=== PATIENT | female | born 2000 | race Caucasian/White ===

== ENCOUNTER 2024-01-17 17:25 | Outpatient (OUT) | payer MEDICAID, SELFPAY ==
--- NOTE | 2024-01-17 17:35 | US_ITS ---
The [address] [address] Patient Name: STEPHANIE ALLEN MRN: [id number] date: 2000 Sex: F Assigned Patient Location: Current Patient Location: Accession/Order Number: [id number] Exam Date: 01/17/2024 17:40 Report Date: 01/18/2024 07:45 At the request of: GUALBERTO VANN Procedure: US pelvis w/ transvaginal EXAM: Pelvic ultrasound HISTORY: . Amenorrhea,N91.2; Pelvic cramping,R10.2 . COMPARISON: None. TECHNIQUE: Transabdominal and transvaginal scanning was performed FINDINGS: Scanning of the pelvis demonstrates uterus to be anteverted and measures 9.2 x 3.4 x 5.9 cm. Endometrial complex measures 4 mm. Right ovary measures 3.9 x 1.7 x 2.3 cm. Color-flow is noted. No masses are noted. Left ovary measures 3.1 x 1.5 x 2.2 cm. Color-flow is noted. No masses are noted. There is a small amount of fluid in the cul-de-sac. US/US pelvis w/ transvaginal IMPRESSION: 1. Normal-appearing uterus and endometrial complex. 2. Normal ovaries. 3. Small amount of fluid in the cul-de-sac. Electronically authenticated by: CADEN WHITE Date: 01/18/2024 07:45
== END 2024-01-17 17:26 | disposition home or self-care (01) ==
LOC: US 17:30
PROVIDERS: PCP Family Medicine; Visit Provider Specialist
DX: N91.2 Amenorrhea, unspecified (principal); R10.2 Pelvic and perineal pain
CPT/HCPCS: 76830; 76856

== ENCOUNTER 2024-06-24 12:33 | Outpatient (OUT) | payer MEDICAID, SELFPAY ==
[2024-06-24 14:59] LABS: HCG Quantitative <1 mIU/mL
== END 2024-06-24 12:34 | disposition home or self-care (01) ==
PROVIDERS: PCP Family Medicine
DX: N91.2 Amenorrhea, unspecified (principal)
CPT/HCPCS: 36415; 84702

== ENCOUNTER 2024-07-01 13:33 | Outpatient (OUT) | payer MEDICAID, SELFPAY ==
[2024-07-01 15:04] LABS: HCG Quantitative <1 mIU/mL
== END 2024-07-01 13:34 | disposition home or self-care (01) ==
LOC: LAB 13:34
PROVIDERS: PCP Family Medicine; Visit Provider Specialist
DX: N91.2 Amenorrhea, unspecified (principal)
CPT/HCPCS: 36415; 84702

== ENCOUNTER 2024-07-02 10:45 | Outpatient (OUT) | payer MEDICAID, SELFPAY ==
--- NOTE | 2024-07-02 10:54 | US_ITS ---
[address] [address] Patient Name: STEPHANIE ALLEN MRN: [id number] date: 2000 Sex: F Assigned Patient Location: [facility] Current Patient Location: Accession/Order Number: [id number] Exam Date: 07/02/2024 10:56 Report Date: 07/03/2024 05:53 At the request of: GUALBERTO VANN Procedure: US pelvis w/ transvaginal EXAMINATION: US pelvis w/ transvaginal HISTORY: Pelvic Pain In Female R10.2 COMPARISON: Ultrasound pelvis 01/17/2024 TECHNIQUE: Transabdominal and/or transvaginal sonographic examination was performed as indicated by examination type. FINDINGS: UTERUS: Normal size and appearance. Uterus size: 7.7 x 3.3 x 4.9 cm ENDOMETRIUM: Normal homogeneous appearance. Endometrial thickness: 2 mm RIGHT OVARY: Normal size and appearance. Duplex Doppler demonstrates normal waveform and flow; resistive index 0.5. Ovary size: 3.0 x 1.2 x 2.1 cm LEFT OVARY: Normal size and appearance. Duplex Doppler demonstrates normal waveform and flow; resistive index 0.4. Ovary size: 3.0 x 1.8 x 1.9 cm CUL-DE-SAC: Unremarkable. No significant free fluid. BLADDER: Unremarkable. OTHER: None. US/US pelvis w/ transvaginal IMPRESSION: 1. Normal pelvic ultrasound. Electronically authenticated by: JESSICA GUPTA Date: 07/03/2024 05:53
== END 2024-07-02 10:46 | disposition home or self-care (01) ==
LOC: RAD 10:49
PROVIDERS: PCP Family Medicine; Visit Provider Specialist
DX: R10.2 Pelvic and perineal pain (principal)
CPT/HCPCS: 76830; 76856

== ENCOUNTER 2024-11-29 16:25 | Outpatient (OUT) | payer MEDICAID, SELFPAY ==
--- OUTSIDE RECORDS SUMMARY | 2024-11-29 16:34 | XMS_ITS | CCD ---
Author Organization [facility] Care Team Providers Care Iphone Developer Name Role Phone SREEKANTH JOHNSON Unavailable Unavailable SELF, REFERRED Unavailable Unavailable SELF, REFERRED Unavailable Unavailable LENA REDDY Unavailable Unavailable Margarita Chiu Attending Physician Unavailable Unavailable Primary Care Provider UnavailZully Andujar Unavailable Unavailable Primary Care Provider Unavailko ledesma Unavailable Primary Care Provider UnavailDIANNA Redmond Referring Unavailable DIANNA VILLA Attending Unavailable Wesly KEEN Attending Unavailable Wesly KEEN Attending Unavailable Katie THAPA Primary Care Unavailable MARGOT BLACKMAN Referring Unavailable MARGOT BLACKMAN Attending Unavailable Katie THAPA Primary Care Unavailable JOE AN Attending Unavailable Katie THAPA Primary Care Unavailable Katie THAPA Referring Unavailable ALANIS, DR Diane CASTILLO Attending Unavailable KAMAGUI, DR Diane CASTILLO Consulting Unavailable KAFTAN, DR Diane CASTILLO Primary Care Unavailable KAMARENAN, DR Diane CASTILLO Admitting Unavailable PAY ., DR SINGH Attending Unavailable PAY ., DR SINGH Consulting Unavailable PAY ., DR SINGH Admitting Unavailable KAMAGUI, DR Diane CASTILLO Primary Care Unavailable KAMAGUI, DR Diane CASTILLO Attending Unavailable KAMAGUI, DR Diane CASTILLO Consulting Unavailable ALANIS, DR Diane CASTILLO Primary Care Unavailable KAMAGUI, DR Diane CASTILLO Admitting Unavailable MISC, DR PATTEN Attending Unavailable MISC, DR PATTEN Consulting Unavailable MISC, DR PATTEN Admitting Unavailable KAMAGUI, DR Diane CASTILLO Primary Care Unavailable MISC, DR PATTEN Admitting Unavailable MISC, DR PATTEN Attending Unavailable MISC, DR PATTEN Consulting Unavailable ALANIS, DR Diane CASTILLO Primary Care Unavailable Crtalic IVETKerry Unavailable Arti Barahona Unavailable DO Katie Thapa Primary Care Provider MD Jona Vann Attending Provider [phone] DO Katie Thapa Primary Care Provider [phone] MD Jona Vann Attending Provider [phone] Patricia Salas Unavailable DO Katie Thapa Primary Care Provider [phone] MD Jona Vann Attending Provider DO Pérez Barcenas Attending Provider [phone] Pérez Barcenas Unavailable DO Katie Thapa Primary Care Provider MD Yung Nichols Jr Emergency Provider Unavailable Primary Care Provider UnavailJona Garza Attending Unavailable Katie Thapa Primary Care Unavailable Jona Vann Admitting Unavailable Jona Vann Attending Unavailable Katie Thapa Primary Care Unavailable Jona Vann Admitting Unavailable Jona Vann Attending Unavailable Katie Thapa Primary Care Unavailable Jona Vann Admitting Unavailable Yung Nichols Jr Attending Unavailable Katie Thapa Primary Care Unavailable Yung Nichols Jr Admitting Unavailable Katie Thapa Primary Care Unavailable Pérez Barcenas Admitting Unavailable Pérez Barcenas Attending Unavailable Anil Thapa DO Primary Care Provider ÁNGELA DELGADO Attending Unavailable ÁNGELA DELGADO Attending Unavailable SELF Referring Unavailable ÁNGELA DELGADO Attending Unavailable MARY ANN LEVIN Attending Unavailable CristobalKerry Coates RD Unavailable [phone] TIESHA RAI Attending Unavailable ANIL THAPA JR R Referring Unavailable KAFTAN JR, ANIL R Primary Care Unavailable TIESHA RAI Attending Unavailable ANIL THAPA JR R Referring Unavailable KAFTAN JR, ANIL R Primary Care Unavailable MICH VERDE Attending Unavailable KAFTAN JR, ANIL R Referring Unavailable KAFTAN JR, ANIL R Primary Care Unavailable TIESHA RAI Attending Unavailable ALANIS ROGER, ANIL R Referring Unavailable BONITAFTDENISSE ROGER, ANIL R Primary Care Unavailable MICH VERDE Attending Unavailable ALANIS ROGER, ANIL R Referring Unavailable KAFTAN JR, ANIL R Primary Care Unavailable VU, OSBALDO-CATIE Attending Unavailable KAMARENAN , ANIL R Referring Unavailable KAFTAN JR, ANIL R Primary Care Unavailable KAMARENAN JR, ANIL R Referring Unavailable KAFTAN JR, ANIL R Primary Care Unavailable MICH VERDE Attending Unavailable KAMARENAN JR, ANIL R Referring Unavailable KAFTAN JR, ANIL R Primary Care Unavailable Alanis Sky, Anil HERMOSILLO Primary Care Provider ANIL THAPA Attending Unavailable ANIL THAPA Referring Unavailable ANIL THAPA Attending Unavailable ANIL THAPA R Referring Unavailable JONA VANN Attending Unavailable JONA VANN Referring Unavailable HARMONY GERMAN Attending Unavailable ANIL THAPA Referring Unavailable RYANN ZHANG Attending Unavailable RYANN ZHANG Referring Unavailable HARMONY GERMAN Attending Unavailable JONA VANN Attending Unavailable ANIL THAPA Attending Unavailable JONA VANN Attending Unavailable CADEN THOMAS Attending Unavailable ALANIS ROGER, ANIL R Primary Care Unavailable VU, OSBALDO CATIE Attending Unavailable ALANIS ROGER, ANIL R Referring Unavailable KAMARENAN , ANIL R Primary Care Unavailable VU, OSBALDO-CATIE Attending Unavailable ALANIS ROGER, ANIL R Referring Unavailable KAMARENAN , ANIL R Primary Care Unavailable TIESHA RAI Referring Unavailable DIAAN , ANIL R Primary Care Unavailable EMILIA CONKLIN Attending Unavailable ALANIS ROGER, ANIL R Primary Care Unavailable MICH VERDE Admitting Unavailable MICH VERDE Attending Unavailable ALANIS ROGER, ANIL R Primary Care Unavailable MICH VERDE Referring Unavailable ALANIS ROGER, ANIL R Primary Care Unavailable ALANIS ROGER, ANIL R Referring Unavailable DIAAN , ANIL R Primary Care Unavailable VU, OSBALDO-CATIE Admitting Unavailable VU, OSBALDO-CATIE Attending Unavailable ALANIS ROGER, ANIL R Primary Care Unavailable Anil Thapa DO Primary Care Provider AKIKO ACOSTA Attending Unavailable ANIL THAPA Primary Care Unavailable ANIL THAPA R Primary Care Unavailable JONA VANN Referring Unavailable Alanis Sky, Anil HERMOSILLO Primary Care Provider U navailable Allergies Allergy Classification Reported Allergen(s) Allergy Type Date of Onset Reaction(s) Facility (1 source) lactose Drug Allergy 02-15-20 17 [facility] Repository (20 sources) Cyproheptadine; Translations: [CYPROHEPTADINE ] Drug Allergy 08-02-20 13 Diarrhea, Other: See Comments, Other (See Comments) [facility] (20 sources) Seasonal allergy; Translations: [SEASONAL ALLERGIES] Propensity to adverse reactions 12-25-19 10 [facility] (20 sources) Doxycycline; Translations: [DOXYCYCLINE] Drug Allergy 11-29-19 22 Other: See Comments, rash, Dizziness, Dizziness or Vertigo, Other (See Comments) [facility] Work Phone: (20 sources) Penicillin G; Translations: [PENICILLIN G SODIUM] Drug Allergy 11-29-19 22 Rash [facility] Work Phone: (20 sources) Penicillins; Translations: [Penicillins] Allergy to substance 08-03-20 23 Unknown Reaction, Unknown Reaction, rash [facility] (20 sources) Azithromycin; Translations: [azithromycin] Drug Allergy 08-17-20 23 Unknown Reaction [facility] (20 sources) oxyCODONE; Translations: [oxycodone] Drug Allergy 08-17-20 23 Palpitations [facility] (5 sources) Penicillin Drug Allergy rash BAUNAT Other (1 source) Doxycycline Drug Allergy 06-27-20 24 [facility] Repository (17 sources) Penicillin G sodium Allergy to substance 11-29-19 22 Rash [facility] (20 sources) Levonorgestrel- Ethinyl Estrad; Translations: [LEVONORGESTREL -ETHINYL ESTRAD] Drug Intolerance 12-25-19 10 Other (See Comments) [facility] (10 sources) Pollen; Translations: [POLLEN EXTRACTS] Propensity to adverse reactions to drug (disorder) 08-20-20 24 Other (See Comments) [facility] Repository Medications Current Medications Medication Drug Class(es) Dates Sig (Normalized) Sig (Original) acetaminophen 250 mg / aspirin 250 mg / caffeine 65 mg oral tablet (2 sources) Platelet Aggregation Inhibitor, Nonsteroidal Anti-inflammatory Drug, Central Nervous System Stimulant, Methylxanthine take 2 tablets by mouth every twenty-four hours Excedrin Migraine 250-250-65 MG 2 tablets Orally Once a day Active acetaminophen 325 mg / HYDROcodone bitartrate 5 mg oral tablet (2 sources) Opioid Agonist Start: 08-27-2024 End: 08-30-2024 HYDROcodone-acet aminophen (NORCO) 5-325 mg per tablet Indications: Acute post-operative pain Take 1 tablet by mouth every 4 (four) hours as needed for pain for up to 3 days. Max Daily Amount: 6 tablets 18 tablet 08/27/2024 08/30/2024 Active Start: 06-28-2024 take 1 tablet by tucker th every six hours Hydrocodone-Acetaminophen Active 1 - 2 T AB PO Q6H 15 June 28, 2024 adapalene 0.001 mg/mg topical gel (7 sources) Retinoid Start: 08-16-2023 adapalene (DIF FERIN) 0.1 % gel Indications: Acne vulgaris Apply to all acne-prone areas at bedtime. 45 g 5 08/16/2023 Active Comment on above: Apply to all acne-pr one areas at bedtime. betamethasone 0.5 mg/ml / clotrimazole 10 mg/ml topical cream (13 sources) Azole Antifungal, Corticosteroid Start: 12-26-2023 End: 01-25-2024 clotrimazole-betamet hasone (LOTRISONE) cream Apply 1 application to affected area two times a day. 45 g 11 12/26/2023 01/25/2024 Active Start: 06-27-2023 End: 08-20-2024 clotrimazole-betamethasone ( LOTRISONE) cream Indications: Otomycosis Apply 1 Application topically in the morning and 1 Application before bedtime. Apply to external auditory canals twice daily for 1 week then twice weekly thereafter.. 30 g 3 06/27/2023 08/20/2024 Discontinued (Therapy completed) Comment on above: Apply 1 application to affected area two times a day. cephalexin 500 mg oral capsule (15 sources) Cephalosporin Antibacterial Start: take 1000 mg by mouth twice daily Cephalexin Active 1000 MG PO Twice daily 05 05June 28, 2024 12:00am Start: 12-01-2021 End: 08-20-2022 cephALEXin (KEFLEX) 500 mg c apsule Take 500 capsules by mouth as needed. 0 12/01/2021 08/20/2022 Discontinued (Course of therapy completed) Comment on above: Take 500 capsules by mouth as needed. ciprofloxacin 500 mg oral tablet (1 source) Quinolone Antimicrobial Start: 10-29-19 End: 11-03-19 take 1 tablet by mouth in the morning ciprofloxacin (Cipro) 500 MG tablet Indications: Acute vaginitis Take 1 tablet (500 mg) by mouth in the morning and 1 tablet (500 mg) before bedtime. Do all this for 5 days. 10 tablet 1 10/29/2024 11/03/2024 Active ciprofloxacin 3 mg/ml / dexamethasone 1 mg/ml otic suspension (3 sources) Corticosteroid, Quinolone Antimicrobial Start: 03-18-20 End: 03-23-20 ciprofloxacin-dexAME THasone (CIPRODEX) otic suspension Indications: Otomycosis , Dysfunction of right eustachian tube , Acute right otitis media Administer 4 drops into both ears in the morning and 4 drops before bedtime. Do all this for 5 days. 7.5 mL 03/18/2024 03/23/2024 Active Start: 06-09-2023 Ciprofloxacin- dexAMETHasone 0.3-0.1 % 4 drops into affected ear Otic Twice a day for 7 days Jun, Not-Taking/PRN clindamycin 10 mg/ml topical solution (20 sources) Lincosamide Antibacterial Start: 10-13-2024 clindamycin (Cleocin T) 1 % external solution APPLY TO AFFECTED AREAS ON FACE ONCE A DAY 10/13/2024 Active Start: 12-26-2023 End: 09-12-2024 clindamycin (CLEOCIN) 1 % ex ternal solution Indications: Acne vulgaris APPLY TO AFFECTED AREAS ON FACE ONCE A DAY 60 mL 3 09/12/2024 Active Start: 09-12-2022 End: 05-05-2023 clindamycin (CLEOCIN) 1 % ex ternal solution Indications: Acne vulgaris Apply to the affected area of face once daily. 60 mL 5 05/05/2023 Active Start: 08-17-2022 End: 08-20-2024 clindamycin (CLEOCIN T) 1 % lotion Apply 1 application. topically in the morning. 08/17/2022 08/20/2024 Discontinued (Therapy completed) Start: 06-01-2022 End: 08-17-2022 clindamycin (CLEOCIN) 1 % ex ternal solution Indications: Acne vulgaris Apply to the affected area of acne twice daily. 60 mL 5 06/01/2022 08/17/2022 Discontinued Start: 03-17-2022 End: 09-12-2022 Clindamycin Phosphate (CLEOC IN T) 1 % lotion Indications: Acne vulgaris Apply to facial area daily at bedtime. 60 mL 5 08/17/2022 09/12/2022 Discontinued (Side Effects) Start: 08-30-2021 End: 03-17-2022 clindamycin (CLEOCIN) 1 % ex ternal solution Indications: Acne vulgaris Apply to the affected area once daily in the morning. 60 mL 5 03/16/2022 03/17/2022 Discontinued clindamycin (CASTILLO OCIN T) 1 % external solution Apply 1 Application topically nightly. Active Clindamycin Phos phate Active Comment on above: Apply to the affecte d area once daily in the morning. Apply to facial area daily in the morning Apply to the affecte d area of acne twice daily. Apply to facial area daily at bedtime. Apply to the affecte d area of face once daily in AM Apply to the affecte d area of face once daily. Condoms - Male misc (2 sources) Start: 10-29-2024 Condoms - Male misc Indications: Acute vaginitis 1 Units Daily 10 Units 2 10/29/2024 Active dapsone 0.05 mg/mg topical gel (7 sources) Sulfone Start: 05-05-2023 End: 05-04-2024 Dapsone (ACZONE) 5 % gel Indications: Acne vulgaris Apply to affected area every morning. 60 g 5 05/05/2023 05/04/2024 Active Start: 01-04-2023 Dapsone (ACZON E) 5 % gel Indications: Acne vulgaris Apply to affected area every morning. 60 g 3 01/04/2023 Active Comment on above: Apply to affected ar ea every morning. fluticasone propionate 0.05 mg/actuat metered dose nasal spray (1 source) Corticosteroid Start: take 1 spray(s) nasal route once daily Fluticasone Propionate 50 MCG/ACT 1 spray in each nostril Nasally Once a day for 14 day(s) Jun, Active ibuprofen 600 mg oral tablet (10 sources) Nonsteroidal Anti-inflammatory Drug Start: take 600 mg by mouth every eight hours Ibuprofen Active 600 MG PO Q8H June 28, 2024 12:00am Start: 08-17-2023 End: 06-27-2024 take 800 mg by mouth every six hours Ibuprofen Discontinued 800 MG PO Q6H August 17, 2023 1:00am June 27, 2024 10:19pm Start: 09-19-2017 End: 08-03-2023 Ibuprofen Discontinued 600 M G PO Q8H September 19, 2017 1:00am August 03, 2023 4:04pm do not exceed 4 doses in a 24 hour period 24 hr methylphenidate hydrochloride 18 mg extended release oral tablet (20 sources) Central Nervous System Stimulant Start: 09-18-2024 End: 10-21-2024 take 1 tablet by mouth in the morning methylphenidate ER (Concerta) 18 MG CR tablet Indications: Attention deficit hyperactivity disorder (ADHD), combined type (CMS/HCC) Take 1 tablet (18 mg) by mouth in the morning. Do not crush, chew, or split.. 30 tablet 10/21/2024 Active Start: 05-17-2024 End: 08-16-2024 take 1 tablet by mouth in the morning methylphenidate ER (Concerta) 18 MG CR tablet Indications: Attention deficit hyperactivity disorder (ADHD), combined type (CMS/HCC) Take 1 tablet (18 mg) by mouth in the morning. Do not crush, chew, or split.. 30 tablet 06/17/2024 Active Start: 12-19-2023 End: 01-18-2024 take 1 tablet by mouth once daily methylphenidate HCl (CONCERTA) 18 mg CR tablet Take 1 tablet (18 mg total) by mouth daily. 0 12/19/2023 01/18/2024 Active Comment on above: Take 18 mg by mouth once daily. methylPREDNISolone (5 sources) Corticosteroid Start : 09-03 methylPREDNISolone (MEDROL, BR[place]FORD,) 4 mg tablet Indications: Tongue swelling follow package directions 21 tablet 09/03/2024 Active metroNIDAZOLE 500 mg oral tablet (2 sources) Nitroimidazole Antimicrobial Start : 08-17 End: 08-24 take 1 tablet by mouth in the morning, then take 1 tablet by mouth at bedtime metroNIDAZOLE (FLAGYL) 500 mg tablet Take 1 tablet (500 mg total) by mouth in the morning and 1 tablet (500 mg total) before bedtime. 08/17/2024 08/24/2024 Active ondansetron 4 mg disintegrating oral tablet (20 sources) Serotonin-3 Receptor Antagonist Start : 11-16 take 1 tablet by mouth every eight hours as needed for nausea and vomiting ondansetron ODT (Zofran-ODT) 4 MG disintegrating tablet Take 4 mg by mouth every 8 (eight) hours if needed for nausea or vomiting 11/16/2024 Active Start: 11-16-2024 take 1 tablet by tucker th three times daily as needed for nausea ondansetron (ZOFRAN-ODT) 4 MG disintegrating tablet Take 1 tablet by mouth 3 times daily as needed for Nausea or Vomiting 21 tablet 11/16/2024 Active Start: 11-16-2024 End: 11-16-2024 4 mg, IntraVENous, ONCE, 1 d ose, On 11/16/24 at 0115 Start: 09-23-2023 End: 08-20-2024 take 1 tablet by mouth every eight hours as needed for nausea ondansetron ODT (ZOFRAN ODT) 4 mg disintegrating tablet Dissolve 1 tablet (4 mg total) on tongue every 8 (eight) hours as needed for nausea for up to 10 doses. 10 tablet 09/23/2023 08/20/2024 Discontinued (Therapy completed) Start: 12-15-2021 End: 08-20-2022 take 1 tablet by mouth every four hours as needed ondansetron orally disintegrating (ZOFRAN ODT) 4 mg disintegrating tablet DISSOLVE 1 TABLET IN MOUTH EVERY 4 HOURS NEEDED 0 12/15/2021 08/20/2022 Discontinued Start: 12-01-2021 End: 08-03-2023 take 4 mg by mouth every six hours Ondansetron Discontinued 4 MG PO Q6H December 01, 2021 1:00am August 03, 2023 4:04pm Start: 11-30-2021 End: 08-03-2023 take 4 mg by mouth every eight hours Ondansetron Discontinued 4 MG PO Q8H November 30, 2021 1:00am August 03, 2023 4:04pm Comment on above: DISSOLVE 1 TABLET IN MOUTH EVERY 4 HOURS NEEDED pimecrolimus 10 mg/ml topical cream (20 sources) Calcineurin Inhibitor Immunosuppressant Start: 2021 pimecrolimus (ELIDEL) 1 % cream Indications: Other eczema APPLY 2 TIMES DAILY TO FACIAL AREAS NEEDED FOR RASH/ITCHING 30 g 3 09/12/2022 Active Comment on above: APPLY 2 TIMES DAILY TO FACIAL AREAS NEEDED FOR RASH/ITCHING sulfacetamide sodium 100 mg/ml / sulfur 50 mg/ml topical lotion (7 sources) Sulfonamide Antibacterial Start: 2022 Sulfacetamide Sodium-Sulfur 10-5 % (w/w) lotn Indications: Acne vulgaris Apply to all acne-prone areas twice daily 60 g 5 08/16/2023 Active Comment on above: Apply to all acne-pr one areas twice daily sulfamethoxazole 800 mg / trimethoprim 160 mg oral tablet (1 source) Dihydrofolate Reductase Inhibitor Antibacterial, Sulfonamide Antimicrobial Start: 2023 End: 2023 take 1 tablet by mouth once in the morning sulfamethoxazole-tr imethoprim (BACTRIM DS) 800-160 mg per tablet Take 1 tablet by mouth in the morning and 1 tablet before bedtime. Do all this for 7 days. 14 tablet 03/07/2024 03/14/2024 Active terbinafine 250 mg oral tablet (3 sources) Allylamine Antifungal Start: 2023 End: 2023 take 1 tablet by mouth once daily terbinafine HCl (LAMISIL) 250 mg tablet Take 1 tablet by mouth once daily. 90 tablet 0 11/21/2023 02/19/2024 Active Comment on above: Take 1 tablet by tucker once daily. terconazole 4 mg/ml vaginal cream (3 sources) Azole Antifungal Start: 2024 End: 2024 terconazole (Terazol 7) 0.4 % vaginal cream Indications: Vulvovaginal Candidiasis Insert 1 applicator into the vagina at bedtime for 7 days 45 g 2 10/23/2024 10/30/2024 Active triamcinolone acetonide 1 mg/ml topical cream (4 sources) Corticosteroid Start: 2024 triamcinolone (Kenalog) 0.1 % cream Indications: Vaginal burning Apply topically 2 (two) times a day 30 g 2 10/23/2024 Active Completed/Discontinued Medications Medication Drug Class(es) Dates Sig (Normalized) Sig (Original) acetaminophen 325 mg / butalbital 50 mg / caffeine 40 mg oral capsule (5 sources) Barbiturate, Central Nervous System Stimulant, Methylxanthine Start: 11-30-2021 End: 08-03-2023 take 1 capsule by mouth every six hours Butalbital-Acetamin ophen-Caff Discontinued 1 CAP PO Q6H November 30, 2021 1:00am August 03, 2023 4:04pm 12 hr acetaZOLAMIDE 500 mg extended release oral capsule (5 sources) Carbonic Anhydrase Inhibitor Start: 11-17-2022 End: 06-01-2023 acetaZOLAMIDE SR (DIAMOX SEQUELS) 500 mg capsule Take 1 at bedtime. Can increase to bid after 1 month only if needed 60 capsule 5 11/17/2022 06/01/2023 Discontinued Comment on above: Take 1 at bedtime. C an increase to bid after 1 month only if needed amoxicillin 500 mg oral capsule (2 sources) Penicillin-class Antibacterial Start: 06-09-2023 take 1 capsule by mouth every eight hours Amoxicillin 500 MG 1 capsule Orally three times a day for 10 day(s) Jun, Not-Taking/PRN azithromycin 500 mg oral tablet (5 sources) Macrolide Antimicrobial Start: 08-03-2023 End: 08-17-2023 take 1 tablet by mouth once daily Azithromycin (Zithromax) 500 mg tablet Discontinued 500 MG PO Daily 7 7 August 03, 2023 12:00am August 17, 2023 4:57pm cetirizine hydrochloride 10 mg oral tablet (5 sources) Histamine-1 Receptor Antagonist Start: 03-05-2024 End: 07-17-2024 take 1 tablet by mouth once daily as needed cetirizine (ZyrTEC) 10 MG tablet Indications: Rash and nonspecific skin eruption TAKE 1 TABLET (10 MG) BY MOUTH DAILY NEEDED 30 tablet 03/05/2024 07/17/2024 Discontinued ciclopirox 80 mg/ml topical solution (14 sources) Start: 11-29-2021 End: 08-20-2022 Ciclopirox (LOPROX) 8 % solution APPLY 1 APPLICATION EXTERNALLY EVERY DAY 0 11/29/2021 08/20/2022 Discontinued Comment on above: APPLY 1 APPLICATION EXTERNALLY EVERY DAY cyclobenzaprine hydrochloride 10 mg oral tablet (14 sources) Muscle Relaxant Start: 11-29-2021 End: 08-20-2022 take 1 tablet by mouth three times daily cyclobenzaprine (FLEXERIL) 10 mg tablet Take 10 mg by mouth three times daily. 0 11/29/2021 08/20/2022 Discontinued (Course of therapy completed) Comment on above: Take 10 mg by mouth three times daily. diphenhydrAMINE hydrochloride 25 mg oral capsule (14 sources) Histamine-1 Receptor Antagonist Start: 12-22-2021 End: 08-20-2022 take 1-2 capsules by mouth at bedtime diphenhydrAMINE (BENADRYL) 25 mg capsule Take 1-2 po at bedtime 60 capsule 5 12/22/2021 08/20/2022 Discontinued (Course of therapy completed) Comment on above: Take 1-2 po at bedti me doxycycline monohydrate 100 mg oral tablet (3 sources) Tetracycline-class Drug Start: 08-17-2022 End: 09-12-2022 take 1 tablet by mouth once daily doxycycline monohydrate 100 mg tablet Indications: Acne vulgaris Take 1 tablet by mouth once daily. 30 tablet 1 08/17/2022 09/12/2022 Discontinued (Side Effects) Comment on above: Take 1 tablet by tucker once daily. 2 ml droperidol 2.5 mg/ml injection (1 source) Dopamine-2 Receptor Antagonist Start: 11-16-2024 End: 11-16-2024 1.25 mg, IntraVENous, ONCE, 1 dose, On 11/16/24 at 0215 Start: 11-16-2024 End: 11-16-2024 1.25 mg, IntraVENous, ONCE, 1 dose, On 11/16/24 at 0215 Ethinyl Estradiol / Levonorgestrel (14 sources) Progestin, Estrogen, Progestin-containing Intrauterine Device Start: 11-29-2021 End: 08-20-2022 take 0.02 tablet by mouth once daily BALCOLTRA 0.1 mg-0.02 mg (21)/36.5 mg(7) tab Take 1 tablet by mouth once daily. 0 11/29/2021 08/20/2022 Discontinued (Course of therapy completed) Start: 11-29-2021 take 0.02 tablet by mouth once daily BALCOLTRA 0.1 mg-0.02 mg (21)/36.5 mg(7) tab Take 1 tablet by mouth once daily. 0 11/29/2021 Active Comment on above: Take 1 tablet by tukcer once daily. iopamidol (ISOVUE-370) 76 % injection 75 mL (1 source) Start: End: take 1 dose intravenously once 75 mL, IntraVENous, IMG ONCE PRN, 1 dose, Starting on 11/16/24 at 0134, Until 11/16/24 at 0153, Other 1 ml ketorolac tromethamine 15 mg/ml cartridge (15 sources) Nonsteroidal Anti-inflammatory Drug, Cyclooxygenase Inhibitor Start: End: 15 mg, IntraVENous, ONCE, 1 dose, On 11/16/24 at 0115, Do not administer for more than 5 days. Start: 12-15-2021 End: 08-20-2022 take 1 tablet by mouth once daily keTORolac (TORADOL) 10 mg tablet Take 10 mg by mouth once daily. 0 12/15/2021 08/20/2022 Discontinued (Course of therapy completed) Comment on above: Take 10 mg by mouth once daily. 1 ml medroxyPROGESTERone acetate 150 mg/ml prefilled syringe (15 sources) Progestin Start: 0 End: medroxyPROGESTERone (DEPO-PROVERA) 150 mg/mL INJECT 1ML INTRAMUSCULARLLY EVERY 12 WEEKS 0 06/11/2020 08/20/2022 Discontinued (Course of therapy completed) medroxyPROGESTER one Acetate Active Comment on above: INJECT 1ML INTRAMUSC ULARLLY EVERY 12 WEEKS methylergonovine maleate 0.2 mg oral tablet (5 sources) Ergot Derivative Start: 2022 End: 2022 take 1 tablet by mouth three times daily Methylergonovine (Methergine) 0.2 mg tablet Discontinued 0.2 MG PO Three times daily 6 2 August 03, 2023 12:00am August 17, 2023 4:57pm minocycline 100 mg oral capsule (16 sources) Tetracycline-class Drug Start: 2021 End: 2021 take 1 capsule by mouth twice daily minocycline (MINOCIN) 100 mg capsule Indications: Acne vulgaris Take 1 capsule by mouth twice daily. 60 capsule 5 06/01/2022 08/17/2022 Discontinued Start: 02-19-2021 End: 01-07-2022 take 1 capsule by mouth twice daily minocycline (MINOCIN) 100 mg capsule Indications: Acne vulgaris Take 1 capsule by mouth twice daily. 60 capsule 5 01/07/2022 Active Minocycline HCl Active Comment on above: Take 1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 Monocytes/100 WBC (Bld) 4 % Normal 4-8 M [facility] Comment on above: Performed By: #### L IP, TROPI, CDP, HCG, CP #### [facility] [address] [place], [place] [phone] Drone Pilot: Caden Brown MD Neutrophil (Seg) 81 % High 47-75 [facility] Comment on above: Performed By: #### L IP, TROPI, CDP, HCG, CP #### [facility] [address] [place] [address] Drone Pilot: Caden Brown MD Platelet mean volume (Bld) [Entitic vol] 9.6 fL Normal 6.0-12.0 [facility] Comment on above: Performed By: #### L IP, TROPI, CDP, HCG, CP #### [facility] [address] [place] [phone] Drone Pilot: Caden Brown MD Platelets (Bld) [#/Vol] 243 10*3/uL Normal 140-450 [facility] Comment on above: Performed By: #### L IP, TROPI, CDP, HCG, CP #### [facility] [address] [place] [address] [phone] Drone Pilot: Caden Brown MD RBC (Bld) [#/Vol] 4.79 10*6/uL Normal 4.00-5.20 [facility] Comment on above: Performed By: #### L IP, TROPI, CDP, HCG, CP #### [facility] [address] [place] [address] [phone] Drone Pilot: Caden Brown MD WBC (Bld) [#/Vol] 11.8 10*3/uL High 3.5-11.0 [facility] Comment on above: Performed By: #### L IP, TROPI, CDP, HCG, CP #### [facility] [address] [place] [address] Drone Pilot: Caden Brown MD [facility] Albumin [Mass/Vol] 4.5 g/dL 3.5 - 5.2 g/dL [facility] ALP [Catalytic activity/Vol] 80 U/L 35 - 104 U/L [facility] ALT [Catalytic activity/Vol] 17 U/L 5 - 33 U/L [facility] Anion gap [Moles/Vol] 16 mmol/L 9 - 17 mmol/L [facility] AST [Catalytic activity/Vol] 19 U/L NINF - 32 U/L [facility] Bilirubin [Mass/Vol] 1.3 mg/dL High 0.3 - 1 .2 mg/dL [facility] Calcium [Mass/Vol] 9.7 mg/dL 8.6 - 10. 4 mg/dL [facility] Chloride [Moles/Vol] 101 mmol/L 98 - 10 7 mmol/L [facility] CO2 [Moles/Vol] 21 mmol/L 20 - 31 mmol/L [facility] Creatinine [Mass/Vol] 0.7 mg/dL 0.5 - 0.9 mg/dL [facility] Est, Glom Filt Rate - PINF [facility] Comment on above: These results are not intended for use in patients <18 years of age. eGFR results are calculated without a race factor using the 2020 CKD-EPI equation. Careful clinical correlation is recommended, particularly when comparing to results calculated using previous equations. The CKD-EPI equation is less accurate in patients with extremes of muscle mass, extra-renal metabolism of creatine, excessive creatine ingestion, or following therapy that affects renal tubular secretion. Glucose [Mass/Vol] 94 mg/dL 70 - 99 mg/dL [facility] Interpretation and review of laboratory results Abnormal [facility] Potassium [Moles/Vol] 3.2 mmol/L Low 3.7 - 5.3 mmol/L [facility] Protein [Mass/Vol] 7.4 g/dL 6.4 - 8.3 g/dL [facility] Sodium [Moles/Vol] 138 mmol/L 135 - 144 mmol/L [facility] Urea nitrogen [Mass/Vol] 15 mg/dL 6 - 20 mg/dL [facility] Urea nitrogen/Creatinine [Mass ratio] 21 mg/mg High 9 - 20 [facility] COVID-19, Rapidon 11-16-2024 SARS-CoV-2 (COVID-19) RdRp gene JANET+probe Ql (Resp) Not detected Not Detected [facility] Comment on above: Rapid NAAT: The specimen is NEGATIVE for SARS-CoV-2, the novel coronavirus associated with COVID-19. The ID NOW COVID-19 assay is designed to detect the virus that causes COVID-19 in patients with signs and symptoms of infection who are suspected of COVID-19. An individual without symptoms of COVID-19 and who is not shedding SARS-CoV-2 virus would expect to have a negative (not detected) result in this assay. Negative results should be treated as presumptive and, if inconsistent with clinical signs and symptoms or necessary for patient management, should be tested with an alternative molecular assay. Negative results do not preclude SARS-CoV-2 infection and should not be used as the sole basis for patient management decisions. Methodology: Isothermal Nucleic Acid Amplification Specimen Description .NASOPHARYNGEAL SWAB [facility] CT ABDOMEN PELVIS W IV CONTR Mejia 11-16-2024 CT ABDOMEN PELVIS W IV CONTRAST EXAMINATION: CT ABDOMEN PELVIS W IV CONTRAST, 11/16/2024 1:55 AM EST HISTORY: diffuse abd pain, rad to chest, n/v COMPARISON: None. TECHNIQUE: CT scan of the abdomen and pelvis was performed with IV contrast. CT dose reduction technique was used, including Automated Exposure Control. FINDINGS: The lung bases are clear. No fracture, malalignment, or other acute bony abnormality is seen. Mild focal fatty infiltration is noted in the left hepatic lobe medial segment, adjacent to the falciform ligament, of doubtful clinical significance. The liver, spleen, pancreas, adrenals, and kidneys are otherwise normal. The gallbladder is visualized. Fluid is noted throughout the lumen of the colon, including in the distal colon and rectum, which may be seen in patients with diarrhea. No bowel obstruction or bowel dilatation. Prior appendectomy appears to been performed. No sign of diverticulitis, appendicitis, or other acute inflammatory process. No abnormal fluid collection or free fluid. No enlarged lymph nodes. No aortic aneurysm or dissection. IMPRESSION: 1. Fluid throughout the lumen of the colon, including in the distal colon and rectum, which may be seen in patients with diarrhea. No bowel obstruction. 2. Otherwise normal CT, following prior appendectomy. No sign of diverticulitis, appendicitis, or other acute inflammatory process. IMPRESSION: Interpreted by: Сергей Cobian MD Signed by: Сергей Cobian MD 11/16/24 Final result Normal [facility] CT Abdomen and Pelvis W cont rast [place] 11-16-2024 1. Fluid throughout the lumen of the colon, including in the distal colon and rectum, which may be seen in patients with diarrhea. No bowel obstruction. 2. Otherwise normal CT, following prior appendectomy. No sign of diverticulitis, appendicitis, or other acute inflammatory process. IMPRESSION: [facility] CONSOLIDATED EXAMINATION: CT ABDOMEN PELVIS W IV CONTRAST, 11/16/2024 1:55 AM EST HISTORY: diffuse abd pain, rad to chest, n/v COMPARISON: None. TECHNIQUE: CT scan of the abdomen and pelvis was performed with IV contrast. CT dose reduction technique was used, including Automated Exposure Control. FINDINGS: The lung bases are clear. No fracture, malalignment, or other acute bony abnormality is seen. Mild focal fatty infiltration is noted in the left hepatic lobe medial segment, adjacent to the falciform ligament, of doubtful clinical significance. The liver, spleen, pancreas, adrenals, and kidneys are otherwise normal. The gallbladder is visualized. Fluid is noted throughout the lumen of the colon, including in the distal colon and rectum, which may be seen in patients with diarrhea. No bowel obstruction or bowel dilatation. Prior appendectomy appears to been performed. No sign of diverticulitis, appendicitis, or other acute inflammatory process. No abnormal fluid collection or free fluid. No enlarged lymph nodes. No aortic aneurysm or dissection. [facility] RIS CONSOLIDATED Сергей Cobian MD - 11/16/2024 EXAMINATION: CT ABDOMEN PELVIS W IV CONTRAST, 11/16/2024 1:55 AM EST HISTORY: diffuse abd pain, rad to chest, n/v COMPARISON: None. TECHNIQUE: CT scan of the abdomen and pelvis was performed with IV contrast. CT dose reduction technique was used, including Automated Exposure Control. FINDINGS: The lung bases are clear. No fracture, malalignment, or other acute bony abnormality is seen. Mild focal fatty infiltration is noted in the left hepatic lobe medial segment, adjacent to the falciform ligament, of doubtful clinical significance. The liver, spleen, pancreas, adrenals, and kidneys are otherwise normal. The gallbladder is visualized. Fluid is noted throughout the lumen of the colon, including in the distal colon and rectum, which may be seen in patients with diarrhea. No bowel obstruction or bowel dilatation. Prior appendectomy appears to been performed. No sign of diverticulitis, appendicitis, or other acute inflammatory process. No abnormal fluid collection or free fluid. No enlarged lymph nodes. No aortic aneurysm or dissection. IMPRESSION: 1. Fluid throughout the lumen of the colon, including in the distal colon and rectum, which may be seen in patients with diarrhea. No bowel obstruction. 2. Otherwise normal CT, following prior appendectomy. No sign of diverticulitis, appendicitis, or other acute inflammatory process. IMPRESSION: [facility] Radiology Study observation (narrative) [facility] Comp Metabolic Profon 2024 Albumin [Mass/Vol] 4.5 g/dL Normal 3.5-5.2 [facility] Comment on above: Performed By: #### L IP, TROPI, CDP, HCG, CP #### [facility] [address] [place] [address] Drone Pilot: Caden Brown MD Alkaline Phos 80 U/L Normal 35-104 [facility] Comment on above: Performed By: #### L IP, TROPI, CDP, HCG, CP #### [facility] [address] [place] [address] Drone Pilot: Caden Brown MD ALT [Catalytic activity/Vol] 17 U/L Normal 5-33 [facility] Comment on above: Performed By: #### L IP, TROPI, CDP, HCG, CP #### [facility] [address] [place], [place] [phone] Drone Pilot: Caden Brown MD Anion gap [Moles/Vol] 16 mmol/L Normal 9-17 [facility] Comment on above: Performed By: #### L IP, TROPI, CDP, HCG, CP #### [facility] [address] [place], [place] [phone] Drone Pilot: Caden Brown MD AST [Catalytic activity/Vol] 19 U/L Normal <32 [facility] Comment on above: Performed By: #### L IP, TROPI, CDP, HCG, CP #### [facility] [address] [place], [place] [phone] Drone Pilot: Caden Brown MD Bilirubin [Mass/Vol] 1.3 mg/dL High 0.3-1.2 [facility] Comment on above: Performed By: #### L IP, TROPI, CDP, HCG, CP #### [facility] [address] [place] [address] Drone Pilot: Caden Brown MD BUN/CRE Ratio 21 High 9-20 [facility] Comment on above: Performed By: #### L IP, TROPI, CDP, HCG, CP #### [facility] [address] [place] [address] Drone Pilot: Caden Brown MD Calcium [Mass/Vol] 9.7 mg/dL Normal 8.6-10.4 [facility] Comment on above: Performed By: #### L IP, TROPI, CDP, HCG, CP #### [facility] [address] [place], [place] [phone] Drone Pilot: Caden Brown MD Chloride [Moles/Vol] 101 mmol/L Normal 98-107 [facility] Comment on above: Performed By: #### L IP, TROPI, CDP, HCG, CP #### [facility] [address] [place], [place] [phone] Drone Pilot: Caden Brown MD CO2 [Moles/Vol] 21 mmol/L Normal 20-31 [facility] Comment on above: Performed By: #### L IP, TROPI, CDP, HCG, CP #### [facility] [address] [place], [place] [phone] Drone Pilot: Caden Brown MD Creatinine [Mass/Vol] 0.7 mg/dL Normal 0.5-0.9 [facility] Comment on above: Performed By: #### L IP, TROPI, CDP, HCG, CP #### [facility] [address] [place], [place] [phone] Drone Pilot: Caden Brown MD GFR/1.73 sq M.predicted among non-blacks MDRD (S/P/Bld) [Vol rate/Area] mL/min/{1.73_m2} Normal >60 [facility] Comment on above: Result Comment: These results are not intended for use in patients <18 years of age. eGFR results are calculated without a race factor using the 2020 CKD-EPI equation. Careful clinical correlation is recommended, particularly when comparing to results calculated using previous equations. The CKD-EPI equation is less accurate in patients with extremes of muscle mass, extra-renal metabolism of creatine, excessive creatine ingestion, or following therapy that affects renal tubular secretion. Performed By: #### L IP, TROPI, CDP, HCG, CP #### [facility] [address] [place] [address] Drone Pilot: Caden Brown MD Glucose [Mass/Vol] 94 mg/dL Normal 70-99 [facility] Comment on above: Performed By: #### L IP, TROPI, CDP, HCG, CP #### [facility] [address] [place], [place] [phone] Drone Pilot: Caden Brown MD Potassium [Moles/Vol] 3.2 mmol/L Low 3.7-5.3 [facility] Comment on above: Performed By: #### L IP, TROPI, CDP, HCG, CP #### [facility] [address] [place] [address] Drone Pilot: Caden Brown MD Protein [Mass/Vol] 7.4 g/dL Normal 6.4-8.3 [facility] Comment on above: Performed By: #### L IP, TROPI, CDP, HCG, CP #### [facility] [address] [place], [place] [phone] Drone Pilot: Caden Brown MD Sodium [Moles/Vol] 138 mmol/L Normal 135-144 [facility] Comment on above: Performed By: #### L IP, TROPI, CDP, HCG, CP #### [facility] [address] [place] [address] Drone Pilot: Caden Brown MD Urea nitrogen [Mass/Vol] 15 mg/dL Normal 6-20 [facility] Comment on above: Performed By: #### L IP, TROPI, CDP, HCG, CP #### [facility] [address] [place] [address] Drone Pilot: Caden Brown MD Flu A/B Ag Detectionon 11-16 Flu A Ag Detection Negative Normal NEG [facility] Comment on above: Result Comment: for Influenza A Antigen Performed By: #### F LUABA #### [facility] [address] [place] [address] Drone Pilot: Caden Brown MD Flu B Ag Detection Negative Normal NEG [facility] Comment on above: Result Comment: for Influenza B Antigen. Performed By: #### F LUABA #### [facility] [address] [place] [address] Drone Pilot: Caden Brown MD HCG Qualitative, Serumon HCG ( test) Ql Negative NEGATIVE B on [facility] Comment on above: Specimens with hCG l evels near the threshold of the test (25 mIU/mL) may give a negative or indeterminate result. In such cases, another test should be performed with a new specimen in 48-72 hours. If early is suspected clinically in this setting, correlation with quantitative serum b-hCG level is suggested. [facility] has confirmed the use of plasma for this test. This has not been cleared or approved by the U.S. Food and Drug Administration. The FDA has determined that such clearance is not necessary. [facility] HCG Screen, Bloodon 11-16-19 25 HCG Screen, Blood Negative Normal NEG [facility] Comment on above: Result Comment: Spec imens with hCG levels near the threshold of the test (25 mIU/mL) may give a negative or indeterminate result. In such cases, another test should be performed with a new specimen in 48-72 hours. If early is suspected clinically in this setting, correlation with quantitative serum b-hCG level is suggested. [facility] has confirmed the use of plasma for this test. This has not been cleared or approved by the U.S. Food and Drug Administration. The FDA has determined that such clearance is not necessary. Performed By: #### L IP, TROPI, CDP, HCG, CP #### [facility] [address] [place] [address] Drone Pilot: Caden Brown MD Lipaseon 11-16-2024 Lipase [Catalytic activity/Vol] 47 U/L 13 - 60 U/L [facility] Lipase [Catalytic activity/Vol] 47 U/L Normal 13-60 [facility] Comment on above: Performed By: #### L IP, TROPI, CDP, HCG, CP #### [facility] [address] [place], [place] [phone] Drone Pilot: Caden Brown MD No Panel Informationon 11-16 [facility] Portable XR Chest AP single viewon 11-16-2024 Normal chest. [facility] CONSOLIDATED CLINICAL HISTORY: Shortness of breath. Chest pain. CHEST PORTABLE AP VIEW: The lungs are clear. No pneumothorax. The pulmonary vascularity and cardiomediastinal silhouette are normal. No acute fracture is seen. [facility] CONSOLIDATED Сергей Cobian MD - 11/16/2024 CLINICAL HISTORY: Shortness of breath. Chest pain. CHEST PORTABLE AP VIEW: The lungs are clear. No pneumothorax. The pulmonary vascularity and cardiomediastinal silhouette are normal. No acute fracture is seen. IMPRESSION: Normal chest. [facility] Radiology Study observation (narrative) [facility] Portable XR Chest AP single viewOrdered By: Сергей Cobian on 11-16-2024 [facility] Work Phone: Rapid influenza A/B antigens on 11-16-2024 FLUAV Ag Ql (Unsp spec) Negative NEGATIVE B on [facility] Comment on above: for Influenza A Anti gen FLUBV Ag Ql (Unsp spec) Negative NEGATIVE B on [facility] Comment on above: for Influenza B Anti gen. [facility] [id number] 11-16-2024 SARS-CoV-2 (COVID-19) RNA JANET+probe Ql (Unsp spec) Not detected Normal [facility] Comment on above: Result Comment: Rapid NAAT: The specimen is NEGATIVE for SARS-CoV-2, the novel coronavirus associated with COVID-19. The ID NOW COVID-19 assay is designed to detect the virus that causes COVID-19 in patients with signs and symptoms of infection who are suspected of COVID-19. An individual without symptoms of COVID-19 and who is not shedding SARS-CoV-2 virus would expect to have a negative (not detected) result in this assay. Negative results should be treated as presumptive and, if inconsistent with clinical signs and symptoms or necessary for patient management, should be tested with an alternative molecular assay. Negative results do not preclude SARS-CoV-2 infection and should not be used as the sole basis for patient management decisions. Methodology: Isothermal Nucleic Acid Amplification Performed By: #### C OVRB #### [facility] [address] [place] [address] Drone Pilot: Caden Brown MD Troponinon 11-16-2024 Troponin I.cardiac High sensitivity method [Mass/Vol] ng/L 0 - 14 ng/L [facility] Comment on above: High Sensitivity Tro ponin values cannot be compared with other Troponin methodologies. [facility] Troponin, High Sens <6 Normal 0-14 [facility] Comment on above: Result Comment: High Sensitivity Troponin values cannot be compared with other Troponin methodologies. Performed By: #### L IP, TROPI, CDP, HCG, CP ####[facility] [id number] [place] [address] Lab Director: Caden Brown MD Urinalysison 11-16-2024 Bilirubin Ql (U) Negative NEGATIVE [facility] Clarity (U) Clear Clear [facility] Color (U) Yellow Yellow [facility] Comment [facility] Glucose Test strip (U) [Mass/Vol] Negative NEGATIVE mg/dL [facility] Hemoglobin Auto test strip Ql (U) Negative NEGATIVE [facility] Ketones (U) [Mass/Vol] Negative NEGAT WOODY mg/dL [facility] Leukocyte esterase Test strip Ql (U) Negative NEGATIVE [facility] Nitrite Ql (U) Negative NEGATIVE [facility] pH (U) 7.0 [pH] 5.0 - 8.0 [facility] Protein (U) [Mass/Vol] Negative NEGAT WOODY mg/dL [facility] Specific gravity (U) [Rel density] 1.010 1.005 - 1.030 [facility] Urobilinogen Qn (U) Normal 0.0 - 1. 0 EU/dL [facility] Urinalysis, Routineon 2024 Bilirubin, SemiQt,Ur Negative Normal NEG [facility] Comment on above: Performed By: #### U A #### [facility] [address] [place] [address] Drone Pilot: Caden Brown MD Blood, Urine Negative Normal NEG [facility] Comment on above: Performed By: #### U A #### [facility] [address] [place] [address] Drone Pilot: Caden Brown MD Clarity (U) Clear Normal CLEAR [facility] Comment on above: Performed By: #### U A #### [facility] [address] [place] [address] Drone Pilot: Caden Brown MD Color (U) Yellow Normal YEL [facility] Comment on above: Performed By: #### U A #### [facility] [address] [place] [address] Drone Pilot: Caden Brown MD Comment Normal [facility] Comment on above: Performed By: #### U A #### [facility] [address] [place], [place] [phone] Drone Pilot: Caden Brown MD Glucose Ql (U) Negative Normal NEG [facility] Comment on above: Performed By: #### U A #### [facility] [address] [place], [place] [phone] Drone Pilot: Caden Brown MD Ketones Ql (U) Negative Normal NEG [facility] Comment on above: Performed By: #### U A #### [facility] [address] [place], [place] [phone] Drone Pilot: Caden Brown MD Leukocyte esterase Test strip Ql (U) Negative Normal NEG [facility] Comment on above: Performed By: #### U A #### [facility] [address] [place], [place] [phone] Drone Pilot: Caden Brown MD Nitrite,Ur Negative Normal NEG [facility] Comment on above: Performed By: #### U A #### [facility] [address] [place], [place] [id number] Drone Pilot: Caden Brown MD PH,Ur 7.0 Normal 5.0-8.0 [facility] Comment on above: Performed By: #### U A #### [facility] [address] [place], [place] [phone] Drone Pilot: Caden Brown MD Protein Ql (U) Negative Normal NEG [facility] Comment on above: Performed By: #### U A #### [facility] [address] [place], [place] [phone] Drone Pilot: Caden Brown MD Spec. [place],Ur 1.010 Normal 1.005-1.030 [facility] Comment on above: Performed By: #### U A #### [facility] [address] [place], [place] [phone] Drone Pilot: Caden Brown MD Urobilinogen,Ur Normal Normal 0.0-1.0 [facility] Comment on above: Performed By: #### U A #### [facility] [address] [place] [address] Drone Pilot: Caden Brown MD XR CHEST PORTABLEon 11-16-19 XR CHEST PORTABLE CLINICAL HISTORY: Shortness of breath. Chest pain. CHEST PORTABLE AP VIEW: The lungs are clear. No pneumothorax. The pulmonary vascularity and cardiomediastinal silhouette are normal. No acute fracture is seen. IMPRESSION: Normal chest. Interpreted by: Сергей Cobian MD Signed by: Сергей Cobian MD 11/16/24 Final result Normal [facility] HCG ( test) Ql (U)o n 10-23-2024 Interpretation and review of laboratory results Normal [facility] Preg Test, Ur Negative Negative [facility] HCG ( test) Ql (U)o n 08-27-2024 Beta HCG ( test) Ql (U) Negative Normal NEG [facility] Comment on above: Performed By: #### 2 106-3 #### [facility] ([id number]) [address] [place] [address] Surgical Pathologyon 024 Surgical Pathology Normal [facility] Comment on above: Result Comment: [facility] [address] [place] [address] Surgical Pathology Consultation Patient Name:CHARIS ALLEN:2000 (Age: 23)Gender:FTaken:08/27/2024eported:09/06/2024hysician(s):Sanjeev nh-Catie DO Dick ([phone])Copy To: Rec. 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 Report Electronically Signed Out cjb/09/06/2024eri Arguelles MD Interpretation performed at [facility], [address] [place] [address], License number: [id number]. Clinical History Lesion of tongue. Gross Description Received in formalin labeled TIFFANY right base of tongue lesion is a Telfa pad with two travis-yellow rubbery soft tissue bits, 0.2 and 0.3 cm. The specimen is filtered and entirely submitted in a single cassette. (1, ns, [id number],m5) DM. dm/08/27/2024NSK Specimen(s) Received Right base of tongue Fee Codes(s): 1; 15758 CNOVon 07-25-2024 CNOV Office Visit (PODIAM ) JIMCHARIS BETH ([id number]) 4 F Date Time Provider Department 07/25/24 11:45 AM ÁNGELA DELGADO During your visit today, we recorded the following information about you: Ángela Delgado, DPM 07/25/2024 5:34 PM Signed Service Date: July 25, 2024 PCP: No primary care provider on file. Last Podiatry Visit: 12/26/2023 The history is provided by the patient. Patient presents with: Nail Check: Pt following up on bilateral hallux nails post matrixectomy in december. PT relates that she was sick and forgot about coming in for her post op appts. Pt relates that she was using antifungal however she discontinued because she was not sure if she still needed to use them. Pt relates that she never took the lamisil due to other medication she is taking. ALLERGIES Allergen Reactions Periactin [Cyprohep* Diarrhea, Other: See Comments Passing out, turning white. Doxycycline Other: See Comments dizziness Penicillin G Sodium Rash Seasonal Allergies Current Outpatient Medications on File Prior to Visit Medication Sig clindamycin (CLEOCIN) 1 % external solution Apply to the affected area of face once daily. methylphenidate HCl (CONCERTA ORAL) Take 18 mg by mouth once daily. Sulfacetamide Sodium-Sulfur 10-5 % (w/w) lotn Apply to all acne-prone areas twice daily (Patient not taking: Reported on 11/21/2023) adapalene (DIFFERIN) 0.1 % gel Apply to all acne-prone areas at bedtime. (Patient not taking: Reported on 11/21/2023) pimecrolimus (ELIDEL) 1 % cream APPLY 2 TIMES DAILY TO FACIAL AREAS NEEDED FOR RASH/ITCHING (Patient not taking: Reported on 11/21/2023) No current facility-administered medications on file prior to visit. Review of Systems Constitutional: Negative for chills and fever. Cardiovascular: Negative for leg swelling. Musculoskeletal: Negative for gait problem. Skin: Negative for rash and wound. Neurological: Negative for numbness. Hematological: Does not bruise/bleed easily. Physical Exam Vitals reviewed. Constitutional: Appearance: Normal appearance. Cardiovascular: Pulses: Dorsalis pedis pulses are 2+ on the right side and 2+ on the left side. Posterior tibial pulses are 2+ on the right side and 2+ on the left side. Musculoskeletal: General: Tenderness present. Normal range of motion. Comments: Patient has a flexible foot type with a compensating forefoot splay. Feet: Right foot: Toenail Condition: Right toenails are abnormally thick. Fungal disease present. Left foot: Toenail Condition: Left toenails are abnormally thick. Fungal disease present. Skin: General: Skin is dry. Capillary Refill: Capillary refill takes 2 to 3 seconds. Comments: Nails are thickened and dystrophic. Right foot worse than left. Neurological: General: No focal deficit present. Mental Status: She is alert and oriented to person, place, and time. Psychiatric: Mood and Affect: Mood normal. ASSESSMENT Onychomycosis (primary encounter diagnosis) Tinea pedis, unspecified laterality Return if symptoms worsen or fail to improve. TREATMENT We discussed the possible etiologies of discolored, dystrophic, and thickened nails including fungus, yeast, mold as well as in some instances, prior trauma, or mechanical causes such as repetitive microtrauma in shoe gear. We discussed topical medication for discolored toenails which has very low success but no major side effects. Patient would like to proceed with topical medication. Nail care instructions dispensed. Discussion of antifungal cream to skin on feet daily. The documentation for this note was completed by Olga Thompson MA acting as scribe for Ángela Delgado DPM. July 25, 2024 12:18 PM I spent 20 minutes on the date of the service which included preparing to see the patient, [id number] patient care, completing clinical documentation, obtaining and/or reviewing separately obtained history, performing a medically appropriate examination, counseling and educating the patient/family/caregi tanisha, ordering medications, tests and care coordination (not separately reported). Time did not include procedure time. I agree with the Chief Complaint, ROS, and Past Histories independently gathered by the clinical data support analyst and the remaining scribed note accurately describes my personal service to the patient. This document has been created with the use of voice recognition technology. It may contain inaccuracies, misspellings, inaccurate syntax or inappropriate word context that escaped review. NEGAR Sharp Rebecca, MA 07/25/2024 12:39 PM Signed FUNGAL NAIL TREATMENT Your nail condition is being treated with the most advanced treatment available, which is the result of successful research. Success with this stubborn condition will require your cooperation. GENERAL INS (more content not included)... Normal [facility] CT NECK SOFT TISSUE W CONTon 07-11-2024 CT NECK SOFT TISSUE W CONT CT NECK SOFT TISSUE W CONT EXAM: CT NECK SOFT TISSUE W CONT INDICATION: Chronic throat pain; Odynophagia COMPARISON: None. TECHNIQUE/PROTOCOL: Standard post contrast axial neck CT axial images obtained with coronal and sagittal reformats generated. All CT scans at this facility use dose modulation, iterative reconstruction, and/or weight based dosing when appropriate to reduce radiation dose to as low as reasonably achievable. CONTRAST: 100 mL Omnipaque IV. FINDINGS: Suprahyoid Neck: The nasopharynx, oropharynx, oral cavity, parapharyngeal space, and retropharyngeal space are normal. Infrahyoid Neck: The larynx and hypopharynx are normal. Lymph Nodes: No enlarged or abnormal appearing lymph nodes. Salivary Glands: The parotid and submandibular glands are normal. Thyroid: Normal. Brain and Skull Base: The visualized portions of the brain and skull base are normal. Orbits: Normal. Paranasal Sinuses: Normal. Partially Visualized Thorax: The visualized lung apices and upper thorax are unremarkable. Vasculature: The visualized major vessels of the neck are normal. Bones: No lytic or blastic osseous lesions. IMPRESSION: No significant abnormalities of the neck to account for the patient's symptoms. Finalized by Mich Ty on 07/11/2024 8:38 AM Normal [facility] PREG QUANT HCGon 024 HCG QUANTITATIVE <1 mIU/mL [facility] Comment on above: 5-50 0.2-1 WEEK 50-500 1-2 WEEKS 100-5,000 2-3 WEEKS 500-10,000 3-4 WEEKS 1,000-50,000 4-5 WEEKS 10,000-100,000 5-6 WEEKS 15,000-200,000 6-8 WEEKS 10,000-100,000 2-3 MONTHS [facility] CT abdomen pelvis w conon CT abdomen pelvis w con [facility] [place] [address] CT Scan Report Signed Patient: Charis Allen MR#: [id number] : 2000 Acct:[id number] Age/Sex: 23 / F ADM Date: 06/27/24 Loc: ER Room: Type: [facility] ER Attending Dr: Copies to: Yung Nichols Jr, MD Ordering Provider: Yung Nichols Jr, MD Date of Service: 06/28/24 CT/CT abdomen pelvis w con: Severe abdominal pain, mostly lower but diffuse CT Abdomen and Pelvis withcontrast TECHNIQUE: Axial imaging with 2-D reconstruction.90 cc of Isovue-300. The CT exam was performed using one or more the following dose reduction techniques: Automated exposure control, adjustment of the MA and/or Kv according to patient size, or use of the iterative reconstruction technique. COMPARISON: None History: Nausea and vomiting. Abdominal pain LIMITATIONS: None LOWER THORAX Unremarkable LIVER: Tiny cyst. GALLBLADDER: No gallbladder abnormality identified. BILE DUCTS: No dilatation SPLEEN: Unremarkable PANCREAS: Unremarkable ADRENAL GLANDS: Unremarkable KIDNEYS:Unremarkable AORTA: No abdominal aortic aneurysm identified. RETROPERITONEUM: No significant retroperitoneal abnormalities identified. MESENTERY:Unremarkabl e SMALL BOWEL: The small bowel loops are nondistended. APPENDIX: Appendectomy changes identified. COLON: Moderate proximal constipation. URINARY BLADDER: Urinary bladder is unremarkable. REPRODUCTIVE SYSTEM: Reproductive structures are unremarkable. PNEUMOPERITONEUM: None PERITONEAL FLUID:None BONY STRUCTURES: Unremarkable ABDOMINAL WALL: Unremarkable CT/CT abdomen pelvis w con IMPRESSION: No acute findings. Moderate proximal constipation. Impression dictated by: Michael Camacho M.D.06/28/2024 6:18 AM Dictation Location: [place] [address] Transcribed By: [facility] 06/28/24617 Dictated By: Michael Camacho DO 06/28/24 0616 Signed By: 06/28/24617 Normal [facility] Chlamydia/GC Amplificationon 06-28-2024 Chlamydia Trachomotis, JANET Negative Normal Negative [facility] Comment on above: Order Comment: SOURC E OF SPECIMEN: Genital Performed By: #### F S ####[facility] Spe0875 [address]#### GCCHLAMAMP ####[facility] , Neisseria Gonorrhoeae, JANET Negative Normal Negative [facility] Comment on above: Order Comment: SOURC E OF SPECIMEN: Genital Result Comment: Perf ormed at: =G - [facility] [address]oades [address] [id number] Drone Pilot: Barbie Mota MD, Phone: [phone] PERFORMED BY: [facility] [address] [place] [address] PATHOLOGIST SLING OPERATOR SAMANTHA VILLAR M.D. Performed By: #### F S ####[facility] [id number] [address]#### GCCHLAMAMP ####[facility] , Fungal Smearon 06-28-2024 Fungal Smear Fungus Smear Results No Yeast Like Elements Seen Trichomonas Screen No Trichomonas Seen Trich Reference Reference range = None Seen PERFORMED BY: [facility] [address] [place] [address] PATHOLOGIST SLING OPERATOR SAMANTHA VILLAR M.D. Normal [facility] Comment on above: Performed By: #### F S #### [facility] [address] [place] [address] #### GCCHLAMAMP #### [facility] , Trichomonas vaginalis detect ion by wet preparationOrdered By: Yung Nichols on 06-28-2024 T. vaginalis Wet prep Ql (Unsp spec) [facility] Alanine aminotransferase [En zymatic activity/volume] in Serum or PlasmaOrdered By: Yung Nichols on 06-27-2024 ALT [Catalytic activity/Vol] 20 U/L Normal 7-52 [facility] Comment on above: Performed By: #### C MP, LIPASE, CBC ####[address] Albumin [Mass/volume] in Ser um or Plasma by Bromocresol green (BCG) dye binding methoOrdered By: Yung Nichols on 06-27-2024 Albumin BCG dye [Mass/Vol] 4.2 g/dL 3.5-5.7 [facility] Alkaline phosphatase [Enzyma tic activity/volume] in Serum or PlasmaOrdered By: Yung Nichols on 06-27-2024 ALP [Catalytic activity/Vol] 69 U/L Normal 34-104 [facility] Comment on above: Performed By: #### C MP, LIPASE, CBC ####[facility] [place] [address] Aspartate aminotransferase [ Enzymatic activity/volume] in Serum or PlasmaOrdered By: Yung Nichols on 06-27-2024 AST [Catalytic activity/Vol] 21 U/L Normal 13-39 [facility] Comment on above: Performed By: #### C MP, LIPASE, CBC ####[address] Automated basophil %Ordered By: Yung Nichols on 06-27-2024 Basophils/100 WBC (Bld) 0.6 % Normal . [facility] Comment on above: Performed By: #### C MP, LIPASE, CBC ####[address] Automated basophil countOrde red By: Yung Nichols on 06-27-2024 Basophils (Bld) [#/Vol] 0.0 10*3/uL Normal 0.0-0.2 [facility] Comment on above: Result Comment: PERF ORMED BY: [facility] [address] [place] [address] PATHOLOGIST SLING OPERATOR SAMANTHA VILLAR M.D. Performed By: #### C MP, LIPASE, CBC ####[address] Automated blood monocyte cou ntOrdered By: Yung Nichols on 06-27-2024 Monocytes (Bld) [#/Vol] 0.5 10*3/uL Normal 0.0-0.8 [facility] Comment on above: Performed By: #### C MP, LIPASE, CBC ####[address] Automated eosinophil %Ordere d By: Yung Nichols on 06-27-2024 Eosinophils/100 WBC (Bld) 1.4 % Normal . [facility] Comment on above: Performed By: #### C MP, LIPASE, CBC ####[address] Automated eosinophil countOr dered By: Yung Nichols on 06-27-2024 Eosinophils (Bld) [#/Vol] 0.1 10*3/uL Normal 0.0-0.45 [facility] Comment on above: Performed By: #### C MP, LIPASE, CBC ####[facility] Automated monocyte %Ordered By: Yung Nichols on 06-27-2024 Monocytes/100 WBC (Bld) 6.7 % Normal . F [facility] Comment on above: Performed By: #### C MP, LIPASE, CBC ####[place] [id number] [address] Automated neutrophil %Ordere d By: Yung Nichols on 06-27-2024 Neutrophils/100 WBC (Bld) 63.9 % Normal . [facility] Comment on above: Performed By: #### C MP, LIPASE, CBC ####[place] [id number] [address] Bacteria [Presence] in Urine by AutomatedOrdered By: Yung Nichols on 06-27-2024 Bacteria Auto Ql (U) Rare [HPF] None Seen [facility] Bilirubin Test strip Ql (U)O rdered By: Yung Nichols on 06-27-2024 Bilirubin Ql (U) Negative Negative [facility] Bilirubin.total [Mass/volume ] in Serum or PlasmaOrdered By: Yung Nichols on 06-27-2024 Bilirubin [Mass/Vol] 1.5 mg/dL High 0.3-1.0 [facility] Comment on above: Samples from patient s who have taken Naproxen have shown spurious elevation in Total Bilirubin levels. A metabolite of Naproxen, O-desmethylnaproxen, has been shown to interfere with the Jendrassik-Grof method for measuring Total Bilirubin. Result Comment: Samp les from patients who have taken Naproxen have shown spurious elevation in Total Bilirubin levels. A metabolite of Naproxen, O-desmethylnaproxen, has been shown to interfere with the Jendrassik-Grof method for measuring Total Bilirubin. Performed By: #### C MP, LIPASE, CBC ####[place] [id number] [address] Calcium [Mass/volume] in Ser um or PlasmaOrdered By: Yung Nichols on 06-27-2024 Calcium [Mass/Vol] 9.1 mg/dL Normal 8.6-10.3 [facility] Comment on above: Performed By: #### C MP, LIPASE, CBC ####[address] Carbon dioxide, total [Moles /volume] in Serum or PlasmaOrdered By: Yung Nichols on 06-27-2024 CO2 [Moles/Vol] 26.8 mmol/L Normal 21.0-31.0 [facility] Comment on above: Performed By: #### C MP, LIPASE, CBC ####[address] Chloride [Moles/volume] in S emiliana or PlasmaOrdered By: Yung Nichols on 06-27-2024 Chloride [Moles/Vol] 105 mmol/L Normal 98-107 [facility] Comment on above: Performed By: #### C MP, LIPASE, CBC ####[place] [id number] [facility] Color of Urine by AutoOrdere d By: Yung Nichols on 06-27-2024 Color (U) Yellow Normal Yellow [facility] Comment on above: Order Comment: Name Collection Type:: Clean-Voided Midstream Performed By: #### C UU, ADDONUAPLUS, CG ####[place] [id number] [facility] Complete Blood Count Auto Di ffon 06-27-2024 Mean Corpuscular HGB Conc 33.3 g/dL Normal 32.0-35.0 [facility] Comment on above: Performed By: #### C MP, LIPASE, CBC ####[place] [id number] [facility] Monocytes/100 WBC (Bld) 20.22 % High 0.00-20.00 [facility] Comment on above: Result Comment: For adults in ED, MDW > 20.0 may be associated with a higher risk of sepsis during the first 12 hrs of hospital admission Performed By: #### C MP, LIPASE, CBC ####[place] [id number] [facility] NRBC% 0.2 /100{WBC} Normal 0-0.5 [facility] Comment on above: Performed By: #### C MP, LIPASE, CBC ####[place] [id number] [facility] Comprehensive Metabolic Pane yogi 06-27-2024 Albumin [Mass/Vol] 4.2 g/dL Normal 3.5-5.7 [facility] Comment on above: Performed By: #### C MP, LIPASE, CBC ####[address] Creatinine Clr Calc Pharmacy 115.39 Normal [facility] Comment on above: Performed By: #### C MP, LIPASE, CBC ####[address] GFR/1.73 sq M.predicted MDRD (S/P/Bld) [Vol rate/Area] mL/min/{1.73_m2} Normal [facility] Comment on above: Performed By: #### C MP, LIPASE, CBC ####[address] Creatinine [Mass/volume] in Serum or PlasmaOrdered By: Yung Nichols on 06-27-2024 Creatinine [Mass/Vol] 0.75 mg/dL Normal 0.60-1.20 [facility] Comment on above: Performed By: #### C MP, LIPASE, CBC ####[place] [id number] [facility] Dipstick and Microscopicon 0 06-27-2024 Bacteria,Urine Rare Normal None Seen [facility] Comment on above: Order Comment: Name Collection Type:: Clean-Voided Midstream Performed By: #### C UU ADDONUAPLUS, UHCG ####[place] [id number] [facility] Bilirubin,Urine Negative Normal Negative [facility] Comment on above: Order Comment: Name Collection Type:: Clean-Voided Midstream Performed By: #### C UU, ADDONUAPLUS, UHCG ####[address] [address] [facility] Glucose Ql (U) Normal Normal Normal [facility] Comment on above: Order Comment: Name Collection Type:: Clean-Voided Midstream Performed By: #### C UU, ADDONUAPLUS, UHCG ####[address] [address] [facility] Hyaline Casts,Urine None Normal 0-8 [facility] Comment on above: Order Comment: Name Collection Type:: Clean-Voided Midstream Performed By: #### C UU, ADDONUAPLUS, UHCG ####[place] [id number] [facility] Mucus,Urine 4+ Critically abnormal [facility] Comment on above: Order Comment: Name Collection Type:: Clean-Voided Midstream Performed By: #### C UU, ADDONUAPLUS, UHCG ####[place] [id number] [facility] Nitrite,Urine Negative Normal Negative [facility] Comment on above: Order Comment: Name Collection Type:: Clean-Voided Midstream Performed By: #### C UU, ADDONUAPLUS, UHCG ####[place] [id number] [facility] Occult Blood,Urine 1+ High Negative [facility] Comment on above: Order Comment: Name Collection Type:: Clean-Voided Midstream Performed By: #### C UU, ADDONUAPLUS, UHCG ####[place] [id number] [facility] Protein,Urine Negative Normal Negative [facility] Comment on above: Order Comment: Name Collection Type:: Clean-Voided Midstream Performed By: #### C UU, ADDONUAPLUS, UHCG ####[address] [address] [facility] RBC,Urine 5-9 High 0-4 [facility] Comment on above: Order Comment: Name Collection Type:: Clean-Voided Midstream Performed By: #### C UU, ADDONUAPLUS, UHCG ####[place] [id number] [address] Specificy [place],Urine 1.026 Normal 1.001-1.030 [facility] Comment on above: Order Comment: Name Collection Type:: Clean-Voided Midstream Performed By: #### C UU, ADDONUAPLUS, UHCG ####[address] Squamous Epithelial Cell,Urine 3-4 High 0-2 [facility] Comment on above: Order Comment: Name Collection Type:: Clean-Voided Midstream Performed By: #### C UU, ADDONUAPLUS, UHCG ####[address] Urobilinogen,Urine Normal Normal Normal [facility] Comment on above: Order Comment: Name Collection Type:: Clean-Voided Midstream Performed By: #### C UU, ADDONUAPLUS, UHCG ####[place] [id number] [facility] WBC,Urine 20-49 High 0-4 [facility] Comment on above: Order Comment: Name Collection Type:: Clean-Voided Midstream Performed By: #### C UU, ADDONUAPLUS, UHCG ####[address] Epithelial cells.squamous [# /area] in Urine sediment by Automated countOrdered By: Yung Nichols on 06-27-2024 Epithelial cells.squamous Auto (Urine sed) [#/Area] 3-4 [HPF] High 0-2 [facility] Erythrocyte distribution wid th [Ratio] by Automated countOrdered By: Yung Nichols on 06-27-2024 Erythrocyte distribution width (RBC) [Ratio] 14.2 % Normal 11.9-15.3 [facility] Comment on above: Performed By: #### C MP, LIPASE, CBC ####[address] Erythrocytes [#/area] in Uri ne sediment by Automated countOrdered By: Yung Nichols on 06-27-2024 RBC Auto (Urine sed) [#/Area] 5-9 [HPF] High 0-4 [facility] Erythrocytes [#/volume] in B lood by Automated countOrdered By: Yung Nichols on 06-27-2024 RBC (Bld) [#/Vol] 4.32 10*6/uL Normal 3.60-5.00 [facility] Comment on above: Performed By: #### C MP, LIPASE, CBC ####[facility] [address] [place] [address] [facility] Glucose [Mass/volume] in Ser um or PlasmaOrdered By: Yung Nichols on 06-27-2024 Glucose [Mass/Vol] 82 mg/dL Normal 70-100 [facility] Comment on above: ADA recommended refe rence rangeRandom Glucose Reference Range is dependent on time and content of last meal. Glucose of more than 200 mg/dL in a nonstressed, ambulatory subject supports the diagnosis of Diabetes Mellitus. Result Comment: [place] om Glucose Reference Range is dependent on time and content of last meal. Glucose of more than 200 mg/dL in a nonstressed, ambulatory subject supports the diagnosis of Diabetes Mellitus. ADA recommended reference range Performed By: #### C MP, LIPASE, CBC ####[facility] [address] [place] [address] [place] Glucose [Mass/volume] in Uri ne by Test stripOrdered By: Yung Nichols on 06-27-2024 Glucose Test strip (U) [Mass/Vol] Normal mg/dL Normal [facility] HCG ( test) IA.rapi d Ql (U)Ordered By: Yung Nichols on 06-27-2024 HCG ( test) Ql (U) Negative [facility] HCG,Urineon 06-27-2024 Beta HCG ( test) Ql (U) Negative Normal [facility] Comment on above: Order Comment: Name Collection Type:: Clean-Voided Midstream Result Comment: PERF ORMED BY: [facility] [address] [place] [address] PATHOLOGIST SLING OPERATOR SAMANTHA VILLAR M.D. Performed By: #### C UU, ADDQUINCY, UHCG ####[place] [id number] [address] Hematocrit [Volume Fraction] of Blood by Automated countOrdered By: Yung Nichols on 06-27-2024 Hematocrit (Bld) [Volume fraction] 39.5 % Normal 34.0-46.4 [facility] Comment on above: Performed By: #### C MP, LIPASE, CBC ####[address] Hemoglobin Test strip Ql (U) Ordered By: Yung Nichols on 06-27-2024 Hemoglobin Ql (U) 1+ High Negative [facility] Hemoglobin [Mass/volume] in BloodOrdered By: Yung Nichols on 06-27-2024 Hemoglobin (Bld) [Mass/Vol] 13.2 g/dL Normal 11.8-15.4 [facility] Comment on above: Performed By: #### C MP, LIPASE, CBC ####[address] Hyaline casts [#/area] in Ur ine sediment by Automated countOrdered By: Yung Nichols on 06-27-2024 Hyaline casts Auto (Urine sed) [#/Area] None [LPF] 0-8 [facility] Ketones [Presence] in Urine by Test stripOrdered By: Yung Nichols on 06-27-2024 Ketones Ql (U) Negative Normal Negative [facility] Comment on above: Order Comment: Name Collection Type:: Clean-Voided Midstream Performed By: #### C UUROSALINDA [facility] ####[address] Leukocyte esterase [Presence ] in Urine by Test stripOrdered By: Yung Nichols on 06-27-2024 Leukocyte esterase Test strip Ql (U) 4+ High Negative [facility] Comment on above: Order Comment: Name Collection Type:: Clean-Voided Midstream Performed By: #### C UUROSALINDA CG ####[place] [id number] [facility] Leukocytes [#/area] in Urine sediment by Automated countOrdered By: Yung Nichols on 06-27-2024 WBC Auto (Urine sed) [#/Area] 20-49 [HPF] High 0-4 [facility] Leukocytes [#/volume] correc roe for nucleated erythrocytes in Blood by Automated counOrdered By: Yung Nichols on 06-27-2024 WBC corrected for nucl RBC Auto (Bld) [#/Vol] 7.2 10*3/uL 3.8-11.6 [facility] Leukocytes [#/volume] in Blo od by Automated countOrdered By: Yung Nichols on 06-27-2024 WBC (Bld) [#/Vol] 7.2 10*3/uL Normal 3.8-11.6 [facility] Comment on above: Performed By: #### C MP, LIPASE, CBC ####[address] Lipase [Enzymatic activity/v olume] in Serum or PlasmaOrdered By: Yung Nichols on 06-27-2024 Lipase [Catalytic activity/Vol] 19.0 U/L Normal 11.0-82.0 [facility] Comment on above: Result Comment: PERF ORMED BY: [facility] [address] [place] [address] PATHOLOGIST SLING OPERATOR SAMANTHA VILLAR M.D. Performed By: #### C MP, LIPASE, CBC ####[place] [id number] [facility] Lymphocytes [#/volume] in Bl ood by Automated countOrdered By: Yung Nichols on 06-27-2024 Lymphocytes (Bld) [#/Vol] 2.0 10*3/uL Normal 1.00-4.8 [facility] Comment on above: Performed By: #### C MP, LIPASE, CBC ####[place] [id number] [facility] Lymphocytes/100 leukocytes i n Blood by Automated countOrdered By: Yung Nichols on 06-27-2024 Lymphocytes/100 WBC (Bld) 27.4 % Normal . [facility] Comment on above: Performed By: #### C MP, LIPASE, CBC ####[place] [id number] [place] MCH [Entitic mass] by Automa roe countOrdered By: Yung Nichols on 06-27-2024 MCH (RBC) [Entitic mass] 30.5 pg Normal 24.7-34.3 [facility] Comment on above: Performed By: #### C MP, LIPASE, CBC ####[place] [id number] [address] MCHC Auto (RBC) [Mass/Vol]Or dered By: Yung Nichols on 06-27-2024 MCHC (RBC) [Mass/Vol] 33.3 g/dL 32.0-35.0 [facility] MCV [Entitic volume] by Auto mated countOrdered By: Yung Nichols on 06-27-2024 MCV (RBC) [Entitic vol] 91.5 fL Normal 80-100 F [facility] Comment on above: Performed By: #### C MP, LIPASE, CBC ####[address] Monocyte distribution width [Entitic volume] in Blood by AutomatedOrdered By: Yung Nichols on 06-27-2024 Monocyte distribution width Auto (Bld) [Entitic vol] 20.22 % High 0.00-20.00 [facility] Comment on above: For adults in ED, MD W > 20.0 may be associated with a higher risk of sepsis during the first 12 hrs of hospital admission Mucus [Presence] in Urine by AutomatedOrdered By: Yung Nichols on 06-27-2024 Mucus Auto Ql (U) 4+ [LPF] Abnormal [facility] Neutrophils [#/volume] in Bl ood by Automated countOrdered By: Yung Nichols on 06-27-2024 Neutrophils (Bld) [#/Vol] 4.6 10*3/uL Normal 1.8-7.7 [facility] Comment on above: Performed By: #### C MP, LIPASE, CBC ####[place] [id number] [address] Nitrite Test strip Ql (U)Ord ered By: Yung Nichols on 06-27-2024 Nitrite Ql (U) Negative Negative [facility] No Panel InformationOrdered By: Yung Nichols on 06-27-2024 Estimated GFR (CKD-EPI) > 60.0 mL/Min [facility] Creatinine Clearance (Chem 115.39 [facility] Nucleated erythrocytes [Pres ence] in Blood by Automated countOrdered By: Yung Nichols on 06-27-2024 Nucleated RBC Auto Ql (Bld) 0.2 /100{WBC} 0-0.5 [facility] Platelet mean volume [Entiti c volume] in Blood by Automated countOrdered By: Yung Nichols on 06-27-2024 Platelet mean volume (Bld) [Entitic vol] 8.0 fL Normal 6.3-10.7 [facility] Comment on above: Performed By: #### C MP, LIPASE, CBC ####[place] [id number] [address] Platelets [#/volume] in Bloo d by Automated countOrdered By: Yung Nichols on 06-27-2024 Platelets (Bld) [#/Vol] 201 10*3/uL Normal 150-450 [facility] Comment on above: Performed By: #### C MP, LIPASE, CBC ####[place] [id number] [facility] Potassium [Moles/volume] in Serum or PlasmaOrdered By: Yung Nichols on 06-27-2024 Potassium [Moles/Vol] 3.4 mmol/L Low 3.5-5.1 [facility] Comment on above: Performed By: #### C MP, LIPASE, CBC ####[place] [id number] [facility] Protein Test strip (U) [Mass /Vol]Ordered By: Yung Nichols on 06-27-2024 Protein (U) [Mass/Vol] Negative Negative [facility] Protein [Mass/volume] in Ser um or PlasmaOrdered By: Yung Nichols on 06-27-2024 Protein [Mass/Vol] 6.4 g/dL Normal 6.4-8.9 [facility] Comment on above: Performed By: #### C MP, LIPASE, CBC ####[place] [id number] [facility] Serum globulin measurement b y calculation (mass/volume)Ordered By: Yung Nichols on 06-27-2024 Globulin (S) [Mass/Vol] 2.2 g/dL Normal F [facility] Comment on above: Performed By: #### C MP, LIPASE, CBC ####[place] [id number] Serum or plasma albumin/glob ulin mass ratioOrdered By: Yung Nichols on 06-27-2024 Albumin/Globulin [Mass ratio] 1.9 {ratio} Normal [facility] Comment on above: Performed By: #### C MP, LIPASE, CBC ####[place] [id number] Serum or plasma anion gap de terminationOrdered By: Yung Nichols on 06-27-2024 Anion gap [Moles/Vol] 10.6 mmol/L Normal 6.0-15.0 [facility] Comment on above: Performed By: #### C MP, LIPASE, CBC ####[address] Sodium [Moles/volume] in Ser um or PlasmaOrdered By: Yung Nichols on 06-27-2024 Sodium [Moles/Vol] 139 mmol/L Normal 136-145 [facility] Comment on above: Performed By: #### C MP, LIPASE, CBC ####[address] Specific gravity Test strip (U) [Rel density]Ordered By: Yung Nichols on 06-27-2024 Specific gravity (U) [Rel density] 1.026 1.001-1.030 [facility] Urea nitrogen [Mass/volume] in Serum or PlasmaOrdered By: Yung Nichols on 06-27-2024 Urea nitrogen [Mass/Vol] 17 mg/dL Normal 7-25 [facility] Comment on above: Performed By: #### C MP, LIPASE, CBC ####[address] Urine Cultureon 06-27-2024 Bacteria identified Cx Nom (U) 75,000 colonies/ml mixed bacterial skin contaminants 2 Days PERFORMED BY: [facility] [address] [place] [id number] PATHOLOGIST SLING OPERATOR SAMANTHA VILLAR M.D. Normal [facility] Comment on above: Performed By: #### C UROSALINDA [place], [facility] ####[place] [id number] [place] [id number] [facility] Urine appearanceOrdered By: Yung Nichols on 06-27-2024 Appearance (U) Clear Normal Clear [facility] Comment on above: Order Comment: Name Collection Type:: Clean-Voided Midstream Performed By: #### C UUROSALINDA, [facility] ####[place] [id number] [address] Urobilinogen Test strip (U) [Mass/Vol]Ordered By: Yung Nichols on 06-27-2024 Urobilinogen (U) [Mass/Vol] Normal mg/dL Normal [facility] pH of Urine by Test stripOrd ered By: Yung Nichols on 06-27-2024 pH (U) 6.0 [pH] Normal 5.0-9.0 [facility] Comment on above: Order Comment: Name Collection Type:: Clean-Voided Midstream Performed By: #### C UROSALINDA [place], [facility] ####[place] [id number] [facility] PREG QUANT HCGon 024 HCG QUANTITATIVE <1 mIU/mL [facility] Comment on above: 5-50 0.2-1 WEEK 50-500 1-2 WEEKS 100-5,000 2-3 WEEKS 500-10,000 3-4 WEEKS 1,000-50,000 4-5 WEEKS 10,000-100,000 5-6 WEEKS 15,000-200,000 6-8 WEEKS 10,000-100,000 2-3 MONTHS [facility] HCG, Quanton 01-16-2024 HCG, Quant <1.0 Normal <5 [facility] Comment on above: Result Comment: Non-preg premeno <=5 Postmeno <=8 Male <=3 If HCG results do not concur with clinical observations, additional testing to confirm results is recommended. Performed By: #### B [facility] #### [facility] [address] [place] [address] Drone Pilot: MD Andrew Aguilera 12-26-2023 CNANA Office Visit (PODIAM ) CHARIS ALLEN ([id number]) 4 F Date Time Provider Department 12/26/23 5:00 PM ÁNGELA DELGADO During your visit today, we recorded the following information about you: Ángela Delgado DPM 12/26/2023 7:40 PM Signed Service Date: December 26, 2023 PCP: No primary care provider on file. Last Podiatry Visit: 11/21/2023 The history is provided by the patient. Patient presents with: Right Foot - Pain: 1st toenail Left Foot - Pain: 1st toenail; Pain is 10/10 with ambulation. Pain is relieved when not standing/walking on feet. Procedure Pt presents today for matrixectomy bilateral hallux bilateral borders. Patient relates she stopped taking the Lamisil due to a particular reaction to the medicine by mouth. Patient relates she occasionally lies topical treatment on her toenails, however not applying antifungal lotion to her feet.. ALLERGIES Allergen Reactions Periactin [Cyprohep* Diarrhea, Other: See Comments Passing out, turning white. Doxycycline Other: See Comments dizziness Penicillin G Sodium Rash Seasonal Allergies Current Outpatient Medications on File Prior to Visit Medication Sig methylphenidate HCl (CONCERTA ORAL) Take 18 mg by mouth once daily. terbinafine HCl (LAMISIL) 250 mg tablet Take 1 tablet by mouth once daily. Sulfacetamide Sodium-Sulfur 10-5 % (w/w) lotn Apply to all acne-prone areas twice daily (Patient not taking: Reported on 11/21/2023) adapalene (DIFFERIN) 0.1 % gel Apply to all acne-prone areas at bedtime. (Patient not taking: Reported on 11/21/2023) pimecrolimus (ELIDEL) 1 % cream APPLY 2 TIMES DAILY TO FACIAL AREAS NEEDED FOR RASH/ITCHING (Patient not taking: Reported on 11/21/2023) No current facility-administered medications on file prior to visit. Review of Systems Constitutional: Negative for chills and fever. Cardiovascular: Negative for leg swelling. Musculoskeletal: Negative for gait problem. Skin: Negative for rash and wound. Neurological: Negative for numbness. Hematological: Does not bruise/bleed easily. Physical Exam Vitals reviewed. Constitutional: Appearance: Normal appearance. 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 Hallux toenails are thickened and dystrophic causing pain with palpation, ingrowing nail both borders and distal aspect of the toe, no s/s of infection Skin: Comments: Bilateral hallux nails thickened dystrophic and ingrown in bilateral borders. Red skin next to the toenail Swelling next to the toenail Tenderness next to the toenail Tenderness of the toenail Nails are thickened and dystrophic. Plantar aspect of both feet are peeling with mild irritation of skin and redness. Neurological: Mental Status: She is alert and oriented to person, place, and time. Psychiatric: Mood and Affect: Mood normal. ASSESSMENT Onychomycosis (primary encounter diagnosis) Ingrown toenail Toe pain, bilateral Tinea pedis, unspecified laterality Return in about 1 week (around 01/02/2024) for post op matrixectomy . TREATMENT - Nail and foot care instructions discussed. - Recommendation of an antifungal cream to skin on feet daily. Medication orders placed this encounter clotrimazole-betameth asone (LOTRISONE) cream Sig: Apply 1 application to affected area two times a day. Dispense: 45 g Refill: 11 The nature and purpose of the operation, possible alternative methods of treatment (including no treatment), the risks involved, and the possibility of complications have been fully explained to the patient. The patient acknowledged that there is no guarantee or assurance as to the results that may be obtained. Conservative therapy has not rendered relief of symptoms patient desires surgical management at this time. 1. Phenol and alcohol matrixectomy bilateral hallux bilateral borders . After an appropriate informed consent discussion with the patient, the left and right hallux were anesthetized using 3 cc of 1% lidocaine with epinephrine 1:600,000. An elevator was used to liberate the offending nail border from the overlying eponychium and underlying nailbed. An Iranian anvil was used to cut the offending nail border down to the nail matrix and the offending nail border was removed with a hemostat. Phenol was applied in the nail border to cauterize the matrix with 3 applications. The area was probed with a blunt instrument and noted to have no remaining nail spicules. The area was irrigated with copious amount of alcohol. A surgical bandage was applied and oral and written home-going instructions were given. 2. Post op appointment scheduled for 1 week. Patient instructed to call if problems arise prior to next visit. UNIVERSAL PROTOCOL / SAFETY CHECKLIST Procedure to be Performed: Matrixectomy Sign In: A Mome (more content not included)... Normal [facility] CNOVon 11-21-2023 CNOV Office Visit (PODIAM ) CHARIS ALLEN ([id number]) 4 F Date Time Provider Department 11/21/23 2:15 PM ÁNGELA DELGADO During your visit today, we recorded the following information about you: Last Period 11/06/23 Ángela Delgado DPM 11/21/2023 3:03 PM Signed Service Date: November 21, 2023 PCP: No primary care provider on file. Last Podiatry Visit: None at [facility] The history is provided by the patient. Patient presents with: New Patient: Ingrown toe nails, x few years. Big toes on both feet. Pain scale 10. When she walks it gives a jabbing type of pain. Pt denies using anything for her pain. The patient relates she had her toenails torn off by a door and they grew back thick and ingrown. She complains of pain with shoe gear and ambulation. ALLERGIES Allergen Reactions Periactin [Cyprohep* Diarrhea, Other: See Comments Passing out, turning white. Doxycycline Other: See Comments dizziness Penicillin G Sodium Rash Seasonal Allergies Current Outpatient Medications on File Prior to Visit Medication Sig methylphenidate HCl (CONCERTA ORAL) Take 18 mg by mouth once daily. Sulfacetamide Sodium-Sulfur 10-5 % (w/w) lotn Apply to all acne-prone areas twice daily (Patient not taking: Reported on 11/21/2023) adapalene (DIFFERIN) 0.1 % gel Apply to all acne-prone areas at bedtime. (Patient not taking: Reported on 11/21/2023) pimecrolimus (ELIDEL) 1 % cream APPLY 2 TIMES DAILY TO FACIAL AREAS NEEDED FOR RASH/ITCHING (Patient not taking: Reported on 11/21/2023) No current facility-administered medications on file prior to visit. Review of Systems Constitutional: Negative for chills and fever. Cardiovascular: Negative for leg swelling. Musculoskeletal: Negative for gait problem. Skin: Negative for rash and wound. Neurological: Negative for numbness. Hematological: Does not bruise/bleed easily. Physical Exam Vitals reviewed. Constitutional: Appearance: Normal appearance. 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 Hallux toenails are thickened and dystrophic causing pain with palpation, ingrowing nail both borders and distal aspect of the toe, no s/s of infection Skin: Comments: Bilateral hallux nails thickened dystrophic and ingrown in bilateral borders. Red skin next to the toenail Swelling next to the toenail Tenderness next to the toenail Tenderness of the toenail Nails are thickened and dystrophic. Neurological: Mental Status: She is alert and oriented to person, place, and time. Psychiatric: Mood and Affect: Mood normal. ALT Date Value Ref Range Status 01/25/2016 16 0 - 45 U/L Final AST Date Value Ref Range Status 01/25/2016 22 7 - 40 U/L Final Last XR Foot / Toe - Impression Only No resulted procedures found. ASSESSMENT Onychomycosis (primary encounter diagnosis) Ingrown toenail Toe pain, bilateral Medication monitoring encounter Return for 60 minute procedure for matrixectomy bilateral hallux bilateral borders. . TREATMENT Etiology of the patient's problems were discussed today. All questions asked were answered. Conservative management was discussed . 1. Debridement of 2 offending painful ingrown toenail(s) using a nail splitter without incident. In order to perform a complete physical exam, [address] was performed. This incidental service is integral to the evaluation and management visit in order to appropriately manage and treat the patient, for their complaint for this visit. 2. Santyl and a bandage applied to offending toenails. 3. Discussion of daily local wound care until healed. 4. Recommendation of epsom salts and warm water. 5. Recommendation of matrixectomy Matrixectomy bilateral hallux bilateral borders if problems persist. 6. Nail care instructions discussed and dispensed. 7. Recommendation of refraining from painting the toenails. The patient is to call immediately if questions, concerns, or pain arise prior to next appointment. Written instructions (see patient instructions) and verbal health teaching given to patient, patient verbalizes understanding and agrees with treatment plan. Medication orders placed this encounter terbinafine HCl (LAMISIL) 250 mg tablet Sig: Take 1 tablet by mouth once daily. Dispense: 90 tablet Refill: 0 The documentation for this note was completed by Olga Thompson MA acting as scribe for Ángela Delgado DPM. November 21, 2023 2:40 PM I spent 22 minutes on the date of the service which included preparing to see the patient, [id number] patient care, completing clinical documentation, obtaining and/or reviewing separately obtained history, performing a medically appropriate examination, counseling and educating the patient/family/caregi tanisha, ordering medications, tests, or procedures and care group billing coordinator (more content not included)... Normal [facility] A1C with Estimated Average G ramirez 11-08-2023 HbA1c (Bld) [Mass fraction] 5.000 % Normal 4.3-5.6 % [facility] Other HbA1c (Bld) [Mass fraction] 97 mg/dL [facility] Other Glucose [Mass/Vol] 97 mg/dL Normal [facility] Comment on above: Order Comment: Reaso n for Exam Overweight (BMI 25.0-29.9);Elevated alkaline phosphatase lev Result Comment: PERF ORMED BY: [facility] [address] [place] [address] PATHOLOGIST SLING OPERATOR SAMANTHA VILLAR M.D. Performed By: #### L IPID, CMP, TSH3, A1C [facility] eA #### [facility] [address] [place] [address] [place] #### APOB, LIPA #### [facility] , Alanine aminotransferase [En zymatic activity/volume] in Serum or PlasmaOrdered By: Pérez Barcenas on 11-08-2023 ALT [Catalytic activity/Vol] 15 U/L Normal 7-52 [facility] Comment on above: Order Comment: Reaso n for Exam Overweight (BMI 25.0-29.9);Elevated alkaline phosphatase lev Performed By: #### L IPID, CMP, TSH3, A1C [facility] eA #### [place] [address] [place] #### APOB, LIPA #### [facility] , Albumin [Mass/volume] in Ser um or Plasma by Bromocresol green (BCG) dye binding methoOrdered By: Pérez Barcenas on 11-08-2023 Albumin BCG dye [Mass/Vol] 4.3 g/dL 3.5-5.7 [facility] Alkaline phosphatase [Enzyma tic activity/volume] in Serum or PlasmaOrdered By: Pérez Barcenas on 11-08-2023 ALP [Catalytic activity/Vol] 80 U/L Normal 34-104 [facility] Comment on above: Order Comment: Reaso n for Exam Overweight (BMI 25.0-29.9);Elevated alkaline phosphatase lev Performed By: #### L IPID, CMP, TSH3, A1C [facility] eA #### [facility] [address] [place] [address] [place] #### APOB, LIPA #### [facility] , Apolipoprotein Bon 4 Apolipoprotein B [Mass/Vol] 62 mg/dL Normal <90 [facility] Comment on above: Order Comment: Reaso n for Exam Overweight (BMI 25.0-29.9);Elevated alkaline phosphatase lev Result Comment: Breanna wilkerson < 90 Borderline High 90 - 99 High 100 - 130 Very High >130 ASCVD RISK THERAPEUTIC TARGET CATEGORY APO B (mg/dL) Very High Risk <80 (if extreme risk <70) High Risk <90 Moderate Risk <90 Performed at: [facility] Lab[address] [id number] Drone Pilot: Arnold Garcia MD, Phone: [phone] PERFORMED BY: [place] [address] PATHOLOGIST SLING OPERATOR SAMANTHA VILLAR M.D. Performed By: #### L IPID, CMP, TSH3, A1C [facility] eA #### [address] #### APOB, LIPA #### [facility] , Aspartate aminotransferase [ Enzymatic activity/volume] in Serum or PlasmaOrdered By: Pérez Barcenas on 11-08-2023 AST [Catalytic activity/Vol] 14 U/L Normal 13-39 [facility] Comment on above: Order Comment: Reaso n for Exam Overweight (BMI 25.0-29.9);Elevated alkaline phosphatase lev Performed By: #### L IPID, CMP, TSH3, A1C [facility] eA #### [place] [address] [place] #### APOB, LIPA #### [facility] , Bilirubin.total [Mass/volume ] in Serum or PlasmaOrdered By: Pérez Barcenas on 11-08-2023 Bilirubin [Mass/Vol] 0.8 mg/dL Normal 0.3-1.0 [facility] Comment on above: Order Comment: Reaso n for Exam Overweight (BMI 25.0-29.9);Elevated alkaline phosphatase lev Performed By: #### L IPID, CMP, TSH3, A1C WTH eA #### [place] [address] [place] #### APOB, LIPA #### [facility] , Calcium [Mass/volume] in Ser um or PlasmaOrdered By: Pérez Barcenas on 11-08-2023 Calcium [Mass/Vol] 9.7 mg/dL Normal 8.6-10.3 [facility] Comment on above: Order Comment: Reaso n for Exam Overweight (BMI 25.0-29.9);Elevated alkaline phosphatase lev Performed By: #### L IPID, CMP, TSH3, A1C [facility] eA #### [facility] [address] [place] [address] [place] #### APOB, LIPA #### [facility] , Carbon dioxide, total [Moles /volume] in Serum or PlasmaOrdered By: Pérez Barcenas on 11-08-2023 CO2 [Moles/Vol] 29.4 mmol/L Normal 21.0-31.0 [facility] Comment on above: Order Comment: Reaso n for Exam Overweight (BMI 25.0-29.9);Elevated alkaline phosphatase lev Performed By: #### L IPID, CMP, TSH3, [address] eA #### [facility] [address] [place] [address] [place] #### APOB, LIPA #### [facility] , Chloride [Moles/volume] in S emiliana or PlasmaOrdered By: Pérez Barcenas on 11-08-2023 Chloride [Moles/Vol] 105 mmol/L Normal 98-107 [facility] Comment on above: Order Comment: Reaso n for Exam Overweight (BMI 25.0-29.9);Elevated alkaline phosphatase lev Performed By: #### L IPID, CMP, TSH3, [address] eA #### [place] [address] [place] #### APOB, LIPA #### [facility] , Cholesterol [Mass/volume] in Serum or PlasmaOrdered By: Pérez Barcenas on 11-08-2023 Cholesterol [Mass/Vol] 128 mg/dL Low 140-200 [facility] Comment on above: Chol less than 200 m g/dl low riskChol 201-239 mg/dl borderline riskChol 240 mg/dl and greater high risk Order Comment: Reaso n for Exam Overweight (BMI 25.0-29.9);Elevated alkaline phosphatase lev Result Comment: Chol less than 200 mg/dl low risk Chol 201-239 mg/dl borderline risk Chol 240 mg/dl and greater high risk Performed By: #### L IPID, CMP, TSH3, A1C WTH eA #### [facility] [address] #### APOB, LIPA #### [facility] , Cholesterol in LDL Calc [Mas s/Vol]Ordered By: Pérez Barcenas on 11-08-2023 Cholesterol in LDL [Mass/Vol] 70 mg/dL 0-100 [facility] Comment on above: LDL ATP III CLASSIFI CATIONLDL less than 100 mg/dL OptimalLDL 100-129 mg/dL Near or above optimalLDL 130-159 mg/dL Borderline highLDL 160-189 mg/dL HighLDL greater than 189 mg/dL Very high Cholesterol in VLDL Calc [Ma ss/Vol]Ordered By: Pérez Barcenas on 11-08-2023 Cholesterol in VLDL [Mass/Vol] 10 mg/dL [facility] Comprehensive Metabolic Pane yogi 11-08-2023 Albumin [Mass/Vol] 4.655101 g/dL Normal 3.5-5.7 g/dL [facility] Other Bilirubin [Mass/Vol] 0.6349328 mg/dL Normal 0.3- 1.0 mg/dL [facility] Other Calcium [Mass/Vol] 9.3836441 mg/dL Normal 8.6-10 .3 mg/dL [facility] Other CO2 [Moles/Vol] 29.88125960 mmol/L Normal 21.0-3 1.0 mmol/L [facility] Other Creatinine [Mass/Vol] 0.47503333 mg/dL Normal 0. 60-1.20 mg/dL [facility] Other Potassium [Moles/Vol] 4.54742825 mmol/L Normal 3 .5-5.1 mmol/L [facility] Other Protein [Mass/Vol] 6.082743 g/dL Normal 6.4-8.9 g/dL [facility] Other Comprehensive Metabolic Panel 2.2 g/dL [facility] Other Albumin [Mass/Vol] 4.3 g/dL Normal 3.5-5.7 [facility] Comment on above: Order Comment: Reaso n for Exam Overweight (BMI 25.0-29.9);Elevated alkaline phosphatase lev Performed By: #### L IPID, CMP, TSH3, A1C WTH eA #### [facility] [address] [place] [address] [place] #### APOB, LIPA #### [facility] , GFR/1.73 sq M.predicted MDRD (S/P/Bld) [Vol rate/Area] mL/min/{1.73_m2} Normal [facility] Other Comment on above: Order Comment: Reaso n for Exam Overweight (BMI 25.0-29.9);Elevated alkaline phosphatase lev Performed By: #### L IPID, CMP, TSH3, A1C WTH eA #### [facility] [address] [place] [address] [place] #### APOB, LIPA #### [facility] , Creatinine [Mass/volume] in Serum or PlasmaOrdered By: Pérez Barcenas on 11-08-2023 Creatinine [Mass/Vol] 0.68 mg/dL Normal 0.60-1.20 [facility] Comment on above: Order Comment: Reaso n for Exam Overweight (BMI 25.0-29.9);Elevated alkaline phosphatase lev Performed By: #### L IPID, CMP, TSH3, A1C WTH eA #### [facility] [address] [place] [address] [place] #### APOB, LIPA #### [facility] , Glucose [Mass/volume] in Ser um or PlasmaOrdered By: Pérez Barcenas on 11-08-2023 Glucose [Mass/Vol] 80 mg/dL Normal 70-100 [facility] Comment on above: ADA recommended refe rence rangeRandom Glucose Reference Range is dependent on time and content of last meal. Glucose of more than 200 mg/dL in a nonstressed, ambulatory subject supports the diagnosis of Diabetes Mellitus. Order Comment: Reaso n for Exam Overweight (BMI 25.0-29.9);Elevated alkaline phosphatase lev Result Comment: [place] om Glucose Reference Range is dependent on time and content of last meal. Glucose of more than 200 mg/dL in a nonstressed, ambulatory subject supports the diagnosis of Diabetes Mellitus. ADA recommended reference range Performed By: #### L IPID, CMP, TSH3, A1C WTH eA #### [facility] [address] [place] [address] [place] #### APOB, LIPA #### [facility] , Glucose mean value [Mass/vol ume] in Blood Estimated from glycated hemoglobinOrdered By: Pérez Barcenas on 11-08-2023 Average glucose Estimated from glycated hemoglobin (Bld) [Mass/Vol] 97 mg/dL [facility] Hemoglobin A1c percentageOrd ered By: Pérez Barcenas on 11-08-2023 HbA1c (Bld) [Mass fraction] 5.0 % Normal 4.3-5.6 [facility] Comment on above: Increased risk for d iabetes: 5.7 - 6.4diabetes: >6.4glycemic control for adults with diabetes: <7.0 Order Comment: Reaso n for Exam Overweight (BMI 25.0-29.9);Elevated alkaline phosphatase lev Result Comment: Incr eased risk for diabetes: 5.7 - 6.4 diabetes: >6.4 glycemic control for adults with diabetes: <7.0 Performed By: #### L IPID, CMP, TSH3, A1C WTH eA #### [facility] [address] [place] [id number] [place] #### APOB, LIPA #### [facility] , Lipid Panelon 11-08-2023 Cholesterol in LDL Elph Qn 70 mg/dL Normal 0-100 mg/dL [facility] Other Lipid Panel 54 mg/dL Normal 0-149 mg/dL [facility] Other Lipid Panel 10 mg/dL [facility] Other LDL Cholesterol,Calculated 70 mg/dL Normal 0-100 [facility] Comment on above: Order Comment: Reaso n for Exam Overweight (BMI 25.0-29.9);Elevated alkaline phosphatase lev Result Comment: LDL ATP III CLASSIFICATION LDL less than 100 mg/dL Optimal LDL 100-129 mg/dL Near or above optimal LDL 130-159 mg/dL Borderline high LDL 160-189 mg/dL High LDL greater than 189 mg/dL Very high Performed By: #### L IPID, CMP, TSH3, A1C [facility] eA #### [facility] [address] [place] [address] [place] #### APOB, LIPA #### [facility] , Triglyceride w/Reflex 54 mg/dL Normal 0-149 [facility] Comment on above: Order Comment: Reaso n for Exam Overweight (BMI 25.0-29.9);Elevated alkaline phosphatase lev Result Comment: TRIG ATP III CLASSIFICATION TRIG less than 150 mg/dL Normal TRIG 150-199 mg/dL Borderline high TRIG 200-500 mg/dL High TRIG greater than 500 mg/dL Very high Standard traceable to the Center for Disease Conrtrol and Prevention (CDC) test method. Performed By: #### L IPID, CMP, TSH3, A1C [facility] eA #### [facility] [address] [place] [address] [place] #### APOB, LIPA #### [facility] , VLDL CHOLESTEROL 10 mg/dL Normal [facility] Comment on above: Order Comment: Reaso n for Exam Overweight (BMI 25.0-29.9);Elevated alkaline phosphatase lev Performed By: #### L IPID, CMP, TSH3, A1C [facility] eA #### [facility] [address] [place] [address] [place] #### APOB, LIPA #### [facility] , Lipoprotein (a)on 11-08-2023 Lipoprotein a [Mass/Vol] 61.3 mg/dL Normal <75.0 [facility] Comment on above: Order Comment: Reaso n for Exam Overweight (BMI 25.0-29.9);Elevated alkaline phosphatase lev Result Comment: Note : Values greater than or equal to 75.0 nmol/L may indicate an independent risk factor for CHD, but must be evaluated with caution when applied to non- populations due to the influence of genetic factors on Lp(a) across ethnicities. Performed at: - [facility] [id number] Drone Pilot: Roland Martinez PhD, Phone: [phone] Performed By: #### L IPID, CMP, TSH3, A1C [facility] eA #### [address] #### APOB, LIPA #### [facility] , No Panel InformationOrdered By: Pérez Barcenas on 11-08-2023 Estimated GFR (CKD-EPI) > 60.0 mL/Min [facility] Creatinine Clearance (Chem N/A [facility] Potassium [Moles/volume] in Serum or PlasmaOrdered By: Pérez Barcenas on 11-08-2023 Potassium [Moles/Vol] 4.3 mmol/L Normal 3.5-5.1 [facility] Comment on above: Order Comment: Reaso n for Exam Overweight (BMI 25.0-29.9);Elevated alkaline phosphatase lev Performed By: #### L IPID, CMP, TSH3, A1C [facility] eA #### [facility] [address] [place] [address] [place] #### APOB, LIPA #### [facility] , Protein [Mass/volume] in Ser um or PlasmaOrdered By: Pérez Barcenas on 11-08-2023 Protein [Mass/Vol] 6.5 g/dL Normal 6.4-8.9 [facility] Comment on above: Order Comment: Reaso n for Exam Overweight (BMI 25.0-29.9);Elevated alkaline phosphatase lev Performed By: #### L IPID, CMP, TSH3, A1C [facility] eA #### [facility] [address] [place] [address] [place] #### APOB, LIPA #### [facility] , Serum globulin measurement b y calculation (mass/volume)Ordered By: Pérez Barcenas on 11-08-2023 Globulin (S) [Mass/Vol] 2.2 g/dL Normal [facility] Comment on above: Order Comment: Reaso n for Exam Overweight (BMI 25.0-29.9);Elevated alkaline phosphatase lev Performed By: #### L IPID, CMP, TSH3, A1C WTH eA #### [facility] [address] [place] [address] [place] #### APOB, LIPA #### [facility] , Serum or plasma albumin/glob ulin mass ratioOrdered By: Pérez Barcenas on 11-08-2023 Albumin/Globulin [Mass ratio] 2.0 {ratio} Normal [facility] Comment on above: Order Comment: Reaso n for Exam Overweight (BMI 25.0-29.9);Elevated alkaline phosphatase lev Performed By: #### L IPID, CMP, TSH3, A1C WTH eA #### [facility] [address] [place] [address] [place] #### APOB, LIPA #### [facility] , Serum or plasma anion gap de terminationOrdered By: Pérez Barcenas on 11-08-2023 Anion gap [Moles/Vol] 8.9 mmol/L Normal 6.0-15.0 [facility] Comment on above: Order Comment: Reaso n for Exam Overweight (BMI 25.0-29.9);Elevated alkaline phosphatase lev Performed By: #### L IPID, CMP, TSH3, A1C WTH eA #### [facility] [address] [place] [address] [place] #### APOB, LIPA #### [facility] , Serum or plasma high density lipoprotein (HDL) cholesterol measurementOrdered By: Pérez Barcenas on 11-08-2023 Cholesterol in HDL [Mass/Vol] 47 mg/dL Normal 23-92 [facility] Comment on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 evidence of prior parenchymal hemorrhage on the gradient echo images. Mass Lesion/ Mass Effect: No evidence of an intracranial mass or extra-axial fluid collection. No abnormal parenchymal or leptomeningeal enhancement is noted following contrast administration. No significant mass effect. Chronic Change: The white matter is within normal limits of signal intensity for age. Parenchyma: No significant volume loss for age. Low-lying cerebellar tonsils, extending just below the level of foramen magnum by 3 mm on the left, 2 mm on the right. Ventricles: Normal caliber and morphology. Skull Base: Hypothalamic and pituitary region are grossly normal. Craniocervical junction is normal. No significant marrow replacement process. Vasculature: Major intracranial arterial structures, and dural venous sinuses show typical flow void, suggesting patency by spin echo criteria. Other: The visualized paranasal sinuses and mastoid air cells are clear. The orbits and extracranial soft tissues are unremarkable. MRV BRAIN: The superior sagittal sinus, straight sinus, transverse sinuses, sigmoid sinuses and visualized internal jugular veins as well as internal cerebral veins, basal veins of Jerson and vein of Antony demonstrate flow-related signal and enhancement indicating patency. DIVISION OF RADIOLOGY [facility] * * *Final Report* * * DATE OF EXAM: Dec 29 2021 12:13PM LN 0336 - MRV BRAIN WO/W IVCON / PROCEDURE REASON: multiple diagnoses * * * * Physician Interpretation * * * * EXAMINATION: MRI BRAIN WO/W IVCON, MRV BRAIN WO/W IVCON HISTORY: Thunderclap headache. Headache after Covid infection. TECHNIQUE: Routine brain MRI protocol without and with contrast including diffusion and gradient echo images. 2-D gzwf-wy-fnaimb MRV and postcontrast MRV of the brain. 3D and maximum intensity projection images were created, reviewed and archived on the imaging workstation under physician supervision. MQ: MRBWOW_2 Contrast: 18 mL Dotarem IV COMPARISON: None. RESULT: MRI BRAIN: Acute Change: There is no evidence of restricted diffusion to suggest an acute infarct. Hemorrhage: No evidence of prior parenchymal hemorrhage on the gradient echo images. Mass Lesion/ Mass Effect: No evidence of an intracranial mass or extra-axial fluid collection. No abnormal parenchymal or leptomeningeal enhancement is noted following contrast administration. No significant mass effect. Chronic Change: The white matter is within normal limits of signal intensity for age. Parenchyma: No significant volume loss for age. Low-lying cerebellar tonsils, extending just below the level of foramen magnum by 3 mm on the left, 2 mm on the right. Ventricles: Normal caliber and morphology. Skull Base: Hypothalamic and pituitary region are grossly normal. Craniocervical junction is normal. No significant marrow replacement process. Vasculature: Major intracranial arterial structures, and dural venous sinuses show typical flow void, suggesting patency by spin echo criteria. Other: The visualized paranasal sinuses and mastoid air cells are clear. The orbits and extracranial soft tissues are unremarkable. MRV BRAIN: The superior sagittal sinus, straight sinus, transverse sinuses, sigmoid sinuses and visualized internal jugular veins as well as internal cerebral veins, basal veins of Jerson and vein of Antony demonstrate flow-related signal and enhancement indicating patency. IMPRESSION IMPRESSION: MRI BRAIN: No evidence of an acute intracranial process. Low-lying cerebellar tonsils. MRV BRAIN: No evidence of dural venous sinus thrombosis. Crew Manager: [facility] Transcribe Date/Time: Dec 29 2021 12:34P Dictated by : MILTON WAGNER MD This examination was interpreted and the report reviewed and electronically signed by: MILTON WAGNER MD on Dec 29 2021 12:40PM [facility] Panel Informationon 12-29 IMPRESSION: MRI BRAIN: No evidence of an acute intracranial process. Low-lying cerebellar tonsils. MRV BRAIN: No evidence of dural venous sinus thrombosis. [facility] Transcribe Date/Time: Dec 29 2021 12:34P Dictated by : MILTON WAGNER MD This examination was interpreted and the report reviewed and electronically signed by: MILTON WAGNER MD on Dec 29 2021 12:40PM [facility] DIVISION OF RADIOLOGY Radiology Study observation (narrative) [facility] No Panel InformationOrdered By: Ccf Provider on 12-29-2021 [facility] ANKLE RIGHT 3 VWSon 06-13-20 17 ANKLE RIGHT 3 VWS [facility] [address] [place] [address] Patient Name: CHARIS ALLEN : 2000Sex: FAge: Race: WhiteMRN: [id number]. Location: EMERPatient Status: EVisit #: [id number] Date: 06/13/2017 5:40:00 PMCompleted Date: 06/13/2017 05:54 PMRequesting Provider: SREEKANTH JOHNSON Attending Provider: SREEKANTH JOHNSON Report Copy To: Signs & Symptoms: Pain ( specify Location)History: Patient history not availableComments: R/O FXExam: ANKLE RIGHT 3 VWSAccession #: [id number] ANK LE RIGHT 3 VWS 06/13/2017 5:54 PM EDT SIGNS AND SYMPTOMS: Pain ( specify Location) TECHNOLOGIST COMMENTS: Patient states rolling right ankle at volleyball practice. Pain is on the medial and lateral aspect or right ankle. QUESTION FOR THE RADIOLOGIST: R/O FX PROTOCOL: AP,Lateral and Oblique views were obtained. COMPARISON: None FINDINGS: Normal osseous alignment. No fractures identified. Articular surfaces are smooth and regular. Minimal soft tissue swelling. No significant joint effusion. IMPRESSION: No osseous abnormality. Electronically signed by:Faye Ramires M.D.. Transcribed by: [email or web address], User Resident: Electronically Signed by: FAYE RAMIRES @ 06/13/2017 06:44 PM Normal [facility] Comment on above: Order Comment: R/O F X Vital Signs Date Time Vital Sign Value Performing Clinician Facility 11-16-2024 02:37-0500 Diastolic blood pressure 71 mm[Hg] Akiko Acosta MD Work Phone: [employer] [facility] 11-16-2024 02:37-0500 Heart rate 70 /min [facility]iko [facility] MD [facility] 11-16-2024 02:37-0500 Respiratory rate 13 /min Akiko [facility]osta MD [facility] 11-16-2024 02:37-0500 SaO2% (BldA) [Mass fraction] 100 % Akiko Acosta MD Work Phone[facility] 11-16-2024 02:37-0500 Systolic blood pressure 106 mm[Hg] Akiko Acosta MD [facility] Phone[facility] 11-16-2024 00:53-0500 Body height 167.6 cm Akiko Acosta MD Work Phone: [employer] 11-16-2024 00:53-0500 Body mass index (BMI) [Ratio] 24.28 kg/m2 Akiko Acosta MD Work Phone: [employer] 11-16-2024 00:53-0500 Body weight 68.22 kg Akiko Acosta MD [facility] 11-16-2024 00:51-0500 Body temperature 97.59 [degF] Akiko Acosta MD Work Phone: Darek Page [facility] 10-23-2024 15:48-0500 Body mass index (BMI) [Ratio] 24.28 kg/m2 Jona Vann MD Work Phone: [facility] 10-23-2024 15:48-0500 Body weight 70.31 kg Jona Vann MD Work Phone: [facility] 10-23-2024 15:48-0500 Diastolic blood pressure 64 mm[Hg] Jona Vann MD Work Phone: [facility] 10-23-2024 15:48-0500 Systolic blood pressure 100 mm[Hg] Jona Vann MD Work Phone: [facility] 10-21-2024 13:50-0500 Body height 170.2 cm Anil Thapa DO Work Phone: [facility] 10-21-2024 13:50-0500 Body mass index (BMI) [Ratio] 23.65 kg/m2 Anil Thapa DO Work Phone: [facility] 10-21-2024 13:50-0500 Body temperature 97.11 [degF] Anil Thapa DO Work Phone: [facility] 10-21-2024 13:50-0500 Body weight 68.49 kg Anil Thapa DO Work Phone: [facility] 10-21-2024 13:50-0500 Diastolic blood pressure 72 mm[Hg] Anil Thapa DO Work Phone: [facility] 10-21-2024 13:50-0500 Heart rate 75 /min Anil Thapa DO Work Phone: [facility] 10-21-2024 13:50-0500 SaO2% (BldA) [Mass fraction] 99 % Anil Thapa DO Work Phone: [facility] 10-21-2024 13:50-0500 Systolic blood pressure 108 mm[Hg] Anil Thapa DO Work Phone: [facility] 09-11-2024 10:34-0500 Body height 167.6 cm Osbaldo-Catie Vu DO Work Phone: [facility] 09-11-2024 10:34-0500 Body mass index (BMI) [Ratio] 23.38 kg/m2 Osbaldo-Catie Vu DO Work Phone: [facility] 09-11-2024 10:34-0500 Body temperature 97.59 [degF] Osbaldo-Catie Vu DO Work Phone: [facility] 09-11-2024 10:34-0500 Body weight 65.68 kg Osbaldo-Catie Vu DO Work Phone: [facility] 09-10-2024 16:03-0500 Body height 167.6 cm Mich Verde MD Work Phone: [facility] 09-10-2024 16:03-0500 Body mass index (BMI) [Ratio] 24.37 kg/m2 Mich Verde MD Work Phone: [facility] 09-10-2024 16:03-0500 Body weight 68.49 kg Mich Verde MD Work Phone: [facility] 09-10-2024 16:03-0500 Respiratory rate 18 /min Mich Verde MD Work Phone: [facility] 08-20-2024 14:49-0500 Body height 167.6 cm [facility] 08-20-2024 14:49-0500 Body mass index (BMI) [Ratio] 22.11 kg/m2 [facility] 08-20-2024 14:49-0500 Body weight 62.14 kg [facility] 3 [facility] 08-13-2024 14:14-0500 Body mass index (BMI) [Ratio] 23.81 kg/m2 Jona Vann MD Work Phone: [facility] 08-13-2024 14:14-0500 Body weight 68.95 kg Jona Vann MD Work Phone: [facility] 08-13-2024 14:14-0500 Diastolic blood pressure 58 mm[Hg] Jona Vann MD Work Phone: [facility] 08-13-2024 14:14-0500 Systolic blood pressure 100 mm[Hg] Jona Vann MD Work Phone: [facility] 08-07-2024 10:10-0400 Body height 167.6 cm Osbaldo-Catie Vu DO Work Phone: [facility] 08-07-2024 10:10-0400 Body mass index (BMI) [Ratio] 24.82 kg/m2 Osbaldo-Catie Vu DO Work Phone: [facility] 08-07-2024 10:10-0400 Body temperature 98.2 [degF] Osbaldo-Catie Vu DO Work Phone: [facility] 08-07-2024 10:10-0400 Body weight 69.76 kg Osbaldo-Catie Vu DO Work Phone: [facility] 07-17-2024 14:48-0400 Body height 170.2 cm Harmony German PA Work Phone: [facility] 07-17-2024 14:48-0400 Body mass index (BMI) [Ratio] 24.18 kg/m2 Harmony German PA Work Phone: [facility] 07-17-2024 14:48-0400 Body temperature 97.7 [degF] Harmony German PA Work Phone: [facility] 07-17-2024 14:48-0400 Body weight 70.03 kg Harmony German PA Work Phone: [facility] 07-17-2024 14:48-0400 Diastolic blood pressure 68 mm[Hg] Harmony German PA Work Phone: [facility] 07-17-2024 14:48-0400 Heart rate 70 /min Harmony German PA Work Phone: [facility] 07-17-2024 14:48-0400 SaO2% (BldA) [Mass fraction] 99 % Harmony MCDANIEL Work Phone: [facility] 07-17-2024 14:48-0400 Systolic blood pressure 116 mm[Hg] Harmony MCDANIEL Work Phone: [facility] 07-15-2024 15:38-0400 Body height 170.2 cm Mich Verde MD Work Phone: [facility] 07-15-2024 15:38-0400 Body mass index (BMI) [Ratio] 23.65 kg/m2 Mich Verde MD Work Phone: [facility] 07-15-2024 15:38-0400 Body weight 68.49 kg Mich Verde MD Work Phone: [facility] 07-03-2024 10:56-0400 Body height 170.2 cm Tiesha Fredi PA-C Work Phone: [facility] 07-03-2024 10:56-0400 Body mass index (BMI) [Ratio] 23.65 kg/m2 Tiesha Nursery PA-C Work Phone: [facility] 07-03-2024 10:56-0400 Body weight 68.49 kg Tiesha Nursery PA-C Work Phone: [facility] 06-28-2024 02:48-0400 Diastolic blood pressure 58 mm[Hg] DO Katie Thapa Work Phone: [facility] 06-28-2024 02:48-0400 Heart rate 85 /min DO Katie Thapa Work Phone: [facility] 06-28-2024 02:48-0400 Respiratory rate 18 /min DO Katie Thapa Work Phone: [facility] 06-28-2024 02:48-0400 SaO2% (BldA) [Mass fraction] 100 % DO Katie Thapa Work Phone: [facility] 06-28-2024 02:48-0400 Systolic blood pressure 98 mm[Hg] DO Katie Thapa Work Phone: [facility] 06-27-2024 22:17-0400 Body height 170.18 cm DO Katie Thapa Work Phone: [facility] 06-27-2024 22:17-0400 Body temperature 97.9 [degF] DO Katie Thapa Work Phone: [facility] 06-27-2024 22:17-0400 Body weight 69.75 kg DO Katie Thapa Work Phone: [facility] 05-21-2024 13:37-0400 Body height 170.2 cm [facility] 05-21-2024 13:37-0400 Body mass index (BMI) [Ratio] 24.31 kg/m2 [facility] 05-21-2024 13:37-0400 Body temperature 98.2 [degF] [facility] 05-21-2024 13:37-0400 Body weight 70.4 kg [facility] 05-21-2024 13:37-0400 Diastolic blood pressure 67 mm[Hg] [facility] 05-21-2024 13:37-0400 Heart rate 83 /min [facility] 05-21-2024 13:37-0400 Respiratory rate 18 /min [facility] [employer] 05-21-2024 13:37-0400 SaO2% (BldA) [Mass fraction] 100 % [facility] 05-21-2024 13:37-0400 Systolic blood pressure 108 mm[Hg] [facility] 03-18-2024 14:24-0400 Body height 170.2 cm Mich [facility]rede MD [facility] 03-18-2024 14:24-0400 Body mass index (BMI) [Ratio] 24.12 kg/m2 Mich Verde MD [facility] 03-18-2024 14:24-0400 Body temperature 98.4 [degF] Mich Verde MD [facility] 03-18-2024 14:24-0400 Body weight 69.85 kg Mich Verde MD Work Phone: [facility] 03-06-2024 16:25-0400 Body height 167.6 cm Tiesha Nursery PA-C Work Phone[facility] 03-06-2024 16:25-0400 Body mass index (BMI) [Ratio] 24.86 kg/m2 Tiesha Fredi PA-C Work Phone[facility] 03-06-2024 16:25-0400 Body temperature 98.6 [degF] Tiesha Nursery PA-C Work Phone[facility] 03-06-2024 16:25-0400 Body weight 69.85 kg Tiesha Fredi PA-C [facility] 12-19-2023 12:47-0400 Body height 167.6 cm Tiesha Nursery PA-C Work Phone[facility] 12-19-2023 12:47-0400 Body mass index (BMI) [Ratio] 26.21 kg/m2 Tiesha Nursery PA-C Work Phone: [facility] 12-19-2023 12:47-0400 Body temperature 98.4 [degF] Tiesha Fredi PA-C Work Phone[facility] 12-19-2023 12:47-0400 Body weight 73.66 kg Tiesha Nursery PA-C Work Phone: [facility] 11-08-2023 07:45-0500 Body height 167.64 cm Pérez Barcenas Other [employer] Other 11-08-2023 07:45-0500 Body mass index (BMI) [Ratio] 28.57 kg/m2 [employer] Other [employer] Other 11-08-2023 07:45-0500 Body weight 80.29 kg [employer] Other [employer] Other 11-08-2023 07:45-0500 Diastolic blood pressure 65 mm[Hg] [employer] Other [employer] Other 11-08-2023 07:45-0500 Respiratory rate 18 /min [employer] Other [employer] Other 11-08-2023 07:45-0500 SaO2% (BldA) [Mass fraction] 98 % [employer] Other [employer] Other 11-08-2023 07:45-0500 Systolic blood pressure 102 mm[Hg] [employer] Other [employer] Other 08-17-2023 21:29-0500 Body temperature 98.1 [degF] DO Katie Castillo Bonitamagui Work Phone: [facility] 08-17-2023 21:29-0500 Diastolic blood pressure 72 mm[Hg] DO Katie Castillo Bonitamagui Work Phone: [facility] 08-17-2023 21:29-0500 Heart rate 83 /min DO Katie Thapa Work Phone: [facility] 08-17-2023 21:29-0500 Respiratory rate 16 /min DO Katie Thapa Work Phone: [facility] 08-17-2023 21:29-0500 SaO2% (BldA) [Mass fraction] 98 % DO Katie Thapa Work Phone: [facility] 08-17-2023 21:29-0500 Systolic blood pressure 110 mm[Hg] DO Katie Thapa Work Phone: [facility] 08-17-2023 18:23-0500 Body height 167.64 cm DO Katie Thapa Work Phone: [facility] 08-17-2023 18:23-0500 Body mass index (BMI) [Ratio] 29 kg/m2 DO Katie Thapa Work Phone: 4(137)699-137051 [place] [address] 08-17-2023 18:23-0500 Body weight 81.64 kg DO Katie Thapa Work Phone: 9(419)118-118251 [place] [address] 08-17-2023 18:18-0500 Inhaled oxygen flow rate 10 L/min DO Katie Thapa Work Phone: 8(488)336-896551 [place] [address] 08-03-2023 18:45-0400 Diastolic blood pressure 75 mm[Hg] DO Katie Thapa Work Phone: 8(133)341-973651 [place] [address] 08-03-2023 18:45-0400 Heart rate 98 /min DO Katie Thapa Work Phone: 2(049)801-236551 [place] [address] 08-03-2023 18:45-0400 Respiratory rate 16 /min DO Katie Thapa Work Phone: [facility] 08-03-2023 18:45-0400 SaO2% (BldA) [Mass fraction] 98 % DO Katie Thapa Work Phone: [facility] 08-03-2023 18:45-0400 Systolic blood pressure 108 mm[Hg] DO Katie Thapa Work Phone: 7(630)865-457551 [place] [address] 08-03-2023 17:28-0400 Inhaled oxygen flow rate 6 L/min DO Katie Thapa Work Phone: 9(561)938-726451 [place] [address] 08-03-2023 17:13-0400 Body temperature 97 [degF] DO Katie Thapa Work Phone: [facility] 08-03-2023 16:26-0400 Body height 167.64 cm DO Katie Thapa Work Phone: [facility] 08-03-2023 16:26-0400 Body mass index (BMI) [Ratio] 29 kg/m2 DO Katie Thapa Work Phone: [facility] 08-03-2023 16:26-0400 Body weight 81.64 kg DO Katie Thapa Work Phone: [facility] 06-09-2023 15:15-0400 Body height 170.18 cm Arti Barahona Other [employer] Other 06-09-2023 15:15-0400 Body mass index (BMI) [Ratio] 29.97 kg/m2 Arti Barahona Other [employer] Other 06-09-2023 15:15-0400 Body temperature 98.7 [degF] Arti Barahona Other [employer] Other 06-09-2023 15:15-0400 Body weight 86.82 kg Arti Barahona Other [employer] Other 06-09-2023 15:15-0400 Diastolic blood pressure 72 mm[Hg] rAti Barahona Other [employer] Other 06-09-2023 15:15-0400 Respiratory rate 18 /min Arti Barahona Other [employer] Other 06-09-2023 15:15-0400 SaO2% (BldA) [Mass fraction] 99 % Arti Barahona Other [employer] Other 06-09-2023 15:15-0400 Systolic blood pressure 117 mm[Hg] Arti Barahona Other [facility] [employer] Other 06-01-2023 09:06-0400 Body height 167.6 cm Mara Alcaraz MD Work Phone: [facility] 06-01-2023 09:06-0400 Body weight 88.81 kg Mara Alcaraz MD Work Phone: [facility] 04-04-2023 15:33-0400 Body weight 86.[address] Work Phone: [facility] 11-14-2022 11:32-0500 Body height 167.6 cm Sreekanth Samples Work Phone: [facility] 11-14-2022 11:32-0500 Body weight 90.72 kg Sreekanth Samples Work Phone: [facility] 11-14-2022 11:32-0500 Diastolic blood pressure 67 mm[Hg] Sreekanth Samples Work Phone: [facility] 11-14-2022 11:32-0500 Heart rate 85 /min Sreekanth Samples Work Phone: [facility] 11-14-2022 11:32-0500 SaO2% (BldA) [Mass fraction] 100 % Sreekanth Samples Work Phone: [facility] 11-14-2022 11:32-0500 Systolic blood pressure 112 mm[Hg] Sreekanth Samples Work Phone: [facility] 08-04-2022 13:03-0400 Heart rate 92 /min Lul Mcbride MD Work Phone: [facility] 08-04-2022 13:03-0400 SaO2% (BldA) [Mass fraction] 100 % Lul Mcbride MD Work Phone: [facility] 06-24-2022 18:35-0400 Body height 170.18 cm Zully Mendoza Other [employer] Other 06-24-2022 18:35-0400 Body mass index (BMI) [Ratio] 29.75 kg/m2 Zully Mendoza Other [employer] Other 06-24-2022 18:35-0400 Body temperature 99.3 [degF] Zully Mendoza Other [employer] Other 06-24-2022 18:35-0400 Body weight 86.18 kg Zully Mendoza Other [employer] Other 06-24-2022 18:35-0400 Respiratory rate 18 /min Zully Mendoza Other [employer] Other 06-24-2022 18:35-0400 SaO2% (BldA) [Mass fraction] 97 % Zully Mendoza Other [employer] Other 12-30-2021 08:11-0400 Diastolic blood pressure 71 mm[Hg] Sreekanth Samples Work Phone: [facility] 12-30-2021 08:11-0400 Heart rate 76 /min Sreekanth Samples Work Phone: [facility] 12-30-2021 08:11-0400 Systolic blood pressure 117 mm[Hg] Sreekanth Samples Work Phone: [facility] NEGATED: Highlighted row BMI (Body Mass Index) Margarita [facility] NEGATED: Highlighted row Body Temperature Margarita [facility] NEGATED: Highlighted row Body weight Margarita [facility] NEGATED: Highlighted row BP Diastolic Margarita [facility] NEGATED: Highlighted row BP Systolic Margarita [facility] NEGATED: Highlighted row Height Margarita [facility] NEGATED: Highlighted row Pulse (Heart Rate) Margarita [facility] NEGATED: Highlighted row Pulse [facility] NEGATED: Highlighted row Respiratory Rate [facility] Encounters Encounter Date Encounter Type Care Provider Facility Start: 11-22-2024 End: 11-22-2024 Telephone encounter Anil Thapa DO Work Phone: [facility] Comment on above: Med Refill Start: 11-16-2024 End: 11-16-2024 Emergency department patient visit Akiko Acosta MD Work Phone: [facility] Emergency Department Comment on above: Acute gastroenteriti s (Primary Dx) Start: 11-04-2024 End: 11-04-2024 ambulatory [facility] Start: 10-28-2024 End: 10-29-2024 Orders Only Jona Vann MD Work Phone: [facility] Comment on above: Acute vaginitis (Leslie sage Dx) Start: 10-23-2024 End: 10-23-2024 Office outpatient visit 15 minutes Jona Vann MD Work Phone: [facility] Comment on above: Acute vaginitis (Leslie sage Dx); Vaginal burning; Vaginal itching; Vaginal discharge; Vaginal odor; Amenorrhea Start: 10-23-2024 End: 10-23-2024 ambulatory JONA VANN Not Available Start: 10-21-2024 End: 10-21-2024 Bamboo flowsheet Anil Thapa DO Work Phone: [facility] Start: 10-21-2024 End: 10-21-2024 Bamboo flowsheet Anil Thapa DO Work Phone: [facility] Start: 10-21-2024 End: 10-21-2024 ambulatory ANIL THAPA Not Available Start: 10-21-2024 End: 10-21-2024 Office outpatient visit 15 minutes Anil Thapa DO Work Phone: [facility] Comment on above: Attention deficit hy peractivity disorder (ADHD), combined type (CMS/HCC) Start: 09-18-2024 End: 09-18-2024 Refill Gm Gomez GAYE Work Phone: [facility] Comment on above: Attention deficit hy peractivity disorder (ADHD), combined type ([facility]) Start: 09-12-2024 End: 09-12-2024 Refill Mary Ann Levin MD Work Phone: Dermatology Comment on above: Refill Request Start: 09-11-2024 End: 09-11-2024 ambulatory OSBALDO-CATIE VU [facility] Start: 09-11-2024 End: 09-11-2024 Patient encounter procedure Osbaldo-Catie Vu DO Work Phone: [facility] Comment on above: Lesion of tongue (Pr imary Dx) Start: 09-10-2024 End: 09-10-2024 Office outpatient visit 15 minutes Mich Verde MD Work Phone: [facility] Comment on above: Postop check (Primar y Dx) Start: 09-10-2024 Encounter for examination of ears and hearing without abnormal findings TIESHA [facility] Start: 09-10-2024 End: 09-10-2024 ambulatory MICH VERDE [facility] Comment on above: Hearing exam without abnormal findings (Primary Dx) Start: 09-10-2024 End: 09-10-2024 Patient encounter status Pp[facility] 2 [facility] Work Phone: Start: 09-04-2024 End: 09-11-2024 Telephone encounter Lata Otoole RN [facility] Start: 09-03-2024 End: 09-03-2024 Orders Only Osbaldo-Catie Vu DO Work Phone: [facility] Comment on above: Tongue swelling (Leslie sage Dx) Start: 08-29-2024 End: 08-29-2024 Telephone encounter Osbaldo-Catie Vu DO Work Phone: [facility] Start: 08-27-2024 End: 08-27-2024 Evaluation and management of inpatient CADEN THOMAS [facility] Start: 08-27-2024 End: 08-27-2024 Evaluation and management of inpatient OSBALDO-CATIE [facility] Start: 08-20-2024 End: 08-20-2024 Evaluation and management of inpatient ANIL THAPA [facility] Start: 08-20-2024 End: 08-20-[address] [facility] Phone Call Provider 3 [facility] Start: 08-17-2024 End: 08-17-2024 Orders Only Jona Vann MD Work Phone: [facility] Comment on above: Vaginitis due to Tri chomonas (Primary Dx) Start: 08-16-2024 End: 08-16-2024 Refill Harmony German PA Work Phone: [facility] 230 Comment on above: Attention deficit hy peractivity disorder (ADHD), combined type (CMS/HCC) Start: 08-13-2024 End: 08-13-2024 Patient encounter status Jona Vann MD Work Phone: [facility] Start: 08-13-2024 End: 08-13-2024 Periodic preventive med est patient 18-39 yrs Jona Vann MD Work Phone: [facility] Comment on above: Screening for malign ant neoplasm of cervix; Encounter for gynecological examination without abnormal finding; Anxiety, generalized (CMS/HCC); Vaginal discharge Start: 08-13-2024 End: 08-13-2024 ambulatory JONA VANN Not Available Start: 08-07-2024 End: 08-07-2024 Telephone encounter Osbaldo-Catie Vu DO Work Phone: [facility] Start: 08-07-2024 End: 08-07-2024 ambulatory OSBALDO-CATIE [facility] Start: 08-07-2024 End: 08-07-2024 Patient encounter procedure Osbaldo-Catie Vu DO Work Phone: [facility] Comment on above: Chronic throat pain (Primary Dx); Odynophagia; Tongue lesion; Post-nasal drip; Allergic rhinitis, unspecified seasonality, unspecified trigger Start: 07-25-2024 End: 07-25-2024 ambulatory ÁNGELA DELGADO Facility:[facility] Start: 07-25-2024 End: 07-25-2024 Patient encounter procedure Ángela Delgado DPM Work Phone: Podiatry Comment on above: Onychomycosis (Prima ry Dx); Tinea pedis, unspecified laterality Start: 07-17-2024 End: 07-17-2024 ambulatory HARMONY GERMAN Not Available Start: 07-17-2024 End: 07-17-2024 Office outpatient visit 15 minutes Harmony German PA Work Phone: [facility] Comment on above: Attention deficit hy peractivity disorder (ADHD), combined type ([facility]) Start: 07-17-2024 End: 07-17-2024 Telephone encounter Doris [facility] Start: 07-15-2024 End: 07-15-2024 Postop follow up visit related to original px Mich Verde MD Work Phone: [facility] Comment on above: Postop check (Primar y Dx) Start: 07-15-2024 End: 07-15-2024 ambulatory MICH VERDE [facility] Start: 07-10-2024 End: 07-10-2024 ambulatory [facility] Start: 07-03-2024 End: 07-03-2024 Office outpatient visit 10 minutes Tiesha Rai PA-C Work Phone: [facility] Comment on above: Chronic throat pain (Primary Dx); Odynophagia; Adenoid hypertrophy Start: 07-03-2024 End: 07-03-2024 ambulatory [facility] Start: 07-01-2024 End: 07-01-2024 Clinisync Result Encounter Generic External Data Provider [facility] External Department Unsolicited Start: 07-01-2024 End: 07-01-2024 Clinisync Result Encounter Generic External Data Provider [facility] External Department Unsolicited Start: 06-27-2024 End: 06-28-2024 Emergency department patient visit DO Katie Thapa Work Phone: [facility] Work Phone: Start: 06-24-2024 End: 06-24-2024 Clinisync Result Encounter Generic External Data Provider [facility] External Department Unsolicited Start: 06-24-2024 End: 06-24-2024 Clinisync Result Encounter Generic External Data Provider [facility] External Department Unsolicited Start: 06-17-2024 End: 06-17-2024 Refill Gm Gomez GAYE Work Phone: [facility] FM 230 Comment on above: Attention deficit hy peractivity disorder (ADHD), combined type ([facility]) Start: 06-04-2024 End: 06-04-2024 Evaluation and management of inpatient EMILIA Cas [facility] Start: 06-04-2024 End: 06-04-2024 Evaluation and management of inpatient [facility] Start: 05-21-2024 End: 05-21-2024 ambulatory [facility] Start: 05-21-2024 End: 05-21-2024 Patient encounter procedure [facility] Provider 4 [facility] Comment on above: Dysfunction of both eustachian tubes (Primary Dx) Start: 05-06-2024 End: 05-06-2024 ambulatory RYANN ZHANG Not Available Start: 03-18-2024 End: 03-18-2024 Office outpatient visit 25 minutes Mich Verde MD Work Phone: [facility] Comment on above: Dysfunction of both eustachian tubes (Primary Dx); Hearing loss of right ear, unspecified hearing loss type; Otomycosis- right ear; Dysfunction of right eustachian tube; Acute right otitis media Start: 03-18-2024 End: 03-18-2024 ambulatory [facility] Start: 03-07-2024 End: 03-07-2024 Orders Only Tiesha Rai PA-C Work Phone: [facility] Start: 03-06-2024 End: 03-06-[address] [facility] Start: 03-06-2024 End: 03-06-2024 Office outpatient visit 10 minutes Tiesha Rai PA-C Work Phone: [facility] Comment on above: Dysfunction of both eustachian tubes (Primary Dx); Otomycosis- right ear; Hearing loss of right ear, unspecified hearing loss type Start: 02-06-2024 End: 02-06-2024 ambulatory HARMONY GERMAN Not Available Start: 02-05-2024 End: 02-05-2024 Telephone encounter Jessica Best [facility] Start: 01-17-2024 End: 01-17-2024 ambulatory JONA VANN Not Available Start: 01-16-2024 End: 01-16-2024 [facility] Start: 12-26-2023 End: 12-26-2023 ambulatory ÁNGELA DELGADO Facility:[facility] Start: 12-26-2023 End: 12-26-2023 Patient encounter procedure Ángela Delgado DPM Work Phone: Podiatry Comment on above: Onychomycosis (Prima ry Dx); Ingrown toenail; Toe pain, bilateral; Tinea pedis, unspecified laterality Start: 12-25-2023 ambulatory Mary Ann Levin MD Work Phone: Dermatology Comment on above: Ance Start: 12-19-2023 End: 12-19-2023 Office outpatient visit 10 minutes Tiesha Rai PA-C Work Phone: [facility] Comment on above: Otomycosis- right ea r (Primary Dx); Dysfunction of both eustachian tubes; Hearing loss of right ear, unspecified hearing loss type Start: 12-19-2023 End: 12-19-2023 ambulatory [facility] Start: 12-07-2023 End: 12-07-2023 ambulatory ANIL THAPA Not Available Start: 11-21-2023 End: 11-21-2023 ambulatory SELF Facility:[facility] Start: 11-21-2023 End: 11-21-2023 Patient encounter procedure Ángela Cruz Calderon BILLS Work Phone: Podiatry Comment on above: Onychomycosis (Prima ry Dx); Ingrown toenail; Toe pain, bilateral; Medication monitoring encounter Start: 11-14-2023 End: 11-14-2023 ambulatory ANIL THAPA Not Available Start: 11-09-2023 End: 11-09-2023 ambulatory Pérez Barcenas Other [facility] Other Start: 11-09-2023 Encounter by arlene fair Pérez [facility] Start: 11-09-2023 Telephone encounter Pérez Arboleda [facility] Start: 11-08-2023 Nutrition therapy Pérez Barcenas [facility] Start: 11-08-2023 Telephone encounter Pérez Barcenas [facility] Start: 11-08-2023 Registered Recurring DO Katie Thapa Work Phone: [facility] Work Phone: Start: 11-08-2023 End: 11-08-2023 ambulatory Jona Vann Facility:[facility] Start: 11-08-2023 End: 11-08-2023 Patient encounter procedure DO Katie Thapa Work Phone: [facility] [place] Work Phone: Start: 11-08-2023 End: 11-08-2023 ambulatory DO Katie Thapa Work Phone: [facility] Other Start: 09-23-2023 End: 09-23-2023 ambulatory Patricia Salas Other [facility] [place] Other Start: 09-23-2023 Patient encounter procedure Patricia Lucasler [facility] [place] Start: 09-23-2023 Patient encounter procedure DO Katie Mesamarendenisse Work Phone: [facility]- Start: 08-17-2023 End: 08-17-2023 Admission to same day surgery center DO Katie Mesamarendenisse Work Phone: [facility] [place] Start: 08-17-2023 End: 08-17-2023 ambulatory DO Katie Thapa Work Phone: [facility] Work Phone: Start: 08-16-2023 Telephone encounter Mara barrios MD Work Phone: Internal Medicine Comment on above: Patient Question Start: 08-16-2023 End: 08-16-2023 ambulatory Mary Ann Levin MD Work Phone: Dermatology Comment on above: Acne vulgaris (Prima ry Dx) Start: 08-16-2023 End: 08-16-2023 Telemedicine consultation with patient Mary Ann Levin MD Work Phone: [facility] Start: 08-03-2023 End: 08-03-2023 Admission to same day surgery center DO Katie Mesamarendenisse Work Phone: [facility] [place] Start: 08-03-2023 End: 08-03-2023 ambulatory DO Katie Thapa Work Phone: [facility] Work Phone: Start: 07-18-2023 Telephone encounter Mary Ann reynolds MD Work Phone: Dermatology Comment on above: Medication Question Start: 06-25-2023 ambulatory Mary Ann Levin MD Work Phone: Dermatology Comment on above: Ance Start: 06-09-2023 End: 06-09-2023 ambulatory Arti Barahona Other [facility] [place] Other Start: 06-09-2023 Office outpatient vi sit 15 minutes Arti Barahona [facility] [place] Start: 06-08-2023 Telephone encounter Mara barrios MD Work Phone: Plastic Surgery Comment on above: Opened In Error Start: 06-06-2023 Telephone encounter Mara barrios MD Work Phone: Plastic Surgery Start: 06-01-2023 End: 06-01-2023 Patient encounter procedure Mara Alcaraz MD Work Phone: Plastic Surgery Comment on above: Mastodynia; Macromastia Start: 04-18-2023 ambulatory Dianna armendariz PA-C Work Phone: General Surgery Comment on above: Guillermina Start: 04-04-2023 End: 04-04-[address] Work Phone: Nutrition Therapy Comment on above: Dietary counseling a nd surveillance (Primary Dx); Class 1 obesity with body mass index (BMI) of 30.0 to 30.9 in adult, unspecified obesity type, unspecified whether serious comorbidity present Start: 04-04-2023 End: 04-04-2023 Telemedicine consultation with patient Kerry Cristobal RD Work Phone: [facility] Start: 01-03-2023 End: 01-04-[address] Diane THAPA Facility:[facility] Start: 12-30-2022 ambulatory [facility] Start: 12-29-2022 Telephone encounter Mary Ann reynolds MD Work Phone: Dermatology Comment on above: Patient Question Start: 12-16-2022 End: 12-17-2022 ambulatory Katie THAPA [facility] Start: 12-15-2022 End: 12-16-[address] DOCTOR MIKE Facility:[facility] Start: 12-14-2022 ambulatory JOE Katarzyna AN [facility] Start: 12-13-2022 ambulatory Wesly KEEN Facility: [facility] Start: 12-12-2022 ambulatory Wesly KEEN Facility: [facility] Start: 11-18-2022 ambulatory Ludy ROBLES PURIFICATION DIRECTOR Comment on above: Pt would like a neur ology 2nd opinion appt. 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] Start: 11-14-2022 End: 11-14-2022 Patient encounter procedure Sreekanth Sood MD Work Phone: Neurology Comment on above: Cerebellar tonsillar ectopia (HCC) (Primary Dx); Exertional headache; Cervicalgia; Macromastia Start: 11-02-2022 ambulatory Aminata husain RN [facility] Start: 11-02-2022 Patient encounter procedure Aminata Montgomery RN NURSE PURIFICATION DIRECTOR Comment on above: Referral Information Start: 10-21-2022 End: 10-22-[address] Diane THAPA Facility: Start: 10-13-2022 End: 10-14-2022 ambulatory DIANNA VILLA Facility:[facility] Start: 10-11-2022 End: 10-12-[address] MICHAEL FOURNIER . Facility: Start: 09-12-2022 End: 09-12-2022 Patient encounter procedure Mary Ann Levin MD Work Phone: Dermatology Comment on above: Acne vulgaris (Prima ry Dx); Eczema, unspecified type; Other eczema Start: 08-24-2022 Telephone encounter Mary Ann reynolds MD Work Phone: Dermatology Comment on above: Patient Update Start: 08-17-2022 End: 08-17-2022 ambulatory Mary Ann Levin MD Work Phone: Dermatology Comment on above: Acne vulgaris Start: 08-17-2022 End: 08-17-2022 Telemedicine consultation with patient Mary Ann Levin MD Work Phone: [facility] Start: 08-09-2022 ambulatory Mary Ann Levin MD Work Phone: Dermatology Comment on above: Ance medicine Start: 08-05-2022 Telephone encounter No Pcp [address] [place] [address] Comment on above: Medication Problem Start: 08-04-2022 End: 08-04-2022 Patient encounter procedure Lul Mcbride MD Work Phone: Otolaryngology Comment on above: 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 (Primary Dx) Start: 08-02-2022 Telephone encounter Sreekanth bright MD Work Phone: Neurology Comment on above: Patient Request Start: 07-26-2022 Telephone encounter Sreekanth bright MD Work Phone: Neurology Comment on above: Patient Question Start: 06-24-2022 End: 06-24-2022 ambulatory Zully Mendoza Other [facility] Other Start: 06-24-2022 Office outpatient vi sit 15 minutes Zully Mendoza [facility] [place] Start: 05-15-2022 Refill Mary Ann Levin MD Work Phone: Dermatology Comment on above: Refill Request Start: 05-12-2022 End: 05-12-2022 Patient encounter procedure Mary Ann Levin MD Work Phone: Dermatology Comment on above: APPOINTMENT CANCELLE D (Primary Dx) Start: 04-04-2022 End: 04-04-2022 ambulatory Sreekanth Sood MD Work Phone: Neurology Comment on above: Cerebellar tonsillar ectopia (HCC) (Primary Dx); Exertional headache; 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 Start: 04-04-2022 End: 04-04-2022 Telemedicine consultation with patient Sreekanth Sood MD Work Phone: [facility] Start: 03-16-2022 Refill Mary Ann Levin MD Work Phone: [address] [place] [address] Comment on above: Refill Request Start: 03-16-2022 Refill Mary Ann Levin MD Work Phone: Dermatology Comment on above: Refill Request Start: 12-30-2021 ambulatory Mary Ann Levin MD Work Phone: Dermatology Comment on above: Ance Start: 12-30-2021 End: 12-30-2021 Patient encounter procedure Sreekanth Sood MD Work Phone: Neurology Comment on above: Cerebellar tonsillar ectopia (HCC) (Primary Dx); Exertional headache; Lptg-[id number] syndrome manifesting as chronic headache Start: 12-29-2021 ambulatory Francheska Mylai RT(R) Ra diology Comment on above: Radiology MRI Start: 12-29-2021 Patient encounter procedure Francheska Marinelli RT(R) ORTH [place] Start: 12-29-2021 End: 12-29-2021 Subsequent hospital visit by physician [facility] Mercedes (1.5t) Work Phone: Radiology Comment on above: Thunderclap headache [G44.53] Start: 05-22-2019 End: 05-22-2019 Departed Referred [facility] Start: 06-13-2017 End: 06-13-2017 Emergency department patient visit SEREKANTH JOHNSON Facility:[facility] Procedures Date Procedure Procedure Detail Performing Clinician Start: 11-16-2024 Urnls dip stick/tabl et rgnt auto w/o microscopy Akiko Acosta MD Work Phone: Start: 11-16-2024 Ct abdomen & pelvis w/contrast material Akiko Acosta MD Work Phone: Start: 11-16-2024 Radiologic exam ches t single view Akiko Acosta MD Work Phone: Start: 11-16-2024 COVID-19, RAPID Akiko weeks MD Work Phone: Start: 11-16-2024 Iaadiadoo influenza Jimmy Acosta MD Work Phone: Start: 11-16-2024 Ecg routine ecg w/le ast 12 lds w/i&r Akiko Acosta MD Work Phone: Start: 11-16-2024 Comprehensive metabo lic panel Akiko Acosta MD Work Phone: Start: 11-04-2024 Follow-up visit Follow-up OSBALDO N HU VU Start: 10-23-2024 Urine test visual color cmprsn meths Jona Vann MD Work Phone: Start: 07-01-2024 [facility] PREG QUANT HCG Isa Martel MD Work Phone: Start: 06-28-2024 Trichomonas vaginali s detection DO Katie Thapa Work Phone: Start: 06-24-2024 [facility] PREG QUANT HCG Gene fred External Data Provider Start: 12-19-2023 Follow-up visit Follow-up TIESHA ARI Start: 08-17-2023 Dilation and curetta ge of uterus DO Katie Mesamagui Work Phone: Start: 08-03-2023 Hysteroscopy DO Katie Tubbs Alanis Work Phone: Start: 06-19-2023 Adult depression scr eening assessment Tiesha Rai PA-C Work Phone: Start: 11-16-2022 Mri brain brain stem w/o w/contrast material Sreekanth Samples Work Phone: Start: 04-04-2022 Adult depression scr eening assessment Sreekanth Samples Work Phone: Start: 12-29-2021 Mri brain brain stem w/o w/contrast material Sreekanth Samples Work Phone: Start: 12-22-2021 Adult depression scr eening assessment Francheska Marinelli RT(R) Start: 05-22-2019 Aerobic Culture Margarita O tt Start: 05-22-2019 Anaerobic Culture Margarita Apple Start: 05-22-2019 Microscopic observat ion Gram stain Nom (Unsp spec) Margarita Apple Plan of Treatment Date Care Activity Detail Author Start: 09-11-2025 Adult BMI Screening Adult BMI Screen ing [facility] Start: 09-11-2025 Tobacco Screening Tobacco Screening [facility] Start: 08-27-2025 Adult BMI Screening Adult BMI Screen ing [facility] Start: 08-27-2025 Tobacco Screening Tobacco Screening [facility] Start: 08-20-2025 Adult BMI Screening Adult BMI Screen ing [facility] Start: 08-20-2025 Tobacco Screening Tobacco Screening [facility] Start: 08-14-2025 End: 08-14-2025 Patient encounter procedure 08/14/2025 3:00 PM EST Office Visit [facility] [address] [place] [phone] Jona Vann MD [address] [place] [address] [facility] Start: 07-15-2025 Adult BMI Screening Adult BMI Screen ing [facility] Start: 07-15-2025 Tobacco Screening Tobacco Screening [facility] Start: 07-03-2025 Adult BMI Screening Adult BMI Screen ing [facility] Start: 07-03-2025 Tobacco Screening Tobacco Screening [facility] Start: 06-25-2025 DTaP,Tdap and Td Vaccines (7 - Td or Tdap) DTaP,Tdap and Td Vaccines (7 - Td or Tdap) [facility] Start: 06-25-2025 DTaP/Tdap/Td vaccine (7 - Td or Tdap) DTaP/Tdap/Td vaccine (7 - Td or Tdap) [facility] Start: 06-25-2025 Urine microalbumin profile DTaP,Tdap,Td Vaccine (7 - Td or Tdap) [facility] Start: 05-21-2025 Adult BMI Screening Adult BMI Screen ing [facility] Start: 05-21-2025 Tobacco Screening Tobacco Screening [facility] Start: 03-18-2025 Adult BMI Screening Adult BMI Screen ing [facility] Start: 03-18-2025 Tobacco Screening Tobacco Screening [facility] Start: 03-06-2025 Adult BMI Screening Adult BMI Screen ing [facility] Start: 03-06-2025 Tobacco Screening Tobacco Screening [facility] Start: 12-18-2024 Adult BMI Screening Adult BMI Screen ing [facility] Start: 12-18-2024 Tobacco Screening Tobacco Screening [facility] Start: 11-04-2024 End: 11-04-2024 Patient encounter procedure 11/04/2024 1:45 PM EST Office Visit [facility] [address] [facility] [place] [phone] Dick [facility], DO [address] [facility] [facility] [place] [address] [facility] Start: 10-15-2024 End: 10-15-2024 Patient encounter procedure 10/15/2024 10:00 AM EST Office Visit [facility] [address] [place] [phone] Anil Thapa, DO [address] [place] [address] [facility] [address] Start: 10-10-2024 End: 10-10-2024 Patient encounter procedure 10/10/2024 1:45 PM EST Office Visit Dermatology [address] [place] [address] Mary Ann Levin MD [address] [place], [place] [id number] [facility] Comment on above: [facility] Start: 09-11-2024 End: 09-11-2024 Patient encounter procedure 09/11/2024 10:30 AM EST Office Visit [facility] [address] [facility] [facility] [place] [phone] Dick [facility], DO [address] [facility] [place] [address] [facility] ENT Start: 09-10-2024 End: 09-10-2024 Clinical Support [facility] Start: 09-09-2024 End: 09-09-2024 Patient encounter procedure 09/09/2024 9:45 AM EST Office Visit [facility] [address] [facility] [place] [address] [facility] [address] [facility] [place] [address] [facility] Start: 08-27-2024 End: 08-27-2024 Admission to same day surgery center 08/27/2024 12:45 PM EST - 08/27/2024 1:45 PM EST Surgery [facility] Surgery [address] [place] [address] Osbaldo [facility], DO [address] [facility] [facility] [address] [place] [address] DIRECT LARYNGOSCOPY WITH BIOPSY BASE OF TONGUE LESION [48875 (CPT )] [facility] Comment on above: DIRECT LARYNGOSCOPY WITH BIOPSY BASE OF TONGUE LESION [87109 (CPT )] Start: 08-27-2024 End: 08-27-2024 Laryngoscopy direct operative w/biopsy DIRECT LARYNGOSCOPY Lesion of tongue 08/27/2024 12:45 PM EST [facility] Start: 08-27-2024 Subsequent hospital visit by physician 08/27/2024 12:45 PM EST Hospital Encounter [facility] Surgery [address] [place] [address] [facility] [address] [facility] [place] [address] [facility] Start: 08-27-2024 End: 08-27-2024 Laryngoscopy direct operative w/biopsy DIRECT LARYNGOSCOPY Lesion of tongue 08/27/2024 10:13 AM EST [facility] Start: 08-13-2024 End: 08-13-2024 Patient encounter procedure 08/13/2024 1:45 PM EST Office Visit [facility] OB [address] [place] [phone] Jona Vann MD [address] [place] [address] [facility] Start: 08-08-2024 End: 08-08-2024 Patient encounter procedure 08/08/2024 10:00 AM EDT Office Visit [facility] [address] [place] [phone] Renita Ellis APRN-NEWSSTAND VENDOR [address] [place] [address] [facility] Start: 08-07-2024 End: 08-07-2024 Patient encounter procedure 08/07/2024 10:00 AM EDT Office Visit [facility] [address] [facility] [address] [place] [address] [facility] [address] [facility] [address] [place] [address] [facility] Start: 07-24-2024 End: 07-24-2024 Patient encounter procedure 07/24/2024 10:00 AM EDT Office Visit [facility] [address] [place] [phone] Renita Ellis APRN-NEWSSTAND VENDOR [address] [place] [address] [facility] Start: 07-15-2024 End: 07-15-2024 Patient encounter procedure 07/15/2024 3:30 PM EDT Office Visit [facility] [address] [facility] [place] [phone] Mich Verde MD [address] [place] [address] [address] [place] [address] [facility] Start: 07-03-2024 End: 07-03-2025 CT Neck W contrast IV CT neck soft tissue with contrast Imaging Routine Chronic throat pain Odynophagia Expected: 07/03/2024, Expires: 07/03/[address] [facility] Work Phone: Comment on above: Expected: 07/03/2024 , Expires: 07/03/2025 Start: 06-28-2024 Computed tomography of abdomen and pelvis with contrast CT abdomen pelvis w con [facility] Start: 06-28-2024 CT Abdomen and Pelvi s W contrast IV [facility] Start: 06-28-2024 [facility] Start: 06-27-2024 Bacteria identified in Urine by Culture [facility] Start: 06-19-2024 Depression Screening Depression Scre ening [facility] Start: 06-09-2024 COVID-19 Vaccine ( season) COVID-19 Vaccine ( season) [facility] Start: 06-09-2024 Covid-19 Vaccine ( season) Covid-19 Vaccine ( season) [facility] Start: 06-09-2024 Influenza vaccination C [facility] Start: 06-04-2024 End: 06-04-2024 Admission to same day surgery center 06/04/2024 9:00 AM EDT - 06/04/2024 9:30 AM EDT Surgery [facility] [address] [place] [phone] Mich Verde MD [address] [place] [address] [address] [place] [address] REMOVAL TUBE EAR [33584 (CPT )] [facility] Comment on above: REMOVAL TUBE EAR [69 424 (CPT )] Start: 06-04-2024 Subsequent hospital visit by physician 06/04/2024 9:00 AM EDT Hospital Encounter [facility] [address] [place] [phone] Mich Verde MD [address] [facility] [address] [place] [address] [facility] Start: 06-04-2024 End: 06-04-2024 Tympanic memb rpr w/wo prepj perfor patch APPLICATION GRAFT PAPER PATCH EAR Dysfunction of both eustachian tubes Hearing loss of right ear, unspecified hearing loss type Otomycosis Acute right otitis media Cerumen debris on tympanic membrane of both ears Chronic mucoid otitis media of both ears 06/04/2024 9:00 AM [facility] Start: 06-04-2024 End: 06-04-2024 Ventilating tube rmvl requiring general anes REMOVAL TUBE EAR Dysfunction of both eustachian tubes Hearing loss of right ear, unspecified hearing loss type Otomycosis Acute right otitis media Cerumen debris on tympanic membrane of both ears Chronic mucoid otitis media of both ears 06/04/2024 9:00 AM [facility] Start: 04-08-2024 End: 04-08-2024 Patient encounter procedure 04/08/2024 4:15 PM EDT Office Visit [facility] [address] [place] [id number] Tiesha Rai, PATanishaC [address] [facility] [address] [place] [address] [facility] Start: 03-18-2024 End: 03-18-2024 Patient encounter procedure 03/18/2024 2:30 PM EDT Office Visit [facility] [address] [place] [address] Mich Verde MD [address] [place] [address] [address] [place] [address] [facility] Start: 02-13-2024 End: 02-13-2024 Patient encounter procedure 02/13/2024 2:00 PM EDT Office Visit [facility] [address] [facility] [address] [place] [address] Mich Verde MD [address] [place] [address] [address] [place] [address] [facility] Start: 02-06-2024 End: 02-06-2024 Patient encounter procedure 02/06/2024 1:15 PM EDT Office Visit [facility] [address] [facility] [address] [place] [phone] Tiesha Rai, PATanishaC [address] [address] [facility] Start: 11-21-2023 End: 02-20-2024 Hepatic function 2000 panel - Serum or Plasma HEPATIC FUNCTION PNL Lab Routine Medication monitoring encounter Expected: 11/21/2023, Expires: 02/20/2024 [facility] Work Phone: Comment on above: Expected: 11/21/2023 , Expires: 02/20/2024 Start: 2023 Screening for malign ant neoplasm of cervix [facility] Start: 10-09-2023 Depression Assessment Depression Ass essment [facility] Start: 08-17-2023 [facility] Start: 08-03-2023 End: 08-03-2023 [facility] Start: 06-09-2023 Covid-19 Vaccine () Covid-19 Vaccine () [facility] Start: 06-09-2023 Influenza vaccination C [facility] Start: 04-04-2023 Adult depression screening assessment DEPRESSION SCREENING [facility] Start: 12-22-2022 Adult depression screening assessment DEPRESSION SCREENING [facility] Start: 10-09-2022 DEPRESSION ASSESSMENT DEPRESSION ASS ESSMENT [facility] Start: 06-09-2022 Influenza vaccination INFLUENZA (#1) [facility] Start: 10-09-2021 DEPRESSION ASSESSMENT DEPRESSION ASS ESSMENT [facility] Start: 2020 Adult BMI Follow Up Plan Adult BMI Follow Up Plan [facility] Start: 2020 CHLAMYDIA SCREENING (18-24) CHLAMYDIA SCREENING (18-24) [facility] Start: 2020 Depression Screening Depression Scre ening [facility] Start: 2020 GC (GONORRHEA) SCREENING (18-24) GC (GONORRHEA) SCREENING (18-24) [facility] Start: 2020 HEPATITIS C SCREENING HEPATITIS C SC REENING [facility] Start: 2020 Hepatitis C screening C [facility] Start: 2020 HIV SCREENING HIV SCREENING [facility] Start: 2020 HIV screening HIV Screening [facility] Start: 2020 Screening for Chlamy magaly trachomatis Chlamydia Screening (18-24) [facility] Start: 2018 Meningococcal B Vaccine: Consider Based On Risk (1 of 2 - Patient Seeks Protection) Meningococcal B Vaccine: Consider Based On Risk (1 of 2 - Patient Seeks Protection) [facility] Start: 2018 MENINGOCOCCAL B: Consider based on risk (1 of 2 - Patient Seeks Protection) MENINGOCOCCAL B: Consider based on risk (1 of 2 - Patient Seeks Protection) [facility] Start: 2018 Screening for Chlamy magaly trachomatis Chlamydia/GC screen [facility] Start: 2017 HIV screening HIV screen [facility] [employer] Start: 06-17-2017 HPV VACCINE (2 - 2-d ose series) HPV VACCINE (2 - 2-dose series) [facility] Start: 2016 PEDS TO ADULT TRANSITION ANNUAL ASSESSMENT PEDS TO ADULT TRANSITION ANNUAL ASSESSMENT [facility] Start: 2014 Depression Screen Depression Screen [facility] Start: 2014 PEDS TO ADULT TRANSITION INITIAL DISCUSSION PEDS TO ADULT TRANSITION INITIAL DISCUSSION [facility] Start: 2013 Urine microalbumin profile [facility] Start: 2012 MENINGOCOCCAL B: Consider based on risk (1 of 2 - Risk Bexsero 2-dose series) MENINGOCOCCAL B: Consider based on risk (1 of 2 - Risk Bexsero 2-dose series) [facility] Start: 02-27-2008 Varicella vaccine (2 of 2 - 2-dose childhood series) Varicella vaccine (2 of 2 - 2-dose childhood series) [facility] Start: 2007 COVID-19 VACCINE (#1) COVID-19 VACCI NE (#1) [facility] Start: 2007 COVID-19 VACCINE (1) COVID-19 VACCIN E (1) [facility] Start: 04-17-2003 COVID-19 VACCINE (#1) COVID-19 VACCI NE (#1) [facility] Bacteria identified in Urine by Culture Urine culture Microbiology Routine Vaginal burning Ordered: 10/23/2024 [facility] Comment on above: Ordered: 10/23/2024 End: 07-15-2025 Comprehensive hearing test Comprehensive hearing test Audiology Routine Postop check 1 Occurrences starting 07/15/2024 until 07/15/2025 [facility] Work Phone: Comment on above: 1 Occurrences starti ng 07/15/2024 until 07/15/2025 EKG 12 Lead (Chest Pain) EKG 12 Lead (Chest Pain) ECG STAT 11/16/2024 1:16 AM EST [facility] GENITAL MYCOPLASMAS JANET, SWAB GENITAL MYCOPLASMAS JANET, SWAB Pathology and Cytology Routine Vaginal burning Vaginal itching Vaginal discharge Vaginal odor Ordered: 10/23/2024 [facility] Work Phone: Comment on above: Ordered: 10/23/2024 Lipoprotein a [Moles/volume] in Serum or Plasma [facility] miscellaneous test [place] mis cellaneous test Lab Routine Screening for malignant neoplasm of cervix Vaginal discharge Ordered: 08/13/2024 [facility] Comment on above: Ordered: 08/13/2024 NuSwab Vaginitis Plu s (VG+) NuSwab Vaginitis Plus (VG+) Microbiology Routine Screening for malignant neoplasm of cervix Vaginal discharge Ordered: 08/13/2024 [facility] Comment on above: Ordered: 08/13/2024 NuSwab Vaginitis Plu s (VG+) NuSwab Vaginitis Plus (VG+) Microbiology Routine Vaginal burning Vaginal itching Vaginal discharge Vaginal odor Ordered: 10/23/2024 [facility] Comment on above: Ordered: 10/23/2024 Patient Education [facility] Work Phone: Patient referral [facility] Work Phone: SENDOUT TEST MISCELLANEOUS [facility] SENDOUT TEST MISCELLANEOUS [facility] Lab Routine Screening for malignant neoplasm of cervix Encounter for gynecological examination without abnormal finding Ordered: 08/13/2024 [facility] Work Phone: Comment on above: Ordered: 08/13/2024 [facility] Immunizations Immunization Date Immunization Notes Care Provider Massimo whipple 06-13-2024 influenza, injectabl e, madin maria del carmen canine kidney, preservative free Anil Thapa Work Phone: [facility] 06-23-2023 Influenza, injectabl e, Madin [place] Canine Kidney, preservative free, quadrivalent Gm Gomez LPN Work Phone: [facility] 06-23-2023 influenza virus vaccine, unspecified formulation [facility] 03-09-2023 SARS-COV-2 (COVID-19 ) vaccine, mRNA, spike protein, LNP, bivalent, preservative free, 30 mcg/0.3 mL dose, merly-sucrose formulation Gm Gomez LPN Work Phone: [facility] 08-03-2022 Influenza, injectabl e, Madin Maria Del Carmen Canine Kidney, preservative free, quadrivalent Gm Jason S[employer]IOR LEAD PROJECT MANAGER Work Phone: [facility] 08-03-2022 influenza virus vaccine, unspecified formulation Mary Ann Levin MD Work Phone: [facility] 06-04-2021 influenza, injectabl e, quadrivalent, preservative free Gm Jason SENIOR LEAD PROJECT MANAGER Work Phone: [facility] 07-02-2020 Influenza, injectabl e, Madin Maria Del Carmen Canine Kidney, quadrivalent with preservative Gm Jason SENIOR LEAD PROJECT MANAGER Work Phone: [facility] 07-10-2019 Influenza, injectabl e, Madin [place] Canine Kidney, preservative free, quadrivalent Gm Jason SENIOR LEAD PROJECT MANAGER Work Phone: [facility] 07-06-2018 influenza, injectabl e, quadrivalent, preservative free Gm Jason SENIOR LEAD PROJECT MANAGER Work Phone: [facility] 07-13-2017 hepatitis A vaccine, pediatric/adolescent dosage, 2 dose schedule [facility] 07-13-2017 Human Papillomavirus 9-valent vaccine [facility] 07-13-2017 influenza, injectabl e, quadrivalent, preservative free [facility] 12-15-2016 hepatitis A vaccine, adult dosage [facility] 12-15-2016 hepatitis A vaccine, pediatric/adolescent dosage, 2 dose schedule Francheska Marinelli RT(R) [facility] Work Phone: 12-15-2016 human papilloma viru s vaccine, quadrivalent Tiesha Rai PA-C Work Phone: [facility] 12-15-2016 Human Papillomavirus 9-valent vaccine Francheska Marinelli RT(R) [facility] Work Phone: 07-31-2015 meningococcal oligosaccharide (groups A, C, Y and W-135) diphtheria toxoid conjugate vaccine (MCV4O) [facility] 07-31-2015 meningococcal polysaccharide (groups A, C, Y and W-135) diphtheria toxoid conjugate vaccine (MCV4P) Francheska Barkerponi RT(R) [facility] 07-08-2015 influenza virus vaccine, unspecified formulation Tiesha Rai PA-C Work Phone: [facility] 07-08-2015 influenza, injectabl e, quadrivalent, preservative free Francheska Lapponi RT(R) [facility] 07-08-2015 influenza, seasonal, injectable [facility] [employer]IOR LEAD PRO[employer] MANAGER Work Phone: [facility] 06-25-2015 tetanus toxoid, redu lita diphtheria toxoid, and acellular pertussis vaccine, adsorbed Jessica Best [facility] 07-30-2013 influenza virus vaccine, unspecified formulation Francheska Lapponi RT(R) [facility] 07-30-2013 influenza, injectabl e, quadrivalent, preservative free [facility] S[employer]IOR LEAD PROJECT MANAGER Work Phone: [facility] 07-28-2011 influenza virus vaccine, unspecified formulation Francheska Lapponi RT(R) [facility] 07-28-2011 influenza, seasonal, injectable [facility] SENIOR LEAD PROJECT MANAGER Work Phone: [facility] 08-24-2010 influenza virus vaccine, unspecified formulation Francheska Lapponi RT(R) [facility] 08-24-2010 influenza, seasonal, injectable, preservative free [facility] SENIOR LEAD PROJECT MANAGER Work Phone: [facility] 07-22-2009 influenza virus vaccine, live, attenuated, for intranasal use [facility] Work Phone: [facility] 07-22-2009 influenza virus vaccine, unspecified formulation Francheska Lapponi RT(R) [facility] 01-30-2008 diphtheria, tetanus toxoids and acellular pertussis vaccine Francheska Lapponi RT(R) [facility] 01-30-2008 measles, mumps and rubella virus vaccine Francheska Lapponi RT(R) [facility] 01-30-2008 poliovirus vaccine, inactivated Francheska Lapponi RT(R) [facility] 11-08-2004 diphtheria, tetanus toxoids and acellular pertussis vaccine Francheska Lapponi RT(R) [facility] 11-08-2004 varicella virus vaccine Francheska Lappo ni RT(R) [facility] 08-31-2004 influenza virus vaccine, unspecified formulation Tiesha Rai PA-C Work Phone: [facility] 08-31-2004 influenza, seasonal, injectable Gm Gomez LPN Work Phone: [facility] 08-31-2004 influenza, seasonal, injectable, preservative free Francheska Lapponi RT(R) [facility] 04-21-2004 haemophilus influenz ae type b vaccine, conjugate unspecified formulation [facility] 04-21-2004 haemophilus influenz ae type b vaccine, HbOC conjugate Francheska Lapponi RT(R) [facility] 04-21-2004 measles, mumps and rubella virus vaccine Francheska Lapponi RT(R) [facility] 04-21-2004 pneumococcal conjuga te vaccine, 7 valent [facility] 04-21-2004 pneumococcal Conjuga te, unspecified formulation Francheska Lapponi RT(R) [facility] 10-15-2003 influenza virus vaccine, unspecified formulation Tiesha Rai PA-C Work Phone: [facility] 10-15-2003 influenza, seasonal, injectable Francheska Lapponi RT(R) [facility] 09-12-2003 influenza virus vaccine, unspecified formulation Tiesha Rai PA-C Work Phone: [facility] 09-12-2003 influenza, seasonal, injectable Francheska Lapponi RT(R) [facility] 09-09-2003 pneumococcal conjuga te vaccine, 7 valent [facility] 09-09-2003 pneumococcal Conjuga te, unspecified formulation Francheska Lapponi RT(R) [facility] 09-09-2003 poliovirus vaccine, inactivated Francheska Lapponi RT(R) [facility] 04-21-2003 diphtheria, tetanus toxoids and acellular pertussis vaccine Francheska Lapponi RT(R) [facility] 04-21-2003 haemophilus influenz ae type b vaccine, conjugate unspecified formulation [facility] 04-21-2003 haemophilus influenz ae type b vaccine, HbOC conjugate Francheska Lapponi RT(R) [facility] 04-21-2003 hepatitis B vaccine, pediatric or pediatric/adolescent dosage Francheska Lapponi RT(R) [facility] 04-21-2003 pneumococcal conjuga te vaccine, 7 valent [facility] 04-21-2003 pneumococcal Conjuga te, unspecified formulation Francheska Lapponi RT(R) [facility] 02-17-2003 diphtheria, tetanus toxoids and acellular pertussis vaccine Francheska Lapponi RT(R) [facility] 02-17-2003 haemophilus influenz ae type b vaccine, conjugate unspecified formulation [facility] 02-17-2003 haemophilus influenz ae type b vaccine, HbOC conjugate Francheska Lapponi RT(R) [facility] 02-17-2003 poliovirus vaccine, inactivated Francheska Lapponi RT(R) [facility] 2002 diphtheria, tetanus toxoids and acellular pertussis vaccine Francheska Lapponi RT(R) [facility] 2002 haemophilus influenz ae type b vaccine, conjugate unspecified formulation [facility] 2002 haemophilus influenz ae type b vaccine, HbOC conjugate Francheska Lapponi RT(R) [facility] 2002 hepatitis B vaccine, pediatric or pediatric/adolescent dosage Francheska Lapponi RT(R) [facility] 2002 pneumococcal conjuga te vaccine, 7 valent [facility] 2002 pneumococcal Conjuga te, unspecified formulation Francheska Lapponi RT(R) [facility] 2002 poliovirus vaccine, inactivated Francheska Lapponi RT(R) [facility] 2002 hepatitis B vaccine, pediatric or pediatric/adolescent dosage Francheska Lapponi RT(R) [facility] Payers Date Payer Category Payer Self-pay 2022 Medicaid [id number] 2021 Medicaid [employer] MED[employer] [id number] 2021-Present [phone] [place] [id number] Medicaid [id number] 2021 Medicaid [id number] [id number] 2002 Unknown [id number] 2.16.840.1.527626.3.579.2.983 2002 Unknown [id number] 2.16.840.1.925672.3.579.2.983 2002 Unknown [id number] 2.16.840.1.995981.3.579.2.983 2002 Unknown [id number] 2.16.840.1.540808.3.579.2.593 2002 Unknown [id number] 2.16.840.1.841391.3.579.2.593 2002 Unknown [id number] 2.16.840.1.123249.3.579.2.593 2002 Unknown [id number] 2.16.840.1.681209.3.579.2.593 2002 Unknown [id number] 2.16.840.1.822528.3.579.2.593 2002 Unknown [id number] 2.16.840.1.927190.3.579.2.1286 2002 Unknown [id number] 2.16.840.1.388753.3.579.2.1286 2002 Unknown [id number] 2.16.840.1.802148.3.579.2.1286 2002 Unknown [id number] 2.16.840.1.508727.3.579.2.6 2002 Unknown [id number] 2.16.840.1.882406.3.579.2.1286 2002 Unknown [id number] 2.16.840.1.644992.3.579.2.1286 2002 Unknown [id number] 2.16.840.1.134594.3.579.2.1285 2002 Unknown [id number] 2.16.840.1.714878.3.579.2.1285 2002 Unknown [id number] 2.16.840.1.385365.3.579.2.1258 2002 Unknown [id number] 2.16.840.1.322114.3.579.2.1258 2002 Unknown [id number] 2.16.840.1.364376.3.579.2.1258 2002 Unknown [id number] 2.16.840.1.200299.3.579.2.1258 2002 Unknown [id number] 2.16.840.1.668209.3.579.2.1258 2002 Unknown [id number] 2.16.840.1.579341.3.579.2.1258 2002 Unknown [id number] 2.16.840.1.932742.3.579.2.1258 2002 Unknown [id number] 2.16.840.1.320284.3.579.2.1258 2002 Unknown [id number] 2.16.840.1.990553.3.579.2.1258 2002 Unknown [id number] 2.16.840.1.616338.3.579.2.1285 2002 Unknown [id number] 2.16.840.1.515098.3.579.2.1285 2002 Unknown [id number] 2.16.840.1.858165.3.579.2.1285 2002 Unknown [id number] 2.16.840.1.046110.3.579.2.1285 2002 Unknown [id number] 2.16.840.1.239336.3.579.2.1285 2002 Unknown [id number] 2.16.840.1.617667.3.579.2.1286 2002 Unknown [id number] 2.16.840.1.141909.3.579.2.1286 2002 Unknown [id number] 2.16.840.1.249151.3.579.2.1286 2002 Unknown [id number] 2.16.840.1.620946.3.579.2.1286 2002 Unknown [id number] 2.16.840.1.986688.3.579.2.1286 2002 Unknown [id number] 2.16.840.1.320615.3.579.2.1286 2002 Unknown [id number] 2.16.840.1.415966.3.579.2.174 2002 Unknown [id number] 2.16840.1.680538.3.579.2.174 1959 Medicaid [id number] Unknown [id number] Unknown [id number] 2.16.840.1.244749.3.579.2.531 Unknown [id number] 2.16.840.1.220962.3.579.2.531 Unknown [id number] 2.16840.1.201941.3.579.2.531 Unknown [id number] 2.16840.1.438384.3.579.2.531 Unknown [id number] 2.16840.1.949902.3.579.2.531 Social History Date Type Detail Facility Start: 12-30-2021 End: 07-28-2022 Tobacco smoking status NHIS Never smoked tobacco [facility] Start: 12-22-2021 End: 08-07-2024 Alcohol intake Current non-drinker of alcohol (finding) [facility] Start: 2002 Sex Assigned At Not on file C [facility] Start: 12-19-2021 End: 09-12-2022 Exposure to SARS-CoV-2 (event) Not sure [facility] Start: 12-30-2021 End: 07-28-2022 Tobacco use and exposure Smokeless tobacco non-user [facility] Start: 11-19-2020 End: 10-13-2022 Sex Assigned At [facility] Start: 08-04-2022 Tobacco Comment no one in [place] smokes [facility] Start: 11-19-2020 End: 10-13-2022 History of Social function [facility] Adult Depression Screening Assessment 3 [facility] Start: 2000 Sex Assigned At Female F [facility] Start: 07-17-2024 End: 10-23-2024 Alcoholic beverage intake Ex-drinker (finding) [facility] How often to you hav e a drink containing alcohol? Never [facility] Start: 07-10-2023 Alcohol Comment caffeine: none [facility] Start: 12-13-2021 Gender identity Identifies as female gender (finding) [facility] Start: 09-10-2024 End: 09-11-2024 Alcoholic beverage intake Current drinker of alcohol (finding) [facility] Start: 08-20-2024 Alcohol Comment q 1x per month [facility] Start: 03-03-2017 Sex Female (finding) [facility] NEGATED: Highlighted row [facility] Medical Equipment Procedure Code Equipment Code Equipment Origin al Text Equipment Identifier Dates Tube Vent 4.8mm 1.32mm Rchrd - [id number] Start: 11-14-2011 Tube Malena Juan in Vent 520-181 - [id number] Start: 02-17-2010 Tube Ear Jacquelyn Bx/5 Bill - [id number] Start: 11-02-2017 Goals Date Patient Goal Desired Activity /State Personal health goal Comment on above: Formatting of this n ote might be different from the original. Evaluation of progress towards goal: Safe dc transition from hospital to home. Clinical Notes 11-17-2015 to 11-22-2024 Telephone Encounter - Lily Lutz - 11/22/2024 1:37 PM ESTTelephone Encounter - Lily Lutz - 11/22/2024 1:37 PM Wallace Vann MD - 10/28/2024 10:57 AM ESTPatient Instructions Note Date & Type Note Facility 11-22-2024 Telephone encounter Note Refill of concerta 18 mg to [facility] 11-22-2024 Miscellaneous Notes Refill of concerta 18 mg to [facility] documented in this encounter [facility] 10-28-2024 History of Present illness Narrative UP documented in this encounter [facility] 10-23-2024 History of Present illness Narrative Images from the original note were not included. Jona Vann MD Obstetrics and Gynecology Patient: Charis Allen : 2000 (24 y.o.) Exam Date: 10/23/2024 Reason for Visit - Chief Complaint Patient presents with sick visit Patient has complaints of vaginal burning, irritation, discharge, and odor. Was positive for Trich on 08/13/24. Pt presents with irritation in the genital area, which started on the of this month. She reports experiencing burning during urination and discomfort when wiping. Charis is unsure if the irritation is due to spondylolysis or a possible latex allergy from condom use. She denies any recent changes in sexual partners or post-intercourse symptoms. Charis's last menstrual period was on the 01 of October. She has concerns about a possible due to unprotected intercourse and requests a blood test. She has not experienced any spotting or other -related symptoms. The patient has been using an unspecified vaginal powder for irritation relief but is unsure if it is causing further irritation. She has not been using wipes or other potentially irritating products. Visit Vitals OB Status Having periods Smoking Status Never History of Present Illness, Associated Treatments and Results - OB History Para Term AB Living 1 0 0 0 0 0 SAB IAB Ectopic Multiple Live Births 0 0 0 0 0 # Outcome Date GA Lbr Dwight/2nd Weight Sex Type Anes PTL Lv 1 Constitutional: Negative. HENT: Negative. Eyes: Negative. Respiratory: Negative. Cardiovascular: Negative. Gastrointestinal: Negative. Endocrine: Negative. Genitourinary: Negative. Musculoskeletal: Negative. Skin: Negative. Allergic/Immunologic: Negative. Neurological: Negative. Hematological: Negative. Psychiatric/Behavioral: Negative. Allergies Allergen Reactions Cyproheptadine Diarrhea Other Reaction(s): Other: See Comments Other reaction(s): Other: See Comments Passing out, turning white. Passing out, turning white. Azithromycin Other Reaction(s): Unknown Reaction Levonorgestrel-Ethinyl Estrad Other Reaction(s): Other (See Comments) Patient not sure Penicillins Other Reaction(s): Unknown Reaction, rash Doxycycline Dizziness Other Reaction(s): Dizzy/Vertigo, Other: See Comments Other reaction(s): Other: See Comments Other reaction(s): dizziness dizziness dizziness Other Reaction(s): Unknown Reaction, rash Oxycodone Palpitations Penicillin G Sodium Rash Other reaction(s): rash Current Outpatient Medications: clindamycin (Cleocin T) 1 % external solution, APPLY TO AFFECTED AREAS ON FACE ONCE A DAY, Disp: , Rfl: methylphenidate ER (Concerta) 18 MG CR tablet, Take 1 tablet (18 mg) by mouth in the morning. Do not crush, chew, or split.., Disp: 30 tablet, Rfl: 0 Past Medical History: Diagnosis Date Blood type A+ Chiari syndrome (CMS/HCC) 12/27/2022 History of chicken pox Migraines ([facility]/HCC) Seasonal allergies Past Surgical History: Procedure Laterality Date APPENDECTOMY 2012 DILATION AND CURETTAGE OF UTERUS 2022 suction D&C TONSILLECTOMY 2011 & adenoids TYMPANOSTOMY TUBE PLACEMENT Right permanant tube Family History Problem Relation Name Age of Onset No Known Problems Mother No Known Problems Father No Known Problems Maternal Grandmother No Known Problems Maternal Grandfather Breast cancer Paternal Grandmother Lung cancer Paternal Grandmother Thyroid disease Paternal Grandmother Leukemia Paternal Grandfather Social History Tobacco Use Smoking Status Never Smokeless Tobacco Never Physical Exam - General appearance, mentation, extraocular movements, facial strength and movement, hearing, upper and lower extremity strength and tone, sensation to gross testing, coordination, and gait are normal or at baseline unless noted below. Physical Exam Constitutional: Appearance: Normal appearance. Genitourinary: Right Labia: No rash. Left Labia: No rash. No vaginal discharge. No vaginal prolapse present. No vaginal atrophy present. No cervical lesion. HENT: Head: Normocephalic and atraumatic. Neurological: Mental Status: She is alert and oriented to person, place, and time. Psychiatric: Mood and Affect: Mood normal. Behavior: Behavior normal. Vulva unremarkable Assessment/Plan ICD-10-CM 1. Vaginal burning N94.89 2. Vaginal itching N89.8 3. Vaginal discharge N89.8 4. Vaginal odor N89.8 Charis was seen today for sick visit. Diagnoses and all orders for this visit: Acute vaginitis (Primary) - terconazole (Terazol 7) 0.4 % vaginal cream; Insert 1 applicator into the vagina at bedtime for 7 days Vaginal burning - GENITAL MYCOPLASMAS JANET, SWAB - NuSwab Vaginitis Plus (VG+) - triamcinolone (Kenalog) 0.1 % cream; Apply topically 2 (two) times a day - Urine culture Vaginal itching - GENITAL MYCOPLASMAS JANET, SWAB - NuSwab Vaginitis Plus (VG+) Vaginal discharge - GENITAL MYCOPLASMAS JANET, SWAB - NuSwab Vaginitis Plus (VG+) Vaginal odor - GENITAL MYCOPLASMAS JANET, SWAB - NuSwab Vaginitis Plus (VG+) Amenorrhea - POCT , urine manually resulted 1. Vaginal irritation and burning: - Possible causes: Latex allergy, yeast infection, or irritation from wipes - Plan: a) Discontinue use of wipes and any new products that may cause irritation. b) Consider switching to non-latex condoms. c) Prescribe steroid cream for external use. d) Prescribe antifungal medication for possible yeast infection. e) Follow up in 2 weeks to assess improvement. Cultures amd prescriptions ordered 2. Possible urinary tract infection (UTI): - Plan: a) Obtain a urine sample for urinalysis and culture. b) If positive for UTI, prescribe appropriate antibiotics. c) Encourage increased fluid intake. 3. Possible : - Plan: a) Perform blood test. b) If positive, schedule a follow-up appointment for care. c) If negative and no improvement in symptoms, consider further evaluation. 4. Patient education: - Plan: b) Encourage the patient to send a picture of the product causing irritation via the patient portal for further evaluation. c) Schedule a follow-up appointment in 2 weeks to assess the patient's symptoms and response to treatment. documented in this encounter [facility] 10-21-2024 History of Present illness Narrative Images from the original note were not included. SUBJECTIVE: Charis Allen is a 24 y.o. female presents with chief complaint of ADHD Pt presents to the office for medication check up. Feels Concerta is working effectively and lasting long enough. Denies any side effects. Requesting refill. ADHD This is a chronic problem. The current episode started more than 1 year ago. The problem has been rapidly improving. Review of Systems: Review of Systems Problem List: Patient Active Problem List Diagnosis Abnormal thyroid function test Acne vulgaris Anxiety Attention deficit hyperactivity disorder (ADHD), combined type (CMS/HCC) Cerumen debris on tympanic membrane of right ear Chronic otitis media Conductive hearing loss of right ear with unrestricted hearing of left ear Depression (CMS/HCC) Dysfunction of both eustachian tubes Generalized abdominal pain Gross hematuria Hearing loss due to cerumen impaction Hyperinsulinemia Leukopenia Menorrhagia with irregular cycle Nausea and vomiting Obesity (BMI 30.0-34.9) Otomycosis Retained myringotomy tube in left ear Right lower quadrant abdominal pain Tinnitus, right ear Weight gain Past Medical History: Past Medical History: Diagnosis Date Blood type A+ Chiari syndrome (CMS/HCC) 12/27/2022 History of chicken pox Migraines (CMS/HCC) Seasonal allergies Family History: Family History Problem Relation Name Age of Onset No Known Problems Mother No Known Problems Father No Known Problems Maternal Grandmother No Known Problems Maternal Grandfather Breast cancer Paternal Grandmother Lung cancer Paternal Grandmother Thyroid disease Paternal Grandmother Leukemia Paternal Grandfather Allergies: Allergies Allergen Reactions Cyproheptadine Diarrhea Other Reaction(s): Other: See Comments Other reaction(s): Other: See Comments Passing out, turning white. Passing out, turning white. Azithromycin Other Reaction(s): Unknown Reaction Levonorgestrel-Ethinyl Estrad Other Reaction(s): Other (See Comments) Patient not sure Penicillins Other Reaction(s): Unknown Reaction, rash Doxycycline Dizziness Other Reaction(s): Dizzy/Vertigo, Other: See Comments Other reaction(s): Other: See Comments Other reaction(s): dizziness dizziness dizziness Other Reaction(s): Unknown Reaction, rash Oxycodone Palpitations Penicillin G Sodium Rash Other reaction(s): rash Surgical History: Past Surgical History: Procedure Laterality Date APPENDECTOMY 2012 DILATION AND CURETTAGE OF UTERUS 2022 suction D&C TONSILLECTOMY 2011 & adenoids TYMPANOSTOMY TUBE PLACEMENT Right permanant tube Social History: Social Drivers of Health Tobacco Use: Low Risk (10/21/2024) Patient History Smoking Tobacco Use: Never Smokeless Tobacco Use: Never Passive Exposure: Not on file Alcohol Use: Not At Risk (01/17/2024) AUDIT-C Frequency of Alcohol Consumption: Never Average Number of Drinks: Patient does not drink Frequency of Binge Drinking: Never Financial Resource Strain: Patient Declined (11/12/2023) Overall Financial Resource Strain (CARDIA) Difficulty of Paying Living Expenses: Patient declined Food Insecurity: No Food Insecurity (08/20/2024) Received from [facility] Hunger Screening Within the past 12 months we worried whether our food would run out before we got money to buy more.: Never True Within the past 12 months the food we bought just didn't last and we didn't have money to get more.: Never True Transportation Needs: Patient Declined (11/12/2023) PRAPARE - Transportation Lack of Transportation (Medical): Patient declined Lack of Transportation (Non-Medical): Patient declined Physical Activity: Patient Declined (11/12/2023) Exercise Vital Sign Days of Exercise per Week: Patient declined Minutes of Exercise per Session: Patient declined Stress: Not on file Social Connections: Unknown (11/12/2023) Social Connection and Isolation Panel [NHANES] Frequency of Communication with Friends and Family: Patient declined Frequency of Social Gatherings with Friends and Family: Patient declined Attends Tenriism Services: Not on file Active Member of Clubs or Organizations: Patient declined Attends Club or Organization Meetings: Patient declined Marital Status: Patient declined Intimate Partner Violence: Patient Declined (11/12/2023) Humiliation, Afraid, Rape, and Kick questionnaire Fear of Current or Ex-Partner: Patient declined Emotionally Abused: Patient declined Physically Abused: Patient declined Sexually Abused: Patient declined Depression: Not at risk (10/21/2024) PHQ-2 PHQ-2 Score: 0 Housing Stability: Not on file Health Literacy: Not on file OBJECTIVE: Visit Vitals Ht 5' 7 Wt 151 lb BMI 23.65 kg/m OB Status Having periods Smoking Status Never BSA 1.8 m Physical Exam Constitutional: Appearance: Normal appearance. HENT: Head: Normocephalic and atraumatic. Eyes: Extraocular Movements: Extraocular movements intact. Conjunctiva/sclera: Conjunctivae normal. Pupils: Pupils are equal, round, and reactive to light. Cardiovascular: Rate and Rhythm: Normal rate and regular rhythm. Pulmonary: Effort: Pulmonary effort is normal. Breath sounds: Normal breath sounds. Abdominal: General: Bowel sounds are normal. Palpations: Abdomen is soft. Musculoskeletal: General: Normal range of motion. Skin: General: Skin is warm and dry. Neurological: General: No focal deficit present. Mental Status: She is alert and oriented to person, place, and time. Psychiatric: Mood and Affect: Mood normal. Thought Content: Thought content normal. Judgment: Judgment normal. No results found for this or any previous visit (from the past 4 weeks). ASSESSMENT AND PLAN: Assessment/Plan Diagnoses and all orders for this visit: Attention deficit hyperactivity disorder (ADHD), combined type (CMS/HCC) improved significantly, continue current treatment - methylphenidate ER (Concerta) 18 MG CR tablet; Take 1 tablet (18 mg) by mouth in the morning. Do not crush, chew, or split.. Updated Medications: I have reviewed and reconciled the history and medication list with the patient today. Current Outpatient Medications: clindamycin (Cleocin T) 1 % external solution, APPLY TO AFFECTED AREAS ON FACE ONCE A DAY, Disp: , Rfl: methylphenidate ER (Concerta) 18 MG CR tablet, Take 1 tablet (18 mg) by mouth in the morning. Do not crush, chew, or split.., Disp: 30 tablet, Rfl: 0 documented in this encounter [facility] 09-12-2024 Telephone encounter Note Patient phones requesting refills as follows: BERENICE: 08/16/2023 FOV: 10/10/2024 Requested Prescriptions Pending Prescriptions Disp Refills clindamycin (CLEOCIN) 1 % external solution [Pharmacy Med Name: CLINDAMYCIN PH 1% SOLUTION] 60 mL 3 Sig: APPLY TO AFFECTED AREAS ON FACE ONCE A DAY Please review and advise. Otilia Gomez LPN [facility] 09-12-2024 Miscellaneous Notes Patient phones requesting refills as follows: BERENICE: 08/16/2023 FOV: 10/10/2024 Requested Prescriptions Pending Prescriptions Disp Refills clindamycin (CLEOCIN) 1 % external solution [Pharmacy Med Name: CLINDAMYCIN PH 1% SOLUTION] 60 mL 3 Sig: APPLY TO AFFECTED AREAS ON FACE ONCE A DAY Please review and advise. Otilia Gomez LPN documented in this encounter [facility] 09-11-2024 History of Present illness Narrative Images from the original note were not included. [facility] - ENT [address] [place] [id number] SUBJECTIVE: Patient ID ([id number]): Charis Allen is a 23 y.o. female presents today for Chief Complaint Patient presents with Follow-up Base of tongue mass HPI: Charis is seen in follow up today for post op appointment. Patient was last seen on 08/27/2024. Patient is s/p direct laryngoscopy with biopsy of base of tongue lesion on 08/27/2024. Patient previously had post-operative pain and dysphagia, which has since subsided. Patient currently is able to drink liquids, eat solids, and swallow without pain. She has no other post operative complications. Patient no longer has a sore throat. HISTORY: Past Medical History: Diagnosis Date Allergic Cerebellar tonsillar ectopia (CMS-HCC) Concussion Multiple Dysfunction of both eustachian tubes Head injury 2010 With LOC Headache History of chicken pox 2011 Past Surgical History: Procedure Laterality Date ADENOIDECTOMY Bilateral 11/02/2017 Performed by Karthikeyan Lopez MD at [facility] APPENDECTOMY 2016 APPLICATION GRAFT PAPER PATCH EAR Right 06/04/2024 Performed by Mich Verde MD at [facility] CRANIOTOMY CHIARI DECOMPRESSION / N/A 01/27/2023 Performed by Ajay Barbosa MD at [facility] CYSTOSCOPY RETROGRADE PYELOGRAM Bilateral 11/30/2022 Performed by Margot Hernandez MD at [facility] DILATION AND CURETTAGE OF UTERUS 07/31/2023 DIRECT LARYNGOSCOPY WITH BIOPSY BASE OF TONGUE LESION Right 08/27/2024 Performed by Luis Enrique Jennings DO at [facility] TUBE DILATION Bilateral 11/02/2017 Performed by Karthikeyan Lopez MD at [facility] POSTERIOR LAMINECTOMY CERVICAL SINGLE LEVEL / C1 N/A 01/27/2023 Performed by Ajay Barbosa MD at [facility] REMOVAL TUBE EAR Right 06/04/2024 Performed by Mich Verde MD at [facility] TONSILLECTOMY TYMPANOSTOMY TUBE PLACEMENT TYMPANOTOMY WITH PERMANENET VENT TUBE INSERTION. TYMPANOTOMY WITH NONPERMANENT TUBE IN LEFT EAR Bilateral 11/02/2017 Performed by Karthikeyan Lopez MD at [facility] Family History Problem Relation Age of Onset Asthma Mother Back Problems Father Heart disease Maternal Grandmother Heart disease Maternal Grandfather Hypertension Paternal Grandmother Thyroid disease Paternal Grandmother Breast cancer Paternal Grandmother Cancer Paternal Grandfather Anesthesia problems Neg Hx Bleeding Disorder Neg Hx Clotting disorder Neg Hx Ovarian cancer Neg Hx Colon cancer Neg Hx Diabetes Neg Hx Stroke Neg Hx Social History Socioeconomic History Marital status: Single Spouse name: Not on file Number of children: Not on file Years of education: Not on file Highest education level: Not on file Occupational History Not on file Tobacco Use Smoking status: Never Smokeless tobacco: Never Vaping Use Vaping status: Never Used Substance and Sexual Activity Alcohol use: Yes Comment: q 1x per month Drug use: No Sexual activity: Defer Other Topics Concern Not on file Social History Narrative Lives alone. 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 Social Drivers of Health Financial Resource Strain: Patient Declined (11/12/2023) Received from [facility], [facility] Overall Financial Resource Strain (CARDIA) Difficulty of Paying Living Expenses: Patient declined Food Insecurity: No Food Insecurity (08/20/2024) Hunger Screening Food Insecurity - Worry: Never True Food Insecurity - Inability: Never True Transportation Needs: Patient Declined (11/12/2023) Received from [facility] PRAPARE - Transportation Lack of Transportation (Medical): Patient declined Lack of Transportation (Non-Medical): Patient declined Physical Activity: Patient Declined (11/12/2023) Received from [facility] Exercise Vital Sign Days of Exercise per Week: Patient declined Minutes of Exercise per Session: Patient declined Stress: Not on file Social Connections: Unknown (11/12/2023) Received from [facility] Social Connection and Isolation Panel [NHANES] Frequency of Communication with Friends and Family: Patient declined Frequency of Social Gatherings with Friends and Family: Patient declined Attends Tenriism Services: Not on file Active Member of Clubs or Organizations: Patient declined Attends Club or Organization Meetings: Patient declined Marital Status: Patient declined Interpersonal Safety: Patient Declined (11/12/2023) Received from [facility] Humiliation, Afraid, Rape, and Kick questionnaire Fear of Current or Ex-Partner: Patient declined Emotionally Abused: Patient declined Physically Abused: Patient declined Sexually Abused: Patient declined Housing Instability: Not on file Allergies Allergen Reactions Doxycycline Dizziness Penicillin G Sodium Rash Pollen Extracts Other (See Comments) Runny nose and itchy eyes Current Outpatient Medications Medication Sig Dispense Refill clindamycin (CLEOCIN T) 1 % external solution Apply 1 Application topically nightly. methylphenidate HCl (CONCERTA) 18 mg CR tablet Take 1 tablet (18 mg total) by mouth every morning Indications: attention deficit disorder with hyperactivity. methylPREDNISolone (MEDROL, BRADFORD,) 4 mg tablet follow package directions (Patient not taking: Reported on 09/11/2024) 21 tablet 0 No current facility-administered medications for this visit. REVIEW OF SYSTEMS: Review of Systems Constitutional: Negative for chills and fever. HENT: Negative for congestion, postnasal drip, sore throat and trouble swallowing. Eyes: Negative for redness. Respiratory: Negative for cough and shortness of breath. Cardiovascular: Negative for chest pain and palpitations. Gastrointestinal: Negative for nausea and vomiting. Musculoskeletal: Negative for gait problem. Skin: Negative for color change. Allergic/Immunologic: Negative for environmental allergies. Neurological: Negative for dizziness, light-headedness and headaches. Hematological: Does not bruise/bleed easily. Psychiatric/Behavioral: Negative for confusion. Data Reviewed: Surgical Pathology 08/27/2024: PHYSICAL EXAMINATION: Temp 36.4 C (97.6 F) Ht 167.6 cm (5' 5.98 ) Wt 65.7 kg (144 lb 12.8 oz) LMP 08/20/2024 (Approximate) BMI 23.38 kg/m Constitutional: Healthy, alert, cooperative, and in no distress and normal ablility to communicate . Voice normal quality. Head/Face: Normocephalic, without obvious abnormality, salivary glands normal, atraumatic, sinuses nontender, and facial nerve intact Eyes: No gross abnormalities., EOMI, no nystagmus, and no lid ptosis Ear: RIGHT: hearing normal, external ear normal, canal normal, and TM normal without fluid or infection LEFT: hearing normal, external ear normal, canal normal, and TM normal without fluid or infection Nose: External nose appears normal, septum midline, normal mucosa, normal turbinates, and no nasal polyps or masses Oral: normal teeth, normal lips, normal gums, normal hard palate, normal anterior tongue, and oral mucosa moist Oropharynx: normal-appearing mucosa, no pharyngitis, no exudate, normal soft palate and uvula, Nasopharynx: unable to view due to hyperactive gag reflex, Hypopharynx: The hypopharynx was examined by mirror, normal, normal epiglottis, pharyngeal gunn: normal, base of tongue: granulation/exudates from cautery, and pyriform sinuses: normal, Larynx: The larynx was examined with a mirror, false and true vocal cords were normal, vocal cord mobility was normal, and arytenoids normal TMJ: no pain, crepitus, or trismus Neck:normal, supple, no adenopathy, thyroid normal in size, no nodules or tenderness, no neck masses palpable, and carotids normal Respiration: No stridor, Normal respiratory effort. Heart: Regular rate Neurologic: Grossly normal Alert Oriented X 3 Affect normal Cranial nerves 2 -12 grossly intact ASSESSMENT/PLAN: Charis was seen today for follow-up. Diagnoses and all orders for this visit: Lesion of tongue Plan: - Reviewed patient's surgical pathology from direct laryngoscopy with biopsy of base of tongue lesion. This showed benign papillomatous neoplasm. - On exam, biopsy site healing well with granulation/exudates from cautery. - Return to ENT in 4-6 weeks if needed to check biopsy site if no resolution of granulation/exudates noted. Scribe Statement: Scribed for and in the presence of Luis Enrique Jennings DO by Francisco Garcia (scribe). Francisco Garcia 09/11/2024 11:15 AM Provider Statement: I Luis Enrique Jennings DO personally performed the services described in the documentation as described by the above named scribe in my presence. It is both accurate and complete at the time of final signature. Dr. Luis Enrique Jennings 09/11/2024 2:56 PM Counseling: The following elements of medical decision making were considered during this visit: Independently reviewed of images or pathology results, Reviewed and summarized previous records, and Independent interpretation of test performed by another physician or qualified healthcare provider not separately reported (tympanogram, audiogram, imaging). The patient was counseled regarding prognosis, risks and benefits of treatment options, impressions, importance of compliance with treatment and risk factor reductions. The patient verbalized understanding and agreement to the plan. Please note that parts of this chart were generated using voice recognition [employer] dictation software. Although every effort was made to ensure the accuracy of this automated agent ticketing gate, some errors in agent ticketing gate may have occurred. [facility] Instructions Francisco Garcia - 09/11/2024 10:30 AM EST - Reviewed patient's surgical pathology from direct laryngoscopy with biopsy of base of tongue lesion. This showed benign papillomatous neoplasm. - On exam, biopsy site healing well with granulation/exudates from cautery. - Return to ENT in 4-6 weeks if needed to check biopsy site. [facility] History of Present illness Narrative Images from the original note were not included. Patient ID: Charis Allen is a 23 y.o. female. Chief Complaint: Chief Complaint Patient presents with Post-op History: Charis Allen is a pleasant 23 y.o. female who presents today for postoperative visit status post ear tube removal on 06/04/2024. An audiogram was completed prior to today's visit. She has no ENT complaints as of today. She states that her ear appears to be doing better postoperatively. She has established care with Dr. Jennings regarding chronic sore throat and PND on 08/07/2024. Past History: The following portions of the patient's history were reviewed and updated as appropriate: MEDICATIONS Current Outpatient Medications: clindamycin (CLEOCIN T) 1 % external solution, Apply 1 Application topically nightly., Disp: , Rfl: methylphenidate HCl (CONCERTA) 18 mg CR tablet, Take 1 tablet (18 mg total) by mouth every morning Indications: attention deficit disorder with hyperactivity., Disp: , Rfl: methylPREDNISolone (MEDROL, BR[place]FORD,) 4 mg tablet, follow package directions (Patient not taking: Reported on 09/10/2024), Disp: 21 tablet, Rfl: 0 ALLERGIES Doxycycline, Penicillin g sodium, and Pollen extracts PAST MEDICAL HISTORY Past Medical History: Diagnosis Date Allergic Cerebellar tonsillar ectopia (CMS-HCC) Concussion Multiple Dysfunction of both eustachian tubes Head injury 2010 With LOC Headache History of chicken pox 2011 PAST SURGICAL HISTORY Past Surgical History: Procedure Laterality Date ADENOIDECTOMY Bilateral 11/02/2017 Performed by Karthikeyan Lopez MD at [facility] APPENDECTOMY 2016 APPLICATION GRAFT PAPER PATCH EAR Right 06/04/2024 Performed by Mich Verde MD at [facility] CRANIOTOMY CHIARI DECOMPRESSION / N/A 01/27/2023 Performed by Ajay Barbosa MD at [facility] CYSTOSCOPY RETROGRADE PYELOGRAM Bilateral 11/30/2022 Performed by Margot Hernandez MD at [facility] DILATION AND CURETTAGE OF UTERUS 07/31/2023 DIRECT LARYNGOSCOPY WITH BIOPSY BASE OF TONGUE LESION Right 08/27/2024 Performed by Luis Enrique Jennings DO at [facility] TUBE DILATION Bilateral 11/02/2017 Performed by Karthikeyan Lopez MD at [facility] POSTERIOR LAMINECTOMY CERVICAL SINGLE LEVEL / C1 N/A 01/27/2023 Performed by Ajay Barbosa MD at [facility] REMOVAL TUBE EAR Right 06/04/2024 Performed by Mich Verde MD at [facility] TONSILLECTOMY TYMPANOSTOMY TUBE PLACEMENT TYMPANOTOMY WITH PERMANENET VENT TUBE INSERTION. TYMPANOTOMY WITH NONPERMANENT TUBE IN LEFT EAR Bilateral 11/02/2017 Performed by Karthikeyan Lopez MD at [facility] SOCIAL HISTORY Social History Tobacco Use Smoking status: Never Smokeless tobacco: Never Vaping Use Vaping status: Never Used Substance Use Topics Alcohol use: Yes Comment: q 1x per month Drug use: No FAMILY HISTORY Family History Problem Relation Age of Onset Asthma Mother Back Problems Father Heart disease Maternal Grandmother Heart disease Maternal Grandfather Hypertension Paternal Grandmother Thyroid disease Paternal Grandmother Breast cancer Paternal Grandmother Cancer Paternal Grandfather Anesthesia problems Neg Hx Bleeding Disorder Neg Hx Clotting disorder Neg Hx Ovarian cancer Neg Hx Colon cancer Neg Hx Diabetes Neg Hx Stroke Neg Hx REVIEW OF SYSTEMS Review of Systems Constitutional: Negative for fever and chills. Eyes: Negative for visual disturbance. Respiratory: Negative for cough and shortness of breath. Cardiovascular: Negative for chest pain and chest discomfort. Gastrointestinal: Negative for nausea and vomiting. Endocrine: Negative for cold intolerance and heat intolerance. Genitourinary: Negative for difficulty urinating. Musculoskeletal: Negative for neck pain and neck stiffness. Skin: Negative for rash. Allergic/Immunologic: Negative for food allergies. Neurological: Negative for seizures. Hematological: Does not bruise/bleed easily. Psychiatric/Behavioral: Negative for confusion. Data Review: Audiogram 09/10/2024: Physicial Exam: Resp 18 Ht 167.6 cm (5' 6 ) Wt 68.5 kg (151 lb) LMP 08/20/2024 (Approximate) BMI 24.37 kg/m Constitution: Patient appears healthy, alert, oriented, with their usual voice, communication, and affect Head and Face: Normocephalic and Atraumatic. Facial nerve function normal Eyes: No Strabismus and EOM normal Ear: external ear normal and canal normal Nose and Nasal Cavity: The external appearance, nasal mucosa, septum, and turbinates are unremarkable without drainage or lesion Oral Cavity: The lips, gums and teeth are unremarkable without mass or lesion. Neck: No asymmetry or mass, thyroid normal, no lymphadenopathy. Salivary glands normal. Cranial Nerves: Cranial nerves intact Procedure: Microscopic Examination Pre Op Diagnosis: Postoperative check Post Op Diagnosis: Same Procedure: Otologic Microscopic Examination Surgeon: Mich Verde MD Consent: Verbal Consent was obtained prior to the procedure. Anesthesia: None Complications: none Procedure: In a reclined position, using an otologic microscope, the examination was performed. Findings: See the findings recorded under the physical examination. Cerumen Removal Procedure Pre Op Diagnosis: Cerumen Impaction Post Op Diagnosis: Same Procedure: Impacted Cerumen Removal Surgeon: Mich Verde MD Consent: Verbal Consent was obtained prior to the procedure. Anesthesia: None Complications: none Procedure note: The microscope was used along with instruments and suction to remove the impacted cerumen. Assessment Impression: Postoperative check status post tube removal - healed well Cerumen removal bilateral Plan: - Microscopic examination was completed in office today. The ears appear to be healing well postoperatively. Cerumen was removed for the bilateral canals. - Continue watchful monitoring. Visit Diagnosis and Orders: Charis was seen today for post-op. Diagnoses and all orders for this visit: Postop check Scribe Statement: Scribed for and in the presence of MICH VERDE MD by [employer]. Jennifer Martin MA 09/10/24 1605 documented in this encounter [facility] 09-10-2024 Instructions Linette Gurrola - 09/10/2024 4:15 PM EST - Microscopic examination was completed in office today. The ears appear to be healing well postoperatively. Cerumen was removed for the bilateral canals. - Continue watchful monitoring. documented in this encounter [facility] 09-10-2024 History of Present illness Narrative AUDIOLOGIC EVALUATION Reason for visit: CC: Patient is here for a follow up ear check. She had PET removed on 06/04/24. Today she reports, her ear are feeling good. She denies otalgia, aural fullness, tinnitus, otorrhea and dizziness. She feels she is hearing well and equally from both sides. HISTORY: Changes in hearing: No Tinnitus: No Dizziness: No Aural Fullness: No Otalgia: No Otorrhea: No Other significant history: PE tube removal RESULTS: Otoscopic Evaluation: Right Ear: Non-occluding cerumen Left Ear: Non-occluding cerumen Immittance Measures: Right Ear: Type A Left Ear: Type A Pure Tone Audiometry: Right Ear: Hearing sensitivity is within normal limits 250-8000 Hz Left Ear: Hearing sensitivity is within normal limits 250-8000 Hz In comparison to previous audio completed on 07/25/23, improvement of hearing sensitivity was noted on the right. All other thresholds stable. Reliability: good Speech Audiometry: SRT/NUCLEAR SCIENTIST in good agreement WRS: Right Ear: Excellent (100%) Left Ear: Excellent (100%) RECOMMENDATIONS: Follow up with Dr. Mich Verde Retest as needed Patrick Hanley, [facility] Deportation Officer documented in this encounter [facility] 09-04-2024 Miscellaneous Notes Called patient and discussed with her that Dr. Jennings will be sending in a Medrol dose pack to her local pharmacy and that she should continue to rotate Tylenol and Motrin as directed. I also advised that she could resume a normal diet but to avoid spicy, acidic foods, fried foods, caffeine, alcohol, and carbonated beverages at this time. I also expressed that she should observe for any reflux diet changes as this can be helpful to decrease any further irritation and help with healing and avoid eating within 3 hours of bed. Patient may also place 3 inch blocks under the headboard of her bed to see if this provides her with any improvement as well. Patient scheduled to see Dr. Jennings on Monday at 1030 am. documented in this encounter [facility] 09-04-2024 Telephone encounter Note Called patient and discussed with her that Dr. Jennings will be sending in a Medrol dose pack to her local pharmacy and that she should continue to rotate Tylenol and Motrin as directed. I also advised that she could resume a normal diet but to avoid spicy, acidic foods, fried foods, caffeine, alcohol, and carbonated beverages at this time. I also expressed that she should observe for any reflux diet changes as this can be helpful to decrease any further irritation and help with healing and avoid eating within 3 hours of bed. Patient may also place 3 inch blocks under the headboard of her bed to see if this provides her with any improvement as well. Patient scheduled to see Dr. Jennings on Monday at 1030 am. [facility] 09-03-2024 History of Present illness Narrative To help with acute post op swelling. documented in this encounter [facility] 08-29-2024 Miscellaneous Notes Patient called 08/29 because she needs a return to work note. Patient had a biopsy done on 08/27 and will be going back to work on 08/30. Patient said it is ok to send it to her mychart. Is patient okay to go back to work 08/30/24? As long as she is no longer taking norco, she may return to work. Please provide letter. Thank you. Left a message for the patient informing her that as long as she is no longer taking the [place] pain medication she can return to work tomorrow 08/30/24. I will upload this letter to her [employer]. Asked her to give the office a call back if she is still taking her [place] and we can correct the note for a later date. documented in this encounter [facility] 08-29-2024 Telephone encounter Note Patient called 08/29 because she needs a return to work note. Patient had a biopsy done on 08/27 and will be going back to work on 08/30. [facility] 08-29-2024 Telephone encounter Note Is patient okay to go back to work 08/30/24? [facility] 08-29-2024 Telephone encounter Note As long as she is no longer taking norco, she may return to work. Please provide letter. Thank you. [facility] 08-29-2024 Telephone encounter Note Left a message for the patient informing her that as long as she is no longer taking the [place] pain medication she can return to work tomorrow 08/30/24. I will upload this letter to her mychart. Asked her to give the office a call back if she is still taking her [place] and we can correct the note for a later date. [facility] 08-20-2024 Instructions Formatting of th is note might be different from the original. Your surgery/procedure is scheduled at [facility] on 08/27/2024 at 1245p Arrival Time 1045a [facility] Address: [address] [place] [address], [facility], [facility] Park in the Emergency Center Parking lot. Report to the administrative assistant front desk in the Emergency/Surgery Registration lobby of the hospital. Notify your SURGEON if you develop any illness such as a cold, cough, fever, sore throat, vomiting or are hospitalized between now and your surgery. Please call Pre-Admission Clinic at [phone] if you have any questions prior to surgery. For questions the morning of surgery, call the Pre-op Department at [phone]. Medication Instructions (Do not stop your medications without consulting the prescribing physician). Take the following medications the morning of surgery with a sip of water: None Diabetic or Weight loss medications: HOLD: None Take inhalers as prescribed the morning of surgery. Due to the risk associated with these medications. If these medications are not held per instruction below, your surgery is at an increased risk for cancellation SGLT2 Medications- Hold 3 days prior to surgery: Jardiance, Empagliflozin, Farxiga, Dapagliflozin, Invokana, Canagliflozin, Trijardy, Synjardy GLP-1 Medications (Injection or Pill)- If taken daily hold day of surgery. If taken weekly, hold 1 week prior to surgery: Adlyxin, Byetta, Bydureon, Ozempic, Rybelsus,Trulicity, Victoza, Wegovy, Lixisenatide, Exenatide, Semaglutide, Dulaglutide, Liraglutide GIP/GLP-1(Injection or Pill)- If taken daily hold day of surgery. If taken weekly, hold 1 week prior to surgery: Mounjaro . Blood thinners: Please contact your prescribing physician regarding a stop/hold date for these medications. Medications such as Coumadin, Heparin, Aspirin, Plavix, Eliquis, Pradaxa Diabetics: If you take insulin, contact your prescribing doctor for instructions on how to manage this the night before and the morning of surgery. Non-steriodal Anti-Inflammatory Drugs (NSAIDS)- Hold 3 days prior to surgery unless otherwise directed by your surgeon. Vitamins/Herbal Products: You may continue to take your prescribed vitamins such as potassium, iron, vitamin B, vitamin C, or multivitamin unless specifically instructed by your surgeon to hold. STOP taking all herbal products/teas one week prior to your surgery. Marijuana: Stop marijuana 72 hours prior to surgery, stop CBD oil 48 hours prior to surgery. If you have been given bowel prep instructions by your surgeon, please call the surgeon's office with any questions about these instructions. What do I do the day of Surgery? Age 2 through adult - Stop all solids by midnight, You may have clear liquids up to 2 hours before surgery, unless otherwise instructed by your surgeon Clear liquids are: water, sports drinks such as Gatorade or G2, or apple juice. You may NOT have: tube feedings, dairy products, alcoholic beverages, orange juice, or any liquids with solids or pulp in it If applicable, shower again with CHG soap the morning of your surgery. If you received a green plastic bracelet, bring it with you the day of surgery and your nurse will put it on you. What do I need to do to prepare for surgery? If you will be going home the same day as your surgery, arrange for an adult over [address] Riding in a bus or taxi by yourself is not permitted. You should not smoke or drink alcohol 24 hours before your surgery. Smoking increases the risk of breathing problems after surgery. Alcohol thins the blood and may cause bleeding problems during surgery If you have been assigned VINAY Education by your surgeon's office, please complete this education prior to your surgery. For questions regarding VINAY education, reach out to your surgeons office. If you have been given a prescription for occupational, physical or speech therapy, please set up these appointments before your procedure. If you would like to schedule therapy at a [facility] facility, please call [phone] ([phone]). Do not use lotions, creams, powders, perfume, make up, cologne or after-shaves day of surgery. Remove ALL jewelry including wedding rings, body piercings, hair extensions that contain metal, nail irish, make-up, and contact lens. You may brush your teeth the morning of surgery, but do not swallow the water. Wear your dentures and partial plates to the hospital (no adhesive). Shower the night the before. If applicable, use the CHG (chlorhexidine gluconate) soap or wipes. Please be advised, [place] [facility] has transitioned to a cashless payment system. What should I bring to the hospital? If you received a green plastic bracelet, bring it with you the day of surgery and your nurse will put it on you. Eyeglass or contact lens case If you will be spending the night, please bring personal care items and leave them in the car until you are taken to your room after surgery. Leave ALL valuables at home. If any of these instructions conflict with those you recieved from the surgeon, please seek clarification from your surgeon's office. DEEP BREATHING EXERCISES This exercise helps promote good air exchange and helps to prevent pneumonia after surgery. Breathe in slowly and deeply through the nose. Hold your breath for a few seconds and then exhale slowly through the mouth. Repeat this three times and then cough. Coughing helps to clear your lungs. If you have had a surgery with an incision into your abdomen or chest, press gently against your incision with a pillow or a folded blanket when you cough. Please be aware - it may not be berumen to cough following some types of surgeries involving the eyes, ears, sinuses and throat. Always follow your doctor's instructions. LEG EXERCISES These exercises help promote good circulation and help to prevent blood clots after surgery. Point your toes to the ceiling and then point them to the wall. Do this slowly about 15-20 times. You may also move your feet in circles. Do the exercise that is most comfortable for you. If you have had surgery involving your shoulder or arm, we recommend you move your fingers. PRACTICING We ask that you begin practicing these exercises before your surgery. After surgery try to do both exercises at least every 2 hours during the day and early evening. SURGICAL SITE INFECTION AND PREVENTION What is a Surgical Site Infection? Infection can happen to the area of the body where surgery is done. This is called a surgical site infection (SSI). A SSI does not happen very often. Can SSIs be treated? Antibiotics are used to treat SSI. Some patients may need another surgery to treat the infection. The doctor will discuss treatment options with you. What are some of the things that hospitals are doing to prevent SSIs? Soap and water or alcohol hand rub are used before and after caring for each patient.Special soap is used to clean surgery workers hands and arms just before the surgery. Masks, gowns, gloves and hair covers are worn during the surgery to keep the area clean. Hair in the surgery area may be removed with clippers (not razors). A special soap that kills germs is used to clean the skin at the surgery site. Antibiotics may be given before the surgery starts. What can you do to prevent SSIs? Before surgery: You may be asked to shower or bathe with a special soap that kills germs the night before and the day of surgery. Use the soap as you were told. If you smoke, stop or cut down. Ask your doctor about ways to quit. Do not shave near where you will have surgery. Shaving can irritate the skin and make it easier to get and infection. After surgery: Be sure that the doctors and nurses clean their hands before and after touching you. Be sure your family and friends clean their hands before and after visiting you. Do not be afraid to remind them. * Care for your wound at home as told by your doctor or nurse * Call your doctor right away if you have fever, redness, increased pain, or drainage at the surgery site. Further questions? Contact the doctor, nurse or the Infection Prevention and Control department if you have any questions. PATIENT RIGHTS AND RESPONSIBILITIES As a patient at [facility], you have the right to: Receive medical care and be informed of who is taking care of you Be treated with dignity and respect Have a family member/asset protection representative of choice and your physician notified of your admission Receive information and actively participate in decisions about your care and treatment Refuse care, treatment and services Decide who may provide your support and speak for you Access moravian and spiritual services Participate in ethical issues and questions about your care Receive private and confidential care Have appropriate assessment and management of your pain Know guest visitation restrictions or limitations Have an advance directive Access protective services Consent or refuse to participate in research studies or production or recordings, films or other images Have resolution of your complaints Receive information of hospital charges and payment methods Patient/patient asset protection representative responsibilities are to: Provide information about health status to facilitate care, treatment and services Follow the treatment, plan, keep appointments and speak up when you do not understand the plan Respect the rights of other patients and healthcare personnel Follow organizational rules and regulations that support quality care and a safe environment Fulfill financial obligations as promptly as possible [facility] 08-20-2024 Miscellaneous Notes Your surgery/procedure is scheduled at [facility] on 08/27/2024 at 1245p Arrival Time 1045a [facility] Address: [address] [place] [address], [facility], [address] [address] in the Emergency Center Parking lot. Report to the administrative assistant front desk in the Emergency/Surgery Registration lobby of the hospital. Notify your SURGEON if you develop any illness such as a cold, cough, fever, sore throat, vomiting or are hospitalized between now and your surgery. Please call Pre-Admission Clinic at [phone] if you have any questions prior to surgery. For questions the morning of surgery, call the Pre-op Department at [phone]. Medication Instructions (Do not stop your medications without consulting the prescribing physician). Take the following medications the morning of surgery with a sip of water: None Diabetic or Weight loss medications: HOLD: None Take inhalers as prescribed the morning of surgery. Due to the risk associated with these medications. If these medications are not held per instruction below, your surgery is at an increased risk for cancellation SGLT2 Medications- Hold 3 days prior to surgery: Jardiance, Empagliflozin, Farxiga, Dapagliflozin, Invokana, Canagliflozin, Trijardy, Synjardy GLP-1 Medications (Injection or Pill)- If taken daily hold day of surgery. If taken weekly, hold 1 week prior to surgery: Adlyxin, Byetta, Bydureon, Ozempic, Rybelsus,Trulicity, Victoza, Wegovy, Lixisenatide, Exenatide, Semaglutide, Dulaglutide, Liraglutide GIP/GLP-1(Injection or Pill)- If taken daily hold day of surgery. If taken weekly, hold 1 week prior to surgery: Mounjaro . Blood thinners: Please contact your prescribing physician regarding a stop/hold date for these medications. Medications such as Coumadin, Heparin, Aspirin, Plavix, Eliquis, Pradaxa Diabetics: If you take insulin, contact your prescribing doctor for instructions on how to manage this the night before and the morning of surgery. Non-steriodal Anti-Inflammatory Drugs (NSAIDS)- Hold 3 days prior to surgery unless otherwise directed by your surgeon. Vitamins/Herbal Products: You may continue to take your prescribed vitamins such as potassium, iron, vitamin B, vitamin C, or multivitamin unless specifically instructed by your surgeon to hold. STOP taking all herbal products/teas one week prior to your surgery. Marijuana: Stop marijuana 72 hours prior to surgery, stop CBD oil 48 hours prior to surgery. If you have been given bowel prep instructions by your surgeon, please call the surgeon's office with any questions about these instructions. What do I do the day of Surgery? Age 2 through adult - Stop all solids by midnight, You may have clear liquids up to 2 hours before surgery, unless otherwise instructed by your surgeon Clear liquids are: water, sports drinks such as Gatorade or G2, or apple juice. You may NOT have: tube feedings, dairy products, alcoholic beverages, orange juice, or any liquids with solids or pulp in it If applicable, shower again with CHG soap the morning of your surgery. If you received a green plastic bracelet, bring it with you the day of surgery and your nurse will put it on you. What do I need to do to prepare for surgery? If you will be going home the same day as your surgery, arrange for an adult over [address] Riding in a bus or taxi by yourself is not permitted. You should not smoke or drink alcohol 24 hours before your surgery. Smoking increases the risk of breathing problems after surgery. Alcohol thins the blood and may cause bleeding problems during surgery If you have been assigned VINAY Education by your surgeon's office, please complete this education prior to your surgery. For questions regarding VINAY education, reach out to your surgeons office. If you have been given a prescription for occupational, physical or speech therapy, please set up these appointments before your procedure. If you would like to schedule therapy at a [facility] facility, please call [phone] ([phone]). Do not use lotions, creams, powders, perfume, make up, cologne or after-shaves day of surgery. Remove ALL jewelry including wedding rings, body piercings, hair extensions that contain metal, nail irish, make-up, and contact lens. You may brush your teeth the morning of surgery, but do not swallow the water. Wear your dentures and partial plates to the hospital (no adhesive). Shower the night the before. If applicable, use the CHG (chlorhexidine gluconate) soap or wipes. Please be advised, [place] [facility] has transitioned to a cashless payment system. What should I bring to the hospital? If you received a green plastic bracelet, bring it with you the day of surgery and your nurse will put it on you. Eyeglass or contact lens case If you will be spending the night, please bring personal care items and leave them in the car until you are taken to your room after surgery. Leave ALL valuables at home. If any of these instructions conflict with those you recieved from the surgeon, please seek clarification from your surgeon's office. DEEP BREATHING EXERCISES This exercise helps promote good air exchange and helps to prevent pneumonia after surgery. Breathe in slowly and deeply through the nose. Hold your breath for a few seconds and then exhale slowly through the mouth. Repeat this three times and then cough. Coughing helps to clear your lungs. If you have had a surgery with an incision into your abdomen or chest, press gently against your incision with a pillow or a folded blanket when you cough. Please be aware - it may not be berumen to cough following some types of surgeries involving the eyes, ears, sinuses and throat. Always follow your doctor's instructions. LEG EXERCISES These exercises help promote good circulation and help to prevent blood clots after surgery. Point your toes to the ceiling and then point them to the wall. Do this slowly about 15-20 times. You may also move your feet in circles. Do the exercise that is most comfortable for you. If you have had surgery involving your shoulder or arm, we recommend you move your fingers. PRACTICING We ask that you begin practicing these exercises before your surgery. After surgery try to do both exercises at least every 2 hours during the day and early evening. SURGICAL SITE INFECTION AND PREVENTION What is a Surgical Site Infection? Infection can happen to the area of the body where surgery is done. This is called a surgical site infection (SSI). A SSI does not happen very often. Can SSIs be treated? Antibiotics are used to treat SSI. Some patients may need another surgery to treat the infection. The doctor will discuss treatment options with you. What are some of the things that hospitals are doing to prevent SSIs? Soap and water or alcohol hand rub are used before and after caring for each patient.Special soap is used to clean surgery workers hands and arms just before the surgery. Masks, gowns, gloves and hair covers are worn during the surgery to keep the area clean. Hair in the surgery area may be removed with clippers (not razors). A special soap that kills germs is used to clean the skin at the surgery site. Antibiotics may be given before the surgery starts. What can you do to prevent SSIs? Before surgery: You may be asked to shower or bathe with a special soap that kills germs the night before and the day of surgery. Use the soap as you were told. If you smoke, stop or cut down. Ask your doctor about ways to quit. Do not shave near where you will have surgery. Shaving can irritate the skin and make it easier to get and infection. After surgery: Be sure that the doctors and nurses clean their hands before and after touching you. Be sure your family and friends clean their hands before and after visiting you. Do not be afraid to remind them. * Care for your wound at home as told by your doctor or nurse * Call your doctor right away if you have fever, redness, increased pain, or drainage at the surgery site. Further questions? Contact the doctor, nurse or the Infection Prevention and Control department if you have any questions. PATIENT RIGHTS AND RESPONSIBILITIES As a patient at [facility], you have the right to: Receive medical care and be informed of who is taking care of you Be treated with dignity and respect Have a family member/asset protection representative of choice and your physician notified of your admission Receive information and actively participate in decisions about your care and treatment Refuse care, treatment and services Decide who may provide your support and speak for you Access moravian and spiritual services Participate in ethical issues and questions about your care Receive private and confidential care Have appropriate assessment and management of your pain Know guest visitation restrictions or limitations Have an advance directive Access protective services Consent or refuse to participate in research studies or production or recordings, films or other images Have resolution of your complaints Receive information of hospital charges and payment methods Patient/patient asset protection representative responsibilities are to: Provide information about health status to facilitate care, treatment and services Follow the treatment, plan, keep appointments and speak up when you do not understand the plan Respect the rights of other patients and healthcare personnel Follow organizational rules and regulations that support quality care and a safe environment Fulfill financial obligations as promptly as possible documented in this encounter [facility] 08-17-2024 History of Present illness Narrative Flagyl documented in this encounter [facility] 08-13-2024 History of Present illness Narrative Images from the original note were not included. Jona Vann MD Obstetrics and Gynecology Patient: Charis Allen : 2000 (23 y.o.) Yearly Wellness Exam Date: 08/13/2024 Reason for Visit - Chief Complaint Patient presents with Gynecologic Exam LMP: 08/04/24 Last Pap: first pap Complaints: The patient, Charis, reports having experienced spotting during the menstrual period, but not during the most recent one. She denies any problems with discharge, , or bleeding. She is not currently on any hormones and has had unprotected intercourse. Her last period was on the . Charis is not on any new medications but has recently started taking Cycle-PMS gummies for hormone balance. 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 Visit Vitals OB Status Unknown Smoking Status Never History of Present Illness, Associated Treatments and Results - OB History Para Term AB Living 1 0 0 0 0 0 SAB IAB Ectopic Multiple Live Births 0 0 0 0 0 # Outcome Date GA Lbr Dwight/2nd Weight Sex Type Anes PTL Lv 1 Review of Systems - Constitutional: Negative. HENT: Negative. Eyes: Negative. Respiratory: Negative. Cardiovascular: Negative. Gastrointestinal: Negative. Endocrine: Negative. Genitourinary: Negative. Musculoskeletal: Negative. Skin: Negative. Allergic/Immunologic: Negative. Neurological: Negative. Hematological: Negative. Psychiatric/Behavioral: Negative. Allergies Allergen Reactions Cyproheptadine Diarrhea Other Reaction(s): Other: See Comments Other reaction(s): Other: See Comments Passing out, turning white. Passing out, turning white. Azithromycin Other Reaction(s): Unknown Reaction Levonorgestrel-Ethinyl Estrad Other Reaction(s): Other (See Comments) Patient not sure Penicillins Other Reaction(s): Unknown Reaction, rash Doxycycline Dizziness Other Reaction(s): Dizzy/Vertigo, Other: See Comments Other reaction(s): Other: See Comments Other reaction(s): dizziness dizziness dizziness Other Reaction(s): Unknown Reaction, rash Oxycodone Palpitations Penicillin G Sodium Rash Other reaction(s): rash Current Outpatient Medications: methylphenidate ER (Concerta) 18 MG CR tablet, Take 1 tablet (18 mg) by mouth in the morning. Do not crush, chew, or split.., Disp: 30 tablet, Rfl: 0 Past Medical History: Diagnosis Date Blood type A+ Chiari syndrome (CMS/HCC) 12/27/2022 History of chicken pox Migraines (CMS/HCC) Seasonal allergies Past Surgical History: Procedure Laterality Date APPENDECTOMY 2012 DILATION AND CURETTAGE OF UTERUS 2022 suction D&C TONSILLECTOMY 2011 & adenoids TYMPANOSTOMY TUBE PLACEMENT Right permanant tube Family History Problem Relation Name Age of Onset No Known Problems Mother No Known Problems Father No Known Problems Maternal Grandmother No Known Problems Maternal Grandfather Breast cancer Paternal Grandmother Lung cancer Paternal Grandmother Thyroid disease Paternal Grandmother Leukemia Paternal Grandfather Social History Tobacco Use Smoking Status Never Smokeless Tobacco Never Physical Exam - General appearance, mentation, extraocular movements, facial strength and movement, hearing, upper and lower extremity strength and tone, sensation to gross testing, coordination, and gait are normal or at baseline unless noted below. Physical Exam Constitutional: Appearance: Normal appearance. Genitourinary: Right Labia: No rash or lesions. Left Labia: No lesions or rash. No vaginal discharge or erythema. No vaginal prolapse present. No vaginal atrophy present. Right Adnexa: not tender and no mass present. Left Adnexa: not tender and no mass present. No cervical lesion. Uterus is not tender. Uterus is anteverted. Breasts: Right: Normal. No mass or nipple discharge. Left: Normal. No mass or nipple discharge. HENT: Head: Normocephalic and atraumatic. Cardiovascular: Rate and Rhythm: Normal rate and regular rhythm. Pulmonary: Breath sounds: Normal breath sounds. Abdominal: General: There is no distension. Palpations: Abdomen is soft. There is no mass. Tenderness: There is no abdominal tenderness. Musculoskeletal: General: Normal range of motion. Cervical back: Neck supple. Lymphadenopathy: Cervical: No cervical adenopathy. Neurological: Mental Status: She is alert and oriented to person, place, and time. Skin: General: Skin is warm and dry. Psychiatric: Mood and Affect: Mood normal. Assessment/Plan ICD-10-CM 1. Screening for malignant neoplasm of cervix Z12.4 2. Encounter for gynecological examination without abnormal finding Z01.419 Pap and exam performed. Results can be found in MyChart in 7 days Return 1 year/prn 1. Pelvic examination and Pap smear: - Plan: a) Advise the patient to contact the clinic if any issues arise. Nuswab ordered for symptoms 2. Irregular menstruation and spotting: - Patient reported irregular menstruation and spotting during the last cycle - Not on hormonal medications and has had unprotected intercourse - Plan: a) Order a test and hormone status. b) Instruct the patient to return on the for blood work to assess hormonal levels. c) Advise the patient to monitor her menstrual cycles using an angelika and report any further irregularities. 3. 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 b) Send a referral for mental health services. c) Encourage the patient to attend at least one session to evaluate the potential benefits of therapy. 4. Cycle-PMS gummies for hormone balance: - Patient recently started taking Cycle-PMS gummies containing [place] - Plan: a) Advise the patient to continue taking the gummies as directed. b) Monitor for any side effects, such as breast tenderness. c) Instruct the patient to contact the clinic if any issues arise or if she needs to discontinue the gummies. documented in this encounter [facility] 08-07-2024 Miscellaneous Notes Surgery Scheduling Request 08/07/24 Patient: Charis Allen : 2000 Surgical Procedure(s): Direct laryngoscopy With biopsy of right base of tongue lesion Side(s): Right Anesthesia: General Surgery Time: 30 minutes Facility Preference: [facility] Post Op Destination: Outpatient Preop Anesthesia Appointment?: Yes Lab Testing?: No Medical Clearance Required?: No Does medical clearance include perioperative management of anticoagulants? No When should patient follow up after surgery? 1-[address] Jennings documented in this encounter [facility] 08-07-2024 Telephone encounter Note Surgery Scheduling Request 08/07/24 Patient: Charis Allen : 2000 Surgical Procedure(s): Direct laryngoscopy With biopsy of right base of tongue lesion Side(s): Right Anesthesia: General Surgery Time: 30 minutes Facility Preference: [facility] Post Op Destination: Outpatient Preop Anesthesia Appointment?: Yes Lab Testing?: No Medical Clearance Required?: No Does medical clearance include perioperative management of anticoagulants? No When should patient follow up after surgery? 1-[address] Jennings [facility] Work Phone: 08-07-2024 History of Present illness Narrative Images from the original note were not included. [facility] [address] [place] [address] [place] [phone] SUBJECTIVE: Patient ID (2000): Charis Allen is a 23 y.o. female presents today for Chief Complaint Patient presents with Sore Throat Chronic HPI: Charis is seen as a new patient today for chronic throat pain. She reports that this has been ongoing for a year. She reports that her throat feels sore and scratchy intermittently, but feels it is more often sore than not. When symptoms present, she reports pain while swallowing and occasional coughing. She states that the discomfort is worse in the morning and slightly decreases through the day, but does not ever fully resolve. She has occasional difficulty swallowing when she has her sore throat. Patient was previously instructed for reflux management through diet to see if it would help, which she states had no effect. Patient has allergies but does not have an referral rn. She takes Claritin. She takes a throat numbing spray when she gets allergies. She has tried a nasal spray intermittently because of her allergies, but she did not note any improvement. She underwent an adenotonsillectomy at age 8, with an adenoidectomy revision in 2018. She denies a history of recurrent strep. She is a nonsmoker and admits to intermittent alcohol use. Patient also previously underwent craniotomy chiari decompression (01/27/2023). HISTORY: Past Medical History: Diagnosis Date Allergic Cerebellar tonsillar ectopia (CMS-HCC) Concussion Multiple Dysfunction of both eustachian tubes Head injury 2010 With LOC Headache History of chicken pox 2011 Past Surgical History: Procedure Laterality Date ADENOIDECTOMY Bilateral 11/02/2017 Performed by Karthikeyan Lopez MD at [facility] APPENDECTOMY 2016 APPLICATION GRAFT PAPER PATCH EAR Right 06/04/2024 Performed by Mich Verde MD at [facility] CRANIOTOMY CHIARI DECOMPRESSION / N/A 01/27/2023 Performed by Ajay Barbosa MD at [facility] CYSTOSCOPY RETROGRADE PYELOGRAM Bilateral 11/30/2022 Performed by Margot Hernandez MD at [facility] DILATION AND CURETTAGE OF UTERUS 07/31/2023 EUSTACHIAN TUBE DILATION Bilateral 11/02/2017 Performed by Karthikeyan Lopez MD at [facility] POSTERIOR LAMINECTOMY CERVICAL SINGLE LEVEL / C1 N/A 01/27/2023 Performed by Ajay Barbosa MD at [facility] REMOVAL TUBE EAR Right 06/04/2024 Performed by Mich Verde MD at [facility] TONSILLECTOMY TYMPANOSTOMY TUBE PLACEMENT TYMPANOTOMY WITH PERMANENET VENT TUBE INSERTION. TYMPANOTOMY WITH NONPERMANENT TUBE IN LEFT EAR Bilateral 11/02/2017 Performed by Karthikeyan Lopez MD at [facility] Family History Problem Relation Age of Onset Asthma Mother Back Problems Father Heart disease Maternal Grandmother Heart disease Maternal Grandfather Hypertension Paternal Grandmother Thyroid disease Paternal Grandmother Breast cancer Paternal Grandmother Cancer Paternal Grandfather Anesthesia problems Neg Hx Bleeding Disorder Neg Hx Clotting disorder Neg Hx Ovarian cancer Neg Hx Colon cancer Neg Hx Diabetes Neg Hx Stroke Neg Hx Social History Socioeconomic History Marital status: Single Spouse name: Not on file Number of children: Not on file Years of education: Not on file Highest education level: Not on file Occupational History Not on file Tobacco Use Smoking status: Never Smokeless tobacco: Never Vaping Use Vaping status: Never Used Substance and Sexual Activity Alcohol use: Yes Comment: q 1x per month Drug use: No Sexual activity: Defer Other Topics Concern Not on file Social History Narrative Lives alone. 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 Social Drivers of Health Financial Resource Strain: Patient Declined (11/12/2023) [facility] Overall Financial Resource Strain (CARDIA) Difficulty of Paying Living Expenses: Patient declined Food Insecurity: No Food Insecurity (08/20/2024) Hunger Screening Food Insecurity - Worry: Never True Food Insecurity - Inability: Never True Transportation Needs: Patient Declined (11/12/2023) Received from [facility] - Transportation Lack of Transportation (Medical): Patient declined Lack of Transportation (Non-Medical): Patient declined Physical Activity: Patient Declined (11/12/2023) Received from [facility] Exercise Vital Sign Days of Exercise per Week: Patient declined Minutes of Exercise per Session: Patient declined Stress: Not on file Social Connections: Unknown (11/12/2023) [facility] Social Connection and Isolation Panel [NHANES] Frequency of Communication with Friends and Family: Patient declined Frequency of Social Gatherings with Friends and Family: Patient declined Attends Tenriism Services: Not on file Active Member of Clubs or Organizations: Patient declined Attends Club or Organization Meetings: Patient declined Marital Status: Patient declined Interpersonal Safety: Patient Declined (11/12/2023) Received from [facility] Game [employer]isters [facility] Humiliation, Afraid, Rape, and Kick questionnaire Fear of Current or Ex-Partner: Patient declined Emotionally Abused: Patient declined Physically Abused: Patient declined Sexually Abused: Patient declined Housing Instability: Not on file Allergies Allergen Reactions Doxycycline Dizziness Penicillin G Sodium Rash Pollen Extracts Other (See Comments) Runny nose and itchy eyes No current facility-administered medications for this visit. No current outpatient medications on file. Facility-Administered Medications Ordered in Other Visits Medication Dose Route Frequency Provider Last Rate Last Admin fentaNYL (SUBLIMAZE) injection 25 mcg 25 mcg intravenous Q10 Min PRN Caden Thomas MD Or fentaNYL (SUBLIMAZE) injection 50 mcg 50 mcg intravenous Q10 Min PRN Caden Thomas MD lactated ringers infusion 100 mL/hr intravenous Continuous Caden Thomas MD 100 mL/hr at 08/27/24 0851 100 mL/hr at 08/27/24 0851 lidocaine PF (XYLOCAINE) 10 mg/mL (1 %) injection 1 mg 0.1 mL intradermal PRN Caden Thomas MD midazolam (PF) (VERSED) injection 2 mg 2 mg intravenous Once Caden Thomas MD midazolam (PF) (VERSED) injection 2 mg 2 mg intravenous Once Caden Thomas MD scopolamine (TRANSDERM-SCOP) 1 mg/3 days 1 patch 1 patch transdermal Once Caden Thomas MD 1 patch at 08/27/24 0835 sodium chloride 0.9 % flush 3 mL 3 mL intravenous PRN Caden Thomas MD sodium chloride 0.9 % flush 3 mL 3 mL intravenous Q12H [facility] Caden Thomas MD REVIEW OF SYSTEMS: Review of Systems Constitutional: Negative for chills and fever. HENT: Positive for sore throat. Negative for congestion, trouble swallowing and voice change. Eyes: Negative for discharge and visual disturbance. Respiratory: Positive for cough and shortness of breath. Cardiovascular: Negative for chest pain and palpitations. Gastrointestinal: Negative for nausea and vomiting. Endocrine: Negative for cold intolerance and heat intolerance. Genitourinary: Negative for difficulty urinating. Musculoskeletal: Negative for gait problem, neck pain and neck stiffness. Skin: Negative for color change. Allergic/Immunologic: Positive for environmental allergies. Negative for food allergies. Neurological: Negative for dizziness, light-headedness and headaches. Hematological: Does not bruise/bleed easily. Psychiatric/Behavioral: Negative for confusion. Data Reviewed: PHYSICAL EXAMINATION: Temp 36.8 C (98.2 F) (Temporal) Ht 167.6 cm (5' 6 ) Wt 69.8 kg (153 lb 12.8 oz) BMI 24.82 kg/m Constitutional: Healthy, alert, cooperative, and in no distress and normal ablility to communicate . Voice normal quality. Head/Face: Normocephalic, without obvious abnormality, salivary glands normal, atraumatic, sinuses nontender, and facial nerve intact Eyes: No gross abnormalities., EOMI, no nystagmus, and no lid ptosis Ear: RIGHT: hearing normal, external ear normal, canal normal, and TM normal without fluid or infection LEFT: hearing normal, external ear normal, canal normal, and TM normal without fluid or infection Nose: External nose appears normal, septum midline, normal mucosa, normal turbinates, and no nasal polyps or masses Oral: normal teeth, normal lips, normal gums, normal hard palate, normal anterior tongue, and oral mucosa moist Oropharynx: normal-appearing mucosa, no pharyngitis, no exudate, tonsils surgically absent, normal soft palate and uvula, postnasal drip, and cobblestoning Nasopharynx: unable to view due to hyperactive gag reflex, Hypopharynx: The hypopharynx was examined by mirror, normal, normal epiglottis, pharyngeal gunn: normal, base of tongue: abnormal small papillomatous like lesion- right-sided, and pyriform sinuses: normal, Larynx: The larynx was examined with a mirror, false and true vocal cords were normal, vocal cord mobility was normal, and arytenoids normal TMJ: no pain, crepitus, or trismus Neck:normal, supple, no adenopathy, thyroid normal in size, no nodules or tenderness, no neck masses palpable, and carotids normal Respiration: No stridor, Normal respiratory effort. Heart: Regular rate Neurologic: Grossly normal Alert Oriented X 3 Affect normal Cranial nerves 2 -12 grossly intact ASSESSMENT/PLAN: Charis was seen today for sore throat. Diagnoses and all orders for this visit: Chronic throat pain Odynophagia Tongue lesion Post-nasal drip Allergic rhinitis, unspecified seasonality, unspecified trigger Plan: - Reviewed patient's CT neck soft tissue. This was unremarkable. - Reviewed patient's previous flexible laryngoscopy video with Tiesha. This showed a epbua-gprq-mi-tongue lesion that is possibly a papilloma versus other. Discussed possible direct laryngoscopy with biopsy of right base of tongue lesion, but discussed that this lesion may not be causing patient's symptoms. - Patient also had cobblestoning and post-nasal drainage present. Patient states that she would like to follow through with the biopsy first before considering allergy referral. - Discussed allergy testing for patient so that she can be put on a regimen by an referral rn or undergo immunotherapy if indicated. She respectfully declined at this time. Discussed a potential allergy regimen: Flonase Sensimist twice daily, Zyrtec daily, Astelin spray twice daily. Discussed other options as well: nasal irrigations, nasal sprays. - Discussed that sore throat can also be caused by reflux issues. Reflux issues may not always have obvious symptoms. Went over options to work up for this: esophagram, EGD with GI doctor, diet modifications. - Reflux diet and lifestyle modifications discussed. Patient to avoid caffeine, carbonated beverages, alcohol, fried/fatty foods, citric acid based foods (tomatoes), and eating within 3 hours of bed. Also, consider placing 3 inch blocks under headboard of bed. - Patient would like to consider this option after biopsy. -Risks of direct laryngoscopy with biopsy: Bleeding, infection, pain, anesthesia complications, perforation of the esophagus, injury to the teeth or voice box, change in the voice, hoarseness, change to swallowing. - Patient was advised to avoid aspirin, Aleve, ibuprofen type products, Mobic (meloxicam), anti-inflammatory medications used for arthritis or pain, as well as supplements such as vitamin E and fish oil 2 weeks prior to and after surgery. Use of these products can cause increased risk of bleeding. Parent to call insurance company to check if prior authorization is required and if the procedure is a covered benefit. Patient may call Jamil at [phone] to schedule surgery. - POSTOP INSTRUCTIONS You may resume a normal diet but may want to start with soft and bland type foods. Wait [address] not drive while on narcotics. No heavy lifting, bending, straining for 1 week postop. Take prescription medications as indicated. For less severe pain you may use Tylenol. A follow-up visit should be made for 1 week. If you have any questions or concerns please do not hesitate to call [phone] Dr. Luis Enrique Jennings Scribe Statement: Scribed for and in the presence of Luis Enrique Jennings DO by Francisco Garcia (scribe). Francisco Garcia 08/07/2024 10:33 AM Provider Statement: I Luis Enrique Jennings DO personally performed the services described in the documentation as described by the above named scribe in my presence. It is both accurate and complete at the time of final signature. Dr. Luis Enrique Jennings 08/07/2024 10:18 AM Counseling: The following elements of medical decision making were considered during this visit: Prescription drug management, Independently reviewed of images or pathology results, Reviewed and summarized previous records, and Independent interpretation of test performed by another physician or qualified healthcare provider not separately reported (tympanogram, audiogram, imaging). The patient was counseled regarding prognosis, risks and benefits of treatment options, impressions, importance of compliance with treatment and risk factor reductions. The patient verbalized understanding and agreement to the plan. Please note that parts of this chart were generated using voice recognition [employer] dictation software. Although every effort was made to ensure the accuracy of this automated agent ticketing gate, some errors in agent ticketing gate may have occurred. documented in this encounter [facility] 08-07-2024 Instructions Francisco Garcia - 08/07/2024 10:00 AM EDT - Reviewed patient's CT neck soft tissue. This was unremarkable. - Reviewed patient's previous flexible laryngoscopy video with Tiesha. This showed a [id number] lesion that is possibly a papilloma versus other. Discussed possible direct laryngoscopy with biopsy of right base of tongue lesion, but discussed that this lesion may not be causing patient's symptoms. - Patient also had cobblestoning and post-nasal drainage present. Patient states that she would like to follow through with the biopsy first before considering allergy referral. - Discussed allergy testing for patient so that she can be put on a regimen by an referral rn or undergo immunotherapy if indicated. She respectfully declined at this time. Discussed a potential allergy regimen: Flonase Sensimist twice daily, Zyrtec daily, Astelin spray twice daily. Discussed other options as well: nasal irrigations, nasal sprays. - Discussed that sore throat can also be caused by reflux issues. Reflux issues may not always have obvious symptoms. Went over options to work up for this: esophagram, EGD with GI doctor, diet modifications. - Reflux diet and lifestyle modifications discussed. Patient to avoid caffeine, carbonated beverages, alcohol, fried/fatty foods, citric acid based foods (tomatoes), and eating within 3 hours of bed. Also, consider placing 3 inch blocks under headboard of bed. - Patient would like to consider this option after biopsy. -Risks of direct laryngoscopy with biopsy: Bleeding, infection, pain, anesthesia complications, perforation of the esophagus, injury to the teeth or voice box, change in the voice, hoarseness, change to swallowing. - Patient was advised to avoid aspirin, Aleve, ibuprofen type products, Mobic (meloxicam), anti-inflammatory medications used for arthritis or pain, as well as supplements such as vitamin E and fish oil 2 weeks prior to and after surgery. Use of these products can cause increased risk of bleeding. Parent to call insurance company to check if prior authorization is required and if the procedure is a covered benefit. Patient may call Jamil at [phone] to schedule surgery. - POSTOP INSTRUCTIONS You may resume a normal diet but may want to start with soft and bland type foods. Wait [address] Do not drive while on narcotics. No heavy lifting, bending, straining for 1 week postop. Take prescription medications as indicated. For less severe pain you may use Tylenol. A follow-up visit should be made for 1 week. If you have any questions or concerns please do not hesitate to call [phone] Dr. [facility] documented in this encounter [facility] 07-25-2024 Instructions Olga Thompson MA - 07/25/2024 12:39 PM EDT FUNGAL NAIL TREATMENT Your nail condition is being treated with the most advanced treatment available, which is the result of successful research. Success with this stubborn condition will require your cooperation. GENERAL INSTRUCTIONS File/thin out top of nail. Thoroughly clean the toenails and the nail beds at least once every week. Soak feet in vinegar and water or Epsom salt and water. Use antifungal or antibacterial soap and a nailbrush to remove any old medication and fungal debris, which has accumulated. Apply the topical antifungal medication every day (TINEACIDE) or (TEATREE OIL). You may also use Vicks vapo rub to soften the nail. This may be alternated with the antifungal. Additional applications should be made following activities such as manual work, sports activities, swimming, or bathing which may remove the coating of the medication from the nails. Cover entire nail and nail bed with medication. Allow a small amount of the medication to get underneath the tip of the nail. Do not force under nail. Let the medication dry thoroughly. No protective dressing or covering is required unless specified during office visit. Use antifungal powder or spray to disinfect your shoes. Use LYSOL spray after each use to disinfect your bathing area. You can also use TINACTIN or DESENEX spray on feet and in shoes. CEDAR balls/sachet can be used in shoes. documented in this encounter [facility] 07-25-2024 Note HNO ID: [id number] Author: ÁNGELA DELGADO DPM Service: ? Author Type: Physician Type: Progress Notes Filed: 07/25/2024 17:34 Note Text: Service Date: July 25, 2024 PCP: No primary care provider on file. Last Podiatry Visit: 12/26/2023 The history is provided by the patient. Patient presents with: Nail Check: Pt following up on bilateral hallux nails post matrixectomy in december. PT relates that she was sick and forgot about coming in for her post op appts. Pt relates that she was using antifungal however she discontinued because she was not sure if she still needed to use them. Pt relates that she never took the lamisil due to other medication she is taking. ALLERGIES Allergen Reactions Periactin [Cyprohep* Diarrhea, Other: See Comments Passing out, turning white. Doxycycline Other: See Comments dizziness Penicillin G Sodium Rash Seasonal Allergies Current Outpatient Medications on File Prior to Visit Medication Sig clindamycin (CLEOCIN) 1 % external solution Apply to the affected area of face once daily. methylphenidate HCl (CONCERTA ORAL) Take 18 mg by mouth once daily. Sulfacetamide Sodium-Sulfur 10-5 % (w/w) lotn Apply to all acne-prone areas twice daily (Patient not taking: Reported on 11/21/2023) adapalene (DIFFERIN) 0.1 % gel Apply to all acne-prone areas at bedtime. (Patient not taking: Reported on 11/21/2023) pimecrolimus (ELIDEL) 1 % cream APPLY 2 TIMES DAILY TO FACIAL AREAS NEEDED FOR RASH/ITCHING (Patient not taking: Reported on 11/21/2023) No current facility-administered medications on file prior to visit. Review of Systems Constitutional: Negative for chills and fever. Cardiovascular: Negative for leg swelling. Musculoskeletal: Negative for gait problem. Skin: Negative for rash and wound. Neurological: Negative for numbness. Hematological: Does not bruise/bleed easily. Physical Exam Vitals reviewed. Constitutional: Appearance: Normal appearance. Cardiovascular: Pulses: Dorsalis pedis pulses are 2+ on the right side and 2+ on the left side. Posterior tibial pulses are 2+ on the right side and 2+ on the left side. Musculoskeletal: General: Tenderness present. Normal range of motion. Comments: Patient has a flexible foot type with a compensating forefoot splay. Feet: Right foot: Toenail Condition: Right toenails are abnormally thick. Fungal disease present. Left foot: Toenail Condition: Left toenails are abnormally thick. Fungal disease present. Skin: General: Skin is dry. Capillary Refill: Capillary refill takes 2 to 3 seconds. Comments: Nails are thickened and dystrophic. Right foot worse than left. Neurological: General: No focal deficit present. Mental Status: She is alert and oriented to person, place, and time. Psychiatric: Mood and Affect: Mood normal. ASSESSMENT Onychomycosis (primary encounter diagnosis) Tinea pedis, unspecified laterality Return if symptoms worsen or fail to improve. TREATMENT We discussed the possible etiologies of discolored, dystrophic, and thickened nails including fungus, yeast, mold as well as in some instances, prior trauma, or mechanical causes such as repetitive microtrauma in shoe gear. We discussed topical medication for discolored toenails which has very low success but no major side effects. Patient would like to proceed with topical medication. Nail care instructions dispensed. Discussion of antifungal cream to skin on feet daily. The documentation for this note was completed by Olga Thompson MA acting as scribe for Ángela Delgado DPM. July 25, 2024 12:18 PM I spent 20 minutes on the date of the service which included preparing to see the patient, [id number] patient care, completing clinical documentation, obtaining and/or reviewing separately obtained history, performing a medically appropriate examination, counseling and educating the patient/family/caregiver, ordering medications, tests and care coordination (not separately reported). Time did not include procedure time. I agree with the Chief Complaint, ROS, and Past Histories independently gathered by the clinical data support analyst and the remaining scribed note accurately describes my personal service to the patient. This document has been created with the use of voice recognition technology. It may contain inaccuracies, misspellings, inaccurate syntax or inappropriate word context that escaped review. Ángela Delgado DPM [facility] 07-25-2024 History of Present illness Narrative Service Date: July 25, 2024 PCP: No primary care provider on file. Last Podiatry Visit: 12/26/2023 The history is provided by the patient. Patient presents with: Nail Check: Pt following up on bilateral hallux nails post matrixectomy in december. PT relates that she was sick and forgot about coming in for her post op appts. Pt relates that she was using antifungal however she discontinued because she was not sure if she still needed to use them. Pt relates that she never took the lamisil due to other medication she is taking. ALLERGIES Allergen Reactions Periactin [Cyprohep* Diarrhea, Other: See Comments Passing out, turning white. Doxycycline Other: See Comments dizziness Penicillin G Sodium Rash Seasonal Allergies Current Outpatient Medications on File Prior to Visit Medication Sig clindamycin (CLEOCIN) 1 % external solution Apply to the affected area of face once daily. methylphenidate HCl (CONCERTA ORAL) Take 18 mg by mouth once daily. Sulfacetamide Sodium-Sulfur 10-5 % (w/w) lotn Apply to all acne-prone areas twice daily (Patient not taking: Reported on 11/21/2023) adapalene (DIFFERIN) 0.1 % gel Apply to all acne-prone areas at bedtime. (Patient not taking: Reported on 11/21/2023) pimecrolimus (ELIDEL) 1 % cream APPLY 2 TIMES DAILY TO FACIAL AREAS NEEDED FOR RASH/ITCHING (Patient not taking: Reported on 11/21/2023) No current facility-administered medications on file prior to visit. Review of Systems Constitutional: Negative for chills and fever. Cardiovascular: Negative for leg swelling. Musculoskeletal: Negative for gait problem. Skin: Negative for rash and wound. Neurological: Negative for numbness. Hematological: Does not bruise/bleed easily. Physical Exam Vitals reviewed. Constitutional: Appearance: Normal appearance. Cardiovascular: Pulses: Dorsalis pedis pulses are 2+ on the right side and 2+ on the left side. Posterior tibial pulses are 2+ on the right side and 2+ on the left side. Musculoskeletal: General: Tenderness present. Normal range of motion. Comments: Patient has a flexible foot type with a compensating forefoot splay. Feet: Right foot: Toenail Condition: Right toenails are abnormally thick. Fungal disease present. Left foot: Toenail Condition: Left toenails are abnormally thick. Fungal disease present. Skin: General: Skin is dry. Capillary Refill: Capillary refill takes 2 to 3 seconds. Comments: Nails are thickened and dystrophic. Right foot worse than left. Neurological: General: No focal deficit present. Mental Status: She is alert and oriented to person, place, and time. Psychiatric: Mood and Affect: Mood normal. ASSESSMENT Onychomycosis (primary encounter diagnosis) Tinea pedis, unspecified laterality Return if symptoms worsen or fail to improve. TREATMENT We discussed the possible etiologies of discolored, dystrophic, and thickened nails including fungus, yeast, mold as well as in some instances, prior trauma, or mechanical causes such as repetitive microtrauma in shoe gear. We discussed topical medication for discolored toenails which has very low success but no major side effects. Patient would like to proceed with topical medication. Nail care instructions dispensed. Discussion of antifungal cream to skin on feet daily. The documentation for this note was completed by Olga Thompson MA acting as scribe for Ángela Delgado DPM. July 25, 2024 12:18 PM I spent 20 minutes on the date of the service which included preparing to see the patient, [id number] patient care, completing clinical documentation, obtaining and/or reviewing separately obtained history, performing a medically appropriate examination, counseling and educating the patient/family/caregiver, ordering medications, tests and care coordination (not separately reported). Time did not include procedure time. I agree with the Chief Complaint, ROS, and Past Histories independently gathered by the clinical data support analyst and the remaining scribed note accurately describes my personal service to the patient. This document has been created with the use of voice recognition technology. It may contain inaccuracies, misspellings, inaccurate syntax or inappropriate word context that escaped review. Ángela Delgado DPM documented in this encounter [facility] 07-17-2024 History of Present illness Narrative Images from the original note were not included. Subjective Patient ID: Charis Allen is a 23 y.o. female who presents for Follow-up (Pt states she is here for a follow up on her medication. Pt states she has no concerns at this time. ). ADHD Pt presents to the office for a medication check of methylphenidate, which she needs a refill of. She has been taking the medication daily without any issues and is tolerating the medication well. Pt denies the symptoms listed below and feels well overall. No current complaints. Review of Systems Constitutional: Negative for appetite change, chills and fever. Eyes: Negative for visual disturbance. Respiratory: Negative for shortness of breath. Cardiovascular: Negative for chest pain and palpitations. Gastrointestinal: Negative for diarrhea, nausea and vomiting. Musculoskeletal: Negative for myalgias. Skin: Negative for rash. All other systems reviewed and are negative. Objective Visit Vitals BP 116/68 Pulse 70 Temp 97.7 F Ht 5' 7 Wt 154 lb 6.4 oz SpO2 99% BMI 24.18 kg/m OB Status Unknown Smoking Status Never BSA 1.82 m Physical Exam Constitutional: General: She is not in acute distress. Appearance: Normal appearance. HENT: Head: Normocephalic and atraumatic. Mouth/Throat: Mouth: Mucous membranes are moist. Eyes: Extraocular Movements: Extraocular movements intact. Cardiovascular: Rate and Rhythm: Normal rate and regular rhythm. Pulses: Normal pulses. Heart sounds: No murmur heard. No friction rub. No gallop. Pulmonary: Effort: No respiratory distress. Breath sounds: Normal breath sounds. No wheezing, rhonchi or rales. Abdominal: General: Bowel sounds are normal. There is no distension. Palpations: Abdomen is soft. Tenderness: There is no abdominal tenderness. Skin: General: Skin is warm and dry. Findings: No rash. Neurological: General: No focal deficit present. Mental Status: She is alert and oriented to person, place, and time. Psychiatric: Mood and Affect: Mood normal. Behavior: Behavior normal. Judgment: Judgment normal. Assessment/Plan Diagnoses and all orders for this visit: Attention deficit hyperactivity disorder (ADHD), combined type ([facility]) - methylphenidate ER (Concerta) 18 MG CR tablet; Take 1 tablet (18 mg) by mouth in the morning. Do not crush, chew, or split.. Continue with current drug therapy. Call office for worsening of symptoms. Per FDA regulations, follow ups have to occur every 3 months. You verbalized understanding of these rules in order for us to continue filling medications. OARRS reviewed. All questions answered. Call the office with any other questions or concerns. documented in this encounter [facility] 07-17-2024 Miscellaneous Notes Returned patient's call. No answer, left message on machine to call back. documented in this encounter [facility] 07-17-2024 Telephone encounter Note Returned patient's call. No answer, left message on machine to call back. [facility] 07-15-2024 History of Present illness Narrative Patient ID: Charis Allen is a 23 y.o. female. Chief Complaint: Chief Complaint Patient presents with Post-op Tube Removal History: Charis Allen is a pleasant 23 y.o. female who presents today for a postoperative visit. Patient is s/p ear tube removal on 06/04/2024. Patient reports her hearing is better. Past History: The following portions of the patient's history were reviewed and updated as appropriate: MEDICATIONS Current Outpatient Medications: methylphenidate HCl (CONCERTA) 18 mg CR tablet, Take 1 tablet (18 mg total) by mouth every morning., Disp: , Rfl: clindamycin (CLEOCIN T) 1 % lotion, Apply 1 application. topically in the morning., Disp: , Rfl: clotrimazole-betamethasone (LOTRISONE) cream, Apply 1 Application topically in the morning and 1 Application before bedtime. Apply to external auditory canals twice daily for 1 week then twice weekly thereafter.., Disp: 30 g, Rfl: 3 ondansetron ODT (ZOFRAN ODT) 4 mg disintegrating tablet, Dissolve 1 tablet (4 mg total) on tongue every 8 (eight) hours as needed for nausea for up to 10 doses. (Patient not taking: Reported on 12/19/2023), Disp: 10 tablet, Rfl: 0 tiZANidine (ZANAFLEX) 4 mg tablet, Take 1 tablet (4 mg total) by mouth every 6 (six) hours as needed for muscle spasms., Disp: 30 tablet, Rfl: 0 tretinoin (RETIN-A) 0.1 % cream, Apply 1 Application topically in the morning., Disp: , Rfl: ALLERGIES Seasonale (91) [levonorgestrel-ethinyl estrad], Doxycycline, and Penicillin g sodium PAST MEDICAL HISTORY Past Medical History: Diagnosis Date Cerebellar tonsillar ectopia (CMS-HCC) Concussion Multiple Dizziness Dysfunction of both eustachian tubes Head injury 2010 With LOC Headache History of chicken pox 2011 HL (hearing loss) PAST SURGICAL HISTORY Past Surgical History: Procedure Laterality Date ADENOIDECTOMY Bilateral 11/02/2017 Performed by Karthikeyan Lopez MD at [facility] APPENDECTOMY 2016 APPLICATION GRAFT PAPER PATCH EAR Right 06/04/2024 Performed by Mich Verde MD at [facility] CRANIOTOMY CHIARI DECOMPRESSION / N/A 01/27/2023 Performed by Ajay Barbosa MD at [facility] CYSTOSCOPY RETROGRADE PYELOGRAM Bilateral 11/30/2022 Performed by Margot Hernandez MD at [facility] DILATION AND CURETTAGE OF UTERUS 07/31/2023 EUSTACHIAN TUBE DILATION Bilateral 11/02/2017 Performed by Karthikeyan Lopez MD at [facility] POSTERIOR LAMINECTOMY CERVICAL SINGLE LEVEL / C1 N/A 01/27/2023 Performed by Ajay Barbosa MD at [facility] REMOVAL TUBE EAR Right 06/04/2024 Performed by Mich Verde MD at [facility] TONSILLECTOMY TYMPANOSTOMY TUBE PLACEMENT TYMPANOTOMY WITH PERMANENET VENT TUBE INSERTION. TYMPANOTOMY WITH NONPERMANENT TUBE IN LEFT EAR Bilateral 11/02/2017 Performed by Karthikeyan Lopez MD at [facility] SOCIAL HISTORY Social History Tobacco Use Smoking status: Never Smokeless tobacco: Never Vaping Use Vaping status: Never Used Substance Use Topics Alcohol use: No Drug use: No FAMILY HISTORY Family History Problem Relation Age of Onset Asthma Mother Back Problems Father Heart disease Maternal Grandmother Heart disease Maternal Grandfather Hypertension Paternal Grandmother Thyroid disease Paternal Grandmother Breast cancer Paternal Grandmother Cancer Paternal Grandfather Anesthesia problems Neg Hx Bleeding Disorder Neg Hx Clotting disorder Neg Hx Ovarian cancer Neg Hx Colon cancer Neg Hx Diabetes Neg Hx Stroke Neg Hx REVIEW OF SYSTEMS Review of Systems Constitutional: Negative for fever and chills. HENT: Negative for ear discharge, ear pain and tinnitus. Eyes: Negative for redness. Respiratory: Negative for shortness of breath. Cardiovascular: Negative for chest pain. Gastrointestinal: Negative for vomiting. Skin: Negative for rash. Neurological: Negative for dizziness and headaches. Psychiatric/Behavioral: Negative for confusion. Data Review: Physicial Exam: Ht 170.2 cm (5' 7 ) Wt 68.5 kg (151 lb) BMI 23.65 kg/m Constitution: Patient appears healthy, alert, oriented, with their usual voice, communication, and affect Head and Face: Normocephalic and Atraumatic. Facial nerve function normal Eyes: No Strabismus and EOM normal Ear: external ear normal, canal normal, and TM normal without fluid or infection Nose and Nasal Cavity: The external appearance, nasal mucosa, septum, and turbinates are unremarkable without drainage or lesion Oral Cavity: The lips, gums and teeth are unremarkable without mass or lesion. Neck: No asymmetry or mass, thyroid normal, no lymphadenopathy. Salivary glands normal. Cranial Nerves: Cranial nerves intact Procedure: Microscopic Examination Pre Op Diagnosis: Postoperative check Post Op Diagnosis: Same Procedure: Otologic Microscopic Examination Surgeon: Mich Verde MD Consent: Verbal Consent was obtained prior to the procedure. Anesthesia: None Complications: none Procedure: In a reclined position, using an otologic microscope, the examination was performed. Findings: See the findings recorded under the physical examination. Assessment Impression: Postoperative check. Plan: - Microscopic examination was completed in office today. The ears appear generally healthy. - Continue watchful monitoring. - Follow-up with audiogram. Visit Diagnosis and Orders: Charis was seen today for post-op. Diagnoses and all orders for this visit: Postop check - Comprehensive hearing test; Future Scribe Statement Scribed for MICH VERDE MD by olu Anderson. Provider Statement I MICH VERDE MD personally performed the services described in the documentation as described by the above named scribe. It is both accurate and complete at the time of final signature. documented in this encounter [facility] 07-15-2024 Instructions Gm Garcia - 07/15/2024 3:30 PM EDT - Microscopic examination was completed in office today. The ears appear generally healthy. - Continue watchful monitoring. - Follow-up with audiogram . documented in this encounter [facility] 07-03-2024 History of Present illness Narrative Images from the original note were not included. [facility] [address] [facility] [id number] SUBJECTIVE: Patient ID ([id number]): Charis Allen is a 23 y.o. female presents today for Chief Complaint Patient presents with Sore Throat HPI: Charis is seen today with complaints of chronic throat pain. She reports that this has been an ongoing issue for the past year. She states that her throat will feel sore and scratchy off and on, but she feels that the discomfort is present more often than not. When symptoms are present she endorses pain with swallowing and cough occasionally. She states that the discomfort is more pronounced in the morning and seems to let up throughout the day, but remains present. She has a history of adenotonsillectomy roughly at age 8. Revision of adenoidectomy was completed in 2018, by Dr. Lopez. She denies a history of recurrent strep infections. She is a nonsmoker and drinks alcohol on occasion. She denies a history of GERD. 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 HISTORY: Past Medical History: Diagnosis Date Cerebellar tonsillar ectopia ([facility]) Concussion Multiple Dizziness Dysfunction of both eustachian tubes Head injury 2011 With LOC Headache History of chicken pox 2012 HL (hearing loss) Past Surgical History: Procedure Laterality Date ADENOIDECTOMY Bilateral 11/02/2017 Performed by Karthikeyan Lopez MD at [facility] APPENDECTOMY 2016 APPLICATION GRAFT PAPER PATCH EAR Right 06/04/2024 Performed by Mich Verde MD at [facility] CRANIOTOMY CHIARI DECOMPRESSION / N/A 01/27/2023 Performed by Ajay Barbosa MD at [facility] CYSTOSCOPY RETROGRADE PYELOGRAM Bilateral 11/30/2022 Performed by Margot Hernandez MD at [facility] DILATION AND CURETTAGE OF UTERUS 07/31/2023 EUSTACHIAN TUBE DILATION Bilateral 11/02/2017 Performed by Karthikeyan Lopez MD at [facility] POSTERIOR LAMINECTOMY CERVICAL SINGLE LEVEL / C1 N/A 01/27/2023 Performed by Ajay Barbosa MD at [facility] REMOVAL TUBE EAR Right 06/04/2024 Performed by Mich Verde MD at [facility] TONSILLECTOMY TYMPANOSTOMY TUBE PLACEMENT TYMPANOTOMY WITH PERMANENET VENT TUBE INSERTION. TYMPANOTOMY WITH NONPERMANENT TUBE IN LEFT EAR Bilateral 11/02/2017 Performed by Karthikeyan Lopez MD at [facility] Family History Problem Relation Age of Onset Asthma Mother Back Problems Father Heart disease Maternal Grandmother Heart disease Maternal Grandfather Hypertension Paternal Grandmother Thyroid disease Paternal Grandmother Breast cancer Paternal Grandmother Cancer Paternal Grandfather Anesthesia problems Neg Hx Bleeding Disorder Neg Hx Clotting disorder Neg Hx Ovarian cancer Neg Hx Colon cancer Neg Hx Diabetes Neg Hx Stroke Neg Hx Social History Socioeconomic History Marital status: Single Spouse name: Not on file Number of children: Not on file Years of education: Not on file Highest education level: Not on file Occupational History Not on file Tobacco Use Smoking status: Never Smokeless tobacco: Never Vaping Use Vaping status: Never Used Substance and Sexual Activity Alcohol use: No Drug use: No Sexual activity: Defer Other Topics Concern Not on file Social History Narrative Lives alone. 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 of Health Financial Resource Strain: Patient Declined (11/12/2023) Re[facility] from [facility], [facility] Overall Financial Resource Strain (CARDIA) Difficulty of Paying Living Expenses: Patient declined Food Insecurity: No Food Insecurity (05/21/2024) Hunger Screening Food Insecurity - Worry: Never True Food Insecurity - Inability: Never True Transportation Needs: Patient Declined (11/12/2023) Received from [facility] - Transportation Lack of Transportation (Medical): Patient declined Lack of Transportation (Non-Medical): Patient declined Physical Activity: Patient Declined (11/12/2023) Received from [facility] Exercise Vital Sign Days of Exercise per Week: Patient declined Minutes of Exercise per Session: Patient declined Stress: Not on file Social Connections: Unknown (11/12/2023) Received from [facility] Social Connection and Isolation Panel [NHANES] Frequency of Communication with Friends and Family: Patient declined Frequency of Social Gatherings with Friends and Family: Patient declined Attends Tenriism Services: Not on file Active Member of Clubs or Organizations: Patient declined Attends Club or Organization Meetings: Patient declined Marital Status: Patient declined Interpersonal Safety: Patient Declined (11/12/2023) Received from [facility] Humiliation, Afraid, Rape, and Kick questionnaire Fear of Current or Ex-Partner: Patient declined Emotionally Abused: Patient declined Physically Abused: Patient declined Sexually Abused: Patient declined Housing Instability: Not on file Allergies Allergen Reactions Seasonale (91) [Levonorgestrel-Ethinyl Estrad] Other (See Comments) Patient not sure Doxycycline Dizziness Penicillin G Sodium Rash Current Outpatient Medications Medication Sig Dispense Refill methylphenidate HCl (CONCERTA) 18 mg CR tablet Take 1 tablet (18 mg total) by mouth every morning. clindamycin (CLEOCIN T) 1 % lotion Apply 1 application. topically in the morning. clotrimazole-betamethasone (LOTRISONE) cream Apply 1 Application topically in the morning and 1 Application before bedtime. Apply to external auditory canals twice daily for 1 week then twice weekly thereafter.. 30 g 3 ondansetron ODT (ZOFRAN ODT) 4 mg disintegrating tablet Dissolve 1 tablet (4 mg total) on tongue every 8 (eight) hours as needed for nausea for up to 10 doses. (Patient not taking: Reported on 12/19/2023) 10 tablet 0 tiZANidine (ZANAFLEX) 4 mg tablet Take 1 tablet (4 mg total) by mouth every 6 (six) hours as needed for muscle spasms. 30 tablet 0 tretinoin (RETIN-A) 0.1 % cream Apply 1 Application topically in the morning. No current facility-administered medications for this visit. REVIEW OF SYSTEMS: Review of Systems Constitutional: Negative for chills and fever. HENT: Positive for sore throat. Negative for congestion, ear discharge, ear pain, sinus pressure and sinus pain. Eyes: Negative for redness. Respiratory: Negative for shortness of breath. Cardiovascular: Negative for chest pain. Gastrointestinal: Negative for nausea and vomiting. Skin: Negative for rash. Neurological: Negative for dizziness and headaches. Psychiatric/Behavioral: Negative for confusion. Data Reviewed: PHYSICAL EXAMINATION: Ht 170.2 cm (5' 7 ) Wt 68.5 kg (151 lb) LMP 05/28/2024 BMI 23.65 kg/m Constitutional: Healthy, alert, cooperative, and in no distress and normal ablility to communicate . Voice normal quality. Head/Face: Normocephalic, without obvious abnormality, salivary glands normal, atraumatic, sinuses nontender, and facial nerve intact Eyes: No gross abnormalities., EOMI, no nystagmus, and no lid ptosis Ear: RIGHT: hearing normal, external ear normal, canal normal, and TM normal without fluid or infection LEFT: hearing normal, external ear normal, canal normal, and TM normal without fluid or infection Nose: External nose appears normal and See procedure note. Oral: normal teeth, normal lips, normal gums, normal hard palate, normal anterior tongue, and oral mucosa moist Oropharynx: normal-appearing mucosa, no pharyngitis, no exudate, tonsils surgically absent, and normal soft palate and uvula Nasopharynx: See procedure note., Hypopharynx: See procedure note., Larynx: See procedure note. TMJ: no pain, crepitus, or trismus Neck:normal, supple, no adenopathy, thyroid normal in size, no nodules or tenderness, and no neck masses palpable Heart: Regular rate Respiration: No stridor, Normal respiratory effort. Neurologic: Grossly normal Alert Oriented X 3 Affect normal Cranial nerves 2 -12 grossly intact Procedure Note: Flexible Laryngoscopy Pre-operative Diagnosis: chronic throat pain x1 year, odynophagia Post-operative Diagnosis: same Clinician: Tiesha Rai PA-C Anesthesia: Oxymetazoline and 4% Lidocaine Endoscopy Type: Flexible Laryngoscopy Procedure Details: The patient was placed in the sitting position. After topical anesthesia and decongestant applied, a flexible laryngoscope was passed. The nasal cavities, nasopharynx, oropharynx, hypopharynx, and larynx were all examined. Vocal cords were examined during respiration and phonation. The following findings were noted: Findings: Bilateral nares patent. Bilateral nasal cavity without lesions or masses, copious clear rhinorrhea slight deviation of nasal septum. Nasopharynx with prominent adenoid tissue. Bilateral eustachian tube orifices patent. Base of tongue slightly prominent with some asymmetry, vallecula, epiglottis, ae folds, and bilateral piriform sinuses are within normal limits. Arytenoids, interarytenoid and postcricoid region are mildly erythematous. Bilateral vocal cords were mobile and symmetric without masses or lesions. Condition: The procedure was and tolerated well. Complications: None ASSESSMENT/PLAN: Charis was seen today for sore throat. Diagnoses and all orders for this visit: Chronic throat pain Odynophagia Adenoid hypertrophy Suspect GERD/LPR Right BOT lesion, possible papilloma vs. other Plan: Charis Allen was seen for evaluation of chronic throat pain x1 year. She has previously undergone adenotonsillectomy. Flexible laryngoscopy was completed, prominent adenoid tissue noted in the nasopharynx, slight prominence of the base of tongue with mild asymmetry and right [id number] lesion, possible papilloma versus other, erythema of the postcricoid region. The following recommendations were advised: CT neck ordered for further evaluation due to prominent base of tongue tissue with asymmetry. There were findings on exam, which may be suggestive of GERD/LPR. Discussed GERD/LPR, further detailed information provided in patient's AVS. Discussed with Dr. Jennings, if patient fails reflux guidelines, consider referral to GI. Return for re-evaluation with an ENT physician, to discuss possible biopsy.. All questions and concerns were addressed, pt agrees to this plan. Provider Statement: Gregg RAI PA-C personally performed the services described in the documentation as described by the above named scribe in my presence. It is both accurate and complete at the time of final signature. Tiesha Rai PA-C Counseling: The following elements of medical decision making were considered during this visit: History and physical. The patient was counseled regarding prognosis, risks and benefits of treatment options, impressions, importance of compliance with treatment and risk factor reductions. The patient verbalized understanding and agreement to the plan. Please note that parts of this chart were generated using voice recognition [employer] dictation software. Although every effort was made to ensure the accuracy of this automated agent ticketing gate, some errors in agent ticketing gate may have occurred. Tiesha Rai PA-C 07/03/24 1707 Tiesha Rai PA-C 07/03/24 1719 documented in this encounter [facility] 07-03-2024 Instructions Tiesha Rai PA-C - 07/03/2024 10:45 AM EDT Laryngopharyngeal Reflux (LPR) and Gastroesophageal Reflux Disease (GERD) What is the difference between LPR and GERD? Reflux is the reverse flow of stomach acid into the esophagus. This acid sometimes spills into the larynx from the esophagus. There are two different kinds of acid reflux: gastroesophageal reflux (GERD) and laryngopharyngeal reflux (LPR). A person can have one or both kinds of reflux. GERD occurs when stomach acid flows up from the stomach into the esophagus. GERD usually occurs at night when people are laying down. Symptoms may include: heartburn, belching, regurgitation or stomach contents, and swallow difficulties. LPR occurs when stomach acid travels up through the esophagus and spills into the larynx (voice box) or pharynx (throat). LPR can occur during the day or at night. There are two esophageal sphincters that prevent reflux from entering the throat. One is at the bottom of the esophagus and one is at the top. In LPR, these sphincters do not work appropriately, allowing acid to sometimes travel upwards and irritate the vocal folds and surrounding tissues. Symptoms may include: hoarseness, excessive mucus (throat clearing), post-nasal drip, coughing, throat soreness or burning, choking episodes (can wake a person up out of a sound sleep), difficulty swallowing, feeling of a lump in the throat, sinusitis-like symptoms, asthma-like symptoms, and bad breath. Why don t I have heartburn if I have LPR? Even though patients with LPR have GERD, most patients with LPR do not actually experience heartburn. This is likely due to acid moving quickly up through the esophagus, thereby not staying in the esophagus long enough to result in heartburn. The esophagus and stomach are better able to tolerate exposure to stomach acid than the throat, which becomes very irritated and inflamed when exposed. This irritation leads to the common symptoms of LPR and can result in laryngeal changes, which can often be seen on exam by an ENT surgeon. How do you diagnose LPR? The diagnostic process always begins with a full ENT evaluation to look for the common signs of LPR in the throat. This may include a simple endoscopy procedure performed in the office. After this initial evaluation, there are two methods to confirm diagnosis. The first (and most common) method is a therapeutic trial of a medication to reduce the production of stomach acid. The second method is a 24 hour pH probe. This is a test in which a catheter is placed through the nose into the stomach to measure acid levels at various points in the esophagus and throat for 24 hours. What is the treatment for LPR? The treatment for LPR usually consists of a combination of taking a medication and modifying one s diet and lifestyle. Reflux Medication: You will usually be prescribed a medication called a proton pump inhibitor (PPI). These include Omeprazole, Nexium, Prevacid, Protonix, Aciphex, and Prilosec. These medications are the most potent acid-reducers available. It is critically important that the pill be taken 30-45 minutes before breakfast on an empty stomach. You must eat something at the 30-45 minute interval. Taking the medication in a different way reduces its efficacy. Some patients may require twice a day dosing because the once a day dosing does not completely control their symptoms. With twice a day dosing, take the second dose 30-45 minutes before dinner. Behavioral Changes: 1. Reduce the stress in your life as much as possible. Psychological stress increases the stomach s production of acid. 2. Try to stop smoking. Tobacco use dramatically increases the production of acid. 3. Change your mealtime habits. Eat small rather than large meals during the day. Do not eat 2-3 hours before going to bed. 4. Maintain a healthy weight. Extra weight around the abdomen increases the pressure on the stomach and predisposes to reflux. 5. Do not wear tight clothing around the waist for the same reason as above. 6. Sleep with the head of your bed elevated 4-8 inches. This may be accomplished by sleeping in a recliner chair or by placing a brick or phone books under the legs at the head of your bed. The use of extra pillows is not helpful, as it may actually increase reflux by kinking your body and increasing pressure on your stomach. When should I notice an improvement with therapy? The most important thing to know about LPR therapy is that it may take 6-8 weeks to notice an effect. Treatment measures reduce the continued exposure to acid and allow the tissue of the throat to heal on its own. The treatment does not actually heal the throat directly. Should I see a fire warden (stomach specialist)? (GI) At some point, you may be referred to a fire warden, either for help with diagnosis or to make sure you do not have any other complications from reflux. This decision is individualized for each patient. Please keep in mind that there is some controversy/disagreement about LPR between our two specialties. Some gastroenterologists may even tell you that you do not have reflux and this may be true. It may require 6-8 weeks of treatment and testing to confirm the diagnosis. If your symptoms persist, other diagnoses will be considered and further testing will be performed. Dietary Changes: Dietary changes are an important part of reflux management. If you take your medication but do not change what you eat, the treatment will be less effective. In brief, try to reduce or avoid the following: spicy foods, acidic foods (tomato, citrus, cranberry), fatty foods, caffeine (coffee, tea, soda), carbonated beverages, alcohol, chocolate, mints, and chewing gum. All these types of food increase acid production. The following is a food guide to help you incorporate dietary modifications. Food Group Foods Allowed Foods to Avoid Dairy Products Skim mild, low-fat buttermilk, low-fat cottage cheese (1% or 2% milk fat), and cheeses made with part skim milk Whole milk, chocolate milk, cream, half and half, whole milk cheeses, and hot cocoa. Meats & Protein Alternatives Baked, boiled, broiled, stewed or roasted: beef, guzman, veal, fish, poultry; dried beans, peas or lentils (if tolerated) Fried or fatty meats: pork, quinonez, sausage, meat of fish packed in oil, luncheon meats, peanut butter, and frankfurters Eggs Prepared any way without added fat. Egg whites as desired. Limit to one whole egg a day. Vegetables Any (other than tomato-based products) prepared without added fat. Avoid tomato-based products. Fruit All except citrus. Avoid citrus. Breads Commercial whole grain or enriched bread, Dominican bread, hamburger buns, hard or plain rolls, saltines, vanessa crackers, jose toast, Iranian muffins and bagels. Homemade biscuits, muffins, waffles, and pancakes. Commercial donuts and pastries. Cereals All cereals, hot or cold. All are fine. Potatoes & Substitutes Potatoes, rice, noodles, spaghetti and macaroni. Fried potatoes or rice. Anything prepared with cheese or white sauces. Fats Butter, margarine, vegetable oils, mayonnaise, brown gravy and reduced calorie/mildly seasoned salad dressing. Lard, quinonez drippings, salt pork, meat drippings, regular gravies and salad dressing Beverages Water, flavored water, herbal tea, low fat milk (1%, 2%, or skim) and non-acidic juices. Caffeinated coffee or tea, citrus juice (orange, grapefruit, lemonade, cranberry), caffeinated beverages, milkshakes, carbonated beverages, and alcohol. Soups Consomm , fat-free broth, bouillon, packaged/dehydrated soup, and soups made with skim milk. Commercial cream soups (those made with whole milk, cream, or added fat). Desserts/Sweets Ice cream (not made with cream or whole milk), sherbet, fruit ices, fruit whips prepared with skim milk, meringues, celia food cake, gelatin, jelly, jam, preserves, sugar, syrup, and honey. Ice cream (made with cream or whole milk), commercial pies, cakes, cookies, and puddings made with whole milk. Any dessert containing chocolate, nuts, cream, coconut, or whole milk Seasonings & cough drops Mild seasonings. Hard candies. Hot or spicy seasonings. Cough drops that contain menthol or are mint/peppermint flavor. Handout information adapted from/provided by [facility]. documented in this encounter [facility] 06-17-2024 Miscellaneous Notes Pt lm for refill of concerta [facility] [place] documented in this encounter [facility] 06-17-2024 Telephone encounter Note Pt lm for refill of concerta [place] [place] [facility] 05-21-2024 History and physical note PRE-ADMISSION TESTING HISTORY AND PHYSICAL: EXAM DATE: 05/21/24 CC: Intermittent right ear pain and drainage HISTORY OF PRESENT ILLNESS: Charis Allen is a 23 y.o. female who presents with intermittent right ear pain and drainage. She reports having a permanent tube placed in this ear in 2017. The plan is to remove this tube and then have a paper ear patch placed. She denies chest pain, dyspnea, recent illness or fever. PAST MEDICAL HISTORY: Past Medical History: Diagnosis Date Cerebellar tonsillar ectopia ([facility]) Concussion Multiple Dizziness Dysfunction of both eustachian tubes Head injury 2010 With LOC Headache History of chicken pox 2012 HL (hearing loss) PAST SURGICAL HISTORY: Past Surgical History: Procedure Laterality Date ADENOIDECTOMY Bilateral 11/02/2017 Performed by Karthikeyan Lopez MD at [facility] APPENDECTOMY 2016 CRANIOTOMY CHIARI DECOMPRESSION / N/A 01/27/2023 Performed by Ajay Barbosa MD at [facility] CYSTOSCOPY RETROGRADE PYELOGRAM Bilateral 11/30/2022 Performed by Margot Hernandez MD at [facility] DILATION AND CURETTAGE OF UTERUS 07/31/2023 EUSTACHIAN TUBE DILATION Bilateral 11/02/2017 Performed by Karthikeyan Lopez MD at [facility] POSTERIOR LAMINECTOMY CERVICAL SINGLE LEVEL / C1 N/A 01/27/2023 Performed by Ajay Barbosa MD at [facility] TONSILLECTOMY TYMPANOSTOMY TUBE PLACEMENT TYMPANOTOMY WITH PERMANENET VENT TUBE INSERTION. TYMPANOTOMY WITH NONPERMANENT TUBE IN LEFT EAR Bilateral 11/02/2017 Performed by Karthikeyan Lopez MD at [facility] FAMILY HISTORY: Family History Problem Relation Age of Onset Asthma Mother Back Problems Father Heart disease Maternal Grandmother Heart disease Maternal Grandfather Hypertension Paternal Grandmother Thyroid disease Paternal Grandmother Breast cancer Paternal Grandmother Cancer Paternal Grandfather Anesthesia problems Neg Hx Bleeding Disorder Neg Hx Clotting disorder Neg Hx Ovarian cancer Neg Hx Colon cancer Neg Hx Diabetes Neg Hx Stroke Neg Hx SOCIAL HISTORY: Social History Socioeconomic History Marital status: Single Spouse name: Not on file Number of children: Not on file Years of education: Not on file Highest education level: Not on file Occupational History Not on file Tobacco Use Smoking status: Never Smokeless tobacco: Never Vaping Use Vaping status: Never Used Substance and Sexual Activity Alcohol use: No Drug use: No Sexual activity: Defer Other Topics Concern Not on file Social History Narrative Lives alone. 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 of Health Financial Resource Strain: Patient Declined (11/12/2023) [facility] Overall Financial Resource Strain (CARDIA) Difficulty of Paying Living Expenses: Patient declined Food Insecurity: No Food Insecurity (05/21/2024) Hunger Screening Food Insecurity - Worry: Never True Food Insecurity - Inability: Never True Transportation Needs: Patient Declined (11/12/2023) Re[facility] - Transportation Lack of Transportation (Medical): Patient declined Lack of Transportation (Non-Medical): Patient declined Physical Activity: Patient Declined (11/12/2023) Re[facility] Exercise Vital Sign Days of Exercise per Week: Patient declined Minutes of Exercise per Session: Patient declined Stress: Not on file Social Connections: Unknown (11/12/2023) Received from [facility] Social Connection and Isolation Panel [NHANES] Frequency of Communication with Friends and Family: Patient declined Frequency of Social Gatherings with Friends and Family: Patient declined Attends Tenriism Services: Not on file Active Member of Clubs or Organizations: Patient declined Attends Club or Organization Meetings: Patient declined Marital Status: Patient declined Interpersonal Safety: Patient Declined (11/12/2023) Received from [facility] [employer], [facility] Humiliation, Afraid, Rape, and Kick questionnaire Fear of Current or Ex-Partner: Patient declined Emotionally Abused: Patient declined Physically Abused: Patient declined Sexually Abused: Patient declined Housing Instability: Not on file ALLERGIES: Allergies Allergen Reactions Seasonale (91) [Levonorgestrel-Ethinyl Estrad] Other (See Comments) Patient not sure Doxycycline Dizziness Penicillin G Sodium Rash MEDICATIONS: Current Outpatient Medications: clindamycin (CLEOCIN T) 1 % lotion, Apply 1 application. topically in the morning., Disp: , Rfl: methylphenidate HCl (CONCERTA) 18 mg CR tablet, Take 1 tablet (18 mg total) by mouth every morning., Disp: , Rfl: clotrimazole-betamethasone (LOTRISONE) cream, Apply 1 Application topically in the morning and 1 Application before bedtime. Apply to external auditory canals twice daily for 1 week then twice weekly thereafter.., Disp: 30 g, Rfl: 3 ondansetron ODT (ZOFRAN ODT) 4 mg disintegrating tablet, Dissolve 1 tablet (4 mg total) on tongue every 8 (eight) hours as needed for nausea for up to 10 doses. (Patient not taking: Reported on 12/19/2023), Disp: 10 tablet, Rfl: 0 tiZANidine (ZANAFLEX) 4 mg tablet, Take 1 tablet (4 mg total) by mouth every 6 (six) hours as needed for muscle spasms., Disp: 30 tablet, Rfl: 0 tretinoin (RETIN-A) 0.1 % cream, Apply 1 Application topically in the morning., Disp: , Rfl: REVIEW OF SYSTEMS: Review of Systems Constitutional: Negative for fever. HENT: Positive for ear discharge and ear pain. Negative for hearing loss, rhinorrhea and sore throat. Eyes: Negative for visual disturbance. Respiratory: Negative for cough, chest tightness and shortness of breath. Cardiovascular: Negative for chest pain, leg swelling and chest discomfort. Gastrointestinal: Negative for nausea, vomiting, abdominal pain, diarrhea, constipation and abdominal distention. Genitourinary: Negative for dysuria, hematuria and difficulty urinating. Musculoskeletal: Negative for myalgias, back pain, arthralgias and neck pain. Skin: Negative for rash and wound. Neurological: Negative for dizziness, seizures and headaches. Hematological: Does not bruise/bleed easily. Psychiatric/Behavioral: Negative for agitation, behavioral problems and confusion. VITAL SIGNS: BP 108/67 Pulse 83 Temp 36.8 C (98.2 F) (Temporal) Resp 18 Ht 170.2 cm (5' 7 ) Wt 70.4 kg (155 lb 3.3 oz) LMP 05/06/2024 (Approximate) SpO2 100% BMI 24.31 kg/m Lab Results Component Value Date WBC 5.6 09/23/2023 HGB 14.0 09/23/2023 HCT 41.7 09/23/2023 PLT 216 09/23/2023 ALT 27 08/16/2023 AST 23 08/16/2023 SODIUM 135 09/23/2023 K 3.5 09/23/2023 CL 102 09/23/2023 CREATININE 0.75 09/23/2023 BUN 13 09/23/2023 CO2 25 09/23/2023 INR 1.1 08/16/2023 GLU 93 09/23/2023 Please note that labs listed above in this note are the most recent lab values available in [facility] at the time of the office visit, and additional labs may have been drawn since that time. PHYSICAL EXAM: Physical Exam Vitals reviewed. Constitutional: General: She is not in acute distress. Appearance: She is well-developed. HENT: Head: Normocephalic and atraumatic. Right Ear: External ear normal. Left Ear: External ear normal. Nose: No rhinorrhea. Mouth/Throat: Mouth: Mucous membranes are moist. Eyes: General: No scleral icterus. Cardiovascular: Rate and Rhythm: Normal rate and regular rhythm. Heart sounds: Normal heart sounds. No murmur heard. Pulmonary: Effort: Pulmonary effort is normal. Breath sounds: Normal breath sounds. No wheezing or rhonchi. Abdominal: General: Bowel sounds are normal. Palpations: Abdomen is soft. Skin: General: Skin is warm and dry. Capillary Refill: Capillary refill takes less than 2 seconds. Neurological: Mental Status: She is alert and oriented to person, place, and time. Psychiatric: Behavior: Behavior normal. IMPRESSION/DIAGNOSIS: Dysfunction of Both Eustachian Tubes PLAN: Charis Allen is a 23 y.o. female scheduled for Removal Tube Ear - Right Application Graft Paper Patch Ear - Right with Dr. Verde on 06/04/2024. JONAS Conte 05/21/24 1354 [facility] 05-21-2024 History and physical note PRE-ADMISSION TESTING HISTORY AND PHYSICAL: EXAM DATE: 05/21/24 CC: Intermittent right ear pain and drainage HISTORY OF PRESENT ILLNESS: Charis Allen is a 23 y.o. female who presents with intermittent right ear pain and drainage. She reports having a permanent tube placed in this ear in 2016. The plan is to remove this tube and then have a paper ear patch placed. She denies chest pain, dyspnea, recent illness or fever. PAST MEDICAL HISTORY: Past Medical History: Diagnosis Date Cerebellar tonsillar ectopia (CMS-HCC) Concussion Multiple Dizziness Dysfunction of both eustachian tubes Head injury 2010 With LOC Headache History of chicken pox 2011 HL (hearing loss) PAST SURGICAL HISTORY: Past Surgical History: Procedure Laterality Date ADENOIDECTOMY Bilateral 11/02/2017 Performed by Karthikeyan Lopez MD at [facility] APPENDECTOMY 2016 CRANIOTOMY CHIARI DECOMPRESSION / N/A 01/27/2023 Performed by Ajay Barbosa MD at [facility] CYSTOSCOPY RETROGRADE PYELOGRAM Bilateral 11/30/2022 Performed by Margot Hernandez MD at [facility] SURGERY DILATION AND CURETTAGE OF UTERUS 07/31/2023 EUSTACHIAN TUBE DILATION Bilateral 11/02/2017 Performed by Karthikeyan Lopez MD at [facility] POSTERIOR LAMINECTOMY CERVICAL SINGLE LEVEL / C1 N/A 01/27/2023 Performed by Ajay Barbosa MD at [facility] TONSILLECTOMY TYMPANOSTOMY TUBE PLACEMENT TYMPANOTOMY WITH PERMANENET VENT TUBE INSERTION. TYMPANOTOMY WITH NONPERMANENT TUBE IN LEFT EAR Bilateral 11/02/2017 Performed by Karthikeyan Lopez MD at [facility] FAMILY HISTORY: Family History Problem Relation Age of Onset Asthma Mother Back Problems Father Heart disease Maternal Grandmother Heart disease Maternal Grandfather Hypertension Paternal Grandmother Thyroid disease Paternal Grandmother Breast cancer Paternal Grandmother Cancer Paternal Grandfather Anesthesia problems Neg Hx Bleeding Disorder Neg Hx Clotting disorder Neg Hx Ovarian cancer Neg Hx Colon cancer Neg Hx Diabetes Neg Hx Stroke Neg Hx SOCIAL HISTORY: Social History Socioeconomic History Marital status: Single Spouse name: Not on file Number of children: Not on file Years of education: Not on file Highest education level: Not on file Occupational History Not on file Tobacco Use Smoking status: Never Smokeless tobacco: Never Vaping Use Vaping status: Never Used Substance and Sexual Activity Alcohol use: No Drug use: No Sexual activity: Defer Other Topics Concern Not on file Social History Narrative Lives alone. 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 of Health Financial Resource Strain: Patient Declined (11/12/2023) Received from [facility] Overall Financial Resource Strain (CARDIA) Difficulty of Paying Living Expenses: Patient declined Food Insecurity: No Food Insecurity (05/21/2024) Hunger Screening Food Insecurity - Worry: Never True Food Insecurity - Inability: Never True Transportation Needs: Patient Declined (11/12/2023) Received from [facility] PRAPARE - Transportation Lack of Transportation (Medical): Patient declined Lack of Transportation (Non-Medical): Patient declined Physical Activity: Patient Declined (11/12/2023) Received from [facility] Exercise Vital Sign Days of Exercise per Week: Patient declined Minutes of Exercise per Session: Patient declined Stress: Not on file Social Connections: Unknown (11/12/2023) Received from [facility] Social Connection and Isolation Panel [NHANES] Frequency of Communication with Friends and Family: Patient declined Frequency of Social Gatherings with Friends and Family: Patient declined Attends Tenriism Services: Not on file Active Member of Clubs or Organizations: Patient declined Attends Club or Organization Meetings: Patient declined Marital Status: Patient declined Interpersonal Safety: Patient Declined (11/12/2023) Received from [facility] Humiliation, Afraid, Rape, and Kick questionnaire Fear of Current or Ex-Partner: Patient declined Emotionally Abused: Patient declined Physically Abused: Patient declined Sexually Abused: Patient declined Housing Instability: Not on file ALLERGIES: Allergies Allergen Reactions Seasonale (91) [Levonorgestrel-Ethinyl Estrad] Other (See Comments) Patient not sure Doxycycline Dizziness Penicillin G Sodium Rash MEDICATIONS: Current Outpatient Medications: clindamycin (CLEOCIN T) 1 % lotion, Apply 1 application. topically in the morning., Disp: , Rfl: methylphenidate HCl (CONCERTA) 18 mg CR tablet, Take 1 tablet (18 mg total) by mouth every morning., Disp: , Rfl: clotrimazole-betamethasone (LOTRISONE) cream, Apply 1 Application topically in the morning and 1 Application before bedtime. Apply to external auditory canals twice daily for 1 week then twice weekly thereafter.., Disp: 30 g, Rfl: 3 ondansetron ODT (ZOFRAN ODT) 4 mg disintegrating tablet, Dissolve 1 tablet (4 mg total) on tongue every 8 (eight) hours as needed for nausea for up to 10 doses. (Patient not taking: Reported on 12/19/2023), Disp: 10 tablet, Rfl: 0 tiZANidine (ZANAFLEX) 4 mg tablet, Take 1 tablet (4 mg total) by mouth every 6 (six) hours as needed for muscle spasms., Disp: 30 tablet, Rfl: 0 tretinoin (RETIN-A) 0.1 % cream, Apply 1 Application topically in the morning., Disp: , Rfl: REVIEW OF SYSTEMS: Review of Systems Constitutional: Negative for fever. HENT: Positive for ear discharge and ear pain. Negative for hearing loss, rhinorrhea and sore throat. Eyes: Negative for visual disturbance. Respiratory: Negative for cough, chest tightness and shortness of breath. Cardiovascular: Negative for chest pain, leg swelling and chest discomfort. Gastrointestinal: Negative for nausea, vomiting, abdominal pain, diarrhea, constipation and abdominal distention. Genitourinary: Negative for dysuria, hematuria and difficulty urinating. Musculoskeletal: Negative for myalgias, back pain, arthralgias and neck pain. Skin: Negative for rash and wound. Neurological: Negative for dizziness, seizures and headaches. Hematological: Does not bruise/bleed easily. Psychiatric/Behavioral: Negative for agitation, behavioral problems and confusion. VITAL SIGNS: BP 108/67 Pulse 83 Temp 36.8 C (98.2 F) (Temporal) Resp 18 Ht 170.2 cm (5' 7 ) Wt 70.4 kg (155 lb 3.3 oz) LMP 05/06/2024 (Approximate) SpO2 100% BMI 24.31 kg/m Lab Results Component Value Date WBC 5.6 09/23/2023 HGB 14.0 09/23/2023 HCT 41.7 09/23/2023 PLT 216 09/23/2023 ALT 27 08/16/2023 AST 23 08/16/2023 SODIUM 135 09/23/2023 K 3.5 09/23/2023 CL 102 09/23/2023 CREATININE 0.75 09/23/2023 BUN 13 09/23/2023 CO2 25 09/23/2023 INR 1.1 08/16/2023 GLU 93 09/23/2023 Please note that labs listed above in this note are the most recent lab values available in [facility] at the time of the office visit, and additional labs may have been drawn since that time. PHYSICAL EXAM: Physical Exam Vitals reviewed. Constitutional: General: She is not in acute distress. Appearance: She is well-developed. HENT: Head: Normocephalic and atraumatic. Right Ear: External ear normal. Left Ear: External ear normal. Nose: No rhinorrhea. Mouth/Throat: Mouth: Mucous membranes are moist. Eyes: General: No scleral icterus. Cardiovascular: Rate and Rhythm: Normal rate and regular rhythm. Heart sounds: Normal heart sounds. No murmur heard. Pulmonary: Effort: Pulmonary effort is normal. Breath sounds: Normal breath sounds. No wheezing or rhonchi. Abdominal: General: Bowel sounds are normal. Palpations: Abdomen is soft. Skin: General: Skin is warm and dry. Capillary Refill: Capillary refill takes less than 2 seconds. Neurological: Mental Status: She is alert and oriented to person, place, and time. Psychiatric: Behavior: Behavior normal. IMPRESSION/DIAGNOSIS: Dysfunction of Both Eustachian Tubes PLAN: Charis Allen is a 23 y.o. female scheduled for Removal Tube Ear - Right Application Graft Paper Patch Ear - Right with Dr. Verde on 06/04/2024. JONAS Conte 05/21/24 1354 [facility] Instructions Di Briscoe RN - 05/21/2024 1:15 PM EDT Your surgery/procedure is scheduled at [facility] on June 04, 2024 at 9:00 am Arrival Time 7:00 am [facility] Address: [address] [place] [address]. [place] [address] Park in [address] Parking lot located on [facility]. Report to the Entrance B. Check in at the information desk the surgery. The waiting room located on the second floor. If you have any questions prior to surgery, please call Pre-Admission Clinic at [phone] between 7:30 am and 4:30 pm Monday through Monday. If you have questions the morning of surgery, please call the Pre-op Department at [phone]. Notify your SURGEON if you develop any illness such as a cold, cough, fever, sore throat, vomiting or are hospitalized between now and your surgery. CONTINUE TO TAKE YOUR MEDICATIONS PRESCRIBED. DO NOT STOP YOUR PRESCRIBED MEDICATIONS UNLESS DIRECTED BY YOUR PRESCRIBING PHYSICIAN Take the following medications the morning of surgery with a sip of water: none Diabetic or weight loss medications: n/a Take inhalers as prescribed the morning of surgery. . Blood thinners: Medications such as Coumadin, Heparin, Aspirin, Plavix, Eliquis, Pradaxa) Please contact your physician regarding a stop/hold date for these medications. Diabetics: If you take insulin, contact your prescribing doctor for instructions on how to manage this the night before and the morning of surgery. Non-steriodal Anti-Inflammatory Drugs (NSAIDS)- Stop 3 days prior to surgery unless otherwise directed by your surgeon. Vitamins/Herbal Products: You may continue to take your prescribed vitamins such as potassium, iron, vitamin B, vitamin C, or multivitamin unless specifically instructed by your surgeon to stop. STOP taking all herbal products/teas one week prior to your surgery. Marijuana: Stop marijuana 72 hours prior to surgery, stop CBD oil 48 hours prior to surgery. If you have been given bowel prep instructions by your surgeon, please call the surgeon's office with any questions about these instructions. What do I do the day of Surgery? Age 2 through adult - Stop all solids by midnight, You may have clear liquids up to 2 hours before surgery, unless otherwise instructed by your surgeon. Clear liquids are: water, sports drinks such as Gatorade or G2, or apple juice. You may NOT have: tube feedings, dairy products, alcoholic beverages, orange juice, or any liquids with solids or pulp in it. If applicable, shower again with CHG soap the morning of your surgery. If you received a green plastic bracelet, bring it with you the day of surgery and your nurse will put it on you. In order to help prevent infection post-operatively, you may be asked to use a CHG mouthwash when you arrive to the Pre-op area. Your nurse will provide instruction the morning of. What do I need to do to prepare for surgery? If you will be going home the same day as your surgery, arrange for an adult over [address] Riding in a bus or taxi by yourself is not permitted. You should not smoke or drink alcohol 24 hours before your surgery. Alcohol thins the blood and may cause bleeding problems during surgery. Smoking increases the risk of breathing problems after surgery. Do not use lotions, creams, powders, perfume, make up, cologne or after-shaves day of surgery. Remove ALL jewelry including wedding rings, body piercings (including dermal piercings ,hair extensions that contain metal, nail irish, make-up, and contact lens. You may brush your teeth the morning of surgery, but do not swallow the water. Wear your dentures and partial plates to the hospital (no adhesive). Shower the night the before. If applicable, use the CHG (chlorhexidine gluconate) soap or wipes What should I bring to the hospital? If you received a green plastic bracelet, bring it with you the day of surgery and your nurse will put it on you. Eyeglass or contact lens case If you will be spending the night, please bring personal care items and leave them in the car until you are taken to your room after surgery. Leave ALL valuables at home. If any of these instructions conflict with those you received from the surgeon, please seek clarification from your surgeon's office. DEEP BREATHING EXERCISES This exercise helps promote good air exchange and helps to prevent pneumonia after surgery. Breathe in slowly and deeply through the nose. Hold your breath for a few seconds and then exhale slowly through the mouth. Repeat this three times and then cough.Coughing helps to clear your lungs. If you have had a surgery with an incision into your abdomen or chest, press gently against your incision with a pillow or a folded blanket when you cough. Please be aware - it may not be berumen to cough following some types of surgeries involving the eyes, ears, sinuses and throat. Always follow your doctor's instructions. LEG EXERCISE These exercises help promote good circulation and help to prevent blood clots after surgery. Point your toes to the ceiling and then point them to the wall. Do this slowly about 15-20 times. You may also move your feet in circles. Do the exercise that is most comfortable for you. If you have had surgery involving your shoulder or arm, we recommend you move your fingers. PRACTICING We ask that you begin practicing these exercises before your surgery. After surgery try to do both exercises at least every 2 hours during the day and early evening. SURGICAL SITE INFECTION PREVENTION What is a Surgical Site Infection? Infection can happen to the area of the body where surgery is done. This is called a surgical site infection (SSI). A SSI does not happen very often. Can SSIs be treated? Antibiotics are used to treat SSI. Some patients may need another surgery to treat the infection. The doctor will discuss treatment options with you. What are some of the things that hospitals are doing to prevent SSIs? Soap and water or alcohol hand rub are used before and after caring for each patient. Special soap is used to clean surgery workers hands and arms just before the surgery. Masks, gowns, gloves and hair covers are worn during the surgery to keep the area clean. Hair in the surgery area may be removed with clippers (not razors). A special soap that kills germs is used to clean the skin at the surgery site. Antibiotics may be given before the surgery starts. What can you do to prevent SSIs? Before surgery: You may be asked to shower or bathe with a special soap that kills germs the night before and the day of surgery. Use the soap as you were told. If you smoke, stop or cut down. Ask your doctor about ways to quit. Do not shave near where you will have surgery. Shaving can irritate the skin and make it easier to get and infection. After surgery: Be sure that the doctors and nurses clean their hands before and after touching you. Be sure your family and friends clean their hands before and after visiting you. Do not be afraid to remind them. * Care for your wound at home as told by your doctor or nurse * Call your doctor right away if you have fever, redness, increased pain, or drainage at the surgery site. Further questions? Contact the doctor, nurse or the Infection Prevention and Control department if you have any questions. PATIENT RIGHTS AND RESPONSIBILITIES As a patient at [facility], you have the right to: Receive medical care and be informed of who is taking care of you Be treated with dignity and respect Have a family member/asset protection representative of choice and your physician notified of your admission Receive information and actively participate in decisions about your care and treatment Refuse care, treatment and services Decide who may provide your support and speak for you Access moravian and spiritual services Participate in ethical issues and questions about your care Receive private and confidential care Have appropriate assessment and management of your pain Know guest visitation restrictions or limitations Have an advance directive Access protective services Consent or refuse to participate in research studies or production or recordings, films or other images Have resolution of your complaints Receive information of hospital charges and payment methods Patient/patient asset protection representative responsibilities are to: Provide information about health status to facilitate care, treatment and services Follow the treatment, plan, keep appointments and speak up when you do not understand the plan Respect the rights of other patients and healthcare personnel Follow organizational rules and regulations that support quality care and a safe environment Fulfill financial obligations as promptly as possible documented in this encounter [facility] 03-18-2024 History of Present illness Narrative Patient ID: Charis Allen is a 23 y.o. female. Chief Complaint: Chief Complaint Patient presents with Earache History: Charis Allen is a pleasant 23 y.o. female who presents today for otitis media. She was last seen in clinic on 03/06/2024 by Tiesha Rai PA-C, ENT. Patient reports experience otalgia, otorrhea, pruritus, and foul odor of the right ear which occurs after routine cleanings. Patient endorses a history of recurrent swimmer's ear and PE tubes as a child. She admits to intermittent hearing loss, loud noise exposure, and . She denies dizziness and family history of ear problems. Permanent tube placement which was [place] [address] Lopez. She reports experience irritation after routine cleanings. Past History: The following portions of the patient's history were reviewed and updated as appropriate: MEDICATIONS Current Outpatient Medications: methylphenidate HCl (CONCERTA) 18 mg CR tablet, Take 1 tablet (18 mg total) by mouth every morning., Disp: , Rfl: clindamycin (CLEOCIN T) 1 % lotion, Apply 1 application. topically in the morning., Disp: , Rfl: clotrimazole-betamethasone (LOTRISONE) cream, Apply 1 Application topically in the morning and 1 Application before bedtime. Apply to external auditory canals twice daily for 1 week then twice weekly thereafter.., Disp: 30 g, Rfl: 3 ondansetron ODT (ZOFRAN ODT) 4 mg disintegrating tablet, Dissolve 1 tablet (4 mg total) on tongue every 8 (eight) hours as needed for nausea for up to 10 doses. (Patient not taking: Reported on 12/19/2023), Disp: 10 tablet, Rfl: 0 tiZANidine (ZANAFLEX) 4 mg tablet, Take 1 tablet (4 mg total) by mouth every 6 (six) hours as needed for muscle spasms., Disp: 30 tablet, Rfl: 0 tretinoin (RETIN-A) 0.1 % cream, Apply 1 Application topically in the morning., Disp: , Rfl: ALLERGIES Seasonale (91) [levonorgestrel-ethinyl estrad], Doxycycline, and Penicillin g sodium PAST MEDICAL HISTORY Past Medical History: Diagnosis Date Cerebellar tonsillar ectopia (CMS-HCC) Concussion multiple Dizziness Head injury loc 2010 Headache History of chicken pox age 11 Visual impairment Blurred PAST SURGICAL HISTORY Past Surgical History: Procedure Laterality Date ADENOIDECTOMY Bilateral 11/02/2017 Performed by Karthikeyan Lopez MD at [facility] APPENDECTOMY age 15 CRANIOTOMY CHIARI DECOMPRESSION / N/A 01/27/2023 Performed by Ajay Barbosa MD at [facility] CYSTOSCOPY RETROGRADE PYELOGRAM Bilateral 11/30/2022 Performed by Margot Hernandez MD at [facility] SURGERY DILATION AND CURETTAGE OF UTERUS 07/31/2023 EUSTACHIAN TUBE DILATION Bilateral 11/02/2017 Performed by Karthikeyan Lopez MD at [facility] POSTERIOR LAMINECTOMY CERVICAL SINGLE LEVEL / C1 N/A 01/27/2023 Performed by Ajay Barbosa MD at [facility] TONSILLECTOMY TYMPANOSTOMY TUBE PLACEMENT TYMPANOTOMY WITH PERMANENET VENT TUBE INSERTION. TYMPANOTOMY WITH NONPERMANENT TUBE IN LEFT EAR Bilateral 11/02/2017 Performed by Karthikeyan Lopez MD at [facility] SOCIAL HISTORY Social History Tobacco Use Smoking status: Never Smokeless tobacco: Never Vaping Use Vaping status: Never Used Substance Use Topics Alcohol use: No Drug use: No FAMILY HISTORY Family History Problem Relation Age of Onset Asthma Mother Back Problems Father Heart disease Maternal Grandmother Heart disease Maternal Grandfather Hypertension Paternal Grandmother Thyroid disease Paternal Grandmother Breast cancer Paternal Grandmother Cancer Paternal Grandfather Anesthesia problems Neg Hx Bleeding Disorder Neg Hx Clotting disorder Neg Hx Ovarian cancer Neg Hx Colon cancer Neg Hx Diabetes Neg Hx Stroke Neg Hx REVIEW OF SYSTEMS Review of Systems Constitutional: Negative for fever and chills. HENT: Positive for ear pain. Negative for ear discharge. Eyes: Negative for visual disturbance. Respiratory: Negative for cough and shortness of breath. Cardiovascular: Negative for chest pain and chest discomfort. Gastrointestinal: Negative for nausea and vomiting. Endocrine: Negative for cold intolerance and heat intolerance. Genitourinary: Negative for difficulty urinating. Musculoskeletal: Negative for neck pain and neck stiffness. Skin: Negative for rash. Allergic/Immunologic: Negative for food allergies. Neurological: Negative for seizures. Hematological: Does not bruise/bleed easily. Psychiatric/Behavioral: Negative for behavioral problems. Data Review: Physicial Exam: Temp 36.9 C (98.4 F) Ht 170.2 cm (5' 7 ) Wt 69.9 kg (154 lb) BMI 24.12 kg/m Constitution: Patient appears healthy, alert, oriented, with their usual voice, communication, and affect Head and Face: Normocephalic and Atraumatic. Facial nerve function normal Eyes: No Strabismus and EOM normal Ear: external ear normal, canal normal, TM normal without fluid or infection, and Ear tube in with associated edema and erythema. Nose and Nasal Cavity: The external appearance, nasal mucosa, septum, and turbinates are unremarkable without drainage or lesion Oral Cavity: The lips, gums and teeth are unremarkable without mass or lesion. Neck: No asymmetry or mass, thyroid normal, no lymphadenopathy. Salivary glands normal. Cranial Nerves: Cranial nerves intact Procedure: Microscopic Examination Pre Op Diagnosis: Recurrent Otitis Post Op Diagnosis: Same Procedure: Otologic Microscopic Examination Surgeon: Mich Verde MD Consent: Verbal Consent was obtained prior to the procedure. Anesthesia: None Complications: none Procedure: In a reclined position, using an otologic microscope, the examination was performed. Findings: See the findings recorded under the physical examination. Assessment Impression: Recurrent right-sided otitis due to PE tube. Discussed surgical removal in surgery. Plan: - Patient prefers to have right tube surgically removed. We discussed the chances of perforation remaining from PE tube, which may resolve with paper patch placement. Indications, risks, benefits, and possible complications were discussed. - Continue to initiate ear drops; Ciprodex sent to pharmacy. - Follow-up post op. Visit Diagnosis and Orders: Charis was seen today for earache. Diagnoses and all orders for this visit: Dysfunction of both eustachian tubes Hearing loss of right ear, unspecified hearing loss type Otomycosis- right ear Dysfunction of right eustachian tube Acute right otitis media Scribe Statement Scribed for and in the presence of MICH VERDE MD by [employer]. Provider Statement I MICH VERDE MD personally performed the services described in the documentation as described by the above named scribe. It is both accurate and complete at the time of final signature. Jennifer Martin MA 03/18/24 1424 documented in this encounter [facility] [employer] [facility] 03-18-2024 Instructions Linette Gurrola - 03/18/2024 2:30 PM EDT - Patient prefers to have right tube surgically removed. We discussed the chances of perforation remaining from PE tube, which may resolve with paper patch placement. Indications, risks, benefits, and possible complications were discussed. - Continue to initiate ear drops; Ciprodex sent to pharmacy. - Follow-up post op. [facility]-06-2024 History of Present illness [facility]ative [facility] [address] [place] [address] SUBJECTIVE: Patient ID ([id number]): Charis Allen is a 23 y.o. female presents today for Chief Complaint Patient presents with Ear Problem HPI: Charis is seen in follow-up today on right chronic otomycosis. She was last seen on 12/19/2023. She complains of severe itching of the right ear and drainage. She is using Lotrisone cream with little relief. She uses an ear plug when showering. She denies new onset tinnitus, changes in hearing or dizziness. HISTORY: Past Medical History: Diagnosis Date Cerebellar tonsillar ectopia ([facility]) Concussion multiple Dizziness Head injury loc 2011 Headache History of chicken pox age 11 Visual impairment Blurred Past Surgical History: Procedure Laterality Date ADENOIDECTOMY Bilateral 11/02/2017 Performed by Karthikeyan Lopez MD at [facility] APPENDECTOMY age 15 CRANIOTOMY CHIARI DECOMPRESSION / N/A 01/27/2023 Performed by Ajay Barbosa MD at [facility] CYSTOSCOPY RETROGRADE PYELOGRAM Bilateral 11/30/2022 Performed by Margot Hernandez MD at [facility] SURGERY DILATION AND CURETTAGE OF UTERUS 07/31/2023 EUSTACHIAN TUBE DILATION Bilateral 11/02/2017 Performed by Karthikeyan Lopez MD at [facility] POSTERIOR LAMINECTOMY CERVICAL SINGLE LEVEL / C1 N/A 01/27/2023 Performed by Ajay Barbosa MD at [facility] TONSILLECTOMY TYMPANOSTOMY TUBE PLACEMENT TYMPANOTOMY WITH PERMANENET VENT TUBE INSERTION. TYMPANOTOMY WITH NONPERMANENT TUBE IN LEFT EAR Bilateral 11/02/2017 Performed by Karthikeyan Lopez MD at [facility] Family History Problem Relation Age of Onset Asthma Mother Back Problems Father Heart disease Maternal Grandmother Heart disease Maternal Grandfather Hypertension Paternal Grandmother Thyroid disease Paternal Grandmother Breast cancer Paternal Grandmother Cancer Paternal Grandfather Anesthesia problems Neg Hx Bleeding Disorder Neg Hx Clotting disorder Neg Hx Ovarian cancer Neg Hx Colon cancer Neg Hx Diabetes Neg Hx Stroke Neg Hx Social History Socioeconomic History Marital status: Single Spouse name: Not on file Number of children: Not on file Years of education: Not on file Highest education level: Not on file Occupational History Not on file Tobacco Use Smoking status: Never Smokeless tobacco: Never Vaping Use Vaping status: Never Used Substance and Sexual Activity Alcohol use: No Drug use: No Sexual activity: Defer Other Topics Concern Not on file Social History Narrative Lives alone. 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 of Health Financial Resource Strain: Patient Declined (11/12/2023) Received from [facility] Overall Financial Resource Strain (CARDIA) Difficulty of Paying Living Expenses: Patient declined Food Insecurity: Patient Declined (11/12/2023) Received from [facility] Hunger Vital Sign Worried About Running Out of Food in the Last Year: Patient declined Ran Out of Food in the Last Year: Patient declined Transportation Needs: Patient Declined (11/12/2023) Received from [facility] PRAPARE - Transportation Lack of Transportation (Medical): Patient declined Lack of Transportation (Non-Medical): Patient declined Physical Activity: Patient Declined (11/12/2023) Received from [facility] Exercise Vital Sign Days of Exercise per Week: Patient declined Minutes of Exercise per Session: Patient declined Stress: Not on file Social Connections: Unknown (11/12/2023) Received from [facility] Social Connection and Isolation Panel [NHANES] Frequency of Communication with Friends and Family: Patient declined Frequency of Social Gatherings with Friends and Family: Patient declined Attends Tenriism Services: Not on file Active Member of Clubs or Organizations: Patient declined Attends Club or Organization Meetings: Patient declined Marital Status: Patient declined Interpersonal Safety: Patient Declined (11/12/2023) Received from [facility] Humiliation, Afraid, Rape, and Kick questionnaire Fear of Current or Ex-Partner: Patient declined Emotionally Abused: Patient declined Physically Abused: Patient declined Sexually Abused: Patient declined Housing Instability: Not on file Allergies Allergen Reactions Seasonale (91) [Levonorgestrel-Ethinyl Estrad] Other (See Comments) Patient not sure Doxycycline Dizziness Penicillin G Sodium Rash Current Outpatient Medications Medication Sig Dispense Refill methylphenidate HCl (CONCERTA) 18 mg CR tablet Take 1 tablet (18 mg total) by mouth every morning. Max Daily Amount: 18 mg clindamycin (CLEOCIN T) 1 % lotion Apply 1 application. topically in the morning. clotrimazole-betamethasone (LOTRISONE) cream Apply 1 Application topically in the morning and 1 Application before bedtime. Apply to external auditory canals twice daily for 1 week then twice weekly thereafter.. 30 g 3 ondansetron ODT (ZOFRAN ODT) 4 mg disintegrating tablet Dissolve 1 tablet (4 mg total) on tongue every 8 (eight) hours as needed for nausea for up to 10 doses. (Patient not taking: Reported on 12/19/2023) 10 tablet 0 tiZANidine (ZANAFLEX) 4 mg tablet Take 1 tablet (4 mg total) by mouth every 6 (six) hours as needed for muscle spasms. 30 tablet 0 tretinoin (RETIN-A) 0.1 % cream Apply 1 Application topically in the morning. No current facility-administered medications for this visit. REVIEW OF SYSTEMS: Review of Systems Constitutional: Negative for chills and fever. HENT: Negative for congestion, ear discharge, ear pain, postnasal drip, sinus pressure, sinus pain, sore throat and tinnitus. Eyes: Negative for redness. Respiratory: Negative for shortness of breath. Cardiovascular: Negative for chest pain. Gastrointestinal: Negative for nausea and vomiting. Musculoskeletal: Negative for neck pain. Skin: Negative for rash. Neurological: Negative for dizziness and headaches. Psychiatric/Behavioral: Negative for confusion. Data Reviewed: PHYSICAL EXAMINATION: Temp 37 C (98.6 F) Ht 167.6 cm (5' 6 ) Wt 69.9 kg (154 lb) BMI 24.86 kg/m Constitutional: Healthy, alert, cooperative, and in no distress and normal ablility to communicate . Voice normal quality. Head/Face: Normocephalic, without obvious abnormality, salivary glands normal, atraumatic, sinuses nontender, and facial nerve intact Eyes: No gross abnormalities., EOMI, no nystagmus, and no lid ptosis Ear: RIGHT: hearing normal, external ear normal, and See procedure note. Nose: External nose appears normal Oral: normal lips Heart: Regular rate Respiration: No stridor, Normal respiratory effort. Neurologic: Grossly normal Alert Oriented X 3 Affect normal Cranial nerves 2 -12 grossly intact Microscopic Evaluation of the Ear(s): Pre Op Diagnosis: Right otomycosis Post Op Diagnosis: Same Procedure: Microscopic evaluation of Clinician: Tiesha Rai PA-C Anesthesia: None Complications: none Procedure note: Patient was placed in a seated/supine position. Right ear: wet, yellow, mycotic drainage inferior to the shank of permanent PET tube, lumen is patent. Debris was evacuated using 3F and 5F suction. A cotton swab soaked with acetic acid was used to on the distal EAC skin. Chloromycetin and boric/acid was insufflated into the EAC avoiding the lumen of the tube. Procedure was successful and and tolerated well.. Post operative instructions were given. ASSESSMENT/PLAN: Charis was seen today for ear problem. Diagnoses and all orders for this visit: Dysfunction of both eustachian tubes Otomycosis- right ear Hearing loss of right ear, unspecified hearing loss type Plan: Charis Allen was seen in follow-up on otomycosis. Fungal debris were removed from the right EAC. Boric acid powder was insufflated into the right EAC avoiding the tube, which is in place, patent and dry. Dry ear precautions were discussed. Advised to continue using Lotrisone cream twice daily. Patient would like further consultation for possible removal of right tube. Dr. Verde. Return in 4-6 weeks for recheck. Provider Statement: I TIESHA RAI PA-C personally performed the services described in the documentation as described by the above named scribe in my presence. It is both accurate and complete at the time of final signature. Tiesha Rai PA-C Counseling: The following elements of medical decision making were considered during this visit: Reviewed and summarized previous records and History and physical. The patient was counseled regarding prognosis, risks and benefits of treatment options, impressions, importance of compliance with treatment and risk factor reductions. The patient verbalized understanding and agreement to the plan. Please note that parts of this chart were generated using voice recognition M*Modal dictation software. Although every effort was made to ensure the accuracy of this automated agent ticketing gate, some errors in agent ticketing gate may have occurred. Tiesha Rai PA-C 03/06/24 [id number] documented in this encounter [facility] 02-05-2024 Miscellaneous Notes Called and left voice mail to let patient know she needs to reschedule her appointment for 02/05/24 as provider is out ill documented in this encounter [facility] 02-05-2024 Telephone encounter Note Called and left voice mail to let patient know she needs to reschedule her appointment for 02/05/24 as provider is out ill [facility] 12-26-2023 Instructions Olga Thompson MA - 12/26/2023 5:38 PM EDT POSTOPERATIVE INSTRUCTIONS TOENAIL SURGERY 1. Keep Dressing Dry 2. Rest foot whenever possible. 3. Remove bandage in 2 days. Remove packing. 4. After removing bandage, soak foot in luke warm soapy water,using antibacterial soap or Epsom Salts in warm water for fifteen minutes daily. 5. Cover the surgical site with a Band-Aid and antibiotic ointment or cream (Neosporin, Bacitracin). 6. Take pain medications as prescribed, if needed. 7. If antibiotics are prescribed take them as directed until the whole prescription has been taken. 8. Keep Appointments as scheduled. Special Notes: 1. Drainage and/or redness are to be expected with this procedure, and may continue for about 2 weeks. During this phase, you will be periodically examined for this to ensure normal healing. documented in this encounter [facility] 12-26-2023 Note HNO ID: [id number] Author: ÁNGELA DELGADO DPM Service: ? Author Type: Physician Type: Progress Notes Filed: 12/26/2023 19:40 Note Text: Service Date: December 26, 2023 PCP: No primary care provider on file. Last Podiatry Visit: 11/21/2023 The history is provided by the patient. Patient presents with: Right Foot - Pain: 1st toenail Left Foot - Pain: 1st toenail; Pain is 10/10 with ambulation. Pain is relieved when not standing/walking on feet. Procedure Pt presents today for matrixectomy bilateral hallux bilateral borders. Patient relates she stopped taking the Lamisil due to a particular reaction to the medicine by mouth. Patient relates she occasionally lies topical treatment on her toenails, however not applying antifungal lotion to her feet.. ALLERGIES Allergen Reactions Periactin [Cyprohep* Diarrhea, Other: See Comments Passing out, turning white. Doxycycline Other: See Comments dizziness Penicillin G Sodium Rash Seasonal Allergies Current Outpatient Medications on File Prior to Visit Medication Sig methylphenidate HCl (CONCERTA ORAL) Take 18 mg by mouth once daily. terbinafine HCl (LAMISIL) 250 mg tablet Take 1 tablet by mouth once daily. Sulfacetamide Sodium-Sulfur 10-5 % (w/w) lotn Apply to all acne-prone areas twice daily (Patient not taking: Reported on 11/21/2023) adapalene (DIFFERIN) 0.1 % gel Apply to all acne-prone areas at bedtime. (Patient not taking: Reported on 11/21/2023) pimecrolimus (ELIDEL) 1 % cream APPLY 2 TIMES DAILY TO FACIAL AREAS NEEDED FOR RASH/ITCHING (Patient not taking: Reported on 11/21/2023) No current facility-administered medications on file prior to visit. Review of Systems Constitutional: Negative for chills and fever. Cardiovascular: Negative for leg swelling. Musculoskeletal: Negative for gait problem. Skin: Negative for rash and wound. Neurological: Negative for numbness. Hematological: Does not bruise/bleed easily. Physical Exam Vitals reviewed. Constitutional: Appearance: Normal appearance. 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 Hallux toenails are thickened and dystrophic causing pain with palpation, ingrowing nail both borders and distal aspect of the toe, no s/s of infection Skin: Comments: Bilateral hallux nails thickened dystrophic and ingrown in bilateral borders. Red skin next to the toenail Swelling next to the toenail Tenderness next to the toenail Tenderness of the toenail Nails are thickened and dystrophic. Plantar aspect of both feet are peeling with mild irritation of skin and redness. Neurological: Mental Status: She is alert and oriented to person, place, and time. Psychiatric: Mood and Affect: Mood normal. ASSESSMENT Onychomycosis (primary encounter diagnosis) Ingrown toenail Toe pain, bilateral Tinea pedis, unspecified laterality Return in about 1 week (around 01/02/2024) for post op matrixectomy . TREATMENT - Nail and foot care instructions discussed. - Recommendation of an antifungal cream to skin on feet daily. Medication orders placed this encounter clotrimazole-betamethasone (LOTRISONE) cream Sig: Apply 1 application to affected area two times a day. Dispense: 45 g Refill: 11 The nature and purpose of the operation, possible alternative methods of treatment (including no treatment), the risks involved, and the possibility of complications have been fully explained to the patient. The patient acknowledged that there is no guarantee or assurance as to the results that may be obtained. Conservative therapy has not rendered relief of symptoms patient desires surgical management at this time. 1. Phenol and alcohol matrixectomy bilateral hallux bilateral borders . After an appropriate informed consent discussion with the patient, the left and right hallux were anesthetized using 3 cc of 1% lidocaine with epinephrine 1:600,000. An elevator was used to liberate the offending nail border from the overlying eponychium and underlying nailbed. An Iranian anvil was used to cut the offending nail border down to the nail matrix and the offending nail border was removed with a hemostat. Phenol was applied in the nail border to cauterize the matrix with 3 applications. The area was probed with a blunt instrument and noted to have no remaining nail spicules. The area was irrigated with copious amount of alcohol. A surgical bandage was applied and oral and written home-going instructions were given. 2. Post op appointment scheduled for 1 week. Patient instructed to call if problems arise prior to next visit. UNIVERSAL PROTOCOL / SAFETY CHECKLIST Procedure to be Performed: Matrixectomy Sign In: A Moment of CARE was completed. Personnel directly involved with the procedure wore the appropriate PPE (Personal Protective Equipment). Patient/Surrogate Stated/Verified: PATIENT VERIFIED(optional for EMERG (more content not included)... [facility] 12-26-2023 History of Present illness Narrative Service Date: December 26, 2023 PCP: No primary care provider on file. Last Podiatry Visit: 11/21/2023 The history is provided by the patient. Patient presents with: Right Foot - Pain: 1st toenail Left Foot - Pain: 1st toenail; Pain is 10/10 with ambulation. Pain is relieved when not standing/walking on feet. Procedure Pt presents today for matrixectomy bilateral hallux bilateral borders. Patient relates she stopped taking the Lamisil due to a particular reaction to the medicine by mouth. Patient relates she occasionally lies topical treatment on her toenails, however not applying antifungal lotion to her feet.. ALLERGIES Allergen Reactions Periactin [Cyprohep* Diarrhea, Other: See Comments Passing out, turning white. Doxycycline Other: See Comments dizziness Penicillin G Sodium Rash Seasonal Allergies Current Outpatient Medications on File Prior to Visit Medication Sig methylphenidate HCl (CONCERTA ORAL) Take 18 mg by mouth once daily. terbinafine HCl (LAMISIL) 250 mg tablet Take 1 tablet by mouth once daily. Sulfacetamide Sodium-Sulfur 10-5 % (w/w) lotn Apply to all acne-prone areas twice daily (Patient not taking: Reported on 11/21/2023) adapalene (DIFFERIN) 0.1 % gel Apply to all acne-prone areas at bedtime. (Patient not taking: Reported on 11/21/2023) pimecrolimus (ELIDEL) 1 % cream APPLY 2 TIMES DAILY TO FACIAL AREAS NEEDED FOR RASH/ITCHING (Patient not taking: Reported on 11/21/2023) No current facility-administered medications on file prior to visit. Review of Systems Constitutional: Negative for chills and fever. Cardiovascular: Negative for leg swelling. Musculoskeletal: Negative for gait problem. Skin: Negative for rash and wound. Neurological: Negative for numbness. Hematological: Does not bruise/bleed easily. Physical Exam Vitals reviewed. Constitutional: Appearance: Normal appearance. 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 Hallux toenails are thickened and dystrophic causing pain with palpation, ingrowing nail both borders and distal aspect of the toe, no s/s of infection Skin: Comments: Bilateral hallux nails thickened dystrophic and ingrown in bilateral borders. Red skin next to the toenail Swelling next to the toenail Tenderness next to the toenail Tenderness of the toenail Nails are thickened and dystrophic. Plantar aspect of both feet are peeling with mild irritation of skin and redness. Neurological: Mental Status: She is alert and oriented to person, place, and time. Psychiatric: Mood and Affect: Mood normal. ASSESSMENT Onychomycosis (primary encounter diagnosis) Ingrown toenail Toe pain, bilateral Tinea pedis, unspecified laterality Return in about 1 week (around 01/02/2024) for post op matrixectomy . TREATMENT - Nail and foot care instructions discussed. - Recommendation of an antifungal cream to skin on feet daily. Medication orders placed this encounter clotrimazole-betamethasone (LOTRISONE) cream Sig: Apply 1 application to affected area two times a day. Dispense: 45 g Refill: 11 The nature and purpose of the operation, possible alternative methods of treatment (including no treatment), the risks involved, and the possibility of complications have been fully explained to the patient. The patient acknowledged that there is no guarantee or assurance as to the results that may be obtained. Conservative therapy has not rendered relief of symptoms patient desires surgical management at this time. 1. Phenol and alcohol matrixectomy bilateral hallux bilateral borders . After an appropriate informed consent discussion with the patient, the left and right hallux were anesthetized using 3 cc of 1% lidocaine with epinephrine 1:600,000. An elevator was used to liberate the offending nail border from the overlying eponychium and underlying nailbed. An Iranian anvil was used to cut the offending nail border down to the nail matrix and the offending nail border was removed with a hemostat. Phenol was applied in the nail border to cauterize the matrix with 3 applications. The area was probed with a blunt instrument and noted to have no remaining nail spicules. The area was irrigated with copious amount of alcohol. A surgical bandage was applied and oral and written home-going instructions were given. 2. Post op appointment scheduled for 1 week. Patient instructed to call if problems arise prior to next visit. UNIVERSAL PROTOCOL / SAFETY CHECKLIST Procedure to be Performed: Matrixectomy Sign In: A Moment of CARE was completed. Personnel directly involved with the procedure wore the appropriate PPE (Personal Protective Equipment). Patient/Surrogate Stated/Verified: PATIENT VERIFIED(optional for EMERGENT procedures): Patient name, Date of , Relevant allergies and The intended procedure Time Out Communication: Intended patient and procedure match the source documents. Consent documented and matches the intended procedure. Medications required for procedure verified. Sign Out: SIGN OUT (optional for EMERGENT procedures): No specimen collected. Post-procedure follow-up management communicated and Plan of Care Visit completed when applicable. The documentation for this note was completed by Olga Thompson MA acting as scribe for Ángela Delgado DPM. December 26, 2023 5:33 PM I spent 60 minutes on the date of the service which included preparing to see the patient, [id number] patient care, completing clinical documentation, obtaining and/or reviewing separately obtained history, performing a medically appropriate examination, counseling and educating the patient/family/caregiver, ordering medications, tests, or procedures and care coordination (not separately reported). I agree with the Chief Complaint, ROS, and Past Histories independently gathered by the clinical data support analyst and the remaining scribed note accurately describes my personal service to the patient. This document has been created with the use of voice recognition technology. It may contain inaccuracies, misspellings, inaccurate syntax or inappropriate word context that escaped review. Ángela Delgado DPM documented in this encounter [facility] 12-19-2023 History of Present illness Narrative [facility] [address] [facility] [id number] SUBJECTIVE: Patient ID ([id number]): Charis Allen is a 23 y.o. female presents today for Chief Complaint Patient presents with Follow-up HPI: Charis is seen in follow-up chronic otomycosis. She was last seen 09/19/2023 she has been using Lotrimin cream with unsatisfactory relief. She reports severe itching and drainage. She denies otalgia, new onset tinnitus or changes in hearing. She has a history of ETD, chronic otitis media and hearing loss of the right ear and multiple previous PET placements. She underwent permanent tube placement in the right ear and non permanent tube placement in the left ear, Eustachian tube dilatation and adenoidectomy in October of 2017, by Dr. Lopez in [place], [place]. The left tube has since extruded, without recurrent of infection. She would like to consult regarding removal of the right tube due to chronic otomycosis. No other ENT concerns are reported. HISTORY: Past Medical History: Diagnosis Date Cerebellar tonsillar ectopia (CMS-HCC) Concussion multiple Dizziness Head injury loc 2011 Headache History of chicken pox age 11 Visual impairment Blurred Past Surgical History: Procedure Laterality Date ADENOIDECTOMY Bilateral 11/02/2017 Performed by Karthikeyan Lopez MD at [facility] APPENDECTOMY age 15 CRANIOTOMY CHIARI DECOMPRESSION / N/A 01/27/2023 Performed by Ajay Barbosa MD at [facility] CYSTOSCOPY RETROGRADE PYELOGRAM Bilateral 11/30/2022 Performed by Margot Hernandez MD at [facility] DILATION AND CURETTAGE OF UTERUS 07/31/2023 EUSTACHIAN TUBE DILATION Bilateral 11/02/2017 Performed by Karthikeyan Lopez MD at [facility] POSTERIOR LAMINECTOMY CERVICAL SINGLE LEVEL / C1 N/A 01/27/2023 Performed by Ajay Barbosa MD at [facility] TONSILLECTOMY TYMPANOSTOMY TUBE PLACEMENT TYMPANOTOMY WITH PERMANENET VENT TUBE INSERTION. TYMPANOTOMY WITH NONPERMANENT TUBE IN LEFT EAR Bilateral 11/02/2017 Performed by Karthikeyan Lopez MD at [facility] Family History Problem Relation Age of Onset Asthma Mother Back Problems Father Heart disease Maternal Grandmother Heart disease Maternal Grandfather Hypertension Paternal Grandmother Thyroid disease Paternal Grandmother Breast cancer Paternal Grandmother Cancer Paternal Grandfather Anesthesia problems Neg Hx Bleeding Disorder Neg Hx Clotting disorder Neg Hx Ovarian cancer Neg Hx Colon cancer Neg Hx Diabetes Neg Hx Stroke Neg Hx Social History Socioeconomic History Marital status: Single Spouse name: Not on file Number of children: Not on file Years of education: Not on file Highest education level: Not on file Occupational History Not on file Tobacco Use Smoking status: Never Smokeless tobacco: Never Vaping Use Vaping Use: Never used Substance and Sexual Activity Alcohol use: No Drug use: No Sexual activity: Defer Other Topics Concern Not on file Social History Narrative Lives alone. 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 of Health Financial Resource Strain: Not on file Food Insecurity: No Food Insecurity (09/23/2023) Hunger Screening Food Insecurity - Worry: Never True Food Insecurity - Inability: Never True Transportation Needs: Not on file Physical Activity: Not on file Stress: Not on file Social Connections: Not on file Interpersonal Safety: Not on file Housing Instability: Not on file Allergies Allergen Reactions Seasonale (91) [Levonorgestrel-Ethinyl Estrad] Other (See Comments) Patient not sure Doxycycline Dizziness Penicillin G Sodium Rash Current Outpatient Medications Medication Sig Dispense Refill methylphenidate HCl (CONCERTA) 18 mg CR tablet Take 1 tablet (18 mg total) by mouth daily. clindamycin (CLEOCIN T) 1 % lotion Apply 1 application. topically in the morning. clotrimazole-betamethasone (LOTRISONE) cream Apply 1 Application topically in the morning and 1 Application before bedtime. Apply to external auditory canals twice daily for 1 week then twice weekly thereafter.. 30 g 3 ondansetron ODT (ZOFRAN ODT) 4 mg disintegrating tablet Dissolve 1 tablet (4 mg total) on tongue every 8 (eight) hours as needed for nausea for up to 10 doses. (Patient not taking: Reported on 12/19/2023) 10 tablet 0 tiZANidine (ZANAFLEX) 4 mg tablet Take 1 tablet (4 mg total) by mouth every 6 (six) hours as needed for muscle spasms. 30 tablet 0 tretinoin (RETIN-A) 0.1 % cream Apply 1 Application topically in the morning. No current facility-administered medications for this visit. REVIEW OF SYSTEMS: Review of Systems Constitutional: Negative for chills and fever. HENT: Positive for tinnitus. Negative for ear discharge and ear pain. Severe itching of right ear canal Eyes: Negative for redness. Respiratory: Negative for cough and shortness of breath. Gastrointestinal: Negative for vomiting. Endocrine: Negative for heat intolerance. Musculoskeletal: Negative for gait problem. Allergic/Immunologic: Negative for food allergies. Neurological: Negative for dizziness and headaches. Hematological: Does not bruise/bleed easily. Data Reviewed: PHYSICAL EXAMINATION: Temp 36.9 C (98.4 F) Ht 167.6 cm (5' 6 ) Wt 73.7 kg (162 lb 6.4 oz) BMI 26.21 kg/m Constitutional: Healthy, alert, cooperative, and in no distress and normal ablility to communicate . Voice normal quality. Head/Face: Normocephalic, without obvious abnormality, salivary glands normal, atraumatic, sinuses nontender, and facial nerve intact Eyes: No gross abnormalities., EOMI, no nystagmus, and no lid ptosis Ear: RIGHT: hearing normal, external ear normal, and See procedure note. Nose: External nose appears normal Oral: normal lips Heart: Regular rate Respiration: No stridor, Normal respiratory effort. Neurologic: Grossly normal Alert Oriented X 3 Affect normal Cranial nerves 2 -12 grossly intact Microscopic Evaluation of the Ear(s): Pre Op Diagnosis: Right otomycosis Post Op Diagnosis: Same Procedure: Microscopic evaluation of Clinician: Tiesha Rai PA-C Anesthesia: None Complications: none Procedure note: Patient was placed in a seated/supine position. Right ear: Occluding cerumen with fungal elements occluding the EAC, shank of permanent PET is visible inferior to debris, tube lumen is patent. Debris was evacuated using 5F suction and alligator forceps. Tube is in place in the TM. Chloromycetin and boric/acid was insufflated into the EAC avoiding the lumen of the tube. Procedure was successful and and tolerated well.. Post operative instructions were given. ASSESSMENT/PLAN: Charis was seen today for follow-up. Diagnoses and all orders for this visit: Otomycosis- right ear Dysfunction of both eustachian tubes Hearing loss of right ear, unspecified hearing loss type Plan: Cerumen and fungal debris were removed from the right EAC. Boric acid powder was insufflated into the right EAC avoiding the tube, which is in place, patent and dry. Dry ear precautions were discussed. Advised to continue using Lotrisone cream twice daily. Patient would like further consultation for possible removal of right tube. We will schedule with Dr. Verde first available. Return in 4-6 weeks for recheck. Provider Statement: Gregg RAI PA-C personally performed the services described in the documentation as described by the above named scribe in my presence. It is both accurate and complete at the time of final signature. Tiesha Rai PA-C Counseling: The following elements of medical decision making were considered during this visit: Reviewed and summarized previous records and History and physical. The patient was counseled regarding prognosis, risks and benefits of treatment options, impressions, importance of compliance with treatment and risk factor reductions. The patient verbalized understanding and agreement to the plan. Please note that parts of this chart were generated using voice recognition [employer] dictation software. Although every effort was made to ensure the accuracy of this automated agent ticketing gate, some errors in agent ticketing gate may have occurred. Tiesha Rai PA-C 12/19/23 [id number] documented in this encounter [facility] 12-19-2023 Instructions Tiesha Rai PA-C - 12/19/2023 12:45 PM EDT DRY EAR PRECAUTIONS 1. Avoid swimming or submerging your ears under water. 2. When showering/bathing: a. Place a cotton ball dipped in Vaseline in the outer ear canal to create a seal or wear an ear plug b. Face affected ear away from the water c. Dispose of cotton ball after every use d. Should water enter the ear canal, run a hairdryer gently around your outer ear for several seconds after the shower. 3. Avoid use of any ear drops unless otherwise prescribed by your provider. 4. For additional concerns, consult with your ENT provider. documented in this encounter [facility] 11-21-2023 Instructions Ángela Delgado DPM - 11/21/2023 2:47 PM EST FUNGAL NAIL TREATMENT Your nail condition is being treated with the most advanced treatment available, which is the result of successful research. Success with this stubborn condition will require your cooperation. GENERAL INSTRUCTIONS File/thin out top of nail. Thoroughly clean the toenails and the nail beds at least once every week. Soak feet in vinegar and water or Epsom salt and water. Use antifungal or antibacterial soap and a nailbrush to remove any old medication and fungal debris, which has accumulated. Apply the topical antifungal medication every day (TINEACIDE) or (TEATREE OIL). You may also use Vicks vapo rub to soften the nail. This may be alternated with the antifungal. Additional applications should be made following activities such as manual work, sports activities, swimming, or bathing which may remove the coating of the medication from the nails. Cover entire nail and nail bed with medication. Allow a small amount of the medication to get underneath the tip of the nail. Do not force under nail. Let the medication dry thoroughly. No protective dressing or covering is required unless specified during office visit. Use antifungal powder or spray to disinfect your shoes. Use LYSOL spray after each use to disinfect your bathing area. You can also use TINACTIN or DESENEX spray on feet and in shoes. CEDAR balls/sachet can be used in shoes. documented in this encounter [facility] 11-21-2023 Note HNO ID: [id number] Author: ÁNGELA DELGADO DPM Service: ? Author Type: Physician Type: Progress Notes Filed: 11/21/2023 15:03 Note Text: Service Date: November 21, 2023 PCP: No primary care provider on file. Last Podiatry Visit: None at [facility] The history is provided by the patient. Patient presents with: New Patient: Ingrown toe nails, x few years. Big toes on both feet. Pain scale 10. When she walks it gives a jabbing type of pain. Pt denies using anything for her pain. The patient relates she had her toenails torn off by a door and they grew back thick and ingrown. She complains of pain with shoe gear and ambulation. ALLERGIES Allergen Reactions Periactin [Cyprohep* Diarrhea, Other: See Comments Passing out, turning white. Doxycycline Other: See Comments dizziness Penicillin G Sodium Rash Seasonal Allergies Current Outpatient Medications on File Prior to Visit Medication Sig methylphenidate HCl (CONCERTA ORAL) Take 18 mg by mouth once daily. Sulfacetamide Sodium-Sulfur 10-5 % (w/w) lotn Apply to all acne-prone areas twice daily (Patient not taking: Reported on 11/21/2023) adapalene (DIFFERIN) 0.1 % gel Apply to all acne-prone areas at bedtime. (Patient not taking: Reported on 11/21/2023) pimecrolimus (ELIDEL) 1 % cream APPLY 2 TIMES DAILY TO FACIAL AREAS NEEDED FOR RASH/ITCHING (Patient not taking: Reported on 11/21/2023) No current facility-administered medications on file prior to visit. Review of Systems Constitutional: Negative for chills and fever. Cardiovascular: Negative for leg swelling. Musculoskeletal: Negative for gait problem. Skin: Negative for rash and wound. Neurological: Negative for numbness. Hematological: Does not bruise/bleed easily. Physical Exam Vitals reviewed. Constitutional: Appearance: Normal appearance. 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 Hallux toenails are thickened and dystrophic causing pain with palpation, ingrowing nail both borders and distal aspect of the toe, no s/s of infection Skin: Comments: Bilateral hallux nails thickened dystrophic and ingrown in bilateral borders. Red skin next to the toenail Swelling next to the toenail Tenderness next to the toenail Tenderness of the toenail Nails are thickened and dystrophic. Neurological: Mental Status: She is alert and oriented to person, place, and time. Psychiatric: Mood and Affect: Mood normal. ALT Date Value Ref Range Status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 CenterIn the event this information is protected by the Federal Confidentiality of Alcohol and Drug Abuse Patient Records regulations: The Federal rules restrict any use of the information to criminally investigate or prosecute any alcohol or drug abuse patient.[facility] CenterIn the event this information is protected by the Federal Confidentiality of Alcohol and Drug Abuse Patient Records regulations: The Federal rules restrict any use of the information to criminally investigate or prosecute any alcohol or drug abuse patient.[facility] CenterIn the event this information is protected by the Federal Confidentiality of Alcohol and Drug Abuse Patient Records regulations: The Federal rules restrict any use of the information to criminally investigate or prosecute any alcohol or drug abuse patient.[facility] CenterIn the event this information is protected by the Federal Confidentiality of Alcohol and Drug Abuse Patient Records regulations: The Federal rules restrict any use of the information to criminally investigate or prosecute any alcohol or drug abuse patient.[facility] CenterIn the event this information is protected by the Federal Confidentiality of Alcohol and Drug Abuse Patient Records regulations: The Federal rules restrict any use of the information to criminally investigate or prosecute any alcohol or drug abuse patient.[facility] CenterIn the event this information is protected by the Federal Confidentiality of Alcohol and Drug Abuse Patient Records regulations: The Federal rules restrict any use of the information to criminally investigate or prosecute any alcohol or drug abuse patient.[facility] CenterIn the event this information is protected by the Federal Confidentiality of Alcohol and Drug Abuse Patient Records regulations: The Federal rules restrict any use of the information to criminally investigate or prosecute any alcohol or drug abuse patient.[facility] CenterIn the event this information is protected by the Federal Confidentiality of Alcohol and Drug Abuse Patient Records regulations: The Federal rules restrict any use of the information to criminally investigate or prosecute any alcohol or drug abuse patient.[facility] CenterIn the event this information is protected by the Federal Confidentiality of Alcohol and Drug Abuse Patient Records regulations: The Federal rules restrict any use of the information to criminally investigate or prosecute any alcohol or drug abuse patient.[facility] CenterIn the event this information is protected by the Federal Confidentiality of Alcohol and Drug Abuse Patient Records regulations: The Federal rules restrict any use of the information to criminally investigate or prosecute any alcohol or drug abuse patient.[facility] CenterIn the event this information is protected by the Federal Confidentiality of Alcohol and Drug Abuse Patient Records regulations: The Federal rules restrict any use of the information to criminally investigate or prosecute any alcohol or drug abuse patient.[facility] CenterIn the event this information is protected by the Federal Confidentiality of Alcohol and Drug Abuse Patient Records regulations: The Federal rules restrict any use of the information to criminally investigate or prosecute any alcohol or drug abuse patient.[facility] CenterIn the event this information is protected by the Federal Confidentiality of Alcohol and Drug Abuse Patient Records regulations: The Federal rules restrict any use of the information to criminally investigate or prosecute any alcohol or drug abuse patient.[facility] CenterIn the event this information is protected by the Federal Confidentiality of Alcohol and Drug Abuse Patient Records regulations: The Federal rules restrict any use of the information to criminally investigate or prosecute any alcohol or drug abuse patient.[facility] CenterIn the event this information is protected by the Federal Confidentiality of Alcohol and Drug Abuse Patient Records regulations: The Federal rules restrict any use of the information to criminally investigate or prosecute any alcohol or drug abuse patient.[facility] CenterIn the event this information is protected by the Federal Confidentiality of Alcohol and Drug Abuse Patient Records regulations: The Federal rules restrict any use of the information to criminally investigate or prosecute any alcohol or drug abuse patient.[facility] CenterIn the event this information is protected by the Federal Confidentiality of Alcohol and Drug Abuse Patient Records regulations: The Federal rules restrict any use of the information to criminally investigate or prosecute any alcohol or drug abuse patient.[facility] CenterIn the event this information is protected by the Federal Confidentiality of Alcohol and Drug Abuse Patient Records regulations: The Federal rules restrict any use of the information to criminally investigate or prosecute any alcohol or drug abuse patient.[facility] Center[facility] the event this information is protected by the Federal Confidentiality of Alcohol and Drug Abuse Patient Records regulations: The Federal rules restrict any use of the information to criminally investigate or prosecute any alcohol or drug abuse patient.[facility] Center[facility] the event this information is protected by the Federal Confidentiality of Alcohol and Drug Abuse Patient Records regulations: The Federal rules restrict any use of the information to criminally investigate or prosecute any alcohol or drug abuse patient.[facility] CenterIn the event this information is protected by the Federal Confidentiality of Alcohol and Drug Abuse Patient Records regulations: The Federal rules restrict any use of the information to criminally investigate or prosecute any alcohol or drug abuse patient.[facility] Center[facility] the event this information is protected by the Federal Confidentiality of Alcohol and Drug Abuse Patient Records regulations: The Federal rules restrict any use of the information to criminally investigate or prosecute any alcohol or drug abuse patient.[facility] CenterIn the event this information is protected by the Federal Confidentiality of Alcohol and Drug Abuse Patient Records regulations: The Federal rules restrict any use of the information to criminally investigate or prosecute any alcohol or drug abuse patient.[facility] CenterIn the event this information is protected by the Federal Confidentiality of Alcohol and Drug Abuse Patient Records regulations: The Federal rules restrict any use of the information to criminally investigate or prosecute any alcohol or drug abuse patient.[facility] CenterIn the event this information is protected by the Federal Confidentiality of Alcohol and Drug Abuse Patient Records regulations: The Federal rules restrict any use of the information to criminally investigate or prosecute any alcohol or drug abuse patient.[facility] CenterIn the event this information is protected by the Federal Confidentiality of Alcohol and Drug Abuse Patient Records regulations: The Federal rules restrict any use of the information to criminally investigate or prosecute any alcohol or drug abuse patient.[facility] Reason for Visit (unrecogniz ed section and content) Reason Comments Radiology MRI Reason Comments Established Patient at least Reason Onset Date Comments Refill Request 03/16/2022 Reason Comments Refill Request Reason Comments Headache Reason Onset Date Comments Refill Request 05/15/2022 Reason Comments Appointment Cancelled Reason Comments Patient Question Reason Comments Patient Request Reason Comments New Patient Ear drainage and flu id, second opnion Reason Comments Medication Problem Reason Comments Acne Reason Comments Patient Update Reason Comments Acne Reason Comments Referral Information Reason Comments Established Patient Reason Comments Pt would like a neurology 2nd opinion ap pt. Reason Comments Patient Education Assessment Reason Comments Consult Breast reduction con sult Specialty Diagnoses / Procedures Referred By Rupert t Referred To Contact Plastic Surgery Diagnoses Mastodynia Macromastia Procedures CONSULT TO PLASTIC SURGERY OFFICE/OUTPATIENT NEW HIGH MDM 60-74 MINUTES Dianna Villa PA-C [address] [place] [address] Referral ID Status Reason Start Date Expiration Date V isits Requested Visits Authorized [id number] Closed PCP Requested Referral 10/13/2022 10/13/2023 1 1 Reason Comments Opened In Error Reason Comments Medication Question Reason Comments New Patient Ingrown toe nails, x few years. Big toes on both feet. Pain scale 10. When she walks it gives a jabbing type of pain. Pt denies using anything for her pain. Reason Comments Pain 1st toenail Pain 1st toenail; Pain is 10/10 with ambulation. Pain is relieved when not standing/walking on feet. Procedure Specialty Diagnoses / Procedures Referred By Rupert t Referred To Contact MR IMAGING Diagnoses Cerebellar tonsillar ectopia (HCC) Procedures MRI BRAIN WO/W IVCON MRI BRAIN BRAIN STEM W/O W/CONTRAST MATERIAL SamplesSreekanth MD [address] [id number] [id number] Referral ID Status Reason Start Date Expiration Date V isits Requested Visits Authorized [id number] Closed Auto-Generate d Referral 2022 11/17/2023 1 1 Specialty Diagnoses / Procedures Referred By Rupert garcía Referred To Contact MR IMAGING Diagnoses Thunderclap headache Procedures MRI BRAIN WO/W IVCON MRI BRAIN BRAIN STEM W/O W/CONTRAST MATERIAL Samples, MD Sreekanth [address] [id number] [id number] Referral ID Status Reason Start Date Expiration Date V isits Requested Visits Authorized [id number] Closed Auto-Generate d Referral 12/22/2021 10/08/2022 1 1 Reason Comments Follow-up Pt states she is her e for a follow up on her medication. Pt states she has no concerns at this time. Reason Comments Nail Check Pt following up on b ilateral hallux nails post matrixectomy in december. PT relates that she was sick and forgot about coming in for her post op appts. Pt relates that she was using antifungal however she discontinued because she was not sure if she still needed to use them. Reason Comments Gynecologic Exam Reason Onset Date Comments Med Refill 08/16/2024 Reason Onset Date Comments Med Refill 09/18/2024 Reason Onset Date Comments Med Refill 06/17/2024 Reason Comments Follow-up Base of tongue mass Reason Comments ADHD Reason Comments sick visit Reason Comments Chest Pain Abdominal Pain Headache Patient c/o chest pa in that started approximately 0000. States she now also has abdominal pain, n/v, and a headache. Reason Onset Date Comments Med Refill 11/22/2024 Reason Comments Earache Reason Comments Ear Problem Reason Comments Follow-up Reason Comments Post-op Tube Removal Reason Comments Sore Throat Reason Comments Sore Throat Chronic Reason Comments Post-op Care Teams (unrecognized sec tion and content) Iphone Developer Relationship Specialty Start Date End Date SteffanieKerry mack IVET [address] [place], [place] [phone] Nutrition 04/04/23 Iphone Developer Relationship Specialty Start Date End Date SteffanieKerry mack IVET [address] [place] [phone] Nutrition 04/04/23 Iphone Developer Relationship Specialty Start Date End Date SteffanieKerry mack IVET [address] [place] [address] [phone] Nutrition 04/04/23 Iphone Developer Relationship Specialty Start Date End Date SteffaniemildredkgKerry IVET [address] [place] [id number] Nutrition 04/04/23 Iphone Developer Relationship Specialty Start Date End Date SteffanieKerry mack IVET [address] [place] [phone] Nutrition 04/04/23 Iphone Developer Relationship Specialty Start Date End Date SteffanieKerry mack IVET [address] [place] [phone] Nutrition 04/04/23 Team Status: Active Member Role Status Dates Katie Thapa DO Primary Care Provider Active Team Status: Inactive Member Role Status Dates Katie Thapa DO Primary Care Provider Active Jona Vann MD Attending Provider Active Iphone Developer Relationship Specialty Start Date End Date CristobalKerryIVET [address] [place] [address] [phone] Nutrition 04/04/23 Team Status: Inactive Member Role Status Dates Katie Thapa DO Primary Care Provider Active Start: August 17, 2023 End: August 17, 2023 Jona Vann MD Attending Provider Active St art: August 17, 2023 End: August 17, 2023 Team Status: Active Member Role Status Dates Provider Conversion Attending Provider Active St art: September 23, 2023 Team Status: Inactive Member Role Status Dates Katie Thapa DO Primary Care Provider Active Start: November 08, 2023 End: November 08, 2023 Pérez Barcenas DO Attending Provider Active St art: November 08, 2023 End: November 08, 2023 Team Status: Active Member Role Status Dates Katie Thapa DO Primary Care Provider Active Start: November 08, 2023 Jona Vann MD Attending Provider Active St art: November 08, 2023 Iphone Developer Relationship Specialty Start Date End Date Kerry Jain RD [address] [place], [place] [phone] Nutrition 04/04/23 Iphone Developer Relationship Specialty Start Date End Date Kerry Jain RD [address] [place], [place] [phone] Nutrition 04/04/23 Team Status: Inactive Member Role Status Dates Katie Thapa DO Primary Care Provider Active Start: June 27, 2024 End: June 28, 2024 Yung Nichols Jr, MD Emergency Provider Active Start: June 27, 2024 End: June 28, 2024 Iphone Developer Relationship Specialty Start Date End Date Anil Thapa DO [address] [place] [address] PCP - General Family Medicine 02/14/23 Iphone Developer Relationship Specialty Start Date End Date Anil Thapa DO [address] [place] [address] PCP - General Family Medicine 02/14/23 Iphone Developer Relationship Specialty Start Date End Date Anil Thapa DO [address] [place] [address] PCP - General Family Medicine 02/14/23 Iphone Developer Relationship Specialty Start Date End Date Anil Thapa DO [address] [place] [address] PCP - General Family Medicine 02/14/23 Iphone Developer Relationship Specialty Start Date End Date Zarac-Kerry Coates [address] [place], [place] [phone] [facility] 04/04/23 Iphone Developer Relationship Specialty Start Date End Date Anil Thapa DO [address] [place] [address] PCP - General Family Medicine 02/14/23 Iphone Developer Relationship Specialty Start Date End Date Anil Thapa DO [address] [place] [address] PCP - General Family Medicine 02/14/23 Iphone Developer Relationship Specialty Start Date End Date Anil Thapa Jr., DO PCP - General Family Medicine 09/23/23 Iphone Developer Relationship Specialty Start Date End Date Anil Thapa DO [address] [place] [address] PCP - General Family Medicine 02/14/23 Iphone Developer Relationship Specialty Start Date End Date Anil Thapa DO [address] [place] [address] PCP - General Family Medicine 02/14/23 Iphone Developer Relationship Specialty Start Date End Date Anil Thapa DO [address] [facility] [address] [place] [address] PCP - General Family Medicine 10/01/23 Iphone Developer Relationship Specialty Start Date End Date Anil Thapa Jr., DO [address] [address] PCP - General Family Medicine 09/23/23 Iphone Developer Relationship Specialty Start Date End Date Anil Thapa DO [address] [facility] [address] [place] [address] PCP - General Family Medicine 02/14/23 Iphone Developer Relationship Specialty Start Date End Date Anil Thapa Jr., DO [address] [place] [address] PCP - General Family Medicine 09/23/23 Iphone Developer Relationship Specialty Start Date End Date Anil Thapa Jr., DO [address] [place] [address] PCP - General Family Medicine 09/23/23 Iphone Developer Relationship Specialty Start Date End Date Anil Thapa Jr., DO [address] [place] [address] PCP - General Family Medicine 09/23/23 Iphone Developer Relationship Specialty Start Date End Date Anil Thapa Jr., DO [address] [place] [address] PCP - General Family Medicine 09/23/23 Iphone Developer Relationship Specialty Start Date End Date Anil Thapa Jr., DO PCP - General Family Medicine 09/23/23 Iphone Developer Relationship Specialty Start Date End Date Anil Thapa Jr. DO PCP - General Family Medicine 09/23/23 Iphone Developer Relationship Specialty Start Date End Date Anil Thapa Jr., DO PCP - [facility] 09/23/23 Iphone Developer Relationship Specialty Start Date End Date Anil Thapa Jr., DO PCP - [facility] 09/23/23 Iphone Developer Relationship Specialty Start Date End Date BonitaAnil varghese Jr., PCP - [facility] 09/23/23 Iphone Developer Relationship Specialty Start Date End Date Anil Thapa Jr. DO PCP - [facility] 09/23/23 Iphone Developer Relationship Specialty Start Date End Date Anil Thapa Jr., DO PCP - [facility] 09/23/23 Goals (unrecognized section and content) Goals may be documented in a n alternate section Ordered Prescriptions (unrec ognized section and content) Prescription Sig Dispensed Refills Start Date End Da te ondansetron (ZOFRAN-ODT) 4 MG disintegrating tablet Take 1 tablet by mouth 3 times daily as needed for Nausea or Vomiting 21 tablet 11/16/2024 Scheduled Active and Recently Administ ered Medications (unrecognized section and content) Medication Order 11/14/2024 11/15/2024 11/16/2024 droPERidol (INAPSINE) injection 1.25 mg (COMPLETED) 1.25 mg, IntraVENous, ONCE, 1 dose, On 11/16/24 at 0215 0205 (Given - Provid er: Aggie Gonzalez RN) ketorolac (TORADOL) injection 15 mg (COMPLETED) 15 mg, IntraVENous, ONCE, 1 dose, On 11/16/24 at 0115, Do not administer for more than 5 days. 0111 (Given - Provid er: Aggie Gonzalez RN) ondansetron (ZOFRAN) injection 4 mg (COMPLETED) 4 mg, IntraVENous, ONCE, 1 dose, On 11/16/24 at 0115 0111 (Given - Provid er: Aggie Gonzalez RN) sodium chloride 0.9 % bolus 1,000 mL (COMPLETED) 1,000 mL (14.7 mL/kg), IntraVENous, at 495.9 mL/hr, Administer over 121 Minutes, ONCE, On 11/16/24 at 0115, For 1 dose 0113 (New Bag - Prov ider: Aggie Gonzalez RN)0249 (Stopped - Provider: Aggie Gonzalez RN) PRN Medication Order 11/14/2024 11/15/2024 11/16/2024 iopamidol (ISOVUE-370) 76 % injection 75 mL (COMPLETED) 75 mL, IntraVENous, IMG ONCE PRN, 1 dose, Starting on 11/16/24 at 0134, Until 11/16/24 at 0153, Other 0153 (Given - Provid er: Francheska Grimm) FOR RECORDS PERTAINING TO PATIENTS WHO ARE OR HAVE BEEN ENROLLED IN A CHEMICAL DEPENDENCY/SUBSTANCEABUSE PROGRAM, SOME INFORMATION MAY BE OMITTED. This clinical summary was aggregated from multiple sources. Caution should be exercised in using it in the provision of clinical care. This summary normalizes information from multiple sources, and as a consequence, information in this document may materially change the coding, format and clinical context of patient data. In addition, data may be omitted in some cases. CLINICAL DECISIONS SHOULD BE BASED ON THE PRIMARY CLINICAL RECORDS. [employer] provides no warranty or guarantee of the accuracy or completeness of information in this document.
[2024-11-29 17:36] LABS: HCG Quantitative 759 mIU/mL
== END 2024-11-29 16:26 | disposition home or self-care (01) ==
LOC: LAB 16:26
PROVIDERS: PCP Family Medicine; Visit Provider Specialist
DX: Z32.01 Encounter for pregnancy test, result positive (principal)
CPT/HCPCS: 36415; 84702

== ENCOUNTER 2025-04-16 23:41 | Emergency (ER) | payer SELFPAY ==
[2025-04-16 23:46] VITALS: BP 107/71; PULSE 80; TEMP 37.2; O2SAT 99; BMI 22.6
--- OUTSIDE RECORDS SUMMARY | 2025-04-17 00:21 | XMS_ITS | CCD ---
Author Organization [facility] CliniSyut Care Team Providers Care Tack Coverer Name Role Phone SREEKANTH JOHNSON Unavailable Unavailable SELF, REFERRED Unavailable Unavailable SELF, REFERRED Unavailable Unavailable LENA REDDY Unavailable Unavailable Margarita Chiu Attending Physician Unavailable Unavailable Primary Care Provider Unavailko e Zully Mendoza Unavailable Unavailable Primary Care Provider Unavailabl e Unavailable Primary Care Provider UnavailDIANNA Redmond Referring Unavailable DIANNA VILLA Attending Unavailable Wesly KEEN Attending Unavailable Wesly KEEN Attending Unavailable Katie THAPA Primary Care Unavailable MARGOT BLACKMAN Referring Unavailable MARGOT BLACKMAN Attending Unavailable Katie THAPA Primary Care Unavailable JOE AN Attending Unavailable Katie THAPA Primary Care Unavailable Katie THAPA Referring Unavailable ALANIS, DR Diane CASTILLO Attending Unavailable KAFTSHAE, DR Diane CASTILLO Consulting Unavailable KAFTAN, DR Diane CASTILLO Primary Care Unavailable KAFTAN, DR Diane CASTILLO Admitting Unavailable PAY ., DR SINGH Attending Unavailable PAY ., DR SINGH Consulting Unavailable PAY ., DR SINGH Admitting Unavailable KAMAGUI, DR Diane CASTILLO Primary Care Unavailable KAFTSHAE, DR Diane CASTILLO Attending Unavailable KAFTSHAE, DR Diane CASTILLO Consulting Unavailable KAFTAN, DR Diane CASTLILO Primary Care Unavailable KAMAGUI, DR Diane CASTILLO [...] Unavailable DO Katie Thapa Primary Care Provider [phone] MD Jona Vann Attending Provider [phone] DO Katie Thapa Primary Care Provider [phone] MD Jona Vann Attending Provider Patricia Salas Unavailable DO Katie Thapa Primary Care Provider MD Jona Vann Attending Provider DO Pérez Barcenas Attending Provider [phone] Pérez Barcenas Unavailable DO Katie Thapa Primary Care Provider MD Yung Nichols Jr Emergency Provider Unavailable Primary Care Provider UnavailAnil Soriano DO Primary Care Provider ÁNGELA DELGADO Attending Unavailable ÁNGELA DELGADO Attending Unavailable SELF Referring Unavailable ÁNGELA DELGADO Attending Unavailable MARY ANN LEVIN [facility] Unavailable Alanis Sky DO, George R Primary Care Provider ANIL THAPA Attending Unavailable ANIL THAPA Referring Unavailable ANIL THAPA Attending Unavailable ANIL THAPA Referring Unavailable JONA VANN Attending Unavailable JONA VANN Referring Unavailable HARMONY GERMAN Attending Unavailable ANIL THAPA Referring Unavailable RYANN ZHANG Attending Unavailable RYANN ZHANG Referring Unavailable HARMONY GERMAN Attending Unavailable JONA VANN Attending Unavailable ANIL THAPA Attending Unavailable JONA VANN Attending Unavailable CADEN THOMAS Attending Unavailable ANIL THAPA JR Primary Care Unavailable VU, OSBALDO CATIE Attending Unavailable ANIL THAPA JR Referring Unavailable ANIL THAPA JR Primary Care Unavailable VU, OSBALDO-CATIE Attending Unavailable ANIL THAPA JR Referring Unavailable ANIL THAPA JR Primary Care Unavailable TIESHA RAI Referring Unavailable ANIL THAPA JR Primary Care Unavailable EMILIA CONKLIN Attending Unavailable ANIL THAPA JR Primary Care Unavailable MICH VERDE Admitting Unavailable MICH VERDE Attending Unavailable KAFTAN JR, ANIL R Primary Care Unavailable MICH VERDE Referring Unavailable DIAAN , ANIL R Primary Care Unavailable KAMARENAN , ANIL R Referring Unavailable KAFTAN , ANIL R Primary Care Unavailable VU, OSBALDO-CATIE Admitting Unavailable VU, OSBALDO-CATIE Attending Unavailable ALANIS ROGER, ANIL R Primary Care Unavailable Anil Thapa DO Primary Care Provider Alanis Sky DO, George R Primary Care Provider [facility] navailable [facility] Unavailable [phone] Yung Nichols Jr Attending Unavailable Katie Thapa Primary Care Unavailable Yung Nichols Jr Admitting Unavailable Katie Thapa Primary Care Unavailable Yaritza Bauer Admitting Unavailable Yaritza Bauer Attending Unavailable Katie Thapa DO Primary Care Provider Yaritza Bauer APRN Emergency Provider ANIL THAPA Primary Care Unavailable MILTON GARCIA Attending Unavailable ANIL THAPA Primary Care Unavailable AKIKO ACOSTA Attending Unavailable ANIL THAPA Primary Care Unavailable ROHIT ROB Attending Unavailable JONA VANN Referring Unavailable ANIL THAPA Primary Care Unavailable MICH VERDE Attending Unavailable ALANIS ROGER, ANIL R Referring Unavailable DIAAN , ANIL R Primary Care Unavailable VU, OSBALDO-CATIE Attending Unavailable ALANIS ROGER, ANIL R Referring Unavailable ALANIS ROGER, ANIL R Primary Care Unavailable MICH VERDE Attending Unavailable ALANIS ROGER, ANIL R Referring Unavailable DIAAN , ANIL R Primary Care Unavailable TIESHA RAI Attending Unavailable ALANIS ROGER, ANIL R Referring Unavailable ALANIS ROGER, ANIL R Primary Care Unavailable MICH VERDE Attending Unavailable ALANIS ROGER, ANIL R Referring Unavailable ALANIS ROGER, ANIL R Primary Care Unavailable TIESHA RAI Attending Unavailable ALANIS ROGER, ANIL R Referring Unavailable KAMARENAN JR, ANIL R Primary Care Unavailable KAMARENAN JR, ANIL R Referring Unavailable KAMARENAN JR, ANIL R Primary Care Unavailable KAFTAN JR, ANIL R Primary Care Unavailable FERNANDA CHRISTY Attending Unavailable ALANIS ROGER, ANIL R Primary Care Unavailable DANIELE EDMOND Admitting Unavailable NOLA SESAY Attending Unavailable Alanis Sky DO, George R Primary Care Provider Allergies Allergy Classification Reported Allergen(s) Allergy Type Date of Onset Reaction(s) Facility (1 source) lactose Drug Allergy 02-15-20 17 [facility] Repository (20 sources) Cyproheptadine; Translations: [CYPROHEPTADINE ] Drug Allergy 08-02-20 13 Diarrhea, Other: See Comments, Other (See Comments) [facility] (20 sources) Seasonal allergy; Translations: [SEASONAL ALLERGIES] Propensity to adverse reactions 12-25-19 10 [facility] (20 sources) Doxycycline; Translations: [DOXYCYCLINE] Drug Allergy 11-29-19 22 Other: See Comments, rash, Dizziness, Dizziness or Vertigo, Other (See Comments) [facility] Work Phone: (20 sources) Penicillin G; Translations: [PENICILLIN G SODIUM] Drug Allergy 11-29-19 22 Rash [facility] Work Phone: (20 sources) Penicillins; Translations: [Penicillins] Allergy to substance 08-03-20 23 Unknown Reaction, Unknown Reaction, rash [facility] (20 sources) Azithromycin; Translations: [azithromycin] Drug Allergy 08-17-20 23 Unknown Reaction [facility] Comment on above: Tachycardia and rash (20 sources) oxyCODONE; Translations: [oxycodone] Drug Allergy 08-17-20 23 Palpitations [facility] (5 sources) Penicillin Drug Allergy rash [place] Other (20 sources) Penicillin G sodium Allergy to substance 11-29-19 22 Rash [facility] (20 sources) Levonorgestrel- Ethinyl Estrad; Translations: [LEVONORGESTREL -ETHINYL ESTRAD] Drug Intolerance 12-25-19 10 Other (See Comments) [facility] (13 sources) Pollen; Translations: [POLLEN EXTRACTS] Propensity to adverse reactions to drug 08-20-20 24 Other (See Comments) [facility] (1 source) Doxycycline Drug Allergy 02-19-20 25 [facility] Repository Medications Current Medications Medication Drug Class(es) [...] / HYDROcodone bitartrate 5 mg oral tablet (3 sources) Opioid Agonist Start: 08-27-2024 End: 08-30-2024 HYDROcodone-acet aminophen (NORCO) 5-325 mg per tablet Indications: Acute post-operative pain Take 1 tablet by mouth every 4 (four) hours as needed for pain for up to 3 days. Max Daily Amount: 6 tablets 18 tablet 08/27/2024 08/30/2024 Active Start: 06-28-2024 End: 02-18-2025 take 1 tablet by mouth every six hours as needed for pain Hydrocodone-Acetaminophen 5-325 mg table t Discontinued 1 - 2 TAB PO Q6H as needed for pain 15 3 June 28, 2024 February 18, 2025 6:15pm adapalene 0.001 mg/mg topical gel (10 sources) Retinoid Start: 08-16-2023 adapalene (DIF FERIN) [...] to affected area two times a day. ciprofloxacin 500 mg oral tablet (1 source) [...] topical solution (20 sources) Lincosamide Antibacterial Start: 03-19-2025 clindamycin (CLEOCIN ) 1 % external solution Indications: Acne vulgaris APPLY TO AFFECTED AREAS ON FACE ONCE EVERYDAY 60 mL 03/19/2025 Active Start: 10-13-2024 clindamycin (C leocin T) 1 % external solution APPLY TO AFFECTED AREAS ON FACE ONCE A DAY 10/13/2024 Active Start: 12-26-2023 End: 03-19-2025 clindamycin (CLEOCIN) 1 % ex ternal solution Indications: Acne vulgaris APPLY TO AFFECTED AREAS ON FACE ONCE A DAY 60 mL 01/08/2025 03/19/2025 Discontinued Start: 09-12-2022 End: 05-05-2023 clindamycin (CLEOCIN) 1 [...] morning. 60 mL 5 03/16/2022 03/17/2022 Discontinued Clindamycin Phos phate Active Comment on above: [...] face once daily. Condoms - Male misc (5 sources) Start: 10-29-2024 Condoms - Male misc [...] dose nasal spray (1 source) Corticosteroid Start: 022 take 1 spray(s) nasal route once daily Fluticasone Propionate 50 MCG/ACT 1 spray in each nostril Nasally Once a day for 14 day(s) Jun, Active 24 hr methylphenidate hydrochloride 18 mg extended release oral tablet (20 sources) Central Nervous System Stimulant Start: take 1 tablet by mouth in the morning methylphenidate ER (Concerta) 18 MG CR tablet Indications: Attention deficit hyperactivity disorder (ADHD), combined type (CMS/HCC) Take 1 tablet (18 mg) by mouth in the morning. Do not crush, chew, or split. 30 tablet 02/17/2025 Active Start: 05-17-2024 End: 02-15-2025 take 1 tablet by mouth in the morning methylphenidate ER (Concerta) 18 MG CR tablet Indications: Attention deficit hyperactivity disorder (ADHD), combined type (CMS/HCC) Take 1 tablet (18 mg) by mouth in the morning. Do not crush, chew, or split.. 30 tablet 01/15/2025 02/15/2025 Discontinued (Reorder) Start: 12-19-2023 End: 01-18-2024 take 1 tablet by mouth once daily methylphenidate HCl (CONCERTA) 18 mg CR tablet Take 1 tablet (18 mg total) by mouth daily. 0 12/19/2023 01/18/2024 Active Comment on above: Take 18 mg by mouth once daily. methylPREDNISolone (6 sources) Corticosteroid Start : 09-03 methylPREDNISolone (MEDROL, [...] nausea or vomiting 11/16/2024 Active Start: 11-16-2024 End: 12-01-2024 take 1 tablet by mouth three times daily as needed for nausea ondansetron (ZOFRAN-ODT) 4 MG disintegrating tablet Take 1 tablet by mouth 3 times daily as needed for Nausea or Vomiting 21 tablet 11/16/2024 12/01/2024 Discontinued (Contraindicated) Start: 11-16-2024 End: 11-16-2024 4 mg, IntraVENous, [...] 08/20/2022 Discontinued Start: 12-01-2021 End: 08-03-2023 take 1 tablet by mouth every six hours as needed for nausea and vomiting Ondansetron 4 mg tablet,disintegrating Discontinued 4 MG PO Q6H as needed for nausea and vomiting December 01, 2021 1:00am August 03, 2023 4:04pm Start: 11-30-2021 End: 08-03-2023 take 1 tablet by mouth every eight hours as needed for nausea and vomiting Ondansetron 4 mg tablet,disintegrating Discontinued 4 MG PO Q8H as needed for nausea and vomiting November 30, 2021 1:00am August 03, 2023 [...] mg/ml / sulfur 50 mg/ml topical lotion (10 sources) Sulfonamide Antibacterial Start: 2022 Sulfacetamide Sodium-Sulfur [...] Comment on above: Take 1 tablet by [facility] once daily. terconazole 4 mg/ml vaginal cream (3 sources) Azole Antifungal Start: 2024 End: 2024 terconazole (Terazol 7) 0.4 % vaginal cream Indications: Vulvovaginal Candidiasis Insert 1 applicator into the vagina at bedtime for 7 days 45 g 2 10/23/2024 10/30/2024 Active triamcinolone acetonide 1 mg/ml topical cream (7 sources) Corticosteroid Start: 2024 triamcinolone (Kenalog) 0.1 % cream Indications: Vaginal burning Apply topically 2 (two) times a day 30 g 2 10/23/2024 Active Completed/Discontinued Medications Medication Drug Class(es) Dates Sig (Normalized) Sig (Original) acetaminophen 325 mg / butalbital 50 mg / caffeine 40 mg oral capsule (6 sources) Barbiturate, Central Nervous System Stimulant, Methylxanthine Start: 11-30-2021 End: 08-03-2023 take 1 capsule by mouth every six hours as needed for pain Butalbital-Acetami nophen-Caff 50-325-40 mg capsule Discontinued 1 CAP PO Q6H as needed for pain November 30, 2021 1:00am August 03, 2023 [...] Jun, Not-Taking/PRN azithromycin 500 mg oral tablet (6 sources) Macrolide Antimicrobial Start: 08-03-2023 End: 08-17-2023 take 1 tablet by mouth once daily Azithromycin (Zithromax) 500 mg tablet Discontinued 500 MG PO Daily 04 14August 03, 2023 12:00am August 17, 2023 4:57pm cephalexin 500 mg oral capsule (16 sources) Cephalosporin Antibacterial Start: 06-28-2024 End: 02-18-2025 take 2 capsules by mouth twice daily Cephalexin 500 mg capsule Discontinued 1000 MG PO Twice daily 05 05June 28, 2024 12:00am February 18, 2025 6:15pm Start: 06-28-2024 take 1000 mg by mout h twice daily Cephalexin Active 1000 MG PO Twice daily 05 05June 28, 2024 12:00am Start: 12-01-2021 End: 08-20-2022 cephALEXin (KEFLEX) 500 mg c apsule Take 500 capsules by mouth as needed. 0 12/01/2021 08/20/2022 Discontinued (Course of therapy completed) Comment on above: Take 500 capsules by mouth as needed. cetirizine hydrochloride 10 mg oral tablet (5 sources) Histamine-1 Receptor Antagonist Start: End: take 1 tablet by mouth once daily as needed cetirizine (ZyrTEC) 10 MG tablet Indications: Rash and nonspecific skin eruption TAKE 1 TABLET (10 MG) BY MOUTH DAILY NEEDED 30 tablet 03/05/2024 07/17/2024 Discontinued ciclopirox 80 mg/ml topical solution (14 sources) Start: End: Ciclopirox (LOPROX) 8 % solution APPLY 1 APPLICATION EXTERNALLY EVERY DAY 0 11/29/2021 08/20/2022 Discontinued Comment on above: APPLY 1 APPLICATION EXTERNALLY EVERY DAY cyclobenzaprine hydrochloride 10 mg oral tablet (14 sources) Muscle Relaxant Start: End: take 1 tablet by mouth three times daily cyclobenzaprine (FLEXERIL) 10 mg tablet Take 10 mg by mouth three times daily. 0 11/29/2021 08/20/2022 Discontinued (Course of therapy completed) Comment on above: Take 10 mg by mouth three times daily. diphenhydrAMINE hydrochloride 25 mg oral capsule (14 sources) Histamine-1 Receptor Antagonist Start: End: take 1-2 capsules by mouth at bedtime diphenhydrAMINE (BENADRYL) 25 mg capsule Take 1-2 po at bedtime 60 capsule 5 12/22/2021 08/20/2022 Discontinued (Course of therapy completed) Comment on above: Take 1-2 po at bedti me doxycycline monohydrate 100 mg oral tablet (3 sources) Tetracycline-class Drug Start: End: take 1 tablet by mouth once daily doxycycline monohydrate 100 mg tablet Indications: Acne vulgaris Take 1 tablet by mouth once daily. 30 tablet 1 08/17/2022 09/12/2022 Discontinued (Side Effects) Comment on above: Take 1 tablet by [facility] once daily. 2 ml droperidol 2.5 mg/ml injection (1 source) Dopamine-2 Receptor Antagonist Start: End: 1.25 mg, IntraVENous, ONCE, 1 dose, On [...] above: Take 1 tablet by [facility] once daily. ibuprofen 600 mg oral tablet (13 sources) Nonsteroidal Anti-inflammatory Drug Start: End: take 1 tablet by mouth every eight hours as needed for pain Ibuprofen 600 mg tablet Discontinued 600 MG PO Q8H as needed for pain June 28, 2024 12:00am February 18, 2025 6:15pm Start: 08-17-2023 End: 06-27-2024 take 1 tablet by mouth every six hours as needed for pain Ibuprofen 800 mg tablet Discontinued 800 MG PO Q6H as needed for pain August 17, 2023 1:00am June 27, 2024 10:19pm Start: 09-19-2017 End: 08-03-2023 take 4 tablets by mouth every twenty-four hours for pain Ibuprofen 600 mg tablet Discontinued 600 MG PO Q8H as needed for pain September 19, 2017 1:00am August 03, 2023 4:04pm do not exceed 4 doses in a 24 hour period iopamidol (ISOVUE-370) 76 % injection 75 mL (1 source) Start: 11-16-2024 End: 11-16-2024 take 1 dose intravenously once 75 mL, IntraVENous, IMG ONCE PRN, 1 dose, Starting on 11/16/24 at 0134, Until 11/16/24 at 0153, Other 1 ml ketorolac tromethamine 15 mg/ml cartridge (15 sources) Nonsteroidal Anti-inflammatory Drug, Cyclooxygenase Inhibitor Start: 11-16-2024 End: 11-16-2024 15 mg, IntraVENous, ONCE, 1 dose, On 11/16/24 at 0115, Do not administer for more than 5 days. Start: 12-15-2021 End: 08-20-2022 take 1 tablet by mouth once daily keTORolac (TORADOL) 10 mg tablet Take 10 mg by mouth once daily. 0 12/15/2021 08/20/2022 Discontinued (Course of therapy completed) Comment on above: Take 10 mg by mouth once daily. meclizine hydrochloride 12.5 mg oral tablet (4 sources) Antiemetic Start: 01-11-2025 End: 01-11-2025 take 1 dose by mouth once 25 mg, Oral, ONCE, 1 dose, On 01/11/25 at 1930, Send home with pt Start: 01-11-2025 End: 01-21-2025 take 1 tablet by mouth three times daily as needed for dizziness meclizine (Antivert) 25 MG tablet Take 25 mg by mouth 3 (three) times a day as needed for dizziness 01/11/2025 01/21/2025 Active 1 ml medroxyPROGESTERone acetate 150 mg/ml prefilled syringe (15 sources) Progestin Start: 06-11-2020 End: 08-20-2022 medroxyPROGESTERone (DEPO-PROVERA) 150 mg/mL INJECT 1ML INTRAMUSCULARLLY EVERY 12 WEEKS 0 06/11/2020 08/20/2022 Discontinued (Course of therapy completed) medroxyPROGESTER one Acetate Active Comment on above: INJECT 1ML INTRAMUSC ULARLLY EVERY 12 WEEKS methylergonovine maleate 0.2 mg oral tablet (6 sources) Ergot Derivative Start: 2022 End: 2022 take 1 tablet by mouth three times daily Methylergonovine (Methergine) 0.2 mg tablet Discontinued 0.2 MG PO Three times daily 6 August 03, 2023 12:00am August 17, 2023 [...] Comment on above: Take 1 capsule by [facility] twice daily. miSOPROStol 0.2 mg oral tablet (6 sources) Prostaglandin E1 Analog Start: 3 End: take 1 tablet by mouth once Misoprostol 200 mcg tablet Discontinued 400 MCG PO Once August 03, 2023 12:00am August 17, 2023 4:57pm Start: 08-03-2023 End: 08-17-2023 take 400 ug by mouth once Misoprostol Discontinued 400 MCG PO Once August 03, 2023 12:00am August 17, 2023 4:57pm naratriptan 2.5 mg oral tablet (20 sources) Serotonin-1b and Serotonin-1d Receptor Agonist Start: 12-22-2021 End: 06-01-2023 take 1 mg by mouth every twenty-four hours naratriptan (AMERGE) 2.5 mg tablet Take 1 tablet by mouth as directed. at the onset of headache; if headache returns or does not fully resolve, the dose may be repeated after 4 hours; do not exceed five(5) mg in 24 hours. 10 tablet 5 04/04/2022 06/01/2023 Discontinued Comment on above: Take 1 tablet by [facility] as directed. at the onset of headache; if headache returns or does not fully resolve, the dose may be repeated after 4 hours; do not exceed five(5) mg in 24 hours. 50 ml sodium chloride 9 mg/ml injection (1 source) Start: 11-16-2024 End: 11-16-2024 1,000 mL (14.7 mL/kg), IntraVENous, at 495.9 mL/hr, Administer over 121 Minutes, ONCE, On 11/16/24 at 0115, For 1 dose spironolactone 25 mg oral tablet (20 sources) Aldosterone Antagonist Start: 09-12-2022 End: 03-11-2023 take 1 tablet by mouth once daily [...] mg traMADol hydrochloride 100 mg oral tablet (11 sources) Opioid Agonist Start: End: 4 take 1 tablet by mouth every six hours as needed for pain Tramadol 100 mg tablet Discontinued 100 MG PO Q6H as needed for pain 14 August 17, 2023 1:00am June 27, 2024 10:19pm Start: 08-03-2023 End: 08-17-2023 Tramadol 100 mg capsule,ER b iphase 24 hr 25-75 Discontinued 100 MG PO Q24H 3 August [...] Active Problems Problem Classification Problem Date Documented Da te Episodic/Chronic Acute and chronic tonsillitis (15 sources) Hypertrophy of adenoids; Translations: [Hypertrophy of adenoids] Onset: 07-03-2024 07-03-2024 Chronic Administrative/social admission (4 sources) Patient encounter status; Translations: [Dietary counseling and surveillance] Episodic Allergic reactions (2 sources) Eczema; Translations: [Dermatitis, unspecified] Episodic Anxiety disorders (20 sources) Anxiety; Translations: [Anxiety disorder, unspecified] Onset: 08-09-2013 10-04-2021 Chronic Attention-deficit, conduct, and disruptive behavior disorders (20 sources) Attention deficit hyperactivity disorder, combined type; Translations: [Attention-deficit hyperactivity disorder, combined type] Onset: 07-13-2015 10-04-2021 Chronic Diseases of white blood cells (20 sources) Decreased white blood cell count, unspecified; Translations: [Leukopenia] Onset: 10-21-2022 Chronic External Injury - Place of occurrence (1 source) Other specified sports and athletic area as the place of occurrence of the external cause; Translations: [[facility]] Onset: 06-13-2017 External Injury - Unspecified (1 source) Activity, volleyball ([employer]) (court); Translations: [ACTIVITY, VOLLEYBALL ([employer]) (COURT)] Onset: 06-13-2017 Hemorrhage during ; abruptio placenta; placenta previa (2 sources) Threatened miscarriage in first trimester; Translations: [Threatened ] Onset: 11-30-2024 12-01-2024 Episodic Inflammatory diseases of female pelvic organs (3 sources) Acute vaginitis; Translations: [Acute vaginitis] 10-23-2024 Episodic Menstrual disorders (20 sources) Menometrorrhagia; Translations: [Excessive and frequent menstruation with irregular cycle] Onset: 06-29-2023 3 Chronic Mood disorders (20 sources) Depressive disorder; Translations: [Depression] Onset: 06-29-2023 06-29-2023 Chronic Nervous system congenital anomalies (4 sources) Cerebellar disorder; 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 Nonmalignant breast conditions (7 sources) Hypertrophy of breast; Translations: [Large breast] Onset: 10-13-2022 Episodic Other aftercare (1 source) Other residential (current) drug therapy; Translations: [OTH ALF CURRENT DRUG THERAPY] Onset: 10-13-2022 Episodic Other aftercare (2 sources) Surgical follow-up; Translations: [Encounter for follow-up examination after completed treatment for conditions other than malignant neoplasm] 07-15-2024 Episodic Other complications of (6 sources) Blighted ovum; Translations: [Blighted ovum and nonhydatidiform mole] 08-03-2023 Episodic Comment on above: Problem List clean-u p per request of Phys. EHR Cmte Other complications of (1 source) Other specified related conditions, unspecified trimester; Translations: [Other specified related conditions, unspecified trimester] Onset: 02-18-2025 Episodic Other complications of (1 source) Abdominal pain in ; Translations: [Other specified related conditions, unspecified trimester] 02-18-2025 Episodic Other connective tissue disease (2 sources) [...] ear and sense organ disorders (20 sources) Chronic perichondritis of left external ear; [...] HYPOGLYCEMIA] Onset: 12-20-2022 Chronic Other endocrine disorders (20 sources) Hyperinsulinism; Translations: [Other hypoglycemia] Onset: 12-14-2022 [...] injuries and conditions due to external causes (6 sources) Muscle strain; Translations: [Other injury of unspecified body region, initial encounter] 09-19-2017 Episodic Comment on above: Problem List clean-u p per request of Phys. EHR Cmte Other liver diseases (4 sources) Unspecified jaundice; Translations: [UNSPECIFIED JAUNDICE] Onset: 01-03-2023 Episodic Other liver diseases (1 source) Abnormal levels of other serum enzymes Episodic Other nervous system disorders (1 source) Other chronic pain; Translations: [Other chronic pain] Onset: 07-03-2024 Chronic Other nervous system disorders (1 source) Other acute postprocedural pain; Translations: [Other acute postprocedural pain] Onset: 08-27-2024 Episodic Other nutritional; endocrine; and metabolic disorders (1 source) Obesity; Translations: [Obesity, unspecified] Chronic Other nutritional; endocrine; and metabolic disorders (20 sources) Obese class I; Translations: [Obesity (BMI 30.0-34.9)] Onset: 12-14-2022 06-29-2023 Chronic Other nutritional; endocrine; and metabolic disorders (2 sources) Abnormal weight gain; Translations: [Weight gain] Onset: 10-13-2022 Episodic Other nutritional; endocrine; and metabolic disorders (1 source) Overweight Episodic Other nutritional; endocrine; and metabolic disorders (3 sources) Body mass index 25-29 - overweight; Translations: [Overweight] 01-01-2024 Episodic Other skin disorders (20 sources) Acne vulgaris; Translations: [Acne vulgaris] Onset: 12-14-2022 Episodic Other skin disorders (4 sources) Acne vulgaris; Translations: [ACNE VULGARIS] Onset: 12-20-2022 Episodic Other skin disorders (1 source) Acne, unspecified Episodic Other skin disorders (2 sources) Ingrowing toenail; Translations: [Ingrowing nail] 11-21-2023 Episodic Other skin disorders (3 sources) Acne; Translations: [Acne, unspecified] 01-01-2024 Episodic [...] mucoid otitis media, bilateral] Onset: 06-04-2024 Chronic Phlebitis;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 MÁRQUEZ M.D. Performed By: #### F S #### [facility] [address] [place] [address] [place] #### GCCHLAMAMP #### [facility] , Chloride [Moles/volume] in S emiliana or PlasmaOrdered By: Yaritza Bauer on 02-18-2025 Chloride [Moles/Vol] Chloride [Moles/vol ume] in Serum or Plasma 98-107 [facility] Choriogonadotropin.beta subu nit [Units/volume] in Serum or PlasmaOrdered By: Yaritza Bauer on 02-18-2025 HCG.beta subunit Qn Choriogonadotropin.b eta subunit [Units/volume] in Serum or Plasma [facility] Comment on above: Approximate Approxim ate hCG Gestational Age Range (mIU/ml) (weeks)0.2-1 5-50 1-2 50-500 2-3 100-5,000 3-4 500-10,000 4-5 1,000-50,000 5-6 10,000-100,000 6-8 15,000-200,000 8-12 10,000-100,000 Color Auto (U)Ordered By: Yury Bauer on 02-18-2025 Color (U) Color of Urine by Auto Yellow Fi [facility] Complete Blood Count Auto Di ffon 02-18-2025 Basophils (Bld) [#/Vol] 0.1 10*3/uL Normal 0.0-0.2 [facility] Comment on above: Result Comment: PERF ORMED BY: [place] [address] PATHOLOGIST [employer]RARIAN SHANITA MÁRQUEZ M.D. Performed By: #### L IPASE, PT, CBC, HEPATIC, BMP, PTT #### [facility] [address] [place] [address] Basophils/100 WBC (Bld) 1.9 % Normal . [facility] Comment on above: Performed By: #### L IPASE, PT, CBC, HEPATIC, BMP, PTT #### [facility] [address] [place] [address] Eosinophils (Bld) [#/Vol] 0.0 10*3/uL Normal 0.0-0.45 [facility] Comment on above: Performed By: #### L IPASE, PT, CBC, HEPATIC, BMP, PTT #### [address] Eosinophils/100 WBC (Bld) 0.7 % Normal . [facility] Comment on above: Performed By: #### L IPASE, PT, CBC, HEPATIC, BMP, PTT #### [address] Erythrocyte distribution width (RBC) [Ratio] 13.5 % Normal 11.9-15.3 [facility] Comment on above: Performed By: #### L IPASE, PT, CBC, HEPATIC, BMP, PTT #### [address] Hematocrit (Bld) [Volume fraction] 41.8 % Normal 34.0-46.4 [facility] Comment on above: Performed By: #### L IPASE, PT, CBC, HEPATIC, BMP, PTT #### [address] Hemoglobin (Bld) [Mass/Vol] 14.1 g/dL Normal 11.8-15.4 [facility] Comment on above: Performed By: #### L IPASE, PT, CBC, HEPATIC, BMP, PTT #### [address] Lymphocytes (Bld) [#/Vol] 1.6 10*3/uL Normal 1.00-4.8 [facility] Comment on above: Performed By: #### L IPASE, PT, CBC, HEPATIC, BMP, PTT #### [address] Lymphocytes/100 WBC (Bld) 30.2 % Normal . [facility] Comment on above: Performed By: #### L IPASE, PT, CBC, HEPATIC, BMP, PTT #### [address] MCH (RBC) [Entitic mass] 30.9 pg Normal 24.7-34.3 [facility] Comment on above: Performed By: #### L IPASE, PT, CBC, HEPATIC, BMP, PTT #### [address] MCV (RBC) [Entitic vol] 91.6 fL Normal 80-100 [facility] Comment on above: Performed By: #### L IPASE, PT, CBC, HEPATIC, BMP, PTT #### [address] Mean Corpuscular HGB Conc 33.7 g/dL Normal 32.0-35.0 [facility] Comment on above: Performed By: #### L IPASE, PT, CBC, HEPATIC, BMP, PTT #### [address] Monocytes (Bld) [#/Vol] 0.3 10*3/uL Normal 0.0-0.8 [facility] Comment on above: Performed By: #### L IPASE, PT, CBC, HEPATIC, BMP, PTT #### [address] Monocytes/100 WBC (Bld) 22.50 % High 0.00-20.00 [facility] Comment on above: Result Comment: For adults in ED, MDW > 20.0 may be associated with a higher risk of sepsis during the first 12 hrs of hospital admission Performed By: #### L IPASE, PT, CBC, HEPATIC, BMP, PTT #### [address] Monocytes/100 WBC (Bld) 6.6 % Normal . [facility] Comment on above: Performed By: #### L IPASE, PT, CBC, HEPATIC, BMP, PTT #### [address] Neutrophils (Bld) [#/Vol] 3.2 10*3/uL Normal 1.8-7.7 [facility] Comment on above: Performed By: #### L IPASE, PT, CBC, HEPATIC, BMP, PTT #### [address] Neutrophils/100 WBC (Bld) 60.6 % Normal . [facility] Comment on above: Performed By: #### L IPASE, PT, CBC, HEPATIC, BMP, PTT #### [address] NRBC% 0.1 /100{WBC} Normal 0-0.5 [facility] Comment on above: Performed By: #### L IPASE, PT, CBC, HEPATIC, BMP, PTT #### [address] Platelet mean volume (Bld) [Entitic vol] 8.0 fL Normal 6.3-10.[address] [facility] Comment on above: Performed By: #### L IPASE, PT, CBC, HEPATIC, BMP, PTT #### [address] Platelets (Bld) [#/Vol] 181 10*3/uL Normal 150-450 [facility] Comment on above: Performed By: #### L IPASE, PT, CBC, HEPATIC, BMP, PTT #### [address] RBC (Bld) [#/Vol] 4.56 10*6/uL Normal 3.60-5.00 The [facility] Comment on above: Performed By: #### L IPASE, PT, CBC, HEPATIC, BMP, PTT #### [address] WBC (Bld) [#/Vol] 5.2 10*3/uL Normal 3.8-11.6 [facility] Comment on above: Performed By: #### L IPASE, PT, CBC, HEPATIC, BMP, PTT #### [address] Creatinine [Mass/volume] in Serum or PlasmaOrdered By: Yaritza Bauer on 02-18-2025 Creatinine [Mass/Vol] Creatinine [Mass/v olume] in Serum or Plasma 0.60-1.20 [facility] Eosinophils Auto (Bld) [#/Vo l]Ordered By: Yaritza Bauer on 02-18-2025 Eosinophils (Bld) [#/Vol] Automated eosinophil count 0.0-0.45 [facility] Eosinophils/100 WBC Auto (Bl d)Ordered By: Yaritza Bauer on 02-18-2025 Eosinophils/100 WBC (Bld) Automated eosinophil % . [facility] Erythrocyte distribution wid th Auto (RBC) [Ratio]Ordered By: Yaritza Bauer on 02-18-2025 Erythrocyte distribution width (RBC) [Ratio] Erythrocyte distribution width [Ratio] by Automated count 11.9-15.3 [facility] Fungal Smearon 02-18-2025 Fungal Smear Fungus Smear Results No Yeast Like Elements Seen ---- Trichomonas Screen No Trichomonas Seen Trich Reference Reference range = None Seen PERFORMED BY: [place] [address] PATHOLOGIST [employer]RARIAN SHANITA MÁRQUEZ M.D. Normal [facility] Comment on above: Performed By: #### F S #### [facility] [address] #### GCCHLAMAMP #### [facility] , Fungal smearOrdered By: Neha Bauer on 02-18-2025 Fungus identified Fungus stain Nom (Unsp spec) Fungal smear [facility] Globulin Calc (S) [Mass/Vol] Ordered By: Yaritza Bauer on 02-18-2025 Globulin (S) [Mass/Vol] Serum globulin measurement by calculation (mass/volume) [facility] Glucose [Mass/volume] in Ser um or PlasmaOrdered By: Yaritza Bauer on 02-18-2025 Glucose [Mass/Vol] Glucose [Mass/volume ] in Serum or Plasma 70-100 [facility] Comment on above: ADA recommended refe rence rangeRandom Glucose Reference Range is dependent on time and content of last meal. Glucose of more than 200 mg/dL in a nonstressed, ambulatory subject supports the diagnosis of Diabetes Mellitus. Glucose [Mass/volume] in Uri ne by Test stripOrdered By: Yaritza Bauer on 02-18-2025 Glucose Test strip (U) [Mass/Vol] Glucose [Mass/volume] in Urine by Test strip Normal [facility] HCG ( test) IA.rapi d Ql (U)Ordered By: Yaritza Bauer on 02-18-2025 HCG ( test) Ql (U) Urine human chorionic gonadotropin (hCG) detection by immunoassay High [facility] HCG,Quantitativeon HCG,Quantitative 1673.00 m[iU]/mL Normal [facility] Comment on above: Result Comment: Appr oximate Approximate hCG Gestational Age Range (mIU/ml) (weeks) 0.2-1 5-50 1-2 50-500 2-3 100-5,000 3-4 500-10,000 4-5 1,000-50,000 5-6 10,000-100,000 6-8 15,000-200,000 8-12 10,000-100,000 PERFORMED BY: [place] [address] PATHOLOGIST [employer]RARIAN SHANITA MÁRQUEZ M.D. Performed By: #### F S #### [address] #### GCCHLAMAMP #### [facility] , HCG,Urineon 02-18-2025 Beta HCG ( test) Ql (U) Positive [facility] Comment on above: Order Comment: Name Collection Type:: Clean-Voided Midstream Result Comment: PERF ORMED BY: [place] [address] PATHOLOGIST [employer]RARIAN SHANITA MÁRQUEZ M.D. Performed By: #### U HCG, UA #### [address] Hematocrit Auto (Bld) [Volum e fraction]Ordered By: Yaritza Bauer on 02-18-2025 Hematocrit (Bld) [Volume fraction] Hematocrit [Volume Fraction] of Blood by Automated count 34.0-46.4 [facility] Hemoglobin Test strip Ql (U) Ordered By: Yaritza Bauer on 02-18-2025 Hemoglobin Ql (U) Hemoglobin [Presence ] in Urine by Test strip Negative [facility] Hemoglobin [Mass/volume] in BloodOrdered By: Yaritza Bauer on 02-18-2025 Hemoglobin (Bld) [Mass/Vol] Hemoglobin [Mass/volume] in Blood 11.8-15.4 [facility] Hepatic Panelon 02-18-2025 Albumin [Mass/Vol] 4.3 g/dL Normal 3.5-5.7 [facility] Comment on above: Performed By: #### L IPASE, PT, CBC, HEPATIC, BMP, PTT #### [facility] [address] [place] [address] [place] Albumin/Globulin [Mass ratio] 1.8 {ratio} Normal [facility] Comment on above: Performed By: #### L IPASE, PT, CBC, HEPATIC, BMP, PTT #### [facility] [address] [place] [id number] [place] ALP [Catalytic activity/Vol] 58 U/L Normal 34-104 [facility] Comment on above: Performed By: #### L IPASE, PT, CBC, HEPATIC, BMP, PTT #### [facility] [address] [place] [id number] [place] ALT [Catalytic activity/Vol] 21 U/L Normal 7-52 [facility] Comment on above: Performed By: #### L IPASE, PT, CBC, HEPATIC, BMP, PTT #### [facility] [address] [place] [id number] [place] AST [Catalytic activity/Vol] 21 U/L Normal 13-39 [facility] Comment on above: Performed By: #### L IPASE, PT, CBC, HEPATIC, BMP, PTT #### [facility] [address] [place] [id number] [place] Bilirubin [Mass/Vol] 1.1 mg/dL High 0.3-1.0 [facility] Comment on above: Performed By: #### L IPASE, PT, CBC, HEPATIC, BMP, PTT #### [address] Bilirubin,Indirect 0.8 mg/dL Normal [facility] Comment on above: Performed By: #### L IPASE, PT, CBC, HEPATIC, BMP, PTT #### [address] Bilirubin.indirect [Mass/Vol] 0.30 mg/dL High 0.03-0.18 [facility] Comment on above: Performed By: #### L IPASE, PT, CBC, HEPATIC, BMP, PTT #### [address] Globulin (S) [Mass/Vol] 2.4 g/dL Normal [facility] Comment on above: Performed By: #### L IPASE, PT, CBC, HEPATIC, BMP, PTT #### [address] Protein [Mass/Vol] 6.7 g/dL Normal 6.4-8.9 [facility] Comment on above: Performed By: #### L IPASE, PT, CBC, HEPATIC, BMP, PTT #### [address] INR in Platelet poor plasma by Coagulation assayOrdered By: Yaritza Bauer on 02-18-2025 INR Coag (PPP) [Relative time] INR in Platelet poor plasma by Coagulation assay [facility] Comment on above: INR Therapeutic Rang e A) Pre- and Peroperative OAT started two weeks before surgery. NOT HIP SURGERY: 1.5 - 2.5 HIP SURGERY: 2 - 3B) Primary and secondary prevention of venous THROMBOSIS: 2 - 3C) Active venous thrombosis, pulmonary embolismand prevention of recurrent venous thrombosis: 2 - 3D) Prevention of arterial thromboembolismincluding patients with mechanical heart valves: 3 - 4.5 Ketones Test strip Ql (U)Ord ered By: Yaritza Bauer on 02-18-2025 Ketones Ql (U) Ketones [Presence] i n Urine by Test strip Negative [facility] Leukocyte esterase [Presence ] in Urine by Test stripOrdered By: Yaritza Bauer on 02-18-2025 Leukocyte esterase Test strip Ql (U) Leukocyte esterase [Presence] in Urine by Test strip Negative [facility] Leukocytes [#/volume] correc roe for nucleated erythrocytes in Blood by Automated counOrdered By: Yaritza Bauer on 02-18-2025 WBC corrected for nucl RBC Auto (Bld) [#/Vol] Leukocytes [#/volume] corrected for nucleated erythrocytes in Blood by Automated coun 3.8-11.6 [facility] Lipaseon 02-18-2025 Lipase [Catalytic activity/Vol] 22.0 U/L Normal 11.0-82.0 [facility] Comment on above: Result Comment: PERF ORMED BY: [place] [address] PATHOLOGIST [employer]RARIAN SHANITA MÁRQUEZ M.D. Performed By: #### F S #### [address] #### GCCHLAMAMP #### [facility] , Lipase [Enzymatic activity/v olume] in Serum or PlasmaOrdered By: Yaritza Bauer on 02-18-2025 Lipase [Catalytic activity/Vol] Lipase [Enzymatic activity/volume] in Serum or Plasma 11.0-82.0 [facility] Lymphocytes Auto (Bld) [#/Vo l]Ordered By: Yaritza Bauer on 02-18-2025 Lymphocytes (Bld) [#/Vol] Lymphocytes [#/volume] in Blood by Automated count 1.00-4.8 [facility] Lymphocytes/100 WBC Auto (Bl d)Ordered By: Yaritza Bauer on 02-18-2025 Lymphocytes/100 WBC (Bld) Lymphocytes/100 leukocytes in Blood by Automated count . [facility] MCH Auto (RBC) [Entitic mass ]Ordered By: Yaritza Bauer on 02-18-2025 MCH (RBC) [Entitic mass] MCH [Entitic mass] by Automated count 24.7-34.3 [facility] MCHC Auto (RBC) [Mass/Vol]Or dered By: Yaritza Bauer on 02-18-2025 MCHC (RBC) [Mass/Vol] MCHC [Mass/volume] by Automated count 32.0-35.0 [facility] MCV Auto (RBC) [Entitic vol] Ordered By: Yaritza Bauer on 02-18-2025 MCV (RBC) [Entitic vol] MCV [Entitic volume] by Automated count 80-100 [facility] Monocyte distribution width [Entitic volume] in Blood by AutomatedOrdered By: Yaritza Bauer on 02-18-2025 Monocyte distribution width Auto (Bld) [Entitic vol] Monocyte distribution width [Entitic volume] in Blood by Automated High 0.00-20.00 [facility] Comment on above: For adults in ED, MD W > 20.0 may be associated with a higher risk of sepsis during the first 12 hrs of hospital admission Monocytes Auto (Bld) [#/Vol] Ordered By: Yaritza Bauer on 02-18-2025 Monocytes (Bld) [#/Vol] Automated blood monocyte count 0.0-0.8 [facility] Monocytes/100 WBC Auto (Bld) Ordered By: Yaritza Bauer on 02-18-2025 Monocytes/100 WBC (Bld) Automated monocyte % . [facility] Neutrophils Auto (Bld) [#/Vo l]Ordered By: Yaritza Bauer on 02-18-2025 Neutrophils (Bld) [#/Vol] Neutrophils [#/volume] in Blood by Automated count 1.8-7.7 [facility] Neutrophils/100 WBC Auto (Bl d)Ordered By: Yaritza Bauer on 02-18-2025 Neutrophils/100 WBC (Bld) Automated neutrophil % . [facility] Nitrite Test strip Ql (U)Ord ered By: Yaritza Bauer on 02-18-2025 Nitrite Ql (U) Nitrite [Presence] i n Urine by Test strip Negative [facility] No Panel InformationOrdered By: Yaritza Bauer on 02-18-2025 Estimated GFR (CKD-EPI) > 60.0 mL/Min [facility] Creatinine Clearance (Chem 107.28 [facility] Nucleated erythrocytes [Pres ence] in Blood by Automated countOrdered By: Yaritza Bauer on 02-18-2025 Nucleated RBC Auto Ql (Bld) Nucleated erythrocytes [Presence] in Blood by Automated count 0-0.5 [facility] Partial Thromboplastin Timeo n 02-18-2025 aPTT Coag (Bld) [Time] 29.3 s Normal 25.1-36.5 Th e [facility] Comment on above: Result Comment: A he matocrit value greater than 55% may lead to inaccurate results in coagulation testing. Patients having hematocrit values >55% require a special collection tube for coagulation studies. Please contact the laboratory at [phone] for redraw instructions. PERFORMED BY: [place] [id number] PATHOLOGIST [employer] SHANITA MÁRQUEZ M.D. Performed By: #### F S #### [address] #### GCCHLAMAMP #### [facility] , Platelet mean volume Auto (B ld) [Entitic vol]Ordered By: Yaritza Bauer on 02-18-2025 Platelet mean volume (Bld) [Entitic vol] Platelet mean volume [Entitic volume] in Blood by Automated count 6.3-10.7 [facility] Platelets Auto (Bld) [#/Vol] Ordered By: Yaritza Bauer on 02-18-2025 Platelets (Bld) [#/Vol] Platelets [#/volume] in Blood by Automated count 150-450 [facility] Potassium [Moles/volume] in Serum or PlasmaOrdered By: Yaritza Bauer on 02-18-2025 Potassium [Moles/Vol] Potassium [Moles/v olume] in Serum or Plasma 3.5-5.1 [facility] Protein Test strip (U) [Mass /Vol]Ordered By: Yaritza Bauer on 02-18-2025 Protein (U) [Mass/Vol] Protein [Mass/vol ume] in Urine by Test strip Negative [facility] Protein [Mass/volume] in Ser um or PlasmaOrdered By: Yaritza Bauer on 02-18-2025 Protein [Mass/Vol] Protein [Mass/volume ] in Serum or Plasma 6.4-8.9 [facility] Prothrombin Time INRon 02-18 INR Coag (PPP) [Relative time] 1.1 {INR} Normal [facility] Comment on above: Result Comment: INR Therapeutic Range A) Pre- and Peroperative OAT started two weeks before surgery. NOT HIP SURGERY: 1.5 - 2.5 HIP SURGERY: 2 - 3 B) Primary and secondary prevention of venous THROMBOSIS: 2 - 3 C) Active venous thrombosis, pulmonary embolism and prevention of recurrent venous thrombosis: 2 - 3 D) Prevention of arterial thromboembolism including patients with mechanical heart valves: 3 - 4.5 Performed By: #### F S #### [facility] [address] [place] [address] #### GCCHLAMAMP #### [facility] , PT Coag (PPP) [Time] 12.3 s Normal 9.0-12.9 [facility] Comment on above: Result Comment: A he matocrit value greater than 55% may lead to inaccurate results in coagulation testing. Patients having hematocrit values >55% require a special collection tube for coagulation studies. Please contact the laboratory at [phone] for redraw instructions. Performed By: #### F S #### [facility] [address] [place] [address] [place] #### GCCHLAMAMP #### [facility] , Prothrombin time (PT)Ordered By: Yaritza Bauer on 02-18-2025 PT Coag (PPP) [Time] Prothrombin time (PT) 9.0- 12.9 [facility] Comment on above: A hematocrit value g reater than 55% may lead to inaccurate results in coagulation testing. Patients having hematocrit values >55% require a special collection tube for coagulation studies. Please contact the laboratory at [phone] for redraw instructions. RBC Auto (Bld) [#/Vol]Ordere d By: Yaritza Bauer on 02-18-2025 RBC (Bld) [#/Vol] Erythrocytes [#/volu me] in Blood by Automated count 3.60-5.00 [facility] Serum or plasma albumin/glob ulin mass ratioOrdered By: Yaritza Bauer on 02-18-2025 Albumin/Globulin [Mass ratio] Serum or plasma albumin/globulin mass ratio [facility] Serum or plasma anion gap de terminationOrdered By: Yaritza Bauer on 02-18-2025 Anion gap [Moles/Vol] Serum or plasma an ion gap determination 6.0-15.0 [facility] Serum or plasma non-glucuron idated bilirubin measurement (mass/volume)Ordered By: Yaritza Bauer on 02-18-2025 Bilirubin.indirect [Mass/Vol] Serum or plasma non-glucuronidated bilirubin measurement (mass/volume) [facility] Sodium [Moles/volume] in Ser um or PlasmaOrdered By: Yaritza Bauer on 02-18-2025 Sodium [Moles/Vol] Sodium [Moles/volume ] in Serum or Plasma 136-145 [facility] Specific gravity Test strip (U) [Rel density]Ordered By: Yaritza Bauer on 02-18-2025 Specific gravity (U) [Rel density] Specific gravity of Urine by Test strip 1.001-1.03 0 [facility] Trichomonas vaginalis detect ion by wet preparationOrdered By: Yaritza Bauer on 02-18-2025 T. vaginalis Wet prep Ql (Unsp spec) Trichomonas vaginalis detection by wet preparation [facility] US OB transvaginalon 025 [place] [address] Ultrasound Report Signed Patient: Charis Allen MR#: [id number] : 2000 Acct:[id number] Age/Sex: 24 / F ADM Date: 02/18/25 Loc: ER Room: Type: [facility] ER Attending Dr: Ordering Provider: Yaritza Bauer APRN Date of Service: 02/18/25 US/US OB <= 14 weeks fetus: Abdominal Pain ([id number]) US/US OB transvaginal: R/O ECTOPIC Copies to: Yaritza Bauer APRN Obstetrical ultrasound for fetus less than 14 weeks transabdominal and transvaginal imaging HISTORY: Intermittent left-sided abdominal pain COMPARISON: None Intrauterine sac measures up to 3 mm. No cardiac activity. No yolk sac seen. No pole identified. Anechoic left ovarian cyst measures up to 2.3 cm. Right ovary unremarkable. No adnexal mass. No free fluid. Endometrial complex measures up to 16 mm in total combined thickness. Color and Doppler flow of both ovaries. US/US OB <= 14 weeks fetus IMPRESSION: Intrauterine sac. No cardiac activity, pole or yolk sac seen. No adnexal Mass or free fluid. Left ovarian cyst. May consider very early intrauterine gestation. Follow-up assessment to confirm viable intrauterine gestation recommended. Ectopic not entirely excluded. May also consider serial beta hCG levels. Impression dictated by: Michael Camacho M.D. 02/18/2025 8:45 PM Dictation Location: [facility] Medical Tech: Roselia Cueva Transcribed By: REMINGTON 02/18/252044 Dictated By: Michael Camacho DO 02/18/252034 Signed By: 02/18/252044 Normal [facility] Urea nitrogen [Mass/volume] in Serum or PlasmaOrdered By: Yaritza Bauer on 02-18-2025 Urea nitrogen [Mass/Vol] Urea nitrogen [Mass/volume] in Serum or Plasma 05-02 [facility] Urinalysison 02-18-2025 Appearance (U) Clear Normal Clear [facility] Comment on above: Order Comment: Name Collection Type:: Clean-Voided Midstream Performed By: #### U HCG, UA #### [facility] [address] [place] [address] [place] Bilirubin,Urine Negative Normal Negative [facility] Comment on above: Order Comment: Name Collection Type:: Clean-Voided Midstream Performed By: #### U HCG, UA #### [facility] [address] [place] [id number] [place] Color (U) Yellow Normal Yellow [facility] Comment on above: Order Comment: Name Collection Type:: Clean-Voided Midstream Performed By: #### U HCG, UA #### [place] [address] [place] Glucose Ql (U) Normal Normal Normal [facility] Comment on above: Order Comment: Name Collection Type:: Clean-Voided Midstream Performed By: #### U HCG, UA #### [place] [address] [place] Ketones Ql (U) Negative Normal Negative [facility] Comment on above: Order Comment: Name Collection Type:: Clean-Voided Midstream Performed By: #### U HCG, UA #### [address] Leukocyte esterase Test strip Ql (U) Negative Normal Negative [facility] Comment on above: Order Comment: Name Collection Type:: Clean-Voided Midstream Performed By: #### U HCG, UA #### [place] [address] [place] Nitrite,Urine Negative Normal Negative [facility] Comment on above: Order Comment: Name Collection Type:: Clean-Voided Midstream Performed By: #### U HCG, UA #### [place] [address] [place] Occult Blood,Urine Negative Normal Negative [facility] Comment on above: Order Comment: Name Collection Type:: Clean-Voided Midstream Performed By: #### U HCG, UA #### [place] [id number] [place] pH (U) 6.5 [pH] Normal 5.0-9.0 [facility] Comment on above: Order Comment: Name Collection Type:: Clean-Voided Midstream Performed By: #### U HCG, UA #### [place] [address] [place] Protein,Urine Negative Normal Negative [facility] Comment on above: Order Comment: Name Collection Type:: Clean-Voided Midstream Performed By: #### U HCG, UA #### [place] [id number] [place] Specificy Glenvil,Urine 1.021 Normal 1.001-1.03 0 [facility] Comment on above: Order Comment: Name Collection Type:: Clean-Voided Midstream Performed By: #### U HCG, UA #### [facility] [address] Urobilinogen,Urine Normal Normal Normal [facility] Comment on above: Order Comment: Name Collection Type:: Clean-Voided Midstream Performed By: #### U HCG, UA #### [facility] [address] [place] [id number] [facility] Urobilinogen Test strip (U) [Mass/Vol]Ordered By: Yaritza Bauer on 02-18-2025 Urobilinogen (U) [Mass/Vol] Urobilinogen [Mass/volume] in Urine by Test strip Normal [facility] WBC Auto (Bld) [#/Vol]Ordere d By: Yaritza Bauer on 02-18-2025 WBC (Bld) [#/Vol] Leukocytes [#/volume ] in Blood by Automated count 3.8-11.6 [facility] aPTT in Platelet poor plasma by Coagulation assayOrdered By: Yaritza Bauer on 02-18-2025 aPTT Coag (PPP) [Time] Activated partial thromboplastin time (aPTT) in platelet poor plasma by coagulation a 25.1-36.5 [facility] Comment on above: A hematocrit value g reater than 55% may lead to inaccurate results in coagulation testing. Patients having hematocrit values >55% require a special collection tube for coagulation studies. Please contact the laboratory at [phone] for redraw instructions. pH Test strip (U)Ordered By: Yaritza Bauer on 02-18-2025 pH (U) pH of Urine by Test strip 5.0-9.0 [facility] CBC with Auto Differentialon 01-11-2025 Basophils (Bld) [#/Vol] 0.03 10*3/uL [facility] Basophils/100 WBC (Bld) 1 % 0 - 2 % [facility] Eosinophils (Bld) [#/Vol] 0.03 10*3/uL [facility] Eosinophils/100 WBC (Bld) 1 % 0 - 5 % [facility] Erythrocyte distribution width (RBC) [Ratio] 12.1 % 12.1 - 15.2 % [facility] Hematocrit (Bld) [Volume fraction] 40.6 % 36.0 - 46.0 % [facility] Hemoglobin (Bld) [Mass/Vol] 13.9 g/dL 12.0 - 16.0 g/dL [facility] Immature granulocytes (Bld) [#/Vol] 0 10*3/uL [facility] Immature granulocytes/100 WBC (Bld) 0 % 0 - 5 % [facility] Interpretation and review of laboratory results Abnormal [facility] Lymphocytes/100 WBC (Bld) 30 % 15 - 40 % [facility] Lymphocytes/100 WBC (Bld) 1.94 % [facility] MCH (RBC) [Entitic mass] 31.3 pg 26.0 - 34.0 pg [facility] MCHC (RBC) [Mass/Vol] 34.2 g/dL 31.0 - 37.0 g/dL [facility] MCV (RBC) [Entitic vol] 91.4 fL 80.0 - 100.0 fL [facility] Monocytes/100 WBC (Bld) 9 % High 4 - 8 % [facility] Monocytes/100 WBC (Bld) 0.59 % [facility] Neutrophils/100 WBC (Bld) 59 % 47 - 75 % [facility] Platelet mean volume (Bld) [Entitic vol] 9.8 fL 6.0 - 12.0 fL [facility] Platelets (Bld) [#/Vol] 202 10*3/uL [facility] RBC (Bld) [#/Vol] 4.44 10*6/uL 4.00 - 5.20 m/uL [facility] Segmented neutrophils/100 WBC (Bld) 3.92 % [facility] WBC other (Bld) [#/Vol] 6.5 [facility] CBC with Diffon 01-11-2025 Abs. Basophil 0.03 k/uL Normal 0.00-0.20 [facility] Comment on above: Performed By: #### C DP, HCG, CP #### [facility] [address] [place] [phone] Air Quality Manager: Caden Brown MD Abs.Imm.Granulocyte 0.00 k/uL Normal 0.00-0.30 [facility] Comment on above: Performed By: #### C DP, HCG, CP #### [facility] [address] [place] [address] Air Quality Manager: Caden Brown MD Abs.Neutrophil (Seg) 3.92 k/uL Normal 2.5-7.0 [facility] Comment on above: Performed By: #### C DP, HCG, CP #### [facility] [address] [place] [phone] Air Quality Manager: Caden Brown MD Basophils/100 WBC (Bld) 1 % Normal 0-2 [facility] Comment on above: Performed By: #### C DP, HCG, CP #### [facility] [address] [place] [address] Air Quality Manager: Caden Brown MD Eosinophils (Bld) [#/Vol] 0.03 10*3/uL Normal 0.00-0.40 [facility] Comment on above: Performed By: #### C DP, HCG, CP #### [facility] [address] [place] [phone] Air Quality Manager: Caden Brown MD Eosinophils/100 WBC (Bld) 1 % Normal 0-5 [facility] Comment on above: Performed By: #### C DP, HCG, CP #### [facility] [address] [phone] Air Quality Manager: Caden Brown MD Erythrocyte distribution width (RBC) [Ratio] 12.1 % Normal 12.1-15.2 [facility] Comment on above: Performed By: #### C DP, HCG, CP #### [facility] [address] [phone] Air Quality Manager: Caden Brown MD Hematocrit (Bld) [Volume fraction] 40.6 % Normal 36.0-46.0 [facility] Comment on above: Performed By: #### C DP, HCG, CP #### [facility] [address] [place] [phone] Air Quality Manager: Caden Brown MD Hemoglobin (Bld) [Mass/Vol] 13.9 g/dL Normal 12.0-16.0 [facility] Comment on above: Performed By: #### C DP, HCG, CP #### [facility] [address] [place] [address] Air Quality Manager: Caden Brown MD Immature granulocytes/100 WBC (Bld) 0 % Normal 0-5 [facility] Comment on above: Performed By: #### C DP, HCG, CP #### [facility] [address] [place] [address] Air Quality Manager: Caden Brown MD Lymphocytes (Bld) [#/Vol] 1.94 10*3/uL Normal 1.00-4.80 [facility] Comment on above: Performed By: #### C DP, HCG, CP #### [facility] [address] [place] [phone] Air Quality Manager: Caden Brown MD Lymphocytes/100 WBC (Bld) 30 % Normal 15-40 [facility] Comment on above: Performed By: #### C DP, HCG, CP #### [facility] [address] [place], [place] [phone] Air Quality Manager: Caden Brown MD MCH (RBC) [Entitic mass] 31.3 pg Normal 26.0-34.0 [facility] Comment on above: Performed By: #### C DP, HCG, CP #### [facility] [address] [place] [phone] Air Quality Manager: Caden Brown MD MCHC (RBC) [Mass/Vol] 34.2 g/dL Normal 31.0-37.0 [facility] Comment on above: Performed By: #### C DP, HCG, CP #### [facility] [address] [place], [place] [phone] ([phone] Air Quality Manager: Caden Brown MD MCV (RBC) [Entitic vol] 91.4 fL Normal 80.0-100.0 [facility] Comment on above: Performed By: #### C DP, HCG, CP #### [facility] [address] [place], [place] [phone] Air Quality Manager: Caden Brown MD Monocytes (Bld) [#/Vol] 0.59 10*3/uL Normal 0.00-1.00 [facility] Comment on above: Performed By: #### C DP, HCG, CP #### [facility] [address] [place] [address] Air Quality Manager: Caden Brown MD Monocytes/100 WBC (Bld) 9 % High 4-8 [facility] Comment on above: Performed By: #### C DP, HCG, CP #### [facility] [address] [place], [place] [phone] Air Quality Manager: Caden Brown MD Neutrophil (Seg) 59 % Normal 47-75 [facility] Comment on above: Performed By: #### C DP, HCG, CP #### [facility] [address] [place] [address] Air Quality Manager: Caden Brown MD Platelet mean volume (Bld) [Entitic vol] 9.8 fL Normal 6.0-12.0 [facility] Comment on above: Performed By: #### C DP, HCG, CP #### [facility] [address] [place], [place] [phone] Air Quality Manager: Caden Brown MD Platelets (Bld) [#/Vol] 202 10*3/uL Normal 140-450 [facility] Comment on above: Performed By: #### C DP HCG, CP #### [facility] [address] [place] [address] Air Quality Manager: Caden Brown MD RBC (Bld) [#/Vol] 4.44 10*6/uL Normal 4.00-5.20 [facility] Comment on above: Performed By: #### C DP, HCG, CP #### [facility] [address] [place] [address] Air Quality Manager: Caden Brown MD WBC (Bld) [#/Vol] 6.5 10*3/uL Normal 3.5-11.0 [facility] Comment on above: Performed By: #### C DP, HCG, CP #### [facility] [address] [place] [address] Air Quality Manager: Caden Brown MD [facility] Albumin [Mass/Vol] 4.5 g/dL 3.5 - 5.2 g/dL [facility] Albumin/Globulin [Mass ratio] 1.9 {ratio} 1.0 - 2.5 [facility] ALP [Catalytic activity/Vol] 78 U/L 35 - 104 U/L [facility] ALT [Catalytic activity/Vol] 22 U/L 5 - 33 U/L [facility] Anion gap [Moles/Vol] 10 mmol/L 9 - 17 mmol/L [facility] AST [Catalytic activity/Vol] 26 U/L NINF - 32 U/L [facility] Bilirubin [Mass/Vol] 1 mg/dL 0.3 - 1 .2 mg/dL [facility] Calcium [Mass/Vol] 9.2 mg/dL 8.6 - 10. 4 mg/dL [facility] Chloride [Moles/Vol] 102 mmol/L 98 - 10 7 mmol/L [facility] CO2 [Moles/Vol] 26 mmol/L 20 - 31 mmol/L [facility] Creatinine [Mass/Vol] 0.8 mg/dL 0.5 - 0.9 mg/dL [facility] Est, Radhames Campos Rate - PINF [facility] Comment on above: These results are [...] that affects renal tubular secretion. Glucose [Mass/Vol] 90 mg/dL 70 - 99 mg/dL [facility] Interpretation and review of laboratory results Abnormal [facility] Potassium [Moles/Vol] 3.5 mmol/L Low 3.7 - 5.3 mmol/L [facility] Protein [Mass/Vol] 6.9 g/dL 6.4 - 8.3 g/dL [facility] Sodium [Moles/Vol] 138 mmol/L 135 - 144 mmol/L [facility] Urea nitrogen [Mass/Vol] 9 mg/dL 6 - 20 mg/dL [facility] Comp Metabolic Profon 2024 Albumin [Mass/Vol] 4.5 g/dL Normal 3.5-5.2 [facility] Comment on above: Performed By: #### C DP, HCG, CP #### [facility] [address] [place] [address] Air Quality Manager: Caden Brown MD Albumin/Glob Ratio 1.9 Normal 1.0-2.5 [facility] Comment on above: Performed By: #### C DP, HCG, CP #### [facility] [address] [place] [address] Air Quality Manager: Caden Brown MD Alkaline Phos 78 U/L Normal 35-104 [facility] Comment on above: Performed By: #### C DP, HCG, CP #### [facility] [address] [place] [address] Air Quality Manager: Caden Brown MD ALT [Catalytic activity/Vol] 22 U/L Normal 5-33 [facility] Comment on above: Performed By: #### C DP, HCG, CP #### [facility] [address] [place] [address] Air Quality Manager: Caden Brown MD Anion gap [Moles/Vol] 10 mmol/L Normal 9-17 [facility] Comment on above: Performed By: #### C DP, HCG, CP #### [facility] [address] [place] [address] Air Quality Manager: Caden Brown MD AST [Catalytic activity/Vol] 26 U/L Normal <32 [facility] Comment on above: Performed By: #### C DP, HCG, CP #### [facility] [address] [place] [address] Air Quality Manager: Caden Brown MD Bilirubin [Mass/Vol] 1.0 mg/dL Normal 0.3-1.2 [facility] Comment on above: Performed By: #### C DP, HCG, CP #### [facility] [address] [place] [address] Air Quality Manager: Caden Brown MD Calcium [Mass/Vol] 9.2 mg/dL Normal 8.6-10.4 [facility] Comment on above: Performed By: #### C DP, HCG, CP #### [facility] [address] [place] [address] Air Quality Manager: Caden Brown MD Chloride [Moles/Vol] 102 mmol/L Normal 98-107 [facility] Comment on above: Performed By: #### C DP, HCG, CP #### [facility] [address] [place] [address] Air Quality Manager: Caden Brown MD CO2 [Moles/Vol] 26 mmol/L Normal 20-31 [facility] Comment on above: Performed By: #### C DP, HCG, CP #### [facility] [address] [place], [place] [phone] Air Quality Manager: Caden Brown MD Creatinine [Mass/Vol] 0.8 mg/dL Normal 0.5-0.9 [facility] Comment on above: Performed By: #### C DP, HCG, CP #### [facility] [address] [place] [address] Air Quality Manager: Caden Brown MD GFR/1.73 sq M.predicted among non-blacks MDRD (S/P/Bld) [Vol rate/Area] mL/min/{1.73_m2} Normal >60 [facility] Comment on above: Result Comment: These results [...] affects renal tubular secretion. Performed By: #### C DP, HCG, CP #### [facility] [address] [place], [place] [phone] Air Quality Manager: Caden Brown MD Glucose [Mass/Vol] 90 mg/dL Normal 70-99 [facility] Comment on above: Performed By: #### C DP, HCG, CP #### [facility] [address] [place], [place] [phone] Air Quality Manager: Caden Brown MD Potassium [Moles/Vol] 3.5 mmol/L Low 3.7-5.3 [facility] Comment on above: Performed By: #### C DP, HCG, CP #### [facility] [address] [place], [place] [phone] Air Quality Manager: Caden Brown MD Protein [Mass/Vol] 6.9 g/dL Normal 6.4-8.3 [facility] Comment on above: Performed By: #### C DP, HCG, CP #### [facility] [address] [place], [place] [phone] Air Quality Manager: Caden Brown MD Sodium [Moles/Vol] 138 mmol/L Normal 135-144 [facility] Comment on above: Performed By: #### C DP, HCG, CP #### [facility] [address] [place], [place] [phone] Air Quality Manager: Caden Brown MD Urea nitrogen [Mass/Vol] 9 mg/dL Normal 6-20 [facility] Comment on above: Performed By: #### C DP, HCG, CP #### [facility] [address] [place], [place] [phone] Air Quality Manager: Caden Brown MD Glucose, Whole Bloodon 01-11 Glucose [Mass/Vol] 108 mg/dL High 65 - 99 mg/dL [facility] Interpretation and review of laboratory results Abnormal [facility] Glucose,Whole Bloodon 2024 Glucose [Mass/Vol] 108 mg/dL High 65-99 [facility] HCG Qualitative, Serumon HCG ( test) Ql Negative NEGATIVE [facility] Comment on above: Specimens with hCG l evels near the threshold of the test (25 mIU/mL) may give a negative or indeterminate result. In such cases, another test should be performed with a new specimen in 48-72 hours. If early is suspected clinically in this setting, correlation with quantitative serum b-hCG level is suggested. [employer] has confirmed the use of plasma for this test. This has not been cleared or approved by the U.S. Food and Drug Administration. The FDA has determined that such clearance is not necessary. [facility] HCG Screen, Bloodon 01-12-20 25 HCG Screen, Blood Negative Normal NEG [facility] Comment on above: Result Comment: Spec imens with hCG levels near the threshold of the test (25 mIU/mL) may give a negative or indeterminate result. In such cases, another test should be performed with a new specimen in 48-72 hours. If early is suspected clinically in this setting, correlation with quantitative serum b-hCG level is suggested. [facility] has confirmed the use of plasma for this test. This has not been cleared or approved by the U.S. Food and Drug Administration. The FDA has determined that such clearance is not necessary. Performed By: #### C DP, HCG, CP #### [facility] [address] [place] [address] Air Quality Manager: Caden Brown MD HCG.beta subunit IA 3rd IS Q non 12-13-2024 HCG.beta subunit Qn 384 m[IU]/mL Normal [facility] Comment on above: Result Comment: NEW REFERENCE RANGE WEEKS (SINCE LMP) MIU/mL 3 WEEKS 5 - 50 4 WEEKS 5 - 426 5 WEEKS 18 - 7,340 6 WEEKS 1,080 - 56,500 7-8 WEEKS 7,650 - 229,000 9-12 WEEKS 25,700 - 288,000 13-16 WEEKS 13,300 - 254,000 17-24 WEEKS 4,060 - 165,400 25-40 WEEKS 3,640 - 117,000 MALES AND NON- FEMALES - <5 MIU/mL This test has been FDA approved for use in only. Elevated levels are not necessarily diagnostic for trophoblastic or nontrophoblastic neoplasms. Performed By: #### 2 0415-6 #### [facility] ([id number]) [address] [place] [phone] URINALYSISon 12-13-2024 Bilirubin Ql (U) Negative Normal NEG [facility] Comment on above: Performed By: #### U A #### [facility] ([id number]) [address] [place] [address] BLOOD/HGB Large Abnormal NEG [facility] Comment on above: Performed By: #### U A #### [facility] ([id number]) [address] [place] [address] Color (U) YELLOW Normal YELLOW [facility] Comment on above: Performed By: #### U A #### [facility] ([id number]) [address] [place] [address] Glucose Ql (U) Negative Normal NEG [facility] Comment on above: Performed By: #### U A #### [facility] ([id number]) [address] [place] [address] Ketones Ql (U) Negative Normal NEG [facility] Comment on above: Performed By: #### U A #### [facility] ([id number]) [address] [place] [address] Leukocyte esterase Test strip Ql (U) Negative Normal NEG [facility] Comment on above: Performed By: #### U A #### [facility] ([id number]) [address] [place] [address] Nitrite Ql (U) Negative Normal NEG [facility] Comment on above: Performed By: #### U A #### [facility] ([id number]) [address] [place] [address] pH (U) 7.0 [pH] Normal 5.0-8.5 [facility] Comment on above: Performed By: #### U A #### [facility] ([id number]) [address] [place] [address] Protein Ql (U) Negative Normal NEG [facility] Comment on above: Performed By: #### U A #### [facility] ([id number]) [address] [place] [address] [id number] R.B.CELLS 5 /hpf Normal 0-5 [facility] Comment on above: Performed By: #### U A #### [facility] ([id number]) [address] [place] [address] [id number] Specific gravity (U) [Rel density] 1.020 Normal 1.003-1.03 5 [facility] Comment on above: Performed By: #### U A #### [facility] ([id number]) [address] [place] [address] 21624 SQUAMOUS EPITHELIUM 8 /hpf High 0-5 [facility] Comment on above: Performed By: #### U A #### [facility] ([id number]) [address] [place] [address] 66683 TRANSITIONAL EPITH 1 /hpf High 0 [facility] Comment on above: Performed By: #### U A #### [facility] ([id number]) [address] [place] [address] 78844 TURBIDITY CLEAR Normal CLEAR [facility] Comment on above: Performed By: #### U A #### [facility] ([id number]) [address] [place] [address] 75738 Urobilinogen Qn (U) 0.2 {Ludwig'U}/dL Normal <1.1 [facility] Comment on above: Performed By: #### U A #### [facility] ([id number]) [address] [place] [address] 73848 W.B.CELLS 0 /hpf Normal 0-5 [facility] Comment on above: Performed By: #### U A #### [facility] ([id number]) [address] [place] [address] 95893 CBC with Auto Differentialon 12-01-2024 Basophils (Bld) [#/Vol] 0.03 10*3/uL [facility] Basophils/100 WBC (Bld) 0 % 0 - 2 % [facility] Eosinophils (Bld) [#/Vol] 0.04 10*3/uL [facility] Eosinophils/100 WBC (Bld) 1 % 0 - 5 % [facility] Erythrocyte distribution width (RBC) [Ratio] 11.8 % Low 12.1 - 15.2 % [facility] Hematocrit (Bld) [Volume fraction] 38.2 % 36.0 - 46.0 % [facility] Hemoglobin (Bld) [Mass/Vol] 13.0 g/dL 12.0 - 16.0 g/dL [facility] Immature granulocytes (Bld) [#/Vol] 0.01 10*3/uL [facility] Immature granulocytes/100 WBC (Bld) 0 % 0 - 5 % [facility] Interpretation and review of laboratory results Abnormal [facility] Lymphocytes/100 WBC (Bld) 24 % 15 - 40 % [facility] Lymphocytes/100 WBC (Bld) 1.98 % [facility] MCH (RBC) [Entitic mass] 30.9 pg 26.0 - 34.0 pg [facility] MCHC (RBC) [Mass/Vol] 34.0 g/dL 31.0 - 37.0 g/dL [facility] MCV (RBC) [Entitic vol] 90.7 fL 80.0 - 100.0 fL [facility] Monocytes/100 WBC (Bld) 10 % High 4 - 8 % [facility] Monocytes/100 WBC (Bld) 0.80 % [facility] Neutrophils/100 WBC (Bld) 65 % 47 - 75 % [facility] Platelet mean volume (Bld) [Entitic vol] 9.3 fL 6.0 - 12.0 fL [facility] Platelets (Bld) [#/Vol] 238 10*3/uL [facility] RBC (Bld) [#/Vol] 4.21 10*6/uL 4.00 - 5.20 m/uL [facility] Segmented neutrophils/100 WBC (Bld) 5.44 % [facility] WBC other (Bld) [#/Vol] 8.3 [facility] CBC with Diffon 12-01-2024 Abs. Basophil 0.03 k/uL Normal 0.00-0.20 [facility] Comment on above: Performed By: #### C DP, CP #### [facility] [address] [place], [place] [phone] Air Quality Manager: Caden Brown MD Abs.Imm.Granulocyte 0.01 k/uL Normal 0.00-0.30 [facility] Comment on above: Performed By: #### C DP, CP #### [facility] [address] [place] [address] Air Quality Manager: Caden Brown MD Abs.Neutrophil (Seg) 5.44 k/uL Normal 2.5-7.0 [facility] Comment on above: Performed By: #### C DP, CP #### [facility] [address] [place] [phone] Air Quality Manager: Caden Brown MD Basophils/100 WBC (Bld) 0 % Normal 0-2 [facility] Comment on above: Performed By: #### C DP, CP #### [facility] [address] [place] [phone] Air Quality Manager: Caden Brown MD Eosinophils (Bld) [#/Vol] 0.04 10*3/uL Normal 0.00-0.40 [facility] Comment on above: Performed By: #### C DP, CP #### [facility] [address] [place] [phone] Air Quality Manager: Caden Brown MD Eosinophils/100 WBC (Bld) 1 % Normal 0-5 [facility] Comment on above: Performed By: #### C DP, CP #### [facility] [address] [place], [place] [phone] Air Quality Manager: Caden Brown MD Erythrocyte distribution width (RBC) [Ratio] 11.8 % Low 12.1-15.2 [facility] Comment on above: Performed By: #### C DP, CP #### [facility] [address] [place] [phone] Air Quality Manager: Caden Brown MD Hematocrit (Bld) [Volume fraction] 38.2 % Normal 36.0-46.0 [facility] Comment on above: Performed By: #### C DP, CP #### [facility] [address] [place] [phone] Air Quality Manager: Caden Brown MD Hemoglobin (Bld) [Mass/Vol] 13.0 g/dL Normal 12.0-16.0 [facility] Comment on above: Performed By: #### C DP, CP #### [facility] [address] [place] [phone] Air Quality Manager: Caden Brown MD Immature granulocytes/100 WBC (Bld) 0 % Normal 0-5 [facility] Comment on above: Performed By: #### C DP, CP #### [facility] [address] [place] [phone] Air Quality Manager: Caden Brown MD Lymphocytes (Bld) [#/Vol] 1.98 10*3/uL Normal 1.00-4.80 [facility] Comment on above: Performed By: #### C DP, CP #### [facility] [address] [place] [phone] Air Quality Manager: Caden Brown MD Lymphocytes/100 WBC (Bld) 24 % Normal 15-40 [facility] Comment on above: Performed By: #### C DP, CP #### [facility] [address] [place] [address] Air Quality Manager: Caden Brown MD MCH (RBC) [Entitic mass] 30.9 pg Normal 26.0-34.0 [facility] Comment on above: Performed By: #### C DP, CP #### [facility] [address] [place] [address] Air Quality Manager: Caden Brown MD MCHC (RBC) [Mass/Vol] 34.0 g/dL Normal 31.0-37.0 [facility] Comment on above: Performed By: #### C DP, CP #### [facility] [address] [place] [address] Air Quality Manager: Caden Brown MD MCV (RBC) [Entitic vol] 90.7 fL Normal 80.0-100.0 [facility] Comment on above: Performed By: #### C DP, CP #### [facility] [address] [place] [address] Air Quality Manager: Caden Brown MD Monocytes (Bld) [#/Vol] 0.80 10*3/uL Normal 0.00-1.00 [facility] Comment on above: Performed By: #### C DP, CP #### [facility] [address] [place] [address] Air Quality Manager: Caden Brown MD Monocytes/100 WBC (Bld) 10 % High 4-8 [facility] Comment on above: Performed By: #### C DP, CP #### [facility] [address] [place] [address] Air Quality Manager: Caedn Brown MD Neutrophil (Seg) 65 % Normal 47-75 [facility] Comment on above: Performed By: #### C DP, CP #### [facility] [address] [place] [address] Air Quality Manager: Caden Brown MD Platelet mean volume (Bld) [Entitic vol] 9.3 fL Normal 6.0-12.0 [facility] Comment on above: Performed By: #### C DP, CP #### [facility] [address] [place], [place] [phone] Air Quality Manager: Caden Brown MD Platelets (Bld) [#/Vol] 238 10*3/uL Normal 140-450 [facility] Comment on above: Performed By: #### C DP, CP #### [facility] [address] [place], [place] [phone] ([phone] Air Quality Manager: Caden Brown MD RBC (Bld) [#/Vol] 4.21 10*6/uL Normal 4.00-5.20 [facility] Comment on above: Performed By: #### C DP, CP #### [facility] [address] [place] [address] Air Quality Manager: Caden Brown MD WBC (Bld) [#/Vol] 8.3 10*3/uL Normal 3.5-11.0 [facility] Comment on above: Performed By: #### C DP, CP #### [facility] [address] [place], [place] [phone] Air Quality Manager: Caden Brown MD Comp Metabolic Profon 2024 Albumin [Mass/Vol] 4.2 g/dL Normal 3.5-5.2 [facility] Comment on above: Performed By: #### C DP, CP #### [facility] [address] [place], [place] [phone] Air Quality Manager: Caden Brown MD Albumin/Glob Ratio 1.8 Normal 1.0-2.5 [facility] Comment on above: Performed By: #### C DP, CP #### [facility] [address] [place], [place] [phone] Air Quality Manager: Caden Brown MD Alkaline Phos 61 U/L Normal 35-104 [facility] Comment on above: Performed By: #### C DP, CP #### [facility] [address] [place], [place] [phone] Air Quality Manager: Caden Brown MD ALT [Catalytic activity/Vol] 27 U/L Normal 5-33 [facility] Comment on above: Performed By: #### C DP, CP #### [facility] [address] [place], [place] [phone] Air Quality Manager: Caden Brown MD Anion gap [Moles/Vol] 10 mmol/L Normal 9-17 [facility] Comment on above: Performed By: #### C DP, CP #### [facility] [address] [place], [place] [phone] Air Quality Manager: Caden Brown MD AST [Catalytic activity/Vol] 24 U/L Normal <32 [facility] Comment on above: Performed By: #### C DP, CP #### [facility] [address] [place], [place] [phone] Air Quality Manager: Caden Brown MD Bilirubin [Mass/Vol] 1.2 mg/dL Normal 0.3-1.2 [facility] Comment on above: Performed By: #### C DP, CP #### [facility] [address] [place] [address] Air Quality Manager: Caden Brown MD Calcium [Mass/Vol] 9.1 mg/dL Normal 8.6-10.4 [facility] Comment on above: Performed By: #### C DP, CP #### [facility] [address] [place], [place] [phone] Air Quality Manager: Caden Brown MD Chloride [Moles/Vol] 105 mmol/L Normal 98-107 [facility] Comment on above: Performed By: #### C DP, CP #### [facility] [address] [place] [address] Air Quality Manager: Caden Brown MD CO2 [Moles/Vol] 24 mmol/L Normal 20-31 [facility] Comment on above: Performed By: #### C DP, CP #### [facility] [address] [place] [address] Air Quality Manager: Caden Brown MD Creatinine [Mass/Vol] 0.7 mg/dL Normal 0.5-0.9 [facility] Comment on above: Performed By: #### C DP, CP #### [facility] [address] [place] [address] Air Quality Manager: Caden Brown MD GFR/1.73 sq M.predicted among non-blacks MDRD (S/P/Bld) [Vol rate/Area] mL/min/{1.73_m2} Normal >60 [facility] Comment on above: Result Comment: These results [...] affects renal tubular secretion. Performed By: #### C DP, CP #### [facility] [address] [place] [address] Air Quality Manager: Caden Brown MD Glucose [Mass/Vol] 64 mg/dL Low 70-99 [facility] Comment on above: Performed By: #### C DP, CP #### [facility] [address] [place] [address] Air Quality Manager: Caden Brown MD Potassium [Moles/Vol] 3.6 mmol/L Low 3.7-5.3 [facility] Comment on above: Performed By: #### C DP, CP #### [facility] [address] [place] [address] Air Quality Manager: Caden Brown MD Protein [Mass/Vol] 6.5 g/dL Normal 6.4-8.3 [facility] Comment on above: Performed By: #### C DP, CP #### [facility] [address] [place], [place] [phone] Air Quality Manager: Caden Brown MD Sodium [Moles/Vol] 139 mmol/L Normal 135-144 [facility] Comment on above: Performed By: #### C DP, CP #### [facility] [address] [place] [address] Air Quality Manager: Caden Brown MD Urea nitrogen [Mass/Vol] 15 mg/dL Normal 6-20 [facility] Comment on above: Performed By: #### C DP, CP #### [facility] [address] [place] [address] Air Quality Manager: Caden Brown MD Comprehensive Metabolic Pane [facility] 12-01-2024 Albumin [Mass/Vol] 4.2 g/dL 3.5 - 5.2 g/dL [facility] Albumin/Globulin [Mass ratio] 1.8 {ratio} 1.0 - 2.5 [facility] ALP [Catalytic activity/Vol] 61 U/L 35 - 104 U/L [facility] ALT [Catalytic activity/Vol] 27 U/L 5 - 33 U/L [facility] Anion gap [Moles/Vol] 10 mmol/L 9 - 17 mmol/L [facility] AST [Catalytic activity/Vol] 24 U/L NINF - 32 U/L [facility] Bilirubin [Mass/Vol] 1.2 mg/dL 0.3 - 1 .2 mg/dL [facility] Calcium [Mass/Vol] 9.1 mg/dL 8.6 - 10. 4 mg/dL [facility] Chloride [Moles/Vol] 105 mmol/L 98 - 10 7 mmol/L [facility] CO2 [Moles/Vol] 24 mmol/L 20 - 31 mmol/L [facility] Creatinine [Mass/Vol] 0.7 mg/dL 0.5 - 0.9 mg/dL [facility] Est, Glom Filt Rate - PINF [facility] Comment on above: These results are [...] that affects renal tubular secretion. Glucose [Mass/Vol] 64 mg/dL Low 70 - 99 mg/dL [facility] Interpretation and review of laboratory results Abnormal [facility] Potassium [Moles/Vol] 3.6 mmol/L Low 3.7 - 5.3 mmol/L [facility] Protein [Mass/Vol] 6.5 g/dL 6.4 - 8.3 g/dL [facility] Sodium [Moles/Vol] 139 mmol/L 135 - 144 mmol/L [facility] Urea nitrogen [Mass/Vol] 15 mg/dL 6 - 20 mg/dL [facility] HCG, Quanton 12-01-2024 HCG, Quant 1440.0 mIU/mL High <5 [facility] Comment on above: Result Comment: Non-preg premeno <=5 Postmeno <=8 Male <=3 If HCG results do not concur with clinical observations, additional testing to confirm results is recommended. Performed By: #### B HCG ####[facility] [id number] [place] [address] lab Director: Caden Brown MD HCG, Quantitative, on 12-01-2024 HCG.beta subunit Qn 1440.0 m[IU]/mL [facility] Comment on above: Non-preg premeno <=5 Postmeno <=8 Male <=3 If HCG results do not concur with clinical observations, additional testing to confirm results is recommended. Interpretation and review of laboratory results Abnormal [facility] Urinalysison 12-01-2024 Bilirubin Ql (U) Negative NEGATIVE [facility] Clarity (U) Clear Clear [facility] Color (U) Yellow Yellow [facility] Comment [facility] Glucose Test strip (U) [Mass/Vol] Negative NEGATIVE mg/dL [facility] Hemoglobin Auto test strip Ql (U) Negative NEGATIVE [facility] Ketones (U) [Mass/Vol] Negative NEGAT WOODY mg/dL [facility] Leukocyte esterase Test strip Ql (U) Negative NEGATIVE [facility] Nitrite Ql (U) Negative NEGATIVE [facility] pH (U) 8.0 [pH] 5.0 - 8.0 [facility] Protein (U) [Mass/Vol] Negative NEGAT WOODY mg/dL [facility] Specific gravity (U) [Rel density] 1.015 1.005 - 1.030 [facility] Urobilinogen Qn (U) Normal 0.0 - 1. 0 EU/dL [facility] Urinalysis, Routineon 2024 Bilirubin, SemiQt,Ur Negative Normal NEG [facility] Comment on above: Performed By: #### U A ####[facility] [id number] [place] [address] lab Director: Caden Brown MD Blood, Urine Negative Normal NEG [facility] Comment on above: Performed By: #### U A ####[facility] [id number] [place], [place] [phone] lab Director: Caden Brown MD Clarity (U) Clear Normal CLEAR [facility] Comment on above: Performed By: #### U A ####[facility] [id number] [place], [place] 1868[address] lab Director: Caden Brown MD Color (U) Yellow Normal YEL [facility] Comment on above: Performed By: #### U A ####[facility] [id number] [place], [place] [id number] lab Director: Caden Brown MD Comment Normal [facility] Comment on above: Performed By: #### U A ####[facility] [address] [place] [address] Lab Director: Caden Brown MD Glucose Ql (U) Negative Normal NEG [facility] Comment on above: Performed By: #### U A ####[facility] [id number] [place] [address] Lab Director: Caden Brown MD Ketones Ql (U) Negative Normal NEG [facility] Comment on above: Performed By: #### U A ####[facility] [id number] [place] [address] lab Director: Caden Brown MD Leukocyte esterase Test strip Ql (U) Negative Normal NEG [facility] Comment on above: Performed By: #### U A ####[facility] [id number] [place] [address] Lab Director: Caden Brown MD Nitrite,Ur Negative Normal NEG [facility] Comment on above: Performed By: #### U A ####[facility] [id number] [place] [address] Lab Director: Caden Brown MD PH,Ur 8.0 Normal 5.0-8.0 [facility] Comment on above: Performed By: #### U A ####[facility] [id number] [place] [address] Lab Director: Caden Brown MD Protein Ql (U) Negative Normal NEG [facility] Comment on above: Performed By: #### U A ####[facility] [id number] [place] [address] Lab Director: Caden Brown MD Spec. Glenvil,Ur 1.015 Normal 1.005-1.03 0 [facility] Comment on above: Performed By: #### U A ####[facility] [id number] [place] [address] lab Director: Caden Brown MD Urobilinogen,Ur Normal Normal 0.0-1.0 [facility] Comment on above: Performed By: #### U A ####[facility] [id number] [place] [address] lab Director: Caden Brown MD TBH PREG QUANT HCGon 025 HCG QUANTITATIVE 759 mIU/mL [facility] Comment on above: 5-50 0.2-1 WEEK 50-500 1-2 WEEKS 100-5,000 2-3 WEEKS 500-10,000 3-4 WEEKS 1,000-50,000 4-5 WEEKS 10,000-100,000 5-6 WEEKS 15,000-200,000 6-8 WEEKS 10,000-100,000 2-3 [facility] CBC with Auto Differentialon 11-16-2024 Basophils (Bld) [#/Vol] 0.01 10*3/uL [facility] Basophils/100 WBC (Bld) 0 % 0 - 2 % [facility] Eosinophils (Bld) [#/Vol] 0.01 10*3/uL [facility] Eosinophils/100 WBC (Bld) 0 % 0 - 5 % [facility] Erythrocyte distribution width (RBC) [Ratio] 12.2 % 12.1 - 15.2 % [facility] Hematocrit (Bld) [Volume fraction] 43.3 % 36.0 - 46.0 % [facility] Hemoglobin (Bld) [Mass/Vol] 14.9 g/dL 12.0 - 16.0 g/dL [facility] Immature granulocytes (Bld) [#/Vol] 0.01 10*3/uL [facility] Immature granulocytes/100 WBC (Bld) 0 % 0 - 5 % [facility] Interpretation and review of laboratory results Abnormal [facility] Lymphocytes/100 WBC (Bld) 15 % 15 - 40 % [facility] Lymphocytes/100 WBC (Bld) 1.82 % [facility] MCH (RBC) [Entitic mass] 31.1 pg 26.0 - 34.0 pg [facility] MCHC (RBC) [Mass/Vol] 34.4 g/dL 31.0 - 37.0 g/dL [facility] MCV (RBC) [Entitic vol] 90.4 fL 80.0 - 100.0 fL [facility] Monocytes/100 WBC (Bld) 4 % 4 - 8 % [facility] Monocytes/100 WBC (Bld) 0.43 % [facility] Neutrophils/100 WBC (Bld) 81 % High 47 - 75 % [facility] Platelet mean volume (Bld) [Entitic vol] 9.6 fL 6.0 - 12.0 fL [facility] Platelets (Bld) [#/Vol] 243 10*3/uL [facility] RBC (Bld) [#/Vol] 4.79 10*6/uL 4.00 - 5.20 m/uL [facility] Segmented neutrophils/100 WBC (Bld) 9.54 % High [facility] WBC other (Bld) [#/Vol] 11.8 High [facility] CBC with Diffon 11-16-2024 Abs. Basophil 0.01 k/uL Normal 0.00-0.20 [facility] Comment on above: Performed By: #### L IP, CP, HCG, CDP, TROPI #### [facility] [address] [place] [address] Air Quality Manager: Caden Brown MD Abs.Imm.Granulocyte 0.01 k/uL Normal 0.00-0.30 [facility] Comment on above: Performed By: #### L IP, CP, HCG, CDP, TROPI #### [facility] [address] [place] [address] Air Quality Manager: Caden Brown MD Abs.Neutrophil (Seg) 9.54 k/uL High 2.5-7.0 [facility] Comment on above: Performed By: #### L IP, CP, HCG, CDP, TROPI #### [facility] [address] [place] [phone] Air Quality Manager: Caden Brown MD Basophils/100 WBC (Bld) 0 % Normal 0-2 [facility] Comment on above: Performed By: #### L IP, CP, HCG, CDP, TROPI #### [facility] [address] [place] [phone] Air Quality Manager: Caden Brown MD Eosinophils (Bld) [#/Vol] 0.01 10*3/uL Normal 0.00-0.40 [facility] Comment on above: Performed By: #### L IP, CP, HCG, CDP, TROPI #### [facility] [address] [place] [address] Air Quality Manager: Caden Brown MD Eosinophils/100 WBC (Bld) 0 % Normal 0-5 [facility] Comment on above: Performed By: #### L IP, CP, HCG, CDP, TROPI #### [facility] [address] [place] [phone] Air Quality Manager: Caden Brown MD Erythrocyte distribution width (RBC) [Ratio] 12.2 % Normal 12.1-15.2 [facility] Comment on above: Performed By: #### L IP, CP, HCG, CDP, TROPI #### [facility] [address] [place] [address] Air Quality Manager: Caden Brown MD Hematocrit (Bld) [Volume fraction] 43.3 % Normal 36.0-46.0 [facility] Comment on above: Performed By: #### L IP, CP, HCG, CDP, TROPI #### [facility] [address] [place] [phone] Air Quality Manager: Caden Brown MD Hemoglobin (Bld) [Mass/Vol] 14.9 g/dL Normal 12.0-16.0 [facility] Comment on above: Performed By: #### L IP, CP, HCG, CDP, TROPI #### [facility] [address] [place] [address] Air Quality Manager: Caden Brown MD Immature granulocytes/100 WBC (Bld) 0 % Normal 0-5 [facility] Comment on above: Performed By: #### L IP, CP, HCG, CDP, TROPI #### [facility] [address] [place] [phone] Air Quality Manager: Caden Brown MD Lymphocytes (Bld) [#/Vol] 1.82 10*3/uL Normal 1.00-4.80 [facility] Comment on above: Performed By: #### L IP, CP, HCG, CDP, TROPI #### [facility] [address] [place] [address] Air Quality Manager: Caden Brown MD Lymphocytes/100 WBC (Bld) 15 % Normal 15-40 [facility] Comment on above: Performed By: #### L IP, CP, HCG, CDP, TROPI #### [facility] [address] [place] [address] Air Quality Manager: Caden Brown MD MCH (RBC) [Entitic mass] 31.1 pg Normal 26.0-34.0 [facility] [facility] Comment on above: Performed By: #### L IP, CP, HCG, CDP, TROPI #### [facility] [address] [place] [address] Air Quality Manager: Caden Brown MD MCHC (RBC) [Mass/Vol] 34.4 g/dL Normal 31.0-37.0 [facility] Comment on above: Performed By: #### L IP, CP, HCG, CDP, TROPI #### [facility] [address] [place] [address] Air Quality Manager: Caden Brown MD MCV (RBC) [Entitic vol] 90.4 fL Normal 80.0-100.0 [facility] Comment on above: Performed By: #### L IP, CP, HCG, CDP, TROPI #### [facility] [address] [place] [address] Air Quality Manager: Caden Brown MD Monocytes (Bld) [#/Vol] 0.43 10*3/uL Normal 0.00-1.00 [facility] Comment on above: Performed By: #### L IP, CP, HCG, CDP, TROPI #### [facility] [address] [place] [address] [phone] Air Quality Manager: Caden Brown MD Monocytes/100 WBC (Bld) 4 % Normal 4-8 [facility] Comment on above: Performed By: #### L IP, CP, HCG, CDP, TROPI #### [facility] [address] [place] [address] Air Quality Manager: Caden Brown MD Neutrophil (Seg) 81 % High 47-75 [facility] Comment on above: Performed By: #### L IP, CP, HCG, CDP, TROPI #### [facility] [address] [place] [address] Air Quality Manager: Caden Brown MD Platelet mean volume (Bld) [Entitic vol] 9.6 fL Normal 6.0-12.0 [facility] Comment on above: Performed By: #### L IP, CP, HCG, CDP, TROPI #### [facility] [address] [place] [address] ([phone] Air Quality Manager: Caden Brown MD Platelets (Bld) [#/Vol] 243 10*3/uL Normal 140-450 [facility] Comment on above: Performed By: #### L IP, CP, HCG, CDP, TROPI #### [facility] [address] [place] [address] Air Quality Manager: Caden Brown MD RBC (Bld) [#/Vol] 4.79 10*6/uL Normal 4.00-5.20 [facility] Comment on above: Performed By: #### L IP, CP, HCG, CDP, TROPI #### [facility] [address] [place], [place] [id number] Air Quality Manager: Caden Brown MD WBC (Bld) [#/Vol] 11.8 10*3/uL High 3.5-11.0 [facility] Comment on above: Performed By: #### L IP, CP, HCG, CDP, TROPI #### [facility] [address] [place] [address] Air Quality Manager: Caden Brown MD [facility] Albumin [Mass/Vol] 4.5 g/dL 3.5 - 5.2 g/dL [facility] ALP [Catalytic activity/Vol] 80 U/L 35 - 104 U/L [facility] ALT [Catalytic activity/Vol] 17 U/L 5 - 33 U/L [facility] Anion gap [Moles/Vol] 16 mmol/L 9 - 17 mmol/L [facility] AST [Catalytic activity/Vol] 19 U/L NINF - 32 U/L [facility] Bilirubin [Mass/Vol] 1.3 mg/dL High 0.3 - 1 .2 mg/dL [facility] Calcium [Mass/Vol] 9.7 mg/dL 8.6 - 10. 4 mg/dL [facility] Chloride [Moles/Vol] 101 mmol/L 98 - 10 7 mmol/L [facility] CO2 [Moles/Vol] 21 mmol/L 20 - 31 mmol/L [facility] Creatinine [Mass/Vol] 0.7 mg/dL 0.5 - 0.9 mg/dL [facility] Est, Glom Filt Rate - PINF [facility] Comment on above: These results are [...] [Mass/Vol] 94 mg/dL 70 - 99 mg/dL [facility] Interpretation and review of laboratory results Abnormal [facility] Potassium [Moles/Vol] 3.2 mmol/L Low 3.7 - 5.3 mmol/L [facility] Protein [Mass/Vol] 7.4 g/dL 6.4 - 8.3 g/dL [facility] Sodium [Moles/Vol] 138 mmol/L 135 - 144 mmol/L [facility] Urea nitrogen [Mass/Vol] 15 mg/dL 6 - 20 mg/dL [facility] Urea nitrogen/Creatinine [Mass ratio] 21 mg/mg High 9 - 20 [facility] COVID-19, Rapidon 11-16-2024 SARS-CoV-2 (COVID-19) RdRp gene JANET+probe Ql (Resp) Not detected Not Detected [facility] Comment on above: Rapid NAAT: The [...] Nucleic Acid Amplification Specimen Description .NASOPHARYNGEAL SWAB [facility] CT ABDOMEN PELVIS W IV CONTR Mejia [...] Сергей Cobian MD 11/16/24 Final result Normal [facility] CT Abdomen and Pelvis W cont rast [place] 11-16-2024 1. Fluid throughout the lumen of the colon, including in the distal colon and rectum, which may be seen in patients with diarrhea. No bowel obstruction. 2. Otherwise normal CT, following prior appendectomy. No sign of diverticulitis, appendicitis, or other acute inflammatory process. IMPRESSION: [facility] RIS CONSOLIDATED EXAMINATION: CT ABDO MEN PELVIS W IV CONTRAST, 11/16/2024 1:55 AM [...] lymph nodes. No aortic aneurysm or dissection. PN RIS CONSOLIDATED Сергей Cobian MD - 11/16/2024 [...] appendicitis, or other acute inflammatory process. IMPRESSION: [facility] Radiology Study observation (narrative) [facility] Comp Metabolic Profon 2024 Albumin [Mass/Vol] 4.5 g/dL Normal 3.5-5.2 [facility] Comment on above: Performed By: #### L IP, CP, HCG, CDP, TROPI ####[facility] [address] [place] [address] lab Director: Caden Brown MD Alkaline Phos 80 U/L Normal 35-104 [facility] Comment on above: Performed By: #### L IP, CP, HCG, CDP, TROPI ####[facility] [address] [place] [address] lab Director: Caden Brown MD ALT [Catalytic activity/Vol] 17 U/L Normal 5-33 [facility] Comment on above: Performed By: #### L IP, CP, HCG, CDP, TROPI ####[facility] [address] [place] [address] lab Director: Caden Brown MD Anion gap [Moles/Vol] 16 mmol/L Normal 9-17 [facility] Comment on above: Performed By: #### L IP, CP, HCG, CDP, TROPI ####[facility] [address] [place] [address] lab Director: Caden Brown MD AST [Catalytic activity/Vol] 19 U/L Normal <32 [facility] Comment on above: Performed By: #### L IP, CP, HCG, CDP, TROPI ####[facility] [address] [place] [address] lab Director: Caden Brown MD Bilirubin [Mass/Vol] 1.3 mg/dL High 0.3-1.2 [facility] Comment on above: Performed By: #### L IP, CP, HCG, CDP, TROPI ####[facility] [address] [place] [address] lab Director: Caden Brown MD BUN/CRE Ratio 21 High 9-20 [facility] Comment on above: Performed By: #### L IP, CP, HCG, CDP, TROPI ####[facility] [id number] [place] [address] lab Director: Caden Brown MD Calcium [Mass/Vol] 9.7 mg/dL Normal 8.6-10.4 [facility] Comment on above: Performed By: #### L IP, CP, HCG, CDP, TROPI ####[facility] [address] [place] [address] Lab Director: Caden Brown MD Chloride [Moles/Vol] 101 mmol/L Normal 98-107 [facility] Comment on above: Performed By: #### L IP, CP, HCG, CDP, TROPI ####[facility] Q[address] [place] [address] lab Director: Caden Brown MD CO2 [Moles/Vol] 21 mmol/L Normal 20-31 [facility] Comment on above: Performed By: #### L IP, CP, HCG, CDP, TROPI ####[facility] Nrq[address] [place] [address] lab Director: Caden Brown MD Creatinine [Mass/Vol] 0.7 mg/dL Normal 0.5-0.9 [facility] Comment on above: Performed By: #### L IP, CP, HCG, CDP, TROPI ####[facility] [address] [place] [address] lab Director: Caden Brown MD GFR/1.73 sq M.predicted among non-blacks MDRD (S/P/Bld) [Vol rate/Area] mL/min/{1.73_m2} Normal >60 [facility] Comment on above: Result Comment: These results [...] tubular secretion. Performed By: #### L IP, CP, HCG, CDP, TROPI ####[facility] S[address] [place] [address] Lab Director: Caden Brown MD Glucose [Mass/Vol] 94 mg/dL Normal 70-99 [facility] Comment on above: Performed By: #### L IP, CP, HCG, CDP, TROPI ####[facility] [address] [place] [address] Lab Director: Caden Brown MD Potassium [Moles/Vol] 3.2 mmol/L Low 3.7-5.3 [facility] Comment on above: Performed By: #### L IP, CP, HCG, CDP, TROPI ####[facility] [address] [place] [address] Lab Director: Caden Brown MD Protein [Mass/Vol] 7.4 g/dL Normal 6.4-8.3 [facility] Comment on above: Performed By: #### L IP, CP, HCG, CDP, TROPI ####[facility] [address] [place] [address] Lab Director: Caden Brown MD Sodium [Moles/Vol] 138 mmol/L Normal 135-144 [facility] Comment on above: Performed By: #### L IP, CP, HCG, CDP, TROPI ####[facility] [address] [place] [address] Lab Director: Caden Brown MD Urea nitrogen [Mass/Vol] 15 mg/dL Normal 6-20 [facility] Comment on above: Performed By: #### L IP, CP, HCG, CDP, TROPI ####[facility] [address] [place] [address] Lab Director: Caden Brown MD Flu A/B Ag Detectionon 11-16 Flu A Ag Detection Negative Normal NEG [facility] Comment on above: Result Comment: for Influenza A Antigen Performed By: #### F LUABA ####[facility] [address] [place] [address] lab Director: Caden Brown MD Flu B Ag Detection Negative Normal NEG [facility] Comment on above: Result Comment: for Influenza B Antigen. Performed By: #### F HERI ####[facility] [address] [place], [place] [address] lab Director: Cadne Brown MD HCG Qualitative, Serumon HCG ( test) Ql Negative NEGATIVE [facility] Comment on above: Specimens with hCG l evels near the threshold of the test (25 mIU/mL) may give a negative or indeterminate result. In such cases, another test should be performed with a new specimen in 48-72 hours. If early is suspected clinically in this setting, correlation with quantitative serum b-hCG level is suggested. [facility] has confirmed the use of plasma for this test. This has not been cleared or approved by the U.S. Food and Drug Administration. The FDA has determined that such clearance is not necessary. [facility] HCG Screen, Bloodon 11-16-19 25 HCG Screen, Blood Negative Normal NEG [facility] Comment on above: Result Comment: Spec imens with hCG levels near the threshold of the test (25 mIU/mL) may give a negative or indeterminate result. In such cases, another test should be performed with a new specimen in 48-72 hours. If early is suspected clinically in this setting, correlation with quantitative serum b-hCG level is suggested. [facility] has confirmed the use of plasma for this test. This has not been cleared or approved by the U.S. Food and Drug Administration. The FDA has determined that such clearance is not necessary. Performed By: #### L IP, CP, HCG, CDP, TROPI ####[facility] [address] [place], [place] [id number] lab Director: Caden Brown MD Lipaseon 11-16-2024 Lipase [Catalytic activity/Vol] 47 U/L 13 - 60 U/L [facility] Lipase [Catalytic activity/Vol] 47 U/L Normal 13-60 [facility] Comment on above: Performed By: #### L IP, CP, HCG, CDP, TROPI ####[facility] [address] [place] [id number] lab Director: Caden Brown MD No Panel Informationon 11-16 [facility] Portable XR Chest AP single viewon 11-16-2024 Normal chest. [facility] RIS CONSOLIDATED CLINICAL HISTORY: Shortness of breath. Chest pain. CHEST PORTABLE AP VIEW: The lungs are clear. No pneumothorax. The pulmonary vascularity and cardiomediastinal silhouette are normal. No acute fracture is seen. [facility] CONSOLIDATED Сергей Cobian MD - 11/16/2024 CLINICAL HISTORY: Shortness of breath. Chest pain. CHEST PORTABLE AP VIEW: The lungs are clear. No pneumothorax. The pulmonary vascularity and cardiomediastinal silhouette are normal. No acute fracture is seen. IMPRESSION: Normal chest. [facility] Radiology Study observation (narrative) [facility] Portable XR Chest AP single viewOrdered By: Сергей Cobian on 11-16-2024 [facility] Work Phone: Rapid influenza A/B antigens on 11-16-2024 FLUAV Ag Ql (Unsp spec) Negative NEGATIVE [facility] Comment on above: for Influenza A Anti gen FLUBV Ag Ql (Unsp spec) Negative NEGATIVE [facility] Comment on above: for Influenza B Anti gen. [facility] [id number] 11-16-2024 SARS-CoV-2 (COVID-19) RNA JANET+probe Ql (Unsp spec) Not detected Normal [facility] Comment on above: Result Comment: Rapid [...] Acid Amplification Performed By: #### C OVRB ####[facility] [address] [place] [address] lab Director: Caden Brown MD Troponinon 11-16-2024 Troponin I.cardiac High sensitivity method [Mass/Vol] ng/L 0 - 14 ng/L [facility] Comment on above: High Sensitivity Tro ponin values cannot be compared with other Troponin methodologies. [facility] Troponin, High Sens <6 Normal 0-14 [facility] Comment on above: Result Comment: High Sensitivity Troponin values cannot be compared with other Troponin methodologies. Performed By: #### L IP, CP, HCG, CDP, TROPI ####[facility] [address] [place] [address] lab Director: Caden Brown MD Urinalysison 11-16-2024 Bilirubin Ql (U) Negative NEGATIVE [facility] Clarity (U) Clear Clear [facility] Color (U) Yellow Yellow [facility] Comment [facility] Glucose Test strip (U) [Mass/Vol] Negative NEGATIVE mg/dL [facility] Hemoglobin Auto test strip Ql (U) Negative NEGATIVE [facility] Ketones (U) [Mass/Vol] Negative NEGAT WOODY mg/dL [facility] Leukocyte esterase Test strip Ql (U) Negative NEGATIVE [facility] Nitrite Ql (U) Negative NEGATIVE [facility] pH (U) 7.0 [pH] 5.0 - 8.0 [facility] Protein (U) [Mass/Vol] Negative NEGAT WOODY mg/dL [facility] Specific gravity (U) [Rel density] 1.010 1.005 - 1.030 [facility] Urobilinogen Qn (U) Normal 0.0 - 1. 0 EU/dL [facility] Urinalysis, Routineon 2024 Bilirubin, SemiQt,Ur Negative Normal NEG [facility] Comment on above: Performed By: #### U A #### [facility] [address] [place], [place] [id number] Air Quality Manager: Caden Brown MD Blood, Urine Negative Normal NEG [facility] Comment on above: Performed By: #### U A #### [facility] [address] [place], [place] [address] Air Quality Manager: Caden Brown MD Clarity (U) Clear Normal CLEAR [facility] Comment on above: Performed By: #### U A #### [facility] [address] [place] [address] Air Quality Manager: Caden Brown MD Color (U) Yellow Normal YEL [facility] Comment on above: Performed By: #### U A #### [facility] [address] [facility] [place] [address] Air Quality Manager: Caden Brown MD Comment Normal [facility] Comment on above: Performed By: #### U A #### [facility] [address] [facility] [place] [id number] Air Quality Manager: Caden Brown MD Glucose Ql (U) Negative Normal NEG [facility] Comment on above: Performed By: #### U A #### [facility] [address] [facility] [place] [id number] Air Quality Manager: Caden Brown MD Ketones Ql (U) Negative Normal NEG [facility] Comment on above: Performed By: #### U A #### [facility] [address] [place] [address] Air Quality Manager: Caden Brown MD Leukocyte esterase Test strip Ql (U) Negative Normal NEG [facility] Comment on above: Performed By: #### U A #### [facility] [address] [place], [place] [address] Air Quality Manager: Caden Brown MD Nitrite,Ur Negative Normal NEG [facility] Comment on above: Performed By: #### U A #### [facility] [address] [place], [place] [id number] Air Quality Manager: Caden Brown MD PH,Ur 7.0 Normal 5.0-8.0 [facility] Comment on above: Performed By: #### U A #### [facility] [address] [place], [place] [address] Air Quality Manager: Caden Brown MD Protein Ql (U) Negative Normal NEG [facility] Comment on above: Performed By: #### U A #### [facility] [address] [place], [place] [address] Air Quality Manager: Caden Brown MD Spec. Glenvil,Ur 1.010 Normal 1.005-1.03 0 [facility] Comment on above: Performed By: #### U A #### [facility] [address] [place], [place] [address] Air Quality Manager: Caden Brown MD Urobilinogen,Ur Normal Normal 0.0-1.0 [facility] Comment on above: Performed By: #### U A #### [facility] [address] [place], [place] 6[address] Air Quality Manager: Caden Brown MD XR CHEST PORTABLEon 11-16-19 XR CHEST PORTABLE CLINICAL HISTORY: Shortness of breath. Chest pain. CHEST PORTABLE AP VIEW: The lungs are clear. No pneumothorax. The pulmonary vascularity and cardiomediastinal silhouette are normal. No acute fracture is seen. IMPRESSION: Normal chest. Interpreted by: Сергей Cobian MD Signed by: Сергей Cobian MD 11/16/24 Final result Normal [facility] HCG ( test) Ql (U)o n 01-15-2025 Interpretation and review of laboratory results Normal [facility] Preg Test, Ur Negative Negative [facility] HCG ( test) Ql (U)o n 08-27-2024 Beta HCG ( test) Ql (U) Negative Normal NEG [facility] Comment on above: Performed By: #### 2 106-3 #### [facility] ([id number]) [address] [place] [address] Surgical Pathologyon 024 Surgical Pathology Normal [facility] Comment on above: Result Comment: [facility] [address] [place] [address] Surgical Pathology Consultation Patient Name:CHARIS ALLEN:2000 (Age: 23)Gender:FTaken:08/27/2024eported:09/06/2024hysician(s):Gary Jennings DO ([phone])Copy To: Rec. 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 Report Electronically Signed Out cjb/09/06/2024eri Arguelles MD Interpretation performed at [facility], [address] [place] [address], License number: [id number]. Clinical History Lesion of tongue. Gross Description Received in formalin labeled TIFFANY, right base of tongue lesion is a Telfa pad with two travis-yellow rubbery soft tissue bits, 0.2 and 0.3 cm. The specimen is filtered and entirely submitted in a single cassette. (1, ns, [id number],m5) DM. dm/08/27/2024NSK Specimen(s) Received Right base of tongue Fee Codes(s): 1; 63788 CNOVon 07-25-2024 CNOV Office Visit (PODIAM ) ----- TIFFANYCHARIS Baltazar ([id number]) 4 F Date Time Provider Department 07/25/24 11:45 AM ÁNGELA DELGADO During your visit today, we recorded the following information about you: Ángela Delgado, NEGAR 07/25/2024 5:34 PM Signed Service Date: July [...] which included preparing to see the patient, [id number] patient care, completing clinical documentation, obtaining and/or reviewing separately obtained history, performing a medically appropriate examination, counseling and educating the patient/family/caregiver, ordering medications, tests and care coordination (not separately reported). Time did not include procedure time. I agree with the Chief Complaint, ROS, and Past Histories independently gathered by the clinical client support consultant and the remaining scribed note accurately describes [...] GENERAL INS (more content not included)... Normal [facility] CT NECK SOFT TISSUE W CONTon [...] [place] Ty on 07/11/2024 8:38 AM Normal [facility] TB PREG QUANT HCGon 024 HCG QUANTITATIVE <1 mIU/mL [facility] Comment on above: 5-50 0.2-1 WEEK 50-500 1-2 WEEKS 100-5,000 2-3 WEEKS 500-10,000 3-4 WEEKS 1,000-50,000 4-5 WEEKS 10,000-100,000 5-6 WEEKS 15,000-200,000 6-8 WEEKS 10,000-100,000 2-[address] [facility] abdomen pelvis w conon CT abdomen pelvis w con [facility] [place] [address] [place] [address] CT Scan Report Signed Patient: Charis Allen MR#: [id number] : 2000 Acct:[id number] Age/Sex: 23 / F ADM Date: 06/27/24 Loc: ER Room: Type: [facility] ER Attending Dr: Copies to: Yung Nichols [...] identified. RETROPERITONEUM: No significant retroperitoneal abnormalities identified. MESENTERY:Unremarkable SMALL BOWEL: The small bowel loops are nondistended. APPENDIX: Appendectomy changes identified. COLON: Moderate proximal constipation. URINARY BLADDER: Urinary bladder is unremarkable. REPRODUCTIVE SYSTEM: Reproductive structures are unremarkable. PNEUMOPERITONEUM: None PERITONEAL FLUID:None BONY STRUCTURES: Unremarkable ABDOMINAL WALL: Unremarkable CT/CT abdomen pelvis w con IMPRESSION: No acute findings. Moderate proximal constipation. Impression dictated by: Michael Camacho M.D.06/28/2024 6:18 AM Dictation Location: [place] [address] Transcribed By: [facility] 06/28/24617 Dictated By: Michael Camacho DO 06/28/24615 Signed By: 06/28/24617 Normal [facility] Chlamydia/GC Amplificationon 06-28-2024 Chlamydia Trachomotis, JANET Negative Normal Negative [facility] Comment on above: Order Comment: SOURC E OF SPECIMEN: Genital Performed By: #### F S #### [address] #### GCCHLAMAMP #### [facility] , Neisseria Gonorrhoeae, JANET Negative Normal Negative [facility] Comment on above: Order Comment: SOURC E OF SPECIMEN: Genital Result Comment: Perf ormed at: =G - [facility] [address] [id number] Air Quality Manager: Barbie Mota MD, Phone: [phone] PERFORMED BY: [place] [address] PATHOLOGIST [employer] SAMANTHA VILLAR M.D. Performed By: #### F S #### [address] #### GCCHLAMAMP #### [facility] , Fungal Smearon 06-28-2024 Fungal Smear Fungus Smear Results No Yeast Like Elements Seen ---- Trichomonas Screen No Trichomonas Seen Trich Reference Reference range = None Seen PERFORMED BY: [place] [address] PATHOLOGIST [employer] SAMANTHA VILLAR M.D. Normal [facility] Comment on above: Performed By: #### F S #### [facility] [address] [place] [address] #### GCCHLAMAMP #### [facility] , Trichomonas vaginalis detect ion by wet preparationOrdered By: Yung Nichols on 06-28-2024 T. vaginalis Wet prep Ql (Unsp spec) [facility] Alanine aminotransferase [En zymatic activity/volume] in Serum or PlasmaOrdered By: Yung Nichols on 06-27-2024 ALT [Catalytic activity/Vol] 20 U/L Normal 7-52 [facility] Comment on above: Performed By: #### C MP, LIPASE, CBC ####[address] Albumin [Mass/volume] in Ser um or Plasma by Bromocresol green (BCG) dye binding methoOrdered By: Yung Nichols on 06-27-2024 Albumin BCG dye [Mass/Vol] 4.2 g/dL 3.5-5.7 [facility] Alkaline phosphatase [Enzyma tic activity/volume] in Serum or PlasmaOrdered By: Yung Nichols on 06-27-2024 ALP [Catalytic activity/Vol] 69 U/L Normal 34-104 [facility] Comment on above: Performed By: #### C MP, LIPASE, CBC ####[address] Aspartate aminotransferase [ Enzymatic activity/volume] in Serum or PlasmaOrdered By: Yung Nichols on 06-27-2024 AST [Catalytic activity/Vol] 21 U/L Normal 13-39 [facility] Comment on above: Performed By: #### C MP, LIPASE, CBC ####[address] Automated basophil %Ordered By: Yung Nichols on 06-27-2024 Basophils/100 WBC (Bld) 0.6 % Normal . [facility] Comment on above: Performed By: #### F S #### [address] #### GCCHLAMAMP #### [facility] , Automated basophil countOrde red By: Yung Nichols on 06-27-2024 Basophils (Bld) [#/Vol] 0.0 10*3/uL Normal 0.0-0.2 [facility] Comment on above: Result Comment: PERF ORMED BY: [place] [address] PATHOLOGIST [employer]RARIAN SAMANTHA VILLAR M.D. Performed By: #### F S #### [address] #### GCCHLAMAMP #### [facility] , Automated blood monocyte cou ntOrdered By: Yung Nichols on 06-27-2024 Monocytes (Bld) [#/Vol] 0.5 10*3/uL Normal 0.0-0.8 [facility] Comment on above: Performed By: #### F S #### [facility] [address] [place] [address] [place] #### GCCHLAMAMP #### [facility] , Automated eosinophil %Ordere d By: Yung Nichols on 06-27-2024 Eosinophils/100 WBC (Bld) 1.4 % Normal . [facility] Comment on above: Performed By: #### F S #### [place] [address] [place] #### GCCHLAMAMP #### [facility] , Automated eosinophil countOr dered By: Yung Nichols on 06-27-2024 Eosinophils (Bld) [#/Vol] 0.1 10*3/uL Normal 0.0-0.45 [facility] Comment on above: Performed By: #### F S #### [place] [address] [place] #### GCCHLAMAMP #### [facility] , Automated monocyte %Ordered By: Yung Nichols on 06-27-2024 Monocytes/100 WBC (Bld) 6.7 % Normal . [facility] Comment on above: Performed By: #### F S #### [facility] [address] [place] [address] [place] #### GCCHLAMAMP #### [facility] , Automated neutrophil %Ordere d By: Yung Nichols on 06-27-2024 Neutrophils/100 WBC (Bld) 63.9 % Normal . [facility] Comment on above: Performed By: #### F S #### [facility] [address] [place] [address] [place] #### GCCHLAMAMP #### [facility] , Bacteria [Presence] in Urine by AutomatedOrdered By: Yung Nichols on 06-27-2024 Bacteria Auto Ql (U) Rare [HPF] None Seen [facility] Bilirubin Test strip Ql (U)O rdered By: Yung Nichols on 06-27-2024 Bilirubin Ql (U) Negative Negative [facility] Bilirubin.total [Mass/volume ] in Serum or PlasmaOrdered By: Yung Nichols on 06-27-2024 Bilirubin [Mass/Vol] 1.5 mg/dL High 0.3-1.0 [facility] Comment on above: Samples from patient s [...] Performed By: #### C MP, LIPASE, CBC ####[facility] [id number] [facility] Calcium [Mass/volume] in Ser um or PlasmaOrdered By: Yung Nichols on 06-27-2024 Calcium [Mass/Vol] 9.1 mg/dL Normal 8.6-10.3 [facility] Comment on above: Performed By: #### C MP, LIPASE, CBC ####[address] [address] [facility] Carbon dioxide, total [Moles /volume] in Serum or PlasmaOrdered By: Yung Nichols on 06-27-2024 CO2 [Moles/Vol] 26.8 mmol/L Normal 21.0-31.0 [facility] Comment on above: Performed By: #### C MP, LIPASE, CBC ####[place] [id number] [place] Chloride [Moles/volume] in S emiliana or PlasmaOrdered By: Yung Nichols on 06-27-2024 Chloride [Moles/Vol] 105 mmol/L Normal 98-107 [facility] Comment on above: Performed By: #### C MP, LIPASE, CBC ####[address] Color of Urine by AutoOrdere d By: Yung Nichols on 06-27-2024 Color (U) Yellow Normal Yellow [facility] Comment on above: Order Comment: SOURC E OF SPECIMEN: Genital Performed By: #### F S #### [address] #### GCCHLAMAMP #### [facility] , Complete Blood Count Auto Di ffon 06-27-2024 Mean Corpuscular HGB Conc 33.3 g/dL Normal 32.0-35.0 [facility] Comment on above: Performed By: #### F S #### [address] #### GCCHLAMAMP #### [facility] , Monocytes/100 WBC (Bld) 20.22 % High 0.00-20.00 [facility] Comment on above: Result Comment: For adults in ED, MDW > 20.0 may be associated with a higher risk of sepsis during the first 12 hrs of hospital admission Performed By: #### F S #### [address] #### GCCHLAMAMP #### [facility] , NRBC% 0.2 /100{WBC} Normal 0-0.5 [facility] Comment on above: Performed By: #### F S #### [address] #### GCCHLAMAMP #### [facility] , Comprehensive Metabolic Pane yogi 06-27-2024 Albumin [Mass/Vol] 4.2 g/dL Normal 3.5-5.7 [facility] Comment on above: Performed By: #### C MP, LIPASE, CBC ####[address] Creatinine Clr Calc Pharmacy 115.39 Normal [facility] Comment on above: Performed By: #### C MP, LIPASE, CBC ####[address] GFR/1.73 sq M.predicted MDRD (S/P/Bld) [Vol rate/Area] mL/min/{1.73_m2} Normal [facility] Comment on above: Performed By: #### C MP, LIPASE, CBC ####[address] Creatinine [Mass/volume] in Serum or PlasmaOrdered By: Yung Nichols on 06-27-2024 Creatinine [Mass/Vol] 0.75 mg/dL Normal 0.60-1.20 [facility] Comment on above: Performed By: #### C MP, LIPASE, CBC ####[address] Dipstick and Microscopicon 0 06-27-2024 Bacteria,Urine Rare Normal None Seen [facility] Comment on above: Order Comment: SOURC E OF SPECIMEN: Genital Performed By: #### F S #### [address] #### GCCHLAMAMP #### [facility] , Bilirubin,Urine Negative Normal Negative [facility] Comment on above: Order Comment: SOURC E OF SPECIMEN: Genital Performed By: #### F S #### [place] [address] [place] #### GCCHLAMAMP #### [facility] , Glucose Ql (U) Normal Normal Normal [facility] Comment on above: Order Comment: SOURC E OF SPECIMEN: Genital Performed By: #### F S #### [place] [address] [place] #### GCCHLAMAMP #### [facility] , Hyaline Casts,Urine None Normal 0-8 [facility] Comment on above: Order Comment: SOURC E OF SPECIMEN: Genital Performed By: #### F S #### [address] [place] [address] [place] #### GCCHLAMAMP #### [facility] , Mucus,Urine 4+ Critically abnormal [facility] Comment on above: Order Comment: SOURC E OF SPECIMEN: Genital Performed By: #### F S #### [facility] [address] [place] [address] #### GCCHLAMAMP #### [facility] , Nitrite,Urine Negative Normal Negative [facility] Comment on above: Order Comment: SOURC E OF SPECIMEN: Genital Performed By: #### F S #### [address] #### GCCHLAMAMP #### [facility] , Occult Blood,Urine 1+ High Negative [facility] Comment on above: Order Comment: SOURC E OF SPECIMEN: Genital Performed By: #### F S #### [address] #### GCCHLAMAMP #### [facility] , Protein,Urine Negative Normal Negative [facility] Comment on above: Order Comment: SOURC E OF SPECIMEN: Genital Performed By: #### F S #### [address] #### GCCHLAMAMP #### [facility] , RBC,Urine 5-9 High 0-4 [facility] Comment on above: Order Comment: SOURC E OF SPECIMEN: Genital Performed By: #### F S #### [address] #### GCCHLAMAMP #### [facility] , Specificy Glenvil,Urine 1.026 Normal 1.001-1.03 0 [facility] Comment on above: Order Comment: SOURC E OF SPECIMEN: Genital Performed By: #### F S #### [address] #### GCCHLAMAMP #### [facility] , Squamous Epithelial Cell,Urine 3-4 High 0-2 [facility] Comment on above: Order Comment: SOURC E OF SPECIMEN: Genital Performed By: #### F S #### [facility] [address] [place] [address] [place] #### GCCHLAMAMP #### [facility] , Urobilinogen,Urine Normal Normal Normal [facility] Comment on above: Order Comment: SOURC E OF SPECIMEN: Genital Performed By: #### F S #### [place] [address] [place] #### GCCHLAMAMP #### [facility] , WBC,Urine 20-49 High 0-4 [facility] Comment on above: Order Comment: SOURC E OF SPECIMEN: Genital Performed By: #### F S #### [facility] [address] [place] [address] [place] #### GCCHLAMAMP #### [facility] , Epithelial cells.squamous [# /area] in Urine sediment by Automated countOrdered By: Yung Nichols on 06-27-2024 Epithelial cells.squamous Auto (Urine sed) [#/Area] 3-4 [HPF] High 0-2 [facility] Erythrocyte distribution wid th [Ratio] by Automated countOrdered By: Yung Nichols on 06-27-2024 Erythrocyte distribution width (RBC) [Ratio] 14.2 % Normal 11.9-15.3 [facility] Comment on above: Performed By: #### F S #### [facility] [address] [place] [address] [place] #### GCCHLAMAMP #### [facility] , Erythrocytes [#/area] in Uri ne sediment by Automated countOrdered By: Yung Nichols on 06-27-2024 RBC Auto (Urine sed) [#/Area] 5-9 [HPF] High 0-4 [facility] Erythrocytes [#/volume] in B lood by Automated countOrdered By: Yung Nichols on 06-27-2024 RBC (Bld) [#/Vol] 4.32 10*6/uL Normal 3.60-5.00 [facility] Comment on above: Performed By: #### F S #### [facility] [address] #### GCCHLAMAMP #### [facility] , Glucose [Mass/volume] in Ser um or PlasmaOrdered By: Yung Nichols on 06-27-2024 Glucose [Mass/Vol] 82 mg/dL Normal 70-100 [facility] Comment on above: ADA recommended refe rence rangeRandom Glucose Reference Range is dependent on time and content of last meal. Glucose of more than 200 mg/dL in a nonstressed, ambulatory subject supports the diagnosis of Diabetes Mellitus. Result Comment: [place] om Glucose Reference Range is dependent on time and content of last meal. Glucose of more than 200 mg/dL in a nonstressed, ambulatory subject supports the diagnosis of Diabetes Mellitus. ADA recommended reference range Performed By: #### C MP, LIPASE, CBC ####[facility] [address] Glucose [Mass/volume] in Uri ne by Test stripOrdered By: Yung Nichols on 06-27-2024 Glucose Test strip (U) [Mass/Vol] Normal mg/dL Normal [facility] HCG ( test) IA.rapi d Ql (U)Ordered By: Yung Nichols on 06-27-2024 HCG ( test) Ql (U) Negative [facility] HCG,Urineon 06-27-2024 Beta HCG ( test) Ql (U) Negative Normal [facility] Comment on above: Order Comment: SOURC E OF SPECIMEN: Genital Result Comment: PERF ORMED BY: [facility] [address] [place] [address] PATHOLOGIST [employer] LIBRARIAN SAMANTHA VILLAR M.D. Performed By: #### F S #### [facility] [address] #### GCCHLAMAMP #### [facility] , Hematocrit [Volume Fraction] of Blood by Automated countOrdered By: Yung Nichols on 06-27-2024 Hematocrit (Bld) [Volume fraction] 39.5 % Normal 34.0-46.4 [facility] Comment on above: Performed By: #### F S #### [place] [address] [place] #### GCCHLAMAMP #### [facility] , Hemoglobin Test strip Ql (U) Ordered By: Yung Nichols on 06-27-2024 Hemoglobin Ql (U) 1+ High Negative [facility] Hemoglobin [Mass/volume] in BloodOrdered By: Yung Nichols on 06-27-2024 Hemoglobin (Bld) [Mass/Vol] 13.2 g/dL Normal 11.8-15.4 [facility] Comment on above: Performed By: #### F S #### [place] [address] [place] #### GCCHLAMAMP #### [facility] , Hyaline casts [#/area] in Ur ine sediment by Automated countOrdered By: Yung Nichols on 06-27-2024 Hyaline casts Auto (Urine sed) [#/Area] None [LPF] 0-8 [facility] Ketones [Presence] in Urine by Test stripOrdered By: Yung Nichols on 06-27-2024 Ketones Ql (U) Negative Normal Negative [facility] Comment on above: Order Comment: SOURC E OF SPECIMEN: Genital Performed By: #### F S #### [place] [address] [place] #### GCCHLAMAMP #### [facility] , Leukocyte esterase [Presence ] in Urine by Test stripOrdered By: Yung Nichols on 06-27-2024 Leukocyte esterase Test strip Ql (U) 4+ High Negative [facility] Comment on above: Order Comment: SOURC E OF SPECIMEN: Genital Performed By: #### F S #### [place] [address] [place] #### GCCHLAMAMP #### [facility] , Leukocytes [#/area] in Urine sediment by Automated countOrdered By: Yung Nichols on 06-27-2024 WBC Auto (Urine sed) [#/Area] 20-49 [HPF] High 0-4 [facility] Leukocytes [#/volume] correc roe for nucleated erythrocytes in Blood by Automated counOrdered By: Yung Nichols on 06-27-2024 WBC corrected for nucl RBC Auto (Bld) [#/Vol] 7.2 10*3/uL 3.8-11.6 [facility] Leukocytes [#/volume] in Blo od by Automated countOrdered By: Yung Nichols on 06-27-2024 WBC (Bld) [#/Vol] 7.2 10*3/uL Normal 3.8-11.6 [facility] Comment on above: Performed By: #### F S #### [facility] [address] [place] [address] #### GCCHLAMAMP #### [facility] , Lipase [Enzymatic activity/v olume] in Serum or PlasmaOrdered By: Yung Nichols on 06-27-2024 Lipase [Catalytic activity/Vol] 19.0 U/L Normal 11.0-82.0 [facility] Comment on above: Result Comment: PERF ORMED BY: [place] [address] PATHOLOGIST [employer] LIBRARIAN SAMANTHA VILLAR M.D. Performed By: #### C MP, LIPASE, CBC ####[facility] [address] [place] [address] Lymphocytes [#/volume] in Bl ood by Automated countOrdered By: Yung Nichols on 06-27-2024 Lymphocytes (Bld) [#/Vol] 2.0 10*3/uL Normal 1.00-4.8 [facility] Comment on above: Performed By: #### F S #### [facility] [address] [place] [address] #### GCCHLAMAMP #### [facility] , Lymphocytes/100 leukocytes i n Blood by Automated countOrdered By: Yung Nichols on 06-27-2024 Lymphocytes/100 WBC (Bld) 27.4 % Normal . [facility] Comment on above: Performed By: #### F S #### [facility] [address] [place] [address] [place] #### GCCHLAMAMP #### [facility] , MCH [Entitic mass] by Automa roe countOrdered By: Yung Nichols on 06-27-2024 MCH (RBC) [Entitic mass] 30.5 pg Normal 24.7-34.3 [facility] Comment on above: Performed By: #### F S #### [facility] [address] [place] [address] [place] #### GCCHLAMAMP #### [facility] , MCHC Auto (RBC) [Mass/Vol]Or dered By: Yung Nichols on 06-27-2024 MCHC (RBC) [Mass/Vol] 33.3 g/dL 32.0-35.0 [facility] MCV [Entitic volume] by Auto mated countOrdered By: Yung Nichols on 06-27-2024 MCV (RBC) [Entitic vol] 91.5 fL Normal 80-100 [facility] Comment on above: Performed By: #### F S #### [facility] [address] [place] [address] [place] #### GCCHLAMAMP #### [facility] , Monocyte distribution width [Entitic volume] in Blood by AutomatedOrdered By: Yung Nichols on 06-27-2024 Monocyte distribution width Auto (Bld) [Entitic vol] 20.22 % High 0.00-20.00 [facility] Comment on above: For adults in ED, MD W > 20.0 may be associated with a higher risk of sepsis during the first 12 hrs of hospital admission Mucus [Presence] in Urine by AutomatedOrdered By: Yung Nichols on 06-27-2024 Mucus Auto Ql (U) 4+ [LPF] Abnormal [facility] Neutrophils [#/volume] in Bl ood by Automated countOrdered By: Yung Nichols on 09-19-2024 Neutrophils (Bld) [#/Vol] 4.6 10*3/uL Normal 1.8-7.7 [facility] Comment on above: Performed By: #### F S #### [facility] [address] [place] [address] [place] #### GCCHLAMAMP #### [facility] , Nitrite Test strip Ql (U)Ord ered By: Yung Nichols on 06-27-2024 Nitrite Ql (U) Negative Negative [facility] No Panel InformationOrdered By: Yung Nichols on 06-27-2024 Estimated GFR (CKD-EPI) > 60.0 mL/Min [facility] Creatinine Clearance (Chem 115.39 [facility] Nucleated erythrocytes [Pres ence] in Blood by Automated countOrdered By: Yung Nichols on 06-27-2024 Nucleated RBC Auto Ql (Bld) 0.2 /100{WBC} 0-0.5 [facility] Platelet mean volume [Entiti c volume] in Blood by Automated countOrdered By: Yung Nichols on 06-27-2024 Platelet mean volume (Bld) [Entitic vol] 8.0 fL Normal 6.3-10.7 [facility] Comment on above: Performed By: #### F S #### [facility] [address] [place] [address] [place] #### GCCHLAMAMP #### [facility] , Platelets [#/volume] in Bloo d by Automated countOrdered By: Yung Nichols on 06-27-2024 Platelets (Bld) [#/Vol] 201 10*3/uL Normal 150-450 [facility] Comment on above: Performed By: #### F S #### [facility] [address] [place] [address] [place] #### GCCHLAMAMP #### [facility] , Potassium [Moles/volume] in Serum or PlasmaOrdered By: Yung Nichols on 06-27-2024 Potassium [Moles/Vol] 3.4 mmol/L Low 3.5-5.1 [facility] Comment on above: Performed By: #### C MP, LIPASE, CBC ####[address] Protein Test strip (U) [Mass /Vol]Ordered By: Yung Nichols on 06-27-2024 Protein (U) [Mass/Vol] Negative Negative [facility] Protein [Mass/volume] in Ser um or PlasmaOrdered By: Yung Nichols on 06-27-2024 Protein [Mass/Vol] 6.4 g/dL Normal 6.4-8.9 [facility] Comment on above: Performed By: #### C MP, LIPASE, CBC ####[address] Serum globulin measurement b y calculation (mass/volume)Ordered By: Yung Nihcols on 06-27-2024 Globulin (S) [Mass/Vol] 2.2 g/dL Normal [facility] Comment on above: Performed By: #### C MP, LIPASE, CBC ####[address] Serum or plasma albumin/glob ulin mass ratioOrdered By: Yung Nichols on 06-27-2024 Albumin/Globulin [Mass ratio] 1.9 {ratio} [facility] Comment on above: Performed By: #### C MP, LIPASE, CBC ####[address] Serum or plasma anion gap de terminationOrdered By: Yung Nichols on 06-27-2024 Anion gap [Moles/Vol] 10.6 mmol/L Normal 6.0-15.0 [facility] Comment on above: Performed By: #### C MP, LIPASE, CBC ####[address] Sodium [Moles/volume] in Ser um or PlasmaOrdered By: Yung Nichols on 06-27-2024 Sodium [Moles/Vol] 139 mmol/L Normal 136-145 [facility] Comment on above: Performed By: #### C MP, LIPASE, CBC ####[address] Specific gravity Test strip (U) [Rel density]Ordered By: Yung Nichols on 06-27-2024 Specific gravity (U) [Rel density] 1.026 1.001-1.03 0 [facility] Urea nitrogen [Mass/volume] in Serum or PlasmaOrdered By: Yung Nichols on 06-27-2024 Urea nitrogen [Mass/Vol] 17 mg/dL Normal 7-25 [facility] Comment on above: Performed By: #### C MP, LIPASE, CBC ####[facility] Hxf[address] Urine Cultureon 06-27-2024 Bacteria identified Cx Nom (U) 75,000 colonies/ml mixed bacterial skin contaminants 2 Days PERFORMED BY: [place] [address] PATHOLOGIST [employer]IC LIBRARIAN SAMANTHA Trevizo [facility] Comment on above: Performed By: #### F S #### [facility] [address] [place] [address] #### GCCHLAMAMP #### [facility] , Urine appearanceOrdered By: Yung Nichols on 06-27-2024 Appearance (U) Clear Normal Clear [facility] Comment on above: Order Comment: SOURC E OF SPECIMEN: Genital Performed By: #### F S #### [facility] [address] [place] [address] #### GCCHLAMAMP #### [facility] , Urobilinogen Test strip (U) [Mass/Vol]Ordered By: Yung Nichols on 06-27-2024 Urobilinogen (U) [Mass/Vol] Normal mg/dL Normal [facility] pH of Urine by Test stripOrd ered By: Yung Nichols on 06-27-2024 pH (U) 6.0 [pH] Normal 5.0-9.0 [facility] Comment on above: Order Comment: SOURC E OF SPECIMEN: Genital Performed By: #### F S #### [facility] [address] [place] [address] [place] #### GCCHLAMAMP #### [facility] , TBH PREG QUANT HCGon 06-24- 024 HCG QUANTITATIVE <1 mIU/mL [facility] Comment on above: 5-50 0.2-1 WEEK 50-500 1-2 WEEKS 100-5,000 2-3 WEEKS 500-10,000 3-4 WEEKS 1,000-50,000 4-5 WEEKS 10,000-100,000 5-6 WEEKS 15,000-200,000 6-8 WEEKS 10,000-100,000 2-3 MONTHS [facility] CNOVon 12-26-2023 CNOV Office Visit (PODIAM ) ----- CHARIS ALLEN ([id number]) 4 F Date Time Provider Department 12/26/23 [...] feet daily. Medication orders placed this encounter clotrimazole-betamethason e (LOTRISONE) cream Sig: Apply 1 application to [...] the overlying eponychium and underlying nailbed. An [place] anvil was used to cut the offending [...] A [place] (more content not included)... Normal [facility] CNOVon 11-21-2023 CNOV Office Visit (PODIAM ) ----- CHARIS ALLEN ([id number]) 4 F Date Time Provider Department 11/21/23 2:15 PM ÁNGELA DELGADO During your visit today, we recorded the following information about you: Last Period 11/06/23 Ángela Delgado DPM 11/21/2023 3:03 PM Signed Service Date: November 21, 2023 PCP: No primary care provider on file. Last Podiatry Visit: None at [facility] The history is provided by the patient. [...] order to perform a complete physical exam, [address] was performed. This incidental service is integral [...] which included preparing to see the patient, [id number] patient care, completing clinical documentation, obtaining and/or reviewing separately obtained history, performing a medically appropriate examination, counseling and educating the patient/family/caregiver, ordering medications, tests, or procedures and care continuity coordinator (more content not included)... Normal [facility] A1C with Estimated Average G ramirez 11-08-2023 HbA1c (Bld) [Mass fraction] 5.000 % Normal 4.3-5.6 % [facility] Other HbA1c (Bld) [Mass fraction] 97 mg/dL [facility] Other Alanine aminotransferase [En zymatic activity/volume] in Serum or PlasmaOrdered By: Pérez Barcenas on 11-08-2023 ALT [Catalytic activity/Vol] 15 U/L 7-52 [facility] Albumin [Mass/volume] in Ser um or Plasma by Bromocresol green (BCG) dye binding methoOrdered By: Pérez Barcenas on 11-08-2023 Albumin BCG dye [Mass/Vol] 4.3 g/dL 3.5-5.7 [facility] Alkaline phosphatase [Enzyma tic activity/volume] in Serum or PlasmaOrdered By: Pérez Barcenas on 11-08-2023 ALP [Catalytic activity/Vol] 80 U/L 34-104 [facility] Aspartate aminotransferase [ Enzymatic activity/volume] in Serum or PlasmaOrdered By: Pérez Barcenas on 11-08-2023 AST [Catalytic activity/Vol] 14 U/L 13-39 [facility] Bilirubin.total [Mass/volume ] in Serum or PlasmaOrdered By: Pérez Barcenas on 11-08-2023 Bilirubin [Mass/Vol] 0.8 mg/dL 0.3-1.0 [facility] Calcium [Mass/volume] in Ser um or PlasmaOrdered By: Pérez Barcenas on 11-08-2023 Calcium [Mass/Vol] 9.7 mg/dL 8.6-10.3 [facility] Carbon dioxide, total [Moles /volume] in Serum or PlasmaOrdered By: Pérez Barcenas on 11-08-2023 CO2 [Moles/Vol] 29.4 mmol/L 21.0-31.0 [facility] Chloride [Moles/volume] in S emiliana or PlasmaOrdered By: Pérez Barcenas on 11-08-2023 Chloride [Moles/Vol] 105 mmol/L 98-107 [facility] Cholesterol [Mass/volume] in Serum or PlasmaOrdered By: Pérez Barcenas on 11-08-2023 Cholesterol [Mass/Vol] 128 mg/dL 140-200 [facility] Comment on above: Chol less than 200 m g/dl low riskChol 201-239 mg/dl borderline riskChol 240 mg/dl and greater high risk Cholesterol in LDL Calc [Mas s/Vol]Ordered By: Pérez Barcenas on 11-08-2023 Cholesterol in LDL [Mass/Vol] 70 mg/dL 0-100 [facility] Comment on above: LDL ATP III CLASSIFI CATIONLDL less than 100 mg/dL OptimalLDL 100-129 mg/dL Near or above optimalLDL 130-159 mg/dL Borderline highLDL 160-189 mg/dL HighLDL greater than 189 mg/dL Very high Cholesterol in VLDL Calc [Ma ss/Vol]Ordered By: Pérez Barcenas on 11-08-2023 Cholesterol in VLDL [Mass/Vol] 10 mg/dL [facility] Comprehensive Metabolic Pane yogi 11-08-2023 Albumin [Mass/Vol] 4.034806 g/dL Normal 3.5-5.7 g/dL [employer] Other Bilirubin [Mass/Vol] 0.6242696 mg/dL Normal 0.3- 1.0 mg/dL [facility] Other Calcium [Mass/Vol] 9.0644763 mg/dL Normal 8.6-10 .3 mg/dL [facility] Other CO2 [Moles/Vol] 29.39147492 mmol/L Normal 21.0-3 1.0 mmol/L [facility] Other Creatinine [Mass/Vol] 0.56843430 mg/dL Normal 0. 60-1.20 mg/dL [facility] Other GFR/1.73 sq M.predicted MDRD (S/P/Bld) [Vol rate/Area] mL/min/{1.73_m2} [facility] Other Potassium [Moles/Vol] 4.65623576 mmol/L Normal 3 .5-5.1 mmol/L [facility] Other Protein [Mass/Vol] 6.657963 g/dL Normal 6.4-8.9 g/dL [facility] Other Comprehensive Metabolic Panel 2.2 g/dL [facility] Other Creatinine [Mass/volume] in Serum or PlasmaOrdered By: Pérez Barcenas on 11-08-2023 Creatinine [Mass/Vol] 0.68 mg/dL 0.60-1.20 [facility] Globulin Calc (S) [Mass/Vol] Ordered By: Pérez Barcenas on 11-08-2023 Globulin (S) [Mass/Vol] 2.2 g/dL [facility] Glucose [Mass/volume] in Ser um or PlasmaOrdered By: Pérez Barcenas on 11-08-2023 Glucose [Mass/Vol] 80 mg/dL 70-100 [facility] Comment on above: ADA recommended refe rence rangeRandom Glucose Reference Range is dependent on time and content of last meal. Glucose of more than 200 mg/dL in a nonstressed, ambulatory subject supports the diagnosis of Diabetes Mellitus. Glucose mean value [Mass/vol ume] in Blood Estimated from glycated hemoglobinOrdered By: Pérez Barcenas on 11-08-2023 Average glucose Estimated from glycated hemoglobin (Bld) [Mass/Vol] 97 mg/dL [facility] Hemoglobin A1c percentageOrd ered By: Pérez Barcenas on 11-08-2023 HbA1c (Bld) [Mass fraction] 5.0 % 4.3-5.6 [facility] Comment on above: Increased risk for d iabetes: 5.7 - 6.4diabetes: >6.4glycemic control for adults with diabetes: <7.0 Lipid Panelon 11-08-2023 Cholesterol in LDL Elph Qn 70 mg/dL Normal 0-100 mg/dL [facility] [employer] Other Lipid Panel 54 mg/dL Normal 0-149 mg/dL [facility] [employer] Other Lipid Panel 10 mg/dL [facility] [employer] Other No Panel InformationOrdered By: Pérez Barcenas on 11-08-2023 Estimated GFR (CKD-EPI) > 60.0 mL/Min [facility] Creatinine Clearance (Chem N/A [facility] Potassium [Moles/volume] in Serum or PlasmaOrdered By: Pérez Barcenas on 11-08-2023 Potassium [Moles/Vol] 4.3 mmol/L 3.5-5.1 [facility] Protein [Mass/volume] in Ser um or PlasmaOrdered By: Pérez Barcenas on 11-08-2023 Protein [Mass/Vol] 6.5 g/dL 6.4-8.9 [facility] Serum or plasma albumin/glob ulin mass ratioOrdered By: Pérez Barcenas on 11-08-2023 Albumin/Globulin [Mass ratio] 2.0 {ratio} [facility] Serum or plasma anion gap de terminationOrdered By: Pérez Barcenas on 11-08-2023 Anion gap [Moles/Vol] 8.9 mmol/L 6.0-15.0 [facility] Serum or plasma high density lipoprotein (HDL) cholesterol measurementOrdered By: Pérez Barcenas on 11-08-2023 Cholesterol in HDL [Mass/Vol] 47 mg/dL 23-92 [facility] Comment on above: HDL CHOL ATP-III CLA SSIFICATION Cardiovascular RiskHDL > or equal to 60 mg/dL LOWHDL < 40 mg/dL HIGH Serum or plasma total choles terol/high density lipoprotein (HDL) cholesterol mass ratOrdered By: Pérez Barcenas on 11-08-2023 Cholesterol.total/Chol esterol in HDL [Mass ratio] 2.7 {ratio} <5.0 [facility] Sodium [Moles/volume] in Ser um or PlasmaOrdered By: Pérez Barcenas on 11-08-2023 Sodium [Moles/Vol] 139 mmol/L 136-145 [facility] Thyroid Stimulating Hormoneo n 11-08-2023 TSH Qn 1.60631426673 m[IU]/L Normal 0.45-5 .33 u[iU]/mL [facility] Other Thyrotropin [Units/volume] i n Serum or PlasmaOrdered By: Préez Barcenas on 11-08-2023 TSH Qn 1.24 m[IU]/L 0.45-5.33 [facility] Triglyceride [Mass/volume] i n Serum or PlasmaOrdered By: Pérez Barcenas on 11-08-2023 Triglyceride [Mass/Vol] 54 mg/dL 0-149 [facility] Comment on above: TRIG ATP III CLASSIF ICATIONTRIG less than 150 mg/dL NormalTRIG 150-199 mg/dL Borderline highTRIG 200-500 mg/dL High TRIG greater than 500 mg/dL Very highStandard traceable to the Center for Disease Conrtrol and Prevention (CDC) test method. Urea nitrogen [Mass/volume] in Serum or PlasmaOrdered By: Pérez Barcenas on 11-08-2023 Urea nitrogen [Mass/Vol] 13 mg/dL 05-02 [facility] Erythrocyte distribution wid th Auto (RBC) [Ratio]Ordered By: ERLIN Vann on 08-17-2023 Erythrocyte distribution width (RBC) [Ratio] 14.4 % 11.9-15.3 [facility] Hematocrit Auto (Bld) [Volum e fraction]Ordered By: ERLIN Vann on 08-17-2023 Hematocrit (Bld) [Volume fraction] 35.2 % 34.0-46.4 [facility] Hemoglobin [Mass/volume] in BloodOrdered By: ERLIN Vann on 08-17-2023 Hemoglobin (Bld) [Mass/Vol] 11.7 g/dL 11.8-15.4 [facility] Leukocytes [#/volume] correc roe for nucleated erythrocytes in Blood by Automated counOrdered By: ERLIN Vann on 08-17-2023 WBC corrected for nucl RBC Auto (Bld) [#/Vol] 8.0 10*3/uL 3.8-11.6 [facility] MCH Auto (RBC) [Entitic mass ]Ordered By: ERLIN Vann on 08-17-2023 MCH (RBC) [Entitic mass] 29.8 pg 24.7-34.3 [facility] MCHC Auto (RBC) [Mass/Vol]Or dered By: ERLIN Vann on 08-17-2023 MCHC (RBC) [Mass/Vol] 33.3 g/dL 32.0-35.0 [facility] MCV Auto (RBC) [Entitic vol] Ordered By: ERLIN Vann on 08-17-2023 MCV (RBC) [Entitic vol] 89.6 fL 80-100 [facility] Platelet mean volume Auto (B ld) [Entitic vol]Ordered By: ERLIN Vann on 08-17-2023 Platelet mean volume (Bld) [Entitic vol] 8.1 fL 6.3-10.7 [facility] Platelets Auto (Bld) [#/Vol] Ordered By: ERLIN Vann on 08-17-2023 Platelets (Bld) [#/Vol] 186 10*3/uL 150-450 [facility] RBC Auto (Bld) [#/Vol]Ordere d By: ERLIN Vann on 08-17-2023 RBC (Bld) [#/Vol] 3.93 10*6/uL 3.60-5.00 [facility] CNPNon 08-16-2023 CNPN Telephone ([place]) ----- CHARIS ALLEN ([id number]) 4 F Date Time Provider Department 08/16/23 [...] calling: self Call patient at: at home [phone] (home) [phone] (cell) Was an appointment scheduled: No Closing statement: Results or non-symptom based questions: Thank you for calling [facility], your call will be returned within the [...] 12/24/2009 Date Reviewed: 06/01/2023 Reviewed by: Mili Iverosn RN - Fully Assessed Reason for Visit: Patient Question [1477] Prescriptions as of 08/21/2023 - Sulfacetamide Sodium-Sulfur [...] Status:Closed by MAMTA HERNÁNDEZ LPN on 08/21/23 Normal [facility] BILIRUBIN CONJUGATED (DIRECT )on 01-03-2023 BILI, CONJUGATED 0.2 mg/dL Normal 0.0-0.2 [facility] Comment on above: Performed By: #### D NAN, CMP #### [facility] [address] [address] [address] Yvette Ohara PROF 14(COMP METB)on 023 Albumin [Mass/Vol] 4.1 g/dL Normal 3.4-5.0 [facility] Comment on above: Performed By: #### D NAN, CMP #### [facility] [address] [place] [address] Dr. Yvette Ohara Albumin/Globulin [Mass ratio] 1.3 {ratio} Normal [facility] Comment on above: Performed By: #### D NAN, CMP #### [facility] [address] [place] [address] Dr. Yvette Ohara ALP [Catalytic activity/Vol] 122 U/L Critically high 46-116 [facility] Comment on above: Performed By: #### D NAN, CMP #### [facility] [address] [place] [address] Dr. Yvette Ohara ALT [Catalytic activity/Vol] 38 U/L Normal 14-59 [facility] Comment on above: Performed By: #### D NAN, CMP #### [facility] [address] [address] [address] Yvtete Ohara Anion gap [Moles/Vol] 13.9 mmol/L Normal [facility] Comment on above: Performed By: #### D NAN, CMP #### [facility] [address] [address] [address] Yvette Ohara AST [Catalytic activity/Vol] 20 U/L Normal 15-37 [facility] Comment on above: Performed By: #### D NAN, CMP #### [facility] [address] [place] [address] Dr. Yvette Ohara Bilirubin [Mass/Vol] 0.9 mg/dL Normal 0.2-1.0 [facility] Comment on above: Performed By: #### D NAN, CMP #### [facility] [address] [address] [address] Yvette Ohara Calcium [Mass/Vol] 9.2 mg/dL Normal 8.5-10.1 [facility] Comment on above: Performed By: #### D NAN, CMP #### [facility] [address] [address] [address] Yvette Ohara Chloride [Moles/Vol] 107 mmol/L Normal 98-107 [facility] Comment on above: Performed By: #### D NAN, CMP #### [facility] [address] [address] [address] Yvette Ohara CO2 [Moles/Vol] 26.9 mmol/L Normal 21.0-32.0 [facility] Comment on above: Performed By: #### D NAN, CMP #### [facility] [address] [address] [address] Yvette Ohara Creatinine [Mass/Vol] 0.87 mg/dL Normal 0.55-1.02 [facility] Comment on above: Performed By: #### D NAN, CMP #### [facility] [address] [place] [address] Dr. Yvette Ohara EGFR-AF CAMBODIAN >60 Normal >=60 [facility] Comment on above: Performed By: #### D NAN, CMP #### [facility] [address] [address] [address] Yvette Ohara EGFR-NON AF CAMBODIAN >60 Normal >=60 [facility] Comment on above: Performed By: #### D NAN, CMP #### [facility] [address] [address] [address] Yvette Ohara Globulin (S) [Mass/Vol] 3.2 g/dL Normal [facility] Comment on above: Performed By: #### D NAN, CMP #### [facility] [address] [address] [address] Yvette Ohara Glucose [Mass/Vol] 141 mg/dL Critically high 74-106 [facility] Comment on above: Performed By: #### D NAN, CMP #### [facility] [address], [place] [address] Dr. Yvette Ohara Potassium [Moles/Vol] 3.8 mmol/L Normal 3.5-5.1 [facility] Comment on above: Performed By: #### D NAN, CMP #### [facility] [address] [address] [address] Yvette Ohara Protein [Mass/Vol] 7.3 g/dL Normal 6.4-8.2 [facility] Comment on above: Performed By: #### D NAN, CMP #### [facility] [address] [address] [address] Yvette Ohara Sodium [Moles/Vol] 144 mmol/L Normal 136-145 [facility] Comment on above: Performed By: #### D NAN, CMP #### [facility] [address] [address] [address] Yvette Ohara Urea nitrogen [Mass/Vol] 9.0 mg/dL Normal 7.0-18.0 [facility] Comment on above: Performed By: #### D NAN, CMP #### [facility] [address] [address] [address] Yvette Ohara Urea nitrogen/Creatinine [Mass ratio] 10.3 mg/mg Normal [facility] Comment on above: Performed By: #### D NAN, CMP #### [facility] [address] [address] [address] Yvette Ohara IGF 101-02-2023 INSULIN LIKE GROWTH FACTOR I 391 [facility] Comment on above: Result Comment: Refe rence [...] 10 years 85 - 89 PERFORMED AT [facility] Performed By: #### L IGF1 #### Testing performed at [facility] SALIVARY CORTISOLon 12-27-19 Salivary Cortisol, [place] 0.021 ug/dL Normal [facility] Comment on above: Result Comment: This test was developed and its performance characteristics determined by [facility]. It has not been cleared or approved by the Food and Drug Administration. Reference Range: Children and Adults: 8:00a.m.: 0.025 - 0.600 Noon: <0.010 - 0.330 4:00p.m.: 0.010 - 0.200 Midnight: <0.010 - 0.090 Performed By: #### C JESSICA DOWLING #### [facility] [address] [place] [address] Dr. Yvette Ohara TESTOSTERONE, FREE,DIRECT, T OTALon 12-21-2022 Free Testosterone(Direct) 2.4 pg/mL Normal 0.0-4.2 [facility] Comment on above: Result Comment: Perf ormed at: BN Performed By: #### T ESTFRD #### [facility] [address] [place] [address] Dr. Yvette Ohara Testosterone [Mass/Vol] 41 ng/dL Normal 13-71 [facility] Comment on above: Result Comment: Perf ormed at: CB Performed By: #### T ESTFRD #### [facility] [address] [place] [address] Dr. Yvette Ohara DHEA-SULFATEon 12-16-2022 DHEA-Sulfate 410.0 ug/dL Normal 110.0-431. 7 [facility] Comment on above: Performed By: #### C JESSICA DOWLING #### [facility] [address] [place] [address] Dr. Yvette Ohara INSULINon 12-16-2022 Insulin 16.6 uIU/mL Normal 2.6-24.9 [facility] Comment on above: Performed By: #### JESSICA Alexandre MP #### [facility] [address] [place] [address] Dr. Yvette Ohara GLYCOHEMOGLOBIN A1Con 2022 ADA RECOMMENDATION SEE BELOW Normal [facility] Comment on above: Result Comment: ADA RECOMMENDED LIMIT 4.0 - 6.0 ADA THERAPEUTIC TARGET < 7.0 ACTION SUGGESTED > 7.0 Performed By: #### A 1C #### [facility] [address] [address] [address] Yvette Ohara Glucose [Mass/Vol] 108 mg/dL Normal [facility] Comment on above: Performed By: #### A 1C #### [facility] [address] [place] [address] Dr. Yvette Ohara HbA1c (Bld) [Mass fraction] 5.4 % Normal 4.5-6.2 [facility] Comment on above: Performed By: #### A 1C #### [facility] [address] [place] [address] Dr. Yvette Ohara PROF 14(COMP METB)on 023 Albumin [Mass/Vol] 4.4 g/dL Normal 3.4-5.0 [facility] Comment on above: Performed By: #### C MP, TSH, T4 #### [facility] [address] [place] [address] Dr. Yvette Ohara Albumin/Globulin [Mass ratio] 1.3 {ratio} Normal [facility] Comment on above: Performed By: #### C MP, TSH, T4 #### [facility] [address] [place] [address] Dr. Yvette Ohara ALP [Catalytic activity/Vol] 133 U/L Critically high 46-116 [facility] Comment on above: Performed By: #### C MP, TSH, T4 #### [facility] [address] [place] [address] Dr. Yvette Ohara ALT [Catalytic activity/Vol] 32 U/L Normal 14-59 [facility] Comment on above: Performed By: #### C MP, TSH, T4 #### [facility] [address] [place] [address] Dr. Yvette Ohara Anion gap [Moles/Vol] 12.9 mmol/L Normal [facility] Comment on above: Performed By: #### C MP, TSH, T4 #### [facility] [address] [address] [address] Yvette Ohara AST [Catalytic activity/Vol] 18 U/L Normal 15-37 [facility] Comment on above: Performed By: #### C MP, TSH, T4 #### [facility] [address] [place] [address] Dr. Yvette Ohara Bilirubin [Mass/Vol] 1.2 mg/dL Critically high 0.2-1.0 [facility] Comment on above: Performed By: #### C MP, TSH, T4 #### [facility] [address] [place] [address] Dr. Yvette Ohara Calcium [Mass/Vol] 9.5 mg/dL Normal 8.5-10.1 [facility] Comment on above: Performed By: #### C MP, TSH, T4 #### [facility] [address] [place] [address] Dr. Yvette Ohara Chloride [Moles/Vol] 106 mmol/L Normal 98-107 [facility] Comment on above: Performed By: #### C MP, TSH, T4 #### [facility] [address] [place] [address] Dr. Yvette Ohara CO2 [Moles/Vol] 28.0 mmol/L Normal 21.0-32.0 [facility] Comment on above: Performed By: #### C MP, TSH, T4 #### [facility] [address] [place] [address] Dr. Yvette Ohara Creatinine [Mass/Vol] 0.85 mg/dL Normal 0.55-1.02 [facility] Comment on above: Performed By: #### C MP, TSH, T4 #### [facility] [address] [place] [address] Dr. Yvette Ohara EGFR-AF CAMBODIAN >60 Normal >=60 [facility] Comment on above: Performed By: #### C MP, TSH, T4 #### [facility] [address] [place] [address] Dr. Yvette Ohara EGFR-NON AF CAMBODIAN >60 Normal >=60 [facility] Comment on above: Performed By: #### C MP, TSH, T4 #### [facility] [address] [address] [address] Yvette Ohara Globulin (S) [Mass/Vol] 3.3 g/dL Normal [facility] Comment on above: Performed By: #### C MP, TSH, T4 #### [facility] [address] [place] [address] Dr. Yvette Ohara Glucose [Mass/Vol] 98 mg/dL Normal 74-106 [facility] Comment on above: Performed By: #### C MP, TSH, T4 #### [facility] [address] [place] [address] Dr. Yvette Ohara Potassium [Moles/Vol] 3.9 mmol/L Normal 3.5-5.1 [facility] Comment on above: Performed By: #### C MP, TSH, T4 #### [facility] [address] [place] [address] Dr. Yvette Ohara Protein [Mass/Vol] 7.7 g/dL Normal 6.4-8.2 [facility] Comment on above: Performed By: #### C MP, TSH, T4 #### [facility] [address] [place] [address] Dr. Yvette Ohara Sodium [Moles/Vol] 143 mmol/L Normal 136-145 [facility] Comment on above: Performed By: #### C MP, TSH, T4 #### [facility] [address] [place] [address] Dr. Yvette Ohara Urea nitrogen [Mass/Vol] 13.0 mg/dL Normal 7.0-18.0 [facility] Comment on above: Performed By: #### C MP, TSH, T4 #### [facility] [address] [place] [address] Dr. Yvette Ohara Urea nitrogen/Creatinine [Mass ratio] 15.3 mg/mg Normal [facility] Comment on above: Performed By: #### C MP, TSH, T4 #### [facility] [address] [place] [address] Dr. Yvette Ohara T4on 12-15-2022 T4 [Mass/Vol] 5.90 ug/dL Normal 4.80-13.90 [facility] Comment on above: Performed By: #### C MP, TSH, T4 #### [facility] [address], [place] [address] Dr. Yvette Ohara TSHon 12-15-2022 TSH 1.277 uIU/mL Normal 0.358-3.74 0 [facility] Comment on above: Performed By: #### C MP, TSH, T4 #### [facility] [address], [place] [address] Dr. Yvette Ohara MR Brain WO and W contrast I Von 11-16-2022 IMPRESSION: Low-lying cerebellar tonsils with slight crowding at the foramen magnum. Age-appropriate unremarkable remaining brain without acute findings or abnormal enhancement. CSF flow study, as detailed. Reinspector: FANTA Transcribe Date/Time: Nov 16 2022 9:19A Dictated by : ALIYA CROCKER MD This examination was interpreted and the report reviewed and electronically signed by: ALIYA CROCKER MD on Nov 16 2022 9:23AM [facility] DIVISION OF RADIOLOGY * * *Final Report* * * DATE OF EXAM: Nov 16 2022 8:55AM [facility] 0295 - MRI BRAIN WO/W IVCON / PROCEDURE REASON: Cerebellar tonsillar ectopia (HCC) * * * * Physician Interpretation * * * * EXAMINATION: MRI BRAIN WO/W IVCON HISTORY: Cerebellar tonsillar ectopia - Headache (atypical)/papilledema - Headache, new or worsening, positional TECHNIQUE: [...] flow: Normal biphasic CSF flow within the prepontine/premedullary cisterns, surrounding the cervicomedullary junction at the [...] tissues are unremarkable. DIVISION OF RADIOLOGY Provider, [facility] - 11/16/2022 * * *Final Report* * * DATE OF EXAM: Nov 16 2022 8:55AM [facility] 0295 - MRI BRAIN WO/W IVCON / PROCEDURE REASON: Cerebellar tonsillar ectopia (HCC) * * * * Physician Interpretation * * * * EXAMINATION: MRI BRAIN WO/W IVCON HISTORY: Cerebellar tonsillar ectopia - Headache (atypical)/papilledema - Headache, new or worsening, positional TECHNIQUE: [...] flow: Normal biphasic CSF flow within the prepontine/premedullary cisterns, surrounding the cervicomedullary junction at the [...] abnormal enhancement. CSF flow study, as detailed. Reinspector: FANTA Transcribe Date/Time: Nov 16 2022 9:19A Dictated by : ALIYA CROCKER MD This examination was interpreted and the report reviewed and electronically signed by: ALIYA CROCKER MD on Nov 16 2022 9:23AM EST [facility] Radiology Study observation (narrative) [facility] MR Brain WO and W contrast I VOrdered By: [facility] Provider on 11-16-2022 [facility] CT Abdomen/Pelvis w/o Contra ston 10-31-2022 CT [...] by Mayo Jose on 10/31/2022 1542 Normal [facility] AMYLASEon 10-21-2022 Amylase [Catalytic activity/Vol] 32 U/L Normal 25-115 [facility] Comment on above: Performed By: #### C MP, JESSICA #### [facility] [address] [place] [address] Dr. Yvette Ohara CBC AUTO DIFFon 10-21-2022 BASO # 0.0 103/ul Normal 0.0-0.1 [facility] Comment on above: Performed By: #### C BC #### [facility] [address] [place] [address] Dr. Yvette Ohara Basophils/100 WBC (Bld) 0.4 % Normal 0.2-2.0 [facility] Comment on above: Performed By: #### C BC #### [facility] [address] [place] [address] Dr. Yvette Ohara EO # 0.0 103/ul Normal 0.0-0.7 [facility] Comment on above: Performed By: #### C BC #### [facility] [address] [place] [address] Dr. Yvette Ohara Eosinophils/100 WBC (Bld) 0.4 % Critically low 0.9-7.0 [facility] Comment on above: Performed By: #### C BC #### [facility] [address] [place] [address] Dr. Yvette Ohara Erythrocyte distribution width (RBC) [Ratio] 12.1 % Normal 11.0-15.0 [facility] Comment on above: Performed By: #### C BC #### [facility] [address] [place] [address] Dr. Yvette Ohara Hematocrit (Bld) [Volume fraction] 50.0 % Critically high 36.0-48.0 [facility] Comment on above: Performed By: #### C BC #### [facility] [address] [place] [address] Dr. Yvette Ohara Hemoglobin (Bld) [Mass/Vol] 15.1 g/dL Normal 12.0-16.0 [facility] Comment on above: Performed By: #### C BC #### [facility] [address] [place] [address] Dr. Yvette Ohara IG # 0.02 10e3/ul Normal 0.00-0.03 [facility] Comment on above: Performed By: #### C BC #### [facility] [address] [place] [address] Dr. Yvette Ohara IG % 0.3 % Normal 0.0-0.5 [facility] Comment on above: Performed By: #### C BC #### [facility] [address] [place] [address] Dr. Yvette Ohara LYMPH # 2.1 103/ul Normal 1.2-3.8 [facility] Comment on above: Performed By: #### C BC #### [facility] [address] [place] [address] Dr. Yvette Ohara Lymphocytes/100 WBC (Bld) 28.7 % Normal 20.5-60.0 [facility] Comment on above: Performed By: #### C BC #### [facility] [address] [place] [address] Dr. Yvette Ohara MANUAL DIFF REQ NO Normal [facility] Comment on above: Performed By: #### C BC #### [facility] [address] [place] [address] Dr. Yvette Ohara MCH (RBC) [Entitic mass] 29.4 pg Normal 26.7-34.0 [facility] Comment on above: Performed By: #### C BC #### [facility] [address] [place] [address] Dr. Yvette Ohara MCHC (RBC) [Mass/Vol] 30.2 g/dL Normal 29.9-35.2 [facility] Comment on above: Performed By: #### C BC #### [facility] [address] [place] [address] Dr. Yvette Ohara MCV (RBC) [Entitic vol] 97.5 fL Normal 81.0-99.0 [facility] Comment on above: Performed By: #### C BC #### [facility] [address] [place] [address] Dr. Yvette Ohara MONO # 0.6 103/ul Normal 0.3-0.8 [facility] Comment on above: Performed By: #### C BC #### [facility] [address] [place] [address] Dr. Yvette Ohara Monocytes/100 WBC (Bld) 7.8 % Normal 1.7-12.0 [facility] Comment on above: Performed By: #### C BC #### [facility] [address] [place] [address] Dr. Yvette Ohara NEUT # 4.5 103/ul Normal 1.4-6.5 [facility] Comment on above: Performed By: #### C BC #### [facility] [address] [place] [address] Dr. Yvette Ohara Neutrophils/100 WBC (Bld) 62.4 % Normal 43.0-75.0 [facility] Comment on above: Performed By: #### C BC #### [facility] [address] [place] [address] Dr. Yvette Ohara Platelet mean volume (Bld) [Entitic vol] 10.3 fL Normal 9.5-13.5 [facility] Comment on above: Performed By: #### C BC #### [facility] [address] [place] [address] Dr. Yvette Ohara PLT 242 103/ul Normal 150-450 [facility] Comment on above: Performed By: #### C BC #### [facility] [address] [place] [address] Dr. Yvette Ohara RBC 5.13 106/ul Normal 4.20-5.40 [facility] Comment on above: Performed By: #### C BC #### [facility] [address] [place] [address] Dr. Yvette Ohara WBC 7.2 103/ul Normal 4.0-11.0 [facility] Comment on above: Performed By: #### C BC #### [facility] [address] [place] [address] Dr. Yvette Ohara PROF 14(COMP METB)on 023 Albumin [Mass/Vol] 4.1 g/dL Normal 3.4-5.0 [facility] Comment on above: Performed By: #### C MP, JESSICA #### [facility] [address] [place] [address] Dr. Yvette Ohara Albumin/Globulin [Mass ratio] 1.3 {ratio} Normal [facility] Comment on above: Performed By: #### C MP, JESSICA #### [facility] [address] [address] [address] Yvette Ohara ALP [Catalytic activity/Vol] 117 U/L Critically high 46-116 [facility] Comment on above: Performed By: #### C MP, JESSICA #### [facility] [address] [place] [address] Dr. Yvette Ohara ALT [Catalytic activity/Vol] 58 U/L Normal 14-59 [facility] Comment on above: Performed By: #### C MP, JESSICA #### [facility] [address] [place] [address] Dr. Yvette Ohara Anion gap [Moles/Vol] 14.6 mmol/L Normal [facility] Comment on above: Performed By: #### C MP, JESSICA #### [facility] [address] [place] [address] Dr. Yvette Ohara AST [Catalytic activity/Vol] 27 U/L Normal 15-37 [facility] Comment on above: Performed By: #### C MP, JESSICA #### [facility] [address] [place] [address] Dr. Yvette Ohara Bilirubin [Mass/Vol] 1.4 mg/dL Critically high 0.2-1.0 [facility] Comment on above: Performed By: #### C MP, JESSICA #### [facility] [address] [place] [address] Dr. Yvette Ohara Calcium [Mass/Vol] 9.1 mg/dL Normal 8.5-10.1 [facility] Comment on above: Performed By: #### C MP, JESSICA #### [facility] [address] [place] [address] Dr. Yvette Ohara Chloride [Moles/Vol] 104 mmol/L Normal 98-107 [facility] Comment on above: Performed By: #### C MP, JESSICA #### [facility] [address] [place] [address] Dr. Yvette Ohara CO2 [Moles/Vol] 26.0 mmol/L Normal 21.0-32.0 [facility] Comment on above: Performed By: #### C MP, JESSICA #### [facility] [address] [place] [address] Dr. Yvette Ohara Creatinine [Mass/Vol] 0.92 mg/dL Normal 0.55-1.02 [facility] Comment on above: Performed By: #### C MP, JESSICA #### [facility] [address] [place] [address] Dr. Yvette Ohara EGFR-AF CAMBODIAN >60 Normal >=60 [facility] Comment on above: Performed By: #### C MP, JESSICA #### [facility] [address] [place] [address] Dr. Yvette Ohara EGFR-NON AF CAMBODIAN >60 Normal >=60 [facility] Comment on above: Performed By: #### C MP, JESSICA #### [facility] [address] [place] [address] Dr. Yvette Ohara Globulin (S) [Mass/Vol] 3.1 g/dL Normal [facility] Comment on above: Performed By: #### C MP, JESSICA #### [facility] [address] [place] [address] Dr. Yvette Ohara Glucose [Mass/Vol] 94 mg/dL Normal 74-106 [facility] Comment on above: Performed By: #### C MP, JESSICA #### [facility] [address] [place] [address] Dr. Yvette Ohara Potassium [Moles/Vol] 3.6 mmol/L Normal 3.5-5.1 [facility] Comment on above: Performed By: #### C MP, JESSICA #### [facility] [address] [place] [address] Dr. Yvette Ohara Protein [Mass/Vol] 7.2 g/dL Normal 6.4-8.2 [facility] Comment on above: Performed By: #### C MP, JESSICA #### [facility] [address] [address] [address] Yvette Ohara Sodium [Moles/Vol] 141 mmol/L Normal 136-145 [facility] Comment on above: Performed By: #### C MP, JESSICA #### [facility] [address] [address] [address] Yvette Ohara Urea nitrogen [Mass/Vol] 13.0 mg/dL Normal 7.0-18.0 [facility] Comment on above: Performed By: #### C MP, JESSICA #### [facility] [address] [address] [address] Yvette Ohara Urea nitrogen/Creatinine [Mass ratio] 14.1 mg/mg Normal [facility] Comment on above: Performed By: #### C MP, JESSICA #### [facility] [address] [address] [address] 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 [...] MRI: No Colonoscopy: Yes diagnostic, Date in Epic: 07/2015; results - negative RISK FACTORS FOR [...] repeated afte (more content not included)... Normal [facility] T4 Free SerPl-mCncon 023 Free T4 [Mass/Vol] 0.8 ng/dL Low 0.9-1.7 [facility] Comment on above: Order Comment: Speci men Type: BLOOD SPECIMEN Ordering Facility: [facility] Address: [address] [place] [address] [place] [address] Performed By: #### 3 024-7 #### [facility] CLIA [id number] [facility] [id number] [id number] [place] TSH SerPl-aCncon 10-13-2022 TSH Qn 2.150 m[IU]/L Normal 0.510-4.30 0 [facility] Comment on above: Order Comment: Speci men Type: BLOOD SPECIMEN Ordering Facility: [facility] Address: [address] [id number] Result Comment: If t he patient is , TSH reference range varies by gestational period: First Trimester (weeks 9-12): 0.180-2.990 mIU/L Second Trimester: 0.110-3.980 mIU/L Third Trimester: 0.480-4.710 mIU/L Ángel Cervantes et al. A Practical Approach for the Verifications and Determination of Site- and Trimester-Specific Reference Intervals for Thyroid Function tests in . Thyroid, 2019:29:3:412-420. Prem Ledesma, et al. 2017 Guidelines of the [place] Thyroid Association for the Diagnosis and Management of Thyroid Disease during and the . Thyroid, 2017:27:3:315-389. Reference ranges were not locally established for this patient's age group. The normal values are based on the following source: Marlin WJosh V. Reference Ranges for Adults and Children: Pre-analytical Considerations. [facility] Performed By: #### 3 016-3 #### [facility] CLIA [id number] [id number] [place] SARS-CoV-2 (COVID-19) RNA NA A+probe Ql (Resp)on 06-24-2022 SARS-CoV-2 (COVID-19) RNA JANET+probe Ql (Unsp spec) Negative [facility] Other MR Brain WO and W contrast I Von 12-29-2021 * * *Final Report* * * DATE OF EXAM: Dec 29 2021 12:13PM LNM 0295 - MRI BRAIN WO/W IVCON / PROCEDURE REASON: Thunderclap headache * * * * Physician Interpretation * * * * EXAMINATION: MRI BRAIN WO/W IVCON, MRV BRAIN WO/W IVCON HISTORY: Thunderclap headache. Headache after Covid infection. TECHNIQUE: Routine brain MRI protocol without and with contrast including diffusion and gradient echo images. 2-D yisx-lz-fgziby MRV and postcontrast MRV of the brain. [...] enhancement indicating patency. DIVISION OF RADIOLOGY Provider, [facility] - 12/29/2021 * * *Final Report* * * DATE OF EXAM: Dec 29 2021 12:13PM LNM 0295 - MRI BRAIN WO/W IVCON / PROCEDURE REASON: Thunderclap headache * * * * Physician Interpretation * * * * EXAMINATION: MRI BRAIN WO/W IVCON, MRV BRAIN WO/W IVCON HISTORY: Thunderclap headache. Headache after Covid infection. TECHNIQUE: Routine brain MRI protocol without and with contrast including diffusion and gradient echo images. 2-D oflh-dd-rcwazc MRV and postcontrast MRV of the brain. [...] No evidence of dural venous sinus thrombosis. Reinspector: [facility] Transcribe Date/Time: Dec 29 2021 12:34P Dictated by : MILTON WAGNER MD This examination was interpreted and the report reviewed and electronically signed by: MILTON WAGNER MD on Dec 29 2021 12:40PM [facility] MRA Head veins WO and W cont [...] including diffusion and gradient echo images. 2-D eieg-td-fpfnrv MRV and postcontrast MRV of the brain. [...] enhancement indicating patency. DIVISION OF RADIOLOGY Provider, [facility] - 12/29/2021 * * *Final Report* * [...] including diffusion and gradient echo images. 2-D wjaw-lc-qvuerh MRV and postcontrast MRV of the brain. [...] No evidence of dural venous sinus thrombosis. Reinspector: FANTA Transcribe Date/Time: Dec 29 2021 12:34P Dictated by : MILTON WAGNER MD This examination was interpreted and the report reviewed and electronically signed by: MILTON WAGNER MD on Dec 29 2021 12:40PM [facility] Panel Informationon 12-29 IMPRESSION: MRI BRAIN: No evidence of an acute intracranial process. Low-lying cerebellar tonsils. MRV BRAIN: No evidence of dural venous sinus thrombosis. Reinspector: FANTA Transcribe Date/Time: Dec 29 2021 12:34P Dictated by : MILTON WAGNER MD This examination was interpreted and the report reviewed and electronically signed by: MILTON WAGNER MD on Dec 29 2021 12:40PM [facility] DIVISION OF RADIOLOGY Radiology Study observation (narrative) [facility] No Panel InformationOrdered By: [facility] Provider on 12-29-2021 [facility] ANKLE RIGHT 3 Son 06-13-20 17 ANKLE RIGHT 3 [facility] [address] [place] [address] P atient Name: CHARIS ALLEN : 2000Sex: FAge: Race: WhiteMRN: [id number]. Location: EMERPatient Status: EVisit #: [id number] Date: 06/13/2017 5:40:00 PMCompleted Date: 06/13/2017 05:54 PMRequesting Provider: SREEKANTH JOHNSON Attending Provider: SREEKANTH JOHNSON Report Copy To: Signs & Symptoms: Pain ( specify Location)History: Patient history not availableComments: R/O FXExam: ANKLE RIGHT 3 VWSAccession #: [id number] ======ANKLE RIGHT 3 S 06/13/2017 5:54 PM EDT SIGNS AND SYMPTOMS: [...] Electronically signed by:Faye Ramires M.D.. Transcribed by: [email or web address], User Resident: Electronically Signed by: FAYE RAMIRES @ 06/13/2017 06:44 PM Normal [facility] Comment on above: Order Comment: R/O F X Vital Signs Date Time Vital Sign Value Performing Clinician Facility 02-18-2025 21:50-0400 Diastolic blood pressure 78 mm[Hg] Katie Thapa DO Work Phone: [facility] 02-18-2025 21:50-0400 Heart rate 84 /min Katie Thapa DO Work Phone: [phone] [place] [address] 02-18-2025 21:50-0400 Respiratory rate 20 /min Katie Thapa DO Work Phone: [facility] 02-18-2025 21:50-0400 SaO2% (BldA) [Mass fraction] 98 % Katie Thapa DO Work Phone: [facility] 02-18-2025 21:50-0400 Systolic blood pressure 120 mm[Hg] Katie Thapa DO Work Phone: [facility] 02-18-2025 19:45-0400 Body temperature 98.4 [degF] Katie Thapa DO Work Phone: [facility] 02-18-2025 15:20-0400 Body height 167.64 cm Katie Thapa DO Work Phone: [facility] 02-18-2025 15:20-0400 Body weight 70.8 kg Katie Thapa DO Work Phone: [facility] 01-11-2025 19:22-0400 Heart rate 72 /min Milton Garcia MD Work Phone: [facility] 01-11-2025 19:22-0400 Respiratory rate 18 /min Milton Garcia MD Work Phone: [facility] 01-11-2025 19:22-0400 SaO2% (BldA) [Mass fraction] 100 % Milton Garcia MD Work Phone: [facility] 01-11-2025 19:20-0400 Diastolic blood pressure 73 mm[Hg] Milton Garcia MD Work Phone: [facility] 01-11-2025 19:20-0400 Systolic blood pressure 108 mm[Hg] Milton Garcia MD Work Phone: [facility] 01-11-2025 18:30-0400 Body height 170.2 cm Milton Garcia MD Work Phone: [facility] 01-11-2025 18:30-0400 Body mass index (BMI) [Ratio] 24.53 kg/m2 Milton Garcia MD Work Phone: [facility] 01-11-2025 18:30-0400 Body temperature 98.01 [degF] Milton Garcia MD Work Phone: [facility] 01-11-2025 18:30-0400 Body weight 71.03 kg Milton Garcia MD Work Phone: [facility] 11-30-2024 23:39-0500 Body height 170.2 cm Rohit Rob MD Work Phone: [facility] 11-30-2024 23:39-0500 Body mass index (BMI) [Ratio] 23.63 kg/m2 Rohit Rob MD Work Phone: [facility] 11-30-2024 23:39-0500 Body temperature 97.59 [degF] Rohit Rob MD Work Phone: [facility] 11-30-2024 23:39-0500 Body weight 68.45 kg Rohit Rob MD Work Phone: [facility] 11-30-2024 23:39-0500 Diastolic blood pressure 75 mm[Hg] Rohit Rob MD Work Phone: [facility] 11-30-2024 23:39-0500 Heart rate 97 /min Rohit Rob MD Work Phone: [facility] 11-30-2024 23:39-0500 Respiratory rate 16 /min Rohit Rob MD Work Phone: [facility] 11-30-2024 23:39-0500 SaO2% (BldA) [Mass fraction] 100 % Rohit Rob MD Work Phone: [facility] 11-30-2024 23:39-0500 Systolic blood pressure 115 mm[Hg] Rohit Rob MD Work Phone: [facility] 11-16-2024 02:37-0500 Diastolic blood pressure 71 mm[Hg] Akiko Acosta MD Work Phone: [facility] 11-16-2024 02:37-0500 Heart rate 70 /min Akiko Acosta MD Work Phone: [facility] 11-16-2024 02:37-0500 Respiratory rate 13 /min Akiko Acosta MD Work Phone: [facility] 11-16-2024 02:37-0500 SaO2% (BldA) [Mass fraction] 100 % Akiko Acosta MD Work Phone: [facility] 11-16-2024 02:37-0500 Systolic blood pressure 106 mm[Hg] Akiko Acosta MD Work Phone: [facility] 11-16-2024 00:53-0500 Body height 167.6 cm Akiko Acosta MD Work Phone: [facility] 11-16-2024 00:53-0500 Body mass index (BMI) [Ratio] 24.28 kg/m2 Akiko Acosta MD Work Phone: [facility] 11-16-2024 00:53-0500 Body weight 68.22 kg Akiko Acosta MD Work Phone: [facility] 11-16-2024 00:51-0500 Body temperature 97.59 [degF] Akiko Acosta MD Work Phone: [facility] 11-04-2024 13:35-0500 Body height 170.2 cm Osbaldo-Catie Vu DO Work Phone: [facility] 11-04-2024 13:35-0500 Body mass index (BMI) [Ratio] 23.56 kg/m2 Osbaldo-Catie Vu DO Work Phone: [facility] 11-04-2024 13:35-0500 Body temperature 98.1 [degF] Osbaldo-Catie Vu DO Work Phone: [facility] 11-04-2024 13:35-0500 Body weight 68.22 kg Osbaldo-Catie Vu DO Work Phone: [facility] 10-23-2024 15:48-0500 Body mass index (BMI) [Ratio] 24.28 kg/m2 Jona Vann MD Work Phone: [facility] 10-23-2024 15:48-0500 Body weight 70.31 kg Jona Vann MD Work Phone: [facility] 10-23-2024 15:48-0500 Diastolic blood pressure 64 mm[Hg] Jona Vann MD Work Phone: [facility] 10-23-2024 15:48-0500 Systolic blood pressure 100 mm[Hg] Jona Vann MD Work Phone: [facility] 10-21-2024 13:50-0500 Body height 170.2 cm Anil Thapa DO Work Phone: [facility] 10-21-2024 13:50-0500 Body mass index (BMI) [Ratio] 23.65 kg/m2 Anil Thapa DO Work Phone: [facility] 01-13-2025 13:50-0500 Body temperature 97.11 [degF] Anil Thapa DO Work Phone: [facility] 10-21-2024 13:50-0500 Body weight 68.49 kg Anil Thapa DO Work Phone: [facility] 10-21-2024 13:50-0500 Diastolic blood pressure 72 mm[Hg] Anil Thapa DO Work Phone: [facility] 10-21-2024 13:50-0500 Heart rate 75 /min Anil Thapa DO Work Phone: [facility] 10-21-2024 13:50-0500 SaO2% (BldA) [Mass fraction] 99 % Anil Thapa DO Work Phone: [facility] 10-21-2024 13:50-0500 Systolic blood pressure 108 mm[Hg] Anil Thapa DO Work Phone: [facility] 09-11-2024 10:34-0500 Body height 167.6 cm Osbaldo-Catie Vu DO Work Phone: [facility] 09-11-2024 10:34-0500 Body mass index (BMI) [Ratio] 23.38 kg/m2 Osbaldo-Catie Vu DO Work Phone: [facility] 09-11-2024 10:34-0500 Body temperature 97.59 [degF] Osbaldo-Catie Vu DO Work Phone: [facility] 09-11-2024 10:34-0500 Body weight 65.68 kg Osbaldo-Catie Vu DO Work Phone: [facility] 09-10-2024 16:03-0500 Body height 167.6 cm Mich Verde MD Work Phone: [facility] 09-10-2024 16:03-0500 Body mass index (BMI) [Ratio] 24.37 kg/m2 Mich Verde MD Work Phone: [facility] 09-10-2024 16:03-0500 Body weight 68.49 kg Mich Verde MD Work Phone: [facility] 09-10-2024 16:03-0500 Respiratory rate 18 /min Mich Verde MD Work Phone: [facility] 08-20-2024 14:49-0500 Body height 167.6 cm [facility] 08-20-2024 14:49-0500 Body mass index (BMI) [Ratio] 22.11 kg/m2 [facility] 08-20-2024 14:49-0500 Body weight 62.14 kg [facility] 08-13-2024 14:14-0500 Body mass index (BMI) [Ratio] 23.81 kg/m2 Jona Vann MD Work Phone: [facility] 08-13-2024 14:14-0500 Body weight 68.95 kg Jona Vann MD Work Phone: [facility] 08-13-2024 14:14-0500 Diastolic blood pressure 58 mm[Hg] Jona Vann MD Work Phone: [facility] 08-13-2024 14:14-0500 Systolic blood pressure 100 mm[Hg] Jona Vann MD Work Phone: [facility] 08-07-2024 10:10-0400 Body height 167.6 cm Osbaldo-Catie Vu DO Work Phone: [facility] 08-07-2024 10:10-0400 Body mass index (BMI) [Ratio] 24.82 kg/m2 Osbaldo-Catie Vu DO Work Phone: [facility] 08-07-2024 10:10-0400 Body temperature 98.2 [degF] Osbaldo-Catie Vu DO Work Phone: [facility] 08-07-2024 10:10-0400 Body weight 69.76 kg Osbaldo-Catie Vu DO Work Phone: [facility] 07-17-2024 14:48-0400 Body height 170.2 cm Harmony German PA Work Phone: [facility] 07-17-2024 14:48-0400 Body mass index (BMI) [Ratio] 24.18 kg/m2 Harmony German PA Work Phone: [facility] 07-17-2024 14:48-0400 Body temperature 97.7 [degF] Harmony German PA Work Phone: [facility] 07-17-2024 14:48-0400 Body weight 70.03 kg Harmony German PA Work Phone: [facility] 07-17-2024 14:48-0400 Diastolic blood pressure 68 mm[Hg] Harmony German PA Work Phone: [facility] 07-17-2024 14:48-0400 Heart rate 70 /min Harmony German PA Work Phone: [facility] 07-17-2024 14:48-0400 SaO2% (BldA) [Mass fraction] 99 % Harmony German PA Work Phone: [facility] 07-17-2024 14:48-0400 Systolic blood pressure 116 mm[Hg] Harmony German PA Work Phone: [facility] 07-15-2024 15:38-0400 Body height 170.2 cm Mich Verde MD Work Phone: [facility] 07-15-2024 15:38-0400 Body mass index (BMI) [Ratio] 23.65 kg/m2 Mich Verde MD Work Phone: [facility] 07-15-2024 15:38-0400 Body weight 68.49 kg Mich Verde MD Work Phone: [facility] 07-03-2024 10:56-0400 Body height 170.2 cm Tiesha MCDANIEL-C Work Phone: [facility] 07-03-2024 10:56-0400 Body mass index (BMI) [Ratio] 23.65 kg/m2 Tiesha MCDANIEL-C Work Phone: [facility] 07-03-2024 10:56-0400 Body weight 68.49 kg Tiesha Rai PA-C Work Phone: [facility] 06-28-2024 02:48-0400 Diastolic blood pressure 58 mm[Hg] DO Katie Thapa Work Phone: [facility] 06-28-2024 02:48-0400 Heart rate 85 /min DO Katie Thapa Work Phone: [facility] 06-28-2024 02:48-0400 Respiratory rate 18 /min DO Katie Thapa Work Phone: [facility] 06-28-2024 02:48-0400 SaO2% (BldA) [Mass fraction] 100 % DO Katie Thapa Work Phone: [facility] 06-28-2024 02:48-0400 Systolic blood pressure 98 mm[Hg] DO Katie Thapa Work Phone: [facility] 06-27-2024 22:17-0400 Body height 170.18 cm DO Katie Thapa Work Phone: [facility] 06-27-2024 22:17-0400 Body temperature 97.9 [degF] DO Katie Thapa Work Phone: [facility] 06-27-2024 22:17-0400 Body weight 69.75 kg DO Katie Thapa Work Phone: [facility] 05-21-2024 13:37-0400 Body height 170.2 cm [facility] 05-21-2024 13:37-0400 Body mass index (BMI) [Ratio] 24.31 kg/m2 [facility] 05-21-2024 13:37-0400 Body temperature 98.2 [degF] [facility] 05-21-2024 13:37-0400 Body weight 70.4 kg [facility] 4 [facility] 05-21-2024 13:37-0400 Diastolic blood pressure 67 mm[Hg] [facility] 05-21-2024 13:37-0400 Heart rate 83 /min [facility] 4 [facility] 05-21-2024 13:37-0400 Respiratory rate 18 /min [facility] 05-21-2024 13:37-0400 SaO2% (BldA) [Mass fraction] 100 % [facility] 4 [facility] 05-21-2024 13:37-0400 Systolic blood pressure 108 mm[Hg] [facility] 03-18-2024 14:24-0400 Body height 170.2 cm Mich Verde MD Work Phone: [facility] 03-18-2024 14:24-0400 Body mass index (BMI) [Ratio] 24.12 kg/m2 Mich Verde MD Work Phone: [facility] 03-18-2024 14:24-0400 Body temperature 98.4 [degF] Mich Verde MD Work Phone: [facility] 03-18-2024 14:24-0400 Body weight 69.85 kg Mich Verde MD Work Phone: [facility] 03-06-2024 16:25-0400 Body height 167.6 cm Tiesha Rai PA-C Work Phone: [facility] 03-06-2024 16:25-0400 Body mass index (BMI) [Ratio] 24.86 kg/m2 Tiesha Ira PA-C Work Phone: [facility] 03-06-2024 16:25-0400 Body temperature 98.6 [degF] Tiesha Alexanderisle PA-C Work Phone: [facility] 03-06-2024 16:25-0400 Body weight 69.85 kg Tieshakurt AlexanderFredi PA-C Work Phone: [facility] 12-19-2023 12:47-0400 Body height 167.6 cm Tiesha Rai PA-C Work Phone: [employer] 12-19-2023 12:47-0400 Body mass index (BMI) [Ratio] 26.21 kg/m2 Tiesha Zavalale PA-C Work Phone: [employer] 12-19-2023 12:47-0400 Body temperature 98.4 [degF] Tiesha Rai PA-C Work Phone: [employer] 12-19-2023 12:47-0400 Body weight 73.66 kg Tiesha Rai PA-C Work Phone: [employer] 11-08-2023 07:45-0500 Body height 167.64 cm Pérez Barcenas Other [employer] Other 11-08-2023 07:45-0500 Body mass index (BMI) [Ratio] 28.57 kg/m2 Pérez Barcenas Other [employer] Other 11-08-2023 07:45-0500 Body weight 80.29 kg Pérez Barcenas Other [employer] Other 11-08-2023 07:45-0500 Diastolic blood pressure 65 mm[Hg] Pérez Barcenas Other [employer] Other 11-08-2023 07:45-0500 Respiratory rate 18 /min [employer] Other [employer] Other 11-08-2023 07:45-0500 SaO2% (BldA) [Mass fraction] 98 % Pérez [employer] Other [employer] Other 11-08-2023 07:45-0500 Systolic blood pressure 102 mm[Hg] Pérez Barcenas Other [facility] [employer] Other 08-17-2023 21:29-0500 Body temperature 98.1 [degF] DO Katie Thapa Work Phone: [facility] 08-17-2023 21:29-0500 Diastolic blood pressure 72 mm[Hg] DO Katie Thapa Work Phone: [facility] 08-17-2023 21:29-0500 Heart rate 83 /min DO Katie Thapa Work Phone: [facility] 08-17-2023 21:29-0500 Respiratory rate 16 /min DO Katie Thapa Work Phone: [facility] 08-17-2023 21:29-0500 SaO2% (BldA) [Mass fraction] 98 % DO Katie Thapa Work Phone: [facility] 08-17-2023 21:29-0500 Systolic blood pressure 110 mm[Hg] DO Katie Thapa Work Phone: [facility] 08-17-2023 18:23-0500 Body height 167.64 cm DO Katie Thapa Work Phone: [facility] 08-17-2023 18:23-0500 Body mass index (BMI) [Ratio] 29 kg/m2 DO Katie Thapa Work Phone: [facility] 08-17-2023 18:23-0500 Body weight 81.64 kg DO Katie Thapa Work Phone: [facility] 08-17-2023 18:18-0500 Inhaled oxygen flow rate 10 L/min DO Katie Thapa Work Phone: [facility] 08-03-2023 18:45-0400 Diastolic blood pressure 75 mm[Hg] DO Katie Thapa Work Phone: [facility] 08-03-2023 18:45-0400 Heart rate 98 /min DO Katie Thapa Work Phone: [facility] 08-03-2023 18:45-0400 Respiratory rate 16 /min DO Katie Thapa Work Phone: [facility] 08-03-2023 18:45-0400 SaO2% (BldA) [Mass fraction] 98 % DO Katie Thapa Work Phone: [facility] 08-03-2023 18:45-0400 Systolic blood pressure 108 mm[Hg] DO Katie Thapa Work Phone: [facility] 08-03-2023 17:28-0400 Inhaled oxygen flow rate 6 L/min DO Katie Thapa Work Phone: [facility] 08-03-2023 17:13-0400 Body temperature 97 [degF] DO Katie Thapa Work Phone: [facility] 08-03-2023 16:26-0400 Body height 167.64 cm DO Katie Thapa Work Phone: [facility] 08-03-2023 16:26-0400 Body mass index (BMI) [Ratio] 29 kg/m2 DO Katie Thapa Work Phone: [facility] 08-03-2023 16:26-0400 Body weight 81.64 kg DO Katie Thapa Work Phone: [facility] 06-09-2023 15:15-0400 Body height 170.18 cm Arti Barahona Other [employer] Other 06-09-2023 15:15-0400 Body mass index (BMI) [Ratio] 29.97 kg/m2 Arti Barahona Other [employer] Other 06-09-2023 15:15-0400 Body temperature 98.7 [degF] Arti Barahona Other [employer] Other 06-09-2023 15:15-0400 Body weight 86.82 kg Arti Barahona Other [employer] Other 06-09-2023 15:15-0400 Diastolic blood pressure 72 mm[Hg] Arti Barahona Other [employer] Other 06-09-2023 15:15-0400 Respiratory rate 18 /min Arti Barahona Other [employer] Other 06-09-2023 15:15-0400 SaO2% (BldA) [Mass fraction] 99 % Arti Barahona Other [employer] Other 06-09-2023 15:15-0400 Systolic blood pressure 117 mm[Hg] Arti Barahona Other [employer] Other 06-01-2023 09:06-0400 Body height 167.6 cm Mara Alcaraz MD Work Phone: [facility] 06-01-2023 09:06-0400 Body weight 88.81 kg Mara Alcaraz MD Work Phone: [facility] 04-04-2023 15:33-0400 Body weight 86.[address] Work Phone: [facility] 11-14-2022 11:32-0500 Body height 167.6 cm Sreekanth Sood MD Work Phone: [facility] 11-14-2022 11:32-0500 Body weight 90.72 kg Sreekanth Sood MD Work Phone: [facility] 11-14-2022 11:32-0500 Diastolic blood pressure 67 mm[Hg] Sreekanth Sood MD Work Phone: [facility] 11-14-2022 11:32-0500 Heart rate 85 /min Sreekanth Sood Work Phone: [facility] 11-14-2022 11:32-0500 SaO2% (BldA) [Mass fraction] 100 % Sreekanth Sood Work Phone: [facility] 11-14-2022 11:32-0500 Systolic blood pressure 112 mm[Hg] Sreekanth Sood Work Phone: [facility] 08-04-2022 13:03-0400 Heart rate 92 /min Lul Mcbride MD Work Phone: [facility] 08-04-2022 13:03-0400 SaO2% (BldA) [Mass fraction] 100 % Lul Mcbride MD Work Phone: [facility] 06-24-2022 18:35-0400 Body height 170.18 cm Zully Mendoza Other [employer] Other 06-24-2022 18:35-0400 Body mass index (BMI) [Ratio] 29.75 kg/m2 Zully Mendoza Other [employer] Other 06-24-2022 18:35-0400 Body temperature 99.3 [degF] Zully Mendoza Other [employer] Other 06-24-2022 18:35-0400 Body weight 86.18 kg Zully Mendoza Other [employer] Other 06-24-2022 18:35-0400 Respiratory rate 18 /min Zully Mendoza Other [employer] Other 06-24-2022 18:35-0400 SaO2% (BldA) [Mass fraction] 97 % Zully Mendoza Other [employer] Other 12-30-2021 08:11-0400 Diastolic blood pressure 71 mm[Hg] Sreekanth Samples Work Phone: [facility] 12-30-2021 08:11-0400 Heart rate 76 /min Sreekanth Sood MD Work Phone: [facility] 12-30-2021 08:11-0400 Systolic blood pressure 117 mm[Hg] Sreekanth Samples Work Phone: [facility] NEGATED: Highlighted row BMI (Body Mass Index) Margarita [facility] NEGATED: Highlighted row Body Temperature Margarita Apple [facility] NEGATED: Highlighted row Body weight Margarita Apple [facility] NEGATED: Highlighted row BP Diastolic Margarita [facility] NEGATED: Highlighted row BP Systolic Margarita Apple [facility] NEGATED: Highlighted row Height Margarita Apple [facility] NEGATED: Highlighted row Pulse (Heart Rate) Margarita Apple [facility] NEGATED: Highlighted row Pulse Oximetry Margarita [facility] NEGATED: Highlighted row Respiratory Rate Margarita Apple [facility] Encounters Encounter Date Encounter Type Care Provider Facility Start: 03-30-2025 End: 03-30-2025 Refill Tala Vazquez APRN-CNM Work Phone: [facility] Comment on above: Miscarriage Start: 03-19-2025 End: 03-19-2025 Refill Mary Ann Levin MD Work Phone: Dermatology Comment on above: Refill Request Start: 02-27-2025 ambulatory MICH BROOKLANDNEFTALI [facility] Start: 02-26-2025 End: 02-27-2025 ambulatory ANIL THAPA JR [facility] Start: 02-22-2025 End: 02-22-2025 ambulatory [facility] Start: 02-22-2025 End: 02-22-2025 Subsequent hospital visit by physician Anil Thapa DO Work Phone: [facility] Start: 02-18-2025 End: 02-18-2025 Emergency department patient visit Katie Thapa Facility:[facility] Start: 02-15-2025 End: 02-17-2025 Refill Anil Thapa DO Work Phone: [facility] 230 Comment on above: Attention deficit hy peractivity disorder (ADHD), combined type ([facility]) Start: 01-15-2025 End: 01-15-2025 Refill Gm Gomez GAYE Work Phone: [facility] 230 Comment on above: Attention deficit hy peractivity disorder (ADHD), combined type ([facility]) Start: 01-11-2025 End: 01-11-2025 Emergency department patient visit Milton Garcia MD Work Phone: [facility] Comment on above: Vertigo (Primary Dx) Start: 01-07-2025 End: 01-07-2025 Refill Mary Ann Levin MD Work Phone: Dermatology Comment on above: Refill Request Start: 01-07-2025 End: 01-08-2025 Refill Mary Ann Levin MD Work Phone: Dermatology Comment on above: Refill Request Start: 12-13-2024 End: 12-13-2024 Emergency department patient visit ANIL THAPA [facility] Start: 11-30-2024 End: 12-01-2024 Emergency department patient visit Rohit Rob MD Work Phone: [facility] Comment on above: Threatened miscarria ge in early (Primary Dx) Start: 11-29-2024 End: 11-29-2024 Clinisync Result Encounter Generic External Data Provider [facility] External Department Unsolicited Start: 11-29-2024 End: 11-29-2024 Clinisync Result Encounter Generic External Data Provider [facility] External Department Unsolicited Start: 11-22-2024 End: 11-22-2024 Telephone encounter Anil Thapa DO Work Phone: [facility] 230 Comment on above: Med Refill Start: 11-16-2024 End: 11-16-2024 Emergency department patient visit Akiko Acosta MD Work Phone: [facility] Comment on above: Acute gastroenteriti s (Primary Dx) Start: 11-04-2024 End: 11-04-2024 Patient encounter procedure [facility] DO Work Phone: [facility] Comment on above: Lesion of tongue (Pr imary Dx) Start: 11-04-2024 End: 11-04-2024 ambulatory [facility] Start: 10-28-2024 End: 10-29-2024 Orders Only Jona Vann MD Work Phone: [facility] Comment on above: Acute vaginitis (Leslie sage Dx) Start: 10-23-2024 End: 10-23-2024 Office outpatient visit 15 minutes Jona Vann MD Work Phone: [facility] Comment on above: Acute vaginitis (Leslie sage Dx); Vaginal burning; Vaginal itching; Vaginal discharge; Vaginal odor; Amenorrhea Start: 10-23-2024 End: 10-23-2024 ambulatory JONA VANN Not Available Start: 10-21-2024 End: 10-21-2024 Bamboo flowsheet Anil Thapa DO Work Phone: [facility] 230 Start: 10-21-2024 End: 10-21-2024 Bamboo flowsheet Anil Thapa DO Work Phone: [facility] Start: 10-21-2024 End: 10-21-2024 ambulatory ANIL THAPA Not Available Start: 10-21-2024 End: 10-21-2024 Office outpatient visit 15 minutes Anil Thapa DO Work Phone: [facility] 230 Comment on above: Attention deficit hy peractivity disorder (ADHD), combined type (CMS/HCC) Start: 09-18-2024 End: 09-18-2024 Refill Gm Gomez LPN Work Phone: [facility] 230 Comment on above: Attention deficit hy peractivity disorder (ADHD), combined type (CMS/HCC) Start: 09-12-2024 End: 09-12-2024 Refill Mary Ann Levin MD Work Phone: Dermatology Comment on above: Refill Request Start: 09-11-2024 End: 09-11-2024 ambulatory OSBALDO-CATIE [facility] Start: 09-11-2024 End: 09-11-2024 Patient encounter procedure Osbaldo-Catie Vu DO Work Phone: [facility] Comment on above: Lesion of tongue (Pr imary Dx) Start: 09-10-2024 End: 09-10-2024 Office outpatient visit 15 minutes Mich Verde MD Work Phone: [facility] Comment on above: Postop check (Primar y Dx) Start: 09-10-2024 Encounter for examination of ears and hearing without abnormal findings MICH VERDE [facility] Start: 09-10-2024 End: 09-10-2024 Clinical Support Ppbp Ent Audio 2 [facility] Comment on above: Hearing exam without abnormal findings (Primary Dx) Start: 09-10-2024 End: 09-10-2024 Patient encounter status Ppbp 2 [facility] Work Phone: Start: 09-04-2024 End: 09-11-2024 Telephone encounter Lata Otoole RN [facility] Start: 09-03-2024 End: 09-03-2024 Orders Only Osbaldo-Catie Vu DO Work Phone: [facility] Comment on above: Tongue swelling (Leslie sgae Dx) Start: 08-29-2024 End: 08-29-2024 Telephone encounter Osbaldo-Catie Vu DO Work Phone: [facility] Start: 08-27-2024 End: 08-27-2024 Evaluation and management of inpatient CADEN Marin [facility] Start: 08-27-2024 End: 08-27-2024 Evaluation and management of inpatient [facility] Start: 08-20-2024 End: 08-20-2024 Evaluation and management of inpatient ANIL THAPA JR [facility] Start: 08-20-2024 End: 08-20-2024 [facility]mission to [facility] Phone Call Provider 3 [facility] Start: 08-17-2024 End: 08-17-2024 Orders Only Jona Vann MD Work Phone: [facility] Comment on above: Vaginitis due to Tri chomonas (Primary Dx) Start: 08-16-2024 End: 08-16-2024 Refill Harmony MCDANIEL Work Phone: [facility] 230 Comment on above: Attention deficit hy peractivity disorder (ADHD), combined type (CMS/HCC) Start: 08-13-2024 End: 08-13-2024 Patient encounter status Jona Vann MD Work Phone: [facility] Start: 08-13-2024 End: 08-13-2024 Periodic preventive med est patient 18-39 yrs Jona Vann MD Work Phone: [facility] Comment on above: Screening for malign ant neoplasm of cervix; Encounter for gynecological examination without abnormal finding; Anxiety, generalized (CMS/HCC); Vaginal discharge Start: 08-13-2024 End: 08-13-2024 ambulatory JONA VANN Not Available Start: 08-07-2024 End: 08-07-2024 Telephone encounter Osbaldo-Catie Vu DO Work Phone: [facility] Start: 08-07-2024 End: 08-07-2024 ambulatory OSBALDO-CATIE VU [facility] Start: 08-07-2024 End: 08-07-2024 Patient encounter procedure Osbaldo-Catie Vu DO Work Phone: [facility] Comment on above: Chronic throat pain (Primary Dx); Odynophagia; Tongue lesion; Post-nasal drip; Allergic rhinitis, unspecified seasonality, unspecified trigger Start: 07-25-2024 End: 07-25-2024 ambulatory ÁNGELA DELGADO Facility:[facility] Start: 07-25-2024 End: 07-25-2024 Patient encounter procedure Ángela Delgado DPM Work Phone: Podiatry Comment on above: Onychomycosis (Prima ry Dx); Tinea pedis, unspecified laterality Start: 07-17-2024 End: 07-17-2024 ambulatory HARMONY GERMAN Not Available Start: 07-17-2024 End: 07-17-2024 Office outpatient visit 15 minutes Harmony German PA Work Phone: [facility] 230 Comment on above: Attention deficit hy peractivity disorder (ADHD), combined type ([facility]) Start: 07-17-2024 End: 07-17-2024 Telephone encounter Doris Badillo [facility] Start: 07-15-2024 End: 07-15-2024 Postop follow up visit related to original px Mich Verde MD Work Phone: [facility] Comment on above: Postop check (Primar y Dx) Start: 07-15-2024 End: 07-15-2024 ambulatory MICH VERDE [facility] Start: 07-10-2024 End: 07-10-2024 ambulatory [facility] Start: 07-03-2024 End: 07-03-2024 Office outpatient visit 10 minutes Tiesha Rai PA-C Work Phone: [facility] Comment on above: Chronic throat pain (Primary Dx); Odynophagia; Adenoid hypertrophy Start: 07-03-2024 End: 07-03-2024 ambulatory [facility] Start: 07-01-2024 End: 07-01-2024 Clinisync Result Encounter Generic External Data Provider [facility] External Department Unsolicited Start: 07-01-2024 End: 07-01-2024 Clinisync Result Encounter Generic External Data Provider [facility] External Department Unsolicited Start: 06-27-2024 End: 06-28-2024 Emergency department patient visit DO Katie Thapa Work Phone: [facility] Work Phone: Start: 06-24-2024 End: 06-24-2024 Clinisync Result Encounter Generic External Data Provider [facility] External Department Unsolicited Start: 06-24-2024 End: 06-24-2024 Clinisync Result Encounter Generic External Data Provider [facility] External Department Unsolicited Start: 06-17-2024 End: 06-17-2024 Refill Gm Gomez AGYE Work Phone: [facility] 230 Comment on above: Attention deficit hy peractivity disorder (ADHD), combined type ([facility]) Start: 06-04-2024 End: 06-04-2024 Evaluation and management of inpatient [place] [facility] Start: 06-04-2024 End: 06-04-2024 Evaluation and management of inpatient [facility] Start: 05-21-2024 End: 05-21-2024 ambulatory [facility] Start: 05-21-2024 End: 05-21-2024 Patient encounter procedure [facility] Provider 4 [facility] Comment on above: Dysfunction of both eustachian tubes (Primary Dx) Start: 05-06-2024 End: 05-06-2024 ambulatory RYANN Billy ZHANG Not Available Start: 03-18-2024 End: 03-18-2024 Office outpatient visit 25 minutes Mich Verde MD Work Phone: [facility] Comment on above: Dysfunction of both eustachian tubes (Primary Dx); Hearing loss of right ear, unspecified hearing loss type; Otomycosis- right ear; Dysfunction of right eustachian tube; Acute right otitis media Start: 03-18-2024 End: 03-18-2024 ambulatory [facility] Start: 03-07-2024 End: 03-07-2024 Orders Only Tiesha Rai PA-C Work Phone: [facility] Start: 03-06-2024 End: 03-06-2024 ambulatory TIESHA RAI [facility] Start: 03-06-2024 End: 03-06-2024 Office outpatient visit 10 minutes Tiesha Rai PA-C Work Phone: [facility] Comment on above: Dysfunction of both eustachian tubes (Primary Dx); Otomycosis- right ear; Hearing loss of right ear, unspecified hearing loss type Start: 02-06-2024 End: 02-06-2024 ambulatory HARMONY GERMAN Not Available Start: 02-05-2024 End: 02-05-2024 Telephone encounter Jessica Best [facility] Start: 01-17-2024 End: 01-17-2024 ambulatory JONA VANN Not Available Start: 12-26-2023 End: 12-26-2023 ambulatory ÁNGELA DELGADO Facility:[facility] Start: 12-26-2023 End: 12-26-2023 Patient encounter procedure Ángela Delgado DPKatarzyna Work Phone: Podiatry Comment on above: Onychomycosis (Prima ry Dx); Ingrown toenail; Toe pain, bilateral; Tinea pedis, unspecified laterality Start: 12-25-2023 ambulatory Mary Ann Levin MD Work Phone: Dermatology Comment on above: Ance Start: 12-19-2023 End: 12-19-2023 Office outpatient visit 10 minutes Tiesha Rai PA-C Work Phone: [facility] Comment on above: Otomycosis- right ea r (Primary Dx); Dysfunction of both eustachian tubes; Hearing loss of right ear, unspecified hearing loss type Start: 12-07-2023 End: 12-07-2023 ambulatory ANIL THAPA Not Available Start: 11-21-2023 End: 11-21-2023 ambulatory SELF Facility:[facility] Start: 11-21-2023 End: 11-21-2023 Patient encounter procedure Ángela Delgado DPKatarzyna Work Phone: Podiatry Comment on above: Onychomycosis (Prima ry Dx); Ingrown toenail; Toe pain, bilateral; Medication monitoring encounter Start: 11-14-2023 End: 11-14-2023 ambulatory ANIL THAPA Not Available Start: 11-09-2023 End: 11-09-2023 ambulatory Pérez Barcenas Other [employer] Other Start: 11-09-2023 Encounter by arlene fair P[facility]rez [facility] Start: 11-09-2023 Telephone encounter Pérez Barcenas [facility] Start: 11-08-2023 Nutrition therapy Pérez Barcenas [facility] Start: 11-08-2023 Telephone encounter Pérez Barcenas [facility] Start: 11-08-2023 Registered Recurring DO Katie Thapa Work Phone: [facility] Work Phone: Start: 11-08-2023 End: 11-08-2023 ambulatory DO Katie Thapa Work Phone: [employer] [facility] [employer] Other Start: 11-08-2023 End: 11-08-2023 Patient encounter procedure DO Katie Thapa Work Phone: [facility] [place] Work Phone: Start: 09-23-2023 End: 09-23-2023 ambulatory Patricia Salas Other [employer] Other Start: 09-23-2023 Patient encounter procedure Patricia Salas [facility] Start: 09-23-2023 Patient encounter procedure DO Katie Thapa Work Phone: [facility] Start: 08-17-2023 End: 08-17-2023 Admission to same day surgery center DO Katie Thapa Work Phone: [facility] [place] Start: 08-17-2023 End: 08-17-2023 ambulatory DO Katie Thapa Work Phone: [facility] Work Phone: Start: 08-16-2023 Telephone encounter Mara barrios MD Work Phone: Internal Medicine Comment on above: Patient Question Start: 08-16-2023 End: 08-16-2023 ambulatory Mary Ann Levin MD Work Phone: Dermatology Comment on above: Acne vulgaris (Prima ry Dx) Start: 08-16-2023 End: 08-16-2023 Telemedicine consultation with patient Mary Ann Levin MD Work Phone: [facility] Start: 08-03-2023 End: 08-03-2023 Admission to same day surgery center DO Ktaie Thapa Work Phone: [facility] [place] Start: 08-03-2023 End: 08-03-2023 ambulatory DO Katie Thapa Work Phone: [facility] Work Phone: Start: 07-18-2023 Telephone encounter Mary Ann reynolds MD Work Phone: Dermatology Comment on above: Medication Question Start: 06-25-2023 ambulatory Mary Ann Levin MD Work Phone: Dermatology Comment on above: Ance Start: 06-09-2023 End: 06-09-2023 ambulatory Arti Barahona Other [employer] Other Start: 06-09-2023 Office outpatient vi sit 15 minutes Arti Barahona [facility] [place] Start: 06-08-2023 Telephone encounter Mara barrios MD Work Phone: Plastic Surgery Comment on above: Opened In Error Start: 06-06-2023 Telephone encounter Mara barrios MD Work Phone: Plastic Surgery Start: 06-01-2023 End: 06-01-2023 Patient encounter procedure Mara Alcaraz MD Work Phone: Plastic Surgery Comment on above: Mastodynia; Macromastia Start: 04-18-2023 ambulatory Dianna armendariz PA-C Work Phone: General Surgery Comment on above: Jyotiey Start: 04-04-2023 End: 04-04-[address] Work Phone: Nutrition Therapy Comment on above: Dietary counseling a nd surveillance (Primary Dx); Class 1 obesity with body mass index (BMI) of 30.0 to 30.9 in adult, unspecified obesity type, unspecified whether serious comorbidity present Start: 04-04-2023 End: 04-04-2023 Telemedicine consultation with patient Kerry Zuñigac RD Work Phone: [facility] Start: 01-03-2023 End: 01-04-[address] Diane THAPA Facility:[facility]1 Start: 12-30-2022 ambulatory [facility] Start: 12-29-2022 Telephone encounter Mary Ann reynolds MD Work Phone: Dermatology Comment on above: Patient Question Start: 12-16-2022 End: 12-17-2022 ambulatory Katie THAPA [facility] Start: 12-15-2022 End: 12-16-[address] DOCTOR MAURICIO Facility:[facility] Start: 12-14-2022 ambulatory [facility] Start: 12-13-2022 ambulatory Wesly KEEN Facility: [place] Start: 12-12-2022 ambulatory Wesly KEEN Facility: [place] Start: 11-18-2022 ambulatory Ludy ROBLES NETWORK ADMINISTRATOR Comment on above: Pt would like a neur ology 2nd opinion appt. 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] Start: 11-14-2022 End: 11-14-2022 Patient encounter procedure Sreekanth Sood MD Work Phone: Neurology Comment on above: Cerebellar tonsillar ectopia (HCC) (Primary Dx); Exertional headache; Cervicalgia; Macromastia Start: 11-02-2022 ambulatory Aminata husain RN [facility] Start: 11-02-2022 Patient encounter procedure Aminata Montgomery RN NURSE NETWORK ADMINISTRATOR Comment on above: Referral Information Start: 10-21-2022 End: 10-22-[address] Diane THAPA Facility: Start: 10-13-2022 End: 10-14-2022 ambulatory DIANNA VILLA Facility:[facility] Start: 10-11-2022 End: 10-12-[address] MICHAEL Alvares Facility: Start: 09-12-2022 End: 09-12-2022 Patient encounter [...] patient Mary Ann Levin MD Work Phone: [facility] Start: 08-09-2022 ambulatory Mary Ann Levin MD Work Phone: Dermatology Comment on above: Ance medicine Start: 08-05-2022 Telephone encounter No Pcp [place] Comment on above: Medication Problem Start: 08-04-2022 [...] 06-24-2022 End: 06-24-2022 ambulatory Zully Mendoza Other [facility] Other Start: 06-24-2022 Office outpatient vi sit 15 minutes Zully Mendoza [facility] [place] Start: 05-15-2022 Refill Mary Ann Levin MD Work Phone: Dermatology Comment on above: Refill Request Start: 05-12-2022 End: 05-12-2022 Patient encounter procedure Mary Ann Levin MD Work Phone: Dermatology Comment on above: APPOINTMENT CANCELLE D (Primary Dx) Start: 04-04-2022 End: 04-04-2022 ambulatory Sreekanth Sood MD Work Phone: Neurology Comment on above: Cerebellar tonsillar ectopia (HCC) (Primary Dx); Exertional headache; 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 Start: 04-04-2022 End: 04-04-2022 Telemedicine consultation with patient Sreekanth Sood MD Work Phone: [facility] Start: 03-16-2022 Refill Mary Ann Levin MD Work Phone: [address] [place] [address] Comment on above: Refill Request Start: 03-16-2022 Refill Mary Ann Levin MD Work Phone: Dermatology Comment on above: Refill Request Start: 12-30-2021 ambulatory Mary Ann Levin MD Work Phone: Dermatology Comment on above: Ance Start: 12-30-2021 End: 12-30-2021 Patient encounter procedure Sreekanth Sood MD Work Phone: Neurology Comment on above: Cerebellar tonsillar ectopia (HCC) (Primary Dx); Exertional headache; 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 Start: 12-29-2021 ambulatory Francheska Marinelli RT(R) Ra diology Comment on above: Radiology MRI Start: 12-29-2021 Patient encounter procedure Francheska Marinelli RT(R) VU MCDANIEL Start: 12-29-2021 End: 12-29-2021 Subsequent hospital visit by physician Mri [facility] Mercedes (1.5t) Work Phone: Radiology Comment on above: Thunderclap headache [G44.53] Start: 05-22-2019 End: 05-22-2019 Departed Referred [facility] Start: 06-13-2017 End: 06-13-2017 Emergency department patient visit SREEKANTH JOHNSON Facility:[facility] Procedures Date Procedure Procedure Detail Performing Clinician Start: 02-22-2025 Gonadotropin chorion ic quantitative Jona Vann MD Work Phone: Start: 02-18-2025 Diagnostic ultrasoun d of gravid uterus Katie Wesly Alanis DO Work Phone: Start: 02-18-2025 Determination of guzman wth of fungi Katie Wesly Alanis DO Work Phone: Start: 02-18-2025 Trichomonas vaginali s detection GDia Wesly Alanis DO Work Phone: Start: 02-18-2025 Transvaginal obstetr ic ultrasonography Katie Ewsly Alanis HERMOSILLO Work Phone: Start: 01-11-2025 End: 01-11-2025 Comprehensive metabolic panel Milton Garcia MD Work Phone: Start: 12-01-2024 Urnls dip stick/tabl et rgnt auto w/o microscopy Rohit Rob MD Work Phone: Start: 12-01-2024 End: 12-01-2024 Comprehensive metabolic panel Rohit Rob MD Work Phone: Start: 11-29-2024 [facility] Isa Martel MD Work Phone: Start: 11-16-2024 Urnls dip stick/tabl et rgnt [...] meths Jona Vann MD Work Phone: Start: 09-10-2024 Follow-up visit Follow-up MICH KELINEFTALI Start: 07-01-2024 [facility] Isa Martel MD Work Phone: Start: 06-28-2024 Trichomonas vaginali s detection DO Katie Thapa Work Phone: Start: 06-24-2024 [facility] Gene fred External Data Provider Start: 08-17-2023 Dilation and curetta ge of uterus DO Katie Thapa Work Phone: Start: 08-03-2023 Hysteroscopy DO Katie Thapa Work Phone: Start: 06-19-2023 Adult depression scr eening assessment Tiesha Rai PA-C Work Phone: Start: 11-16-2022 Mri brain brain stem w/o w/contrast material Sreekanth Sood MD Work Phone: Start: 04-04-2022 Adult depression scr eening assessment Sreekanth Sood MD Work Phone: Start: 12-29-2021 Mri brain brain stem w/o w/contrast material Sreekanth Sood MD Work Phone: Start: 12-22-2021 Adult depression scr eening assessment Francheska Marinelli RT(R) Start: 05-22-2019 Aerobic Culture Margarita O tt Start: 05-22-2019 Anaerobic Culture Margarita Apple Start: 05-22-2019 Microscopic observat ion Gram stain Nom (Unsp spec) Margarita Chiu Plan of Treatment Date Care Activity Detail Author Start: 02-27-2026 Tobacco Screening Tobacco Screening [facility] Start: 02-26-2026 Adult BMI Screening Adult BMI Screen ing [facility] Start: 11-04-2025 Adult BMI Screening Adult BMI Screen ing [facility] Start: 09-11-2025 Adult BMI Screening Adult BMI Screen ing [facility] Start: 09-11-2025 Tobacco Screening Tobacco Screening [facility] Start: 08-27-2025 Adult BMI Screening Adult BMI Screen ing [facility] Start: 08-27-2025 Tobacco Screening Tobacco Screening [facility] Start: 08-20-2025 Adult BMI Screening Adult BMI Screen ing [facility] Start: 08-20-2025 Tobacco Screening Tobacco Screening [facility] Start: 08-14-2025 End: 08-14-2025 Patient encounter procedure 08/14/2025 3:00 PM EST Office Visit [facility] [address] [place] [address] Jona Vann MD [address] [place] [address] [facility] Start: 07-15-2025 Adult BMI Screening Adult BMI Screen ing [facility] Start: 07-15-2025 Tobacco Screening Tobacco Screening [facility] Start: 07-03-2025 Adult BMI Screening Adult BMI Screen ing [facility] Start: 07-03-2025 Tobacco Screening Tobacco Screening [facility] Start: 06-25-2025 DTaP,Tdap and Td Vaccines (7 - Td or Tdap) DTaP,Tdap and Td Vaccines (7 - Td or Tdap) [facility] Start: 06-25-2025 DTaP/Tdap/Td vaccine (7 - Td or Tdap) DTaP/Tdap/Td vaccine (7 - Td or Tdap) [facility] Start: 06-25-2025 Urine microalbumin profile DTaP,Tdap,Td Vaccine (7 - Td or Tdap) [facility] Start: 06-09-2025 Influenza vaccination Influenza Vacc ine [facility] Start: 05-21-2025 Adult BMI Screening Adult BMI Screen ing [facility] Start: 05-21-2025 Tobacco Screening Tobacco Screening [facility] Start: 05-01-2025 End: 05-01-2025 Patient encounter procedure 05/01/2025 4:15 PM EDT Office Visit Dermatology [address] [place], [place] [id number] Mary Ann Levin MD [facility] [address] [facility] [address] [place], [place] [id number] requesting refills Dermatology Comment on above: requesting refills Start: 03-18-2025 Adult BMI Screening Adult BMI Screen ing [facility] Start: 03-18-2025 Tobacco Screening Tobacco Screening [facility] Start: 03-06-2025 Adult BMI Screening Adult BMI Screen ing [facility] Start: 03-06-2025 Tobacco Screening Tobacco Screening [facility] Start: 02-19-2025 End: 02-19-2025 Patient encounter procedure 02/19/2025 12:45 PM EDT Office Visit Dermatology [address] [place], [place] [id number] Mary Ann Levin MD [address] [place], [place] [id number] 2 months follow up for acne Dermatology Comment on above: 2 months follow up f or acne Start: 02-18-2025 [facility] Start: 12-18-2024 Adult BMI Screening Adult BMI Screen ing [facility] Start: 12-18-2024 Tobacco Screening Tobacco Screening [facility] Start: 12-03-2024 End: 12-03-2024 Patient encounter procedure 12/03/2024 8:40 AM EST Office Visit [facility] [address] [place] [phone] Anil Thapa, DO [address] [place] [address] [facility] [address] Start: 11-04-2024 End: 11-04-2024 Patient encounter procedure 11/04/2024 1:45 PM EST Office Visit [facility] [address] [place] [phone] [facility] [address] [place] [address] [facility] Start: 10-15-2024 End: 10-15-2024 Patient encounter procedure 10/15/2024 10:00 AM EST Office Visit [facility] [address] [place] [phone] Anil Thapa, DO [address] [place] [address] [facility] [address] Start: 10-10-2024 End: 10-10-2024 Patient encounter procedure 10/10/2024 1:45 PM EST Office Visit Dermatology [address] [place], [place] [phone] Mary Ann Levin MD [address] [place], [place] [phone] [facility] Comment on above: [facility] Start: 09-11-2024 End: 09-11-2024 Patient encounter procedure 09/11/2024 10:30 AM EST Office Visit [facility] [address] [place] [phone] Osbaldo Jennings-Catie, DO [address] [place] [address] [facility] Start: 09-10-2024 End: 09-10-2024 Clinical Support [facility] Start: 09-09-2024 End: 09-09-2024 Patient encounter procedure 09/09/2024 9:45 AM EST Office Visit [facility] [address] [place] [address] Dick, Osbaldo-Catie, DO [address] [place] [address] [facility] Start: 08-27-2024 End: 08-27-2024 Admission to same day surgery center 08/27/2024 12:45 PM EST - 08/27/2024 1:45 PM EST Surgery [facility] Surgery [address] [place] [address] Ilda Jenningsynh-Catie, DO [address] [facility] [address] [place] [address] DIRECT LARYNGOSCOPY WITH BIOPSY BASE OF TONGUE LESION [64417 (CPT )] [facility] Surgery Comment on above: DIRECT LARYNGOSCOPY WITH BIOPSY BASE OF TONGUE LESION [90038 (CPT )] Start: 08-27-2024 End: 08-27-2024 Laryngoscopy direct operative w/biopsy DIRECT LARYNGOSCOPY Lesion of tongue 08/27/2024 12:45 PM EST [facility] Start: 08-27-2024 Subsequent hospital visit by physician 08/27/2024 12:45 PM EST Hospital Encounter [facility] Surgery [address] [place] [address] Vu, Osbaldo-Catie, DO [address] [place] [address] [facility] - Surgery Start: 08-27-2024 End: 08-27-2024 Laryngoscopy direct operative w/biopsy DIRECT LARYNGOSCOPY Lesion of tongue 08/27/2024 10:13 AM EST [facility] Start: 08-13-2024 End: 08-13-2024 Patient encounter procedure 08/13/2024 1:45 PM EST Office Visit [facility] [address] [place] [phone] Jona Vann MD [address] [place] [address] [facility] Start: 08-08-2024 End: 08-08-2024 Patient encounter procedure 08/08/2024 10:00 AM EDT Office Visit [facility] [address] [place] [phone] Renita Ellis, SLEEP MEDICINE PHYSICIAN-COAL HANDLER [address] [place] [address] [facility] Start: 08-07-2024 End: 08-07-2024 Patient encounter procedure 08/07/2024 10:00 AM EDT Office Visit [facility] [address] [facility] [address] [place] [address] Osbaldo Jennings-[facility], [address] [facility] [address] [place] [address] [facility] Start: 07-24-2024 End: 07-24-2024 Patient encounter procedure 07/24/2024 10:00 AM EDT Office Visit [facility] [address] [place] [address] Renita Ellis, SLEEP MEDICINE PHYSICIAN-COAL HANDLER [address] [place] [address] [facility] Start: 07-15-2024 End: 07-15-2024 Patient encounter procedure 07/15/2024 3:30 PM EDT Office Visit [facility] [address] [facility] [place] [phone] Mich Verde MD [address] [place] [address] [address] [place] [address] [facility] Start: 07-03-2024 End: 07-03-2025 CT Neck W contrast IV CT neck soft tissue with contrast Imaging Routine Chronic throat pain Odynophagia Expected: 07/03/2024, Expires: 07/03/2025 [facility] Work Phone: Comment on above: Expected: 07/03/2024 , Expires: 07/03/2025 Start: 06-28-2024 Computed tomography of abdomen and pelvis with contrast CT abdomen pelvis w con [facility] Start: 06-28-2024 CT Abdomen and Pelvi s W contrast IV [facility] Start: 06-28-2024 [facility] Start: 06-27-2024 Bacteria identified in Urine by Culture [facility] Start: 06-19-2024 Depression Screening Depression Scre ening [facility] Start: 06-09-2024 COVID-19 Vaccine ( season) COVID-19 Vaccine ( season) [facility] Start: 06-09-2024 Covid-19 Vaccine ( season) Covid-19 Vaccine ( season) [facility] Start: 06-09-2024 Influenza vaccination C [facility] Start: 06-04-2024 End: 06-04-2024 Admission to same day surgery center 06/04/2024 9:00 AM EDT - 06/04/2024 9:30 AM EDT Surgery [facility] - Surgery [address] [place] [phone] [place] [address] [place] [address] [address] [place] [address] REMOVAL TUBE EAR [76077 (CPT )] [facility] Comment on above: REMOVAL TUBE EAR [69 424 (CPT )] Start: 06-04-2024 Subsequent hospital visit by physician 06/04/2024 9:00 AM EDT Hospital Encounter [facility] [address] [place] [address] [place] [address] [place] [address] [address] [place] [address] [facility] Start: 06-04-2024 End: 06-04-2024 Tympanic memb rpr w/wo prepj perfor patch APPLICATION GRAFT PAPER PATCH EAR Dysfunction of both eustachian tubes Hearing loss of right ear, unspecified hearing loss type Otomycosis Acute right otitis media Cerumen debris on tympanic membrane of both ears Chronic mucoid otitis media of both ears 06/04/2024 9:00 AM EDT [facility] Start: 06-04-2024 End: 06-04-2024 Ventilating tube rmvl requiring general anes REMOVAL TUBE EAR Dysfunction of both eustachian tubes Hearing loss of right ear, unspecified hearing loss type Otomycosis Acute right otitis media Cerumen debris on tympanic membrane of both ears Chronic mucoid otitis media of both ears 06/04/2024 9:00 AM EDT [facility] Start: 04-08-2024 End: 04-08-2024 Patient encounter procedure 04/08/2024 4:15 PM EDT Office Visit [facility] [address] [place] [phone] Tiesha Rai, PA-C [address] [facility] [facility] [address] [place] [address] [facility] Start: 03-18-2024 End: 03-18-2024 Patient encounter procedure 03/18/2024 2:30 PM EDT Office Visit [facility] [address] [facility] [address] [place] [phone] Mich Verde MD [address] [place] [address] [facility] Start: 02-13-2024 End: 02-13-2024 Patient encounter procedure 02/13/2024 2:00 PM EDT Office Visit [facility] [address] [place] [phone] Mich Verde MD [address] [place] [address] [address] [place] [address] [facility] Start: 02-06-2024 End: 02-06-2024 Patient encounter procedure 02/06/2024 1:15 PM EDT Office Visit [facility] [address] [facility] [address] [place] [phone] Tiesha Rai, PA-C [address] [place] [address] [facility] Start: 11-21-2023 End: 02-20-2024 Hepatic function 2000 panel - Serum or Plasma HEPATIC FUNCTION PNL Lab Routine Medication monitoring encounter Expected: 11/21/2023, Expires: 02/20/2024 [facility] Work Phone: Comment on above: Expected: 11/21/2023 , Expires: 02/20/2024 Start: 2023 Screening for malign ant neoplasm of cervix [facility] Start: 10-09-2023 Depression Assessment Depression Ass essment [facility] Start: 08-17-2023 [facility] Start: 08-03-2023 End: 08-03-2023 [facility] Start: 06-09-2023 Covid-19 Vaccine ( season) Covid-19 Vaccine ( season) [facility] Start: 06-09-2023 Influenza vaccination C [facility] Start: 04-04-2023 Adult depression screening assessment DEPRESSION SCREENING [facility] Start: 12-22-2022 Adult depression screening assessment DEPRESSION SCREENING [facility] Start: 10-09-2022 DEPRESSION ASSESSMENT DEPRESSION ASS ESSMENT [facility] Start: 06-09-2022 Influenza vaccination INFLUENZA (#1) [facility] Start: 10-09-2021 DEPRESSION ASSESSMENT DEPRESSION ASS ESSMENT [facility] Start: 2020 Adult BMI Follow Up Plan Adult BMI Follow Up Plan [facility] Start: 2020 CHLAMYDIA SCREENING (18-24) CHLAMYDIA SCREENING (18-24) [facility] Start: 2020 Depression Screening Depression Scre ening [facility] Start: 2020 GC (GONORRHEA) SCREENING (18-24) GC (GONORRHEA) SCREENING (18-24) [facility] Start: 2020 HEPATITIS C SCREENING HEPATITIS C SC REENING [facility] Start: 2020 Hepatitis C screening C [facility] Start: 2020 HIV SCREENING HIV SCREENING [facility] Start: 2020 HIV screening HIV Screening [facility] Start: 2020 Screening for Chlamy magaly trachomatis Chlamydia Screening (18-24) [facility] Start: 2018 Meningococcal B Vacc ine (1 of 2 - Standard) Meningococcal B Vaccine (1 of 2 - Standard) [facility] Start: 2018 Meningococcal B Vaccine: Consider Based On Risk (1 of 2 - Patient Seeks Protection) Meningococcal B Vaccine: Consider Based On Risk (1 of 2 - Patient Seeks Protection) [facility] Start: 2018 MENINGOCOCCAL B: Consider based on risk (1 of 2 - Patient Seeks Protection) MENINGOCOCCAL B: Consider based on risk (1 of 2 - Patient Seeks Protection) [facility] Start: 2018 Screening for Chlamy magaly trachomatis Chlamydia/GC screen [facility] Start: 2017 HIV screening HIV screen [facility] Start: 06-17-2017 HPV VACCINE (2 - 2-d ose series) HPV VACCINE (2 - 2-dose series) [facility] Start: 2016 PEDS TO ADULT TRANSITION ANNUAL ASSESSMENT PEDS TO ADULT TRANSITION ANNUAL ASSESSMENT [facility] Start: 2014 Depression Screen Depression Screen [facility] Start: 2014 PEDS TO ADULT TRANSITION INITIAL DISCUSSION PEDS TO ADULT TRANSITION INITIAL DISCUSSION [facility] Start: 2013 Urine microalbumin profile [facility] Start: 2012 MENINGOCOCCAL B: Consider based on risk (1 of 2 - Risk Bexsero 2-dose series) MENINGOCOCCAL B: Consider based on risk (1 of 2 - Risk Bexsero 2-dose series) [facility] Start: 02-27-2008 Varicella vaccine (2 of 2 - 2-dose childhood series) Varicella vaccine (2 of 2 - 2-dose childhood series) [facility] Start: 2007 COVID-19 VACCINE (#1) COVID-19 VACCI NE (#1) [facility] Start: 2007 COVID-19 VACCINE (1) COVID-19 VACCIN E (1) [facility] Start: 04-17-2003 COVID-19 VACCINE (#1) COVID-19 VACCI NE (#1) [facility] Bacteria identified in Urine by Culture Urine culture Microbiology Routine Vaginal burning Ordered: 10/23/2024 [facility] Comment on above: Ordered: 10/23/2024 End: 07-15-2025 Comprehensive hearing test Comprehensive hearing test Audiology Routine Postop check 1 Occurrences starting 07/15/2024 until 07/15/2025 [facility] Work Phone: Comment on above: 1 Occurrences starti ng 07/15/2024 until 07/15/2025 EKG 12 Lead (Chest Pain) EKG 12 Lead (Chest Pain) ECG STAT 11/16/2024 1:16 AM EST [facility] GENITAL MYCOPLASMAS JANET, SWAB GENITAL MYCOPLASMAS JANET, SWAB Pathology and Cytology Routine Vaginal burning Vaginal itching Vaginal discharge Vaginal odor Ordered: 10/23/2024 [facility] Work Phone: Comment on above: Ordered: 10/23/2024 Lipoprotein a [Moles/volume] in Serum or Plasma [facility] Lopez miscellaneous test Lopez mis cellaneous test Lab Routine Screening for malignant neoplasm of cervix Vaginal discharge Ordered: 08/13/2024 [facility] Comment on above: Ordered: 08/13/2024 NuSwab Vaginitis Plu s (VG+) NuSwab Vaginitis Plus (VG+) Microbiology Routine Screening for malignant neoplasm of cervix Vaginal discharge Ordered: 08/13/2024 [facility] Comment on above: Ordered: 08/13/2024 NuSwab Vaginitis Plu s (VG+) NuSwab Vaginitis Plus (VG+) Microbiology Routine Vaginal burning Vaginal itching Vaginal discharge Vaginal odor Ordered: 10/23/2024 [facility] Comment on above: Ordered: 10/23/2024 Patient Education [facility] Work Phone: Patient referral [facility] Work Phone: SENDOUT TEST MISCELLANEOUS [facility] SENDOUT TEST MISCELLANEOUS [facility] Lab Routine Screening for malignant neoplasm of cervix Encounter for gynecological examination without abnormal finding Ordered: 08/13/2024 [facility] Work Phone: Comment on above: Ordered: 08/13/2024 [facility] Immunizations Immunization Date Immunization Notes Care Provider Fa cility 06-13-2024 influenza, injectabl e, madin maria del carmen canine kidney, preservative free Anil Thapa DO Work Phone: [facility] 06-13-2024 influenza virus vaccine, unspecified formulation Tala MEJIA Work Phone: [facility] 06-23-2023 Influenza, injectabl e, Madin Maria Del Carmen Canine Kidney, preservative free, quadrivalent Gm Jason GEOMAGNETIST Work Phone: [facility] 06-23-2023 influenza virus vaccine, unspecified formulation [facility] 03-09-2023 SARS-COV-2 (COVID-19 ) vaccine, mRNA, spike protein, LNP, bivalent, preservative free, 30 mcg/0.3 mL dose, merly-sucrose formulation Gm Jason GEOMAGNETIST Work Phone: [facility] 08-03-2022 Influenza, injectabl e, Madin Maria Del Carmen Canine Kidney, preservative free, quadrivalent Gm Jason GEOMAGNETIST Work Phone: [facility] 08-03-2022 influenza virus vaccine, unspecified formulation Mary Ann Levin MD Work Phone: [facility] 06-04-2021 influenza, injectabl e, quadrivalent, preservative free Gm Jason GEOMAGNETIST Work Phone: [facility] 07-02-2020 Influenza, injectabl e, Madin Waverly Canine Kidney, quadrivalent with preservative Gm Jason GEOMAGNETIST Work Phone: [facility] 07-10-2019 Influenza, injectabl e, Madin Waverly Canine Kidney, preservative free, quadrivalent Gm Jason GEOMAGNETIST Work Phone: [facility] 07-06-2018 influenza, injectabl e, quadrivalent, preservative free Gm Jason GEOMAGNETIST Work Phone: [facility] 07-13-2017 hepatitis A vaccine, pediatric/adolescent dosage, 2 dose schedule [facility] 07-13-2017 Human Papillomavirus 9-valent vaccine [facility] 07-13-2017 influenza, injectabl e, quadrivalent, preservative free [facility] 12-15-2016 hepatitis A vaccine, adult dosage [facility] 12-15-2016 hepatitis A vaccine, pediatric/adolescent dosage, 2 dose schedule Francheska MONTOYA(R) [facility] Work Phone: 12-15-2016 human papilloma viru s vaccine, quadrivalent Tiesha Rai PA-C Work Phone: [facility] 12-15-2016 Human Papillomavirus 9-valent vaccine Francheska Lanzai RT(R) [facility] Work Phone: 07-31-2015 meningococcal oligosaccharide (groups A, C, Y and W-135) diphtheria toxoid conjugate vaccine (MCV4O) [facility] 07-31-2015 meningococcal polysaccharide (groups A, C, Y and W-135) diphtheria toxoid conjugate vaccine (MCV4P) Francheska Marinelli RT(R) [facility] 07-08-2015 influenza virus vaccine, unspecified formulation Tiesha Rai PA-C Work Phone: [facility] 07-08-2015 influenza, injectabl e, quadrivalent, preservative free Francheska Lapponi RT(R) [facility] 07-08-2015 influenza, seasonal, injectable Gm Jason GEOMAGNETIST Work Phone: [facility] 06-25-2015 tetanus toxoid, redu lita diphtheria toxoid, and acellular pertussis vaccine, adsorbed [facility] 07-30-2013 influenza virus vaccine, unspecified formulation Francheska Lapponi RT(R) [facility] 07-30-2013 influenza, injectabl e, quadrivalent, preservative free Gm Jason GEOMAGNETIST Work Phone: [facility] 07-28-2011 influenza virus vaccine, unspecified formulation Francheska Lapponi RT(R) [facility] 07-28-2011 influenza, seasonal, injectable Gm Jason GEOMAGNETIST Work Phone: [facility] 08-24-2010 influenza virus vaccine, unspecified formulation Francheska Lapponi RT(R) [facility] 08-24-2010 influenza, seasonal, injectable, preservative free Gm Jason GEOMAGNETIST Work Phone: [facility] 07-22-2009 influenza virus vaccine, live, attenuated, for intranasal use Gm Jason GEOMAGNETIST Work Phone: [facility] 07-22-2009 influenza virus vaccine, unspecified formulation Francheska Lapponi RT(R) [facility] 01-30-2008 diphtheria, tetanus toxoids and acellular pertussis vaccine Francheska Lapponi RT(R) [facility] 01-30-2008 measles, mumps and rubella virus vaccine Francheska Lapponi RT(R) [facility] 01-30-2008 poliovirus vaccine, inactivated Francheska Lapponi RT(R) [facility] 11-08-2004 diphtheria, tetanus toxoids and acellular pertussis vaccine Francheska Lapponi RT(R) [facility] 11-08-2004 varicella virus vaccine Francheskajarred Barkerpo ni RT(R) [facility] 08-31-2004 influenza virus vaccine, unspecified formulation Tiesha Rai PA-C Work Phone: [facility] 08-31-2004 influenza, seasonal, injectable Gm Gomez LPN Work Phone: [facility] 08-31-2004 influenza, seasonal, injectable, preservative free Francheska Lapponi RT(R) [facility] 04-21-2004 haemophilus influenz ae type b vaccine, conjugate unspecified formulation [facility] 04-21-2004 haemophilus influenz ae type b vaccine, HbOC conjugate Francheska Lapponi RT(R) [facility] 04-21-2004 measles, mumps and rubella virus vaccine Francheska Lapponi RT(R) [facility] 04-21-2004 pneumococcal conjuga te vaccine, 7 valent [facility] 04-21-2004 pneumococcal Conjuga te, unspecified formulation Francheskajarred Barkerponi RT(R) [facility] 10-15-2003 influenza virus vaccine, unspecified formulation Tiesha Rai PA-C Work Phone: [facility] 10-15-2003 influenza, seasonal, injectable Francheska Lapponi RT(R) [facility] 09-12-2003 influenza virus vaccine, unspecified formulation Tiesha Rai PA-C Work Phone: [facility] 09-12-2003 influenza, seasonal, injectable Francheska Lapponi RT(R) [facility] 09-09-2003 pneumococcal conjuga te vaccine, 7 valent Jessica Nasir [facility] 09-09-2003 pneumococcal Conjuga te, unspecified formulation Francheska Lapponi RT(R) [facility] 09-09-2003 poliovirus vaccine, inactivated Francheska Lapponi RT(R) [facility] 04-21-2003 diphtheria, tetanus toxoids and acellular pertussis vaccine Francheska Lapponi RT(R) [facility] 04-21-2003 haemophilus influenz ae type b vaccine, conjugate unspecified formulation [facility] 04-21-2003 haemophilus influenz ae type b vaccine, HbOC conjugate Francheska Lapponi RT(R) [facility] 04-21-2003 hepatitis B vaccine, pediatric or pediatric/adolescent dosage Francheska Lapponi RT(R) [facility] 04-21-2003 pneumococcal conjuga te vaccine, 7 valent [facility] 04-21-2003 pneumococcal Conjuga te, unspecified formulation Francheska Lapponi RT(R) [facility] 02-17-2003 diphtheria, tetanus toxoids and acellular pertussis vaccine Francheska Lapponi RT(R) [facility] 02-17-2003 haemophilus influenz ae type b vaccine, conjugate unspecified formulation [facility] 02-17-2003 haemophilus influenz ae type b vaccine, HbOC conjugate Francheska Lapponi RT(R) [facility] 02-17-2003 poliovirus vaccine, inactivated Francheska Lapponi RT(R) [facility] 2002 diphtheria, tetanus toxoids and acellular pertussis vaccine Francheska Lapponi RT(R) [facility] 2002 haemophilus influenz ae type b vaccine, conjugate unspecified formulation [facility] 2002 haemophilus influenz ae type b vaccine, HbOC conjugate Francheska Lapponi RT(R) [facility] 2002 hepatitis B vaccine, pediatric or pediatric/adolescent dosage Francheska Lapponi RT(R) [facility] 2002 pneumococcal conjuga te vaccine, 7 valent [facility] 2002 pneumococcal Conjuga te, unspecified formulation Francheska Lapponi RT(R) [facility] 2002 poliovirus vaccine, inactivated Francheska Lapponi RT(R) [facility] 2002 hepatitis B vaccine, pediatric or pediatric/adolescent dosage Francheska Marinelli RT(R) [facility] Payers Date Payer Category Payer Self-pay 2022 Medicaid [id number] 2021 Medicaid [employer] [id number] 2021-Present [phone] [address] [place] [address] Medicaid [id number] 2021 Medicaid [id number] 2002 Unknown [id number] 2.16.840.1.500072.3.579.2.983 2002 Unknown [id number] 2.16.840.1.811189.3.579.2.983 2002 Unknown [id number] 2.16.840.1.370553.3.579.2.983 2002 Unknown [id number] 2.16.840.1.555622.3.579.2.593 2002 Unknown [id number] 2.16.840.1.195998.3.579.2.593 2002 Unknown [id number] 2.16.840.1.335194.3.579.2.593 2002 Unknown [id number] 2.16.840.1.454927.3.579.2.593 2002 Unknown [id number] 2.16.840.1.810251.3.579.2.593 2002 Unknown [id number] 2.16.840.1.585426.3.579.2.1259 2002 Unknown [id number] 2.16.840.1.035053.3.579.2.1259 2002 Unknown [id number] 2.16.840.1.920682.3.579.2.1258 2002 Unknown [id number] 2.16.840.1.477777.3.579.2.1258 2002 Unknown [id number] 2.16.840.1.839553.3.579.2.1258 2002 Unknown [id number] 2.16.840.1.856067.3.579.2.1258 2002 Unknown [id number] 2.16.840.1.666927.3.579.2.1258 2002 Unknown [id number] 2.16.840.1.870684.3.579.2.1258 2002 Unknown [id number] 2.16.840.1.933838.3.579.2.1258 2002 Unknown [id number] 2.16.840.1.921978.3.579.2.1285 2002 Unknown [id number] 2.16.840.1.898307.3.579.2.1285 2002 Unknown [id number] 2.16.840.1.448392.3.579.2.1285 2002 Unknown [id number] 2.16.840.1.103574.3.579.2.1285 2002 Unknown [id number] 2.16.840.1.779154.3.579.2.1285 2002 Unknown [id number] 2.16.840.1.440028.3.579.2.1285 2002 Unknown [id number] 2.16.840.1.852663.3.579.2.1285 2002 Unknown [id number] 2.16.840.1.297821.3.579.2.1285 2002 Unknown [id number] 2.16.840.1.777303.3.579.2.1285 2002 Unknown [id number] 2.16.840.1.911780.3.579.2.1285 2002 Unknown [id number] 2.16.840.1.054385.3.579.2.1285 2002 Unknown [id number] 2.16.840.1.851869.3.579.2.174 2002 Unknown [id number] 2.16.840.1.884236.3.579.2.174 2002 Unknown [id number] 2.16.840.1.558304.3.579.2.174 2002 Unknown [id number] 2.16.840.1.841847.3.579.2.174 2002 Unknown [id number] 2.16.840.1.479128.3.579.2.[facility] Unknown [id number] 2.16.840.1.949411.3.579.2.1285 2002 Unknown [id number] 2.16.840.1.456103.3.579.2.1285 2002 Unknown [id number] 2.16.840.1.209890.3.579.2.1285 2002 Unknown [id number] 2.16.840.1.504802.3.579.2.1285 2002 Unknown [id number] 2.16.840.1.582864.3.579.2.1285 2002 Unknown [id number] 2.16.840.1.104031.3.579.2.1285 2002 Unknown [id number] 2.16.840.1.224231.3.579.2.1285 2002 Unknown [id number] 2.16.840.1.388191.3.579.2.1285 2002 Unknown [id number] 2.16.840.1.615449.3.579.2.[facility]6 1957 Medicaid [id number] Unknown [id number] Unknown [id number] 2.16.840.1.600028.3.579.2.531 Unknown [id number] 2.16.840.1.904579.3.579.2.531 Social History Date Type Detail Facility Start: 12-30-2021 End: 07-28-2022 Tobacco smoking status NHIS Never smoked tobacco [facility] Start: 12-22-2021 End: 11-21-2023 Alcohol intake Current non-drinker of alcohol (finding) [facility] Start: 2002 Sex Assigned At Not on file [facility] Start: 12-19-2021 End: 09-12-2022 Exposure to SARS-CoV-2 (event) Not sure [facility] Start: 12-30-2021 End: 07-28-2022 Tobacco use and exposure Smokeless tobacco non-user [facility] Start: 11-19-2020 End: 10-13-2022 Sex Assigned At [facility] Start: 08-04-2022 Tobacco Comment no one in hous ehold smokes [facility] Start: 11-19-2020 End: 10-13-2022 History of Social function [facility] Adult Depression Screening Assessment 3 [facility] Start: 2002 Sex Assigned At Female F [facility] Start: 07-17-2024 End: 10-23-2024 Alcoholic beverage intake Ex-drinker (finding) [facility] How often to you hav e a drink containing alcohol? Never [facility] Start: 07-10-2023 Alcohol Comment caffeine: none [facility] Start: 12-13-2021 Gender identity Identifies as female gender (finding) [facility] Start: 09-11-2024 End: 02-27-2025 Alcoholic beverage intake Current drinker of alcohol (finding) [facility] Start: 08-20-2024 Alcohol Comment q 1x per month [facility] Start: 03-03-2017 End: 01-30-2019 Sex Female (finding) [facility] Start: 01-11-2025 Alcoholic beverage intake Lifetime non-drinker (finding) [facility] Has the electric, gas, oil, or water micecloud threatened to shut off services in your home in past 12Mo No Effector [facility] NEGATED: Highlighted row [facility] Medical Equipment Procedure Code Equipment Code Equipment Origin al Text Equipment Identifier Dates [facility] [id number] Start: 11-14-2011 Tube Malena Juan in Vent 520-181 - [id number] Start: 02-17-2010 Tube Ear Jacquelyn Bx/5 Bill - [id number] Start: 11-02-2017 Goals Date Patient Goal Desired Activity /State Personal health goal Comment on above: Formatting of this n ote might be different from the original. Evaluation of progress towards goal: Safe dc transition from hospital to home. Functional Status Date Assessment Result Facility 08-21-2015 Are you deaf, or do you have serious difficulty hearing No 08/21/2015 10:22 AM Angela Hernandez, JESSIE [facility] 08-21-2015 Are you blind, or do you have serious difficulty seeing, even when wearing glasses No 08/21/2015 10:22 AM Angela Hernandez, JESSIE [facility] 08-21-2015 Do you have serious difficulty walking or climbing stairs No 08/21/2015 10:22 AM Angela Hernandez, JESSIE [facility] 08-21-2015 Do you have difficul ty dressing or bathing No 08/21/2015 10:22 AM Angela Hernandez, JESSIE [facility] Mental Status Date Assessment Result Facility 08-21-2015 Because of a physica l, mental, or emotional condition, do you have serious difficulty concentrating, remembering, or making decisions No 08/21/2015 10:22 AM Angela Hernandez, JESSIE No [facility] Clinical Notes 11-17-2015 to 03-19-2025 Telephone Encounter - Otilia Gomez LPN - 03/19/2025 7:33 AM EDTTelephone Encounter - Otilia Gomez LPN - 03/19/2025 7:33 AM EDTTelephone Encounter - Lily Lutz - 11/22/2024 1:37 PM EST Note Date & Type Note Facility 03-19-2025 Telephone encounter Note Patient phones requesting refills as follows: BERENICE: 08/16/2023 FOV: none noted Patient will need follow up appointment, routed to [facility] anesthesiology faculty at this time. Requested Prescriptions Pending Prescriptions Disp Refills clindamycin (CLEOCIN) 1 % external solution [Pharmacy Med Name: CLINDAMYCIN PH 1% SOLUTION] 60 mL 0 Sig: APPLY TO AFFECTED AREAS ON FACE ONCE EVERYDAY Please review and advise. Otilia Gomez LPN [facility] 03-19-2025 Miscellaneous Notes Patient phones requesting refills as follows: BERENICE: 08/16/2023 FOV: none noted Patient will need follow up appointment, routed to [facility] anesthesiology faculty at this time. Requested Prescriptions Pending Prescriptions Disp Refills clindamycin (CLEOCIN) 1 % external solution [Pharmacy Med Name: CLINDAMYCIN PH 1% SOLUTION] 60 mL 0 Sig: APPLY TO AFFECTED AREAS ON FACE ONCE EVERYDAY Please review and advise. Otilia Gomez LPN documented in this encounter [facility] 02-18-2025 Radiology Diagnostic study note [facility] [place] [address] Ultrasound Report Signed Patient: Charis Allen MR#: [id number] : 2000 Acct:[id number] Age/Sex: 24 / F ADM Date: 5 Loc: ER Room: Type: [facility] ER Attending Dr: Ordering Provider: Yaritza Bauer APRN Date of Service: 02/18/25 US/US OB <= 14 weeks fetus: Abdominal Pain ([id number]) US/US OB transvaginal: R/O ECTOPIC Copies to: Yaritza Bauer APRN~ Obstetrical ultrasound for fetus less than 14 weeks transabdominal and transvaginal imaging HISTORY: Intermittent left-sided abdominal pain COMPARISON: None Intrauterine sac measures up to 3 mm. No cardiac activity. No yolk sac seen. No pole identified. Anechoic left ovarian cyst measures up to 2.3 cm. Right ovary unremarkable. No adnexal mass. No free fluid. Endometrial complex measures up to 16 mm in total combined thickness. Color and Doppler flow of both ovaries. US/US OB <= 14 weeks fetus IMPRESSION: Intrauterine sac. No cardiac activity, pole or yolk sacseen. No adnexal Mass or free fluid. Left ovarian cyst. May consider very early intrauterine gestation. Follow-up assessment to confirm viable intrauterine gestation recommended. Ectopic not entirely excluded. May also consider serialbeta hCG levels. Impression dictated by: Michael Camacho M.D. 02/18/2025 8:45 PM Dictation Location: [facility] Medical Tech: Roselia Hammad Transcribed By: REMINGTON 02/18/252044 Dictated By: Michael Camacho DO 02/18/252034 Signed By: 02/18/252044 [facility] 01-08-2025 Telephone encounter Note Patient phones requesting refills as follows: BERENICE: 01/04/2023 FOV: 02/19/2025 Requested Prescriptions Pending Prescriptions Disp Refills clindamycin (CLEOCIN) 1 % external solution 60 mL 0 Sig: APPLY TO AFFECTED AREAS ON FACE ONCE A DAY Please review and advise. Liz Oswald MA [facility] 01-08-2025 Miscellaneous Notes Patient phones requesting refills as follows: BERENICE: 01/04/2023 FOV: 02/19/2025 Requested Prescriptions Pending Prescriptions Disp Refills clindamycin (CLEOCIN) 1 % external solution 60 mL 0 Sig: APPLY TO AFFECTED AREAS ON FACE ONCE A DAY Please review and advise. Liz Oswald MA documented in this encounter [facility] 01-07-2025 Telephone encounter Note Temporary refill until patient is seen as it has been greater than 1 year since last appointment. Please call patient and schedule a follow up appointment for acne within next 2 months. Mary Ann Levin MD [facility] 01-07-2025 Miscellaneous Notes Temporary refill until patient is seen as it has been greater than 1 year since last appointment. Please call patient and schedule a follow up appointment for acne within next 2 months. Mary Ann Levin MD Patient phones requesting refills as follows: BERENICE: 08/16/23 Patient will need a follow up appointment, routed to anesthesiology faculty. Requested Prescriptions Pending Prescriptions Disp Refills clindamycin (CLEOCIN) 1 % external solution [Pharmacy Med Name: CLINDAMYCIN PH 1% SOLUTION] 60 mL 3 Sig: APPLY TO AFFECTED AREAS ON FACE ONCE A DAY Please review and advise. RONALD Montenegro documented in this encounter [facility] 01-07-2025 Telephone encounter Note Patient phones requesting refills as follows: BERENICE: 08/16/23 Patient will need a follow up appointment, routed to anesthesiology faculty. Requested Prescriptions Pending Prescriptions Disp Refills clindamycin (CLEOCIN) 1 % external solution [Pharmacy Med Name: CLINDAMYCIN PH 1% SOLUTION] 60 mL 3 Sig: APPLY TO AFFECTED AREAS ON FACE ONCE A DAY Please review and advise. RONALD Montenegro [facility] 11-22-2024 Telephone encounter Note Refill of concerta [facility] mg [facility] 11-22-2024 Miscellaneous Notes Refill of concerta [facility] documented in this encounter [facility] 11-04-2024 History of Present illness Narrative [facility] [address] [place] [address] SUBJECTIVE: Patient ID (2000): Charis Allen is a 24 y.o. female presents today for Chief Complaint Patient presents with Follow-up 4-6 week follow up HPI: Charis is seen in follow up today for biopsy site recheck. Patient was last seen on 09/11/2024. Patient with previous base of tongue lesion that was benign. Patient is able to drink liquids, eat solids, and swallow without pain. She has no other post operative complications. She also does not have a sore throat anymore. Patient is here to check biopsy site. She denies any throat pain, dysphagia, and bleeding. HISTORY: Past Medical History: Diagnosis Date Allergic Anxiety Cerebellar tonsillar ectopia (CMS-HCC) Concussion Multiple Depression Dysfunction of both eustachian tubes Head injury 2010 With LOC Headache History of chicken pox 2011 HL (hearing loss) Past Surgical History: Procedure Laterality Date ADENOIDECTOMY Bilateral 11/02/2017 Performed by Karthikeyan Lopez MD at [facility] APPENDECTOMY 2016 APPLICATION GRAFT PAPER PATCH EAR Right 06/04/2024 Performed by Mich Verde MD at [facility] BRAIN SURGERY CRANIOTOMY CHIARI DECOMPRESSION / N/A 01/27/2023 Performed by Ajay Barbosa MD at [facility] CYSTOSCOPY RETROGRADE PYELOGRAM Bilateral 11/30/2022 Performed by Margot Hernandez MD at [facility] DILATION AND CURETTAGE OF UTERUS 07/31/2023 DIRECT LARYNGOSCOPY WITH BIOPSY BASE OF TONGUE LESION Right 08/27/2024 Performed by Luis Enrique Jennings DO at [facility] EUSTACHIAN TUBE DILATION Bilateral 11/02/2017 Performed by Karthikeyan Lopez MD at [facility] POSTERIOR LAMINECTOMY CERVICAL SINGLE LEVEL / C1 N/A 01/27/2023 Performed by Ajay Barbosa MD at [facility] REMOVAL TUBE EAR Right 06/04/2024 Performed by Mich Verde MD at [facility] TONSILLECTOMY TYMPANOSTOMY TUBE PLACEMENT TYMPANOTOMY WITH PERMANENET VENT TUBE INSERTION. TYMPANOTOMY WITH NONPERMANENT TUBE IN LEFT EAR Bilateral 11/02/2017 Performed by Karthikeyan Lopez MD at [facility] Family History Problem Relation Age of Onset [...] History Narrative Lives alone. 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 Social Drivers of Health Financial Resource Strain: Patient Declined (11/12/2023) [facility] Overall Financial Resource Strain (CARDIA) Difficulty of Paying Living Expenses: Patient declined Food Insecurity: No Food Insecurity (08/20/2024) Hunger Screening Food Insecurity - Worry: Never True Food Insecurity - Inability: Never True Transportation Needs: Patient Declined (11/12/2023) Received from [facility] PRAP[facility] - Transportation Lack of Transportation (Medical): Patient declined Lack of Transportation (Non-Medical): Patient declined Physical Activity: Patient Declined (11/12/2023) [facility] Exercise Vital Sign Days of Exercise per Week: Patient declined Minutes of Exercise per Session: Patient declined Stress: Not on file Social Connections: Unknown (11/12/2023) Received from [facility] Social Connection and Isolation Panel [NHANES] Frequency of Communication with Friends and Family: Patient declined Frequency of Social Gatherings with Friends and Family: Patient declined Attends Jain Services: Not on file Active Member of Clubs or Organizations: Patient declined Attends Club or Organization Meetings: Patient declined Marital Status: Patient declined Interpersonal Safety: Patient Declined (11/12/2023) Received from [facility], [facility] Humiliation, Afraid, Rape, and Kick questionnaire [...] for chills and fever. HENT: Positive for rhinorrhea, sinus pressure, sinus pain and sore throat. Negative for congestion, ear pain, postnasal drip and trouble swallowing. Respiratory: Negative for cough and shortness of breath. Cardiovascular: Negative for chest pain and palpitations. Gastrointestinal: Negative for nausea and vomiting. Musculoskeletal: Negative for neck pain and neck stiffness. Allergic/Immunologic: Positive for environmental allergies. Neurological: Negative for dizziness, light-headedness and headaches. Hematological: Does not bruise/bleed easily. Data Reviewed: PHYSICAL EXAMINATION: Temp 36.7 C (98.1 F) (Temporal) Ht 170.2 cm (5' 7 ) Wt 68.2 kg (150 lb 6.4 oz) BMI 23.56 kg/m Constitutional: Healthy, alert, cooperative, and in no distress and normal ablility to communicate . Voice normal quality. Head/Face: Normocephalic, without obvious abnormality, salivary glands normal, atraumatic, sinuses nontender, and facial nerve intact Eyes: No gross abnormalities., EOMI, no nystagmus, and no lid ptosis Ear: RIGHT: external ear normal LEFT: external ear normal Nose: External nose appears normal Oral: normal teeth, normal lips, normal gums, normal hard palate, normal anterior tongue, and oral mucosa moist Oropharynx: normal-appearing mucosa, no pharyngitis, no exudate, tonsils surgically absent, normal soft palate and uvula, and biopsy site healed well TMJ: no pain, crepitus, or trismus Neck:normal, [...] this visit: Lesion of tongue Plan: - Patient has no pain and is eating/drinking per norm. Biopsy site is well-healed on exam. - Return as needed. Scribe Statement: Scribed for and in the presence of Luis Enrique Jennings DO by Francisco Garcia (scribe). Francisco Garcia 11/04/2024 1:45 PM Provider Statement: I Luis Enrique Jennings DO personally performed the services described in the documentation as described by the above named scribe in my presence. It is both accurate and complete at the time of final signature. Dr. Luis Enrique Jennings 11/04/2024 11:19 AM Counseling: The following elements of medical decision making were considered during this visit: Reviewed and summarized previous records. The patient was counseled regarding prognosis, risks and benefits of treatment options, impressions, importance of compliance with treatment and risk factor reductions. The patient verbalized understanding and agreement to the plan. Please note that parts of this chart were generated using voice recognition M*Modal dictation software. Although every effort was made to ensure the accuracy of this automated defensive secondary coach, some errors in defensive secondary coach may have occurred. documented in this encounter [employer] 11-04-2024 Instructions Francisco Garcia - 11/04/2024 1:45 PM EST - Patient has no pain and is eating/drinking per norm. Biopsy site is well-healed on exam. - Return as needed. documented in this encounter [facility] 10-28-2024 History of Present illness Narrative UP documented in this encounter [facility] 10-23-2024 History of Present illness Narrative [...] (CMS/HCC) 12/27/2022 History of chicken pox Migraines ([facility]) Seasonal allergies Past Surgical History: Procedure Laterality Date APPENDECTOMY 2012 DILATION AND CURETTAGE OF UTERUS 2022 suction D&C TONSILLECTOMY 2010 & adenoids TYMPANOSTOMY TUBE PLACEMENT Right permanant [...] response to treatment. documented in this encounter [facility] 10-21-2024 History of Present illness Narrative [...] Insecurity: No Food Insecurity (08/20/2024) Received from [facility] Hunger Screening Within the past 12 months [...] with Friends and Family: Patient declined Attends Jain Services: Not on file Active Member of [...] tablet, Rfl: 0 documented in this encounter [facility] 09-12-2024 Telephone encounter Note Patient phones requesting refills as follows: BERENICE: 08/16/2023 FOV: 10/10/2024 Requested Prescriptions Pending Prescriptions Disp Refills clindamycin (CLEOCIN) 1 % external solution [Pharmacy Med Name: CLINDAMYCIN PH 1% SOLUTION] 60 mL 3 Sig: APPLY TO AFFECTED AREAS ON FACE ONCE A DAY Please review and advise. Otilia Gomez LPN [facility] 09-12-2024 Miscellaneous Notes Patient phones requesting refills as follows: BERENICE: 08/16/2023 FOV: 10/10/2024 Requested Prescriptions Pending Prescriptions Disp Refills clindamycin (CLEOCIN) 1 % external solution [Pharmacy Med Name: CLINDAMYCIN PH 1% SOLUTION] 60 mL 3 Sig: APPLY TO AFFECTED AREAS ON FACE ONCE A DAY Please review and advise. Otilia Gomez LPN documented in this encounter [facility] 09-11-2024 History of Present illness Narrative Images from the original note were not included. [facility] [address] [place] [address], [address] [id number] SUBJECTIVE: Patient ID (2000): Charis Allen is [...] 11/02/2017 Performed by Karthikeyan Lopez MD at [facility] APPENDECTOMY 2016 APPLICATION GRAFT PAPER PATCH EAR Right 06/04/2024 Performed by Mich Verde MD at [facility] CRANIOTOMY CHIARI DECOMPRESSION / N/A 01/27/2023 Performed by Ajay Barbosa MD at [facility] CYSTOSCOPY RETROGRADE PYELOGRAM Bilateral 11/30/2022 Performed by Margot Hernandez MD at [facility] DILATION AND CURETTAGE OF UTERUS 07/31/2023 DIRECT LARYNGOSCOPY WITH BIOPSY BASE OF TONGUE LESION Right 08/27/2024 Performed by Luis Enrique Jennings DO at [facility] EUSTACHIAN TUBE DILATION Bilateral 11/02/2017 Performed by Karthikeyan Lopez MD at [facility] POSTERIOR LAMINECTOMY CERVICAL SINGLE LEVEL / C1 N/A 01/27/2023 Performed by Ajay Barbosa MD at [facility] REMOVAL TUBE EAR Right 06/04/2024 Performed by Mich Verde MD at [facility] TONSILLECTOMY TYMPANOSTOMY TUBE PLACEMENT TYMPANOTOMY WITH PERMANENET VENT TUBE INSERTION. TYMPANOTOMY WITH NONPERMANENT TUBE IN LEFT EAR Bilateral 11/02/2017 Performed by Karthikeyan Lopez MD at [facility] Family History Problem Relation Age of Onset [...] History Narrative Lives alone. 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 Social Drivers of Health Financial Resource Strain: Patient Declined (11/12/2023) Received from [facility] [employer] [facility] Overall Financial Resource Strain (CARDIA) Difficulty of Paying Living Expenses: Patient declined Food Insecurity: No Food Insecurity (08/20/2024) Hunger Screening Food Insecurity - Worry: Never True Food Insecurity - Inability: Never True Transportation Needs: Patient Declined (11/12/2023) Received from [facility] [employer] [facility] PRAPARE - Transportation Lack of Transportation (Medical): Patient declined Lack of Transportation (Non-Medical): Patient declined Physical Activity: Patient Declined (11/12/2023) Received from [facility] [employer], [facility] Exercise Vital Sign Days of Exercise per Week: Patient declined Minutes of Exercise per Session: Patient declined Stress: Not on file Social Connections: Unknown (11/12/2023) Received from [facility], [facility] Social Connection and Isolation Panel [NHANES] Frequency of Communication with Friends and Family: Patient declined Frequency of Social Gatherings with Friends and Family: Patient declined Attends Jain Services: Not on file Active Member of Clubs or Organizations: Patient declined Attends Club or Organization Meetings: Patient declined Marital Status: Patient declined Interpersonal Safety: Patient Declined (11/12/2023) Received from [facility], [facility] Humiliation, Afraid, Rape, and Kick questionnaire [...] examined by mirror, normal, normal epiglottis, pharyngeal ugnn: normal, base of tongue: granulation/exudates from cautery, [...] and in the presence of Luis Enrique Jennings, DO by Francisco Garcia (scribe). Francisco Garcia [...] this chart were generated using voice recognition [employer]PO dictation software. Although every effort was made to ensure the accuracy of this automated defensive secondary coach, some errors in defensive secondary coach may have occurred. documented [facility] Instructions Francisco Garcia - 09/11/2024 10:30 AM EST - Reviewed patient's surgical pathology from direct laryngoscopy with biopsy of base of tongue lesion. This showed benign papillomatous neoplasm. - On exam, biopsy site healing well with granulation/exudates from cautery. - Return to ENT in 4-6 weeks if needed to check biopsy site. [facility] History of Present illness Narrative Images [...] 11/02/2017 Performed by Karthikeyan Lopez MD at [facility] APPENDECTOMY 2016 APPLICATION GRAFT PAPER PATCH EAR Right 06/04/2024 Performed by Mich Verde MD at [facility] CRANIOTOMY CHIARI DECOMPRESSION / N/A 01/27/2023 Performed by Ajay Barbosa MD at [facility] CYSTOSCOPY RETROGRADE PYELOGRAM Bilateral 11/30/2022 Performed by Margot Hernandez MD at [facility] DILATION AND CURETTAGE OF UTERUS 07/31/2023 DIRECT LARYNGOSCOPY WITH BIOPSY BASE OF TONGUE LESION Right 08/27/2024 Performed by Luis Enrique Jennings DO at [facility] EUSTACHIAN TUBE DILATION Bilateral 11/02/2017 Performed by Karthikeyan Lopez MD at [facility] POSTERIOR LAMINECTOMY CERVICAL SINGLE LEVEL / C1 N/A 01/27/2023 Performed by Ajay Barbosa MD at [facility] REMOVAL TUBE EAR Right 06/04/2024 Performed by Mich Verde MD at [facility] TONSILLECTOMY TYMPANOSTOMY TUBE PLACEMENT TYMPANOTOMY WITH PERMANENET VENT TUBE INSERTION. TYMPANOTOMY WITH NONPERMANENT TUBE IN LEFT EAR Bilateral 11/02/2017 Performed by Karthikeyan Lopez MD at [facility] SOCIAL HISTORY Social History Tobacco Use [...] MA 09/10/24 1605 documented in this encounter [facility] 09-10-2024 Instructions Linette Gurrola - 09/10/2024 4:15 PM EST - Microscopic examination was completed in office today. The ears appear to be healing well postoperatively. Cerumen was removed for the bilateral canals. - Continue watchful monitoring. documented in this encounter [facility] 09-10-2024 History of Present illness Narrative AUDIOLOGIC [...] other thresholds stable. Reliability: good Speech Audiometry: SRT/PICKING MACHINE OPERATOR in good agreement WRS: Right Ear: Excellent (100%) Left Ear: Excellent (100%) RECOMMENDATIONS: Follow up with Dr. Mich Verde Retest as needed Patrick Hanley, [facility] [employer] documented in this encounter [facility] 09-04-2024 Miscellaneous Notes Called patient and discussed [...] at 1030 am. documented in this encounter [facility] 09-04-2024 Telephone encounter Note Called patient and [...] Dr. Jennings on Monday at 1030 am. [facility] 09-03-2024 History of Present illness Narrative To help with acute post op swelling. documented in this encounter [facility] 08-29-2024 Miscellaneous Notes Patient called 08/29 because she needs a return to work note. Patient had a biopsy done on 08/27 and will be going back to work on 08/30. Patient said it is ok to send it to her [employer]. Is patient okay to go back to work 08/30/24? As long as she is no longer taking norco, she may return to work. Please provide letter. Thank you. Left a message for the patient informing her that as long as she is no longer taking the Clyman pain medication she can return to work tomorrow 08/30/24. I will upload this letter to her [employer]. Asked her to give the office a call back if she is still taking her Clyman and we can correct the note for a later date. documented in this encounter [facility] 08-29-2024 Telephone encounter Note Patient called 08/29 because she needs a return to work note. Patient had a biopsy done on 08/27 and will be going back to work on 08/30. Patient said it is ok to send it to her mychart. [employer] [facility] 08-29-2024 Telephone encounter Note Is patient okay to go back to work 08/30/24? . [facility] [employer] [facility] 08-29-2024 Telephone encounter Note As long as she is no longer taking norco, she may return to work. Please provide letter. Thank you. [facility] 08-29-2024 Telephone encounter Note Left a message for the patient informing her that as long as she is no longer taking the Clyman pain medication she can return to work tomorrow 08/30/24. I will upload this letter to her [employer]. Asked her to give the office a call back if she is still taking her Clyman and we can correct the note for a later date. . [facility] [employer] [facility] 08-20-2024 Instructions Formatting of th is note might be different from the original. Your surgery/procedure is scheduled at [facility] on 08/27/2024 at 1245p Arrival Time 1045a [facility] Address: [address] [place] [address], [facility] Park in the Emergency Center Parking lot. Report to the front line leader in the Emergency/Surgery Registration lobby of the hospital. Notify your SURGEON if you develop any illness such as a cold, cough, fever, sore throat, vomiting or are hospitalized between now and your surgery. Please call Pre-Admission Clinic at [phone] if you have any questions prior to surgery. For questions the morning of surgery, call the Pre-op Department at [phone]. Medication Instructions (Do not stop your medications [...] weekly, hold 1 week prior to surgery: Brantuntioro . Blood thinners: Please contact your prescribing [...] in it If applicable, shower again with G soap the morning of your surgery. If [...] would like to schedule therapy at a [facility] facility, please call [phone] ([phone]). Do not use lotions, creams, powders, perfume, make up, cologne or after-shaves day of surgery. Remove ALL jewelry including wedding rings, body piercings, hair extensions that contain metal, nail indonesian, make-up, and contact lens. You may brush your teeth the morning of surgery, but do not swallow the water. Wear your dentures and partial plates to the hospital (no adhesive). Shower the night the before. If applicable, use the CHG (chlorhexidine gluconate) soap or wipes. Please be advised, [employer] has transitioned to a cashless payment system. [...] RIGHTS AND RESPONSIBILITIES As a patient at [facility], you have the right to: Receive medical care and be informed of who is taking care of you Be treated with dignity and respect Have a family member/apprenticeship training representative of choice and your physician notified of your admission Receive information and actively participate in decisions about your care and treatment Refuse care, treatment and services Decide who may provide your support and speak for you Access jew and spiritual services Participate in ethical issues [...] of hospital charges and payment methods Patient/patient apprenticeship training representative responsibilities are to: Provide information about health status to facilitate care, treatment and services Follow the treatment, plan, keep appointments and speak up when you do not understand the plan Respect the rights of other patients and healthcare personnel Follow organizational rules and regulations that support quality care and a safe environment Fulfill financial obligations as promptly as possible [facility] 08-20-2024 Miscellaneous Notes Your surgery/procedure is scheduled at [facility] on 08/27/2024 at 1245p Arrival Time 1045a [facility] Address: [address] [place] [address], [facility], [address] Park in the Emergency Center Parking lot. Report to the front line leader in the Emergency/Surgery Registration lobby of the hospital. Notify your SURGEON if you develop any illness such as a cold, cough, fever, sore throat, vomiting or are hospitalized between now and your surgery. Please call Pre-Admission Clinic at [phone] if you have any questions prior to surgery. For questions the morning of surgery, call the Pre-op Department at [phone]. Medication Instructions (Do not stop your medications [...] weekly, hold 1 week prior to surgery: Mountioro . Blood thinners: Please contact your prescribing [...] would like to schedule therapy at a [facility] facility, please call [address] [place] [address] ([phone]). Do not use lotions, creams, powders, perfume, make up, cologne or after-shaves day of surgery. Remove ALL jewelry including wedding rings, body piercings, hair extensions that contain metal, nail indonesian, make-up, and contact lens. You may brush your teeth the morning of surgery, but do not swallow the water. Wear your dentures and partial plates to the hospital (no adhesive). Shower the night the before. If applicable, use the CHG (chlorhexidine gluconate) soap or wipes. Please be advised, [facility] has transitioned to a cashless payment system. [...] RIGHTS AND RESPONSIBILITIES As a patient at [facility], you have the right to: Receive medical care and be informed of who is taking care of you Be treated with dignity and respect Have a family member/apprenticeship training representative of choice and your physician notified of your admission Receive information and actively participate in decisions about your care and treatment Refuse care, treatment and services Decide who may provide your support and speak for you Access jew and spiritual services Participate in ethical issues [...] of hospital charges and payment methods Patient/patient apprenticeship training representative responsibilities are to: Provide information about [...] promptly as possible documented in this encounter [facility] 08-17-2024 History of Present illness Narrative Leidy documented in this encounter [facility] 08-13-2024 History of Present illness Narrative Images from the original note were not included. Jona Vann MD Obstetrics and Gynecology Patient: Charis Allen Baltazar : 2000 (23 y.o.) Yearly Wellness Exam [...] for hormone balance. 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 documented in this encounter [facility] 08-07-2024 Miscellaneous Notes Surgery Scheduling Request 08/07/24 Patient: Charis Otilia Tiffany : 2000 Surgical Procedure(s): Direct laryngoscopy With biopsy of right base of tongue lesion Side(s): Right Anesthesia: General Surgery Time: 30 minutes Facility Preference: [facility] Post Op Destination: Outpatient Preop Anesthesia Appointment?: Yes Lab Testing?: No Medical Clearance Required?: No Does medical clearance include perioperative management of anticoagulants? No When should patient follow up after surgery? 1-[address] Jennings documented in this encounter [facility] [employer] 08-07-2024 Telephone encounter Note Surgery Scheduling Request 08/07/24 Patient: Charsi Washingtonzehra Allen : 2000 Surgical Procedure(s): Direct laryngoscopy With biopsy of right base of tongue lesion Side(s): Right Anesthesia: General Surgery Time: 30 minutes Facility Preference: [facility] Post Op Destination: Outpatient Preop Anesthesia Appointment?: Yes Lab Testing?: No Medical Clearance Required?: No Does medical clearance include perioperative management of anticoagulants? No When should patient follow up after surgery? 1-[address] Jennings [employer] Work Phone: 08-07-2024 History of Present illness Narrative Images from the original note were not included. [facility] [address] [place] [address] [place] [phone] SUBJECTIVE: Patient ID (2000): Charis Allen is a 23 y.o. female presents today for Chief Complaint Patient presents with Sore Throat Chronic HPI: Charsi is seen as a new patient today [...] has allergies but does not have an vice president & general manager brand [place]. She takes Claritin. She takes a throat [...] 11/02/2017 Performed by Karthikeyan Lopez MD at [facility] APPENDECTOMY 2016 APPLICATION GRAFT PAPER PATCH EAR Right 06/04/2024 Performed by Mich Verde MD at [facility] CRANIOTOMY CHIARI DECOMPRESSION / N/A 01/27/2023 Performed by Ajay Barbosa MD at [facility] CYSTOSCOPY RETROGRADE PYELOGRAM Bilateral 11/30/2022 Performed by Margot Hernandez MD at [facility] DILATION AND CURETTAGE OF UTERUS 07/31/2023 EUSTACHIAN TUBE DILATION Bilateral 11/02/2017 Performed by Karthikeyan Lopez MD at [facility] POSTERIOR LAMINECTOMY CERVICAL SINGLE LEVEL / C1 N/A 01/27/2023 Performed by Ajay Barbosa MD at [facility] REMOVAL TUBE EAR Right 06/04/2024 Performed by Mich Verde MD at [facility] TONSILLECTOMY TYMPANOSTOMY TUBE PLACEMENT TYMPANOTOMY WITH PERMANENET VENT TUBE INSERTION. TYMPANOTOMY WITH NONPERMANENT TUBE IN LEFT EAR Bilateral 11/02/2017 Performed by Karthikeyan Lopez MD at [facility] Family History Problem Relation Age of Onset [...] History Narrative Lives alone. 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 Social Drivers of Health Financial Resource Strain: Patient Declined (11/12/2023) Received from [facility], [facility] Overall Financial Resource Strain (CARDIA) Difficulty of Paying Living Expenses: Patient declined Food Insecurity: No Food Insecurity (08/20/2024) Hunger Screening Food Insecurity - Worry: Never True Food Insecurity - Inability: Never True Transportation Needs: Patient Declined (11/12/2023) Received from [facility] PRAPARE - Transportation Lack of Transportation (Medical): Patient declined Lack of Transportation (Non-Medical): Patient declined Physical Activity: Patient Declined (11/12/2023) Received from [facility] Exercise Vital Sign Days of Exercise per Week: Patient declined Minutes of Exercise per Session: Patient declined Stress: Not on file Social Connections: Unknown (11/12/2023) Received from [facility] Social Connection and Isolation Panel [NHANES] Frequency of Communication with Friends and Family: Patient declined Frequency of Social Gatherings with Friends and Family: Patient declined Attends Jain Services: Not on file Active Member of Clubs or Organizations: Patient declined Attends Club or Organization Meetings: Patient declined Marital Status: Patient declined Interpersonal Safety: Patient Declined (11/12/2023) Received from [facility] Humiliation, Afraid, Rape, and Kick questionnaire [...] flush 3 mL 3 mL intravenous Q12H [facility] Caden Thomas MD REVIEW OF SYSTEMS: Review [...] laryngoscopy video with Tiesha. This showed a urkzz-mwxa-qc-tongue lesion that is possibly a papilloma versus [...] be put on a regimen by an vice president & general manager [employer] [place] or undergo immunotherapy if indicated. She respectfully [...] covered benefit. Patient may call Jamil at [phone] to schedule surgery. - POSTOP INSTRUCTIONS You [...] concerns please do not hesitate to call [phone] Dr. Luis Enrique Jennings Scribe Statement: Scribed [...] to ensure the accuracy of this automated defensive secondary coach, some errors in defensive secondary coach may have occurred. documented in this encounter [employer] 08-07-2024 Instructions Francisco Garcia - 08/07/2024 10:00 AM EDT - Reviewed patient's CT neck soft tissue. This was unremarkable. - Reviewed patient's previous flexible laryngoscopy video with Tiesha. This showed a zaqha-zgbl-ma-tongue lesion that is possibly a papilloma versus [...] be put on a regimen by an vice president & general manager [employer] [place] or undergo immunotherapy if indicated. She respectfully [...] covered benefit. Patient may call Jamil at [phone] to schedule surgery. - POSTOP INSTRUCTIONS You [...] concerns please do not hesitate to call [phone] Dr. Dudley Vu documented in this encounter [employer] 07-25-2024 Instructions Olga Thompson MA - 07/25/2024 [...] used in shoes. documented in this encounter [facility] 07-25-2024 Note HNO ID: [id number] Author: ÁNGELA DELGADO DPM Service: ? Author [...] which included preparing to see the patient, [id number] patient care, completing clinical documentation, obtaining and/or reviewing separately obtained history, performing a medically appropriate examination, counseling and educating the patient/family/caregiver, ordering medications, tests and care coordination (not separately reported). Time did not include procedure time. I agree with the Chief Complaint, ROS, and Past Histories independently gathered by the clinical client support consultant and the remaining scribed note accurately describes my personal service to the patient. This document has been created with the use of voice recognition technology. It may contain inaccuracies, misspellings, inaccurate syntax or inappropriate word context that escaped review. Ángela Delgado DPM [facility] 10-17-2024 History of Present illness Narrative Service Date: [...] which included preparing to see the patient, [id number] patient care, completing clinical documentation, obtaining and/or reviewing separately obtained history, performing a medically appropriate examination, counseling and educating the patient/family/caregiver, ordering medications, tests and care coordination (not separately reported). Time did not include procedure time. I agree with the Chief Complaint, ROS, and Past Histories independently gathered by the clinical client support consultant and the remaining scribed note accurately describes my personal service to the patient. This document has been created with the use of voice recognition technology. It may contain inaccuracies, misspellings, inaccurate syntax or inappropriate word context that escaped review. Ángela Delgado DPM documented in this encounter [facility] 07-17-2024 History of Present illness Narrative Images [...] deficit hyperactivity disorder (ADHD), combined type (CMS/HCC) - methylphenidate ER (Concerta) 18 MG CR [...] questions or concerns. documented in this encounter [facility] 07-17-2024 Miscellaneous Notes Returned patient's call. No answer, left message on machine to call back. documented in this encounter [facility] 07-17-2024 Telephone encounter Note Returned patient's call. No answer, left message on machine to call back. [facility] 07-15-2024 History of Present illness Narrative Patient [...] 11/02/2017 Performed by Karthikeyan Lopez MD at [facility] APPENDECTOMY 2016 APPLICATION GRAFT PAPER PATCH EAR Right 06/04/2024 Performed by Mich Verde MD at [facility] CRANIOTOMY CHIARI DECOMPRESSION / N/A 01/27/2023 Performed by Ajay Barbosa MD at [facility] CYSTOSCOPY RETROGRADE PYELOGRAM Bilateral 11/30/2022 Performed by Margot Hernandez MD at [facility] DILATION AND CURETTAGE OF UTERUS 07/31/2023 EUSTACHIAN TUBE DILATION Bilateral 11/02/2017 Performed by Karthikeyan Lopez MD at [facility] POSTERIOR LAMINECTOMY CERVICAL SINGLE LEVEL / C1 N/A 01/27/2023 Performed by Ajay Barbosa MD at [facility] REMOVAL TUBE EAR Right 06/04/2024 Performed by Mich Vered MD at [facility] TONSILLECTOMY TYMPANOSTOMY TUBE PLACEMENT TYMPANOTOMY WITH PERMANENET VENT TUBE INSERTION. TYMPANOTOMY WITH NONPERMANENT TUBE IN LEFT EAR Bilateral 11/02/2017 Performed by Karthikeyan Lopez MD at [facility] SOCIAL HISTORY Social History Tobacco Use Smoking [...] of final signature. documented in this encounter [facility] 07-15-2024 Instructions Gm Garcia - 07/15/2024 3:30 PM EDT - Microscopic examination was completed in office today. The ears appear generally healthy. - Continue watchful monitoring. - Follow-up with audiogram . [facility] 07-03-2024 History of Present illness Narrative Images from the original note were not included. [facility] [address] [facility] [id number] SUBJECTIVE: Patient ID ([id number]): Charis Allen is [...] history of GERD. 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 HISTORY: Past Medical History: Diagnosis Date Cerebellar tonsillar ectopia (CMS-HCC) Concussion Multiple Dizziness Dysfunction of both eustachian tubes Head injury 2010 With LOC Headache History of chicken pox 2012 HL (hearing loss) Past Surgical History: Procedure Laterality Date ADENOIDECTOMY Bilateral 11/02/2017 Performed by Karthikeyan Lopez MD at [facility] APPENDECTOMY 2016 APPLICATION GRAFT PAPER PATCH EAR Right 06/04/2024 Performed by Mich Verde MD at [facility] CRANIOTOMY CHIARI DECOMPRESSION / N/A 01/27/2023 Performed by Ajay Barbosa MD at [facility] CYSTOSCOPY RETROGRADE PYELOGRAM Bilateral 11/30/2022 Performed by Margot Hernandez MD at [facility] DILATION AND CURETTAGE OF UTERUS 07/31/2023 EUSTACHIAN TUBE DILATION Bilateral 11/02/2017 Performed by Karthikeyan Lopez MD at [facility] POSTERIOR LAMINECTOMY CERVICAL SINGLE LEVEL / C1 N/A 01/27/2023 Performed by Ajay Barbosa MD at [facility] REMOVAL TUBE EAR Right 06/04/2024 Performed by Mich Verde MD at [facility] TONSILLECTOMY TYMPANOSTOMY TUBE PLACEMENT TYMPANOTOMY WITH PERMANENET VENT TUBE INSERTION. TYMPANOTOMY WITH NONPERMANENT TUBE IN LEFT EAR Bilateral 11/02/2017 Performed by Karthikeyan Lopez MD at [facility] Family History Problem Relation Age of Onset [...] History Narrative Lives alone. 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 of Health Financial Resource Strain: Patient Declined (11/12/2023) [facility] Overall Financial Resource Strain (CARDIA) Difficulty of Paying Living Expenses: Patient declined Food Insecurity: No Food Insecurity (05/21/2024) Hunger Screening Food Insecurity - Worry: Never True Food Insecurity - Inability: Never True Transportation Needs: Patient Declined (11/12/2023) Received from [facility] PRAPARE - Transportation Lack of Transportation (Medical): Patient declined Lack of Transportation (Non-Medical): Patient declined Physical Activity: Patient Declined (11/12/2023) Received from [facility] Exercise Vital Sign Days of Exercise per Week: Patient declined Minutes of Exercise per Session: Patient declined Stress: Not on file Social Connections: Unknown (11/12/2023) Received from [facility] Social Connection and Isolation Panel [NHANES] Frequency of Communication with Friends and Family: Patient declined Frequency of Social Gatherings with Friends and Family: Patient declined Attends Jain Services: Not on file Active Member of Clubs or Organizations: Patient declined Attends Club or Organization Meetings: Patient declined Marital Status: Patient declined Interpersonal Safety: Patient Declined (11/12/2023) [facility] Humiliation, Afraid, Rape, and Kick questionnaire [...] of tongue with mild asymmetry and right bpaj-oo-zjvpge lesion, possible papilloma versus other, erythema of [...] pt agrees to this plan. Provider Statement: I TIESHA RAI PA-C personally [...] this chart were generated using voice recognition [employer] dictation software. Although every effort was made to ensure the accuracy of this automated defensive secondary coach, some errors in defensive secondary coach may have occurred. Tiesha Rai PA-C 07/03/24 1707 Tiesha Rai PA-C 07/03/24 1719 documented in this encounter [employer] 07-03-2024 Instructions Tiesha Rai PA-C - 07/03/2024 [...] the throat directly. Should I see a reptile keeper (stomach specialist)? (GI) At some point, you may be referred to a reptile keeper, either for help with diagnosis or to [...] Breads Commercial whole grain or enriched bread, Armenian bread, hamburger buns, hard or plain rolls, saltines, vanessa crackers, jose toast, [place] muffins and bagels. Homemade biscuits, muffins, waffles, [...] adapted from/provided by [facility]. documented in this encounter [facility] 06-17-2024 Miscellaneous Notes Pt lm for refill of concerta DDM [place] documented in this encounter [facility] 06-17-2024 Telephone encounter Note Pt lm for refill of concerta DDM [place] [facility] 05-21-2024 History and physical note PRE-ADMISSION [...] 11/02/2017 Performed by Karthikeyan Lopez MD at [facility] APPENDECTOMY 2016 CRANIOTOMY CHIARI DECOMPRESSION / N/A 01/27/2023 Performed by Ajay Barbosa MD at [facility] CYSTOSCOPY RETROGRADE PYELOGRAM Bilateral 11/30/2022 Performed by Margot Hernandez MD at [facility] DILATION AND CURETTAGE OF UTERUS 07/31/2023 EUSTACHIAN TUBE DILATION Bilateral 11/02/2017 Performed by Karthikeyan Lopez MD at [facility] POSTERIOR LAMINECTOMY CERVICAL SINGLE LEVEL / C1 N/A 01/27/2023 Performed by Ajay Barbosa MD at [facility] TONSILLECTOMY TYMPANOSTOMY TUBE PLACEMENT TYMPANOTOMY WITH PERMANENET VENT TUBE INSERTION. TYMPANOTOMY WITH NONPERMANENT TUBE IN LEFT EAR Bilateral 11/02/2017 Performed by Karthikeyan Lopez MD at [facility] FAMILY HISTORY: Family History Problem Relation Age [...] History Narrative Lives alone. 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 of Health Financial Resource Strain: Patient Declined (11/12/2023) Received from [facility] Overall Financial Resource Strain (CARDIA) Difficulty of Paying Living Expenses: Patient declined Food Insecurity: No Food Insecurity (05/21/2024) Hunger Screening Food Insecurity - Worry: Never True Food Insecurity - Inability: Never True Transportation Needs: Patient Declined (11/12/2023) Received from [facility] PRAPARE - Transportation Lack of Transportation (Medical): Patient declined Lack of Transportation (Non-Medical): Patient declined Physical Activity: Patient Declined (11/12/2023) Received from [facility] Exercise Vital Sign Days of Exercise per Week: Patient declined Minutes of Exercise per Session: Patient declined Stress: Not on file Social Connections: Unknown (11/12/2023) Received from [facility] Social Connection and Isolation Panel [NHANES] Frequency of Communication with Friends and Family: Patient declined Frequency of Social Gatherings with Friends and Family: Patient declined Attends Jain Services: Not on file Active Member of Clubs or Organizations: Patient declined Attends Club or Organization Meetings: Patient declined Marital Status: Patient declined Interpersonal Safety: Patient Declined (11/12/2023) Received from [facility] Humiliation, Afraid, Rape, and Kick questionnaire [...] the most recent lab values available in PSYCHIATRIC at the time of the office visit, [...] Verde on 06/04/2024. JONAS Conte 05/21/[address] [facility] 05-21-2024 History and physical note PRE-ADMISSION [...] 11/02/2017 Performed by Karthikeyan Lopez MD at [facility] APPENDECTOMY 2016 CRANIOTOMY CHIARI DECOMPRESSION / N/A 01/27/2023 Performed by Ajay Barbosa MD at [facility] CYSTOSCOPY RETROGRADE PYELOGRAM Bilateral 11/30/2022 Performed by Margot Hernandez MD at [facility] DILATION AND CURETTAGE OF UTERUS 07/31/2023 EUSTACHIAN TUBE DILATION Bilateral 11/02/2017 Performed by Karthikeyan Lopez MD at [facility] POSTERIOR LAMINECTOMY CERVICAL SINGLE LEVEL / C1 N/A 01/27/2023 Performed by Ajay Barbosa MD at [facility] TONSILLECTOMY TYMPANOSTOMY TUBE PLACEMENT TYMPANOTOMY WITH PERMANENET VENT TUBE INSERTION. TYMPANOTOMY WITH NONPERMANENT TUBE IN LEFT EAR Bilateral 11/02/2017 Performed by Karthikeyan Lopez MD at [facility] FAMILY HISTORY: Family History Problem Relation Age [...] History Narrative Lives alone. 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 of Health Financial Resource Strain: Patient Declined (11/12/2023) Received from [facility] Overall Financial Resource Strain (CARDIA) Difficulty of Paying Living Expenses: Patient declined Food Insecurity: No Food Insecurity (05/21/2024) Hunger Screening Food Insecurity - Worry: Never True Food Insecurity - Inability: Never True Transportation Needs: Patient Declined (11/12/2023) Received from [facility] PRAPARE - Transportation Lack of Transportation (Medical): Patient declined Lack of Transportation (Non-Medical): Patient declined Physical Activity: Patient Declined (11/12/2023) Received from [facility] Exercise Vital Sign Days of Exercise per Week: Patient declined Minutes of Exercise per Session: Patient declined Stress: Not on file Social Connections: Unknown (11/12/2023) [facility] Social Connection and Isolation Panel [NHANES] Frequency of Communication with Friends and Family: Patient declined Frequency of Social Gatherings with Friends and Family: Patient declined Attends Jain Services: Not on file Active Member of Clubs or Organizations: Patient declined Attends Club or Organization Meetings: Patient declined Marital Status: Patient declined Interpersonal Safety: Patient Declined (11/12/2023) [facility] Humiliation, Afraid, Rape, and Kick questionnaire [...] the most recent lab values available in PSYCHIATRIC at the time of the office visit, [...] Conte 05/21/24 1354 documented in this encounter [facility] 05-21-2024 Instructions Di Briscoe RN - 05/21/2024 1:15 PM EDT Your surgery/procedure is scheduled at [facility] on June 04, 2024 at 9:00 am Arrival Time 7:00 am [facility] Address: [address] [place] [address] in [address] Parking lot located on [facility]. Report to the Entrance B. Check in at the information desk the surgery. The waiting room located on the second floor. If you have any questions prior to surgery, please call Pre-Admission Clinic at [phone] between 7:30 am and 4:30 pm Monday through Monday. If you have questions the morning of surgery, please call the Pre-op Department at [phone]. Notify your SURGEON if you develop any [...] piercings ,hair extensions that contain metal, nail indonesian, make-up, and contact lens. You may brush [...] RIGHTS AND RESPONSIBILITIES As a patient at [facility], you have the right to: Receive medical care and be informed of who is taking care of you Be treated with dignity and respect Have a family member/apprenticeship training representative of choice and your physician notified of your admission Receive information and actively participate in decisions about your care and treatment Refuse care, treatment and services Decide who may provide your support and speak for you Access jew and spiritual services Participate in ethical issues [...] of hospital charges and payment methods Patient/patient apprenticeship training representative responsibilities are to: Provide information about [...] promptly as possible [facility] History of Present illness Narrative Patient [...] 11/02/2017 Performed by Karthikeyan Lopez MD at [facility] APPENDECTOMY age 15 CRANIOTOMY CHIARI DECOMPRESSION / N/A 01/27/2023 Performed by Aajy Barbosa MD at [facility] CYSTOSCOPY RETROGRADE PYELOGRAM Bilateral 11/30/2022 Performed by Margot Hernandez MD at [facility]ERY DILATION AND CURETTAGE OF UTERUS 07/31/2023 EUSTACHIAN TUBE DILATION Bilateral 11/02/2017 Performed by Karthikeyan Lopez MD at [facility] POSTERIOR LAMINECTOMY CERVICAL SINGLE LEVEL / C1 N/A 01/27/2023 Performed by Ajay Barbosa MD at [facility] TONSILLECTOMY TYMPANOSTOMY TUBE PLACEMENT TYMPANOTOMY WITH PERMANENET VENT TUBE INSERTION. TYMPANOTOMY WITH NONPERMANENT TUBE IN LEFT EAR Bilateral 11/02/2017 Performed by Karthikeyan Lopez MD at [facility] SOCIAL HISTORY Social History Tobacco Use Smoking [...] time of final signature. Jennifer Martin MA 03/18/244 documented in this encounter [facility] 03-18-2024 Instructions Linette Gurrola - 03/18/2024 2:30 PM EDT - Patient prefers to have right tube surgically removed. We discussed the chances of perforation remaining from PE tube, which may resolve with paper patch placement. Indications, risks, benefits, and possible complications were discussed. - Continue to initiate ear drops; Ciprodex sent to pharmacy. - Follow-up post op. documented in this encounter [facility] 03-06-2024 History of Present illness Narrative [facility] [address] [place] [address] SUBJECTIVE: Patient ID (2002): Charis Allen is [...] 11/02/2017 Performed by Karthikeyan Lopez MD at [facility] APPENDECTOMY age 15 CRANIOTOMY CHIARI DECOMPRESSION / N/A 01/27/2023 Performed by Ajay Barbosa MD at [facility] CYSTOSCOPY RETROGRADE PYELOGRAM Bilateral 11/30/2022 Performed by Margot Hernandez MD at [facility] DILATION AND CURETTAGE OF UTERUS 07/31/2023 EUSTACHIAN TUBE DILATION Bilateral 11/02/2017 Performed by Karthikeyan Lopez MD at [facility] POSTERIOR LAMINECTOMY CERVICAL SINGLE LEVEL / C1 N/A 01/27/2023 Performed by Ajay Barbosa MD at [facility] TONSILLECTOMY TYMPANOSTOMY TUBE PLACEMENT TYMPANOTOMY WITH PERMANENET VENT TUBE INSERTION. TYMPANOTOMY WITH NONPERMANENT TUBE IN LEFT EAR Bilateral 11/02/2017 Performed by Karthikeyan Lopez MD at [facility] Family History Problem Relation Age of Onset [...] History Narrative Lives alone. 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 of Health Financial Resource Strain: Patient Declined (11/12/2023) Received from [facility] Overall Financial Resource Strain (CARDIA) Difficulty of Paying Living Expenses: Patient declined Food Insecurity: Patient Declined (11/12/2023) Received from [facility] Hunger Vital Sign Worried About Running Out of Food in the Last Year: Patient declined Ran Out of Food in the Last Year: Patient declined Transportation Needs: Patient Declined (11/12/2023) Received from [facility] PRAPARE - Transportation Lack of Transportation (Medical): Patient declined Lack of Transportation (Non-Medical): Patient declined Physical Activity: Patient Declined (11/12/2023) Received from [facility] Exercise Vital Sign Days of Exercise per Week: Patient declined Minutes of Exercise per Session: Patient declined Stress: Not on file Social Connections: Unknown (11/12/2023) Received from [facility] Social Connection and Isolation Panel [NHANES] Frequency of Communication with Friends and Family: Patient declined Frequency of Social Gatherings with Friends and Family: Patient declined Attends Jain Services: Not on file Active Member of Clubs or Organizations: Patient declined Attends Club or Organization Meetings: Patient declined Marital Status: Patient declined Interpersonal Safety: Patient Declined (11/12/2023) Received from [facility] Humiliation, Afraid, Rape, and Kick questionnaire [...] this chart were generated using voice recognition INX[employer] dictation software. Although every effort was made to ensure the accuracy of this automated defensive secondary coach, some errors in defensive secondary coach may have occurred. Tiesha Rai PA-C 03/06/24 1727 [facility]24 Miscellaneous Notes Called and left voice mail to let patient know she needs to reschedule her appointment for 02/05/24 as provider is out ill documented in this encounter [facility] 02-05-2024 Telephone encounter Note Called and left voice mail to let patient know she needs to reschedule her appointment for 02/05/24 as provider is out ill [facility] 12-26-2023 Instructions Olga Thompson MA - 12/26/2023 [...] ensure normal healing. documented in this encounter [facility] 12-26-2023 Note HNO ID: [id number] Author: ÁNGELA DELGADO DPM Service: ? Author [...] the overlying eponychium and underlying nailbed. An [place] anvil was used to cut the offending [...] VERIFIED(optional for EMERG (more content not included)... [facility] 12-26-2023 History of Present illness Narrative [...] the overlying eponychium and underlying nailbed. An [place] anvil was used to cut the offending [...] which included preparing to see the patient, [id number] patient care, completing clinical documentation, obtaining and/or reviewing separately obtained history, performing a medically appropriate examination, counseling and educating the patient/family/caregiver, ordering medications, tests, or procedures and care coordination (not separately reported). I agree with the Chief Complaint, ROS, and Past Histories independently gathered by the clinical client support consultant and the remaining scribed note accurately describes my personal service to the patient. This document has been created with the use of voice recognition technology. It may contain inaccuracies, misspellings, inaccurate syntax or inappropriate word context that escaped review. Ángela Delgado DPM documented in this encounter [facility] 12-19-2023 History of Present illness Narrative [facility] [address] [place] [address] [place] [id number] SUBJECTIVE: Patient ID (2002): Charis Allen is [...] October of 2017, by Dr. Lopez in [place], [place]. The left tube has since extruded, [...] 11/02/2017 Performed by Karthikeyan Lopez MD at [facility] APPENDECTOMY age 15 CRANIOTOMY CHIARI DECOMPRESSION / N/A 01/27/2023 Performed by Ajay Barbosa MD at [facility] CYSTOSCOPY RETROGRADE PYELOGRAM Bilateral 11/30/2022 Performed by Margot Hernandez MD at [facility] DILATION AND CURETTAGE OF UTERUS 07/31/2023 EUSTACHIAN TUBE DILATION Bilateral 11/02/2017 Performed by Karthikeyan Lopez MD at [facility] POSTERIOR LAMINECTOMY CERVICAL SINGLE LEVEL / C1 N/A 01/27/2023 Performed by Ajay Barbosa MD at [facility] TONSILLECTOMY TYMPANOSTOMY TUBE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 investigate or prosecute any alcohol or drug abuse patient.[facility] ColumbusIn the event this information is protected by the Federal Confidentiality of Alcohol and Drug Abuse Patient Records regulations: The Federal rules restrict any use of the information to criminally investigate or prosecute any alcohol or drug abuse patient.[facility]In the event this information is protected by the Federal Confidentiality of Alcohol and Drug Abuse Patient Records regulations: The Federal rules restrict any use of the information to criminally investigate or prosecute any alcohol or drug abuse patient.[facility] ColumbusIn the event this information is protected by the Federal Confidentiality of Alcohol and Drug Abuse Patient Records regulations: The Federal rules restrict any use of the information to criminally investigate or prosecute any alcohol or drug abuse patient.[facility] ColumbusIn the event this information is protected by the Federal Confidentiality of Alcohol and Drug Abuse Patient Records regulations: The Federal rules restrict any use of the information to criminally investigate or prosecute any alcohol or drug abuse patient.[facility] ColumbusIn the event this information is protected by the Federal Confidentiality of Alcohol and Drug Abuse Patient Records regulations: The Federal rules restrict any use of the information to criminally investigate or prosecute any alcohol or drug abuse patient.[facility] ColumbusIn the event this information is protected by the Federal Confidentiality of Alcohol and Drug Abuse Patient Records regulations: The Federal rules restrict any use of the information to criminally investigate or prosecute any alcohol or drug abuse patient.[facility] ColumbusIn the event this information is protected by the Federal Confidentiality of Alcohol and Drug Abuse Patient Records regulations: The Federal rules restrict any use of the information to criminally investigate or prosecute any alcohol or drug abuse patient.[facility] ColumbusIn the event this information is protected by the Federal Confidentiality of Alcohol and Drug Abuse Patient Records regulations: The Federal rules restrict any use of the information to criminally investigate or prosecute any alcohol or drug abuse patient.[facility] ColumbusIn the event this information is protected by the Federal Confidentiality of Alcohol and Drug Abuse Patient Records regulations: The Federal rules restrict any use of the information to criminally investigate or prosecute any alcohol or drug abuse patient.[facility] ColumbusIn the event this information is protected by the Federal Confidentiality of Alcohol and Drug Abuse Patient Records regulations: The Federal rules restrict any use of the information to criminally investigate or prosecute any alcohol or drug abuse patient.[facility] ColumbusIn the event this information is protected by the Federal Confidentiality of Alcohol and Drug Abuse Patient Records regulations: The Federal rules restrict any use of the information to criminally investigate or prosecute any alcohol or drug abuse patient.[facility] ColumbusIn the event this information is protected by the Federal Confidentiality of Alcohol and Drug Abuse Patient Records regulations: The Federal rules restrict any use of the information to criminally investigate or prosecute any alcohol or drug abuse patient.[facility] ColumbusIn the event this information is protected by the Federal Confidentiality of Alcohol and Drug Abuse Patient Records regulations: The Federal rules restrict any use of the information to criminally investigate or prosecute any alcohol or drug abuse patient.[facility]In the event this information is protected by the Federal Confidentiality of Alcohol and Drug Abuse Patient Records regulations: The Federal rules restrict any use of the information to criminally investigate or prosecute any alcohol or drug abuse patient.[facility] ColumbusIn the event this information is protected by the Federal Confidentiality of Alcohol and Drug Abuse Patient Records regulations: The Federal rules restrict any use of the information to criminally investigate or prosecute any alcohol or drug abuse patient.[facility] ColumbusIn the event this information is protected by the Federal Confidentiality of Alcohol and Drug Abuse Patient Records regulations: The Federal rules restrict any use of the information to criminally investigate or prosecute any alcohol or drug abuse patient.[facility] Reason for Visit (unrecogniz ed section and [...] Referred By Rupert garcía Referred To Contact Plastic Surgery Diagnoses Mastodynia Macromastia Procedures CONSULT TO PLASTIC SURGERY OFFICE/OUTPATIENT NEW HIGH MDM 60-74 MINUTES Dianna Villa PA-C [address] [place] [address] Referral ID Status Reason Start Date Expiration Date V isits Requested Visits Authorized [id number] Closed PCP Requested Referral 10/13/2022 10/13/2023 1 [...] garcía Referred To Contact [facility] Diagnoses Cerebellar tonsillar ectopia (HCC) Procedures MRI BRAIN WO/W IVCON MRI BRAIN BRAIN STEM W/O W/CONTRAST MATERIAL Samples, MD Sreekanth [address] [id number] [place] [address] Referral ID Status Reason Start Date Expiration Date V isits Requested Visits Authorized [id number] Closed Auto-Generate d Referral 2022 11/17/2023 1 1 Specialty Diagnoses / Procedures Referred By Rupert garcía Referred To Contact [facility] Diagnoses Thunderclap headache Procedures MRI BRAIN WO/W IVCON MRI BRAIN BRAIN STEM W/O W/CONTRAST MATERIAL Samples, MD Sreekanth [address] [place] [address] [place] [address] Referral ID Status Reason Start Date Expiration Date V isits Requested Visits Authorized [id number] Closed Auto-Generate d Referral 12/22/2021 10/08/2022 1 [...] Comments Sore Throat Chronic Reason Comments Post-op Reason Comments Vaginal Bleeding Pt states that she i s 5 weeks and started spotting around 7 pm. Pt states that she is not spotting currently but is now having sharp abdominal and chest pain. Reason Comments Follow-up 4-6 week follow up Reason Onset Date Comments Refill Request 01/07/2025 Reason Comments Dizziness [place] light headed at work. Was told her BS was low and her bp was high. Hx of elevated bp. Reason Onset Date Comments Med Refill 01/15/2025 Reason Onset Date Comments Med Refill 02/15/2025 Reason Comments Med Refill Care Teams (unrecognized sec tion and content) Tack Coverer Relationship Specialty Start Date End Date Kerry Jain RD [address] [place] [address] [phone] Nutrition 04/04/23 Tack Coverer Relationship Specialty Start Date End Date Kerry Jain RD [address] [place] [phone] Nutrition 04/04/23 Tack Coverer Relationship Specialty Start Date End Date Kerry Jain RD [address] [place] [phone] Nutrition 04/04/23 Tack Coverer Relationship Specialty Start Date End Date Kerry Jain RD [address] [place] [phone] Nutrition 04/04/23 Tack Coverer Relationship Specialty Start Date End Date Kerry Jain RD [address] [place] [phone] Nutrition 04/04/23 Tack Coverer Relationship Specialty Start Date End Date Kerry Jain RD [address] [place] [phone] Nutrition 04/04/23 Team Status: Active Member Role Status Dates Katie Thapa DO Primary Care Provider Active Team Status: Inactive Member Role Status Dates Katie Thapa DO Primary Care Provider Active Jona Vann MD Attending Provider Active Tack Coverer Relationship Specialty Start Date End Date Kerry Jain RD [address] [place] [address] [phone] Nutrition 04/04/23 Team Status: Inactive Member Role [...] Provider Active St art: November 08, 2023 Tack Coverer Relationship Specialty Start Date End Date SteffanieKerry mackIVET [address] [place], [place] [phone] Nutrition 04/04/23 Tack Coverer Relationship Specialty Start Date End Date Cristobal KerryIVET [address] [place], [place] [phone] Nutrition 04/04/23 Team Status: Inactive Member Role Status Dates Katie Thapa DO Primary Care Provider Active Start: June 27, 2024 End: June 28, 2024 Yung Nichols Jr, MD Emergency Provider Active Start: June 27, 2024 End: June 28, 2024 Tack Coverer Relationship Specialty Start Date End Date Anil Thapa DO [address] [place] [address] PCP - General Family Medicine 02/14/23 Tack Coverer Relationship Specialty Start Date End Date Anil Thapa DO [address] [place] [address] PCP - General Family Medicine 02/14/23 Tack Coverer Relationship Specialty Start Date End Date Anil Thapa DO [address] [place] [address] PCP - General Family Medicine 02/14/23 Tack Coverer Relationship Specialty Start Date End Date Anil Thapa DO [address] [place] [address] PCP - General Family Medicine 02/14/23 Tack Coverer Relationship Specialty Start Date End Date Zara-JaxonKerry collins, IVET [address] [place] [address] [facility] 04/04/23 Tack Coverer Relationship Specialty Start Date End Date Anil Thapa DO [address] [place] [address] PCP - General Family Medicine 02/14/23 Tack Coverer Relationship Specialty Start Date End Date Ainl Thapa DO [address] [place] [address] PCP - General Family Medicine 02/14/23 Tack Coverer Relationship Specialty Start Date End Date Anil Thapa Jr., DO PCP - General Family Medicine 09/23/23 Tack Coverer Relationship Specialty Start Date End Date Anil Thapa DO [address] [place] [address] PCP - General Family Medicine 02/14/23 Tack Coverer Relationship Specialty Start Date End Date Anil Thapa DO [address] [place] [address] PCP - General Family Medicine 02/14/23 Tack Coverer Relationship Specialty Start Date End Date Anil Thapa DO [address] [place] [address] PCP - General Family Medicine 10/01/23 Tack Coverer Relationship Specialty Start Date End Date Anil Thapa Jr., DO [address] [place] [address] PCP - General Family Medicine 09/23/23 Tack Coverer Relationship Specialty Start Date End Date Anil Thapa DO [address] [place] [address] PCP - General Family Medicine 02/14/23 Tack Coverer Relationship Specialty Start Date End Date Anil Thapa Jr., DO [address] [place] [address] PCP - General Family Medicine 09/23/23 Tack Coverer Relationship Specialty Start Date End Date Anil Thapa Jr., DO [address] [place] [address] PCP - General Family Medicine 09/23/23 Tack Coverer Relationship Specialty Start Date End Date Anil Thapa Jr., DO [address] [place] [address] PCP - General Family Medicine 09/23/23 Tack Coverer Relationship Specialty Start Date End Date Anil Thapa Jr., DO [address] [place] [address] PCP - General Family Medicine 09/23/23 Tack Coverer Relationship Specialty Start Date End Date Anil Thapa Jr., DO PCP - General Family Medicine 09/23/23 Tack Coverer Relationship Specialty Start Date End Date Anil Thapa Jr., DO PCP - General Family Medicine 09/23/23 Tack Coverer Relationship Specialty Start Date End Date Anil Thapa Jr., DO PCP - General Family Medicine 09/23/23 Tack Coverer Relationship Specialty Start Date End Date Anil Thapa Jr., DO PCP - General Family Medicine 09/23/23 Tack Coverer Relationship Specialty Start Date End Date Anil Thapa Jr., DO PCP - General Family Medicine 09/23/23 Tack Coverer Relationship Specialty Start Date End Date Anil Thapa Jr., DO PCP - General Family Medicine 09/23/23 Tack Coverer Relationship Specialty Start Date End Date Anil Thapa Jr., PCP - General Family Medicine 09/23/23 Tack Coverer Relationship Specialty Start Date End Date Anil Thapa DO [address] [place] [address] PCP - General Family Medicine 10/01/23 Tack Coverer Relationship Specialty Start Date End Date Kerry Butler RD [address] [place] [address] Nutrition 04/04/23 Tack Coverer Relationship Specialty Start Date End Date Kerry Butler RD [address] [phone] Nutrition 04/04/23 Tack Coverer Relationship Specialty Start Date End Date Anil Thapa DO [address] [place] [address] PCP - General Family Medicine 10/01/23 Tack Coverer Relationship Specialty Start Date End Date Anil Thapa, [address] [facility] [address] [place] [address] PCP - General Family Medicine 02/14/23 Team Status: Inactive Member Role Status Dates Katie Thapa DO Primary Care Provider Active Start: February 18, 2025 End: February 18, 2025 Yaritza Bauer APRN Emergency Provider Active Start: February 18, 2025 End: February 18, 2025 Tack Coverer Relationship Specialty Start Date End Date Anil Thapa DO [address] [facility] [address] [place] [address] PCP - General Family Medicine 10/01/23 Tack Coverer Relationship Specialty Start Date End Date Anil Thapa Jr., DO [address] [facility] [address] [place] [address] PCP - General Family Medicine 02/26/25 Goals (unrecognized section and content) Goals may be documented in a n alternate section Ordered Prescriptions (unrec ognized section and content) Prescription Sig Dispensed Refills Start Date End Da te ondansetron (ZOFRAN-ODT) 4 MG disintegrating tablet Take 1 tablet by mouth 3 times daily as needed for Nausea or Vomiting 21 tablet 11/16/2024 Prescription Sig Dispense Quantity Refills Last Filled Start Date End Date meclizine (ANTIVERT) 25 MG tablet Take 1 tablet by mouth 3 times daily as needed for Dizziness 30 tablet 01/11/2025 Scheduled Active and Recently Administ ered Medications [...] 0153 (Given - Provid er: Francheska Grimm) Scheduled Medication Order 01/09/2025 01/10/2025 01/11/2025 meclizine (ANTIVERT) tablet 25 mg (COMPLETED) 25 mg, Oral, ONCE, 1 dose, On 01/11/25 at 1845 1846 (Given - Provid er: George Chand RN) meclizine (ANTIVERT) tablet 25 mg (COMPLETED) 25 mg, Oral, ONCE, 1 dose, On 01/11/25 at 1930, Send home with pt 1936 (Given - Provid er: George Chand RN - Comment: sent home) FOR RECORDS PERTAINING TO PATIENTS WHO ARE [...] BE BASED ON THE PRIMARY CLINICAL RECORDS. [facility]. provides no warranty or guarantee of the accuracy or completeness of information in this document.
--- NOTE | 2025-04-17 00:37 | ED_ITS ---
HPI - General Chief complaint: OB/Uterine Contractions Stated complaint: PELVIC PAIN Time Seen by Provider: 04/17/25 00:23 Source: patient Mode of arrival: walk-in Limitations: no limitations History of Present Illness HPI Narrative: [id number] states all miscarriages. LMP 12 days ago. Believes she is based on home preg test. Complaining of left flank pain. Denies urinary symptoms or vaginal bleeding Related Data Home Medications ?Medication ?Instructions ?Recorded ?Confirmed No Known Home Medications 04/16/250 07/03 Allergies Allergy/AdvReac Type Severity Reaction Status Date / Time doxycycline Allergy Unknown Verified 04/16/25 23:53 Penicillins Allergy Unknown Verified 04/16/25 23:53 Review of Systems ROS Status of ROS 10 or more systems reviewed and unremark able except as noted in history and below PFSH PFSH Social History Little interest or pleasure in doing things: not at all Feeling down, depressed, or hopeless: not at all Exam Constitutional Vital Signs, click to edit/add: Last Vital Signs Temp 98.9 F 04/16/25 23:46 Pulse 80 04/16/25 23:46 Resp 16 04/16/25 23:46 BP 107/71 04/16/25 23:46 Pulse Ox 99 04/16/25 23:46 Common normals: no apparent distress, average body habitus, oriented x3, no limitations, healthy appearing, alert and well nourished [facility] Common normals: normocephalic and head/scalp atraumatic Eye Common normals: EOMs intact bilaterally and conjunctivae normal Respiratory Common normals: normal respiratory effort, no retractions, no use of accessory muscles and clear to auscultation bilaterally Cardio Common normals: regular rate, regular rhythm, S1 normal heart sound and S2 normal heart sound GI Other: left CVA and mild LLQ tenderness. No guarding Extremity Common normals: normal to inspection and full ROM Neuro Common normals: oriented x3, CN's II-XII intact bilaterally, moves all extremities and no focal motor deficits Psych Appearance: grossly normal Course Vital Signs Vital signs: Vital Signs Temperature 98.9 F 04/16/25 23:46 Pulse Rate 80 04/16/25 23:46 Respiratory Rate 16 04/16/25 23:46 Blood Pressure 107/71 04/16/25 23:46 Pulse Oximetry 99 04/16/25 23:46 Temperature 98.9 F 04/16/25 23:46 Pulse Rate 80 04/16/25 23:46 Respiratory Rate 16 04/16/25 23:46 Blood Pressure 107/71 04/16/25 23:46 Pulse Oximetry 99 04/16/25 23:46 MDM - OB/Uterine Contractions MDM Narrative Medical decision making narrative: patient presents concerned she may be . States positive home test. LMP 12d ago. Mild left flank tenderness. Quant HCG neg. UA positive patient informed she is not and of the plan to treat as a UTI. She is to return if pain increases Lab Data Labs: Lab Results 04/17/25 04/17/25 Range/Units 01:15 01:25 WBC 7.8 (4.0-11.0) 10^3/uL RBC 4.39 (4.20-5.40) 10^6/uL Hgb 13.6 (12.0-16.0) g/dL Hct 40.6 (36.0-48.0) % MCV 92.5 (81.0-99.0) fL MCH 31.0 (26.7-34.0) pg MCHC 33.5 (29.9-35.2) g/dL RDW 12.5 (11.0-15.0) % Plt Count 206 (150-450) 10^3/uL MPV 10.1 (9.5-13.5) fL Neut % (Auto) 63.1 (43.0-75.0) % Lymph % (Auto) 26.0 (20.5-60.0) % [place] % (Auto) 8.5 (1.7-12.0) % Eos % (Auto) 1.9 (0.9-7.0) % Baso % (Auto) 0.5 (0.2-2.0) % Neut # (Auto) 4.9 (1.4-6.5) 10^3/uL Lymph # (Auto) 2.0 (1.2-3.8) 10^3/uL [place] # (Auto) 0.7 (0.3-0.8) 10^3/uL Eos # (Auto) 0.2 (0.0-0.7) 10^3/uL Baso # (Auto) 0.0 (0.0-0.1) 10^3/uL Abs Immat Gran (auto) 0.00 (0.00-0.03) 10^3/uL Imm/Tot Granulo (auto) 0.0 (0.0-0.5) % Sodium 141 (136-145) mmol/L Potassium 3.9 (3.5-5.1) mmol/L Chloride 104 (98-107) mmol/L Carbon Dioxide 32.0 (21.0-32.0) mmol/L Anion Gap 8.9 BUN 21.0 H (7.0-18.0) mg/dL Creatinine 0.80 (0.55-1.02) mg/dL Est GFR ( Amer) >60 (>=60 mL/min/1.73m^2) Est GFR (Non-Af Amer) >60 (>=60 mL/min/1.73m^2) BUN/Creatinine Ratio 26.3 Glucose 95 (74-106) mg/dL Calcium 8.8 (8.5-10.1) mg/dL HCG, Quant <1 mIU/mL Urine Color Lt. yellow (YELLOW) Urine Clarity Clear (CLEAR) Urine pH 7.0 (5.0-9.0) Ur Specific Fisher 1.015 (1.005-1.025) Urine Protein Negative (NEG/TRACE) mg/dL Urine Glucose (UA) Negative (NEGATIVE) mg/dL Urine Ketones Negative (NEGATIVE) mg/dL Urine Occult Blood Negative (NEGATIVE) Urine Nitrite Negative (NEGATIVE) Urine Bilirubin Negative (NEGATIVE) Urine Urobilinogen 0.2 (0.2-1.0) EU/dL Ur Leukocyte Esterase Negative (NEGATIVE) Urine RBC 0-2 (0-2) #/HPF Urine WBC 5-10 A (NONE SEEN) #/HPF Ur Squamous Epith Cells Few A (NONE/RARE) #/LPF Urine Crystals None seen (None Seen) #/HPF Urine Bacteria Small A (NONE SEEN) #/HPF Urine Casts None seen (NONE SEEN) #/LPF Urine Starch Rare Urine Mucus None seen (NONE SEEN) Ur Culture Indicated? Yes-[facility] [place] Discharge Plan Discharge Chief Complaint: OB/Uterine Contractions Clinical Impression: UTI (urinary tract infection) Patient Disposition: Home, Self-Care Prescriptions / Home Meds: No Action No Known Home Medications Print Language: Bahraini Instructions: Urinary Tract Infection in Women (ED) Additional Instructions: follow up with your doctor in next 2-3 days for recheck. return if pain increases Referrals: Diane ROJAS [Primary Care Provider, Family Practice] - 1 week
--- NOTE | 2025-04-17 00:56 | PC.NURSE ---
Pt presents to ER for what she states is lower quadrant abdominal pain that has been going on Since Monday Pt states she took a few at home tests which showed very faint positive lines Pt states it hurts to pee Pt states she last had a period 11-12 days ago Pt states her first she had a DNC Her second was in February and she miscarried at 5-6 weeks Pt and her friend at bedside then state I only want to know how far I am, can you draw my blood
[2025-04-17 01:34] LABS: Glucose Urine UA NEGATIVE (NEGATIVE)
[2025-04-17 01:34] LABS: Hematocrit 40.6 % (36.0-48.0); Hemoglobin 13.6 g/dL (12.0-16.0); Immature Granulocytes Abs Auto 0.00 10^3/uL (0.00-0.03); Immature Granulocytes Pct Auto 0.0 % (0.0-0.5); Lymphocytes Absolute Auto 2.0 10^3/uL (1.2-3.8); Mean Corpuscular HGB Conc 33.5 g/dL (29.9-35.2); Mean Corpuscular Hemoglobin 31.0 pg (26.7-34.0); Mean Corpuscular Volume 92.5 fL (81.0-99.0); Platelet Count 206 10^3/uL (150-450); Red Blood Count 4.39 10^6/uL (4.20-5.40); White Blood Count 7.8 10^3/uL (4.0-11.0)
[2025-04-17 01:44] LABS: Cast Seen? NONE SEEN #/LPF (NONE SEEN); Crystals Seen? None Seen #/HPF (None Seen); Starch Urine RARE; Urine Culture Indicated YES-FRMC
[2025-04-17 02:00] LABS: Anion Gap 8.9; Blood Urea Nitrogen 21.0 mg/dL (7.0-18.0); Calcium 8.8 mg/dL (8.5-10.1); Carbon Dioxide 32.0 mmol/L (21.0-32.0); Chloride 104 mmol/L (98-107); Estimated GFR (African America >60 (>=60 mL/min/1.73m^2); Estimated GFR (Non-African Ame >60 (>=60 mL/min/1.73m^2); Glucose 95 mg/dL (74-106); Potassium 3.9 mmol/L (3.5-5.1); Sodium 141 mmol/L (136-145)
--- NOTE | 2025-04-17 02:39 | PC.NURSE ---
i gave this patient verbal and written discharge orders along with 1 Rx, and this patient voices yes to understanding these. at time of discharge this patient voices no concerns, needs and shows no signs of distress
[2025-04-18 22:07] LABS: Neisseria gonorrhoeae, NAA Negative (Negative)
== END 2025-04-17 02:38 | disposition home or self-care (01) ==
PROVIDERS: Emergency Provider Internal Medicine; PCP Family Medicine
DX: N39.0 Urinary tract infection, site not specified (principal)
CPT/HCPCS: 36415; 80048; 81001; 84702; 85025; 87086; 87210; 87491; 87591; 99285

== ENCOUNTER 2025-07-03 09:41 | Outpatient (RCR) | payer MEDICAID, SELFPAY ==
--- OUTSIDE RECORDS SUMMARY | 2025-07-03 09:50 | XMS_ITS | CCD ---
Author Organization [facility] CliniSymd Care Team Providers Care Health Analyst Name Role Phone SREEKANTH JOHNSON Unavailable Unavailable [...] Unavailable ALANIS, DR Diane CASTILLO Attending Unavailable KAFTDENISSE, DR Diane CASTILLO Consulting Unavailable KAFTAN, DR Diane CASTILLO Primary Care Unavailable KAFTAN, DR Diane CASTILLO Admitting Unavailable PAY ., DR SINGH Attending Unavailable PAY ., DR SINGH Consulting Unavailable PAY ., DR SINGH Admitting Unavailable ALANIS, DR Diane CASTILLO Primary Care Unavailable KAFTDENISSE, DR Diane CASTILLO Attending Unavailable KAFTDENISSE, DR Diane CASTILLO Consulting Unavailable KAMAGUI, DR Diane CASTILLO Primary Care Unavailable KAMAGUI, DR Diane CASTILLO Admitting Unavailable MISC, DR PATTEN Attending Unavailable MISC, DR PATTEN Consulting Unavailable MISC, DR PATTEN Admitting Unavailable KAMAGUI, DR Diane CASTILLO Primary Care Unavailable MISC, DR PATTEN Admitting Unavailable MISC, DR PATTEN Attending Unavailable MISC, DR PTATEN Consulting Unavailable ALANIS, DR Diane CASTILLO Primary Care Unavailable Crtalic IVETKerry Unavailable Arti Barahona Unavailable DO Katie Thapa Primary Care Provider MD Jona Vann Attending Provider DO Katie Thapa Primary Care Provider [phone] MD Jona Vann Attending Provider SalasPatricia Unavailable DO Katie Thapa Primary Care Provider MD Jona Vann Attending Provider [phone] DO Pérez Barcenas M Attending Provider Pérez Barcenas Unavailable DO Katie Thapa Primary Care Provider MD Yung Nichols Jr Emergency Provider Unavailable Primary Care Provider Unavailko e Anil Thapa DO Primary Care Provider ÁNGELA DELGADO Attending Unavailable ÁNGELA DELGADO Attending Unavailable SELF Referring Unavailable ÁNGELA DELGADO Attending Unavailable MARY ANN LEVIN Attending Unavailable Crtalic-JaxonKerry collins RD Unavailable Alanis Sky DO, George R Primary Care Provider CADEN THOMAS Attending Unavailable ANIL THAPA JR [...] VERDE Admitting Unavailable MICH VERDE Attending Unavailable ANIL THAPA JR Primary Care Unavailable MICH VERDE Referring Unavailable ANIL THAPA JR Primary Care Unavailable ANLI THAPA JR Referring Unavailable ANIL THAPA JR Primary Care Unavailable VU, OSBALDO-CATIE Admitting Unavailable VU, OSBALDO-CATIE Attending Unavailable ANIL THAPA JR Primary Care Unavailable Anil Thapa DO Primary Care Provider Alanis Sky DO, George R Primary Care Provider U navailable Crtalic-Jaxon RDKerry Unavailable Katie Thapa DO Primary Care Provider Yaritza Bauer APRN Emergency Provider [phone] ANIL THAPA Primary Care Unavailable MILTON GARCIA Attending Unavailable ANIL THAPA Primary Care Unavailable AKIKO ACOSTA Attending Unavailable ANIL THAPA Primary Care Unavailable ROHIT ROB Attending Unavailable JONA VANN Referring Unavailable ANIL THAPA Primary Care Unavailable MICH VERDE Attending Unavailable KAFTAN JR, ANIL R Referring Unavailable KAFTAN JR, ANIL R Primary Care Unavailable LUIS ENRIQUE JENNINGS Attending Unavailable KAMARENAN JR, ANIL R Referring [...] Primary Care Unavailable TIESHA RAI Attending Unavailable DIAAN JR, ANIL R Referring Unavailable KAFTAN JR, ANIL R Primary Care Unavailable BONITAFTAN JR, ANIL R Referring Unavailable KAFTAN JR, ANIL R Primary Care Unavailable KAFTAN JR, ANIL R Primary Care Unavailable FERNANDA CHRISTY Attending Unavailable KAMARENAN JR, ANIL R Primary Care Unavailable DANIELE EDMOND Admitting Unavailable NOLA SESAY Attending Unavailable Alanis Sky DO, George R Primary Care Provider Chris White MD Attending Provider Yung Nichols Jr Admitting Unavailable Yung Nichols Jr Attending Unavailable Katie Thapa Primary Care Unavailable Yaritza Bauer Admitting Unavailable Yaritza Bauer Attending Unavailable Katie Thapa Primary Care Unavailable Katie Thapa Primary Care Unavailable Chris White Admitting Unavailable Chris White Attending Unavailable JONA VANN Attending Unavailable HARMONY GERMAN Attending Unavailable JONA VANN Attending Unavailable ANIL THAPA Attending Unavailable ANIL THAPA Attending Unavailable JONA VANN Attending Unavailable Allergies Allergy Classification Reported Allergen(s) Allergy Type Date of Onset Reaction(s) Facility (1 source) lactose Drug Allergy 02-15-20 17 [facility] (20 sources) Cyproheptadine; Translations: [CYPROHEPTADINE ] Drug Allergy 08-02-20 13 Diarrhea, Other: See Comments, Other (See Comments) [facility] (20 sources) Seasonal allergy; Translations: [SEASONAL ALLERGIES] Propensity to adverse reactions 12-25-19 10 [facility] (20 sources) Doxycycline; Translations: [DOXYCYCLINE] Drug Allergy 11-29-19 22 Other: See Comments, rash, Dizziness, Dizziness or Vertigo, Other (See Comments) [facility] Work Phone: (20 sources) Penicillin G; Translations: [PENICILLIN G SODIUM] Drug Allergy 11-29-19 22 Rash [facility] Work Phone: (20 sources) Penicillins; Translations: [Penicillins] Allergy to substance 08-03-20 23 Unknown Reaction, Unknown Reaction, rash [facility] (20 sources) Azithromycin; Translations: [azithromycin] Drug Allergy 08-17-20 23 Unknown Reaction [facility] Comment on above: Tachycardia and rash (20 sources) oxyCODONE; Translations: [oxycodone] Drug Allergy 08-17-20 23 Palpitations [facility] (5 sources) Penicillin Drug Allergy rash [employer] Other (20 sources) Penicillin G sodium Allergy to substance 11-29-19 Rash [facility] (20 sources) Levonorgestrel- Ethinyl Estrad; Translations: [LEVONORGESTREL -ETHINYL ESTRAD] Drug Intolerance 12-25-19 10 Other (See Comments) [facility] (14 sources) Pollen; Translations: [POLLEN EXTRACTS] Propensity to adverse reactions to drug 08-20-20 24 Other (See Comments) [facility] (1 source) Doxycycline Drug Allergy 02-19-20 25 [facility] Repository Medications Current Medications Medication Drug Class(es) [...] / HYDROcodone bitartrate 5 mg oral tablet (4 sources) Opioid Agonist Start: 08-27-2024 End: 08-30-2024 [...] topical solution (20 sources) Lincosamide Antibacterial Start: 06-13-2025 clindamycin (Cleocin T) 1 % external solution Indications: Acne vulgaris Apply topically in the morning and before bedtime. APPLY TO AFFECTED AREAS ON FACE ONCE A DAY. 30 mL 3 06/13/2025 Active Start: 06-13-2025 clindamycin (C leocin T) 1 % external solution Indications: Acne vulgaris Apply topically in the morning and before bedtime. APPLY TO AFFECTED AREAS ON FACE ONCE A DAY. 30 mL 3 06/13/2025 Active Start: 06-03-2025 End: 06-13-2025 clindamycin (Cleocin T) 1 % external solution Indications: Acne vulgaris Apply topically in the morning and before bedtime. APPLY TO AFFECTED AREAS ON FACE ONCE A DAY. 30 mL 06/03/2025 06/13/2025 Discontinued (Reorder) Start: 03-19-2025 clindamycin (C LEOCIN) 1 % external solution Indications: Acne vulgaris [...] face once daily. Condoms - Male misc (11 sources) Start: 10-29-2024 End: 06-13-2025 Condoms - Male misc Indications: Acute vaginitis 1 Units Daily 10 Units 2 10/29/2024 06/13/2025 Discontinued Start: 10-29-2024 Condoms - Male misc Indications: [...] a day for 14 day(s) Jun, Active meclofenamate 100 mg oral capsule (7 sources) Start: meclofenamate (Meclomen) 100 MG capsule Indications: Chiari malformation type I (HCC) One tablet tid on menses No hormones due to Chiari malformation 120 capsule 2 06/10/2025 Active 24 hr methylphenidate hydrochloride 18 mg extended release oral tablet (20 sources) Central Nervous System Stimulant Start: 025 take 1 tablet by mouth in the morning methylphenidate ER (Concerta) 18 MG CR tablet Indications: Attention deficit hyperactivity disorder (ADHD), combined type Take 1 tablet (18 mg) by mouth in the morning. Do not crush, chew, or split. 30 tablet 06/13/2025 Active Start: 06-13-2025 take 1 tablet by tucker th in the morning methylphenidate ER (Concerta) 18 MG CR tablet Indications: Attention deficit hyperactivity disorder (ADHD), combined type Take 1 tablet (18 mg) by mouth in the morning. Do not crush, chew, or split. 30 tablet 06/13/2025 Active Start: 02-17-2025 End: 06-13-2025 take 1 tablet by mouth in the morning methylphenidate ER (Concerta) 18 MG CR tablet Indications: Attention deficit hyperactivity disorder (ADHD), combined type Take 1 tablet (18 mg) by mouth in the morning. Do not crush, chew, or split. 30 tablet 02/17/2025 06/13/2025 Discontinued (Reorder) Start: 05-17-2024 End: 02-15-2025 take 1 tablet by mouth in the morning methylphenidate ER (Concerta) 18 MG CR tablet Indications: Attention deficit hyperactivity disorder (ADHD), combined type Take 1 tablet (18 mg) by mouth in the morning. Do not crush, chew, or split. 30 tablet 02/17/2025 Active Start: 12-19-2023 End: 01-18-2024 take 1 [...] mg total) before bedtime. 08/17/2024 08/24/2024 Active nitrofurantoin, macrocrystals 25 mg / nitrofurantoin, monohydrate 75 mg oral capsule (1 source) Nitrofuran Antibacterial Start : 06-13 End: 06-20 take 1 capsule by mouth in the morning nitrofurantoin, macrocrystal-monohydrat e, (Macrobid) 100 MG capsule Indications: Urinary tract infection without hematuria, site unspecified Take 1 capsule (100 mg) by mouth in the morning and 1 capsule (100 mg) before bedtime. Do all this for 7 days. 14 capsule 06/13/2025 06/20/2025 Active pimecrolimus 10 mg/ml topical cream (20 sources) Calcineurin Inhibitor Immunosuppressant Start : 09-12 pimecrolimus (ELIDEL) 1 % cream Indications: Other eczema APPLY 2 TIMES DAILY TO FACIAL AREAS NEEDED FOR RASH/ITCHING 30 g 3 09/12/2022 Active Comment on above: APPLY 2 TIMES DAILY TO FACIAL AREAS NEEDED FOR RASH/ITCHING sulfacetamide sodium 100 mg/ml / sulfur 50 mg/ml topical lotion (10 sources) Sulfonamide Antibacterial Start : 08-16 Sulfacetamide Sodium-Sulfur 10-5 % (w/w) lotn Indications: Acne vulgaris Apply to all acne-prone areas twice daily 60 g 5 08/16/2023 Active Comment on above: Apply to all acne-pr one areas twice daily sulfamethoxazole 800 mg / trimethoprim 160 mg oral tablet (1 source) Dihydrofolate Reductase Inhibitor Antibacterial, Sulfonamide Antimicrobial Start : 03-07 End: 03-14 take 1 tablet by mouth once in the morning sulfamethoxazole-trimet hoprim (BACTRIM DS) 800-160 mg per tablet Take 1 tablet by mouth in the morning and 1 tablet before bedtime. Do all this for 7 days. 14 tablet 03/07/2024 03/14/2024 Active terbinafine 250 mg oral tablet (3 sources) Allylamine Antifungal Start : 11-21 End: 02-18 take 1 tablet by mouth once daily terbinafine HCl (LAMISIL) 250 mg tablet Take 1 tablet by mouth once daily. 90 tablet 0 11/21/2023 02/19/2024 Active Comment on above: Take 1 tablet by tucker once daily. terconazole 4 mg/ml vaginal cream (3 sources) Azole Antifungal Start : 10-23 End: 10-30 terconazole (Terazol 7) 0.4 % vaginal cream Indications: Vulvovaginal Candidiasis Insert 1 applicator into the vagina at bedtime for 7 days 45 g 2 10/23/2024 10/30/2024 Active triamcinolone acetonide 1 mg/ml topical cream (13 sources) Corticosteroid Start : 10-23 End: 06-13 triamcinolone (Kenalog) 0.1 % cream Indications: Vaginal burning Apply topically 2 (two) times a day 30 g 2 10/23/2024 06/13/2025 Discontinued Completed/Discontinued Medications Medication Drug Class(es) Dates Sig (Normalized) Sig (Original) acetaminophen 325 mg / butalbital 50 mg / caffeine 40 mg oral capsule (7 sources) Barbiturate, Central Nervous System Stimulant, Methylxanthine [...] Jun, Not-Taking/PRN azithromycin 500 mg oral tablet (7 sources) Macrolide Antimicrobial Start: 08-03-2023 End: 08-17-2023 take 1 tablet by mouth once daily Azithromycin (Zithromax) 500 mg tablet Discontinued 500 MG PO Daily 04 14August 03, 2023 12:00am August 17, 2023 4:57pm cephalexin 500 mg oral capsule (17 sources) Cephalosporin Antibacterial Start: 06-28-2024 End: 02-18-2025 [...] 1 tablet by tucker th once daily. 2 ml droperidol 2.5 mg/ml injection (1 source) Dopamine-2 Receptor Antagonist Start: End: 02-08-2 025 1.25 mg, IntraVENous, ONCE, 1 dose, On [...] tablet by tucker th once daily. ibuprofen 800 mg oral tablet (19 sources) Nonsteroidal Anti-inflammatory Drug Start: End: take 1 tablet by mouth every eight hours as needed for pain and pain ibuprofen 800 MG tablet Take 800 mg by mouth every 8 (eight) hours if needed for mild pain or moderate pain 02/27/2025 06/10/2025 Discontinued Start: 06-28-2024 End: 02-18-2025 take 1 tablet by mouth every eight [...] WEEKS methylergonovine maleate 0.2 mg oral tablet (7 sources) Ergot Derivative Start: 2022 End: 2022 [...] Comment on above: Take 1 capsule by mo cox monett twice daily. miSOPROStol 0.2 mg oral tablet (7 sources) Prostaglandin E1 Analog Start: 3 End: [...] on above: Take 1 tablet by tucker as directed. at the onset of headache; if headache returns or does not fully resolve, the dose may be repeated after 4 hours; do not exceed five(5) mg in 24 hours. ondansetron 4 mg disintegrating oral tablet (20 sources) Serotonin-3 Receptor Antagonist Start: 11-16-2024 End: 06-10-2025 take 1 tablet by mouth every eight hours as needed for nausea and vomiting ondansetron ODT (Zofran-ODT) 4 MG disintegrating tablet Take 4 mg by mouth every 8 (eight) hours if needed for nausea or vomiting 11/16/2024 06/10/2025 Discontinued Start: 11-16-2024 End: 12-01-2024 take 1 tablet [...] TABLET IN MOUTH EVERY 4 HOURS NEEDED 50 ml sodium chloride 9 mg/ml injection [...] on above: Take 2 tablets by mo cox monett once daily. Take 1 tablet by tucker once daily. tiZANidine 4 mg oral tablet (20 sources) Central alpha-2 Adrenergic Agonist Start: 3 End: take 1 tablet by mouth every [...] month Toradol 30 mg/ml (7 sources) Start: Toradol 30 mg/ml Jun, 30 mg traMADol hydrochloride 100 mg oral tablet (13 sources) Opioid Agonist Start: End: 4 take 1 tablet by mouth every six hours as needed for pain Tramadol 100 mg tablet Discontinued 100 MG PO Q6H as needed for pain 14 3 August 17, 2023 1:00am June 27, 2024 [...] Da te Episodic/Chronic Acute and chronic tonsillitis (16 sources) Hypertrophy of adenoids; Translations: [Hypertrophy of [...] of occurrence of the external cause; Translations: [[facility]] Onset: 06-13-2017 External Injury - Unspecified (1 source) Activity, [employer] ([place]) (court); Translations: [ACTIVITY, VOLLEYBALL ([employer]) (COURT)] Onset: 06-13-2017 Headache; including migraine (20 sources) Primary exertional headache; Translations: [Headache] Onset: 06-14-2012 Resolved: 07-31-2015 Episodic Comment on above: Problem List clean-u p per request of Phys. EHR Cmte Hemorrhage during ; abruptio placenta; placenta previa (2 sources) Threatened miscarriage in first trimester; Translations: [Threatened ] Onset: 11-30-2024 12-01-2024 Episodic Inflammatory diseases of female pelvic organs (3 sources) Acute vaginitis; Translations: [Acute vaginitis] 10-23-2024 Episodic Menopausal disorders (2 sources) Menorrhagia; Translations: [Excessive bleeding in the premenopausal period] 06-10-2025 Chronic Menstrual disorders (20 sources) Menometrorrhagia; Translations: [Excessive and frequent menstruation with irregular cycle] Onset: 06-29-2023 06-29-2023 Chronic Mood disorders (20 sources) Depressive disorder; Translations: [Depression] Onset: 06-29-2023 06-29-2023 Chronic Nervous system congenital anomalies (4 sources) Cerebellar disorder; 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 Nonmalignant breast conditions (7 sources) Hypertrophy of breast; Translations: [Large breast] Onset: 10-13-2022 Episodic Other aftercare (1 source) Other care home (current) drug therapy; Translations: [OTH JAIL CURRENT DRUG THERAPY] Onset: 10-13-2022 Episodic Other aftercare (2 sources) Surgical follow-up; Translations: [Encounter for follow-up examination after completed treatment for conditions other than malignant neoplasm] 07-15-2024 Episodic Other complications of (7 sources) Blighted ovum; Translations: [Blighted ovum and nonhydatidiform mole] 08-03-2023 Episodic Comment on above: Problem List clean-u p per request of Phys. EHR Cmte Other complications of (2 sources) Abdominal pain in ; Translations: [Other specified related conditions, unspecified trimester] 02-18-2025 Episodic Other complications of (1 source) Other specified related conditions, unspecified trimester; Translations: [Other specified related conditions, unspecified trimester] Onset: 02-18-2025 Episodic Other connective tissue disease (2 [...] vagina] 08-13-2024 Episodic Other female genital disorders (4 sources) Burning sensation of vagina; Translations: [Other specified conditions associated with female genital organs and menstrual cycle] 10-23-2024 Episodic Other female genital disorders (4 sources) Pruritus of vagina; Translations: [Other specified noninflammatory disorders of vagina] 10-23-2024 Episodic Other female genital disorders (2 sources) Vaginal odor; Translations: [Other specified noninflammatory disorders of vagina] 10-23-2024 Episodic Other female genital disorders (2 sources) Vaginal irritation; Translations: [Other specified noninflammatory disorders of vagina] 06-10-2025 Episodic Other infections; including parasitic (1 source) Trichomonal vaginitis; Translations: [Trichomonal vulvovaginitis] 08-17-2024 Episodic Other injuries and conditions due to external causes (7 sources) Muscle strain; Translations: [Other injury of [...] Onset: 07-03-2024 Chronic Other nervous system disorders (4 sources) Chiari malformation type I; Translations: [Compression of brain] 06-10-2025 Chronic Other nervous system disorders (1 source) [...] Episodic Other nutritional; endocrine; and metabolic disorders (4 sources) Body mass index 25-29 - overweight; Translations: [Overweight] 01-01-2024 Episodic Other skin disorders (4 sources) Acne vulgaris; Translations: [ACNE VULGARIS] Onset: 12-20-2022 Episodic Other skin disorders (1 source) Acne, unspecified Episodic Other skin disorders (2 sources) Ingrowing toenail; Translations: [Ingrowing nail] 11-21-2023 Episodic Other skin disorders (4 sources) Acne; Translations: [Acne, unspecified] 01-01-2024 Episodic [...] OUT PT OT RSN] Onset: 10-13-2022 Episodic Residual codes; unclassified (1 source) Pain, unspecified; Translations: [Pain, unspecified] Onset: 02-27-2025 Episodic Residual codes; unclassified (4 sources) H/O: miscarriage; Translations: [Personal history of other complications of , childbirth and the puerperium] 06-10-2025 Episodic Spondylosis; intervertebral disc disorders; other back problems (1 source) Neck pain; Translations: [Cervicalgia] Episodic Sprains and strains (2 sources) Strain of thoracic region; Translations: [Strain of muscle and tendon of back wall of thorax, initial encounter] 05-13-2025 Episodic Unclassified (2 sources) Unknown / UNK(Unknown) [...] // BLEEDING Onset: 12-13-2024 Urinary tract infections (4 sources) Urinary tract infectious disease; Translations: [Urinary [...] 07-31-2015 Episodic Diseases of mouth; excluding dental (15 sources) Lesion of tongue; Translations: [Other diseases of tongue] Onset: 08-09-2024 09-11-2024 Episodic Genitourinary symptoms and ill-defined conditions (20 sources) Hematuria, unspecified; Translations: [Eddie hematuria] Onset: 10-28-2022 06-29-2023 Episodic Headache; including migraine (1 source) Headache; [...] Resolved: 07-24-2015 07-24-2015 Episodic Other gastrointestinal disorders (17 sources) Swallowing painful; Translations: [Dysphagia, unspecified] Onset: [...] Episodic Other nutritional; endocrine; and metabolic disorders (20 sources) Weight increased; Translations: [Abnormal weight gain] [...] Translations: [Acne vulgaris] Onset: 12-14-2022 Episodic Other upper respiratory disease (18 sources) Pain in throat; Translations: [Pain in [...] [Otitis media] Onset: 12-24-2009 Resolved: 07-28-2022 Episodic Spontaneous (13 sources) Complete or unspecified spontaneous without complication; Translations: [Miscarriage] Onset: 02-26-2025 03-30-2025 Episodic Unclassified (1 source) Contact with and (suspected) exposure to covid-19 Z20.822 Onset: 06-24-2022 Resolved: 06-24-2022 Results Test Name Value Interpretation Reference Range Facility METHYLENETETRAHYDROFOLATE RE DUCTASE (MTHFR) [facility] 06-16-2025 Interpretation and review of laboratory results Comment [facility] Comment on above: Technical Component performed at [facility] RT Professional Component performed by: Rohit Caballero, PhD, [facility] [id number], [facility], [address] [facility] [address] MTHFR gene targeted mutation analysis [facility] Nom (Bld/Tiss) Comment [facility] Comment on above: Result: c.665C>T (p. [id number]), legacy name: [id number] - Not Detected c.1286A>C (p. [id number]), legacy name: [id number] - Not Detected Interpretation: This result is not associated with an increased risk for hyperhomocysteinemia. See Additional Clinical Information and Comments. Additional Clinical Information: Hyperhomocysteinemia is multifactorial involving genetic, clinical, and environmental risk factors. Reduced enzyme activity of methylenetetrahydrofolate reductase (MTHFR) is a genetic risk factor for hyperhomocysteinemia, particularly when serum folate levels are low. There are two common variants in the MTHFR gene that can decrease enzyme activity; c.665C>T (p. [id number]), legacy name [id number], and c.1286A>C (p. [id number]), legacy name [id number]. These variants do not independently increase risk of conditions related to hyperhomocysteinemia in the absence of elevated homocysteine levels. Measurement of total plasma homocysteine is recommended. Patients should share their MTHFR genotype with physicians who are making decisions regarding chemotherapy treatments that depend on folate, such as methotrexate. Guidelines do not recommend genotyping of these two MTHFR variants in the evaluation of venous thrombosis or obstetric risk due to limited evidence of clinical utility (PMID: 46628836). Comments: Genetic Coordinators are available for health care providers to discuss results at [phone] ([phone]). Test Details: Variants Analyzed: c.665C>T (p. [id number]), legacy name: [id number] and c.1286A>C (p. [id number]), legacy name: [id number] Methods/Limitations: DNA analysis of the MTHFR gene was performed by PCR amplification followed by restriction enzyme analysis. The diagnostic sensitivity is >99%. Results must be combined with clinical information for the most accurate interpretation. Molecular-based testing is highly accurate, but as in any laboratory test, diagnostic errors may occur. False positive or false negative results may occur for reasons that include genetic variants, blood transfusions, bone marrow transplantation, somatic or tissue-specific mosaicism, mislabeled samples, or erroneous representation of family relationships. This test was developed and its performance characteristics determined by [facility]. It has not been cleared or approved by the Food and Drug Administration. References: Mila SE, Homer CJ, Kelsey HV. [facility] Practice Guideline: lack of evidence for MTHFR polymorphism testing. Jennyfer Med. 2012;15(2):153-6. doi: 10.1038/gim.2012.165. Epub 2012Oct 11. PMID: 84653963. [place] [employer]' Committee on Practice Bulletins-Obstetrics. ACOG Practice Bulletin No. 197: Inherited Thrombophilias in . Obstet Gynecol. 2018 Apr;132(1):e18-e34. doi: 10.1097/AOG.[id number]. Erratum in: Obstet Gynecol. 2018 Jul;132(4):1069. PMID: 26330017. Performed at: - [facility] [address] [place], [place] [id number] [place] Machine Operator: Madyson Gillette [facility], Phone: [phone] [facility] Urine Cultureon 04-17-2025 Bacteria identified Cx Nom (U) >100,000 colonies/ml mixed bacterial skin contaminants 2 Days PERFORMED BY: [place] [address] PATHOLOGIST QUILLER HAND ANNA KEENAN M.D. Normal [facility] Comment on above: Performed By: #### F S #### [address] #### GCCHLAMAMP #### [facility] , HCG-BETA, SERUMon 02-27-2025 HCG.beta subunit Qn 5375 m[IU]/mL Normal Pr [facility] Comment on above: Order Comment: WEEKS (SINCE [...] neoplasms. Performed By: #### H CG #### [address] [address] VIR HEMOGLOBIN AND HEMATOCRIT, B [place] 02-27-2025 Hematocrit (Bld) [Volume fraction] 36.1 % Normal 35-47 [facility] Comment on above: Performed By: #### H H #### [facility] ([address] [address] VIR Hemoglobin (Bld) [Mass/Vol] 12.5 g/dL Normal 11.7-15.5 [facility] Comment on above: Performed By: #### H H #### [facility] ([address] [address] VIR CBC WITH AUTO DIFFERENTIALon 02-26-2025 BASOPHILS ABSOLUTE COUNT (10*3/UL) BY AUTOMATED COUNT 0.1 10*3/uL Normal 0.0-0.2 [facility] Comment on above: Performed By: #### C BCA #### [address] [address] VIR BASOPHILS RELATIVE PERCENT BY AUTOMATED COUNT 0.7 % Normal [facility] Comment on above: Performed By: #### C BCA #### [facility] ([address] [address] VIR CELLAVISION DIFFERENTIAL TYPE AUTOMATED DIFFERENTIAL Normal [facility] Comment on above: Performed By: #### C BCA #### [facility] ([address] [address] VIR Eosinophils (Bld) [#/Vol] 0.0 10*3/uL Normal 0.0-0.4 [facility] Comment on above: Performed By: #### C BCA #### [address] [address] VIR EOSINOPHILS RELATIVE PERCENT BY AUTOMATED COUNT 0.5 % Normal [facility] Comment on above: Performed By: #### C BCA #### [facility] ([address] [address] VIR Erythrocyte distribution width (RBC) [Ratio] 13.2 % Normal 11.5-15 [facility] Comment on above: Performed By: #### C BCA #### [facility] ([address] [address] VIR Hematocrit (Bld) [Volume fraction] 43.1 % Normal 35-47 [facility] Comment on above: Performed By: #### C BCA #### [facility] ([address] [address] VIR Hemoglobin (Bld) [Mass/Vol] 14.6 g/dL Normal 11.7-15.5 [facility] Comment on above: Performed By: #### C BCA #### [address] [address] VIR LYMPHOCYTES ABSOLUTE COUNT (10*3/UL) BY AUTOMATED COUNT 1.7 10*3/uL Normal 1.0-3.5 [facility] Comment on above: Performed By: #### C BCA #### [facility] ([address] [address] VIR LYMPHOCYTES RELATIVE PERCENT BY AUTOMATED COUNT 20.4 % Normal [facility] Comment on above: Performed By: #### C BCA #### [facility] ([address] [place] [address] VIR MCH (RBC) [Entitic mass] 30.8 pg Normal 27-34 [facility] Comment on above: Performed By: #### C BCA #### [facility] ([address] [address] VIR MCHC (RBC) [Mass/Vol] 33.8 g/dL Normal 32-36 [facility] Comment on above: Performed By: #### C BCA #### [facility] ([address] [address] VIR MCV (RBC) [Entitic vol] 91 fL Normal 80-100 [facility] Comment on above: Performed By: #### C BCA #### [facility] ([address] [address] VIR MONOCYTES ABSOLUTE COUNT (10*3/UL) BY AUTOMATED COUNT 0.7 10*3/uL Normal 0.0-0.9 [facility] Comment on above: Performed By: #### C BCA #### [facility] ([address] [address] VIR MONOCYTES RELATIVE PERCENT BY AUTOMATED COUNT 8.1 % Normal [facility] Comment on above: Performed By: #### C BCA #### [facility] ([address] [address] VIR NEUTROPHILS ABSOLUTE COUNT BY AUTOMATED COUNT 6.0 10*3/uL Normal 1.5-6.6 [facility] Comment on above: Performed By: #### C BCA #### [facility] ([address] [place] [address] VIR NEUTROPHILS RELATIVE PERCENT BY AUTOMATED COUNT 70.3 % Normal [facility] Comment on above: Performed By: #### C BCA #### [facility] ([address] [place] [address] VIR Platelet mean volume (Bld) [Entitic vol] 8.1 fL Normal 7-12 [facility] Comment on above: Performed By: #### C BCA #### [facility] ([address] [place] [address] VIR Platelets (Bld) [#/Vol] 239 10*3/uL Normal 150-450 [facility] Comment on above: Performed By: #### C BCA #### [facility] ([address] [place] [address] VIR RBC COUNT 4.72 X10E12/L Normal 3.8-5.2 [facility] Comment on above: Performed By: #### C BCA #### [facility] ([address] [place] [address] VIR WBC (Bld) [#/Vol] 8.6 10*3/uL Normal 4-11 [facility] Comment on above: Performed By: #### C BCA #### [facility] ([address] [place] [address] VIR COMPREHENSIVE METABOLIC PANE Yogi 02-26-2025 Albumin [Mass/Vol] 4.5 g/dL Normal 3.2-5.3 [facility] Comment on above: Performed By: #### C MP #### [facility] ([address] [place] [address] VIR ALP [Catalytic activity/Vol] 67 U/L Normal 39-130 [facility] Comment on above: Performed By: #### C MP #### [facility] ([place]) [address] [place] [address] VIR ALT [Catalytic activity/Vol] 27 U/L Normal <=31 [facility] Comment on above: Performed By: #### C MP #### [facility] (ON LICENSE OF [facility]) [address] [place] [address] VIR Anion gap [Moles/Vol] 5 mmol/L Normal 5-15 [facility] Comment on above: Performed By: #### C MP #### [facility] ([place] [address] [place] [address] VIR AST [Catalytic activity/Vol] 24 U/L Normal <=41 [facility] Comment on above: Performed By: #### C MP #### [facility] ([place] [address] [place] [address] VIR Bilirubin [Mass/Vol] 2.0 mg/dL High 0.3-1.2 [facility] Comment on above: Performed By: #### C MP #### [facility] ([place] [address] [place] [address] VIR Calcium [Mass/Vol] 8.8 mg/dL Normal 8.5-10.5 [facility] Comment on above: Performed By: #### C MP #### [facility] ([place] [address] [place] [address] VIR Chloride [Moles/Vol] 100 mmol/L Normal 98-109 [facility] Comment on above: Performed By: #### C MP #### [facility] ([place] [address] [place] [address] VIR CO2 [Moles/Vol] 27 mmol/L Normal 22-32 [facility] Comment on above: Performed By: #### C MP #### [facility] ([place] [address] [place] [address] VIR Creatinine [Mass/Vol] 0.71 mg/dL Normal 0.40-1.00 [facility] Comment on above: Result Comment: METH OD TRACEABLE TO IDMS STANDARD Performed By: #### C MP #### [facility] ([address] [address] VIR EGFR (CKD-EPI) NON-RACE DEPENDENT >^90 Normal >=60 [facility] Comment on above: Result Comment: eGFR not reported due to non-numeric value for Creatinine. Reported eGFR is based on the CKD-EPI 1 equation that does not use a race coefficient. Performed By: #### C MP #### [facility] ([address] [address] VIR Glucose [Mass/Vol] 100 mg/dL High 65-99 [facility] Comment on above: Performed By: #### C MP #### [address] [address] VIR Potassium [Moles/Vol] 3.4 mmol/L Low 3.5-5.0 [facility] Comment on above: Performed By: #### C MP #### [facility] ([address] [address] VIR Protein [Mass/Vol] 7.4 g/dL Normal 6.0-8.0 [facility] Comment on above: Performed By: #### C MP #### [facility] ([address] [address] VIR Sodium [Moles/Vol] 132 mmol/L Low 134-146 [facility] Comment on above: Performed By: #### C MP #### [facility] ([address] [address] VIR Urea nitrogen [Mass/Vol] 12 mg/dL Normal 5-23 [facility] Comment on above: Performed By: #### C MP #### [facility] ([address] [place] [address] VIR HCG-BETA, SERUMon 02-26-2025 [place] [address] m[IU]/mL Normal P [facility] Comment on above: Order Comment: WEEKS (SINCE [...] neoplasms. Performed By: #### H CG #### [facility] ([address] [address] VIR POCT NURSING URINE MACROSCOP IC UAon 02-26-2025 BILIRUBIN EMILY Negative Normal Negative [facility] Comment on above: Performed By: #### N UM #### [facility] ([address] [place] [address] VIR BLOOD/HGB EMILY Large Abnormal Negative [facility] Comment on above: Performed By: #### N UM #### [facility] ([address] [address] VIR GLUCOSE EMILY Negative Normal Negative [facility] Comment on above: Performed By: #### N UM #### [facility] ([address] [place] [place] [address] VIR KETONES EMILY 15 mg/dL Abnormal Negative [facility] Comment on above: Performed By: #### N UM #### [facility] ([address] [place] [address] VIR LEUKOCYTE ESTERASE EMILY Negative Normal Negative Pr [facility] Comment on above: Performed By: #### N UM #### [facility] ([address] [address] VIR NITRITE EMILY Negative Normal Negative [facility] Comment on above: Performed By: #### N UM #### [facility] ([address] [place] [address] VIR PH EMILY 6.0 Normal 5.0, 6.0, 6.5, 7.0, 7.5, 8.0, 8.5, 5.5 [facility] Comment on above: Performed By: #### N UM #### [facility] ([address] [place] [address] VIR PROTEIN EMILY Negative Normal Negative [facility] Comment on above: Performed By: #### N UM #### [facility] ([address] [place] [place] [address] VIR SPECIFIC GRAVITY EMILY 1.015 Normal 1.010, 1.015, 1.020, 1.025 [facility] Comment on above: Performed By: #### N UM #### [facility] ([address] [place] [address] VIR UROBILINOGEN EMILY 0.2 E.U./dL Normal [facility] Comment on above: Performed By: #### N UM #### [facility] ([address] [place] [address] VIR POCT , URINE (NUCG) on 02-26-2025 Beta HCG ( test) Ql (U) Positive Abnormal Negative [facility] Comment on above: Performed By: #### N UCG #### [facility] ([address] [address] VIR URINE CULTUREon 02-26-2025 Bacteria identified Cx Nom (U) CULTURE RESULTS <10,000 ORGANISMS/mL NORMAL URO GENITAL SHAQ Normal [facility] Comment on above: Performed By: #### 2 0415-6 #### [facility] ([id number]) [address] [place] [address], [place] [address] US PREG LESS THAN 14 WKS FOR [...] Alonso MD on 02/26/2025 8:17 PM Normal [facility] HCG, Quanton 02-22-2025 HCG, Quant 5908.0 mIU/mL High <5 [facility] Comment on above: Result Comment: Non-preg premeno <=5 Postmeno <=8 Male <=3 If HCG results do not concur with clinical observations, additional testing to confirm results is recommended. Performed By: #### B HCG #### [facility] [address] [place] [address] Nicking Machine Operator: Caden Brown MD HCG, Quantitative, on 02-22-2025 HCG.beta subunit Qn 5908 m[IU]/mL High NINF [facility] Comment on above: Non-preg premeno <=5 Postmeno <=8 Male <=3 If HCG results do not concur with clinical observations, additional testing to confirm results is recommended. Interpretation and review of laboratory results Abnormal [facility] ABO/RH Typeon 02-18-2025 ABO and Rh group Nom (Bld) Blood group A Rh(D) positive Normal [facility] Comment on above: Result Comment: PERF ORMED BY: [facility] [address] [place] [address] PATHOLOGIST QUILLER HAND SHANITA MÁRQUEZ M.D. Alanine aminotransferase [En zymatic activity/volume] in Serum or PlasmaOrdered By: Yaritza Bauer on 02-18-2025 ALT [Catalytic activity/Vol] Alanine aminotransferase [Enzymatic activity/volume] in Serum or Plasma [facility] ALT [Catalytic activity/Vol] 21 U/L Normal [facility] Comment on above: Performed By: #### L IPASE, PT, CBC, HEPATIC, BMP, PTT #### [facility] [address] Albumin [Mass/volume] in Ser um or Plasma by Bromocresol green (BCG) dye binding methoOrdered By: Yaritza Bourgeoisjean on 02-18-2025 Albumin BCG dye [Mass/Vol] Albumin [Mass/volume] in Serum or Plasma by Bromocresol green (BCG) dye binding metho 3.5-5.7 [facility] Albumin BCG dye [Mass/Vol] 4.3 g/dL 3.5-5.7 [facility] Alkaline phosphatase [Enzyma tic activity/volume] in Serum or PlasmaOrdered By: Yaritza Bauer on 02-18-2025 ALP [Catalytic activity/Vol] Alkaline phosphatase [Enzymatic activity/volume] in Serum or Plasma 34-104 [facility] ALP [Catalytic activity/Vol] 58 U/L Normal -104 [facility] Comment on above: Performed By: #### L IPASE, PT, CBC, HEPATIC, BMP, PTT #### [address] Appearance of UrineOrdered B y: Yaritza Christellejean on 02-18-2025 Appearance (U) Urine appearance Clear [facility] Appearance (U) Clear Normal Clear [facility] Comment on above: Order Comment: Name Collection Type:: Clean-Voided Midstream Performed By: #### U HCG, UA #### [address] Aspartate aminotransferase [ Enzymatic activity/volume] in Serum or PlasmaOrdered By: Yaritza Bauer on 02-18-2025 AST [Catalytic activity/Vol] Aspartate aminotransferase [Enzymatic activity/volume] in Serum or Plasma [facility] AST [Catalytic activity/Vol] 21 U/L Normal [facility] Comment on above: Performed By: #### L IPASE, PT, CBC, HEPATIC, BMP, PTT #### [address] Basic Metabolic Panelon 02-06 Creatinine Clr Calc Pharmacy 107.28 Normal [facility] Comment on above: Performed By: #### F S #### [place] [address] [place] #### GCCHLAMAMP #### [facility] , GFR/1.73 sq M.predicted MDRD (S/P/Bld) [Vol rate/Area] mL/min/{1.73_m2} Normal [facility] Comment on above: Performed By: #### F S #### [place] [address] [place] #### GCCHLAMAMP #### [facility] , Basophils Auto (Bld) [#/Vol] Ordered By: Yaritza Bauer on 02-18-2025 Basophils (Bld) [#/Vol] Automated basophil count 0.0-0.2 [facility] Basophils [#/volume] in Bloo d by Automated countOrdered By: Yaritza Bauer on 02-18-2025 Basophils (Bld) [#/Vol] 0.1 10*3/uL Normal 0.0-0.2 [facility] Comment on above: Result Comment: PERF ORMED BY: [address] [place] [address] PATHOLOGIST QUILLER HAND SHANITA MÁRQUEZ M.D. Performed By: #### L IPASE, PT, CBC, HEPATIC, BMP, PTT #### [address] Basophils/100 WBC Auto (Bld) Ordered By: Yaritza Bauer on 02-18-2025 Basophils/100 WBC (Bld) Automated basophil % . [facility] Basophils/100 leukocytes in Blood by Automated countOrdered By: Yaritza Bauer on 02-18-2025 Basophils/100 WBC (Bld) 1.9 % Normal . [facility] Comment on above: Performed By: #### L IPASE, PT, CBC, HEPATIC, BMP, PTT #### [address] Bilirubin Test strip Ql (U)O rdered By: Yaritza Bauer on 02-18-2025 Bilirubin Ql (U) Bilirubin.total [Presence] in Urine by Test strip Negative [facility] Bilirubin Ql (U) Negative Negative [facility] Bilirubin.direct [Mass/volum e] in Serum or PlasmaOrdered By: Yaritza Bauer on 02-18-2025 Bilirubin.direct [Mass/Vol] Bilirubin.direct [Mass/volume] in Serum or Plasma High 0.03-0.18 [facility] Bilirubin.direct [Mass/Vol] 0.30 mg/dL High 0.03-0.18 [facility] Bilirubin.total [Mass/volume ] in Serum or PlasmaOrdered By: Yaritza Bauer on 02-18-2025 Bilirubin [Mass/Vol] Bilirubin.total [Mass/volume] in Serum or Plasma High 0.3-1.0 [facility] Bilirubin [Mass/Vol] 1.1 mg/dL High 0.3-1.0 [facility] Comment on above: Performed By: #### L IPASE, PT, CBC, HEPATIC, BMP, PTT #### [facility] [address] [place] [address] Calcium [Mass/volume] in Ser um or PlasmaOrdered By: Yaritza Bauer on 02-18-2025 Calcium [Mass/Vol] Calcium [Mass/volume ] in Serum or Plasma 8.6-10.3 [facility] Calcium [Mass/Vol] 9.2 mg/dL Normal 8.6-10.3 [facility] Comment on above: Performed By: #### F S #### [facility] [address] [place] [address] #### GCCHLAMAMP #### [facility] , Carbon dioxide, total [Moles /volume] in Serum or PlasmaOrdered By: Yaritza Bauer on 02-18-2025 CO2 [Moles/Vol] Carbon dioxide, tota l [Moles/volume] in Serum or Plasma 21.0-31.0 [facility] CO2 [Moles/Vol] 27.9 mmol/L Normal 21.0-31.0 [facility] Comment on above: Performed By: #### F S #### [facility] [address] [place] [address] [place] #### GCCHLAMAMP #### [facility] , Chlamydia/GC Amplificationon 02-18-2025 Chlamydia Trachomotis, JANET Negative Normal Negative [facility] Comment on above: Order Comment: SOURC E OF SPECIMEN: Genital Performed By: #### F S #### [facility] [address] [place] [address] #### GCCHLAMAMP #### [facility] , Neisseria Gonorrhoeae, JANET Negative Normal Negative [facility] Comment on above: Order Comment: SOURC E OF SPECIMEN: Genital Result Comment: Perf ormed at: =G - [facility] [address] [id number] Nicking Machine Operator: Barbie Mota MD, Phone: [phone] PERFORMED BY: [place] [address] PATHOLOGIST QUILLER HAND SHANITA MÁRQUEZ M.D. Performed By: #### F S #### [address] #### GCCHLAMAMP #### [facility] , Chloride [Moles/volume] in S emiliana or PlasmaOrdered By: Yaritza Bauer on 02-18-2025 Chloride [Moles/Vol] Chloride [Moles/vol ume] in Serum or Plasma [address] Chloride [Moles/Vol] 104 mmol/L Normal [address] [place] [address] Comment on above: Performed By: #### F S #### [facility] [address] [place] [address] [place] #### GCCHLAMAMP #### [facility] , Choriogonadotropin.beta subu nit [Units/volume] in Serum or PlasmaOrdered By: Yaritza Bauer on 02-18-2025 HCG.beta subunit Qn Choriogonadotropin.b eta subunit [Units/volume] in Serum or Plasma [facility] Comment on above: Approximate Approxim ate hCG Gestational Age Range (mIU/ml) (weeks)0.2-1 5-50 1-2 50-500 2-3 100-5,000 3-4 500-10,000 4-5 1,000-50,000 5-6 10,000-100,000 6-8 15,000-200,000 8-12 10,000-100,000 HCG.beta subunit Qn 1673.00 m[IU]/mL [facility] Comment on above: Approximate Approxim ate hCG Gestational Age Range (mIU/ml) (weeks)0.2-1 5-50 1-2 50-500 2-3 100-5,000 3-4 500-10,000 4-5 1,000-50,000 5-6 10,000-100,000 6-8 15,000-200,000 8-12 10,000-100,000 Color Auto (U)Ordered By: Yury Bauer on 02-18-2025 Color (U) Color of Urine by Auto [facility] Color of Urine by AutoOrdere d By: Yaritza Bauer on 02-18-2025 Color (U) Yellow Normal Yellow [facility] Comment on above: Order Comment: Name Collection Type:: Clean-Voided Midstream Performed By: #### U HCG, UA #### [facility] [address] [place] [address] Complete Blood Count Auto Di ffon 02-18-2025 Mean Corpuscular HGB Conc 33.7 g/dL Normal 32.0-35.0 [facility] Comment on above: Performed By: #### L IPASE, PT, CBC, HEPATIC, BMP, PTT #### [facility] [address] [place] [id number] [place] Monocytes/100 WBC (Bld) 22.50 % High 0.00-20.00 [place] [facility] Comment on above: Result Comment: For adults in ED, MDW > 20.0 may be associated with a higher risk of sepsis during the first 12 hrs of hospital admission Performed By: #### L IPASE, PT, CBC, HEPATIC, BMP, PTT #### [facility] [address] NRBC% 0.1 /100{WBC} Normal 0-0.5 [facility] Comment on above: Performed By: #### L IPASE, PT, CBC, HEPATIC, BMP, PTT #### [address] Creatinine [Mass/volume] in Serum or PlasmaOrdered By: Yaritza Bauer on 02-18-2025 Creatinine [Mass/Vol] Creatinine [Mass/v olume] in Serum or Plasma 0.60-1.20 [facility] Creatinine [Mass/Vol] 0.77 mg/dL Normal 0.60-1.[address] [facility] Comment on above: Performed By: #### F S #### [address] #### GCCHLAMAMP #### [facility] , Eosinophils Auto (Bld) [#/Vo l]Ordered By: Yaritza Bauer on 02-18-2025 Eosinophils (Bld) [#/Vol] Automated eosinophil count 0.0-0.45 [facility] Eosinophils [#/volume] in Bl ood by Automated countOrdered By: Yaritza Bauer on 02-18-2025 Eosinophils (Bld) [#/Vol] 0.0 10*3/uL Normal 0.0-0.45 [facility] Comment on above: Performed By: #### L IPASE, PT, CBC, HEPATIC, BMP, PTT #### [address] Eosinophils/100 WBC Auto (Bl d)Ordered By: Yaritza Bauer on 02-18-2025 Eosinophils/100 WBC (Bld) Automated eosinophil % . [facility] Eosinophils/100 leukocytes i n Blood by Automated countOrdered By: Yaritza Bauer on 02-18-2025 Eosinophils/100 WBC (Bld) 0.7 % Normal . [facility] Comment on above: Performed By: #### L IPASE, PT, CBC, HEPATIC, BMP, PTT #### [address] Erythrocyte distribution wid th Auto (RBC) [Ratio]Ordered By: Yaritza Bauer on 02-18-2025 Erythrocyte distribution width (RBC) [Ratio] Erythrocyte distribution width [Ratio] by Automated count 11.9-15.3 [facility] Erythrocyte distribution wid th [Ratio] by Automated countOrdered By: Yaritza Bauer on 02-18-2025 Erythrocyte distribution width (RBC) [Ratio] 13.5 % Normal 11.9-15.3 [facility] Comment on above: Performed By: #### L IPASE, PT, CBC, HEPATIC, BMP, PTT #### [address] Erythrocytes [#/volume] in B lood by Automated countOrdered By: Yaritza Bauer on 02-18-2025 RBC (Bld) [#/Vol] 4.56 10*6/uL Normal 3.60-5.00 [facility] Comment on above: Performed By: #### L IPASE, PT, CBC, HEPATIC, BMP, PTT #### [address] Fungal Smearon 02-18-2025 Fungal Smear Fungus Smear Results No Yeast Like Elements Seen ------ Trichomonas Screen No Trichomonas Seen Trich Reference Reference range = None Seen PERFORMED BY: [place] [address] PATHOLOGIST QUILLER HAND SHANITA MÁRQUEZ M.D. Normal [facility] Comment on above: Performed By: #### F S #### [facility] [address] [place] [address] #### GCCHLAMAMP #### [facility] , Fungal smearOrdered By: Neha Bauer on 02-18-2025 Fungus identified Fungus stain Nom (Unsp spec) Fungal smear [facility] Fungus identified Fungus stain Nom (Unsp spec) [facility] Globulin Calc (S) [Mass/Vol] Ordered By: Yaritza Bauer on 02-18-2025 Globulin (S) [Mass/Vol] Serum globulin measurement by calculation (mass/volume) [facility] Glucose [Mass/volume] in Ser um or PlasmaOrdered By: Yaritza Baeur on 02-18-2025 Glucose [Mass/Vol] Glucose [Mass/volume ] in Serum or Plasma 70-100 [facility] Comment on above: ADA recommended refe rence rangeRandom Glucose Reference Range is dependent on time and content of last meal. Glucose of more than 200 mg/dL in a nonstressed, ambulatory subject supports the diagnosis of Diabetes Mellitus. Glucose [Mass/Vol] 87 mg/dL Normal 70-100 [facility] Comment on above: ADA recommended refe rence rangeRandom Glucose Reference Range is dependent on time and content of last meal. Glucose of more than 200 mg/dL in a nonstressed, ambulatory subject supports the diagnosis of Diabetes Mellitus. Result Comment: [place] Glucose Reference Range is dependent on time and content of last meal. Glucose of more than 200 mg/dL in a nonstressed, ambulatory subject supports the diagnosis of Diabetes Mellitus. ADA recommended reference range Performed By: #### F S #### [address] #### GCCHLAMAMP #### [facility] , Glucose [Mass/volume] in Uri ne by Test stripOrdered By: Yraitza Bauer on 02-18-2025 Glucose Test strip (U) [Mass/Vol] Glucose [Mass/volume] in Urine by Test strip Normal [facility] Glucose Test strip (U) [Mass/Vol] Normal mg/dL [facility] HCG ( test) IA.rapi d Ql (U)Ordered By: Yaritza Bauer on 02-18-2025 HCG ( test) Ql (U) Urine human chorionic gonadotropin (hCG) detection by immunoassay [facility] HCG ( test) Ql (U) Positive [facility] HCG,Quantitativeon HCG,Quantitative 1673.00 m[iU]/mL Normal [facility] Comment on above: Result Comment: Appr oximate Approximate hCG Gestational Age Range (mIU/ml) (weeks) 0.2-1 5-50 1-2 50-500 2-3 100-5,000 3-4 500-10,000 4-5 1,000-50,000 5-6 10,000-100,000 6-8 15,000-200,000 8-12 10,000-100,000 PERFORMED BY: [place] [address] PATHOLOGIST QUILLER HAND SHANITA MÁRQUEZ M.D. Performed By: #### F S #### [address] #### GCCHLAMAMP #### [facility] , HCG,Urineon 02-18-2025 Beta HCG ( test) Ql (U) Positive High [facility] Comment on above: Order Comment: Name Collection Type:: Clean-Voided Midstream Result Comment: PERF ORMED BY: [place] [address] PATHOLOGIST QUILLER HAND SHANITA MÁRQUEZ M.D. Performed By: #### U HCG, UA #### [address] Hematocrit Auto (Bld) [Volum e fraction]Ordered By: Yaritza Bauer on 02-18-2025 Hematocrit (Bld) [Volume fraction] Hematocrit [Volume Fraction] of Blood by Automated count 34.0-46.4 [facility] Hematocrit [Volume Fraction] of Blood by Automated countOrdered By: Yaritza Bauer on 02-18-2025 Hematocrit (Bld) [Volume fraction] 41.8 % Normal 34.0-46.4 [facility] Comment on above: Performed By: #### L IPASE, PT, CBC, HEPATIC, BMP, PTT #### [address] Hemoglobin Test strip Ql (U) Ordered By: Yaritza Bauer on 02-18-2025 Hemoglobin Ql (U) Hemoglobin [Presence ] in Urine by Test strip Negative [facility] Hemoglobin Ql (U) Negative Negative [facility] Hemoglobin [Mass/volume] in BloodOrdered By: Yaritza Bauer on 02-18-2025 Hemoglobin (Bld) [Mass/Vol] Hemoglobin [Mass/volume] in Blood 11.8-15.4 [facility] Hemoglobin (Bld) [Mass/Vol] 14.1 g/dL Normal 11.8-15.4 [facility] Comment on above: Performed By: #### L IPASE, PT, CBC, HEPATIC, BMP, PTT #### [facility] [address] Hepatic Panelon 02-18-2025 Albumin [Mass/Vol] 4.3 g/dL Normal 3.5-5.7 [facility] Comment on above: Performed By: #### L IPASE, PT, CBC, HEPATIC, BMP, PTT #### [facility] [address] Bilirubin,Indirect 0.8 mg/dL Normal [facility] Comment on above: Performed By: #### L IPASE, PT, CBC, HEPATIC, BMP, PTT #### [facility] [address] Bilirubin.indirect [Mass/Vol] 0.30 mg/dL High 0.03-0.18 [facility] Comment on above: Performed By: #### L IPASE, PT, CBC, HEPATIC, BMP, PTT #### [facility] [address] INR in Platelet poor plasma by Coagulation assayOrdered By: Yaritza Bauer on 02-18-2025 INR Coag (PPP) [Relative time] INR in Platelet poor plasma by Coagulation assay [facility] Comment on above: INR Therapeutic Rang e A) Pre- and Peroperative OAT started two weeks before surgery. NOT HIP SURGERY: 1.5 - 2.5 HIP SURGERY: 2 - 3B) Primary and secondary prevention of venous THROMBOSIS: 2 - 3C) Active venous thrombosis, pulmonary embolismand prevention of recurrent venous thrombosis: 2 - 3D) Prevention of arterial thromboembolismincluding patients with mechanical heart valves: 3 - 4.5 INR Coag (PPP) [Relative time] 1.1 {INR} Normal [facility] Comment on above: INR Therapeutic Rang e A) Pre- and Peroperative OAT started two weeks before surgery. NOT HIP SURGERY: 1.5 - 2.5 HIP SURGERY: 2 - 3B) Primary and secondary prevention of venous THROMBOSIS: 2 - 3C) Active venous thrombosis, pulmonary embolismand prevention of recurrent venous thrombosis: 2 - 3D) Prevention of arterial thromboembolismincluding patients with mechanical heart valves: 3 - 4.5 Result Comment: INR Therapeutic Range A) Pre- [...] 4.5 Performed By: #### F S #### [facility] [address] [place] [address] #### GCCHLAMAMP #### [facility] , Ketones Test strip Ql (U)Ord ered By: Yaritza Bauer on 02-18-2025 Ketones Ql (U) Ketones [Presence] i n Urine by Test strip Negative [facility] Ketones [Presence] in Urine by Test stripOrdered By: Yaritza Bauer on 02-18-2025 Ketones Ql (U) Negative Normal Negative [facility] Comment on above: Order Comment: Name Collection Type:: Clean-Voided Midstream Performed By: #### U HCG, UA #### [facility] [address] [place] [address] Laboratory - Microbiology an d Antimicrobial susceptibilityOrdered By: Yaritza Bauer on 02-18-2025 C. trachomatis DNA JANET+probe Ql (Unsp spec) Negative Negative [facility] N. gonorrhoeae DNA JANET+probe Ql (Unsp spec) Negative Negative [facility] Comment on above: Performed at: =[address] [id number] Director: Barbie Mota MD, Phone: [phone] Leukocyte esterase [Presence ] in Urine by Test stripOrdered By: Yaritza Bauer on 02-18-2025 Leukocyte esterase Test strip Ql (U) Leukocyte esterase [Presence] in Urine by Test strip Negative [facility] Leukocyte esterase Test strip Ql (U) Negative Normal Negative [facility] Comment on above: Order Comment: Name Collection Type:: Clean-Voided Midstream Performed By: #### U HCG, UA #### [facility] [address] [place] [address] Leukocytes [#/volume] correc roe for nucleated erythrocytes in Blood by Automated counOrdered By: Yaritza Bauer on 02-18-2025 WBC corrected for nucl RBC Auto (Bld) [#/Vol] Leukocytes [#/volume] corrected for nucleated erythrocytes in Blood by Automated coun 3.8-11.6 [facility] WBC corrected for nucl RBC Auto (Bld) [#/Vol] 5.2 10*3/uL 3.8-11.6 [facility] Leukocytes [#/volume] in Blo od by Automated countOrdered By: Yaritza Bauer on 02-18-2025 WBC (Bld) [#/Vol] 5.2 10*3/uL Normal 3.8-11.6 [facility] Comment on above: Performed By: #### L IPASE, PT, CBC, HEPATIC, BMP, PTT #### [facility] [address] [place] [address] Lipase [Enzymatic activity/v olume] in Serum or PlasmaOrdered By: Yaritza Bauer on 02-18-2025 Lipase [Catalytic activity/Vol] Lipase [Enzymatic activity/volume] in Serum or Plasma 11.0-82.0 [facility] Lipase [Catalytic activity/Vol] 22.0 U/L Normal 11.0-82.0 [facility] Comment on above: Result Comment: PERF ORMED BY: [place] [address] PATHOLOGIST QUILLER HAND SHANIAT MÁRQUEZ M.D. Performed By: #### F S #### [address] #### GCCHLAMAMP #### [facility] , Lymphocytes Auto (Bld) [#/Vo l]Ordered By: Yaritza Bauer on 02-18-2025 Lymphocytes (Bld) [#/Vol] Lymphocytes [#/volume] in Blood by Automated count 1.00-4.8 [facility] Lymphocytes [#/volume] in Bl ood by Automated countOrdered By: Yaritza Bauer on 02-18-2025 Lymphocytes (Bld) [#/Vol] 1.6 10*3/uL Normal 1.00-4.8 [facility] Comment on above: Performed By: #### L IPASE, PT, CBC, HEPATIC, BMP, PTT #### [facility] [address] [place] [address] Lymphocytes/100 WBC Auto (Bl d)Ordered By: Yaritza Bauer on 02-18-2025 Lymphocytes/100 WBC (Bld) Lymphocytes/100 leukocytes in Blood by Automated count . [facility] Lymphocytes/100 leukocytes i n Blood by Automated countOrdered By: Yaritza Bauer on 02-18-2025 Lymphocytes/100 WBC (Bld) 30.2 % Normal . [facility] Comment on above: Performed By: #### L IPASE, PT, CBC, HEPATIC, BMP, PTT #### [facility] [address] [place] [address] MCH Auto (RBC) [Entitic mass ]Ordered By: Yaritza Bauer on 02-18-2025 MCH (RBC) [Entitic mass] MCH [Entitic mass] by Automated count 24.7-34.3 [facility] MCH [Entitic mass] by Automa roe countOrdered By: Yaritza Bauer on 02-18-2025 MCH (RBC) [Entitic mass] 30.9 pg Normal 24.7-34.3 [facility] Comment on above: Performed By: #### L IPASE, PT, CBC, HEPATIC, BMP, PTT #### [facility] [address] [place] [address] MCHC Auto (RBC) [Mass/Vol]Or dered By: Yaritza Bauer on 02-18-2025 MCHC (RBC) [Mass/Vol] MCHC [Mass/volume] by Automated count 32.0-35.0 [facility] MCHC (RBC) [Mass/Vol] 33.7 g/dL 32.0-35.[address] [facility] MCV Auto (RBC) [Entitic vol] Ordered By: Yaritza Bauer on 02-18-2025 MCV (RBC) [Entitic vol] MCV [Entitic vol ume] by Automated count 80-100 [facility] MCV [Entitic volume] by Auto mated countOrdered By: Yaritza Bauer on 02-18-2025 MCV (RBC) [Entitic vol] 91.6 fL Normal 80-100 [facility] Comment on above: Performed By: #### L IPASE, PT, CBC, HEPATIC, BMP, PTT #### [address] Monocyte distribution width [Entitic volume] in Blood by AutomatedOrdered By: Yaritza Bauer on 02-18-2025 Monocyte distribution width Auto (Bld) [Entitic vol] Monocyte distribution width [Entitic volume] in Blood by Automated High 0.00-20.00 [facility] Comment on above: For adults in ED, MD W > 20.0 may be associated with a higher risk of sepsis during the first 12 hrs of hospital admission Monocyte distribution width Auto (Bld) [Entitic vol] 22.50 % High 0.00-20.00 [facility] Comment on above: For adults in ED, MD W > 20.0 may be associated with a higher risk of sepsis during the first 12 hrs of hospital admission Monocytes Auto (Bld) [#/Vol] Ordered By: Yaritza Bauer on 02-18-2025 Monocytes (Bld) [#/Vol] Automated blood monocyte count 0.0-0.8 [facility] Monocytes [#/volume] in Bloo d by Automated countOrdered By: Yaritza Bauer on 02-18-2025 Monocytes (Bld) [#/Vol] 0.3 10*3/uL Normal 0.0-0.8 [facility] Comment on above: Performed By: #### L IPASE, PT, CBC, HEPATIC, BMP, PTT #### [facility] [address] [place] [address] [place] Monocytes/100 WBC Auto (Bld) Ordered By: Yaritza Bauer on 02-18-2025 Monocytes/100 WBC (Bld) Automated monocyte % . [facility] Monocytes/100 leukocytes in Blood by Automated countOrdered By: Yaritza Bauer on 02-18-2025 Monocytes/100 WBC (Bld) 6.6 % Normal . [facility] Comment on above: Performed By: #### L IPASE, PT, CBC, HEPATIC, BMP, PTT #### [address] Neutrophils Auto (Bld) [#/Vo l]Ordered By: Yaritza Bauer on 02-18-2025 Neutrophils (Bld) [#/Vol] Neutrophils [#/volume] in Blood by Automated count 1.8-7.7 [facility] Neutrophils [#/volume] in Bl ood by Automated countOrdered By: Yaritza Bauer on 02-18-2025 Neutrophils (Bld) [#/Vol] 3.2 10*3/uL Normal 1.8-7.7 [facility] Comment on above: Performed By: #### L IPASE, PT, CBC, HEPATIC, BMP, PTT #### [place] [address] [place] Neutrophils/100 WBC Auto (Bl d)Ordered By: Yaritza Bauer on 02-18-2025 Neutrophils/100 WBC (Bld) Automated neutrophil % . [facility] Neutrophils/100 leukocytes i n Blood by Automated countOrdered By: Yaritza Bauer on 02-18-2025 Neutrophils/100 WBC (Bld) 60.6 % Normal . [facility] Comment on above: Performed By: #### L IPASE, PT, CBC, HEPATIC, BMP, PTT #### [address] Nitrite Test strip Ql (U)Ord ered By: Yaritza Bauer on 02-18-2025 Nitrite Ql (U) Nitrite [Presence] i n Urine by Test strip Negative [facility] Nitrite Ql (U) Negative Negative [facility] No Panel InformationOrdered By: Yaritza Bauer on 02-18-2025 Estimated GFR (CKD-EPI) > 60.0 mL/Min [facility] Creatinine Clearance (Chem 107.28 [facility] Nucleated erythrocytes [Pres ence] in Blood by Automated countOrdered By: Yaritza Bauer on 02-18-2025 Nucleated RBC Auto Ql (Bld) Nucleated erythrocytes [Presence] in Blood by Automated count 0-0.5 [facility] Nucleated RBC Auto Ql (Bld) 0.1 /100{WBC} 0-0.5 [facility] Partial Thromboplastin Timeo n 02-18-2025 aPTT Coag (Bld) [Time] 29.3 s Normal 25.1-36.5 [facility] Comment on above: Result Comment: A he matocrit value greater than 55% may lead to inaccurate results in coagulation testing. Patients having hematocrit values >55% require a special collection tube for coagulation studies. Please contact the laboratory at [phone] for redraw instructions. PERFORMED BY: [address] [place] [address] PATHOLOGIST QUILLER HAND SHANITA MÁRQUEZ M.D. Performed By: #### F S #### [facility] [address] [place] [address] #### GCCHLAMAMP #### [facility] , Platelet mean volume Auto (B ld) [Entitic vol]Ordered By: Yaritza Bauer on 02-18-2025 Platelet mean volume (Bld) [Entitic vol] Platelet mean volume [Entitic volume] in Blood by Automated count 6.3-10.7 [facility] Platelet mean volume [Entiti c volume] in Blood by Automated countOrdered By: Yaritza Bauer on 02-18-2025 Platelet mean volume (Bld) [Entitic vol] 8.0 fL Normal 6.3-10.7 [facility] Comment on above: Performed By: #### L IPASE, PT, CBC, HEPATIC, BMP, PTT #### [facility] [address] Platelets Auto (Bld) [#/Vol] Ordered By: Yaritza Bauer on 02-18-2025 Platelets (Bld) [#/Vol] Platelets [#/vol ume] in Blood by Automated count 150-450 [facility] Platelets [#/volume] in Bloo d by Automated countOrdered By: Yaritza Bauer on 02-18-2025 Platelets (Bld) [#/Vol] 181 10*3/uL Normal 150-450 [facility] Comment on above: Performed By: #### L IPASE, PT, CBC, HEPATIC, BMP, PTT #### [facility] [address] [place] [address] Potassium [Moles/volume] in Serum or PlasmaOrdered By: Yaritza Bauer on 02-18-2025 Potassium [Moles/Vol] Potassium [Moles/v olume] in Serum or Plasma 3.5-5.1 [facility] Potassium [Moles/Vol] 3.6 mmol/L Normal 3.5-5.[address] [facility] Comment on above: Performed By: #### F S #### [facility] [address] [place] [address] #### GCCHLAMAMP #### [facility] , Protein Test strip (U) [Mass /Vol]Ordered By: Yaritza Bauer on 02-18-2025 Protein (U) [Mass/Vol] Protein [Mass/vol ume] in Urine by Test strip Negative [facility] Protein (U) [Mass/Vol] Negative Negative [facility] Protein [Mass/volume] in Ser um or PlasmaOrdered By: Yaritza Bauer on 02-18-2025 Protein [Mass/Vol] Protein [Mass/volume ] in Serum or Plasma 6.4-8.9 [facility] Protein [Mass/Vol] 6.7 g/dL Normal 6.4-8.9 [facility] Comment on above: Performed By: #### L IPASE, PT, CBC, HEPATIC, BMP, PTT #### [facility] [address] [place] [address] Prothrombin time (PT)Ordered By: Yaritza Bauer on 02-18-2025 PT Coag (PPP) [Time] Prothrombin time (PT) 9.0- 12.9 [facility] Comment on above: A hematocrit value g reater than 55% may lead to inaccurate results in coagulation testing. Patients having hematocrit values >55% require a special collection tube for coagulation studies. Please contact the laboratory at [phone] for redraw instructions. PT Coag (PPP) [Time] 12.3 s Normal 9.0-12.9 [facility] Comment on above: A hematocrit value g reater than 55% may lead to inaccurate results in coagulation testing. Patients having hematocrit values >55% require a special collection tube for coagulation studies. Please contact the laboratory at [phone] for redraw instructions. Result Comment: A he matocrit value greater than 55% may lead to inaccurate results in coagulation testing. Patients having hematocrit values >55% require a special collection tube for coagulation studies. Please contact the laboratory at [phone] for redraw instructions. Performed By: #### F S #### [facility] [address] [place] [address] #### GCCHLAMAMP #### [facility] , RBC Auto (Bld) [#/Vol]Ordere d By: Yaritza Bauer on 02-18-2025 RBC (Bld) [#/Vol] Erythrocytes [#/volu me] in Blood by Automated count 3.60-5.00 [facility] Serum globulin measurement b y calculation (mass/volume)Ordered By: Yaritza Bauer on 02-18-2025 Globulin (S) [Mass/Vol] 2.4 g/dL Normal [facility] Comment on above: Performed By: #### L IPASE, PT, CBC, HEPATIC, BMP, PTT #### [facility] [address] [place] [address] Serum or plasma albumin/glob ulin mass ratioOrdered By: Yaritza Bauer on 02-18-2025 Albumin/Globulin [Mass ratio] Serum or plasma albumin/globulin mass ratio [facility] Albumin/Globulin [Mass ratio] 1.8 {ratio} Normal [facility] Comment on above: Performed By: #### L IPASE, PT, CBC, HEPATIC, BMP, PTT #### [facility] [address] [place] [address] Serum or plasma anion gap de terminationOrdered By: Yaritza Bauer on 02-18-2025 Anion gap [Moles/Vol] Serum or plasma an ion gap determination 6.0-15.0 [facility] Anion gap [Moles/Vol] 8.7 mmol/L Normal 6.0-15.[address] [facility] Comment on above: Performed By: #### F S #### [facility] [address] [place] [address] #### GCCHLAMAMP #### [facility] , Serum or plasma non-glucuron idated bilirubin measurement (mass/volume)Ordered By: Yaritza Bauer on 02-18-2025 Bilirubin.indirect [Mass/Vol] Serum or plasma non-glucuronidated bilirubin measurement (mass/volume) [facility] Bilirubin.indirect [Mass/Vol] 0.8 mg/dL [facility] Sodium [Moles/volume] in Ser um or PlasmaOrdered By: Yaritza Bauer on 02-18-2025 Sodium [Moles/Vol] Sodium [Moles/volume ] in Serum or Plasma 136-145 [facility] Sodium [Moles/Vol] 137 mmol/L Normal 136-145 [facility] Comment on above: Performed By: #### F S #### [facility] [address] [place] [address] #### GCCHLAMAMP #### [facility] , Specific gravity Test strip (U) [Rel density]Ordered By: Yaritza Bauer on 02-18-2025 Specific gravity (U) [Rel density] Specific gravity of Urine by Test strip 1.001-1.03 0 [facility] Specific gravity (U) [Rel density] 1.021 1.001-1.03 0 [facility] Trichomonas vaginalis detect ion by wet preparationOrdered By: Yaritza Bauer on 02-18-2025 T. vaginalis Wet prep Ql (Unsp spec) Trichomonas vaginalis detection by wet preparation [facility] T. vaginalis Wet prep Ql (Unsp spec) [facility] US OB transvaginalon 025 US OB transvaginal [facility] [place] [address] [place] [address] Ultrasound Report Signed Patient: Charis Allen MR#: [id number] : 2000 Acct:[id number] Age/Sex: 24 / F ADM Date: 02/18/25 Loc: ER Room: Type: [facility] ER Attending Dr: Ordering Provider: Yaritza Bauer APRN Date of Service: 02/18/25 US/US OB <= 14 weeks fetus: Abdominal Pain ([id number]) US/US OB transvaginal: R/O ECTOPIC Copies to: [...] Camacho M.D. 02/18/2025 8:45 PM [facility] Tech: Roselia Cueva Transcribed By: REMINGTON 02/18/252044 Dictated By: Michael Camacho DO 02/18/252034 Signed By: 02/18/252044 Normal [facility] Urea nitrogen [Mass/volume] in Serum or PlasmaOrdered By: Yaritza Bauer on 02-18-2025 Urea nitrogen [Mass/Vol] Urea nitrogen [Mass/volume] in Serum or Plasma 05-02 [facility] Urea nitrogen [Mass/Vol] 13 mg/dL Normal 05-02 [facility] Comment on above: Performed By: #### F S #### [place] [address] [place] #### GCCHLAMAMP #### [facility] , Urinalysison 02-18-2025 Bilirubin,Urine Negative Normal Negative [facility] Comment on above: Order Comment: Name Collection Type:: Clean-Voided Midstream Performed By: #### U HCG, UA #### [address] Glucose Ql (U) Normal Normal Normal [facility] Comment on above: Order Comment: Name Collection Type:: Clean-Voided Midstream Performed By: #### U HCG, UA #### [place] [address] [place] Nitrite,Urine Negative Normal Negative [facility] Comment on above: Order Comment: Name Collection Type:: Clean-Voided Midstream Performed By: #### U HCG, UA #### [place] [address] [place] Occult Blood,Urine Negative Normal Negative [facility] Comment on above: Order Comment: Name Collection Type:: Clean-Voided Midstream Performed By: #### U HCG, UA #### [place] [address] [place] Protein,Urine Negative Normal Negative [facility] Comment on above: Order Comment: Name Collection Type:: Clean-Voided Midstream Performed By: #### U HCG, UA #### [place] [address] [place] Specificy [place],Urine 1.021 Normal 1.00 1-1.03 0 [facility] Comment on above: Order Comment: Name Collection Type:: Clean-Voided Midstream Performed By: #### U HCG, UA #### [facility] [address] [place] [id number] [facility] Urobilinogen,Urine Normal Normal Normal [facility] Comment on above: Order Comment: Name Collection Type:: Clean-Voided Midstream Performed By: #### U HCG, UA #### [facility] [address] [place] [id number] [facility] Urobilinogen Test strip (U) [Mass/Vol]Ordered By: Yaritza Bauer on 02-18-2025 Urobilinogen (U) [Mass/Vol] Urobilinogen [Mass/volume] in Urine by Test strip Normal [facility] Urobilinogen (U) [Mass/Vol] Normal mg/dL Normal [facility] WBC Auto (Bld) [#/Vol]Ordere d By: Yaritza Bauer on 02-18-2025 WBC (Bld) [#/Vol] Leukocytes [#/volume ] in Blood by Automated count 3.8-11.6 [facility] aPTT in Platelet poor plasma by Coagulation assayOrdered By: Yaritza Bauer on 02-18-2025 aPTT Coag (PPP) [Time] Activated partial thromboplastin time (aPTT) in platelet poor plasma by coagulation a 25.1-36.5 [facility] Comment on above: A hematocrit value g reater than 55% may lead to inaccurate results in coagulation testing. Patients having hematocrit values >55% require a special collection tube for coagulation studies. Please contact the laboratory at [phone] for redraw instructions. aPTT Coag (PPP) [Time] 29.3 s 25.1-36.5 [facility] Comment on above: A hematocrit value g reater than 55% may lead to inaccurate results in coagulation testing. Patients having hematocrit values >55% require a special collection tube for coagulation studies. Please contact the laboratory at [phone] for redraw instructions. pH Test strip (U)Ordered By: Yaritza Bauer on 02-18-2025 pH (U) pH of Urine by Test strip 5.0-9.0 [facility] pH of Urine by Test stripOrd ered By: Yaritza Bauer on 02-18-2025 pH (U) 6.5 [pH] Normal 5.0-9.0 [facility] Comment on above: Order Comment: Name Collection Type:: Clean-Voided Midstream Performed By: #### U HCG, UA #### [facility] [address] [id number] [facility] CBC with Auto Differentialon 01-11-2025 Basophils (Bld) [#/Vol] 0.03 10*3/uL [facility] Basophils/100 WBC (Bld) 1 % 0 - 2 % B on [facility] Eosinophils (Bld) [#/Vol] 0.03 10*3/uL [facility] Eosinophils/100 WBC (Bld) 1 % 0 - 5 % [facility] Erythrocyte distribution width (RBC) [Ratio] 12.1 % 12.1 - 15.2 % [facility] Hematocrit (Bld) [Volume fraction] 40.6 % 36.0 - 46.0 % [facility] Hemoglobin (Bld) [Mass/Vol] 13.9 g/dL 12.0 - 16.0 g/dL [facility] Immature granulocytes (Bld) [#/Vol] 0 10*3/uL [facility] Immature granulocytes/100 WBC (Bld) 0 % 0 - 5 % [facility] Interpretation and review of laboratory results Abnormal [facility] Lymphocytes/100 WBC (Bld) 30 % 15 - 40 % [facility] Lymphocytes/100 WBC (Bld) 1.94 % [facility] MCH (RBC) [Entitic mass] 31.3 pg 26.0 - 34.0 pg [facility] MCHC (RBC) [Mass/Vol] 34.2 g/dL 31.0 - 37.0 g/dL [facility] MCV (RBC) [Entitic vol] 91.4 fL 80.0 - 100.0 fL [facility] Monocytes/100 WBC (Bld) 9 % High 4 - 8 % B on [facility] Monocytes/100 WBC (Bld) 0.59 % B on [facility] Neutrophils/100 WBC (Bld) 59 % 47 - 75 % [facility] Platelet mean volume (Bld) [Entitic vol] 9.8 fL 6.0 - 12.0 fL [facility] Platelets (Bld) [#/Vol] 202 10*3/uL [facility] RBC (Bld) [#/Vol] 4.44 10*6/uL 4.00 - 5.20 m/uL [facility] Segmented neutrophils/100 WBC (Bld) 3.92 % [facility] WBC other (Bld) [#/Vol] 6.5 B on [facility] CBC with Diffon 01-11-2025 Abs. Basophil 0.03 k/uL Normal 0.00-0.20 [facility] Comment on above: Performed By: #### C DP, HCG, CP #### [facility] [address] [place] [address] [employer] Machine Operator: Caden Brown MD Abs.Imm.Granulocyte 0.00 k/uL Normal 0.00-0.30 [facility] Comment on above: Performed By: #### C DP, HCG, CP #### [facility] [address] [place] [address] [employer] Machine Operator: Caden Brown MD Abs.Neutrophil (Seg) 3.92 k/uL Normal 2.5-7.0 [facility] Comment on above: Performed By: #### C DP, HCG, CP #### [facility] [address] [place] [address] [employer] Machine Operator: Caden Brown MD Basophils/100 WBC (Bld) 1 % Normal 0-2 [facility] Comment on above: Performed By: #### C DP, HCG, CP #### [facility] [address] [place] [address] [employer] Machine Operator: Caden Borwn MD Eosinophils (Bld) [#/Vol] 0.03 10*3/uL Normal 0.00-0.40 [facility] Comment on above: Performed By: #### C DP, HCG, CP #### [facility] [address] [phone] [employer] Operator: Caden Brown MD Eosinophils/100 WBC (Bld) 1 % Normal 0-5 [facility] Comment on above: Performed By: #### C DP, HCG, CP #### [facility] [address] [place] [address] [employer] Machine Operator: Caden Brown MD Erythrocyte distribution width (RBC) [Ratio] 12.1 % Normal 12.1-15.2 [facility] Comment on above: Performed By: #### C DP, HCG, CP #### [facility] [address] [place] [address] [employer] Machine Operator: Caden Brown MD Hematocrit (Bld) [Volume fraction] 40.6 % Normal 36.0-46.0 [facility] Comment on above: Performed By: #### C DP, HCG, CP #### [facility] [address] [place] [address] [employer] Machine Operator: Caden Brown MD Hemoglobin (Bld) [Mass/Vol] 13.9 g/dL Normal 12.0-16.0 [facility] Comment on above: Performed By: #### C DP, HCG, CP #### [facility] [address] [place] [address] [employer] Machine Operator: Caden Brown MD Immature granulocytes/100 WBC (Bld) 0 % Normal 0-5 [facility] Comment on above: Performed By: #### C DP, HCG, CP #### [facility] [address] [place] [address] [employer] Machine Operator: Caden Brown MD Lymphocytes (Bld) [#/Vol] 1.94 10*3/uL Normal 1.00-4.80 [facility] Comment on above: Performed By: #### C DP, HCG, CP #### [facility] [address] [place] [address] [employer] Machine Operator: Caden Brown MD Lymphocytes/100 WBC (Bld) 30 % Normal 15-40 [facility] Comment on above: Performed By: #### C DP, HCG, CP #### [facility] [address] [place], [place] [phone] [employer] Operator: Caden Brown MD MCH (RBC) [Entitic mass] 31.3 pg Normal 26.0-34.0 [facility] Comment on above: Performed By: #### C DP, HCG, CP #### [facility] [address] [place] [address] [employer] Machine Operator: Caden Brown MD MCHC (RBC) [Mass/Vol] 34.2 g/dL Normal 31.0-37.0 [facility] Comment on above: Performed By: #### C DP, HCG, CP #### [facility] [address] [phone] [employer] Operator: Caden Brown MD MCV (RBC) [Entitic vol] 91.4 fL Normal 80.0-100.0 [facility] Comment on above: Performed By: #### C DP, HCG, CP #### [facility] [address] [place] [address] [employer] Machine Operator: Caden Brown MD Monocytes (Bld) [#/Vol] 0.59 10*3/uL Normal 0.00-1.00 [facility] Comment on above: Performed By: #### C DP, HCG, CP #### [facility] [address] [place] [address] [employer] Machine Operator: Caden Brown MD Monocytes/100 WBC (Bld) 9 % High 4-8 [facility] Comment on above: Performed By: #### C DP, HCG, CP #### [facility] [address] [phone] Nicking Machine Operator: Caden Brown MD Neutrophil (Seg) 59 % Normal 47-75 [facility] Comment on above: Performed By: #### C DP, HCG, CP #### [facility] [address] [place] [address] [employer]icking Machine Operator: Caden Brown MD Platelet mean volume (Bld) [Entitic vol] 9.8 fL Normal 6.0-12.0 [facility] Comment on above: Performed By: #### C DP, HCG, CP #### [facility] [address] [place] [address] [employer] Machine Operator: Caden Brown MD Platelets (Bld) [#/Vol] 202 10*3/uL Normal 140-450 [facility] Comment on above: Performed By: #### C DP, HCG, CP #### [facility] [address] [place] [address] [employer] Machine Operator: Caden Brown MD RBC (Bld) [#/Vol] 4.44 10*6/uL Normal 4.00-5.20 [facility] Comment on above: Performed By: #### C DP, HCG, CP #### [facility] [address] [phone] [employer] Machine Operator: Caden Brown MD WBC (Bld) [#/Vol] 6.5 10*3/uL Normal 3.5-11.0 [facility] Comment on above: Performed By: #### C DP, HCG, CP #### [facility] [address] [place] [address] [employer] Operator: Caden Brown MD CMPon 01-11-2025 Albumin [Mass/Vol] 4.5 g/dL 3.5 - 5.2 g/dL [facility] Albumin/Globulin [Mass ratio] 1.9 {ratio} 1.0 - 2.5 [facility] ALP [Catalytic activity/Vol] 78 U/L 35 - 104 U/L [facility] ALT [Catalytic activity/Vol] 22 U/L 5 - 33 U/L [facility] Anion gap [Moles/Vol] 10 mmol/L 9 - 17 mmol/L [facility] AST [Catalytic activity/Vol] 26 U/L NINF - 32 U/L [facility] Bilirubin [Mass/Vol] 1 mg/dL 0.3 - 1 .2 mg/dL [facility] Calcium [Mass/Vol] 9.2 mg/dL 8.6 - 10. 4 mg/dL [facility] Chloride [Moles/Vol] 102 mmol/L 98 - 10 7 mmol/L [facility] CO2 [Moles/Vol] 26 mmol/L 20 - 31 mmol/L [facility] Creatinine [Mass/Vol] 0.8 mg/dL 0.5 - 0.9 mg/dL [facility] Est, Glom Filt Rate - PINF [facility] Comment on above: These results are not [...] [Mass/Vol] 90 mg/dL 70 - 99 mg/dL [facility] Interpretation and review of laboratory results Abnormal [facility] Potassium [Moles/Vol] 3.5 mmol/L Low 3.7 - 5.3 mmol/L [facility] Protein [Mass/Vol] 6.9 g/dL 6.4 - 8.3 g/dL [facility] Sodium [Moles/Vol] 138 mmol/L 135 - 144 mmol/L [facility] Urea nitrogen [Mass/Vol] 9 mg/dL 6 - 20 mg/dL [facility] Comp Metabolic Profon 2024 Albumin [Mass/Vol] 4.5 g/dL Normal 3.5-5.2 [facility] Comment on above: Performed By: #### C DP, HCG, CP #### [facility] [address] [place], [place] [phone] [employer] Machine Operator: Caden Brown MD Albumin/Glob Ratio 1.9 Normal 1.0-2.5 [facility] Comment on above: Performed By: #### C DP, HCG, CP #### [facility] [address] [place] [address] [employer] Machine Operator: Caden Brown MD Alkaline Phos 78 U/L Normal 35-104 [facility] Comment on above: Performed By: #### C DP, HCG, CP #### [facility] [address] [place] [address] [employer] Machine Operator: Caden Brown MD ALT [Catalytic activity/Vol] 22 U/L Normal 5-33 [facility] Comment on above: Performed By: #### C DP, HCG, CP #### [facility] [address] [place] [address] [employer] Machine Operator: Caden Brown MD Anion gap [Moles/Vol] 10 mmol/L Normal 9-17 [facility] Comment on above: Performed By: #### C DP, HCG, CP #### [facility] [address] [place] [address] [employer] Machine Operator: Caden Brown MD AST [Catalytic activity/Vol] 26 U/L Normal <32 [facility] Comment on above: Performed By: #### C DP, HCG, CP #### [facility] [address] [place] [address] [employer] Machine Operator: Caden Brown MD Bilirubin [Mass/Vol] 1.0 mg/dL Normal 0.3-1.2 [facility] Comment on above: Performed By: #### C DP, HCG, CP #### [facility] [address] [place] [address] [employer] Machine Operator: Caden Brown MD Calcium [Mass/Vol] 9.2 mg/dL Normal 8.6-10.4 [facility] Comment on above: Performed By: #### C DP, HCG, CP #### [facility] [address] [place], [place] [id number] [employer] Machine Operator: Caden Brown MD Chloride [Moles/Vol] 102 mmol/L Normal 98-107 [facility] Comment on above: Performed By: #### C DP, HCG, CP #### [facility] [address] [place] [address] [employer] Machine Operator: Caden Brown MD CO2 [Moles/Vol] 26 mmol/L Normal 20-31 [facility] Comment on above: Performed By: #### C DP, HCG, CP #### [facility] [address] [phone] [employer] Machine Operator: Caden Brown MD Creatinine [Mass/Vol] 0.8 mg/dL Normal 0.5-0.9 [facility] Comment on above: Performed By: #### C DP, HCG, CP #### [facility] [address] [place] [address] [employer] Machine Operator: Caden Brown MD GFR/1.73 sq M.predicted among non-blacks MDRD (S/P/Bld) [Vol rate/Area] mL/min/{1.73_m2} Normal >60 [facility] Comment on above: Result Comment: These [...] By: #### C DP, HCG, CP #### [facility] [address] [phone] [employer] Machine Operator: Caden Brown MD Glucose [Mass/Vol] 90 mg/dL Normal 70-99 [facility] Comment on above: Performed By: #### C DP, HCG, CP #### [facility] [address] [place], [place] [phone] [employer] Machine Operator: Caden Brown MD Potassium [Moles/Vol] 3.5 mmol/L Low 3.7-5.3 [facility] Comment on above: Performed By: #### C DP, HCG, CP #### [facility] [address] [place], [place] [phone] [employer] Machine Operator: Caden Brown MD Protein [Mass/Vol] 6.9 g/dL Normal 6.4-8.3 [facility] Comment on above: Performed By: #### C DP, HCG, CP #### [facility] [address] [place], [place] [phone] [employer] Machine Operator: Caden Brown MD Sodium [Moles/Vol] 138 mmol/L Normal 135-144 [facility] Comment on above: Performed By: #### C DP, HCG, CP #### [facility] [address] [place], [place] [phone] [employer] Machine Operator: Caden Brown MD Urea nitrogen [Mass/Vol] 9 mg/dL Normal 6-20 [facility] Comment on above: Performed By: #### C DP, HCG, CP #### [facility] [address] [place], [place] [phone] [employer] Machine Operator: Caden Brown MD Glucose, Whole Bloodon 01-11 Glucose [Mass/Vol] 108 mg/dL High 65 - 99 mg/dL [facility] Interpretation and review of laboratory results Abnormal [facility] Glucose,Whole Bloodon 2024 Glucose [Mass/Vol] 108 mg/dL High 65-99 [facility] HCG Qualitative, Serumon HCG ( test) Ql Negative NEGATIVE B on [facility] Comment on above: Specimens with hCG l evels near the threshold of the test (25 mIU/mL) may give a negative or indeterminate result. In such cases, another test should be performed with a new specimen in 48-72 hours. If early is suspected clinically in this setting, correlation with quantitative serum b-hCG level is suggested. [facility] has confirmed the use of plasma for this test. This has not been cleared or approved by the U.S. Food and Drug Administration. The FDA has determined that such clearance is not necessary. [facility] HCG Screen, Bloodon 01-12-20 25 HCG Screen, Blood Negative Normal NEG [facility] Comment on above: Result Comment: Spec imens with hCG levels near the threshold of the test (25 mIU/mL) may give a negative or indeterminate result. In such cases, another test should be performed with a new specimen in 48-72 hours. If early is suspected clinically in this setting, correlation with quantitative serum b-hCG level is suggested. [facility] has confirmed the use of plasma for this test. This has not been cleared or approved by the U.S. Food and Drug Administration. The FDA has determined that such clearance is not necessary. Performed By: #### C DP, HCG, CP #### [facility] [address] [place] [address] Nicking Machine Operator: Caden Brown MD HCG.beta subunit IA 3rd IS Q non 12-13-2024 HCG.beta subunit Qn 384 m[IU]/mL Normal [facility] Comment on above: Result Comment: NEW REFERENCE [...] neoplasms. Performed By: #### 2 0415-6 #### [facility] ([id number]) [address] [place] [address] [place] [address] URINALYSISon 12-13-2024 Bilirubin Ql (U) Negative Normal NEG [facility] Comment on above: Performed By: #### U A #### [facility] ([id number]) [address] [place] [address] BLOOD/HGB Large Abnormal NEG [facility] Comment on above: Performed By: #### U A #### [facility] ([id number]) [address] [place] [address] Color (U) YELLOW Normal YELLOW [facility] Comment on above: Performed By: #### U A #### [facility] ([id number]) [address] [place] [address] Glucose Ql (U) Negative Normal NEG [facility] Comment on above: Performed By: #### U A #### [facility] ([id number]) [address] [place] [address] [place] [address] Ketones Ql (U) Negative Normal NEG [facility] Comment on above: Performed By: #### U A #### [facility] ([id number]) [address] [place] [address] [place] [address] Leukocyte esterase Test strip Ql (U) Negative Normal NEG [facility] Comment on above: Performed By: #### U A #### [facility] ([id number]) [address] [place] [address] [place] [address] Nitrite Ql (U) Negative Normal NEG [facility] Comment on above: Performed By: #### U A #### [facility] ([id number]) [address] [place] [address] pH (U) 7.0 [pH] Normal 5.0-8.5 [facility] Comment on above: Performed By: #### U A #### [facility] ([id number]) [address] [place] [address] Protein Ql (U) Negative Normal NEG [facility] Comment on above: Performed By: #### U A #### [facility] ([id number]) [address] [place] [address] R.B.CELLS 5 /hpf Normal 0-5 [facility] Comment on above: Performed By: #### U A #### [facility] ([id number]) [address] [place] [address] Specific gravity (U) [Rel density] 1.020 Normal 1.003-1.03 5 [facility] Comment on above: Performed By: #### U A #### [facility] ([id number]) [address] [place] [address] SQUAMOUS EPITHELIUM 8 /hpf High 0-5 [facility] Comment on above: Performed By: #### U A #### [facility] ([id number]) [address] [place] [address] TRANSITIONAL EPITH 1 /hpf High 0 [facility] Comment on above: Performed By: #### U A #### [facility] ([id number]) [address] [place] [address] TURBIDITY CLEAR Normal CLEAR [facility] Comment on above: Performed By: #### U A #### [facility] ([id number]) [address] [place] [address] Urobilinogen Qn (U) 0.2 {Ludwig'U}/dL Normal <1.1 [facility] Comment on above: Performed By: #### U A #### [facility] ([id number]) [address] [place] [address] W.B.CELLS 0 /hpf Normal 0-5 [facility] Comment on above: Performed By: #### U A #### [facility] ([id number]) [address] [place] [address] CBC with Auto Differentialon 12-01-2024 Basophils (Bld) [#/Vol] 0.03 10*3/uL [facility] Basophils/100 WBC (Bld) 0 % 0 - 2 % B [facility] Eosinophils (Bld) [#/Vol] 0.04 10*3/uL [facility] Eosinophils/100 WBC (Bld) 1 % 0 - 5 % [facility] Erythrocyte distribution width (RBC) [Ratio] 11.8 % Low 12.1 - 15.2 % [facility] Hematocrit (Bld) [Volume fraction] 38.2 % 36.0 - 46.0 % [facility] Hemoglobin (Bld) [Mass/Vol] 13.0 g/dL 12.0 - 16.0 g/dL [facility] Immature granulocytes (Bld) [#/Vol] 0.01 10*3/uL [facility] Immature granulocytes/100 WBC (Bld) 0 % 0 - 5 % [facility] Interpretation and review of laboratory results Abnormal [facility] Lymphocytes/100 WBC (Bld) 24 % 15 - 40 % [facility] Lymphocytes/100 WBC (Bld) 1.98 % [facility] MCH (RBC) [Entitic mass] 30.9 pg 26.0 - 34.0 pg [facility] MCHC (RBC) [Mass/Vol] 34.0 g/dL 31.0 - 37.0 g/dL [facility] MCV (RBC) [Entitic vol] 90.7 fL 80.0 - 100.0 fL [facility] Monocytes/100 WBC (Bld) 10 % High 4 - 8 % B on [facility] Monocytes/100 WBC (Bld) 0.80 % B on [facility] Neutrophils/100 WBC (Bld) 65 % 47 - 75 % [facility] Platelet mean volume (Bld) [Entitic vol] 9.3 fL 6.0 - 12.0 fL [facility] Platelets (Bld) [#/Vol] 238 10*3/uL [facility] RBC (Bld) [#/Vol] 4.21 10*6/uL 4.00 - 5.20 m/uL [facility] Segmented neutrophils/100 WBC (Bld) 5.44 % [facility] WBC other (Bld) [#/Vol] 8.3 B on [facility] CBC with Diffon 12-01-2024 Abs. Basophil 0.03 k/uL Normal 0.00-0.20 [facility] Comment on above: Performed By: #### C DP, CP #### [facility] [address] [place] [address] [employer]icking Machine Operator: Caden Brown MD Abs.Imm.Granulocyte 0.01 k/uL Normal 0.00-0.30 [facility] Comment on above: Performed By: #### C DP, CP #### [facility] [address] [place] [address] Nicking Machine Operator: Caden Brown MD Abs.Neutrophil (Seg) 5.44 k/uL Normal 2.5-7.0 [facility] Comment on above: Performed By: #### C DP, CP #### [facility] [address] [place] [address] N[employer] Machine Operator: Caden Brown MD Basophils/100 WBC (Bld) 0 % Normal 0-2 [facility] Comment on above: Performed By: #### C DP, CP #### [facility] [address] [place] [address] [employer] Machine Operator: Caden Brown MD Eosinophils (Bld) [#/Vol] 0.04 10*3/uL Normal 0.00-0.40 [facility] Comment on above: Performed By: #### C DP, CP #### [facility] [address] [place], [place] [phone] N[employer] Machine Operator: Caedn Brown MD Eosinophils/100 WBC (Bld) 1 % Normal 0-5 [facility] Comment on above: Performed By: #### C DP, CP #### [facility] [address] [place] [address] [employer]icking Machine Operator: Caden Brown MD Erythrocyte distribution width (RBC) [Ratio] 11.8 % Low 12.1-15.2 [facility] Comment on above: Performed By: #### C DP, CP #### [facility] [address] [place] [phone] [employer] Machine Operator: Caden Brown MD Hematocrit (Bld) [Volume fraction] 38.2 % Normal 36.0-46.0 [facility] Comment on above: Performed By: #### C DP, CP #### [facility] [address] [place], [place] [phone] N[employer] Machine Operator: Caden Brown MD Hemoglobin (Bld) [Mass/Vol] 13.0 g/dL Normal 12.0-16.0 [facility] Comment on above: Performed By: #### C DP, CP #### [facility] [address] [place] [address] Nicking Machine Operator: Caden Brown MD Immature granulocytes/100 WBC (Bld) 0 % Normal 0-5 [facility] Comment on above: Performed By: #### C DP, CP #### [facility] [address] [place], [place] [phone] Nicking Machine Operator: Caden Brown MD Lymphocytes (Bld) [#/Vol] 1.98 10*3/uL Normal 1.00-4.80 [facility] Comment on above: Performed By: #### C DP, CP #### [facility] [address] [place] [address] N[employer] Machine Operator: Caden Brown MD Lymphocytes/100 WBC (Bld) 24 % Normal 15-40 [facility] Comment on above: Performed By: #### C DP, CP #### [facility] [address] [place] [address] Nicking Machine Operator: Caden Brown MD MCH (RBC) [Entitic mass] 30.9 pg Normal 26.0-34.0 [facility] Comment on above: Performed By: #### C DP, CP #### [facility] [address] [phone] [employer] Machine Operator: Caden Brown MD MCHC (RBC) [Mass/Vol] 34.0 g/dL Normal 31.0-37.0 [facility] Comment on above: Performed By: #### C DP, CP #### [facility] [address] [phone] [employer] Machine Operator: Caden Brown MD MCV (RBC) [Entitic vol] 90.7 fL Normal 80.0-100.0 [facility] Comment on above: Performed By: #### C DP, CP #### [facility] [address] [phone] [employer] Operator: Caden Brown MD Monocytes (Bld) [#/Vol] 0.80 10*3/uL Normal 0.00-1.00 [facility] Comment on above: Performed By: #### C DP, CP #### [facility] [address] [place] [address] [employer] Machine Operator: Caden Brown MD Monocytes/100 WBC (Bld) 10 % High 4-8 [facility] [facility] Comment on above: Performed By: #### C DP, CP #### [facility] Lab [address] [place] [address] [employer]icking Machine Operator: Caden Brown MD Neutrophil (Seg) 65 % Normal 47-75 [facility] Comment on above: Performed By: #### C DP, CP #### [facility] Lab [address] [place] [address] (455) Nicking Machine Operator: Caden Brown MD Platelet mean volume (Bld) [Entitic vol] 9.3 fL Normal 6.0-12.0 [facility] Comment on above: Performed By: #### C DP, CP #### [facility] Lab [address] [place] [address] (917) Nicking Machine Operator: Caden Brown MD Platelets (Bld) [#/Vol] 238 10*3/uL Normal 140-450 [facility] Comment on above: Performed By: #### C DP, CP #### [facility] Lab [address] [place] [address] (026) Nicking Machine Operator: Caden Brown MD RBC (Bld) [#/Vol] 4.21 10*6/uL Normal 4.00-5.20 [facility] Comment on above: Performed By: #### C DP, CP #### [facility] Lab [address] [place] [address] (815) Nicking Machine Operator: Caden Brown MD WBC (Bld) [#/Vol] 8.3 10*3/uL Normal 3.5-11.0 [facility] Comment on above: Performed By: #### C DP, CP #### [facility] Lab [address] [place] [address] (906) Nicking Machine Operator: Caden Brown MD Comp Metabolic Profon 2024 Albumin [Mass/Vol] 4.2 g/dL Normal 3.5-5.2 [facility] Comment on above: Performed By: #### C DP, CP #### [facility] Lab [address] [place], [place] [id number] [employer]icking Machine Operator: Caden Brown MD Albumin/Glob Ratio 1.8 Normal 1.0-2.5 [facility] Comment on above: Performed By: #### C DP, CP #### [facility] Lab [address] [place], [place] [id number] [employer]icking Machine Operator: Caden Brown MD Alkaline Phos 61 U/L Normal 35-104 [facility] Comment on above: Performed By: #### C DP, CP #### [facility] Lab [address] [place], [place] [id number] [employer] Machine Operator: Caden Brown MD ALT [Catalytic activity/Vol] 27 U/L Normal 5-33 [facility] Comment on above: Performed By: #### C DP, CP #### [facility] [address] [place] [address] [employer] Machine Operator: Cadne Brown MD Anion gap [Moles/Vol] 10 mmol/L Normal 9-17 [facility] Comment on above: Performed By: #### C DP, CP #### [facility] [address] [place] [address] [employer]icking Machine Operator: Caden Brown MD AST [Catalytic activity/Vol] 24 U/L Normal <32 [facility] Comment on above: Performed By: #### C DP, CP #### [facility] [address] [place] [address] [employer] Machine Operator: Caden Brown MD Bilirubin [Mass/Vol] 1.2 mg/dL Normal 0.3-1.2 [facility] Comment on above: Performed By: #### C DP, CP #### [facility] [address] [place] [address] Nicking Machine Operator: Caden Brown MD Calcium [Mass/Vol] 9.1 mg/dL Normal 8.6-10.4 [facility] Comment on above: Performed By: #### C DP, CP #### [facility] [address] [place], [place] [phone] Nicking Machine Operator: Caden Brown MD Chloride [Moles/Vol] 105 mmol/L Normal 98-107 [facility] Comment on above: Performed By: #### C DP, CP #### [facility] [address] [place], [place] [id number] Nicking Machine Operator: Caden Brown MD CO2 [Moles/Vol] 24 mmol/L Normal 20-31 [facility] Comment on above: Performed By: #### C DP, CP #### [facility] [address] [place], [place] [id number] Nicking Machine Operator: Caden Brown MD Creatinine [Mass/Vol] 0.7 mg/dL Normal 0.5-0.9 [facility] Comment on above: Performed By: #### C DP, CP #### [facility] [address] [place] [address] N[employer] Machine Operator: Caden Brown MD GFR/1.73 sq M.predicted among non-blacks MDRD (S/P/Bld) [Vol rate/Area] mL/min/{1.73_m2} Normal >60 [facility] Comment on above: Result Comment: These [...] Performed By: #### C DP, CP #### [facility] [address] [place], [place] [id number] Nicking Machine Operator: Caden Brown MD Glucose [Mass/Vol] 64 mg/dL Low 70-99 [facility] Comment on above: Performed By: #### C DP, CP #### [facility] Lab [address] [place], [place] [phone] Nicking Machine Operator: Caden Brown MD Potassium [Moles/Vol] 3.6 mmol/L Low 3.7-5.3 [facility] Comment on above: Performed By: #### C DP, CP #### [facility] [address] [place], [place] [phone] Nicking Machine Operator: Caden Brown MD Protein [Mass/Vol] 6.5 g/dL Normal 6.4-8.3 [facility] Comment on above: Performed By: #### C DP, CP #### [facility] [address] [place], [place] [phone] Nicking Machine Operator: Caden Brown MD Sodium [Moles/Vol] 139 mmol/L Normal 135-144 [facility] Comment on above: Performed By: #### C DP, CP #### [facility] [address] [place] [address] Nicking Machine Operator: Caden Brown MD Urea nitrogen [Mass/Vol] 15 mg/dL Normal 6-20 [facility] Comment on above: Performed By: #### C DP, CP #### [facility] [address] [place] [address] Nicking Machine Operator: Caden Brown MD Comprehensive Metabolic Pane [facility] 12-01-2024 Albumin [Mass/Vol] 4.2 g/dL 3.5 - 5.2 g/dL [facility] Albumin/Globulin [Mass ratio] 1.8 {ratio} 1.0 - 2.5 [facility] ALP [Catalytic activity/Vol] 61 U/L 35 - 104 U/L [facility] ALT [Catalytic activity/Vol] 27 U/L 5 - 33 U/L [facility] Anion gap [Moles/Vol] 10 mmol/L 9 - 17 mmol/L [facility] AST [Catalytic activity/Vol] 24 U/L NINF - 32 U/L [facility] Bilirubin [Mass/Vol] 1.2 mg/dL 0.3 - 1 .2 mg/dL [facility] Calcium [Mass/Vol] 9.1 mg/dL 8.6 - 10. 4 mg/dL [facility] Chloride [Moles/Vol] 105 mmol/L 98 - 10 7 mmol/L [facility] CO2 [Moles/Vol] 24 mmol/L 20 - 31 mmol/L [facility] Creatinine [Mass/Vol] 0.7 mg/dL 0.5 - 0.9 mg/dL [facility] Est, Glom Filt Rate - PINF [facility] Comment on above: These results are not [...] 64 mg/dL Low 70 - 99 mg/dL [facility] Interpretation and review of laboratory results Abnormal [facility] Potassium [Moles/Vol] 3.6 mmol/L Low 3.7 - 5.3 mmol/L [facility] Protein [Mass/Vol] 6.5 g/dL 6.4 - 8.3 g/dL [facility] Sodium [Moles/Vol] 139 mmol/L 135 - 144 mmol/L [facility] Urea nitrogen [Mass/Vol] 15 mg/dL 6 - 20 mg/dL [facility] HCG, Quanton 12-01-2024 HCG, Quant 1440.0 mIU/mL High <5 [facility] Comment on above: Result Comment: Non-preg premeno <=5 Postmeno <=8 Male <=3 If HCG results do not concur with clinical observations, additional testing to confirm results is recommended. Performed By: #### B HCG ####[facility] [id number] [place] [address] lab Director: Caden Brown MD HCG, Quantitative, on 12-01-2024 HCG.beta subunit Qn 1440.0 m[IU]/mL High NINF [facility] Comment on above: Non-preg premeno <=5 Postmeno <=8 Male <=3 If HCG results do not concur with clinical observations, additional testing to confirm results is recommended. Interpretation and review of laboratory results Abnormal [facility] Urinalysison 12-01-2024 Bilirubin Ql (U) Negative NEGATIVE [facility] Clarity (U) Clear Clear [facility] Color (U) Yellow Yellow [facility] Comment [facility] Glucose Test strip (U) [Mass/Vol] Negative NEGATIVE mg/dL [facility] Hemoglobin Auto test strip Ql (U) Negative NEGATIVE [facility] Ketones (U) [Mass/Vol] Negative NEGAT WOODY mg/dL [facility] Leukocyte esterase Test strip Ql (U) Negative NEGATIVE [facility] Nitrite Ql (U) Negative NEGATIVE [facility] pH (U) 8.0 [pH] 5.0 - 8.0 [facility] Protein (U) [Mass/Vol] Negative NEGAT WOODY mg/dL [facility] Specific gravity (U) [Rel density] 1.015 1.005 - 1.030 [facility] Urobilinogen Qn (U) Normal 0.0 - 1. 0 EU/dL [facility] Urinalysis, Routineon 2024 Bilirubin, SemiQt,Ur Negative Normal NEG [facility] Comment on above: Performed By: #### U A ####[facility] [id number] [place] [address] lab Director: Caden Brown MD Blood, Urine Negative Normal NEG [facility] Comment on above: Performed By: #### U A ####[facility] [id number] [place] [address] lab Director: Caden Brown MD Clarity (U) Clear Normal CLEAR [facility] Comment on above: Performed By: #### U A ####[facility] [id number] [place] [address] lab Director: Caden Brown MD Color (U) Yellow Normal YEL [facility] Comment on above: Performed By: #### U A ####[facility] [id number] [place] [address] lab Director: Caden Brown MD Comment Normal [facility] Comment on above: Performed By: #### U A ####[facility] [id number] [place] [address] lab Director: Caden Brown MD Glucose Ql (U) Negative Normal NEG [facility] Comment on above: Performed By: #### U A ####[facility] [id number] [place] [address] lab Director: Caden Brown MD Ketones Ql (U) Negative Normal NEG [facility] Comment on above: Performed By: #### U A ####[facility] [id number] [place] [address] lab Director: Caden Brown MD Leukocyte esterase Test strip Ql (U) Negative Normal NEG [facility] Comment on above: Performed By: #### U A ####[facility] [id number] [place] [address] lab Director: Caden Brown MD Nitrite,Ur Negative Normal NEG [facility] Comment on above: Performed By: #### U A ####[facility] [id number] [place] [address] lab Director: Caden Brown MD PH,Ur 8.0 Normal 5.0-8.0 [facility] Comment on above: Performed By: #### U A ####[facility] [id number] [place] [address] lab Director: Caden Brown MD Protein Ql (U) Negative Normal NEG [facility] Comment on above: Performed By: #### U A ####[facility] [id number] [facility] [place] [address] lab Director: Caden Brown MD Spec. [place],Ur 1.015 Normal 1.005-1.03 0 [facility] Comment on above: Performed By: #### U A ####[facility] [id number] [facility] [place] [address] lab Director: Caden Brown MD Urobilinogen,Ur Normal Normal 0.0-1.0 [facility] Comment on above: Performed By: #### U A ####[facility] [id number] [facility] [place] [address] lab Director: Caden Brown MD TBH PREG QUANT HCGon 025 HCG QUANTITATIVE 759 mIU/mL [facility] Comment on above: 5-50 0.2-1 WEEK 50-500 1-2 WEEKS 100-5,000 2-3 WEEKS 500-10,000 3-4 WEEKS 1,000-50,000 4-5 WEEKS 10,000-100,000 5-6 WEEKS 15,000-200,000 6-8 WEEKS 10,000-100,000 2-3 [facility] CBC with Auto Differentialon 11-16-2024 Basophils (Bld) [#/Vol] 0.01 10*3/uL [facility] Basophils/100 WBC (Bld) 0 % 0 - 2 % B on [facility] Eosinophils (Bld) [#/Vol] 0.01 10*3/uL [facility] Eosinophils/100 WBC (Bld) 0 % 0 - 5 % [facility] Erythrocyte distribution width (RBC) [Ratio] 12.2 % 12.1 - 15.2 % [facility] Hematocrit (Bld) [Volume fraction] 43.3 % 36.0 - 46.0 % [facility] Hemoglobin (Bld) [Mass/Vol] 14.9 g/dL 12.0 - 16.0 g/dL [facility] Immature granulocytes (Bld) [#/Vol] 0.01 10*3/uL [facility] Immature granulocytes/100 WBC (Bld) 0 % 0 - 5 % [facility] Interpretation and review of laboratory results Abnormal [facility] Lymphocytes/100 WBC (Bld) 15 % 15 - 40 % [facility] Lymphocytes/100 WBC (Bld) 1.82 % [facility] MCH (RBC) [Entitic mass] 31.1 pg 26.0 - 34.0 pg [facility] MCHC (RBC) [Mass/Vol] 34.4 g/dL 31.0 - 37.0 g/dL [facility] MCV (RBC) [Entitic vol] 90.4 fL 80.0 - 100.0 fL [facility] Monocytes/100 WBC (Bld) 4 % 4 - 8 % B on [facility] Monocytes/100 WBC (Bld) 0.43 % B on [facility] Neutrophils/100 WBC (Bld) 81 % High 47 - 75 % [facility] Platelet mean volume (Bld) [Entitic vol] 9.6 fL 6.0 - 12.0 fL [facility] Platelets (Bld) [#/Vol] 243 10*3/uL [facility] RBC (Bld) [#/Vol] 4.79 10*6/uL 4.00 - 5.20 m/uL [facility] Segmented neutrophils/100 WBC (Bld) 9.54 % High [facility] WBC other (Bld) [#/Vol] 11.8 High B on [facility] CBC with Diffon 11-16-2024 Abs. Basophil 0.01 k/uL Normal 0.00-0.20 [facility] Comment on above: Performed By: #### L IP, CP, HCG, CDP, TROPI #### [facility] Lab [address] [place] [phone] [employer] Machine Operator: Caden Brown MD Abs.Imm.Granulocyte 0.01 k/uL Normal 0.00-0.30 [facility] Comment on above: Performed By: #### L IP, CP, HCG, CDP, TROPI #### [facility] Lab [address] [place] [address] [employer] Machine Operator: Caden Brown MD Abs.Neutrophil (Seg) 9.54 k/uL High 2.5-7.0 [facility] Comment on above: Performed By: #### L IP, CP, HCG, CDP, TROPI #### [facility] [address] [place] [address] Nicking Machine Operator: Caden Brown MD Basophils/100 WBC (Bld) 0 % Normal 0-2 [facility] Comment on above: Performed By: #### L IP, CP, HCG, CDP, TROPI #### [facility] [address] [place] [address] [employer] Machine Operator: Caden Brown MD Eosinophils (Bld) [#/Vol] 0.01 10*3/uL Normal 0.00-0.40 [facility] Comment on above: Performed By: #### L IP, CP, HCG, CDP, TROPI #### [facility] [address] [place] [address] N[employer] Machine Operator: Caden Brown MD Eosinophils/100 WBC (Bld) 0 % Normal 0-5 [facility] Comment on above: Performed By: #### L IP, CP, HCG, CDP, TROPI #### [facility] [address] [place] [phone] N[employer] Machine Operator: Caden Brown MD Erythrocyte distribution width (RBC) [Ratio] 12.2 % Normal 12.1-15.2 [facility] Comment on above: Performed By: #### L IP, CP, HCG, CDP, TROPI #### [facility] [address] [place] [address] N[employer] Machine Operator: Caden Brown MD Hematocrit (Bld) [Volume fraction] 43.3 % Normal 36.0-46.0 [facility] Comment on above: Performed By: #### L IP, CP, HCG, CDP, TROPI #### [facility] [address] [place] [phone] [employer] Machine Operator: Caden Brown MD Hemoglobin (Bld) [Mass/Vol] 14.9 g/dL Normal 12.0-16.0 [facility] Comment on above: Performed By: #### L IP, CP, HCG, CDP, TROPI #### [facility] [address] [place] [phone] N[employer] Machine Operator: Caden Brown MD Immature granulocytes/100 WBC (Bld) 0 % Normal 0-5 [facility] Comment on above: Performed By: #### L IP, CP, HCG, CDP, TROPI #### [facility] [address] [place] [phone] N[employer] Machine Operator: Caden Brown MD Lymphocytes (Bld) [#/Vol] 1.82 10*3/uL Normal 1.00-4.80 [facility] Comment on above: Performed By: #### L IP, CP, HCG, CDP, TROPI #### [facility] [address] [place] [address] Nicking Machine Operator: Cadne Brown MD Lymphocytes/100 WBC (Bld) 15 % Normal 15-40 [facility] Comment on above: Performed By: #### L IP, CP, HCG, CDP, TROPI #### [facility] [address] [place] [address] N[employer] Machine Operator: Caden Brown MD MCH (RBC) [Entitic mass] 31.1 pg Normal 26.0-34.0 [facility] Comment on above: Performed By: #### L IP, CP, HCG, CDP, TROPI #### [facility] [address] [place] [address] N[employer] Machine Operator: Caden Brown MD MCHC (RBC) [Mass/Vol] 34.4 g/dL Normal 31.0-37.0 [facility] Comment on above: Performed By: #### L IP, CP, HCG, CDP, TROPI #### [facility] [address] [place] [address] Nicking Machine Operator: Caden Brown MD MCV (RBC) [Entitic vol] 90.4 fL Normal 80.0-100.0 [facility] Comment on above: Performed By: #### L IP, CP, HCG, CDP, TROPI #### [facility] [address] [place] [address] Nicking Machine Operator: Caden Brown MD Monocytes (Bld) [#/Vol] 0.43 10*3/uL Normal 0.00-1.00 [facility] Comment on above: Performed By: #### L IP, CP, HCG, CDP, TROPI #### [facility] [address] [place] [address] Nicking Machine Operator: Caden Brown MD Monocytes/100 WBC (Bld) 4 % Normal 4-8 [facility] Comment on above: Performed By: #### L IP, CP, HCG, CDP, TROPI #### [facility] [address] [place] [address] Nicking Machine Operator: Caden Brown MD Neutrophil (Seg) 81 % High 47-75 [facility] Comment on above: Performed By: #### L IP, CP, HCG, CDP, TROPI #### [facility] [address] [place] [phone] Nicking Machine Operator: Caden Brown MD Platelet mean volume (Bld) [Entitic vol] 9.6 fL Normal 6.0-12.0 [facility] Comment on above: Performed By: #### L IP, CP, HCG, CDP, TROPI #### [facility] [address] [place] [address] Nicking Machine Operator: Caden Brown MD Platelets (Bld) [#/Vol] 243 10*3/uL Normal 140-450 [facility] Comment on above: Performed By: #### L IP, CP, HCG, CDP, TROPI #### [facility] [address] [place] [address] N[employer] Machine Operator: Caden Brown MD RBC (Bld) [#/Vol] 4.79 10*6/uL Normal 4.00-5.20 [facility] Comment on above: Performed By: #### L IP, CP, HCG, CDP, TROPI #### [facility] [address] [place] [address] Nicking Machine Operator: Caden Brown MD WBC (Bld) [#/Vol] 11.8 10*3/uL High 3.5-11.0 [facility] Comment on above: Performed By: #### L IP, CP, HCG, CDP, TROPI #### [facility] [address] [place] [address] Nicking Machine Operator: Caden Brown MD [facility] Albumin [Mass/Vol] 4.5 g/dL 3.5 - 5.2 g/dL [facility] ALP [Catalytic activity/Vol] 80 U/L 35 - 104 U/L [facility] ALT [Catalytic activity/Vol] 17 U/L 5 - 33 U/L [facility] Anion gap [Moles/Vol] 16 mmol/L 9 - 17 mmol/L [facility] AST [Catalytic activity/Vol] 19 U/L NINF - 32 U/L [facility] Bilirubin [Mass/Vol] 1.3 mg/dL High 0.3 - 1 .2 mg/dL [facility] Calcium [Mass/Vol] 9.7 mg/dL 8.6 - 10. 4 mg/dL [facility] Chloride [Moles/Vol] 101 mmol/L 98 - 10 7 mmol/L [facility] CO2 [Moles/Vol] 21 mmol/L 20 - 31 mmol/L [facility] Creatinine [Mass/Vol] 0.7 mg/dL 0.5 - 0.9 mg/dL [facility] EstRadhames Rate - PINF [facility] Comment on above: These results are not [...] [Mass/Vol] 94 mg/dL 70 - 99 mg/dL [facility] Interpretation and review of laboratory results Abnormal [facility] Potassium [Moles/Vol] 3.2 mmol/L Low 3.7 - 5.3 mmol/L [facility] Protein [Mass/Vol] 7.4 g/dL 6.4 - 8.3 g/dL [facility] Sodium [Moles/Vol] 138 mmol/L 135 - 144 mmol/L [facility] Urea nitrogen [Mass/Vol] 15 mg/dL 6 - 20 mg/dL [facility] Urea nitrogen/Creatinine [Mass ratio] 21 mg/mg High 9 - 20 [facility] COVID-19, Rapidon 11-16-2024 SARS-CoV-2 (COVID-19) RdRp gene JANET+probe Ql (Resp) Not detected Not Detected [facility] Comment on above: Rapid NAAT: The specimen [...] Nucleic Acid Amplification Specimen Description .NASOPHARYNGEAL SWAB [facility] CT ABDOMEN PELVIS W IV CONTR Mejia [...] by: Сергей Cobian MD Signed by: Сергей Cboian MD 11/16/24 Final result Normal [facility] CT Abdomen and Pelvis W cont rast [place] 11-16-2024 1. Fluid throughout the lumen of the colon, including in the distal colon and rectum, which may be seen in patients with diarrhea. No bowel obstruction. 2. Otherwise normal CT, following prior appendectomy. No sign of diverticulitis, appendicitis, or other acute inflammatory process. IMPRESSION: [facility] RIS CONSOLIDATED EXAMINATION: CT ABDO MEN PELVIS [...] lymph nodes. No aortic aneurysm or dissection. [facility] CONSOLIDATED Сергей Cobian MD - 11/16/2024 EXAMINATION: [...] appendicitis, or other acute inflammatory process. IMPRESSION: [facility] Radiology Study observation (narrative) [facility] Comp Metabolic Profon 2024 Albumin [Mass/Vol] 4.5 g/dL Normal 3.5-5.2 [facility] Comment on above: Performed By: #### L IP, CP, HCG, CDP, TROPI ####[facility] [id number] [facility] [place] [address] Lab Director: Caden Brown MD Alkaline Phos 80 U/L Normal 35-104 [facility] Comment on above: Performed By: #### L IP, CP, HCG, CDP, TROPI ####[facility] [id number] [facility], [place] [id number] Director: Caden Brown MD ALT [Catalytic activity/Vol] 17 U/L Normal 5-33 [facility] Comment on above: Performed By: #### L IP, CP, HCG, CDP, TROPI ####[facility] [id number] [facility] [place] [address] Lab Director: Caden Brown MD Anion gap [Moles/Vol] 16 mmol/L Normal 9-17 [facility] Comment on above: Performed By: #### L IP, CP, HCG, CDP, TROPI ####[facility] [id number] [facility] [address] Lab Director: Caden Brown MD AST [Catalytic activity/Vol] 19 U/L Normal <32 [facility] Comment on above: Performed By: #### L IP, CP, HCG, CDP, TROPI ####[facility] [id number] [facility] [address] Lab Director: Caden Brown MD Bilirubin [Mass/Vol] 1.3 mg/dL High 0.3-1.2 [facility] Comment on above: Performed By: #### L IP, CP, HCG, CDP, TROPI ####[facility] [id number] [facility] [address] lab Director: Caden Brown MD BUN/CRE Ratio 21 High 9-20 [facility] Comment on above: Performed By: #### L IP, CP, HCG, CDP, TROPI ####[facility] [id number] [facility] [address] lab Director: Caden Brown MD Calcium [Mass/Vol] 9.7 mg/dL Normal 8.6-10.4 [facility] Comment on above: Performed By: #### L IP, CP, HCG, CDP, TROPI ####[facility] [id number] [place] [address] lab Director: Caden Brown MD Chloride [Moles/Vol] 101 mmol/L Normal 98-107 [facility] Comment on above: Performed By: #### L IP, CP, HCG, CDP, TROPI ####[facility] [id number] [facility] [address] lab Director: Caden Brown MD CO2 [Moles/Vol] 21 mmol/L Normal 20-31 [facility] Comment on above: Performed By: #### L IP, CP, HCG, CDP, TROPI ####[facility] [id number] [facility] [address] lab Director: Caden Brown MD Creatinine [Mass/Vol] 0.7 mg/dL Normal 0.5-0.9 [facility] Comment on above: Performed By: #### L IP, CP, HCG, CDP, TROPI ####[facility] [id number] [place] [address] lab Director: Caden Brown MD GFR/1.73 sq M.predicted among non-blacks MDRD (S/P/Bld) [Vol rate/Area] mL/min/{1.73_m2} Normal >60 [facility] Comment on above: Result Comment: These [...] #### L IP, CP, HCG, CDP, TROPI ####[facility] [id number] [place] [address] lab Director: Caden Brown MD Glucose [Mass/Vol] 94 mg/dL Normal 70-99 [facility] Comment on above: Performed By: #### L IP, CP, HCG, CDP, TROPI ####[facility] [id number] [place] [address] lab Director: Caden Brown MD Potassium [Moles/Vol] 3.2 mmol/L Low 3.7-5.3 [facility] Comment on above: Performed By: #### L IP, CP, HCG, CDP, TROPI ####[facility] [id number] [place] [address] lab Director: Caden Brown MD Protein [Mass/Vol] 7.4 g/dL Normal 6.4-8.3 [facility] Comment on above: Performed By: #### L IP, CP, HCG, CDP, TROPI ####[facility] [id number] [place] [address] lab Director: Caden Brown MD Sodium [Moles/Vol] 138 mmol/L Normal 135-144 [facility] Comment on above: Performed By: #### L IP, CP, HCG, CDP, TROPI ####[facility] [id number] [facility] [address] lab Director: Caden Brown MD Urea nitrogen [Mass/Vol] 15 mg/dL Normal 6-20 [facility] Comment on above: Performed By: #### L IP, CP, HCG, CDP, TROPI ####[facility] [id number] [facility] [place] [address] lab Director: Caden Brown MD Flu A/B Ag Detectionon 11-16 Flu A Ag Detection Negative Normal NEG [facility] Comment on above: Result Comment: for Influenza A Antigen Performed By: #### F LUABA ####[facility] [id number] [place] [address] lab Director: Caden Brown MD Flu B Ag Detection Negative Normal NEG [facility] Comment on above: Result Comment: for Influenza B Antigen. Performed By: #### F LUABA ####[facility] [id number] [place] [address] lab Director: Caden Brown MD HCG Qualitative, Serumon HCG ( test) Ql Negative NEGATIVE B on [facility] Comment on above: Specimens with hCG l evels near the threshold of the test (25 mIU/mL) may give a negative or indeterminate result. In such cases, another test should be performed with a new specimen in 48-72 hours. If early is suspected clinically in this setting, correlation with quantitative serum b-hCG level is suggested. [employer] has confirmed the use of plasma for this test. This has not been cleared or approved by the U.S. Food and Drug Administration. The FDA has determined that such clearance is not necessary. [facility] HCG Screen, Bloodon 11-16-19 25 HCG Screen, Blood Negative Normal NEG [facility] Comment on above: Result Comment: Spec imens with hCG levels near the threshold of the test (25 mIU/mL) may give a negative or indeterminate result. In such cases, another test should be performed with a new specimen in 48-72 hours. If early is suspected clinically in this setting, correlation with quantitative serum b-hCG level is suggested. [facility] has confirmed the use of plasma for this test. This has not been cleared or approved by the U.S. Food and Drug Administration. The FDA has determined that such clearance is not necessary. Performed By: #### L IP, CP, HCG, CDP, TROPI ####[facility] [id number] [place] [address] lab Director: Caden Brown MD Lipaseon 11-16-2024 Lipase [Catalytic activity/Vol] 47 U/L 13 - 60 U/L [facility] Lipase [Catalytic activity/Vol] 47 U/L Normal 13-60 [facility] Comment on above: Performed By: #### L IP, CP, HCG, CDP, TROPI ####[facility] [id number] [place] [address] lab Director: Caden Brown MD No Panel Informationon 11-16 [facility] Portable XR Chest AP single viewon 11-16-2024 Normal chest. [facility] RIS CONSOLIDATED CLINICAL HISTORY: Shortness of breath. Chest pain. CHEST PORTABLE AP VIEW: The lungs are clear. No pneumothorax. The pulmonary vascularity and cardiomediastinal silhouette are normal. No acute fracture is seen. [facility] Сергей Cobian MD - 11/16/2024 CLINICAL HISTORY: Shortness of breath. Chest pain. CHEST PORTABLE AP VIEW: The lungs are clear. No pneumothorax. The pulmonary vascularity and cardiomediastinal silhouette are normal. No acute fracture is seen. IMPRESSION: Normal chest. [facility] Radiology Study observation (narrative) [facility] Portable XR Chest AP single viewOrdered By: Сергей Cobian on 11-16-2024 [facility] Work Phone: Rapid influenza A/B antigens on 11-16-2024 FLUAV Ag Ql (Unsp spec) Negative NEGATIVE B on [facility] Comment on above: for Influenza A Anti gen FLUBV Ag Ql (Unsp spec) Negative NEGATIVE B on [facility] Comment on above: for Influenza B Anti gen. [facility] [id number] 11-16-2024 SARS-CoV-2 (COVID-19) RNA JANET+probe Ql (Unsp spec) Not detected Normal NOTDET [facility] Comment on above: Result Comment: Rapid [...] Acid Amplification Performed By: #### C OVRB ####[facility] [address] [facility] [place], [place] [id number] lab Director: Caden Brown MD Troponinon 11-16-2024 Troponin I.cardiac High sensitivity method [Mass/Vol] ng/L 0 - 14 ng/L [facility] Comment on above: High Sensitivity Tro ponin values cannot be compared with other Troponin methodologies. [facility] Troponin, High Sens <6 Normal 0-14 [facility] Comment on above: Result Comment: High Sensitivity Troponin values cannot be compared with other Troponin methodologies. Performed By: #### L IP, CP, HCG, CDP, TROPI ####[facility] [id number] [place], [place] [id number] lab Director: Caden Brown MD Urinalysison 11-16-2024 Bilirubin Ql (U) Negative NEGATIVE [facility] Clarity (U) Clear Clear [facility] Color (U) Yellow Yellow [facility] Comment [facility] Glucose Test strip (U) [Mass/Vol] Negative NEGATIVE mg/dL [facility] Hemoglobin Auto test strip Ql (U) Negative NEGATIVE [facility] Ketones (U) [Mass/Vol] Negative NEGAT WOODY mg/dL [facility] Leukocyte esterase Test strip Ql (U) Negative NEGATIVE [facility] Nitrite Ql (U) Negative NEGATIVE [facility] pH (U) 7.0 [pH] 5.0 - 8.0 [facility] Protein (U) [Mass/Vol] Negative NEGAT WOODY mg/dL [facility] Specific gravity (U) [Rel density] 1.010 1.005 - 1.030 [facility] Urobilinogen Qn (U) Normal 0.0 - 1. 0 EU/dL [facility] Urinalysis, Routineon 2024 Bilirubin, SemiQt,Ur Negative Normal NEG [facility] Comment on above: Performed By: #### U A #### [facility] [address] [place] [address] Nicking Machine Operator: Caden Brown MD Blood, Urine Negative Normal NEG [facility] Comment on above: Performed By: #### U A #### [facility] Lab [address] [place] [address] Nicking Machine Operator: Caden Brown MD Clarity (U) Clear Normal CLEAR [facility] Comment on above: Performed By: #### U A #### [facility] Lab [address] [facility] [place] [address] Nicking Machine Operator: Caden Brown MD Color (U) Yellow Normal YEL [facility] Comment on above: Performed By: #### U A #### [facility] Lab [address] [place] [address] Nicking Machine Operator: Caden Brown MD Comment Normal [facility] Comment on above: Performed By: #### U A #### [facility] [address] [place] [address] Nicking Machine Operator: Caden Brown MD Glucose Ql (U) Negative Normal NEG [facility] Comment on above: Performed By: #### U A #### [facility] Lab [address] [place] [address] Nicking Machine Operator: Caden Brown MD Ketones Ql (U) Negative Normal NEG [facility] Comment on above: Performed By: #### U A #### [facility] Lab [address] [place] [address] Nicking Machine Operator: Caden Brown MD Leukocyte esterase Test strip Ql (U) Negative Normal NEG [facility] Comment on above: Performed By: #### U A #### [facility] Lab [address] [place] [address] Nicking Machine Operator: Caden Brown MD Nitrite,Ur Negative Normal NEG [facility] Comment on above: Performed By: #### U A #### [facility] Lab [address] [place] [address] Nicking Machine Operator: Caden Brown MD PH,Ur 7.0 Normal 5.0-8.0 [facility] Comment on above: Performed By: #### U A #### [facility] Lab [address] [place] [address] Nicking Machine Operator: Caden Brown MD Protein Ql (U) Negative Normal NEG [facility] Comment on above: Performed By: #### U A #### [facility] Lab [address] [place] [address] Nicking Machine Operator: Caden Brown MD Spec. [place],Ur 1.010 Normal 1.005-1.03 0 [facility] Comment on above: Performed By: #### U A #### [facility] Lab [address] [place] [address] Nicking Machine Operator: Caden Brown MD Urobilinogen,Ur Normal Normal 0.0-1.0 [facility] Comment on above: Performed By: #### U A #### [facility] [place] [address] Nicking Machine Operator: Caden Brown MD XR CHEST PORTABLEon 11-16-19 XR CHEST PORTABLE CLINICAL HISTORY: Shortness of breath. Chest pain. CHEST PORTABLE AP VIEW: The lungs are clear. No pneumothorax. The pulmonary vascularity and cardiomediastinal silhouette are normal. No acute fracture is seen. IMPRESSION: Normal chest. Interpreted by: Сергей Cobian MD Signed by: Сергей Cobian MD 11/16/24 Final result Normal [facility] HCG ( test) Ql (U)o n 10-23-2024 Interpretation and review of laboratory results Normal [facility] Preg Test, Ur Negative Negative [facility] HCG ( test) Ql (U)o n 08-27-2024 Beta HCG ( test) Ql (U) Negative Normal NEG [facility] Comment on above: Performed By: #### 2 106-3 #### [facility] ([id number]) [address] [place] [address] Surgical Pathologyon 024 Surgical Pathology Normal [facility] Comment on above: Result Comment: [facility] [address] [place] [address] Surgical Pathology Consultation Patient Name:CHARIS ALLEN:2000 (Age: 23)Gender:FTaken:4Reported:09/06/2024hysician(s):Sanjeev Jennings DO ([phone])Copy To: Rec. 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 Report Electronically Signed Out cjb/09/06/2024eri Arguelles MD Interpretation performed at [facility], [address] [place] [address], License number: [id number]. Clinical History Lesion of tongue. Gross Description Received in formalin labeled TIFFANY, right base of tongue lesion is a Telfa pad with two travis-yellow rubbery soft tissue bits, 0.2 and 0.3 cm. The specimen is filtered and entirely submitted in a single cassette. (1, ns, [id number],m5) DM. dm/08/27/2024NSK Specimen(s) Received Right base of tongue Fee Codes(s): 1; 57923 CNOVon 07-25-2024 CNOV Office Visit (PODIAM ) -------- CHARIS ALLEN ([id number]) 4 F Date Time Provider Department 07/25/24 [...] which included preparing to see the patient, [id number] patient care, completing clinical documentation, obtaining and/or reviewing separately obtained history, performing a medically appropriate examination, counseling and educating the patient/family/caregiver , ordering medications, tests and care coordination (not separately reported). Time did not include procedure time. I agree with the Chief Complaint, ROS, and Past Histories independently gathered by the clinical print support specialist and the remaining scribed note [...] GENERAL INS (more content not included)... Normal [facility] CT NECK SOFT TISSUE W CONTon [...] [place] Ty on 07/11/2024 8:38 AM Normal [facility] PREG QUANT HCGon 024 HCG QUANTITATIVE <1 mIU/mL [facility] Comment on above: 5-50 0.2-1 WEEK 50-500 1-2 WEEKS 100-5,000 2-3 WEEKS 500-10,000 3-4 WEEKS 1,000-50,000 4-5 WEEKS 10,000-100,000 5-6 WEEKS 15,000-200,000 6-8 WEEKS 10,000-100,000 2-3 MONTHS CLINISYNC [facility] abdomen pelvis w conon CT abdomen pelvis w con [facility] [place] [place] [address] CT Scan Report Signed Patient: Charis Allen MR#: [id number] : 2000 Acct:[id number] Age/Sex: 23 / F ADM Date: 06/27/24 Loc: ER Room: Type: [facility] ER Attending Dr: Copies to: Yung [...] Michael Camacho M.D.06/28/2024 6:18 AM Dictation Location: [place] [address] Transcribed By: [facility] 06/28/24617 Dictated By: Michael Camacho DO 06/28/24615 Signed By: 06/28/24617 Normal [facility] Chlamydia/GC Amplificationon 06-28-2024 Chlamydia Trachomotis, JANET Negative Normal Negative [facility] Comment on above: Order Comment: SOURC E OF SPECIMEN: Genital Performed By: #### F S #### [address] #### GCCHLAMAMP #### [facility] , Neisseria Gonorrhoeae, JANET Negative Normal Negative [facility] Comment on above: Order Comment: SOURC E OF SPECIMEN: Genital Result Comment: Perf ormed at: =G - [facility] [address] [id number] Nicking Machine Operator: Barbie Mota MD, Phone: [phone] PERFORMED BY: [place] [address] PATHOLOGIST QUILLER HAND SAMANTHA VILLAR M.D. Performed By: #### F S #### [place] [address] [place] #### GCCHLAMAMP #### [facility] , Fungal Smearon 06-28-2024 Fungal Smear Fungus Smear Results No Yeast Like Elements Seen ------ Trichomonas Screen No Trichomonas Seen Trich Reference Reference range = None Seen PERFORMED BY: [place] [address] PATHOLOGIST QUILLER HAND SAMANTHA VILLAR M.D. Normal [facility] Comment on above: Performed By: #### F S #### [facility] [address] [place] [address] #### GCCHLAMAMP #### [facility] , Trichomonas vaginalis detect ion by wet preparationOrdered By: Yung Nichols on 06-28-2024 T. vaginalis Wet prep Ql (Unsp spec) [facility] Alanine aminotransferase [En zymatic activity/volume] in Serum or PlasmaOrdered By: Yung Nichols on 06-27-2024 ALT [Catalytic activity/Vol] 20 U/L Normal 7-52 [facility] Comment on above: Performed By: #### C MP, LIPASE, CBC ####[place] [address] [address] Albumin [Mass/volume] in Ser um or Plasma by Bromocresol green (BCG) dye binding methoOrdered By: Yung Nichols on 06-27-2024 Albumin BCG dye [Mass/Vol] 4.2 g/dL 3.5-5.7 [facility] Alkaline phosphatase [Enzyma tic activity/volume] in Serum or PlasmaOrdered By: Yung Nichols on 06-27-2024 ALP [Catalytic activity/Vol] 69 U/L Normal 34-104 [facility] Comment on above: Performed By: #### C MP, LIPASE, CBC ####[place] [address] [address] Aspartate aminotransferase [ Enzymatic activity/volume] in Serum or PlasmaOrdered By: Yung Nichols on 06-27-2024 AST [Catalytic activity/Vol] 21 U/L Normal 13-39 [facility] Comment on above: Performed By: #### C MP, LIPASE, CBC ####[place] [address] [address] Automated basophil %Ordered By: Yung Nichols on 06-27-2024 Basophils/100 WBC (Bld) 0.6 % Normal . [facility] Comment on above: Performed By: #### C MP, LIPASE, CBC ####[address] Automated basophil countOrde red By: Yung Nichols on 06-27-2024 Basophils (Bld) [#/Vol] 0.0 10*3/uL Normal 0.0-0.2 [facility] Comment on above: Result Comment: PERF ORMED BY: [facility] [address] [place] [address] PATHOLOGIST QUILLER HAND SAMANTHA VILLAR M.D. Performed By: #### C MP, LIPASE, CBC ####[address] Automated blood monocyte cou ntOrdered By: Yung Nichols on 06-27-2024 Monocytes (Bld) [#/Vol] 0.5 10*3/uL Normal 0.0-0.8 [facility] Comment on above: Performed By: #### C MP, LIPASE, CBC ####[address] Automated eosinophil %Ordere d By: Yung Nichols on 06-27-2024 Eosinophils/100 WBC (Bld) 1.4 % Normal . [facility] Comment on above: Performed By: #### C MP, LIPASE, CBC ####[address] Automated eosinophil countOr dered By: Yung Nichols on 06-27-2024 Eosinophils (Bld) [#/Vol] 0.1 10*3/uL Normal 0.0-0.45 [facility] Comment on above: Performed By: #### C MP, LIPASE, CBC ####[address] Automated monocyte %Ordered By: Yung Nichols on 06-27-2024 Monocytes/100 WBC (Bld) 6.7 % Normal . [facility] Comment on above: Performed By: #### C MP, LIPASE, CBC ####[address] Automated neutrophil %Ordere d By: Yung Nichols on 06-27-2024 Neutrophils/100 WBC (Bld) 63.9 % Normal . [facility] Comment on above: Performed By: #### C MP, LIPASE, CBC ####[facility] [place] [id number] [facility] Bacteria [Presence] in Urine by AutomatedOrdered By: Yung Nichols on 06-27-2024 Bacteria Auto Ql (U) Rare [HPF] None Seen [facility] Bilirubin Test strip Ql (U)O rdered By: Yung Nichols on 06-27-2024 Bilirubin Ql (U) Negative Negative [facility] Bilirubin.total [Mass/volume ] in Serum or PlasmaOrdered By: Yung Nichols on 06-27-2024 Bilirubin [Mass/Vol] 1.5 mg/dL High 0.3-1.0 [facility] Comment on above: Samples from patient [...] Performed By: #### C MP, LIPASE, CBC ####[facility] [id number] [place] [id number] [facility] Calcium [Mass/volume] in Ser um or PlasmaOrdered By: Yung Nichols on 06-27-2024 Calcium [Mass/Vol] 9.1 mg/dL Normal 8.6-10.3 [facility] Comment on above: Performed By: #### C MP, LIPASE, CBC ####[facility] [id number] [place] [id number] [facility] Carbon dioxide, total [Moles /volume] in Serum or PlasmaOrdered By: Yung Nichols on 06-27-2024 CO2 [Moles/Vol] 26.8 mmol/L Normal 21.0-31.0 [facility] Comment on above: Performed By: #### C MP, LIPASE, CBC ####[place] [address] [address] Chloride [Moles/volume] in S emiliana or PlasmaOrdered By: Yung Nichols on 06-27-2024 Chloride [Moles/Vol] 105 mmol/L Normal 98-107 [facility] Comment on above: Performed By: #### C MP, LIPASE, CBC ####[address] Color of Urine by AutoOrdere d By: Yung Nichols on 06-27-2024 Color (U) Yellow Normal Yellow [facility] Comment on above: Order Comment: SOURC E OF SPECIMEN: Genital Performed By: #### F S #### [facility] [address] #### GCCHLAMAMP #### [facility] , Complete Blood Count Auto Di ffon 06-27-2024 Mean Corpuscular HGB Conc 33.3 g/dL Normal 32.0-35.0 [facility] Comment on above: Performed By: #### C MP, LIPASE, CBC ####[address] Monocytes/100 WBC (Bld) 20.22 % High 0.00-20.00 [facility] Comment on above: Result Comment: For adults in ED, MDW > 20.0 may be associated with a higher risk of sepsis during the first 12 hrs of hospital admission Performed By: #### C MP, LIPASE, CBC ####[address] NRBC% 0.2 /100{WBC} Normal 0-0.5 [facility] Comment on above: Performed By: #### C MP, LIPASE, CBC ####[address] Comprehensive Metabolic Pane yogi 06-27-2024 Albumin [Mass/Vol] 4.2 g/dL Normal 3.5-5.7 [facility] Comment on above: Performed By: #### C MP, LIPASE, CBC ####[address] Creatinine Clr Calc Pharmacy 115.39 Normal [facility] Comment on above: Performed By: #### C MP, LIPASE, CBC ####[address] GFR/1.73 sq M.predicted MDRD (S/P/Bld) [Vol rate/Area] mL/min/{1.73_m2} Normal [facility] Comment on above: Performed By: #### C MP, LIPASE, CBC ####[address] Creatinine [Mass/volume] in Serum or PlasmaOrdered By: Yung Nichols on 06-27-2024 Creatinine [Mass/Vol] 0.75 mg/dL Normal 0.60-1.[address] [facility] Comment on above: Performed By: #### C MP, LIPASE, CBC ####[address] Dipstick and Microscopicon 0 06-27-2024 Bacteria,Urine Rare Normal None Seen [facility] Comment on above: Order Comment: SOURC E OF SPECIMEN: Genital Performed By: #### F S #### [address] #### GCCHLAMAMP #### [facility] , Bilirubin,Urine Negative Normal Negative [facility] Comment on above: Order Comment: SOURC E OF SPECIMEN: Genital Performed By: #### F S #### [place] [address] [place] #### GCCHLAMAMP #### [facility] , Glucose Ql (U) Normal Normal Normal [facility] Comment on above: Order Comment: SOURC E OF SPECIMEN: Genital Performed By: #### F S #### [address] #### GCCHLAMAMP #### [facility] , Hyaline Casts,Urine None Normal 0-8 [facility] Comment on above: Order Comment: SOURC E OF SPECIMEN: Genital Performed By: #### F S #### [facility] [address] [place] [address] #### GCCHLAMAMP #### [facility] , Mucus,Urine 4+ Critically abnormal [facility] Comment on above: Order Comment: SOURC E OF SPECIMEN: Genital Performed By: #### F S #### [facility] [address] [place] [address] #### GCCHLAMAMP #### [facility] , Nitrite,Urine Negative Normal Negative [facility] Comment on above: Order Comment: SOURC E OF SPECIMEN: Genital Performed By: #### F S #### [address] #### GCCHLAMAMP #### [facility] , Occult Blood,Urine 1+ High Negative [facility] Comment on above: Order Comment: SOURC E OF SPECIMEN: Genital Performed By: #### F S #### [facility] [address] [place] [address] #### GCCHLAMAMP #### [facility] , Protein,Urine Negative Normal Negative [facility] Comment on above: Order Comment: SOURC E OF SPECIMEN: Genital Performed By: #### F S #### [facility] [address] [place] [address] #### GCCHLAMAMP #### [facility] , RBC,Urine 5-9 High 0-4 [facility] Comment on above: Order Comment: SOURC E OF SPECIMEN: Genital Performed By: #### F S #### [address] #### GCCHLAMAMP #### [facility] , Specificy [place],Urine 1.026 Normal 1.00 1-1.03 0 [facility] Comment on above: Order Comment: SOURC E OF SPECIMEN: Genital Performed By: #### F S #### [facility] [address] [place] [address] [place] #### GCCHLAMAMP #### [facility] , Squamous Epithelial Cell,Urine 3-4 High 0-2 [facility] Comment on above: Order Comment: SOURC E OF SPECIMEN: Genital Performed By: #### F S #### [facility] [address] [place] [address] [place] #### GCCHLAMAMP #### [facility] , Urobilinogen,Urine Normal Normal Normal [facility] Comment on above: Order Comment: SOURC E OF SPECIMEN: Genital Performed By: #### F S #### [address] #### GCCHLAMAMP #### [facility] , WBC,Urine 20-49 High 0-4 [facility] Comment on above: Order Comment: SOURC E OF SPECIMEN: Genital Performed By: #### F S #### [address] #### GCCHLAMAMP #### [facility] , Epithelial cells.squamous [# /area] in Urine sediment by Automated countOrdered By: Yung Nichols on 06-27-2024 Epithelial cells.squamous Auto (Urine sed) [#/Area] 3-4 [HPF] High 0-2 [facility] Erythrocyte distribution wid th [Ratio] by Automated countOrdered By: Yung Nichols on 06-27-2024 Erythrocyte distribution width (RBC) [Ratio] 14.2 % Normal 11.9-15.3 [facility] Comment on above: Performed By: #### C MP, LIPASE, CBC ####[facility] Ext[address] Erythrocytes [#/area] in Uri ne sediment by Automated countOrdered By: Yung Nichols on 06-27-2024 RBC Auto (Urine sed) [#/Area] 5-9 [HPF] High 0-4 [facility] Erythrocytes [#/volume] in B lood by Automated countOrdered By: Yugn Nichols on 06-27-2024 RBC (Bld) [#/Vol] 4.32 10*6/uL Normal 3.60-5.00 [facility] Comment on above: Performed By: #### C MP, LIPASE, CBC ####[facility] Glucose [Mass/volume] in Ser um or PlasmaOrdered By: Yung Nichols on 06-27-2024 Glucose [Mass/Vol] 82 mg/dL Normal 70-100 [facility] Comment on above: ADA recommended refe rence rangeRandom Glucose Reference Range is dependent on time and content of last meal. Glucose of more than 200 mg/dL in a nonstressed, ambulatory subject supports the diagnosis of Diabetes Mellitus. Result Comment: [place] Glucose Reference Range is dependent on time and content of last meal. Glucose of more than 200 mg/dL in a nonstressed, ambulatory subject supports the diagnosis of Diabetes Mellitus. ADA recommended reference range Performed By: #### C MP, LIPASE, CBC ####[facility] [id number] Glucose [Mass/volume] in Uri ne by Test stripOrdered By: Yung Nichols on 06-27-2024 Glucose Test strip (U) [Mass/Vol] Normal mg/dL Normal [facility] HCG ( test) IA.rapi d Ql (U)Ordered By: Yung Nichols on 06-27-2024 HCG ( test) Ql (U) Negative [facility] HCG,Urineon 06-27-2024 Beta HCG ( test) Ql (U) Negative Normal [facility] Comment on above: Order Comment: SOURC E OF SPECIMEN: Genital Result Comment: PERF ORMED BY: [facility] [address] [place] [address] PATHOLOGIST QUILLER HAND SAMANTHA VILLAR M.D. Performed By: #### F S #### [facility] [address] #### GCCHLAMAMP #### [facility] , Hematocrit [Volume Fraction] of Blood by Automated countOrdered By: Yung Nichols on 06-27-2024 Hematocrit (Bld) [Volume fraction] 39.5 % Normal 34.0-46.4 [facility] Comment on above: Performed By: #### C MP, LIPASE, CBC ####[facility] [address] [place] [address] Hemoglobin Test strip Ql (U) Ordered By: Yung Nichols on 06-27-2024 Hemoglobin Ql (U) 1+ High Negative [facility] Hemoglobin [Mass/volume] in BloodOrdered By: Yung Nichols on 06-27-2024 Hemoglobin (Bld) [Mass/Vol] 13.2 g/dL Normal 11.8-15.4 [facility] Comment on above: Performed By: #### C MP, LIPASE, CBC ####[address] Hyaline casts [#/area] in Ur ine sediment by Automated countOrdered By: Yung Nichols on 06-27-2024 Hyaline casts Auto (Urine sed) [#/Area] None [LPF] 0-8 [facility] Ketones [Presence] in Urine by Test stripOrdered By: Yung Nichols on 06-27-2024 Ketones Ql (U) Negative Normal Negative [facility] Comment on above: Order Comment: SOURC E OF SPECIMEN: Genital Performed By: #### F S #### [address] #### GCCHLAMAMP #### [facility] , Leukocyte esterase [Presence ] in Urine by Test stripOrdered By: Yung Nichols on 06-27-2024 Leukocyte esterase Test strip Ql (U) 4+ High Negative [facility] Comment on above: Order Comment: SOURC E OF SPECIMEN: Genital Performed By: #### F S #### [address] #### GCCHLAMAMP #### [facility] , Leukocytes [#/area] in Urine sediment by Automated countOrdered By: Yung Nichols on 06-27-2024 WBC Auto (Urine sed) [#/Area] 20-49 [HPF] High 0-4 [facility] Leukocytes [#/volume] correc roe for nucleated erythrocytes in Blood by Automated counOrdered By: Yung Nichols on 06-27-2024 WBC corrected for nucl RBC Auto (Bld) [#/Vol] 7.2 10*3/uL 3.8-11.6 [facility] Leukocytes [#/volume] in Blo od by Automated countOrdered By: Yung Nichols on 06-27-2024 WBC (Bld) [#/Vol] 7.2 10*3/uL Normal 3.8-11.6 [facility] Comment on above: Performed By: #### C MP, LIPASE, CBC ####[place] [id number] Lipase [Enzymatic activity/v olume] in Serum or PlasmaOrdered By: Yung Nichols on 06-27-2024 Lipase [Catalytic activity/Vol] 19.0 U/L Normal 11.0-82.0 [facility] Comment on above: Result Comment: PERF ORMED BY: [facility] [address] [place] [address] PATHOLOGIST QUILLER HAND SAMANTHA VILLAR M.D. Performed By: #### C MP, LIPASE, CBC ####[place] [id number] [facility] Lymphocytes [#/volume] in Bl ood by Automated countOrdered By: Yung Nichols on 06-27-2024 Lymphocytes (Bld) [#/Vol] 2.0 10*3/uL Normal 1.00-4.8 [facility] Comment on above: Performed By: #### C MP, LIPASE, CBC ####[place] [id number] [facility] Lymphocytes/100 leukocytes i n Blood by Automated countOrdered By: Yung Nichols on 06-27-2024 Lymphocytes/100 WBC (Bld) 27.4 % Normal . [facility] Comment on above: Performed By: #### C MP, LIPASE, CBC ####[place] [id number] [facility] MCH [Entitic mass] by Automa roe countOrdered By: Yung Nichols on 06-27-2024 MCH (RBC) [Entitic mass] 30.5 pg Normal 24.7-34.3 [facility] Comment on above: Performed By: #### C MP, LIPASE, CBC ####[facility] [id number] MCHC Auto (RBC) [Mass/Vol]Or dered By: Yung Nichols on 06-27-2024 MCHC (RBC) [Mass/Vol] 33.3 g/dL 32.0-35.[address] [facility] MCV [Entitic volume] by Auto mated countOrdered By: Yung Nichols on 06-27-2024 MCV (RBC) [Entitic vol] 91.5 fL Normal 80-100 [facility] Comment on above: Performed By: #### C MP, LIPASE, CBC ####[address] Monocyte distribution width [Entitic volume] in Blood by AutomatedOrdered By: Yung Nichols on 06-27-2024 Monocyte distribution width Auto (Bld) [Entitic vol] 20.22 % High 0.00-20.00 [facility] Comment on above: For adults in ED, MD W > 20.0 may be associated with a higher risk of sepsis during the first 12 hrs of hospital admission Mucus [Presence] in Urine by AutomatedOrdered By: Yung Nichols on 06-27-2024 Mucus Auto Ql (U) 4+ [LPF] Abnormal [facility] Neutrophils [#/volume] in Bl ood by Automated countOrdered By: Yung Nichols on 06-27-2024 Neutrophils (Bld) [#/Vol] 4.6 10*3/uL Normal 1.8-7.7 [facility] Comment on above: Performed By: #### C MP, LIPASE, CBC ####[facility] [id number] Nitrite Test strip Ql (U)Ord ered By: Yung Nichols on 06-27-2024 Nitrite Ql (U) Negative Negative [facility] No Panel InformationOrdered By: Yung Nichols on 06-27-2024 Estimated GFR (CKD-EPI) > 60.0 mL/Min [facility] Creatinine Clearance (Chem 115.39 [facility] Nucleated erythrocytes [Pres ence] in Blood by Automated countOrdered By: Yung Nichols on 06-27-2024 Nucleated RBC Auto Ql (Bld) 0.2 /100{WBC} 0-0.5 [facility] Platelet mean volume [Entiti c volume] in Blood by Automated countOrdered By: Yung Nichols on 06-27-2024 Platelet mean volume (Bld) [Entitic vol] 8.0 fL Normal 6.3-10.7 [facility] Comment on above: Performed By: #### C MP, LIPASE, CBC ####[place] [id number] Platelets [#/volume] in Bloo d by Automated countOrdered By: Yung Nichols on 06-27-2024 Platelets (Bld) [#/Vol] 201 10*3/uL Normal 150-450 [facility] Comment on above: Performed By: #### C MP, LIPASE, CBC ####[place] [id number] [facility] Potassium [Moles/volume] in Serum or PlasmaOrdered By: Yung Nichols on 06-27-2024 Potassium [Moles/Vol] 3.4 mmol/L Low 3.5-5.[address] [facility] Comment on above: Performed By: #### C MP, LIPASE, CBC ####[place] [id number] [facility] Protein Test strip (U) [Mass /Vol]Ordered By: Yung Nichols on 06-27-2024 Protein (U) [Mass/Vol] Negative Negative [facility] Protein [Mass/volume] in Ser um or PlasmaOrdered By: Yung Nichols on 06-27-2024 Protein [Mass/Vol] 6.4 g/dL Normal 6.4-8.9 [facility] Comment on above: Performed By: #### C MP, LIPASE, CBC ####[place] [id number] [facility] Serum globulin measurement b y calculation (mass/volume)Ordered By: Yung Nichols on 06-27-2024 Globulin (S) [Mass/Vol] 2.2 g/dL Normal [facility] Comment on above: Performed By: #### C MP, LIPASE, CBC ####[place] [id number] Serum or plasma albumin/glob ulin mass ratioOrdered By: Yung Nichols on 06-27-2024 Albumin/Globulin [Mass ratio] 1.9 {ratio} Normal [facility] Comment on above: Performed By: #### C MP, LIPASE, CBC ####[address] Serum or plasma anion gap de terminationOrdered By: Yung Nichols on 06-27-2024 Anion gap [Moles/Vol] 10.6 mmol/L Normal 6.0-15.0 [facility] Comment on above: Performed By: #### C MP, LIPASE, CBC ####[address] Sodium [Moles/volume] in Ser um or PlasmaOrdered By: Yung Nichols on 06-27-2024 Sodium [Moles/Vol] 139 mmol/L Normal 136-145 [facility] Comment on above: Performed By: #### C MP, LIPASE, CBC ####[address] Specific gravity Test strip (U) [Rel density]Ordered By: Yung Nichols on 06-27-2024 Specific gravity (U) [Rel density] 1.026 1.001-1.03 0 [facility] Urea nitrogen [Mass/volume] in Serum or PlasmaOrdered By: Yung Nichols on 06-27-2024 Urea nitrogen [Mass/Vol] 17 mg/dL Normal 7-25 [facility] Comment on above: Performed By: #### C MP, LIPASE, CBC ####[place] [id number] [facility] Urine Cultureon 06-27-2024 Bacteria identified Cx Nom (U) 75,000 colonies/ml mixed bacterial skin contaminants 2 Days PERFORMED BY: [facility] [address] [place] [address] PATHOLOGIST QUILLER HAND SAMANTHA VILLAR M.D. Normal [facility] Comment on above: Performed By: #### F S #### [facility] [address] [place] [address] [place] #### GCCHLAMAMP #### [facility] , Urine appearanceOrdered By: Yung Nichols on 06-27-2024 Appearance (U) Clear Normal Clear [facility] Comment on above: Order Comment: SOURC E OF SPECIMEN: Genital Performed By: #### F S #### [facility] [address] [place] [address] #### GCCHLAMAMP #### [facility] , Urobilinogen Test strip (U) [Mass/Vol]Ordered By: Yung Nichols on 06-27-2024 Urobilinogen (U) [Mass/Vol] Normal mg/dL Normal [facility] pH of Urine by Test stripOrd ered By: Yung Nichols on 06-27-2024 pH (U) 6.0 [pH] Normal 5.0-9.0 [facility] Comment on above: Order Comment: SOURC E OF SPECIMEN: Genital Performed By: #### F S #### [address] #### GCCHLAMAMP #### [facility] , TBH PREG QUANT HCGon 024 HCG QUANTITATIVE <1 mIU/mL [facility] Comment on above: 5-50 0.2-1 WEEK 50-500 1-2 WEEKS 100-5,000 2-3 WEEKS 500-10,000 3-4 WEEKS 1,000-50,000 4-5 WEEKS 10,000-100,000 5-6 WEEKS 15,000-200,000 6-8 WEEKS 10,000-100,000 2-3 MONTHS [facility] CNOVon 12-26-2023 CNOV Office Visit (PODIAM ) -------- CHARIS ALLEN ([id number]) 4 F Date Time Provider Department 12/26/23 [...] feet daily. Medication orders placed this encounter clotrimazole-betamethaso ne (LOTRISONE) cream Sig: Apply 1 application to [...] the overlying eponychium and underlying nailbed. An Latvian anvil was used to cut the offending [...] A [place] (more content not included)... Normal [facility] CNOVon 11-21-2023 CNOV Office Visit (PODIAM ) -------- CHARIS ALLEN ([id number]) 4 F Date Time Provider Department 11/21/23 2:15 PM ÁNGELA DELGADO During your visit today, we recorded the following information about you: Last Period 11/06/23 Ángela Delgado DPM 11/21/2023 3:03 PM Signed Service Date: November 21, 2023 PCP: No primary care provider on file. Last Podiatry Visit: None at [facility] The history is provided by the patient. [...] order to perform a complete physical exam, [address] was performed. This incidental service is integral [...] which included preparing to see the patient, [id number] patient care, completing clinical documentation, obtaining and/or reviewing separately obtained history, performing a medically appropriate examination, counseling and educating the patient/family/caregiver , ordering medications, tests, or procedures and care human resources operations coordinator (more content not included)... Normal [facility] A1C with Estimated Average G ramirez 11-08-2023 HbA1c (Bld) [Mass fraction] 5.000 % Normal 4.3-5.6 % [facility] [employer] Other HbA1c (Bld) [Mass fraction] 97 mg/dL [facility] [employer] Other Alanine aminotransferase [En zymatic activity/volume] in Serum or PlasmaOrdered By: Pérez Barcenas on 11-08-2023 ALT [Catalytic activity/Vol] 15 U/L 7-52 [facility] Albumin [Mass/volume] in Ser um or Plasma by Bromocresol green (BCG) dye binding methoOrdered By: Pérez Barcenas on 11-08-2023 Albumin BCG dye [Mass/Vol] 4.3 g/dL 3.5-5.7 [facility] Alkaline phosphatase [Enzyma tic activity/volume] in Serum or PlasmaOrdered By: Pérez Barcenas on 11-08-2023 ALP [Catalytic activity/Vol] 80 U/L 34-104 [facility] Aspartate aminotransferase [ Enzymatic activity/volume] in Serum or PlasmaOrdered By: Pérez Barcenas on 11-08-2023 AST [Catalytic activity/Vol] 14 U/L 13-39 [facility] Bilirubin.total [Mass/volume ] in Serum or PlasmaOrdered By: Pérez Barcenas on 11-08-2023 Bilirubin [Mass/Vol] 0.8 mg/dL 0.3-1.0 [facility] Calcium [Mass/volume] in Ser um or PlasmaOrdered By: Pérez Barcenas on 11-08-2023 Calcium [Mass/Vol] 9.7 mg/dL 8.6-10.3 [facility] Carbon dioxide, total [Moles /volume] in Serum or PlasmaOrdered By: Pérez Barcenas on 11-08-2023 CO2 [Moles/Vol] 29.4 mmol/L 21.0-31.0 [facility] Chloride [Moles/volume] in S emiliana or PlasmaOrdered By: Pérez Barcenas on 11-08-2023 Chloride [Moles/Vol] 105 mmol/L 98-107 [facility] Cholesterol [Mass/volume] in Serum or PlasmaOrdered By: Pérez Barcenas on 11-08-2023 Cholesterol [Mass/Vol] 128 mg/dL 140-200 [facility] Comment on above: Chol less than 200 m g/dl low riskChol 201-239 mg/dl borderline riskChol 240 mg/dl and greater high risk Cholesterol in LDL Calc [Mas s/Vol]Ordered By: Pérez Barcenas on 11-08-2023 Cholesterol in LDL [Mass/Vol] 70 mg/dL 0-100 [facility] Comment on above: LDL ATP III CLASSIFI CATIONLDL less than 100 mg/dL OptimalLDL 100-129 mg/dL Near or above optimalLDL 130-159 mg/dL Borderline highLDL 160-189 mg/dL HighLDL greater than 189 mg/dL Very high Cholesterol in VLDL Calc [Ma ss/Vol]Ordered By: Pérez Barcenas on 11-08-2023 Cholesterol in VLDL [Mass/Vol] 10 mg/dL [facility] Comprehensive Metabolic Pane yogi 11-08-2023 Albumin [Mass/Vol] 4.953061 g/dL Normal 3.5-5.7 g/dL [employer] Other Bilirubin [Mass/Vol] 0.0428879 mg/dL Normal 0.3- 1.0 mg/dL [employer] Other Calcium [Mass/Vol] 9.7375108 mg/dL Normal 8.6-10 .3 mg/dL [employer] Other CO2 [Moles/Vol] 29.75873589 mmol/L Normal 21.0-3 1.0 mmol/L [employer] Other Creatinine [Mass/Vol] 0.45877331 mg/dL Normal 0. 60-1.20 mg/dL [employer] Other GFR/1.73 sq M.predicted MDRD (S/P/Bld) [Vol rate/Area] mL/min/{1.73_m2} [employer] Other Potassium [Moles/Vol] 4.05262864 mmol/L Normal 3 .5-5.1 mmol/L [employer] Other Protein [Mass/Vol] 6.697105 g/dL Normal 6.4-8.9 g/dL [employer] Other Comprehensive Metabolic Panel 2.2 g/dL [employer] Other Creatinine [Mass/volume] in Serum or PlasmaOrdered By: Pérez Barcenas on 11-08-2023 Creatinine [Mass/Vol] 0.68 mg/dL 0.60-1.[address] [facility] Globulin Calc (S) [Mass/Vol] Ordered By: Pérez Barcenas on 11-08-2023 Globulin (S) [Mass/Vol] 2.2 g/dL [facility] Glucose [Mass/volume] in Ser um or PlasmaOrdered By: Pérez Barcenas on 11-08-2023 Glucose [Mass/Vol] 80 mg/dL 70-100 [facility] Comment on above: ADA recommended refe rence rangeRandom Glucose Reference Range is dependent on time and content of last meal. Glucose of more than 200 mg/dL in a nonstressed, ambulatory subject supports the diagnosis of Diabetes Mellitus. Glucose mean value [Mass/vol ume] in Blood Estimated from glycated hemoglobinOrdered By: Pérez Barcenas on 11-08-2023 Average glucose Estimated from glycated hemoglobin (Bld) [Mass/Vol] 97 mg/dL [facility] Hemoglobin A1c percentageOrd ered By: Pérez Barcenas on 11-08-2023 HbA1c (Bld) [Mass fraction] 5.0 % 4.3-5.6 [facility] Comment on above: Increased risk for d iabetes: 5.7 - 6.4diabetes: >6.4glycemic control for adults with diabetes: <7.0 Lipid Panelon 11-08-2023 Cholesterol in LDL Elph Qn 70 mg/dL Normal 0-100 mg/dL [facility] [employer] Other Lipid Panel 54 mg/dL Normal 0-149 mg/dL [facility] [employer] Other Lipid Panel 10 mg/dL [facility] [employer] Other No Panel InformationOrdered By: Pérez Barcenas on 11-08-2023 Estimated GFR (CKD-EPI) > 60.0 mL/Min [facility] Creatinine Clearance (Chem N/A [facility] Potassium [Moles/volume] in Serum or PlasmaOrdered By: Pérez Barcenas on 11-08-2023 Potassium [Moles/Vol] 4.3 mmol/L 3.5-5.[address] [facility] Protein [Mass/volume] in Ser um or PlasmaOrdered By: Pérez Barcenas on 11-08-2023 Protein [Mass/Vol] 6.5 g/dL 6.4-8.9 [facility] Serum or plasma albumin/glob ulin mass ratioOrdered By: Pérez Barcenas on 11-08-2023 Albumin/Globulin [Mass ratio] 2.0 {ratio} [facility] Serum or plasma anion gap de terminationOrdered By: Pérez Barcenas on 11-08-2023 Anion gap [Moles/Vol] 8.9 mmol/L 6.0-15.[address] [facility] Serum or plasma high density lipoprotein (HDL) cholesterol measurementOrdered By: Pérez Barcenas on 11-08-2023 Cholesterol in HDL [Mass/Vol] 47 mg/dL 23-92 [facility] Comment on above: HDL CHOL ATP-III CLA SSIFICATION Cardiovascular RiskHDL > or equal to 60 mg/dL LOWHDL < 40 mg/dL HIGH Serum or plasma total choles terol/high density lipoprotein (HDL) cholesterol mass ratOrdered By: Pérez Barcenas on 11-08-2023 Cholesterol.total/Lulu sterol in HDL [Mass ratio] 2.7 {ratio} <5.0 [facility] Sodium [Moles/volume] in Ser um or PlasmaOrdered By: Pérez Barcenas on 11-08-2023 Sodium [Moles/Vol] 139 mmol/L 136-145 [facility] Thyroid Stimulating Hormoneo n 11-08-2023 TSH Qn 1.01084264797 m[IU]/L Normal 0.45-5 .33 u[iU]/mL [employer] Other Thyrotropin [Units/volume] i n Serum or PlasmaOrdered By: Pérez Barcenas on 11-08-2023 TSH Qn 1.24 m[IU]/L 0.45-5.33 [facility] Triglyceride [Mass/volume] i n Serum or PlasmaOrdered By: Pérez Barcenas on 11-08-2023 Triglyceride [Mass/Vol] 54 mg/dL 0-149 [facility] Comment on above: TRIG ATP III CLASSIF ICATIONTRIG less than 150 mg/dL NormalTRIG 150-199 mg/dL Borderline highTRIG 200-500 mg/dL High TRIG greater than 500 mg/dL Very highStandard traceable to the Center for Disease Conrtrol and Prevention (CDC) test method. Urea nitrogen [Mass/volume] in Serum or PlasmaOrdered By: Pérez Barcenas on 11-08-2023 Urea nitrogen [Mass/Vol] 13 mg/dL 7-25 [facility] Erythrocyte distribution wid th Auto (RBC) [Ratio]Ordered By: ERLIN Vann on 08-17-2023 Erythrocyte distribution width (RBC) [Ratio] 14.4 % 11.9-15.3 [facility] Hematocrit Auto (Bld) [Volum e fraction]Ordered By: ERLIN Vann on 08-17-2023 Hematocrit (Bld) [Volume fraction] 35.2 % 34.0-46.4 [facility] Hemoglobin [Mass/volume] in BloodOrdered By: ERLIN Vann on 08-17-2023 Hemoglobin (Bld) [Mass/Vol] 11.7 g/dL 11.8-15.4 [facility] Leukocytes [#/volume] correc roe for nucleated erythrocytes in Blood by Automated counOrdered By: ERLIN Vann on 08-17-2023 WBC corrected for nucl RBC Auto (Bld) [#/Vol] 8.0 10*3/uL 3.8-11.6 [facility] MCH Auto (RBC) [Entitic mass ]Ordered By: ERLIN Vann on 08-17-2023 MCH (RBC) [Entitic mass] 29.8 pg 24.7-34.3 [facility] MCHC Auto (RBC) [Mass/Vol]Or dered By: ERLIN Vann on 08-17-2023 MCHC (RBC) [Mass/Vol] 33.3 g/dL 32.0-35.[address] [facility] MCV Auto (RBC) [Entitic vol] Ordered By: ERLIN Vann on 08-17-2023 MCV (RBC) [Entitic vol] 89.6 fL 80-100 [facility] Platelet mean volume Auto (B ld) [Entitic vol]Ordered By: ERLIN Vnan on 08-17-2023 Platelet mean volume (Bld) [Entitic vol] 8.1 fL 6.3-10.7 [facility] Platelets Auto (Bld) [#/Vol] Ordered By: ERLIN Vann on 08-17-2023 Platelets (Bld) [#/Vol] 186 10*3/uL 150-450 [facility] RBC Auto (Bld) [#/Vol]Ordere d By: ERLIN Vann on 08-17-2023 RBC (Bld) [#/Vol] 3.93 10*6/uL 3.60-5.00 [facility] CNPNon 08-16-2023 CNPN Telephone (INT[place]) -------- CHARIS ALLEN ([id number]) 4 F Date Time Provider Department 08/16/23 [...] calling: self Call patient at: at home [phone] (home) [phone] (cell) Was an appointment scheduled: No Closing statement: Results or non-symptom based questions: Thank you for calling [facility], your call will be returned within the [...] 12/24/2009 Date Reviewed: 06/01/2023 Reviewed by: Mili Iverson, JESSIE - Fully Assessed Reason for Visit: Patient Question [3495] Prescriptions as of 08/21/2023 - Sulfacetamide Sodium-Sulfur [...] by MAMTA HERNÁNDEZ LPN on 08/21/23 Normal [facility] BILIRUBIN CONJUGATED (DIRECT )on 01-03-2023 BILI, CONJUGATED 0.2 mg/dL Normal 0.0-0.2 [facility] Comment on above: Performed By: #### D NAN, CMP #### [facility] [address] [place] [address] Dr. Yvette Ohara PROF 14(COMP METB)on 023 Albumin [Mass/Vol] 4.1 g/dL Normal 3.4-5.0 [facility] Comment on above: Performed By: #### D NAN, CMP #### [facility] [address] [place] [address] [address] Yvette Ohara Albumin/Globulin [Mass ratio] 1.3 {ratio} Normal [facility] Comment on above: Performed By: #### D NAN, CMP #### [facility] [address] [place] [address] [address] Yvette Ohara ALP [Catalytic activity/Vol] 122 U/L Critically high 46-116 [facility] Comment on above: Performed By: #### D ANN, CMP #### [facility] [address] [place] [address] [address] Yvette Ohara ALT [Catalytic activity/Vol] 38 U/L Normal 14-59 [facility] Comment on above: Performed By: #### D NAN, CMP #### [facility] [address] [place] [address] Dr. Yvette Ohara Anion gap [Moles/Vol] 13.9 mmol/L Normal [facility] Comment on above: Performed By: #### D NAN, CMP #### [facility] [address] [place] [address] Dr. Yvette Ohara AST [Catalytic activity/Vol] 20 U/L Normal 15-37 [facility] Comment on above: Performed By: #### D NAN, CMP #### [facility] [address] [place] [address] Dr. Yvette Ohara Bilirubin [Mass/Vol] 0.9 mg/dL Normal 0.2-1.0 [facility] Comment on above: Performed By: #### D NAN, CMP #### [facility] [address] [place] [address] [address] Yvette Ohara Calcium [Mass/Vol] 9.2 mg/dL Normal 8.5-10.1 [facility] Comment on above: Performed By: #### D NAN, CMP #### [facility] [address] [place] [address] [address] Yvette Ohara Chloride [Moles/Vol] 107 mmol/L Normal 98-107 [facility] Comment on above: Performed By: #### D NAN, CMP #### [facility] [address] [place] [address] Dr. Yvette Ohara CO2 [Moles/Vol] 26.9 mmol/L Normal 21.0-32.0 [facility] Comment on above: Performed By: #### D NAN, CMP #### [facility] [address] [place] [address] [address] Yvette Ohara Creatinine [Mass/Vol] 0.87 mg/dL Normal 0.55-1.02 [facility] Comment on above: Performed By: #### D NAN, CMP #### [facility] [address] [place] [address] [address] Yvette Ohara EGFR-AF BRITISH >60 Normal >=60 [facility] Comment on above: Performed By: #### D NAN, CMP #### [facility] [address] [place] [address] Dr. Yvette Ohara EGFR-NON AF BRITISH >60 Normal >=60 [facility] Comment on above: Performed By: #### D NAN, CMP #### [facility] [address] [place] [address] Dr. Yvette Ohara Globulin (S) [Mass/Vol] 3.2 g/dL Normal [facility] Comment on above: Performed By: #### D NAN, CMP #### [facility] [address] [place] [address] Dr. Yvette Ohara Glucose [Mass/Vol] 141 mg/dL Critically high 74-106 [facility] Comment on above: Performed By: #### D NAN, CMP #### [facility] [address] [address] [address] Yvette Ohara Potassium [Moles/Vol] 3.8 mmol/L Normal 3.5-5.1 [facility] Comment on above: Performed By: #### D NAN, CMP #### [facility] [address] [place] [address] Dr. Yvette Ohara Protein [Mass/Vol] 7.3 g/dL Normal 6.4-8.2 [facility] Comment on above: Performed By: #### D NAN, CMP #### [facility] [address] [place] [address] Dr. Yvette Ohara Sodium [Moles/Vol] 144 mmol/L Normal 136-145 [facility] Comment on above: Performed By: #### D NAN, CMP #### [facility] [address], [place] [address] Dr. Yvette Ohara Urea nitrogen [Mass/Vol] 9.0 mg/dL Normal 7.0-18.0 [facility] Comment on above: Performed By: #### D NAN, CMP #### [facility] [address] [address] [address] Yvette Ohara Urea nitrogen/Creatinine [Mass ratio] 10.3 mg/mg Normal [facility] Comment on above: Performed By: #### D NAN, CMP #### [facility] [address] [address] [address] Yvette Ohara IGF 1on 01-02-2023 INSULIN LIKE GROWTH FACTOR I 391 [facility] Comment on above: Result Comment: Refe rence [...] 10 years 85 - 526 PERFORMED AT [facility] Performed By: #### L IGF1 #### Testing performed at [facility] SALIVARY CORTISOLon 12-27-19 23 Salivary Cortisol, [place] 0.021 ug/dL Normal [facility] Comment on above: Result Comment: This test was developed and its performance characteristics determined by [employer]. It has not been cleared or approved by the Food and Drug Administration. Reference Range: Children and Adults: 8:00a.m.: 0.025 - 0.600 Noon: <0.010 - 0.330 4:00p.m.: 0.010 - 0.200 Midnight: <0.010 - 0.090 Performed By: #### C JOSEY, JESSICA #### [facility] [address] [place] [address] Dr. Yvette Ohara TESTOSTERONE, FREE,DIRECT, T OTALon 12-21-2022 Free Testosterone(Direct) 2.4 pg/mL Normal 0.0-4.2 [facility] Comment on above: Result Comment: Perf ormed at: BN Performed By: #### T ESTFRD #### [facility] [address] [place] [address] Dr. Yvette Ohara Testosterone [Mass/Vol] 41 ng/dL Normal 13-71 [facility] Comment on above: Result Comment: Perf ormed at: CB Performed By: #### T ESTFRD #### [facility] [address] [place] [address] Dr. Yvette Ohara DHEA-SULFATEon 12-16-2022 DHEA-Sulfate 410.0 ug/dL Normal 110.0-431. 7 [facility] Comment on above: Performed By: #### C JOSEY, JESSICA #### [facility] [address] [place] [address] Dr. Yvette Ohara INSULINon 12-16-2022 Insulin 16.6 uIU/mL Normal 2.6-24.9 [facility] Comment on above: Performed By: #### C JOSEY, JESSICA #### [facility] [address] [place] [address] Dr. Yvette Ohara GLYCOHEMOGLOBIN A1Con 2022 ADA RECOMMENDATION SEE BELOW Normal [facility] Comment on above: Result Comment: ADA RECOMMENDED LIMIT 4.0 - 6.0 ADA THERAPEUTIC TARGET < 7.0 ACTION SUGGESTED > 7.0 Performed By: #### A 1C #### [facility] [address] [place] [address] Dr. Yvette Ohara Glucose [Mass/Vol] 108 mg/dL Normal [facility] Comment on above: Performed By: #### A 1C #### [facility] [address] [place] [address] Dr. Yvette Ohara HbA1c (Bld) [Mass fraction] 5.4 % Normal 4.5-6.2 [facility] Comment on above: Performed By: #### A 1C #### [facility] [address] [address] [address] Yvette Ohara PROF 14(COMP METB)on 023 Albumin [Mass/Vol] 4.4 g/dL Normal 3.4-5.0 [facility] Comment on above: Performed By: #### C MP, TSH, T4 #### [facility] [address] [place] [address] Dr. Yvette Ohara Albumin/Globulin [Mass ratio] 1.3 {ratio} Normal [facility] Comment on above: Performed By: #### C MP, TSH, T4 #### [facility] [address] [place] [address] Dr. Yvette Ohara ALP [Catalytic activity/Vol] 133 U/L Critically high 46-116 [facility] Comment on above: Performed By: #### C MP, TSH, T4 #### [facility] [address] [place] [address] Dr. Yvette Ohara ALT [Catalytic activity/Vol] 32 U/L Normal 14-59 [facility] Comment on above: Performed By: #### C MP, TSH, T4 #### [facility] [address] [place] [address] Dr. Yvette Ohara Anion gap [Moles/Vol] 12.9 mmol/L Normal [facility] Comment on above: Performed By: #### C MP, TSH, T4 #### [facility] [address] [place] [address] Dr. Yvette Ohara AST [Catalytic activity/Vol] 18 U/L Normal 15-37 [facility] Comment on above: Performed By: #### C MP, TSH, T4 #### [facility] [address] [place] [address] Dr. Yvette Ohara Bilirubin [Mass/Vol] 1.2 mg/dL Critically high 0.2-1.0 [facility] Comment on above: Performed By: #### C MP, TSH, T4 #### [facility] [address] [place] [address] Dr. Yvette Ohara Calcium [Mass/Vol] 9.5 mg/dL Normal 8.5-10.1 [facility] Comment on above: Performed By: #### C MP, TSH, T4 #### [facility] [address] [address] [address] Yvette Ohara Chloride [Moles/Vol] 106 mmol/L Normal 98-107 [facility] Comment on above: Performed By: #### C MP, TSH, T4 #### [facility] [address] [address] [address] Yvette Ohara CO2 [Moles/Vol] 28.0 mmol/L Normal 21.0-32.0 [facility] Comment on above: Performed By: #### C MP, TSH, T4 #### [facility] [address] [place] [address] Dr. Yvette Ohara Creatinine [Mass/Vol] 0.85 mg/dL Normal 0.55-1.02 [facility] Comment on above: Performed By: #### C MP, TSH, T4 #### [facility] [address] [place] [address] Dr. Yvette Ohara EGFR-AF BRITISH >60 Normal >=60 [facility] Comment on above: Performed By: #### C MP, TSH, T4 #### [facility] [address] [place] [address] Dr. Yvette Ohara EGFR-NON AF BRITISH >60 Normal >=60 [facility] Comment on above: Performed By: #### C MP, TSH, T4 #### [facility] [address] [place] [address] Dr. Yvette Ohara Globulin (S) [Mass/Vol] 3.3 g/dL Normal [facility] Comment on above: Performed By: #### C MP, TSH, T4 #### [facility] [address] [place] [address] Dr. Yvette Ohara Glucose [Mass/Vol] 98 mg/dL Normal 74-106 [facility] Comment on above: Performed By: #### C MP, TSH, T4 #### [facility] [address] [place] [address] Dr. Yvette Ohara Potassium [Moles/Vol] 3.9 mmol/L Normal 3.5-5.1 [facility] Comment on above: Performed By: #### C MP, TSH, T4 #### [facility] [address] [place] [address] Dr. Yvette Ohara Protein [Mass/Vol] 7.7 g/dL Normal 6.4-8.2 [facility] Comment on above: Performed By: #### C MP, TSH, T4 #### [facility] [address] [address] [address] Yvette Ohara Sodium [Moles/Vol] 143 mmol/L Normal 136-145 [facility] Comment on above: Performed By: #### C MP, TSH, T4 #### [facility] [address] [place] [address] Dr. Yvette Ohara Urea nitrogen [Mass/Vol] 13.0 mg/dL Normal 7.0-18.0 [facility] Comment on above: Performed By: #### C MP, TSH, T4 #### [facility] [address] [place] [address] Dr. Yvette Ohara Urea nitrogen/Creatinine [Mass ratio] 15.3 mg/mg Normal [facility] Comment on above: Performed By: #### C MP, TSH, T4 #### [facility] [address] [place] [address] Dr. Yvette Ohara T4on 12-15-2022 T4 [Mass/Vol] 5.90 ug/dL Normal 4.80-13.90 [facility] Comment on above: Performed By: #### C MP, TSH, T4 #### [facility] [address] [place] [address] Dr. Yvette Ohara TSHon 12-15-2022 TSH 1.277 uIU/mL Normal 0.358-3.74 0 [facility] Comment on above: Performed By: #### C MP, TSH, T4 #### [facility] [address] [place] [address] Dr. Yvette Ohara MR Brain WO and W contrast I Von 11-16-2022 IMPRESSION: Low-lying cerebellar tonsils with slight crowding at the foramen magnum. Age-appropriate unremarkable remaining brain without acute findings or abnormal enhancement. CSF flow study, as detailed. [employer]: PSCB Transcribe Date/Time: Nov 16 2022 9:19A Dictated by : ALIYA CROCKER MD This examination was interpreted and the report reviewed and electronically signed by: ALIYA CROCKER MD on Nov 16 2022 9:23AM [facility] DIVISION OF RADIOLOGY * * *Final Report* * * DATE OF EXAM: Nov 16 2022 8:55AM [facility] 0295 - MRI BRAIN WO/W IVCON / [...] tissues are unremarkable. DIVISION OF RADIOLOGY Provider, [facility] Rosalie [facility] - 11/16/2022 * * *Final Report* [...] abnormal enhancement. CSF flow study, as detailed. [employer]: PSCB Transcribe Date/Time: Nov 16 2022 9:19A Dictated by : ALIYA CROCKER MD This examination was interpreted and the report reviewed and electronically signed by: ALIYA CROCKER MD on Nov 16 2022 9:23AM [facility] Radiology Study observation (narrative) [facility] MR Brain WO and W contrast I VOrdered By: [facility] Provider on 11-16-[address] [facility] [address] Abdomen/Pelvis w/o Contra stogarima 10-31-2022 CT Abdomen/Pelvis w/o Contrast CLINICAL HISTORY: [...] by Mayo Jose on 10/31/2022 1542 Normal [facility] Specialist AMYLASEon 10-21-2022 Amylase [Catalytic activity/Vol] 32 U/L Normal 25-115 [facility] Comment on above: Performed By: #### C MP, JESSICA #### [facility] [address] [address] [address] Yvette Ohara CBC AUTO DIFFon 10-21-2022 BASO # 0.0 103/ul Normal 0.0-0.1 [facility] Comment on above: Performed By: #### C BC #### [facility] [address] [address] [address] Yvette Ohara Basophils/100 WBC (Bld) 0.4 % Normal 0.2-2.0 [facility] Comment on above: Performed By: #### C BC #### [facility] [address] [place] [address] Dr. Yvette Ohara EO # 0.0 103/ul Normal 0.0-0.7 [facility] Comment on above: Performed By: #### C BC #### [facility] [address] [place] [address] Dr. Yvette Ohara Eosinophils/100 WBC (Bld) 0.4 % Critically low 0.9-7.0 [facility] Comment on above: Performed By: #### C BC #### [facility] [address] [place] [address] Dr. Yvette Ohraa Erythrocyte distribution width (RBC) [Ratio] 12.1 % Normal 11.0-15.0 [facility] Comment on above: Performed By: #### C BC #### [facility] [address] [place] [address] Dr. Yvette Ohara Hematocrit (Bld) [Volume fraction] 50.0 % Critically high 36.0-48.0 [facility] Comment on above: Performed By: #### C BC #### [facility] [address] [place] [address] Dr. Yvette Ohara Hemoglobin (Bld) [Mass/Vol] 15.1 g/dL Normal 12.0-16.0 [facility] Comment on above: Performed By: #### C BC #### [facility] [address] [place] [address] Dr. Yvette Ohara IG # 0.02 10e3/ul Normal 0.00-0.03 [facility] Comment on above: Performed By: #### C BC #### [facility] [address] [place] [address] Dr. Yvette Ohara IG % 0.3 % Normal 0.0-0.5 [facility] Comment on above: Performed By: #### C BC #### [facility] [address] [place] [address] Dr. Yvette Ohara LYMPH # 2.1 103/ul Normal 1.2-3.8 [facility] Comment on above: Performed By: #### C BC #### [facility] [address] [place] [address] Dr. Yvette Ohara Lymphocytes/100 WBC (Bld) 28.7 % Normal 20.5-60.0 [facility] Comment on above: Performed By: #### C BC #### [facility] [address] [place] [address] Dr. Yvette Ohara MANUAL DIFF REQ NO Normal [facility] Comment on above: Performed By: #### C BC #### [facility] [address] [place] [address] Dr. Yvette Ohara MCH (RBC) [Entitic mass] 29.4 pg Normal 26.7-34.0 [facility] Comment on above: Performed By: #### C BC #### [facility] [address] [place] [address] Dr. Yvette Ohara MCHC (RBC) [Mass/Vol] 30.2 g/dL Normal 29.9-35.2 [facility] Comment on above: Performed By: #### C BC #### [facility] [address] [place] [address] Dr. Yvette Ohara MCV (RBC) [Entitic vol] 97.5 fL Normal 81.0-99.0 [facility] Comment on above: Performed By: #### C BC #### [facility] [address] [place] [address] Dr. Yvette Ohara MONO # 0.6 103/ul Normal 0.3-0.8 [facility] Comment on above: Performed By: #### C BC #### [facility] [address] [place] [address] Dr. Yvette Ohara Monocytes/100 WBC (Bld) 7.8 % Normal 1.7-12.0 [facility] Comment on above: Performed By: #### C BC #### [facility] [address] [place] [address] Dr. Yvette Ohara NEUT # 4.5 103/ul Normal 1.4-6.5 [facility] Comment on above: Performed By: #### C BC #### [facility] [address] [place] [address] Dr. Yvette Ohara Neutrophils/100 WBC (Bld) 62.4 % Normal 43.0-75.0 [facility] Comment on above: Performed By: #### C BC #### [facility] [address] [place] [address] Dr. Yvette Ohara Platelet mean volume (Bld) [Entitic vol] 10.3 fL Normal 9.5-13.5 [facility] Comment on above: Performed By: #### C BC #### [facility] [address] [place] [address] Dr. Yvette Ohara PLT 242 103/ul Normal 150-450 [facility] Comment on above: Performed By: #### C BC #### [facility] [address] [place] [address] Dr. Yvette Ohara RBC 5.13 106/ul Normal 4.20-5.40 [facility] Comment on above: Performed By: #### C BC #### [facility] [address] [place] [address] Dr. Yvette Ohara WBC 7.2 103/ul Normal 4.0-11.0 [facility] Comment on above: Performed By: #### C BC #### [facility] [address] [place] [address] Dr. Yvette Ohara PROF 14(COMP METB)on 023 Albumin [Mass/Vol] 4.1 g/dL Normal 3.4-5.0 [facility] Comment on above: Performed By: #### C MP, JESSICA #### [facility] [address] [place] [address] Dr. Yvette Ohara Albumin/Globulin [Mass ratio] 1.3 {ratio} Normal [facility] Comment on above: Performed By: #### C MP, JESSICA #### [facility] [address] [place] [address] Dr. Yvette Ohara ALP [Catalytic activity/Vol] 117 U/L Critically high 46-116 [facility] Comment on above: Performed By: #### C MP, JESSICA #### [facility] [address] [address] [address] Yvette Ohara ALT [Catalytic activity/Vol] 58 U/L Normal 14-59 [facility] Comment on above: Performed By: #### C MP, JESSICA #### [facility] [address] [address] [address] Yvette Ohara Anion gap [Moles/Vol] 14.6 mmol/L Normal [facility] Comment on above: Performed By: #### C MP, JESSICA #### [facility] [address] [address] [address] Yvette Ohara AST [Catalytic activity/Vol] 27 U/L Normal 15-37 [facility] Comment on above: Performed By: #### C MP, JESSICA #### [facility] [address] [place] [address] Dr. Yvette Ohara Bilirubin [Mass/Vol] 1.4 mg/dL Critically high 0.2-1.0 [facility] Comment on above: Performed By: #### C MP, JESSICA #### [facility] [address] [place] [address] Dr. Yvette Ohara Calcium [Mass/Vol] 9.1 mg/dL Normal 8.5-10.1 [facility] Comment on above: Performed By: #### C MP, JESSICA #### [facility] [address] [place] [address] Dr. Yvette Ohara Chloride [Moles/Vol] 104 mmol/L Normal 98-107 [facility] Comment on above: Performed By: #### C MP, JESSICA #### [facility] [address] [place] [address] Dr. Yvette Ohara CO2 [Moles/Vol] 26.0 mmol/L Normal 21.0-32.0 [facility] Comment on above: Performed By: #### C MP, JESSICA #### [facility] [address] [place] [address] Dr. Yvette Ohara Creatinine [Mass/Vol] 0.92 mg/dL Normal 0.55-1.02 [facility] Comment on above: Performed By: #### C MP, JESSICA #### [facility] [address] [place] [address] Dr. Yvette Ohara EGFR-AF BRITISH >60 Normal >=60 [facility] Comment on above: Performed By: #### C MP, JESSICA #### [facility] [address] [address] [address] Yvette Ohara EGFR-NON AF BRITISH >60 Normal >=60 [facility] Comment on above: Performed By: #### C MP, JESSICA #### [facility] [address] [place] [address] Dr. Yvette Ohara Globulin (S) [Mass/Vol] 3.1 g/dL Normal [facility] Comment on above: Performed By: #### C MP, JESSICA #### [facility] [address] [place] [address] Dr. Yvette Ohara Glucose [Mass/Vol] 94 mg/dL Normal 74-106 [facility] Comment on above: Performed By: #### C MP, JESSICA #### [facility] [address] [place] [address] Dr. Yvette Ohara Potassium [Moles/Vol] 3.6 mmol/L Normal 3.5-5.1 [facility] Comment on above: Performed By: #### C MP, JESSICA #### [facility] [address] [place] [address] Dr. Yvette Ohara Protein [Mass/Vol] 7.2 g/dL Normal 6.4-8.2 [facility] Comment on above: Performed By: #### C MP, JESSICA #### [facility] [address] [place] [address] Dr. Yvette Ohara Sodium [Moles/Vol] 141 mmol/L Normal 136-145 [facility] Comment on above: Performed By: #### C MP, JESSICA #### [facility] [address] [place] [address] Dr. Yvette Ohara Urea nitrogen [Mass/Vol] 13.0 mg/dL Normal 7.0-18.0 [facility] Comment on above: Performed By: #### C MP, JESSICA #### [facility] [address], [place] [address] Dr. Yvette Ohara Urea nitrogen/Creatinine [Mass ratio] 14.1 mg/mg Normal [facility] Comment on above: Performed By: #### C JESSICA DOWLING #### [facility] [address], [place] [address] Dr. Yvette Ohara CNOVon 10-13-2022 CNOV Office Visit (GENSF) -------- CHARIS ALLEN ([id number]) 4 F Date Time Provider Department 10/13/22 [...] Allen is a 21 year old premenopausal [employer] who presents to the [facility] [place] today for evaluation of bilateral breast enlargement/pain. [...] MRI: No Colonoscopy: Yes diagnostic, Date in [facility]: 07/2015; results - negative RISK FACTORS [...] repeated afte (more content not included)... Normal [facility] Free T4 [Mass/Vol] 0.8 ng/dL Low 0.9-1.7 [facility] Comment on above: Order Comment: Irina johnson Type: BLOOD SPECIMEN Ordering Facility: [facility] Address: [address] [place] [address] Performed By: #### 3 024-7 #### [facility] CLIA [id number] [address] [place] [address] [place] TSH SerPl-aCncon 10-13-2022 TSH Qn 2.150 m[IU]/L Normal 0.510-4.30 0 [facility] Comment on above: Order Comment: Irina johnson Type: BLOOD SPECIMEN Ordering Facility: [facility] Address: [address] [place] [address] Result Comment: If t he patient is , TSH reference range varies by gestational period: First Trimester (weeks 9-12): 0.180-2.990 mIU/L Second Trimester: 0.110-3.980 mIU/L Third Trimester: 0.480-4.710 mIU/L Ángel Cervantes et al. A Practical Approach for the Verifications and Determination of Site- and Trimester-Specific Reference Intervals for Thyroid Function tests in . Thyroid, 2019:29:3:412-420. Prem Ledesma, et al. 2017 Guidelines of the [place] Thyroid Association for the Diagnosis and Management of Thyroid Disease during and the . Thyroid, 2017:27:3:315-389. Reference ranges were not locally established for this patient's age group. The normal values are based on the following source: Josh Vasquez V. Reference Ranges for Adults and Children: Pre-analytical Considerations. [employer] Performed By: #### 3 016-3 #### [facility] CLIA [id number] [address] [place] [address] [place] SARS-CoV-2 (COVID-19) RNA NA A+probe Ql (Resp)on 06-24-2022 SARS-CoV-2 (COVID-19) RNA JANET+probe Ql (Unsp spec) Negative [employer] Other MR Brain WO and W contrast [...] including diffusion and gradient echo images. 2-D caok-kw-rszmyo MRV and postcontrast MRV of the brain. [...] enhancement indicating patency. DIVISION OF RADIOLOGY Provider, [facility] - 12/29/2021 * * *Final Report* * * DATE OF EXAM: Dec 29 2021 12:13PM [facility] 0295 - MRI BRAIN WO/W IVCON / PROCEDURE REASON: Thunderclap headache * * * * Physician Interpretation * * * * EXAMINATION: MRI BRAIN WO/W IVCON, MRV BRAIN WO/W IVCON HISTORY: Thunderclap headache. Headache after Covid infection. TECHNIQUE: Routine brain MRI protocol without and with contrast including diffusion and gradient echo images. 2-D eada-al-mrvftq MRV and postcontrast MRV of the brain. [...] No evidence of dural venous sinus thrombosis. Favor Maker: FANTA Transcribe Date/Time: Dec 29 2021 12:34P Dictated by : MILTON WAGNER MD This examination was interpreted and the report reviewed and electronically signed by: MILTON WAGNER MD on Dec 29 2021 12:40PM [facility] MRA Head veins WO and W cont rast [place] 12-29-2021 * * *Final Report* * * DATE OF EXAM: Dec 29 2021 12:13PM [facility] 0336 - MRV BRAIN WO/W IVCON / PROCEDURE REASON: multiple diagnoses * * * * Physician Interpretation * * * * EXAMINATION: MRI BRAIN WO/W IVCON, MRV BRAIN WO/W IVCON HISTORY: Thunderclap headache. Headache after Covid infection. TECHNIQUE: Routine brain MRI protocol without and with contrast including diffusion and gradient echo images. 2-D rnsq-pe-dohmxq MRV and postcontrast MRV of the brain. [...] enhancement indicating patency. DIVISION OF RADIOLOGY Provider, [facility] - 12/29/2021 * * *Final Report* * * DATE OF EXAM: Dec 29 2021 12:13PM [facility] 0336 - MRV BRAIN WO/W IVCON / PROCEDURE REASON: multiple diagnoses * * * * Physician Interpretation * * * * EXAMINATION: MRI BRAIN WO/W IVCON, MRV BRAIN WO/W IVCON HISTORY: Thunderclap headache. Headache after Covid infection. TECHNIQUE: Routine brain MRI protocol without and with contrast including diffusion and gradient echo images. 2-D ucga-xj-aeplvw MRV and postcontrast MRV of the brain. [...] No evidence of dural venous sinus thrombosis. Favor Maker: FANTA Transcribe Date/Time: Dec 29 2021 12:34P Dictated by : MILTON WAGNER MD This examination was interpreted and the report reviewed and electronically signed by: MILTON WAGNER MD on Dec 29 2021 12:40PM [facility] No Panel Informationon 12-29 IMPRESSION: MRI BRAIN: No evidence of an acute intracranial process. Low-lying cerebellar tonsils. MRV BRAIN: No evidence of dural venous sinus thrombosis. Favor Maker: [facility] Transcribe Date/Time: Dec 29 2021 12:34P Dictated by : MILTON WAGNER MD This examination was interpreted and the report reviewed and electronically signed by: MILTON WAGNER MD on Dec 29 2021 12:40PM [facility] DIVISION OF RADIOLOGY Radiology Study observation (narrative) [facility] No Panel InformationOrdered By: Ccf Provider on 12-29-2021 [facility] ANKLE RIGHT 3 VWSon 06-13-20 17 ANKLE RIGHT 3 [facility] [address] [place] [address] ==Patient Name: CHARIS ALLEN : 2000Sex: FAge: Race: WhiteMRN: [id number]. Location: EMERPatient Status: ROOSEVELTisit #: [id number] Date: 06/13/2017 5:40:00 PMCompleted Date: 06/13/2017 05:54 PMRequesting Provider: SREEKNATH JOHNSON Attending Provider: SREEKANTH JOHNSON Report Copy To: Signs & Symptoms: Pain ( specify Location)History: Patient history not availableComments: R/O FXExam: ANKLE RIGHT 3 VWSAccession #: [id number] =========ANKLE RIGHT 3 VWS 06/13/2017 5:54 PM EDT [...] Electronically signed by:Faye Ramires M.D.. Transcribed by: [email or web address], User Resident: Electronically Signed by: FAYE RAMIRES @ 06/13/2017 06:44 PM Normal [facility] Comment on above: Order Comment: R/O F X Vital Signs Date Time Vital Sign Value Performing Clinician Facility 06-13-2025 10:39-0400 Body height 172.7 cm Anil Singhdenisse DO Work Phone: [facility] 06-13-2025 10:39-0400 Body mass index (BMI) [Ratio] 25.7 kg/m2 Anil Thapa DO Work Phone: [facility] 06-13-2025 10:39-0400 Body temperature 97.81 [degF] Anil hTapa DO Work Phone: [facility] 06-13-2025 10:39-0400 Body weight 76.66 kg Anil Thapa DO Work Phone: [facility] 06-13-2025 10:39-0400 Diastolic blood pressure 62 mm[Hg] Anil Thapa DO Work Phone: [facility] 06-13-2025 10:39-0400 Heart rate 98 /min Anil Thapa DO Work Phone: [facility] 06-13-2025 10:39-0400 SaO2% (BldA) [Mass fraction] 99 % Anil Thapa DO Work Phone: [facility] 06-13-2025 10:39-0400 Systolic blood pressure 108 mm[Hg] Anil Thapa DO Work Phone: [facility] 06-10-2025 08:58-0400 Body height 172.7 cm Jona Vann MD Work Phone: [facility] 06-10-2025 08:58-0400 Body mass index (BMI) [Ratio] 25.39 kg/m2 Jona Vann MD Work Phone: [facility] 06-10-2025 08:58-0400 Body weight 75.75 kg Jona Vann MD Work Phone: [facility] 06-10-2025 08:58-0400 Diastolic blood pressure 74 mm[Hg] Jona Vann MD Work Phone: [facility] 06-10-2025 08:58-0400 Systolic blood pressure 120 mm[Hg] Jona Vann MD Work Phone: [facility] 02-18-2025 21:50-0400 Diastolic blood pressure 78 mm[Hg] Katie Thapa DO Work Phone: [facility] 02-18-2025 21:50-0400 Heart rate 84 /min DianeDia Wesly Iniguezmagui DO Work Phone: [facility] 02-18-2025 21:50-0400 Respiratory rate 20 /min Katie Thapa DO Work Phone: [facility] 02-18-2025 21:50-0400 SaO2% (BldA) [Mass fraction] 98 % Katie Thapa DO Work Phone: [facility] 02-18-2025 21:50-0400 Systolic blood pressure 120 mm[Hg] Katie Thapa DO Work Phone: [facility] 02-18-2025 19:45-0400 Body temperature 98.4 [degF] Katie Thapa DO Work Phone: [facility] 02-18-2025 15:20-0400 Body height 167.64 cm Katie Thapa DO Work Phone: [facility] 02-18-2025 15:20-0400 Body weight 70.8 kg Katie Thapa DO Work Phone: [facility] 01-11-2025 19:22-0400 Heart rate 72 /min [facility] 01-11-2025 19:22-0400 Respiratory rate 18 /min Milton [facility] 01-11-2025 19:22-0400 SaO2% (BldA) [Mass fraction] 100 % Milton Garcia MD Work Phone: [employer] 01-11-2025 19:20-0400 Diastolic blood pressure 73 mm[Hg] Milton Garcia MD Work Phone: [employer] 01-11-2025 19:20-0400 Systolic blood pressure 108 mm[Hg] Milton Garcia MD Work Phone: [employer] 01-11-2025 18:30-0400 Body height 170.2 cm Milton Garcia MD Work Phone: [employer] 01-11-2025 18:30-0400 Body mass index (BMI) [Ratio] 24.53 kg/m2 Milton Garcia MD Work Phone: [facility] [employer] 01-11-2025 18:30-0400 Body temperature 98.01 [degF] Milton Garcia MD Work Phone: [facility] [employer] 01-11-2025 18:30-0400 Body weight 71.03 kg Milton Garcia MD Work Phone: [facility] [employer] 11-30-2024 23:39-0500 Body height 170.2 cm Rohit Rob MD Work Phone: [employer] 11-30-2024 23:39-0500 Body mass index (BMI) [Ratio] 23.63 kg/m2 Rohit Rob MD Work Phone: [employer] 11-30-2024 23:39-0500 Body temperature 97.59 [degF] Rohit Rob MD Work Phone: [employer] 11-30-2024 23:39-0500 Body weight 68.45 kg Rohit Rob MD Work Phone: [employer] 11-30-2024 23:39-0500 Diastolic blood pressure 75 mm[Hg] Rohit Rob MD Work Phone: [employer] 11-30-2024 23:39-0500 Heart rate 97 /min Rohit Rob MD Work Phone: [employer] 11-30-2024 23:39-0500 Respiratory rate 16 /min Rohit Rob MD Work Phone: [employer] 11-30-2024 23:39-0500 SaO2% (BldA) [Mass fraction] 100 % Rohit oRb MD Work Phone: [employer] 11-30-2024 23:39-0500 Systolic blood pressure 115 mm[Hg] Rohit Rob MD Work Phone: [employer] 11-16-2024 02:37-0500 Diastolic blood pressure 71 mm[Hg] Akiko Acosta MD Work Phone: [employer] 11-16-2024 02:37-0500 Heart rate 70 /min Akiko Acosta MD Work Phone: [employer] 11-16-2024 02:37-0500 Respiratory rate 13 /min Akiko Acosta MD Work Phone: [employer] 11-16-2024 02:37-0500 SaO2% (BldA) [Mass fraction] 100 % Akiko Acosta MD Work Phone: [employer] 11-16-2024 02:37-0500 Systolic blood pressure 106 mm[Hg] Akiko Acosta MD Work Phone: [employer] 11-16-2024 00:53-0500 Body height 167.6 cm Akiko Acosta MD Work Phone: [employer] 11-16-2024 00:53-0500 Body mass index (BMI) [Ratio] 24.28 kg/m2 Akiko Acosta MD Work Phone: [employer] 11-16-2024 00:53-0500 Body weight 68.22 kg Akiko Acosta MD Work Phone: [employer] 11-16-2024 00:51-0500 Body temperature 97.59 [degF] Akiko Acosta MD Work Phone: [employer] 11-04-2024 13:35-0500 Body height 170.2 cm Mill[employer]ain Jennings DO Work Phone: [facility] [email or web address] [facility] 11-04-2024 13:35-0500 Body mass index (BMI) [Ratio] 23.56 kg/m2 [employer] Biolog[employer]u Vu DO Work Phone: [facility] 11-04-2024 13:35-0500 Body temperature 98.1 [degF] Luis Enrique Vu DO Work Phone: [facility] 11-04-2024 13:35-0500 Body weight 68.22 kg Coltonu Vu DO Work Phone: [facility] 10-23-2024 15:48-0500 Body mass index (BMI) [Ratio] 24.28 kg/m2 Jona Vann MD Work Phone: [facility] 10-23-2024 15:48-0500 Body weight 70.31 kg Jona Vann MD Work Phone: [facility] 10-23-2024 15:48-0500 Diastolic blood pressure 64 mm[Hg] Jona Vann MD Work Phone: [facility] 10-23-2024 15:48-0500 Systolic blood pressure 100 mm[Hg] Jona Vann MD Work Phone: [facility] 10-21-2024 13:50-0500 Body height 170.2 cm Anil Thapa DO Work Phone: [facility] 10-21-2024 13:50-0500 Body mass index (BMI) [Ratio] 23.65 kg/m2 Anil Thapa DO Work Phone: [facility] 10-21-2024 13:50-0500 Body temperature 97.11 [degF] Anil Thapa DO Work Phone: [facility] 10-21-2024 13:50-0500 Body weight 68.49 kg Anil Thapa DO Work Phone: [facility] 10-21-2024 13:50-0500 Diastolic blood pressure 72 mm[Hg] Anil Thapa DO Work Phone: [facility] 10-21-2024 13:50-0500 Heart rate 75 /min Anil Thapa DO Work Phone: [facility] 10-21-2024 13:50-0500 SaO2% (BldA) [Mass fraction] 99 % Anil Thapa DO Work Phone: [facility] 10-21-2024 13:50-0500 Systolic blood pressure 108 mm[Hg] Anil Thapa DO Work Phone: [facility] 09-11-2024 10:34-0500 Body height 167.6 cm Osbaldo-Catie Vu DO Work Phone: [facility] 09-11-2024 10:34-0500 Body mass index (BMI) [Ratio] 23.38 kg/m2 Osbaldo-Catie Vu DO Work Phone: [facility] [employer] 09-11-2024 10:34-0500 Body temperature 97.59 [degF] Osbaldo-Catie Vu DO Work Phone: [facility] [employer] 09-11-2024 10:34-0500 Body weight 65.68 kg Osbaldo-Catie Vu DO Work Phone: [facility] [email or web address] [facility] 09-10-2024 16:03-0500 Body height 167.6 cm Mich Verde MD Work Phone: [facility] [employer] 09-10-2024 16:03-0500 Body mass index (BMI) [Ratio] 24.37 kg/m2 Mich Verde MD Work Phone: [facility] [employer] 09-10-2024 16:03-0500 Body weight 68.49 kg Mich Verde MD Work Phone: [facility] [email or web address] [facility] 09-10-2024 16:03-0500 Respiratory rate 18 /min Mich Verde MD Work Phone: [facility] [email or web address] [facility] 08-20-2024 14:49-0500 Body height 167.6 cm [employer] 3 [facility] [email or web address] [facility] 08-20-2024 14:49-0500 Body mass index (BMI) [Ratio] 22.11 kg/m2 Metro 3 [facility] 08-20-2024 14:49-0500 Body weight 62.14 kg Metro 3 [facility] 08-13-2024 14:14-0500 Body mass index (BMI) [Ratio] 23.81 kg/m2 Jona Vann MD Work Phone: [facility] 08-13-2024 14:14-0500 Body weight 68.95 kg Jona Vann MD Work Phone: [facility] 08-13-2024 14:14-0500 Diastolic blood pressure 58 mm[Hg] Jona Vann MD Work Phone: [facility] 08-13-2024 14:14-0500 Systolic blood pressure 100 mm[Hg] Jona Vann MD Work Phone: [facility] 08-07-2024 10:10-0400 Body height 167.6 cm Osbaldo-Catie Vu DO Work Phone: [facility] 08-07-2024 10:10-0400 Body mass index (BMI) [Ratio] 24.82 kg/m2 Osbaldo-Catie Vu DO Work Phone: [facility] 08-07-2024 10:10-0400 Body temperature 98.2 [degF] Osbaldo-Catie Vu DO Work Phone: [facility] 08-07-2024 10:10-0400 Body weight 69.76 kg Osbaldo-Catie Vu DO Work Phone: [facility] 07-17-2024 14:48-0400 Body height 170.2 cm Harmony MCDANIEL Work Phone: [facility] 07-17-2024 14:48-0400 Body mass index (BMI) [Ratio] 24.18 kg/m2 Harmony MCDANIEL Work Phone: [facility] 07-17-2024 14:48-0400 Body temperature 97.7 [degF] Harmony MCDANIEL Work Phone: [facility] 07-17-2024 14:48-0400 Body weight 70.03 kg Harmony MCDANIEL Work Phone: [facility] 07-17-2024 14:48-0400 Diastolic blood pressure 68 mm[Hg] Harmony German PA Work Phone: [facility] 07-17-2024 14:48-0400 Heart rate 70 /min Harmony German PA Work Phone: [facility] 07-17-2024 14:48-0400 SaO2% (BldA) [Mass fraction] 99 % Harmony German PA Work Phone: [facility] 07-17-2024 14:48-0400 Systolic blood pressure 116 mm[Hg] Harmony German PA Work Phone: [facility] 07-15-2024 15:38-0400 Body height 170.2 cm Mich Verde MD Work Phone: [facility] 07-15-2024 15:38-0400 Body mass index (BMI) [Ratio] 23.65 kg/m2 Mich Verde MD Work Phone: [facility] 07-15-2024 15:38-0400 Body weight 68.49 kg Mich Verde MD Work Phone: [facility] [email or web address] [facility] 07-03-2024 10:56-0400 Body height 170.2 cm Tiesha Rai PA-C Work Phone: [facility] 07-03-2024 10:56-0400 Body mass index (BMI) [Ratio] 23.65 kg/m2 Tiesha Alexanderisle PA-C Work Phone: [facility] [email or web address] [facility] 07-03-2024 10:56-0400 Body weight 68.49 kg Tiesha Zavalale PA-C Work Phone: [facility] 06-28-2024 02:48-0400 Diastolic blood pressure 58 mm[Hg] DO Katie Thapa Work Phone: [facility] 06-28-2024 02:48-0400 Heart rate 85 /min DO Katie Thapa Work Phone: [facility] 06-28-2024 02:48-0400 Respiratory rate 18 /min DO Katie Thapa Work Phone: [facility] 06-28-2024 02:48-0400 SaO2% (BldA) [Mass fraction] 100 % DO Katie Thapa Work Phone: [facility] 06-28-2024 02:48-0400 Systolic blood pressure 98 mm[Hg] DO Katie Thapa Work Phone: [facility] 06-27-2024 22:17-0400 Body height 170.18 cm DO Katie Thapa Work Phone: [facility] 06-27-2024 22:17-0400 Body temperature 97.9 [degF] DO Katie Thapa Work Phone: [facility] 06-27-2024 22:17-0400 Body weight 69.75 kg DO Katie Thapa Work Phone: [facility] 05-21-2024 13:37-0400 Body height 170.2 cm [facility] 4 [facility] [email or web address] [facility] 05-21-2024 13:37-0400 Body mass index (BMI) [Ratio] 24.31 kg/m2 Metro 4 [facility] [email or web address] [facility] 05-21-2024 13:37-0400 Body temperature 98.2 [degF] Metro 4 [facility] 05-21-2024 13:37-0400 Body weight 70.4 kg Metro 4 [facility] [email or web address] [facility] 05-21-2024 13:37-0400 Diastolic blood pressure 67 mm[Hg] Metro 4 [facility] [email or web address] [facility] 05-21-2024 13:37-0400 Heart rate 83 /min [facility] 4 [facility] [email or web address] [facility] 05-21-2024 13:37-0400 Respiratory rate 18 /min Metro 4 [facility] [employer] [facility] 05-21-2024 13:37-0400 SaO2% (BldA) [Mass fraction] 100 % Metro 4 [facility] [email or web address] [facility] 05-21-2024 13:37-0400 Systolic blood pressure 108 mm[Hg] Metro 4 [facility] [email or web address] [facility] 03-18-2024 14:24-0400 Body height 170.2 cm Mich Verde MD Work Phone: [facility] [email or web address] [facility] 03-18-2024 14:24-0400 Body mass index (BMI) [Ratio] 24.12 kg/m2 Mich Verde MD Work Phone: [facility] [email or web address] [facility] 03-18-2024 14:24-0400 Body temperature 98.4 [degF] Mich Verde MD Work Phone: [facility] 03-18-2024 14:24-0400 Body weight 69.85 kg Mich Verde MD Work Phone: [facility] [email or web address] [facility] 03-06-2024 16:25-0400 Body height 167.6 cm Tiesha Kidder PA-C Work Phone: [facility] [email or web address] [facility] 03-06-2024 16:25-0400 Body mass index (BMI) [Ratio] 24.86 kg/m2 Tiesha Kidder PA-C Work Phone: [facility] [email or web address] [facility] 03-06-2024 16:25-0400 Body temperature 98.6 [degF] Tiesha Kidder PA-C Work Phone: [facility] [email or web address] [facility] 03-06-2024 16:25-0400 Body weight 69.85 kg Tiesha Kidder PA-C Work Phone: [facility] [email or web address] [facility] 12-19-2023 12:47-0400 Body height 167.6 cm Tiesha Kidder PA-C Work Phone: [facility] [email or web address] [facility] 12-19-2023 12:47-0400 Body mass index (BMI) [Ratio] 26.21 kg/m2 Tiesha Kidder PA-C Work Phone: [facility] [email or web address] [facility] 12-19-2023 12:47-0400 Body temperature 98.4 [degF] Tiesha Kidder PA-C Work Phone: [facility] [email or web address] [facility] 12-19-2023 12:47-0400 Body weight 73.66 kg Tiesha Fredi SALES Work Phone: [employer] 11-08-2023 07:45-0500 Body height 167.64 cm Pérez Barcenas Other [employer] Other 11-08-2023 07:45-0500 Body mass index (BMI) [Ratio] 28.57 kg/m2 Pérez Barcenas Other [employer] Other 11-08-2023 07:45-0500 Body weight 80.29 kg Pérez Barcenas Other [employer] Other 11-08-2023 07:45-0500 Diastolic blood pressure 65 mm[Hg] Pérez Barcenas Other [employer] Other 11-08-2023 07:45-0500 Respiratory rate 18 /min Pérez Barcenas Other [employer] Other 11-08-2023 07:45-0500 SaO2% (BldA) [Mass fraction] 98 % Pérez Barcenas Other [employer] Other 11-08-2023 07:45-0500 Systolic blood pressure 102 mm[Hg] Pérez Barcenas Other [employer] Other 08-17-2023 21:29-0500 Body temperature 98.1 [degF] DO Katie Thapa Work Phone: [facility] 08-17-2023 21:29-0500 Diastolic blood pressure 72 mm[Hg] DO Katie Thapa Work Phone: [facility] 08-17-2023 21:29-0500 Heart rate 83 /min DO Katie Thapa Work Phone: 9(401)005-8941[address] [place] [address] 08-17-2023 21:29-0500 Respiratory rate 16 /min DO Katie Thapa Work Phone: [facility] 08-17-2023 21:29-0500 SaO2% (BldA) [Mass fraction] 98 % DO Katie Thapa Work Phone: [facility] 08-17-2023 21:29-0500 Systolic blood pressure 110 mm[Hg] DO Katie Thapa Work Phone: 6(623)175-300101 [place] [address] 08-17-2023 18:23-0500 Body height 167.64 cm DO Katie Thapa Work Phone: 2(082)957-448733 [place] [address] 08-17-2023 18:23-0500 Body mass index (BMI) [Ratio] 29 kg/m2 DO Katie Thapa Work Phone: 1(380)869-102301 [place] [address] 08-17-2023 18:23-0500 Body weight 81.64 kg DO Katie Thapa Work Phone: 3(898)098-051701 [place] [address] 08-17-2023 18:18-0500 Inhaled oxygen flow rate 10 L/min DO Katie Thapa Work Phone: 1(033)127-574601 [place] [address] 08-03-2023 18:45-0400 Diastolic blood pressure 75 mm[Hg] DO Katie Thapa Work Phone: 6(426)368-74[address] [place] [address] 08-03-2023 18:45-0400 Heart rate 98 /min DO Katie Thapa Work Phone: [facility] 08-03-2023 18:45-0400 Respiratory rate 16 /min DO Katie Thapa Work Phone: [facility] 08-03-2023 18:45-0400 SaO2% (BldA) [Mass fraction] 98 % DO Katie Thapa Work Phone: [facility] 08-03-2023 18:45-0400 Systolic blood pressure 108 mm[Hg] DO Katie Thapa Work Phone: [facility] 08-03-2023 17:28-0400 Inhaled oxygen flow rate 6 L/min DO Katie Thapa Work Phone: [facility] 08-03-2023 17:13-0400 Body temperature 97 [degF] DO Katie Thapa Work Phone: [facility] 08-03-2023 16:26-0400 Body height 167.64 cm DO Katie Thapa Work Phone: [facility] 08-03-2023 16:26-0400 Body mass index (BMI) [Ratio] 29 kg/m2 DO Katie Thapa Work Phone: [facility] 08-03-2023 16:26-0400 Body weight 81.64 kg DO Katie Thapa Work Phone: [facility] 06-09-2023 15:15-0400 Body height 170.18 cm Arti Brooklyn Other [employer] Other 06-09-2023 15:15-0400 Body mass index (BMI) [Ratio] 29.97 kg/m2 Arti Brooklyn Other [employer] Other 06-09-2023 15:15-0400 Body temperature 98.7 [degF] Arti Brooklyn Other [employer] Other 06-09-2023 15:15-0400 Body weight 86.82 kg Arti Brooklyn Other [employer] Other 06-09-2023 15:15-0400 Diastolic blood pressure 72 mm[Hg] Arti Brooklyn Other [employer] Other 06-09-2023 15:15-0400 Respiratory rate 18 /min Arti Barahona Other [employer] Other 06-09-2023 15:15-0400 SaO2% (BldA) [Mass fraction] 99 % Arti Barahona Other [employer] Other 06-09-2023 15:15-0400 Systolic blood pressure 117 mm[Hg] Arti Barahona Other [employer] Other 06-01-2023 09:06-0400 Body height 167.6 cm Mara Alcaraz MD Work Phone: [facility] 06-01-2023 09:06-0400 Body weight 88.81 kg Mara Alcaraz MD Work Phone: [facility] 04-04-2023 15:33-0400 Body weight 86.[address] Work Phone: [facility] 11-14-2022 11:32-0500 Body height 167.6 cm Sreekanth Samples Work Phone: [facility] 11-14-2022 11:32-0500 Body weight 90.72 kg Sreekanth Samples Work Phone: [facility] 11-14-2022 11:32-0500 Diastolic blood pressure 67 mm[Hg] Sreekanth Samples Work Phone: [facility] 11-14-2022 11:32-0500 Heart rate 85 /min Sreekanth Samples Work Phone: [facility] 11-14-2022 11:32-0500 SaO2% (BldA) [Mass fraction] 100 % Sreekanth Samples Work Phone: [facility] 11-14-2022 11:32-0500 Systolic blood pressure 112 mm[Hg] Sreekanth Samples Work Phone: [facility] 08-04-2022 13:03-0400 Heart rate 92 /min Lul Mcbride MD Work Phone: [facility] 08-04-2022 13:03-0400 SaO2% (BldA) [Mass fraction] 100 % Lul Mcbride MD Work Phone: [facility] 06-24-2022 18:35-0400 Body height 170.18 cm Zully Mendoza Other [employer] Other 06-24-2022 18:35-0400 Body mass index (BMI) [Ratio] 29.75 kg/m2 Zully Mendoza Other [employer] Other 06-24-2022 18:35-0400 Body temperature 99.3 [degF] Zully Mendoza Other [employer] Other 06-24-2022 18:35-0400 Body weight 86.18 kg Zully Mendoza Other [employer] Other 06-24-2022 18:35-0400 Respiratory rate 18 /min Zully Mendoza Other [employer] Other 06-24-2022 18:35-0400 SaO2% (BldA) [Mass fraction] 97 % Zully Mendoza Other [employer] Other 12-30-2021 08:11-0400 Diastolic blood pressure 71 mm[Hg] Sreekanth Samples Work Phone: [facility] 12-30-2021 08:11-0400 Heart rate 76 /min Sreekanth Samples Work Phone: [facility] 12-30-2021 08:11-0400 Systolic blood pressure 117 mm[Hg] Sreekanth Samples Work Phone: [facility] NEGATED: Highlighted row BMI (Body Mass Index) [facility] NEGATED: Highlighted row Body Temperature [facility] NEGATED: Highlighted row Body weight [facility] NEGATED: Highlighted row BP Diastolic [facility] NEGATED: Highlighted row BP Systolic [facility] NEGATED: Highlighted row Height [facility]ita [facility] NEGATED: Highlighted row Pulse (Heart Rate) [facility] NEGATED: Highlighted row Pulse Oximetry [facility] NEGATED: Highlighted row [facility] Encounters Encounter Date Encounter Type Care Provider Facility Start: 07-03-2025 End: 07-03-2025 Telephone encounter Otilia Oviedo [facility] Neurology, A Department of [facility] Start: 06-13-2025 End: 06-13-2025 [employer] Anil Thapa DO Work Phone: [facility] Start: 06-13-2025 End: 06-13-2025 [employer] Anil Thapa DO Work Phone: [facility] Start: 06-13-2025 End: 06-13-2025 Office outpatient visit 15 minutes Anil Thapa DO Work Phone: [facility] Comment on above: Major depressive dis order, single episode, mild ; Acne vulgaris; Attention deficit hyperactivity disorder (ADHD), combined type Start: 06-13-2025 End: 06-13-2025 ambulatory ANIL THAPA Not Available Start: 06-11-2025 End: 06-13-2025 Orders Only Jona Vann MD Work Phone: [facility] Comment on above: Urinary tract infect ion without hematuria, site unspecified (Primary Dx) Start: 06-10-2025 End: 06-16-2025 Orders Only Jona Vann MD Work Phone: [facility] External Department Unsolicited Start: 06-10-2025 End: 06-10-2025 Office outpatient visit 10 minutes Jona Vann MD Work Phone: [facility] Comment on above: Chiari malformation type I (HCC) (Primary Dx); Amenorrhea; Menorrhagia with irregular cycle; Excessive bleeding in premenopausal period; History of miscarriage; Vaginal burning; Vaginal itching; Vaginal irritation Start: 06-10-2025 End: 06-10-2025 ambulatory JONA VANN Not Available Start: 06-06-2025 End: 06-06-2025 ambulatory JONA VANN Not Available Start: 04-17-2025 End: 04-17-2025 Clinisync Result Encounter Generic External Data Provider [facility] External Department Unsolicited Start: 04-17-2025 End: 04-17-2025 Clinisync Result Encounter Generic External Data Provider [facility] External Department Unsolicited Start: 04-17-2025 End: 04-17-2025 ambulatory Katie Thapa DO Work Phone: [facility] Work Phone: Start: 04-17-2025 End: 04-17-2025 Departed Referred Chris White MD -LAB [facility] Start: 03-30-2025 End: 03-30-2025 Refill Tala Vazquez APRN-NIKI Work Phone: [facility] Obstetrics/Gynecology Comment on above: Miscarriage Start: 03-19-2025 End: 03-19-2025 Refill Mary Ann Levin MD Work Phone: Dermatology Comment on above: Refill Request Start: 02-27-2025 ambulatory MICH VERDE [facility] Start: 02-26-2025 End: 02-27-2025 ambulatory ANIL THAPA JR [facility] Start: 02-22-2025 End: 02-22-2025 [facility] Start: 02-22-2025 End: 02-22-2025 Subsequent hospital visit by physician Anil Thapa DO Work Phone: [facility] Start: 02-18-2025 End: 02-18-2025 Emergency department patient visit Katie Thapa DO Work Phone: [facility] Work Phone: Start: 02-15-2025 End: 02-17-2025 Refill Anil Thapa DO Work Phone: [facility] 230 Comment on above: Attention deficit hy peractivity disorder (ADHD), combined type ([facility]/HCC) Start: 01-15-2025 End: 01-15-2025 Refill Gm Gomez GAYE Work Phone: [facility] 230 Comment on above: Attention deficit hy peractivity disorder (ADHD), combined type ([facility]/HCC) Start: 01-11-2025 End: 01-11-2025 Emergency department patient visit Milton Garcia MD Work Phone: [facility] Emergency Department Comment on above: Vertigo (Primary Dx) Start: 01-07-2025 End: 01-07-2025 Refill Mary Ann Leivn MD Work Phone: Dermatology Comment on above: Refill Request Start: 01-07-2025 End: 01-08-2025 Refill Mary Ann Levin MD Work Phone: Dermatology Comment on above: Refill Request Start: 12-13-2024 End: 12-13-2024 Emergency department patient visit ANIL THAPA [facility] Start: 11-30-2024 End: 12-01-2024 Emergency department patient visit Rohit Rob MD Work Phone: [facility] Emergency Department Comment on above: Threatened miscarria ge in early (Primary Dx) Start: 11-29-2024 End: 11-29-2024 Clinisync Result Encounter Generic External Data Provider [facility] External Department Unsolicited Start: 11-29-2024 End: 11-29-2024 Clinisync Result Encounter Generic External Data Provider [facility] External Department Unsolicited Start: 11-22-2024 End: 11-22-2024 Telephone encounter Anil Thapa DO Work Phone: [facility] 230 Comment on above: Med Refill Start: 11-16-2024 End: 11-16-2024 Emergency department patient visit Akiko Acosta MD Work Phone: [facility] Emergency Department Comment on above: Acute gastroenteriti s (Primary Dx) Start: 11-04-2024 End: 11-04-2024 [facility] Work Phone: [facility] Comment on above: Lesion of tongue (Pr imary Dx) Start: 11-04-2024 End: 11-04-2024 ambulatory [facility] Start: 10-28-2024 End: 10-29-2024 Orders Only Jona Vann MD Work Phone: [facility] OB Comment on above: Acute vaginitis (Leslie sage Dx) Start: 10-23-2024 End: 10-23-2024 Office outpatient visit 15 minutes Jona Vann MD Work Phone: [facility] OB Comment on above: Acute vaginitis (Leslie sage Dx); Vaginal burning; Vaginal itching; Vaginal discharge; Vaginal odor; Amenorrhea Start: 10-23-2024 End: 10-23-2024 ambulatory JONA VANN Not Available Start: 10-21-2024 End: 10-21-2024 Bamboo flowsheet Anil Iniguezmagui DO Work Phone: [facility] 230 Start: 10-21-2024 End: 10-21-2024 Bamboo flowsheet Anil Iniguezmagui DO Work Phone: [facility] 230 Start: 10-21-2024 End: 10-21-2024 ambulatory ANIL THAPA Not Available Start: 10-21-2024 End: 10-21-2024 Office outpatient visit 15 minutes Anil Arenas Bonitamagui DO Work Phone: [facility] 230 Comment on above: Attention deficit hy peractivity disorder (ADHD), combined type (CMS/HCC) Start: 09-18-2024 End: 09-18-2024 Refill Gm Gomez LPN Work Phone: [facility] 230 Comment on above: Attention deficit hy peractivity disorder (ADHD), combined type (CMS/HCC) Start: 09-12-2024 End: 09-12-2024 Refill Mary Ann Levin MD Work Phone: Dermatology Comment on above: Refill Request Start: 09-11-2024 End: 09-11-2024 ambulatory OSABLDO-CATIE [facility] Start: 09-11-2024 End: 09-11-2024 Patient encounter procedure Osbaldo-Catie Vu DO Work Phone: [facility] Comment on above: Lesion of tongue (Pr imary Dx) Start: 09-10-2024 End: 09-10-2024 Office outpatient visit 15 minutes Mich Verde MD Work Phone: [facility] Ear, Nose and Throat Comment on above: Postop check (Primar y Dx) Start: 09-10-2024 Encounter for examination of ears and hearing without abnormal findings MICH VERDE [facility] Start: 09-10-2024 End: 09-10-2024 Clinical Support Ppbp Ent Audio 2 [facility] Comment on above: Hearing exam without abnormal findings (Primary Dx) Start: 09-10-2024 End: 09-10-2024 Patient encounter status Ppbp 2 [facility] Work Phone: Start: 09-04-2024 End: 09-11-2024 Telephone encounter Lata Otoole RN [facility] Start: 09-03-2024 End: 09-03-2024 Orders Only Osbaldo-Catie Vu DO Work Phone: [facility] Comment on above: Tongue swelling (Leslie sage Dx) Start: 08-29-2024 End: 08-29-2024 Telephone encounter Osbaldo-Catie Vu DO Work Phone: [facility] Start: 08-27-2024 End: 08-27-2024 Evaluation and management of inpatient CADEN THOMAS [facility] Start: 08-27-2024 End: 08-27-2024 Evaluation and management of inpatient [facility]-CATIE [facility] Start: 08-20-2024 End: 08-20-2024 Evaluation and management of inpatient ANIL THAPA JR [facility] Start: 08-20-2024 End: 08-20-2024 Admission to [facility] Pat Phone Call Provider 3 [facility] Start: 08-17-2024 End: 08-17-2024 Orders Only Jona Vann MD Work Phone: [facility] OB Comment on above: Vaginitis due to Tri chomonas (Primary Dx) Start: 08-16-2024 End: 08-16-2024 Refill Harmony German PA Work Phone: [facility] 230 Comment on above: Attention deficit hy peractivity disorder (ADHD), combined type (CMS/HCC) Start: 08-13-2024 End: 08-13-2024 Patient encounter status Jona Vann MD Work Phone: [facility] Start: 08-13-2024 End: 08-13-2024 Periodic preventive med est patient 18-39 yrs Jona Vann MD Work Phone: [facility] OB Comment on above: Screening for malign ant neoplasm of cervix; Encounter for gynecological examination without abnormal finding; Anxiety, generalized ([facility]); Vaginal discharge Start: 08-13-2024 End: 08-13-2024 ambulatory JONA VANN Not Available Start: 08-07-2024 End: 08-07-2024 Telephone encounter Osbaldo-Catie Vu DO Work Phone: [facility] Start: 08-07-2024 End: 08-07-2024 ambulatory OSBALDO-CATIE VU [facility] Start: 08-07-2024 End: 08-07-2024 Patient encounter procedure Osbaldo-Catie Vu DO Work Phone: [facility] Comment on above: Chronic throat pain (Primary Dx); Odynophagia; Tongue lesion; Post-nasal drip; Allergic rhinitis, unspecified seasonality, unspecified trigger Start: 07-25-2024 End: 07-25-2024 ambulatory ÁNGELA DELGADO Facility:[facility] Start: 07-25-2024 End: 07-25-2024 Patient encounter procedure Ángela Delgado DPM Work Phone: Podiatry Comment on above: Onychomycosis (Prima ry Dx); Tinea pedis, unspecified laterality Start: 07-17-2024 End: 07-17-2024 ambulatory HARMONY GERMAN Not Available Start: 07-17-2024 End: 07-17-2024 Office outpatient visit 15 minutes Harmony German PA Work Phone: [facility] 230 Comment on above: Attention deficit hy peractivity disorder (ADHD), combined type ([facility]) Start: 07-17-2024 End: 07-17-2024 Telephone encounter Doris Hernandez [facility] Start: 07-15-2024 End: 07-15-2024 Postop follow up visit related to original px Mich Verde MD Work Phone: [facility] Comment on above: Postop check (Primar y Dx) Start: 07-15-2024 End: 07-15-2024 ambulatory MICH VERDE [facility] Start: 07-10-2024 End: 07-10-2024 ambulatory [facility] Start: 07-03-2024 End: 07-03-2024 Office outpatient visit 10 minutes Tiesha Rai PA-C Work Phone: [facility] Comment on above: Chronic throat pain (Primary Dx); Odynophagia; Adenoid hypertrophy Start: 07-03-2024 End: 07-03-2024 ambulatory [facility] Alfredo [facility] Start: 07-01-2024 End: 07-01-2024 Clinisync Result Encounter Generic External Data Provider [facility] External Department Unsolicited Start: 07-01-2024 End: 07-01-2024 Clinisync Result Encounter Generic External Data Provider [facility] External Department Unsolicited Start: 06-27-2024 End: 06-28-2024 Emergency department patient visit DO Katie Thapa Work Phone: [facility] Work Phone: Start: 06-24-2024 End: 06-24-2024 Clinisync Result Encounter Generic External Data Provider [facility] External Department Unsolicited Start: 06-24-2024 End: 06-24-2024 Clinisync Result Encounter Generic External Data Provider [facility] External Department Unsolicited Start: 06-17-2024 End: 06-17-2024 Refill Gm Gomez GAYE Work Phone: [facility] 230 Comment on above: Attention deficit hy peractivity disorder (ADHD), combined type ([facility]) Start: 06-04-2024 End: 06-04-2024 Evaluation and management of inpatient WILTON Cas [facility] Start: 06-04-2024 End: 06-04-2024 Evaluation and management of inpatient [facility] Start: 05-21-2024 End: 05-21-2024 ambulatory [facility] Start: 05-21-2024 End: 05-21-2024 Patient encounter procedure [facility] Provider 4 [facility] Comment on above: Dysfunction of both eustachian tubes (Primary Dx) Start: 03-18-2024 End: 03-18-2024 Office outpatient visit 25 minutes Mich Verde MD Work Phone: [facility] Comment on above: Dysfunction of both eustachian tubes (Primary Dx); Hearing loss of right ear, unspecified hearing loss type; Otomycosis- right ear; Dysfunction of right eustachian tube; Acute right otitis media Start: 03-18-2024 End: 03-18-2024 ambulatory [facility] Start: 03-07-2024 End: 03-07-2024 Orders Only Tiesha Rai PA-C Work Phone: [facility] Start: 03-06-2024 End: 03-06-2024 ambulatory [facility] Alfredo [facility] Start: 03-06-2024 End: 03-06-2024 Office outpatient visit 10 minutes Tiesha Rai PA-C Work Phone: [facility] Comment on above: Dysfunction of both eustachian tubes (Primary Dx); Otomycosis- right ear; Hearing loss of right ear, unspecified hearing loss type Start: 02-05-2024 End: 02-05-2024 Telephone encounter Jessica [facility] Start: 12-26-2023 End: 12-26-2023 ambulatory ÁNGELA DELGADO Facility:[facility] Start: 12-26-2023 End: 12-26-2023 Patient encounter procedure Ángela Delgado DPM Work Phone: Podiatry Comment on above: Onychomycosis (Prima ry Dx); Ingrown toenail; Toe pain, bilateral; Tinea pedis, unspecified laterality Start: 12-25-2023 ambulatory Mary Ann Levin MD Work Phone: Dermatology Comment on above: Ance Start: 12-19-2023 End: 12-19-2023 Office outpatient visit 10 minutes Tiesha Rai PA-C Work Phone: [facility] Comment on above: Otomycosis- right ea r (Primary Dx); Dysfunction of both eustachian tubes; Hearing loss of right ear, unspecified hearing loss type Start: 11-21-2023 End: 11-21-2023 ambulatory SELF Facility:[facility] Start: 11-21-2023 End: 11-21-2023 Patient encounter procedure Ángela Delgado DPM Work Phone: Podiatry Comment on above: Onychomycosis (Prima ry Dx); Ingrown toenail; Toe pain, bilateral; Medication monitoring encounter Start: 11-09-2023 End: 11-09-2023 ambulatory Pérez Barcenas Other [employer] Other Start: 11-09-2023 Encounter by arlene Barcenas [facility] Start: 11-09-2023 Telephone encounter Pérez Barcenas [facility] Start: 11-08-2023 Nutrition therapy Pérez bl[facility] Start: 11-08-2023 Telephone encounter [facility] Start: 11-08-2023 Registered Recurring DO Katie [place] madeline Alanis Work Phone: [facility] Work Phone: Start: 11-08-2023 End: 11-08-2023 ambulatory DO Katie Iniguezmarendenisse Work Phone: [employer] Other Start: 11-08-2023 End: 11-08-2023 Patient encounter procedure DO Katie Iniguezmarendenisse Work Phone: [facility] [place] Work Phone: Start: 09-23-2023 End: 09-23-2023 ambulatory Patricia Salas Other [employer] [facility] [employer] Other Start: 09-23-2023 Patient encounter procedure Patricia Salas [facility] [place] Start: 09-23-2023 Patient encounter procedure DO Katie Iniguezmagui Work Phone: [facility]- Start: 08-17-2023 End: 08-17-2023 Admission to same day surgery center DO Katie Iniguezmarendenisse Work Phone: [facility] [place] Start: 08-17-2023 End: 08-17-2023 ambulatory DO Katie Iniguezmarendenisse Work Phone: [facility] Work Phone: Start: 08-16-2023 Telephone encounter Mara barrios MD Work Phone: Internal Medicine Comment on above: Patient Question Start: 08-16-2023 End: 08-16-2023 ambulatory Mary Ann Levin MD Work Phone: Dermatology Comment on above: Acne vulgaris (Prima ry Dx) Start: 08-16-2023 End: 08-16-2023 Telemedicine consultation with patient Mary Ann Levin MD Work Phone: [facility] Start: 08-03-2023 End: 08-03-2023 Admission to same day surgery center DO Katie Thapa Work Phone: [facility] [place] Start: 08-03-2023 End: 08-03-2023 ambulatory DO Katie Thapa Work Phone: [facility] Work Phone: Start: 07-18-2023 Telephone encounter Mary Ann reynolds MD Work Phone: Dermatology Comment on above: Medication Question Start: 06-25-2023 ambulatory Mary Ann Levin MD Work Phone: Dermatology Comment on above: Ance Start: 06-09-2023 End: 06-09-2023 ambulatory Arti Barahona Other [employer] Other Start: 06-09-2023 Office outpatient vi sit 15 minutes Arti Barahona [facility] [place] Start: 06-08-2023 Telephone [...] End: 04-04-2023 Telemedicine consultation with patient Kerry Jain RD Work Phone: [facility] Start: 01-03-2023 End: 01-04-[address] Diane THAPA Facility:[facility] Start: 12-30-2022 ambulatory MARGOT BLACKMAN [facility] Start: 12-29-2022 Telephone encounter Mary Ann reynolds MD Work Phone: Dermatology Comment on above: Patient Question Start: 12-16-2022 End: 12-17-2022 ambulatory Katie [facility]APA [facility] Start: 12-15-2022 End: 12-16-[address] DOCTOR MIKE Facility:[facility] Start: 12-14-2022 ambulatory [facility] Start: 12-13-2022 ambulatory Wesly KEEN Facility: [facility] [place] Start: 12-12-2022 ambulatory Wesly KEEN Facility: [facility] [place] Start: 11-18-2022 ambulatory Ludy ROBLES [employer] Comment on above: Pt would like a neur ology 2nd opinion appt. 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] Start: 11-14-2022 End: 11-14-2022 Patient encounter procedure Sreekanth Sood MD Work Phone: Neurology Comment on above: Cerebellar tonsillar ectopia (HCC) (Primary Dx); Exertional headache; Cervicalgia; Macromastia Start: 11-02-2022 ambulatory Aminata husain RN [facility] Start: 11-02-2022 Patient encounter procedure Aminata Montgomery RN NURSE [employer] OPERATOR Comment on above: Referral Information Start: 10-21-2022 End: 10-22-[address] Diane THAPA Facility: Start: 10-13-2022 End: 10-14-2022 ambulatory DIANNA VILLA Facility:[facility] Start: 10-11-2022 End: 10-12-2022 ambulatory [...] patient Mary Ann Levin MD Work Phone: [facility] Start: 08-09-2022 ambulatory Mary Ann Levin MD Work Phone: Dermatology Comment on above: Ance medicine Start: 08-05-2022 Telephone encounter No Pcp [address] [place] [address] Comment on above: Medication Problem Start: 08-04-2022 [...] 06-24-2022 End: 06-24-2022 ambulatory Zully Mendoza Other [employer] Other Start: 06-24-2022 Office outpatient vi sit 15 minutes Zully Mendoza [facility] [place] Start: 05-15-2022 Refill Mary Ann Levin MD Work Phone: Dermatology Comment on above: Refill Request Start: 05-12-2022 End: 05-12-2022 Patient encounter procedure Mary Ann Levin MD Work Phone: Dermatology Comment on above: APPOINTMENT CANCELLE D (Primary Dx) Start: 04-04-2022 End: 04-04-2022 ambulatory Srekeanth Sood MD Work Phone: Neurology Comment on above: Cerebellar tonsillar ectopia (HCC) (Primary Dx); Exertional headache; 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 Start: 12-29-2021 ambulatory Francheska Marinelli RT(R) Ra valle Comment on above: Radiology MRI Start: 12-29-2021 Patient encounter procedure Francheska MONTOYA(R) VU WHEELERAIN Start: 12-29-2021 End: 12-29-2021 Subsequent hospital visit by physician Mri [facility] Mercedes (1.5t) Work Phone: Radiology Comment on above: [place]cl[place] headache [G44.53] Start: 05-22-2019 End: 05-22-2019 Departed Referred [facility] Start: 06-13-2017 End: 06-13-2017 Emergency department patient visit SREEKANTH JOHNSON Facility:[facility] Procedures Date Procedure Procedure Detail Performing Clinician Start: 06-10-2025 METHYLENETETRAHYDROFOLATE REDUCTASE (MTHFR) THERMOLABILS Jona Vann MD Work Phone: Start: 04-17-2025 URINE CULTURE - [facility] Generic External Data Provider Start: 02-22-2025 Gonadotropin chorionic quantitative Jona Vann MD Work Phone: Start: 02-18-2025 Diagnostic ultrasound of gravid uterus GDia Wesly Thapa DO Work Phone: Start: 02-18-2025 Determination of growth of fungi GDia Tubbs rt Alanis DO Work Phone: Start: 02-18-2025 Trichomonas vaginalis detection GDia garcía Alanis DO Work Phone: Start: 02-18-2025 Transvaginal obstetric ultrasonography DianeDia Wesly Thapa DO Work Phone: Start: 01-11-2025 End: 01-11-2025 Comprehensive metabolic panel Bipin Garcia MD Work Phone: Start: 12-01-2024 Urnls dip stick/tablet rgnt auto w/o microscopy Rohit Rob MD Work Phone: Start: 12-01-2024 End: 12-01-2024 Comprehensive metabolic panel Rohit drew MD Work Phone: Start: 11-29-2024 [facility] PREG QUANT HCG Jona Vann MD Work Phone: Start: 11-16-2024 Urnls dip stick/tablet rgnt auto w/o microscopy Akiko Acosta MD Work Phone: Start: 11-16-2024 Ct abdomen & pelvis w/contrast material Akiko Acosta MD Work Phone: Start: 11-16-2024 Radiologic exam chest single view Akiko bruner MD Work Phone: Start: 11-16-2024 COVID-19, RAPID Akiko Acosta MD Work Phone: Start: 11-16-2024 Iaadiadoo influenza Akiko Acosta MD Work Phone: Start: 11-16-2024 Ecg routine ecg w/least 12 lds w/i&r Akiko Acosta MD Work Phone: Start: 11-16-2024 Comprehensive metabolic panel Akiko Acosta MD Work Phone: Start: 11-04-2024 Follow-up visit Follow-up OSBALDO CATIE VU Start: 10-23-2024 Urine test visual color cmprsn meths Jona Vann MD Work Phone: Start: 09-10-2024 Follow-up visit Follow-up MICH VERDE Start: 07-01-2024 [facility] PREG QUANT HCG Jona Vann MD Work Phone: Start: 06-28-2024 Trichomonas vaginalis detection DO DianeDia Melonie abdulaziz Bonitamagui Work Phone: Start: 06-24-2024 [facility] PREG QUANT HCG Generic External Data Provider Start: 08-17-2023 Dilation and curettage of uterus DO Katie Thapa Work Phone: Start: 08-03-2023 Hysteroscopy DO DianeDia Thapa Work Phone: Start: 06-19-2023 Adult depression screening assessment Tiesha Rai PA-C Work Phone: Start: 11-16-2022 Mri brain brain stem w/o w/contrast material Sreekanth Sood MD Work Phone: Start: 04-04-2022 Adult depression screening assessment Sreekanth Sood MD Work Phone: Start: 12-29-2021 Mri brain brain stem w/o w/contrast material Sreekanth Sood MD Work Phone: Start: 12-22-2021 Adult depression screening assessment Francheska Marinelli RT(R) Start: 05-22-2019 Aerobic Culture Margarita Chiu Start: 05-22-2019 Anaerobic Culture Margarita Chiu Start: 05-22-2019 Microscopic observation Gram stain Nom (Unsp spec) Margarita Chiu Plan of Treatment Date Care Activity Detail Author Start: 02-27-2026 Tobacco Screening Tobacco Screening [facility] Start: 02-26-2026 Adult BMI Screening Adult BMI Screen ing [facility] Start: 11-04-2025 Adult BMI Screening Adult BMI Screen ing [facility] Start: 09-11-2025 Adult BMI Screening Adult BMI Screen ing [facility] Start: 09-11-2025 Tobacco Screening Tobacco Screening [facility] Start: 08-27-2025 Adult BMI Screening Adult BMI Screen ing [facility] Start: 08-27-2025 Tobacco Screening Tobacco Screening [facility] Start: 08-20-2025 Adult BMI Screening Adult BMI Screen ing [facility] Start: 08-20-2025 Tobacco Screening Tobacco Screening [facility] Start: 08-14-2025 End: 08-14-2025 Patient encounter procedure BRANDEN KING OB Start: 07-15-2025 Adult BMI Screening Adult BMI Screen ing [facility] Start: 07-15-2025 Tobacco Screening Tobacco Screening [facility] Start: 07-15-2025 End: 07-15-2025 Patient encounter procedure 07/15/2025 8:45 AM EDT Office Visit BRANDEN APONTE [address] [place] [id number] Jona Vann MD [address] [facility] [address] [place] [address] BRANDEN APONTE Start: 07-03-2025 Adult BMI Screening Adult BMI Screen ing [facility] Start: 07-03-2025 Tobacco Screening Tobacco Screening [facility] Start: 06-25-2025 DTaP,Tdap and Td Vaccines (7 - Td or Tdap) DTaP,Tdap and Td Vaccines (7 - Td or Tdap) [facility] Start: 06-25-2025 DTaP/Tdap/Td vaccine (7 - Td or Tdap) DTaP/Tdap/Td vaccine (7 - Td or Tdap) [facility] Start: 06-25-2025 Urine microalbumin profile DTaP,Tdap,Td Vaccine (7 - Td or Tdap) [facility] Start: 06-13-2025 End: 06-13-2025 Patient encounter procedure [facility] 230 Comment on above: Major depressive dis order, single episode, mild Start: 06-10-2025 End: 06-10-2026 Ferritin [Mass/volume] in Serum or Plasma Ferritin Lab Routine Amenorrhea Menorrhagia with irregular cycle Excessive bleeding in premenopausal period Expected: 06/10/2025 (Approximate), Expires: 06/10/2026 [facility] Comment on above: Expected: 06/10/2025 (Approximate), Expires: 06/10/2026 Start: 06-10-2025 End: 06-10-2026 MTHFR mutation MTHFR mutation Lab Routine History of miscarriage Expected: 06/10/2025 (Approximate), Expires: 06/10/2026 [facility] Work Phone: Comment on above: Expected: 06/10/2025 (Approximate), Expires: 06/10/2026 Start: 06-09-2025 COVID-19 Vaccine ( season) COVID-19 Vaccine ( season) [facility] Start: 06-09-2025 Influenza vaccination P [facility] Start: 05-21-2025 Adult BMI Screening Adult BMI Screen ing [facility] Start: 05-21-2025 Tobacco Screening Tobacco Screening [facility] Start: 05-01-2025 End: 05-01-2025 Patient encounter procedure 05/01/2025 4:15 PM EDT Office Visit Dermatology [address] [place] [address] Mary Ann Levin MD [address] [place] [address] requesting refills Dermatology Comment on above: requesting refills Start: 04-17-2025 Bacteria identified in Urine by Culture Urine Culture [facility] Start: 04-17-2025 Urine culture [facility] Start: 03-18-2025 Adult BMI Screening Adult BMI Screen ing [facility] Start: 03-18-2025 Tobacco Screening Tobacco Screening [facility] Start: 03-06-2025 Adult BMI Screening Adult BMI Screen ing [facility] Start: 03-06-2025 Tobacco Screening Tobacco Screening [facility] Start: 02-19-2025 End: 02-19-2025 Patient encounter procedure 02/19/2025 12:45 PM EDT Office Visit Dermatology [address] [facility] [address] [place], [place] [id number] Mary Ann Levin MD [address] [place], [place] [id number] 2 months follow up for acne Dermatology Comment on above: 2 months follow up f or acne Start: 02-18-2025 [facility] Start: 12-18-2024 Adult BMI Screening Adult BMI Screen ing [facility] Start: 12-18-2024 Tobacco Screening Tobacco Screening [facility] Start: 12-03-2024 End: 12-03-2024 Patient encounter procedure 12/03/2024 8:40 AM EST Office Visit [facility] [address] [place] [address] Anil Thapa DO [address] [place] [address] [facility] Start: 11-04-2024 End: 11-04-2024 Patient encounter procedure 11/04/2024 1:45 PM EST Office Visit [facility] [address] [facility] [place] [address] [facility] [address] [facility] [place] [address] [facility] Start: 10-15-2024 End: 10-15-2024 Patient encounter procedure 10/15/2024 10:00 AM EST Office Visit [facility] [address] [place] [address] Anil Thapa, DO [address] [place] [address] [facility] Start: 10-10-2024 End: 10-10-2024 Patient encounter procedure 10/10/2024 1:45 PM EST Office Visit Dermatology [address] [facility] [place] [address] Mary Ann Levin MD [address] [facility] [place], [place] [id number] [facility] Comment on above: [facility] Start: 09-11-2024 End: 09-11-2024 Patient encounter procedure 09/11/2024 10:30 AM EST Office Visit [facility] [address] [place] [address], [address] [place] [address] [facility] DO [address] [facility] [address] [place] [address] [facility] Start: 09-10-2024 End: 09-10-2024 Clinical Support [facility] Start: 09-09-2024 End: 09-09-2024 Patient encounter procedure 09/09/2024 9:45 AM EST Office Visit [facility] [address] [place] [address], [address] [place] [address] [facility], DO [address] [facility] [place] [address] [facility] Start: 08-27-2024 End: 08-27-2024 Admission to same day surgery center 08/27/2024 12:45 PM EST - 08/27/2024 1:45 PM EST Surgery [facility] Surgery [address] [place] [address] [facility] DO [address] [facility] [address] [place] [address] DIRECT LARYNGOSCOPY WITH BIOPSY BASE OF TONGUE LESION [16162 (CPT )] [facility] Surgery Comment on above: DIRECT LARYNGOSCOPY WITH BIOPSY BASE OF TONGUE LESION [22104 (CPT )] Start: 08-27-2024 End: 08-27-2024 Laryngoscopy direct operative w/biopsy DIRECT LARYNGOSCOPY Lesion of tongue 08/27/2024 12:45 PM EST [facility] Start: 08-27-2024 Subsequent hospital visit by physician 08/27/2024 12:45 PM EST Hospital Encounter [facility] Surgery [address] [place] [address] [facility], DO [address] [address] [facility] Start: 08-27-2024 End: 08-27-2024 Laryngoscopy direct operative w/biopsy DIRECT LARYNGOSCOPY Lesion of tongue 08/27/2024 10:13 AM EST [facility] Start: 08-13-2024 End: 08-13-2024 Patient encounter procedure 08/13/2024 1:45 PM EST Office Visit [facility] [address] [facility] [address] [place] [address] Jona Vann MD [address] [facility] [address] [place], [place] [id number] [facility] Start: 08-08-2024 End: 08-08-2024 Patient encounter procedure 08/08/2024 10:00 AM EDT Office Visit [facility] [address] [place] [address] Renita Ellis, [employer] [address] [place] [address] [facility] Start: 08-07-2024 End: 08-07-2024 Patient encounter procedure 08/07/2024 10:00 AM EDT Office Visit [facility] [address] [place] [address] DickGarySonja, DO [address] [facility] [address] [place] [address] [facility] Start: 07-24-2024 End: 07-24-2024 Patient encounter procedure 07/24/2024 10:00 AM EDT Office Visit [facility] [address] [place] [address] Renita Ellis, [employer] [address] [place] [address] [facility] Start: 07-15-2024 End: 07-15-2024 Patient encounter procedure 07/15/2024 3:30 PM EDT Office Visit [facility] [address] [facility] [address] [place] [address] [place] [address] [place] [address] [address] [place] [address] [facility] Start: 07-03-2024 End: 07-03-2025 CT Neck W contrast IV CT neck soft tissue with contrast Imaging Routine Chronic throat pain Odynophagia Expected: 07/03/2024, Expires: 07/03/2025 [facility] Work Phone: Comment on above: Expected: 07/03/2024 , Expires: 07/03/2025 Start: 06-28-2024 Computed tomography of abdomen and pelvis with contrast CT abdomen pelvis w con [facility] Start: 06-28-2024 CT Abdomen and Pelvi s W contrast IV [facility] Start: 06-28-2024 [facility] Start: 06-27-2024 Bacteria identified in Urine by Culture [facility] Start: 06-19-2024 [facility]: 06-09-2024 COVID-19 Vaccine ( season) COVID-19 Vaccine ( season) [facility] Start: 06-09-2024 Covid-19 Vaccine ( season) Covid-19 Vaccine () [facility] Start: 06-09-2024 Influenza vaccination [facility] Start: 06-04-2024 End: 06-04-2024 Admission to same day surgery center 06/04/2024 9:00 AM EDT - 06/04/2024 9:30 AM EDT Surgery [address] [address] Mich Verde MD [address] [place] [address] REMOVAL TUBE EAR [58373 (CPT )] [facility] Comment on above: REMOVAL TUBE EAR [69 424 (CPT )] Start: 06-04-2024 Subsequent hospital visit by physician 06/04/2024 9:00 AM EDT Hospital Encounter [address] [address] Mich Verde MD [address] [place] [address] [facility] Start: 06-04-2024 End: 06-04-2024 Tympanic memb rpr w/wo prepj perfor patch APPLICATION GRAFT PAPER PATCH EAR Dysfunction of both eustachian tubes Hearing loss of right ear, unspecified hearing loss type Otomycosis Acute right otitis media Cerumen debris on tympanic membrane of both ears Chronic mucoid otitis media of both ears 06/04/2024 9:00 AM EDT [facility] Start: 06-04-2024 End: 06-04-2024 Ventilating tube rmvl requiring general anes REMOVAL TUBE EAR Dysfunction of both eustachian tubes Hearing loss of right ear, unspecified hearing loss type Otomycosis Acute right otitis media Cerumen debris on tympanic membrane of both ears Chronic mucoid otitis media of both ears 06/04/2024 9:00 AM EDT [facility] Start: 04-08-2024 End: 04-08-2024 Patient encounter procedure 04/08/2024 4:15 PM EDT Office Visit [facility] [address] [facility] [address] [place] [address] Tiesha Ria, PATanishaC [address] [place] [address] [facility] Start: 03-18-2024 End: 03-18-2024 Patient encounter procedure 03/18/2024 2:30 PM EDT Office Visit [facility] [address] [facility] [address] [place] [address] Mich Verde MD [address] [place] [address] [address] [place] [address] [facility] Start: 02-13-2024 End: 02-13-2024 Patient encounter procedure 02/13/2024 2:00 PM EDT Office Visit [facility] [address] [facility] [address] [place] [address] Mich Verde MD [address] [place] [address] [address] [place] [address] [facility] Start: 02-06-2024 End: 02-06-2024 Patient encounter procedure 02/06/2024 1:15 PM EDT Office Visit [facility] [address] [facility] [place] [address] Tiesha Rai, PA-C [address] [facility] [address] [place] [address] [facility] Start: 11-21-2023 End: 02-20-2024 Hepatic function 2000 panel - Serum or Plasma HEPATIC FUNCTION PNL Lab Routine Medication monitoring encounter Expected: 11/21/2023, Expires: 02/20/2024 [facility] Work Phone: Comment on above: Expected: 11/21/2023 , Expires: 02/20/2024 Start: 2023 Screening for malign ant neoplasm of cervix [facility] Start: 10-09-2023 Depression Assessment Depression Ass [facility] Start: 08-17-2023 [facility] Start: 08-03-2023 End: 08-03-2023 [facility] Start: 06-09-2023 Covid-19 Vaccine ( season) Covid-19 Vaccine ( season) [facility] Start: 06-09-2023 [facility] Start: 04-04-2023 Adult depression screening assessment DEPRESSION SCREENING [facility] Start: 12-22-2022 Adult depression screening assessment DEPRESSION SCREENING [facility] Start: 10-09-2022 [facility] Start: 06-09-2022 Influenza vaccination INFLUENZA (#1) [facility] Start: 10-09-2021 [facility]PRESSION [facility] Start: 2020 Adult BMI Follow Up Plan Adult BMI Follow Up Plan [facility] Start: 2020 CHLAMYDIA SCREENING (18-24) CHLAMYDIA SCREENING (18-24) [facility] Start: 2020 Depression Screening Depression Scre ening [facility] Start: 2020 GC (GONORRHEA) SCREENING (18-24) GC (GONORRHEA) SCREENING (18-24) [facility] Start: 2020 HEPATITIS C SCREENING HEPATITIS C SC REENING [facility] Start: 2020 [facility] Start: 2020 HIV SCREENING HIV SCREENING [facility] Start: 2020 HIV screening HIV Screening [facility] Start: 2020 Screening for Chlamy magaly trachomatis Chlamydia Screening (18-24) [facility] Start: 2018 Meningococcal B Vacc ine (1 of 2 - Standard) Meningococcal B Vaccine (1 of 2 - Standard) [facility] Start: 2018 Meningococcal B Vaccine: Consider Based On Risk (1 of 2 - Patient Seeks Protection) Meningococcal B Vaccine: Consider Based On Risk (1 of 2 - Patient Seeks Protection) [facility] Start: 2018 MENINGOCOCCAL B: Consider based on risk (1 of 2 - Patient Seeks Protection) MENINGOCOCCAL B: Consider based on risk (1 of 2 - Patient Seeks Protection) [facility] Start: 2018 Screening for Chlamy magaly trachomatis Chlamydia/GC screen [facility] Start: 2017 HIV screening HIV screen [facility] Start: 06-17-2017 HPV VACCINE (2 - 2-d ose series) HPV VACCINE (2 - 2-dose series) [facility] Start: 2016 PEDS TO ADULT TRANSITION ANNUAL ASSESSMENT PEDS TO ADULT TRANSITION ANNUAL ASSESSMENT [facility] Start: 2014 Depression Screen Depression Screen [facility] Start: 2014 PEDS TO ADULT TRANSITION INITIAL DISCUSSION PEDS TO ADULT TRANSITION INITIAL DISCUSSION [facility] Start: 2013 Urine microalbumin profile [facility] Start: 2012 MENINGOCOCCAL B: Consider based on risk (1 of 2 - Risk Bexsero 2-dose series) MENINGOCOCCAL B: Consider based on risk (1 of 2 - Risk Bexsero 2-dose series) [facility] Start: 02-27-2008 Varicella vaccine (2 of 2 - 2-dose childhood series) Varicella vaccine (2 of 2 - 2-dose childhood series) [facility] Start: 2007 COVID-19 VACCINE (#1) COVID-19 VACCI NE (#1) [facility] Start: 2007 COVID-19 VACCINE (1) COVID-19 VACCIN E (1) [facility] Start: 04-17-2003 COVID-19 VACCINE (#1) COVID-19 VACCI NE (#1) [facility] Bacteria identified in Urine by Culture Urine culture Microbiology Routine Vaginal burning Ordered: 10/23/2024 [facility] Comment on above: Ordered: 10/23/2024 Bacteria identified in Urine by Culture Urine culture Microbiology Routine Vaginal burning Vaginal itching Vaginal irritation Ordered: 06/10/2025 [facility] Comment on above: Ordered: 06/10/2025 CBC W Auto Different ial panel - Blood CBC and differential Lab Routine Amenorrhea Menorrhagia with irregular cycle Excessive bleeding in premenopausal period Ordered: 06/10/2025 [facility] Comment on above: Ordered: 06/10/2025 End: 07-15-2025 Comprehensive hearing test Comprehensive hearing test Audiology Routine Postop check 1 Occurrences starting 07/15/2024 until 07/15/2025 [facility] Work Phone: Comment on above: 1 Occurrences starti ng 07/15/2024 until 07/15/2025 EKG 12 Lead (Chest Pain) EKG 12 Lead (Chest Pain) ECG STAT 11/16/2024 1:16 AM EST [facility] GENITAL MYCOPLASMAS JANET, SWAB GENITAL MYCOPLASMAS JANET, SWAB Pathology and Cytology Routine Vaginal burning Vaginal itching Vaginal discharge Vaginal odor Ordered: 10/23/2024 [facility] Work Phone: Comment on above: Ordered: 10/23/2024 hCG, quantitative hCG, quantitat woody Lab Routine Amenorrhea Ordered: 06/10/2025 [facility] Comment on above: Ordered: 06/10/2025 Iron and Iron bindin g capacity panel - Serum or Plasma Iron and TIBC Lab Routine Amenorrhea Menorrhagia with irregular cycle Excessive bleeding in premenopausal period Ordered: 06/10/2025 [facility] Comment on above: Ordered: 06/10/2025 Lipoprotein a [Moles/volume] in Serum or Plasma [facility] Lupus anticoagulant Lupus antico agulant Lab Routine History of miscarriage Ordered: 06/10/2025 [facility] Comment on above: Ordered: 06/10/2025 Lopez miscellaneous test Arion mis cellaneous test Lab Routine Screening for malignant neoplasm of cervix Vaginal discharge Ordered: 08/13/2024 [facility] Comment on above: Ordered: 08/13/2024 NuSwab Vaginitis Plu s (VG+) NuSwab Vaginitis Plus (VG+) Microbiology Routine Screening for malignant neoplasm of cervix Vaginal discharge Ordered: 08/13/2024 [facility] Comment on above: Ordered: 08/13/2024 NuSwab Vaginitis Plu s (VG+) NuSwab Vaginitis Plus (VG+) Microbiology Routine Vaginal burning Vaginal itching Vaginal discharge Vaginal odor Ordered: 10/23/2024 [facility] Comment on above: Ordered: 10/23/2024 Patient Education [facility] Work Phone: Patient referral [facility] Work Phone: SENDOUT TEST MISCELLANEOUS [facility] SENDOUT TEST MISCELLANEOUS [facility] Lab Routine Screening for malignant neoplasm of cervix Encounter for gynecological examination without abnormal finding Ordered: 08/13/2024 [facility] Work Phone: Comment on above: Ordered: 08/13/2024 URINE CULTURE - [facility] URINE CULTU RE - [facility] Lab Routine 04/17/2025 1:15 AM EDT [facility] c [facility] c [facility] c [facility] Immunizations Immunization Date Immunization Notes Care Provider Massimo whipple 06-13-2024 influenza, injectabl e, madin maria del carmen canine kidney, preservative free Anil Alanis Work Phone: [facility] 06-13-2024 influenza virus vaccine, unspecified formulation Tala MEJIA Work Phone: [facility] 06-23-2023 Influenza, injectabl e, Madin Needles Canine Kidney, preservative free, quadrivalent Gm Gomez LPN Work Phone: [facility] 06-23-2023 influenza virus vaccine, unspecified formulation [facility] 03-09-2023 SARS-COV-2 (COVID-19 ) vaccine, mRNA, spike protein, LNP, bivalent, preservative free, 30 mcg/0.3 mL dose, merly-sucrose formulation Gm Jason RN HOME CARE Work Phone: [facility] 08-03-2022 Influenza, injectabl e, Madin Needles Canine Kidney, preservative free, quadrivalent Gm Jason RN HOME CARE Work Phone: [facility] 08-03-2022 influenza virus vaccine, unspecified formulation Mary Ann Levin MD Work Phone: [facility] 06-04-2021 influenza, injectabl e, quadrivalent, preservative free Gm Jason RN HOME CARE Work Phone: [facility] 07-02-2020 Influenza, injectabl e, Madin Needles Canine Kidney, quadrivalent with preservative Gm Jason RN HOME CARE Work Phone: [facility] 07-10-2019 Influenza, injectabl e, Madin Maria Del Carmen Canine Kidney, preservative free, quadrivalent Gm Jason RN HOME CARE Work Phone: [facility] 07-06-2018 influenza, injectabl e, quadrivalent, preservative free Gm Jason RN HOME CARE Work Phone: [facility] 07-13-2017 hepatitis A vaccine, pediatric/adolescent dosage, 2 dose schedule [facility] 07-13-2017 Human Papillomavirus 9-valent vaccine [facility] 07-13-2017 influenza, injectabl e, quadrivalent, preservative free [facility] 12-15-2016 hepatitis A vaccine, adult dosage [facility] 12-15-2016 hepatitis A vaccine, pediatric/adolescent dosage, 2 dose schedule Francheska Marinelli RT(R) [facility] Work Phone: 12-15-2016 human papilloma viru s vaccine, quadrivalent Tiesha Rai PA-C Work Phone: [facility] 12-15-2016 Human Papillomavirus 9-valent vaccine Francheska Marinelli RT(R) [facility] Work Phone: 07-31-2015 meningococcal oligosaccharide (groups A, C, Y and W-135) diphtheria toxoid conjugate vaccine (MCV4O) [facility] 07-31-2015 meningococcal polysaccharide (groups A, C, Y and W-135) diphtheria toxoid conjugate vaccine (MCV4P) Francheska Lapponi RT(R) [facility] 07-08-2015 influenza virus vaccine, unspecified formulation Tiesha Rai PA-C Work Phone: [facility] 07-08-2015 influenza, injectabl e, quadrivalent, preservative free Francheska Lapponi RT(R) [facility] 07-08-2015 influenza, seasonal, injectable Gm Jason RN HOME CARE Work Phone: [facility] 06-25-2015 tetanus toxoid, redu lita diphtheria toxoid, and acellular pertussis vaccine, adsorbed [facility] 07-30-2013 influenza virus vaccine, unspecified formulation Francheska Lapponi RT(R) [facility] 07-30-2013 influenza, injectabl e, quadrivalent, preservative free Gm Jason RN HOME CARE Work Phone: [facility] 07-28-2011 influenza virus vaccine, unspecified formulation Francheska Lapponi RT(R) [facility] 07-28-2011 influenza, seasonal, injectable Gm Jason RN HOME CARE Work Phone: [facility] 08-24-2010 influenza virus vaccine, unspecified formulation Francheska Lapponi RT(R) [facility] 08-24-2010 influenza, seasonal, injectable, preservative free Gm Jason RN HOME CARE Work Phone: [facility] 07-22-2009 influenza virus vaccine, live, attenuated, for intranasal use [facility] Work Phone: [facility] 07-22-2009 influenza virus vaccine, unspecified formulation Francheska Lapponi RT(R) [facility] 01-30-2008 diphtheria, tetanus toxoids and acellular pertussis vaccine Francheska Lapponi RT(R) [facility] 01-30-2008 measles, mumps and rubella virus vaccine Francheska Lapponi RT(R) [facility] 01-30-2008 poliovirus vaccine, inactivated Francheska Lapponi RT(R) [facility] 11-08-2004 diphtheria, tetanus toxoids and acellular pertussis vaccine Francheska Lapponi RT(R) [facility] 11-08-2004 varicella virus vaccine Francheska Lappo ni RT(R) [facility] 08-31-2004 influenza virus vaccine, unspecified formulation Tiesha Rai PA-C Work Phone: [facility] 08-31-2004 influenza, seasonal, injectable Gm Gomez LPN Work Phone: [facility] 08-31-2004 influenza, seasonal, injectable, preservative free Francheska Lapponi RT(R) [facility] 04-21-2004 haemophilus influenz ae type b vaccine, conjugate unspecified formulation [facility] 04-21-2004 haemophilus influenz ae type b vaccine, HbOC conjugate Francheska Lapponi RT(R) [facility] 04-21-2004 measles, mumps and rubella virus vaccine Francheska Lapponi RT(R) [facility] 04-21-2004 pneumococcal conjuga te vaccine, 7 valent [facility] 04-21-2004 pneumococcal Conjuga te, unspecified formulation Francheska Lapponi RT(R) [facility] 10-15-2003 influenza virus vaccine, unspecified formulation Tiesha Rai PA-C Work Phone: [facility] 10-15-2003 influenza, seasonal, injectable Francheska Lapponi RT(R) [facility] 09-12-2003 influenza virus vaccine, unspecified formulation Tiesha Rai PA-C Work Phone: [facility] 09-12-2003 influenza, seasonal, injectable Francheska Lapponi RT(R) [facility] 09-09-2003 pneumococcal conjuga te vaccine, 7 valent Jessica Nasir [facility] 09-09-2003 pneumococcal Conjuga te, unspecified formulation Francheska Lapponi RT(R) [facility] 09-09-2003 poliovirus vaccine, inactivated Francheska Lapponi RT(R) [facility] 04-21-2003 diphtheria, tetanus toxoids and acellular pertussis vaccine Francheska Lapponi RT(R) [facility] 04-21-2003 haemophilus influenz ae type b vaccine, conjugate unspecified formulation [facility] 04-21-2003 haemophilus influenz ae type b vaccine, HbOC conjugate Francheska Lapponi RT(R) [facility] 04-21-2003 hepatitis B vaccine, pediatric or pediatric/adolescent dosage Francheska Lapponi RT(R) [facility] 04-21-2003 pneumococcal conjuga te vaccine, 7 valent [facility] 04-21-2003 pneumococcal Conjuga te, unspecified formulation Francheska Lapponi RT(R) [facility] 02-17-2003 diphtheria, tetanus toxoids and acellular pertussis vaccine Francheska Lapponi RT(R) [facility] 02-17-2003 haemophilus influenz ae type b vaccine, conjugate unspecified formulation [facility] 02-17-2003 haemophilus influenz ae type b vaccine, HbOC conjugate Francheska Lapponi RT(R) [facility] 02-17-2003 poliovirus vaccine, inactivated Francheska Lapponi RT(R) [facility] 2002 diphtheria, tetanus toxoids and acellular pertussis vaccine Francheska Lapponi RT(R) [facility] 2002 haemophilus influenz ae type b vaccine, conjugate unspecified formulation [facility] 2002 haemophilus influenz ae type b vaccine, HbOC conjugate Francheska Lapponi RT(R) [facility] 2002 hepatitis B vaccine, pediatric or pediatric/adolescent dosage Francheska Lapponi RT(R) [facility] 2002 pneumococcal conjuga te vaccine, 7 valent [facility] 2002 pneumococcal Conjuga te, unspecified formulation Francheska Lapponi RT(R) [facility] 2002 poliovirus vaccine, inactivated Francheska Lapponi RT(R) [facility] 2002 hepatitis B vaccine, pediatric or pediatric/adolescent dosage Francheska Lapponi RT(R) [facility] Payers Date Payer Category Payer Self-pay 2022 Medicaid [id number] 2021 Medicaid [employer] [id number] 2021-Present [phone] [address] [place] [address] Medicaid [id number] 2021 Medicaid [id number] [id number] 2002 Unknown [id number] 2.16.840.1.963106.3.579.2.983 2002 Unknown [id number] 2.16.840.1.406760.3.579.2.983 2002 Unknown [id number] 2.16.840.1.086099.3.579.2.983 2002 Unknown [id number] 2.16.840.1.624977.3.579.2.593 2002 Unknown [id number] 2.16.840.1.278909.3.579.2.593 2002 Unknown [id number] 2.16.840.1.158912.3.579.2.593 2002 Unknown [id number] 2.16.840.1.047690.3.579.2.593 2002 Unknown [id number] 2.16.840.1.879113.3.579.2.593 2002 Unknown [id number] 2.16.840.1.609259.3.579.2.1286 2002 Unknown [id number] 2.16.840.1.847589.3.579.2.1286 2002 Unknown [id number] 2.16.840.1.596901.3.579.2.1286 2002 Unknown [id number] 2.16.840.1.283570.3.579.2.1286 2002 Unknown [id number] 2.16.840.1.974105.3.579.2.1285 2002 Unknown [id number] 2.16.840.1.125490.3.579.2.128 2002 Unknown [id number] 2.16.840.1.382672.3.579.2.1285 2002 Unknown [id number] 2.16.840.1.473596.3.579.2.1285 2002 Unknown [id number] 2.16.840.1.631852.3.579.2.1285 2002 Unknown [id number] 2.16.840.1.885781.3.579.2.1285 2002 Unknown [id number] 2.16.840.1.424176.3.579.2.1285 2002 Unknown [id number] 2.16.840.1.167759.3.579.2.174 2002 Unknown [id number] 2.16.840.1.642101.3.579.2.174 2002 Unknown [id number] 2.16.840.1.694678.3.579.2.174 2002 Unknown [id number] 2.16.840.1.174456.3.579.2.174 2002 Unknown [id number] 2.16.840.1.568668.3.579.2.[facility]2002 Unknown [id number] 2.16.840.1.865563.3.579.2.1285 2002 Unknown [id number] 2.16.840.1.217899.3.579.2.1285 2002 Unknown [id number] 2.16.840.1.697206.3.579.2.1285 2002 Unknown [id number] 2.16.840.1.583184.3.579.2.1286 2002 Unknown [id number] 2.16.840.1.882212.3.579.2.1286 2002 Unknown [id number] 2.16.840.1.802638.3.579.2.128 2002 Unknown [id number] 2.16.840.1.386814.3.579.2.128 2002 Unknown [id number] 2.16.840.1.741202.3.579.2.1285 2002 Unknown [id number] 2.16.840.1.389585.3.579.2.1285 2002 Unknown [id number] 2.16840.1.438645.3.579.2.1258 2002 Unknown [id number] 2.16840.1.289691.3.579.2.1258 2002 Unknown [id number] 2.16840.1.556022.3.579.2.1258 2002 Unknown [id number] 2.16840.1.407275.3.579.2.1258 2002 Unknown [id number] 2.16840.1.554398.3.579.2.1258 2002 Unknown [id number] 2.16840.1.001932.3.579.2.1258 2002 Unknown [id number] 2.16840.1.003395.3.579.2.1258 1959 Medicaid [id number] Unknown [id number] Unknown [id number] 2.16.840.1.957551.3.579.2.531 Unknown [id number] 2.16.840.1.721197.3.579.2.531 Unknown [id number] 2.16840.1.148265.3.579.2.531 Social History Date Type Detail Facility Start: 12-30-2021 End: 07-28-2022 Tobacco smoking status NHIS Never smoked tobacco [facility] Start: 12-22-2021 End: 11-21-2023 Alcohol intake Current non-drinker of alcohol (finding) [facility] Start: 2000 Sex Assigned At Not on file [facility] Start: 12-19-2021 End: 09-12-2022 Exposure to SARS-CoV-2 (event) Not sure [facility] Start: 12-30-2021 End: 07-28-2022 Tobacco use and exposure Smokeless tobacco non-user [facility] Start: 11-19-2020 End: 10-13-2022 Sex Assigned At [facility] Start: 08-04-2022 Tobacco Comment no one in [place] sm[place] [facility] Start: 11-19-2020 End: 10-13-2022 History of Social function [facility] Adult Depression Screening Assessment 3 [facility] Start: 2000 Sex Assigned At Female F [facility] Start: 07-17-2024 End: 06-10-2025 Alcoholic beverage intake Ex-drinker (finding) [facility] How often to you hav e a drink containing alcohol? Never [facility] Start: 07-10-2023 Alcohol Comment caffeine: none [facility] Start: 12-13-2021 Gender identity Identifies as female gender (finding) [facility] Start: 09-11-2024 End: 02-27-2025 Alcoholic beverage intake Current drinker of alcohol (finding) [facility] Start: 08-20-2024 Alcohol Comment q 1x per month [facility] Start: 03-03-2017 End: 01-30-2019 Sex Female (finding) [facility] Start: 01-11-2025 Alcoholic beverage intake Lifetime non-drinker (finding) [facility] Has the electric, gas, oil, or water company threatened to shut off services in your home in past 12Mo No [facility] How often to you hav e a drink containing alcohol? Monthly or less [facility] How often do you hav e 6 or more drinks on 1 occasion? Less than monthly [facility] How hard is it for you to pay for the very basics like food, housing, medical care, and heating Somewhat hard [facility] Do you feel stress - tense, restless, nervous, or anxious, or unable to sleep at night because your mind is troubled all the time - these days [OSQ] Only a little [facility] (I/We) worried whether (my/our) food would run out before (I/we) got money to buy more. Sometimes true [facility] NEGATED: Highlighted row [facility] Medical Equipment Procedure Code Equipment Code Equipment Origin al Text Equipment Identifier Dates Tube Vent 4.8mm 1.32mm [facility] - [id number] Start: 11-14-2011 Tube Malena Juan in Vent [id number] - [id number] Start: 02-17-2010 Tube Ear Jacquelyn Bx/5 Bill - [id number] Start: 11-02-2017 Goals Date Patient Goal Desired Activity /State Personal health goal Comment on above: Formatting of this n ote might be different from the original. Evaluation of progress towards goal: Safe dc transition from hospital to home. Functional Status Date Assessment Result Facility 06-13-2025 Patient Health Quest ionnaire 2 item (PHQ-2) [Reported] [facility] 06-11-2025 Total score [AUDIT-C] 2 06/11/20 12:16 PM EDT Mychart, Generic [facility] 06-11-2025 How often to you hav e a drink containing alcohol? Monthly or less 06/11/2025 12:16 PM EDT Mychart, Generic Monthly or less [facility] 06-11-2025 Functional status Patient does n ot drink 06/11/2025 12:16 PM EDT Mychart, Generic Patient does not drink [facility] 06-11-2025 How often do you hav e 6 or more drinks on 1 occasion? Less than monthly 06/11/2025 12:16 PM EDT Mychart, Generic Less than monthly [facility] 08-21-2015 Are you deaf, or do you have serious difficulty hearing No 08/21/2015 10:22 AM Angela Hernandez RN No [facility] 08-21-2015 Are you blind, or do you have serious difficulty seeing, even when wearing glasses No 08/21/2015 10:22 AM Angela Hernandez, JESSIE No [facility] 08-21-2015 Do you have serious difficulty walking or climbing stairs No 08/21/2015 10:22 AM Angela Hernandez, JESSIE No [facility] 08-21-2015 Do you have difficul ty dressing or bathing No 08/21/2015 10:22 AM Angela Hernandez, JESSIE No [facility] Mental Status Date Assessment Result Facility 08-21-2015 Because of a physica l, mental, or emotional condition, do you have serious difficulty concentrating, remembering, or making decisions No 08/21/2015 10:22 AM Angela Hernandez, JESSIE No [facility] Clinical Notes 11-17-2015 to 07-03-2025 Telephone Encounter - Otilia Oviedo - 07/03/2025 8:37 AM EDTTelephone Encounter - Otilia Oviedo - 07/03/2025 8:37 AM Miguel Angel Thapa, DO - 06/13/2025 10:40 AM EDTPatient Instructions Note Date & Type Note Facility 07-03-2025 Miscellaneous Notes Data Operations Manager contacted the patient to offer to schedule from referral that was written by Xiao Ellis. She stated that she would prefer to schedule with neurosurgery. Data Operations Manager transferred to neurosurgery. documented in this encounter [facility] 07-03-2025 Telephone encounter Note Data Operations Manager contacted the patient to offer to schedule from referral that was written by Xiao Ellis. She stated that she would prefer to schedule with neurosurgery. Data Operations Manager transferred to neurosurgery. [facility] 06-13-2025 History of Present illness Narrative Associated Problem(s): Acne vulgaris Problem is stable, will continue with current treatment plan. Call or return to clinic if any changes occur Orders: clindamycin (Cleocin T) 1 % external solution; Apply topically in the morning and before bedtime. APPLY TO AFFECTED AREAS ON FACE ONCE A DAY. Associated Problem(s): Attention deficit hyperactivity disorder (ADHD), combined type improved significantly, continue current treatment Orders: methylphenidate ER (Concerta) 18 MG CR tablet; Take 1 tablet (18 mg) by mouth in the morning. Do not crush, chew, or split. Images from the original note were not included. Subjective ?Quick Links Last Note in Specialty Snapshot Edit RFV/CC Edit Screenings Current Meds Patient ID: Charis Allen is a 24 y.o. female who presents for ADHD. Pt presents for her ADHD medication follow up. Pt is doing well at this time with her current medication. No other concerns at this time. ADHD Review of Systems ?Quick Review Review Full History Edit History Meds - clindamycin (Cleocin T) 1 % external solution Condoms - Male misc meclofenamate (Meclomen) 100 MG capsule methylphenidate ER (Concerta) 18 MG CR tablet triamcinolone (Kenalog) 0.1 % cream --- PMH - Blood type A+ Chiari syndrome (HCC) History of chicken pox Migraines Seasonal allergies Objective ?Quick Links Add Vitals Timeline (Adult) Labs Imaging Results Review Trend Vitals ?? Avoid pulling in long tables of results. Comment on relevant results to support your medical decision making. Ht 5' 8 LMP 06/02/2025 BMI 25.39 kg/m Physical Exam Constitutional: Appearance: Normal appearance. HENT: [...] Content: Thought content normal. Judgment: Judgment normal. ?Quick Links Full Problem List ADHD Allergy GI Assessment & Plan Major depressive disorder, single episode, mild Patient advised to return if symptoms worsen and/or persist despite treatment. Acne vulgaris Problem is stable, will continue with current treatment plan. Call or return to clinic if any changes occur Orders: clindamycin (Cleocin T) 1 % external solution; Apply topically in the morning and before bedtime. APPLY TO AFFECTED AREAS ON FACE ONCE A DAY. Attention deficit hyperactivity disorder (ADHD), combined type improved significantly, continue current treatment Orders: methylphenidate ER (Concerta) 18 MG CR tablet; Take 1 tablet (18 mg) by mouth in the morning. Do not crush, chew, or split. documented in this encounter [facility] 06-11-2025 History of Present illness Narrative UTI documented in this encounter [facility] 06-10-2025 History of Present illness Narrative Images from the original note were not included. Jona Vann MD Obstetrics and Gynecology Patient: Charis Allen : 2000 (24 y.o.) Exam Date: 06/10/2025 Reason for Visit - Chief Complaint Patient presents with Menstrual Problem Patient present for menses issues. Patient also had complaints of urinary irritation. Clean Catch specimen taken. LMP: 06/02/25 Follow-up following in-house ultrasound for heavy menses, patient is experiencing heavy menses with lots of jelena sized blood clots being passed, she was experiencing severe pain rating the pain at a 9/10 and having pelvic tenderness and pain, she reports it only happens during the first 2 days of menses for the past two months, she uses a large tampon every 2 hours when she has the heavy bleeding, she does experience brown spotting/discharge in between menses LMP 06/05 Does not wish hormones Miscarriage February/2025 [facility] spontaneously Chiari Malformation cbc History of Present Illness US 06/06 he uterus is normal in size and contour. The myometrium is rather inhomogenous in echotexture. The endometrium is normal in contour and thickness. Both ovaries are visible and appear normal in size and echotexture. There is no overt adnexal mass. There is no free fluid visible within the pelvis. Endometrial depth 4.1 History of Present Illness Charis presents with concerns about heavy menstrual bleeding and a history of recent miscarriage. She reports experiencing her first period since the miscarriage in May, which was notably heavier than her pre-miscarriage periods. The patient describes her periods as previously regular and not heavy before the miscarriage. However, the most recent menstrual cycle, which occurred last week, was a month late and significantly heavier than usual. Charis mentions passing clots during her periods, which is a new symptom for her. She denies ever having experienced periods this heavy before. Charis also expresses concern about her history of miscarriages, though the exact number is not specified. She mentions having a Chiari malformation, which may complicate future pregnancies. The patient is not currently trying to conceive. The patient reports that her miscarriage resolved on its own without requiring a D&C procedure. She had an ultrasound following the miscarriage, which reportedly showed normal results. Visit Vitals BP 120/74 (BP Location: Left arm) Ht 5' 8 Wt 167 lb LMP 06/02/2025 BMI 25.39 kg/m OB Status Having periods Smoking Status Never BSA 1.91 m History of Present Illness, Associated Treatments and [...] clindamycin (Cleocin T) 1 % external solution, Apply topically in the morning and before bedtime. APPLY TO AFFECTED AREAS ON FACE ONCE A DAY., Disp: 30 mL, Rfl: 0 Condoms - Male misc, 1 Units Daily, Disp: 10 Units, Rfl: 2 ibuprofen 800 MG tablet, Take 800 mg by mouth every 8 (eight) hours if needed for mild pain or moderate pain, Disp: , Rfl: meclofenamate (Meclomen) 100 MG capsule, One tablet tid on menses No hormones due to Chiari malformation, Disp: 120 capsule, Rfl: 2 methylphenidate ER (Concerta) 18 MG CR tablet, Take 1 tablet (18 mg) by mouth in the morning. Do not crush, chew, or split., Disp: 30 tablet, Rfl: 0 ondansetron ODT (Zofran-ODT) 4 MG disintegrating tablet, Take 4 mg by mouth every 8 (eight) hours if needed for nausea or vomiting, Disp: , Rfl: triamcinolone (Kenalog) 0.1 % cream, Apply topically 2 (two) times a day, Disp: 30 g, Rfl: 2 Past Medical History: Diagnosis Date Blood type A+ Chiari syndrome (HCC) 12/27/2022 History of chicken pox Migraines Seasonal allergies Past Surgical History: Procedure Laterality [...] below. Physical Exam Constitutional: Appearance: Normal appearance. HENT: Head: Normocephalic and atraumatic. Neurological: Mental Status: She is alert and oriented to person, place, and time. Psychiatric: Mood and Affect: Mood normal. Behavior: Behavior normal. Assessment/Plan ICD-10-CM 1. Chiari malformation type I (HCC) G93.5 meclofenamate (Meclomen) 100 MG capsule Ambulatory referral to Endocrinology 2. Amenorrhea N91.2 hCG, quantitative Ferritin Iron and TIBC CBC and differential Ferritin 3. Menorrhagia with irregular cycle N92.1 Ferritin Iron and TIBC CBC and differential Ferritin 4. Excessive bleeding in premenopausal period N92.4 Ferritin Iron and TIBC CBC and differential Ferritin CANCELED: CBC CANCELED: Iron and TIBC 5. History of miscarriage Z87.59 MTHFR mutation Lupus anticoagulant MTHFR mutation Ambulatory referral to Endocrinology CANCELED: Ambulatory referral to Endocrinology CANCELED: Ambulatory referral to Endocrinology 6. Vaginal burning N94.89 Urine culture 7. Vaginal itching N89.8 Urine culture 8. Vaginal irritation N89.8 Urine culture Menorrhagia and Irregular Menstrual Cycles Assessment: Patient reports heavy menstrual bleeding with clots since a recent miscarriage in May. Periods were previously regular but are now heavier than usual. Last menstrual period was May 28, which was one month late. Recent ultrasound was normal, suggesting hormonal etiology. Patient unable to take hormonal control. Differential diagnoses include post-miscarriage hormonal imbalance and potential underlying endocrine disorders. 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 Exact number and timing not specified. Etiology unclear at this time. Plan: - Refer to costumed character for comprehensive evaluation of recurrent miscarriages - Advise patient that future pregnancies may be complicated due to Chiari malformation, necessitating specialized care Chiari Malformation Assessment: Patient has a known diagnosis of Chiari malformation. This condition may complicate future pregnancies. Plan: - Emphasize importance of specialized care for any future pregnancies due to Chiari malformation - Ensure costumed character is aware of this condition for comprehensive planning Assessment & Plan documented in this encounter [facility] 03-19-2025 Telephone encounter Note Patient phones requesting refills as follows: BERENICE: 08/16/2023 FOV: none noted Patient will need follow up appointment, routed to [employer] derm data entry assistant at this time. Requested Prescriptions Pending Prescriptions Disp Refills clindamycin (CLEOCIN) 1 % external solution [Pharmacy Med Name: CLINDAMYCIN PH 1% SOLUTION] 60 mL 0 Sig: APPLY TO AFFECTED AREAS ON FACE ONCE EVERYDAY Please review and advise. Otilia Gomez LPN [facility] 03-19-2025 Miscellaneous Notes Patient phones requesting refills as follows: BERENICE: 08/16/2023 FOV: none noted Patient will need follow up appointment, routed to [employer] derm data entry assistant at this time. Requested Prescriptions Pending Prescriptions Disp Refills clindamycin (CLEOCIN) 1 % external solution [Pharmacy Med Name: CLINDAMYCIN PH 1% SOLUTION] 60 mL 0 Sig: APPLY TO AFFECTED AREAS ON FACE ONCE EVERYDAY Please review and advise. Otilia Gomez LPN documented in this encounter [facility] 02-18-2025 Radiology Diagnostic study note [facility] Main [place] [address] [place] [address] Ultrasound Report Signed Patient: Charis Allen MR#: [id number] : 2000 Acct:[id number] Age/Sex: 24 / F ADM Date: 5 Loc: ER Room: Type: [facility] ER Attending Dr: Ordering Provider: Yaritza Bauer APRN Date of Service: 02/18/25 US/US OB <= 14 weeks fetus: Abdominal Pain ([id number]) US/US OB transvaginal: R/O ECTOPIC Copies to: Yaritza aBuer APRN~ Obstetrical ultrasound for fetus less than [...] Camacho M.D. 02/18/2025 8:45 PM Dictation Location: [facility] Tech: Roselia Cueva Transcribed By: REMINGTON 02/18/252044 Dictated By: Michael Camacho DO 02/18/252034 Signed By: 02/18/252044 [facility] 01-08-2025 Telephone encounter Note Patient phones requesting refills as follows: BERENICE: 01/04/2023 FOV: 02/19/2025 Requested Prescriptions Pending Prescriptions Disp Refills clindamycin (CLEOCIN) 1 % external solution 60 mL 0 Sig: APPLY TO AFFECTED AREAS ON FACE ONCE A DAY Please review and advise. Liz Oswald MA [facility] 01-08-2025 Miscellaneous Notes Patient phones requesting refills as follows: BERENICE: 01/04/2023 FOV: 02/19/2025 Requested Prescriptions Pending Prescriptions Disp Refills clindamycin (CLEOCIN) 1 % external solution 60 mL 0 Sig: APPLY TO AFFECTED AREAS ON FACE ONCE A DAY Please review and advise. Liz Oswald MA documented in this encounter [facility] 01-07-2025 Telephone encounter Note Temporary refill until patient is seen as it has been greater than 1 year since last appointment. Please call patient and schedule a follow up appointment for acne within next 2 months. Mary Ann Levin MD [facility] 01-07-2025 Miscellaneous Notes Temporary refill until patient is seen as it has been greater than 1 year since last appointment. Please call patient and schedule a follow up appointment for acne within next 2 months. Mary Ann Levin MD Patient phones requesting refills as follows: BERENICE: 08/16/23 Patient will need a follow up appointment, routed to data entry assistant. Requested Prescriptions Pending Prescriptions Disp Refills clindamycin (CLEOCIN) 1 % external solution [Pharmacy Med Name: CLINDAMYCIN PH 1% SOLUTION] 60 mL 3 Sig: APPLY TO AFFECTED AREAS ON FACE ONCE A DAY Please review and advise. RONALD Montenegro documented in this encounter [facility] 01-07-2025 Telephone encounter Note Patient phones requesting refills as follows: BERENICE: 08/16/23 Patient will need a follow up appointment, routed to data entry assistant. Requested Prescriptions Pending Prescriptions Disp Refills clindamycin (CLEOCIN) 1 % external solution [Pharmacy Med Name: CLINDAMYCIN PH 1% SOLUTION] 60 mL 3 Sig: APPLY TO AFFECTED AREAS ON FACE ONCE A DAY Please review and advise. RONALD Montenegro [facility] 11-22-2024 Telephone encounter Note Refill of concerta 18 mg [facility] 11-22-2024 Miscellaneous Notes Refill of concerta [facility] mg [facility] documented in this encounter [facility] 11-04-2024 History of Present illness Narrative [facility] - ENT [address], [address] [facility] [id number] SUBJECTIVE: Patient ID (2000): Charis Allen is [...] 11/02/2017 Performed by Karthikeyan Lopez MD at [facility] APPENDECTOMY 2016 APPLICATION GRAFT PAPER PATCH EAR Right 06/04/2024 Performed by Mich Verde MD at [facility] BRAIN SURGERY CRANIOTOMY CHIARI DECOMPRESSION / N/A 01/27/2023 Performed by Ajay Barbosa MD at [facility] CYSTOSCOPY RETROGRADE PYELOGRAM Bilateral 11/30/2022 Performed by Margot Hernandez MD at [facility] DILATION AND CURETTAGE OF UTERUS 07/31/2023 DIRECT LARYNGOSCOPY WITH BIOPSY BASE OF TONGUE LESION Right 08/27/2024 Performed by Luis Enrique Jennings DO at [facility] EUSTACHIAN TUBE DILATION Bilateral 11/02/2017 Performed by Karthikeyan Lopez MD at [facility] POSTERIOR LAMINECTOMY CERVICAL SINGLE LEVEL / C1 N/A 01/27/2023 Performed by Ajay Barbosa MD at [facility] REMOVAL TUBE EAR Right 06/04/2024 Performed by Mich Verde MD at [facility] TONSILLECTOMY TYMPANOSTOMY TUBE PLACEMENT TYMPANOTOMY WITH PERMANENET VENT TUBE INSERTION. TYMPANOTOMY WITH NONPERMANENT TUBE IN LEFT EAR Bilateral 11/02/2017 Performed by Karthikeyan Lopez MD at [facility] Family History Problem Relation Age of Onset [...] History Narrative Lives alone. 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 Social Drivers of Health Financial Resource Strain: Patient Declined (11/12/2023) Received from [facility] [employer] [facility] Overall Financial Resource Strain (CARDIA) Difficulty of Paying Living Expenses: Patient declined Food Insecurity: No Food Insecurity (08/20/2024) Hunger Screening Food Insecurity - Worry: Never True Food Insecurity - Inability: Never True Transportation Needs: Patient Declined (11/12/2023) Received from [facility] [employer] [facility] PRAP[facility] - Transportation Lack of Transportation (Medical): Patient declined Lack of Transportation (Non-Medical): Patient declined Physical Activity: Patient Declined (11/12/2023) Received from [facility] [employer] [facility] Exercise Vital Sign Days of Exercise per Week: Patient declined Minutes of Exercise per Session: Patient declined Stress: Not on file Social Connections: Unknown (11/12/2023) Received from [facility], [facility] Social Connection and Isolation Panel [NHANES] Frequency of Communication with Friends and Family: Patient declined Frequency of Social Gatherings with Friends and Family: Patient declined Attends Protestant Services: Not on file Active Member of Clubs or Organizations: Patient declined Attends Club or Organization Meetings: Patient declined Marital Status: Patient declined Interpersonal Safety: Patient Declined (11/12/2023) Received from [facility], [facility] Humiliation, Afraid, Rape, and Kick questionnaire [...] this chart were generated using voice recognition [employer] dictation software. Although every effort was made to ensure the accuracy of this automated drama director, some errors in drama director may have occurred. documented in this encounter [facility] 11-04-2024 Instructions Francisco Garcia - 11/04/2024 1:45 PM EST - Patient has no pain and is eating/drinking per norm. Biopsy site is well-healed on exam. - Return as needed. documented in this encounter [facility] 10-28-2024 History of Present illness Narrative [facility] documented in this encounter [facility] 10-23-2024 History of Present illness Narrative Images from the original note were not included. Jona Vann MD Obstetrics and Gynecology Patient: Charis lAlen : 2000 (24 y.o.) Exam Date: 10/23/2024 [...] (CMS/HCC) 12/27/2022 History of chicken pox Migraines ([facility]) Seasonal allergies Past Surgical History: Procedure Laterality [...] Plus (VG+) Vaginal odor - GENITAL MYCOPLASMAS JAENT, SWAB - [employer] Vaginitis Plus (VG+) Amenorrhea [...] response to treatment. documented in this encounter [facility] 10-21-2024 History of Present illness Narrative [...] Past Surgical History: Procedure Laterality Date APPENDECTOMY 2013 DILATION AND CURETTAGE OF UTERUS 2022 suction [...] Insecurity: No Food Insecurity (08/20/2024) Received from [facility] Hunger Screening Within the past 12 months [...] with Friends and Family: Patient declined Attends Protestant Services: Not on file Active Member of [...] tablet, Rfl: 0 documented in this encounter [facility] 09-12-2024 Telephone encounter Note Patient phones requesting refills as follows: BERENICE: 08/16/2023 FOV: 10/10/2024 Requested Prescriptions Pending Prescriptions Disp Refills clindamycin (CLEOCIN) 1 % external solution [Pharmacy Med Name: CLINDAMYCIN PH 1% SOLUTION] 60 mL 3 Sig: APPLY TO AFFECTED AREAS ON FACE ONCE A DAY Please review and advise. Otilia Gomez LPN [facility] 09-12-2024 Miscellaneous Notes Patient phones requesting refills as follows: BERENICE: 08/16/2023 FOV: 10/10/2024 Requested Prescriptions Pending Prescriptions Disp Refills clindamycin (CLEOCIN) 1 % external solution [Pharmacy Med Name: CLINDAMYCIN PH 1% SOLUTION] 60 mL 3 Sig: APPLY TO AFFECTED AREAS ON FACE ONCE A DAY Please review and advise. Otilia Gomez LPN documented in this encounter [facility] 09-11-2024 History of Present illness Narrative Images from the original note were not included. [facility] - ENT [address] [place] [address], [address] [place] [id number] SUBJECTIVE: Patient ID (2000): Charis Allen is [...] 11/02/2017 Performed by Karthikeyan Lopez MD at [facility] APPENDECTOMY 2016 APPLICATION GRAFT PAPER PATCH EAR Right 06/04/2024 Performed by Mich Verde MD at [facility] CRANIOTOMY CHIARI DECOMPRESSION / N/A 01/27/2023 Performed by Ajay Barbosa MD at [facility] CYSTOSCOPY RETROGRADE PYELOGRAM Bilateral 11/30/2022 Performed by Margot Hernandez MD at [facility] DILATION AND CURETTAGE OF UTERUS 07/31/2023 DIRECT LARYNGOSCOPY WITH BIOPSY BASE OF TONGUE LESION Right 08/27/2024 Performed by Luis Enrique Jennings DO at [facility] EUSTACHIAN TUBE DILATION Bilateral 11/02/2017 Performed by Karthikeyan Lopez MD at [facility] POSTERIOR LAMINECTOMY CERVICAL SINGLE LEVEL / C1 N/A 01/27/2023 Performed by Ajay Barbosa MD at [facility] REMOVAL TUBE EAR Right 06/04/2024 Performed by Mich Verde MD at [facility] TONSILLECTOMY TYMPANOSTOMY TUBE PLACEMENT TYMPANOTOMY WITH PERMANENET VENT TUBE INSERTION. TYMPANOTOMY WITH NONPERMANENT TUBE IN LEFT EAR Bilateral 11/02/2017 Performed by Karthikeyan Lopez MD at [facility] Family History Problem Relation Age of Onset [...] History Narrative Lives alone. 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 Social Drivers of Health Financial Resource Strain: Patient Declined (11/12/2023) Received from [facility], [facility] Overall Financial Resource Strain (CARDIA) Difficulty of Paying Living Expenses: Patient declined Food Insecurity: No Food Insecurity (08/20/2024) Hunger Screening Food Insecurity - Worry: Never True Food Insecurity - Inability: Never True Transportation Needs: Patient Declined (11/12/2023) Received from [facility] - Transportation Lack of Transportation (Medical): Patient declined Lack of Transportation (Non-Medical): Patient declined Physical Activity: Patient Declined (11/12/2023) Received from [facility] Exercise Vital Sign Days of Exercise per Week: Patient declined Minutes of Exercise per Session: Patient declined Stress: Not on file Social Connections: Unknown (11/12/2023) Received from [facility] Social Connection and Isolation Panel [NHANES] Frequency of Communication with Friends and Family: Patient declined Frequency of Social Gatherings with Friends and Family: Patient declined Attends Protestant Services: Not on file Active Member of Clubs or Organizations: Patient declined Attends Club or Organization Meetings: Patient declined Marital Status: Patient declined Interpersonal Safety: Patient Declined (11/12/2023) Received from [facility] Humiliation, Afraid, Rape, and Kick questionnaire [...] Luis Enrique Jennings DO by Francisco Garcia ([email or web address]). Francisco Garcia 09/11/2024 11:15 AM Provider Statement: [...] this chart were generated using voice recognition [employer] dictation software. Although every effort was made to ensure the accuracy of this automated drama director, some errors in drama director may have occurred. [facility]24 Instructions Francisco Garcia - 09/11/2024 10:30 AM EST - Reviewed patient's surgical pathology from direct laryngoscopy with biopsy of base of tongue lesion. This showed benign papillomatous neoplasm. - On exam, biopsy site healing well with granulation/exudates from cautery. - Return to ENT in 4-6 weeks if needed to check biopsy site. [facility]2024 History of Present illness Narrative Images [...] 11/02/2017 Performed by Karthikeyan Lopez MD at [facility] APPENDECTOMY 2016 APPLICATION GRAFT PAPER PATCH EAR Right 06/04/2024 Performed by Mich Verde MD at [facility] CRANIOTOMY CHIARI DECOMPRESSION / N/A 01/27/2023 Performed by Ajay Barbosa MD at [facility] CYSTOSCOPY RETROGRADE PYELOGRAM Bilateral 11/30/2022 Performed by Margot Hernandez MD at [facility] DILATION AND CURETTAGE OF UTERUS 07/31/2023 DIRECT LARYNGOSCOPY WITH BIOPSY BASE OF TONGUE LESION Right 08/27/2024 Performed by Luis Enrique Jennings DO at [facility] EUSTACHIAN TUBE DILATION Bilateral 11/02/2017 Performed by Karthikeyan Lopez MD at [facility] POSTERIOR LAMINECTOMY CERVICAL SINGLE LEVEL / C1 N/A 01/27/2023 Performed by Ajay Barbosa MD at [facility] REMOVAL TUBE EAR Right 06/04/2024 Performed by Mich Verde MD at [facility] TONSILLECTOMY TYMPANOSTOMY TUBE PLACEMENT TYMPANOTOMY WITH PERMANENET VENT TUBE INSERTION. TYMPANOTOMY WITH NONPERMANENT TUBE IN LEFT EAR Bilateral 11/02/2017 Performed by Karthikeyan Lopez MD at [facility] SOCIAL HISTORY Social History Tobacco Use Smoking [...] MA 09/10/24 1605 documented in this encounter [facility] 09-10-2024 Instructions Linette Gurrola - 09/10/2024 4:15 PM EST - Microscopic examination was completed in office today. The ears appear to be healing well postoperatively. Cerumen was removed for the bilateral canals. - Continue watchful monitoring. documented in this encounter [facility] 09-10-2024 History of Present illness Narrative AUDIOLOGIC [...] other thresholds stable. Reliability: good Speech Audiometry: SRT/DOCKING PILOT in good agreement WRS: Right Ear: Excellent (100%) Left Ear: Excellent (100%) RECOMMENDATIONS: Follow up with Dr. Mich Verde Retest as needed Patrick Hanley, [facility] Pulmonary Function Technologist documented in this encounter [facility] 09-04-2024 Miscellaneous Notes Called patient and discussed [...] as well. Patient scheduled to see Dr. Jnenings on Monday at 1030 am. documented in this encounter [facility] 09-04-2024 Telephone encounter Note Called patient and [...] Dr. Jennings on Monday at 1030 am. [facility] 09-03-2024 History of Present illness Narrative To help with acute post op swelling. documented in this encounter [facility] 08-29-2024 Miscellaneous Notes Patient called 08/29 because she needs a return to work note. Patient had a biopsy done on 08/27 and will be going back to work on 08/30. Patient said it is ok [facility] Is patient okay to go back to work 08/30/24? As long as she is no longer taking norco, she may return to work. Please provide letter. Thank you. Left a message for the patient informing her that as long as she is no longer taking the [place] pain medication she can return to work tomorrow 08/30/24. I will upload this letter to her [employer]. Asked her to give the office a call back if she is still taking her [place] and we can correct the note for a later date. documented in this encounter [facility] 08-29-2024 Telephone encounter Note Patient called 08/29 because she needs a return to work note. Patient had a biopsy done on 08/27 and will be going back to work on 08/30. Patient said it is [facility] 08-29-2024 Telephone encounter Note Is patient okay to go back to work 08/30/24? [facility] 08-29-2024 Telephone encounter Note As long as she is no longer taking norco, she may return to work. Please provide letter. Thank you. [facility] 08-29-2024 Telephone encounter Note Left a message for the patient informing her that as long as she is no longer taking the [place] pain medication she can return to work tomorrow 08/30/24. I will [facility] Asked her to give the office a call back if she is still taking her [place] and we can correct the note for a later date. [facility] 08-20-2024 Instructions Formatting of th is note might be different from the original. Your surgery/procedure is scheduled at [facility] on 08/27/2024 at 1245p Arrival Time 1045a [facility] Address: [address] [place] [address], [address] Park in the Emergency Center Parking lot. Report to the front end driver in the Emergency/Surgery Registration lobby of the hospital. Notify your SURGEON if you develop any illness such as a cold, cough, fever, sore throat, vomiting or are hospitalized between now and your surgery. Please call Pre-Admission Clinic at [phone] if you have any questions prior to surgery. For questions the morning of surgery, call the Pre-op Department at [phone]. Medication Instructions (Do not stop your medications [...] would like to schedule therapy at a [facility] facility, please call [phone] ([phone]). Do not use lotions, creams, powders, perfume, make up, cologne or after-shaves day of surgery. Remove ALL jewelry including wedding rings, body piercings, hair extensions that contain metal, nail burundian, make-up, and contact lens. You may brush your teeth the morning of surgery, but do not swallow the water. Wear your dentures and partial plates to the hospital (no adhesive). Shower the night the before. If applicable, use the CHG (chlorhexidine gluconate) soap or wipes. Please be advised, [facility] has transitioned to a cashless payment system. [...] RIGHTS AND RESPONSIBILITIES As a patient at [facility], you have the right to: Receive medical care and be informed of who is taking care of you Be treated with dignity and respect Have a family member/risk control representative of choice and your physician notified of your admission Receive information and actively participate in decisions about your care and treatment Refuse care, treatment and services Decide who may provide your support and speak for you Access gnosticist and spiritual services Participate in ethical issues [...] of hospital charges and payment methods Patient/patient risk control representative responsibilities are to: Provide information about health status to facilitate care, treatment and services Follow the treatment, plan, keep appointments and speak up when you do not understand the plan Respect the rights of other patients and healthcare personnel Follow organizational rules and regulations that support quality care and a safe environment Fulfill financial obligations as promptly as possible [facility] 08-20-2024 Miscellaneous Notes Your surgery/procedure is scheduled at [facility] on 08/27/2024 at 1245p Arrival Time 1045a [facility] Address: [address] [place] [address], [address] Park in the Emergency Center Parking lot. Report to the front end driver in the Emergency/Surgery Registration lobby of the hospital. Notify your SURGEON if you develop any illness such as a cold, cough, fever, sore throat, vomiting or are hospitalized between now and your surgery. Please call Pre-Admission Clinic at [phone] if you have any questions prior to surgery. For questions the morning of surgery, call the Pre-op Department at [phone]. Medication Instructions (Do not stop your medications [...] would like to schedule therapy at a [facility] facility, please call [phone] ([phone]). Do not use lotions, creams, powders, perfume, make up, cologne or after-shaves day of surgery. Remove ALL jewelry including wedding rings, body piercings, hair extensions that contain metal, nail burundian, make-up, and contact lens. You may brush your teeth the morning of surgery, but do not swallow the water. Wear your dentures and partial plates to the hospital (no adhesive). Shower the night the before. If applicable, use the CHG (chlorhexidine gluconate) soap or wipes. Please be advised, [facility] has transitioned to a cashless payment system. [...] RIGHTS AND RESPONSIBILITIES As a patient at [facility], you have the right to: Receive medical care and be informed of who is taking care of you Be treated with dignity and respect Have a family member/risk control representative of choice and your physician notified of your admission Receive information and actively participate in decisions about your care and treatment Refuse care, treatment and services Decide who may provide your support and speak for you Access gnosticist and spiritual services Participate in ethical issues [...] of hospital charges and payment methods Patient/patient risk control representative responsibilities are to: Provide information about [...] promptly as possible documented in this encounter [facility] 08-17-2024 History of Present illness Narrative yl documented in this encounter [facility] 08-13-2024 History of Present illness Narrative [...] for hormone balance. 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 documented in this encounter [facility] 08-07-2024 Miscellaneous Notes Surgery Scheduling Request 08/07/24 Patient: Charis Allen : 2000 Surgical Procedure(s): Direct laryngoscopy With biopsy of right base of tongue lesion Side(s): Right Anesthesia: General Surgery Time: 30 minutes Facility Preference: [facility] Post Op Destination: Outpatient Preop Anesthesia Appointment?: Yes Lab Testing?: No Medical Clearance Required?: No Does medical clearance include perioperative management of anticoagulants? No When should patient follow up after surgery? 1-[address] Jennings documented in this encounter [employer] 08-07-2024 Telephone encounter Note Surgery Scheduling Request 08/07/24 Patient: Charis Allen : 2000 Surgical Procedure(s): Direct laryngoscopy With biopsy of right base of tongue lesion Side(s): Right Anesthesia: General Surgery Time: 30 minutes Facility Preference: [facility] Post Op Destination: Outpatient Preop Anesthesia Appointment?: Yes Lab Testing?: No Medical Clearance Required?: No Does medical clearance include perioperative management of anticoagulants? No When should patient follow up after surgery? 1-[address] Jennings [employer] Work Phone: 08-07-2024 History of Present illness Narrative Images from the original note were not included. [facility] PHYSICIANS EAR, NOSE AND THROAT [facility] [address] [place] [id number] SUBJECTIVE: Patient ID (2000): Charis Allen is [...] has allergies but does not have an medication reconciliation technician. She takes Claritin. She takes a throat [...] 11/02/2017 Performed by Karthikeyan Lopez MD at [facility] APPENDECTOMY 2016 APPLICATION GRAFT PAPER PATCH EAR Right 06/04/2024 Performed by Mich Verde MD at [facility] CRANIOTOMY CHIARI DECOMPRESSION / N/A 01/27/2023 Performed by Ajay Barbosa MD at [facility] CYSTOSCOPY RETROGRADE PYELOGRAM Bilateral 11/30/2022 Performed by Margot Hernandez MD at [facility] SURGERY DILATION AND CURETTAGE OF UTERUS 07/31/2023 EUSTACHIAN TUBE DILATION Bilateral 11/02/2017 Performed by Karthikeyan Lopez MD at [facility] POSTERIOR LAMINECTOMY CERVICAL SINGLE LEVEL / C1 N/A 01/27/2023 Performed by Ajay Barbosa MD at [facility] REMOVAL TUBE EAR Right 06/04/2024 Performed by Mich Verde MD at [facility] TONSILLECTOMY TYMPANOSTOMY TUBE PLACEMENT TYMPANOTOMY WITH PERMANENET VENT TUBE INSERTION. TYMPANOTOMY WITH NONPERMANENT TUBE IN LEFT EAR Bilateral 11/02/2017 Performed by Karthikeyan Lopez MD at [facility] Family History Problem Relation Age of Onset [...] History Narrative Lives alone. 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 Social Drivers of Health Financial Resource Strain: Patient Declined (11/12/2023) Received from [facility] Overall Financial Resource Strain (CARDIA) Difficulty of Paying Living Expenses: Patient declined Food Insecurity: No Food Insecurity (08/20/2024) Hunger Screening Food Insecurity - Worry: Never True Food Insecurity - Inability: Never True Transportation Needs: Patient Declined (11/12/2023) Received from [facility] - Transportation Lack of Transportation (Medical): Patient declined Lack of Transportation (Non-Medical): Patient declined Physical Activity: Patient Declined (11/12/2023) Received from [facility] Exercise Vital Sign Days of Exercise per Week: Patient declined Minutes of Exercise per Session: Patient declined Stress: Not on file Social Connections: Unknown (11/12/2023) Received from [facility] Social Connection and Isolation Panel [NHANES] Frequency of Communication with Friends and Family: Patient declined Frequency of Social Gatherings with Friends and Family: Patient declined Attends Protestant Services: Not on file Active Member of Clubs or Organizations: Patient declined Attends Club or Organization Meetings: Patient declined Marital Status: Patient declined Interpersonal Safety: Patient Declined (11/12/2023) Received from [facility] Humiliation, Afraid, Rape, and Kick questionnaire [...] flush 3 mL 3 mL intravenous Q12H [facility] Caden Thomas MD REVIEW OF SYSTEMS: Review [...] laryngoscopy video with Tiesha. This showed a pqlte-dkhn-ww-tongue lesion that is possibly a papilloma versus [...] be put on a regimen by an medication reconciliation technician or undergo immunotherapy if indicated. She respectfully [...] covered benefit. Patient may call Jamil at [phone] to schedule surgery. - POSTOP INSTRUCTIONS You [...] concerns please do not hesitate to call [phone] Dr. Luis Enrique Jennings Scribe Statement: Scribed for and in the presence of Luis Enrique Jennings DO by Francisco Garcia ([email or web address]). Francisco Garcia 08/07/2024 10:33 AM Provider Statement: [...] to ensure the accuracy of this automated drama director, some errors in drama director may have occurred. documented in this encounter [employer] 08-07-2024 Instructions Francisco Garcia - 08/07/2024 10:00 AM EDT - Reviewed patient's CT neck soft tissue. This was unremarkable. - Reviewed patient's previous flexible laryngoscopy video with Tiesha. This showed a swhtu-pihe-dk-tongue lesion that is possibly a papilloma versus [...] be put on a regimen by an medication reconciliation technician or undergo immunotherapy if indicated. She respectfully [...] covered benefit. Patient may call Jamil at [phone] to schedule surgery. - POSTOP INSTRUCTIONS You [...] concerns please do not hesitate to call [phone] Dr. [facility] Vu documented in this encounter [employer] 07-25-2024 Instructions Olga Thompson MA - 07/25/2024 [...] used in shoes. documented in this encounter [facility] 07-25-2024 Note HNO ID: [id number] Author: ÁNGELA DELGADO DPM Service: ? Author [...] which included preparing to see the patient, gqys-pu-fsiw patient care, completing clinical documentation, obtaining and/or reviewing separately obtained history, performing a medically appropriate examination, counseling and educating the patient/family/caregiver, ordering medications, tests and care coordination (not separately reported). Time did not include procedure time. I agree with the Chief Complaint, ROS, and Past Histories independently gathered by the clinical print support specialist and the remaining scribed note accurately describes my personal service to the patient. This document has been created with the use of voice recognition technology. It may contain inaccuracies, misspellings, inaccurate syntax or inappropriate word context that escaped review. Ángela Delgado DPM [facility] 07-25-2024 History of Present illness Narrative [...] which included preparing to see the patient, jysq-lp-kzff patient care, completing clinical documentation, obtaining and/or reviewing separately obtained history, performing a medically appropriate examination, counseling and educating the patient/family/caregiver, ordering medications, tests and care coordination (not separately reported). Time did not include procedure time. I agree with the Chief Complaint, ROS, and Past Histories independently gathered by the clinical print support specialist and the remaining scribed note accurately describes my personal service to the patient. This document has been created with the use of voice recognition technology. It may contain inaccuracies, misspellings, inaccurate syntax or inappropriate word context that escaped review. Ángela Delgado DPM documented in this encounter [facility] 07-17-2024 History of Present illness Narrative Images [...] Attention deficit hyperactivity disorder (ADHD), combined type ([facility]) - methylphenidate ER (Concerta) 18 MG CR [...] questions or concerns. documented in this encounter [facility] 07-17-2024 Miscellaneous Notes Returned patient's call. No answer, left message on machine to call back. documented in this encounter [facility] [employer] 07-17-2024 Telephone encounter Note Returned patient's call. No answer, left message on machine to call back. [facility] 07-15-2024 History of Present illness Narrative Patient [...] 11/02/2017 Performed by Karthikeyan Lopez MD at [facility] APPENDECTOMY 2016 APPLICATION GRAFT PAPER PATCH EAR Right 06/04/2024 Performed by Mich Verde MD at [facility] CRANIOTOMY CHIARI DECOMPRESSION / N/A 01/27/2023 Performed by Ajay Barbosa MD at [facility] CYSTOSCOPY RETROGRADE PYELOGRAM Bilateral 11/30/2022 Performed by Margot Hernandez MD at [facility] SURGERY DILATION AND CURETTAGE OF UTERUS 07/31/2023 EUSTACHIAN TUBE DILATION Bilateral 11/02/2017 Performed by Karthikeyan Lopez MD at [facility] POSTERIOR LAMINECTOMY CERVICAL SINGLE LEVEL / C1 N/A 01/27/2023 Performed by Ajay Barbosa MD at [facility] REMOVAL TUBE EAR Right 06/04/2024 Performed by Mich Verde MD at [facility] TONSILLECTOMY TYMPANOSTOMY TUBE PLACEMENT TYMPANOTOMY WITH PERMANENET [...] of final signature. [facility] 07-15-2024 Instructions Gm Garcia - 07/15/2024 3:30 PM EDT - Microscopic examination was completed in office today. The ears appear generally healthy. - Continue watchful monitoring. - Follow-up with audiogram . [facility] History of Present illness Narrative Images from the original note were not included. [facility] EAR, NOSE AND THROAT [address] [facility] [address] [place] [id number] SUBJECTIVE: Patient ID (2002): Charis Allen is [...] history of GERD. 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 HISTORY: Past Medical History: Diagnosis Date Cerebellar tonsillar ectopia (CMS-HCC) Concussion Multiple Dizziness Dysfunction of both eustachian tubes Head injury 2010 With LOC Headache History of chicken pox 2012 HL (hearing loss) Past Surgical History: Procedure Laterality Date ADENOIDECTOMY Bilateral 11/02/2017 Performed by Karthikeyan Lopez MD at [facility] APPENDECTOMY 2016 APPLICATION GRAFT PAPER PATCH EAR Right 06/04/2024 Performed by Mich Verde MD at [facility] CRANIOTOMY CHIARI DECOMPRESSION / N/A 01/27/2023 Performed by Ajay Barbosa MD at [facility] CYSTOSCOPY RETROGRADE PYELOGRAM Bilateral 11/30/2022 Performed by Margot Hernandez MD at [facility] DILATION AND CURETTAGE OF UTERUS 07/31/2023 EUSTACHIAN TUBE DILATION Bilateral 11/02/2017 Performed by Karthikeyan Lopez MD at [facility] POSTERIOR LAMINECTOMY CERVICAL SINGLE LEVEL / C1 N/A 01/27/2023 Performed by Ajay Barbosa MD at [facility] REMOVAL TUBE EAR Right 06/04/2024 Performed by Mich Verde MD at [facility] TONSILLECTOMY TYMPANOSTOMY TUBE PLACEMENT TYMPANOTOMY WITH PERMANENET VENT TUBE INSERTION. TYMPANOTOMY WITH NONPERMANENT TUBE IN LEFT EAR Bilateral 11/02/2017 Performed by Karthikeyan Lopez MD at [facility] Family History Problem Relation Age of Onset [...] History Narrative Lives alone. 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 of Health Financial Resource Strain: Patient Declined (11/12/2023) Received from [facility], [facility] Overall Financial Resource Strain (CARDIA) Difficulty of Paying Living Expenses: Patient declined Food Insecurity: No Food Insecurity (05/21/2024) Hunger Screening Food Insecurity - Worry: Never True Food Insecurity - Inability: Never True Transportation Needs: Patient Declined (11/12/2023) Received from [facility] PRAPARE - Transportation Lack of Transportation (Medical): Patient declined Lack of Transportation (Non-Medical): Patient declined Physical Activity: Patient Declined (11/12/2023) Received from [facility] Exercise Vital Sign Days of Exercise per Week: Patient declined Minutes of Exercise per Session: Patient declined Stress: Not on file Social Connections: Unknown (11/12/2023) Received from [facility] Social Connection and Isolation Panel [NHANES] Frequency of Communication with Friends and Family: Patient declined Frequency of Social Gatherings with Friends and Family: Patient declined Attends Protestant Services: Not on file Active Member of Clubs or Organizations: Patient declined Attends Club or Organization Meetings: Patient declined Marital Status: Patient declined Interpersonal Safety: Patient Declined (11/12/2023) Received from [facility] Humiliation, Afraid, Rape, and Kick questionnaire [...] of tongue with mild asymmetry and right obct-pc-yahwet lesion, possible papilloma versus other, erythema of [...] this chart were generated using voice recognition 77 Pieces dictation software. Although every effort was made to ensure the accuracy of this automated drama director, some errors in drama director may have occurred. Tiesha Rai PA-C 07/03/24 1707 Tiesha Rai PA-C 07/03/24 1719 documented in this encounter [employer] 07-03-2024 Instructions Tiesha Rai PA-C - 07/03/2024 [...] the throat directly. Should I see a access analyst (stomach specialist)? (GI) At some point, you may be referred to a access analyst, either for help with diagnosis or to [...] Breads Commercial whole grain or enriched bread, Macedonian bread, hamburger buns, hard or plain rolls, saltines, vanessa crackers, jose toast, Latvian muffins and bagels. Homemade biscuits, muffins, waffles, [...] adapted from/provided by [facility]. documented in this encounter [facility] 06-17-2024 Miscellaneous Notes Pt lm for refill of concerta DDM Chandu documented in this encounter [facility] 06-17-2024 Telephone encounter Note Pt lm for refill of concerta DDM [place] [facility] 05-21-2024 History and physical note PRE-ADMISSION [...] 11/02/2017 Performed by Karthikeyan Lopez MD at [facility] APPENDECTOMY 2016 CRANIOTOMY CHIARI DECOMPRESSION / N/A 01/27/2023 Performed by Ajay Barbosa MD at [facility] CYSTOSCOPY RETROGRADE PYELOGRAM Bilateral 11/30/2022 Performed by Margot Hernandez MD at [facility] DILATION AND CURETTAGE OF UTERUS 07/31/2023 EUSTACHIAN TUBE DILATION Bilateral 11/02/2017 Performed by Karthikeyan Lopez MD at [facility] POSTERIOR LAMINECTOMY CERVICAL SINGLE LEVEL / C1 N/A 01/27/2023 Performed by Ajay Barbosa MD at [facility] TONSILLECTOMY TYMPANOSTOMY TUBE PLACEMENT TYMPANOTOMY WITH PERMANENET VENT TUBE INSERTION. TYMPANOTOMY WITH NONPERMANENT TUBE IN LEFT EAR Bilateral 11/02/2017 Performed by Karthikeyan Lopez MD at [facility] FAMILY HISTORY: Family History Problem Relation Age [...] History Narrative Lives alone. 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 of Health Financial Resource Strain: Patient Declined (11/12/2023) [facility] Overall Financial Resource Strain (CARDIA) Difficulty of Paying Living Expenses: Patient declined Food Insecurity: No Food Insecurity (05/21/2024) Hunger Screening Food Insecurity - Worry: Never True Food Insecurity - Inability: Never True Transportation Needs: Patient Declined (11/12/2023) Received from [facility] PR[facility] - Transportation Lack of Transportation (Medical): Patient declined Lack of Transportation (Non-Medical): Patient declined Physical Activity: Patient Declined (11/12/2023) Received from [facility] Exercise Vital Sign Days of Exercise per Week: Patient declined Minutes of Exercise per Session: Patient declined Stress: Not on file Social Connections: Unknown (11/12/2023) Received from [facility] Social Connection and Isolation Panel [NHANES] Frequency of Communication with Friends and Family: Patient declined Frequency of Social Gatherings with Friends and Family: Patient declined Attends Protestant Services: Not on file Active Member of Clubs or Organizations: Patient declined Attends Club or Organization Meetings: Patient declined Marital Status: Patient declined Interpersonal Safety: Patient Declined (11/12/2023) Received from [facility], [facility] Humiliation, Afraid, Rape, and Kick questionnaire [...] the most recent lab values available in [facility] at the time of the office [...] Verde on 06/04/2024. JONAS Conte 05/21/24 1354 [facility] [email or web address] [facility] 05-21-2024 History and physical note PRE-ADMISSION [...] 11/02/2017 Performed by Karthikeyan Lopez MD at [facility] APPENDECTOMY 2016 CRANIOTOMY CHIARI DECOMPRESSION / N/A 01/27/2023 Performed by Ajay Barbosa MD at [facility] CYSTOSCOPY RETROGRADE PYELOGRAM Bilateral 11/30/2022 Performed by Margot Hernandez MD at [facility] SURGERY DILATION AND CURETTAGE OF UTERUS 07/31/2023 EUSTACHIAN TUBE DILATION Bilateral 11/02/2017 Performed by Karthikeyan Lopez MD at [facility] POSTERIOR LAMINECTOMY CERVICAL SINGLE LEVEL / C1 N/A 01/27/2023 Performed by Ajay Barbosa MD at [facility] TONSILLECTOMY TYMPANOSTOMY TUBE PLACEMENT TYMPANOTOMY WITH PERMANENET VENT TUBE INSERTION. TYMPANOTOMY WITH NONPERMANENT TUBE IN LEFT EAR Bilateral 11/02/2017 Performed by Karthikeyan Lopez MD at [facility] FAMILY HISTORY: Family History Problem Relation Age [...] History Narrative Lives alone. 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 of Health Financial Resource Strain: Patient Declined (11/12/2023) Received from [facility] Overall Financial Resource Strain (CARDIA) Difficulty of Paying Living Expenses: Patient declined Food Insecurity: No Food Insecurity (05/21/2024) Hunger Screening Food Insecurity - Worry: Never True Food Insecurity - Inability: Never True Transportation Needs: Patient Declined (11/12/2023) Received from [facility] - Transportation Lack of Transportation (Medical): Patient declined Lack of Transportation (Non-Medical): Patient declined Physical Activity: Patient Declined (11/12/2023) Received from [facility] Exercise Vital Sign Days of Exercise per Week: Patient declined Minutes of Exercise per Session: Patient declined Stress: Not on file Social Connections: Unknown (11/12/2023) Received from [facility] Social Connection and Isolation Panel [NHANES] Frequency of Communication with Friends and Family: Patient declined Frequency of Social Gatherings with Friends and Family: Patient declined Attends Protestant Services: Not on file Active Member of Clubs or Organizations: Patient declined Attends Club or Organization Meetings: Patient declined Marital Status: Patient declined Interpersonal Safety: Patient Declined (11/12/2023) Received from [facility] Humiliation, Afraid, Rape, and Kick questionnaire [...] the most recent lab values available in [facility] at the time of the office [...] Conte 05/21/24 1354 documented in this encounter [employer] 05-21-2024 Instructions Di Briscoe RN - 05/21/2024 1:15 PM EDT Your surgery/procedure is scheduled at [facility] on June 04, 2024 at 9:00 am Arrival Time 7:00 am [facility] Address: [address] [place] [address]. [place] [address] Park in [address] Parking lot located on [facility]. Report to the Entrance B. Check in at the information desk the surgery. The waiting room located on the second floor. If you have any questions prior to surgery, please call Pre-Admission Clinic at [phone] between 7:30 am and 4:30 pm Monday through Monday. If you have questions the morning of surgery, please call the Pre-op Department at [phone]. Notify your SURGEON if you develop any [...] piercings ,hair extensions that contain metal, nail burundian, make-up, and contact lens. You may brush [...] RIGHTS AND RESPONSIBILITIES As a patient at [facility], you have the right to: Receive medical care and be informed of who is taking care of you Be treated with dignity and respect Have a family member/risk control representative of choice and your physician notified of your admission Receive information and actively participate in decisions about your care and treatment Refuse care, treatment and services Decide who may provide your support and speak for you Access gnosticist and spiritual services Participate in ethical issues [...] of hospital charges and payment methods Patient/patient risk control representative responsibilities are to: Provide information about [...] promptly as possible documented in this encounter [facility] 03-18-2024 History of Present illness Narrative Patient [...] 11/02/2017 Performed by Karthikeyan Lopez MD at [facility] APPENDECTOMY age 15 CRANIOTOMY CHIARI DECOMPRESSION / N/A 01/27/2023 Performed by Ajay Barbosa MD at [facility] CYSTOSCOPY RETROGRADE PYELOGRAM Bilateral 11/30/2022 Performed by Margot Hernandez MD at [facility] DILATION AND CURETTAGE OF UTERUS 07/31/2023 EUSTACHIAN TUBE DILATION Bilateral 11/02/2017 Performed by Karthikeyan Lopez MD at [facility] POSTERIOR LAMINECTOMY CERVICAL SINGLE LEVEL / C1 N/A 01/27/2023 Performed by Ajay Barbosa MD at [facility] TONSILLECTOMY TYMPANOSTOMY TUBE PLACEMENT TYMPANOTOMY WITH PERMANENET VENT TUBE INSERTION. TYMPANOTOMY WITH NONPERMANENT TUBE IN LEFT EAR Bilateral 11/02/2017 Performed by Karthikeyan Lopez MD at [facility] SOCIAL HISTORY Social History Tobacco Use Smoking [...] MA 03/18/24 1424 documented in this encounter [facility] 03-18-2024 Instructions Linette Gurrola - 03/18/2024 2:30 PM EDT - Patient prefers to have right tube surgically removed. We discussed the chances of perforation remaining from PE tube, which may resolve with paper patch placement. Indications, risks, benefits, and possible complications were discussed. - Continue to initiate ear drops; Ciprodex sent to pharmacy. - Follow-up post op. documented in this encounter [facility] 03-06-2024 History of Present illness Narrative [facility] EAR, NOSE AND THROAT [address] [facility] [address] [facility] [phone] SUBJECTIVE: Patient ID (2000): Charis Allen is [...] 11/02/2017 Performed by Karthikeyan Lopez MD at [facility] APPENDECTOMY age 15 CRANIOTOMY CHIARI DECOMPRESSION / N/A 01/27/2023 Performed by Ajay Barbosa MD at [facility] CYSTOSCOPY RETROGRADE PYELOGRAM Bilateral 11/30/2022 Performed by Margot Hernandez MD at [facility] DILATION AND CURETTAGE OF UTERUS 07/31/2023 EUSTACHIAN TUBE DILATION Bilateral 11/02/2017 Performed by Karthikeyan Lopez MD at [facility] POSTERIOR LAMINECTOMY CERVICAL SINGLE LEVEL / C1 N/A 01/27/2023 Performed by Ajay Barbosa MD at [facility] TONSILLECTOMY TYMPANOSTOMY TUBE PLACEMENT TYMPANOTOMY WITH PERMANENET VENT TUBE INSERTION. TYMPANOTOMY WITH NONPERMANENT TUBE IN LEFT EAR Bilateral 11/02/2017 Performed by Karthikeyan Lopez MD at [facility] Family History Problem Relation Age of Onset [...] History Narrative Lives alone. 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 of Health Financial Resource Strain: Patient Declined (11/12/2023) Received from [facility] Overall Financial Resource Strain (CARDIA) Difficulty of Paying Living Expenses: Patient declined Food Insecurity: Patient Declined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 restrict any use of the information to criminally investigate or prosecute any alcohol or drug abuse patient.[facility] HospitalIn the event this information is protected by the Federal Confidentiality of Alcohol and Drug Abuse Patient Records regulations: The Federal rules restrict any use of the information to criminally investigate or prosecute any alcohol or drug abuse patient.[facility] HospitalIn the event this information is protected by the Federal Confidentiality of Alcohol and Drug Abuse Patient Records regulations: The Federal rules restrict any use of the information to criminally investigate or prosecute any alcohol or drug abuse patient.[facility]In the event this information is protected by the Federal Confidentiality of Alcohol and Drug Abuse Patient Records regulations: The Federal rules restrict any use of the information to criminally investigate or prosecute any alcohol or drug abuse patient.[facility] HospitalIn the event this information is protected by the Federal Confidentiality of Alcohol and Drug Abuse Patient Records regulations: The Federal rules restrict any use of the information to criminally investigate or prosecute any alcohol or drug abuse patient.[facility] HospitalIn the event this information is protected by the Federal Confidentiality of Alcohol and Drug Abuse Patient Records regulations: The Federal rules restrict any use of the information to criminally investigate or prosecute any alcohol or drug abuse patient.[facility] HospitalIn the event this information is protected by the Federal Confidentiality of Alcohol and Drug Abuse Patient Records regulations: The Federal rules restrict any use of the information to criminally investigate or prosecute any alcohol or drug abuse patient.[facility] HospitalIn the event this information is protected by the Federal Confidentiality of Alcohol and Drug Abuse Patient Records regulations: The Federal rules restrict any use of the information to criminally investigate or prosecute any alcohol or drug abuse patient.[facility] HospitalIn the event this information is protected by the Federal Confidentiality of Alcohol and Drug Abuse Patient Records regulations: The Federal rules restrict any use of the information to criminally investigate or prosecute any alcohol or drug abuse patient.[facility] HospitalIn the event this information is protected by the Federal Confidentiality of Alcohol and Drug Abuse Patient Records regulations: The Federal rules restrict any use of the information to criminally investigate or prosecute any alcohol or drug abuse patient.[facility] HospitalIn the event this information is protected by the Federal Confidentiality of Alcohol and Drug Abuse Patient Records regulations: The Federal rules restrict any use of the information to criminally investigate or prosecute any alcohol or drug abuse patient.[facility] HospitalIn the event this information is protected by the Federal Confidentiality of Alcohol and Drug Abuse Patient Records regulations: The Federal rules restrict any use of the information to criminally investigate or prosecute any alcohol or drug abuse patient.[facility] HospitalIn the event this information is protected by the Federal Confidentiality of Alcohol and Drug Abuse Patient Records regulations: The Federal rules restrict any use of the information to criminally investigate or prosecute any alcohol or drug abuse patient.[facility] HospitalIn the event this information is protected by the Federal Confidentiality of Alcohol and Drug Abuse Patient Records regulations: The Federal rules restrict any use of the information to criminally investigate or prosecute any alcohol or drug abuse patient.[facility] HospitalIn the event this information is protected by the Federal Confidentiality of Alcohol and Drug Abuse Patient Records regulations: The Federal rules restrict any use of the information to criminally investigate or prosecute any alcohol or drug abuse patient.[facility] HospitalIn the event this information is protected by the Federal Confidentiality of Alcohol and Drug Abuse Patient Records regulations: The Federal rules restrict any use of the information to criminally investigate or prosecute any alcohol or drug abuse patient.[facility] HospitalIn the event this information is protected by the Federal Confidentiality of Alcohol and Drug Abuse Patient Records regulations: The Federal rules restrict any use of the information to criminally investigate or prosecute any alcohol or drug abuse patient.[facility] HospitalIn the event this information is protected by the Federal Confidentiality of Alcohol and Drug Abuse Patient Records regulations: The Federal rules restrict any use of the information to criminally investigate or prosecute any alcohol or drug abuse patient.[facility] HospitalIn the event this information is protected by the Federal Confidentiality of Alcohol and Drug Abuse Patient Records regulations: The Federal rules restrict any use of the information to criminally investigate or prosecute any alcohol or drug abuse patient.[facility] HospitalIn the event this information is protected by the Federal Confidentiality of Alcohol and Drug Abuse Patient Records regulations: The Federal rules restrict any use of the information to criminally investigate or prosecute any alcohol or drug abuse patient.[facility] HospitalIn the event this information is protected by the Federal Confidentiality of Alcohol and Drug Abuse Patient Records regulations: The Federal rules restrict any use of the information to criminally investigate or prosecute any alcohol or drug abuse patient.[facility] HospitalIn the event this information is protected by the Federal Confidentiality of Alcohol and Drug Abuse Patient Records regulations: The Federal rules restrict any use of the information to criminally investigate or prosecute any alcohol or drug abuse patient.[facility] HospitalIn the event this information is protected by the Federal Confidentiality of Alcohol and Drug Abuse Patient Records regulations: The Federal rules restrict any use of the information to criminally investigate or prosecute any alcohol or drug abuse patient.[facility] HospitalIn the event this information is protected by the Federal Confidentiality of Alcohol and Drug Abuse Patient Records regulations: The Federal rules restrict any use of the information to criminally investigate or prosecute any alcohol or drug abuse patient.[facility] HospitalIn the event this information is protected by the Federal Confidentiality of Alcohol and Drug Abuse Patient Records regulations: The Federal rules restrict any use of the information to criminally investigate or prosecute any alcohol or drug abuse patient.[facility] HospitalIn the event this information is protected by the Federal Confidentiality of Alcohol and Drug Abuse Patient Records regulations: The Federal rules restrict any use of the information to criminally investigate or prosecute any alcohol or drug abuse patient.[facility] HospitalIn the event this information is protected by the Federal Confidentiality of Alcohol and Drug Abuse Patient Records regulations: The Federal rules restrict any use of the information to criminally investigate or prosecute any alcohol or drug abuse patient.[facility] HospitalIn the event this information is protected by the Federal Confidentiality of Alcohol and Drug Abuse Patient Records regulations: The Federal rules restrict any use of the information to criminally investigate or prosecute any alcohol or drug abuse patient.[facility] HospitalIn the event this information is protected by the Federal Confidentiality of Alcohol and Drug Abuse Patient Records regulations: The Federal rules restrict any use of the information to criminally investigate or prosecute any alcohol or drug abuse patient.[facility] HospitalIn the event this information is protected by the Federal Confidentiality of Alcohol and Drug Abuse Patient Records regulations: The Federal rules restrict any use of the information to criminally investigate or prosecute any alcohol or drug abuse patient.[facility] HospitalIn the event this information is protected by the Federal Confidentiality of Alcohol and Drug Abuse Patient Records regulations: The Federal rules restrict any use of the information to criminally investigate or prosecute any alcohol or drug abuse patient.[facility] HospitalIn the event this information is protected by the Federal Confidentiality of Alcohol and Drug Abuse Patient Records regulations: The Federal rules restrict any use of the information to criminally investigate or prosecute any alcohol or drug abuse patient.[facility] HospitalIn the event this information is protected by the Federal Confidentiality of Alcohol and Drug Abuse Patient Records regulations: The Federal rules restrict any use of the information to criminally investigate or prosecute any alcohol or drug abuse patient.[facility] HospitalIn the event this information is protected by the Federal Confidentiality of Alcohol and Drug Abuse Patient Records regulations: The Federal rules restrict any use of the information to criminally investigate or prosecute any alcohol or drug abuse patient.[facility] HospitalIn the event this information is protected by the Federal Confidentiality of Alcohol and Drug Abuse Patient Records regulations: The Federal rules restrict any use of the information to criminally investigate or prosecute any alcohol or drug abuse patient.[facility] HospitalIn the event this information is protected by the Federal Confidentiality of Alcohol and Drug Abuse Patient Records regulations: The Federal rules restrict any use of the information to criminally investigate or prosecute any alcohol or drug abuse patient.[facility] HospitalIn the event this information is protected by the Federal Confidentiality of Alcohol and Drug Abuse Patient Records regulations: The Federal rules restrict any use of the information to criminally investigate or prosecute any alcohol or drug abuse patient.[facility] Reason for Visit (unrecogniz ed section and [...] sult Specialty Diagnoses / Procedures Referred By Contac t Referred To Contact Plastic Surgery Diagnoses Mastodynia Macromastia Procedures CONSULT TO PLASTIC SURGERY OFFICE/OUTPATIENT NEW HIGH MDM 60-74 MINUTES Dianna Villa PA-C [address] [place] [address] Referral ID Status Reason Start Date Expiration Date V isits Requested Visits Authorized [id number] Closed PCP Requested Referral 10/13/2022 10/13/2023 1 [...] Procedure Specialty Diagnoses / Procedures Referred By Contac t Referred To Contact MR IMAGING Diagnoses Cerebellar tonsillar ectopia (HCC) Procedures MRI BRAIN WO/W IVCON MRI BRAIN BRAIN STEM W/O W/CONTRAST MATERIAL Samples, MD Sreekanth [address] [id number] [facility] [place] [address] Referral ID Status Reason Start Date Expiration Date V isits Requested Visits Authorized [id number] Closed Auto-Generate d Referral 2022 11/17/2023 1 1 Specialty Diagnoses / Procedures [facility] To Contact [facility]AGING Diagnoses Thunderclap headache Procedures MRI BRAIN WO/W IVCON MRI BRAIN BRAIN STEM W/O W/CONTRAST MATERIAL Samples, MD Sreekanth [address] [place] [address] [facility] [place] [address] Referral ID Status Reason Start Date Expiration Date V isits Requested Visits Authorized [id number] Closed Auto-Generate d Referral 12/22/2021 10/08/2022 1 [...] Comments Refill Request 01/07/2025 Reason Comments Dizziness [place] light headed at work. Was told her BS was low and her bp was high. Hx of elevated bp. Reason Onset Date Comments Med Refill 01/15/2025 Reason Onset Date Comments Med Refill 02/15/2025 Reason Comments Med Refill Reason Comments Menstrual Problem Patient present for menses issues. Patient also had complaints of urinary irritation. Clean Catch specimen taken. LMP: 06/02/25 Reason Comments ADHD Care Teams (unrecognized sec tion and content) Health Analyst Relationship Specialty Start Date End Date Kerry Jain RD [address] [place] [address] Nutrition 04/04/23 Health Analyst Relationship Specialty Start Date End Date Kerry Jain RD [address] [place] [address] Nutrition 04/04/23 Health Analyst Relationship Specialty Start Date End Date Kerry Jain RD [address] [place] [address] [phone] Nutrition 04/04/23 Health Analyst Relationship Specialty Start Date End Date Kerry Jain RD [address] [place] [phone] Nutrition 04/04/23 Health Analyst Relationship Specialty Start Date End Date Kerry Jain RD [address] [place] [address] [phone] Nutrition 04/04/23 Health Analyst Relationship Specialty Start Date End Date Kerry Jain RD [address] [place] [address] [phone] Nutrition 04/04/23 Team Status: Active Member Role Status Dates Katie Thapa DO Primary Care Provider Active Team Status: Inactive Member Role Status Dates Katie Thapa DO Primary Care Provider Active Jona Vann MD Attending Provider Active Health Analyst Relationship Specialty Start Date End Date Kerry Jain RD [address] [place] [address] [phone] Nutrition 04/04/23 Team Status: Inactive Member Role [...] Provider Active St art: November 08, 2023 Health Analyst Relationship Specialty Start Date End Date Kerry Jain RD [address] [place], [place] [phone] Nutrition 04/04/23 Health Analyst Relationship Specialty Start Date End Date Kerry Jain RD [address] [phone] Nutrition 04/04/23 Team Status: Inactive Member Role Status Dates Katie Thapa DO Primary Care Provider Active Start: June 27, 2024 End: June 28, 2024 Yung Nichols Jr, MD Emergency Provider Active Start: June 27, 2024 End: June 28, 2024 Health Analyst Relationship Specialty Start Date End Date Anil Thapa DO [address] [place] [address] PCP - General Family Medicine 02/14/23 Health Analyst Relationship Specialty Start Date End Date Anil Thapa DO [address] [place] [address] PCP - General Family Medicine 02/14/23 Health Analyst Relationship Specialty Start Date End Date Anil Thapa DO [address] [place] [address] PCP - General Family Medicine 02/14/23 Health Analyst Relationship Specialty Start Date End Date Anil Thapa DO [address] [place] [address] PCP - General Family Medicine 02/14/23 Health Analyst Relationship Specialty Start Date End Date Crtalic-Kerry Coates, IVET [address] [place] [address] Nutrition 04/04/23 Health Analyst Relationship Specialty Start Date End Date Anil Thapa DO [address] [place] [address] PCP - General Family Medicine 02/14/23 Health Analyst Relationship Specialty Start Date End Date Anil Thapa DO [address] [place] [address] PCP - General Family Medicine 02/14/23 Health Analyst Relationship Specialty Start Date End Date Anil Thapa Jr., DO PCP - General Family Medicine 09/23/23 Health Analyst Relationship Specialty Start Date End Date Anil Thapa DO [address] [place] [address] PCP - General Family Medicine 02/14/23 Health Analyst Relationship Specialty Start Date End Date Anil Thapa DO [address] [place] [address] PCP - General Family Medicine 02/14/23 Health Analyst Relationship Specialty Start Date End Date Anil Thapa DO [address] [place] [address] PCP - General Family Medicine 10/01/23 Health Analyst Relationship Specialty Start Date End Date Anil Thapa Jr., DO [address] [place] [address] PCP - General Family Medicine 09/23/23 Health Analyst Relationship Specialty Start Date End Date Anil Thapa DO [address] [place] [address] PCP - General Family Medicine 02/14/23 Health Analyst Relationship Specialty Start Date End Date Anil Thapa Jr., DO [address] [place] [address] PCP - General Family Medicine 09/23/23 Health Analyst Relationship Specialty Start Date End Date Anil Thapa Jr., DO [address] [place] [address] PCP - General Family Medicine 09/23/23 Health Analyst Relationship Specialty Start Date End Date Anil Thapa Jr., DO [address] [place] [address] PCP - General Family Medicine 09/23/23 Health Analyst Relationship Specialty Start Date End Date Anil Thapa Jr., DO [address] [place] [address] PCP - General Family Medicine 09/23/23 Health Analyst Relationship Specialty Start Date End Date Anil Thapa Jr., DO PCP - General Family Medicine 09/23/23 Health Analyst Relationship Specialty Start Date End Date Anil Thapa Jr., DO PCP - General Family Medicine 09/23/23 Health Analyst Relationship Specialty Start Date End Date Anil Thapa Jr., DO PCP - General Family Medicine 09/23/23 Health Analyst Relationship Specialty Start Date End Date Anil Thapa Jr. DO PCP - General Family Medicine 09/23/23 Health Analyst Relationship Specialty Start Date End Date Anil Thapa Jr., DO PCP - General Family Medicine 09/23/23 Health Analyst Relationship Specialty Start Date End Date Anil Thapa Jr., DO PCP - General Family Medicine 09/23/23 Health Analyst Relationship Specialty Start Date End Date Anil Thapa Jr., DO PCP - General Family Medicine 09/23/23 Health Analyst Relationship Specialty Start Date End Date Anil Thapa DO [address] [place] [address] PCP - General Family Medicine 10/01/23 Health Analyst Relationship Specialty Start Date End Date Kerry Butler RD [address] [place] [phone] Nutrition 04/04/23 Health Analyst Relationship Specialty Start Date End Date Kerry Butler RD [address] [place] [phone] Nutrition 04/04/23 Health Analyst Relationship Specialty Start Date End Date Anil Thapa DO [address] [place] [address] PCP - General Family Medicine 10/01/23 Health Analyst Relationship Specialty Start Date End Date Anil Thapa DO [address] [place] [address] PCP - General Family Medicine 02/14/23 Team Status: Inactive Member Role Status Lupe Thapa DO Primary Care Provider Active Start: February 18, 2025 End: February 18, 2025 Yaritza N Saffle , [employer] Emergency Provider Active Start: February 18, 2025 End: February 18, 2025 Health Analyst Relationship Specialty Start Date End Date Anil Thapa DO [address] [place] [address] PCP - General Family Medicine 10/01/23 Health Analyst Relationship Specialty Start Date End Date Anil Thapa Jr., DO [address] [place] [address] PCP - General Family Medicine 02/26/25 Health Analyst Relationship Specialty Start Date End Date Anil Thapa DO [address] [place] [address] PCP - General Family Medicine 02/14/23 Team Status: Inactive Member Role Status Lupe Thapa DO Primary Care Provider Active Start: April 17, 2025 End: April 17, 2025 Chris White MD Attending Provider Active St art: April 17, 2025 End: April 17, 2025 Health Analyst Relationship Specialty Start Date End Date Anil Thapa DO [address] [place] [address] PCP - General Family Medicine 02/14/23 Health Analyst Relationship Specialty Start Date End Date Anil Thapa DO [address] [place] [address] PCP - General Family Medicine 02/14/23 Health Analyst Relationship Specialty Start Date End Date Anil Thapa DO [address] [place] [address] PCP - General Family Medicine 02/14/23 Health Analyst Relationship Specialty Start Date End Date Anil Thapa DO [address] [place] [address] PCP - General Family Medicine 02/14/23 Health Analyst Relationship Specialty Start Date End Date Anil Thapa Jr., DO [address] [place] [address] PCP - General Family Medicine 02/26/25 Goals [...] [id number] (New Bag - Prov ider: Aggie Gonzalze RN)[phone] (Stopped - Provider: Aggie Gonzalez RN) [...] BE BASED ON THE PRIMARY CLINICAL RECORDS. [employer] provides no warranty or guarantee of the accuracy or completeness of information in this document.
== END 2025-07-09 08:07 | disposition home or self-care (01) ==
LOC: LAB 09:41
PROVIDERS: PCP Family Medicine; Visit Provider Specialist
DX: Z32.00 Encounter for pregnancy test, result unknown (principal); Z51.81 Encounter for therapeutic drug level monitoring
CPT/HCPCS: 36415; 84702

== ENCOUNTER 2025-07-05 09:52 | Outpatient (OUT) | payer MEDICAID, SELFPAY ==
--- OUTSIDE RECORDS SUMMARY | 2022-01-10 06:15 | XMS_ITS | Continuity of Care Document ---
Author Organization [facility] Address [address] [place] [address] Phone Care Team Providers Care Senior Mobile Solutions Architect Name Role Phone Johnjimenabruce Og WANG Unavailable [...] Diagnoses Date Provider Providers Copied on Encounter [facility], [address] [place] [address], [id number] , [place] tel:[phone] Dental Clinic Adult Prophy (chief complaint) Encounter for screening for dental disorders 2 Jono Foley. [address] [place] [address], [address], [place]. tel:[phone] [facility], [address] [place] [address], [id number] , [place] tel:[phone] Dental Clinic prophy (chief complaint) Encounter for screening for dental disorders 1 Brian Huber. [address] [place] [address], [id number], [place]. tel:[phone] [facility], [address] [place] [address], [id number] , [place] tel:[phone] Dental Clinic Encounter for screening for dental disorders 1 Ronaldo Marmolejo. [address] [place] [address], [id number], [place]. tel:[phone] [facility], [address] [place] [address], [id number] , [place] tel:[phone] Dental Clinic prophy (chief complaint) Encounter for screening for dental disorders 8 Keron Sunshine. [address] [place], [place], [id number], [place]. tel:[phone] Consulting Provider: Jong Cabrales, [address] [place], [address]. tel:[phone] [facility], [address] [place], [place], [id number] , [place] tel: [phone] Dental Clinic dental new (chief complaint) Encounter for screening for dental disorders 8 Choncheryalbert Kwonjay jay. [address] [place], [address], [place]. tel:[phone] PREV VISIT, NEW, AGE 12-17 [facility], [address] [place], [place], [id number] , [place] tel: [phone] [facility] Well child (chief complaint) sports pe (chief complaint) phys sport 7 Sophy Bingham. [address] [place], [address], [place]. tel:[phone] [facility], [address] [place] [address], [id number] , [place] tel: [phone] [facility] No Information - 5 Visci DO Crow. [address] [place], [place], [id number], [place]. tel:[phone] OFFICE/OUTPA TIENT VISIT, EST [facility], [address] [place], [place], [id number] , [place] tel: [phone] [facility] Influenza Vaccine 2- 3 Visci DO Crow. [address] [place], [place], [id number], [place]. tel:[phone] [facility], [address] [place], [place], [id number] , [place] tel: [phone] [facility] No Information 0 1 Visci DO Crow. [address] [place] [address], [id number], [place]. tel:[phone] Family History Family Member Type Diagnosis Age [...] Record Payers Payer name Insurance type Covered alliance party ID Authoriza tion(s) D [place] Adv CFC [address] [employer] [id number] D Medicaid [facility] - [facility] [id number] Medicaid Primary - [facility] [id number] Social History Type Description Quantity Date Captured [...] Of Treatment Date Type Action Status Goal Influenza Vaccine. Due on due Goal RLP. Due on due Goal Depression screening. Due on due Goal Depression screening. Due [...] Goal Depression screening. Due on due Goal Tdap due Goal HPV () due Goal Influenza Vaccine. Due on Oc due Goal Tdap. Due on due Goal Depression screening. Due on due Goal HPV (). Due on 5 due Goal Influenza Vaccine. Due on Oc [...] 2016, ear tubes 2012 HX: born @ [facility] [place] No /labor/delivery complications Surgical Hx: appy 2015, [...] discontinues activity with any discomfort, anxiety, notify softball coach and parent, and seekRetrun 1 year [...]
--- OUTSIDE RECORDS SUMMARY | 2025-06-13 10:39 | XMS_ITS ---
Author Name Auto Generated Organization [facility] Support Name Relationship Address Phone YUDYACH, LOU Next of Kin Unknown [phone] GUNDLACH, LOU Next of Kin Unknown [phone] GUNDLACH, LOU Next of Kin Unknown [phone] Gundlach, Lou Next of Kin [address] [place] [address] + GUNDLACH, LOU Next of Kin Unknown Unavailable GUNDLACH, LOU Next of Kin Unknown Unavailable Gundlach, Lou Next of Kin [address] [place] [address] + GUNDLACH, LOU Next of Kin Unknown Unavailable GUNDLACH, LOU Next of Kin Unknown Unavailable GUNDLACH, LOU Next of Kin Unknown Unavailable [place] [address] [phone] GUNDLACH, LOU Next of Kin Unknown [phone] GUNDLACH, LOU Next of Kin Unknown [phone] GUNDLACH, LOU Next of Kin Unknown Unavailable GUNDLACH, LOU Next of Kin Unknown Unavailable [place] [address] [phone] GUNDLACH, LOU Next of Kin Unknown Unavailable GUNDLACH, LOU Next of Kin Unknown Unavailable [place] [address] [phone] GUNDLACH, LOU Next of Kin Unknown Unavailable GUNDLACH, LOU Next of Kin Unknown Unavailable [place] [address] [phone] GUNDLACH, LOU Next of Kin Unknown Unavailable GUNDLACH, LOU Next of Kin Unknown Unavailable [place] [address] [phone] GUNDLACH, LOU Next of Kin Unknown Unavailable GUNDLACH, LOU Next of Kin Unknown Unavailable [place] [address] [phone] GUNDLACH, LOU Next of Kin Unknown Unavailable GUNDLACH, LOU Next of Kin Unknown Unavailable [place] [address] [phone] GUNDLACH, LOU Next of Kin Unknown Unavailable GUNDLACH, LOU Next of Kin Unknown Unavailable [place] [address] [phone] GUNDLACH, LOU Next of Kin Unknown [phone] GUNDLACH, LOU Next of Kin Unknown Unavailable GUNDLACH, LOU Next of Kin Unknown Unavailable [place] [address] [phone] GUNDLACH, LOU Next of Kin Unknown [phone] GUNDLACH, LOU Next of Kin Unknown Unavailable GUNDLACH, LOU Next of Kin Unknown Unavailable [place] [address] [phone] GUNDLACH, LOU Next of Kin Unknown Unavailable GUNDLACH, LOU Next of Kin Unknown Unavailable [place] [address] [phone] Care Team Providers Care Dialysis Biomed Technician Name Role Phone GUALBERTO VANN Attending Unavailable HARMONY BYERS Attending Unavailable GUALBERTO VANN Attending Unavailable ANIL THAPA Attending Unavailable ANIL THAPA Attending Unavailable GUALBERTO VANN Attending Unavailable TIESHA FUNK Referring Unavailable ANIL THAPA JR Primary Care Unavailable MICH GONZALEZ Attending Unavailable ANIL THAPA JR Referring Unavailable ANIL THAPA JR Primary Care Unavailable TOÑO CHAVEZH-CATIE Attending Unavailable ANIL THAPA JR Referring Unavailable ANIL THAPA JR Primary Care Unavailable ANIL THAPA JR Referring Unavailable ANIL THAPA JR Primary Care Unavailable VU, OSBALDO-CATIE Admitting Unavailable DICK, OSBALDO-CATIE Attending Unavailable KAFTAN JR, ANIL R Primary Care Unavailable CADEN RIVERA Attending Unavailable KAFTAN JR, ANIL R Primary Care Unavailable CADEN RIVERA Attending Unavailable KAFTAN JR, ANIL R Primary Care Unavailable KAFTAN JR, ANIL R Referring Unavailable KAFTAN JR, ANIL R Primary Care Unavailable MICH GONZALEZ Attending Unavailable KAFTAN JR, ANIL R Referring Unavailable KAFTAN JR, ANIL R Primary Care Unavailable VU, OSBALDO-CATIE Attending Unavailable KAFTAN JR, ANIL R Referring Unavailable KAFTAN JR, ANIL R Primary Care Unavailable VU, OSBALDO-CATIE Attending Unavailable KAFTAN JR, ANIL R Referring Unavailable KAFTAN JR, ANIL R Primary Care Unavailable KAFTAN JR, ANIL R Primary Care Unavailable FERNANDA CHRISTY Attending Unavailable KAFTAN JR, ANIL R Primary Care Unavailable DANIELE EDMOND Admitting Unavailable NOLA SESAY Attending Unavailable BONITAFTAN, ANIL R Primary Care Unavailable MILTON HILLIARD Attending Unavailable DIAAN, ANIL R Primary Care Unavailable JOSE ACOSTA Attending Unavailable DIAAN, ANIL R Primary Care Unavailable TERESA ROB Attending Unavailable GUALBERTO VANN Referring Unavailable DIAAN, ANIL R Primary Care Unavailable ÁNGELA DELGADO Attending Unavailable Chris White Attending Unavailable Chris White Admitting Unavailable Katie Thapa Primary Care Unavailable Yaritza Bauer Admitting Unavailable Katie Thapa Primary Care Unavailable Yaritza Bauer Attending Unavailable PROBLEMS DATE TYPE CONDITION / CODE ATTENDING STATUS [facility] 02/27/2025 Unknown Pain, unspecifie d / R52(ICD-10) NA [facility] 02/26/2025 Unknown Complete or unspecified spontaneous without complication / O03.9(ICD-10) NOLA SESAY [facility] 02/26/2025 Unknown Miscarriage / FREETEXT(AOF) NOLA SESAY [facility] 02/22/2025 Admitting diagnosis Amenorrhea, unspecified / N91.2(ICD-10) [facility] 02/18/2025 Unknown Other specified related conditions, unspecified trimester / O26.899(ICD-10) Yaritza Bauer [facility] 02/18/2025 Unknown Unspecified abdo elisa pain / R10.9(ICD-10) Lizette Yaritza Larry [facility] 01/11/2025 Unknown Dizziness and giddiness / R42(ICD-10) MILTON HILLIARD [facility] 12/13/2024 Unknown Threatened Miscarriage / FREETEXT(AOF) FERNANDA CHRISTY [facility] 11/30/2024 Unknown Threatened abort ion / O20.0(ICD-10) TERESA ROB Cas [facility] 11/16/2024 Unknown Noninfective gastroenteritis and colitis, unspecified / K52.9(ICD-10) KARLARA SANDORJERRY [facility] 09/10/2024 Unknown Encounter for examination of ears and hearing without abnormal findings / Z01.10(ICD-10) [facility] 09/10/2024 Unknown Follow-up / FREETEXT(AOF) [facility] 08/09/2024 Unknown Other diseases o f tongue / K14.8(ICD-10) [facility] 08/27/2024 Unknown Other acute postprocedural pain / G89.18(ICD-10) [facility] 08/27/2024 Unknown Lesion of tongue [K14.8] / UNK(Unknown) [facility] 08/07/2024 Unknown Sore Throat / FREETEXT(AOF) [facility] 07/15/2024 Unknown Encounter for follow-up examination after completed treatment for conditions other than malignant neoplasm / Z09(ICD-10) MICH GONZALEZ [facility] 07/15/2024 Unknown Post-op / FREETEXT(AOF) MICH GONZALEZ [facility] 07/03/2024 Unknown Dysphagia, unspecified / R13.10(ICD-10) [facility] 07/03/2024 Unknown Pain in throat / R07.0(ICD-10) [facility] 07/03/2024 Unknown Other chronic pa in / G89.29(ICD-10) NA Active [facility] PROCEDURES No Procedure Records Found RESULTS URINE CULTURE Observed: 04/17/2025 1:15 AM Status: F Source: [facility] >100,000 colonies/ml mixed bacterial skin contaminants 2 Days PERFORMED BY: [place] [address] PATHOLOGIST MACHINIST FIRST CLASS ANNA KEENAN M.D. Performed By: #### CUU #### [address] [address] [facility] HCG-BETA, SERUM Collected: 8:56 AM Status: COMPLETED Source: [facility] Order Comment: WEEKS (SINCE LMP) MIU/mL 3 [...] necessarily diagnostic for trophoblastic or nontrophoblastic neoplasms. TYPE CODE TESTS RESULT OUT OF RANGE REFERENCE UNITS LAB HCG SERUM B HCG,3RD I.S. 5375 mIU/mL Performed By: #### HCG #### [facility] ([facility]) [address] [place] [address] VIR HEMOGLOBIN AND HEMATOCRIT, BLOOD Collected: 02/27/2025 6:01 AM Status: COMPLETED Source: [facility] TYPE CODE TESTS RESULT OUT OF RANGE REFERENCE UNITS LAB HGB HEMOGLOBIN 12.5 11.7-15.5 g/dL LAB HCT HEMATOCRIT 36.1 35-47 % Performed By: #### HH #### [address] [address] VIR POCT , URINE (NUCG) Collected: 02/26/2025 10:12 PM Status: COMPLETED Source: [facility] TYPE CODE TESTS RESULT OUT OF RANGE REFERENCE UNITS LAB NUCG URINE NURSING Positive Abnormal Negative Performed By: #### NUCG #### [address] [address] VIR POCT NURSING URINE MACROSCOPIC UA Collected: 02/26/2025 10:10 PM Status: COMPLETED Source: [facility] TYPE CODE TESTS RESULT OUT OF RANGE REFERENCE UNITS LAB SPGRN SPECIFIC GRAVITY EMILY 1.015 1.010, 1.015, 1.020, 1.025 LAB LESTN LEUKOCYTE ESTERASE EMILY Negative Negative LAB NITN NITRITE EMILY Negative Negative LAB PHURN PH EMILY 6.0 5.0, 6.0, 6.5, 7.0, 7.5, 8.0, 8.5, 5.5 LAB PRURN PROTEIN EMILY Negative Negative LAB GLURN GLUCOSE EMILY Negative Negative LAB KETN KETONES EMILY 15 mg/dL Abnormal Negative LAB UROBN UROBILINOGEN EMILY 0.2 E.U./dL LAB BILEN BILIRUBIN EMILY Negative Negative LAB BLURN BLOOD/HGB EMILY Large Abnormal Negative Performed By: #### NUM #### [address] [address] VIR URINE CULTURE Observed: 02/26/2025 10:00 PM Status: COMPLETED Source: [facility] CULTURE RESULTS <10,000 ORGANISMS/mL NORMAL URO GENITAL SHAQ Performed By: #### UC #### [facility] ([facility]) [address] [place] [address] VIR US PREG LESS THAN 14 WKS FOR OVARIAN TORSION W/TV/DUPLEX Observed: 02/26/2025 6:44 PM Status: COMPLETED Source: [facility] US PREG LESS THAN 14 WKS FOR [...] transvaginal ultrasound in 7-10 days. Approved by Bailey Matos MD on 02/26/2025 7:56 PM IYung MD have personally reviewed the image(s) and agree with and/or edited the report Finalized by Yung Alonso MD on 02/26/2025 8:17 PM CBC WITH AUTO DIFFERENTIAL Collected: 0 02/26/2025 6:18 PM Status: COMPLETED Source: [facility] TYPE CODE TESTS RESULT OUT OF RANGE REFERENCE UNITS LAB WBC WBC 8.6 4-11 x10E9/L LAB RBC RBC COUNT 4.72 3.8-5.2 X10E12/L LAB HGB HEMOGLOBIN 14.6 11.7-15.5 g/dL LAB HCT HEMATOCRIT 43.1 35-47 % LAB MCV MCV 91 80-100 fL LAB MCH MCH 30.8 27-34 pg LAB MCHC MCHC 33.8 32-36 g/dL LAB RDW RDW 13.2 11.5-15 % LAB PLTC PLATELET COUNT 239 150-450 X10E9/L LAB MPV MPV 8.1 7-12 fL LAB NEUT NEUTROPHILS RELATIVE PERCENT BY AUTOMATED COUNT 70.3 % LAB LYMP LYMPHOCYTES RELATIVE PERCENT BY AUTOMATED COUNT 20.4 % LAB MONO MONOCYTES RELATIVE PERCENT BY AUTOMATED COUNT 8.1 % LAB EOS EOSINOPHILS RELATIVE PERCENT BY AUTOMATED COUNT 0.5 % LAB BASO BASOPHILS RELATIVE PERCENT BY AUTOMATED COUNT 0.7 % LAB ANEUT NEUTROPHILS ABSOLUTE COUNT BY AUTOMATED COUNT 6.0 1.5-6.6 10*3/uL LAB ALYMP LYMPHOCYTES ABSOLUTE COUNT (10*3/UL) BY AUTOMATED COUNT 1.7 1.0-3.5 10*3/uL LAB AMONO MONOCYTES ABSOLUTE COUNT (10*3/UL) BY AUTOMATED COUNT 0.7 0.0-0.9 10*3/uL LAB AEOS EOSINOPHILS ABSOLUTE COUNT (10*3/UL) BY AUTOMATED COUNT 0.0 0.0-0.4 10*3/uL LAB ABASO BASOPHILS ABSOLUTE COUNT (10*3/UL) BY AUTOMATED COUNT 0.1 0.0-0.2 10*3/uL LAB DTYPE CELLAVISION DIFFERENTIAL TYPE AUTOMATED DIFFERENTIAL Performed By: #### CBCA #### [facility] ([address] COMPREHENSIVE METABOLIC PANEL Collected: 2024 6:18 PM Status: COMPLETED Source: [facility] TYPE CODE TESTS RESULT OUT OF RANGE REFERENCE UNITS LAB NA SODIUM 132 Low 134-146 mmol/L LAB K POTASSIUM 3.4 Low 3.5-5.0 mmol/L LAB CL CHLORIDE 100 98-109 mmol/L LAB CO2 CARBON DIOXIDE 27 22-32 mmol/L LAB AGAP ANION GAP 5 5-15 mmol/L LAB BUN BLOOD UREA NITROGEN 12 5-23 mg/dL LAB CRET CREATININE 0.71 0.40-1.00 mg/dL Result Comment: METHOD TRACE ABLE TO IDMS STANDARD LAB GLU GLUCOSE 100 High 65-99 mg/dL LAB CA CALCIUM 8.8 8.5-10.5 mg/dL LAB TP TOTAL PROTEIN 7.4 6.0-8.0 g/dL LAB ALB ALBUMIN 4.5 3.2-5.3 g/dL LAB ALK ALKALINE PHOSPHATASE 67 39-130 U/L LAB AST AST 24 <=41 U/L LAB ALT ALT 27 <=31 U/L LAB TBIL BILIRUBIN,TOTAL 2.0 High 0.3-1.2 mg/dL LAB EGFR EGFR (CKD-EPI) NON-RACE DEPENDENT >^90 >=60 ml/min/1 .73sq.m Result Comment: eGFR not rep orted due to non-numeric value for Creatinine. Reported eGFR is based on the CKD-EPI 2020 equation that does not use a race coefficient. Performed By: #### CMP #### [facility] ([address] [place] [address] VIR HCG-BETA, SERUM Collected: 6:18 PM Status: COMPLETED Source: [facility] Order Comment: WEEKS (SINCE LMP) MIU/mL 3 [...] necessarily diagnostic for trophoblastic or nontrophoblastic neoplasms. TYPE CODE TESTS RESULT OUT OF RANGE REFERENCE UNITS LAB HCG SERUM B HCG,3RD I.S. 74782 mIU/mL Performed By: #### HCG #### [facility] ([address] [place] [address] VIR HCG, QUANT Collected: 9:18 AM Status: F Source: [facility] TYPE CODE TESTS RESULT OUT OF RANGE REFERENCE UNITS LAB BHCG(LOINC) HCG, Quant 5908.0 High <5 mIU/mL Result Comment: Non-preg premeno <=5 Postmeno <=8 Male <=3 If HCG results do not concur with clinical observations, additional testing to confirm results is recommended. Performed By: #### BHCG #### [facility] [address] [place] [address] Electromedical Service Engineer: Caden Brown MD US OB TRANSVAGINAL Observed: 02/18/2025 8:35 PM Status: COMPLETED Source: [facility] Main [address] [address] Ultrasound Report Signed Patient: Charis Allen MR#: [id number] : 2000 Acct:[id number] Age/Sex: 24 / F ADM Date: 02/18/25 Loc: ER Room: Type: [facility] ER Attending Dr: Ordering Provider: Yaritza Bauer APRN Date of Service: 02/18/25 US/US OB <= 14 weeks fetus: Abdominal Pain ([id number]) US/US OB transvaginal: R/O ECTOPIC Copies to: [...] Camacho M.D. 02/18/2025 8:45 PM Dictation Location: [place] [address] Tech: Roselia Cueva Transcribed By: PWS 02/18/252044 Dictated By: Michael Camacho DO 02/18/252034 Signed By: <Electronically signed by Michael Camacho DO in OV> 02/18/252044 COMPLETE BLOOD COUNT AUTO DIFF Collected: 02/18/2025 6:25 PM Status: F Source: [facility] TYPE CODE TESTS RESULT OUT OF RANGE REFERENCE UNITS LAB WBC White Blood Count 5.2 Normal 3.8-11.6 10*3/uL LAB UNWBC Uncorrected WBC 5.2 Normal 3.8-11.6 10*3/uL LAB RBC Red Blood Count 4.56 Normal 3.60-5.00 10*6/u L LAB HGB Hemoglobin 14.1 Normal 11.8-15.4 g/dL LAB HCT Hematocrit 41.8 Normal 34.0-46.4 % LAB MCV Mean Corpuscular Volume 91.6 Normal 80-100 fL LAB MCH Mean Corpuscular Hemoglobin 30.9 Normal 24.7-34.3 pg LAB MCHC Mean Corpuscular HGB Conc 33.7 Normal 32.0-35.0 g/dL LAB RDW Red Cell Distribution Width 13.5 Normal 11.9-15.3 % LAB PLT Platelet Count 181 Normal 150-450 10*3/uL LAB MPV Mean Platelet Volume 8.0 Normal 6.3-10.7 fL LAB MDW Monocyte Distribution Width 22.50 High 0.00-20.00 % Result Comment: For adults i n ED, MDW > 20.0 may be associated with a higher risk of sepsis during the first 12 hrs of hospital admission LAB NE% Neutrophils % (Auto) 60.6 . % LAB LY% Lymphocytes % (Auto) 30.2 . % LAB MO% Monocytes % (Auto) 6.6 . % LAB EO% Eosinophils % (Auto) 0.7 . % LAB BA% Basophils % (Auto) 1.9 . % LAB NRBC% NRBC% 0.1 Normal 0-0.5 /100{WBC } LAB NE# Neutrophils # (Auto) 3.2 Normal 1.8-7.7 10*3/uL LAB LY# Lymphocytes # (Auto) 1.6 Normal 1.00-4.8 10*3/uL LAB MO# Monocytes # (Auto) 0.3 Normal 0.0-0.8 10*3/uL LAB EO# Eosinophils # (Auto) 0.0 Normal 0.0-0.45 10*3/uL LAB BA# Basophils # (Auto) 0.1 Normal 0.0-0.2 10*3/uL Result Comment: PERFORMED BY : [place] [address] PATHOLOGIST MACHINIST FIRST CLASS SHANITA MÁRQUEZ M.D. Performed By: #### HEPATIC, BMP, PTT, LIPASE, PT, CBC #### [address] HEPATIC PANEL Collected: 02/18/2025 6:25 PM Status: F Source: [facility] TYPE CODE TESTS RESULT OUT OF RANGE REFERENCE UNITS LAB TP Total Protein 6.7 Normal 6.4-8.9 g/dL LAB ALB Albumin Level 4.3 Normal 3.5-5.7 g/dL LAB GLOB Globulin 2.4 g/dL LAB AGRATIO Albumin/Globulin Ratio 1.8 LAB BILIT Bilirubin,Total 1.1 High 0.3-1.0 mg/dL LAB BILID Bilirubin,Direct 0.30 High 0.03-0.18 mg/dL LAB BILII Bilirubin,Indirect 0.8 mg/dL LAB AST Aspartate Amino Transferase 21 Normal 13-39 U/L LAB ALT Alanine Aminotransferase 21 Normal 7-52 U/L LAB ALP Alkaline Phosphatase 58 Normal 34-104 U/L Performed By: #### HEPATIC, BMP, PTT, LIPASE, PT, CBC #### [place] [id number] [facility] BASIC METABOLIC PANEL Collected: 02/18/2025 6:25 PM Status: F Source: [facility] TYPE CODE TESTS RESULT OUT OF RANGE REFERENCE UNITS LAB GLU Glucose 87 Normal 70-100 mg/dL Result Comment: Random Gluco se Reference Range is dependent on time and content of last meal. Glucose of more than 200 mg/dL in a nonstressed, ambulatory subject supports the diagnosis of Diabetes Mellitus. ADA recommended reference range LAB BUN Blood Urea Nitrogen 13 Normal 7-25 mg/dL LAB CREATT Creatinine 0.77 Normal 0.60-1.20 mg/dL LAB GFReNR Estimated GFR >60.0 mL/Min LAB NA Sodium 137 Normal 136-145 mmol/L LAB K Potassium 3.6 Normal 3.5-5.1 mmol/L LAB CL Chloride 104 Normal 98-107 mmol/L LAB CO2 Carbon Dioxide 27.9 Normal 21.0-31.0 mmol/L LAB GAP Anion Gap 8.7 Normal 6.0-15.0 meq/L LAB CA Calcium 9.2 Normal 8.6-10.3 mg/dL LAB CRCLPHA Creatinine Clr Calc Pharmacy 107.28 Performed By: #### HEPATIC, BMP, PTT, LIPASE, PT, CBC #### [facility] [address] [place] [id number] [facility] LIPASE Collected: 6:25 PM Status: F Source: [facility] TYPE CODE TESTS RESULT OUT OF RANGE REFERENCE UNITS LAB LIPASE Lipase 22.0 Normal 11.0-82.0 U/L Result Comment: PERFORMED BY : [place] [address] PATHOLOGIST MACHINIST FIRST CLASS SHANITA MÁRQUEZ M.D. Performed By: #### HEPATIC, BMP, PTT, LIPASE, PT, CBC #### [place] [id number] [facility] PROTHROMBIN TIME INR Collected: 02/18/2025 6:25 PM S tatus: F Source: [facility] TYPE CODE TESTS RESULT OUT OF RANGE REFERENCE UNITS LAB R PT Prothrombin Time 12.3 Normal 9.0-12.9 s Result Comment: A hematocrit value greater than 55% may lead to inaccurate results in coagulation testing. Patients having hematocrit values >55% require a special collection tube for coagulation studies. Please contact the laboratory at [phone] for redraw instructions. LAB INR INR 1.1 Result Comment: INR Therapeu tic Range A) Pre- and Peroperative OAT started [...] valves: 3 - 4.5 Performed By: #### HEPATIC, BMP, PTT, LIPASE, PT, CBC #### [place] [id number] [facility] PARTIAL THROMBOPLASTIN TIME Collected: 02/18/2025 6:2 5 PM Status: F Source: [facility] TYPE CODE TESTS RESULT OUT OF RANGE REFERENCE UNITS LAB PTT Partial Thromboplastin Time 29.3 Normal 25.1-36.5 s Result Comment: A hematocrit value greater than 55% may lead to inaccurate results in coagulation testing. Patients having hematocrit values >55% require a special collection tube for coagulation studies. Please contact the laboratory at [phone] for redraw instructions. PERFORMED BY: [place] [address] PATHOLOGIST MACHINIST FIRST CLASS SHANITA MÁRQUEZ M.D. Performed By: #### HEPATIC, BMP, PTT, LIPASE, PT, CBC #### [place] [id number] [facility] HCG,QUANTITATIVE Collected: 6:25 PM Status: F Source: [facility] TYPE CODE TESTS RESULT OUT OF RANGE REFERENCE UNITS LAB HCGQNT HCG,Quantit ative 1673.00 m[iU]/mL Result Comment: Approximate Approximate hCG Gestational Age Range (mIU/ml) (weeks) 0.2-1 5-50 1-2 50-500 2-3 100-5,000 3-4 500-10,000 4-5 1,000-50,000 5-6 10,000-100,000 6-8 15,000-200,000 8-12 10,000-100,000 PERFORMED BY: [address] [place] [address] PATHOLOGIST MACHINIST FIRST CLASS SHANITA MÁRQUEZ M.D. Performed By: #### HCGQNT ## ## [place] [id number] [facility] ABO/RH TYPE Collected: 6:25 PM Status: F Source: [facility] TYPE CODE TESTS RESULT OUT OF RANGE REFERENCE UNITS LAB BTV Blood Type A Positive Result Comment: PERFORMED BY : [place] [address] PATHOLOGIST MACHINIST FIRST CLASS SHANITA MÁRQUEZ M.D. FUNGAL SMEAR Observed: 02/18/2025 6:11 PM Status: F Source: [facility] Fungus Smear Results No Yeast Like Elements Seen Trichomonas Screen No Trichomonas Seen Trich Reference Reference range = None Seen PERFORMED BY: [place] [address] PATHOLOGIST MACHINIST FIRST CLASS SHANITA MÁRQUEZ M.D. Performed By: #### GCCHLAMAM P #### [facility] , #### FS #### [facility] [address] [place] [address] CHLAMYDIA/GC AMPLIFICATION Collected: 02/18/2025 6:11 PM Status: F Source: [facility] Order Comment: SOURCE OF SPE CIMEN: Genital TYPE CODE TESTS RESULT OUT OF RANGE REFERENCE UNITS LAB CHLAM JANET.... Chlamydia Trachomotis, JANET Negative Negative LAB GC JANET... Neisseria Gonorrhoeae, JANET Negative Negative Result Comment: Performed at : =[facility] [id number] Electromedical Service Engineer: Barbie Mota MD, Phone: [phone] PERFORMED BY: [place] [id number] PATHOLOGIST MACHINIST FIRST CLASS SHANITA MÁRQUEZ M.D. Performed By: #### GCCHLAMAM P #### [facility] , #### FS #### [facility] [address] [place], [place] [id number] [facility] URINALYSIS Collected: 02/18/2025 6:11 PM Status: F Source: [facility] Order Comment: Name Collecti on Type:: Clean-Voided Midstream TYPE CODE TESTS RESULT OUT OF RANGE REFERENCE UNITS LAB UCOL Color,Urine Yellow Yellow LAB UAPP Appearance,Uri ne Clear Clear LAB USG Specificy [place],Urine 1.021 Normal 1.001-1.030 LAB UPH pH,Urine 6.5 Normal 5.0-9.0 LAB ULE Leukocyte Esterase,Urine Negative Negative LAB UNIT Nitrite,Urine Negative Negative LAB UPRO Protein,Urine Negative Negative LAB UGL Glucose,Urine (UA) Normal Normal LAB UKET Ketones,Urine Negative Negative LAB UURO Urobilinogen,U rine Normal Normal LAB UBIL Bilirubin,Urin e Negative Negative LAB UBLD Occult Blood,Urine Negative Negative Performed By: #### UHCG, UA #### [address] HCG,URINE Collected: 02/18/2025 6:11 PM Status: F Source: [facility] Order Comment: Name Collecti on Type:: Clean-Voided Midstream TYPE CODE TESTS RESULT OUT OF RANGE REFERENCE UNITS LAB UHCGQ HCG Qualitative,U rine Positive High Result Comment: PERFORMED BY : [place] [address] PATHOLOGIST MACHINIST FIRST CLASS SHANITA MÁRQUEZ M.D. Performed By: #### UHCG, UA #### [address] CBC WITH DIFF Collected: 01/11/2025 6:58 PM Status: F Source: [facility] TYPE CODE TESTS RESULT OUT OF RANGE REFERENCE UNITS LAB WBC(LOINC) WBC Count 6.5 3.5-11.0 k/uL LAB RBC(LOINC) RBC Count 4.44 4.00-5.20 m/uL LAB HGB(LOINC) Hemoglobin 13.9 12.0-16.0 g/dL LAB HCT(LOINC) Hematocrit 40.6 36.0-46.0 % LAB MCV(LOINC) MCV 91.4 80.0-100.0 fL LAB MCH(LOINC) MCH 31.3 26.0-34.0 pg LAB MCHC(LOINC) MCHC 34.2 31.0-37.0 g/dL LAB RDW(LOINC) RDW 12.1 12.1-15.2 % LAB PLT(LOINC) Platelet Count 202 140-450 k/uL LAB MPVX(LOINC) MPV 9.8 6.0-12.0 fL LAB SEG(LOINC) Neutrophil (Seg) 59 47-75 % LAB LYM(LOINC) Lymphocyte 30 15-40 % LAB MON(LOINC) Monocyte 9 High 4-8 % LAB EO(LOINC) Eosinophil 1 0-5 % LAB BASO(LOINC) Basophil 1 0-2 % LAB IGRAN(LOINC) Immature Granulocyte 0 0-5 % LAB ASEG(LOINC) Abs.Neutrophil (Seg) 3.92 2.5-7.0 k/uL LAB ALYM(LOINC) Abs. Lymph 1.94 1.00-4.80 k/uL LAB AMONO(LOINC) Abs. Monocyte 0.59 0.00-1.00 k/u L LAB AEO(LOINC) Abs. Eosinophil 0.03 0.00-0.40 k/u L LAB ABASO(LOINC) Abs. Basophil 0.03 0.00-0.20 k/u L LAB AIGRAN(LOINC) Abs.Imm.Granuloc yte 0.00 0.00-0.30 k/uL Performed By: #### CP, HCG, CDP #### [facility] [address] [place] [address] Electromedical Service Engineer: Caden Brown MD HCG SCREEN, BLOOD Collected: 5 6:58 PM Status: F Source: [facility] TYPE CODE TESTS RESULT OUT OF RANGE REFERENCE UNITS LAB HCG(LOINC) HCG Screen, Blood NEGATIVE NEG Result Comment: Specimens wi th hCG levels near the threshold of the test (25 mIU/mL) may give a negative or indeterminate result. In such cases, another test should be performed with a new specimen in 48-72 hours. If early is suspected clinically in this setting, correlation with quantitative serum b-hCG level is suggested. [facility] has confirmed the use of plasma for this test. This has not been cleared or approved by the [place] Food and Drug Administration. The FDA has determined that such clearance is not necessary. Performed By: #### CP, HCG, CDP #### [facility] [address] [place] [address] Electromedical Service Engineer: Caden Brown MD COMP METABOLIC PROF Collected: 01/12/20 6:58 PM Status: F Source: [facility] TYPE CODE TESTS RESULT OUT OF RANGE REFERENCE UNITS LAB NA(LOINC) NA (Sodium) 138 135-144 mmol/L LAB K(LOINC) K (Potassium) 3.5 Low 3.7-5.3 mmol/L LAB CL(LOINC) Chloride 102 98-107 mmol/L LAB HCO(LOINC) CO2 26 20-31 mmol/L LAB GAP(LOINC) Anion Gap 10 9-17 mmol/L LAB GLU(LOINC) Glucose 90 70-99 mg/dL LAB BUN(LOINC) BUN (Urea N) 9 6-20 mg/dL LAB CRE(LOINC) Creatinine 0.8 0.5-0.9 mg/dL LAB EGFR(LOINC) eGFR >90 >60 mL/min/1. 73m2 Result Comment: These results are not intended [...] following therapy that affects renal tubular secretion. LAB CA(LOINC) Calcium 9.2 8.6-10.4 mg/dL LAB TP(LOINC) Protein, Total 6.9 6.4-8.3 g/dL LAB ALB(LOINC) Albumin 4.5 3.5-5.2 g/dL LAB AG(LOINC) Albumin/Glob Ratio 1.9 1.0-2.5 LAB TBIL(LOINC) Bilirubin, Total 1.0 0.3-1.2 mg/dL LAB ALP(LOINC) Alkaline Phos 78 35-104 U/L LAB ALT(LOINC) ALT 22 5-33 U/L LAB AST(LOINC) AST 26 <32 U/L Performed By: #### CP, HCG, CDP #### [facility] [address] [place] [address] Electromedical Service Engineer: Caden Brown MD GLUCOSE,WHOLE BLOOD Collected: 01/12/20 6:31 PM Status: F Source: [facility] TYPE CODE TESTS RESULT OUT OF RANGE REFERENCE UNITS LAB WFGLU(LOINC) Glucose,Whol e Blood 108 High 65-99 mg/dL SERUM B HCG,3RD I.S. Collected: 025 9:59 PM Status: COMPLETED Source: [facility] TYPE CODE TESTS RESULT OUT OF RANGE REFERENCE UNITS LAB HCG(LOINC) SERUM B HCG,3RD I.S. 384 mIU/mL Result Comment: NEW REFERENC E RANGE WEEKS (SINCE LMP) MIU/mL 3 WEEKS [...] trophoblastic or nontrophoblastic neoplasms. Performed By: #### [id number] # ### [facility] ([id number]) [address] [place] [address], [place] [address] URINALYSIS Collected: 12/13/2024 9:40 PM S tatus: COMPLETED Source: [facility] TYPE CODE TESTS RESULT OUT OF RANGE REFERENCE UNITS LAB COLP(LOINC) COLOR YELLOW YELLOW LAB TURB(LOINC) TURBIDITY CLEAR CLEAR LAB SPGR(LOINC) SPECIFIC GRAVITY 1.020 1.003-1.035 LAB NITR(LOINC) NITRITE Negative (qualifier value) NEG LAB PHUR(LOINC) PH,URINE 7.0 5.0-8.5 LAB LEST(LOINC) LEUKOCYTE ESTERASE Negative (qualifier value) NEG LAB PRU(LOINC) PROTEIN Negative (qualifier value) NEG mg/dL LAB GLUR(LOINC) GLUCOSE (URINE) Negative (qualifier value) NEG mg/dL LAB KET(LOINC) KETONES (URINE) Negative (qualifier value) NEG mg/dL LAB UROB(LOINC) UROBILINOGEN 0.2 <1.1 eu/dL LAB BILEU(LOINC) BILIRUBIN (URINE) Negative (qualifier value) NEG LAB BLUR(LOINC) BLOOD/HGB Large Abnormal NEG LAB WBCU(LOINC) W.B.CELLS 0 0-5 /hpf LAB RBCU(LOINC) R.B.CELLS 5 0-5 /hpf LAB SEP(LOINC) SQUAMOUS EPITHELIUM 8 High 0-5 /hpf LAB TEPI(LOINC) TRANSITIONAL EPITH 1 High 0 /hpf Performed By: #### UA #### [facility] ([id number]) [address] [place] [address], [place] [address] URINALYSIS, ROUTINE Collected: 12/01/2024 2:[address] atus: F Source: [facility] TYPE CODE TESTS RESULT OUT OF RANGE REFERENCE UNITS LAB UCO(LOINC) Color Yellow YEL LAB UTU(LOINC) Clarity, Urine Clear CLEAR LAB UGL(LOINC) Glucose,Semi-q nt,Ur NEGATIVE NEG mg/dL LAB UBI(LOINC) Bilirubin, SemiQt,Ur NEGATIVE NEG LAB UKE(LOINC) Ketones, Urine NEGATIVE NEG mg/dL LAB USG(LOINC) Spec. [place],Ur 1.015 1.005-1.030 LAB UHB(LOINC) Blood, Urine NEGATIVE NEG LAB UPH(LOINC) PH,Ur 8.0 5.0-8.0 LAB UPR(LOINC) Protein, Semi-qnt,Ur NEGATIVE NEG mg/dL LAB UUR(LOINC) Urobilinogen,U r Normal 0.0-1.0 EU/dL LAB UNI(LOINC) Nitrite,Ur NEGATIVE NEG LAB ULE(LOINC) Leukocyte Esterase NEGATIVE NEG LAB UCOMM(LOINC) Comment Performed By: #### UA #### [facility] [address] [place] [address] Electromedical Service Engineer: Caden Brown MD HCG, QUANT Collected: 1:02 AM Status: F Source: [facility] TYPE CODE TESTS RESULT OUT OF RANGE REFERENCE UNITS LAB BHCG(LOINC) HCG, Quant 1440.0 High <5 mIU/mL Result Comment: Non-preg premeno <=5 Postmeno <=8 Male <=3 If HCG results do not concur with clinical observations, additional testing to confirm results is recommended. Performed By: #### BHCG #### [facility] [address] [place] [address] Electromedical Service Engineer: Caden Brown MD CBC WITH DIFF Collected: 12/01/2024 12:56 AM Status: F Source: [facility] TYPE CODE TESTS RESULT OUT OF RANGE REFERENCE UNITS LAB WBC(LOINC) WBC Count 8.3 3.5-11.0 k/uL LAB RBC(LOINC) RBC Count 4.21 4.00-5.20 m/uL LAB HGB(LOINC) Hemoglobin 13.0 12.0-16.0 g/dL LAB HCT(LOINC) Hematocrit 38.2 36.0-46.0 % LAB MCV(LOINC) MCV 90.7 80.0-100.0 fL LAB MCH(LOINC) MCH 30.9 26.0-34.0 pg LAB MCHC(LOINC) MCHC 34.0 31.0-37.0 g/dL LAB RDW(LOINC) RDW 11.8 Low 12.1-15.2 % LAB PLT(LOINC) Platelet Count 238 140-450 k/uL LAB MPVX(LOINC) MPV 9.3 6.0-12.0 fL LAB SEG(LOINC) Neutrophil (Seg) 65 47-75 % LAB LYM(LOINC) Lymphocyte 24 15-40 % LAB MON(LOINC) Monocyte 10 High 4-8 % LAB EO(LOINC) Eosinophil 1 0-5 % LAB BASO(LOINC) Basophil 0 0-2 % LAB IGRAN(LOINC) Immature Granulocyte 0 0-5 % LAB ASEG(LOINC) Abs.Neutrophil (Seg) 5.44 2.5-7.0 k/uL LAB ALYM(LOINC) Abs. Lymph 1.98 1.00-4.80 k/uL LAB AMONO(LOINC) Abs. Monocyte 0.80 0.00-1.00 k/u L LAB AEO(LOINC) Abs. Eosinophil 0.04 0.00-0.40 k/u L LAB ABASO(LOINC) Abs. Basophil 0.03 0.00-0.20 k/u L LAB AIGRAN(LOINC) Abs.Imm.Granuloc yte 0.01 0.00-0.30 k/uL Performed By: #### CP, CDP # ### [facility] [address] [place] [address] Electromedical Service Engineer: Caden Brown MD COMP METABOLIC PROF Collected: 12/01/19 12:56 AM Status: F Source: [facility] TYPE CODE TESTS RESULT OUT OF RANGE REFERENCE UNITS LAB NA(LOINC) NA (Sodium) 139 135-144 mmol/L LAB K(LOINC) K (Potassium) 3.6 Low 3.7-5.3 mmol/L LAB CL(LOINC) Chloride 105 98-107 mmol/L LAB HCO(LOINC) CO2 24 20-31 mmol/L LAB GAP(LOINC) Anion Gap 10 9-17 mmol/L LAB GLU(LOINC) Glucose 64 Low 70-99 mg/dL LAB BUN(LOINC) BUN (Urea N) 15 6-20 mg/dL LAB CRE(LOINC) Creatinine 0.7 0.5-0.9 mg/dL LAB EGFR(LOINC) eGFR >90 >60 mL/min/1. 73m2 Result Comment: These results are not intended [...] following therapy that affects renal tubular secretion. LAB CA(LOINC) Calcium 9.1 8.6-10.4 mg/dL LAB TP(LOINC) Protein, Total 6.5 6.4-8.3 g/dL LAB ALB(LOINC) Albumin 4.2 3.5-5.2 g/dL LAB AG(LOINC) Albumin/Glob Ratio 1.8 1.0-2.5 LAB TBIL(LOINC) Bilirubin, Total 1.2 0.3-1.2 mg/dL LAB ALP(LOINC) Alkaline Phos 61 35-104 U/L LAB ALT(LOINC) ALT 27 5-33 U/L LAB AST(LOINC) AST 24 <32 U/L Performed By: #### CP, CDP # ### [facility] [address] [place] [address] Electromedical Service Engineer: Caden Brown MD URINALYSIS, ROUTINE Collected: 11/16/2024 2:[address] atus: F Source: [facility] TYPE CODE TESTS RESULT OUT OF RANGE REFERENCE UNITS LAB UCO(LOINC) Color Yellow YEL LAB UTU(LOINC) Clarity, Urine Clear CLEAR LAB UGL(LOINC) Glucose,Semi-q nt,Ur NEGATIVE NEG mg/dL LAB UBI(LOINC) Bilirubin, SemiQt,Ur NEGATIVE NEG LAB UKE(LOINC) Ketones, Urine NEGATIVE NEG mg/dL LAB USG(LOINC) Spec. [place],Ur 1.010 1.005-1.030 LAB UHB(LOINC) Blood, Urine NEGATIVE NEG LAB UPH(LOINC) PH,Ur 7.0 5.0-8.0 LAB UPR(LOINC) Protein, Semi-qnt,Ur NEGATIVE NEG mg/dL LAB UUR(LOINC) Urobilinogen,U r Normal 0.0-1.0 EU/dL LAB UNI(LOINC) Nitrite,Ur NEGATIVE NEG LAB ULE(LOINC) Leukocyte Esterase NEGATIVE NEG LAB UCOMM(LOINC) Comment Performed By: #### UA #### [facility] [address] [place] [address] Electromedical Service Engineer: Caden Brown MD CT ABDOMEN PELVIS W IV CONTRAST Observed: 11/16/2024 2:19 AM Status: F Source: [facility] EXAMINATION: CT ABDOMEN PELV IS W IV CONTRAST, 11/16/2024 1:55 AM EST [...] by: Сергей Cobian MD 11/16/24 Final result XR CHEST PORTABLE Observed: 11/16/2024 2:14 AM Status: F Source: [facility] CLINICAL HISTORY: Shortness of breath. Chest pain. CHEST PORTABLE AP VIEW: The lungs are clear. No pneumothorax. The pulmonary vascularity and cardiomediastinal silhouette are normal. No acute fracture is seen. IMPRESSION: Normal chest. Interpreted by: Сергей Cobian MD Signed by: Сергей Cobian MD 11/16/24 Final result FLU A/B AG DETECTION Collected: 11/16/2024 1:20 AM S tatus: F Source: [facility] TYPE CODE TESTS RESULT OUT OF RANGE REFERENCE UNITS LAB FLUAAG(INC) Flu A Ag Detection NEGATIVE NEG Result Comment: for Influenz a A Antigen LAB [facility] Flu B Ag Detection NEGATIVE NEG Result Comment: for Influenz a B Antigen. Performed By: #### FLUABA ## ## [facility] [address] [place] [address] Electromedical Service Engineer: Caden Brown MD SARS-COV-2 Collected: 1:20 AM Status: F Source: [facility] TYPE CODE TESTS RESULT OUT OF RANGE REFERENCE UNITS LAB COVR(LOINC) SARS-CoV-2,R apid Not Detected NOTDET Result Comment: Rapid NAAT: The specimen is [...] Isothermal Nucleic Acid Amplification Performed By: #### COVRB ### # [facility] [address] [place] [address] Electromedical Service Engineer: Caden Brown MD CBC WITH DIFF Collected: 11/16/2024 1:09 AM Status: F Source: [facility] TYPE CODE TESTS RESULT OUT OF RANGE REFERENCE UNITS LAB WBC(LOINC) WBC Count 11.8 High 3.5-11.0 k/uL LAB RBC(LOINC) RBC Count 4.79 4.00-5.20 m/uL LAB HGB(LOINC) Hemoglobin 14.9 12.0-16.0 g/dL LAB HCT(LOINC) Hematocrit 43.3 36.0-46.0 % LAB MCV(LOINC) MCV 90.4 80.0-100.0 fL LAB MCH(LOINC) MCH 31.1 26.0-34.0 pg LAB MCHC(LOINC) MCHC 34.4 31.0-37.0 g/dL LAB RDW(LOINC) RDW 12.2 12.1-15.2 % LAB PLT(LOINC) Platelet Count 243 140-450 k/uL LAB MPVX(LOINC) MPV 9.6 6.0-12.0 fL LAB SEG(LOINC) Neutrophil (Seg) 81 High 47-75 % LAB LYM(LOINC) Lymphocyte 15 15-40 % LAB MON(LOINC) Monocyte 4 4-8 % LAB EO(LOINC) Eosinophil 0 0-5 % LAB BASO(LOINC) Basophil 0 0-2 % LAB IGRAN(LOINC) Immature Granulocyte 0 0-5 % LAB ASEG(LOINC) Abs.Neutrophil (Seg) 9.54 High 2.5-7.0 k/uL LAB ALYM(LOINC) Abs. Lymph 1.82 1.00-4.80 k/uL LAB AMONO(LOINC) Abs. Monocyte 0.43 0.00-1.00 k/u L LAB AEO(LOINC) Abs. Eosinophil 0.01 0.00-0.40 k/u L LAB ABASO(LOINC) Abs. Basophil 0.01 0.00-0.20 k/u L LAB AIGRAN(LOINC) Abs.Imm.Granuloc yte 0.01 0.00-0.30 k/uL Performed By: #### CP, LIP, TROPI, CDP, HCG #### [facility] [address] [place] [address] Electromedical Service Engineer: Caden Brown MD HCG SCREEN, BLOOD Collected: 5 1:09 AM Status: F Source: [facility] TYPE CODE TESTS RESULT OUT OF RANGE REFERENCE UNITS LAB HCG(LOINC) HCG Screen, Blood NEGATIVE NEG Result Comment: Specimens wi th hCG levels near the threshold of the test (25 mIU/mL) may give a negative or indeterminate result. In such cases, another test should be performed with a new specimen in 48-72 hours. If early is suspected clinically in this setting, correlation with quantitative serum b-hCG level is suggested. [facility] has confirmed the use of plasma for this test. This has not been cleared or approved by the U.S. Food and Drug Administration. The FDA has determined that such clearance is not necessary. Performed By: #### CP, LIP, TROPI, CDP, HCG #### [facility] [address] [place] [address] Electromedical Service Engineer: Caden Brown MD COMP METABOLIC PROF Collected: 11/16/19 1:09 AM Status: F Source: [facility] TYPE CODE TESTS RESULT OUT OF RANGE REFERENCE UNITS LAB NA(LOINC) NA (Sodium) 138 135-144 mmol/L LAB K(LOINC) K (Potassium) 3.2 Low 3.7-5.3 mmol/L LAB CL(LOINC) Chloride 101 98-107 mmol/L LAB HCO(LOINC) CO2 21 20-31 mmol/L LAB GAP(LOINC) Anion Gap 16 9-17 mmol/L LAB GLU(LOINC) Glucose 94 70-99 mg/dL LAB BUN(LOINC) BUN (Urea N) 15 6-20 mg/dL LAB CRE(LOINC) Creatinine 0.7 0.5-0.9 mg/dL LAB EGFR(LOINC) eGFR >90 >60 mL/min/1. 73m2 Result Comment: These results are not intended [...] following therapy that affects renal tubular secretion. LAB BUNCRE(LOINC) BUN/CRE Ratio 21 High 9-20 LAB CA(LOINC) Calcium 9.7 8.6-10.4 mg/dL LAB TP(LOINC) Protein, Total 7.4 6.4-8.3 g/dL LAB ALB(LOINC) Albumin 4.5 3.5-5.2 g/dL LAB TBIL(LOINC) Bilirubin, Total 1.3 High 0.3-1.2 mg/dL LAB ALP(LOINC) Alkaline Phos 80 35-104 U/L LAB ALT(LOINC) ALT 17 5-33 U/L LAB AST(LOINC) AST 19 <32 U/L Performed By: #### CP, LIP, TROPI, CDP, HCG #### [facility] [address] [place] [address] Electromedical Service Engineer: Caden Brown MD LIPASE Collected: 5 1:09 AM Status: F Source: [facility] TYPE CODE TESTS RESULT OUT OF RANGE REFERENCE UNITS LAB LIP(LOINC) Lipase 47 13-60 U/L Performed By: #### CP, LIP, TROPI, CDP, HCG #### [facility] [address] [place] [address] Electromedical Service Engineer: Caden Brown MD TROPONIN Collected: 11/16/2024 1:09 AM Status: F Source: [facility] TYPE CODE TESTS RESULT OUT OF RANGE REFERENCE UNITS LAB HSTROP(LOINC) Troponin, High Sens <6 0-14 ng/L Result Comment: High Sensiti vity Troponin values cannot be compared with other Troponin methodologies. Performed By: #### CP, LIP, TROPI, CDP, HCG #### [facility] [address] [place] [address] Electromedical Service Engineer: Caden Brown MD SURGICAL PATHOLOGY Collected: 4 10:48 AM Status: COMPLETED Source: [facility] TYPE CODE TESTS RESULT OUT OF RANGE REFERENCE UNITS LAB [id number] Surgical Pathology Result Comment: [facility] [address] [place] [address] Surgical Pathology Consultation Patient Name:CHARIS ALLEN:2000 (Age: 23)Gender:FTaken:4Reported:4Physician(s):Osbaldo-Catie DickDO ([phone])Copy To: Rec. #:[id number]: #[id number] Final Pathologic Diagnosis Right base of tongue, biopsy: Benign papillomatous neoplasm. Report Electronically Signed Out cjb/4Ceri Arguelles MD Interpretation performed at [facility], [address] [place] [address], License number: [id number]. Clinical History Lesion of tongue. Gross Description Received in formalin labeled TIFFANY, right base of tongue lesion is a Telfa pad with two travis-yellow rubbery soft tissue bits, 0.2 and 0.3 cm. The specimen is filtered and entirely submitted in a single cassette. (1, ns, [id number],m5) DM. dm/08/27/2024NSK Specimen(s) Received Right base of tongue Fee Codes(s): 1; 18947 URINE NURSING Collected: 08/27/2024 8 :10 AM Status: COMPLETED Source: [facility] TYPE CODE TESTS RESULT OUT OF RANGE REFERENCE UNITS LAB NUCG(LOINC) URINE NURSING Negative (qualifier value) NEG Performed By: #### [id number] ## ## [facility] ([id number]) [address] [place] [address] PROGRESS Observed: 07/25/2024 12:18 PM Status: COMPLETED Source: [facility] HNO ID: [id number] Author: ÁNGELA DELGADO DPM Service: ? Author [...] which included preparing to see the patient, [id number] patient care, completing clinical documentation, obtaining and/or reviewing separately obtained history, performing a medically appropriate examination, counseling and educating the patient/family/caregiver, ordering medications, tests and care coordination (not separately reported). Time did not include procedure time. I agree with the Chief Complaint, ROS, and Past Histories independently gathered by the clinical desktop support specialist and the remaining scribed note accurately describes my personal service to the patient. This document has been created with the use of voice recognition technology. It may contain inaccuracies, misspellings, inaccurate syntax or inappropriate word context that escaped review. Ángela Delgado DPM CNOV Observed: 07/25/2024 11:45 AM Status: COMPLETED Source: [facility] Office Visit (PODIAM) CHARIS ALLEN ([id number]) 4 F Date Time Provider Department 07/25/24 11:45 AM ÁNGELA DELGADO PODIAM During your visit today, we recorded the following information about you: Ángela Delgado DPM 07/25/2024 5:34 PM Signed Service Date: [...] which included preparing to see the patient, [id number] patient care, completing clinical documentation, obtaining and/or reviewing separately obtained history, performing a medically appropriate examination, counseling and educating the patient/family/caregiver, ordering medications, tests and care coordination (not separately reported). Time did not include procedure time. I agree with the Chief Complaint, ROS, and Past Histories independently gathered by the clinical desktop support specialist and the remaining scribed note accurately describes [...] CEDAR balls/sachet can be used in shoes. Allergies As of Date: 07/25/2024 Noted Allergy Reaction PERIACTIN (CYPROHEPTADINE) 08/02/2013 6 - Diarrhea 14 - Other: See Comments Comments: Passing out, turning white. DOXYCYCLINE 11/29/2021 14 - Other: See Comments Comments: dizziness PENICILLIN G SODIUM 11/29/2021 2 - Rash SEASONAL ALLERGIES 12/24/2009 Date Reviewed: 07/25/2024 Reviewed by: Ángela Delgado DPM - Fully Assessed Reason for Visit: Nail Check [763] Cmt: Pt following up on bilateral hallux nails post matrixectomy in december. PT relates that she was sick and forgot about coming in for her post op appts. Pt relates that she was using antifungal however she discontinued because she was not sure if she still needed to use them. Primary Visit Diagnosis:Onychomycosis [B35.1] Other Visit Diagnosis:Tinea pedis, unspecified laterality [B35.3] Prescriptions as of 07/25/2024 - clindamycin (CLEOCIN) 1 % external solution Apply to the affected area of face once daily. - methylphenidate HCl (CONCERTA ORAL) Take 18 mg by mouth once daily. - Sulfacetamide Sodium-Sulfur 10-5 % (w/w) lotn Apply to all acne-prone areas twice daily - adapalene (DIFFERIN) 0.1 % gel Apply to all acne-prone areas at bedtime. - pimecrolimus (ELIDEL) 1 % cream APPLY 2 TIMES DAILY TO FACIAL AREAS NEEDED FOR RASH/ITCHING Problem List As Of Date 07/25/2024 Noted Resolved Otitis Media with Effusion [H65.90] [...] with unres*01/11/2017 Tinnitus, right ear [H93.11] 09/15/2022 Other instructions from your clinician: FUNGAL NAIL TREATMENT Your nail condition is [...] CEDAR balls/sachet can be used in shoes. Disposition: Return if symptoms worsen or fail to improve. Follow-up and Disposition History for Encounter Date Provider Department Center 07/25/2024 [id number] DELGADO [facility] Encounter Status:Closed by ÁNGELA DELGADO on 07/25/24 CT NECK SOFT TISSUE W CONT Observed: 11/2023 9:14 AM Status: COMPLETED Source: [facility] CT NECK SOFT TISSUE W CONT EXAM: [...] by Mich Ty on 07/11/2024 8:38 AM ALLERGIES DATE TYPE / CODE NAME / CODE REACTION SEVERITY SOURCE 02/18/2025 Drug Allergy/416 860924(SNOM ED CT) oxycodone/[id number]( RXNORM) Palpitations Unknown [facility] 02/18/2025 Drug Allergy/416 518252(SNOM ED CT) azithromycin/[id number] 35(RXNORM) Unknown Reaction Unknown [facility] 08/20/2024 DRUG INGREDI~Env iron~NON-CB ORD/5229403 03(SNOMED CT) POLLEN EXTRACTS Other ( See Comments) Low [facility] 12/16/2021 DRUG INGREDI~NON -CBORD/4195 03553(SNOME D CT) DOXYCYCLINE Dizziness Low [facility] 12/16/2021 DRUG INGREDI~NON -CBORD/4195 74636(SNOME D CT) PENICILLIN G SODIUM Rash Low [facility] 11/29/2021 DRUG INGREDI/419 099950(SNOM ED CT) DOXYCYCLINE OTHER: SEE C [facility] 11/29/2021 DRUG INGREDI/419 234258(SNOM ED CT) PENICILLIN G SODIUM RASH [facility] 08/02/2013 DRUG INGREDI/419 544506(SNOM ED CT) CYPROHEPTADINE DIARRHEA High [facility] 12/24/2009 Environ/420 945426(SNOM ED CT) SEASONAL ALLERGIES [facility] 12/24/2009 DRUG~NON-CB ORD/7954423 03(SNOMED CT) LEVONORGESTREL-ETHINY L ESTRAD Other ( See Comments) [facility] ENCOUNTERS ADMIT/DISCHARGE ACCOUNT NUMBER ADMITTING ENCOUNTER CLASS LOCATION SOURCE 06/13/2025/06/13/20 [id number] Ambulatory Building:NOM S [facility] EPIC 06/10/2025/06/10/20 [id number] Ambulatory Building:NOM S [facility] EPIC 06/06/2025/06/06/20 [id number] Ambulatory Building:NOM [facility] EPIC 04/17/2025/04/17/20 [id number] Chris White [facility] 02/27/2025 [id number] Ambulatory Building: k [facility] 02/26/2025/02/28/20 [id number] DANIELE EDMOND Ambulatory Building:PF _LDRPRoom: 108Bed: 01 [facility] 02/22/2025/02/23/20 [id number] Ambulatory Building:[facility] 02/18/2025/02/19/20 [id number] Yaritza Bauer [facility] 01/11/2025/01/12/20 25 [id number] Emergency Building:WED Room: 05Bed: 05 [facility] 12/13/2024/12/14/19 25 [id number] Emergency Building:PF _EDRoom: 9Bed: 09 [facility] 11/30/2024/12/01/19 25 [id number] Emergency Building:WED Room: OTFBed: LEONORA [facility] 11/16/2024/11/16/19 25 [id number] Emergency Building:WED Room: 09Bed: [address] [place] [address] 11/04/2024/11/04/19 25 [id number] Ambulatory Buildin A [facility] 10/23/2024/10/23/19 25 [id number] Ambulatory Building:NOM S S[facility] OB [facility] EPIC 10/21/2024/10/21/19 25 [id number] [facility] 09/11/2024/09/11/20 24 [id number] Ambulatory Buildin A [facility] 09/10/2024/09/10/20 24 [id number] Ambulatory Buildin 08 [facility] 09/10/2024/09/10/20 24 [id number] Ambulatory Buildin 08 [facility] 08/27/2024/08/27/20 24 [id number] Inpatient Encounter Building:[facility] _F_[facility] 08/27/2024/08/27/20 24 [id number] Inpatient Encounter Building:[facility] _F_PERIOP [facility] 08/27/2024/08/27/20 24 [id number] MOLLY CHAVEZ Inpatient Encounter Building:PTH _F_PERIOPRoo m: POOLBed: [facility] 08/20/2024/08/20/20 24 [id number] Inpatient Encounter Building:PTH _EMETRPAT [facility] 08/13/2024/08/13/20 24 [id number] Ambulatory Building:NOM [facility] EPIC 08/07/2024/08/07/20 24 [id number] Ambulatory Buildin 08 [facility] 07/25/2024/07/25/20 24 [id number] [facility] 07/17/2024/07/17/20 24 [id number] Ambulatory Building:NOM S RUDY [facility] EPIC 07/15/2024/07/15/20 24 [id number] Ambulatory Buildin 08 [facility] 07/10/2024/07/10/20 24 [id number] Ambulatory Building:PTH _WWHCT [facility] PAYERS ENCOUNTER GUARANTOR PAYER SUBSCRIBER SOURCE 06/13/2025 CHARIS VERAB: [id number] [address] [place] [id number]: (HP) Primary Insurance:[facility] MEDICAID [place] Number: [id number] Date:2022-11-09 CHARIS VERAB: [id number] [id number] [facility] EPIC 06/10/2025 CHARIS VERAB: [id number] [address] [place] [phone]: (HP) Primary Insurance:[employer] [place] Number: [id number] Date:2022-11-09 CHARIS VERAB: [id number] [id number] [facility] EPIC 06/06/2025 CHARIS ALLENDOB: [id number] [address]Ppk: (HP) Primary Insurance:[employer] MEDICAID OHIOPolicy Number: [id number] Date:2022-11-09 CHARIS ALLENDOB: [id number], [place] [address] [facility] EPIC 04/17/2025 Charis Herring [address] [place] [address]Yle: (HP) Primary Insurance:Self PayPolicy Number: Effective Date:2025-04-17 [facility]/27/2025 CHARIS DAMION FERNANDEZNOMANB: [place] [address]Dud: (HP) Primary Insurance:[employer] ADVANTAGEPolicy Number: [id number] Date:2021-03-092022-11-08 CHARIS JIMENESDAILYDOB: [id number] [place] [address]Szy: (WP) [facility] 02/27/2025 Secondary Insurance:[facility] MEDICAIDPolicy Number: [id number] Date:2022-11-09 CHARIS DAMION FERNANDEZNOMANB: [id number] [place] [address]Opf: (WP) [facility] 02/26/2025 CHARIS DAMION JODYB: [place] [address]Prr: (HP) Primary Insurance:[facility] MEDICAIDPolicy Number: [id number] Date:2022-11-09 CHARIS DAMION FERNANDEZNOMANB: [id number] [place] [address]Qwh: (WP) [facility] 02/22/2025 CHARIS VERAB: [id number] [address] [address]Zgq: (HP) Primary Insurance:[facility] MEDICAIDPolicy Number: [id number] Date:0757-06-85[address], [place] [address]NO: CHARIS JODYB: [id number] [place], [place] [address]Qao: (HP) [facility] 02/18/2025 Charis Baltazar AllenPO [address] [place] [address]Blr: (HP) [facility] MedicaidPolicy Number: [id number] Date:2450-12-72TE [address] [address]FJ: Charis Ledesma TiffanyDOB: 3458-91-83PWWCX [address] [address]Qnl: (HP) [facility] 02/18/2025 Secondary Insurance:Self PayPolicy Number: Effective Date:2025-02-18 [facility] 01/11/2025 CHARIS YUDYACHDOB: [id number] [address] [address]Fwt: (HP) Primary Insurance:[facility] MEDICAIDPolicy Number: [id number] Date:9497-17-72QG [address] [place] [address]GK: CHARIS YUDYACHDOB: [id number] [place], [place] [address]Hgg: (HP) [facility] 12/13/2024 CHARIS ALLENDOB: [place] [address]Wlo: (HP) Primary Insurance:[facility] MEDICAIDPolicy Number: [id number] Date:2022-11-09 CHARIS ALLENDOB: [id number] [place] [address]Ghe: (WP) [facility] 11/30/2024 CHARISJAMAR JIMENESACHDOB: 8569-38-00PD [address] [address]Ais: (HP) Primary Insurance:[facility] MEDICAIDPolicy Number: [id number] Date:0576-92-46RJ [address] [place] [address]QS: CHARIS FERNANDEZLYNDSEYACHDOB: 0842-93-44DKS83 [place], [place] [address]Qra: (HP) [facility] 11/16/2024 CHARIS YUDYACHDOB: 9440-14-84BM [address] [address]Nzq: (HP) Primary Insurance:[facility] MEDICAIDPolicy Number: [id number] Date:4285-51-64VJ [address] [address]ZB: CHARIS FERNANDEZLYNDSEYACHDOB: 6582-54-18GGG40 [place], [place] [address]Arn: (HP) [facility] 11/04/2024 CHARIS ALLENDOB: [place] [address]Hyo: (HP) Primary Insurance:[facility] MEDICAIDPolicy Number: [id number] Date:2022-11-09 CHARIS ALLENDOB: [id number] [place] [address]Blh: () [facility] 10/23/2024 CHARIS ALLENDOB: 9401-57-43BG [facility] [address], [place] [address]Aib: (HP) Primary Insurance:[employer] MEDICAID [place]OPolicy Number: [id number] Date:2022-11-09 CHARIS ALLENDOB: 4003-49-75DZRCT [facility] [address], [place] [address] [facility] 10/21/2024 CHARIS VERAB: [id number] [facility] [address], [place] [address]Guh: (HP) Primary Insurance:[facility] MEDICAID [place] Number: [id number] Date:2022-11-09 CHARIS VERAB: 5555-17-39UMZQN [address] [place] [address] [facility] PSYCHIATRIC 09/11/2024 CHARIS VERAB: [place] [address]Eks: (HP) Primary Insurance:[facility] MEDICAIDPolicy Number: [id number] Date:2022-11-09 CHARIS VERAB: [id number] [place] [address]Ctk: (WP) [facility] 09/10/2024 CHARIS VERAB: [place] [address]Dds: (HP) Primary Insurance:[facility] MEDICAIDPolicy Number: [id number] Date:2022-11-09 CHARIS VERAB: [id number] [place] [address]Lxu: (WP) [facility] 09/10/2024 CHARIS VERAB: [place] [address]Nym: (HP) Primary Insurance:[facility] MEDICAIDPolicy Number: [id number] Date:2022-11-09 CHARIS VERAB: [id number] [place] [address]Euk: (WP) [facility] 08/27/2024 CHARIS VERAB: [place] [address]Drp: (HP) Primary Insurance:[facility] MEDICAIDPolicy Number: [id number] Date:2022-11-09 [facility] CENTERLYNDSEYACHDOB: [id number] [place] [address]Sfv: (WP) [facility] 08/27/2024 [facility]: [place] [address]Wwk: (HP) Primary Insurance:[facility] MEDICAIDPolicy Number: [id number] Date:2022-11-09 [facility]ALLYNDSEYACHDOB: [id number] [place] [address]Ska: (WP) [facility] 08/27/2024 [facility] CENTERLYNDSEYACHDOB: [place] [address]Rxe: (HP) Primary Insurance:[facility] MEDICAIDPolicy Number: [id number] Date:2022-11-09 [facility] CENTERLYNDSEYACHDOB: [id number] [place] [address]Lzd: (WP) [facility] 08/20/2024 [facility] CENTERLYNDSEYACHDOB: [place] [address]Lxk: (HP) Primary Insurance:[employer] [place] MEDICAIDPolicy Number: [id number] Date:2022-11-09 [facility]PITALKIRITDOB: [id number] [place] [address]Rwc: (WP) [facility] 08/13/2024 CHARIS VERAB: 6413-21-43LB [address] [place] [address]Slm: (HP) Primary Insurance:[employer] MEDICAID [place]OPolicy Number: [id number] Date:2022-11-09 CHARIS VERAB: [id number] [address] [address] [facility] EPIC 08/07/2024 CHARIS VERAB: [place] [address]Roa: (HP) Primary Insurance:[employer] [place] MEDICAIDPolicy Number: [id number] Date:2022-11-09 CHARIS VERAB: [id number] [address] [facility] [place] [address]Obi: (WP) [facility] 07/25/2024 Primary Insurance:[employer] MEDICAID OF OHIOPolicy Number: [id number] Date:5845-53-95Aqlf Name:Dee Dee CHARIS VERAB: [id number] [place] [address] [facility] 07/17/2024 CHARIS VERAB: 9531-48-09JI [address] [address]Plm: (HP) Primary Insurance:[employer] MEDICAID [place]icy Number: [id number] Date:2022-11-09 CHARIS VERAB: [id number] [address] [facility] PSYCHIATRIC 07/15/2024 CHARIS VERAB: [place] [address]Vwe: () Primary Insurance:[facility] MEDICAIDPolicy Number: [id number] Date:2022-11-09 CHARIS LORENZO: [id number] [place] [address]Oia: () [facility] 07/10/2024 CHARIS LORENZO: [place] [address]Fhd: () Primary Insurance:[facility] MEDICAIDPolicy Number: [id number] Date:2022-11-09 CHARIS LORENZO: [id number] [place] [address]Lni: () [facility]
--- OUTSIDE RECORDS SUMMARY | 2025-07-05 09:55 | XMS_ITS | Encounter Summary ---
Author Organization [facility] [employer] s tem Address [id number] [address] [place] [address] Care Team Providers Care Clipper Counters Name Role Phone Alanis Sky DO, George R Primary Care Provider + Encounter Details Date Type Department Care Team ([facility] st Contact Info) Description 08/26/2024 Telephone [facility] - ENT [address] [facility] [place] [address] Ashley Jennings-Yissel, DO [address] [facility] [address] [place] [address] Social History Tobacco Use Types Packs/Day Years Used Date Smoking Tobacco: Never Smokeless Tobacco: Never Alcohol Use Standard Drinks/Week Comments Yes 0 (1 standard drink = 0.6 oz pur e alcohol) q 1x per month PHQ-2 Answer Date Recorded Total Score 0 06/19/2023 Childcare Answer Date Recorded Childcare Unknown 03/14/2019 Employment Answer Date Recorded Employment Unknown 03/14/2019 Hunger Screening Answer Date Recorded Within the past 12 months we worried whether our food would run out before we got money to buy more. Never True 08/20/2024 Within the past 12 months th e food we bought just didn't last and we didn't have money to get more. Never True 08/20/2024 Purpose - Life Answer Date Recorded Purpose and direction in life Unknown Comments No Sex and Gender Information Value Date Recorded Sex Assigned at Female 12/13/2021 3:03 PM EST Legal Sex Female 7:57 AM EDT Gender Identity Female 12/13/2021 3:03 PM EST Sexual Orientation Not on file documented as of this encounter Miscellaneous Notes * Telephone Encounter - Doris Acosta - 08/26/2024 10:51 AM EST Called and spoke to pt regarding post op appt reschedule. Pt will call back on 09/09/24 once she gets her September work schedule to determine when she can come in for the post op appt documented in this encounter Plan of Treatment Upcoming Encounters Date Type Department Care Team (Late st Contact Info) Description 09/29/2025 4:00 PM EST Telemedicine [facility], [facility] Department of [facility] [address] [place] [phone] Bari Caro MD [address] [facility] [address] [place] [address] documented as of this encounter Goals Goal Patient Goal Type Associated Problems Recent Progress Patient-Stated? Author Home General Yes Cherrie Ponce LSW Note: Evaluation of progress towards goal: Safe dc transition from hospital to home. documented as of this encounter Visit Diagnoses Not on filedocumented in this encounter Additional Health Concerns Assessment Noted Time PHQ-9 Depression Total Score: 0 06/19/20 23 12:12 PM EDT documented as of this encounter Care Teams Clipper Counters Relationship Specialty Start Date End Date Pete Thapa Jr., DO [address] [place] [address] PCP - General Family Medicine 02/26/25 documented as of this encounter
--- OUTSIDE RECORDS SUMMARY | 2025-07-05 09:55 | XMS_ITS | Encounter Summary ---
Author Organization [facility] Address [facility] [id number] [address] [place] [address] Care Team Providers Care Side Stapler Name Role Phone Alanis Sky DO, George R Primary Care Provider + Encounter Details Date Type Department Care Team (Late st Contact Info) Description 12/28/2023 [facility] [address] [place] [address] Sadia Rai, PA-C [address] [facility] [address] [place] [address] Social History Tobacco Use Types Packs/Day Years Used Date Smoking Tobacco: Never Smokeless Tobacco: Never Alcohol Use Standard Drinks/Week Comments No 0 (1 standard drink = 0.6 oz pur e alcohol) PHQ-2 Answer Date Recorded Total Score 0 06/19/2023 Childcare Answer Date Recorded Childcare Unknown 03/14/2019 Employment Answer Date Recorded Employment Unknown 03/14/2019 Hunger Screening Answer Date Recorded Within the past 12 months we worried whether our food would run out before we got money to buy more. Never True 09/23/2023 Within the past 12 months th e food we bought just didn't last and we didn't have money to get more. Never True 09/23/2023 Purpose - Life Answer Date Recorded Purpose and direction in life Unknown Comments No Sex and Gender Information Value Date Recorded Sex Assigned at Female 12/13/2021 3:03 PM EST Legal Sex Female 7:57 AM EDT Gender Identity Female 12/13/2021 3:03 PM EST Sexual Orientation Not on file documented as of this encounter Miscellaneous Notes * Telephone Encounter - Doris Acosta - 12/28/2023 4:18 PM EDT Called and lm to call to r/s appt on 02/05 documented in this encounter Plan of Treatment Upcoming Encounters Date Type Department Care Team (Late st Contact Info) Description 09/29/2025 4:00 PM EST Telemedicine [facility], [facility] Department of [facility] [address] [place] [phone] Bari Caro MD [address] [facility] [place] [address] documented as of this encounter Goals Goal [...] documented as of this encounter Care Teams Side Stapler Relationship Specialty Start Date End Date Pete Thapa Jr., DO [address] [place] [address] PCP - General Family Medicine 02/26/25 documented as of this encounter
--- OUTSIDE RECORDS SUMMARY | 2025-07-05 09:55 | XMS_ITS | Encounter Summary ---
Author Organization [employer] Address [facility]-[id number] [address] [place] [address] Care Team Providers Care Woodwind Instrument Repairer Name Role Phone Alanis Sky DO, George R Primary Care Provider + Encounter Details Date Type Department Care Team (Late st Contact Info) Description 02/27/2025 Orders Only [facility] External [facility] [place] [address] Transcribe, Orders Support User Pain (Primary Dx) Social History Tobacco Use Types Packs/Day Years Used Date Smoking Tobacco: Never Smokeless Tobacco: Never Alcohol Use Standard Drinks/Week Comments Yes 0 (1 standard drink = 0.6 oz pur e alcohol) q 1x per month [facility] Utilities Answer Date Recorded In the past 12 months has th e electric, gas, oil, or water company threatened to shut off services in your home? No 02/27/2025 PHQ-2 Answer Date Recorded Total Score 0 06/19/2023 PRAPARE - Transportation Answer Date Re corded In the past 12 months, has l ack of transportation kept you from medical appointments or from getting medications? No 02/07 In the past 12 months, has l ack of transportation kept you from meetings, work, or from getting things needed for daily living? No 02/27/2025 Housing Instability Answer Date Recorde d Are you worried or concerned that in the next two months you may not have stable housing that you own, rent or stay in as a part of a household? No 02/27/2025 Childcare Answer Date Recorded Childcare Unknown 03/14/2019 Employment Answer Date Recorded Employment Unknown 03/14/2019 Hunger Screening Answer Date Recorded Within the past 12 months we worried whether our food would run out before we got money to buy more. Never True 02/27/2025 Within the past 12 months th e food we bought just didn't last and we didn't have money to get more. Never True 02/27/2025 Purpose - Life Answer Date Recorded Purpose and direction in life Unknown Comments No Sex and Gender Information Value Date Recorded Sex Assigned at Female 12/13/2021 3:03 PM EST Legal Sex Female 7:57 AM EDT Gender Identity Female 12/13/2021 3:03 PM EST Sexual Orientation Not on file documented as of this encounter Functional Status documented as of this encounter Plan of Treatment Upcoming Encounters Date Type Department Care Team (Late st Contact Info) Description 09/29/2025 4:00 PM EST Telemedicine [facility], [facility] Department of [facility] [address] [place] [address] Bari Caro MD [address], [facility] [address] [place] [address] documented as of this encounter Goals Goal Patient Goal Type Associated Problems Recent Progress Patient-Stated? Author Home General Yes Cherrie Ponce LSW Note: Evaluation of progress towards goal: Safe dc transition from hospital to home. documented as of this encounter Results * Ultrasound less than 14 weeks single (02/18/2025 8:10 PM EDT) us Scanning Provider External IMG US ORDERABLES Fin al Result documented in this encounter Visit Diagnoses Diagnosis Pain- Primary Generalized pain documented in this encounter Additional Health Concerns Assessment Noted Time PHQ-9 Depression Total Score: 0 06/19/20 23 12:12 PM EDT documented as of this encounter Care Teams Woodwind Instrument Repairer Relationship Specialty Start Date End Date Pete Thapa Jr., DO [address] [place] [address] PCP - General Family Medicine 02/26/25 documented as of this encounter
--- OUTSIDE RECORDS SUMMARY | 2025-07-05 09:55 | XMS_ITS | Encounter Summary ---
Author Organization [facility] Address [address] [place] [address] Care Team Providers Care Airplane Patroller Name Role Phone Pete Thapa DO Primary Care Provider [phone] Encounter Details Date Type Department Care Team (Late st Contact Info) Description 11/08/2023 Orders Only [facility] [address] [facility] [address] [place] [address] Jona Henley MD [address] [facility] [address] [place] [address] Social History Tobacco Use Types Packs/Day Years Used Date Smoking Tobacco: Never Smokeless Tobacco: Never Alcohol Use Standard Drinks/Week Comments Not Currently 0 (1 standard drink = 0.6 oz pur e alcohol) caffeine: none Humiliation, Afraid, Rape, and Kick questionnair e Answer Date Recorded Within the last year, have y ou been afraid of your partner or ex-partner? Patient declined 11/12/2023 Within the last year, have y ou been humiliated or emotionally abused in other ways by your partner or ex-partner? Patient declined 11/12/2023 Within the last year, have y ou been kicked, hit, slapped, or otherwise physically hurt by your partner or ex-partner? Patient declined 11/12/2023 Within the last year, have y ou been raped or forced to have any kind of sexual activity by your partner or ex-partner? Patient declined 11/12/2023 Social Connection and Isolation Panel [NHANES] A nswer Date Recorded In a typical week, how many times do you talk on the phone with family, friends, or neighbors? Patient declined 11/12/2023 How often do you get togethe r with friends or relatives? Patient declined 11/12/2023 Attends Taoism Services Not on file 11/12 Do you belong to any clubs o r organizations such as roman catholic groups, unions, fraternal or athletic groups, or school groups? Patient declined 11/12/2023 How often do you attend meet ings of the clubs or organizations you belong to? Patient declined 11/12/2023 Are you , , di vorced, , never , or living with a partner? Patient declined 11/12/2023 Overall Financial Resource Strain (CARDIA) Answe r Date Recorded How hard is it for you to pa y for the very basics like food, housing, medical care, and heating? Patient declined 11/12/2023 PHQ-2 Answer Date Recorded Patient Health Questionnaire-2 Score 0 06/29/2023 Exercise Vital Sign Answer Date Recorde d On average, how many days pe r week do you engage in moderate to strenuous exercise (like a brisk walk)? Patient declined On average, how many minutes do you engage in exercise at this level? Patient declined 11/12/2023 Hunger Vital Sign Answer Date Recorded Within the past 12 months, y ou worried that your food would run out before you got the money to buy more. Patient declined Within the past 12 months, t he food you bought just didn't last and you didn't have money to get more. Patient declined 01/2024 PRAPARE - Transportation Answer Date Re corded In the past 12 months, has l ack of transportation kept you from medical appointments or from getting medications? Patient declined 11/12/2023 In the past 12 months, has l ack of transportation kept you from meetings, work, or from getting things needed for daily living? Patient declined 11/12/2023 [place] Depression Scale Answer Date Recorded [place] Depression Scale Total 0 08/10/2023 The thought of harming myself has occurred to me . 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 on file Not on file Not on file documented as of this encounter Plan of Treatment Upcoming Encounters Date Type Department Care Team (Late st Contact Info) Description 07/15/2025 8:45 AM EDT Office Visit BRANDEN Pena [facility]ADI [address] [place] [address] Jona Henley MD [address] [place] [address] 08/14/2025 3:00 PM EST Office Visit BRANDEN Socarson APONTE [address] [place] [address] Jona Henley MD [address] [place] [address] documented as of this encounter Procedures Procedure Name Priority Date/Time Associated Diagnosis Comments ULTRASOUND : OBSTETRICS Routine 07/31/2023 2:47 PM EDT documented in this encounter Results * ULTRASOUND : OBSTETRICS (07/31/2023 2:47 PM EDT) Anatomical Region Laterality Modality Radiographic Tena ging us Jona Henley MD IMG XR PROCEDURES Final Result documented in this encounter Visit Diagnoses Not on filedocumented in this encounter Care Teams Airplane Patroller Relationship Specialty Start Date End Date Pete Thapa DO [address] [place] [address] PCP - General Family Medicine 02/14/23 documented as of this encounter
--- OUTSIDE RECORDS SUMMARY | 2025-07-05 09:55 | XMS_ITS | Encounter Summary ---
Author Organization [facility] [employer] [facility] tem Address [facility] [id number] [address] [place] [address] Care Team Providers Care Vascular Radiologist Name Role Phone Alanis Sky DO, George R Primary Care Provider + Reason for Visit * Reason Onset Date Comments Regarding surgery w/Dr. Verde on 06/04 Encounter Details Date Type Department Care Team ([facility] Contact Info) Description 05/24/2024 Telephone [facility] - ENT [address] [place] [address], [address] [place] [address] Clifton Verde MD [address] [place] [address] [address] [place] [address] Regarding surgery w/Dr. Verde on 06/04 Social History Tobacco Use Types Packs/Day Years [...] got money to buy more. Never True 05/21/2024 Within the past 12 months th e food we bought just didn't last and we didn't have money to get more. Never True 05/21/2024 Purpose - Life Answer Date Recorded Purpose and direction in life Unknown Comments No Sex and Gender Information Value Date Recorded Sex Assigned at Female 12/13/2021 3:03 PM EST Legal Sex Female 7:57 AM EDT Gender Identity Female 12/13/2021 3:03 PM EST Sexual Orientation Not on file documented as of this encounter Miscellaneous Notes * Telephone Encounter - Eva James - 05/24/2024 3:17 PM EDT Patient called 05/24. Patient is calling about her surgery with Dr. Verde on 06/04. Patient is wanting to do inpatient surgery, she would like to stay over night, pt concerned if there is complications, she [place] away. Please advise patient. * Telephone Encounter - Diana Sanchez CNA - 05/24/2024 3:17 PM EDT Please advise * Telephone Encounter - Clifton Verde MD - 05/24/2024 3:17 PM EDT Insurance won't allow that. documented in this encounter Plan of Treatment Upcoming Encounters Date Type Department Care Team (Late st Contact Info) Description 09/29/2025 4:00 PM EST Telemedicine [facility], [facility] Department of [facility] [address] [place] [address] Bari Caro MD [address] [facility] [place] [address] documented as of this encounter Goals Goal [...] documented as of this encounter Care Teams Vascular Radiologist Relationship Specialty Start Date End Date Pete Thapa Jr., [address] [place] [address] PCP - General Family Medicine 02/26/25 documented as of this encounter
--- OUTSIDE RECORDS SUMMARY | 2025-07-05 09:55 | XMS_ITS | Encounter Summary ---
Author Organization [facility] Address [facility] [place] [address] Care Team Providers Care Clinical Data Coordinator Name Role Phone Kerry Butler RD Unavailable Jona Henley MD Unavailable [phone] Source Comments In the event this information is protected by the Federal Confidentiality of Alcohol and Drug AbusePatient Records regulations: The Federal rules restrict any use of the information to criminally investigate or prosecute any alcohol or drug abuse patient.[facility] Encounter Details Date Type Department Care Team (Late st Contact Info) Description 12/27/2021 [place] [address] Provider, Ccf Questionnaire Submission Social History Tobacco Use Types Packs/Day Years Used Date Smoking Tobacco: Never Comments:no one in household smokes Alcohol Use Standard Drinks/Week Comments No 0 (1 standard drink = 0.6 oz pur e alcohol) PHQ-2 Answer Date Recorded PHQ-2 score 0 12/22/2021 Area Deprivation Index Answer Date Yannick rded National Score (1-100), lower number is lower ri sk Not on file 09/14/2020 State Score (1-10), lower number is lower risk N ot on file 09/14/2020 Data from: https://www.neighborhoodatlas.[facility].edu/. Last address used for calculation Not on file 09/14/2020 Comments No Sex and Gender Information Value Date Recorded Sex Assigned at Not on file Legal Sex Female 8:28 AM EST Gender Identity Not on file Sexual Orientation Not on file COVID-19 Exposure Response Date Recorded In the last 10 days, have yo u been in contact with someone who was confirmed or suspected to have Coronavirus/COVID-19? No / Unsure 12/30/2021 7:49 AM EDT documented as of this encounter Functional Status * Are you deaf or do you have serious difficulty hearing? Answer Date of Assessment Author No 08/21/2015 10:22 AM Cas Hernandez RN * Are you blind or do you have serious difficulty seeing, even when wearing glasses? Answer Date of Assessment Author No 08/21/2015 10:22 AM Cas Hernandez RN * Do you have serious difficulty walking or climbing stairs? Answer Date of Assessment Author No 08/21/2015 10:22 AM Cas Hernandez RN * Do you have difficulty dressing or bathing? Answer Date of Assessment Author No 08/21/2015 10:22 AM Cas Hernandez RN documented as of this encounter Mental Status * Because of a physical, mental, or emotional condition, do you have serious difficulty concentrating, remembering, or making decisions? Answer Entry Date Author No 08/21/2015 10:22 AM Cas Hernandez RN documented in this encounter Plan of Treatment Not on file documented as of this encounter Visit Diagnoses Not on filedocumented in this encounter Care Teams Clinical Data Coordinator Relationship Specialty Start Date End Date Crtalic-Kerry Coates RD [address] [address] Nutrition 04/04/23 Jona Henley MD [address] [place] [address] Referring Lead Programmer 06/11/25 documented as of this encounter
--- OUTSIDE RECORDS SUMMARY | 2025-07-05 09:55 | XMS_ITS | Encounter Summary ---
Author Organization [facility] Address [facility] [place] [address] Care Team Providers Care Integrated Logistics Operations Manager Name Role Phone Luek Kerry COONEY Unavailable Jona Henley MD Unavailable [phone] Source Comments In the event this information is protected by the Federal Confidentiality of Alcohol and Drug AbusePatient Records regulations: The Federal rules restrict any use of the information to criminally investigate or prosecute any alcohol or drug abuse patient.[facility] Encounter Details Date Type Department Care Team (Late st Contact Info) Description 01/23/2022 Get Medical Advice Dermatology [address] [place] [address] Mary Ann Ma MD [address] [facility] [address] [place] [address] Ance Social History Tobacco Use Types Packs/Day Years Used Date Smoking Tobacco: Never Smokeless Tobacco: Never Comments:no one in household smokes [...] N ot on file 09/14/2020 Data from: https://www.neighborhoodatlas.medicine.[facility]/. Last address used for calculation Not on [...] suspected to have Coronavirus/COVID-19? No / Unsure 01/26/2022 3:22 PM EDT documented as of this encounter Functional [...] on filedocumented in this encounter Care Teams Integrated Logistics Operations Manager Relationship Specialty Start Date End Date Crtmartina-Kerry Coates RD [address] [place] [address] Nutrition 04/04/23 Jona Henley MD [address] [place] [address] Referring Life Trainer 06/11/25 documented as of this encounter
--- OUTSIDE RECORDS SUMMARY | 2025-07-05 09:55 | XMS_ITS | Encounter Summary ---
Author Organization [facility] Address [address] [place] [address] Care Team Providers Care Resin Remover Name Role Phone Pete Thapa DO Primary Care Provider [phone] Encounter Details Date Type Department Care Team (Late st Contact Info) Description 08/18/2023 Abstract NOMEfe Pena [facility]I [address] [facility] [address] [place] [address] Jona Henley MD [address] [facility] [address] [place] [address] Social History Tobacco Use Types Packs/Day Years Used Date Smoking Tobacco: Never Smokeless Tobacco: Never Alcohol Use Standard Drinks/Week Comments Not Currently 0 (1 standard drink = 0.6 oz pur e alcohol) caffeine: none PHQ-2 Answer Date Recorded Patient Health Questionnaire-2 Score 0 06/29/2023 [place] Depression Scale Answer Date Recorded [place] Depression Scale Total 0 08/10/2023 The thought [...] file Not on file Not on file COVID-19 Exposure Response Date Recorded In the last 10 days, have yo u been in contact with someone who was confirmed or suspected to have Coronavirus/COVID-19? No / Unsure 08/21/2023 11:04 AM EST documented as of this encounter Plan of Treatment Upcoming Encounters Date Type Department Care Team (Late st Contact Info) Description 07/15/2025 8:45 AM EDT Office Visit BRANDEN Pena FADI [address] [place] [address] Jona Henley MD [address] [place] [address] 08/14/2025 3:00 PM EST Office Visit BRANDEN Pena FADI [address] [place] [address] Jona Henley MD [address] [place] [address] documented as of this encounter Visit Diagnoses Not on filedocumented in this encounter Care Teams Resin Remover Relationship Specialty Start Date End Date Pete Thapa DO [address] [place] [address] PCP - General Family Medicine 02/14/23 documented as of this encounter
--- OUTSIDE RECORDS SUMMARY | 2025-07-05 09:55 | XMS_ITS | Encounter Summary ---
Author Organization [facility] Address [facility] [place] [address] Care Team Providers Care Brine Room Laborer Name Role Phone CristobalTanishaJaxon Kerry COONEY Unavailable Jona Henley MD Unavailable [phone] Source Comments In the event this information is protected by the Federal Confidentiality of Alcohol and Drug AbusePatient Records regulations: The Federal rules restrict any use of the information to criminally investigate or prosecute any alcohol or drug abuse patient.[facility] Reason for Visit * Reason Comments Refill Request Encounter Details Date Type Department Care Team (Late st Contact Info) Description 04/28/2025 Refill Dermatology [address] [place] [address] Mary Ann Ma MD [address] [place] [address] Refill Request Social History Tobacco Use Types Packs/Day Years Used Date Smoking Tobacco: Never Smokeless Tobacco: Never Comments:no one in household smokes Alcohol Use Standard Drinks/Week Comments No 0 (1 standard drink = 0.6 oz pur e alcohol) PHQ-2 Answer Date Recorded PHQ-2 score 0 07/23/2024 Area Deprivation Index Answer Date Yannick rded National Score (1-100), lower number is lower ri sk 82 08/16/2023 State Score (1-10), lower number is lower risk 7 08/16/2023 Data from: https://www.neighborhoodatlas.[facility]/. Last address used for calculation [address] 08/16/2023 Comments No Sex and Gender Information Value Date Recorded Sex Assigned at Not on file Legal Sex Female 8:28 AM EST Gender Identity Not on file Sexual Orientation Not on file documented as [...] Cas Hernandez RN documented in this encounter Miscellaneous Notes * Telephone Encounter - Lata Rider OCCA - 04/28/2025 7:08 AM EDT Patient phones requesting refills as follows: BERENICE:08/16/23 FOV: 05/01/25 Requested Prescriptions Pending Prescriptions Disp Refills clindamycin (CLEOCIN) 1 % external solution [Pharmacy Med Name: CLINDAMYCIN PH 1% SOLUTION] 60 mL 0 Sig: APPLY TO AFFECTED AREAS ON FACE ONCE EVERYDAY Please review and advise. RONALD Montenegro documented in this encounter Plan of Treatment Not on file documented as of this encounter Visit Diagnoses Diagnosis Acne vulgaris Other acne documented in this encounter Care Teams Brine Room Laborer Relationship Specialty Start Date End Date Crtalic-Kerry Coates RD [address] [address] Nutrition 04/04/23 Jona Henley MD [address] [phone] Referring Retirement Assistant 06/11/25 documented as of this encounter
--- OUTSIDE RECORDS SUMMARY | 2025-07-05 09:55 | XMS_ITS | Encounter Summary ---
Author Organization [facility] [employer] Sys [employer] Address [facility]-[id number] [address] [place] [address] Care Team Providers Care Health And Human Performance Professor Name Role Phone Alanis Sky DO, George R Primary Care Provider + Reason for Visit * Reason Onset Date Comments Med Refill 08/12/2024 Encounter Details Date Type Department Care Team (Late st Contact Info) Description 08/12/2024 Refill [facility] [address] [place] [address] Sadia Rai, PA-C [address] [address] Otomycosis- right ear Social History Tobacco Use Types Packs/Day Years [...] EST Telemedicine [facility], A Department of [facility] [address] [place] [address] Bari Caro MD [address] [place] [address] documented as of this encounter Goals Goal Patient Goal Type Associated Problems Recent Progress Patient-Stated? Author Home General Yes Cherrie Ponce LSW Note: Evaluation of progress towards goal: Safe dc transition from hospital to home. documented as of this encounter Visit Diagnoses Diagnosis Otomycosis- right ear Other specified dermatomycoses documented in this encounter Additional Health Concerns Assessment Noted Time PHQ-9 Depression Total Score: 0 06/19/20 23 12:12 PM EDT documented as of this encounter Care Teams Health And Human Performance Professor Relationship Specialty Start Date End Date Pete Thapa Jr., DO [address] [facility] [address] [place] [address] PCP - General Family Medicine 02/26/25 documented as of this encounter
--- OUTSIDE RECORDS SUMMARY | 2025-07-05 09:55 | XMS_ITS | Encounter Summary ---
Author Organization [facility] Address [facility] [place] [address] Care Team Providers Care Air Carrier Inspector Name Role Phone Luke Kerry COONEY Unavailable Jona [place]ley MD Unavailable [phone] Source Comments In the event this information is protected by the Federal Confidentiality of Alcohol and Drug AbusePatient Records regulations: The Federal rules restrict any use of the information to criminally investigate or prosecute any alcohol or drug abuse patient.[facility] Encounter Details Date Type Department Care Team (Late st Contact Info) Description 01/23/2022 Get Medical Advice Dermatology [address] [place] [address] Mary Ann Ma MD [address] [facility] [place] [address] Ance Social History Tobacco Use [...] N ot on file 09/14/2020 Data from: https://www.neighborhoodatlas.medicine.[facility]/. Last address used for calculation Not on [...] on filedocumented in this encounter Care Teams Air Carrier Inspector Relationship Specialty Start Date End Date Crtmartina-Kerry Coates RD [address] [place] [address] Nutrition 04/04/23 Jona Henley MD [address] [place] [address] Referring Scorer Single 06/11/25 documented as of this encounter
--- OUTSIDE RECORDS SUMMARY | 2025-07-05 09:55 | XMS_ITS | Encounter Summary ---
Author Organization [employer] Address [facility]-[id number] [address] [place] [address] Care Team Providers Care Stumper Feller Name Role Phone Alanis Sky DO, George R Primary Care Provider + Encounter Details Date Type Department Care Team (Late st Contact Info) Description 07/15/2024 Telephone [facility] [address] [place] [address] Juan Camacho Social History Tobacco Use Types Packs/Day Years [...] encounter Miscellaneous Notes * Telephone Encounter - Juan Camacho - 07/15/2024 4:13 PM EDT Patient is asking if a nurse can return her call in regards to the surgery that she had last year. Wondering about patient moving around too much, will headaches start to come back? This is a concernthat patient is having but want to make sure it does not get worse, like last year. Called patient who stated she did not remember the name of the surgeon that did the surgery. The surgery was for the migraines that she was having. Cerebellum or something like that. Patient statedshe does not quite remember. Patient stated she was seeing Katie Ellis during this process. Explosive Operator Fuse gave patient the number to NEUROSURGERY and stated it may be best to schedule an appt w/ her surgeon. * Telephone Encounter - ANASTASIA Vallejo - 07/15/2024 4:13 PM EDT She did not have a surgery with us. Clarification will need to be made as to what surgery she had and routed to the correct provider. documented in this encounter Plan of Treatment Upcoming Encounters Date Type Department Care Team (Late st Contact Info) Description 09/29/2025 4:00 PM EST Telemedicine [facility] Department of [facility] [address] [place] [address] Bari Caro MD [address] [facility] [address] [place] [address] documented as of this encounter Goals Goal [...] documented as of this encounter Care Teams Stumper Feller Relationship Specialty Start Date End Date Pete Thapa Jr., DO [address] [address] PCP - General Family Medicine 02/26/25 documented as of this encounter
--- OUTSIDE RECORDS SUMMARY | 2025-07-05 09:55 | XMS_ITS | Encounter Summary ---
Author Organization [employer] Address [facility]-[id number] [address] [place] [address] Care Team Providers Care Manufacturing Technologist Name Role Phone Alanis Sky DO, George R Primary Care Provider + Encounter Details Date Type Department Care Team (Late st Contact Info) Description 07/04/2025 [facility] [address] [place] [address] Doris Hernandez Social History Tobacco Use Types Packs/Day Years Used Date Smoking Tobacco: Never Smokeless Tobacco: Never Alcohol Use Standard Drinks/Week Comments Yes 0 (1 standard drink = 0.6 oz pur e alcohol) q 1x per month [facility] Utilities Answer Date Recorded In the past 12 months has e electric, gas, oil, or water company [...] Miscellaneous Notes * Telephone Encounter - Doris Hernandez - 07/04/2025 12:58 PM EDT Spoke with Charis to let her know that Dr. Barbosa does not follow for headaches during and that she would need to follow with Neurology for headaches during her and transferred to Neurology documented in this encounter Plan of Treatment Upcoming Encounters Date Type Department Care Team (Late st Contact Info) Description 09/29/2025 4:00 PM EST Telemedicine [facility], A Department of [facility] [address] [place] [phone] Bari Caro MD [address] [facility] [address] [place] [address] documented as of this encounter Goals Goal [...] documented as of this encounter Care Teams Manufacturing Technologist Relationship Specialty Start Date End Date Pete Thapa Jr., [address] [place] [address] PCP - General Family Medicine 02/26/25 documented as of this encounter
--- OUTSIDE RECORDS SUMMARY | 2025-07-05 09:55 | XMS_ITS | Encounter Summary ---
Author Organization [facility] Address [id number] [address] [place] [address] Care Team Providers Care Sash Repairer Name Role Phone Alanis Sky DO, George R Primary Care Provider + Encounter Details Date Type Department Care Team (Late st Contact Info) Description 07/03/2025 Telephone [facility] Neurology, A Department of [facility] [address] [facility] [address] [place] [address] Otilia Oviedo Social History Tobacco Use Types Packs/Day Years Used Date Smoking Tobacco: Never Smokeless Tobacco: Never Alcohol Use Standard Drinks/Week Comments Yes 0 (1 standard drink = 0.6 oz pur e alcohol) q 1x per month [facility] Utilities Answer Date Recorded In the past [...] encounter Miscellaneous Notes * Telephone Encounter - Otilia Oviedo - 07/03/2025 8:37 AM EDT White Sourer contacted the patient to offer to schedule from referral that was written by Xiao Ellis. She stated that she would prefer to schedule with neurosurgery. White Sourer transferred to neurosurgery. * Telephone Encounter - Zenia Bermudez - 07/03/2025 8:37 AM EDT Patient called back and proposal writer scheduled for Dr. Caro and added patient to the waitlist. FYI documented in this encounter Plan of Treatment Upcoming Encounters Date Type Department Care Team (Late st Contact Info) Description 09/29/2025 4:00 PM EST Telemedicine [facility], [facility] Department [facility] [address] [place] [address] Bari Caro MD [address] [facility], [address] [place] [address] documented as of this encounter Goals Goal [...] documented as of this encounter Care Teams Sash Repairer Relationship Specialty Start Date End Date Pete Thapa Jr., DO [address] [facility] [address] [facility] [address] [place] [address] PCP - General Family Medicine 02/26/25 documented as of this encounter
--- OUTSIDE RECORDS SUMMARY | 2025-07-05 09:55 | XMS_ITS | Encounter Summary ---
Author Organization [facility] Address [address] [place] [address] Care Team Providers Care Paper Rewinder Operator Name Role Phone Pete Thapa DO Primary Care Provider [phone] Encounter Details Date Type Department Care Team (Late st Contact Info) Description 09/05/2023 Abstract [facility] [address] [facility] [address] [place] [address] Jona Henley MD [address] [facility] [address] [place] [address] Social History Tobacco Use Types Packs/Day Years Used Date Smoking Tobacco: Never Smokeless Tobacco: Never Alcohol Use Standard Drinks/Week Comments Not Currently 0 (1 standard drink = 0.6 oz pur e alcohol) caffeine: none PHQ-2 Answer Date Recorded Patient Health Questionnaire-2 Score 0 06/29/2023 [place] Depression Scale Answer Date Recorded [place] Depression Scale Total 0 08/10/2023 The thought [...] [address] [place] [phone] Jona Henley MD [address] [place] [address] 08/14/2025 3:00 PM EST Office Visit [facility] [address] [place] [phone] Jona Henley MD [address] [place] [address] documented as of this encounter Visit Diagnoses Not on filedocumented in this encounter Care Teams Paper Rewinder Operator Relationship Specialty Start Date End Date Pete Thapa DO [address] [place] [address] PCP - General Family Medicine 02/14/23 documented as of this encounter
--- OUTSIDE RECORDS SUMMARY | 2025-07-05 09:55 | XMS_ITS | Encounter Summary ---
Author Organization [facility] Address [address] [place] [address] Care Team Providers Care Flight Mechanic Name Role Phone Pete Thapa DO Primary Care Provider [phone] Encounter Details Date Type Department Care Team (Late st Contact Info) Description 09/07/2023 Abstract [facility] [address] [facility] [address] [place] [address] Jona Henley MD [address] [facility] [address] [place] [address] Social History Tobacco Use Types Packs/Day Years Used Date Smoking Tobacco: Never Smokeless Tobacco: Never Alcohol Use Standard Drinks/Week Comments Not Currently 0 (1 standard drink = 0.6 oz pur e alcohol) caffeine: none PHQ-2 Answer Date Recorded Patient Health Questionnaire-2 Score 0 06/29/2023 [place] Depression Scale Answer Date Recorded [place] Depression Scale Total 0 08/10/2023 The thought [...] [address] [place] [address] Jona Henley MD [address] [place] [address] 08/14/2025 3:00 PM EST Office Visit BRANDEN Pena [facility] [address] [place] [phone] Jona Henley MD [address] [place] [address] documented as of this encounter Visit Diagnoses Not on filedocumented in this encounter Care Teams Flight Mechanic Relationship Specialty Start Date End Date Pete Thapa DO [address] [place] [address] PCP - General Family Medicine 02/14/23 documented as of this encounter
--- OUTSIDE RECORDS SUMMARY | 2025-07-05 09:55 | XMS_ITS | Clinical Summary ---
Author Organization [facility] Address [address] [facility] [place] [address] Care Team Providers Care Squaring Machine Operator Name Role Phone Katie Thapa DO Primary Care Provider Allergies Active Allergy Reactions Criticality Noted Date Comments *Seasonal 12/24/2009 Cyproheptadine Diarrhea High 08/02/2013 Other reaction(s): Other: See Comments Passing out, turning white. Doxycycline Dizzy/Vertigo 11/29/2021 Other reaction(s): Other: See Comments Other reaction(s): dizziness dizziness Penicillin G Sodium Rash 11/29/2021 Other reaction(s): rash Medications zonisamide 100 MG capsule TAKE 1CAP BY MOUTH AT BEDTIME.CAN INCREASE BY 1CAP EVERY 2 WKS ONLY IF NEEDED*MAX 4CAPS AT BEDTIME* 3 Active clindamycin 1 % Lotion lotion Apply 1 Application topically daily. 2 Active pimecrolimus 1 % Cream Apply 1 Application topically daily. 2 Active tretinoin 0.1 % Cream Apply 1 Application topically daily. 2 Active Active Problems Problem Noted Date Diagnosed Date Obesity (BMI 30.0-34.9) 12/14/2022 Acne vulgaris 12/14/2022 Hyperinsulinemia 12/14/2022 Weight gain 12/14/2022 Abnormal thyroid function test 12/14/2022 Social History Tobacco Use Types Packs/Day Years Used Date Smoking Tobacco: Never Smokeless Tobacco: Never Tobacco Cessation:Counseling Given: Not Answered Alcohol Use Standard Drinks/Week Comments Never 0 (1 standard drink = 0.6 oz pur e alcohol) Comments No Sex and Gender Information Value Date Recorded Sex Assigned at Not on file Legal Sex Female 11:58 AM EST Gender Identity Female 11/28/2022 12:06 PM EST Sexual Orientation Not on file Last Filed Vital Signs Vital Sign Reading Time Taken Comments Blood Pressure 120/72 12/14/2022 11:07 AM EST Pulse 91 12/14/2022 11:07 AM EST Temperature - - Respiratory Rate 16 12/14/2022 11:07 AM EST Oxygen Saturation - - Inhaled Oxygen Concentration - - Weight 92.4 kg (203 lb 9.6 oz) 12/14/2022 11:07 AM EST Height 167.6 cm (5' 6 ) 12/14/2022 11:07 AM EST Body Mass Index 32.86 12/14/2022 11:07 AM EST Plan of Treatment Health Maintenance Due Date Last Done Comments GONORRHEA SCREEN 2002 HEPATITIS C VIRUS SCREENING 2002 HIV SCREENING DISCUSSION 2017 CHLAMYDIA SCREEN 2018 CERVICAL CANCER SCREENING DISCUSSION 2023 COVID-19 VACCINE ( season) 2025 12/22/2022 INFLUENZA VACCINE (#1) 2025 , 06/04/2021, 07/02/2020, Additional history exists TETANUS 06/25/2025 06/25/2015, 01/08, 11/08/2004, Additional history exists HEP B VACCINE Completed 04/21/2003, 12/07, 2002 PNEUMOCOCCAL VACCINE SERIES Aged Out 04/08, 04/21/2004, 09/09/2003, Additional history exists No longer eligible based on patient's age to complete this topic TDAP (ADULT) Completed 06/25/2015, 01/08, 11/08/2004, Additional history exists HPV VACCINE ADOL Completed 07/13/2017, 06/2017, 12/15/2016 HPV VACCINE Completed 07/13/2017, 06/2017, 12/15/2016 Insurance [facility] Medicaid Care Teams Squaring Machine Operator Relationship Specialty Start Date End Date Katie Thapa DO [address] [facility] [address] [place] [address] PCP - General Family Medicine 11/28/22
--- OUTSIDE RECORDS SUMMARY | 2025-07-05 09:55 | XMS_ITS | Clinical Summary ---
Author Organization [facility] Address [address] [facility], [address] [place] [address] Care Team Providers Care Templer Head Name Role Phone Pete Thapa Primary Care Provider [phone] Allergies Active Allergy Reactions Criticality Noted Date Comments Cyproheptadine Diarrhea,Other (See Comments) High 08/02/2013 Other Reaction(s): Other: See Comments Other reaction(s): Other: See Comments Passing out, turning white. Passing out, turning white. Passing out, turning white. Doxycycline Dizziness or Vertigo,Other (See Comments) Low 11/29/2021 Other Reaction(s): Dizzy/Vertigo, Other: See Comments Other reaction(s): Other: See Comments Other reaction(s): dizziness dizziness dizziness dizziness Levonorgestrel-Ethinyl Estrad Other (See Comments) 12/24/2009 Other Reaction(s): Other (See Comments) Patient not sure Patient not sure Penicillin G Sodium Rash Low 11/29/2021 Other reaction(s): rash Medications No known medications Social History Tobacco Use Types Packs/Day Years Used Date Smoking Tobacco: Never Smokeless Tobacco: Never Tobacco Cessation:Counseling Given: Not Answered Alcohol Use Standard Drinks/Week Comments Never 0 (1 standard drink = 0.6 oz pur e alcohol) AUDIT-C Answer Date Recorded Q1: How often do you have a drink containing alcohol? Never 01/11/2025 Q2: How many drinks containi ng alcohol do you have on a typical day when you are drinking? Patient does not drink Q3: How often do you have si x or more drinks on one occasion? Never 01/11/2025 Interpersonal Safety Domain Source: IP Abuse Scr eening Answer Date Recorded Physical abuse Denies 11/30/2024 Verbal abuse Denies 11/30/2024 Emotional abuse Denies 11/30/2024 Financial abuse Denies 11/30/2024 Sexual abuse Denies 11/30/2024 Comments No Sex and Gender Information Value Date Recorded Sex Assigned at Not on file Legal Sex Female 9:23 AM EDT Gender Identity Not on file Sexual Orientation Not on file Last Filed Vital Signs Vital Sign Reading Time Taken Comments Blood Pressure 108/73 01/11/2025 7:20 PM EDT Pulse 72 01/11/2025 7:22 PM EDT Temperature 36.7 C (98 F) 01/11/2025 6:30 PM EDT Respiratory Rate 18 01/11/2025 7:22 PM EDT Oxygen Saturation 100% 01/11/2025 7:22 PM EDT Inhaled Oxygen Concentration - - Weight 71 kg (156 lb 9.6 oz) 01/11/2025 6:30 PM EDT Height 170.2 cm (5' 7 ) 01/11/2025 6:30 PM EDT Body Mass Index 24.53 01/11/2025 6:30 PM EDT Plan of Treatment Health Maintenance Due Date Last Done Comments Varicella vaccine (2 of 2 - 2-dose childhood series) 2006 11/08/2004 Depression Screen 2014 HIV screen 2017 Chlamydia/GC screen 2018 Meningococcal B vaccine (1 of 2 - Standard) 2018 Hepatitis C screen 2020 Pap smear 2023 Flu vaccine (#1) 05/09/2025 06/13/2024, , 08/03/2022, Additional history exists COVID-19 Vaccine ( season) 2025 03/09/2023, 12/22/2022 DTaP/Tdap/Td vaccine (7 - Td or Tdap) 06/25/2025 06/25/2015, 01/30/2008, 11/08/2004, Additional history exists Hepatitis B vaccine Completed 04/21/2003, 2002, 2002 Hib vaccine Completed 04/21/2004, 04/08, 02/17/2003, Additional history exists Pneumococcal 0-49 years Vaccine Aged Out 04/21/2004, 09/09/2003, 04/21/2003, Additional history exists No longer eligible based on patient's age to complete this topic Measles,Mumps,Rubella (MMR) vaccine Discontinued 01/30/2008, 04/21/2004 Polio vaccine Completed 01/30/2008, 11/2002, 02/17/2003, Additional history exists Meningococcal (ACWY) vaccine Aged Out 07/31/2015 No longer eligible based on patient's age to complete this topic HPV vaccine Completed 07/13/2017, 12/15/2016 Hepatitis A vaccine Completed 07/13/2017, 7 Insurance [facility] MEDICAID Care Teams Templer Head Relationship Specialty Start Date End Date Pete Thapa DO [address] [place] [address] PCP - General Family Medicine 10/01/23
--- OUTSIDE RECORDS SUMMARY | 2025-07-05 09:55 | XMS_ITS | Encounter Summary ---
Author Organization [facility] Address [address] [place] [address] Care Team Providers Care Section Weaver Name Role Phone Pete Thapa DO Primary Care Provider [phone] Encounter Details Date Type Department Care Team (Late st Contact Info) Description 08/21/2023 Abstract [facility]OMEfe Pena [facility] [address] [facility] [address] [place] [address] Jona Henley MD [address] [facility] [address] [place] [address] Social History Tobacco Use Types Packs/Day Years Used Date Smoking Tobacco: Never Smokeless Tobacco: Never Alcohol Use Standard Drinks/Week Comments Not Currently 0 (1 standard drink = 0.6 oz pur e alcohol) caffeine: none PHQ-2 Answer Date Recorded Patient Health Questionnaire-2 Score 0 06/29/2023 [place] Depression Scale Answer Date Recorded [place] Depression Scale Total 0 08/10/2023 The thought [...] [address] [place] [address] Jona Henley MD [address] [place] [address] 08/14/2025 3:00 PM EST Office Visit BRANDEN Pena [facility]I [address] [place] [phone] Jona Henley MD [address] [place] [address] documented as of this encounter Visit Diagnoses Not on filedocumented in this encounter Care Teams Section Weaver Relationship Specialty Start Date End Date Pete Thapa DO [address] [place] [address] PCP - General Family Medicine 02/14/23 documented as of this encounter
--- OUTSIDE RECORDS SUMMARY | 2025-07-05 09:55 | XMS_ITS | Encounter Summary ---
Author Organization [facility] Address [address] [place] [address] Care Team Providers Care Psychiatric Social Worker Name Role Phone Cristobal-Kerry Coates RD Unavailable Jona Henley MD Unavailable [phone] Source Comments In the event this information is protected by the Federal Confidentiality of Alcohol and Drug AbusePatient Records regulations: The Federal rules restrict any use of the information to criminally investigate or prosecute any alcohol or drug abuse patient.[facility] Encounter Details Date Type Department Care Team (Late st Contact Info) Description 04/24/2025 Patient [facility] HB[facility] [place] [address] Kerry Choe RPh At your next appointment, choose [facility]. Social History Tobacco Use Types Packs/Day Years [...] is lower risk 7 08/16/2023 Data from: https://www.neighborhoodatlas.medicine.[facility]/. Last address used for calculation 28 [address] [...] on filedocumented in this encounter Care Teams Psychiatric Social Worker Relationship Specialty Start Date End Date Crtali-Kerry Coates RD [address] [address] Nutrition 04/04/23 Jona Henley MD [address] [facility] [address] [place] [phone] Referring Business Analyst Manager 06/11/25 documented as of this encounter
--- OUTSIDE RECORDS SUMMARY | 2025-07-05 09:56 | XMS_ITS | Encounter Summary ---
Author Organization [facility] Address [facility] [place] [address] Care Team Providers Care Director Of Collections Name Role Phone Luke Kerry COONEY Unavailable Jona Henley MD Unavailable [phone] Source Comments In the event this information is protected by the Federal Confidentiality of Alcohol and Drug AbusePatient Records regulations: The Federal rules restrict any use of the information to criminally investigate or prosecute any alcohol or drug abuse patient.[facility] Encounter Details Date Type Department Care Team (Late st Contact Info) Description 07/20/2021 Get Medical Advice Dermatology [address] [place] [address] Mary Ann Ma MD [address] [place] [address] RE: Test Result Question Social History Tobacco Use Types Packs/Day Years Used Date Smoking Tobacco: Never Comments:no one in household smokes Alcohol Use Standard Drinks/Week Comments No 0 (1 standard drink = 0.6 oz pur e alcohol) Area Deprivation Index Answer Date Yannick rded National Score (1-100), lower number is lower ri sk Not on file 09/14/2020 State Score (1-10), lower number is lower risk N ot on file 09/14/2020 Data from: https://www.neighborhoodatlas.medicine.[facility]/. Last address used for calculation Not on [...] on filedocumented in this encounter Care Teams Director Of Collections Relationship Specialty Start Date End Date Crtalic-Kerry Coates RD [address] [address] Nutrition 04/04/23 Jona Henley MD [address] [facility] [address] [place] [address] Referring Salvationist 06/11/25 documented as of this encounter
--- OUTSIDE RECORDS SUMMARY | 2025-07-05 09:56 | XMS_ITS | Encounter Summary ---
Author Organization [facility] Address [address] [place] [address] Care Team Providers Care Welding Technician Name Role Phone Cristobal-Kerry Coates RD Unavailable Jona Henley MD Unavailable [phone] Source Comments In the event this information is protected by the Federal Confidentiality of Alcohol and Drug AbusePatient Records regulations: The Federal rules restrict any use of the information to criminally investigate or prosecute any alcohol or drug abuse patient.[facility] Encounter Details Date Type Department Care Team (Late st Contact Info) Description 10/04/2024 Patient [facility] HB-[address] [place] [address] Kerry Choe RPh At your next appointment, choose [facility] Social History Tobacco Use Types Packs/Day Years [...] is lower risk 7 08/16/2023 Data from: https://www.neighborhoodatlas.medicine.[facility]/. Last address used for calculation 28 [address] [...] on filedocumented in this encounter Care Teams Welding Technician Relationship Specialty Start Date End Date Crtalic-Kerry Coates RD [address] [address] Nutrition 04/04/23 Jona Henley MD [address] [facility] [address] [place] [phone] Referring Amortization Schedule Clerk 06/11/25 documented as of this encounter
--- OUTSIDE RECORDS SUMMARY | 2025-07-05 09:56 | XMS_ITS | Encounter Summary ---
Author Organization [facility] Address [address] [place] [address] Care Team Providers Care Fitter Placer Name Role Phone Pete Thapa DO Primary Care Provider [phone] Encounter Details Date Type Department Care Team (Late st Contact Info) Description 07/03/2025 Clinisync Result Encounter [facility] External Department Unsolicited Provider, Generic External Data Social History Tobacco Use Types Packs/Day Years Used Date Smoking Tobacco: Never Smokeless Tobacco: Never Alcohol Use Standard Drinks/Week Comments Not Currently 0 (1 standard drink = 0.6 oz pur e alcohol) caffeine: none B1300 Health Literacy Answer Date Recor ded How often do you need to hav e someone help you when you read instructions, pamphlets, or other written material from your doctor or pharmacy? Patient declines to respond 06/11/2025 Humiliation, Afraid, Rape, and Kick questionnair e Answer Date Recorded Within the last year, have y ou been afraid of your partner or ex-partner? No 06/11/2025 Within the last year, have y ou been humiliated or emotionally abused in other ways by your partner or ex-partner? No Within the last year, have y ou been kicked, hit, slapped, or otherwise physically hurt by your partner or ex-partner? No 06/11/2025 Within the last year, have y ou been raped or forced to have any kind of sexual activity by your partner or ex-partner? No 06/11/2025 Social Connection and Isolation Panel [NHANES] A nswer Date Recorded In a typical week, how many times do you talk on the phone with family, friends, or neighbors? Once a week 06/11/20 How often do you get togethe r with friends or relatives? Three times a week 06/11/2025 How often do you attend chur ch or taoism services? 1 to 4 times per year 06/11/2025 Do you belong to any clubs o r organizations such as voodoo groups, unions, fraternal or athletic groups, or school groups? No 06/11/2025 How often do you attend meet ings of the clubs or organizations you belong to? Never 06/11/2025 Are you , , di vorced, , never , or living with a partner? Patient declined 06/11/2025 AUDIT-C Answer Date Recorded Q1: How often do you have a drink containing alcohol? Monthly or less 06/11/2025 Q2: How many drinks containi ng alcohol do you have on a typical day when you are drinking? Patient does not drink Q3: How often do you have si x or more drinks on one occasion? Less than monthly 06/11/2025 Overall Financial Resource Strain (CARDIA) Answe r Date Recorded How hard is it for you to pa y for the very basics like food, housing, medical care, and heating? Somewhat hard 06/11/2025 PHQ-2 Answer Date Recorded Patient Health Questionnaire-2 Score 0 06/13/2025 [facility] - Occupational Stress Questionnaire Answer Date Recorded Do you feel stress - tense, restless, nervous, or anxious, or unable to sleep at night because your mind is troubled all the time - these days? Only a little 06/11/2025 Exercise Vital Sign Answer Date Recorde d On average, how many days pe r week do you engage in moderate to strenuous exercise (like a brisk walk)? 2 days 06/11/2025 On average, how many minutes do you engage in exercise at this level? 10 min 06/11/2025 Hunger Vital Sign Answer Date Recorded Within the past 12 months, y ou worried that your food would run out before you got the money to buy more. Sometimes true Within the past 12 months, t he food you bought just didn't last and you didn't have money to get more. Sometimes true 12/2024 PRAPARE - Transportation Answer Date Re corded In the past 12 months, has l ack of transportation kept you from medical appointments or from getting medications? No 12/2024 In the past 12 months, has l ack of transportation kept you from meetings, work, or from getting things needed for daily living? No 06/11/2025 Morris Depression Scale Answer Date Recorded Morris Depression Scale Total 0 08/10/2023 The thought of harming myself has occurred to me . Never 08/10/2023 Housing Stability Vital Sign Answer Yeyo e Recorded In the last 12 months, was t here a time when you were not able to pay the mortgage or rent on time? No 06/11/2025 Number of Times Moved in the Last Year Not on fi le 06/11/2025 At any time in the past 12 m onths, were you homeless or living in a residential (including now)? No 06/11/2025 Comments No Sex and Gender Information Value [...] [address] [place] [phone] Jona Henley MD [address] [place] [address] 08/14/2025 3:00 PM EST Office Visit [facility] [address] [place] [phone] Jona Henley MD [address] [place] [address] documented as of this encounter Procedures Procedure Name Priority Date/Time Associated Diagnosis Comments [facility] PREG QUANT HCG Routine 07/03/2025 9: 51 AM EDT documented in this encounter Results * [facility] PREG QUANT HCG (07/03/2025 9:51 AM EDT) HCG QUANTITATIVE 805 mIU/mL [facility] Comment: 5-50 0.2-1 WEEK 50-500 1-2 WEEKS 100-5,000 2-3 WEEKS 500-10,000 3-4 WEEKS 1,000-50,000 4-5 WEEKS 10,000-100,000 5-6 WEEKS 15,000-200,000 6-8 WEEKS 10,000-100,000 2-3 MONTHS 07/03/2025 9:51 AM EDT 07/03/2025 9:52 AM EDT Narrative [facility] - 07/03/2025 10:25 AM EDT us Jona Henley MD [facility] documented in this encounter Visit Diagnoses Not on filedocumented in this encounter Care Teams Fitter Placer Relationship Specialty Start Date End Date Pete Thapa DO [address] [facility] [address] [place] [phone] PCP - General Family Medicine 02/14/23 documented as of this encounter
--- OUTSIDE RECORDS SUMMARY | 2025-07-05 09:56 | XMS_ITS | Clinical Summary ---
Author Organization [facility] Address [address] [place] [address] Care Team Providers Care Acrobatic Dancer Name Role Phone Pete Thapa DO Primary Care Provider [phone] Allergies Active Allergy Reactions Criticality Noted Date Comments Azithromycin 08/17/2023 Other Reaction(s): Unknown Reaction Cyproheptadine Diarrhea High 08/02/2013 Other Reaction(s): Other: See Comments Other reaction(s): Other: See Comments Passing out, turning white. Passing out, turning white. Doxycycline Dizziness Low 11/29/2021 Other Reaction(s): Dizzy/Vertigo, Other: See Comments Other reaction(s): Other: See Comments Other reaction(s): dizziness dizziness dizziness Other Reaction(s): Unknown Reaction, rash Levonorgestrel-Ethinyl Estrad 12/24/2009 Other Reaction(s): Other (See Comments) Patient not sure Oxycodone Palpitations Low 08/17/2023 Penicillin G Sodium Rash Low 11/29/2021 Other reaction(s): rash Penicillins 11/08/2023 Other Reaction(s): Unknown Reaction, rash Medications meclofenamate (Meclomen) 100 MG capsuleIndication s:Chiari malformation type I (HCC) One tablet tid on menses No hormones due to Chiari malformation 120 capsule 2 025 Active clindamycin (Cleocin T) 1 % external solutionIndicatio ns:Acne vulgaris Apply topically in the morning and before bedtime. APPLY TO AFFECTED AREAS ON FACE ONCE A DAY. 30 mL 3 025 Active methylphenidate ER (Concerta) 18 MG CR tabletIndications :Attention deficit hyperactivity disorder (ADHD), combined type Take 1 tablet (18 mg) by mouth in the morning. Do not crush, chew, or split. 30 tablet Active Vit-Fe Fumarate-FA ( Vitamins) 28-0.8 MG tabletIndications : confirmed by positive blood test ([facility]) Take 1 tablet by mouth Daily 30 tablet 11 025 2025 Active triamcinolone (Kenalog) 0.1 % creamIndications: Vaginal burning Apply topically 2 (two) times a day 30 g 2 025 2024 Discontinued Condoms - Male miscIndications:A cute vaginitis 1 Units Daily 10 Units 2 025 2024 Discontinued ondansetron ODT (Zofran-ODT) 4 MG disintegrating tablet Take 4 mg by mouth every 8 (eight) hours if needed for nausea or vomiting 2024 Discontinued methylphenidate ER (Concerta) 18 MG CR tabletIndications :Attention deficit hyperactivity disorder (ADHD), combined type Take 1 tablet (18 mg) by mouth in the morning. Do not crush, chew, or split. 30 tablet 025 2024 Discontinued(R eorder) ibuprofen 800 MG tablet Take 800 mg by mouth every 8 (eight) hours if needed for mild pain or moderate pain 025 2024 Discontinued clindamycin (Cleocin T) 1 % external solutionIndicatio ns:Acne vulgaris Apply topically in the morning and before bedtime. APPLY TO AFFECTED AREAS ON FACE ONCE A DAY. 30 mL 025 2024 Discontinued(R eorder) nitrofurantoin, macrocrystal-mono hydrate, (Macrobid) 100 MG capsuleIndication s:Urinary tract infection without hematuria, site unspecified Take 1 capsule (100 mg) by mouth in the morning and 1 capsule (100 mg) before bedtime. Do all this for 7 days. 14 capsule 025 2024 Active Problems Problem Noted Date Diagnosed Date Miscarriage ([facility]) 02/26/2025 Depression 06/29/2023 Leukopenia 06/29/2023 Menorrhagia with irregular cycle 06/29/2023 Otomycosis 01/04/2023 Abnormal thyroid function test 12/14/2022 Acne vulgaris 12/14/2022 Assessment & Plan (06/13/2025 10:58 AM EDT): Problem is stable, will continue with current treatment plan. Call or return to clinic if any changes occur Orders: clindamycin (Cleocin T) 1 % external solution; Apply topically in the morning and before bedtime. APPLY TO AFFECTED AREAS ON FACE ONCE A DAY. Hyperinsulinemia 12/14/2022 Obesity (BMI 30.0-34.9) 12/14/2022 Weight gain 12/14/2022 Gross hematuria 11/23/2022 Overview (06/29/2023): Added automatically from request for surgery [id number] Right lower quadrant abdominal pain 11/23/2022 Overview (06/29/2023): Added automatically from request for surgery [id number] Tinnitus, right ear 09/15/2022 Nausea and vomiting 12/13/2021 Cerumen debris on tympanic membrane of right ear 02/08/2021 Chronic otitis media 11/28/2019 Dysfunction of both eustachian tubes 09/27/2017 Conductive hearing loss of r ight ear with unrestricted hearing of left ear 11/17/2015 Generalized abdominal pain 08/04/2015 Attention deficit hyperactiv ity disorder (ADHD), combined type 07/13/2015 Overview (06/29/2023): 2-3 years ago was seeing counselor. Impulsive behavior as a kid: would run away. Was on Concerta 2-3 yrs ago. Was losing weight on this. Did help a lot per parents with cooperation, grades, focus. Assessment & Plan (06/13/2025 10:58 AM EDT): improved significantly, continue current treatment Orders: methylphenidate ER (Concerta) 18 MG CR tablet; Take 1 tablet (18 mg) by mouth in the morning. Do not crush, chew, or split. Hearing loss due to cerumen impaction 07/13/2015 Retained myringotomy tube in left ear 07/13/2015 Anxiety 08/09/2013 Overview (06/29/2023): Was on meds in past ? Name. Did seem to help. Rxed by psychiatrist. Resolved Problems Problem Noted Date Diagnosed Date Resolved Date Chiari syndrome 12/27/2022 07/10/2023 Overview (06/29/2023): Added automatically from request for surgery [id number] Encounters Date Type Department Care Team Description 07/03/2025 Clinisync Result Encounter [facility] External Department Unsolicited Provider, Generic External Data 06/16/2025 Results Follow-Up [facility] [place] [facility] [address] [place] [phone] Jona Henley MD METHYLENETETRAHYDROFOLATE REDUCTASE (MTHFR) THERMOLABILS 06/13/2025 10:40 AM EDT Office Visit [facility] [address] [place] [phone] Pete Thapa DO Major depressive disorder, single episode, mild ; Acne vulgaris; Attention deficit hyperactivity disorder (ADHD), combined type 06/13/2025 Bamboo flowsheet [facility] [address] [place] [phone] Pete Thapa DO 06/13/2025 Travel 06/11/2025 Orders Only [facility] [place] [facility] [address] [place] [phone] Jona Henley MD Urinary tract infection without hematuria, site unspecified (Primary Dx) 06/11/2025 Travel 06/11/2025 Results Follow-Up [facility] [place] [facility] [address] [place] [address] Jona Henley MD Iron and TIBC, CBC and differential, Ferritin, Additional followed-up results: 4 06/10/2025 8:45 AM EDT Office Visit [facility] [place] [facility] [address] [place] [address] Jona Henley MD Chiari malformation type I (HCC) (Primary Dx); Amenorrhea; Menorrhagia with irregular cycle; Excessive bleeding in premenopausal period; History of miscarriage; Vaginal burning; Vaginal itching; Vaginal irritation 06/10/2025 Orders Only [facility] External Department Unsolicited Jona Henley MD 06/10/2025 Travel 06/06/2025 8:45 AM EDT Ancillary Procedure [facility] [place] [facility] [address] [place] [address] Menorrhagia with regular cycle; Dysmenorrhea 06/06/2025 Travel 05/07/2025 Refill [facility] [address] [email or web address] [address] [place] [address] Pete Thapa DO Attention deficit hyperactivity disorder (ADHD), combined type 04/17/2025 Clinisync Result Encounter [facility] External Department Unsolicited Provider, Generic External Data from Last 3 Months Immunizations Immunization Administration Dates Next Due DTaP 01/30/2008, 5,04/21/2003,02/17,2002 HPV 9-Valent 07/13/2017,12/15/2016 Hep A, Adult 12/15/2016 Hep A, ped/adol, 2 dose 07/13/2017,12/15/2016 Hep B, Adolescent or Pediatric 04/21/2003,2002,2002 HiB, unspecified 04/21/2004, 3,02/17/2003,12/17 Hib (HbOC) 04/21/2004, 3,02/17/2003,12/17 IPV 01/30/2008, 3,02/17/2003,12/17 Influenza, Injectable, MDCK, preservative free 06/13/2024 Influenza, Unspecified 07/30/2013,2010,08/24/2010,07/22 Influenza, injectable, MDCK, preservative free, quadrivalent 06/23/2023,08/03/2022,07/10/2019 Influenza, injectable, MDCK, quadrivalent 07/02/2020 Influenza, injectable, quadr ivalent, preservative free 06/04/2021,07/06/2018,07/13/2017,07/08,07/30/2013 Influenza, live, intranasal 07/22/2009 Influenza, seasonal, injectable 07/08/20 15,07/28/2011,08/31/2004,10/15,09/12/2003 Influenza, seasonal, injecta ble, preservative free 08/24/2010,08/31/2004 MMR 01/30/2008,04/21/2004 Meningococcal MCV4O 07/31/2015 Meningococcal MCV4P 07/31/2015 Pneumococcal Conjugate PCV 7 04/21/2004, 09/09/2003,04/21/2003,12/17 Pneumococcal Conjugate, Unspecified 04/08,09/09/2003,04/21/2003,12/17 SARS-COV-2 (COVID-19) vaccin e, mRNA, spike protein, LNP, bivalent, preservative free, 30 mcg/0.3 mL dose, merly-sucrose formulation 03/09/2023 Tdap 06/25/2015 Varicella 11/08/2004 Family History Medical History Relation Name Comments No Known Problems Father No Known Problems Maternal Grandfather No Known Problems Maternal Grandmother No Known Problems Mother Leukemia Paternal Grandfather Breast cancer Paternal Grandmother Lung cancer Paternal Grandmother Thyroid disease Paternal Grandmother Relation Name Status Comments Father Maternal Grandfather Maternal Grandmother Mother Paternal Grandfather Paternal Grandmother Social History Tobacco Use Types Packs/Day Years Used Date Smoking Tobacco: Never Smokeless Tobacco: Never Tobacco Cessation:Counseling Given: Yes Alcohol Use Standard Drinks/Week Comments Not Currently [...] 06/11/2025 How often do you attend chur or anabaptism services? 1 to 4 times per year 06/11/2025 Do you belong to any clubs o r organizations such as druze groups, unions, fraternal or athletic groups, or [...] Recorded Patient Health Questionnaire-2 Score 0 06/13/2025 [facility] [place] of Occupat ional Health - Occupational Stress [...] things needed for daily living? No 06/11/2025 [place] Depression Scale Answer Date Recorded [place] Depression Scale Total 0 08/10/2023 The [...] were you homeless or living in a prison (including now)? 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 Not on file Not on file Not on file Last Filed Vital Signs Vital Sign Reading Time Taken Comments Blood Pressure 108/62 06/13/2025 10:39 AM EDT Pulse 98 06/13/2025 10:39 AM EDT Temperature 36.6 C (97.8 F) 06/13/2025 10:39 AM EDT Respiratory Rate - - Oxygen Saturation 99% 06/13/2025 10:39 AM EDT Inhaled Oxygen Concentration - - Weight 76.7 kg (169 lb) 06/13/2025 10:39 AM EDT Height 172.7 cm (5' 8 ) 06/13/2025 10:39 AM EDT Body Mass Index 25.7 06/13/2025 10:39 AM EDT Plan of Treatment Upcoming Encounters Date Type Department Care Team (Late st Contact Info) Description 07/15/2025 8:45 AM EDT Office Visit [facility] [address] [place] [phone] Jona Henley MD [address] [place] [address] 08/14/2025 3:00 PM EST Office Visit [facility] [address] [place] [phone] Jona Henley MD [address] [place] [address] Health Maintenance Due Date Last Done Comments Influenza Vaccine (#1) 2025 4, 06/23/2023, 08/03/2022, Additional history exists Procedures Procedure Name Priority Date/Time Associated Diagnosis Comments [facility] PREG QUANT HCG Routine 07/03/2025 9:51 AM EDT METHYLENETETRAHYDROFOLATE REDUCTASE (MTHFR) THERMOLABILS Routine 06/10/2025 10:17 AM EDT FERRITIN Routine 06/10/2025 10:16 AM EDT Amenorrhea Menorrhagia with irregular cycle Excessive bleeding in premenopausal period CBC (INCLUDES DIFF/PLT) Routine 06/10/20 10:16 AM EDT Amenorrhea Menorrhagia with irregular cycle Excessive bleeding in premenopausal period IRON AND TOTAL IRON BINDING CAPACITY Routine 06/10/2025 10:16 AM EDT Amenorrhea Menorrhagia with irregular cycle Excessive bleeding in premenopausal period HCG, TOTAL, QN Routine 06/10/2025 10:14 AM EDT Amenorrhea LUPUS ANTICOAGULANT Routine 06/10/2025 10:14 AM EDT History of miscarriage URINE CULTURE CLEAN CATCH REFLEX Routine 06/10/2025 12:00 AM EDT CULTURE, URINE, ROUTINE Routine 06/10/20 12:00 AM EDT Vaginal burning Vaginal itching Vaginal irritation US PELVIS TRANSVAGINAL Routine 9:06 AM EDT Menorrhagia with regular cycle Dysmenorrhea URINE CULTURE - [facility] Routine 04/17/2025 1:15 AM EDT from Last 3 Months Results * [facility] PREG QUANT HCG (07/03/2025 9:51 AM EDT) HCG QUANTITATIVE 805 mIU/mL [facility] Comment: 5-50 0.2-1 WEEK 50-500 1-2 WEEKS 100-5,000 2-3 WEEKS 500-10,000 3-4 WEEKS 1,000-50,000 4-5 WEEKS 10,000-100,000 5-6 WEEKS 15,000-200,000 6-8 WEEKS 10,000-100,000 2-3 MONTHS 07/03/2025 9:51 AM EDT 07/03/2025 9:52 AM EDT Narrative [facility] - 07/03/2025 10:25 AM EDT us Jona HATCH Final Result [facility] * METHYLENETETRAHYDROFOLATE REDUCTASE (MTHFR) THERMOLABILS (06/10/2025 10:17 AM EDT) [facility] MTHFR, DNA ANALYSIS Comment [facility] Comment: Result: c.665C>T (p. [id number]), legacy name: [id number] - Not Detected c.1286A>C (p. [id number]), legacy name: [id number] - Not Detected Interpretation: This result is [...] that can decrease enzyme activity; c.665C>T (p. [id number]), legacy name [id number], and c.1286A>C (p. [id number]), legacy name [id number]. These variants do not independently increase risk [...] to limited evidence of clinical utility (PMID: 69342243). Comments: Genetic Coordinators are available for health care providers to discuss results at [phone]). Test Details: Variants Analyzed: c.665C>T (p. [id number]), legacy name: [id number] and c.1286A>C (p. [id number]), legacy name: [id number] Methods/Limitations: DNA analysis of the MTHFR gene [...] developed and its performance characteristics determined by [facility]. It has not been cleared or approved by the Food and Drug Administration. References: Adelakey SE, Coronel CJ, Kelsey HV. ACMG Practice Guideline: lack of evidence for MTHFR polymorphism testing. Jennyfer Med. 2013 Nov;15(2):153-6. doi: 10.1038/gim.2012.165. Epub 2012Oct 11. PMID: 67258450. [place] [employer]st[employer] Gynec[employer]' Committee on Practice Bulletins-Obstetrics. ACOG Practice Bulletin No. 197: Inherited Thrombophilias in . Obstet Gynecol. 2018 Apr;132(1):e18-e34. doi: 10.1097/AOG.9745447021443307. Erratum in: Obstet Gynecol. 2018 Jul;132(4):1069. PMID: 42120739. REVIEWED BY: Asuncion [facility] Comment: Technical Component performed at [facility] RTP Professional Component performed by: Rohit Caballero, PhD, [facility] [id number], [facility], [address] [facility] [id number] 06/10/2025 10:1 7 AM EDT 06/10/2025 Narrative [facility] - 06/16/2025 10:07 AM EDT Performed at: 01 - [facility] RTP [address], [facility] [place] [id number] Airplane Cabin Attendant: Madyson Gillette [facility], Phone: [phone] us Jona Henley MD LAB BLOOD ORDERABLES Final Res ult [facility] * Iron and TIBC (06/10/2025 10:16 AM EDT) Iron Bind.Cap.(TIBC) 336 250 - 450 ug/dL [facility] UIBC 213 131 - 425 ug/dL [facility] Iron 123 27 - 159 ug/dL [facility] Iron Saturation 37 15 - 55 % [facility] Blood Venous blood specimen / Unknown 06/10/2025 10:16 AM EDT 06/10/2025 Narrative [facility] - 06/11/2025 6:07 AM EDT Performed at: 02 - [facility], [place], [place] [id number] Airplane Cabin Attendant: Roland Martinez PhD, Phone: [phone] us Jona Henley MD LAB BLOOD ORDERABLES Final Res ult [facility] * CBC and differential (06/10/2025 10:16 AM EDT) Pathologist [facility] WBC 4.7 3.4 - 10.8 x10E3/uL [facility] RBC 4.69 3.77 - 5.28 x10E6/uL [facility] Hgb 14.6 11.1 - 15.9 g/dL [facility] Hct 43.6 34.0 - 46.6 % [facility] MCV 93 79 - 97 fL [facility] MCH 31.1 26.6 - 33.0 pg [facility] MCHC 33.5 31.5 - 35.7 g/dL [facility] RDW 12.2 11.7 - 15.4 % [facility] Platelets 220 150 - 450 x10E3/uL [facility] Neutrophils 66 Not Estab. % [facility] Lymphs 27 Not Estab. % [facility] Monocytes 6 Not Estab. % [facility] Eos 0 Not Estab. % [facility] Basos 1 Not Estab. % [facility] Neutrophils Abs 3.1 1.4 - 7.0 x10E3/uL [facility] Lymphs Abs 1.3 0.7 - 3.1 x10E3/uL [facility] MonocytesAbs 0.3 0.1 - 0.9 x10E3/uL [facility] Eos Abs 0.0 0.0 - 0.4 x10E3/uL [facility] Baso Abs 0.0 0.0 - 0.2 x10E3/uL [facility] Immature Granulocytes 0 Not Estab. % [facility] Immature Grans Abs 0.0 0.0 - 0.1 x10E3/uL [facility] Blood Venous blood specimen / Unknown 06/10/2025 10:16 AM EDT 06/10/2025 Narrative [facility] - 06/11/2025 6:07 AM EDT Performed at: - [facility] [address], [address], [place], [place] [id number] Airplane Cabin Attendant: Shaw Raygoza MD, Phone: [phone] Jona Henley MD LAB BLOOD ORDERABLES Final Res ult Performing Organization Address [facility]/ZIP Co de Phone Number [facility] * Ferritin (06/10/2025 10:16 AM EDT) [facility] Ferritin 22 15 - 150 ng/mL [facility] Blood Venous blood specimen / Unknown 06/10/2025 10:16 AM EDT 06/10/2025 Narrative [facility] - 06/11/2025 6:07 AM EDT Performed at: [address] [id number] Airplane Cabin Attendant: Roland Martinez PhD, Phone: [phone] us Jona Henley MD LAB BLOOD ORDERABLES Final Res ult Performing Organization Address [facility] Co de Phone Number [facility] * Lupus anticoagulant (06/10/2025 10:14 AM EDT) [facility] PTT-LA SCREEN 34.0 0.0 - 43.5 sec [facility] DRVVT SCREEN 40.0 0.0 - 47.0 sec [facility] LUPUS ANTICOAGULANT Comment: [facility] Comment:No lupus anticoagula nt was detected. Blood Venous blood specimen / Unknown 06/10/2025 10:14 AM EDT 06/10/2025 Narrative [facility] - 06/11/2025 3:07 PM EDT Performed at: [address] [id number] Airplane Cabin Attendant: Arnold Garcia MD, Phone: [phone] us Jona Henley MD LAB BLOOD ORDERABLES Final Res ult Performing Organization Address City/[facility]/ZIP Co de Phone Number [facility] * hCG, quantitative (06/10/2025 10:14 AM EDT) hCG Beta Subunit Qn <1 mIU/mL [facility] Comment: Female (Non-) 0 - 5 (Postmenopausal) 0 - 8 Female () Weeks of Gestation 3 6 - 71 4 10 - 750 5 393 - 8245 6 517 - 66231 7 [phone] 8 61199 -578800 9 78524 -[phone] 10 19721 -582494 12 00860 -263192 14 70542 - 11450 15 69281 - 76888 16 7853 - 02092 17 3952 - 44264 18 4276 - [phone] Adis ECLIA methodology Blood Venous blood specimen / Unknown 06/10/2025 10:14 AM EDT 06/10/2025 Narrative [facility] - 06/11/2025 3:07 PM EDT Performed at: [address] [facility] [address], [place], [place] [id number] Airplane Cabin Attendant: Shaw Raygoza MD, Phone: [phone] us Jona Henley MD LAB BLOOD ORDERABLES Final Res ult [facility] * (ABNORMAL) Urine Culture Clean Catch Reflex (06/10/2025 12:00 AM EDT) Pathologist [facility] Ur Cult 1 Enterococcus faecalis(A) [facility] Comment: Enterococci susceptible to penicillin are predictably susceptible to ampicillin, amoxicillin, ampicillin-sulbactam, amoxicillin-clavulanate, and piperacillin-tazobactam for rkx-vbvt-[id number] producing enterococci. (CLSI 2018) For Enterococcus species, aminoglycosides (except for high-level resistance screening), cephalosporins, clindamycin, and trimethoprim-sulfamethoxazole are not effective clinically. (CLSI, T913-C13, 2016) Greater than 100,000 colony forming units per mL Note: this isolate is vancomycin-susceptible. This information is provided for epidemiologic purposes only: vancomycin is not among the antibiotics recommended for therapy of urinary tract infections caused by Enterococcus. Ur Cult 2 Comment [facility] Comment: Mixed urogenital gera 10,000-25,000 colony forming units per mL Ur Cult Suscep Comment [facility] Comment: S = Susceptible; I = Intermediate; R = Resistant P = Positive; N = Negative MICS are expressed in micrograms per mL Antibiotic RSLT#1 RSLT#2 RSLT#3 RSLT#4 Ciprofloxacin S Levofloxacin S Nitrofurantoin S Penicillin S Tetracycline R Vancomycin S 06/10/2025 06/11/2025 Narrative [facility] - 06/13/2025 6:07 AM EDT Performed at: [address] [id number] Airplane Cabin Attendant: Roland Martinez PhD, Phone: [phone] us Jona Henley MD LAB URINE ORDERABLES Final Res ult Performing Organization Address City/[facility] Co de Phone Number [facility] * (ABNORMAL) Urine culture (06/10/2025 12:00 AM EDT) Urine Cult Rt Status Final report(A) [facility] Urine Urine specimen obtained by clean catch procedure / Unknown 06/10/2025 06/11/2025 Comment:Urine, Clean Catch P r Narrative [facility] - 06/13/2025 6:07 AM EDT Performed at: [address] [id number] Airplane Cabin Attendant: Roland Martinez PhD, Phone: [phone] us Jona Henley MD LAB MICROBIOLOGY - GENERAL ORD ERABLES Final Result Performing Organization Address City/[facility]/ZIP Co de Phone Number [facility] * US pelvis transvaginal (06/06/2025 9:06 AM EDT) Anatomical Region Laterality Modality Pelvis Ultrasound Study GA Study Date Study CHERYL Working CHERYL (Source) 06/06/2025 Narrative 06/16/2025 9:51 AM EDT Images from the original result were not included. Obstetrics & Gynecology [address] [address] [place] [address] - - - - - - - - - - - - - - - - - - - - - - - - - - - - - - - - - - - - - - - - - - - - - - - - - - - - - - - - - - - - - - - - - - Pelvic Ultrasound Patient name: Charis Lyons : 2000 (24 y.o.) Date of exam: 06/06/25 - - - - - - - - - - - - - - - - - - - - - - - - - - - - - - - Indication: pelvic pain, heavy bleeding with clots, dysmenorrhea Surgical History: D&C Method: Transvaginal ultrasound examination View: Sufficient - - - - - - - - - - - - - - - - - - - - - - - - - - - - - - - Measurements: Uterus: 9.5 x 6.1 x 3.7 cm Volume: 111.6 cm Endometrial thickness: 4.1 mm Right ovary: 4.0 x 2.3 x 1.5 cm Volume: 7.2 cm Left ovary: 4.6 x 1.8 x 1.9 cm Volume: 8.5 cm - - - - - - - - - - - - - - - - - - - - - - - - - - - - - - - Findings: Uterus: The uterus is normal in size and contour. Position: Anterverted Malformations: none Myometrium: The myometrium is rather inhomogenous in echotexture, without overt fibroid. Fibroid(s): no overt fibroid(s) Endometrium: The endometrium appears normal in contour and thickness, there are no overt polyps or submucosal fibroids visualized. Polyp(s): no overt polyp(s) Cervix: The cervix appears unremarkable. - - - - - - - - - - - - - - - - - - - - - - - - - - - - - - - Right ovary: Visualized Morphology: normal appearing Cyst(s): no cysts visualized Doppler: power doppler shows ovarian blood profusion Right adnexa: no overt adnexal mass - - - - - - - - - - - - - - - - - - - - - - - - - - - - - - - Left ovary: Visualized Morphology: normal appearing Cyst(s): no cysts visualized Doppler: power doppler shows ovarian blood profusion Left adnexa: no overt adnexal mass - - - - - - - - - - - - - - - - - - - - - - - - - - - - - - - Cul de Sac: no free fluid - - - - - - - - - - - - - - - - - - - - - - - - - - - - - - - - - - - - - - - - - - - - - - - - - - - - - - - - - - - - - - - - - - Impression: The uterus is normal in size and contour. The myometrium is rather inhomogenous in echotexture. The endometrium is normal in contour and thickness. Both ovaries are visible and appear normal in size and echotexture. There is no overt adnexal mass. There is no free fluid visible within the pelvis. - - - - - - - - - - - - - - - - - - - - - - - - - - - - - - - - - - - - - - - - - - - - - - - - - - - - - - - - - - - - - - - - - - Ordering/Reading Provider: Jona Henley M.D. Marketing/Sales Person: LETI us Jona Henley MD IMG US PROCEDURES Final Result * URINE CULTURE - [facility] (04/17/2025 1:15 AM EDT) [facility] UR[facility] - [facility] [place] Urine Culture - FR >100,000 colonies/ml mixed [facility] URINE CULTURE - FR bacterial skin contaminants [facility] URINE CULTURE - FR 2 Days [facility] URINE CULTURE - [facility] URINE CULTURE - FR Testing performed at [facility] URINE CULTURE - [place] [address] [place] [address] [facility] 04/17/2025 1:15 AM EDT 04/17/2025 1:30 AM EDT Narrative [facility] - 04/19/2025 2:51 PM EDT us Generic External Data Provider LAB BLOOD ORDERAB LES Final Result [facility] from Last 3 Months Insurance AN[place]M BCBS [place] Care Teams Acrobatic Dancer Relationship Specialty Start Date End Date Pete Thapa DO [address] [place] [address] PCP - General Family Medicine 02/14/23
--- OUTSIDE RECORDS SUMMARY | 2025-07-05 09:56 | XMS_ITS | Encounter Summary ---
Author Organization [facility] Address [id number] [address] [place] [address] Care Team Providers Care Lawyer Probate Name Role Phone Alanis Sky DO, George R Primary Care Provider + Encounter Details Date Type Department Care Team (Late Contact Info) Description 07/25/2023 Orders Only [facility] [address] [facility] [address] [place] [address] Sadia Rai, PA-C [address] [facility] [address] [place] [address] Social History Tobacco Use Types Packs/Day Years Used Date Smoking Tobacco: Never Smokeless Tobacco: Never Alcohol Use Standard Drinks/Week Comments No 0 (1 standard drink = 0.6 oz pur e alcohol) PHQ-2 Answer Date Recorded Total Score 0 06/19/2023 Childcare Answer Date Recorded Childcare Unknown 03/14/2019 Employment Answer Date Recorded Employment Unknown 03/14/2019 Purpose - Life Answer Date Recorded Purpose and direction in life Unknown Comments Yes Sex and Gender Information Value Date Recorded Sex Assigned at Female 12/13/2021 3:03 PM EST Legal Sex Female 7:57 AM EDT Gender Identity Female 12/13/2021 3:03 PM EST Sexual Orientation Not on file documented as of this encounter Plan of Treatment Upcoming Encounters Date Type Department Care Team (Late Contact Info) Description 09/29/2025 4:00 PM EST Telemedicine [facility], A Department of [facility] [address] [place] [address] Bari Caro MD [address], [facility] [address] [place] [address] documented as of this encounter Goals Goal Patient Goal Type Associated Problems Recent Progress Patient-Stated? Author Home General Yes Cherrie Ponce LSW Note: Evaluation of progress towards goal: Safe dc transition from hospital to home. documented as of this encounter Procedures Procedure Name Priority Date/Time Associated Diagnosis Comments COMPREHENSIVE HEARING TEST Routine 07/25/2023 3:05 PM EDT documented in this encounter Results * Comprehensive hearing test (07/25/2023 3:05 PM EDT) us Sadia Rai PA-C AUDIOLOGY SERVICES ORDERAB LES Final Result MANUALLY TRANSCRIBED RESULTS documented in this encounter Visit Diagnoses Not on filedocumented in this encounter Additional Health Concerns Assessment Noted Time PHQ-9 Depression Total Score: 0 06/19/20 23 12:12 PM EDT documented as of this encounter Care Teams Lawyer Probate Relationship Specialty Start Date End Date Pete Thapa Jr., DO [address] [place] [address] PCP - General Family Medicine 02/26/25 documented as of this encounter
--- OUTSIDE RECORDS SUMMARY | 2025-07-05 09:56 | XMS_ITS | Encounter Summary ---
Author Organization [facility] Address [facility] [place] [address] Care Team Providers Care Padder Name Role Phone Luke Kerry COONEY Unavailable Jona Henley MD Unavailable [phone] Source Comments In the event this information is protected by the Federal Confidentiality of Alcohol and Drug AbusePatient Records regulations: The Federal rules restrict any use of the information to criminally investigate or prosecute any alcohol or drug abuse patient.[facility] Encounter Details Date Type Department Care Team (Late st Contact Info) Description 07/19/2023 Get Medical Advice Dermatology [address] [place] [address] Mary Ann Ma MD [address] [place] [address] Ance products Social History Tobacco Use Types Packs/Day Years Used Date Smoking Tobacco: Never Smokeless Tobacco: Never Comments:no one in household smokes Alcohol Use Standard Drinks/Week Comments No 0 (1 standard drink = 0.6 oz pur e alcohol) PHQ-2 Answer Date Recorded PHQ-2 score 3 11/10/2022 Area Deprivation Index Answer Date Yannick rded National Score (1-100), lower number is lower ri sk 82 03/28/2023 State Score (1-10), lower number is lower risk 7 03/28/2023 Data from: https://www.neighborhoodatlas.medicine.[facility]/. Last address used for calculation [address] 03/28/2023 Comments No Sex and Gender Information Value [...] encounter Miscellaneous Notes * Telephone Encounter - Sheila Monson - 07/20/2023 9:23 AM EDT Pt states as her face is red and burning, she is hoping one of the products below can be consideredfor treatment now vs waiting until her 08/16 appointment. Pt uses [facility] in [place]. Please advise. Sheila Monson July 20, 2023 9:24 AM documented in this encounter Plan of Treatment Not on file documented as of this encounter Visit Diagnoses Not on filedocumented in this encounter Care Teams Padder Relationship Specialty Start Date End Date Crtalic-Kerry Coates RD [address] [address] Nutrition 04/04/23 Jona Henley MD [address] [facility] [address] [place] [address] Referring Hollow Handle Knife Assembler 06/11/25 documented as of this encounter
--- OUTSIDE RECORDS SUMMARY | 2025-07-05 09:56 | XMS_ITS | Encounter Summary ---
Author Organization [facility] Address [address] [place] [address] Care Team Providers Care Internet Webmaster Name Role Phone Pete Thapa DO Primary Care Provider [phone] Encounter Details Date Type Department Care Team (Late st Contact Info) Description 07/03/2024 Clinisync Result Encounter [facility] External Department Unsolicited Jona Vann MD [address] [place] [address] Social History Tobacco Use Types Packs/Day Years [...] friends or relatives? Patient declined 11/12/2023 Attends Hindu Services Not on file 11/12 Do you belong to any clubs o r organizations such as mormon groups, unions, fraternal or athletic groups, or school groups? Patient declined 11/12/2023 How often do you attend meet ings of the clubs or organizations you belong to? Patient declined 11/12/2023 Are you , , di vorced, , never , or living with a partner? Patient declined 11/12/2023 AUDIT-C Answer Date Recorded Q1: How often do you have a drink containing alcohol? Never 01/17/2024 Q2: How many drinks containi ng alcohol do you have on a typical day when you are drinking? Patient does not drink Q3: How often do you have si x or more drinks on one occasion? Never 01/17/2024 Overall Financial Resource Strain (CARDIA) Answe r Date Recorded How hard is it for you to pa y for the very basics like food, housing, medical care, and heating? Patient declined 11/12/2023 PHQ-2 Answer Date Recorded Patient Health Questionnaire-2 Score 0 11/14/2023 Exercise Vital Sign Answer Date Recorde d [...] needed for daily living? Patient declined 11/12/2023 [place] Depression Scale Answer Date Recorded [place] Depression Scale Total 0 08/10/2023 The thought of harming myself has occurred to me . 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 Not on file Not on file Not on file documented as of this encounter Miscellaneous Notes * Result Encounter Note - Jona Vann MD - 07/03/2024 5:57 AM EDT IP documented in this encounter Plan of Treatment Upcoming Encounters Date Type Department Care Team (Late st Contact Info) Description 07/15/2025 8:45 AM EDT Office Visit BRANDEN APONTE [address] [place] [address] Jona Vann MD [address] [place] [address] 08/14/2025 3:00 PM EST Office Visit BRANDEN APONTE [address] [place] [address] Jona Vann MD [address] [place] [address] documented as of this encounter Procedures Procedure Name Priority Date/Time Associated Diagnosis Comments US PELVIS W/ TRANSVAGINAL 07/03/2024 5:53 AM EDT documented in this encounter Results * US PELVIS W/ TRANSVAGINAL (07/03/2024 5:53 AM EDT) Anatomical Region Laterality Modality Other 07/03/2024 5:53 AM EDT Narrative 07/03/2024 5:55 AM EDT The [address] [address] Ultrasound Report Signed Patient: CHARIS ALLEN MR#: [id number] : 2000 Acct:[id number] Age/Sex: 23 / F ADM Date: 07/02/24 Loc: RAD Attending Dr: JONA VANN Ordering Physician: JONA VANN Date of Service: 07/02/24 Procedure(s): US pelvis w/ transvaginal Accession Number(s): [id number] cc: JONA VANN ; Diane THAPA [place] [address] Patient Name: CHARIS ALLEN MRN: [id number] date: 2000 Sex: F Assigned Patient [facility]: [facility] Current Patient Location: Accession/Order Number: [id number] Exam Date: 07/02/2024 10:56 Report Date: 07/03/2024 05:53 At the request of: JONA VANN Procedure: US pelvis w/ transvaginal EXAMINATION: US pelvis w/ transvaginal HISTORY: Pelvic Pain In Female R10.2 COMPARISON: Ultrasound pelvis 01/17/2024 TECHNIQUE: Transabdominal and/or transvaginal sonographic examination was performed as indicated by examination type. FINDINGS: UTERUS: Normal size and appearance. Uterus size: 7.7 x 3.3 x 4.9 cm ENDOMETRIUM: Normal homogeneous appearance. Endometrial thickness: 2 mm RIGHT OVARY: Normal size and appearance. Duplex Doppler demonstrates normal waveform and flow; resistive index 0.5. Ovary size: 3.0 x 1.2 x 2.1 cm LEFT OVARY: Normal size and appearance. Duplex Doppler demonstrates normal waveform and flow; resistive index 0.4. Ovary size: 3.0 x 1.8 x 1.9 cm CUL-DE-SAC: Unremarkable. No significant free fluid. BLADDER: Unremarkable. OTHER: None. US/US pelvis w/ transvaginal IMPRESSION: 1. Normal pelvic ultrasound. Electronically authenticated by: STEPHEN FAN Date: 07/03/2024 05:53 Dictated By: Stephen Fan M.D. Signed By: 07/03/24 0555 DD/ TD/TT: Quarry Extraction Worker: Procedure Note Radiology, Radiologist, MD - 07/03/2024 The [place] [id number] Ultrasound Report Signed Patient: CHARIS ALLEN EMR#: [id number] : 2000Acct:[id number] Age/Sex: 23 / FADM Date: 07/02/24 Loc: RAD Attending Dr: JONA VANN Ordering Physician: JONA VANN Date of Service: 07/02/24 Procedure(s): US pelvis w/ transvaginal Accession Number(s): [id number] cc: JONA VANN ; Diane THAPA The [place] [id number] Patient Name: CHARIS ALLEN MRN: [id number] date: 2000 Sex: F Assigned Patient Location: RAD Current Patient Location: Accession/Order Number: [id number] Exam Date: 07/02/2024 10:56 Report Date: 07/03/2024 05:53 At the request of: JONA VANN Procedure: US pelvis w/ transvaginal EXAMINATION: US pelvis w/ transvaginal HISTORY: Pelvic Pain In Female R10.2 COMPARISON: Ultrasound pelvis 01/17/2024 TECHNIQUE: Transabdominal and/or transvaginal sonographic examination was performed as indicated by examination type. FINDINGS: UTERUS: Normal size and appearance. Uterus size: 7.7 x 3.3 x 4.9 cm ENDOMETRIUM: Normal homogeneous appearance. Endometrial thickness: 2 mm RIGHT OVARY: Normal size and appearance. Duplex Doppler demonstratesnormal waveform and flow; resistive index 0.5. Ovary size: 3.0 x 1.2 x 2.1 cm LEFT OVARY: Normal size and appearance. Duplex Doppler demonstrates normal waveform and flow; resistive index 0.4. Ovary size: 3.0 x 1.8 x 1.9 cm CUL-DE-SAC: Unremarkable. No significant free fluid. BLADDER: Unremarkable. OTHER: None. US/US pelvis w/ transvaginal IMPRESSION: 1. Normal pelvic ultrasound. Electronically authenticated by: STEPHEN FAN Date: 07/03/2024 05:53 Dictated By: Stephen Fan M.D. Signed By:07/03/24 0555 DD/ TD/TT: Quarry Extraction Worker: us Jona Vann MD [facility] Final Result documented in this encounter Visit Diagnoses Not on filedocumented in this encounter Care Teams Internet Webmaster Relationship Specialty Start Date End Date Pete Thapa DO [address] [address] PCP - General Family Medicine 02/14/23 documented as of this encounter
--- OUTSIDE RECORDS SUMMARY | 2025-07-05 09:56 | XMS_ITS | Encounter Summary ---
Author Organization [facility] Address [address] [facility] [place] [address] Care Team Providers Care Justice Professor Name Role Phone Pete Thapa DO Primary Care Provider [phone] Encounter Details Date Type Department Care Team (Late st Contact Info) Description 10/10/2024 Abstract [facility] [place] [facility] [address] [facility] [address] [place] [phone] Pete Thapa DO [address] [facility] [address] [place] [address] Social History Tobacco Use Types Packs/Day Years [...] friends or relatives? Patient declined 11/12/2023 Attends Buddhist Services Not on file 11/12 Do you belong to any clubs o r organizations such as catholic groups, unions, fraternal or athletic groups, [...] Date Recorded Patient Health Questionnaire-2 Score 0 08/13/2024 Exercise Vital Sign Answer Date Recorde d [...] needed for daily living? Patient declined 11/12/2023 [place] Depression Scale Answer Date Recorded [place] Depression Scale Total 0 08/10/2023 The thought [...] [address] [place] [phone] Jona Henley MD [address] [place] [address] 08/14/2025 3:00 PM EST Office Visit BRANDEN APONTE [address] [place] [address] Jona Henley MD [address] [place] [address] documented as of this encounter Visit Diagnoses Not on filedocumented in this encounter Care Teams Justice Professor Relationship Specialty Start Date End Date Pete Thapa DO [address] [place] [address] PCP - General Family Medicine 02/14/23 documented as of this encounter
--- OUTSIDE RECORDS SUMMARY | 2025-07-05 09:56 | XMS_ITS | Encounter Summary ---
Author Organization [facility] Address [facility]-[id number] [address] [place] [address] Care Team Providers Care Teachers' Aide Name Role Phone Alanis Sky DO, George R Primary Care Provider + Encounter Details Date Type Department Care Team (Late st Contact Info) Description 11/18/2022 [facility] [address] [place] [phone] Mariajose Delgadillo PA [address] [place] [address] Social History Tobacco Use Types Packs/Day Years Used Date Smoking Tobacco: Never Smokeless Tobacco: Never Alcohol Use Standard Drinks/Week Comments No 0 (1 standard drink = 0.6 oz pur e alcohol) PHQ-2 Answer Date Recorded Total Score 0 08/12/2021 Childcare Answer Date Recorded Childcare Unknown 03/14/2019 Employment Answer Date Recorded Employment Unknown 03/14/2019 Purpose - Life Answer Date Recorded Purpose and direction in life Unknown Comments No Sex and Gender Information Value Date Recorded Sex Assigned at Female 12/13/2021 3:03 PM EST Legal Sex Female 7:57 AM EDT Gender Identity Female 12/13/2021 3:03 PM EST Sexual Orientation Not on file COVID-19 Exposure Response Date Recorded In the last month, have you been in contact with someone who was confirmed or suspected to have Coronavirus / COVID-19? No / Unsure 11/18/2022 9:34 AM EST documented as of this encounter Miscellaneous Notes * Telephone Encounter - JONAS [place] - 11/18/2022 10:41 AM EST Please get her most recent UAs and cultures from [facility] * Telephone Encounter - Yanna Joy LPN - 11/18/2022 10:41 AM EST : P They are still closed will call later today * Telephone Encounter - Yanna Joy LPN - 11/18/2022 10:41 AM EST [facility] told me that patient has to call they can not give us the information Called and asked patient to do so * Telephone Encounter - JONAS Living[place] - 11/18/2022 10:41 AM EST TiaraKatiana have never had this problem before. I just need her most recent UAs and cultures from [facility].Any ideas? Thank you * Telephone Encounter - Tiara Moncada LPN - 11/18/2022 10:41 AM EST I spoke to patient PCP office with [facility] in [place] at [phone] and they are faxing me the urine culture from 10/23/22 and I believe UA on same date. As soon as I get it I will send over to you. Thank you. documented in this encounter Plan of Treatment Upcoming Encounters Date Type Department Care Team (Late st Contact Info) Description 09/29/2025 4:00 PM EST Telemedicine [facility], A Department of [facility] [address] [facility] [address] [place] [address] Bari Caro MD [address] [facility] [address] [place] [address] documented as of this encounter Goals Goal Patient Goal Type Associated Problems Recent Progress Patient-Stated? Author Home General Yes Cherrie Ponce LSW Note: Evaluation of progress towards goal: Safe dc transition from hospital to home. documented as of this encounter Visit Diagnoses Not on filedocumented in this encounter Additional Health Concerns Assessment Noted Time PHQ-9 Depression Total Score: 0 08/12/20 21 9:29 AM EDT documented as of this encounter Care Teams Teachers' Aide Relationship Specialty Start Date End Date Pete Thapa Jr., [address] [place] [address] PCP - General Family Medicine 02/26/25 documented as of this encounter
--- OUTSIDE RECORDS SUMMARY | 2025-07-05 09:56 | XMS_ITS | Encounter Summary ---
Author Organization [facility] Address [facility] [place] [address] Care Team Providers Care Potato Chip Cooker Machine Name Role Phone CristobalTanishaJaxon Kerry COONEY Unavailable Jona Henley MD Unavailable [phone] Source Comments In the event this information is protected by the Federal Confidentiality of Alcohol and Drug AbusePatient Records regulations: The Federal rules restrict any use of the information to criminally investigate or prosecute any alcohol or drug abuse patient.[facility] Reason for Visit * Reason Onset Date Comments Refill Request 06/03/2025 Encounter Details Date Type Department Care Team (Late st Contact Info) Description 06/03/2025 Refill Dermatology [address] [place] [address] Mary Ann Ma MD [address] [place] [address] Refill Request Social History Tobacco Use [...] is lower risk 7 08/16/2023 Data from: https://www.neighborhoodatlas.[facility]/. Last address used for calculation [address] [...] Telephone Encounter - Lata Rider OCCA - 06/03/2025 5:17 PM EDT Patient phones requesting refills as follows: BERENICE: 08/16/23 Patient will need an appointment routed to mud mill tender. Requested Prescriptions Pending Prescriptions Disp Refills clindamycin (CLEOCIN) 1 % external solution 60 mL 0 Sig: APPLY TO AFFECTED AREAS ON FACE ONCE EVERYDAY Please review and advise. RONALD [place]en[place] documented in this encounter Plan of Treatment Not on file documented as of this encounter Visit Diagnoses Diagnosis Acne vulgaris Other acne documented in this encounter Care Teams Potato Chip Cooker Machine Relationship Specialty Start Date End Date Crtalic-Kerry Coates RD [address] [address] Nutrition 04/04/23 Jona Henley MD [address] [phone] Referring Packing Supervisor 06/11/25 documented as of this encounter
--- OUTSIDE RECORDS SUMMARY | 2025-07-05 09:56 | XMS_ITS | Encounter Summary ---
Author Organization [facility] Address [facility] [place] [address] Care Team Providers Care Chemical Test Engineer Name Role Phone Luke Kerry COONEY Unavailable Jona Henley MD Unavailable [phone] Source Comments In the event this information is protected by the Federal Confidentiality of Alcohol and Drug AbusePatient Records regulations: The Federal rules restrict any use of the information to criminally investigate or prosecute any alcohol or drug abuse patient.[facility] Encounter Details Date Type Department Care Team (Late st Contact Info) Description 05/17/2022 Get Medical Advice Dermatology [address] [place] [address] Mary Ann Ma MD [address] [email or web address] [place] [place] [address] Ance Social History Tobacco Use Types Packs/Day Years Used Date Smoking Tobacco: Never Smokeless Tobacco: Never Comments:no one in household smokes Alcohol Use Standard Drinks/Week Comments No 0 (1 standard drink = 0.6 oz pur e alcohol) PHQ-2 Answer Date Recorded PHQ-2 score 3 04/04/2022 Area Deprivation Index Answer Date Yannick rded National Score (1-100), lower number is lower ri sk 65 04/04/2022 State Score (1-10), lower number is lower risk N ot on file 04/04/2022 Data from: https://www.neighborhoodatlas.medicine.[facility]/. Last address used for calculation [address] 04/04/2022 Comments No Sex and Gender Information Value [...] on filedocumented in this encounter Care Teams Chemical Test Engineer Relationship Specialty Start Date End Date Crtali-Kerry Coates RD [address] [address] Nutrition 04/04/23 Jona Henley MD [address] [email or web address] [address] [place] [address] Referring Car Servicer 06/11/25 documented as of this encounter
--- OUTSIDE RECORDS SUMMARY | 2025-07-05 09:56 | XMS_ITS | Encounter Summary ---
Author Organization [facility] Address [facility] [place] [address] Care Team Providers Care Psychologist Educational Name Role Phone Luke Kerry COONEY Unavailable Jona Henley MD Unavailable [phone] Source Comments In the event this information is protected by the Federal Confidentiality of Alcohol and Drug AbusePatient Records regulations: The Federal rules restrict any use of the information to criminally investigate or prosecute any alcohol or drug abuse patient.[facility] Encounter Details Date Type Department Care Team (Late st Contact Info) Description 08/25/2022 Patient Msg Dermatology [address] [place] [address] Mary Ann Ma MD [address] [address] acne medication side effect Social History Tobacco Use Types Packs/Day Years [...] N ot on file 04/04/2022 Data from: https://www.neighborhoodatlas.medicine.[facility]/. Last address used for calculation [address] [...] suspected to have Coronavirus/COVID-19? No / Unsure 08/17/2022 7:27 AM EST documented as of this encounter Functional Status [...] on filedocumented in this encounter Care Teams Psychologist Educational Relationship Specialty Start Date End Date Crtmartina-Kerry Coates RD [address] [place] [address] Nutrition 04/04/23 Jona Henley MD [address] [facility] [address] [place] [address] Referring Painter Spring 06/11/25 documented as of this encounter
--- OUTSIDE RECORDS SUMMARY | 2025-07-05 09:56 | XMS_ITS | Encounter Summary ---
Author Organization [facility] Address [facility] [place] [address] Care Team Providers Care Forklift Driver Name Role Phone Luke Kerry COONEY Unavailable [phone] Jona Henley MD Unavailable Source Comments In the event this information is protected by the Federal Confidentiality of Alcohol and Drug AbusePatient Records regulations: The Federal rules restrict any use of the information to criminally investigate or prosecute any alcohol or drug abuse patient.[facility] Encounter Details Date Type Department Care Team (Late st Contact Info) Description 09/12/2021 Get Medical Advice Dermatology [address] [place] [address] Mary Ann Ma MD [address] [facility] [facility] [place] [address] Ance Social History Tobacco Use [...] N ot on file 09/14/2020 Data from: https://www.neighborhoodatlas.medicine.[facility]/. Last address used for calculation Not [...] have Coronavirus / COVID-19? No / Unsure 08/30/2021 2:27 PM EST documented as of this encounter Functional [...] on filedocumented in this encounter Care Teams Forklift Driver Relationship Specialty Start Date End Date Crtmildred-Kerry Coates [address] [address] Nutrition 04/04/23 Jona Henley MD [address] [facility] [address] [place] [address] Referring Brush Machine Setter 06/11/25 documented as of this encounter
--- OUTSIDE RECORDS SUMMARY | 2025-07-05 09:56 | XMS_ITS | Clinical Summary ---
Author Organization [facility] Address [facility] [place] [address] Care Team Providers Care Commercial Loan Reviewer Name Role Phone Luke Kerry KOCH Unavailable [phone] Jona Henley MD Unavailable [phone] Allergies Active Allergy Reactions Criticality Noted Date Comments Doxycycline Other: See Comments 11/29/2021 dizziness Penicillin G Sodium Rash 11/29/2021 Cyproheptadine Diarrhea,Other: See Comments High 08/02/2013 Passing out, turning white. Seasonal Allergies 12/24/2009 Medications * This document contains information received from the source organization and may not represent a complete record from that organization. pimecrolimus (ELIDEL) 1 % creamIndication s:Other eczema APPLY 2 TIMES DAILY TO FACIAL AREAS NEEDED FOR RASH/ITCHING 30 g 3 2 Active Additional Information Patient not taking.Reported on 11/21/2023 Sulfacetamide Sodium-Sulfur 10-5 % (w/w) lotnIndications :Acne vulgaris Apply to all acne-prone areas twice daily 60 g 5 3 Active Additional Information Patient not taking.Reported on 11/21/2023 adapalene (DIFFERIN) 0.1 % gelIndications: Acne vulgaris Apply to all acne-prone areas at bedtime. 45 g 5 3 Active Additional Information Patient not taking.Reported on 11/21/2023 methylphenidate HCl (CONCERTA ORAL) Take 18 mg by mouth once daily. Active clindamycin (CLEOCIN) 1 % external solutionIndicat ions:Acne vulgaris APPLY TO AFFECTED AREAS ON FACE ONCE EVERYDAY 60 mL Active Active Problems Problem Noted Date Diagnosed Date Tinnitus, right ear 09/15/2022 Conductive hearing loss of r ight ear with unrestricted hearing of left ear 01/11/2017 Conductive hearing loss in right ear 11/17/2015 Abdominal pain 08/19/2015 Generalized abdominal pain 08/04/2015 Hearing loss due to cerumen impaction 07/13/2015 Retained myringotomy tube in left ear 07/13/2015 Attention deficit hyperactiv ity disorder (ADHD), combined type 07/13/2015 Overview (07/31/2015): 2-3 years ago was seeing counselor. Impulsive behavior as a kid: would run away. Was on Concerta 2-3 yrs ago. Was losing weight on this. Did help a lot per parents with cooperation, grades, focus. Anxiety 08/09/2013 Overview (07/31/2015): Was on meds in past ? Name. [...] Otitis media with effusion 12/24/2009 0 03/15/2010 Encounters Date Type Department Care Team Description 06/11/2025 Patient Msg Referring Physician [address] [place] [address] Provider, [facility]cf Referral 06/03/2025 Refill Dermatology [address] [place] [address] Mary Ann Ma MD Refill Request 04/28/2025 Refill Dermatology [address] [place] [address] Mar yAnn Ma MD Refill Request 04/24/2025 Patient [facility] HB-3 [address] [place] [address] Kerry Choe RP At your next appointment, choose [facility]. from Last 3 Months Immunizations Immunization Administration Dates Next Due Haemophilus influenzae b (Hb OC) vaccine, 4-dose series (HIBTITER) 04/21/2004,04/21/2003,02/17/2003,12/17 diphtheria tetanus pertussis (DTaP) vaccine, pediatric (INFANRIX) 01/30/2008,11/08/2004,04/21/2003,02/17,2002 hepatitis A (HepA) vaccine, 2-dose series, ped/adol (HAVRIX-PEDS, VAQTA-PEDS) 12/15/2016 hepatitis B (HepB) vaccine, 3-dose series, age 0 yr - 19 yr (ENGERIX B-PEDS, RECOMBIVAX HB-PEDS) 04/21/2003,2002,2002 human papillomavirus (HPV9) vaccine, 9 valent (GARDASIL 9) 12/15/2016 influenza (IIV3) vaccine, ag e 6 mo - 35 mo, trivalent (AFLURIA) 10/15/2003,09/12/2003 influenza (IIV3) vaccine, ag e 6 mo - 35 mo, trivalent, PF (AFLURIA) 08/31/2004 influenza (IIV4) vaccine, ag e 6 mo - 64 yr, quadrivalent, PF (AFLURIA, FLUARIX, FLULAVAL, FLUZONE) 07/08/2015 influenza vaccine, unspecifi ed formulation 07/30/2013,07/28/2011,08/24/2010,07/22 measles mumps rubella (MMR) vaccine (M-M-R II, PRIORIX) 01/30/2008,04/21/2004 meningococcal (MenACWY-D) va ccine, quadrivalent (MENACTRA) 07/31/2015 pneumococcal conjugate (PCV) vaccine, unspecified formulation 04/21/2004,09/09/2003,04/21/2003,12/17 poliovirus (IPV) vaccine, in activated (IPOL) 01/30/2008,09/09/2003,02/17/2003,12/17 varicella (HUSSAIN) vaccine (VARIVAX) 11/08/2004 Family History Medical History Relation Comments degenerati disc disease [Other] Father lactose intolerant [Other] Father Kidney Disease Maternal Aunt kidney stones ovarian cysts [Other] Maternal Aunt GERD [Other] Mother lactose intolerance [Other] Mother ovarian cysts [Other] Mother Relation Status Comments Father Maternal Aunt Mother Social History Tobacco Use Types Packs/Day Years Used Date Smoking Tobacco: Never Smokeless Tobacco: Never Tobacco Cessation:Counseling Given: Not Answered Comments:no one in household smokes Alcohol Use Standard Drinks/Week Comments No 0 (1 standard drink = 0.6 oz pur e alcohol) PHQ-2 Answer Date Recorded PHQ-2 score 0 07/23/2024 Area Deprivation Index Answer Date Yannick rded National Score (1-100), lower number is lower ri sk 82 08/16/2023 State Score (1-10), lower number is lower risk 7 08/16/2023 Data from: https://www.neighborhoodatlas.medicine.[facility]/. Last address used for calculation [address] 08/16/2023 Comments No Sex and Gender Information Value Date Recorded Sex Assigned at Not on file Legal Sex Female 8:28 AM EST Gender Identity Not on file Sexual Orientation Not on file Last Filed Vital Signs Vital Sign Reading Time Taken Comments Blood Pressure 112/67 11/14/2022 11:32 AM EST Pulse 85 11/14/2022 11:32 AM EST Temperature 36.3 C (97.3 F) 03/03/2017 2:17 PM EDT Respiratory Rate 20 12/08/2016 3:59 PM EST Oxygen Saturation 100% 11/14/2022 11: 32 AM EST Inhaled Oxygen Concentration - - Weight 88.8 kg (195 lb 12.8 oz) 06/01/2023 9:06 AM EDT Height 167.6 cm (5' 6 ) 06/01/2023 9:06 AM EDT Body Mass Index 31.6 06/01/2023 9:06 AM EDT Plan of Treatment Health Maintenance Due Date Last Done Comments Peds To Adult Transition Ini tial Discussion 2014 Peds To Adult Transition Becca ual Assessment 2016 Meningococcal B Vaccine (1 o f 2 - Standard) 2018 Chlamydia Screening (18-24) 2020 Depression Screening 2020 GC (Gonorrhea) Screening (18-24) 2020 HIV Screening 2020 Hepatitis C Screening 2020 Cervical Cancer Screening 2023 Influenza Vaccine (#1) 2025 , 06/23/2023, 08/03/2022, Additional history exists DTaP,Tdap,Td Vaccine (7 - Td or Tdap) 06/25/2025 06/25/2015, 01/30/2008, 11/08/2004, Additional history exists Hepatitis B Vaccine Completed 04/21/2003, 2002, 2002 HPV Vaccine Completed 07/13/2017, 12/15/2016 Medical Devices Implanted Type Area Strategic Planning Director Device Identifier Shelf Expiration Date Model / Serial / Lot Tube Vent 4.8mm 1.[facility] [id number] Implanted:Qty : 2 on 11/14/2011 at [facility] Implant Bilateral: Ear - Tympanic Membrane G[employer]US [employer] ENT 08/08/2019 [id number] / / [id number] Tube Malena Bobbin Vent [id number] - [id number] Implanted:Qty : 2 on 02/17/2010 at [facility] PE Tubes Bilateral: Ear - Tympanic Membrane 10/09/2014 [id number] / / [id number] Insurance [facility] MEDICAID [facility] Care Teams Commercial Loan Reviewer Relationship Specialty Start Date End Date Crtalic-Kerry Coates RD [address] [address] Nutrition 04/04/23 Jona Henley MD [address] [place] [address] Referring Business Services Associate 06/11/25
--- OUTSIDE RECORDS SUMMARY | 2025-07-05 09:56 | XMS_ITS | Encounter Summary ---
Author Organization [facility] Address [address] [place] [address] Care Team Providers Care Glass Technician Name Role Phone Pete Thapa DO Primary Care Provider [phone] Encounter Details Date Type Department Care Team (Late st Contact Info) Description 08/15/2023 Abstract NOMEfe Pena FADI [address] [facility] 210 [place] [phone] Jona Henley MD [address] [facility] 210 [place] [address] Social History Tobacco Use Types Packs/Day Years Used Date Smoking Tobacco: Never Smokeless Tobacco: Never Alcohol Use Standard Drinks/Week Comments Not Currently 0 (1 standard drink = 0.6 oz pur e alcohol) caffeine: none PHQ-2 Answer Date Recorded Patient Health Questionnaire-2 Score 0 06/29/2023 [place] Depression Scale Answer Date Recorded [place] Depression Scale Total 0 08/10/2023 The thought [...] suspected to have Coronavirus/COVID-19? No / Unsure 08/07/2023 9:07 AM EDT documented as of this encounter Plan of Treatment Upcoming Encounters Date Type Department Care Team (Late st Contact Info) Description 07/15/2025 8:45 AM EDT Office Visit BRANDEN BRIGGSKALE [address] [place] [address] Jona Henley MD [address] [place] [address] 08/14/2025 3:00 PM EST Office Visit BRANDEN Pena FADI [address] [place] [address] Jona Henley MD [address] [place] [address] documented as of this encounter Visit Diagnoses Not on filedocumented in this encounter Care Teams Glass Technician Relationship Specialty Start Date End Date Pete Thapa DO [address] [place] [address] PCP - General Family Medicine 02/14/23 documented as of this encounter
--- OUTSIDE RECORDS SUMMARY | 2025-07-05 09:56 | XMS_ITS | Encounter Summary ---
Author Organization [facility] Address [address] [place] [address] Care Team Providers Care Mash Filter Operator Name Role Phone Pete Thapa DO Primary Care Provider [phone] Encounter Details Date Type Department Care Team (Late st Contact Info) Description 01/18/2024 Clinisync Result Encounter [facility] External Department Unsolicited Jona Vann MD [address] [place] [address] Social History Tobacco Use Types Packs/Day Years [...] any clubs o r organizations such as oriental orthodox groups, unions, fraternal or athletic groups, or [...] needed for daily living? Patient declined 11/12/2023 [place] Depression Scale Answer Date Recorded [place] Depression Scale Total 0 08/10/2023 The thought [...] [address] [place] [phone] Jona Vann MD [address] [place] [address] 08/14/2025 3:00 PM EST Office Visit BRANDEN APONTE [address] [place] [address] Jona Vann MD [address] [place] [address] documented as of this encounter Procedures Procedure Name Priority Date/Time Associated Diagnosis Comments US PELVIS W/ TRANSVAGINAL 01/18/2024 7:45 AM EDT documented in this encounter Results * US PELVIS W/ TRANSVAGINAL (01/18/2024 7:45 AM EDT) Anatomical Region Laterality Modality Other 01/18/2024 7:45 AM EDT Narrative 01/18/2024 7:47 AM EDT The [address] [address] Ultrasound Report Signed Patient: CHARIS ALLEN MR#: [id number] : 2000 Acct:[id number] Age/Sex: 23 / F ADM Date: 01/17/24 Loc: US Attending Dr: JONA VANN Ordering Physician: JONA VANN Date of Service: 01/17/24 Procedure(s): US pelvis w/ transvaginal Accession Number(s): [id number] cc: JONA VANN ; Diane THAPA The [place] [address] Patient Name: CHARIS ALLEN MRN: [facility]:[id number] date: 2000 Sex: F Assigned Patient Location: US Current Patient Location: Accession/Order Number: [id number] Exam Date: 01/17/2024 17:40 Report Date: 01/18/2024 07:45 At the request of: JONA VANN Procedure: US pelvis w/ transvaginal EXAM: Pelvic ultrasound HISTORY: . Amenorrhea,N91.2; Pelvic cramping,R10.2 . COMPARISON: None. TECHNIQUE: Transabdominal and transvaginal scanning was performed FINDINGS: Scanning of the pelvis demonstrates uterus to be anteverted and measures 9.2 x 3.4 x 5.9 cm. Endometrial complex measures 4 mm. Right ovary measures 3.9 x 1.7 x 2.3 cm. Color-flow is noted. No masses are noted. Left ovary measures 3.1 x 1.5 x 2.2 cm. Color-flow is noted. No masses are noted. There is a small amount of fluid in the cul-de-sac. US/US pelvis w/ transvaginal IMPRESSION: 1. Normal-appearing uterus and endometrial complex. 2. Normal ovaries. 3. Small amount of fluid in the cul-de-sac. Electronically authenticated by: CADEN MONSON Date: 01/18/2024 07:45 Dictated By: Caden Monson M.D. Signed By: 01/18/24 0747 DD/ 0745 TD/TT: Supervisor Bakery Sanitation: Procedure Note Radiology, Radiologist, MD - 01/18/2024 [place] [address] Ultrasound Report Signed Patient: CHARIS ALLEN EMR#: [id number] : 2000Acct:[id number] Age/Sex: 23 / FADM Date: 01/17/24 Loc: US Attending Dr: JONA VANN Ordering Physician: JONA VANN Date of Service: 01/17/24 Procedure(s): US pelvis w/ transvaginal Accession Number(s): [id number] cc: JONA VANN ; Diane THAPA [place] [id number] Patient Name: CHARIS ALLEN MRN: [facility]:[id number] date: 2000 Sex: F Assigned Patient Location: US Current Patient Location: Accession/Order Number: [id number] Exam Date: 01/17/2024 17:40 Report Date: 01/18/2024 07:45 At the request of: JONA VANN Procedure: US pelvis w/ transvaginal EXAM: Pelvic ultrasound HISTORY: . Amenorrhea,N91.2; Pelvic cramping,R10.2 . COMPARISON: None. TECHNIQUE: Transabdominal and transvaginal scanning was performed FINDINGS: Scanning of the pelvis demonstrates uterus to be anteverted and measures 9.2 x 3.4 x 5.9 cm. Endometrial complex measures 4 mm. Right ovary measures 3.9 x 1.7 x 2.3 cm. Color-flow is noted. No massesare noted. Left ovary measures 3.1 x 1.5 x 2.2 cm. Color-flow is noted. No masses are noted. There is a small amount of fluid in the cul-de-sac. US/US pelvis w/ transvaginal IMPRESSION: 1. Normal-appearing uterus and endometrial complex. 2. Normal ovaries. 3. Small amount of fluid in the cul-de-sac. Electronically authenticated by: CADEN MONSON Date: 01/18/2024 07:45 Dictated By: Caden Monson M.D. Signed By:01/18/2447 DD/ TD/TT: Supervisor Bakery Sanitation: us Jona Vann MD [facility] Final Result documented in this encounter Visit Diagnoses Not on filedocumented in this encounter Care Teams Mash Filter Operator Relationship Specialty Start Date End Date Pete Thapa DO [address] [place] [address] PCP - General Family Medicine 02/14/23 documented as of this encounter
--- OUTSIDE RECORDS SUMMARY | 2025-07-05 09:56 | XMS_ITS | Encounter Summary ---
Author Organization [facility] Address [address] [place] [address] Care Team Providers Care Radiophone Operator Name Role Phone Pete Thapa DO Primary Care Provider [phone] Reason for Visit * Reason Onset Date Comments Med Refill 01/15/2025 Encounter Details Date Type Department Care Team (Late st Contact Info) Description 01/15/2025 Refill [facility] [place] [facility] [address] [facility] [address] [place] [phone] Pete Thapa DO [address] [facility] [address] [place] [address] Attention deficit hyperactivity disorder (ADHD), combined type Social History Tobacco Use Types Packs/Day Years [...] friends or relatives? Patient declined 11/12/2023 Attends Worship Services Not on file 11/12 Do you belong to any clubs o r organizations such as christianity groups, unions, fraternal or athletic groups, or [...] Date Recorded Patient Health Questionnaire-2 Score 0 10/23/2024 Exercise Vital Sign Answer Date Recorde d [...] needed for daily living? Patient declined 11/12/2023 [place] Depression Scale Answer Date Recorded [place] Depression Scale Total 0 08/10/2023 The thought [...] encounter Miscellaneous Notes * Telephone Encounter - Pete Thapa DO - 01/15/2025 9:10 AM EDT Too soon documented in this encounter Plan of Treatment Upcoming Encounters Date Type Department Care Team (Late st Contact Info) Description 07/15/2025 8:45 AM EDT Office Visit NOMEfe APONTE [address] [place] [address] Jona Henley MD [address] [place], [place] [phone] 08/14/2025 3:00 PM EST Office Visit NOMEfe APONTE [address] [place] [phone] Jona Henley MD [address] [place] [address] documented as of this encounter Visit Diagnoses Diagnosis Attention deficit hyperactivity disorder (ADHD), combined type documented in this encounter Care Teams Radiophone Operator Relationship Specialty Start Date End Date Pete Thapa DO [address] [place] [address] PCP - General Family Medicine 02/14/23 documented as of this encounter
--- OUTSIDE RECORDS SUMMARY | 2025-07-05 09:56 | XMS_ITS | Encounter Summary ---
Author Organization [facility] Address [address] [place] [address] Care Team Providers Care Civil Preparedness Officer Name Role Phone Pete Thapa DO Primary Care Provider [phone] Encounter Details Date Type Department Care Team (Late st Contact Info) Description 08/15/2023 Abstract NOMEfe Pena FADI [address] [facility] 210 [place] [phone] Jona Henley MD [address] [facility] [address] [place] [address] Social History Tobacco Use Types Packs/Day Years Used Date Smoking Tobacco: Never Smokeless Tobacco: Never Alcohol Use Standard Drinks/Week Comments Not Currently 0 (1 standard drink = 0.6 oz pur e alcohol) caffeine: none PHQ-2 Answer Date Recorded Patient Health Questionnaire-2 Score 0 06/29/2023 [place] Depression Scale Answer Date Recorded [place] Depression Scale Total 0 08/10/2023 The thought [...] [address] [place] [phone] Jona Henley MD [address] [place] [address] 08/14/2025 3:00 PM EST Office Visit BRANDEN Pena FADI [address] [place] [phone] Jona Henley MD [address] [place] [address] documented as of this encounter Visit Diagnoses Not on filedocumented in this encounter Care Teams Civil Preparedness Officer Relationship Specialty Start Date End Date Pete Thapa DO [address] [place] [address] PCP - General Family Medicine 02/14/23 documented as of this encounter
--- OUTSIDE RECORDS SUMMARY | 2025-07-05 09:56 | XMS_ITS | Encounter Summary ---
Author Organization [facility] Address [facility] [place] [address] Care Team Providers Care Manager Home Healthcare Name Role Phone Luke Kerry COONEY Unavailable [phone] Jona Henley MD Unavailable [phone] Source Comments In the event this information is protected by the Federal Confidentiality of Alcohol and Drug AbusePatient Records regulations: The Federal rules restrict any use of the information to criminally investigate or prosecute any alcohol or drug abuse patient.[facility] Encounter Details Date Type Department Care Team (Late st Contact Info) Description 07/09/2021 Get Medical Advice Dermatology [address] [place] [address] Mary Ann Ma MD [address] [facility] [place] [address] RE: Test Result Question Social [...] on file 09/14/2020 Data from: https://www.neighborhoodatlas.medicine.[facility]/. Last address used for calculation Not [...] Assessment Author No 08/21/2015 10:22 AM Cas eHrnandez RN * Are you blind or do [...] on filedocumented in this encounter Care Teams Manager Home Healthcare Relationship Specialty Start Date End Date Crtalic-Kerry Coates RD [address] [address] Nutrition 04/04/23 Jona Henley MD [address] [facility] 210 [place] [address] Referring Oxidation Operator 06/11/25 documented as of this encounter
--- OUTSIDE RECORDS SUMMARY | 2025-07-05 09:56 | XMS_ITS | Encounter Summary ---
Author Organization [facility] Address [facility] [place] [address] Care Team Providers Care Director Of Partner Marketing Name Role Phone Cristobal-Jaxon Kerry COONEY Unavailable Jona Henley MD Unavailable [phone] Source Comments In the event this information is protected by the Federal Confidentiality of Alcohol and Drug AbusePatient Records regulations: The Federal rules restrict any use of the information to criminally investigate or prosecute any alcohol or drug abuse patient.[facility] Encounter Details Date Type Department Care Team (Late st Contact Info) Description 07/06/2021 Get Medical Advice Dermatology [address] [place] [address] Mary Ann Ma MD [address] [facility] [place] [address] RE: Test Result Question Social [...] on file 09/14/2020 Data from: https://www.neighborhoodatlas.medicine.[facility]/. Last address used for calculation Not [...] in this encounter Care Teams Director Of Partner Marketing Relationship Specialty Start Date End Date Crtalic-Kerry Coates RD [address] [address] Nutrition 04/04/23 Jona Henley MD [address] [facility] 210 [place] [address] Referring Business Administration Professor 06/11/25 documented as of this encounter
--- OUTSIDE RECORDS SUMMARY | 2025-07-05 09:56 | XMS_ITS | Encounter Summary ---
Author Organization [facility] Address [facility] [place] [address] Care Team Providers Care Underwear Cutter Name Role Phone Luke Kerry COONEY Unavailable Jona Henley MD Unavailable [phone] Source Comments In the event this information is protected by the Federal Confidentiality of Alcohol and Drug AbusePatient Records regulations: The Federal rules restrict any use of the information to criminally investigate or prosecute any alcohol or drug abuse patient.[facility] Encounter Details Date Type Department Care Team (Late st Contact Info) Description 07/23/2024 Patient Msg Dermatology [address] [place] [address] Mary Ann Ma MD [address] [facility] [place] [address] Appointment Request Social History Tobacco Use Types Packs/Day [...] is lower risk 7 08/16/2023 Data from: https://www.neighborhoodatlas.medicine.[facility]/. Last address used for calculation [address] [...] on filedocumented in this encounter Care Teams Underwear Cutter Relationship Specialty Start Date End Date Crtalic-Kerry Coates RD [address] [address] Nutrition 04/04/23 Jona Henley MD [address] [facility] 210 [place] [address] Referring Service Technician 06/11/25 documented as of this encounter
--- OUTSIDE RECORDS SUMMARY | 2025-07-05 09:56 | XMS_ITS | Encounter Summary ---
Author Organization [facility] Address [facility] [place] [address] Care Team Providers Care Project Development Coordinator Name Role Phone Luke Kerry COONEY Unavailable [phone] Jona Henley MD Unavailable [phone] Source Comments In the event this information is protected by the Federal Confidentiality of Alcohol and Drug AbusePatient Records regulations: The Federal rules restrict any use of the information to criminally investigate or prosecute any alcohol or drug abuse patient.[facility] Encounter Details Date Type Department Care Team (Late st Contact Info) Description 11/18/2024 Patient Msg Dermatology [address] [place] [address] Mary Ann Ma MD [address] [facility] [place] [address] Appointment Request Social History Tobacco [...] is lower risk 7 08/16/2023 Data from: https://www.neighborhoodatlas.medicine.[facility]/. Last address used for calculation [...] on filedocumented in this encounter Care Teams Project Development Coordinator Relationship Specialty Start Date End Date Crtalic-Kerry Coates RD [address] [address] Nutrition 04/04/23 Jona Henley MD [address] [facility] [address] [place] [address] Referring Hall Cleaner 06/11/25 documented as of this encounter
--- OUTSIDE RECORDS SUMMARY | 2025-07-05 09:56 | XMS_ITS | Encounter Summary ---
Author Organization [facility] Address [address] [place] [address] Care Team Providers Care Hospital Staff Pharmacist Name Role Phone Cristobal-Kerry Coates RD Unavailable Jona Henley MD Unavailable [phone] Source Comments In the event this information is protected by the Federal Confidentiality of Alcohol and Drug AbusePatient Records regulations: The Federal rules restrict any use of the information to criminally investigate or prosecute any alcohol or drug abuse patient.[facility] Encounter Details Date Type Department Care Team (Late st Contact Info) Description 06/11/2025 Patient Msg Referring Physician [address] [place] [address] Provider, Ccf Referral Social History Tobacco Use Types Packs/Day Years [...] is lower risk 7 08/16/2023 Data from: https://www.neighborhoodatlas.medicine.[facility]/. Last address used for calculation 26 [...] on filedocumented in this encounter Care Teams Hospital Staff Pharmacist Relationship Specialty Start Date End Date Crtalic-Kerry Coates RD [address] [address] Nutrition 04/04/23 Jona Henley MD [address] [facility] [address] [facility] 210 [place] [address] Referring Tobacco Grader 06/11/25 documented as of this encounter
--- OUTSIDE RECORDS SUMMARY | 2025-07-05 09:56 | XMS_ITS | Encounter Summary ---
Author Organization [facility] Address [address] [place] [address] Care Team Providers Care Stone Belt Sander Name Role Phone Pete Thapa DO Primary Care Provider Encounter Details Date Type Department Care Team (Late st Contact Info) Description 08/14/2023 Abstract NOMEfe Pena FADI [address] [facility] 210 [place] [phone] Jona Henley MD [address] [facility] [address] [place] [address] Social History Tobacco Use Types Packs/Day Years Used Date Smoking Tobacco: Never Smokeless Tobacco: Never Alcohol Use Standard Drinks/Week Comments Not Currently 0 (1 standard drink = 0.6 oz pur e alcohol) caffeine: none PHQ-2 Answer Date Recorded Patient Health Questionnaire-2 Score 0 06/29/2023 [place] Depression Scale Answer Date Recorded [place] Depression Scale Total 0 08/10/2023 The thought [...] [address] [place] [address] Jona Henley MD [address] [place] [address] 08/14/2025 3:00 PM EST Office Visit BRANDEN Pena FADI [address] [place] [address] Jona Henley MD [address] [place] [address] documented as of this encounter Visit Diagnoses Not on filedocumented in this encounter Care Teams Stone Belt Sander Relationship Specialty Start Date End Date Pete Thapa DO [address] [place] [address] PCP - General Family Medicine 02/14/23 documented as of this encounter
--- OUTSIDE RECORDS SUMMARY | 2025-07-05 09:56 | XMS_ITS | Encounter Summary ---
Author Organization [facility] Address [facility] [place] [address] Care Team Providers Care Mosaic Technician Name Role Phone Kerry Butler RD Unavailable Jona Henley MD Unavailable Source Comments In the event this information is protected by the Federal Confidentiality of Alcohol and Drug AbusePatient Records regulations: The Federal rules restrict any use of the information to criminally investigate or prosecute any alcohol or drug abuse patient.[facility] Encounter Details Date Type Department Care Team (Late st Contact Info) Description 07/23/2024 Patient Msg Podiatry [address] [place] [address] Ángela Mancera, DPM [address] [place] [address] Appointment Request Social History Tobacco Use Types [...] is lower risk 7 08/16/2023 Data from: https://www.neighborhoodatlas.[facility]/. Last address used for calculation 26 [...] on filedocumented in this encounter Care Teams Mosaic Technician Relationship Specialty Start Date End Date Crtali-Kerry Coates RD [address] [address] Nutrition 04/04/23 Jona Henley MD [address] [facility] 210 [place] [address] Referring Nuclear Instructor 06/11/25 documented as of this encounter
--- OUTSIDE RECORDS SUMMARY | 2025-07-05 09:56 | XMS_ITS | Encounter Summary ---
Author Organization [facility] Address [address] [facility] [place] [address] Care Team Providers Care Tsa Screener Name Role Phone Pete Thapa DO Primary Care Provider [phone] Encounter Details Date Type Department Care Team (Late st Contact Info) Description 08/27/2024 Abstract [facility] [place] [facility] [address] [facility] [address] [place] [address] Pete Thapa DO [address] [facility] [address] [place] [address] Social History Tobacco Use Types Packs/Day Years [...] friends or relatives? Patient declined 11/12/2023 Attends Anabaptism Services Not on file 11/12 Do you belong to any clubs o r organizations such as baptist groups, unions, fraternal or athletic groups, or [...] needed for daily living? Patient declined 11/12/2023 [place] Depression Scale Answer Date Recorded [place] Depression Scale Total 0 08/10/2023 The thought [...] [address] [place] [address] Jona Henley MD [address] [place] [address] 08/14/2025 3:00 PM EST Office Visit BRANDEN APONTE [address] [place] [address] Jona Henley MD [address] [place] [address] documented as of this encounter Visit Diagnoses Not on filedocumented in this encounter Care Teams Tsa Screener Relationship Specialty Start Date End Date Pete Thapa DO [address] [place] [address] PCP - General Family Medicine 02/14/23 documented as of this encounter
--- OUTSIDE RECORDS SUMMARY | 2025-07-05 09:56 | XMS_ITS | Encounter Summary ---
Author Organization [facility] Address [id number] [address] [place] [address] Care Team Providers Care Fruit Tester Name Role Phone Alanis Sky DO, George R Primary Care Provider + Reason for Visit * Reason Onset Date Comments Med Refill 02/09/2023 Encounter Details Date Type Department Care Team (Late st Contact Info) Description 02/09/2023 [facility]phone [facility] [address] [place] [address] Phuong Stiles CMA Med Refill Social History Tobacco Use Types Packs/Day Years Used Date Smoking Tobacco: Never Smokeless Tobacco: Never Alcohol Use Standard Drinks/Week Comments No 0 (1 standard drink = 0.6 oz pur e alcohol) PHQ-2 Answer Date Recorded Total Score 0 01/27/2023 Childcare Answer Date Recorded Childcare Unknown 03/14/2019 [...] have Coronavirus / COVID-19? No / Unsure 01/13/2023 10:31 AM EDT documented as of this encounter Miscellaneous Notes * Telephone Encounter - Phuong Stiles CMA - 02/09/2023 1:50 PM EDT The patient called stating she had surgery today and was informed to get Medihoney. However, the patient stated that the pharmacy was informed her to contact the clinic and request for a script. The patient asked that a script be sent to [facility] in [place]. documented in this encounter Plan of Treatment Upcoming Encounters Date Type Department Care Team (Late st Contact Info) Description 09/29/2025 4:00 PM EST Telemedicine [facility], A Department of [facility] [address] [place] [phone] Bari Caro MD [address] [facility] [address] [place] [address] documented as of this encounter Goals Goal Patient Goal Type Associated Problems Recent Progress Patient-Stated? Author Home General Yes Cherrie Ponce LSW Note: Evaluation of progress towards goal: Safe dc transition from hospital to home. documented as of this encounter Visit Diagnoses Not on filedocumented in this encounter Additional Health Concerns Assessment Noted Time PHQ-9 Depression Total Score: 0 01/28/20 23 5:07 PM EDT documented as of this encounter Care Teams Fruit Tester Relationship Specialty Start Date End Date Pete Thapa Jr., [address] [place] [address] PCP - General Family Medicine 02/26/25 documented as of this encounter
--- OUTSIDE RECORDS SUMMARY | 2025-07-05 09:56 | XMS_ITS | Encounter Summary ---
Author Organization [facility] Address [facility] [place] [address] Care Team Providers Care Babysitter Name Role Phone Cristobal-Jaxon Kerry COONEY Unavailable Jona Henley MD Unavailable [phone] Source Comments In the event this information is protected by the Federal Confidentiality of Alcohol and Drug AbusePatient Records regulations: The Federal rules restrict any use of the information to criminally investigate or prosecute any alcohol or drug abuse patient.[facility] Encounter Details Date Type Department Care Team (Late st Contact Info) Description 11/04/2021 Get Medical Advice Dermatology [address] [place] [address] Mary Ann Ma MD [address] [facility] [place] [address] Face Social History Tobacco Use Types Packs/Day Years [...] N ot on file 09/14/2020 Data from: https://www.neighborhoodatlas.medicine.[facility]/. Last address used for calculation Not on [...] have Coronavirus / COVID-19? No / Unsure 11/01/2021 11:14 AM EST documented as of this encounter [...] on filedocumented in this encounter Care Teams Babysitter Relationship Specialty Start Date End Date Crtmildred-Kerry Coates RD [address] [address] Nutrition 04/04/23 Jona Henley MD [address] [facility] [address] [place] [address] Referring Audit Associate 06/11/25 documented as of this encounter
--- OUTSIDE RECORDS SUMMARY | 2025-07-05 09:56 | XMS_ITS | Encounter Summary ---
Author Organization [facility] Address [address] [place] [address] Care Team Providers Care Metallurgical Technician Name Role Phone Kerry Butler RD Unavailable Jona Henley MD Unavailable [phone] Source Comments In the event this information is protected by the Federal Confidentiality of Alcohol and Drug AbusePatient Records regulations: The Federal rules restrict any use of the information to criminally investigate or prosecute any alcohol or drug abuse patient.[facility] Encounter Details Date Type Department Care Team (Late st Contact Info) Description 05/24/2023 Get Medical Advice General Surgery [address] [id number] Az Ordoñez PA-C [address] [place] [address] Christen Social History Tobacco Use Types Packs/Day Years [...] is lower risk 7 03/28/2023 Data from: https://www.neighborhoodatlas.[facility]/. Last address used for calculation [...] on filedocumented in this encounter Care Teams Metallurgical Technician Relationship Specialty Start Date End Date Crtali-Kerry Coates RD [address] [address] Nutrition 04/04/23 Jona Henley MD [address] [facility] 210 [place] [address] Referring Supervisory Training Specialist 06/11/25 documented as of this encounter
--- OUTSIDE RECORDS SUMMARY | 2025-07-05 09:56 | XMS_ITS | Encounter Summary ---
Author Organization [facility] Address [address] [place] [address] Care Team Providers Care Bulk Fluids Handler Name Role Phone Pete Thapa DO Primary Care Provider [phone] Encounter Details Date Type Department Care Team (Latest Contact Info) Description 06/16/2025 Results Follow-Up BRANDEN Pena OBGYN [address] [facility] 210 [place] [address] Jona Henley MD [address] [facility] 210 [place] [address] METHYLENETETRAHYDROFOLATE REDUCTASE (MTHFR) THERMOLABILS Social History Tobacco Use Types Packs/Day Years [...] How often do you attend chur or amish services? 1 to 4 times per year 06/11/2025 Do you belong to any clubs o r organizations such as adventism groups, unions, fraternal or athletic groups, or [...] Recorded Patient Health Questionnaire-2 Score 0 06/13/2025 [facility] - Occupational Stress [...] things needed for daily living? No 06/11/2025 [place] Depression Scale Answer Date Recorded [place] Depression Scale Total 0 08/10/2023 The thought [...] any time in the past 12 m [facility], were you homeless or living in a care home (including now)? No 06/11/2025 Comments No Sex [...] [address] [place] [phone] Jona Henley MD [address] [place] [id number] 08/14/2025 3:00 PM EST Office Visit BRANDEN APONTE [address] [place] [address] Jona Henley MD [address] [facility] [address] [place] [address] documented as of this encounter Visit Diagnoses Not on filedocumented in this encounter Care Teams Bulk Fluids Handler Relationship Specialty Start Date End Date Pete Thapa DO [address] [facility] [address] [place] [address] PCP - General Family Medicine 02/14/23 documented as of this encounter
--- OUTSIDE RECORDS SUMMARY | 2025-07-05 09:56 | XMS_ITS | Encounter Summary ---
Author Organization [facility] Address [facility] [place] [address] Care Team Providers Care Router Setter Name Role Phone Luke Kerry COONEY Unavailable Jona Henley MD Unavailable [phone] Source Comments In the event this information is protected by the Federal Confidentiality of Alcohol and Drug AbusePatient Records regulations: The Federal rules restrict any use of the information to criminally investigate or prosecute any alcohol or drug abuse patient.[facility] Encounter Details Date Type Department Care Team (Late st Contact Info) Description 06/21/2021 Get Medical Advice Dermatology [address] [place] [address] Mary Ann Ma MD [address] [facility] [place] [address] RE: Test Result Question Social [...] N ot on file 09/14/2020 Data from: https://www.neighborhoodatlas.medicine.[facility]/. Last address used for calculation [...] encounter Miscellaneous Notes * Telephone Encounter - Margot Gibson Lpn, LPN - 06/22/2021 9:02 AM EDT Please advise Last OV 02/19/2021 documented in this encounter Plan of Treatment Not on file documented as of this encounter Visit Diagnoses Not on filedocumented in this encounter Care Teams Router Setter Relationship Specialty Start Date End Date Crtalic-Kerry Coates RD [address] [place] [address] Nutrition 6/27/23 Jona Henley MD [address] [facility] [address] [place] [address] Referring Oliving Machine Operator 06/11/25 documented as of this encounter
--- OUTSIDE RECORDS SUMMARY | 2025-07-05 09:56 | XMS_ITS | Encounter Summary ---
Author Organization [facility] Address [address] [facility] [place] [address] Care Team Providers Care Student Recruiter Name Role Phone Pete Thapa DO Primary Care Provider [phone] Encounter Details Date Type Department Care Team (Late st Contact Info) Description 01/22/2024 Orders Only [facility] [place] [facility] [address] [facility] [address] [place] [address] Jona Henley MD [address] [facility] 210 [place] [address] Social History Tobacco Use Types Packs/Day Years [...] friends or relatives? Patient declined 11/12/2023 Attends Sikh Services Not on file 11/12 Do you [...] needed for daily living? Patient declined 11/12/2023 Mobile Depression Scale Answer Date Recorded Mobile Depression Scale Total 0 08/10/2023 The thought [...] [address] [place] [address] Jona Henley MD [address] [place] [address] 08/14/2025 3:00 PM EST Office Visit BRANDEN APONTE [address] [place] [phone] Jona Henley MD [address] [place] [address] documented as of this encounter Procedures Procedure Name Priority Date/Time Associated Diagnosis Comments ULTRASOUND : OBSTETRICS Routine 07/24/2023 2:23 PM EDT documented in this encounter Results * ULTRASOUND : OBSTETRICS (07/24/2023 2:23 PM EDT) Anatomical Region Laterality Modality Radiographic Tena ging us Jona Henley MD IMG XR PROCEDURES Final Result documented in this encounter Visit Diagnoses Not on filedocumented in this encounter Care Teams Student Recruiter Relationship Specialty Start Date End Date Pete Thapa DO [address] [place] [address] PCP - General Family Medicine 02/14/23 documented as of this encounter
--- OUTSIDE RECORDS SUMMARY | 2025-07-05 09:56 | XMS_ITS | Encounter Summary ---
Author Organization [facility] Address [facility] [place] [address] Care Team Providers Care Unit Manager Name Role Phone Luke Kerry COONEY Unavailable Jona Henley MD Unavailable [phone] Source Comments In the event this information is protected by the Federal Confidentiality of Alcohol and Drug AbusePatient Records regulations: The Federal rules restrict any use of the information to criminally investigate or prosecute any alcohol or drug abuse patient.[facility] Encounter Details Date Type Department Care Team (Late st Contact Info) Description 09/11/2021 Get Medical Advice Dermatology [address] [place] [address] Mary Ann Ma MD [address] [facility] [facility] [place] [address] Ance medicine Social History Tobacco Use Types Packs/Day Years [...] N ot on file 09/14/2020 Data from: https://www.neighborhoodatlas.medicine.[facility]/. Last address used for calculation Not [...] on filedocumented in this encounter Care Teams Unit Manager Relationship Specialty Start Date End Date Crtmildred-Kerry oCates RD [address] [address] Nutrition 04/04/23 Jona Henley MD [address] [facility] [address] [place] [address] Referring Jail Guard 06/11/25 documented as of this encounter
--- OUTSIDE RECORDS SUMMARY | 2025-07-05 09:56 | XMS_ITS | Clinical Summary ---
Author Organization [employer] Address [id number] [address] [place] [address] Care Team Providers Care Editor In Chief Name Role Phone Alanis Sky DO, George R Primary Care Provider + Allergies Active Allergy Reactions Criticality Noted Date Comments Doxycycline Dizziness Low 12/16/2021 Penicillin G Sodium Rash Low 12/16/2021 Pollen Extracts Other (See Comments) Low 08/20/2024 Runny nose and itchy eyes Medications methylphenidate HCl (CONCERTA) 18 mg CR tabletIndications: attention-deficit hyperactivity disorder Take 1 tablet (18 mg total) by mouth every morning Indications: attention deficit disorder with hyperactivity . Active Active Problems Problem Noted Date Diagnosed Date Miscarriage 02/26/2025 Lesion of tongue 08/09/2024 Chronic throat pain 07/03/2024 Odynophagia 07/03/2024 Adenoid hypertrophy 07/03/2024 Acute right otitis media 03/19/2024 Otomycosis- right ear 01/04/2023 Chiari syndrome 12/27/2022 Overview (12/27/2022): Added automatically from request for surgery [id number] Right lower quadrant abdominal pain 11/23/2022 Overview (11/23/2022): Added automatically from request for surgery [id number] Gross hematuria 11/23/2022 Overview (11/23/2022): Added automatically from request for surgery [id number] Nausea and vomiting 12/13/2021 Cerumen debris on tympanic membrane of both ears 02/08/2021 Chronic otitis media 11/28/2019 Dysfunction of both eustachian tubes 09/27/2017 Hearing loss of right ear 09/27/2017 Anxiety Resolved Problems Problem Noted Date Diagnosed Date Resolved Date Acute right otitis media 10/15/2019 Chronic left ear pain 01/23/20192021 Chronic perichondritis of external ear, left 9 03/06/2019 Left otitis media 11/22/2018 07/28/2022 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 09/27/2017 07/07/2022 Encounters Date Type Department Care Team Description 07/04/2025 Telephone [facility] [address] [place] [address] Doris Hernandez 07/03/2025 Telephone [facility] [place] [address] [facility] [address] [place] [address] Otilia Oviedo from Last 3 Months Immunizations Immunization Administration Dates Next Due DTaP 01/30/2008, 5,04/21/2003,02/17,2002 HPV Quadrivalent 12/15/2016 HPV9 07/13/2017 Hep A, 2 Dose 07/13/2017 Hep B, Adolescent or Pediatric 04/21/2003,2002,2002 Hepatitis A 12/15/2016 HiB 04/21/2004, 3,02/17/2003,12/17 IPV 01/30/2008, 3,02/17/2003,12/17 Influenza, Injectable, quadr ivalent (PF) 07/13/2017 Influenza, Unspecified 07/08/2015,2012,07/28/2011,08/24,07/22/2009,08/31/2004,10/15/2003 ,09/12/2003 MMR 01/30/2008,04/21/2004 Meningococcal Conjugate 07/31/2015 Pneumococcal Conjugate 04/21/2004,2002,04/21/2003,12/17 Tdap 06/25/2015 Varicella 11/08/2004 Family History Medical History Relation Name Comments Back Problems Father Heart disease Maternal Grandfather L Heart disease Maternal Grandmother Margaux Allen Asthma Mother L Cancer Paternal Grandfather Breast cancer Paternal Grandmother L Hypertension Paternal Grandmother L Thyroid disease Paternal Grandmother L Anesthesia problems Neg Hx Bleeding Disorder Neg Hx Clotting disorder Neg Hx Colon cancer Neg Hx Diabetes Neg Hx Ovarian cancer Neg Hx Stroke Neg Hx Relation Name Status Comments Father Alive Maternal Grandfather L Alive Maternal Grandmother Margaux Allen Alive Mother L Alive Paternal Grandfather Paternal Grandmother L Alive Social History Tobacco Use Types Packs/Day Years Used Date Smoking Tobacco: Never Smokeless Tobacco: Never Tobacco Cessation:Counseling Given: Not Answered Alcohol Use Standard Drinks/Week Comments Yes 0 (1 standard drink = 0.6 oz pur e alcohol) q 1x per month [facility] Utilities Answer Date Recorded In the past [...] Sign Reading Time Taken Comments Blood Pressure 113/76 02/27/2025 1:15 PM EDT Pulse 80 02/27/2025 1:15 PM EDT Temperature 36.7 C (98 F) 02/27/2025 1:15 PM EDT Respiratory Rate 16 02/27/2025 1:15 PM EDT Oxygen Saturation 98% 02/27/2025 9:21 AM EDT Inhaled Oxygen Concentration - - Weight 63.5 kg (140 lb) 02/26/2025 5:33 PM EDT Height 167.6 cm (5' 6 ) 02/26/2025 5:33 PM EDT Body Mass Index 22.6 02/26/2025 5:33 PM EDT Plan of Treatment Upcoming Encounters Date Type Department Care Team (Late st Contact Info) Description 09/29/2025 4:00 PM EST [facility] Department of [facility] [address] [facility] [address] [place] [phone] Bari Caro MD [address] [facility] [address] [place] [address] Health Maintenance Due Date Last Done Comments Pap Smear 2023 Depression Screening 06/19/2024 06/19/2023 COVID-19 Vaccine (3 - 2024-2 6 season) 2025 03/09/2023, 12/22/2022 Influenza Vaccine 06/09/2025 06/13/2024, , 08/03/2022, Additional history exists DTaP,Tdap and Td Vaccines (7 - Td or Tdap) 06/25/2025 06/25/2015, 01/30/2008, 11/08/2004, Additional history exists Adult BMI Screening 02/26/2026 02/26/2025 Tobacco Screening 02/27/2026 02/27/2025 Goals Goal Patient Goal Type Associated Problems Recent Progress Patient-Stated? Author Home General Yes Cherrie Ponce LSW Note: Evaluation of progress towards goal: Safe dc transition from hospital to home. Medical Devices Explanted Type Area Communications Equipment Operator Device Identifier Shelf Expiration Date Model / Serial / Lot Tube Ear Jacquelyn Bx/5 Bill - [id number] Implanted:Qty: 1 on 11/02/2017 by Karthikeyan Lopez MD PhD at [facility] Explanted:Qty: 1 on 06/04/2024 by Clifton Verde MD at [facility] Other Implant [facility] 04/03/2025 [id number] / / [id number] Insurance [employer] MED[place]ID [facility] MEDICAID [facility] MEDICAID Advance Directives * Full Code (Latest Code Status on File) Date Activated Date Inactivated Comments 02/27/2025 12:25 AM 02/27/2025 9:28 PM * Full Code Date Activated Date Inactivated Comments 01/27/2023 2:20 PM 01/30/2023 2:01 PM * Full Code Date Activated Date Inactivated Comments 12/13/2021 3:09 PM 12/14/2021 5:43 PM Care Teams Editor In Chief Relationship Specialty Start Date End Date Pete Thapa Jr., [address] [address] PCP - General Family Medicine 02/26/25
--- OUTSIDE RECORDS SUMMARY | 2025-07-05 09:56 | XMS_ITS | Encounter Summary ---
Author Organization [facility] Address [facility] [place] [address] Care Team Providers Care Vehicle Operator Technician Name Role Phone Luke Kerry COONEY Unavailable Jona Henley MD Unavailable [phone] Source Comments In the event this information is protected by the Federal Confidentiality of Alcohol and Drug AbusePatient Records regulations: The Federal rules restrict any use of the information to criminally investigate or prosecute any alcohol or drug abuse patient.[facility] Encounter Details Date Type Department Care Team (Late st Contact Info) Description 06/02/2022 Get Medical Advice Dermatology [address] [place] [address] Mary Ann Ma MD [address] [facility] [address] [place] [address] Ance Social History Tobacco Use [...] N ot on file 04/04/2022 Data from: https://www.neighborhoodatlas.medicine.[facility]/. Last address used for calculation [address] [...] suspected to have Coronavirus/COVID-19? No / Unsure 06/01/2022 12:35 PM EDT documented as of this encounter [...] on filedocumented in this encounter Care Teams Vehicle Operator Technician Relationship Specialty Start Date End Date Crtmartina-Kerry Coates RD [address] [place] [address] Nutrition 04/04/23 Jona Henley MD [address] [facility] [address] [place] [address] Referring Cork Sorter 06/11/25 documented as of this encounter
--- OUTSIDE RECORDS SUMMARY | 2025-07-05 09:56 | XMS_ITS | Encounter Summary ---
Author Organization [facility] Address [facility] [place] [address] Care Team Providers Care Experimental Rocketsled Mechanic Name Role Phone Kerry Butler RD Unavailable Jona Henley MD Unavailable [phone] Source Comments In the event this information is protected by the Federal Confidentiality of Alcohol and Drug AbusePatient Records regulations: The Federal rules restrict any use of the information to criminally investigate or prosecute any alcohol or drug abuse patient.[facility] Encounter Details Date Type Department Care Team (Late st Contact Info) Description 05/03/2023 Patient Msg Nutrition Therapy [address] [id number] Provider, Ccf Nutrition appointment Social History Tobacco Use Types Packs/Day Years Used Date Smoking Tobacco: Never Smokeless Tobacco: Never Comments:no one in household smokes Alcohol Use Standard Drinks/Week Comments No 0 (1 standard drink = 0.6 oz pur e alcohol) PHQ-2 Answer Date Recorded PHQ-2 score 3 11/10/2022 Area Deprivation Index Answer Date Yannick rded National Score (1-100), lower number is lower ri 82 03/28/2023 State Score (1-10), lower number is lower risk 7 03/28/2023 Data from: https://www.neighborhoodatlas.medicine.[facility].edu/. Last address used for calculation [address] [...] on filedocumented in this encounter Care Teams Experimental Rocketsled Mechanic Relationship Specialty Start Date End Date Crtalic-Kerry Coates RD [address] [address] Nutrition 04/04/23 Jona Henley MD [address] [facility] [address] [place] [phone] Referring Melting Furnace Skimmer 06/11/25 documented as of this encounter
--- OUTSIDE RECORDS SUMMARY | 2025-07-05 09:56 | XMS_ITS | Encounter Summary ---
Author Organization [facility] Address [facility] [place] [address] Care Team Providers Care Automobile Service Advisor Name Role Phone Luke Kerry COONEY Unavailable Jona Henley MD Unavailable [phone] Source Comments In the event this information is protected by the Federal Confidentiality of Alcohol and Drug AbusePatient Records regulations: The Federal rules restrict any use of the information to criminally investigate or prosecute any alcohol or drug abuse patient.[facility] Encounter Details Date Type Department Care Team (Late st Contact Info) Description 10/14/2024 Patient Msg Dermatology [address] [place] [address] Mary Ann Ma MD [address] [facility] [place] [address] Appointment Request Social History Tobacco [...] risk 7 08/16/2023 Data from: https://www.neighborhoodatlas.medicine.[facility]/. Last address used for calculation [address] [...] on filedocumented in this encounter Care Teams Automobile Service Advisor Relationship Specialty Start Date End Date Crtalic-Kerry Coates RD [address] [address] Nutrition 04/04/23 Jona Henley MD [address] [facility] [address] [place] [address] Referring Social Media Sr Strategy Manager 06/11/25 documented as of this encounter
--- OUTSIDE RECORDS SUMMARY | 2025-07-05 09:56 | XMS_ITS | Encounter Summary ---
Author Organization [facility] Address [facility] [place] [address] Care Team Providers Care Other Sales Support Worker Name Role Phone Kerry Butler RD Unavailable Jona Henley MD Unavailable [phone] Source Comments In the event this information is protected by the Federal Confidentiality of Alcohol and Drug AbusePatient Records regulations: The Federal rules restrict any use of the information to criminally investigate or prosecute any alcohol or drug abuse patient.[facility] Encounter Details Date Type Department Care Team (Late st Contact Info) Description 11/28/2023 Get Medical Advice Podiatry [address] [place] [address] Ángela Mancera, DPM [address] [place] [address] Toenail scheduling Social History Tobacco Use Types Packs/Day Years Used Date Smoking Tobacco: Never Smokeless Tobacco: Never Comments:no one in household smokes Alcohol Use Standard Drinks/Week Comments No 0 (1 standard drink = 0.6 oz pur e alcohol) PHQ-2 Answer Date Recorded PHQ-2 score 6 11/17/2023 Area Deprivation Index Answer Date Yannick rded National Score (1-100), lower number is lower ri sk 82 08/16/2023 State Score (1-10), lower number is lower risk 7 08/16/2023 Data from: https://www.neighborhoodatlas.[facility]/. Last address used for calculation [...] on filedocumented in this encounter Care Teams Other Sales Support Worker Relationship Specialty Start Date End Date Crtali-Kerry Coates RD [address] [address] Nutrition 04/04/23 Jona Henley MD [address] [facility] [address] [place] [address] Referring Gasoline Attendant 06/11/25 documented as of this encounter
--- OUTSIDE RECORDS SUMMARY | 2025-07-05 09:57 | XMS_ITS | Encounter Summary ---
Author Organization [facility] [employer] [facility] Address [id number] [address] [place] [address] Care Team Providers Care Coil Rewind Machine Operator Name Role Phone Alanis Sky DO, George R Primary Care Provider + Encounter Details Date Type Department Care Team (Late st Contact Info) Description 11/23/2022 [facility] [address] [place] [address] External, Scanning Provider Social History Tobacco Use Types Packs/Day Years [...] have Coronavirus / COVID-19? No / Unsure 11/24/2022 1:24 PM EST documented as of this encounter Plan of Treatment Upcoming Encounters Date Type Department Care Team (Late st Contact Info) Description 09/29/2025 4:00 PM EST Telemedicine [facility], A Department of [facility] [address] [place] [address] Bari Caro MD [address] [facility] [address] [place] [address] documented as of this encounter Goals Goal Patient Goal Type Associated Problems Recent Progress Patient-Stated? Author Home General Yes Cherrie Ponce, [place] Note: Evaluation of progress towards goal: Safe dc transition from hospital to home. documented as of this encounter Procedures Procedure Name Priority Date/Time Associated Diagnosis Comments URINE CULTURE WITH REFLEX TO URINALYSIS Routine 10/20/2022 documented in this encounter Results * Urine culture with reflex to urinalysis (10/20/2022) 10/20/2022 us Scanning Provider External URINE ORDERABLES Ebony l Result MANUALLY TRANSCRIBED RESULTS documented in this encounter Visit Diagnoses Not on filedocumented in this encounter Additional Health Concerns Assessment Noted Time PHQ-9 Depression Total Score: 0 08/12/20 21 9:29 AM EDT documented as of this encounter Care Teams Coil Rewind Machine Operator Relationship Specialty Start Date End Date Pete Thapa Jr., DO [address] [place] [address] PCP - General Family Medicine 02/26/25 documented as of this encounter
--- OUTSIDE RECORDS SUMMARY | 2025-07-05 09:57 | XMS_ITS | Encounter Summary ---
Author Organization [employer] Address [facility]-[id number] [address] [place] [address] Care Team Providers Care Crossing Tender Name Role Phone Alanis Sky DO, George R Primary Care Provider + Encounter Details Date Type Department Care Team (Late st Contact Info) Description 11/21/2022 Telephone [facility] [address] [place] [phone] Whitney Henson PA [address] [place] [address] Social History Tobacco Use Types Packs/Day Years [...] PM EST documented as of this encounter Miscellaneous Notes * Telephone Encounter - JONAS Fraser - 11/21/2022 9:10 AM EST Elie pt: Please schedule patient with 1st available physician for cysto/BRP/MAC; dx: hematuria/abdominal pain; AAP (might be able to use Elie IOC); 30 minutes; PSC * Telephone Encounter - JONAS Livingston - 11/21/2022 9:10 AM EST She was hoping for a female provider if possible. After she is scheduled, please forward to the doctor to make sure they agree with the plan and don't want to add on anything further * Telephone Encounter - Clarence Mar CNA - 11/21/2022 9:[address] Ayala, This patient is scheduled for a retrograde pyelogram. 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 (She was diagnosed/prescribed by the [facility] She is wondering if that's okay to take the night before her surgery? Thank you! -Clarence Spoke with patient and confirmed the following: PAT - 11/24/22 at 1200 Procedure - PSC on 11/30/22 at 1515 Per patient request, info sent through [employer]. * Telephone Encounter - Wesly Ayala DO - 11/21/2022 9:10 AM EST Yes- that will be fine. documented in this encounter Plan of Treatment Upcoming Encounters Date Type Department Care Team (Late st Contact Info) Description 09/29/2025 4:00 PM EST Telemedicine [facility], A Department of [facility] [address] [place] [address] Bari Caro MD [address] [facility] [address] [place] [address] documented as of this encounter Goals Goal [...] documented as of this encounter Care Teams Crossing Tender Relationship Specialty Start Date End Date Pete Thapa Jr., DO [address] [place] [address] PCP - General Family Medicine 02/26/25 documented as of this encounter
--- OUTSIDE RECORDS SUMMARY | 2025-07-05 09:57 | XMS_ITS | Encounter Summary ---
Author Organization [facility] Address [facility] [place] [address] Care Team Providers Care Solar Installer Pv Name Role Phone Kerry Butler RD Unavailable Jona Henley MD Unavailable [phone] Source Comments In the event this information is protected by the Federal Confidentiality of Alcohol and Drug AbusePatient Records regulations: The Federal rules restrict any use of the information to criminally investigate or prosecute any alcohol or drug abuse patient.[facility] Encounter Details Date Type Department Care Team (Late st Contact Info) Description 04/05/2023 Patient Msg Nutrition Therapy [address] [place] [address] Provider, Ccfrancy After Visit Information Social History Tobacco Use Types Packs/Day Years [...] is lower risk 7 03/28/2023 Data from: https://www.neighborhoodatlas.[facility]/. Last address used for calculation 26 [...] on filedocumented in this encounter Care Teams Solar Installer Pv Relationship Specialty Start Date End Date Crtalic-Kerry Coates RD [address] [address] Nutrition 04/04/23 Jona Henley MD [address] [facility] [address] [place] [address] Referring Director Airport Operations 06/11/25 documented as of this encounter
--- OUTSIDE RECORDS SUMMARY | 2025-07-05 09:57 | XMS_ITS | Encounter Summary ---
Author Organization [facility] [employer] [facility] tem Address [id number] [address] [place] [address] Care Team Providers Care Medical Management Trainer Name Role Phone Alanis Sky DO, George R Primary Care Provider + Encounter Details Date Type Department Care Team (Late st Contact Info) Description 11/21/2022 [facility] [address] [place] [address] External, Scanning Provider Social History [...] EST Telemedicine [facility], [facility] Department of [facility] [address] [place] [address] Bari Caro MD [address] [facility] [address] [place] [address] documented as of this encounter Goals Goal Patient Goal Type Associated Problems Recent Progress Patient-Stated? Author Home General Yes Cherrie Ponce, [place] Note: Evaluation of progress towards goal: Safe dc transition from hospital to home. documented as of this encounter Procedures Procedure Name Priority Date/Time Associated Diagnosis Comments CT ABDOMEN AND PELVIS WO CONT Routine 10/31/2022 documented in this encounter Results * CT abdomen and pelvis without contrast (10/31/2022) Anatomical Region Laterality Modality Body, Abdomen, Body Covera N/A Compu roe Tomography us Scanning Provider External IMG CT ORDERABLES Fin al Result documented in this encounter Visit Diagnoses Not on filedocumented in this encounter Additional Health Concerns Assessment Noted Time PHQ-9 Depression Total Score: 0 08/12/20 21 9:29 AM EDT documented as of this encounter Care Teams Medical Management Trainer Relationship Specialty Start Date End Date Pete Thapa Jr., [address] [place] [address] PCP - General Family Medicine 02/26/25 documented as of this encounter
--- OUTSIDE RECORDS SUMMARY | 2025-07-05 09:57 | XMS_ITS | Encounter Summary ---
Author Organization [facility] Address [address] [place] [address] Care Team Providers Care Drum Tester Name Role Phone Luke Kerry COONEY Unavailable Jona Henley MD Unavailable Source Comments In the event this information is protected by the Federal Confidentiality of Alcohol and Drug AbusePatient Records regulations: The Federal rules restrict any use of the information to criminally investigate or prosecute any alcohol or drug abuse patient.[facility] Encounter Details Date Type Department Care Team (Late st Contact Info) Description 10/13/2022 Get Medical Advice General Surgery [address] [phone] Az Ordoñez PA-C [address] [place] [address] Weight Social History Tobacco Use Types Packs/Day Years [...] N ot on file 04/04/2022 Data from: https://www.neighborhoodatlas.medicine.[facility]/. Last address used for calculation [address] [...] on filedocumented in this encounter Care Teams Drum Tester Relationship Specialty Start Date End Date Crtali-Kerry Coates RD [address] [address] Nutrition 04/04/23 Jona Henley MD [address] [facility] [address] [place] [address] Referring In House Cra 06/11/25 documented as of this encounter
--- OUTSIDE RECORDS SUMMARY | 2025-07-05 09:57 | XMS_ITS | Encounter Summary ---
Author Organization [facility] Address [facility] [place] [address] Care Team Providers Care Labor Trainer Name Role Phone Luke Kerry COONEY Unavailable Jona Hneley MD Unavailable [phone] Source Comments In the event this information is protected by the Federal Confidentiality of Alcohol and Drug AbusePatient Records regulations: The Federal rules restrict any use of the information to criminally investigate or prosecute any alcohol or drug abuse patient.[facility] Encounter Details Date Type Department Care Team (Late st Contact Info) Description 11/06/2022 Get Medical Advice Dermatology [address] [place] [address] Mary Ann Ma MD [address] [facility] [address] [facility] [place] [address] Ance Social History Tobacco Use Types Packs/Day Years Used Date Smoking Tobacco: Never Smokeless Tobacco: Never Comments:no one in household smokes Alcohol Use Standard Drinks/Week Comments No 0 (1 standard drink = 0.6 oz pur e alcohol) PHQ-2 Answer Date Recorded PHQ-2 score 3 11/10/2022 Area Deprivation Index Answer Date Yannick rded National Score (1-100), lower number is lower ri sk 77 11/01/2022 State Score (1-10), lower number is lower risk N ot on file 11/01/2022 Data from: https://www.neighborhoodatlas.medicine.[facility]/. Last address used for calculation [address] 11/01/2022 Comments No Sex and Gender Information Value [...] encounter Miscellaneous Notes * Telephone Encounter - Lauren Hamlin LPN - 11/07/2022 8:19 AM EST Pt has follow up scheduled on 12/02/22 documented in this encounter Plan of Treatment Not on file documented as of this encounter Visit Diagnoses Not on filedocumented in this encounter Care Teams Labor Trainer Relationship Specialty Start Date End Date Crtalic-K[address] [phone] Nutrition 04/04/23 Jona Henley MD [address] [place] [address] Referring Capacitor Assembler 06/11/25 documented as of this encounter
== END 2025-07-05 09:53 | disposition home or self-care (01) ==
LOC: LAB 09:54
PROVIDERS: PCP Family Medicine; Visit Provider Specialist
DX: Z32.01 Encounter for pregnancy test, result positive (principal)
CPT/HCPCS: 36415; 84702

== ENCOUNTER 2025-07-17 16:18 | Outpatient (OUT) | payer MEDICAID, SELFPAY ==
--- OUTSIDE RECORDS SUMMARY | 2025-07-17 16:26 | XMS_ITS | CCD ---
Author Organization [facility] Care Team Providers Care Instrument And Controls Technician Name Role Phone SREEKANTH JOHNSON Unavailable Unavailable [...] Provider DO Katie Thapa Primary Care Provider MD Jona Vann Attending Provider Salas Patricia Unavailable DO Katie Thapa Primary Care Provider MD Jona Vann Attending Provider DO Pérez Barcenas M Attending Provider Pérez Barcenas Unavailable DO Katie Thapa Primary Care Provider [phone] MD Yung Nichols Jr Emergency Provider Unavailable Primary Care Provider Unavailko e Anil Thapa DO Primary Care Provider ÁNGELA DELGADO Attending Unavailable ÁNGELA DELGADO Attending Unavailable SELF Referring Unavailable ÁNGELA DELGADO Attending Unavailable MARY ANN LEVIN Attending Unavailable Crtalic-Jaxon COONEY, Kerry Unavailable [phone] Alanis Sky DO, George R Primary Care [...] George R Primary Care Provider U navailable Crtalic-Kerry Coates RD Unavailable Katie Thapa DO Primary Care Provider Yaritza Bauer APRN Emergency Provider ANIL THAPA Primary Care Unavailable MILTON GARCIA Attending Unavailable ANIL THAPA Primary Care Unavailable AKIKO ACOSTA Attending Unavailable ANIL THAPA Primary Care Unavailable ROHIT ROB Attending Unavailable JONA AVNN Referring Unavailable ANIL THAPA Primary Care Unavailable MICH VERDE Attending Unavailable ALANIS ROGER, ANIL R Referring Unavailable KAMARENAN , ANIL R Primary Care Unavailable LUIS ENRIQUE JENNINGS Attending Unavailable ALANIS ROGER, ANIL R Referring Unavailable KAMARENAN JR, ANIL R Primary Care Unavailable MICH VERDE Attending Unavailable ALANIS ROGER, ANIL R Referring Unavailable KAMARENAN JR, ANIL R Primary Care Unavailable TIESHA RAI Attending Unavailable ALANIS ROGER, ANIL R Referring Unavailable ALANIS ROGER, ANIL R Primary Care Unavailable MICH VERDE Attending Unavailable ALANIS ROGER, ANIL R Referring Unavailable KAMARENAN JR, ANIL R Primary Care Unavailable TIESHA RAI Attending Unavailable ALANIS ROGER, ANIL R Referring Unavailable ALANIS ROGER, ANIL R Primary Care Unavailable ALANIS ROGER, ANIL R Referring Unavailable DIAAN , ANIL R Primary Care Unavailable DIAAN , ANIL R Primary Care Unavailable FERNANDA CHRISTY [...] lactose Drug Allergy 02-15-20 17 [facility] Repository (20 sources) Cyproheptadine; Translations: [CYPROHEPTADINE ] Drug Allergy 08-02-20 13 Diarrhea, Other: See Comments, Other (See Comments) [facility] (20 sources) Seasonal allergy; Translations: [SEASONAL ALLERGIES] Propensity to adverse reactions 12-25-19 10 [facility] (20 sources) Doxycycline; Translations: [DOXYCYCLINE] Drug Allergy 11-29-19 22 Other: See Comments, rash, Dizziness, Dizziness or Vertigo, Other (See Comments) [facility] Work Phone: (20 sources) Penicillin G; Translations: [PENICILLIN G SODIUM] Drug Allergy 11-29-19 22 Rash [facility] Work Phone: (20 sources) Penicillins; Translations: [Penicillins] Allergy to substance 08-03-20 23 Unknown Reaction, Unknown Reaction, rash [facility] (20 sources) Azithromycin; Translations: [azithromycin] Drug Allergy 08-17-20 23 Unknown Reaction [facility] Comment on above: Tachycardia and rash (20 sources) oxyCODONE; Translations: [oxycodone] Drug Allergy 08-17-20 23 Palpitations [facility] (5 sources) Penicillin Drug Allergy rash [facility] Other (20 sources) Penicillin G sodium Allergy to substance 11-29-19 Rash [facility] (20 sources) Levonorgestrel- Ethinyl Estrad; Translations: [LEVONORGESTREL -ETHINYL ESTRAD] Drug Intolerance 12-25-19 10 Other (See Comments) [facility] (15 sources) Pollen; Translations: [POLLEN EXTRACTS] Propensity to adverse reactions to drug 08-20-20 24 Other (See Comments) [facility] (1 source) Doxycycline Drug Allergy 02-19-20 25 [facility] Repository Medications Current Medications Medication Drug [...] Jun, Active meclofenamate 100 mg oral capsule (9 sources) Start: meclofenamate (Meclomen) 100 MG capsule Indications: Chiari malformation type I (HCC) One tablet tid on menses No hormones due to Chiari malformation 120 capsule 2 06/10/2025 Active 24 hr methylphenidate hydrochloride 18 mg extended release oral tablet (20 sources) Central Nervous System Stimulant Start: 025 End: take 1 tablet by mouth in the morning methylphenidate ER (Concerta) 18 MG CR tablet Indications: Attention deficit hyperactivity disorder (ADHD), combined type Take 1 tablet (18 mg) by mouth in the morning. Do not crush, chew, or split. 30 tablet 06/13/2025 Active Start: 05-17-2024 End: 02-15-2025 take 1 [...] DAILY TO FACIAL AREAS NEEDED FOR RASH/ITCHING Vit-Fe Fumarate-FA ( Vitamins) 28-0.8 MG tablet (1 source) Start : 07-03 End: 07-03 take 1 tablet by mouth once daily Vit-Fe Fumarate-FA ( Vitamins) 28-0.8 MG tablet Indications: confirmed by positive blood test ([facility]) Take 1 tablet by mouth Daily 30 tablet 11 07/03/2025 07/03/2026 Active sulfacetamide sodium 100 mg/ml / sulfur 50 [...] Comment on above: Take 1 tablet by [facility] once daily. 2 ml droperidol 2.5 mg/ml [...] on above: Take 1 capsule by mo [facility] twice daily. miSOPROStol 0.2 mg oral tablet (7 sources) Prostaglandin E1 Analog Start: End: take 1 tablet by mouth [...] Comment on above: Take 1 tablet by [facility] as directed. at the onset of headache; [...] on above: Take 2 tablets by mo [facility] once daily. Take 1 tablet by tucker [...] oral tablet (13 sources) Opioid Agonist Start: 3 End: 4 take 1 tablet by mouth [...] Documented Date Episodic/Chronic Acute and chronic tonsillitis (17 sources) Hypertrophy of adenoids; Translations: [Hypertrophy of [...] Injury - Unspecified (1 source) Activity, volleyball ([employer]) (court); Translations: [ACTIVITY, VOLLEYBALL ([employer]) (COURT)] Onset: 06-13-2017 Headache; including migraine (20 [...] 10-13-2022 Episodic Other aftercare (1 source) Other snf (current) drug therapy; Translations: [OTH ALF CURRENT [...] 07-31-2015 Episodic Diseases of mouth; excluding dental (16 sources) Lesion of tongue; Translations: [Other diseases [...] Resolved: 07-24-2015 07-24-2015 Episodic Other gastrointestinal disorders (18 sources) Swallowing painful; Translations: [Dysphagia, unspecified] Onset: [...] Onset: 12-14-2022 Episodic Other upper respiratory disease (19 sources) Pain in throat; Translations: [Pain in [...] syndrome] Onset: 12-27-2022 Resolved: 07-10-2023 07-10-2023 Chronic Spontaneous (16 sources) Complete or unspecified spontaneous without complication; Translations: [Miscarriage] Onset: 02-26-2025 03-30-2025 Episodic Unclassified (1 source) Contact with and (suspected) exposure to covid-19 Z20.822 Onset: 06-24-2022 Resolved: 06-24-2022 Results Test Name Value Interpretation Reference Range Facility [facility] PREG QUANT HCGon 025 HCG QUANTITATIVE 3027 mIU/mL [facility] Comment on above: 5-50 0.2-1 WEEK 50-500 1-2 WEEKS 100-5,000 2-3 WEEKS 500-10,000 3-4 WEEKS 1,000-50,000 4-5 WEEKS 10,000-100,000 5-6 WEEKS 15,000-200,000 6-8 WEEKS 10,000-100,000 2-3 MONTHS [facility] TBH PREG QUANT HCGon 025 HCG QUANTITATIVE 805 mIU/mL [facility] Comment on above: 5-50 0.2-1 WEEK 50-500 1-2 WEEKS 100-5,000 2-3 WEEKS 500-10,000 3-4 WEEKS 1,000-50,000 4-5 WEEKS 10,000-100,000 5-6 WEEKS 15,000-200,000 6-8 WEEKS 10,000-100,000 2-3 MONTHS [facility] METHYLENETETRAHYDROFOLATE RE DUCTASE (MTHFR) [facility] Interpretation and review of laboratory results Comment [facility] Comment on above: Technical Component performed at [facility] Professional Component performed by: Rohit Caballero, PhD, [facility] [id number], [facility], [address] [place] [address] MTHFR gene targeted mutation analysis [facility] (Bld/Tiss) Comment [facility] Comment on above: Result: c.665C>T (p. [id number]), legacy name: [id number] - Not Detected c.1286A>C (p. [id number]), legacy name: [id number] - Not Detected Interpretation: This result is [...] that can decrease enzyme activity; c.665C>T (p. [id number]), legacy name [id number], and c.1286A>C (p. [id number]), legacy name [id number]. These variants do not independently increase risk [...] to limited evidence of clinical utility (PMID: 55114111). Comments: Genetic Coordinators are available for health care providers to discuss results at [phone] Test Details: Variants Analyzed: c.665C>T (p. [id number]), legacy name: [id number] and c.1286A>C (p. [id number]), legacy name: [id number] Methods/Limitations: DNA analysis of the MTHFR gene [...] developed and its performance characteristics determined by [employer]. It has not been cleared or approved by the Food and Drug Administration. References: Adelakey SE, Homer CJ, Kelsey HV. ACMG Practice Guideline: lack of evidence for MTHFR polymorphism testing. Jennyfer Med. 2012;15(2):153-6. doi: 10.1038/gim.2012.165. Epub 2012Oct 11. PMID: 61647455. [place] [employer]stetric[employer] and Gynec[employer]' Committee on Practice Bulletins-Obstetrics. ACOG Practice Bulletin No. 197: Inherited Thrombophilias in . Obstet Gynecol. 2018 Apr;132(1):e18-e34. doi: 10.1097/AOG.7170498231928642. Erratum in: Obstet Gynecol. 2018 Jul;132(4):1069. PMID: 59955634. Performed at: - [facility] [address] [facility], [place], [place] [id number] Candlemaker: Madyson Gillette [facility], Phone: [phone] [facility] Urine Cultureon 04-17-2025 Bacteria identified Cx Nom (U) >100,000 colonies/ml mixed bacterial skin contaminants 2 Days PERFORMED BY: [facility] [place] [address] PATHOLOGIST REAMING MACHINE TENDER ANNA KEENAN M.D. Normal [facility] Comment on above: Performed By: #### F S #### [facility] [address] #### GCCHLAMAMP #### [facility] , HCG-BETA, SERUMon 02-27-2025 HCG.beta subunit Qn 5375 m[IU]/mL Normal Pr [facility] Comment on above: Order Comment: WEEKS (SINCE [...] neoplasms. Performed By: #### H CG #### [facility] ([address] [address] VIR HEMOGLOBIN AND HEMATOCRIT, [place] 02-27-2025 Hematocrit (Bld) [Volume fraction] 36.1 % Normal 35-47 [facility] Comment on above: Performed By: #### H H #### [facility] ([address] [address] VIR Hemoglobin (Bld) [Mass/Vol] 12.5 g/dL Normal 11.7-15.5 [facility] Comment on above: Performed By: #### H H #### [facility] ([address] [address] VIR CBC WITH AUTO DIFFERENTIALon 02-26-2025 BASOPHILS ABSOLUTE COUNT (10*3/UL) BY AUTOMATED COUNT 0.1 10*3/uL Normal 0.0-0.2 [facility] Comment on above: Performed By: #### C BCA #### [facility] ([facility]) [address] [place] [address]. [place] [address] VIR BASOPHILS RELATIVE PERCENT BY AUTOMATED COUNT 0.7 % Normal [facility] Comment on above: Performed By: #### C BCA #### [facility] ([address] [address] VIR CELLAVISION DIFFERENTIAL TYPE AUTOMATED DIFFERENTIAL Normal [facility] Comment on above: Performed By: #### C BCA #### [facility] ([address] [address] VIR Eosinophils (Bld) [#/Vol] 0.0 10*3/uL Normal 0.0-0.4 [facility] Comment on above: Performed By: #### C BCA #### [facility] ([address] [address] VIR EOSINOPHILS RELATIVE PERCENT BY AUTOMATED COUNT 0.5 % Normal [facility] Comment on above: Performed By: #### C BCA #### [facility] ([address] [address] VIR Erythrocyte distribution width (RBC) [Ratio] 13.2 % Normal 11.5-15 [facility] Comment on above: Performed By: #### C BCA #### [facility] ([address] [address] VIR Hematocrit (Bld) [Volume fraction] 43.1 % Normal 35-47 [facility] Comment on above: Performed By: #### C BCA #### [facility] ([place]) [address] [place] [address] VIR Hemoglobin (Bld) [Mass/Vol] 14.6 g/dL Normal 11.7-15.5 [facility] Comment on above: Performed By: #### C BCA #### [facility] ([address] [address] VIR LYMPHOCYTES ABSOLUTE COUNT (10*3/UL) BY AUTOMATED COUNT 1.7 10*3/uL Normal 1.0-3.5 [facility] Comment on above: Performed By: #### C BCA #### [facility] ([address] [address] VIR LYMPHOCYTES RELATIVE PERCENT BY AUTOMATED COUNT 20.4 % Normal [facility] Comment on above: Performed By: #### C BCA #### [facility] ([address] [address] VIR MCH (RBC) [Entitic mass] 30.8 pg Normal 27-34 [facility] Comment on above: Performed By: #### C BCA #### [facility] ([address] [address] VIR MCHC (RBC) [Mass/Vol] 33.8 g/dL Normal 32-36 [facility] Comment on above: Performed By: #### C BCA #### [facility] ([address] [address] VIR MCV (RBC) [Entitic vol] 91 fL Normal 80-100 [facility] Comment on above: Performed By: #### C BCA #### [facility] ([address] [address] VIR MONOCYTES ABSOLUTE COUNT (10*3/UL) BY AUTOMATED COUNT 0.7 10*3/uL Normal 0.0-0.9 [facility] Comment on above: Performed By: #### C BCA #### [facility] ([address] [address] VIR MONOCYTES RELATIVE PERCENT BY AUTOMATED COUNT 8.1 % Normal [facility] Comment on above: Performed By: #### C BCA #### [facility] ([address] [place] [address] VIR NEUTROPHILS ABSOLUTE COUNT BY AUTOMATED COUNT 6.0 10*3/uL Normal 1.5-6.6 [facility] Comment on above: Performed By: #### C BCA #### [facility] ([address] [place] [address] VIR NEUTROPHILS RELATIVE PERCENT BY AUTOMATED COUNT 70.3 % Normal [facility] Comment on above: Performed By: #### C BCA #### [facility] ([address] [place] [address] VIR Platelet mean volume (Bld) [Entitic vol] 8.1 fL Normal 7-12 [facility] Comment on above: Performed By: #### C BCA #### [facility] ([address] [place] [address] VIR Platelets (Bld) [#/Vol] 239 10*3/uL Normal 150-450 [facility] Comment on above: Performed By: #### C BCA #### [facility] ([address] [place] [address] VIR RBC COUNT 4.72 X10E12/L Normal 3.8-5.2 [facility] Comment on above: Performed By: #### C BCA #### [facility] ([address] [place] [address] VIR WBC (Bld) [#/Vol] 8.6 10*3/uL Normal 4-11 [facility] Comment on above: Performed By: #### C BCA #### [facility] ([address] [place] [address] VIR COMPREHENSIVE METABOLIC PANE Yogi 02-26-2025 Albumin [Mass/Vol] 4.5 g/dL Normal 3.2-5.3 [facility] Comment on above: Performed By: #### C MP #### [facility] ([place] [address] [place] [address] VIR ALP [Catalytic activity/Vol] 67 U/L Normal 39-130 [facility] Comment on above: Performed By: #### C MP #### [facility] ([address] [place] [address] VIR ALT [Catalytic activity/Vol] 27 U/L Normal <=31 [facility] Comment on above: Performed By: #### C MP #### [facility] ([address] [place] [address] VIR Anion gap [Moles/Vol] 5 mmol/L Normal 5-15 [facility] Comment on above: Performed By: #### C MP #### [facility] ([address] [place] [address] VIR AST [Catalytic activity/Vol] 24 U/L Normal <=41 [facility] Comment on above: Performed By: #### C MP #### [facility] ([address] [place] [address] VIR Bilirubin [Mass/Vol] 2.0 mg/dL High 0.3-1.2 [facility] Comment on above: Performed By: #### C MP #### [facility] ([address] [place] [address] VIR Calcium [Mass/Vol] 8.8 mg/dL Normal 8.5-10.5 [facility] Comment on above: Performed By: #### C MP #### [facility] ([address] [place] [address] VIR Chloride [Moles/Vol] 100 mmol/L Normal 98-109 [facility] Comment on above: Performed By: #### C MP #### [facility] ([address] [place] [address] VIR CO2 [Moles/Vol] 27 mmol/L Normal 22-32 [facility] Comment on above: Performed By: #### C MP #### [facility] ([address] [place] [address] VIR Creatinine [Mass/Vol] 0.71 mg/dL Normal 0.40-1.00 [facility] Comment on above: Result Comment: METH OD TRACEABLE TO IDMS STANDARD Performed By: #### C MP #### [facility] ([address] [place] [address] VIR EGFR (CKD-EPI) NON-RACE DEPENDENT >^90 Normal >=60 [facility] Comment on above: Result Comment: eGFR not reported due to non-numeric value for Creatinine. Reported eGFR is based on the CKD-EPI 1 equation that does not use a race coefficient. Performed By: #### C MP #### [facility] ([address] [place] [address] VIR Glucose [Mass/Vol] 100 mg/dL High 65-99 [facility] Comment on above: Performed By: #### C MP #### [facility] ([address] [place] [address] VIR Potassium [Moles/Vol] 3.4 mmol/L Low 3.5-5.0 [facility] Comment on above: Performed By: #### C MP #### [facility] ([address] [place] [address] VIR Protein [Mass/Vol] 7.4 g/dL Normal 6.0-8.0 [facility] Comment on above: Performed By: #### C MP #### [facility] ([address] [place] [address] VIR Sodium [Moles/Vol] 132 mmol/L Low 134-146 [facility] Comment on above: Performed By: #### C MP #### [facility] ([address] [place] [address] VIR Urea nitrogen [Mass/Vol] 12 mg/dL Normal 5-23 [facility] Comment on above: Performed By: #### C MP #### [facility] ([address] [address] VIR HCG-BETA, SERUMon 02-26-2025 [place] [address] m[IU]/mL Normal [facility] Comment on above: Order Comment: WEEKS [...] neoplasms. Performed By: #### H CG #### [facility] ([address] [address] VIR POCT NURSING URINE MACROSCOP IC UAon 02-26-2025 BILIRUBIN EMILY Negative Normal Negative [facility] Comment on above: Performed By: #### N UM #### [facility] ([address] [address] VIR BLOOD/HGB EMILY Large Abnormal Negative [facility] Comment on above: Performed By: #### N UM #### [facility] ([place] [address] [place] [address] VIR GLUCOSE EMILY Negative Normal Negative [facility] Comment on above: Performed By: #### N UM #### [facility] ([place] [address] [place] [address] VIR KETONES EMILY 15 mg/dL Abnormal Negative [facility] Comment on above: Performed By: #### N UM #### [facility] ([place] [address] [place] [address] VIR LEUKOCYTE ESTERASE EMILY Negative Normal Negative Pr [facility] Comment on above: Performed By: #### N UM #### [address] [place] [address] VIR NITRITE EMILY Negative Normal Negative [facility] Comment on above: Performed By: #### N UM #### [facility] ([address] [place] [address] VIR PH EMILY 6.0 Normal 5.0, 6.0, 6.5, 7.0, 7.5, 8.0, 8.5, 5.5 [facility] Comment on above: Performed By: #### N UM #### [facility] ([place] [address] [place] [address] VIR PROTEIN EMILY Negative Normal Negative [facility] Comment on above: Performed By: #### N UM #### [facility] ([place] [address] [place] [address] VIR SPECIFIC GRAVITY EMILY 1.015 Normal 1.010, 1.015, 1.020, 1.025 [facility] Comment on above: Performed By: #### N UM #### [facility] ([place] [address] [place] [address] VIR UROBILINOGEN EMILY 0.2 E.U./dL Normal [facility] Comment on above: Performed By: #### N UM #### [facility] ([facility]) [address] [place] [address]. [place] [address] VIR POCT , URINE (NUCG) on 02-26-2025 Beta HCG ( test) Ql (U) Positive Abnormal Negative [facility] Comment on above: Performed By: #### N UCG #### [facility] ([facility]) [address] [place] [address]. [place] [address] VIR URINE CULTUREon 02-26-2025 Bacteria identified Cx Nom (U) CULTURE RESULTS <10,000 ORGANISMS/mL NORMAL URO GENITAL SHAQ Normal [facility] Comment on above: Performed By: #### 2 0415-6 #### [facility] ([id number]) [address] [place] [address], [place] [address] US PREG LESS THAN 14 WKS FOR [...] Alonso MD on 02/26/2025 8:17 PM Normal [facility] HCG, Quanton 02-22-2025 HCG, Quant 5908.0 mIU/mL High <5 [facility] Comment on above: Result Comment: Non-preg premeno <=5 Postmeno <=8 Male <=3 If HCG results do not concur with clinical observations, additional testing to confirm results is recommended. Performed By: #### B HCG #### [facility] [address] [place] [address] Candlemaker: Caden Brown MD HCG, Quantitative, on 02-22-2025 HCG.beta subunit Qn 5908 m[IU]/mL High NINF [facility] Comment on above: Non-preg premeno <=5 Postmeno <=8 Male <=3 If HCG results do not concur with clinical observations, additional testing to confirm results is recommended. Interpretation and review of laboratory results Abnormal [facility] ABO/RH Typeon 02-18-2025 ABO and Rh group Nom (Bld) Blood group A Rh(D) positive Normal [facility] Comment on above: Result Comment: PERF ORMED BY: [facility] [address] [place] [place] [address] PATHOLOGIST REAMING MACHINE TENDER SHANITA MÁRQUEZ M.D. Alanine aminotransferase [En zymatic activity/volume] in Serum or PlasmaOrdered By: Yaritza Bauer on 02-18-2025 ALT [Catalytic activity/Vol] Alanine aminotransferase [Enzymatic activity/volume] in Serum or Plasma [facility] ALT [Catalytic activity/Vol] 21 U/L Normal [facility] Comment on above: Performed By: #### L IPASE, PT, CBC, HEPATIC, BMP, PTT #### [facility] [address] [place] [address] [place] Albumin [Mass/volume] in Ser um or Plasma by Bromocresol green (BCG) dye binding methoOrdered By: Yaritza Bauer on 02-18-2025 Albumin BCG dye [Mass/Vol] Albumin [Mass/volume] in Serum or Plasma by Bromocresol green (BCG) dye binding metho 3.5-5.7 [facility] Albumin BCG dye [Mass/Vol] 4.3 g/dL 3.5-5.7 [facility] Alkaline phosphatase [Enzyma tic activity/volume] in Serum or PlasmaOrdered By: Yaritza Bauer on 02-18-2025 ALP [Catalytic activity/Vol] Alkaline phosphatase [Enzymatic activity/volume] in Serum or Plasma 34-104 [facility] ALP [Catalytic activity/Vol] 58 U/L Normal 34-104 [facility] Comment on above: Performed By: #### L IPASE, PT, CBC, HEPATIC, BMP, PTT #### [place] [id number] [place] Appearance of UrineOrdered B y: Yaritza Bauer on 02-18-2025 Appearance (U) Urine appearance Clear [facility] Appearance (U) Clear Normal Clear [facility] Comment on above: Order Comment: Name Collection Type:: Clean-Voided Midstream Performed By: #### U HCG, UA #### [place] [address] [place] Aspartate aminotransferase [ Enzymatic activity/volume] in Serum or PlasmaOrdered By: Yaritza Bauer on 02-18-2025 AST [Catalytic activity/Vol] Aspartate aminotransferase [Enzymatic activity/volume] in Serum or Plasma 13-39 [facility] AST [Catalytic activity/Vol] 21 U/L Normal [facility] Comment on above: Performed By: #### L IPASE, PT, CBC, HEPATIC, BMP, PTT #### [address] Basic Metabolic Panelon 02-06 Creatinine Clr Calc Pharmacy 107.28 Normal [facility] Comment on above: Performed By: #### F S #### [facility] [address] [place] [address] #### GCCHLAMAMP #### [facility] , GFR/1.73 sq M.predicted MDRD (S/P/Bld) [Vol rate/Area] mL/min/{1.73_m2} Normal [facility] Comment on above: Performed By: #### F S #### [facility] [address] [place] [address] [place] #### GCCHLAMAMP #### [facility] , Basophils Auto (Bld) [#/Vol] Ordered By: Yaritza Bauer on 02-18-2025 Basophils (Bld) [#/Vol] Automated basophil count 0.0-0.2 [facility] Basophils [#/volume] in Bloo d by Automated countOrdered By: Yaritza Bauer on 02-18-2025 Basophils (Bld) [#/Vol] 0.1 10*3/uL Normal 0.0-0.2 [facility] Comment on above: Result Comment: PERF ORMED BY: [place] [address] PATHOLOGIST REAMING MACHINE TENDER SHANITA MÁRQUEZ M.D. Performed By: #### L IPASE, PT, CBC, HEPATIC, BMP, PTT #### [address] Basophils/100 WBC Auto (Bld) Ordered By: Yaritza Bauer on 02-18-2025 Basophils/100 WBC (Bld) Automated basophil % . [facility] Basophils/100 leukocytes in Blood by Automated countOrdered By: Yaritza Bauer on 02-18-2025 Basophils/100 WBC (Bld) 1.9 % Normal . [facility] Comment on above: Performed By: #### L IPASE, PT, CBC, HEPATIC, BMP, PTT #### [address] Bilirubin Test strip Ql (U)O rdered By: Yaritza Bauer on 02-18-2025 Bilirubin Ql (U) Bilirubin.total [Presence] in Urine by Test strip Negative [facility] Bilirubin Ql (U) Negative Negative [facility] Bilirubin.direct [Mass/volum e] in Serum or PlasmaOrdered By: Yaritza Bauer on 02-18-2025 Bilirubin.direct [Mass/Vol] Bilirubin.direct [Mass/volume] in Serum or Plasma High 0.03-0.18 [facility] Bilirubin.direct [Mass/Vol] 0.30 mg/dL High 0.03-0.18 [facility] Bilirubin.total [Mass/volume ] in Serum or PlasmaOrdered By: Yaritza Bauer on 02-18-2025 Bilirubin [Mass/Vol] Bilirubin.total [Mass/volume] in Serum or Plasma High 0.3-1.0 [facility] Bilirubin [Mass/Vol] 1.1 mg/dL High 0.3-1.[address] [facility] Comment on above: Performed By: #### L IPASE, PT, CBC, HEPATIC, BMP, PTT #### [facility] [address] [place] [address] Calcium [Mass/volume] in Ser um or PlasmaOrdered By: Yaritza Bauer on 02-18-2025 Calcium [Mass/Vol] Calcium [Mass/volume ] in Serum or Plasma 8.6-10.3 [facility] Calcium [Mass/Vol] 9.2 mg/dL Normal 8.6-10.3 [facility] Comment on above: Performed By: #### F S #### [facility] [address] [place] [address] #### GCCHLAMAMP #### [facility] , Carbon dioxide, total [Moles /volume] in Serum or PlasmaOrdered By: Yaritza Bauer on 02-18-2025 CO2 [Moles/Vol] Carbon dioxide, tota l [Moles/volume] in Serum or Plasma 21.0-31.0 [facility] CO2 [Moles/Vol] 27.9 mmol/L Normal 21.0-31.0 [facility] Comment on above: Performed By: #### F S #### [facility] [address] [place] [address] #### GCCHLAMAMP #### [facility] , Chlamydia/GC Amplificationon 02-18-2025 Chlamydia Trachomotis, JANET Negative Normal Negative [facility] Comment on above: Order Comment: SOURC E OF SPECIMEN: Genital Performed By: #### F S #### [facility] [address] [place] [address] #### GCCHLAMAMP #### [facility] , Neisseria Gonorrhoeae, JANET Negative Normal Negative [facility] Comment on above: Order Comment: SOURC E OF SPECIMEN: Genital Result Comment: Perf ormed at: =G - [facility] [address] [id number] Candlemaker: Barbie Mota MD, Phone: [phone] PERFORMED BY: [place] [address] PATHOLOGIST REAMING MACHINE TENDER SHANITA MÁRQUEZ M.D. Performed By: #### F S #### [place] [address] [place] #### GCCHLAMAMP #### [facility] , Chloride [Moles/volume] in S emiliana or PlasmaOrdered By: Yaritza Bauer on 02-18-2025 Chloride [Moles/Vol] Chloride [Moles/vol ume] in Serum or Plasma 98-107 [facility] Chloride [Moles/Vol] 104 mmol/L Normal 98-[address] [facility] Comment on above: Performed By: #### F S #### [facility] [address] #### GCCHLAMAMP #### [facility] , Choriogonadotropin.beta subu nit [Units/volume] in Serum or PlasmaOrdered By: Yaritza Bauer on 02-18-2025 HCG.beta subunit Qn Choriogonadotropin.b eta subunit [Units/volume] in Serum or Plasma [facility] Comment on above: Approximate Approxim ate hCG Gestational Age Range (mIU/ml) (weeks)0.2-1 5-50 1-2 50-500 2-3 100-5,000 3-4 500-10,000 4-5 1,000-50,000 5-6 10,000-100,000 6-8 15,000-200,000 8-12 10,000-100,000 HCG.beta subunit Qn 1673.00 m[IU]/mL [facility] Comment on above: Approximate Approxim ate hCG Gestational Age Range (mIU/ml) (weeks)0.2-1 5-50 1-2 50-500 2-3 100-5,000 3-4 500-10,000 4-5 1,000-50,000 5-6 10,000-100,000 6-8 15,000-200,000 8-12 10,000-100,000 Color Auto (U)Ordered By: Yury Bauer on 02-18-2025 Color (U) Color of Urine by Auto Yellow [facility] Color of Urine by AutoOrdere d By: Yaritza Bauer on 02-18-2025 Color (U) Yellow Normal Yellow [facility] Comment on above: Order Comment: Name Collection Type:: Clean-Voided Midstream Performed By: #### U HCG, UA #### [address] Complete Blood Count Auto Di ffon 02-18-2025 Mean Corpuscular HGB Conc 33.7 g/dL Normal 32.0-35.0 [facility] Comment on above: Performed By: #### L IPASE, PT, CBC, HEPATIC, BMP, PTT #### [address] Monocytes/100 WBC (Bld) 22.50 % High 0.00-20.00 [facility] Comment on above: Result Comment: For adults in ED, MDW > 20.0 may be associated with a higher risk of sepsis during the first 12 hrs of hospital admission Performed By: #### L IPASE, PT, CBC, HEPATIC, BMP, PTT #### [address] NRBC% 0.1 /100{WBC} Normal 0-0.5 [facility] Comment on above: Performed By: #### L IPASE, PT, CBC, HEPATIC, BMP, PTT #### [address] Creatinine [Mass/volume] in Serum or PlasmaOrdered By: Yaritza Bauer on 02-18-2025 Creatinine [Mass/Vol] Creatinine [Mass/v olume] in Serum or Plasma 0.60-1.20 [facility] Creatinine [Mass/Vol] 0.77 mg/dL Normal 0.60-1.20 [facility] Comment on above: Performed By: #### F S #### [address] #### GCCHLAMAMP #### [facility] , Eosinophils Auto (Bld) [#/Vo l]Ordered By: Yaritza Bauer on 02-18-2025 Eosinophils (Bld) [#/Vol] Automated eosinophil count 0.0-0.45 [facility] Eosinophils [#/volume] in Bl ood by Automated countOrdered By: Yaritza Bauer on 02-18-2025 Eosinophils (Bld) [#/Vol] 0.0 10*3/uL Normal 0.0-0.45 [facility] Comment on above: Performed By: #### L IPASE, PT, CBC, HEPATIC, BMP, PTT #### [address] Eosinophils/100 WBC Auto (Bl d)Ordered By: Yaritza Bauer on 02-18-2025 Eosinophils/100 WBC (Bld) Automated eosinophil % . [facility] Eosinophils/100 leukocytes i n Blood by Automated countOrdered By: Yaritza Bauer on 02-18-2025 Eosinophils/100 WBC (Bld) 0.7 % Normal . [facility] Comment on above: Performed By: #### L IPASE, PT, CBC, HEPATIC, BMP, PTT #### [facility] [address] [place] [address] Erythrocyte distribution wid th Auto (RBC) [Ratio]Ordered By: Yaritza Bauer on 02-18-2025 Erythrocyte distribution width (RBC) [Ratio] Erythrocyte distribution width [Ratio] by Automated count 11.9-15.3 [facility] Erythrocyte distribution wid th [Ratio] by Automated countOrdered By: Yaritza Bauer on 02-18-2025 Erythrocyte distribution width (RBC) [Ratio] 13.5 % Normal 11.9-15.3 [facility] Comment on above: Performed By: #### L IPASE, PT, CBC, HEPATIC, BMP, PTT #### [facility] [address] [place] [address] Erythrocytes [#/volume] in B lood by Automated countOrdered By: Yaritza Bauer on 02-18-2025 RBC (Bld) [#/Vol] 4.56 10*6/uL Normal 3.60-5.00 [facility] Comment on above: Performed By: #### L IPASE, PT, CBC, HEPATIC, BMP, PTT #### [facility] [address] [place] [address] Fungal Smearon 02-18-2025 Fungal Smear Fungus Smear Results No Yeast Like Elements Seen ------ Trichomonas Screen No Trichomonas Seen Trich Reference Reference range = None Seen PERFORMED BY: [place] [address] PATHOLOGIST REAMING MACHINE TENDER SHANITA MÁRQUEZ M.D. Normal [facility] Comment on above: Performed By: #### F S #### [facility] [address] [place] [address] [place] #### GCCHLAMAMP #### [facility] , Fungal smearOrdered By: Neha Bauer on 02-18-2025 Fungus identified Fungus stain Nom (Unsp spec) Fungal smear [facility] Fungus identified Fungus stain Nom (Unsp spec) [facility] Globulin Calc (S) [Mass/Vol] Ordered By: Yaritza Bauer on 02-18-2025 Globulin (S) [Mass/Vol] Serum globulin measurement by calculation (mass/volume) [facility] Glucose [Mass/volume] in Ser um or PlasmaOrdered By: Yaritza Bauer on 02-18-2025 Glucose [Mass/Vol] Glucose [Mass/volume ] in Serum or Plasma 70-100 [facility] Comment on above: ADA recommended refe rence rangeRandom Glucose Reference Range is dependent on time and content of last meal. Glucose of more than 200 mg/dL in a nonstressed, ambulatory subject supports the diagnosis of Diabetes Mellitus. Glucose [Mass/Vol] 87 mg/dL Normal 70-100 [facility] Comment on above: ADA recommended refe rence rangeRandom Glucose Reference Range is dependent on time and content of last meal. Glucose of more than 200 mg/dL in a nonstressed, ambulatory subject supports the diagnosis of Diabetes Mellitus. Result Comment: [place] om Glucose Reference Range is dependent on time and content of last meal. Glucose of more than 200 mg/dL in a nonstressed, ambulatory subject supports the diagnosis of Diabetes Mellitus. ADA recommended reference range Performed By: #### F S #### [facility] [address] [place] [address] [place] #### GCCHLAMAMP #### [facility] , Glucose [Mass/volume] in Uri ne by Test stripOrdered By: Yaritza Bauer on 02-18-2025 Glucose Test strip (U) [Mass/Vol] Glucose [Mass/volume] in Urine by Test strip Normal [facility] Glucose Test strip (U) [Mass/Vol] Normal mg/dL Normal [facility] HCG ( test) IA.rapi d Ql (U)Ordered By: Yaritza Bauer on 02-18-2025 HCG ( test) Ql (U) Urine human chorionic gonadotropin (hCG) detection by immunoassay [facility] HCG ( test) Ql (U) Positive [facility] HCG,Quantitativeon HCG,Quantitative 1673.00 m[iU]/mL Normal [facility] Comment on above: Result Comment: Appr oximate Approximate hCG Gestational Age Range (mIU/ml) (weeks) 0.2-1 5-50 1-2 50-500 2-3 100-5,000 3-4 500-10,000 4-5 1,000-50,000 5-6 10,000-100,000 6-8 15,000-200,000 8-12 10,000-100,000 PERFORMED BY: [place] [address] PATHOLOGIST REAMING MACHINE TENDER SHANITA MÁRQUEZ M.D. Performed By: #### F S #### [facility] [address] [place] [address] #### GCCHLAMAMP #### [facility] , HCG,Urineon 02-18-2025 Beta HCG ( test) Ql (U) Positive [facility] Comment on above: Order Comment: Name Collection Type:: Clean-Voided Midstream Result Comment: PERF ORMED BY: [place] [address] PATHOLOGIST REAMING MACHINE TENDER SHANITA MÁRQUEZ M.D. Performed By: #### U HCG, UA #### [facility] [address] [place] [address] Hematocrit Auto (Bld) [Volum e fraction]Ordered By: Yaritza Bauer on 02-18-2025 Hematocrit (Bld) [Volume fraction] Hematocrit [Volume Fraction] of Blood by Automated count 34.0-46.4 [facility] Hematocrit [Volume Fraction] of Blood by Automated countOrdered By: Yaritza Bauer on 02-18-2025 Hematocrit (Bld) [Volume fraction] 41.8 % Normal 34.0-46.4 [facility] Comment on above: Performed By: #### L IPASE, PT, CBC, HEPATIC, BMP, PTT #### [facility] [address] Hemoglobin Test strip Ql (U) Ordered By: Yaritza Bauer on 02-18-2025 Hemoglobin Ql (U) Hemoglobin [Presence ] in Urine by Test strip Negative [facility] Hemoglobin Ql (U) Negative Negative [facility] Hemoglobin [Mass/volume] in BloodOrdered By: Yaritza Bauer on 02-18-2025 Hemoglobin (Bld) [Mass/Vol] Hemoglobin [Mass/volume] in Blood 11.8-15.4 [facility] Hemoglobin (Bld) [Mass/Vol] 14.1 g/dL Normal 11.8-15.4 [facility] Comment on above: Performed By: #### L IPASE, PT, CBC, HEPATIC, BMP, PTT #### [address] Hepatic Panelon 02-18-2025 Albumin [Mass/Vol] 4.3 g/dL Normal 3.5-5.7 [facility] Comment on above: Performed By: #### L IPASE, PT, CBC, HEPATIC, BMP, PTT #### [address] Bilirubin,Indirect 0.8 mg/dL Normal [facility] Comment on above: Performed By: #### L IPASE, PT, CBC, HEPATIC, BMP, PTT #### [address] Bilirubin.indirect [Mass/Vol] 0.30 mg/dL High 0.03-0.18 [facility] Comment on above: Performed By: #### L IPASE, PT, CBC, HEPATIC, BMP, PTT #### [address] INR in Platelet poor plasma by Coagulation assayOrdered By: Yaritza Bauer on 02-18-2025 INR Coag (PPP) [Relative time] INR in Platelet poor plasma by Coagulation assay [facility] Comment on above: INR Therapeutic Rang [...] Coag (PPP) [Relative time] 1.1 {INR} Normal [facility] Comment on above: INR Therapeutic Rang [...] 4.5 Performed By: #### F S #### [facility] [address] [place] [address] #### GCCHLAMAMP #### [facility] , Ketones Test strip Ql (U)Ord ered By: Yaritza Bauer on 02-18-2025 Ketones Ql (U) Ketones [Presence] i n Urine by Test strip Negative [facility] Ketones [Presence] in Urine by Test stripOrdered By: Yaritza Bauer on 02-18-2025 Ketones Ql (U) Negative Normal Negative [facility] Comment on above: Order Comment: Name Collection Type:: Clean-Voided Midstream Performed By: #### U HCG, UA #### [facility] [address] [place] [address] Laboratory - Microbiology an d Antimicrobial susceptibilityOrdered By: Yaritza Bauer on 02-18-2025 C. trachomatis DNA JANET+probe Ql (Unsp spec) Negative Negative [facility] N. gonorrhoeae DNA JANET+probe Ql (Unsp spec) Negative Negative [facility] Comment on above: Performed at: =[address] [id number] Director: Barbie Mota MD, Phone: [phone] Leukocyte esterase [Presence ] in Urine by Test stripOrdered By: Yaritza Bauer on 02-18-2025 Leukocyte esterase Test strip Ql (U) Leukocyte esterase [Presence] in Urine by Test strip Negative [facility] Leukocyte esterase Test strip Ql (U) Negative Normal Negative [facility] Comment on above: Order Comment: Name Collection Type:: Clean-Voided Midstream Performed By: #### U HCG, UA #### [facility] [address] Leukocytes [#/volume] correc roe for nucleated erythrocytes in Blood by Automated counOrdered By: Yaritza Bauer on 02-18-2025 WBC corrected for nucl RBC Auto (Bld) [#/Vol] Leukocytes [#/volume] corrected for nucleated erythrocytes in Blood by Automated coun 3.8-11.6 [facility] WBC corrected for nucl RBC Auto (Bld) [#/Vol] 5.2 10*3/uL 3.8-11.6 [facility] Leukocytes [#/volume] in Blo od by Automated countOrdered By: Yaritza Bauer on 02-18-2025 WBC (Bld) [#/Vol] 5.2 10*3/uL Normal 3.8-11.6 [facility] Comment on above: Performed By: #### L IPASE, PT, CBC, HEPATIC, BMP, PTT #### [facility] [address] [place] [address] [place] Lipase [Enzymatic activity/v olume] in Serum or PlasmaOrdered By: Yaritza Bauer on 02-18-2025 Lipase [Catalytic activity/Vol] Lipase [Enzymatic activity/volume] in Serum or Plasma 11.0-82.0 [facility] Lipase [Catalytic activity/Vol] 22.0 U/L Normal 11.0-82.0 [facility] Comment on above: Result Comment: PERF ORMED BY: [place] [address] PATHOLOGIST REAMING MACHINE TENDER SHANITA MÁRQUEZ M.D. Performed By: #### F S #### [facility] [address] [place] [address] #### GCCHLAMAMP #### [facility] , Lymphocytes Auto (Bld) [#/Vo l]Ordered By: Yaritza Bauer on 02-18-2025 Lymphocytes (Bld) [#/Vol] Lymphocytes [#/volume] in Blood by Automated count 1.00-4.8 [facility] Lymphocytes [#/volume] in Bl ood by Automated countOrdered By: Yaritza Bauer on 02-18-2025 Lymphocytes (Bld) [#/Vol] 1.6 10*3/uL Normal 1.00-4.8 [facility] Comment on above: Performed By: #### L IPASE, PT, CBC, HEPATIC, BMP, PTT #### [facility] [address] [place] [address] Lymphocytes/100 WBC Auto (Bl d)Ordered By: Yaritza Bauer on 02-18-2025 Lymphocytes/100 WBC (Bld) Lymphocytes/100 leukocytes in Blood by Automated count . [facility] Lymphocytes/100 leukocytes i n Blood by Automated countOrdered By: Yaritza Bauer on 02-18-2025 Lymphocytes/100 WBC (Bld) 30.2 % Normal . [facility] Comment on above: Performed By: #### L IPASE, PT, CBC, HEPATIC, BMP, PTT #### [facility] [address] [place] [address] MCH Auto (RBC) [Entitic mass ]Ordered By: Yaritza Bauer on 02-18-2025 MCH (RBC) [Entitic mass] MCH [Entitic mass] by Automated count 24.7-34.3 [facility] MCH [Entitic mass] by Automa roe countOrdered By: Yaritza Bauer on 02-18-2025 MCH (RBC) [Entitic mass] 30.9 pg Normal 24.7-34.3 [facility] Comment on above: Performed By: #### L IPASE, PT, CBC, HEPATIC, BMP, PTT #### [address] MCHC Auto (RBC) [Mass/Vol]Or dered By: Yaritza Bauer on 02-18-2025 MCHC (RBC) [Mass/Vol] MCHC [Mass/volume] by Automated count 32.0-35.0 [facility] MCHC (RBC) [Mass/Vol] 33.7 g/dL 32.0-35.0 [facility] MCV Auto (RBC) [Entitic vol] Ordered By: Yaritza Bauer on 02-18-2025 MCV (RBC) [Entitic vol] MCV [Entitic vol ume] by Automated count 80-100 [facility] MCV [Entitic volume] by Auto mated countOrdered By: Yaritza Bauer on 02-18-2025 MCV (RBC) [Entitic vol] 91.6 fL Normal 80-100 [facility] Comment on above: Performed By: #### L IPASE, PT, CBC, HEPATIC, BMP, PTT #### [address] Monocyte distribution width [Entitic volume] in Blood by AutomatedOrdered By: Yaritza Bauer on 02-18-2025 Monocyte distribution width Auto (Bld) [Entitic vol] Monocyte distribution width [Entitic volume] in Blood by Automated High 0.00-20.00 [facility] Comment on above: For adults in ED, MD W > 20.0 may be associated with a higher risk of sepsis during the first 12 hrs of hospital admission Monocyte distribution width Auto (Bld) [Entitic vol] 22.50 % High 0.00-20.00 [facility] Comment on above: For adults in ED, MD W > 20.0 may be associated with a higher risk of sepsis during the first 12 hrs of hospital admission Monocytes Auto (Bld) [#/Vol] Ordered By: Yaritza Bauer on 02-18-2025 Monocytes (Bld) [#/Vol] Automated blood monocyte count 0.0-0.8 [facility] Monocytes [#/volume] in Bloo d by Automated countOrdered By: Yaritza Bauer on 02-18-2025 Monocytes (Bld) [#/Vol] 0.3 10*3/uL Normal 0.0-0.8 [facility] Comment on above: Performed By: #### L IPASE, PT, CBC, HEPATIC, BMP, PTT #### [facility] [address] [place] [address] Monocytes/100 WBC Auto (Bld) Ordered By: Yaritza Bauer on 02-18-2025 Monocytes/100 WBC (Bld) Automated monocyte % . [facility] Monocytes/100 leukocytes in Blood by Automated countOrdered By: Yaritza Bauer on 02-18-2025 Monocytes/100 WBC (Bld) 6.6 % Normal . [facility] Comment on above: Performed By: #### L IPASE, PT, CBC, HEPATIC, BMP, PTT #### [facility] [address] [place] [address] [place] Neutrophils Auto (Bld) [#/Vo l]Ordered By: Yaritza Bauer on 02-18-2025 Neutrophils (Bld) [#/Vol] Neutrophils [#/volume] in Blood by Automated count 1.8-7.7 [facility] Neutrophils [#/volume] in Bl ood by Automated countOrdered By: Yaritza Bauer on 02-18-2025 Neutrophils (Bld) [#/Vol] 3.2 10*3/uL Normal 1.8-7.7 [facility] Comment on above: Performed By: #### L IPASE, PT, CBC, HEPATIC, BMP, PTT #### [facility] [address] [place] [address] [place] Neutrophils/100 WBC Auto (Bl d)Ordered By: Yaritza Bauer on 02-18-2025 Neutrophils/100 WBC (Bld) Automated neutrophil % . [facility] Neutrophils/100 leukocytes i n Blood by Automated countOrdered By: Yaritza Bauer on 02-18-2025 Neutrophils/100 WBC (Bld) 60.6 % Normal . [facility] Comment on above: Performed By: #### L IPASE, PT, CBC, HEPATIC, BMP, PTT #### [facility] [address] [place] [address] Nitrite Test strip Ql (U)Ord ered By: Yaritza Bauer on 02-18-2025 Nitrite Ql (U) Nitrite [Presence] i n Urine by Test strip Negative [facility] Nitrite Ql (U) Negative Negative [facility] No Panel InformationOrdered By: Yaritza Bauer on 02-18-2025 Estimated GFR (CKD-EPI) > 60.0 mL/Min [facility] Creatinine Clearance (Chem 107.28 [facility] Nucleated erythrocytes [Pres ence] in Blood by Automated countOrdered By: Yaritza Bauer on 02-18-2025 Nucleated RBC Auto Ql (Bld) Nucleated erythrocytes [Presence] in Blood by Automated count 0-0.5 [facility] Nucleated RBC Auto Ql (Bld) 0.1 /100{WBC} 0-0.5 [facility] Partial Thromboplastin Timeo n 02-18-2025 aPTT Coag (Bld) [Time] 29.3 s Normal 25.1-36.5 [facility] Comment on above: Result Comment: A he matocrit value greater than 55% may lead to inaccurate results in coagulation testing. Patients having hematocrit values >55% require a special collection tube for coagulation studies. Please contact the laboratory at [phone] for redraw instructions. PERFORMED BY: [address] [place] [address] PATHOLOGIST REAMING MACHINE TENDER SHANITA MÁRQUEZ M.D. Performed By: #### F S #### [facility] [address] [place] [address] #### GCCHLAMAMP #### [facility] , Platelet mean volume Auto (B ld) [Entitic vol]Ordered By: Yaritza Bauer on 02-18-2025 Platelet mean volume (Bld) [Entitic vol] Platelet mean volume [Entitic volume] in Blood by Automated count 6.3-10.7 [facility] Platelet mean volume [Entiti c volume] in Blood by Automated countOrdered By: Yaritza Bauer on 02-18-2025 Platelet mean volume (Bld) [Entitic vol] 8.0 fL Normal 6.3-10.7 [facility] Comment on above: Performed By: #### L IPASE, PT, CBC, HEPATIC, BMP, PTT #### [facility] [address] [place] [address] Platelets Auto (Bld) [#/Vol] Ordered By: Yaritza Bauer on 02-18-2025 Platelets (Bld) [#/Vol] Platelets [#/vol ume] in Blood by Automated count 150-450 [facility] Platelets [#/volume] in Bloo d by Automated countOrdered By: Yaritza Bauer on 02-18-2025 Platelets (Bld) [#/Vol] 181 10*3/uL Normal 150-450 [facility] Comment on above: Performed By: #### L IPASE, PT, CBC, HEPATIC, BMP, PTT #### [facility] [address] [place] [address] Potassium [Moles/volume] in Serum or PlasmaOrdered By: Yaritza Bauer on 02-18-2025 Potassium [Moles/Vol] Potassium [Moles/v olume] in Serum or Plasma 3.5-5.1 [facility] Potassium [Moles/Vol] 3.6 mmol/L Normal 3.5-5.1 [facility] Comment on above: Performed By: #### F S #### [address] #### GCCHLAMAMP #### [facility] , Protein Test strip (U) [Mass /Vol]Ordered By: Yaritza Bauer on 02-18-2025 Protein (U) [Mass/Vol] Protein [Mass/vol ume] in Urine by Test strip Negative [facility] Protein (U) [Mass/Vol] Negative Negative [facility] Protein [Mass/volume] in Ser um or PlasmaOrdered By: Yaritza Bauer on 02-18-2025 Protein [Mass/Vol] Protein [Mass/volume ] in Serum or Plasma 6.4-8.9 [facility] Protein [Mass/Vol] 6.7 g/dL Normal 6.4-8.9 [facility] Comment on above: Performed By: #### L IPASE, PT, CBC, HEPATIC, BMP, PTT #### [facility] [address] [place] [address] Prothrombin time (PT)Ordered By: Yaritza Bauer on 02-18-2025 PT Coag (PPP) [Time] Prothrombin time (PT) 9.0- 12.9 [facility] Comment on above: A hematocrit value g reater than 55% may lead to inaccurate results in coagulation testing. Patients having hematocrit values >55% require a special collection tube for coagulation studies. Please contact the laboratory at [phone] for redraw instructions. PT Coag (PPP) [Time] 12.3 s Normal 9.0-12.[address] [facility] Comment on above: A hematocrit value g reater than 55% may lead to inaccurate results in coagulation testing. Patients having hematocrit values >55% require a special collection tube for coagulation studies. Please contact the laboratory at [phone] for redraw instructions. Result Comment: A he matocrit value greater than 55% may lead to inaccurate results in coagulation testing. Patients having hematocrit values >55% require a special collection tube for coagulation studies. Please contact the laboratory at [phone] for redraw instructions. Performed By: #### F S #### [address] #### GCCHLAMAMP #### [facility] , RBC Auto (Bld) [#/Vol]Ordere d By: Yaritza Bauer on 02-18-2025 RBC (Bld) [#/Vol] Erythrocytes [#/volu me] in Blood by Automated count 3.60-5.00 [facility] Serum globulin measurement b y calculation (mass/volume)Ordered By: Yaritza Bauer on 05-13-2025 Globulin (S) [Mass/Vol] 2.4 g/dL Normal [facility] Comment on above: Performed By: #### L IPASE, PT, CBC, HEPATIC, BMP, PTT #### [facility] [address] [place] [address] Serum or plasma albumin/glob ulin mass ratioOrdered By: Yaritza Bauer on 02-18-2025 Albumin/Globulin [Mass ratio] Serum or plasma albumin/globulin mass ratio [facility] Albumin/Globulin [Mass ratio] 1.8 {ratio} Normal [facility] Comment on above: Performed By: #### L IPASE, PT, CBC, HEPATIC, BMP, PTT #### [facility] [address] [place] [address] Serum or plasma anion gap de terminationOrdered By: Yaritza Bauer on 02-18-2025 Anion gap [Moles/Vol] Serum or plasma an ion gap determination 6.0-15.0 [facility] Anion gap [Moles/Vol] 8.7 mmol/L Normal 6.0-15.0 [facility] Comment on above: Performed By: #### F S #### [facility] [address] [place] [address] #### GCCHLAMAMP #### [facility] , Serum or plasma non-glucuron idated bilirubin measurement (mass/volume)Ordered By: Yaritza Bauer on 02-18-2025 Bilirubin.indirect [Mass/Vol] Serum or plasma non-glucuronidated bilirubin measurement (mass/volume) [facility] Bilirubin.indirect [Mass/Vol] 0.8 mg/dL [facility] Sodium [Moles/volume] in Ser um or PlasmaOrdered By: Yaritza Bauer on 02-18-2025 Sodium [Moles/Vol] Sodium [Moles/volume ] in Serum or Plasma 136-145 [facility] Sodium [Moles/Vol] 137 mmol/L Normal 136-145 [facility] Comment on above: Performed By: #### F S #### [facility] [address] [place] [address] [place] #### GCCHLAMAMP #### [facility] gravity Test strip (U) [Rel density]Ordered By: Yaritza Bauer on 02-18-2025 Specific gravity (U) [Rel density] Specific gravity of Urine by Test strip 1.001-1.03 0 [facility] Specific gravity (U) [Rel density] 1.021 1.001-1.03 0 [facility] Trichomonas vaginalis detect ion by wet preparationOrdered By: Yaritza Bauer on 02-18-2025 T. vaginalis Wet prep Ql (Unsp spec) Trichomonas vaginalis detection by wet preparation [facility] T. vaginalis Wet prep Ql (Unsp spec) [facility] US OB transvaginalon 025 US OB transvaginal [facility] [address] Ultrasound Report Signed Patient: Charis Allen MR#: [id number] : 2000 Acct:[id number] Age/Sex: 24 / F ADM Date: 02/18/25 Loc: ER Room: Type: [facility] ER Attending Dr: Ordering Provider: Yaritza Bauer APRN Date of Service: 02/18/25 US/US OB <= 14 weeks fetus: Abdominal Pain ([id number]) US/US OB transvaginal: R/O ECTOPIC Copies to: [...] Camacho M.D. 02/18/2025 8:45 PM Dictation Location: [facility] Tech: Roselia Cueva Transcribed By: REMINGTON 02/18/252044 Dictated By: Michael Camacho DO 02/18/252034 Signed By: 02/18/252044 Normal [facility] Urea nitrogen [Mass/volume] in Serum or PlasmaOrdered By: Yaritza Bauer on 02-18-2025 Urea nitrogen [Mass/Vol] Urea nitrogen [Mass/volume] in Serum or Plasma 05-02 [facility] Urea nitrogen [Mass/Vol] 13 mg/dL Normal 05-02 [facility] Comment on above: Performed By: #### F S #### [address] #### GCCHLAMAMP #### [facility] , Urinalysison 02-18-2025 Bilirubin,Urine Negative Normal Negative [facility] Comment on above: Order Comment: Name Collection Type:: Clean-Voided Midstream Performed By: #### U HCG, UA #### [place] [address] [place] Glucose Ql (U) Normal Normal Normal [facility] Comment on above: Order Comment: Name Collection Type:: Clean-Voided Midstream Performed By: #### U HCG, UA #### [place] [id number] [place] Nitrite,Urine Negative Normal Negative [facility] Comment on above: Order Comment: Name Collection Type:: Clean-Voided Midstream Performed By: #### U HCG, UA #### [place] [id number] [place] Occult Blood,Urine Negative Normal Negative [facility] Comment on above: Order Comment: Name Collection Type:: Clean-Voided Midstream Performed By: #### U HCG, UA #### [place] [id number] [place] Protein,Urine Negative Normal Negative [facility] Comment on above: Order Comment: Name Collection Type:: Clean-Voided Midstream Performed By: #### U HCG, UA #### [facility] [address] Specificy [place],Urine 1.021 Normal 1.00 1-1.03 0 [facility] Comment on above: Order Comment: Name Collection Type:: Clean-Voided Midstream Performed By: #### U HCG, UA #### [address] Urobilinogen,Urine Normal Normal Normal [facility] Comment on above: Order Comment: Name Collection Type:: Clean-Voided Midstream Performed By: #### U HCG, UA #### [address] Urobilinogen Test strip (U) [Mass/Vol]Ordered By: Yaritza Bauer on 02-18-2025 Urobilinogen (U) [Mass/Vol] Urobilinogen [Mass/volume] in Urine by Test strip Normal [facility] Urobilinogen (U) [Mass/Vol] Normal mg/dL Normal [facility] WBC Auto (Bld) [#/Vol]Ordere d By: Yaritza Bauer on 02-18-2025 WBC (Bld) [#/Vol] Leukocytes [#/volume ] in Blood by Automated count 3.8-11.6 [facility] aPTT in Platelet poor plasma by Coagulation assayOrdered By: Yaritza Bauer on 02-18-2025 aPTT Coag (PPP) [Time] Activated partial thromboplastin time (aPTT) in platelet poor plasma by coagulation a 25.1-36.5 [facility] Comment on above: A hematocrit value g reater than 55% may lead to inaccurate results in coagulation testing. Patients having hematocrit values >55% require a special collection tube for coagulation studies. Please contact the laboratory at [phone] for redraw instructions. aPTT Coag (PPP) [Time] 29.3 s 25.1-36.5 [facility] Comment on above: A hematocrit value g reater than 55% may lead to inaccurate results in coagulation testing. Patients having hematocrit values >55% require a special collection tube for coagulation studies. Please contact the laboratory at [phone] for redraw instructions. pH Test strip (U)Ordered By: Yaritza Bauer on 02-18-2025 pH (U) pH of Urine by Test strip 5.0-9.0 [facility] pH of Urine by Test stripOrd ered By: Yaritza Bauer on 02-18-2025 pH (U) 6.5 [pH] Normal 5.0-9.0 [facility] Comment on above: Order Comment: Name Collection Type:: Clean-Voided Midstream Performed By: #### U HCG, UA #### [address] CBC with Auto Differentialon 01-11-2025 Basophils (Bld) [#/Vol] 0.03 10*3/uL [facility] [employer] [facility] Basophils/100 WBC (Bld) 1 % 0 - 2 % B on [facility] Eosinophils (Bld) [#/Vol] 0.03 10*3/uL [facility] Eosinophils/100 WBC (Bld) 1 % 0 - 5 % [facility] Erythrocyte distribution width (RBC) [Ratio] 12.1 % 12.1 - 15.2 % [facility] Hematocrit (Bld) [Volume fraction] 40.6 % 36.0 - 46.0 % [facility] Hemoglobin (Bld) [Mass/Vol] 13.9 g/dL 12.0 - 16.0 g/dL [facility] Immature granulocytes (Bld) [#/Vol] 0 10*3/uL [facility] Immature granulocytes/100 WBC (Bld) 0 % 0 - 5 % [facility] Interpretation and review of laboratory results Abnormal [facility] Lymphocytes/100 WBC (Bld) 30 % 15 - 40 % [facility] Lymphocytes/100 WBC (Bld) 1.94 % [facility] MCH (RBC) [Entitic mass] 31.3 pg 26.0 - 34.0 pg [facility] MCHC (RBC) [Mass/Vol] 34.2 g/dL 31.0 - 37.0 g/dL [facility] MCV (RBC) [Entitic vol] 91.4 fL 80.0 - 100.0 fL [facility] Monocytes/100 WBC (Bld) 9 % High 4 - 8 % B on [facility] Monocytes/100 WBC (Bld) 0.59 % B on [facility] Neutrophils/100 WBC (Bld) 59 % 47 - 75 % [facility] Platelet mean volume (Bld) [Entitic vol] 9.8 fL 6.0 - 12.0 fL [facility] Platelets (Bld) [#/Vol] 202 10*3/uL [facility] RBC (Bld) [#/Vol] 4.44 10*6/uL 4.00 - 5.20 m/uL [facility] Segmented neutrophils/100 WBC (Bld) 3.92 % [facility] WBC other (Bld) [#/Vol] 6.5 B on [facility] CBC with Diffon 01-11-2025 Abs. Basophil 0.03 k/uL Normal 0.00-0.20 [facility] Comment on above: Performed By: #### C DP, HCG, CP #### [facility] [address] [place] [address] Candlemaker: Caden Brown MD Abs.Imm.Granulocyte 0.00 k/uL Normal 0.00-0.30 [facility] Comment on above: Performed By: #### C DP, HCG, CP #### [facility] [address] [place] [address] Candlemaker: Caden Brown MD Abs.Neutrophil (Seg) 3.92 k/uL Normal 2.5-7.0 [facility] Comment on above: Performed By: #### C DP, HCG, CP #### [facility] [address] [place] [phone] Candlemaker: Caden Brown MD Basophils/100 WBC (Bld) 1 % Normal 0-2 M [facility] Comment on above: Performed By: #### C DP, HCG, CP #### [facility] [address] [place] [address] Candlemaker: Caden Brown MD Eosinophils (Bld) [#/Vol] 0.03 10*3/uL Normal 0.00-0.40 [facility] Comment on above: Performed By: #### C DP, HCG, CP #### [facility] [address] [place] [phone] Candlemaker: Caden Brown MD Eosinophils/100 WBC (Bld) 1 % Normal 0-5 [facility] Comment on above: Performed By: #### C DP, HCG, CP #### [facility] [address] [place] [address] Candlemaker: Caden Brown MD Erythrocyte distribution width (RBC) [Ratio] 12.1 % Normal 12.1-15.2 [facility] Comment on above: Performed By: #### C DP, HCG, CP #### [facility] [address] [place] [address] Candlemaker: Caden Brown MD Hematocrit (Bld) [Volume fraction] 40.6 % Normal 36.0-46.0 [facility] Comment on above: Performed By: #### C DP, HCG, CP #### [facility] [address] [place] [address] Candlemaker: Caden Brown MD Hemoglobin (Bld) [Mass/Vol] 13.9 g/dL Normal 12.0-16.0 [facility] Comment on above: Performed By: #### C DP, HCG, CP #### [facility] [address] [place] [phone] Candlemaker: Caden Brown MD Immature granulocytes/100 WBC (Bld) 0 % Normal 0-5 [facility] Comment on above: Performed By: #### C DP, HCG, CP #### [facility] [address] [place] [address] Candlemaker: Caden Brown MD Lymphocytes (Bld) [#/Vol] 1.94 10*3/uL Normal 1.00-4.80 [facility] Comment on above: Performed By: #### C DP, HCG, CP #### [facility] [address] [place] [address] Candlemaker: Caden Brown MD Lymphocytes/100 WBC (Bld) 30 % Normal 15-40 [facility] Comment on above: Performed By: #### C DP, HCG, CP #### [facility] [address] [place] [address] Candlemaker: Caden Brown MD MCH (RBC) [Entitic mass] 31.3 pg Normal 26.0-34.0 [facility] Comment on above: Performed By: #### C DP, HCG, CP #### [facility] [address] [place] [address] Candlemaker: Caden Brown MD MCHC (RBC) [Mass/Vol] 34.2 g/dL Normal 31.0-37.0 [facility] Comment on above: Performed By: #### C DP, HCG, CP #### [facility] [address] [place] [address] Candlemaker: Caden Brown MD MCV (RBC) [Entitic vol] 91.4 fL Normal 80.0-100.0 M [facility] Comment on above: Performed By: #### C DP, HCG, CP #### [facility] [address] [place] [address] Candlemaker: Caden Brown MD Monocytes (Bld) [#/Vol] 0.59 10*3/uL Normal 0.00-1.00 [facility] Comment on above: Performed By: #### C DP, HCG, CP #### [facility] [address] [place] [address] Candlemaker: Caden Brown MD Monocytes/100 WBC (Bld) 9 % High 4-8 M [facility] Comment on above: Performed By: #### C DP, HCG, CP #### [facility] [address] [place] [address] Candlemaker: Caden Brown MD Neutrophil (Seg) 59 % Normal 47-75 [facility] Comment on above: Performed By: #### C DP, HCG, CP #### [facility] [address] [place] [address] [phone] Candlemaker: Caden Brown MD Platelet mean volume (Bld) [Entitic vol] 9.8 fL Normal 6.0-12.0 [facility] Comment on above: Performed By: #### C DP, HCG, CP #### [facility] [address] [place] [address] Candlemaker: Caden Brown MD Platelets (Bld) [#/Vol] 202 10*3/uL Normal 140-450 [facility] Comment on above: Performed By: #### C DP, HCG, CP #### [facility] [address] [place] [phone] Candlemaker: Caden Brown MD RBC (Bld) [#/Vol] 4.44 10*6/uL Normal 4.00-5.20 [facility] Comment on above: Performed By: #### C DP, HCG, CP #### [facility] [address] [place] [address] [phone] Candlemaker: Caden Brown MD WBC (Bld) [#/Vol] 6.5 10*3/uL Normal 3.5-11.0 [facility] Comment on above: Performed By: #### C DP, HCG, CP #### [facility] [address] [place] [address] Candlemaker: Caden Brown MD [facility] 01-11-2025 Albumin [Mass/Vol] 4.5 g/dL 3.5 - 5.2 g/dL [facility] Albumin/Globulin [Mass ratio] 1.9 {ratio} 1.0 - 2.5 [facility] ALP [Catalytic activity/Vol] 78 U/L 35 - 104 U/L [facility] ALT [Catalytic activity/Vol] 22 U/L 5 - 33 U/L [facility] Anion gap [Moles/Vol] 10 mmol/L 9 - 17 mmol/L [facility] AST [Catalytic activity/Vol] 26 U/L NINF - 32 U/L [facility] Bilirubin [Mass/Vol] 1 mg/dL 0.3 - 1 .2 mg/dL [facility] Calcium [Mass/Vol] 9.2 mg/dL 8.6 - 10. 4 mg/dL [facility] Chloride [Moles/Vol] 102 mmol/L 98 - 10 7 mmol/L [facility] CO2 [Moles/Vol] 26 mmol/L 20 - 31 mmol/L [facility] Creatinine [Mass/Vol] 0.8 mg/dL 0.5 - 0.9 mg/dL [facility] Est, Glom Filt Rate - PINF [facility] Comment on above: These results are [...] [Mass/Vol] 90 mg/dL 70 - 99 mg/dL [facility] Interpretation and review of laboratory results Abnormal [facility] Potassium [Moles/Vol] 3.5 mmol/L Low 3.7 - 5.3 mmol/L [facility] Protein [Mass/Vol] 6.9 g/dL 6.4 - 8.3 g/dL [facility] Sodium [Moles/Vol] 138 mmol/L 135 - 144 mmol/L [facility] Urea nitrogen [Mass/Vol] 9 mg/dL 6 - 20 mg/dL [facility] Comp Metabolic Profon 2024 Albumin [Mass/Vol] 4.5 g/dL Normal 3.5-5.2 [facility] Comment on above: Performed By: #### C DP, HCG, CP #### [facility] [address] [place] [address] Candlemaker: Caden Brown MD Albumin/Glob Ratio 1.9 Normal 1.0-2.5 [facility] Comment on above: Performed By: #### C DP, HCG, CP #### [facility] [address] [place] [address] Candlemaker: Caden Brown MD Alkaline Phos 78 U/L Normal 35-104 [facility] Comment on above: Performed By: #### C DP, HCG, CP #### [facility] [address] [place] [phone] Candlemaker: Caden Brown MD ALT [Catalytic activity/Vol] 22 U/L Normal 5-33 [facility] Comment on above: Performed By: #### C DP, HCG, CP #### [facility] [address] [place] [phone] Candlemaker: Caden Brown MD Anion gap [Moles/Vol] 10 mmol/L Normal 9-17 [facility] Comment on above: Performed By: #### C DP, HCG, CP #### [facility] [address] [place] [phone] Candlemaker: Caden Brown MD AST [Catalytic activity/Vol] 26 U/L Normal <32 [facility] Comment on above: Performed By: #### C DP, HCG, CP #### [facility] [address] [place], [place] [phone] Candlemaker: Caden Brown MD Bilirubin [Mass/Vol] 1.0 mg/dL Normal 0.3-1.2 [facility] Comment on above: Performed By: #### C DP, HCG, CP #### [facility] [address] [place] [phone] Candlemaker: Caden Brown MD Calcium [Mass/Vol] 9.2 mg/dL Normal 8.6-10.4 [facility] Comment on above: Performed By: #### C DP, HCG, CP #### [facility] [address] [place] [address] Candlemaker: Caden Brown MD Chloride [Moles/Vol] 102 mmol/L Normal 98-107 [facility] Comment on above: Performed By: #### C DP, HCG, CP #### [facility] [address] [place] [address] Candlemaker: Caden Brown MD CO2 [Moles/Vol] 26 mmol/L Normal 20-31 [facility] Comment on above: Performed By: #### C DP, HCG, CP #### [facility] [address] [place] [address] Candlemaker: Caden Brown MD Creatinine [Mass/Vol] 0.8 mg/dL Normal 0.5-0.9 [facility] Comment on above: Performed By: #### C DP, HCG, CP #### [facility] [address] [place] [address] Candlemaker: Caden Brown MD GFR/1.73 sq M.predicted among non-blacks MDRD (S/P/Bld) [Vol rate/Area] mL/min/{1.73_m2} Normal >60 [facility] Comment on above: Result Comment: These results [...] By: #### C DP, HCG, CP #### [facility] [address] [place] [address] Candlemaker: Caden Brown MD Glucose [Mass/Vol] 90 mg/dL Normal 70-99 [facility] Comment on above: Performed By: #### C DP, HCG, CP #### [facility] [address] [place] [address] Candlemaker: Caden Brown MD Potassium [Moles/Vol] 3.5 mmol/L Low 3.7-5.3 [facility] Comment on above: Performed By: #### C DP, HCG, CP #### [facility] [address] [place] [address] Candlemaker: Caden Brown MD Protein [Mass/Vol] 6.9 g/dL Normal 6.4-8.3 [facility] Comment on above: Performed By: #### C DP, HCG, CP #### [facility] [address] [place] [address] Candlemaker: Caden Brown MD Sodium [Moles/Vol] 138 mmol/L Normal 135-144 [facility] Comment on above: Performed By: #### C DP, HCG, CP #### [facility] [address] [place] [address] Candlemaker: Caden Brown MD Urea nitrogen [Mass/Vol] 9 mg/dL Normal 6-20 [facility] Comment on above: Performed By: #### C DP, HCG, CP #### [facility] [address] [place] [address] Candlemaker: Caden Brown MD Glucose, Whole Bloodon 01-11 Glucose [Mass/Vol] 108 mg/dL High 65 - 99 mg/dL [facility] Interpretation and review of laboratory results Abnormal [facility] Glucose,Whole Bloodon 2024 Glucose [Mass/Vol] 108 mg/dL High 65-99 [facility] [facility] HCG Qualitative, Serumon HCG ( test) Ql Negative NEGATIVE B on [facility] Comment on above: Specimens with hCG l evels near the threshold of the test (25 mIU/mL) may give a negative or indeterminate result. In such cases, another test should be performed with a new specimen in 48-72 hours. If early is suspected clinically in this setting, correlation with quantitative serum b-hCG level is suggested. [facility] has confirmed the use of plasma for this test. This has not been cleared or approved by the U.S. Food and Drug Administration. The FDA has determined that such clearance is not necessary. [facility] HCG Screen, Bloodon 01-12-20 25 HCG Screen, Blood Negative Normal NEG [facility] Comment on above: Result Comment: Spec imens with hCG levels near the threshold of the test (25 mIU/mL) may give a negative or indeterminate result. In such cases, another test should be performed with a new specimen in 48-72 hours. If early is suspected clinically in this setting, correlation with quantitative serum b-hCG level is suggested. [facility] has confirmed the use of plasma for this test. This has not been cleared or approved by the U.S. Food and Drug Administration. The FDA has determined that such clearance is not necessary. Performed By: #### C DP, HCG, CP #### [facility] [address] [place], [place] [id number] Candlemaker: Caden Brown MD HCG.beta subunit IA 3rd IS Q non 12-13-2024 HCG.beta subunit Qn 384 m[IU]/mL [facility] Comment on above: Result Comment: NEW REFERENCE [...] neoplasms. Performed By: #### 2 0415-6 #### [facility] ([id number]) [address] [place] [address] URINALYSISon 12-13-2024 Bilirubin Ql (U) Negative Normal NEG [facility] Comment on above: Performed By: #### U A #### [facility] ([id number]) [address] [place] [address] BLOOD/HGB Large Abnormal NEG [facility] Comment on above: Performed By: #### U A #### [facility] ([id number]) [address] [place] [address] 88789 Color (U) YELLOW Normal YELLOW [facility] Comment on above: Performed By: #### U A #### [facility] ([id number]) [address] [place] [address] [place] [address] Glucose Ql (U) Negative Normal NEG [facility] Comment on above: Performed By: #### U A #### [facility] ([id number]) [address] [place] [address] 19582 Ketones Ql (U) Negative Normal NEG [facility] Comment on above: Performed By: #### U A #### [facility] ([id number]) [address] [place] [address] [place] [address] Leukocyte esterase Test strip Ql (U) Negative Normal NEG [facility] Comment on above: Performed By: #### U A #### [facility] ([id number]) [address] [place] [address] [place] [address] Nitrite Ql (U) Negative Normal NEG [facility] Comment on above: Performed By: #### U A #### [facility] ([id number]) [address] [place] [address]17 pH (U) 7.0 [pH] Normal 5.0-8.5 [facility] Comment on above: Performed By: #### U A #### [facility] ([id number]) [address] [place] [address]62 Protein Ql (U) Negative Normal NEG [facility] Comment on above: Performed By: #### U A #### [facility] ([id number]) [address] [place] [address] 14491 R.B.CELLS 5 /hpf Normal 0-5 [facility] Comment on above: Performed By: #### U A #### [facility] ([id number]) [address] [place] [address] [place] [address] Specific gravity (U) [Rel density] 1.020 Normal 1.003-1.03 5 [facility] Comment on above: Performed By: #### U A #### [facility] ([id number]) [address] [place] [address] 77385 SQUAMOUS EPITHELIUM 8 /hpf High 0-5 [facility] Comment on above: Performed By: #### U A #### [facility] ([id number]) [address] [place] [address] [place] [address] TRANSITIONAL EPITH 1 /hpf High 0 [facility] Comment on above: Performed By: #### U A #### [facility] ([id number]) [address] [place] [address] 63287 TURBIDITY CLEAR Normal CLEAR [facility] Comment on above: Performed By: #### U A #### [facility] ([id number]) [address] [place] [address] 22036 Urobilinogen Qn (U) 0.2 {Ludwig'U}/dL Normal <1.1 [facility] Comment on above: Performed By: #### U A #### [facility] ([id number]) [address] [place] [address] 86548 W.B.CELLS 0 /hpf Normal 0-5 [facility] Comment on above: Performed By: #### U A #### [facility] ([id number]) [address] [place] [address]45 CBC with Auto Differentialon 12-01-2024 Basophils (Bld) [#/Vol] 0.03 10*3/uL [facility] Basophils/100 WBC (Bld) 0 % 0 - 2 % B [facility] Eosinophils (Bld) [#/Vol] 0.04 10*3/uL [facility] Eosinophils/100 WBC (Bld) 1 % 0 - 5 % [facility] Erythrocyte distribution width (RBC) [Ratio] 11.8 % Low 12.1 - 15.2 % [facility] Hematocrit (Bld) [Volume fraction] 38.2 % 36.0 - 46.0 % [facility] Hemoglobin (Bld) [Mass/Vol] 13.0 g/dL 12.0 - 16.0 g/dL [facility] Immature granulocytes (Bld) [#/Vol] 0.01 10*3/uL [facility] Immature granulocytes/100 WBC (Bld) 0 % 0 - 5 % [facility] Interpretation and review of laboratory results Abnormal [facility] Lymphocytes/100 WBC (Bld) 24 % 15 - 40 % [facility] Lymphocytes/100 WBC (Bld) 1.98 % [facility] MCH (RBC) [Entitic mass] 30.9 pg 26.0 - 34.0 pg [facility] MCHC (RBC) [Mass/Vol] 34.0 g/dL 31.0 - 37.0 g/dL [facility] MCV (RBC) [Entitic vol] 90.7 fL 80.0 - 100.0 fL [facility] Monocytes/100 WBC (Bld) 10 % High 4 - 8 % B on [facility] Monocytes/100 WBC (Bld) 0.80 % B on [facility] Neutrophils/100 WBC (Bld) 65 % 47 - 75 % [facility] Platelet mean volume (Bld) [Entitic vol] 9.3 fL 6.0 - 12.0 fL [facility] Platelets (Bld) [#/Vol] 238 10*3/uL [facility] RBC (Bld) [#/Vol] 4.21 10*6/uL 4.00 - 5.20 m/uL [facility] Segmented neutrophils/100 WBC (Bld) 5.44 % [facility] WBC other (Bld) [#/Vol] 8.3 B on [facility] CBC with Diffon 12-01-2024 Abs. Basophil 0.03 k/uL Normal 0.00-0.20 [facility] Comment on above: Performed By: #### C DP, CP #### [facility] [address] [id number] Candlemaker: Caden Brown MD Abs.Imm.Granulocyte 0.01 k/uL Normal 0.00-0.30 [facility] Comment on above: Performed By: #### C DP, CP #### [facility] [address] [place] [phone] Candlemaker: Caden Brown MD Abs.Neutrophil (Seg) 5.44 k/uL Normal 2.5-7.0 [facility] Comment on above: Performed By: #### C DP, CP #### [facility] [address] [place] [address] Candlemaker: Caden Brown MD Basophils/100 WBC (Bld) 0 % Normal 0-2 M [facility] Comment on above: Performed By: #### C DP, CP #### [facility] [address] [place] [phone] Candlemaker: Caden Brown MD Eosinophils (Bld) [#/Vol] 0.04 10*3/uL Normal 0.00-0.40 [facility] Comment on above: Performed By: #### C DP, CP #### [facility] [address] [place] [address] Candlemaker: Caden Brown MD Eosinophils/100 WBC (Bld) 1 % Normal 0-5 [facility] Comment on above: Performed By: #### C DP, CP #### [facility] [address] [place] [phone] Candlemaker: Caden Brown MD Erythrocyte distribution width (RBC) [Ratio] 11.8 % Low 12.1-15.2 [facility] Comment on above: Performed By: #### C DP, CP #### [facility] [address] [place] [phone] Candlemaker: Caden Brown MD Hematocrit (Bld) [Volume fraction] 38.2 % Normal 36.0-46.0 [facility] Comment on above: Performed By: #### C DP, CP #### [facility] [address] [phone] Candlemaker: Caden Brown MD Hemoglobin (Bld) [Mass/Vol] 13.0 g/dL Normal 12.0-16.0 [facility] Comment on above: Performed By: #### C DP, CP #### [facility] [address] [place] [address] Candlemaker: Caden Brown MD Immature granulocytes/100 WBC (Bld) 0 % Normal 0-5 [facility] Comment on above: Performed By: #### C DP, CP #### [facility] [address] [place] [phone] Candlemaker: Caden Brown MD Lymphocytes (Bld) [#/Vol] 1.98 10*3/uL Normal 1.00-4.80 [facility] Comment on above: Performed By: #### C DP, CP #### [facility] [address] [place] [address] Candlemaker: Caden Brown MD Lymphocytes/100 WBC (Bld) 24 % Normal 15-40 [facility] Comment on above: Performed By: #### C DP, CP #### [facility] [address] [place] [phone] Candlemaker: Caden Brown MD MCH (RBC) [Entitic mass] 30.9 pg Normal 26.0-34.0 [facility] Comment on above: Performed By: #### C DP, CP #### [facility] [address] [phone] Candlemaker: Caden Brown MD MCHC (RBC) [Mass/Vol] 34.0 g/dL Normal 31.0-37.0 [facility] Comment on above: Performed By: #### C DP, CP #### [facility] [address] [place] [address] Candlemaker: Caden Brown MD MCV (RBC) [Entitic vol] 90.7 fL Normal 80.0-100.0 [facility] Comment on above: Performed By: #### C DP, CP #### [facility] [address] [place] [phone] Candlemaker: Caden Brown MD Monocytes (Bld) [#/Vol] 0.80 10*3/uL Normal 0.00-1.00 [facility] Comment on above: Performed By: #### C DP, CP #### [facility] [address] [place], [place] [phone] (645) Candlemaker: Caden Brown MD Monocytes/100 WBC (Bld) 10 % High 4-8 M [facility] Comment on above: Performed By: #### C DP, CP #### [facility] [address] [place], [place] [id number] (103) Candlemaker: Caden Brown MD Neutrophil (Seg) 65 % Normal 47-75 [facility] Comment on above: Performed By: #### C DP, CP #### [facility] [address] [place] [address] (629) Candlemaker: Caden Brown MD Platelet mean volume (Bld) [Entitic vol] 9.3 fL Normal 6.0-12.0 [facility] Comment on above: Performed By: #### C DP, CP #### [facility] [address] [place], [place] [phone] (945) Candlemaker: Caden Brown MD Platelets (Bld) [#/Vol] 238 10*3/uL Normal 140-450 [facility] Comment on above: Performed By: #### C DP, CP #### [facility] [address] [place] [address] Candlemaker: Caden Brown MD RBC (Bld) [#/Vol] 4.21 10*6/uL Normal 4.00-5.20 [facility] Comment on above: Performed By: #### C DP, CP #### [facility] [address] [place], [place] [phone] (296) Candlemaker: Caden Brown MD WBC (Bld) [#/Vol] 8.3 10*3/uL Normal 3.5-11.0 [facility] Comment on above: Performed By: #### C DP, CP #### [facility] [address] [place], [place] [phone] Candlemaker: Caden Brown MD Comp Metabolic Profon 2024 Albumin [Mass/Vol] 4.2 g/dL Normal 3.5-5.2 [facility] Comment on above: Performed By: #### C DP, CP #### [facility] [address] [place], [place] [phone] Candlemaker: Caden Brown MD Albumin/Glob Ratio 1.8 Normal 1.0-2.5 [facility] Comment on above: Performed By: #### C DP, CP #### [facility] [address] [place], [place] [phone] Candlemaker: Caden Brown MD Alkaline Phos 61 U/L Normal 35-104 [facility] Comment on above: Performed By: #### C DP, CP #### [facility] [address] [place], [place] [phone] Candlemaker: Caden Brown MD ALT [Catalytic activity/Vol] 27 U/L Normal 5-33 [facility] Comment on above: Performed By: #### C DP, CP #### [facility] [address] [place] [address] Candlemaker: Caden Brown MD Anion gap [Moles/Vol] 10 mmol/L Normal 9-17 [facility] Comment on above: Performed By: #### C DP, CP #### [facility] [address] [place] [address] Candlemaker: Caden Brown MD AST [Catalytic activity/Vol] 24 U/L Normal <32 [facility] Comment on above: Performed By: #### C DP, CP #### [facility] [address] [place] [address] Candlemaker: Caden Brown MD Bilirubin [Mass/Vol] 1.2 mg/dL Normal 0.3-1.2 [facility] Comment on above: Performed By: #### C DP, CP #### [facility] [address] [place] [address] Candlemaker: Caden Brown MD Calcium [Mass/Vol] 9.1 mg/dL Normal 8.6-10.4 [facility] Comment on above: Performed By: #### C DP, CP #### [facility] [address] [place] [address] Candlemaker: Caden Brown MD Chloride [Moles/Vol] 105 mmol/L Normal 98-107 [facility] Comment on above: Performed By: #### C DP, CP #### [facility] [address] [place] [address] Candlemaker: Caden Brown MD CO2 [Moles/Vol] 24 mmol/L Normal 20-31 [facility] Comment on above: Performed By: #### C DP, CP #### [facility] [address] [place] [address] Candlemaker: Caden Brown MD Creatinine [Mass/Vol] 0.7 mg/dL Normal 0.5-0.9 [facility] Comment on above: Performed By: #### C DP, CP #### [facility] [address] [place] [address] Candlemaker: Cdaen Brown MD GFR/1.73 sq M.predicted among non-blacks MDRD (S/P/Bld) [Vol rate/Area] mL/min/{1.73_m2} Normal >60 [facility] Comment on above: Result Comment: These results [...] Performed By: #### C DP, CP #### [facility] [address] [place] [address] Candlemaker: Caden Brown MD Glucose [Mass/Vol] 64 mg/dL Low 70-99 [facility] Comment on above: Performed By: #### C DP, CP #### [facility] [address] [place] [address] Candlemaker: Caden Brown MD Potassium [Moles/Vol] 3.6 mmol/L Low 3.7-5.3 [facility] Comment on above: Performed By: #### C DP, CP #### [facility] [address] [place] [address] Candlemaker: Caden Brown MD Protein [Mass/Vol] 6.5 g/dL Normal 6.4-8.3 [facility] Comment on above: Performed By: #### C DP, CP #### [facility] [address] [place] [address] Candlemaker: Caden Brown MD Sodium [Moles/Vol] 139 mmol/L Normal 135-144 [facility] Comment on above: Performed By: #### C DP, CP #### [facility] [address] [place] [address] Candlemaker: Caden Brown MD Urea nitrogen [Mass/Vol] 15 mg/dL Normal 6-20 [facility] Comment on above: Performed By: #### C DP, CP #### [facility] [address] [place] [address] Candlemaker: Caden Brown MD [facility] Metabolic Pane [facility] 12-01-2024 Albumin [Mass/Vol] 4.2 g/dL 3.5 - 5.2 g/dL [facility] Albumin/Globulin [Mass ratio] 1.8 {ratio} 1.0 - 2.5 [facility] ALP [Catalytic activity/Vol] 61 U/L 35 - 104 U/L [facility] ALT [Catalytic activity/Vol] 27 U/L 5 - 33 U/L [facility] Anion gap [Moles/Vol] 10 mmol/L 9 - 17 mmol/L [facility] AST [Catalytic activity/Vol] 24 U/L NINF - 32 U/L [facility] Bilirubin [Mass/Vol] 1.2 mg/dL 0.3 - 1 .2 mg/dL [facility] Calcium [Mass/Vol] 9.1 mg/dL 8.6 - 10. 4 mg/dL [facility] Chloride [Moles/Vol] 105 mmol/L 98 - 10 7 mmol/L [facility] CO2 [Moles/Vol] 24 mmol/L 20 - 31 mmol/L [facility] Creatinine [Mass/Vol] 0.7 mg/dL 0.5 - 0.9 mg/dL [facility] Est, Glom Filt Rate - PINF [facility] Comment on above: These results are [...] 64 mg/dL Low 70 - 99 mg/dL [facility] Interpretation and review of laboratory results Abnormal [facility] Potassium [Moles/Vol] 3.6 mmol/L Low 3.7 - 5.3 mmol/L [facility] Protein [Mass/Vol] 6.5 g/dL 6.4 - 8.3 g/dL [facility] Sodium [Moles/Vol] 139 mmol/L 135 - 144 mmol/L [facility] Urea nitrogen [Mass/Vol] 15 mg/dL 6 - 20 mg/dL [facility] HCG, Quanton 12-01-2024 HCG, Quant 1440.0 mIU/mL High <5 [facility] Comment on above: Result Comment: Non-preg premeno <=5 Postmeno <=8 Male <=3 If HCG results do not concur with clinical observations, additional testing to confirm results is recommended. Performed By: #### B HCG ####[facility] [id number] [place] [address] Lab Director: Caden Brown MD HCG, Quantitative, on 12-01-2024 HCG.beta subunit Qn 1440.0 m[IU]/mL High NINF [facility] Comment on above: Non-preg premeno <=5 Postmeno <=8 Male <=3 If HCG results do not concur with clinical observations, additional testing to confirm results is recommended. Interpretation and review of laboratory results Abnormal [facility] Urinalysison 12-01-2024 Bilirubin Ql (U) Negative NEGATIVE [facility] Clarity (U) Clear Clear [facility] Color (U) Yellow Yellow [facility] Comment [facility] Glucose Test strip (U) [Mass/Vol] Negative NEGATIVE mg/dL [facility] Hemoglobin Auto test strip Ql (U) Negative NEGATIVE [facility] Ketones (U) [Mass/Vol] Negative NEGAT WOODY mg/dL [facility] Leukocyte esterase Test strip Ql (U) Negative NEGATIVE [facility] Nitrite Ql (U) Negative NEGATIVE [facility] pH (U) 8.0 [pH] 5.0 - 8.0 [facility] Protein (U) [Mass/Vol] Negative NEGAT WOODY mg/dL [facility] Specific gravity (U) [Rel density] 1.015 1.005 - 1.030 [facility] Urobilinogen Qn (U) Normal 0.0 - 1. 0 EU/dL [facility] Urinalysis, Routineon 2024 Bilirubin, SemiQt,Ur Negative Normal NEG [facility] Comment on above: Performed By: #### U A ####[facility] [id number] [place] [address] lab Director: Caden Brown MD Blood, Urine Negative Normal NEG [facility] Comment on above: Performed By: #### U A ####[facility] [id number] [place] [address] lab Director: Caden Brown MD Clarity (U) Clear Normal CLEAR [facility] Comment on above: Performed By: #### U A ####[facility] [id number] [place] [address] lab Director: Caden Brown MD Color (U) Yellow Normal YEL [facility] Comment on above: Performed By: #### U A ####[facility] [id number] [place] [address] lab Director: Caden Brown MD Comment Normal [facility] Comment on above: Performed By: #### U A ####[facility] [address] [place] [address] lab Director: Caden Brown MD Glucose Ql (U) Negative Normal NEG [facility] Comment on above: Performed By: #### U A ####[facility] [id number] [place] [address] lab Director: Caden Brown MD Ketones Ql (U) Negative Normal NEG [facility] Comment on above: Performed By: #### U A ####[facility] [id number] [place] [address] lab Director: Caden Brown MD Leukocyte esterase Test strip Ql (U) Negative Normal NEG [facility] Comment on above: Performed By: #### U A ####[facility] [id number] [place] [address] lab Director: Caden Brown MD Nitrite,Ur Negative Normal NEG [facility] Comment on above: Performed By: #### U A ####[facility] [id number] [place] [address] lab Director: Caden Brown MD PH,Ur 8.0 Normal 5.0-8.0 [facility] Comment on above: Performed By: #### U A ####[facility] [id number] [place] [address] lab Director: Caden Brown MD Protein Ql (U) Negative Normal NEG [facility] Comment on above: Performed By: #### U A ####[facility] [id number] [place] [address] lab Director: Caden Brown MD Spec. Addison,Ur 1.015 Normal 1.005-1.03 0 [facility] Comment on above: Performed By: #### U A ####[facility] [id number] [place] [address] lab Director: Caden Brown MD Urobilinogen,Ur Normal Normal 0.0-1.0 [facility] Comment on above: Performed By: #### U A ####[facility] [id number] [id number] lab Director: Caden Brown MD [facility] PREG QUANT HCGon 11-29- 025 HCG QUANTITATIVE 759 mIU/mL [facility] Comment on above: 5-50 0.2-1 WEEK 50-500 1-2 WEEKS 100-5,000 2-3 WEEKS 500-10,000 3-4 WEEKS 1,000-50,000 4-5 WEEKS 10,000-100,000 5-6 WEEKS 15,000-200,000 6-8 WEEKS 10,000-100,000 2-3 [facility] CBC with Auto Differentialon 11-16-2024 Basophils (Bld) [#/Vol] 0.01 10*3/uL [facility] Basophils/100 WBC (Bld) 0 % 0 - 2 % B on [facility] Eosinophils (Bld) [#/Vol] 0.01 10*3/uL [facility] Eosinophils/100 WBC (Bld) 0 % 0 - 5 % [facility] Erythrocyte distribution width (RBC) [Ratio] 12.2 % 12.1 - 15.2 % [facility] Hematocrit (Bld) [Volume fraction] 43.3 % 36.0 - 46.0 % [facility] Hemoglobin (Bld) [Mass/Vol] 14.9 g/dL 12.0 - 16.0 g/dL [facility] Immature granulocytes (Bld) [#/Vol] 0.01 10*3/uL [facility] Immature granulocytes/100 WBC (Bld) 0 % 0 - 5 % [facility] Interpretation and review of laboratory results Abnormal [facility] Lymphocytes/100 WBC (Bld) 15 % 15 - 40 % [facility] Lymphocytes/100 WBC (Bld) 1.82 % [facility] MCH (RBC) [Entitic mass] 31.1 pg 26.0 - 34.0 pg [facility] MCHC (RBC) [Mass/Vol] 34.4 g/dL 31.0 - 37.0 g/dL [facility] MCV (RBC) [Entitic vol] 90.4 fL 80.0 - 100.0 fL [facility] Monocytes/100 WBC (Bld) 4 % 4 - 8 % B on [facility] Monocytes/100 WBC (Bld) 0.43 % [facility] Neutrophils/100 WBC (Bld) 81 % High 47 - 75 % [facility] Platelet mean volume (Bld) [Entitic vol] 9.6 fL 6.0 - 12.0 fL [facility] Platelets (Bld) [#/Vol] 243 10*3/uL [facility] RBC (Bld) [#/Vol] 4.79 10*6/uL 4.00 - 5.20 m/uL [facility] Segmented neutrophils/100 WBC (Bld) 9.54 % High [facility] WBC other (Bld) [#/Vol] 11.8 High B on [facility] CBC with Diffon 11-16-2024 Abs. Basophil 0.01 k/uL Normal 0.00-0.20 [facility] Comment on above: Performed By: #### L IP, CP, HCG, CDP, TROPI #### [facility] [address] [place] [address] Candlemaker: Caden Brown MD Abs.Imm.Granulocyte 0.01 k/uL Normal 0.00-0.30 [facility] Comment on above: Performed By: #### L IP, CP, HCG, CDP, TROPI #### [facility] [address] [place] [address] Candlemaker: Caden Brown MD Abs.Neutrophil (Seg) 9.54 k/uL High 2.5-7.0 [facility] Comment on above: Performed By: #### L IP, CP, HCG, CDP, TROPI #### [facility] [address] [place] [address] Candlemaker: Caden Brown MD Basophils/100 WBC (Bld) 0 % Normal 0-2 M [facility] Comment on above: Performed By: #### L IP, CP, HCG, CDP, TROPI #### [facility] [address] [place] [address] Candlemaker: Caden Brown MD Eosinophils (Bld) [#/Vol] 0.01 10*3/uL Normal 0.00-0.40 [facility] Comment on above: Performed By: #### L IP, CP, HCG, CDP, TROPI #### [facility] [address] [place] [phone] Candlemaker: Caden Bronw MD Eosinophils/100 WBC (Bld) 0 % Normal 0-5 [facility] Comment on above: Performed By: #### L IP, CP, HCG, CDP, TROPI #### [facility] [address] [place] [phone] Candlemaker: Caden Brown MD Erythrocyte distribution width (RBC) [Ratio] 12.2 % Normal 12.1-15.2 [facility] Comment on above: Performed By: #### L IP, CP, HCG, CDP, TROPI #### [facility] [address] [place] [phone] Candlemaker: Caden Brown MD Hematocrit (Bld) [Volume fraction] 43.3 % Normal 36.0-46.0 [facility] Comment on above: Performed By: #### L IP, CP, HCG, CDP, TROPI #### [facility] [address] [place] [address] Candlemaker: Caden Brown MD Hemoglobin (Bld) [Mass/Vol] 14.9 g/dL Normal 12.0-16.0 [facility] Comment on above: Performed By: #### L IP, CP, HCG, CDP, TROPI #### [facility] [address] [place] [address] Candlemaker: Caden Brown MD Immature granulocytes/100 WBC (Bld) 0 % Normal 0-5 [facility] Comment on above: Performed By: #### L IP, CP, HCG, CDP, TROPI #### [facility] [address] [place] [phone] Candlemaker: Caden Brown MD Lymphocytes (Bld) [#/Vol] 1.82 10*3/uL Normal 1.00-4.80 [facility] Comment on above: Performed By: #### L IP, CP, HCG, CDP, TROPI #### [facility] [address] [place] [address] Candlemaker: Caden Brown MD Lymphocytes/100 WBC (Bld) 15 % Normal 15-40 [facility] Comment on above: Performed By: #### L IP, CP, HCG, CDP, TROPI #### [facility] [address] [place] [phone] Candlemaker: Caden Brown MD MCH (RBC) [Entitic mass] 31.1 pg Normal 26.0-34.0 [facility] Comment on above: Performed By: #### L IP, CP, HCG, CDP, TROPI #### [facility] [address] [place] [address] Candlemaker: Caden Brown MD MCHC (RBC) [Mass/Vol] 34.4 g/dL Normal 31.0-37.0 [facility] Comment on above: Performed By: #### L IP, CP, HCG, CDP, TROPI #### [facility] [address] [place] [phone] Candlemaker: Caden Brown MD MCV (RBC) [Entitic vol] 90.4 fL Normal 80.0-100.0 [facility] Comment on above: Performed By: #### L IP, CP, HCG, CDP, TROPI #### [facility] [address] [place] [address] Candlemaker: Caden Brown MD Monocytes (Bld) [#/Vol] 0.43 10*3/uL Normal 0.00-1.00 [facility] Comment on above: Performed By: #### L IP, CP, HCG, CDP, TROPI #### [facility] [address] [place] [phone] Candlemaker: Caden Brown MD Monocytes/100 WBC (Bld) 4 % Normal 4-8 M [facility] Comment on above: Performed By: #### L IP, CP, HCG, CDP, TROPI #### [facility] [address] [place], [place] [phone] Candlemaker: Caden rBown MD Neutrophil (Seg) 81 % High 47-75 [facility] Comment on above: Performed By: #### L IP, CP, HCG, CDP, TROPI #### [facility] [address] [place], [place] [phone] ([phone] Candlemaker: Caden Brown MD Platelet mean volume (Bld) [Entitic vol] 9.6 fL Normal 6.0-12.0 [facility] Comment on above: Performed By: #### L IP, CP, HCG, CDP, TROPI #### [facility] [address] [place], [place] [phone] Candlemaker: Caden Brown MD Platelets (Bld) [#/Vol] 243 10*3/uL Normal 140-450 [facility] Comment on above: Performed By: #### L IP, CP, HCG, CDP, TROPI #### [facility] [address] [place], [place] [phone] Candlemaker: Caden Brown MD RBC (Bld) [#/Vol] 4.79 10*6/uL Normal 4.00-5.20 [facility] Comment on above: Performed By: #### L IP, CP, HCG, CDP, TROPI #### [facility] [address] [place], [place] [phone] Candlemaker: Caden Brown MD WBC (Bld) [#/Vol] 11.8 10*3/uL High 3.5-11.0 [facility] Comment on above: Performed By: #### L IP, CP, HCG, CDP, TROPI #### [facility] [address] [place], [place] [phone] Candlemaker: Caden Brown MD CMPon 11-16-2024 Albumin [Mass/Vol] 4.5 g/dL 3.5 - 5.2 g/dL [facility] ALP [Catalytic activity/Vol] 80 U/L 35 - 104 U/L [facility] ALT [Catalytic activity/Vol] 17 U/L 5 - 33 U/L [facility] Anion gap [Moles/Vol] 16 mmol/L 9 - 17 mmol/L [facility] AST [Catalytic activity/Vol] 19 U/L NINF - 32 U/L [facility] Bilirubin [Mass/Vol] 1.3 mg/dL High 0.3 - 1 .2 mg/dL [facility] Calcium [Mass/Vol] 9.7 mg/dL 8.6 - 10. 4 mg/dL [facility] Chloride [Moles/Vol] 101 mmol/L 98 - 10 7 mmol/L [facility] CO2 [Moles/Vol] 21 mmol/L 20 - 31 mmol/L [facility] Creatinine [Mass/Vol] 0.7 mg/dL 0.5 - 0.9 mg/dL [facility] Est, Glom Filt Rate - PINF [facility] Comment on above: These results are [...] [Mass/Vol] 94 mg/dL 70 - 99 mg/dL [facility] Interpretation and review of laboratory results Abnormal [facility] Potassium [Moles/Vol] 3.2 mmol/L Low 3.7 - 5.3 mmol/L [facility] Protein [Mass/Vol] 7.4 g/dL 6.4 - 8.3 g/dL [facility] Sodium [Moles/Vol] 138 mmol/L 135 - 144 mmol/L [facility] Urea nitrogen [Mass/Vol] 15 mg/dL 6 - 20 mg/dL [facility] Urea nitrogen/Creatinine [Mass ratio] 21 mg/mg High 9 - 20 [facility] COVID-19, Rapidon 11-16-2024 SARS-CoV-2 (COVID-19) RdRp gene JANET+probe Ql (Resp) Not detected Not Detected [facility] Comment on above: Rapid NAAT: The [...] Nucleic Acid Amplification Specimen Description .NASOPHARYNGEAL SWAB [facility] CT ABDOMEN PELVIS W IV CONTR Mejia [...] Сергей Cobian MD 11/16/24 Final result Normal [facility] CT Abdomen and Pelvis W cont rast [place] 11-16-2024 1. Fluid throughout the lumen of the colon, including in the distal colon and rectum, which may be seen in patients with diarrhea. No bowel obstruction. 2. Otherwise normal CT, following prior appendectomy. No sign of diverticulitis, appendicitis, or other acute inflammatory process. IMPRESSION: [facility] EXAMINATION: CT ABDO MEN PELVIS W [...] lymph nodes. No aortic aneurysm or dissection. [facility] Сергей Cobian MD - 11/16/2024 EXAMINATION: [...] appendicitis, or other acute inflammatory process. IMPRESSION: [facility] Radiology Study observation (narrative) [facility] Comp Metabolic Profon 2024 Albumin [Mass/Vol] 4.5 g/dL Normal 3.5-5.2 [facility] Comment on above: Performed By: #### L IP, CP, HCG, CDP, TROPI ####[facility] [id number] [place] [address] Lab Director: Caden Brown MD Alkaline Phos 80 U/L Normal 35-104 [facility] Comment on above: Performed By: #### L IP, CP, HCG, CDP, TROPI ####[facility] [address] [place] [address] Lab Director: Caden Brown MD ALT [Catalytic activity/Vol] 17 U/L Normal 5-33 [facility] Comment on above: Performed By: #### L IP, CP, HCG, CDP, TROPI ####[facility] [address] [place], [place] [phone] Director: Caden Brown MD Anion gap [Moles/Vol] 16 mmol/L Normal 9-17 [facility] Comment on above: Performed By: #### L IP, CP, HCG, CDP, TROPI ####[facility] [address] [place] [address] lab Director: Caden Brown MD AST [Catalytic activity/Vol] 19 U/L Normal <32 [facility] Comment on above: Performed By: #### L IP, CP, HCG, CDP, TROPI ####[facility] [address] [place] [address] lab Director: Caden Brown MD Bilirubin [Mass/Vol] 1.3 mg/dL High 0.3-1.2 [facility] Comment on above: Performed By: #### L IP, CP, HCG, CDP, TROPI ####[facility] [address] [place] [address] lab Director: Caden Brown MD BUN/CRE Ratio 21 High 9-20 [facility] Comment on above: Performed By: #### L IP, CP, HCG, CDP, TROPI ####[facility] [address] [place] [address] lab Director: Caden Brown MD Calcium [Mass/Vol] 9.7 mg/dL Normal 8.6-10.4 [facility] Comment on above: Performed By: #### L IP, CP, HCG, CDP, TROPI ####[facility] [address] [place] [address] lab Director: Caden Brown MD Chloride [Moles/Vol] 101 mmol/L Normal 98-107 [facility] Comment on above: Performed By: #### L IP, CP, HCG, CDP, TROPI ####[facility] [address] [place] [address] lab Director: Caden Brown MD CO2 [Moles/Vol] 21 mmol/L Normal 20-31 [facility] Comment on above: Performed By: #### L IP, CP, HCG, CDP, TROPI ####[facility] [address] [place] [address] lab Director: Caden Brown MD Creatinine [Mass/Vol] 0.7 mg/dL Normal 0.5-0.9 [facility] Comment on above: Performed By: #### L IP, CP, HCG, CDP, TROPI ####[facility] [address] [place] [address] lab Director: Caden Brown MD GFR/1.73 sq M.predicted among non-blacks MDRD (S/P/Bld) [Vol rate/Area] mL/min/{1.73_m2} Normal >60 [facility] Comment on above: Result Comment: These results [...] #### L IP, CP, HCG, CDP, TROPI ####[facility] [address] [place] [address] lab Director: Caden Brown MD Glucose [Mass/Vol] 94 mg/dL Normal 70-99 [facility] Comment on above: Performed By: #### L IP, CP, HCG, CDP, TROPI ####[facility] [address] [place] [address] lab Director: Caden Brown MD Potassium [Moles/Vol] 3.2 mmol/L Low 3.7-5.3 [facility] Comment on above: Performed By: #### L IP, CP, HCG, CDP, TROPI ####[facility] [address] [place] [address] lab Director: Caden Brown MD Protein [Mass/Vol] 7.4 g/dL Normal 6.4-8.3 [facility] Comment on above: Performed By: #### L IP, CP, HCG, CDP, TROPI ####[facility] [address] [place] [address] Lab Director: Caden Brown MD Sodium [Moles/Vol] 138 mmol/L Normal 135-144 [facility] Comment on above: Performed By: #### L IP, CP, HCG, CDP, TROPI ####[facility] [address] [facility] [place] [phone] Director: Caden Brown MD Urea nitrogen [Mass/Vol] 15 mg/dL Normal 6-20 [facility] Comment on above: Performed By: #### L IP, CP, HCG, CDP, TROPI ####[facility] [address] [facility], [place] [phone] Director: Caden Brown MD Flu A/B Ag Detectionon 11-16 Flu A Ag Detection Negative Normal NEG [facility] Comment on above: Result Comment: for Influenza A Antigen Performed By: #### F LUABA ####[facility] [address] [place] [address] Lab Director: Caden Brown MD Flu B Ag Detection Negative Normal NEG [facility] Comment on above: Result Comment: for Influenza B Antigen. Performed By: #### F LUABA ####[facility] [address] [place] [address] Lab Director: Caden Brown MD HCG Qualitative, Serumon HCG ( test) Ql Negative NEGATIVE B on [facility] Comment on above: Specimens with hCG l evels near the threshold of the test (25 mIU/mL) may give a negative or indeterminate result. In such cases, another test should be performed with a new specimen in 48-72 hours. If early is suspected clinically in this setting, correlation with quantitative serum b-hCG level is suggested. [facility] has confirmed the use of plasma for this test. This has not been cleared or approved by the U.S. Food and Drug Administration. The FDA has determined that such clearance is not necessary. [facility] HCG Screen, Bloodon 11-16-19 25 HCG Screen, Blood Negative Normal NEG [facility] Comment on above: Result Comment: Spec imens with hCG levels near the threshold of the test (25 mIU/mL) may give a negative or indeterminate result. In such cases, another test should be performed with a new specimen in 48-72 hours. If early is suspected clinically in this setting, correlation with quantitative serum b-hCG level is suggested. [facility] has confirmed the use of plasma for this test. This has not been cleared or approved by the U.S. Food and Drug Administration. The FDA has determined that such clearance is not necessary. Performed By: #### L IP, CP, HCG, CDP, TROPI ####[facility] [address] [place] [address] lab Director: Caden Brown MD Lipaseon 11-16-2024 Lipase [Catalytic activity/Vol] 47 U/L 13 - 60 U/L [facility] Lipase [Catalytic activity/Vol] 47 U/L Normal 13-60 [facility] Comment on above: Performed By: #### L IP, CP, HCG, CDP, TROPI ####[facility] [address] [place] [address] lab Director: Caden Brown MD No Panel Informationon 11-16 [facility] Portable XR Chest AP single viewon 11-16-2024 Normal chest. PN [facility] CONSOLIDATED CLINICAL HISTORY: Shortness of breath. Chest pain. CHEST PORTABLE AP VIEW: The lungs are clear. No pneumothorax. The pulmonary vascularity and cardiomediastinal silhouette are normal. No acute fracture is seen. [facility] CONSOLID[facility] Сергей Cobian MD - 11/16/2024 CLINICAL HISTORY: Shortness of breath. Chest pain. CHEST PORTABLE AP VIEW: The lungs are clear. No pneumothorax. The pulmonary vascularity and cardiomediastinal silhouette are normal. No acute fracture is seen. IMPRESSION: Normal chest. [facility] Radiology Study observation (narrative) Darek Jimenez [facility] Portable XR Chest AP single viewOrdered By: Сергей Cobian on 11-16-2024 [facility] Work Phone: Rapid influenza A/B antigens on 11-16-2024 FLUAV Ag Ql (Unsp spec) Negative NEGATIVE B on [facility] Comment on above: for Influenza A Anti gen FLUBV Ag Ql (Unsp spec) Negative NEGATIVE B on [facility] Comment on above: for Influenza B Anti gen. [facility] [id number] 11-16-2024 SARS-CoV-2 (COVID-19) RNA JANET+probe Ql (Unsp spec) Not detected Normal NOTDET [facility] Comment on above: Result Comment: Rapid NAAT: [...] Acid Amplification Performed By: #### C OVRB ####[facility] [address] [place], [place] [phone] lab Director: Caden Brown MD Troponinon 11-16-2024 Troponin I.cardiac High sensitivity method [Mass/Vol] ng/L 0 - 14 ng/L [facility] Comment on above: High Sensitivity Tro ponin values cannot be compared with other Troponin methodologies. [facility] Troponin, High Sens <6 Normal 0-14 [facility] Comment on above: Result Comment: High Sensitivity Troponin values cannot be compared with other Troponin methodologies. Performed By: #### L IP, CP, HCG, CDP, TROPI ####[facility] [address] [facility] [place] [address] Lab Director: Caden Brown MD Urinalysison 11-16-2024 Bilirubin Ql (U) Negative NEGATIVE Bon [facility] Clarity (U) Clear Clear [facility] Color (U) Yellow Yellow [facility] Comment [facility] Glucose Test strip (U) [Mass/Vol] Negative NEGATIVE mg/dL [facility] Hemoglobin Auto test strip Ql (U) Negative NEGATIVE [facility] Ketones (U) [Mass/Vol] Negative NEGAT WOODY mg/dL [facility] Leukocyte esterase Test strip Ql (U) Negative NEGATIVE [facility] Nitrite Ql (U) Negative NEGATIVE [facility] pH (U) 7.0 [pH] 5.0 - 8.0 [facility] Protein (U) [Mass/Vol] Negative NEGAT WOODY mg/dL [facility] Specific gravity (U) [Rel density] 1.010 1.005 - 1.030 [facility] Urobilinogen Qn (U) Normal 0.0 - 1. 0 EU/dL [facility] Urinalysis, Routineon 2024 Bilirubin, SemiQt,Ur Negative Normal NEG [facility] Comment on above: Performed By: #### U A #### [facility] [address] [place] [address] Candlemaker: Caden Brown MD Blood, Urine Negative Normal NEG [facility] Comment on above: Performed By: #### U A #### [facility] [address] [place] [address] Candlemaker: Caden Brown MD Clarity (U) Clear Normal CLEAR [facility] Comment on above: Performed By: #### U A #### [facility] [address] [facility] [place] [phone] Candlemaker: Caden Brown MD Color (U) Yellow Normal YEL [facility] Comment on above: Performed By: #### U A #### [facility] [address] [facility] [place] [phone] Candlemaker: Caden Brown MD Comment Normal [facility] Comment on above: Performed By: #### U A #### [facility] [address] [place], [place] [phone] Candlemaker: Caden Brown MD Glucose Ql (U) Negative Normal NEG [facility] Comment on above: Performed By: #### U A #### [facility] [address] [place], [place] [phone] Candlemaker: Caden Brown MD Ketones Ql (U) Negative Normal NEG [facility] Comment on above: Performed By: #### U A #### [facility] [address] [place], [place] [phone] Candlemaker: Caden Brown MD Leukocyte esterase Test strip Ql (U) Negative Normal NEG [facility] Comment on above: Performed By: #### U A #### [facility] [address] [place], [place] [phone] Candlemaker: Caden Brown MD Nitrite,Ur Negative Normal NEG [facility] Comment on above: Performed By: #### U A #### [facility] [address] [place], [place] [phone] Candlemaker: Caden Brown MD PH,Ur 7.0 Normal 5.0-8.0 [facility] Comment on above: Performed By: #### U A #### [facility] [address] [place], [place] [phone] Candlemaker: Caden Brown MD Protein Ql (U) Negative Normal NEG [facility] Comment on above: Performed By: #### U A #### [facility] [address] [place], [place] 18[address] Candlemaker: Caden Brown MD Spec. Addison,Ur 1.010 Normal 1.005-1.03 0 [facility] Comment on above: Performed By: #### U A #### [facility] [address] [place], [place] [phone] Candlemaker: Caden Brown MD Urobilinogen,Ur Normal Normal 0.0-1.0 [facility] Comment on above: Performed By: #### U A #### [facility] [address] [place] [address] Candlemaker: Caden Brown MD XR CHEST PORTABLEon 11-16-19 XR CHEST PORTABLE CLINICAL HISTORY: Shortness of breath. Chest pain. CHEST PORTABLE AP VIEW: The lungs are clear. No pneumothorax. The pulmonary vascularity and cardiomediastinal silhouette are normal. No acute fracture is seen. IMPRESSION: Normal chest. Interpreted by: Сергей Cobian MD Signed by: Сергей Cobian MD 11/16/24 Final result Normal [facility] HCG ( test) Ql (U)o n 10-23-2024 Interpretation and review of laboratory results Normal [facility] Preg Test, Ur Negative Negative [facility] HCG ( test) Ql (U)o n 08-27-2024 Beta HCG ( test) Ql (U) Negative Normal NEG [facility] Comment on above: Performed By: #### 2 106-3 #### [facility] ([id number]) [address] [place] [address] Surgical Pathologyon 024 Surgical Pathology Normal [facility] Comment on above: Result Comment: [facility] [address] [place] [address] Surgical Pathology Consultation Patient Name:CHARIS ALLENB:2000 (Age: 23)Gender:FTaken:08/27/2024eported:09/06/2024hysician(s):Sanjeev javid-Catie DO Dick ([phone])Copy To: Rec. 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 Report Electronically Signed Out cjb/09/06/2024eri Arguelles MD Interpretation performed at [facility], [address] [place] [address], License number: [id number]. Clinical History Lesion of tongue. Gross Description Received in formalin labeled TIFFANY, right base of tongue lesion is a Telfa pad with two travis-yellow rubbery soft tissue bits, 0.2 and 0.3 cm. The specimen is filtered and entirely submitted in a single cassette. (1, ns, [id number]) DM. dm/08/27/2024NSK Specimen(s) Received Right base of tongue Fee Codes(s): 1; 99954 CNOVon 07-25-2024 CNOV Office Visit (PODIAM ) -------- CHARIS ALLEN ([id number]) 4 F Date Time Provider Department 07/25/24 11:45 AM ÁNGELA DELGADO PODIAM During your visit today, we recorded the following information about you: Ángela Delgado, DPKatarzyna 07/25/2024 5:34 PM Signed Service Date: July [...] which included preparing to see the patient, [id number] patient care, completing clinical documentation, obtaining and/or reviewing separately obtained history, performing a medically appropriate examination, counseling and educating the patient/family/caregiver , ordering medications, tests and care coordination (not separately reported). Time did not include procedure time. I agree with the Chief Complaint, ROS, and Past Histories independently gathered by the clinical high school learning support teacher and the remaining scribed note accurately describes [...] GENERAL INS (more content not included)... Normal [facility] CT NECK SOFT TISSUE W CONTon [...] [place] Ty on 07/11/2024 8:38 AM Normal [facility] TB PREG QUANT HCGon 024 HCG QUANTITATIVE <1 mIU/mL [facility] Comment on above: 5-50 0.2-1 WEEK 50-500 1-2 WEEKS 100-5,000 2-3 WEEKS 500-10,000 3-4 WEEKS 1,000-50,000 4-5 WEEKS 10,000-100,000 5-6 WEEKS 15,000-200,000 6-8 WEEKS 10,000-100,000 2-3 MONTHS [facility] CT abdomen pelvis w conon CT abdomen pelvis w con [place] [address] CT Scan Report Signed Patient: Charis Allen MR#: [id number] : 2000 Acct:[id number] Age/Sex: 23 / F ADM Date: 06/27/24 Loc: ER Room: Type: [facility] ER Attending Dr: Copies to: [...] Michael Camacho M.D.06/28/2024 6:18 AM Dictation Location: [place] [address] Transcribed By: [facility] 06/28/24617 Dictated By: Michael Camacho DO 06/28/2416 Signed By: 06/28/2418 Normal [facility] Chlamydia/GC Amplificationon 06-28-2024 Chlamydia Trachomotis, JANET Negative Normal Negative [facility] Comment on above: Order Comment: SOURC E OF SPECIMEN: Genital Performed By: #### F S #### [place] [address] [place] #### GCCHLAMAMP #### [facility] , Neisseria Gonorrhoeae, JANET Negative Normal Negative [facility] Comment on above: Order Comment: SOURC E OF SPECIMEN: Genital Result Comment: Perf ormed at: =G - [facility] [address] [id number] Candlemaker: Barbie Mota MD, Phone: [phone] PERFORMED BY: [place] [address] PATHOLOGIST REAMING MACHINE TENDER SAMANTHA VILLAR M.D. Performed By: #### F S #### [place] [address] [place] #### GCCHLAMAMP #### [facility] , Fungal Smearon 06-28-2024 Fungal Smear Fungus Smear Results No Yeast Like Elements Seen ------ Trichomonas Screen No Trichomonas Seen Trich Reference Reference range = None Seen PERFORMED BY: [facility] [address] [place] [address] PATHOLOGIST REAMING MACHINE TENDER SAMANTHA VILLAR M.D. Normal [facility] Comment on above: Performed By: #### F S #### [facility] [address] #### GCCHLAMAMP #### [facility] , Trichomonas vaginalis detect ion by wet preparationOrdered By: Yung Nichols on 06-28-2024 T. vaginalis Wet prep Ql (Unsp spec) [facility] Alanine aminotransferase [En zymatic activity/volume] in Serum or PlasmaOrdered By: Yung Nichols on 06-27-2024 ALT [Catalytic activity/Vol] 20 U/L Normal 7-52 [facility] Comment on above: Performed By: #### C MP, LIPASE, CBC ####[facility] [id number] Albumin [Mass/volume] in Ser um or Plasma by Bromocresol green (BCG) dye binding methoOrdered By: Yung Nichols on 06-27-2024 Albumin BCG dye [Mass/Vol] 4.2 g/dL 3.5-5.7 [facility] Alkaline phosphatase [Enzyma tic activity/volume] in Serum or PlasmaOrdered By: Yung Nichols on 06-27-2024 ALP [Catalytic activity/Vol] 69 U/L Normal 34-104 [facility] Comment on above: Performed By: #### C MP, LIPASE, CBC ####[facility] [id number] [address] Aspartate aminotransferase [ Enzymatic activity/volume] in Serum or PlasmaOrdered By: Yung Nichols on 06-27-2024 AST [Catalytic activity/Vol] 21 U/L Normal 13-39 [facility] Comment on above: Performed By: #### C MP, LIPASE, CBC ####[address] Automated basophil %Ordered By: Yung Nichols on 06-27-2024 Basophils/100 WBC (Bld) 0.6 % Normal . [facility] Comment on above: Performed By: #### C MP, LIPASE, CBC ####[address] Automated basophil countOrde red By: Yung Nichols on 06-27-2024 Basophils (Bld) [#/Vol] 0.0 10*3/uL Normal 0.0-0.2 [facility] Comment on above: Result Comment: PERF ORMED BY: [facility] [address] [place] [address] PATHOLOGIST REAMING MACHINE TENDER SAMANTHA VILLAR M.D. Performed By: #### C MP, LIPASE, CBC ####[address] Automated blood monocyte cou ntOrdered By: Yung Nichols on 06-27-2024 Monocytes (Bld) [#/Vol] 0.5 10*3/uL Normal 0.0-0.8 [facility] Comment on above: Performed By: #### C MP, LIPASE, CBC ####[address] Automated eosinophil %Ordere d By: Yung Nichols on 06-27-2024 Eosinophils/100 WBC (Bld) 1.4 % Normal . [facility] Comment on above: Performed By: #### C MP, LIPASE, CBC ####[address] Automated eosinophil countOr dered By: Yung Nichols on 06-27-2024 Eosinophils (Bld) [#/Vol] 0.1 10*3/uL Normal 0.0-0.45 [facility] Comment on above: Performed By: #### C MP, LIPASE, CBC ####[facility] [id number] [place] [address] [facility] Automated monocyte %Ordered By: Yung Nichols on 06-27-2024 Monocytes/100 WBC (Bld) 6.7 % Normal . [facility] Comment on above: Performed By: #### C MP, LIPASE, CBC ####[place] [address] [place] [id number] [facility] Automated neutrophil %Ordere d By: Yung Nichols on 06-27-2024 Neutrophils/100 WBC (Bld) 63.9 % Normal . [facility] Comment on above: Performed By: #### C MP, LIPASE, CBC ####[place] [address] Bacteria [Presence] in Urine by AutomatedOrdered By: Yung Nichols on 06-27-2024 Bacteria Auto Ql (U) Rare [HPF] None Seen [facility] Bilirubin Test strip Ql (U)O rdered By: Yung Nichols on 06-27-2024 Bilirubin Ql (U) Negative Negative [facility] Bilirubin.total [Mass/volume ] in Serum or PlasmaOrdered By: Yung Nichols on 06-27-2024 Bilirubin [Mass/Vol] 1.5 mg/dL High 0.3-1.[address] [facility] Comment on above: Samples from patient [...] Performed By: #### C MP, LIPASE, CBC ####[place] [address] [place] [id number] [facility] Calcium [Mass/volume] in Ser um or PlasmaOrdered By: Yung Nichols on 06-27-2024 Calcium [Mass/Vol] 9.1 mg/dL Normal 8.6-10.3 [facility] Comment on above: Performed By: #### C MP, LIPASE, CBC ####[address] Carbon dioxide, total [Moles /volume] in Serum or PlasmaOrdered By: Yung Nichols on 06-27-2024 CO2 [Moles/Vol] 26.8 mmol/L Normal 21.0-31.0 [facility] Comment on above: Performed By: #### C MP, LIPASE, CBC ####[address] Chloride [Moles/volume] in S emiliana or PlasmaOrdered By: Yung Nichols on 06-27-2024 Chloride [Moles/Vol] 105 mmol/L Normal 98-[address] [facility] Comment on above: Performed By: #### C MP, LIPASE, CBC ####[address] Color of Urine by AutoOrdere d By: Yung Nichols on 06-27-2024 Color (U) Yellow Normal Yellow [facility] Comment on above: Order Comment: SOURC E OF SPECIMEN: Genital Performed By: #### F S #### [address] #### GCCHLAMAMP #### [facility] , Complete Blood Count Auto Di ffon 06-27-2024 Mean Corpuscular HGB Conc 33.3 g/dL Normal 32.0-35.0 [facility] Comment on above: Performed By: #### C MP, LIPASE, CBC ####[address] Monocytes/100 WBC (Bld) 20.22 % High 0.00-20.00 [facility] Comment on above: Result Comment: For adults in ED, MDW > 20.0 may be associated with a higher risk of sepsis during the first 12 hrs of hospital admission Performed By: #### C MP, LIPASE, CBC ####[address] NRBC% 0.2 /100{WBC} Normal 0-0.5 [facility] Comment on above: Performed By: #### C MP, LIPASE, CBC ####[address] Comprehensive Metabolic Pane yogi 06-27-2024 Albumin [Mass/Vol] 4.2 g/dL Normal 3.5-5.7 [facility] Comment on above: Performed By: #### C MP, LIPASE, CBC ####[address] Creatinine Clr Calc Pharmacy 115.39 Normal [facility] Comment on above: Performed By: #### C MP, LIPASE, CBC ####[address] GFR/1.73 sq M.predicted MDRD (S/P/Bld) [Vol rate/Area] mL/min/{1.73_m2} Normal [facility] Comment on above: Performed By: #### C MP, LIPASE, CBC ####[address] Creatinine [Mass/volume] in Serum or PlasmaOrdered By: Yung Nichols on 06-27-2024 Creatinine [Mass/Vol] 0.75 mg/dL Normal 0.60-1.20 [facility] Comment on above: Performed By: #### C MP, LIPASE, CBC ####[address] Dipstick and Microscopicon 0 06-27-2024 Bacteria,Urine Rare Normal None Seen [facility] Comment on above: Order Comment: SOURC E OF SPECIMEN: Genital Performed By: #### F S #### [facility] [address] [place] [address] [place] #### GCCHLAMAMP #### [facility] , Bilirubin,Urine Negative Normal Negative [facility] Comment on above: Order Comment: SOURC E OF SPECIMEN: Genital Performed By: #### F S #### [facility] [address] [place] [address] [place] #### GCCHLAMAMP #### [facility] , Glucose Ql (U) Normal Normal Normal [facility] Comment on above: Order Comment: SOURC E OF SPECIMEN: Genital Performed By: #### F S #### [address] #### GCCHLAMAMP #### [facility] , Hyaline Casts,Urine None Normal 0-8 [facility] Comment on above: Order Comment: SOURC E OF SPECIMEN: Genital Performed By: #### F S #### [address] #### GCCHLAMAMP #### [facility] , Mucus,Urine 4+ Critically abnormal [facility] Comment on above: Order Comment: SOURC E OF SPECIMEN: Genital Performed By: #### F S #### [address] #### GCCHLAMAMP #### [facility] , Nitrite,Urine Negative Normal Negative [facility] Comment on above: Order Comment: SOURC E OF SPECIMEN: Genital Performed By: #### F S #### [address] #### GCCHLAMAMP #### [facility] , Occult Blood,Urine 1+ High Negative [facility] Comment on above: Order Comment: SOURC E OF SPECIMEN: Genital Performed By: #### F S #### [place] [address] [place] #### GCCHLAMAMP #### [facility] , Protein,Urine Negative Normal Negative [facility] Comment on above: Order Comment: SOURC E OF SPECIMEN: Genital Performed By: #### F S #### [address] #### GCCHLAMAMP #### [facility] , RBC,Urine 5-9 High 0-4 [facility] Comment on above: Order Comment: SOURC E OF SPECIMEN: Genital Performed By: #### F S #### [place] [address] [place] #### GCCHLAMAMP #### [facility] , Specificy [place],Urine 1.026 Normal 1.00 1-1.03 0 [facility] Comment on above: Order Comment: SOURC E OF SPECIMEN: Genital Performed By: #### F S #### [place] [address] [place] #### GCCHLAMAMP #### [facility] , Squamous Epithelial Cell,Urine 3-4 High 0-2 [facility] Comment on above: Order Comment: SOURC E OF SPECIMEN: Genital Performed By: #### F S #### [place] [address] [place] #### GCCHLAMAMP #### [facility] , Urobilinogen,Urine Normal Normal Normal [facility] Comment on above: Order Comment: SOURC E OF SPECIMEN: Genital Performed By: #### F S #### [place] [address] [place] #### GCCHLAMAMP #### [facility] , WBC,Urine 20-49 High 0-4 [facility] Comment on above: Order Comment: SOURC E OF SPECIMEN: Genital Performed By: #### F S #### [place] [address] [place] #### GCCHLAMAMP #### [facility] , Epithelial cells.squamous [# /area] in Urine sediment by Automated countOrdered By: Yung Nichols on 06-27-2024 Epithelial cells.squamous Auto (Urine sed) [#/Area] 3-4 [HPF] High 0-2 [facility] Erythrocyte distribution wid th [Ratio] by Automated countOrdered By: Yung Nichols on 06-27-2024 Erythrocyte distribution width (RBC) [Ratio] 14.2 % Normal 11.9-15.3 [facility] Comment on above: Performed By: #### C MP, LIPASE, CBC ####[place] [address] [place] [id number] [facility] Erythrocytes [#/area] in Uri ne sediment by Automated countOrdered By: Yung Nichols on 06-27-2024 RBC Auto (Urine sed) [#/Area] 5-9 [HPF] High 0-4 [facility] Erythrocytes [#/volume] in B lood by Automated countOrdered By: Yung Nicohls on 06-27-2024 RBC (Bld) [#/Vol] 4.32 10*6/uL Normal 3.60-5.00 [facility] Comment on above: Performed By: #### C MP, LIPASE, CBC ####[place] [address] [place] [id number] [facility] Glucose [Mass/volume] in Ser um or PlasmaOrdered By: Yung Nichols on 06-27-2024 Glucose [Mass/Vol] 82 mg/dL Normal 70-100 [facility] Comment on above: ADA recommended refe rence rangeRandom Glucose Reference Range is dependent on time and content of last meal. Glucose of more than 200 mg/dL in a nonstressed, ambulatory subject supports the diagnosis of Diabetes Mellitus. Result Comment: [place] om Glucose Reference Range is dependent on time and content of last meal. Glucose of more than 200 mg/dL in a nonstressed, ambulatory subject supports the diagnosis of Diabetes Mellitus. ADA recommended reference range Performed By: #### C MP, LIPASE, CBC ####[facility] [place] [id number] [facility] Glucose [Mass/volume] in Uri ne by Test stripOrdered By: Yung Nichols on 06-27-2024 Glucose Test strip (U) [Mass/Vol] Normal mg/dL Normal [facility] HCG ( test) IA.rapi d Ql (U)Ordered By: Yung Nichols on 06-27-2024 HCG ( test) Ql (U) Negative [facility] HCG,Urineon 06-27-2024 Beta HCG ( test) Ql (U) Negative Normal [facility] Comment on above: Order Comment: SOURC E OF SPECIMEN: Genital Result Comment: PERF ORMED BY: [facility] [address] [place] [address] PATHOLOGIST REAMING MACHINE TENDER SAMANTHA VILLAR M.D. Performed By: #### F S #### [facility] [address] #### GCCHLAMAMP #### [facility] , Hematocrit [Volume Fraction] of Blood by Automated countOrdered By: Yung Nichols on 06-27-2024 Hematocrit (Bld) [Volume fraction] 39.5 % Normal 34.0-46.4 [facility] Comment on above: Performed By: #### C MP, LIPASE, CBC ####[facility] [id number] [address] Hemoglobin Test strip Ql (U) Ordered By: Yung Nichols on 06-27-2024 Hemoglobin Ql (U) 1+ High Negative [facility] Hemoglobin [Mass/volume] in BloodOrdered By: Yung Nichols on 06-27-2024 Hemoglobin (Bld) [Mass/Vol] 13.2 g/dL Normal 11.8-15.4 [facility] Comment on above: Performed By: #### C MP, LIPASE, CBC ####[facility] [id number] [address] Hyaline casts [#/area] in Ur ine sediment by Automated countOrdered By: Yung Nichols on 06-27-2024 Hyaline casts Auto (Urine sed) [#/Area] None [LPF] 0-8 [facility] Ketones [Presence] in Urine by Test stripOrdered By: Yung Nichols on 06-27-2024 Ketones Ql (U) Negative Normal Negative [facility] Comment on above: Order Comment: SOURC E OF SPECIMEN: Genital Performed By: #### F S #### [facility] [address] #### GCCHLAMAMP #### [facility] , Leukocyte esterase [Presence ] in Urine by Test stripOrdered By: Yung Nichols on 06-27-2024 Leukocyte esterase Test strip Ql (U) 4+ High Negative [facility] Comment on above: Order Comment: SOURC E OF SPECIMEN: Genital Performed By: #### F S #### [facility] [address] [place] [address] #### GCCHLAMAMP #### [facility] , Leukocytes [#/area] in Urine sediment by Automated countOrdered By: Yung Nichols on 06-27-2024 WBC Auto (Urine sed) [#/Area] 20-49 [HPF] High 0-4 [facility] Leukocytes [#/volume] correc roe for nucleated erythrocytes in Blood by Automated counOrdered By: Yung Nichols on 06-27-2024 WBC corrected for nucl RBC Auto (Bld) [#/Vol] 7.2 10*3/uL 3.8-11.6 [facility] Leukocytes [#/volume] in Blo od by Automated countOrdered By: Yung Nichols on 06-27-2024 WBC (Bld) [#/Vol] 7.2 10*3/uL Normal 3.8-11.6 [facility] Comment on above: Performed By: #### C MP, LIPASE, CBC ####[facility] [id number] [address] Lipase [Enzymatic activity/v olume] in Serum or PlasmaOrdered By: Yung Nichols on 06-27-2024 Lipase [Catalytic activity/Vol] 19.0 U/L Normal 11.0-82.0 [facility] Comment on above: Result Comment: PERF ORMED BY: [facility] [address] [place] [address] PATHOLOGIST REAMING MACHINE TENDER SAMANTHA VILLAR M.D. Performed By: #### C MP, LIPASE, CBC ####[facility] [id number] [address] Lymphocytes [#/volume] in Bl ood by Automated countOrdered By: Yung Nichols on 06-27-2024 Lymphocytes (Bld) [#/Vol] 2.0 10*3/uL Normal 1.00-4.8 [facility] Comment on above: Performed By: #### C MP, LIPASE, CBC ####[address] Lymphocytes/100 leukocytes i n Blood by Automated countOrdered By: Yung Nichols on 06-27-2024 Lymphocytes/100 WBC (Bld) 27.4 % Normal . [facility] Comment on above: Performed By: #### C MP, LIPASE, CBC ####[address] MCH [Entitic mass] by Automa roe countOrdered By: Yung Nichols on 06-27-2024 MCH (RBC) [Entitic mass] 30.5 pg Normal 24.7-34.3 [facility] Comment on above: Performed By: #### C MP, LIPASE, CBC ####[address] MCHC Auto (RBC) [Mass/Vol]Or dered By: Yung Nichols on 06-27-2024 MCHC (RBC) [Mass/Vol] 33.3 g/dL 32.0-35.0 [facility] MCV [Entitic volume] by Auto mated countOrdered By: Yung Nichols on 06-27-2024 MCV (RBC) [Entitic vol] 91.5 fL Normal 80-100 [facility] Comment on above: Performed By: #### C MP, LIPASE, CBC ####[address] Monocyte distribution width [Entitic volume] in Blood by AutomatedOrdered By: Yung Nichols on 06-27-2024 Monocyte distribution width Auto (Bld) [Entitic vol] 20.22 % High 0.00-20.00 [facility] Comment on above: For adults in ED, MD W > 20.0 may be associated with a higher risk of sepsis during the first 12 hrs of hospital admission Mucus [Presence] in Urine by AutomatedOrdered By: Yung Nichols on 06-27-2024 Mucus Auto Ql (U) 4+ [LPF] Abnormal [facility] Neutrophils [#/volume] in Bl ood by Automated countOrdered By: Yung Nichols on 06-27-2024 Neutrophils (Bld) [#/Vol] 4.6 10*3/uL Normal 1.8-7.7 [facility] Comment on above: Performed By: #### C MP, LIPASE, CBC ####[address] Nitrite Test strip Ql (U)Ord ered By: Yung Nichols on 06-27-2024 Nitrite Ql (U) Negative Negative [facility] No Panel InformationOrdered By: Yung Nichols on 06-27-2024 Estimated GFR (CKD-EPI) > 60.0 mL/Min [facility] Creatinine Clearance (Chem 115.39 [facility] Nucleated erythrocytes [Pres ence] in Blood by Automated countOrdered By: Yung Nichols on 06-27-2024 Nucleated RBC Auto Ql (Bld) 0.2 /100{WBC} 0-0.5 [facility] Platelet mean volume [Entiti c volume] in Blood by Automated countOrdered By: Yung Nichols on 06-27-2024 Platelet mean volume (Bld) [Entitic vol] 8.0 fL Normal 6.3-10.7 [facility] Comment on above: Performed By: #### C MP, LIPASE, CBC ####[address] Platelets [#/volume] in Bloo d by Automated countOrdered By: Yung Nichols on 06-27-2024 Platelets (Bld) [#/Vol] 201 10*3/uL Normal 150-450 [facility] Comment on above: Performed By: #### C MP, LIPASE, CBC ####[address] Potassium [Moles/volume] in Serum or PlasmaOrdered By: Yung Nichols on 06-27-2024 Potassium [Moles/Vol] 3.4 mmol/L Low 3.5-5.1 [facility] Comment on above: Performed By: #### C MP, LIPASE, CBC ####[address] Protein Test strip (U) [Mass /Vol]Ordered By: Yung Nichols on 06-27-2024 Protein (U) [Mass/Vol] Negative Negative [facility] Protein [Mass/volume] in Ser um or PlasmaOrdered By: Yung Nichols on 06-27-2024 Protein [Mass/Vol] 6.4 g/dL Normal 6.4-8.9 [facility] Comment on above: Performed By: #### C MP, LIPASE, CBC ####[place] [id number] Serum globulin measurement b y calculation (mass/volume)Ordered By: Yung Nichols on 06-27-2024 Globulin (S) [Mass/Vol] 2.2 g/dL Normal F [facility] Comment on above: Performed By: #### C MP, LIPASE, CBC ####[place] [address] Serum or plasma albumin/glob ulin mass ratioOrdered By: Yung Nichols on 06-27-2024 Albumin/Globulin [Mass ratio] 1.9 {ratio} Normal [facility] Comment on above: Performed By: #### C MP, LIPASE, CBC ####[address] Serum or plasma anion gap de terminationOrdered By: Yung Nichols on 06-27-2024 Anion gap [Moles/Vol] 10.6 mmol/L Normal 6.0-15.0 [facility] Comment on above: Performed By: #### C MP, LIPASE, CBC ####[address] Sodium [Moles/volume] in Ser um or PlasmaOrdered By: Yung Nichols on 06-27-2024 Sodium [Moles/Vol] 139 mmol/L Normal 136-145 [facility] Comment on above: Performed By: #### C MP, LIPASE, CBC ####[address] Specific gravity Test strip (U) [Rel density]Ordered By: Yung Nichols on 06-27-2024 Specific gravity (U) [Rel density] 1.026 1.001-1.03 0 [facility] Urea nitrogen [Mass/volume] in Serum or PlasmaOrdered By: Yung Nichols on 06-27-2024 Urea nitrogen [Mass/Vol] 17 mg/dL Normal 7-25 [facility] Comment on above: Performed By: #### C MP, LIPASE, CBC ####[facility] [id number] [address] Urine Cultureon 06-27-2024 Bacteria identified Cx Nom (U) 75,000 colonies/ml mixed bacterial skin contaminants 2 Days PERFORMED BY: [facility] [address] [place] [address] PATHOLOGIST REAMING MACHINE TENDER SAMANTHA VILLAR M.D. Normal [facility] Comment on above: Performed By: #### F S #### [facility] [address] [place] [address] #### GCCHLAMAMP #### [facility] , Urine appearanceOrdered By: Yung Nichols on 06-27-2024 Appearance (U) Clear Normal Clear [facility] Comment on above: Order Comment: SOURC E OF SPECIMEN: Genital Performed By: #### F S #### [facility] [address] [place] [address] #### GCCHLAMAMP #### [facility] , Urobilinogen Test strip (U) [Mass/Vol]Ordered By: Yung Nichols on 06-27-2024 Urobilinogen (U) [Mass/Vol] Normal mg/dL Normal [facility] pH of Urine by Test stripOrd ered By: Yung Nichols on 06-27-2024 pH (U) 6.0 [pH] Normal 5.0-9.0 [facility] Comment on above: Order Comment: SOURC E OF SPECIMEN: Genital Performed By: #### F S #### [facility] [address] [place] [address] [place] #### GCCHLAMAMP #### [facility] , TBH PREG QUANT HCGon 024 HCG QUANTITATIVE <1 mIU/mL [facility] Comment on above: 5-50 0.2-1 WEEK 50-500 1-2 WEEKS 100-5,000 2-3 WEEKS 500-10,000 3-4 WEEKS 1,000-50,000 4-5 WEEKS 10,000-100,000 5-6 WEEKS 15,000-200,000 6-8 WEEKS 10,000-100,000 2-3 MONTHS [facility] 12-26-2023 CNOV Office Visit (PODIAM ) -------- CHARIS ALLEN ([id number]) 4 F Date Time Provider Department 12/26/23 [...] the overlying eponychium and underlying nailbed. An Gambian anvil was used to cut the offending [...] A Mome (more content not included)... Normal [facility] CNOVon 11-21-2023 CNOV Office Visit (PODIAM ) -------- CHARIS ALLEN ([id number]) 4 F Date Time Provider Department 11/21/23 2:15 PM ÁNGELA DELGADO During your visit today, we recorded the following information about you: Last Period 11/06/23 Ángela Delgado DPM 11/21/2023 3:03 PM Signed Service Date: November 21, 2023 PCP: No primary care provider on file. Last Podiatry Visit: None at [facility] The history is provided by the [...] order to perform a complete physical exam, [id number] was performed. This incidental service is integral [...] which included preparing to see the patient, [id number] patient care, completing clinical documentation, obtaining and/or reviewing separately obtained history, performing a medically appropriate examination, counseling and educating the patient/family/caregiver , ordering medications, tests, or procedures and care dental hygienist mobile coordinator (more content not included)... Normal [facility] A1C with Estimated Average G sohamgarima 11-08-2023 HbA1c (Bld) [Mass fraction] 5.000 % Normal 4.3-5.6 % [facility] Other HbA1c (Bld) [Mass fraction] 97 mg/dL [facility] Other Alanine aminotransferase [En zymatic activity/volume] in Serum or PlasmaOrdered By: Pérez Barcenas on 11-08-2023 ALT [Catalytic activity/Vol] 15 U/L 7-52 [facility] Albumin [Mass/volume] in Ser um or Plasma by Bromocresol green (BCG) dye binding methoOrdered By: Pérez Barcenas on 11-08-2023 Albumin BCG dye [Mass/Vol] 4.3 g/dL 3.5-5.7 [facility] Alkaline phosphatase [Enzyma tic activity/volume] in Serum or PlasmaOrdered By: Pérez Barcenas on 11-08-2023 ALP [Catalytic activity/Vol] 80 U/L 34-104 [facility] Aspartate aminotransferase [ Enzymatic activity/volume] in Serum or PlasmaOrdered By: Pérez Barcenas on 11-08-2023 AST [Catalytic activity/Vol] 14 U/L 13-39 [facility] Bilirubin.total [Mass/volume ] in Serum or PlasmaOrdered By: Pérez Barcenas on 11-08-2023 Bilirubin [Mass/Vol] 0.8 mg/dL 0.3-1.[address] [facility] Calcium [Mass/volume] in Ser um or PlasmaOrdered By: Pérez Barcenas on 11-08-2023 Calcium [Mass/Vol] 9.7 mg/dL 8.6-10.3 [facility] Carbon dioxide, total [Moles /volume] in Serum or PlasmaOrdered By: Pérez Barcenas on 11-08-2023 CO2 [Moles/Vol] 29.4 mmol/L 21.0-31.0 [facility] Chloride [Moles/volume] in S emiliana or PlasmaOrdered By: Pérez Barcenas on 11-08-2023 Chloride [Moles/Vol] 105 mmol/L 98-[address] [facility] Cholesterol [Mass/volume] in Serum or PlasmaOrdered By: Pérez Barcenas on 11-08-2023 Cholesterol [Mass/Vol] 128 mg/dL 140-200 [facility] [facility] Comment on above: Chol less than 200 m g/dl low riskChol 201-239 mg/dl borderline riskChol 240 mg/dl and greater high risk Cholesterol in LDL Calc [Mas s/Vol]Ordered By: Pérez Barcenas on 11-08-2023 Cholesterol in LDL [Mass/Vol] 70 mg/dL 0-100 [facility] Comment on above: LDL ATP III CLASSIFI CATIONLDL less than 100 mg/dL OptimalLDL 100-129 mg/dL Near or above optimalLDL 130-159 mg/dL Borderline highLDL 160-189 mg/dL HighLDL greater than 189 mg/dL Very high Cholesterol in VLDL Calc [Ma ss/Vol]Ordered By: Pérez Barcenas on 11-08-2023 Cholesterol in VLDL [Mass/Vol] 10 mg/dL [facility] Comprehensive Metabolic Pane yogi 11-08-2023 Albumin [Mass/Vol] 4.773515 g/dL Normal 3.5-5.7 g/dL [facility] Other Bilirubin [Mass/Vol] 0.6347968 mg/dL Normal 0.3- 1.0 mg/dL [facility] Other Calcium [Mass/Vol] 9.0743086 mg/dL Normal 8.6-10 .3 mg/dL [facility] Other CO2 [Moles/Vol] 29.58728871 mmol/L Normal 21.0-3 1.0 mmol/L [facility] Other Creatinine [Mass/Vol] 0.75302629 mg/dL Normal 0. 60-1.20 mg/dL [facility] Other GFR/1.73 sq M.predicted MDRD (S/P/Bld) [Vol rate/Area] mL/min/{1.73_m2} [facility] Other Potassium [Moles/Vol] 4.87502981 mmol/L Normal 3 .5-5.1 mmol/L [facility] Other Protein [Mass/Vol] 6.776184 g/dL Normal 6.4-8.9 g/dL [facility] Other Comprehensive Metabolic Panel 2.2 g/dL [facility] Other Creatinine [Mass/volume] in Serum or PlasmaOrdered By: Pérez Barcenas on 11-08-2023 Creatinine [Mass/Vol] 0.68 mg/dL 0.60-1.20 [facility] Globulin Calc (S) [Mass/Vol] Ordered By: Pérez Barcenas on 11-08-2023 Globulin (S) [Mass/Vol] 2.2 g/dL [facility] Glucose [Mass/volume] in Ser um or PlasmaOrdered By: Pérez Barcenas on 11-08-2023 Glucose [Mass/Vol] 80 mg/dL 70-100 [facility] Comment on above: ADA recommended refe [...] from glycated hemoglobin (Bld) [Mass/Vol] 97 mg/dL [facility] Hemoglobin A1c percentageOrd ered By: Pérez Barcenas on 11-08-2023 HbA1c (Bld) [Mass fraction] 5.0 % 4.3-5.6 [facility] Comment on above: Increased risk for d iabetes: 5.7 - 6.4diabetes: >6.4glycemic control for adults with diabetes: <7.0 Lipid Panelon 11-08-2023 Cholesterol in LDL Elph Qn 70 mg/dL Normal 0-100 mg/dL [facility] Other Lipid Panel 54 mg/dL Normal 0-149 mg/dL [facility] Other Lipid Panel 10 mg/dL [facility] Other No Panel InformationOrdered By: Pérez Barcenas on 11-08-2023 Estimated GFR (CKD-EPI) > 60.0 mL/Min [facility] Creatinine Clearance (Chem N/A [facility] Potassium [Moles/volume] in Serum or PlasmaOrdered By: Pérez Barcenas on 11-08-2023 Potassium [Moles/Vol] 4.3 mmol/L 3.5-5.1 [facility] Protein [Mass/volume] in Ser um or PlasmaOrdered By: Pérez Barcenas on 11-08-2023 Protein [Mass/Vol] 6.5 g/dL 6.4-8.9 [facility] Serum or plasma albumin/glob ulin mass ratioOrdered By: Pérez Barcenas on 11-08-2023 Albumin/Globulin [Mass ratio] 2.0 {ratio} [facility] Serum or plasma anion gap de terminationOrdered By: Pérez Barcenas on 11-08-2023 Anion gap [Moles/Vol] 8.9 mmol/L 6.0-15.0 [facility] Serum or plasma high density lipoprotein (HDL) cholesterol measurementOrdered By: Pérez Barcenas on 11-08-2023 Cholesterol in HDL [Mass/Vol] 47 mg/dL 23-92 [facility] Comment on above: HDL CHOL ATP-III CLA SSIFICATION Cardiovascular RiskHDL > or equal to 60 mg/dL LOWHDL < 40 mg/dL HIGH Serum or plasma total choles terol/high density lipoprotein (HDL) cholesterol mass ratOrdered By: Pérez Barcenas on 11-08-2023 Cholesterol.total/Lulu sterol in HDL [Mass ratio] 2.7 {ratio} <5.0 [facility] Sodium [Moles/volume] in Ser um or PlasmaOrdered By: Pérez Barcenas on 11-08-2023 Sodium [Moles/Vol] 139 mmol/L 136-145 [facility] Thyroid Stimulating Hormoneo n 11-08-2023 TSH Qn 1.02473884605 m[IU]/L Normal 0.45-5 .33 u[iU]/mL [facility] Other Thyrotropin [Units/volume] i n Serum or PlasmaOrdered By: Pérez Barcenas on 11-08-2023 TSH Qn 1.24 m[IU]/L 0.45-5.33 [facility] Triglyceride [Mass/volume] i n Serum or PlasmaOrdered By: Pérez Barcenas on 11-08-2023 Triglyceride [Mass/Vol] 54 mg/dL 0-149 [facility] Comment on above: TRIG ATP III CLASSIF ICATIONTRIG less than 150 mg/dL NormalTRIG 150-199 mg/dL Borderline highTRIG 200-500 mg/dL High TRIG greater than 500 mg/dL Very highStandard traceable to the Center for Disease Conrtrol and Prevention (CDC) test method. Urea nitrogen [Mass/volume] in Serum or PlasmaOrdered By: Pérez Barcenas on 11-08-2023 Urea nitrogen [Mass/Vol] 13 mg/dL 7-25 [facility] Erythrocyte distribution wid th Auto (RBC) [Ratio]Ordered By: ERLIN Vann on 08-17-2023 Erythrocyte distribution width (RBC) [Ratio] 14.4 % 11.9-15.3 [facility] Hematocrit Auto (Bld) [Volum e fraction]Ordered By: ERLIN Vann on 08-17-2023 Hematocrit (Bld) [Volume fraction] 35.2 % 34.0-46.4 [facility] Hemoglobin [Mass/volume] in BloodOrdered By: ERLIN Vann on 08-17-2023 Hemoglobin (Bld) [Mass/Vol] 11.7 g/dL 11.8-15.4 [facility] Leukocytes [#/volume] correc roe for nucleated erythrocytes in Blood by Automated counOrdered By: ERLIN Vann on 08-17-2023 WBC corrected for nucl RBC Auto (Bld) [#/Vol] 8.0 10*3/uL 3.8-11.6 [facility] MCH Auto (RBC) [Entitic mass ]Ordered By: ERLIN Vann on 08-17-2023 MCH (RBC) [Entitic mass] 29.8 pg 24.7-34.3 [facility] MCHC Auto (RBC) [Mass/Vol]Or dered By: ERLIN Vann on 08-17-2023 MCHC (RBC) [Mass/Vol] 33.3 g/dL 32.0-35.0 [facility] MCV Auto (RBC) [Entitic vol] Ordered By: ERLIN Vann on 08-17-2023 MCV (RBC) [Entitic vol] 89.6 fL 80-100 [facility] Platelet mean volume Auto (B ld) [Entitic vol]Ordered By: ERLIN Vann on 08-17-2023 Platelet mean volume (Bld) [Entitic vol] 8.1 fL 6.3-10.7 [facility] Platelets Auto (Bld) [#/Vol] Ordered By: ERLIN Vann on 08-17-2023 Platelets (Bld) [#/Vol] 186 10*3/uL 150-450 [facility] RBC Auto (Bld) [#/Vol]Steph fuentes By: -BRANDEN Vann on 08-17-2023 RBC (Bld) [#/Vol] 3.93 10*6/uL 3.60-5.00 [facility] CNPNon 08-16-2023 CNPN Telephone ([facility]) -------- CHARIS ALLEN ([id number]) 4 F Date Time Provider Department 08/16/23 [...] calling: self Call patient at: at home [phone] (home) [phone] (cell) Was an appointment scheduled: No Closing statement: Results or non-symptom based questions: Thank you for calling [facility] [place] [facility], your call will be returned within [...] Fully Assessed Reason for Visit: Patient Question [1307] Prescriptions as of 08/21/2023 - Sulfacetamide Sodium-Sulfur [...] by MAMTA HERNÁNDEZ LPN on 08/21/23 Normal [facility] BILIRUBIN CONJUGATED (DIRECT )on 01-03-2023 BILI, CONJUGATED 0.2 mg/dL Normal 0.0-0.2 [facility] Comment on above: Performed By: #### D NAN, CMP #### [facility] [address] [address] [address] Yvette Ohara PROF 14(COMP METB)on 023 Albumin [Mass/Vol] 4.1 g/dL Normal 3.4-5.0 [facility] Comment on above: Performed By: #### D NAN, CMP #### [facility] [address] [address] [address] Yvette Ohara Albumin/Globulin [Mass ratio] 1.3 {ratio} Normal [facility] Comment on above: Performed By: #### D NAN, CMP #### [facility] [address] [place] [address] Dr. Yvette Ohara ALP [Catalytic activity/Vol] 122 U/L Critically high 46-116 [facility] Comment on above: Performed By: #### D NAN, CMP #### [facility] [address] [place] [address] Dr. Yvette Ohara ALT [Catalytic activity/Vol] 38 U/L Normal 14-59 [facility] Comment on above: Performed By: #### D NAN, CMP #### [facility] [address] [place] [address] Dr. Yvette Ohara Anion gap [Moles/Vol] 13.9 mmol/L Normal [facility] Comment on above: Performed By: #### D NAN, CMP #### [facility] [address] [address] [address] Yvette Ohara AST [Catalytic activity/Vol] 20 U/L Normal 15-37 [facility] Comment on above: Performed By: #### D NAN, CMP #### [facility] [address] [address] [address] Yvette Ohara Bilirubin [Mass/Vol] 0.9 mg/dL Normal 0.2-1.0 [facility] Comment on above: Performed By: #### D NAN, CMP #### [facility] [address] [address] [address] Yvette Ohara Calcium [Mass/Vol] 9.2 mg/dL Normal 8.5-10.1 [facility] Comment on above: Performed By: #### D NAN, CMP #### [facility] [address] [address] [address] Yvette Ohara Chloride [Moles/Vol] 107 mmol/L Normal 98-107 [facility] Comment on above: Performed By: #### D NAN, CMP #### [facility] [address] [address] [address] Yvette Ohara CO2 [Moles/Vol] 26.9 mmol/L Normal 21.0-32.0 [facility] Comment on above: Performed By: #### D NAN, CMP #### [facility] [address] [place] [address] Dr. Yvette Ohara Creatinine [Mass/Vol] 0.87 mg/dL Normal 0.55-1.02 [facility] Comment on above: Performed By: #### D NAN, CMP #### [facility] [address] [place] [address] Dr. Yvette Ohara EGFR-AF CHILEAN >60 Normal >=60 [facility] Comment on above: Performed By: #### D NAN, CMP #### [facility] [address] [place] [address] Dr. Yvette Ohara EGFR-NON AF CHILEAN >60 Normal >=60 [facility] Comment on above: Performed By: #### D NAN, CMP #### [facility] [address] [place] [address] Dr. Yvette Ohara Globulin (S) [Mass/Vol] 3.2 g/dL Normal [facility] Comment on above: Performed By: #### D NAN, CMP #### [facility] [address] [address] [address] Yvette Ohara Glucose [Mass/Vol] 141 mg/dL Critically high 74-106 [facility] Comment on above: Performed By: #### D NAN, CMP #### [facility] [address] [place] [address] Dr. Yvette Ohara Potassium [Moles/Vol] 3.8 mmol/L Normal 3.5-5.1 [facility] Comment on above: Performed By: #### D NAN, CMP #### [facility] [address] [address] [address] Yvette Ohara Protein [Mass/Vol] 7.3 g/dL Normal 6.4-8.2 [facility] Comment on above: Performed By: #### D NAN, CMP #### [facility] [address] [address] [address] Yvette Ohara Sodium [Moles/Vol] 144 mmol/L Normal 136-145 [facility] Comment on above: Performed By: #### D NAN, CMP #### [facility] [address] [address] [address] Yvette Ohara Urea nitrogen [Mass/Vol] 9.0 mg/dL Normal 7.0-18.0 [facility] Comment on above: Performed By: #### D NAN, CMP #### [facility] [address] [place] [address] Dr. Yvette Ohara Urea nitrogen/Creatinine [Mass ratio] 10.3 mg/mg Normal [facility] Comment on above: Performed By: #### D NAN, CMP #### [facility] [address] [place] [address] Dr. Yvette Ohara IGF 1on 01-02-2023 INSULIN LIKE GROWTH FACTOR I 391 [facility] Comment on above: Result Comment: Refe [...] 10 years 85 - 526 PERFORMED AT [facility] Performed By: #### L IGF1 #### Testing performed at [facility] SALIVARY CORTISOLon 12-27-19 23 Salivary Cortisol, [place] 0.021 ug/dL Normal [facility] Comment on above: Result Comment: This test was developed and its performance characteristics determined by [employer]. It has not been cleared or approved by the Food and Drug Administration. Reference Range: Children and Adults: 8:00a.m.: 0.025 - 0.600 Noon: <0.010 - 0.330 4:00p.m.: 0.010 - 0.200 Midnight: <0.010 - 0.090 Performed By: #### C JESSICA DOWLING #### [facility] [address] [place] [address] Dr. Yvette Ohara TESTOSTERONE, FREE,DIRECT, T OTALon 12-21-2022 Free Testosterone(Direct) 2.4 pg/mL Normal 0.0-4.2 [facility] Comment on above: Result Comment: Perf ormed at: BN Performed By: #### T ESTFRD #### [facility] [address] [place] [address] Dr. Yvette Ohara Testosterone [Mass/Vol] 41 ng/dL Normal 13-71 [facility] Comment on above: Result Comment: Perf ormed at: CB Performed By: #### T ESTFRD #### [facility] [address] [place] [address] Dr. Yvette Ohara DHEA-SULFATEon 12-16-2022 DHEA-Sulfate 410.0 ug/dL Normal 110.0-431. 7 [facility] Comment on above: Performed By: #### C JOSEY, JESSICA #### [facility] [address] [place] [address] Dr. Yvette Ohara INSULINon 12-16-2022 Insulin 16.6 uIU/mL Normal 2.6-24.9 [facility] Comment on above: Performed By: #### C JOSEY, JESSICA #### [facility] [address] [place] [address] Dr. Yvette Ohara GLYCOHEMOGLOBIN A1Con 2022 ADA RECOMMENDATION SEE BELOW Normal [facility] Comment on above: Result Comment: ADA RECOMMENDED LIMIT 4.0 - 6.0 ADA THERAPEUTIC TARGET < 7.0 ACTION SUGGESTED > 7.0 Performed By: #### A 1C #### [facility] [address] [place] [address] Dr. Yvette Ohara Glucose [Mass/Vol] 108 mg/dL Normal [facility] Comment on above: Performed By: #### A 1C #### [facility] [address] [place] [address] Dr. Yvette Ohara HbA1c (Bld) [Mass fraction] 5.4 % Normal 4.5-6.2 [facility] Comment on above: Performed By: #### A 1C #### [facility] [address] [place] [address] Dr. Yvette Ohara PROF 14(COMP METB)on 023 Albumin [Mass/Vol] 4.4 g/dL Normal 3.4-5.0 [facility] Comment on above: Performed By: #### C MP, TSH, T4 #### [facility] [address] [place] [address] Dr. Yvette Ohara Albumin/Globulin [Mass ratio] 1.3 {ratio} Normal [facility] Comment on above: Performed By: #### C MP, TSH, T4 #### [facility] [address] [place] [address] Dr. Yvette Ohara ALP [Catalytic activity/Vol] 133 U/L Critically high 46-116 [facility] Comment on above: Performed By: #### C MP, TSH, T4 #### [facility] [address] [place] [address] Dr. Yvette Ohara ALT [Catalytic activity/Vol] 32 U/L Normal 14-59 [facility] Comment on above: Performed By: #### C MP, TSH, T4 #### [facility] [address] [place] [address] Dr. Yvette Ohara Anion gap [Moles/Vol] 12.9 mmol/L Normal [facility] Comment on above: Performed By: #### C MP, TSH, T4 #### [facility] [address] [place] [address] Dr. Yvette Ohara AST [Catalytic activity/Vol] 18 U/L Normal 15-37 [facility] Comment on above: Performed By: #### C MP, TSH, T4 #### [facility] [address] [address] [address] Yvette Ohara Bilirubin [Mass/Vol] 1.2 mg/dL Critically high 0.2-1.0 [facility] Comment on above: Performed By: #### C MP, TSH, T4 #### [facility] [address] [place] [address] Dr. Yvette Ohara Calcium [Mass/Vol] 9.5 mg/dL Normal 8.5-10.1 [facility] Comment on above: Performed By: #### C MP, TSH, T4 #### [facility] [address] [place] [address] Dr. Yvette Ohara Chloride [Moles/Vol] 106 mmol/L Normal 98-107 [facility] Comment on above: Performed By: #### C MP, TSH, T4 #### [facility] [address] [place] [address] Dr. Yvette Ohara CO2 [Moles/Vol] 28.0 mmol/L Normal 21.0-32.0 [facility] Comment on above: Performed By: #### C MP, TSH, T4 #### [facility] [address] [place] [address] Dr. Yvette Ohara Creatinine [Mass/Vol] 0.85 mg/dL Normal 0.55-1.02 [facility] Comment on above: Performed By: #### C MP, TSH, T4 #### [facility] [address] [place] [address] Dr. Yvette Ohara EGFR-AF CHILEAN >60 Normal >=60 [facility] Comment on above: Performed By: #### C MP, TSH, T4 #### [facility] [address] [place] [address] Dr. Yvette Ohara EGFR-NON AF CHILEAN >60 Normal >=60 [facility] Comment on above: Performed By: #### C MP, TSH, T4 #### [facility] [address] [place] [address] Dr. Yvette Ohara Globulin (S) [Mass/Vol] 3.3 g/dL Normal T [facility] Comment on above: Performed By: #### C MP, TSH, T4 #### [facility] [address] [place] [address] Dr. Yvette Ohara Glucose [Mass/Vol] 98 mg/dL Normal 74-106 [facility] Comment on above: Performed By: #### C MP, TSH, T4 #### [facility] [address] [place] [address] Dr. Yvette Ohara Potassium [Moles/Vol] 3.9 mmol/L Normal 3.5-5.1 [facility] Comment on above: Performed By: #### C MP, TSH, T4 #### [facility] [address] [place] [address] Dr. Yvette Ohara Protein [Mass/Vol] 7.7 g/dL Normal 6.4-8.2 [facility] Comment on above: Performed By: #### C MP, TSH, T4 #### [facility] [address] [place] [address] Dr. Yvette Ohara Sodium [Moles/Vol] 143 mmol/L Normal 136-145 [facility] Comment on above: Performed By: #### C MP, TSH, T4 #### [facility] [address] [place] [address] Dr. Yvette Ohara Urea nitrogen [Mass/Vol] 13.0 mg/dL Normal 7.0-18.0 [facility] Comment on above: Performed By: #### C MP, TSH, T4 #### [facility] [address] [place] [address] Dr. Yvette Ohara Urea nitrogen/Creatinine [Mass ratio] 15.3 mg/mg Normal [facility] Comment on above: Performed By: #### C MP, TSH, T4 #### [facility] [address] [place] [address] Dr. Yvette Ohara T4on 12-15-2022 T4 [Mass/Vol] 5.90 ug/dL Normal 4.80-13.90 [facility] Comment on above: Performed By: #### C MP, TSH, T4 #### [facility] [address] [place], [place] [address] Dr. Yvette Ohara TSHon 12-15-2022 TSH 1.277 uIU/mL Normal 0.358-3.74 0 [facility] Comment on above: Performed By: #### C MP, TSH, T4 #### [facility] [address] [place], [place] [address] Dr. Yvette Ohara MR Brain WO and W contrast I Von 11-16-2022 IMPRESSION: Low-lying cerebellar tonsils with slight crowding at the foramen magnum. Age-appropriate unremarkable remaining brain without acute findings or abnormal enhancement. CSF flow study, as detailed. [facility]: P[facility] Transcribe Date/Time: Nov 16 2022 9:19A Dictated by : ALIYA CROCKER MD This examination was interpreted and the report reviewed and electronically signed by: ALIYA CROCKER MD on Nov 16 2022 9:23AM [facility] DIVISION OF RADIOLOGY * * *Final Report* * * DATE OF EXAM: Nov 16 2022 8:55AM [facility] 0295 - MRI BRAIN WO/W IVCON / [...] tissues are unremarkable. DIVISION OF RADIOLOGY Provider, [facility] - 11/16/2022 * * *Final Report* * [...] abnormal enhancement. CSF flow study, as detailed. [facility]: PSCTania Transcribe Date/Time: Nov 16 2022 9:19A Dictated by : ALIYA CROCKER MD This examination was interpreted and the report reviewed and electronically signed by: ALIYA CROCKER MD on Nov 16 2022 9:23AM EST [facility] [place] [facility] Radiology Study observation (narrative) [facility] MR Brain WO and W contrast I VOrdered By: [facility]cf Provider on 11-16-20[address] [facility] [place] [facility] [address] Abdomen/Pelvis w/o Contra ston 10-31-2022 CT [...] by Mayo Jose on 10/31/2022 1542 Normal [facility] Specialist AMYLASEon 10-21-2022 Amylase [Catalytic activity/Vol] 32 U/L Normal 25-115 [facility] Comment on above: Performed By: #### C MP, JESSICA #### [facility] [address] [place] [address] Dr. Yvette Ohara CBC AUTO DIFFon 10-21-2022 BASO # 0.0 103/ul Normal 0.0-0.1 [facility] Comment on above: Performed By: #### C BC #### [facility] [address] [place] [address] Dr. Yvette Ohara Basophils/100 WBC (Bld) 0.4 % Normal 0.2-2.0 [facility] Comment on above: Performed By: #### C BC #### [facility] [address] [place] [address] Dr. Yvette Ohara EO # 0.0 103/ul Normal 0.0-0.7 [facility] Comment on above: Performed By: #### C BC #### [facility] [address] [place] [address] Dr. Yvette Ohara Eosinophils/100 WBC (Bld) 0.4 % Critically low 0.9-7.0 [facility] Comment on above: Performed By: #### C BC #### [facility] [address] [place] [address] Dr. Yvette Ohara Erythrocyte distribution width (RBC) [Ratio] 12.1 % Normal 11.0-15.0 [facility] Comment on above: Performed By: #### C BC #### [facility] [address] [place] [address] Dr. Yvette Ohara Hematocrit (Bld) [Volume fraction] 50.0 % Critically high 36.0-48.0 [facility] Comment on above: Performed By: #### C BC #### [facility] [address] [place] [address] Dr. Yvette Ohara Hemoglobin (Bld) [Mass/Vol] 15.1 g/dL Normal 12.0-16.0 [facility] Comment on above: Performed By: #### C BC #### [facility] [address] [place] [address] Dr. Yvette Ohara IG # 0.02 10e3/ul Normal 0.00-0.03 [facility] Comment on above: Performed By: #### C BC #### [facility] [address] [place] [address] Dr. Yvette Ohara IG % 0.3 % Normal 0.0-0.5 [facility] Comment on above: Performed By: #### C BC #### [facility] [address] [place] [address] Dr. Yvette Ohara LYMPH # 2.1 103/ul Normal 1.2-3.8 [facility] Comment on above: Performed By: #### C BC #### [facility] [address] [place] [address] Dr. Yvette Ohara Lymphocytes/100 WBC (Bld) 28.7 % Normal 20.5-60.0 [facility] Comment on above: Performed By: #### C BC #### [facility] [address] [place] [address] Dr. Yvette Ohara MANUAL DIFF REQ NO Normal [facility] [place] [facility] Comment on above: Performed By: #### C BC #### [facility] [address] [place] [address] Dr. Yvette Ohara MCH (RBC) [Entitic mass] 29.4 pg Normal 26.7-34.0 [facility] Comment on above: Performed By: #### C BC #### [facility] [address] [place] [address] Dr. Yvette Ohara MCHC (RBC) [Mass/Vol] 30.2 g/dL Normal 29.9-35.2 [facility] Comment on above: Performed By: #### C BC #### [facility] [address] [place] [address] Dr. Yvette Ohara MCV (RBC) [Entitic vol] 97.5 fL Normal 81.0-99.0 [facility] Comment on above: Performed By: #### C BC #### [facility] [address] [place] [address] Dr. Yvette Ohara MONO # 0.6 103/ul Normal 0.3-0.8 [facility] Comment on above: Performed By: #### C BC #### [facility] [address] [place] [address] Dr. Yvette Ohara Monocytes/100 WBC (Bld) 7.8 % Normal 1.7-12.0 [facility] Comment on above: Performed By: #### C BC #### [facility] [address] [place] [address] Dr. Yvette Ohara NEUT # 4.5 103/ul Normal 1.4-6.5 [facility] Comment on above: Performed By: #### C BC #### [facility] [address] [place] [address] Dr. Yvette Ohara Neutrophils/100 WBC (Bld) 62.4 % Normal 43.0-75.0 [facility] Comment on above: Performed By: #### C BC #### [facility] [address] [place] [address] Dr. Yvette Ohara Platelet mean volume (Bld) [Entitic vol] 10.3 fL Normal 9.5-13.5 [facility] Comment on above: Performed By: #### C BC #### [facility] [address] [place] [address] Dr. Yvette Ohara PLT 242 103/ul Normal 150-450 [facility] Comment on above: Performed By: #### C BC #### [facility] [address] [place] [address] Dr. Yvette Ohara RBC 5.13 106/ul Normal 4.20-5.40 [facility] Comment on above: Performed By: #### C BC #### [facility] [address] [place] [address] Dr. Yvette Ohara WBC 7.2 103/ul Normal 4.0-11.0 [facility] Comment on above: Performed By: #### C BC #### [facility] [address] [place] [address] Dr. Yvette Ohara PROF 14(COMP METB)on 023 Albumin [Mass/Vol] 4.1 g/dL Normal 3.4-5.0 [facility] Comment on above: Performed By: #### C MP, JESSICA #### [facility] [address] [place] [address] Dr. Yvette Ohara Albumin/Globulin [Mass ratio] 1.3 {ratio} Normal [facility] Comment on above: Performed By: #### C MP, JESSICA #### [facility] [address] [place] [address] Dr. Yvette Ohara ALP [Catalytic activity/Vol] 117 U/L Critically high 46-116 [facility] Comment on above: Performed By: #### C MP, JESSICA #### [facility] [address] [place] [address] Dr. Yvette Ohara ALT [Catalytic activity/Vol] 58 U/L Normal 14-59 [facility] Comment on above: Performed By: #### C MP, JESSICA #### [facility] [address] [place] [address] Dr. Yvette Ohara Anion gap [Moles/Vol] 14.6 mmol/L Normal [facility] Comment on above: Performed By: #### C JOSEY, JESSICA #### [facility] [address] [place] [address] Dr. Yvette Ohara AST [Catalytic activity/Vol] 27 U/L Normal 15-37 [facility] Comment on above: Performed By: #### C JOSEY, JESSICA #### [facility] [address] [place] [address] Dr. Yvette Ohara Bilirubin [Mass/Vol] 1.4 mg/dL Critically high 0.2-1.0 [facility] Comment on above: Performed By: #### C JOSEY, JESSICA #### [facility] [address] [place] [address] Dr. Yvette Ohara Calcium [Mass/Vol] 9.1 mg/dL Normal 8.5-10.1 [facility] Comment on above: Performed By: #### C MP, JESSICA #### [facility] [address] [place] [address] Dr. Yvette Ohara Chloride [Moles/Vol] 104 mmol/L Normal 98-107 [facility] Comment on above: Performed By: #### C JOSEY, JESSICA #### [facility] [address] [address] [address] Yvette Ohara CO2 [Moles/Vol] 26.0 mmol/L Normal 21.0-32.0 [facility] Comment on above: Performed By: #### C MP, JESSICA #### [facility] [address] [place] [address] Dr. Yvette Ohara Creatinine [Mass/Vol] 0.92 mg/dL Normal 0.55-1.02 [facility] Comment on above: Performed By: #### C MP, JESSICA #### [facility] [address] [place] [address] Dr. Yvette Ohara EGFR-AF CHILEAN >60 Normal >=60 [facility] Comment on above: Performed By: #### C MP, JESSICA #### [facility] [address] [place] [address] Dr. Yvette Ohara EGFR-NON AF CHILEAN >60 Normal >=60 [facility] Comment on above: Performed By: #### C JOSEY, JESSICA #### [facility] [address] [place] [address] Dr. Yvette Ohara Globulin (S) [Mass/Vol] 3.1 g/dL Normal [facility] Comment on above: Performed By: #### C MP, JESSICA #### [facility] [address] [place] [address] Dr. Yvette Ohara Glucose [Mass/Vol] 94 mg/dL Normal 74-106 [facility] Comment on above: Performed By: #### C JOSEY, JESSICA #### [facility] [address] [place] [address] Dr. Yvette Ohara Potassium [Moles/Vol] 3.6 mmol/L Normal 3.5-5.1 [facility] Comment on above: Performed By: #### C MP, JESSICA #### [facility] [address] [place] [address] Dr. Yvette Ohara Protein [Mass/Vol] 7.2 g/dL Normal 6.4-8.2 [facility] Comment on above: Performed By: #### C MP, JESSICA #### [facility] [address] [place] [address] Dr. Yvette Ohara Sodium [Moles/Vol] 141 mmol/L Normal 136-145 [facility] Comment on above: Performed By: #### C JESSICA DOWLING #### [facility] [address] [address] [address] Yvette Ohara Urea nitrogen [Mass/Vol] 13.0 mg/dL Normal 7.0-18.0 [facility] Comment on above: Performed By: #### C JOSEY, JESSICA #### [facility] [address] [address] [address] Yvette Ohara Urea nitrogen/Creatinine [Mass ratio] 14.1 mg/mg Normal [facility] Comment on above: Performed By: #### C JOSEY, JESSICA #### [facility] [address] [address] [address] 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 [...] MRI: No Colonoscopy: Yes diagnostic, Date in [facility]: 07/2015; results - negative RISK FACTORS [...] repeated afte (more content not included)... Normal [facility] T4 Free SerPl-mCncon 023 Free T4 [Mass/Vol] 0.8 ng/dL Low 0.9-1.7 [facility] Comment on above: Order Comment: Speci men Type: BLOOD SPECIMEN Ordering Facility: [facility] Address: [address] [place] [address] Performed By: #### 3 024-7 #### [facility] CLIA [id number] [address] [place] [address] [place] TSH SerPl-aCncon 10-13-2022 TSH Qn 2.150 m[IU]/L Normal 0.510-4.30 0 [facility] Comment on above: Order Comment: Speci men Type: BLOOD SPECIMEN Ordering Facility: [facility] Address: [place] [address] Result Comment: If t he patient is , TSH reference range varies by gestational period: First Trimester (weeks 9-12): 0.180-2.990 mIU/L Second Trimester: 0.110-3.980 mIU/L Third Trimester: 0.480-4.710 mIU/L Ángel Cervantes et al. A Practical Approach for the Verifications and Determination of Site- and Trimester-Specific Reference Intervals for Thyroid Function tests in . Thyroid, 2019:29:3:412-420. Prem Ledesma, et al. 2017 Guidelines of the [place] Thyroid Association for the Diagnosis and Management of Thyroid Disease during and the . Thyroid, 2017:27:3:315-389. Reference ranges were not locally established for this patient's age group. The normal values are based on the following source: Marlin WJosh V. Reference Ranges for Adults and Children: Pre-analytical Considerations. [facility] Performed By: #### 3 016-3 #### [facility] CLIA [id number] [place] [address] [place] SARS-CoV-2 (COVID-19) RNA NA A+probe Ql (Resp)on 06-24-2022 SARS-CoV-2 (COVID-19) RNA JANET+probe Ql (Unsp spec) Negative [facility] Other MR Brain WO and W contrast [...] including diffusion and gradient echo images. 2-D agyi-kz-piazes MRV and postcontrast MRV of the brain. [...] enhancement indicating patency. DIVISION OF RADIOLOGY Provider, [facility] - 12/29/2021 * * *Final Report* * * DATE OF EXAM: Dec 29 2021 12:13PM [facility] 0295 - MRI BRAIN WO/W IVCON / PROCEDURE REASON: Thunderclap headache * * * * Physician Interpretation * * * * EXAMINATION: MRI BRAIN WO/W IVCON, MRV BRAIN WO/W IVCON HISTORY: Thunderclap headache. Headache after Covid infection. TECHNIQUE: Routine brain MRI protocol without and with contrast including diffusion and gradient echo images. 2-D trft-ub-gaxntb MRV and postcontrast MRV of the brain. [...] No evidence of dural venous sinus thrombosis. [facility]: FANTA Transcribe Date/Time: Dec 29 2021 12:34P Dictated by : MILTON WAGNER MD This examination was interpreted and the report reviewed and electronically signed by: MILTON WAGNER MD on Dec 29 2021 12:40PM [facility] MRA Head veins WO and W [...] including diffusion and gradient echo images. 2-D wvvj-kn-tlxull MRV and postcontrast MRV of the brain. [...] enhancement indicating patency. DIVISION OF RADIOLOGY Provider, [facility] - 12/29/2021 * * *Final Report* * * DATE OF EXAM: Dec 29 2021 12:13PM [facility] 0336 - MRV BRAIN WO/W IVCON / PROCEDURE REASON: multiple diagnoses * * * * Physician Interpretation * * * * EXAMINATION: MRI BRAIN WO/W IVCON, MRV BRAIN WO/W IVCON HISTORY: Thunderclap headache. Headache after Covid infection. TECHNIQUE: Routine brain MRI protocol without and with contrast including diffusion and gradient echo images. 2-D rysa-zm-sclagv MRV and postcontrast MRV of the brain. [...] No evidence of dural venous sinus thrombosis. [facility]: FANTA Transcribe Date/Time: Dec 29 2021 12:34P Dictated by : MILTON WAGNER MD This examination was interpreted and the report reviewed and electronically signed by: MILTON WAGNER MD on Dec 29 2021 12:40PM [facility] No Panel Informationon 12-29 IMPRESSION: MRI BRAIN: No evidence of an acute intracranial process. Low-lying cerebellar tonsils. MRV BRAIN: No evidence of dural venous sinus thrombosis. [facility]: FANTA Transcribe Date/Time: Dec 29 2021 12:34P Dictated by : MILTON WAGNER MD This examination was interpreted and the report reviewed and electronically signed by: MILTON WAGNER MD on Dec 29 2021 12:40PM [facility] DIVISION OF RADIOLOGY Radiology Study observation (narrative) [facility] No Panel InformationOrdered By: Ccf Provider on 12-29-2021 [facility] ANKLE RIGHT 3 Son 06-13-20 17 ANKLE RIGHT 3 [facility] [address] [place] [address] ==Patient Name: CHARIS ALLEN : 2000Sex: FAge: Race: WhiteMRN: [id number]. Location: EMERPatient Status: EVisit #: [id number] Date: 06/13/2017 5:40:00 PMCompleted Date: 06/13/2017 05:54 PMRequesting Provider: SREEKANTH JOHNSON Attending Provider: SREEKANTH JOHNSON Report Copy To: Signs & Symptoms: Pain ( specify Location)History: Patient history not availableComments: R/O FXExam: ANKLE RIGHT 3 VWSAccession #: [id number] =========ANKLE RIGHT 3 S 06/13/2017 5:54 PM EDT [...] Electronically signed by:Faye Ramires M.D.. Transcribed by: [email or web address], User Resident: Electronically Signed by: FAYE RAMIRES @ 06/13/2017 06:44 PM Normal [facility] Comment on above: Order Comment: R/O F X Vital Signs Date Time Vital Sign Value Performing Clinician Facility 06-13-2025 10:39-0400 Body height 172.7 cm Anil Thapa DO Work Phone: [facility] 06-13-2025 10:39-0400 Body mass index (BMI) [Ratio] 25.7 kg/m2 Anil Thapa DO Work Phone: [facility] 06-13-2025 10:39-0400 Body temperature 97.81 [degF] Anil Thapa DO Work Phone: [facility] 06-13-2025 10:39-0400 Body weight 76.66 kg Anil Thapa DO Work Phone: [facility] 06-13-2025 10:39-0400 Diastolic blood pressure 62 mm[Hg] Anil Thapa DO Work Phone: [facility] 06-13-2025 10:39-0400 Heart rate 98 /min Anil Thapa DO Work Phone: [facility] 06-13-2025 10:39-0400 SaO2% (BldA) [Mass fraction] 99 % Anil Thapa DO Work Phone: [facility] 06-13-2025 10:39-0400 Systolic blood pressure 108 mm[Hg] Anil Thapa DO Work Phone: [facility] 06-10-2025 08:58-0400 Body height 172.7 cm Jona Vann MD Work Phone: [facility] 06-10-2025 08:58-0400 Body mass index (BMI) [Ratio] 25.39 kg/m2 Jona Vann MD Work Phone: [facility] 06-10-2025 08:58-0400 Body weight 75.75 kg Jona Vann MD Work Phone: [facility] 06-10-2025 08:58-0400 Diastolic blood pressure 74 mm[Hg] Jona Vann MD Work Phone: [facility] 06-10-2025 08:58-0400 Systolic blood pressure 120 mm[Hg] Jona Vann MD Work Phone: [facility] 02-18-2025 21:50-0400 Diastolic blood pressure 78 mm[Hg] Katie Thapa DO Work Phone: [facility] 02-18-2025 21:50-0400 Heart rate 84 /min Katie Thapa DO Work Phone: [facility] 02-18-2025 21:50-0400 Respiratory rate 20 /min Katie Thapa DO Work Phone: [facility] 02-18-2025 21:50-0400 SaO2% (BldA) [Mass fraction] 98 % Katie Thapa DO Work Phone: [facility] 02-18-2025 21:50-0400 Systolic blood pressure 120 mm[Hg] Katie Thapa DO Work Phone: [facility] 02-18-2025 19:45-0400 Body temperature 98.4 [degF] Katie Thapa DO Work Phone: [facility] 02-18-2025 15:20-0400 Body height 167.64 cm Katie Thapa DO Work Phone: [facility] 02-18-2025 15:20-0400 Body weight 70.8 kg Katie hTapa DO Work Phone: [facility] 01-11-2025 19:22-0400 Heart rate 72 /min Milton Garcia MD [facility] [employer] 01-11-2025 19:22-0400 Respiratory rate 18 /min Milton Garcia MD Work Phone[facility] [employer] 01-11-2025 19:22-0400 SaO2% (BldA) [Mass fraction] 100 % Milton Garcia MD [facility] Phone[facility] 01-11-2025 19:20-0400 Diastolic blood pressure 73 mm[Hg] Milton Garcia MD Work Phone: [employer] 01-11-2025 19:20-0400 Systolic blood pressure 108 mm[Hg] Milton Garcia MD Work Phone: [facility] [employer] 01-11-2025 18:30-0400 Body height 170.2 cm Milton Garcia MD Work Phone: [facility] [employer] 01-11-2025 18:30-0400 Body mass index (BMI) [Ratio] 24.53 kg/m2 Milton Garcia MD Work Phone: [facility] [employer] 01-11-2025 18:30-0400 Body temperature 98.01 [degF] Milton Garcia MD Work Phone: [facility] [employer] 01-11-2025 18:30-0400 Body weight 71.03 kg Milton Garcia MD Work Phone: [facility] [employer] 11-30-2024 23:39-0500 Body height 170.2 cm Rohit Rob MD Work Phone: [employer] 11-30-2024 23:39-0500 Body mass index (BMI) [Ratio] 23.63 kg/m2 Rohit Rob MD Work Phone: [employer] 11-30-2024 23:39-0500 Body temperature 97.59 [degF] Rohit Rob MD Work Phone: [employer] 11-30-2024 23:39-0500 Body weight 68.45 kg Rohit Rob MD Work Phone: [employer] 11-30-2024 23:39-0500 Diastolic blood pressure 75 mm[Hg] Rohit Rob MD Work Phone: [employer] 11-30-2024 23:39-0500 Heart rate 97 /min Rohit Rob MD Work Phone: [employer] 11-30-2024 23:39-0500 Respiratory rate 16 /min Rohit Rob MD Work Phone: [employer] 11-30-2024 23:39-0500 SaO2% (BldA) [Mass fraction] 100 % Rohit Rob MD Work Phone: [employer] 11-30-2024 23:39-0500 Systolic blood pressure 115 mm[Hg] Rohit Rob MD Work Phone: [employer] 11-16-2024 02:37-0500 Diastolic blood pressure 71 mm[Hg] Akiko Acosta MD Work Phone: [employer] 11-16-2024 02:37-0500 Heart rate 70 /min Akiko Acosta MD Work Phone: [employer] 11-16-2024 02:37-0500 Respiratory rate 13 /min Akiko Acosta MD Work Phone: [employer] 11-16-2024 02:37-0500 SaO2% (BldA) [Mass fraction] 100 % Akiko Acosta MD Work Phone: [employer] 11-16-2024 02:37-0500 Systolic blood pressure 106 mm[Hg] Akiko Acosta MD Work Phone: [employer] 11-16-2024 00:53-0500 Body height 167.6 cm Akiko Acosta MD Work Phone: [employer] 11-16-2024 00:53-0500 Body mass index (BMI) [Ratio] 24.28 kg/m2 Akiko Acosta MD Work Phone: [employer] 11-16-2024 00:53-0500 Body weight 68.22 kg Akiko Acosta MD Work Phone: [employer] 11-16-2024 00:51-0500 Body temperature 97.59 [degF] Akiko Acosta MD Work Phone: [facility] 11-04-2024 13:35-0500 Body height 170.2 cm Osbaldo-Catie Vu DO Work Phone: [facility] 11-04-2024 13:35-0500 Body mass index (BMI) [Ratio] 23.56 kg/m2 Osbaldo-Catie Vu DO Work Phone: [facility] 11-04-2024 13:35-0500 Body temperature 98.1 [degF] Osbaldo-Catie Vu DO Work Phone: [facility] 11-04-2024 13:35-0500 Body weight 68.22 kg Osbaldo-Catie Vu DO Work Phone: [facility] 10-23-2024 15:48-0500 Body mass index (BMI) [Ratio] 24.28 kg/m2 Jona Vann MD Work Phone: [facility] 10-23-2024 15:48-0500 Body weight 70.31 kg Jona Vann MD Work Phone: [facility] 10-23-2024 15:48-0500 Diastolic blood pressure 64 mm[Hg] Jona Vann MD Work Phone: [facility] 10-23-2024 15:48-0500 Systolic blood pressure 100 mm[Hg] Jona Vann MD Work Phone: [facility] 10-21-2024 13:50-0500 Body height 170.2 cm Anil Thapa DO Work Phone: [facility] 10-21-2024 13:50-0500 Body mass index (BMI) [Ratio] 23.65 kg/m2 Anil Thapa DO Work Phone: [facility] 10-21-2024 13:50-0500 Body temperature 97.11 [degF] Anil Thapa DO Work Phone: [facility] 01-13-2025 13:50-0500 Body weight 68.49 kg Anil Thapa DO Work Phone: [facility] 10-21-2024 13:50-0500 Diastolic blood pressure 72 mm[Hg] Anil Thapa DO Work Phone: [facility] 10-21-2024 13:50-0500 Heart rate 75 /min Anil Thapa DO Work Phone: [facility] 10-21-2024 13:50-0500 SaO2% (BldA) [Mass fraction] 99 % Anil Thapa DO Work Phone: [facility] 10-21-2024 13:50-0500 Systolic blood pressure 108 mm[Hg] Anil Thapa DO Work Phone: [facility] 09-11-2024 10:34-0500 Body height 167.6 cm Osbaldo-Catie Vu DO Work Phone: [facility] 09-11-2024 10:34-0500 Body mass index (BMI) [Ratio] 23.38 kg/m2 Osbaldo-Catie Vu DO Work Phone: [facility] 09-11-2024 10:34-0500 Body temperature 97.59 [degF] Osbaldo-Catie Vu DO Work Phone: [facility] [employer] [facility] 09-11-2024 10:34-0500 Body weight 65.68 kg Osbaldo-Catie Vu DO Work Phone: [facility] 09-10-2024 16:03-0500 Body height 167.6 cm Mich Verde MD Work Phone: [facility] 09-10-2024 16:03-0500 Body mass index (BMI) [Ratio] 24.37 kg/m2 Mich Verde MD Work Phone: [facility] 09-10-2024 16:03-0500 Body weight 68.49 kg Mich Verde MD Work Phone: [facility] 12-03-2024 16:03-0500 Respiratory rate 18 /min Mich Verde MD Work Phone: [facility] 08-20-2024 14:49-0500 Body height 167.6 cm [employer] [facility] 08-20-2024 14:49-0500 Body mass index (BMI) [Ratio] 22.11 kg/m2 [employer] [facility] 08-20-2024 14:49-0500 Body weight 62.14 kg [employer] [facility] 08-13-2024 14:14-0500 Body mass index (BMI) [Ratio] 23.81 kg/m2 Jona Vann MD Work Phone: [facility] 08-13-2024 14:14-0500 Body weight 68.95 kg Jona Vann MD Work Phone: [facility] 08-13-2024 14:14-0500 Diastolic blood pressure 58 mm[Hg] Jona Vann MD Work Phone: [facility] 08-13-2024 14:14-0500 Systolic blood pressure 100 mm[Hg] Jona Vann MD Work Phone: [facility] 08-07-2024 10:10-0400 Body height 167.6 cm Osbaldo-Catie Vu DO Work Phone: [facility] 08-07-2024 10:10-0400 Body mass index (BMI) [Ratio] 24.82 kg/m2 Osbaldo-Catie Vu DO Work Phone: [facility] 08-07-2024 10:10-0400 Body temperature 98.2 [degF] Osbaldo-Catie Vu DO Work Phone: [facility] 08-07-2024 10:10-0400 Body weight 69.76 kg Osbaldo-Catie Vu DO Work Phone: [facility] 07-17-2024 14:48-0400 Body height 170.2 cm Harmony MCDANIEL Work Phone: [facility] 07-17-2024 14:48-0400 Body mass index (BMI) [Ratio] 24.18 kg/m2 Harmony German PA Work Phone: [facility] 07-17-2024 14:48-0400 Body temperature 97.7 [degF] Harmony German PA Work Phone: [facility] 07-17-2024 14:48-0400 Body weight 70.03 kg Harmony German PA Work Phone: [facility] 07-17-2024 14:48-0400 Diastolic blood pressure 68 mm[Hg] Harmony German PA Work Phone: [facility] 07-17-2024 14:48-0400 Heart rate 70 /min Harmony German PA Work Phone: [facility] 07-17-2024 14:48-0400 SaO2% (BldA) [Mass fraction] 99 % Harmony German PA Work Phone: [facility] 07-17-2024 14:48-0400 Systolic blood pressure 116 mm[Hg] Harmony German PA Work Phone: [facility] 07-15-2024 15:38-0400 Body height 170.2 cm Mich Verde MD Work Phone: [facility] [employer] [facility] 07-15-2024 15:38-0400 Body mass index (BMI) [Ratio] 23.65 kg/m2 Mich Verde MD Work Phone: [facility] [employer] [employer] [facility] 07-15-2024 15:38-0400 Body weight 68.49 kg Mich Verde MD Work Phone: [facility] 07-03-2024 10:56-0400 Body height 170.2 cm Tiesha Rai PA-C Work Phone: [facility] [employer] [facility] 07-03-2024 10:56-0400 Body mass index (BMI) [Ratio] 23.65 kg/m2 Tiesha Rai PA-C Work Phone: [facility] 07-03-2024 10:56-0400 Body weight 68.49 kg Tiesha Rai PA-C Work Phone: [facility] 06-28-2024 02:48-0400 Diastolic blood pressure 58 mm[Hg] DO Katie Thapa Work Phone: [facility] 06-28-2024 02:48-0400 Heart rate 85 /min DO Katie Thapa Work Phone: [facility] 06-28-2024 02:48-0400 Respiratory rate 18 /min DO Katie Thapa Work Phone: [facility] 06-28-2024 02:48-0400 SaO2% (BldA) [Mass fraction] 100 % DO Katie Thapa Work Phone: [facility] 06-28-2024 02:48-0400 Systolic blood pressure 98 mm[Hg] DO Katie Thapa Work Phone: [facility] 06-27-2024 22:17-0400 Body height 170.18 cm DO Katie Thapa Work Phone: [facility] 06-27-2024 22:17-0400 Body temperature 97.9 [degF] DO Katie Thapa Work Phone: [facility] 06-27-2024 22:17-0400 Body weight 69.75 kg DO Katie Thapa Work Phone: [facility] 05-21-2024 13:37-0400 Body height 170.2 cm [employer] [facility] 05-21-2024 13:37-0400 Body mass index (BMI) [Ratio] 24.31 kg/m2 [employer] [facility] [employer] [facility] 05-21-2024 13:37-0400 Body temperature 98.2 [degF] [facility] 05-21-2024 13:37-0400 Body weight 70.4 kg [employer] 4 [facility] [employer] [facility] 05-21-2024 13:37-0400 Diastolic blood pressure 67 mm[Hg] [facility] 05-21-2024 13:37-0400 Heart rate 83 /min [employer] 4 [facility] 05-21-2024 13:37-0400 Respiratory rate 18 /min [facility] 05-21-2024 13:37-0400 SaO2% (BldA) [Mass fraction] 100 % [employer] 4 [facility] 05-21-2024 13:37-0400 Systolic blood pressure 108 mm[Hg] [employer] 4 [facility] 03-18-2024 14:24-0400 Body height 170.2 cm Mich Verde MD Work Phone: [facility] 03-18-2024 14:24-0400 Body mass index (BMI) [Ratio] 24.12 kg/m2 Mich Verde MD Work Phone: [facility] 03-18-2024 14:24-0400 Body temperature 98.4 [degF] Mich Verde MD Work Phone: [facility] 03-18-2024 14:24-0400 Body weight 69.85 kg Mich Verde MD Work Phone: [facility] 03-06-2024 16:25-0400 Body height 167.6 cm Tiesha Fredi PA-C Work Phone: [facility] 03-06-2024 16:25-0400 Body mass index (BMI) [Ratio] 24.86 kg/m2 Tiesha Fredi PA-C Work Phone: [facility] 03-06-2024 16:25-0400 Body temperature 98.6 [degF] Tiesha Batesland PA-C Work Phone: [facility] 03-06-2024 16:25-0400 Body weight 69.85 kg Tiesha Fredi PA-C Work Phone: [facility] 12-19-2023 12:47-0400 Body height 167.6 cm Tiesha Batesland PA-C Work Phone: [employer] 12-19-2023 12:47-0400 Body mass index (BMI) [Ratio] 26.21 kg/m2 Tiesha Rai PA-C Work Phone: [employer] 12-19-2023 12:47-0400 Body temperature 98.4 [degF] Tiesha Rai PA-C Work Phone: [employer] 12-19-2023 12:47-0400 Body weight 73.66 kg Tiesha Rai PA-C Work Phone: [employer] 11-08-2023 07:45-0500 Body height 167.64 cm Pérez Barcenas Other [employer] Other 11-08-2023 07:45-0500 Body mass index (BMI) [Ratio] 28.57 kg/m2 [employer] Other [employer] Other 11-08-2023 07:45-0500 Body weight 80.29 kg P[employer]rez [employer] Other [employer] Other 11-08-2023 07:45-0500 Diastolic blood pressure 65 mm[Hg] [employer] Other [employer] Other 11-08-2023 07:45-0500 Respiratory rate 18 /min [employer] Other [employer] Other 11-08-2023 07:45-0500 SaO2% (BldA) [Mass fraction] 98 % [employer] Other [employer] Other 11-08-2023 07:45-0500 Systolic blood pressure 102 mm[Hg] P[employer]rez [employer] Other [employer] Other 08-17-2023 21:29-0500 Body temperature 98.1 [degF] DO Katie Thapa Work Phone: [facility] 08-17-2023 21:29-0500 Diastolic blood pressure 72 mm[Hg] DO Katie Thapa Work Phone: [facility] 08-17-2023 21:29-0500 Heart rate 83 /min DO Katie Thapa Work Phone: [facility] 08-17-2023 21:29-0500 Respiratory rate 16 /min DO Katie Thapa Work Phone: [phone] [place] [address] 08-17-2023 21:29-0500 SaO2% (BldA) [Mass fraction] 98 % DO Katie Thapa Work Phone: 4(886)[phone] [place] [address] 08-17-2023 21:29-0500 Systolic blood pressure 110 mm[Hg] DO Katie Thapa Work Phone: 0(336)[phone] [address] 08-17-2023 18:23-0500 Body height 167.64 cm DO Katie Thapa Work Phone: 6(254)[phone] [address] 08-17-2023 18:23-0500 Body mass index (BMI) [Ratio] 29 kg/m2 DO Katie Thapa Work Phone: 0(643)[phone] [place] [address] 08-17-2023 18:23-0500 Body weight 81.64 kg DO Katie Thapa Work Phone: [facility] 08-17-2023 18:18-0500 Inhaled oxygen flow rate 10 L/min DO Katie Thapa Work Phone: [facility] 08-03-2023 18:45-0400 Diastolic blood pressure 75 mm[Hg] DO Katie Thapa Work Phone: [facility] 08-03-2023 18:45-0400 Heart rate 98 /min DO Katie Thapa Work Phone: [facility] 08-03-2023 18:45-0400 Respiratory rate 16 /min DO Katie Thapa Work Phone: [facility] 08-03-2023 18:45-0400 SaO2% (BldA) [Mass fraction] 98 % DO Katie Thapa Work Phone: [facility] 08-03-2023 18:45-0400 Systolic blood pressure 108 mm[Hg] DO Katie Thapa Work Phone: [facility] 08-03-2023 17:28-0400 Inhaled oxygen flow rate 6 L/min DO Katie Thapa Work Phone: [facility] 08-03-2023 17:13-0400 Body temperature 97 [degF] DO Katie Thapa Work Phone: [facility] 08-03-2023 16:26-0400 Body height 167.64 cm DO Katie Thapa Work Phone: [facility] 08-03-2023 16:26-0400 Body mass index (BMI) [Ratio] 29 kg/m2 DO Katie Thapa Work Phone: [facility] 08-03-2023 16:26-0400 Body weight 81.64 kg DO Katie Thapa Work Phone: [facility] 06-09-2023 15:15-0400 Body height 170.18 cm Arti Barahona Other [employer] Other 06-09-2023 15:15-0400 Body mass index (BMI) [Ratio] 29.97 kg/m2 Arti Barahona Other [employer] Other 06-09-2023 15:15-0400 Body temperature 98.7 [degF] Arti Barahona Other [employer] Other 06-09-2023 15:15-0400 Body weight 86.82 kg Arti Barahona Other [employer] Other 06-09-2023 15:15-0400 Diastolic blood pressure 72 mm[Hg] Arti Barahona Other [employer] Other 06-09-2023 15:15-0400 Respiratory rate 18 /min Arti Barahona Other [employer] Other 06-09-2023 15:15-0400 SaO2% (BldA) [Mass fraction] 99 % Arti Barahona Other [employer] Other 06-09-2023 15:15-0400 Systolic blood pressure 117 mm[Hg] Arti Barahona Other [employer] Other 06-01-2023 09:06-0400 Body height 167.6 cm Mara Alcaraz MD Work Phone: [facility] 06-01-2023 09:06-0400 Body weight 88.81 kg Mara Alcaraz MD Work Phone: [facility] 04-04-2023 15:33-0400 Body weight 86.[address] Work Phone: [facility] 11-14-2022 11:32-0500 Body height 167.6 cm Sreekanth Samples Work Phone: [facility] 11-14-2022 11:32-0500 Body weight 90.72 kg Sreekanth Samples Work Phone: [facility] 11-14-2022 11:32-0500 Diastolic blood pressure 67 mm[Hg] Sreekanth Samples Work Phone: [facility] 11-14-2022 11:32-0500 Heart rate 85 /min Sreekanth Sood MD Work Phone: [facility] 11-14-2022 11:32-0500 SaO2% (BldA) [Mass fraction] 100 % Sreekanth Indigo SANON Work Phone: [facility] 11-14-2022 11:32-0500 Systolic blood pressure 112 mm[Hg] Sreekanth Sood MD Work Phone: [facility] 08-04-2022 13:03-0400 Heart rate 92 /min Lul Mcbride MD Work Phone: [facility] 08-04-2022 13:03-0400 SaO2% (BldA) [Mass fraction] 100 % Lul Mcbride MD Work Phone: [facility] 06-24-2022 18:35-0400 Body height 170.18 cm Zully Mendoza Other [employer] Other 06-24-2022 18:35-0400 Body mass index (BMI) [Ratio] 29.75 kg/m2 Zully Mendoza Other [employer] Other 06-24-2022 18:35-0400 Body temperature 99.3 [degF] Zully Mendoza Other [employer] Other 06-24-2022 18:35-0400 Body weight 86.18 kg Zully Mendoza Other [employer] Other 06-24-2022 18:35-0400 Respiratory rate 18 /min Zully Mendoza Other [employer] Other 06-24-2022 18:35-0400 SaO2% (BldA) [Mass fraction] 97 % Zully Mendoza Other [employer] Other 12-30-2021 08:11-0400 Diastolic blood pressure 71 mm[Hg] Serekanth Sood MD Work Phone: [facility] 12-30-2021 08:11-0400 Heart rate 76 /min Sreekanth Sood MD Work Phone: [facility] 12-30-2021 08: Systolic blood pressure 117 mm[Hg] Sreekanth Sood MD Work Phone: [facility] NEGATED: Highlighted row BMI (Body Mass Index) Margarita Apple [facility] NEGATED: Highlighted row Body Temperature Margarita Apple [facility] NEGATED: Highlighted row Body weight Margarita Apple [facility] NEGATED: Highlighted row BP Diastolic Margarita Apple [facility] NEGATED: Highlighted row BP Systolic Margarita Apple [facility] NEGATED: Highlighted row Height Margarita Apple [facility] NEGATED: Highlighted row Pulse (Heart Rate) Margarita Apple [facility] NEGATED: Highlighted row Pulse Oximetry Margarita Apple [facility] NEGATED: Highlighted row Respiratory Rate Margarita Apple [facility] Encounters Encounter Date Encounter Type Care Provider Facility Start: 07-05-2025 End: 07-05-2025 Clinisync Result Encounter Generic External Data Provider [facility] External Department Unsolicited Start: 07-05-2025 End: 07-05-2025 Clinisync Result Encounter Generic External Data Provider [facility] External Department Unsolicited Start: 07-04-2025 End: 07-04-2025 Telephone encounter Doris Badillo [facility] Start: 07-03-2025 End: 07-03-2025 Clinisync Result Encounter Generic External Data Provider [facility] External Department Unsolicited Start: 07-03-2025 End: 07-03-2025 Clinisync Result Encounter Generic External Data Provider [facility] External Department Unsolicited Start: 07-03-2025 End: 07-03-2025 Telephone encounter Otilia Moura Neurology, A Department of [facility] Start: 06-13-2025 End: 06-13-2025 [employer] flowspatricia Thapa DO Work Phone: [facility] 230 Start: 06-13-2025 End: 06-13-2025 [employer] flowspatricia Thapa DO Work Phone: [facility] 230 Start: 06-13-2025 End: 06-13-2025 Office outpatient visit 15 minutes Anil Thapa DO Work Phone: [facility] 230 Comment on above: Major depressive dis order, single episode, mild ; Acne vulgaris; Attention deficit hyperactivity disorder (ADHD), combined type Start: 06-13-2025 End: 06-13-2025 ambulatory ANIL THAPA Not Available Start: 06-11-2025 End: 06-13-2025 Orders Only Jona Vann MD Work Phone: [facility] Julius APONTE Comment on above: Urinary tract infect ion without hematuria, site unspecified (Primary Dx) Start: 06-10-2025 End: 06-16-2025 Orders Only Jona Vann MD Work Phone: [facility] External Department Unsolicited Start: 06-10-2025 End: 06-10-2025 Office outpatient visit 10 minutes [facility] Comment on above: Chiari malformation type [...] 04-17-2025 ambulatory Katie Thapa DO Work Phone: [facility] Work Phone: Start: 04-17-2025 End: 04-17-2025 Departed Referred Chris White MD -LAB [facility] Start: 03-30-2025 End: 03-30-2025 Refill Tala Reese George INSTALLATION COORDINATOR-CNM Work Phone: [facility]stetric[facility]Gynecology Comment on above: Miscarriage Start: 03-19-2025 End: 03-19-2025 Refill Mary Ann Levin MD Work Phone: Dermatology Comment on above: Refill Request Start: 02-27-2025 ambulatory MICH VERDE [facility] Start: 02-26-2025 End: 02-27-2025 ambulatory ANIL THAPA [facility] Start: 02-22-2025 End: 02-22-2025 [facility] Start: 02-22-2025 End: 02-22-2025 Subsequent hospital visit by physician Anil Thapa DO Work Phone: [facility] Start: 02-18-2025 End: 02-18-2025 Emergency department patient visit Katie Thapa DO Work Phone: [facility] Work Phone: Start: 02-15-2025 End: 02-17-2025 Refill Anil Thapa DO Work Phone: [facility] 230 Comment on above: Attention deficit hy peractivity disorder (ADHD), combined type (CMS/HCC) Start: 01-15-2025 End: 01-15-2025 Refill Gm Gomez LPN Work Phone: [facility] 230 Comment on above: Attention deficit hy peractivity disorder (ADHD), combined type (CMS/HCC) Start: 01-11-2025 End: 01-11-2025 Emergency department patient visit Milton Garcia MD Work Phone: [facility] Emergency Department Comment on above: Vertigo (Primary Dx) Start: 01-07-2025 End: 01-07-2025 Refill Mary Ann Levin MD Work Phone: Dermatology Comment on above: Refill Request Start: 01-07-2025 End: 01-08-2025 Refill Mary Ann Levin MD Work Phone: Dermatology Comment on above: Refill Request Start: 12-13-2024 End: 12-13-2024 Emergency department patient visit ANIL THAPA [facility] Start: 11-30-2024 End: 12-01-2024 Emergency department patient visit Rohit Rob MD Work Phone: [facility] Emergency Department Comment on above: Threatened miscarria ge in early (Primary Dx) Start: 11-29-2024 End: 11-29-2024 Clinisync Result Encounter Generic External Data Provider [facility] External Department Unsolicited Start: 11-29-2024 End: 11-29-2024 Clinisync Result Encounter Generic External Data Provider [facility] External Department Unsolicited Start: 11-22-2024 End: 11-22-2024 Telephone encounter Anil Thapa DO Work Phone: [facility] 230 Comment on above: Med Refill Start: 11-16-2024 End: 11-16-2024 Emergency department patient visit Akiko Acosta MD Work Phone: [facility] Emergency Department Comment on above: Acute gastroenteriti s (Primary Dx) Start: 11-04-2024 End: 11-04-2024 Patient encounter procedure [facility] DO Work Phone: [facility] - E[facility] Comment on above: Lesion of tongue (Pr imary Dx) Start: 11-04-2024 End: 11-04-2024 ambulatory [facility] Start: 10-28-2024 End: 10-29-2024 Orders Only Jona [...] flowsheet Anil Thapa DO Work Phone: [facility] 230 Start: 10-21-2024 End: 10-21-2024 Bamboo flowsheet Anil Thapa DO Work Phone: [facility] 230 Start: 10-21-2024 End: 10-21-2024 ambulatory ANIL THAPA Not Available Start: 10-21-2024 End: 10-21-2024 Office outpatient visit 15 minutes Anil Thapa DO Work Phone: [facility] 230 Comment on above: Attention deficit hy peractivity disorder (ADHD), combined type (CMS/HCC) Start: 09-18-2024 End: 09-18-2024 Refill Gm Gomez LPN Work Phone: [facility] 230 Comment on above: Attention deficit hy peractivity disorder (ADHD), combined type (CMS/HCC) Start: 09-12-2024 End: 09-12-2024 Refill Mary Ann Levin MD Work Phone: Dermatology Comment on above: Refill Request Start: 09-11-2024 End: 09-11-2024 ambulatory [facility] Start: 09-11-2024 End: 09-11-2024 Patient encounter [facility] Work Phone: [facility] Comment on above: Lesion of tongue (Pr imary Dx) Start: 09-10-2024 End: 09-10-2024 Office outpatient visit 15 minutes Mich Verde MD Work Phone: [facility] Ear[facility] N[facility] Th[facility]at Comment on above: Postop check (Primar y Dx) Start: 09-10-2024 Encounter for examination of ears and hearing without abnormal findings MICH VERDE [facility] Start: 09-10-2024 End: 09-10-2024 Clinical Support Ppbp Ent Audio 2 [facility] Comment on above: Hearing exam without abnormal findings (Primary Dx) Start: 09-10-2024 End: 09-10-2024 Patient encounter status Ppbp 2 [facility] Work Phone: Start: 09-04-2024 End: 09-11-2024 Telephone encounter Lata Otoole RN [facility] Start: 09-03-2024 End: 09-03-2024 Orders Only Osbaldo-Catie Vu DO [facility] Comment on above: Tongue swelling (Leslie sage Dx) Start: 08-29-2024 End: 08-29-2024 Telephone encounter Osbaldo-Catie Vu DO Work Phone: [facility] Start: 08-27-2024 End: 08-27-2024 Evaluation and management of inpatient CADEN [facility] Start: 08-27-2024 End: 08-27-2024 Evaluation and management of inpatient OSBALDO-CATIE VU [facility] Start: 08-20-2024 End: 08-20-2024 Evaluation and management of inpatient ANIL THAPA [facility] Start: 08-20-2024 End: 08-20-2024 Admission to [facility] Phone Call Provider 3 [facility] Start: 08-17-2024 End: 08-17-2024 Orders Only Jona Vann MD Work Phone: [facility] Comment on above: Vaginitis due to Tri chomonas (Primary Dx) Start: 08-16-2024 End: 08-16-2024 Refill Harmony German PA Work Phone: [facility] 230 Comment on above: Attention deficit hy peractivity disorder (ADHD), combined type ([facility]) Start: 08-13-2024 End: 08-13-2024 Patient encounter status Jona Vann MD Work Phone: [facility] Start: 08-13-2024 End: 08-13-2024 Periodic preventive med est patient 18-39 yrs Jona Vann MD Work Phone: [facility] Comment on above: Screening for malign ant neoplasm of cervix; Encounter for gynecological examination without abnormal finding; Anxiety, generalized (CMS/HCC); Vaginal discharge Start: 08-13-2024 End: 08-13-2024 ambulatory JONA VANN Not Available Start: 08-07-2024 End: 08-07-2024 Telephone encounter [facility] Start: 08-07-2024 End: 08-07-2024 ambulatory [facility] Start: 08-07-2024 End: 08-07-2024 Patient encounter procedure [facility] DO Work Phone: [facility] Comment on above: Chronic throat pain (Primary Dx); Odynophagia; Tongue lesion; Post-nasal drip; Allergic rhinitis, unspecified seasonality, unspecified trigger Start: 07-25-2024 End: 07-25-2024 ambulatory ÁNGELA DELGADO Facility:[facility] Start: 07-25-2024 End: 07-25-2024 Patient encounter procedure Ángela Delgado DPM Work Phone: Podiatry Comment on above: Onychomycosis (Prima ry Dx); Tinea pedis, unspecified laterality Start: 07-17-2024 End: 07-17-2024 ambulatory HARMONY GERMAN Not Available Start: 07-17-2024 End: 07-17-2024 Office outpatient visit 15 minutes Harmony MCDANIEL Work Phone: [facility] 230 Comment on above: Attention deficit hy peractivity disorder (ADHD), combined type (CMS/HCC) Start: 07-17-2024 End: 07-17-2024 Telephone encounter Doris Hernandez [facility] Start: 07-15-2024 End: 07-15-2024 Postop follow up visit related to original px Mich Verde MD Work Phone: [facility] Comment on above: Postop check (Primar y Dx) Start: 07-15-2024 End: 07-15-2024 ambulatory [facility] Start: 07-10-2024 End: 07-10-2024 ambulatory [facility] Start: 07-03-2024 End: 07-03-2024 Office outpatient visit 10 minutes Tiesha D Fredi SALES Work Phone: [facility] Comment on above: Chronic throat pain (Primary Dx); Odynophagia; Adenoid hypertrophy Start: 07-03-2024 End: 07-03-2024 ambulatory [facility] Alfredo [facility] Start: 07-01-2024 End: 07-01-2024 Clinisync Result Encounter Generic External Data Provider [facility] External Department Unsolicited Start: 07-01-2024 End: 07-01-2024 Clinisync Result Encounter Generic External Data Provider [facility] External Department Unsolicited Start: 06-27-2024 End: 06-28-2024 Emergency department patient visit DO Katie Thapa Work Phone: [facility] Work Phone: Start: 06-24-2024 End: 06-24-2024 Clinisync Result Encounter Generic External Data Provider [facility] External Department Unsolicited Start: 06-24-2024 End: 06-24-2024 Clinisync Result Encounter Generic External Data Provider [facility] External Department Unsolicited Start: 06-17-2024 End: 06-17-2024 Refill Gm Gomez LPN Work Phone: [facility] 230 Comment on above: Attention deficit hy peractivity disorder (ADHD), combined type ([facility]) Start: 06-04-2024 End: 06-04-2024 Evaluation and management of inpatient EMILIA Cardozo CONKLIN [facility] Start: 06-04-2024 End: 06-04-2024 Evaluation and management of inpatient [facility] Start: 05-21-2024 End: 05-21-2024 ambulatory [facility] Start: 05-21-2024 End: 05-21-2024 Patient encounter procedure Yeyo Herrera Provider 4 [facility] Comment on above: Dysfunction of both eustachian tubes (Primary Dx) Start: 03-18-2024 End: 03-18-2024 Office outpatient visit 25 minutes Mich Verde MD Work [facility]: [facility] Comment on above: Dysfunction of both eustachian tubes (Primary Dx); Hearing loss of right ear, unspecified hearing loss type; Otomycosis- right ear; Dysfunction of right eustachian tube; Acute right otitis media Start: 03-18-2024 End: 03-18-2024 ambulatory MICH VERDE [facility] Start: 03-07-2024 End: 03-07-2024 Orders Only Tiesha Rai PA-C Work Phone: [facility] Start: 03-06-2024 End: 03-06-2024 ambulatory [facility] Alfredo [facility] [...] Start: 12-26-2023 End: 12-26-2023 ambulatory ÁNGELA DELGADO Facility:[facility] Start: 12-26-2023 End: 12-26-2023 Patient encounter procedure [...] type Start: 11-21-2023 End: 11-21-2023 ambulatory SELF Facility:[facility] Start: 11-21-2023 End: 11-21-2023 Patient encounter procedure Ángela Delgado DPM Work Phone: Podiatry Comment on above: Onychomycosis (Prima ry Dx); Ingrown toenail; Toe pain, bilateral; Medication monitoring encounter Start: 11-09-2023 End: 11-09-2023 ambulatory Pérez Barcenas Other [employer] Other Start: 11-09-2023 Encounter by arlene fair Pérez [facility] Start: 11-09-2023 Telephone encounter Pérez Arboleda [facility] Start: 11-08-2023 Nutrition therapy Pérez [facility] Start: 11-08-2023 Telephone encounter Pérez Barcenas [facility] Start: 11-08-2023 Registered Recurring DO Katie Thapa Work Phone: [facility] Work Phone: Start: 11-08-2023 End: 11-08-2023 ambulatory DO Katie Thapa Work Phone: [employer] Other Start: 11-08-2023 End: 11-08-2023 Patient encounter procedure DO Katie Thapa Work Phone: [facility] [place] Work Phone: Start: 09-23-2023 End: 09-23-2023 ambulatory Patricia Salas Other [employer] Other Start: 09-23-2023 Patient encounter procedure Patricia [facility] [place] Start: 09-23-2023 Patient encounter procedure DO Katie Thapa Work Phone: [facility]- Start: 08-17-2023 End: 08-17-2023 Admission to same day surgery center DO Katie Thapa Work Phone: [facility] [place] Start: 08-17-2023 End: 08-17-2023 ambulatory DO Katie Thapa Work Phone: [facility] Work Phone: Start: 08-16-2023 Telephone encounter Mara barrios MD Work Phone: Internal Medicine Comment on above: Patient Question Start: 08-16-2023 End: 08-16-2023 ambulatory Mary Ann Levin MD Work Phone: Dermatology Comment on above: Acne vulgaris (Prima ry Dx) Start: 08-16-2023 End: 08-16-2023 Telemedicine consultation with patient Mary Ann Levin MD Work Phone: [facility] Start: 08-03-2023 End: 08-03-2023 Admission to same day surgery center DO Katie Thapa Work Phone: [facility] [place] Start: 08-03-2023 End: 08-03-2023 ambulatory DO Katie Thapa Work Phone: [facility] Work Phone: Start: 07-18-2023 Telephone encounter Mary Ann reynolds MD Work Phone: Dermatology Comment on above: Medication Question Start: 06-25-2023 ambulatory Mary Ann Levin MD Work Phone: Dermatology Comment on above: Ance Start: 06-09-2023 End: 06-09-2023 ambulatory Arti Barahona Other [employer] Other Start: 06-09-2023 Office outpatient vi sit 15 minutes Arti Barahona [facility] [place] Start: 06-08-2023 Telephone [...] 04-04-2023 Telemedicine consultation with patient Kerry Cristobal COONEY Work Phone: [facility] Start: 01-03-2023 End: 01-04-[address] Diane THAPA Facility:[facility]1 Start: 12-30-2022 ambulatory [facility] Start: 12-29-2022 Telephone encounter Mary Ann reynolds MD Work Phone: Dermatology Comment on above: Patient Question Start: 12-16-2022 End: 12-17-2022 ambulatory Katie THAPA [facility] Start: 12-15-2022 End: 12-16-[address] DOCTOR MIKE Facility:[facility] Start: 12-14-2022 [facility] Start: 12-13-2022 ambulatory Wesly KEEN Facility: [facility] Start: 12-12-2022 ambulatory Wesly KEEN Facility: [facility] Start: 11-18-2022 ambulatory Ludy ROBLES [employer] Comment on above: Pt would like a neur ology 2nd opinion appt. 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] Start: 11-14-2022 End: 11-14-2022 Patient encounter procedure Sreekanth Sood MD Work Phone: Neurology Comment on above: Cerebellar tonsillar ectopia (HCC) (Primary Dx); Exertional headache; Cervicalgia; Macromastia Start: 11-02-2022 ambulatory Aminata husain RN [facility] Start: 11-02-2022 Patient encounter procedure Aminata Montgomery RN NURSE [employer] Comment on above: Referral Information Start: 10-21-2022 End: 10-22-[address] Diane THAPA Facility: Start: 10-13-2022 End: 10-14-2022 ambulatory DIANNA VILLA Facility:[facility] Start: 10-11-2022 End: 10-12-[address] MICHAEL FOURNIER . Facility: Start: 09-12-2022 End: 09-12-2022 Patient encounter procedure Mary Ann eLvin MD Work Phone: Dermatology Comment on above: [...] patient Mary Ann Levin MD Work Phone: [facility] Start: 08-09-2022 ambulatory Mary Ann Levin MD Work Phone: Dermatology Comment on above: Ance medicine Start: 08-05-2022 Telephone encounter No Pcp [facility] [place] Comment on above: Medication Problem Start: 08-04-2022 [...] 06-24-2022 End: 06-24-2022 ambulatory Zully Mendoza Other [employer] Other Start: 06-24-2022 Office outpatient vi sit 15 minutes Zully Mendoza [facility] [place] Start: 05-15-2022 Refill Mary Ann Levin MD Work Phone: Dermatology Comment on above: Refill Request Start: 05-12-2022 End: 05-12-2022 Patient encounter procedure Mary Ann Levin MD Work Phone: Dermatology Comment on above: APPOINTMENT CANCELLE D (Primary Dx) Start: 04-04-2022 End: 04-04-2022 ambulatory Sreekanth Sood MD Work Phone: Neurology Comment on above: Cerebellar tonsillar ectopia (HCC) (Primary Dx); Exertional headache; 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 Start: 04-04-2022 End: 04-04-2022 Telemedicine consultation with patient Sreekanth Sood MD Work Phone: [facility] Start: 03-16-2022 Refill Mary Ann Levin MD Work Phone: [facility] [place] Comment on above: Refill Request Start: 03-16-2022 Refill Mary Ann Levin MD Work Phone: Dermatology Comment on above: Refill Request Start: 12-30-2021 ambulatory Mary Ann Levin MD Work Phone: Dermatology Comment on above: Ance Start: 12-30-2021 End: 12-30-2021 Patient encounter procedure Sreekanth Sood MD Work Phone: Neurology Comment on above: Cerebellar tonsillar ectopia (HCC) (Primary Dx); Exertional headache; [id number] syndrome manifesting as chronic headache Start: 12-29-2021 ambulatory Francheska Lapponi RT(R) Ra diology Comment on above: Radiology MRI Start: 12-29-2021 Patient encounter procedure Francheskajarred Lanzai RT(R) [facility] [place] Start: 12-29-2021 End: 12-29-2021 Subsequent hospital visit by physician Mri [facility] (1.5t) Work Phone: Radiology Comment on above: Thunderclap headache [G44.53] Start: 05-22-2019 End: 05-22-2019 [facility] Start: 06-13-2017 End: 06-13-2017 Emergency department patient visit SREEKANTH JOHNSON Facility:[facility] Procedures Date Procedure Procedure Detail Performing Clinician Start: 07-05-2025 [facility] PREG QUANT HCG Jona Vann MD Work Phone: Start: 07-03-2025 [facility] PREG QUANT HCG Jona Vann MD Work Phone: Start: 06-10-2025 METHYLENETETRAHYDROFOLATE REDUCTASE (MTHFR) THERMOLABILS Jona Vann MD Work Phone: Start: 04-17-2025 URINE CULTURE - [facility] External Data Provider Start: 02-22-2025 Gonadotropin chorionic quantitative Jona Vann MD Work Phone: Start: 02-18-2025 Diagnostic ultrasound of gravid uterus Katie Thapa DO Work Phone: Start: 02-18-2025 Determination of growth of fungi Katie Thapa DO Work Phone: Start: 02-18-2025 Trichomonas vaginalis detection Katie Thapa DO Work Phone: Start: 02-18-2025 Transvaginal obstetric ultrasonography Katie Thapa DO Work Phone: Start: 01-11-2025 End: [...] Phone: Start: 06-28-2024 Trichomonas vaginalis detection DO Katie Thapa Work Phone: Start: [...] Marinelli RT(R) Start: 05-22-2019 Aerobic Culture Margarita Apple Start: 05-22-2019 Anaerobic Culture Margarita Apple Start: 05-22-2019 Microscopic observation Gram stain Nom (Unsp spec) Margaritamickey Chiu Plan of Treatment Date Care Activity Detail Author Start: 02-27-2026 Tobacco Screening Tobacco Screening [facility] Start: 02-26-2026 Adult BMI Screening Adult BMI Screen ing [facility] Start: 11-04-2025 Adult BMI Screening Adult BMI Screen ing [facility] Start: 09-11-2025 Adult BMI Screening Adult BMI Screen ing [facility] Start: 09-11-2025 Tobacco Screening Tobacco Screening [facility] Start: 08-27-2025 Adult BMI Screening Adult BMI Screen ing [facility] Start: 08-27-2025 Tobacco Screening Tobacco Screening [facility] Start: 08-20-2025 Adult BMI Screening Adult BMI Screen ing [facility] Start: 08-20-2025 Tobacco Screening Tobacco Screening [facility] Start: 08-14-2025 End: 08-14-2025 Patient encounter procedure BRANDEN [facility] Start: 07-15-2025 Adult BMI Screening Adult BMI Screen ing [facility] Start: 07-15-2025 Tobacco Screening Tobacco Screening [facility] Start: 07-15-2025 End: 07-15-2025 Patient encounter procedure 07/15/2025 8:45 AM EDT Office Visit BRANDEN APONTE [address] [place] [phone] Jona Vann MD [address] [place] [address] BRANDEN APONTE Start: 07-03-2025 Adult BMI Screening Adult BMI Screen ing [facility] Start: 07-03-2025 Tobacco Screening Tobacco Screening [facility] Start: 06-25-2025 DTaP,Tdap and Td Vaccines (7 - Td or Tdap) DTaP,Tdap and Td Vaccines (7 - Td or Tdap) [facility] Start: 06-25-2025 DTaP/Tdap/Td vaccine (7 - Td or Tdap) DTaP/Tdap/Td vaccine (7 - Td or Tdap) [facility] Start: 06-25-2025 Urine microalbumin profile DTaP,Tdap,Td Vaccine (7 - Td or Tdap) [facility] Start: 06-13-2025 End: 06-13-2025 Patient encounter procedure BRANDEN [place] [facility] 230 Comment on above: Major depressive dis order, single episode, mild Start: 06-10-2025 End: 06-10-2026 Ferritin [Mass/volume] in Serum or Plasma Ferritin Lab Routine Amenorrhea Menorrhagia with irregular cycle Excessive bleeding in premenopausal period Expected: 06/10/2025 (Approximate), Expires: 06/10/2026 [facility] Comment on above: Expected: 06/10/2025 (Approximate), Expires: 06/10/2026 Start: 06-10-2025 End: 06-10-2026 MTHFR mutation MTHFR mutation Lab Routine History of miscarriage Expected: 06/10/2025 (Approximate), Expires: 06/10/2026 [facility] Work Phone: Comment on above: Expected: 06/10/2025 (Approximate), Expires: 06/10/2026 Start: 06-09-2025 COVID-19 Vaccine () COVID-19 Vaccine () [facility] Start: 06-09-2025 Influenza vaccination [facility] Start: 05-21-2025 Adult BMI Screening Adult BMI Screen ing [facility] Start: 05-21-2025 Tobacco Screening Tobacco Screening [facility] Start: 05-01-2025 End: 05-01-2025 Patient encounter procedure 05/01/2025 4:15 PM EDT Office Visit Dermatology [address] [place], [place] [id number] Mary Ann Levin MD [address] [place], [place] [phone] requesting refills Dermatology Comment on above: requesting refills Start: 04-17-2025 Bacteria identified in Urine by Culture Urine Culture [facility] Start: 04-17-2025 Urine culture [facility] Start: 03-18-2025 Adult BMI Screening Adult BMI Screen ing [facility] Start: 03-18-2025 Tobacco Screening Tobacco Screening [facility] Start: 03-06-2025 Adult BMI Screening Adult BMI Screen ing [facility] Start: 03-06-2025 Tobacco Screening Tobacco Screening [facility] Start: 02-19-2025 End: 02-19-2025 Patient encounter procedure 02/19/2025 12:45 PM EDT Office Visit Dermatology [address] [place], [place] [phone] Mary Ann Levin MD [address] [place], [place] [id number] 2 months follow up for acne Dermatology Comment on above: 2 months follow up f or acne Start: 02-18-2025 [facility] Start: 12-18-2024 Adult BMI Screening Adult BMI Screen ing [facility] Start: 12-18-2024 Tobacco Screening Tobacco Screening [facility] Start: 12-03-2024 End: 12-03-2024 Patient encounter procedure 12/03/2024 8:40 AM EST Office Visit [facility] [address] [place] [phone] Anil Thapa, DO [address] [place] [address] [facility] [address] Start: 11-04-2024 End: 11-04-2024 Patient encounter procedure 11/04/2024 1:45 PM EST Office Visit [facility] [address] [place] [address] [facility] [address] [place] [address] [facility] Start: 10-15-2024 End: 10-15-2024 Patient encounter procedure 10/15/2024 10:00 AM EST Office Visit [facility] [address] [place] [phone] Anil Thapa, DO [address] [place] [address] [facility] [address] Start: 10-10-2024 End: 10-10-2024 Patient encounter procedure 10/10/2024 1:45 PM EST Office Visit Dermatology [address] [place] [address] Mary Ann Levin MD [address] [place], [place] [phone] [facility] Comment on above: [facility] Start: 09-11-2024 End: 09-11-2024 Patient encounter procedure 09/11/2024 10:30 AM EST Office Visit [facility] [address] [place] [address] Vu, [facility], DO [address] [place] [address] [facility] Start: 09-10-2024 End: 09-10-2024 Clinical Support [facility] Start: 09-09-2024 End: 09-09-2024 Patient encounter procedure 09/09/2024 9:45 AM EST Office Visit [facility] [address] [place] [phone] Vu, [facility], DO [address] [place] [address] [facility] Start: 08-27-2024 End: 08-27-2024 Admission to same day surgery center 08/27/2024 12:45 PM EST - 08/27/2024 1:45 PM EST Surgery [facility] Surgery [address] [place] [address] Vu [facility], DO [address] [place] [address] DIRECT LARYNGOSCOPY WITH BIOPSY BASE OF TONGUE LESION [23485 (CPT )] [facility] Comment on above: DIRECT LARYNGOSCOPY WITH BIOPSY BASE OF TONGUE LESION [77033 (CPT )] Start: 08-27-2024 End: 08-27-2024 Laryngoscopy direct operative w/biopsy DIRECT LARYNGOSCOPY Lesion of tongue 08/27/2024 12:45 PM EST [facility] Start: 08-27-2024 Subsequent hospital visit by physician 08/27/2024 12:45 PM EST Hospital Encounter [facility] Surgery [address] [place] [address] Dick Osbaldo-Nhu, DO [address] [facility] [address] [place] [address] [facility] Start: 08-27-2024 End: 08-27-2024 Laryngoscopy direct operative w/biopsy DIRECT LARYNGOSCOPY Lesion of tongue 08/27/2024 10:13 AM EST [facility] Start: 08-13-2024 End: 08-13-2024 Patient encounter procedure 08/13/2024 1:45 PM EST Office Visit [facility] [address] [facility] [address] [place] [phone] Jona Vann MD [address] [facility] [address] [place] [address] [facility] Start: 08-08-2024 End: 08-08-2024 Patient encounter procedure 08/08/2024 10:00 AM EDT Office Visit [facility] [address] [place] [phone] Renita lElis APRN-CIVIL ENGINEERING DESIGN DRAFTSPERSON [address] [place] [address] [facility] Start: 08-07-2024 End: 08-07-2024 Patient encounter procedure 08/07/2024 10:00 AM EDT Office Visit [facility] [address] [facility] [address] [place] [phone] [facility] DO [address] [facility] [address] [place] [address] [facility] Start: 07-24-2024 End: 07-24-2024 Patient encounter procedure 07/24/2024 10:00 AM EDT Office Visit [facility] [address] [place] [phone] Renita Ellis, INSTALLATION COORDINATOR-CIVIL ENGINEERING DESIGN DRAFTSPERSON [address] [place] [address] [facility] Start: 07-15-2024 End: 07-15-2024 Patient encounter procedure 07/15/2024 3:30 PM EDT Office Visit [facility] [address] [facility] [address] [place] [address] Mich Verde MD [address] [facility] [address] [place] [address] [facility] Start: 07-03-2024 End: 07-03-2025 CT Neck W contrast IV CT neck soft tissue with contrast Imaging Routine Chronic throat pain Odynophagia Expected: 07/03/2024, Expires: 07/03/2025 [facility] Work Phone: Comment on above: Expected: 07/03/2024 , Expires: 07/03/2025 Start: 06-28-2024 Computed tomography of abdomen and pelvis with contrast CT abdomen pelvis w con [facility] Start: 06-28-2024 CT Abdomen and Pelvi s W contrast IV [facility] Start: 06-28-2024 [facility] Start: 06-27-2024 Bacteria identified in Urine by Culture [facility] Start: 06-19-2024 Depression Screening Depression Scre ening [facility] Start: 06-09-2024 COVID-19 Vaccine ( season) COVID-19 Vaccine ( season) [facility] Start: 06-09-2024 Covid-19 Vaccine ( season) Covid-19 Vaccine ( season) [facility] Start: 06-09-2024 Influenza vaccination [facility] Start: 06-04-2024 End: 06-04-2024 Admission to same day surgery center 06/04/2024 9:00 AM EDT - 06/04/2024 9:30 AM EDT Surgery [facility] Surgery [address] [facility] [place] [phone] [place] [address] [place] [address] [address] [place] [address] REMOVAL TUBE EAR [60523 (CPT )] [facility] Comment on above: REMOVAL TUBE EAR [69 424 (CPT )] Start: 06-04-2024 Subsequent hospital visit by physician 06/04/2024 9:00 AM EDT Hospital Encounter [address] [place] [phone] Mich Verde MD [address] [place] [address] [address] [place] [address] [facility] Start: 06-04-2024 End: 06-04-2024 Tympanic memb rpr w/wo prepj perfor patch APPLICATION GRAFT PAPER PATCH EAR Dysfunction of both eustachian tubes Hearing loss of right ear, unspecified hearing loss type Otomycosis Acute right otitis media Cerumen debris on tympanic membrane of both ears Chronic mucoid otitis media of both ears 06/04/2024 9:00 AM EDT [facility] Start: 06-04-2024 End: 06-04-2024 Ventilating tube rmvl requiring general anes REMOVAL TUBE EAR Dysfunction of both eustachian tubes Hearing loss of right ear, unspecified hearing loss type Otomycosis Acute right otitis media Cerumen debris on tympanic membrane of both ears Chronic mucoid otitis media of both ears 06/04/2024 9:00 AM EDT [facility] Start: 04-08-2024 End: 04-08-2024 Patient encounter procedure 04/08/2024 4:15 PM EDT Office Visit [facility] [address] [place] [phone] Tiesha Rai, PA-C [address] [place] [address] [facility] Start: 03-18-2024 End: 03-18-2024 Patient encounter procedure 03/18/2024 2:30 PM EDT Office Visit [facility] [address] [facility] [address] [place] [phone] Mich Verde MD [address] [place] [address] [address] [place] [address] [facility] Start: 02-13-2024 End: 02-13-2024 Patient encounter procedure 02/13/2024 2:00 PM EDT Office Visit [facility] [address] [facility] [address] [place] [address] Mich Verde MD [address] [place] [address] [address] [place] [address] [facility] Start: 02-06-2024 End: 02-06-2024 Patient encounter procedure 02/06/2024 1:15 PM EDT Office Visit [facility] [address] [facility] [address] [place] [phone] Tiesha Rai, PA-C [address] [place] [address] [facility] Start: 11-21-2023 End: 02-20-2024 Hepatic function 2000 panel - Serum or Plasma HEPATIC FUNCTION PNL Lab Routine Medication monitoring encounter Expected: 11/21/2023, Expires: 02/20/2024 [facility] Work Phone: Comment on above: Expected: 11/21/2023 , Expires: 02/20/2024 Start: 2023 Screening for malign ant neoplasm of cervix [facility] Start: 10-09-2023 Depression Assessment Depression Ass essment [facility] Start: 08-17-2023 [facility] Start: 08-03-2023 End: 08-03-2023 [facility] Start: 06-09-2023 Covid-19 Vaccine ( season) Covid-19 Vaccine ( season) [facility] Start: 06-09-2023 Influenza vaccination [facility] Start: 04-04-2023 Adult depression screening assessment DEPRESSION SCREENING [facility] Start: 12-22-2022 Adult depression screening assessment DEPRESSION SCREENING [facility] Start: 10-09-2022 DEPRESSION ASSESSMENT DEPRESSION ASS ESSMENT [facility] Start: 06-09-2022 Influenza vaccination INFLUENZA (#1) [facility] Start: 10-09-2021 DEPRESSION ASSESSMENT DEPRESSION ASS ESSMENT [facility] Start: 2020 Adult BMI Follow Up Plan Adult BMI Follow Up Plan [facility] Start: 2020 CHLAMYDIA SCREENING (18-24) CHLAMYDIA SCREENING (18-24) [facility] Start: 2020 Depression Screening Depression Scre ening [facility] Start: 2020 GC (GONORRHEA) SCREENING (18-24) GC (GONORRHEA) SCREENING (18-24) [facility] Start: 2020 HEPATITIS C SCREENING HEPATITIS C SC J CARLOSNING [facility] Start: 2020 Hepatitis C screening C [facility] Start: 2020 HIV SCREENING HIV SCREENING [facility] Start: 2020 HIV screening HIV Screening [facility] Start: 2020 Screening for Chlamy magaly trachomatis Chlamydia Screening (18-24) [facility] Start: 2018 Meningococcal B Vacc ine (1 of 2 - Standard) Meningococcal B Vaccine (1 of 2 - Standard) [facility] Start: 2018 Meningococcal B Vaccine: Consider Based On Risk (1 of 2 - Patient Seeks Protection) Meningococcal B Vaccine: Consider Based On Risk (1 of 2 - Patient Seeks Protection) [facility] Start: 2018 MENINGOCOCCAL B: Consider based on risk (1 of 2 - Patient Seeks Protection) MENINGOCOCCAL B: Consider based on risk (1 of 2 - Patient Seeks Protection) [facility] Start: 2018 Screening for Chlamy magaly trachomatis Chlamydia/GC screen [facility] Start: 2017 HIV screening HIV screen [facility] Start: 06-17-2017 HPV VACCINE (2 - 2-d ose series) HPV VACCINE (2 - 2-dose series) [facility] Start: 2016 PEDS TO ADULT TRANSITION ANNUAL ASSESSMENT PEDS TO ADULT TRANSITION ANNUAL ASSESSMENT [facility] Start: 2014 Depression Screen Depression Screen [facility] Start: 2014 PEDS TO ADULT TRANSITION INITIAL DISCUSSION PEDS TO ADULT TRANSITION INITIAL DISCUSSION [facility] Start: 2013 Urine microalbumin profile [facility] Start: 2012 MENINGOCOCCAL B: Consider based on risk (1 of 2 - Risk Bexsero 2-dose series) MENINGOCOCCAL B: Consider based on risk (1 of 2 - Risk Bexsero 2-dose series) [facility] Start: 02-27-2008 Varicella vaccine (2 of 2 - 2-dose childhood series) Varicella vaccine (2 of 2 - 2-dose childhood series) [facility] Start: 2007 COVID-19 VACCINE (#1) COVID-19 VACCI NE (#1) [facility] Start: 2007 COVID-19 VACCINE (1) COVID-19 VACCIN E (1) [facility] Start: 04-17-2003 COVID-19 VACCINE (#1) COVID-19 VACCI NE (#1) [facility] Bacteria identified in Urine by Culture Urine culture Microbiology Routine Vaginal burning Ordered: 10/23/2024 [facility] Comment on above: Ordered: 10/23/2024 Bacteria identified in Urine by Culture Urine culture Microbiology Routine Vaginal burning Vaginal itching Vaginal irritation Ordered: 06/10/2025 [facility] Comment on above: Ordered: 06/10/2025 CBC W Auto Different ial panel - Blood CBC and differential Lab Routine Amenorrhea Menorrhagia with irregular cycle Excessive bleeding in premenopausal period Ordered: 06/10/2025 [facility] Comment on above: Ordered: 06/10/2025 End: 07-15-2025 Comprehensive hearing test Comprehensive hearing test Audiology Routine Postop check 1 Occurrences starting 07/15/2024 until 07/15/2025 [facility] Work Phone: Comment on above: 1 Occurrences starti ng 07/15/2024 until 07/15/2025 EKG 12 Lead (Chest Pain) EKG 12 Lead (Chest Pain) ECG STAT 11/16/2024 1:16 AM EST [facility] GENITAL MYCOPLASMAS JANET, SWAB GENITAL MYCOPLASMAS JANET, SWAB Pathology and Cytology Routine Vaginal burning Vaginal itching Vaginal discharge Vaginal odor Ordered: 10/23/2024 [facility] Work Phone: Comment on above: Ordered: 10/23/2024 hCG, quantitative hCG, quantitat woody Lab Routine Amenorrhea Ordered: 06/10/2025 [facility] Comment on above: Ordered: 06/10/2025 Iron and Iron bindin g capacity panel - Serum or Plasma Iron and TIBC Lab Routine Amenorrhea Menorrhagia with irregular cycle Excessive bleeding in premenopausal period Ordered: 06/10/2025 [facility] Comment on above: Ordered: 06/10/2025 Lipoprotein a [Moles/volume] in Serum or Plasma [facility] Lupus anticoagulant Lupus antico agulant Lab Routine History of miscarriage Ordered: 06/10/2025 [facility] Comment on above: Ordered: 06/10/2025 Lopez miscellaneous test Lopez mis cellaneous test Lab Routine Screening for malignant neoplasm of cervix Vaginal discharge Ordered: 08/13/2024 [facility] Comment on above: Ordered: 08/13/2024 NuSwab Vaginitis Plu s (VG+) NuSwab Vaginitis Plus (VG+) Microbiology Routine Screening for malignant neoplasm of cervix Vaginal discharge Ordered: 08/13/2024 [facility] Comment on above: Ordered: 08/13/2024 NuSwab Vaginitis Plu s (VG+) NuSwab Vaginitis Plus (VG+) Microbiology Routine Vaginal burning Vaginal itching Vaginal discharge Vaginal odor Ordered: 10/23/2024 [facility] Comment on above: Ordered: 10/23/2024 Patient Education [facility] Work Phone: Patient referral [facility] Work Phone: SENDOUT TEST MISCELLANEOUS [facility] SENDOUT TEST MISCELLANEOUS [facility] Lab Routine Screening for malignant neoplasm of cervix Encounter for gynecological examination without abnormal finding Ordered: 08/13/2024 [facility] Work Phone: Comment on above: Ordered: 08/13/2024 [place] [facility] [place] [facility] [place] Routine 04/17/2025 1:15 AM EDT [facility] OR [facility] Immunizations Immunization Date Immunization Notes Care Provider Massimo whipple 06-13-2024 influenza, injectabl e, madin maria del carmen canine kidney, preservative free Anil Thapa DO Work Phone: [facility] 06-13-2024 influenza virus vaccine, unspecified formulation Tala MEJIA Work Phone: [facility] 06-23-2023 Influenza, injectabl e, Madin Follansbee Canine Kidney, preservative free, quadrivalent Gm Jason [employer]ILY [employer] WORKER Work Phone: [facility] 06-23-2023 influenza virus vaccine, unspecified formulation Jessica Best [facility] 03-09-2023 SARS-COV-2 (COVID-19 ) vaccine, mRNA, spike protein, LNP, bivalent, preservative free, 30 mcg/0.3 mL dose, merly-sucrose formulation Gm Jason [employer] FAMILY [employer] WORKER Work Phone: [facility] 08-03-2022 Influenza, injectabl e, Madin Maria Del Carmen Canine Kidney, preservative free, quadrivalent Gm Jason [employer] FAMILY [employer] WORKER Work Phone: [facility] 08-03-2022 influenza virus vaccine, unspecified formulation Mary Ann Levin MD Work Phone: [facility] 06-04-2021 influenza, injectabl e, quadrivalent, preservative free Gm Jason [employer] FAMILY [employer] WORKER Work Phone: [facility] 07-02-2020 Influenza, injectabl e, Madin Maria Del Carmen Canine Kidney, quadrivalent with preservative Gm Jason [employer] FAMILY [employer] WORKER Work Phone: [facility] 07-10-2019 Influenza, injectabl e, Madin Maria Del Carmen Canine Kidney, preservative free, quadrivalent Gm Jason [employer] FAMILY [employer] WORKER Work Phone: [facility] 07-06-2018 influenza, injectabl e, quadrivalent, preservative [facility] Work Phone: [facility] 07-13-2017 hepatitis A vaccine, pediatric/adolescent dosage, 2 dose schedule [facility] 07-13-2017 Human Papillomavirus 9-valent vaccine [facility] 07-13-2017 influenza, injectabl e, quadrivalent, preservative free [facility] 12-15-2016 hepatitis A vaccine, adult dosage [facility] 12-15-2016 hepatitis A vaccine, pediatric/adolescent dosage, 2 dose schedule Francheska Marinelli RT(R) [facility] Work Phone: 12-15-2016 human papilloma viru s vaccine, quadrivalent Tiesha Rai PA-C Work Phone: [facility] 12-15-2016 Human Papillomavirus 9-valent vaccine Francheska Marinelli RT(R) [facility] Work Phone: 07-31-2015 meningococcal oligosaccharide (groups A, C, Y and W-135) diphtheria toxoid conjugate vaccine (MCV4O) [facility] 07-31-2015 meningococcal polysaccharide (groups A, C, Y and W-135) diphtheria toxoid conjugate vaccine (MCV4P) Francheska Marinelli RT(R) [facility] 07-08-2015 influenza virus vaccine, unspecified formulation Tiesha Rai PA-C Work Phone: [facility] 07-08-2015 influenza, injectabl e, quadrivalent, preservative free Francheska Marinelli RT(R) [facility] 07-08-2015 influenza, seasonal, injectable Gm Jason [employer]ILY [employer] WORK[employer] Work Phone: [facility] 06-25-2015 tetanus toxoid, redu lita diphtheria toxoid, and acellular pertussis vaccine, adsorbed Jessica Best [facility] 07-30-2013 influenza virus vaccine, unspecified formulation Francheska Lapponi RT(R) [facility] 07-30-2013 influenza, injectabl e, quadrivalent, preservative free Gm Jason [employer] FAMILY [employer] WORKER Work Phone: [facility] 07-28-2011 influenza virus vaccine, unspecified formulation Francheska Lapponi RT(R) [facility] 07-28-2011 influenza, seasonal, injectable Gm Jason [employer] FAMILY [employer] WORKER Work Phone: [facility] 08-24-2010 influenza virus vaccine, unspecified formulation Francheska Lapponi RT(R) [facility] 08-24-2010 influenza, seasonal, injectable, preservative free [facility] [employer] WORK[facility] Work Phone: [facility] 07-22-2009 influenza virus vaccine, live, attenuated, for intranasal use [facility] [employer]ILY [employer] WORKER Work Phone: [facility] 07-22-2009 influenza virus vaccine, unspecified formulation Francheska Lapponi RT(R) [facility] 01-30-2008 diphtheria, tetanus toxoids and acellular pertussis vaccine Francheska Lapponi RT(R) [facility] 01-30-2008 measles, mumps and rubella virus vaccine Francheska Lapponi RT(R) [facility] 01-30-2008 poliovirus vaccine, inactivated Francheska Lapponi RT(R) [facility] 11-08-2004 diphtheria, tetanus toxoids and acellular pertussis vaccine Francheska Lapponi RT(R) [facility] 11-08-2004 varicella virus vaccine Francheska Lappo ni RT(R) [facility] 08-31-2004 influenza virus vaccine, unspecified formulation Tiesha Rai PA-C Work Phone: [facility] 08-31-2004 influenza, seasonal, injectable Gm Jason [employer] FAMILY [employer] WORKER Work Phone: [facility] 08-31-2004 influenza, seasonal, injectable, preservative free Francheska Lapponi RT(R) [facility] 04-21-2004 haemophilus influenz ae type b vaccine, conjugate unspecified formulation [facility] 04-21-2004 haemophilus influenz ae type b vaccine, HbOC conjugate Francheska Lapponi RT(R) [facility] 04-21-2004 measles, mumps and rubella virus vaccine Francheska Lapponi RT(R) [facility] 04-21-2004 pneumococcal conjuga te vaccine, 7 valent [facility] 04-21-2004 pneumococcal Conjuga te, unspecified formulation Francheska Lapponi RT(R) [facility] 10-15-2003 influenza virus vaccine, unspecified formulation Tiesha Rai PA-C Work Phone: [facility] 10-15-2003 influenza, seasonal, injectable Francheska Lapponi RT(R) [facility] 09-12-2003 influenza virus vaccine, unspecified formulation Tiesha Rai PA-C Work Phone: [facility] 09-12-2003 influenza, seasonal, injectable Francheska Lapponi RT(R) [facility] 09-09-2003 pneumococcal conjuga te vaccine, 7 valent [facility] 09-09-2003 pneumococcal Conjuga te, unspecified formulation Francheska Lapponi RT(R) [facility] 09-09-2003 poliovirus vaccine, inactivated Francheska Lapponi RT(R) [facility] 04-21-2003 diphtheria, tetanus toxoids and acellular pertussis vaccine Francheska Lapponi RT(R) [facility] 04-21-2003 haemophilus influenz ae type b vaccine, conjugate unspecified formulation [facility] 04-21-2003 haemophilus influenz ae type b vaccine, HbOC conjugate Francheska Lapponi RT(R) [facility] 04-21-2003 hepatitis B vaccine, pediatric or pediatric/adolescent dosage Francheska Lapponi RT(R) [facility] 04-21-2003 pneumococcal conjuga te vaccine, 7 valent [facility] 04-21-2003 pneumococcal Conjuga te, unspecified formulation Francheska Lapponi RT(R) [facility] 02-17-2003 diphtheria, tetanus toxoids and acellular pertussis vaccine Francheska Lapponi RT(R) [facility] 02-17-2003 haemophilus influenz ae type b vaccine, conjugate unspecified formulation [facility] 02-17-2003 haemophilus influenz ae type b vaccine, HbOC conjugate Francheska Lapponi RT(R) [facility] 02-17-2003 poliovirus vaccine, inactivated Francheska Lapponi RT(R) [facility] 2002 diphtheria, tetanus toxoids and acellular pertussis vaccine Francheska Lapponi RT(R) [facility] 2002 haemophilus influenz ae type b vaccine, conjugate unspecified formulation [facility] 2002 haemophilus influenz ae type b vaccine, HbOC conjugate Francheska Lapponi RT(R) [facility] 2002 hepatitis B vaccine, pediatric or pediatric/adolescent dosage Francheska Lapponi RT(R) [facility] 2002 pneumococcal conjuga te vaccine, 7 valent [facility] 2002 pneumococcal Conjuga te, unspecified formulation Francheska Lapponi RT(R) [facility] 2002 poliovirus vaccine, inactivated Francheska Lapponi RT(R) [facility] 2002 hepatitis B vaccine, pediatric or pediatric/adolescent dosage Francheska Lapponi RT(R) [facility] Payers Date Payer Category Payer Self-pay 2022 Medicaid [id number] 2021 Medicaid [employer] [place] [employer] [id number] 2021-[facility] [phone] [address] [place] [address] Medicaid [id number] 2021 Medicaid [id number] [id number] 2002 Unknown [id number] 2.16.840.1.850998.3.579.2.983 2002 Unknown [id number] 2.16.840.1.460665.3.579.2.983 2002 Unknown [id number] 2.16.840.1.035689.3.579.2.983 2002 Unknown [id number] 2.16.840.1.488303.3.579.2.593 2002 Unknown [id number] 2.16.840.1.279498.3.579.2.593 2002 Unknown [id number] 2.16.840.1.091270.3.579.2.593 2002 Unknown [id number] 2.16.840.1.451762.3.579.2.593 2002 Unknown [id number] 2.16.840.1.287595.3.579.2.593 2002 Unknown [id number] 2.16.840.1.655385.3.579.2.1286 2002 Unknown [id number] 2.16.840.1.322119.3.579.2.1286 2002 Unknown [id number] 2.16.840.1.753052.3.579.2.1286 2002 Unknown [id number] 2.16.840.1.938055.3.579.2.1286 2002 Unknown [id number] 2.16.840.1.172593.3.579.2.128 2002 Unknown [id number] 2.16.840.1.561912.3.579.2.128 2002 Unknown [id number] 2.16.840.1.050209.3.579.2.1286 2002 Unknown [id number] 2.16.840.1.697389.3.579.2.1286 2002 Unknown [id number] 2.16.840.1.534983.3.579.2.128 2002 Unknown [id number] 2.16.840.1.958863.3.579.2.1285 2002 Unknown [id number] 2.16.840.1.358056.3.579.2.128 2002 Unknown [id number] 2.16.840.1.445357.3.579.2.174 2002 Unknown [id number] 2.16.840.1.773807.3.579.2.174 2002 Unknown [id number] 2.16.840.1.633175.3.579.2.174 2002 Unknown [id number] 2.16.840.1.879603.3.579.2.174 2002 Unknown [id number] 2.16.840.1.825674.3.579.2.[facility] Unknown [id number] 2.16.840.1.011754.3.579.2.1285 2002 Unknown [id number] 2.16.840.1.867666.3.579.2.1285 2002 Unknown [id number] 2.16.840.1.379770.3.579.2.1285 2002 Unknown [id number] 2.16.840.1.092369.3.579.2.1285 2002 Unknown [id number] 2.16.840.1.465211.3.579.2.128 2002 Unknown [id number] 2.16.840.1.603896.3.579.2.1285 2002 Unknown [id number] 2.16.840.1.375852.3.579.2.1285 2002 Unknown [id number] 2.16.840.1.922632.3.579.2.1285 2002 Unknown [id number] 2.16.840.1.874962.3.579.2.1286 2002 Unknown [id number] 2.16.840.1.244912.3.579.2.1259 2002 Unknown [id number] 2.16.840.1.743613.3.579.2.1259 2002 Unknown [id number] 2.16.840.1.124517.3.579.2.1259 2002 Unknown [id number] 2.16.840.1.858898.3.579.2.1259 2002 Unknown [id number] 2.16.840.1.470239.3.579.2.1259 2002 Unknown [id number] 2.16.840.1.529414.3.579.2.1259 2002 Unknown [id number] 2.16.840.1.252160.3.579.2.1259 1959 Medicaid [id number] Unknown [id number] Unknown [id number] 2.16.840.1.030657.3.579.2.531 Unknown [id number] 2.16.840.1.994096.3.579.2.531 Unknown [id number] 2.16.840.1.034569.3.579.2.531 Social History Date Type Detail Facility Start: 12-30-2021 End: 06-29-2023 Tobacco smoking status VAIS Never smoked tobacco [facility] Start: 12-22-2021 End: 11-21-2023 Alcohol intake Current non-drinker of alcohol (finding) [facility] Start: 2002 Sex Assigned At Not on file [facility] Start: 12-19-2021 End: 09-12-2022 Exposure to SARS-CoV-2 (event) Not sure [facility] Start: 12-30-2021 End: 06-29-2023 Tobacco use and exposure Smokeless tobacco non-user [facility] Start: 10-13-2022 End: 06-11-2025 Sex Assigned At [facility] Start: 08-04-2022 Tobacco Comment no one in hous [facility] Start: 10-13-2022 End: 06-11-2025 History of Social function [facility] Adult Depression Screening Assessment 3 [facility] Start: 2002 Sex Assigned At Female F [facility] Start: 07-17-2024 End: 06-13-2025 Alcoholic beverage intake Ex-drinker (finding) [facility] How often to you hav e a drink containing alcohol? Never [facility] Start: 07-10-2023 Alcohol Comment caffeine: none [facility] Start: 12-13-2021 Gender identity Identifies as female gender (finding) [facility] Start: 09-11-2024 End: 02-27-2025 Alcoholic beverage intake Current drinker of alcohol (finding) [facility] [employer] [facility] Start: 08-20-2024 Alcohol Comment q [facility]x per month [facility] [place] [facility] Start: 03-03-2017 End: 01-30-2019 Sex Female (finding) [facility] [employer] [facility] Start: 01-11-2025 Alcoholic beverage intake Lifetime non-drinker (finding) [facility] Has the electric, gas, oil, or water company threatened to shut off services in your home in past 12Mo No [facility] [employer] How often to you hav e [...] Sometimes true [facility] NEGATED: Highlighted row [facility] Medical Equipment Procedure Code Equipment Code Equipment Origin al Text Equipment Identifier Dates Tube Vent 4.8mm 1.32mm Rchrd - [id number] Start: 11-14-2011 Tube Malena Juan in Vent 520-181 - [id number] Start: 02-17-2010 Tube Ear Jacquelyn Bx/5 Bill - [id number] Start: 11-02-2017 Goals Date Patient Goal Desired Activity /State Personal health goal Comment on above: Formatting of this n ote might be different from the original. Evaluation of progress towards goal: Safe dc transition from hospital to home. Functional Status Date Assessment Result Facility 06-13-2025 Patient Health Quest ionnaire 2 item (PHQ-2) [Reported] [facility] 06-11-2025 Total score [AUDIT-C] 2 06/11/20 12:16 PM EDT Mychart, Generic [facility] 06-11-2025 How often to you hav e a drink containing alcohol? Monthly or less 06/11/2025 12:16 PM EDT Mychart, Generic Monthly or less [facility] 06-11-2025 Functional status Patient does n ot drink 06/11/2025 12:16 PM EDT Mychart, Generic Patient does not drink [facility] 06-11-2025 How often do you hav e 6 or more drinks on 1 occasion? Less than monthly 06/11/2025 12:16 PM EDT Mychart, Generic Less than monthly [facility] 08-21-2015 Are you deaf, or do you have serious difficulty hearing No 08/21/2015 10:22 AM Angela Hernandez RN [facility] 08-21-2015 Are you blind, or do you have serious difficulty seeing, even when wearing glasses No 08/21/2015 10:22 AM Angela Hernandez RN No [facility] 08-21-2015 Do you have serious difficulty walking or climbing stairs No 08/21/2015 10:22 AM Angela Hernandez, JESSIE No [facility] 08-21-2015 Do you have difficul ty dressing or bathing No 08/21/2015 10:22 AM Angela Hernandez, JESSIE No [facility] Mental Status Date Assessment Result Facility 08-21-2015 Because of a physica l, mental, or emotional condition, do you have serious difficulty concentrating, remembering, or making decisions No 08/21/2015 10:22 AM Angela Hernandez, JESSIE No [facility] Clinical Notes 11-17-2015 to 07-04-2025 Telephone Encounter - Doris Hernandez - 07/04/2025 12:58 PM EDTTelephone Encounter - Doris Hernandez - 07/04/2025 12:58 PM EDTTelephone Encounter - Otilia Oviedo - 07/03/2025 8:37 AM EDT Note Date & Type Note Facility 07-04-2025 Miscellaneous Notes Spoke with Charis to let her know that Dr. Barbosa does not follow for headaches during and that she would need to follow with Neurology for headaches during her and transferred to Neurology documented in this encounter [facility] 07-04-2025 Telephone encounter Note Spoke with Charis to let her know that Dr. Barbosa does not follow for headaches during and that she would need to follow with Neurology for headaches during her and transferred to Neurology [facility] 07-03-2025 Miscellaneous Notes Supervisor [employer] contacted the patient to offer to schedule from referral that was written by Xiao Ellis. She stated that she would prefer to schedule with neurosurgery. Supervisor [employer] transferred to neurosurgery. documented in this encounter [facility] 07-03-2025 Telephone encounter Note Supervisor [employer] contacted the patient to offer to schedule from referral that was written by Xiao Ellis. She stated that she would prefer to schedule with neurosurgery. Supervisor [employer] Milk transferred to neurosurgery. [facility] 06-13-2025 History of Present illness Narrative Associated [...] chew, or split. 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 Exact number and timing not specified. Etiology unclear at this time. Plan: - Refer to superintendent division for comprehensive evaluation of recurrent miscarriages - Advise patient that future pregnancies may be complicated due to Chiari malformation, necessitating specialized care Chiari Malformation Assessment: Patient has a known diagnosis of Chiari malformation. This condition may complicate future pregnancies. Plan: - Emphasize importance of specialized care for any future pregnancies due to Chiari malformation - Ensure superintendent division is aware of this condition for comprehensive planning Assessment & Plan documented in this encounter [facility] 03-19-2025 Telephone encounter Note Patient phones requesting refills as follows: BERENICE: 08/16/2023 FOV: none noted Patient will need follow up appointment, routed to [employer] derm medical scheduler at this time. Requested Prescriptions Pending Prescriptions Disp Refills clindamycin (CLEOCIN) 1 % external solution [Pharmacy Med Name: CLINDAMYCIN PH 1% SOLUTION] 60 mL 0 Sig: APPLY TO AFFECTED AREAS ON FACE ONCE EVERYDAY Please review and advise. Otilia Gomez LPN [facility] 03-19-2025 Miscellaneous Notes Patient phones requesting refills as follows: BERENICE: 08/16/2023 FOV: none noted Patient will need follow up appointment, routed to [employer] derm medical scheduler at this time. Requested Prescriptions Pending Prescriptions Disp Refills clindamycin (CLEOCIN) 1 % external solution [Pharmacy Med Name: CLINDAMYCIN PH 1% SOLUTION] 60 mL 0 Sig: APPLY TO AFFECTED AREAS ON FACE ONCE EVERYDAY Please review and advise. Otilia Gomez LPN documented in this encounter [facility] 02-18-2025 Radiology Diagnostic study note [facility] [place] [address] [place] [address] Ultrasound Report Signed Patient: Charis Allen MR#: [id number] : 2000 Acct:[id number] Age/Sex: 24 / F ADM Date: 5 Loc: ER Room: Type: [facility] ER Attending Dr: Ordering Provider: Yaritza Bauer APRN Date of Service: 02/18/25 US/US OB <= 14 weeks fetus: Abdominal Pain ([id number]) US/US OB transvaginal: R/O ECTOPIC Copies to: [...] Camacho M.D. 02/18/2025 8:45 PM [facility]ation [facility] Tech: Roselia Cueva Transcribed By: REMINGTON 02/18/252044 Dictated By: Michael Camacho DO 02/18/252034 Signed By: 02/18/252044 [facility] 01-08-2025 Telephone encounter Note Patient phones requesting refills as follows: BERENICE: 01/04/2023 FOV: 02/19/2025 Requested Prescriptions Pending Prescriptions Disp Refills clindamycin (CLEOCIN) 1 % external solution 60 mL 0 Sig: APPLY TO AFFECTED AREAS ON FACE ONCE A DAY Please review and advise. Liz Oswald MA [facility] 01-08-2025 Miscellaneous Notes Patient phones requesting refills as follows: BERENICE: 01/04/2023 FOV: 02/19/2025 Requested Prescriptions Pending Prescriptions Disp Refills clindamycin (CLEOCIN) 1 % external solution 60 mL 0 Sig: APPLY TO AFFECTED AREAS ON FACE ONCE A DAY Please review and advise. Liz Oswald MA documented in this encounter [facility] 01-07-2025 Telephone encounter Note Temporary refill until patient is seen as it has been greater than 1 year since last appointment. Please call patient and schedule a follow up appointment for acne within next 2 months. Mary Ann Levin MD [facility] 01-07-2025 Miscellaneous Notes Temporary refill until patient is seen as it has been greater than 1 year since last appointment. Please call patient and schedule a follow up appointment for acne within next 2 months. Mary Ann Levin MD Patient phones requesting refills as follows: BERENICE: 08/16/23 Patient will need a follow up appointment, routed to medical scheduler. Requested Prescriptions Pending Prescriptions Disp Refills clindamycin (CLEOCIN) 1 % external solution [Pharmacy Med Name: CLINDAMYCIN PH 1% SOLUTION] 60 mL 3 Sig: APPLY TO AFFECTED AREAS ON FACE ONCE A DAY Please review and advise. RONALD Montenegro documented in this encounter [facility] 01-07-2025 Telephone encounter Note Patient phones requesting refills as follows: BERENICE: 08/16/23 Patient will need a follow up appointment, routed to medical scheduler. Requested Prescriptions Pending Prescriptions Disp Refills clindamycin (CLEOCIN) 1 % external solution [Pharmacy Med Name: CLINDAMYCIN PH 1% SOLUTION] 60 mL 3 Sig: APPLY TO AFFECTED AREAS ON FACE ONCE A DAY Please review and advise. RONALD Montenegro [facility] 11-22-2024 Telephone encounter Note Refill of concerta [facility] mg [facility] 11-22-2024 Miscellaneous Notes Refill of concerta 18 mg [facility] documented in this encounter [facility] 11-04-2024 History of Present illness Narrative [facility] [address] [place] [address], [address] [facility] [id number] SUBJECTIVE: Patient ID (2000): Charis Allen is [...] 11/02/2017 Performed by Karthikeyan Lopez MD at [facility] APPENDECTOMY 2016 APPLICATION GRAFT PAPER PATCH EAR Right 06/04/2024 Performed by Mich Verde MD at [facility] BRAIN SURGERY CRANIOTOMY CHIARI DECOMPRESSION / N/A 01/27/2023 Performed by Ajay Barbosa MD at [facility] CYSTOSCOPY RETROGRADE PYELOGRAM Bilateral 11/30/2022 Performed by Margot Hernandez MD at [facility] DILATION AND CURETTAGE OF UTERUS 07/31/2023 DIRECT LARYNGOSCOPY WITH BIOPSY BASE OF TONGUE LESION Right 08/27/2024 Performed by Luis Enrique Jennings DO at [facility] EUSTACHIAN TUBE DILATION Bilateral 11/02/2017 Performed by Karthikeyan Lopez MD at [facility] POSTERIOR LAMINECTOMY CERVICAL SINGLE LEVEL / C1 N/A 01/27/2023 Performed by Ajay Barbosa MD at [facility] REMOVAL TUBE EAR Right 06/04/2024 Performed by Mich Verde MD at [facility] TONSILLECTOMY TYMPANOSTOMY TUBE PLACEMENT TYMPANOTOMY WITH PERMANENET VENT TUBE INSERTION. TYMPANOTOMY WITH NONPERMANENT TUBE IN LEFT EAR Bilateral 11/02/2017 Performed by Karthikeyan Lopez MD at [facility] Family History Problem Relation Age of Onset [...] History Narrative Lives alone. 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 Social Drivers of Health Financial Resource Strain: Patient Declined (11/12/2023) Received from [facility] [employer] [facility] Overall Financial Resource Strain (CARDIA) Difficulty of Paying Living Expenses: Patient declined Food Insecurity: No Food Insecurity (08/20/2024) Hunger Screening Food Insecurity - Worry: Never True Food Insecurity - Inability: Never True Transportation Needs: Patient Declined (11/12/2023) Received from [facility] [employer] [facility] PRAPARE - Transportation Lack of Transportation (Medical): Patient declined Lack of Transportation (Non-Medical): Patient declined Physical Activity: Patient Declined (11/12/2023) Received from [facility] [employer], [facility] Exercise Vital Sign Days of Exercise per Week: Patient declined Minutes of Exercise per Session: Patient declined Stress: Not on file Social Connections: Unknown (11/12/2023) Received from [facility], [facility] Social Connection and Isolation Panel [NHANES] Frequency of Communication with Friends and Family: Patient declined Frequency of Social Gatherings with Friends and Family: Patient declined Attends Faith Services: Not on file Active Member of Clubs or Organizations: Patient declined Attends Club or Organization Meetings: Patient declined Marital Status: Patient declined Interpersonal Safety: Patient Declined (11/12/2023) Received from [facility], [facility] Humiliation, Afraid, Rape, and Kick questionnaire Fear [...] attention deficit disorder with hyperactivity. methylPREDNISolone (MEDROL, BRAFDORD,) 4 mg tablet follow package directions (Patient [...] and in the presence of Luis Enrique Jenninsg DO by Francisco Garcia (scribe). Francisco Garcia [...] this chart were generated using voice recognition [employer] dictation software. Although every effort was made to ensure the accuracy of this automated entrance guard, some errors in entrance guard may have occurred. documented in this encounter [facility] 11-04-2024 Instructions Francisco Garcia - 11/04/2024 1:45 PM EST - Patient has no pain and is eating/drinking per norm. Biopsy site is well-healed on exam. - Return as needed. documented in this encounter [facility] 10-28-2024 History of Present illness Narrative UP documented in this encounter [facility] 10-23-2024 History of Present illness Narrative Images [...] response to treatment. documented in this encounter [facility] 10-21-2024 History of Present illness Narrative Images [...] Insecurity: No Food Insecurity (08/20/2024) Received from [facility] Hunger Screening Within the past 12 [...] with Friends and Family: Patient declined Attends Faith Services: Not on file Active Member of [...] tablet, Rfl: 0 documented in this encounter [facility] 09-12-2024 Telephone encounter Note Patient phones requesting refills as follows: BERENICE: 08/16/2023 FOV: 10/10/2024 Requested Prescriptions Pending Prescriptions Disp Refills clindamycin (CLEOCIN) 1 % external solution [Pharmacy Med Name: CLINDAMYCIN PH 1% SOLUTION] 60 mL 3 Sig: APPLY TO AFFECTED AREAS ON FACE ONCE A DAY Please review and advise. Otilia Gomez LPN [facility] 09-12-2024 Miscellaneous Notes Patient phones requesting refills as follows: BERENICE: 08/16/2023 FOV: 10/10/2024 Requested Prescriptions Pending Prescriptions Disp Refills clindamycin (CLEOCIN) 1 % external solution [Pharmacy Med Name: CLINDAMYCIN PH 1% SOLUTION] 60 mL 3 Sig: APPLY TO AFFECTED AREAS ON FACE ONCE A DAY Please review and advise. Otilia Gomez LPN documented in this encounter [facility] 09-11-2024 History of Present illness Narrative Images from the original note were not included. [facility] [address] [place] [address], [address] [place] [id number] SUBJECTIVE: Patient ID (2000): Charis Allen is [...] 11/02/2017 Performed by Karthikeyan Lopez MD at [facility] APPENDECTOMY 2016 APPLICATION GRAFT PAPER PATCH EAR Right 06/04/2024 Performed by Mich Verde MD at [facility] CRANIOTOMY CHIARI DECOMPRESSION / N/A 01/27/2023 Performed by Ajay Barbosa MD at [facility] CYSTOSCOPY RETROGRADE PYELOGRAM Bilateral 11/30/2022 Performed by Margot Hernandez MD at [facility] DILATION AND CURETTAGE OF UTERUS 07/31/2023 DIRECT LARYNGOSCOPY WITH BIOPSY BASE OF TONGUE LESION Right 08/27/2024 Performed by Luis Enrique Jennings DO at [facility] EUSTACHIAN TUBE DILATION Bilateral 11/02/2017 Performed by Karthikeyan Lopez MD at [facility] POSTERIOR LAMINECTOMY CERVICAL SINGLE LEVEL / C1 N/A 01/27/2023 Performed by Ajay Barbosa MD at [facility] REMOVAL TUBE EAR Right 06/04/2024 Performed by Mich Verde MD at [facility] TONSILLECTOMY TYMPANOSTOMY TUBE PLACEMENT TYMPANOTOMY WITH PERMANENET VENT TUBE INSERTION. TYMPANOTOMY WITH NONPERMANENT TUBE IN LEFT EAR Bilateral 11/02/2017 Performed by Karthikeyan Lopez MD at [facility] Family History Problem Relation Age of Onset [...] History Narrative Lives alone. 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 Social Drivers of Health Financial Resource Strain: Patient Declined (11/12/2023) Received from [facility], [facility] Overall Financial Resource Strain (CARDIA) Difficulty of Paying Living Expenses: Patient declined Food Insecurity: No Food Insecurity (08/20/2024) Hunger Screening Food Insecurity - Worry: Never True Food Insecurity - Inability: Never True Transportation Needs: Patient Declined (11/12/2023) Received from [facility] PRAPARE - Transportation Lack of Transportation (Medical): Patient declined Lack of Transportation (Non-Medical): Patient declined Physical Activity: Patient Declined (11/12/2023) Received from [facility] Exercise Vital Sign Days of Exercise per Week: Patient declined Minutes of Exercise per Session: Patient declined Stress: Not on file Social Connections: Unknown (11/12/2023) Received from [facility] Social Connection and Isolation Panel [NHANES] Frequency of Communication with Friends and Family: Patient declined Frequency of Social Gatherings with Friends and Family: Patient declined Attends Faith Services: Not on file Active Member of Clubs or Organizations: Patient declined Attends Club or Organization Meetings: Patient declined Marital Status: Patient declined Interpersonal Safety: Patient Declined (11/12/2023) Received from [facility] Humiliation, Afraid, Rape, and Kick questionnaire Fear [...] this chart were generated using voice recognition [employer] dictation software. Although every effort was made to ensure the accuracy of this automated entrance guard, some errors in entrance guard may have occurred. documented [facility] encounter [facility]24 Instructions Francisco Garcia - 09/11/2024 10:30 AM EST - Reviewed patient's surgical pathology from direct laryngoscopy with biopsy of base of tongue lesion. This showed benign papillomatous neoplasm. - On exam, biopsy site healing well with granulation/exudates from cautery. - Return to ENT in 4-6 weeks if needed to check biopsy site. documented in this encounter [facility] 09-10-2024 History of Present illness Narrative Images [...] 11/02/2017 Performed by Karthikeyan Lopez MD at [facility] APPENDECTOMY 2016 APPLICATION GRAFT PAPER PATCH EAR Right 06/04/2024 Performed by Mich Verde MD at [facility] CRANIOTOMY CHIARI DECOMPRESSION / N/A 01/27/2023 Performed by Ajay Barbosa MD at [facility] CYSTOSCOPY RETROGRADE PYELOGRAM Bilateral 11/30/2022 Performed by Margot Hernandez MD at [facility] DILATION AND CURETTAGE OF UTERUS 07/31/2023 DIRECT LARYNGOSCOPY WITH BIOPSY BASE OF TONGUE LESION Right 08/27/2024 Performed by Luis Enrique Jennings DO at [facility] EUSTACHIAN TUBE DILATION Bilateral 11/02/2017 Performed by Karthikeyan Lopez MD at [facility] POSTERIOR LAMINECTOMY CERVICAL SINGLE LEVEL / C1 N/A 01/27/2023 Performed by Ajay Barbosa MD at [facility] REMOVAL TUBE EAR Right 06/04/2024 Performed by Mich Verde MD at [facility] TONSILLECTOMY TYMPANOSTOMY TUBE PLACEMENT TYMPANOTOMY WITH PERMANENET VENT TUBE INSERTION. TYMPANOTOMY WITH NONPERMANENT TUBE IN LEFT EAR Bilateral 11/02/2017 Performed by Karthikeyan Lopez MD at [facility] SOCIAL HISTORY Social History Tobacco Use Smoking [...] Continue watchful monitoring. Visit Diagnosis and Orders: Charsi was seen today for post-op. Diagnoses and all orders for this visit: Postop check Scribe Statement: Scribed for and in the presence of MICH VERDE MD by [employer]. Jennifer Martin MA 09/10/24 1605 documented in this encounter [facility] 09-10-2024 Instructions Linette Gurrola - 09/10/2024 4:15 PM EST - Microscopic examination was completed in office today. The ears appear to be healing well postoperatively. Cerumen was removed for the bilateral canals. - Continue watchful monitoring. documented in this encounter [facility] 09-10-2024 History of Present illness Narrative AUDIOLOGIC [...] other thresholds stable. Reliability: good Speech Audiometry: SRT/LOGGING ENGINEER in good agreement WRS: Right Ear: Excellent (100%) Left Ear: Excellent (100%) RECOMMENDATIONS: Follow up with Dr. Mich Verde Retest as needed Patrick Hanley, [employer] [facility]-[employer] Employment Specialist/Program Manager documented in this encounter [facility] 09-04-2024 Miscellaneous Notes Called patient and discussed [...] this encounter [facility] 09-04-2024 Telephone encounter Note Called patient and [...] 1030 am. [facility] 09-03-2024 History of Present illness Narrative To help with acute post op swelling. documented in this encounter [facility] 08-29-2024 Miscellaneous Notes Patient called 08/29 because she needs a return to work note. Patient had a biopsy done on 08/27 and will be going back to work on 08/30. Patient said it is ok [facility] Is patient okay to go back to work 08/30/24? As long as she is no longer taking norco, she may return to work. Please provide letter. Thank you. Left a message for the patient informing her that as long as she is no longer taking the Renner pain medication she can return to work tomorrow 08/30/24. I will upload this letter to her [employer]. Asked her to give the office a call back if she is still taking her Renner and we can correct the note for a later date. documented in this encounter [facility] 08-29-2024 Telephone encounter Note Patient called 08/29 because she needs a return to work note. Patient had a biopsy done on 08/27 and will be going back to work on 08/30. Patient said it is ok to send it to her [facility] 08-29-2024 Telephone encounter Note Is patient okay to go back to work 08/30/24? [facility] 08-29-2024 Telephone encounter Note As long as she is no longer taking norco, she may return to work. Please provide letter. Thank you. [facility] 08-29-2024 Telephone encounter Note Left a message for the patient informing her that as long as she is no longer taking the Renner pain medication she can return to work tomorrow 08/30/24. I will upload this letter to her [facility]. Asked her to give the office a call back if she is still taking her Renner and we can correct the note for a later date. [facility] 08-20-2024 Instructions Formatting of th is note might be different from the original. Your surgery/procedure is scheduled at [facility] on 08/27/2024 at 1245p Arrival Time 1045a [facility] Address: [address] [place] [address], [address] [address] in the Emergency Center Parking lot. Report to the commercial front load operator in the Emergency/Surgery Registration lobby of the hospital. Notify your SURGEON if you develop any illness such as a cold, cough, fever, sore throat, vomiting or are hospitalized between now and your surgery. Please call Pre-Admission Clinic at [phone] if you have any questions prior to surgery. For questions the morning of surgery, call the Pre-op Department at [phone]. Medication Instructions (Do not stop your medications [...] would like to schedule therapy at a [facility] facility, please call [phone] ([phone]). Do not use lotions, creams, powders, perfume, make up, cologne or after-shaves day of surgery. Remove ALL jewelry including wedding rings, body piercings, hair extensions that contain metal, nail swazi, make-up, and contact lens. You may brush your teeth the morning of surgery, but do not swallow the water. Wear your dentures and partial plates to the hospital (no adhesive). Shower the night the before. If applicable, use the CHG (chlorhexidine gluconate) soap or wipes. Please be advised, [facility] [place] has transitioned to a cashless payment system. [...] RIGHTS AND RESPONSIBILITIES As a patient at [facility], you have the right to: Receive medical care and be informed of who is taking care of you Be treated with dignity and respect Have a family member/product support sales representative of choice and your physician notified of your admission Receive information and actively participate in decisions about your care and treatment Refuse care, treatment and services Decide who may provide your support and speak for you Access catholic and spiritual services Participate in ethical issues [...] of hospital charges and payment methods Patient/patient product support sales representative responsibilities are to: Provide information about health status to facilitate care, treatment and services Follow the treatment, plan, keep appointments and speak up when you do not understand the plan Respect the rights of other patients and healthcare personnel Follow organizational rules and regulations that support quality care and a safe environment Fulfill financial obligations as promptly as possible [facility] 08-20-2024 Miscellaneous Notes Your surgery/procedure is scheduled at [facility] on 08/27/2024 at 1245p Arrival Time 1045a [facility] Address: [address] [place] [address], [address] [address] in the Emergency Center Parking lot. Report to the commercial front load operator in the Emergency/Surgery Registration lobby of the hospital. Notify your SURGEON if you develop any illness such as a cold, cough, fever, sore throat, vomiting or are hospitalized between now and your surgery. Please call Pre-Admission Clinic at [phone] if you have any questions prior to surgery. For questions the morning of surgery, call the Pre-op Department at [phone]. Medication Instructions (Do not stop your medications [...] would like to schedule therapy at a [facility] facility, please call [phone] ([phone]). Do not use lotions, creams, powders, perfume, make up, cologne or after-shaves day of surgery. Remove ALL jewelry including wedding rings, body piercings, hair extensions that contain metal, nail swazi, make-up, and contact lens. You may brush your teeth the morning of surgery, but do not swallow the water. Wear your dentures and partial plates to the hospital (no adhesive). Shower the night the before. If applicable, use the CHG (chlorhexidine gluconate) soap or wipes. Please be advised, [employer] [facility] has transitioned to a cashless payment system. [...] RIGHTS AND RESPONSIBILITIES As a patient at [facility], you have the right to: Receive medical care and be informed of who is taking care of you Be treated with dignity and respect Have a family member/product support sales representative of choice and your physician notified of your admission Receive information and actively participate in decisions about your care and treatment Refuse care, treatment and services Decide who may provide your support and speak for you Access catholic and spiritual services Participate in ethical issues [...] of hospital charges and payment methods Patient/patient product support sales representative responsibilities are to: Provide information about [...] this encounter [facility] 08-17-2024 History of Present illness Narrative Flagyl documented in this encounter [facility] 08-13-2024 History of Present illness Narrative Images [...] for hormone balance. 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 documented in this encounter [facility] 08-07-2024 Miscellaneous Notes Surgery Scheduling Request 08/07/24 Patient: Charis Allen : 2000 Surgical Procedure(s): Direct laryngoscopy With biopsy of right base of tongue lesion Side(s): Right Anesthesia: General Surgery Time: 30 minutes Facility Preference: [facility] Post Op Destination: Outpatient Preop Anesthesia Appointment?: Yes Lab Testing?: No Medical Clearance Required?: No Does medical clearance include perioperative management of anticoagulants? No When should patient follow up after surgery? 1-[address] Jennings documented in this encounter [facility] 08-07-2024 Telephone encounter Note Surgery Scheduling Request 08/07/24 Patient: Charis Allen : 2000 Surgical Procedure(s): Direct laryngoscopy With biopsy of right base of tongue lesion Side(s): Right Anesthesia: General Surgery Time: 30 minutes Facility Preference: [facility] Post Op Destination: Outpatient Preop Anesthesia Appointment?: Yes Lab Testing?: No Medical Clearance Required?: No Does medical clearance include perioperative management of anticoagulants? No When should patient follow up after surgery? 1-[address] Jennings [facility] Work Phone: 08-07-2024 History of Present illness Narrative Images from the original note were not included. [facility] EAR, NOSE AND THROAT [address] [facility] [place] [facility] [id number] SUBJECTIVE: Patient ID ([id number]): Charis Allen is [...] has allergies but does not have an store clerk. She takes Claritin. She takes a throat [...] 11/02/2017 Performed by Karthikeyan Lopez MD at [facility] APPENDECTOMY 2016 APPLICATION GRAFT PAPER PATCH EAR Right 06/04/2024 Performed by Mich Verde MD at [facility] CRANIOTOMY CHIARI DECOMPRESSION / N/A 01/27/2023 Performed by Ajay Barbosa MD at [facility] CYSTOSCOPY RETROGRADE PYELOGRAM Bilateral 11/30/2022 Performed by Margot Hernandez MD at [facility] DILATION AND CURETTAGE OF UTERUS 07/31/2023 EUSTACHIAN TUBE DILATION Bilateral 11/02/2017 Performed by Karthikeyan Lopez MD at [facility] POSTERIOR LAMINECTOMY CERVICAL SINGLE LEVEL / C1 N/A 01/27/2023 Performed by Ajay Barbosa MD at [facility] REMOVAL TUBE EAR Right 06/04/2024 Performed by Mich Verde MD at [facility] TONSILLECTOMY TYMPANOSTOMY TUBE PLACEMENT TYMPANOTOMY WITH PERMANENET VENT TUBE INSERTION. TYMPANOTOMY WITH NONPERMANENT TUBE IN LEFT EAR Bilateral 11/02/2017 Performed by Karthikeyan Lopez MD at [facility] Family History Problem Relation Age of Onset [...] History Narrative Lives alone. 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 Social Drivers of Health Financial Resource Strain: Patient Declined (11/12/2023) Received from [facility] Overall Financial Resource Strain (CARDIA) Difficulty of Paying Living Expenses: Patient declined Food Insecurity: No Food Insecurity (08/20/2024) Hunger Screening Food Insecurity - Worry: Never True Food Insecurity - Inability: Never True Transportation Needs: Patient Declined (11/12/2023) Received from [facility] PRAPARE - Transportation Lack of Transportation (Medical): Patient declined Lack of Transportation (Non-Medical): Patient declined Physical Activity: Patient Declined (11/12/2023) Received from [facility] Exercise Vital Sign Days of Exercise per Week: Patient declined Minutes of Exercise per Session: Patient declined Stress: Not on file Social Connections: Unknown (11/12/2023) Received from [facility] Social Connection and Isolation Panel [NHANES] Frequency of Communication with Friends and Family: Patient declined Frequency of Social Gatherings with Friends and Family: Patient declined Attends Faith Services: Not on file Active Member of Clubs or Organizations: Patient declined Attends Club or Organization Meetings: Patient declined Marital Status: Patient declined Interpersonal Safety: Patient Declined (11/12/2023) Received from [facility] Humiliation, Afraid, Rape, and Kick questionnaire Fear [...] mL intravenous Q12H [facility] Caden Thomas MD REVIEW OF SYSTEMS: Review [...] laryngoscopy video with Tiesha. This showed a xrejz-twlo-pe-tongue lesion that is possibly a papilloma versus [...] be put on a regimen by an store clerk or undergo immunotherapy if indicated. She respectfully [...] covered benefit. Patient may call Jamil at [phone] to schedule surgery. - POSTOP INSTRUCTIONS You [...] concerns please do not hesitate to call [phone] Dr. Luis Enrique Jennings Scribe Statement: Scribed [...] this chart were generated using voice recognition [employer] dictation software. Although every effort was made to ensure the accuracy of this automated entrance guard, some errors in entrance guard may have occurred. documented in this encounter [facility] 08-07-2024 Instructions Francisco Garcia - 08/07/2024 10:00 AM EDT - Reviewed patient's CT neck soft tissue. This was unremarkable. - Reviewed patient's previous flexible laryngoscopy video with Tiesha. This showed a vmboh-fiso-kh-tongue lesion that is possibly a papilloma versus [...] be put on a regimen by an store clerk or undergo immunotherapy if indicated. She respectfully [...] covered benefit. Patient may call Jamil at [phone] to schedule surgery. - POSTOP INSTRUCTIONS You [...] concerns please do not hesitate to call [phone] Dr. [facility] Vu documented in this encounter [employer] [facility] 07-25-2024 Instructions Olga Thompson MA - 07/25/2024 [...] used in shoes. documented in this encounter [facility] 07-25-2024 Note HNO ID: [id number] Author: ÁNGELA DELGADO DPM Service: ? Author [...] which included preparing to see the patient, kdls-[id number] patient care, completing clinical documentation, obtaining and/or reviewing separately obtained history, performing a medically appropriate examination, counseling and educating the patient/family/caregiver, ordering medications, tests and care coordination (not separately reported). Time did not include procedure time. I agree with the Chief Complaint, ROS, and Past Histories independently gathered by the clinical high school learning support teacher and the remaining scribed note accurately describes my personal service to the patient. This document has been created with the use of voice recognition technology. It may contain inaccuracies, misspellings, inaccurate syntax or inappropriate word context that escaped review. Ángela Delgado DPM [facility] 07-25-2024 History of Present illness Narrative [...] which included preparing to see the patient, mbmm-bd-[id number] patient care, completing clinical documentation, obtaining and/or reviewing separately obtained history, performing a medically appropriate examination, counseling and educating the patient/family/caregiver, ordering medications, tests and care coordination (not separately reported). Time did not include procedure time. I agree with the Chief Complaint, ROS, and Past Histories independently gathered by the clinical high school learning support teacher and the remaining scribed note accurately describes my personal service to the patient. This document has been created with the use of voice recognition technology. It may contain inaccuracies, misspellings, inaccurate syntax or inappropriate word context that escaped review. Ángela Delgado DPM documented in this encounter [facility] 07-17-2024 History of Present illness Narrative [...] Attention deficit hyperactivity disorder (ADHD), combined type ([facility]) - methylphenidate ER (Concerta) 18 MG CR [...] questions or concerns. documented in this encounter [facility] 07-17-2024 Miscellaneous Notes Returned patient's call. No answer, left message on machine to call back. documented in this encounter [facility] 07-17-2024 Telephone encounter Note Returned patient's call. No answer, left message on machine to call back. [facility] 07-15-2024 History of Present illness Narrative Patient [...] 11/02/2017 Performed by Karthikeyan Lopez MD at [facility] APPENDECTOMY 2016 APPLICATION GRAFT PAPER PATCH EAR Right 06/04/2024 Performed by Mich Verde MD at [facility] CRANIOTOMY CHIARI DECOMPRESSION / N/A 01/27/2023 Performed by Ajay Barbosa MD at [facility] CYSTOSCOPY RETROGRADE PYELOGRAM Bilateral 11/30/2022 Performed by Margot Hernandez MD at [facility] DILATION AND CURETTAGE OF UTERUS 07/31/2023 EUSTACHIAN TUBE DILATION Bilateral 11/02/2017 Performed by Karthikeyan Lopez MD at [facility] POSTERIOR LAMINECTOMY CERVICAL SINGLE LEVEL / C1 N/A 01/27/2023 Performed by Ajay Barbosa MD at [facility] REMOVAL TUBE EAR Right 06/04/2024 Performed by Mich Verde MD at [facility] TONSILLECTOMY TYMPANOSTOMY TUBE PLACEMENT TYMPANOTOMY WITH PERMANENET VENT TUBE INSERTION. TYMPANOTOMY WITH NONPERMANENT TUBE IN LEFT EAR Bilateral 11/02/2017 Performed by Karthikeyan Lopez MD at [facility] SOCIAL HISTORY Social History Tobacco Use [...] this encounter [facility] 07-15-2024 Instructions Gm Garcia - 07/15/2024 3:30 PM EDT - Microscopic examination was completed in office today. The ears appear generally healthy. - Continue watchful monitoring. - Follow-up with audiogram . documented in this encounter [facility] 07-03-2024 History of Present illness Narrative Images from the original note were not included. [facility] PHYSICIANS EAR, NOSE AND THROAT [address] [place] [address] [place] [id number] SUBJECTIVE: Patient ID (2002): Charis Allen is [...] history of GERD. 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 HISTORY: Past Medical History: Diagnosis Date Cerebellar tonsillar ectopia (CMS-HCC) Concussion Multiple Dizziness Dysfunction of both eustachian tubes Head injury 2011 With LOC Headache History of chicken pox 2012 HL (hearing loss) Past Surgical History: Procedure Laterality Date ADENOIDECTOMY Bilateral 11/02/2017 Performed by Karthikeyan Lopez MD at [facility] APPENDECTOMY 2016 APPLICATION GRAFT PAPER PATCH EAR Right 06/04/2024 Performed by Mich Verde MD at [facility] CRANIOTOMY CHIARI DECOMPRESSION / N/A 01/27/2023 Performed by Ajay Barbosa MD at [facility] CYSTOSCOPY RETROGRADE PYELOGRAM Bilateral 11/30/2022 Performed by Margot Hernandez MD at [facility] DILATION AND CURETTAGE OF UTERUS 07/31/2023 EUSTACHIAN TUBE DILATION Bilateral 11/02/2017 Performed by Karthikeyan Lopez MD at [facility] POSTERIOR LAMINECTOMY CERVICAL SINGLE LEVEL / C1 N/A 01/27/2023 Performed by Ajay Barbosa MD at [facility] REMOVAL TUBE EAR Right 06/04/2024 Performed by Mich Verde MD at [facility] TONSILLECTOMY TYMPANOSTOMY TUBE PLACEMENT TYMPANOTOMY WITH PERMANENET VENT TUBE INSERTION. TYMPANOTOMY WITH NONPERMANENT TUBE IN LEFT EAR Bilateral 11/02/2017 Performed by Karthikeyan Lopez MD at [facility] Family History Problem Relation Age of Onset [...] History Narrative Lives alone. 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 of Health Financial Resource Strain: Patient Declined (11/12/2023) Received from [facility], [facility] Overall Financial Resource Strain (CARDIA) Difficulty of Paying Living Expenses: Patient declined Food Insecurity: No Food Insecurity (05/21/2024) Hunger Screening Food Insecurity - Worry: Never True Food Insecurity - Inability: Never True Transportation Needs: Patient Declined (11/12/2023) Received from [facility] PRAPARE - Transportation Lack of Transportation (Medical): Patient declined Lack of Transportation (Non-Medical): Patient declined Physical Activity: Patient Declined (11/12/2023) Received from [facility] Exercise Vital Sign Days of Exercise per Week: Patient declined Minutes of Exercise per Session: Patient declined Stress: Not on file Social Connections: Unknown (11/12/2023) Received from [facility] Social Connection and Isolation Panel [NHANES] Frequency of Communication with Friends and Family: Patient declined Frequency of Social Gatherings with Friends and Family: Patient declined Attends Faith Services: Not on file Active Member of Clubs or Organizations: Patient declined Attends Club or Organization Meetings: Patient declined Marital Status: Patient declined Interpersonal Safety: Patient Declined (11/12/2023) Received from [facility] Humiliation, Afraid, Rape, and Kick questionnaire Fear [...] year, odynophagia Post-operative Diagnosis: same Clinician: Tiesha Batesland, PA-C Anesthesia: Oxymetazoline and 4% Lidocaine Endoscopy [...] of tongue with mild asymmetry and right lyjj-sg-rhrwsr lesion, possible papilloma versus other, erythema of [...] to ensure the accuracy of this automated entrance guard, some errors in entrance guard may have occurred. Tiesha Rai PA-C 07/03/24 1707 Tiesha Rai PA-C 07/03/24 1719 documented in this encounter [facility] 07-03-2024 Instructions Tiesha Rai PA-C - 07/03/2024 [...] the throat directly. Should I see a playground director (stomach specialist)? (GI) At some point, you may be referred to a playground director, either for help with diagnosis or to [...] Breads Commercial whole grain or enriched bread, Romansh bread, hamburger buns, hard or plain rolls, saltines, vanessa crackers, jose toast, Gambian muffins and bagels. Homemade biscuits, muffins, waffles, [...] adapted from/provided by [facility]. documented in this encounter [facility] 06-17-2024 Miscellaneous Notes Pt lm for refill of concerta [facility] [place] documented in this encounter [facility] 06-17-2024 Telephone encounter Note Pt lm for refill of concerta [facility] [place] [facility] 05-21-2024 History and physical note PRE-ADMISSION TESTING [...] 11/02/2017 Performed by Karthikeyan Lopez MD at [facility] APPENDECTOMY 2016 CRANIOTOMY CHIARI DECOMPRESSION / N/A 01/27/2023 Performed by Ajay Barbosa MD at [facility] CYSTOSCOPY RETROGRADE PYELOGRAM Bilateral 11/30/2022 Performed by Margot Hernandez MD at [facility] DILATION AND CURETTAGE OF UTERUS 07/31/2023 EUSTACHIAN TUBE DILATION Bilateral 11/02/2017 Performed by Karthikeyan Lopez MD at [facility] POSTERIOR LAMINECTOMY CERVICAL SINGLE LEVEL / C1 N/A 01/27/2023 Performed by Ajay Barbosa MD at [facility] TONSILLECTOMY TYMPANOSTOMY TUBE PLACEMENT TYMPANOTOMY WITH PERMANENET VENT TUBE INSERTION. TYMPANOTOMY WITH NONPERMANENT TUBE IN LEFT EAR Bilateral 11/02/2017 Performed by Karthikeyan Lopez MD at [facility] FAMILY HISTORY: Family History Problem Relation Age [...] History Narrative Lives alone. 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 of Health Financial Resource Strain: Patient Declined (11/12/2023) [facility] Overall Financial Resource Strain (CARDIA) Difficulty of Paying Living Expenses: Patient declined Food Insecurity: No Food Insecurity (05/21/2024) Hunger Screening Food Insecurity - Worry: Never True Food Insecurity - Inability: Never True Transportation Needs: Patient Declined (11/12/2023) Re[facility] - Transportation Lack of Transportation (Medical): Patient declined Lack of Transportation (Non-Medical): Patient declined Physical Activity: Patient Declined (11/12/2023) Re[facility] Exercise Vital Sign Days of Exercise per Week: Patient declined Minutes of Exercise per Session: Patient declined Stress: Not on file Social Connections: Unknown (11/12/2023) Received from [facility] Social Connection and Isolation Panel [NHANES] Frequency of Communication with Friends and Family: Patient declined Frequency of Social Gatherings with Friends and Family: Patient declined Attends Faith Services: Not on file Active Member of Clubs or Organizations: Patient declined Attends Club or Organization Meetings: Patient declined Marital Status: Patient declined Interpersonal Safety: Patient Declined (11/12/2023) Received from [facility], [facility] Humiliation, Afraid, Rape, and Kick questionnaire Fear [...] most recent lab values available in [facility] at the time of the office [...] 05/21/24 1354 [facility] 05-21-2024 History and physical note PRE-ADMISSION TESTING [...] 11/02/2017 Performed by Karthikeyan Lopez MD at [facility] APPENDECTOMY 2016 CRANIOTOMY CHIARI DECOMPRESSION / N/A 01/27/2023 Performed by Ajay Barbosa MD at [facility] CYSTOSCOPY RETROGRADE PYELOGRAM Bilateral 11/30/2022 Performed by Margot Hernandez MD at [facility] DILATION AND CURETTAGE OF UTERUS 07/31/2023 EUSTACHIAN TUBE DILATION Bilateral 11/02/2017 Performed by Karthikeyan Lopez MD at [facility] POSTERIOR LAMINECTOMY CERVICAL SINGLE LEVEL / C1 N/A 01/27/2023 Performed by Ajay Barbosa MD at [facility] TONSILLECTOMY TYMPANOSTOMY TUBE PLACEMENT TYMPANOTOMY WITH PERMANENET VENT TUBE INSERTION. TYMPANOTOMY WITH NONPERMANENT TUBE IN LEFT EAR Bilateral 11/02/2017 Performed by Karthikeyan Lopez MD at [facility] FAMILY HISTORY: Family History Problem Relation Age [...] History Narrative Lives alone. 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 of Health Financial Resource Strain: Patient Declined (11/12/2023) Received from [facility] Overall Financial Resource Strain (CARDIA) Difficulty of Paying Living Expenses: Patient declined Food Insecurity: No Food Insecurity (05/21/2024) Hunger Screening Food Insecurity - Worry: Never True Food Insecurity - Inability: Never True Transportation Needs: Patient Declined (11/12/2023) Received from [facility] PRAPARE - Transportation Lack of Transportation (Medical): Patient declined Lack of Transportation (Non-Medical): Patient declined Physical Activity: Patient Declined (11/12/2023) Received from [facility] Exercise Vital Sign Days of Exercise per Week: Patient declined Minutes of Exercise per Session: Patient declined Stress: Not on file Social Connections: Unknown (11/12/2023) Received from [facility] Social Connection and Isolation Panel [NHANES] Frequency of Communication with Friends and Family: Patient declined Frequency of Social Gatherings with Friends and Family: Patient declined Attends Faith Services: Not on file Active Member of Clubs or Organizations: Patient declined Attends Club or Organization Meetings: Patient declined Marital Status: Patient declined Interpersonal Safety: Patient Declined (11/12/2023) Received from [facility] Humiliation, Afraid, Rape, and Kick questionnaire Fear [...] most recent lab values available in [facility] at the time of the office [...] [place]te 05/21/24 1354 documented in this encounter [facility] 05-21-2024 Instructions Di Briscoe RN - 05/21/2024 1:15 PM EDT Your surgery/procedure is scheduled at [facility] on June 04, 2024 at 9:00 am Arrival Time 7:00 am [facility] Address: [address] [place] [address]. [place] [address] [address] in [address] Parking lot located on [facility]. Report to the Entrance B. Check in at the information desk the surgery. The waiting room located on the second floor. If you have any questions prior to surgery, please call Pre-Admission Clinic at [phone] between 7:30 am and 4:30 pm Monday through Monday. If you have questions the morning of surgery, please call the Pre-op Department at [phone]. Notify your SURGEON if you develop any [...] piercings ,hair extensions that contain metal, nail swazi, make-up, and contact lens. You may brush [...] RIGHTS AND RESPONSIBILITIES As a patient at [facility], you have the right to: Receive medical care and be informed of who is taking care of you Be treated with dignity and respect Have a family member/product support sales representative of choice and your physician notified of your admission Receive information and actively participate in decisions about your care and treatment Refuse care, treatment and services Decide who may provide your support and speak for you Access catholic and spiritual services Participate in ethical issues [...] of hospital charges and payment methods Patient/patient product support sales representative responsibilities are to: Provide information about [...] this encounter [facility] 03-18-2024 History of Present illness Narrative Patient [...] 11/02/2017 Performed by Karthikeyan Lopez MD at [facility] APPENDECTOMY age 15 CRANIOTOMY CHIARI DECOMPRESSION / N/A 01/27/2023 Performed by Ajay Barbosa MD at [facility] CYSTOSCOPY RETROGRADE PYELOGRAM Bilateral 11/30/2022 Performed by Margot Hernandez MD at [facility] DILATION AND CURETTAGE OF UTERUS 07/31/2023 EUSTACHIAN TUBE DILATION Bilateral 11/02/2017 Performed by Karthikeyan Lopez MD at [facility] POSTERIOR LAMINECTOMY CERVICAL SINGLE LEVEL / C1 N/A 01/27/2023 Performed by Ajay Barbosa MD at [facility] TONSILLECTOMY TYMPANOSTOMY TUBE PLACEMENT TYMPANOTOMY WITH PERMANENET VENT TUBE INSERTION. TYMPANOTOMY WITH NONPERMANENT TUBE IN LEFT EAR Bilateral 11/02/2017 Performed by Karthikeyan Lopez MD at [facility] SOCIAL HISTORY Social History Tobacco Use Smoking [...] Follow-up post op. Visit Diagnosis and Orders: hCaris was seen today for earache. Diagnoses and [...] MA 03/18/24 1424 documented in this encounter [facility] 03-18-2024 Instructions Linette Gurrola - 03/18/2024 2:30 PM EDT - Patient prefers to have right tube surgically removed. We discussed the chances of perforation remaining from PE tube, which may resolve with paper patch placement. Indications, risks, benefits, and possible complications were discussed. - Continue to initiate ear drops; Ciprodex sent to pharmacy. - Follow-up post op. documented in this encounter [facility] 03-06-2024 History of Present illness Narrative [facility] [address] [facility] [id number] SUBJECTIVE: Patient ID (2002): Charis Allen is [...] 11/02/2017 Performed by Karthikeyan Lopez MD at [facility] APPENDECTOMY age 15 CRANIOTOMY CHIARI DECOMPRESSION / N/A 01/27/2023 Performed by Ajay Barbosa MD at [facility] CYSTOSCOPY RETROGRADE PYELOGRAM Bilateral 11/30/2022 Performed by Margot Hernandez MD at [facility] DILATION AND CURETTAGE OF UTERUS 07/31/2023 EUSTACHIAN TUBE DILATION Bilateral 11/02/2017 Performed by Karthikeyan Lopez MD at [facility] POSTERIOR LAMINECTOMY CERVICAL SINGLE LEVEL / C1 N/A 01/27/2023 Performed by Ajay Barbosa MD at [facility] TONSILLECTOMY TYMPANOSTOMY TUBE PLACEMENT TYMPANOTOMY WITH PERMANENET VENT TUBE INSERTION. TYMPANOTOMY WITH NONPERMANENT TUBE IN LEFT EAR Bilateral 11/02/2017 Performed by Karthikeyan Lopez MD at [facility] Family History Problem Relation Age of Onset [...] History Narrative Lives alone. 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 of Health Financial Resource Strain: Patient Declined (11/12/2023) Received from [facility] Overall Financial Resource Strain (CARDIA) Difficulty of Paying Living Expenses: Patient declined Food Insecurity: Patient Declined (11/12/2023) Received from [facility] Hunger Vital Sign Worried About Running Out of Food in the Last Year: Patient declined Ran Out of Food in the Last Year: Patient declined Transportation Needs: Patient Declined (11/12/2023) Received from [facility] PRAPARE - Transportation Lack of Transportation (Medical): Patient declined Lack of Transportation (Non-Medical): Patient declined Physical Activity: Patient Declined (11/12/2023) Received from [facility] Exercise Vital Sign Days of Exercise per Week: Patient declined Minutes of Exercise per Session: Patient declined Stress: Not on file Social Connections: Unknown (11/12/2023) Received from [facility] Social Connection and Isolation Panel [NHANES] Frequency of Communication with Friends and Family: Patient declined Frequency of Social Gatherings with Friends and Family: Patient declined Attends Faith Services: Not on file Active Member of Clubs or Organizations: Patient declined Attends Club or Organization Meetings: Patient declined Marital Status: Patient declined Interpersonal Safety: Patient Declined (11/12/2023) [facility] Humiliation, Afraid, Rape, and Kick questionnaire Fear [...] this chart were generated using voice recognition [employer]Modal dictation software. Although every effort was made to ensure the accuracy of this automated entrance guard, some errors in entrance guard may have occurred. Tiesha Rai PA-C 03/06/24 2277 documented in this encounter [facility] 02-05-2024 Miscellaneous Notes Called and left voice mail to let patient know she needs to reschedule her appointment for 02/05/24 as provider is out ill documented in this encounter [facility] 02-05-2024 Telephone encounter Note Called and left voice mail to let patient know she needs to reschedule her appointment for 02/05/24 as provider is out ill [facility] 12-26-2023 Instructions Olga Thompson MA - 12/26/2023 [...] ensure normal healing. documented in this encounter [facility] 12-26-2023 Note HNO ID: [id number] Author: ÁNGELA DELGADO DPM Service: ? Author [...] the overlying eponychium and underlying nailbed. An Gambian anvil was used to cut the offending [...] VERIFIED(optional for EMERG (more content not included)... [facility] 12-26-2023 History of Present illness Narrative [...] the overlying eponychium and underlying nailbed. An Gambian anvil was used to cut the offending [...] which included preparing to see the patient, grar-dh-ngty patient care, completing clinical documentation, obtaining and/or reviewing separately obtained history, performing a medically appropriate examination, counseling and educating the patient/family/caregiver, ordering medications, tests, or procedures and care coordination (not separately reported). I agree with the Chief Complaint, ROS, and Past Histories independently gathered by the clinical high school learning support teacher and the remaining scribed note accurately describes my personal service to the patient. This document has been created with the use of voice recognition technology. It may contain inaccuracies, misspellings, inaccurate syntax or inappropriate word context that escaped review. Ángela Delgado DPM documented in this encounter [facility] 12-19-2023 History of Present illness Narrative [facility] [address] [facility] [id number] SUBJECTIVE: Patient ID (2002): Charis Allen is [...] October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 any alcohol or drug abuse patient.[facility] HospitalIn the event this information is protected by the Federal Confidentiality of Alcohol and Drug Abuse Patient Records regulations: The Federal rules restrict any use of the information to criminally investigate or prosecute any alcohol or drug abuse patient.[facility] HospitalIn the event this information is protected by the Federal Confidentiality of Alcohol and Drug Abuse Patient Records regulations: The Federal rules restrict any use of the information to criminally investigate or prosecute any alcohol or drug abuse patient.[facility] HospitalIn the event this information is protected by the Federal Confidentiality of Alcohol and Drug Abuse Patient Records regulations: The Federal rules restrict any use of the information to criminally investigate or prosecute any alcohol or drug abuse patient.[facility] HospitalIn the event this information is protected by the Federal Confidentiality of Alcohol and Drug Abuse Patient Records regulations: The Federal rules restrict any use of the information to criminally investigate or prosecute any alcohol or drug abuse patient.[facility] HospitalIn the event this information is protected by the Federal Confidentiality of Alcohol and Drug Abuse Patient Records regulations: The Federal rules restrict any use of the information to criminally investigate or prosecute any alcohol or drug abuse patient.[facility] HospitalIn the event this information is protected by the Federal Confidentiality of Alcohol and Drug Abuse Patient Records regulations: The Federal rules restrict any use of the information to criminally investigate or prosecute any alcohol or drug abuse patient.[facility] HospitalIn the event this information is protected by the Federal Confidentiality of Alcohol and Drug Abuse Patient Records regulations: The Federal rules restrict any use of the information to criminally investigate or prosecute any alcohol or drug abuse patient.[facility] HospitalIn the event this information is protected by the Federal Confidentiality of Alcohol and Drug Abuse Patient Records regulations: The Federal rules restrict any use of the information to criminally investigate or prosecute any alcohol or drug abuse patient.[facility] HospitalIn the event this information is protected by the Federal Confidentiality of Alcohol and Drug Abuse Patient Records regulations: The Federal rules restrict any use of the information to criminally investigate or prosecute any alcohol or drug abuse patient.[facility] HospitalIn the event this information is protected by the Federal Confidentiality of Alcohol and Drug Abuse Patient Records regulations: The Federal rules restrict any use of the information to criminally investigate or prosecute any alcohol or drug abuse patient.[facility] HospitalIn the event this information is protected by the Federal Confidentiality of Alcohol and Drug Abuse Patient Records regulations: The Federal rules restrict any use of the information to criminally investigate or prosecute any alcohol or drug abuse patient.[facility] Reason for Visit (unrecogniz ed section [...] HIGH MDM 60-74 MINUTES Dianna Villa PA-C [address] [place] [address] Referral ID Status Reason Start Date Expiration Date V isits Requested Visits Authorized [id number] Closed PCP Requested Referral 10/13/2022 10/13/2023 1 [...] Procedure [facility]ty Diagnoses / [facility] Diagnoses Cerebellar tonsillar ectopia (HCC) Procedures MRI BRAIN WO/W IVCON MRI BRAIN BRAIN STEM W/O W/CONTRAST MATERIAL Samples, MD Sreekanth [address] [id number] [facility] [place] [address] Referral ID Status Reason Start Date Expiration Date V isits Requested Visits Authorized [id number] Closed Auto-Generate d Referral 2022 11/17/2023 1 1 Specialty Diagnoses / [facility] MR IMAGING Diagnoses Thunderclap headache Procedures MRI BRAIN WO/W IVCON MRI BRAIN BRAIN STEM W/O W/CONTRAST MATERIAL Samples, MD Sreekanth [address] [id number] [facility] [place] [address] Referral ID Status Reason Start Date Expiration Date V isits Requested Visits Authorized [id number] Closed Auto-Generate d Referral 12/22/2021 10/08/2022 1 [...] Comments Refill Request 01/07/2025 Reason Comments Dizziness [place] light headed at work. Was told her [...] Care Teams (unrecognized sec tion and content) Instrument And Controls Technician Relationship Specialty Start Date End Date Kerry Jain [address] [place] [address] Nutrition 04/04/23 Instrument And Controls Technician Relationship Specialty Start Date End Date Kerry Jain RD [address] [place] [address] Nutrition 04/04/23 Instrument And Controls Technician Relationship Specialty Start Date End Date Kerry Jain RD [address] [place] [address] Nutrition 04/04/23 Instrument And Controls Technician Relationship Specialty Start Date End Date Kerry Jain RD [address] [place] [phone] Nutrition 04/04/23 Instrument And Controls Technician Relationship Specialty Start Date End Date Kerry Jain RD [address] [place] [address] Nutrition 04/04/23 Instrument And Controls Technician Relationship Specialty Start Date End Date Kerry Jain RD [address] [place] [address] Nutrition 04/04/23 Team Status: Active Member Role Status Dates Katie Thapa DO Primary Care Provider Active Team Status: Inactive Member Role Status Dates Katie Thapa DO Primary Care Provider Active Jona Vann MD Attending Provider Active Instrument And Controls Technician Relationship Specialty Start Date End Date Kerry Jain RD [address] [place] [address] [phone] Nutrition 04/04/23 Team Status: Inactive Member Role [...] Provider Active St art: November 08, 2023 Instrument And Controls Technician Relationship Specialty Start Date End Date Kerry Jain RD [address] [place], [place] [phone] Nutrition 04/04/23 Instrument And Controls Technician Relationship Specialty Start Date End Date Kerry Jain RD [address] [place], [place] [phone] Nutrition 04/04/23 Team Status: Inactive Member Role Status Dates Katie Thapa DO Primary Care Provider Active Start: June 27, 2024 End: June 28, 2024 Yung Nichols Jr, MD Emergency Provider Active Start: June 27, 2024 End: June 28, 2024 Instrument And Controls Technician Relationship Specialty Start Date End Date Anil Thapa DO [address] [place] [address] PCP - General Family Medicine 02/14/23 Instrument And Controls Technician Relationship Specialty Start Date End Date Anil Thapa DO [address] [place] [address] PCP - General Family Medicine 02/14/23 Instrument And Controls Technician Relationship Specialty Start Date End Date Anil Thapa DO [address] [place] [address] PCP - General Family Medicine 02/14/23 Instrument And Controls Technician Relationship Specialty Start Date End Date Anil Thapa DO [address] [place] [address] PCP - General Family Medicine 02/14/23 Instrument And Controls Technician Relationship Specialty Start Date End Date Crtalic-Kerry Coates, IVET [address] [place] [address] Nutrition 04/04/23 Instrument And Controls Technician Relationship Specialty Start Date End Date Anil Thapa DO [address] [place] [address] PCP - General Family Medicine 02/14/23 Instrument And Controls Technician Relationship Specialty Start Date End Date Anil Thapa DO [address] [place] [address] PCP - General Family Medicine 02/14/23 Instrument And Controls Technician Relationship Specialty Start Date End Date Anil Thapa Jr., DO PCP - General Family Medicine 09/23/23 Instrument And Controls Technician Relationship Specialty Start Date End Date Anil Thapa DO [address] [place] [address] PCP - General Family Medicine 02/14/23 Instrument And Controls Technician Relationship Specialty Start Date End Date Anil Thapa DO [address] [place] [address] PCP - General Family Medicine 02/14/23 Instrument And Controls Technician Relationship Specialty Start Date End Date Anil Thapa DO [address] [place] [address] PCP - General Family Medicine 10/01/23 Instrument And Controls Technician Relationship Specialty Start Date End Date Anil Thapa Jr., DO [address] [place] [address] PCP - General Family Medicine 09/23/23 Instrument And Controls Technician Relationship Specialty Start Date End Date Anil Thapa, DO [address] [place] [address] PCP - General Family Medicine 02/14/23 Instrument And Controls Technician Relationship Specialty Start Date End Date Anil Thapa Jr., DO [address] [place] [address] PCP - General Family Medicine 09/23/23 Instrument And Controls Technician Relationship Specialty Start Date End Date Anil Thapa Jr., DO [address] [place] [address] PCP - General Family Medicine 09/23/23 Instrument And Controls Technician Relationship Specialty Start Date End Date Ainl Thapa Jr., DO [address] [place] [address] PCP - General Family Medicine 09/23/23 Instrument And Controls Technician Relationship Specialty Start Date End Date Anil Thapa Jr., DO [address] [place] [address] PCP - General Family Medicine 09/23/23 Instrument And Controls Technician Relationship Specialty Start Date End Date Anil Thapa Jr., DO PCP - General Family Medicine 09/23/23 Instrument And Controls Technician Relationship Specialty Start Date End Date Anil Thapa Jr., DO PCP - General Family Medicine 09/23/23 Instrument And Controls Technician Relationship Specialty Start Date End Date Anil Thapa Jr., DO PCP - General Family Medicine 09/23/23 Instrument And Controls Technician Relationship Specialty Start Date End Date Anil Thapa Jr. DO PCP - General Family Medicine 09/23/23 Instrument And Controls Technician Relationship Specialty Start Date End Date Anil Thapa Jr., DO PCP - General Family Medicine 09/23/23 Instrument And Controls Technician Relationship Specialty Start Date End Date Anil Thapa Jr., DO PCP - General Family Medicine 09/23/23 Instrument And Controls Technician Relationship Specialty Start Date End Date Anil Thapa Jr., DO PCP - General Family Medicine 09/23/23 Instrument And Controls Technician Relationship Specialty Start Date End Date Anil Thapa DO [address] [place] [address] PCP - General Family Medicine 10/01/23 Instrument And Controls Technician Relationship Specialty Start Date End Date Kerry Butler RD [address] [place] [address] Nutrition 04/04/23 Instrument And Controls Technician Relationship Specialty Start Date End Date Kerry Butler RD [address] [place] [address] Nutrition 04/04/23 Instrument And Controls Technician Relationship Specialty Start Date End Date Anil Thapa DO [address] [place] [address] PCP - General Family Medicine 10/01/23 Instrument And Controls Technician Relationship Specialty Start Date End Date Anil Thapa DO [address] [place] [address] PCP - General Family Medicine 02/14/23 Team Status: Inactive Member Role Status Lupe Thapa DO Primary Care Provider Active Start: February 18, 2025 End: February 18, 2025 Yaritza Bauer APRN Emergency Provider Active Start: February 18, 2025 End: February 18, 2025 Instrument And Controls Technician Relationship Specialty Start Date End Date Anil Thapa DO [address] [place] [address] PCP - General Family Medicine 10/01/23 Instrument And Controls Technician Relationship Specialty Start Date End Date Anil Thapa Jr., DO [address] [place] [address] PCP - General Family Medicine 02/26/25 Instrument And Controls Technician Relationship Specialty Start Date End Date Anil Thapa DO [address] [place] [address] PCP - General Family Medicine 02/14/23 Team Status: Inactive Member Role Status Lupe Thapa DO Primary Care Provider Active Start: April 17, 2025 End: April 17, 2025 Chris White MD Attending Provider Active St art: April 17, 2025 End: April 17, 2025 Instrument And Controls Technician Relationship Specialty Start Date End Date Anil Thapa DO [address] [place] [address] PCP - General Family Medicine 02/14/23 Instrument And Controls Technician Relationship Specialty Start Date End Date Anil Thapa DO [address] [place] [address] PCP - General Family Medicine 02/14/23 Instrument And Controls Technician Relationship Specialty Start Date End Date Anil Thapa DO [address] [place] [address] PCP - General Family Medicine 02/14/23 Instrument And Controls Technician Relationship Specialty Start Date End Date Anil Thapa DO [address] [place] [address] PCP - General Family Medicine 02/14/23 Instrument And Controls Technician Relationship Specialty Start Date End Date Anil Thapa Dagoberto Sky DO [address] [facility] [address] [place] [address] PCP - General Family Medicine 02/26/25 Instrument And Controls Technician Relationship Specialty Start Date End Date GeethaAnil varghese DO [address] [facility] [place] [address] PCP - General Family Medicine 02/14/23 Goals (unrecognized section and content) Goals may [...] BE BASED ON THE PRIMARY CLINICAL RECORDS. [employer] provides no warranty or guarantee of the accuracy or completeness of information in this document.
== END 2025-07-17 16:19 | disposition home or self-care (01) ==
PROVIDERS: PCP Family Medicine; Visit Provider Specialist
DX: Z32.00 Encounter for pregnancy test, result unknown (principal)
CPT/HCPCS: 36415; 84702

== ENCOUNTER 2025-07-19 21:39 | Emergency (ER) | payer MEDICAID, SELFPAY ==
--- OUTSIDE RECORDS SUMMARY | 2022-01-10 06:15 | XMS_ITS | Continuity of Care Document ---
Author Organization [facility] Address [address] [place] [address] Phone Care Team Providers Care Securities Counselor Name Role Phone Johnjimenabruce Og WANG Unavailable [...] Diagnoses Date Provider Providers Copied on Encounter [facility], [address] [place] [address], [id number] , [place] tel:[phone] Dental Clinic Adult Prophy (chief complaint) Encounter for screening for dental disorders 2 Jono Foley. [address] [place] [address], [id number], [place]. tel:[phone] [facility], [address] [place] [address], [id number] , [place] tel: [phone] Dental Clinic prophy (chief complaint) Encounter for screening for dental disorders 1 Brian Huber. [address] [place] [address], [id number], [place]. tel:[phone] [facility], [address] [place] [address], [id number] , [place] tel:[phone] Dental Clinic Encounter for screening for dental disorders 1 Ronaldo Marmolejo. [address] [place] [address], [id number], [place]. tel:[phone] [facility], [address] [place] [address], [id number] , [place] tel:[phone] Dental Clinic prophy (chief complaint) Encounter for screening for dental disorders 8 Keron Sunshine. [address] [place], [place], [id number], [place]. tel:[phone] Consulting Provider: Jong Cabrales, [address] [place], [address]. tel:[phone] [facility], [address] [place], [place], [id number] , [place] tel: [phone] Dental Clinic dental new (chief complaint) Encounter for screening for dental disorders 8 Choncheryalbert Kwonjay jay. [address] [place], [address], [place]. tel:[phone] PREV VISIT, NEW, AGE 12-17 [facility], [address] [place], [place], [id number] , [place] tel: [phone] [facility] Well child (chief complaint) sports pe (chief complaint) phys sport 7 Sophy Bingham. [address] [place], [address], [place]. tel:[phone] [facility], [address] [place] [address], [id number] , [place] tel: [phone] [facility] No Information - 5 Visci DO Crow. [address] [place], [place], [id number], [place]. tel:[phone] OFFICE/OUTPA TIENT VISIT, EST [facility], [address] [place], [place], [id number] , [place] tel: [phone] [facility] Influenza Vaccine 2- 3 Visci DO Crow. [address] [place], [place], [id number], [place]. tel:[phone] [facility], [address] [place], [place], [id number] , [place] tel: [phone] [facility] No Information 0 1 Visci DO Crow. [address] [place] [address], [id number], [place]. tel:[phone] Family History Family Member Type Diagnosis Age [...] Record Payers Payer name Insurance type Covered libertarian ID Authoriza tikatrina(s) D [place] Adv CFC [address] [employer] [id number] D Medicaid [facility] - [facility] [id number] Medicaid Primary - [facility] [id number] Social History Type Description Quantity Date Captured [...] 2016, ear tubes 2012 HX: born @ [facility] [place] No /labor/delivery complications Surgical Hx: appy 2015, [...] discontinues activity with any discomfort, anxiety, notify high school academic coach and parent, and seekRetrun 1 year [...]
--- OUTSIDE RECORDS SUMMARY | 2025-07-18 10:30 | XMS_ITS | Encounter Summary ---
Author Organization [facility] Address [address] [place] [address] Care Team Providers Care Nightclub Manager Name Role Phone Pete Thapa DO Primary Care Provider [phone] Reason for Visit * Reason Comments Initial Visit Nurse Visit Encounter Details Date Type Department Care Team (Late st Contact Info) Description 07/18/2025 10:30 AM EDT Initial [facility] [place] [facility] [address] [place] [address] GA: 6w6d Social History Tobacco Use Types Packs/Day Years Used Date Smoking Tobacco: Never Smokeless Tobacco: Never Alcohol Use Standard Drinks/Week Comments Not Currently 0 (1 standard drink = 0.6 oz pur e alcohol) caffeine: occasionally [id number] Health Literacy Answer Date Recor ded [...] No 06/11/2025 Social Connection and Isolation Panel Answer Date Recorded In a typical week, how many times do you talk on the phone with family, friends, or neighbors? Once a week 06/11/20 How often do you get togethe r with friends or relatives? Three times a week 06/11/2025 How often do you attend chur or oriental orthodox services? 1 to 4 times per year 06/11/2025 Do you belong to any clubs o r organizations such as quaker groups, unions, fraternal or athletic groups, or [...] Recorded Patient Health Questionnaire-2 Score 0 06/13/2025 [facility] - Occupational Stress Questionnaire Answer Date Recorded [...] things needed for daily living? No 06/11/2025 Perry Depression Scale Answer Date Recorded Perry Depression Scale Total 0 08/10/2023 The thought [...] any time in the past 12 [facility], were you homeless or living in a long term (including now)? 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 Chief Complaint Chief Complaint Patient presents with Initial Visit Nurse Visit Charisvicki Lyons is a 24 y.o. at 6w6d with a working estimated date of delivery of 03/07/2026, by Last Menstrual Period who presents for an initial visit. OB History Para Term AB Living 3 2 SAB IAB Ectopic Multiple Live Births 2 # Outcome Date GA Lbr Dwight/2nd Weight Sex Type Anes PTL Lv 3 Current 2 11/2024 1 06/2023 D&E Past Medical / Surgical History Past Medical History: Diagnosis Date Blood type A+ Chiari syndrome (HCC) 12/27/2022 History of chicken pox Migraines Seasonal allergies Past Surgical History: Procedure Laterality Date APPENDECTOMY 2012 BRAIN SURGERY 2022 d/t chiari syndrome DILATION AND CURETTAGE OF UTERUS 2022 suction D&C TONSILLECTOMY 2010 & adenoids TYMPANOSTOMY TUBE PLACEMENT Right permanant tube Family History Family History Problem Relation Name Age of Onset Asthma Mother No Known Problems Father No Known Problems Maternal Grandmother No Known Problems Maternal Grandfather Breast cancer Paternal Grandmother Lung cancer Paternal Grandmother Thyroid disease Paternal Grandmother Leukemia Paternal Grandfather Social History reports that she has never smoked. She has never used smokeless tobacco. She reports that she does not currently use alcohol. She reports that she does not use drugs. Genetic Screening Genetic Screening/Teratology Counseling- Includes patient, baby's father, or anyone in either family with: Positive Intellectual disability and/or autism Yes FOB's brother Recurrent loss, or a stillbirth Yes MAB x2 Medications (including supplements, vitamins, herbs, or OTC drugs)/illicit/recreational drugs/alcohol since last menstrual period Yes If yes, agent(s) and strength/dosage see medical hx Negative Patient's age 35 years or older as of estimated date of delivery No Thalassemia (Kyrgyz, Faroese, Mediterranean, or background): MCV less than 80 No Neural tube defect (Meningomyelocele, Spina bifida, or Anencephaly) No Congenital heart defect No Down syndrome No Abdoulaye-Sachs (Ashkenazi Oriental Orthodox, Cajun, Wolof Yemeni) No Mima disease (Ashkenazi Oriental Orthodox) No Familial dysautonomia (Ashkenazi Oriental Orthodox) No Sickle cell disease or trait () No Hemophilia or other blood disorders No Muscular dystrophy No Cystic fibrosis No Kosc[place]ko's chorea No Other inherited genetic or chromosomal disorder No Maternal metabolic disorder (eg. Type 1 diabetes, PKU) No Patient or baby's father had child with defects not listed above No MEDICATIONS: Current Outpatient Medications on File Prior to Visit Medication Sig Dispense Refill cephalexin (Keflex) 500 MG capsule Take 1 capsule (500 mg) by mouth in the morning and 1 capsule (500 mg) at noon and 1 capsule (500 mg) in the evening and 1 capsule (500 mg) before bedtime. Do all this for 10 days. 40 capsule 0 Vit-Fe Fumarate-FA ( Vitamins) 28-0.8 MG tablet Take 1 tablet by mouth Daily 30 tablet 11 clindamycin (Cleocin T) 1 % external solution Apply topically in the morning and before bedtime. APPLY TO AFFECTED AREAS ON FACE ONCE A DAY. (Patient not taking: Reported on 07/18/2025) 30 mL 3 meclofenamate (Meclomen) 100 MG capsule One tablet tid on menses No hormones due to Chiari malformation (Patient not taking: Reported on 07/18/2025) 120 capsule 2 methylphenidate ER (Concerta) 18 MG CR tablet Take 1 tablet (18 mg) by mouth in the morning. Do notcrush, chew, or split. (Patient not taking: Reported on 07/18/2025) 30 tablet 0 ondansetron (Zofran) 4 MG tablet Take 1 tablet (4 mg) by mouth 2 (two) times a day as needed for nausea or vomiting 20 tablet 0 No current facility-administered medications on file prior to visit. Allergies Allergies Allergen Reactions Cyproheptadine Diarrhea Other Reaction(s): [...] Penicillin G Sodium Rash Other reaction(s): rash Patient reports nausea and vomiting. Able to keep down most fluids, some foods. Patient reports taking Zofran PRN, which is helping. Discussed other recommendations for n/v and discussed s/s of dehydration and when to call office. Patient reports taking a daily PNV Patient counseled on Genetic and Chromosomal testing. Provided handout to check insurance and advised to discuss with PPJ if interested. Last PAP: 08/21/2024 LSIL HPV - ASSESSMENT / PLAN Labs Ordered to [facility] per pt request. Printed orders for pt to take with. Aware she will need these completed prior to NOB. Appointments scheduled for 07/31/25 with OBUS and 08/18/25 with LUIGI Dumont RN 07/18/2025 11:50 AM documented in this encounter Plan of Treatment Upcoming Encounters Date Type Department Care Team (Late st Contact Info) Description 07/31/2025 2:45 PM EDT Ancillary Procedure [facility] [place] [facility] [address] [place] [phone] 08/18/2025 12:45 PM EST Initial [facility] [place] [facility] [address] [place] [address] Jona Henley MD [address] [place] [address] Scheduled Orders Name Type Priority Associated Diagnoses Orde r Schedule Toxicology screen, urine Lab Routine Encounter for drug screening Expected: 07/18/2025 (Approximate), Expires: 07/18/2026 CBC auto differential Lab Routine care, subsequent , first trimester ([facility]) Expected: 07/18/2025, Expires: 07/18/2026 Urine culture Microbiology Routine care, subsequent , first trimester ([facility]) Expected: 07/18/2025, Expires: 07/18/2026 Urinalysis with microscopic Lab Routine care, subsequent , first trimester ([facility]) Expected: 07/18/2025, Expires: 07/18/2026 RPR W/RFX TO QUANT & TP ABS [place] Lab Routine care, subsequent , first trimester ([facility]) Expected: 07/18/2025, Expires: 07/18/2026 Rubella antibody, IgG Lab Routine care, subsequent , first trimester ([facility]) Expected: 07/18/2025, Expires: 07/18/2026 HEPATITIS B SURFACE ANTIGEN ([facility] Lab Routine care, subsequent , first trimester ([facility]) Expected: 07/18/2025, Expires: 07/18/2026 Type and screen Lab Routine care, subsequent , first trimester ([facility]) Expected: 07/18/2025, Expires: 07/18/2026 HIV-1 and HIV-2 antibodies Lab Routine care, subsequent , first trimester ([facility]) Expected: 07/18/2025, Expires: 07/18/2026 Hepatitis C antibody Lab Routine care, subsequent , first trimester ([facility]) Expected: 07/18/2025, Expires: 07/18/2026 [id number] PLUS Core+SCA Lab Routine Encounter for screening for chromosomal anomalies ([facility]) Expected: 08/11/2025 (Approximate), Expires: 07/18/2026 BEACON CARRIER SCREEN;14 GENES Lab Routine Screening for genetic disease carrier status Expected: 08/11/2025 (Approximate), Expires: 07/18/2026 documented as of this encounter Goals Goal Patient Goal Type Associated Problems Recent Progress Patient-Stated? Author Reminders Care Plan OB Reminders Laure Stahl RN documented as of this encounter Visit Diagnoses Diagnosis care, subsequent , first trimester ([facility]) Encounter for drug screening Encounter for screening for chromosomal anomalies ([facility]) Screening for genetic disease carrier status documented in this encounter Additional Health Concerns Active Problems Noted Date Diagnosed Date OB Reminders 07/18/2025 documented as of this encounter Care Teams Nightclub Manager Relationship Specialty Start Date End Date Pete Thapa DO [address] [place] [address] PCP - General Family Medicine 02/14/23 documented as of this encounter
[2025-07-19 21:41] VITALS: BP 104/78; PULSE 99; TEMP 36.4; O2SAT 97; BMI 24.2
--- OUTSIDE RECORDS SUMMARY | 2025-07-19 21:43 | XMS_ITS | Encounter Summary ---
Author Organization [employer] Address [id number] [address] [place] [address] Care Team Providers Care Production Metal Sprayer Name Role Phone Alanis Sky DO, George R Primary Care Provider + Encounter Details Date Type Department Care Team (Late st Contact Info) Description 02/27/2025 Orders Only [facility] [employer] [facility] [place] [address] Transcribe, Orders Support User Pain (Primary Dx) Social History Tobacco Use Types Packs/Day Years Used Date Smoking Tobacco: Never Smokeless Tobacco: Never Alcohol Use Standard Drinks/Week Comments Yes 0 (1 standard drink = 0.6 oz pur e alcohol) q 1x per month [facility] Utilities Answer Date Recorded In the [...] EST Telemedicine [facility], A Department of [facility] [address] [place] [address] Bari Caro MD [address], [facility] [address] [place] [address] documented as of this encounter Goals Goal [...] documented as of this encounter Care Teams Production Metal Sprayer Relationship Specialty Start Date End Date Pete Thapa Jr., DO [address] [place] [address] PCP - General Family Medicine 02/26/25 documented as of this encounter
--- OUTSIDE RECORDS SUMMARY | 2025-07-19 21:44 | XMS_ITS | Encounter Summary ---
Author Organization [facility] Address [facility] [place] [address] Care Team Providers Care Tufter Name Role Phone Luke Kerry COONEY Unavailable [phone] Jona Henley MD Unavailable [phone] Source Comments In the event this information is protected by the Federal Confidentiality of Alcohol and Drug AbusePatient Records regulations: The Federal rules restrict any use of the information to criminally investigate or prosecute any alcohol or drug abuse patient.[facility] Encounter Details Date Type Department Care Team (Late st Contact Info) Description 01/23/2022 Get Medical Advice Dermatology [address] [place] [address] Mary Ann Ma MD [address] [facility] [place] [address] Ance Social History Tobacco Use [...] N ot on file 09/14/2020 Data from: https://www.neighborhoodatlas.medicine.[facility]/. Last address used for calculation Not on [...] on filedocumented in this encounter Care Teams Tufter Relationship Specialty Start Date End Date Crtmartina-Kerry Coates [address] [place] [address] Nutrition 04/04/23 Jona Henley MD [address] [place] [address] Referring Military Cook 06/11/25 documented as of this encounter
--- OUTSIDE RECORDS SUMMARY | 2025-07-19 21:44 | XMS_ITS | Encounter Summary ---
Author Organization [facility] [employer] Address [id number] [address] [place] [address] Care Team Providers Care Plasterer Journeyman Name Role Phone Alanis Sky DO, George R Primary Care Provider + Encounter Details Date Type Department Care Team ([facility] st Contact Info) Description 08/26/2024 Telephone [facility] [address] [facility] [place] [address] Ashley Jennings-Yissel, DO [address] [facility] [facility] [place] [address] Social History Tobacco Use Types [...] EST Telemedicine [facility] Department of [facility] [address] [place] [phone] Bari Caro MD [address] [facility] [address] [place] [address] documented as of this encounter Goals Goal [...] documented as of this encounter Care Teams Plasterer Journeyman Relationship Specialty Start Date End Date Pete Thapa Jr., DO [address] [place] [address] PCP - General Family Medicine 02/26/25 documented as of this encounter
--- OUTSIDE RECORDS SUMMARY | 2025-07-19 21:44 | XMS_ITS | Encounter Summary ---
Author Organization [facility] Address [address] [place] [address] Care Team Providers Care Medical Affairs Specialist Name Role Phone Pete Thapa DO Primary Care Provider [phone] Encounter Details Date Type Department Care Team (Late st Contact Info) Description 07/03/2024 Clinisync Result Encounter NOMS External Department Unsolicited Jona Vann MD [address] [place] [address] Social History Tobacco Use Types Packs/Day Years [...] declined 11/12/2023 Social Connection and Isolation Panel Answer Date Recorded In a typical week, how many times do you talk on the phone with family, friends, or neighbors? Patient declined 11/12/2023 How often do you get togethe r with friends or relatives? Patient declined 11/12/2023 Attends Faith Services Not on file 11/12 Do you belong to any clubs o r organizations such as yarsani groups, unions, fraternal or athletic groups, or [...] needed for daily living? Patient declined 11/12/2023 [place] Depression Scale Answer Date Recorded [place] Depression Scale Total 0 08/10/2023 The thought [...] 2:45 PM EDT Ancillary Procedure [facility] [place] [facility] [address] [place] [phone] 08/18/2025 12:45 PM EST Initial [facility] [place] [facility] [address] [place] [phone] Jona Vann MD [address] [place] [address] documented as of this encounter Procedures Procedure Name Priority Date/Time Associated Diagnosis Comments US PELVIS W/ TRANSVAGINAL 07/03/2024 5:53 AM EDT documented in this encounter Results * US PELVIS W/ TRANSVAGINAL (07/03/2024 5:53 AM EDT) Anatomical Region Laterality Modality Other 07/03/2024 5:53 AM EDT Narrative 07/03/2024 5:55 AM EDT The [address] [address] Ultrasound Report Signed Patient: CHARIS ALLEN MR#: [id number] : 2000 Acct:[id number] Age/Sex: 23 / F ADM Date: 07/02/24 Loc: RAD Attending Dr: JONA VANN Ordering Physician: JONA VANN Date of Service: 07/02/24 Procedure(s): US pelvis w/ transvaginal Accession Number(s): [id number] cc: JONA VANN ; Diane THAPA [place] [address] Patient Name: CHARIS ALLEN MRN: [facility]:[id number] date: 2000 Sex: F Assigned Patient Location: [facility] Current Patient Location: Accession/Order Number: [id number] Exam Date: 07/02/2024 10:56 Report Date: 07/03/2024 [...] Fan M.D. Signed By: 07/03/24 0555 DD/ 0553 TD/TT: Health Sanitarian: Procedure Note Radiology, Radiologist, MD - 07/03/2024 [place] [address] Ultrasound Report Signed Patient: CHARIS ALLEN EMR#: [id number] : 2000Acct:[id number] Age/Sex: 23 / FADM Date: 07/02/24 Loc: [facility] Attending Dr: JONA VANN Ordering Physician: JNOA VANN Date of Service: 07/02/24 Procedure(s): US pelvis w/ transvaginal Accession Number(s): [id number] cc: JONA VANN ; Diane THAPA [place] [id number] Patient Name: CHARIS ALLEN MRN: [id number] date: 2000 Sex: F Assigned Patient Location: [facility] Current Patient Location: Accession/Order Number: [id number] Exam Date: 07/02/2024 10:56 Report Date: 07/03/2024 [...] 05:53 Dictated By: Stephen Fan M.D. Signed By:07/03/2455 DD/ TD/TT: Health Sanitarian: us Jona Vann MD [facility] Final Result documented in this encounter Visit Diagnoses Not on filedocumented in this encounter Care Teams Medical Affairs Specialist Relationship Specialty Start Date End Date Pete Thapa DO [address] [facility] [address] [place] [address] PCP - General Family Medicine 02/14/23 documented as of this encounter
--- OUTSIDE RECORDS SUMMARY | 2025-07-19 21:44 | XMS_ITS | Encounter Summary ---
Author Organization [facility] Address [facility] [place] [address] Care Team Providers Care Vegetables Cook Name Role Phone Krery Butler RD Unavailable [phone] Jona Henley MD Unavailable [phone] Source Comments In the event this information is protected by the Federal Confidentiality of Alcohol and Drug AbusePatient Records regulations: The Federal rules restrict any use of the information to criminally investigate or prosecute any alcohol or drug abuse patient.[facility] Encounter Details Date Type Department Care Team (Late st Contact Info) Description 12/27/2021 [place] [address] Provider, Ccf Questionnaire Submission Social History Tobacco [...] N ot on file 09/14/2020 Data from: https://www.neighborhoodatlas.[facility].edu/. Last address used for calculation [...] on filedocumented in this encounter Care Teams Vegetables Cook Relationship Specialty Start Date End Date Crtalic-Kerry Coates RD [address] [address] Nutrition 04/04/23 Jona Henley MD [address] [place] [address] Referring Environmental Services Project Manager 06/11/25 documented as of this encounter
--- OUTSIDE RECORDS SUMMARY | 2025-07-19 21:44 | XMS_ITS | Encounter Summary ---
Author Organization [facility] Address [address] [facility] [place] [address] Care Team Providers Care Product Safety Associate Name Role Phone Pete Thapa DO Primary Care Provider [phone] Encounter Details Date Type Department Care Team (Late st Contact Info) Description 07/15/2025 Orders Only [facility] External Department Unsolicited Jona Henley MD [address] [place] [address] Social History Tobacco Use Types Packs/Day Years [...] often do you attend chur ch or mandaeism services? 1 to 4 times per year 06/11/2025 Do you belong to any clubs o r organizations such as orthodox groups, unions, fraternal or athletic groups, [...] Recorded Patient Health Questionnaire-2 Score 0 06/13/2025 [facility] - Occupational Stress Questionnaire Answer Date Recorded [...] things needed for daily living? No 06/11/2025 [place] Depression Scale Answer Date Recorded [place] Depression Scale Total 0 08/10/2023 The thought [...] any time in the past 12 m [facility], were you homeless or living in a senior living (including now)? No 06/11/2025 Comments No Sex [...] OBGYN [address] [place] [address] 08/18/2025 12:45 PM EST Initial [facility] [place] [facility] [address] [place] [address] Jona Henley MD [address] [place] [address] documented as of this encounter Procedures Procedure Name Priority Date/Time Associated Diagnosis Comments URINE CULTURE CLEAN CATCH REFLEX Routine 07/15/2025 12:00 AM EDT CULTURE, URINE, ROUTINE Routine 07/15/2025 12:00 AM EDT documented in this encounter Results * (ABNORMAL) Urine Culture Clean Catch Reflex (07/15/2025 12:00 AM EDT) Pathologist [facility] Ur Cult 1 Enterococcus faecalis(A) [facility] Comment: Enterococci susceptible to penicillin are predictably susceptible to ampicillin, amoxicillin, ampicillin-sulbactam, amoxicillin-clavulanate, and piperacillin-tazobactam for bfz-[id number]-yypqngxzz producing enterococci. (CLSI 2018) For Enterococcus species, aminoglycosides (except for high-level resistance screening), cephalosporins, clindamycin, and trimethoprim-sulfamethoxazole are not effective clinically. (CLSI, B504-W54, 2016) Note: this isolate is vancomycin-susceptible. This information is provided for epidemiologic purposes only: vancomycin is not among the antibiotics recommended for therapy of urinary tract infections caused by Enterococcus. Greater than 100,000 colony forming units per mL Ur Cult 2 Escherichia coli(A) [facility] Comment: Cefazolin with an MAGALI <=16 predicts susceptibility to the oral agents cefaclor, cefdinir, cefpodoxime, cefprozil, cefuroxime, cephalexin, and loracarbef when used for therapy of uncomplicated urinary tract infections due to E. coli, Klebsiella pneumoniae, and Proteus mirabilis. 10,000-25,000 colony forming units per mL Ur Cult Suscep Comment [facility] Comment: S = Susceptible; I = Intermediate; R = Resistant P = Positive; N = Negative MICS are expressed in micrograms per mL Antibiotic RSLT#1 RSLT#2 RSLT#3 RSLT#4 Amoxicillin/Clavulanic Acid S Ampicillin S Cefazolin S Cefepime S Cefoxitin S Cefpodoxime S Ceftriaxone S Ciprofloxacin S S Ertapenem S Gentamicin S Levofloxacin S S Meropenem S Nitrofurantoin S S Penicillin S Piperacillin/Tazobactam S Tetracycline R S Tobramycin S Trimethoprim/Sulfa S Vancomycin S 07/15/2025 07/15/2025 Narrative [facility] - 07/18/2025 5:07 PM EDT Performed at: 01 - [facility] [address] [id number] Grinding Room Supervisor: Roland Martinez PhD, Phone: [phone] us Jona Henley MD LAB URINE ORDERABLES Final Res ult Performing Organization Address [facility] Co de Phone Number [facility] * (ABNORMAL) Urine culture (07/15/2025 12:00 AM EDT) Urine Cult Rt Status Final report(A) [facility] 07/15/2025 07/15/2025 Comment:URINE Narrative [facility] - 07/18/2025 5:07 PM EDT Performed at: 01 - [facility] [address] [id number] Grinding Room Supervisor: Roland Martinez PhD, Phone: [phone] us Jona Henley MD LAB MICROBIOLOGY - GENERAL ORD ERABLES Final Result Performing Organization Address [facility] de Phone Number [facility] documented in this encounter Visit Diagnoses Not on filedocumented in this encounter Care Teams Product Safety Associate Relationship Specialty Start Date End Date Pete Thapa DO [address] [place] [address] PCP - General Family Medicine 02/14/23 documented as of this encounter
--- OUTSIDE RECORDS SUMMARY | 2025-07-19 21:44 | XMS_ITS | Clinical Summary ---
Author Organization [facility] Address [address] [facility] [place] [address] Care Team Providers Care Projection Printer Name Role Phone Katie Thapa DO Primary [...] HPV VACCINE Completed 07/13/2017, 06/2017, 12/15/2016 Insurance [facility] Medicaid Care Teams Projection Printer Relationship Specialty Start Date End Date Katie Thapa DO [address] [place] [address] PCP - General Family Medicine 11/28/22
--- OUTSIDE RECORDS SUMMARY | 2025-07-19 21:44 | XMS_ITS | Encounter Summary ---
Author Organization [facility] Address [address] [place] [address] Care Team Providers Care Oil Well Logger Name Role Phone Pete Thapa DO Primary Care Provider [phone] Encounter Details Date Type Department Care Team (Late st Contact Info) Description 08/18/2023 Abstract [facility] Pena FADI [address] [facility] [address] [place] [address] Jona Henley MD [address] [facility] [address] [place] [address] Social History Tobacco Use Types Packs/Day Years Used Date Smoking Tobacco: Never Smokeless Tobacco: Never Alcohol Use Standard Drinks/Week Comments Not Currently 0 (1 standard drink = 0.6 oz pur e alcohol) caffeine: none PHQ-2 Answer Date Recorded Patient Health Questionnaire-2 Score 0 06/29/2023 [place] Depression Scale Answer Date Recorded [place] Depression Scale Total 0 08/10/2023 The thought [...] Description 07/31/2025 2:45 PM EDT Ancillary Procedure [facility] SMALLN [address] [place] [address] 08/18/2025 12:45 PM EST Initial [facility] SoGravescarson APONTE [address] [place] [address] Jona Henley MD [address] [place] [address] documented as of this encounter Visit Diagnoses Not on filedocumented in this encounter Care Teams Oil Well Logger Relationship Specialty Start Date End Date Pete Thapa DO [address] [place] [address] PCP - General Family Medicine 02/14/23 documented as of this encounter
--- OUTSIDE RECORDS SUMMARY | 2025-07-19 21:44 | XMS_ITS | Encounter Summary ---
Author Organization [facility] Address [address] [place] [address] Care Team Providers Care Vacuum Forming Machine Operator Name Role Phone Pete Thapa DO Primary Care Provider [phone] Encounter Details Date Type Department Care Team (Late st Contact Info) Description 08/15/2023 Abstract [facility] Pena FADI [address] [facility] [address] [place] [address] Jona Henley MD [address] [facility] [address] [place] [address] Social History Tobacco Use Types Packs/Day Years Used Date Smoking Tobacco: Never Smokeless Tobacco: Never Alcohol Use Standard Drinks/Week Comments Not Currently 0 (1 standard drink = 0.6 oz pur e alcohol) caffeine: none PHQ-2 Answer Date Recorded Patient Health Questionnaire-2 Score 0 06/29/2023 [place] Depression Scale Answer Date Recorded [place] Depression Scale Total 0 08/10/2023 The thought [...] 07/31/2025 2:45 PM EDT Ancillary Procedure N[facility] BRIGGSLALAN [address] [place] [address] 08/18/2025 12:45 PM EST Initial [facility] So[place] APONTE [address] [place] [address] Jona Henley MD [address] [place] [address] documented as of this encounter Visit Diagnoses Not on filedocumented in this encounter Care Teams Vacuum Forming Machine Operator Relationship Specialty Start Date End Date Pete Thapa DO [address] [place] [address] PCP - General Family Medicine 02/14/23 documented as of this encounter
--- OUTSIDE RECORDS SUMMARY | 2025-07-19 21:44 | XMS_ITS | Encounter Summary ---
Author Organization [facility] Address [address] [place] [address] Care Team Providers Care Roving Changer Name Role Phone Pete Thapa DO Primary Care Provider [phone] Encounter Details Date Type Department Care Team (Late st Contact Info) Description 08/21/2023 Abstract NOMEfe Pena FADI [address] [facility] [address] [place] [address] Jona Henley MD [address] [facility] [address] [place] [address] Social History Tobacco Use Types Packs/Day Years Used Date Smoking Tobacco: Never Smokeless Tobacco: Never Alcohol Use Standard Drinks/Week Comments Not Currently 0 (1 standard drink = 0.6 oz pur e alcohol) caffeine: none PHQ-2 Answer Date Recorded Patient Health Questionnaire-2 Score 0 06/29/2023 [place] Depression Scale Answer Date Recorded [place] Depression Scale Total 0 08/10/2023 The thought [...] SMALLN [address] [place] [address] 08/18/2025 12:45 PM EST Initial N[facility] SoNiagaracarson APONTE [address] [place] [address] Jona Henley MD [address] [place] [address] documented as of this encounter Visit Diagnoses Not on filedocumented in this encounter Care Teams Roving Changer Relationship Specialty Start Date End Date Pete Thapa DO [address] [place] [address] PCP - General Family Medicine 02/14/23 documented as of this encounter
--- OUTSIDE RECORDS SUMMARY | 2025-07-19 21:44 | XMS_ITS | Encounter Summary ---
Author Organization [facility] Address [facility] [id number] [address] [place] [address] Care Team Providers Care Superintendent Of Generation Name Role Phone Alanis Sky DO, George R Primary Care Provider + Encounter Details Date Type Department Care Team (Late st Contact Info) Description 07/15/2024 Telephone [facility] Neurology [address] [place] [address] Juan Camacho Social History Tobacco [...] was seeing Katie Ellis during this process. Log Hooker gave patient the number to NEUROSURGERY and [...] Info) Description 09/29/2025 4:00 PM EST Telemedicine [facility], A Department of [facility] [address] [place] [address] Bari Caro MD [address] [facility] [place] [address] documented as of this encounter Goals Goal [...] documented as of this encounter Care Teams Superintendent Of Generation Relationship Specialty Start Date End Date Pete Thapa Jr., DO [address] [address] PCP - General Family Medicine 02/26/25 documented as of this encounter
--- OUTSIDE RECORDS SUMMARY | 2025-07-19 21:44 | XMS_ITS | Encounter Summary ---
Author Organization [facility] Address [address] [facility] [place] [address] Care Team Providers Care Information Resource Consultant Name Role Phone Pete Thapa DO Primary Care Provider [phone] Encounter Details Date Type Department Care Team (Late st Contact Info) Description 07/17/2025 Clinisync Result Encounter NOMS External Department Unsolicited Jona Henley MD [address] [place] [address] Social History Tobacco Use Types Packs/Day Years [...] often do you attend chur ch or hinduism services? 1 to 4 times per year [...] Recorded Patient Health Questionnaire-2 Score 0 06/13/2025 [facility] Occupational Stress Questionnaire Answer Date [...] things needed for daily living? No 06/11/2025 [place] Depression Scale Answer Date Recorded [place] Depression Scale Total 0 08/10/2023 The thought [...] any time in the past 12 m [facility], were you homeless or living in a skilled nursing (including now)? No 06/11/2025 Comments No Sex [...] 2:45 PM EDT Ancillary Procedure [facility] [place] BRIGGSGYN [address] [place] [address] 08/18/2025 12:45 PM EST Initial [facility] [place] [facility]IGGSGY[facility] [address] [place] [address] Jona Henley MD [address] [place] [address] documented as of this encounter Procedures Procedure Name Priority Date/Time Associated Diagnosis Comments [facility] PREG QUANT HCG Routine 07/17/2025 4: 30 PM EDT documented in this encounter Results * [facility] PREG QUANT HCG (07/17/2025 4:30 PM EDT) HCG QUANTITATIVE 74,404 mIU/mL [facility] Comment: 5-50 0.2-1 WEEK 50-500 1-2 WEEKS 100-5,000 2-3 WEEKS 500-10,000 3-4 WEEKS 1,000-50,000 4-5 WEEKS 10,000-100,000 5-6 WEEKS 15,000-200,000 6-8 WEEKS 10,000-100,000 2-3 MONTHS 07/17/2025 4:30 PM EDT 07/17/2025 4:36 PM EDT Narrative [facility] - 07/17/2025 5:27 PM EDT us Generic External Data Provider [facility] documented in this encounter Visit Diagnoses Not on filedocumented in this encounter Care Teams Information Resource Consultant Relationship Specialty Start Date End Date Pete Thapa DO [address] [facility] [address] [place] [id number] PCP - General Family Medicine 02/14/23 documented as of this encounter
--- OUTSIDE RECORDS SUMMARY | 2025-07-19 21:44 | XMS_ITS | Encounter Summary ---
Author Organization [facility] Address [address] [facility] [place] [address] Care Team Providers Care Inspector Subassembly Name Role Phone Pete Thapa DO Primary Care Provider [phone] Encounter Details Date Type Department Care Team (Late st Contact Info) Description 11/08/2023 Orders Only [facility] [place] [facility] [address] [facility] [address] [place] [address] Jona Henley MD [address] [facility] [address] [place] [address] Social History Tobacco Use Types Packs/Day Years [...] friends or relatives? Patient declined 11/12/2023 Attends [employer] Not on file 11/12 Do you belong to any clubs o r organizations such as caodaism groups, unions, fraternal or athletic groups, or [...] needed for daily living? Patient declined 11/12/2023 [place] Depression Scale Answer Date Recorded [place] Depression Scale Total 0 08/10/2023 The thought [...] [address] [place] [address] 08/18/2025 12:45 PM EST Initial [facility] [place] [...] on filedocumented in this encounter Care Teams Inspector Subassembly Relationship Specialty Start Date End Date Pete Thapa DO [address] [place] [address] PCP - General Family Medicine 02/14/23 documented as of this encounter
--- OUTSIDE RECORDS SUMMARY | 2025-07-19 21:44 | XMS_ITS | Encounter Summary ---
Author Organization [facility] Address [facility] [place] [address] Care Team Providers Care Maintenance Mechanic Name Role Phone CristobalTanishaJaxon Kerry COONEY Unavailable Jona Henley MD Unavailable Source Comments In the event this information is protected by the Federal Confidentiality of Alcohol and Drug AbusePatient Records regulations: The Federal rules restrict any use of the information to criminally investigate or prosecute any alcohol or drug abuse patient.[facility] Reason for Visit * Reason Comments Refill Request Encounter Details Date Type Department Care Team (Late st Contact Info) Description 04/28/2025 Refill Dermatology [address] [place] [address] Mary Ann Ma MD [address] [place] [address] Refill Request Social History Tobacco [...] is lower risk 7 08/16/2023 Data from: https://www.neighborhoodatlas.[facility]/. Last address used for calculation [...] acne documented in this encounter Care Teams Maintenance Mechanic Relationship Specialty Start Date End Date Crtalic-Kerry Coates RD [address] [address] Nutrition 04/04/23 Jona Henley MD [address] [address] Referring Special Education Resource Room Teacher 06/11/25 documented as of this encounter
--- OUTSIDE RECORDS SUMMARY | 2025-07-19 21:44 | XMS_ITS | Encounter Summary ---
Author Organization [facility] Address [id number] [address] [place] [address] Care Team Providers Care Web Analytics Developer Name Role Phone Alanis Sky DO, George R Primary Care Provider + Reason for Visit * Reason Onset Date Comments Med Refill 08/12/2024 Encounter Details Date Type Department Care Team (Late st Contact Info) Description 08/12/2024 [facility] [address] [place] [address] Sadia Rai, PA-C [address] [address] Otomycosis- right ear Social History [...] EST Telemedicine [facility] [address] [place] [address] Bari Caro MD [address], [address] [place] [address] documented as of this encounter Goals Goal [...] documented as of this encounter Care Teams Web Analytics Developer Relationship Specialty Start Date End Date Pete Thapa Jr., DO [address] [facility] [address] [place] [address] PCP - General Family Medicine 02/26/25 documented as of this encounter
--- OUTSIDE RECORDS SUMMARY | 2025-07-19 21:44 | XMS_ITS | Encounter Summary ---
Author Organization [facility] Address [address] [place] [address] Care Team Providers Care Sheet Metal Superintendent Name Role Phone Pete Thapa DO Primary Care Provider [phone] Encounter Details Date Type Department Care Team (Late st Contact Info) Description 08/15/2023 Abstract [facility]fe Pena FADI [address] [facility] [address] [place] [address] Jona Henley MD [address] [facility] [address] [place] [address] Social History Tobacco Use Types Packs/Day Years Used Date Smoking Tobacco: Never Smokeless Tobacco: Never Alcohol Use Standard Drinks/Week Comments Not Currently 0 (1 standard drink = 0.6 oz pur e alcohol) caffeine: none PHQ-2 Answer Date Recorded Patient Health Questionnaire-2 Score 0 06/29/2023 [place] Depression Scale Answer Date Recorded [place] Depression Scale Total 0 08/10/2023 The thought [...] BRIGGSLALAN [address] [place] [address] 08/18/2025 12:45 PM EST Initial N[facility]fe SoOnacarson APONTE [address] [place] [address] Jona Henley MD [address] [place] [address] documented as of this encounter Visit Diagnoses Not on filedocumented in this encounter Care Teams Sheet Metal Superintendent Relationship Specialty Start Date End Date Pete Thapa DO [address] [place] [address] PCP - General Family Medicine 02/14/23 documented as of this encounter
--- OUTSIDE RECORDS SUMMARY | 2025-07-19 21:44 | XMS_ITS | Encounter Summary ---
Author Organization [facility] Address [facility] [place] [address] Care Team Providers Care Commercial Reporter Name Role Phone Luke Krery COONEY Unavailable [phone] Jona Henley MD Unavailable [phone] Source Comments In the event this information is protected by the Federal Confidentiality of Alcohol and Drug AbusePatient Records regulations: The Federal rules restrict any use of the information to criminally investigate or prosecute any alcohol or drug abuse patient.[facility] Encounter Details Date Type Department Care Team (Late st Contact Info) Description 06/21/2021 Get Medical Advice Dermatology [address] [place] [address] Mary Ann Ma MD [address] [facility] [place] [address] RE: Test Result Question Social [...] N ot on file 09/14/2020 Data from: https://www.neighborhoodatlas.medicine.[facility]/. Last address used for calculation [...] on filedocumented in this encounter Care Teams Commercial Reporter Relationship Specialty Start Date End Date Crtalic-Kerry Coates [address] [place] [address] Nutrition 6/27/23 Jona Henley MD [address] [facility] [address] [place] [address] Referring Laboratory Tech 06/11/25 documented as of this encounter
--- OUTSIDE RECORDS SUMMARY | 2025-07-19 21:44 | XMS_ITS | Encounter Summary ---
Author Organization [facility] Address [facility] [place] [address] Care Team Providers Care Sweatband Perforator Name Role Phone Cristobal-Jaxon Kerry COONEY Unavailable [phone] Jona Henley MD Unavailable [phone] Source Comments In the event this information is protected by the Federal Confidentiality of Alcohol and Drug AbusePatient Records regulations: The Federal rules restrict any use of the information to criminally investigate or prosecute any alcohol or drug abuse patient.[facility] Encounter Details Date Type Department Care Team (Late st Contact Info) Description 07/06/2021 Get Medical Advice Dermatology [address] [place] [address] Mary Ann Ma MD [address] [facility] [place] [address] RE: Test Result Question Social [...] N ot on file 09/14/2020 Data from: https://www.neighborhoodatlas.medicine.[facility]/. Last address used for calculation [...] on filedocumented in this encounter Care Teams Sweatband Perforator Relationship Specialty Start Date End Date Crtalic-Kerry Coates RD [address] [address] Nutrition 04/04/23 Jona Henley MD [address] [facility] [address] [place] [address] Referring Tafe Teacher 06/11/25 documented as of this encounter
--- OUTSIDE RECORDS SUMMARY | 2025-07-19 21:44 | XMS_ITS | Encounter Summary ---
Author Organization [facility] [employer] [facility] [facility] Address [id number] [address] [place] [address] Care Team Providers Care Road Freight Brake Coupler Name Role Phone Alanis Sky DO, George R Primary Care Provider + Reason for Visit * Reason Onset Date Comments Regarding surgery w/Dr. Verde on 06/04 Encounter Details Date Type Department Care Team ([facility] Contact Info) Description 05/24/2024 Telephone [facility] - ENT [address] [place] [address], [address] [place] [address] Clifton Verde MD [address] [place] [address] [address] [place] [address] Regarding surgery w/Dr. Verde on 06/04 [...] EST Telemedicine [facility], A Department of [facility] [address] [place] [address] Bari Caro MD [address] [facility], [address] [place] [address] documented as of this encounter Goals Goal [...] documented as of this encounter Care Teams Road Freight Brake Coupler Relationship Specialty Start Date End Date Pete Thapa Jr., [address] [place] [address] PCP - General Family Medicine 02/26/25 documented as of this encounter
--- OUTSIDE RECORDS SUMMARY | 2025-07-19 21:44 | XMS_ITS | Encounter Summary ---
Author Organization [employer] [facility] Address [id number] [address] [place] [address] Care Team Providers Care Real Estate Services Administrator Name Role Phone Alanis Syk DO, George R Primary Care Provider + Encounter Details Date Type Department Care Team (Late st Contact Info) Description 12/28/2023 [facility]phone [facility] [address] [place] [address] Sadia Rai, PA-C [address] [facility] [address] [place] [address] Social History Tobacco Use Types [...] [facility] A Department of [facility] [address] [place] [address] Bari Caro MD [address] [facility] [place] [address] documented as of this encounter Goals Goal [...] documented as of this encounter Care Teams Real Estate Services Administrator Relationship Specialty Start Date End Date Pete Thapa Jr., DO [address] [place] [address] PCP - General Family Medicine 02/26/25 documented as of this encounter
--- OUTSIDE RECORDS SUMMARY | 2025-07-19 21:44 | XMS_ITS | Encounter Summary ---
Author Organization [facility] Address [address] [place] [address] Care Team Providers Care Oral And Maxillofacial Surgery Resident Name Role Phone Pete Thapa Primary Care Provider [phone] Encounter Details Date Type Department Care Team (Late st Contact Info) Description 07/05/2025 Clinisync Result Encounter [facility] External Department Unsolicited [...] How often do you attend chur or moravian services? 1 to 4 times per year 06/11/2025 Do you belong to any clubs o r organizations such as faith groups, unions, fraternal or athletic groups, or [...] Recorded Patient Health Questionnaire-2 Score 0 06/13/2025 [facility] Occupat ional Health - Occupational [...] things needed for daily living? No 06/11/2025 [place] Depression Scale Answer Date Recorded [place] Depression Scale Total 0 08/10/2023 The thought [...] any time in the past 12 m [facility], were you homeless or living in a half-way (including now)? No 06/11/2025 Comments No Sex [...] [address] [place] [address] 08/18/2025 12:45 PM EST Initial [facility] [place] [facility]IGGS[facility]N [address] [place] [address] Jona Henley MD [address] [place] [address] documented as of this encounter Procedures Procedure Name Priority Date/Time Associated Diagnosis Comments [facility] PREG QUANT HCG Routine 07/05/2025 10 :14 AM EDT documented in this encounter Results * [facility] PREG QUANT HCG (07/05/2025 10:14 AM EDT) HCG QUANTITATIVE 3,027 mIU/mL [facility] Comment: 5-50 0.2-1 WEEK 50-500 1-2 WEEKS 100-5,000 2-3 WEEKS 500-10,000 3-4 WEEKS 1,000-50,000 4-5 WEEKS 10,000-100,000 5-6 WEEKS 15,000-200,000 6-8 WEEKS 10,000-100,000 2-3 MONTHS 07/05/2025 10:1 4 AM EDT 07/05/2025 10:15 AM EDT Narrative [facility] - 07/05/2025 11:06 AM EDT us Jona Henley MD [facility] Final Result [facility] documented in this encounter Visit Diagnoses Not on filedocumented in this encounter Care Teams Oral And Maxillofacial Surgery Resident Relationship Specialty Start Date End Date Pete Thapa DO [address] [facility] [address] [place] [address] PCP - General Family Medicine 02/14/23 documented as of this encounter
--- OUTSIDE RECORDS SUMMARY | 2025-07-19 21:44 | XMS_ITS | Clinical Summary ---
Author Organization [facility] Address [facility] [place] [address] Care Team Providers Care Transfer Man Name Role Phone Luke Kerry KOCH Unavailable Jona Henley MD Unavailable [phone] Allergies Active Allergy Reactions Criticality Noted [...] Team Description 06/11/2025 Patient Msg Referring Physician [address] [place] [address] Provider, Ccf Referral 06/03/2025 Refill Dermatology [address] [place] [address] Mary Ann Ma MD Refill Request 04/28/2025 Refill Dermatology [address] [place] [address] Mary Ann Ma MD Refill Request 04/24/2025 Patient [facility] HB-3 [address] [place] [address] Kerry Choe RP At your next appointment, choose [facility]. from Last 3 Months Immunizations Immunization [...] is lower risk 7 08/16/2023 Data from: https://www.neighborhoodatlas.medicine.[facility]/. Last address used for calculation [...] C Screening 2020 Cervical Cancer Screening 2023 Covid-19 Vaccine (3 - 2024-2 6 season) 2025 03/09/2023, 12/22/2022 Influenza Vaccine (#1) 2025 , 06/23/2023, 08/03/2022, Additional history exists DTaP,Tdap,Td Vaccine (7 - Td or Tdap) 06/25/2025 06/25/2015, 01/30/2008, 11/08/2004, Additional history exists Hepatitis B Vaccine Completed 04/21/2003, 2002, 2002 HPV Vaccine Completed 07/13/2017, 12/15/2016 Medical Devices Implanted Type Area Technology Applications Consultant Device Identifier Shelf Expiration Date Model / Serial / Lot Tube Vent 4.8mm 1.32mm hrd - [id number] Implanted:Qty : 2 on 11/14/2011 at [facility] Implant Bilateral: Ear - Tympanic Membrane GYRUS GRP ENT 08/08/2019 [id number] / / [id number] Tube Malena Bobbin Vent [id number] - [id number] Implanted:Qty : 2 on 02/17/2010 at [facility] PE Tubes Bilateral: Ear - Tympanic Membrane 10/09/2014 [id number] / / [id number] Insurance [place] [employer] [place] Care Teams Transfer Man Relationship Specialty Start Date End Date Crtalic-Kerry Coates RD Formerly named [facility] [address] [address] Nutrition 04/04/23 Jona Henley MD [address] [place] [address] Referring Supply Chain Buyer 06/11/25
--- OUTSIDE RECORDS SUMMARY | 2025-07-19 21:44 | XMS_ITS | Encounter Summary ---
Author Organization [facility] Address [address] [place] [address] Care Team Providers Care Customer Service Rep Name Role Phone Pete Thapa DO Primary Care Provider [phone] Encounter Details Date Type Department Care Team (Late st Contact Info) Description 08/14/2023 Abstract [facility]ADI [address] [facility] 210 [place] [address] Jona Henley MD [address] [facility] 210 [place] [address] Social History Tobacco Use Types Packs/Day Years Used Date Smoking Tobacco: Never Smokeless Tobacco: Never Alcohol Use Standard Drinks/Week Comments Not Currently 0 (1 standard drink = 0.6 oz pur e alcohol) caffeine: none PHQ-2 Answer Date Recorded Patient Health Questionnaire-2 Score 0 06/29/2023 [place]cal[place] Depression Scale Answer Date Recorded [place] Depression Scale Total 0 08/10/2023 The thought [...] BRIGGSLALAN [address] [place] [address] 08/18/2025 12:45 PM EST Initial N[facility]fe SoOlivecarson APONTE [address] [place] [address] Jona Henley MD [address] [place] [address] documented as of this encounter Visit Diagnoses Not on filedocumented in this encounter Care Teams Customer Service Rep Relationship Specialty Start Date End Date Pete Thapa DO [address] [place] [address] PCP - General Family Medicine 02/14/23 documented as of this encounter
--- OUTSIDE RECORDS SUMMARY | 2025-07-19 21:44 | XMS_ITS | Clinical Summary ---
Author Organization [facility] Address [address] [facility], [address] [place] [address] Care Team Providers Care Crew Lead Name Role Phone Pete Thapa Primary Care Provider [phone] Allergies Active Allergy Reactions Criticality Noted Date [...] Hepatitis A vaccine Completed 07/13/2017, 7 Insurance [facility] MEDICAID Care Teams Crew Lead Relationship Specialty Start Date End Date Pete Thapa DO [address] [place] [address] PCP - General Family Medicine 10/01/23
--- OUTSIDE RECORDS SUMMARY | 2025-07-19 21:44 | XMS_ITS | Encounter Summary ---
Author Organization [facility] Address [address] [facility] [place] [address] Care Team Providers Care Boarding Room Fixer Name Role Phone Pete Thapa DO Primary Care Provider [phone] Encounter Details Date Type Department Care Team (Late st Contact Info) Description 07/14/2025 Orders Only [facility] Pena OBGYN [address] [facility] [address] [place] [address] Jona Henley MD [address] [facility] 210 [place] [address] Nausea (Primary Dx); examination or test, unconfirmed Social History Tobacco Use Types Packs/Day Years [...] friends, or neighbors? Once a week 06/11/20 25 How often do you get togethe r with friends or relatives? Three times a week 06/11/2025 How often do you attend [facility] or christianity services? 1 to 4 times per year 06/11/2025 Do you belong to any clubs o r organizations such as taoism groups, unions, fraternal or athletic groups, or [...] Recorded Patient Health Questionnaire-2 Score 0 06/13/2025 [facility] of Occupat ional Health - Occupational [...] things needed for daily living? No 06/11/2025 [place] Depression Scale Answer Date Recorded [place] Depression Scale Total 0 08/10/2023 The thought [...] any time in the past 12 m [facility], were you homeless or living in a retirement (including now)? No 06/11/2025 Comments No Sex [...] as of this encounter Progress Notes * Jona Henley MD - 07/14/2025 11:25 AM EDT UTI/Nausea documented in this encounter Plan of Treatment Upcoming Encounters Date Type Department Care Team (Late st Contact Info) Description 07/31/2025 2:45 PM EDT Ancillary Procedure [facility] [place] SMALLN [address] [place] [address] 08/18/2025 12:45 PM EST Initial [facility] [place] [facility]N [address] [place] [address] Jona Henley MD [address] [facility] [address] [place] [address] Scheduled Orders Name Type Priority Associated Diagnoses Orde r Schedule hCG, quantitative Lab Routine examination or test, unconfirmed Expected: 07/17/2025 (Approximate), Expires: 07/17/2026 documented as of this encounter Visit Diagnoses Diagnosis Nausea- Primary Nausea alone examination or test, unconfirmed documented in this encounter Care Teams Boarding Room Fixer Relationship Specialty Start Date End Date Pete Thapa DO [address] [facility] 230 [place] [address] PCP - General Family Medicine 02/14/23 documented as of this encounter
--- OUTSIDE RECORDS SUMMARY | 2025-07-19 21:44 | XMS_ITS | Encounter Summary ---
Author Organization [facility] Address [address] [place] [address] Care Team Providers Care Paint Mixer Machine Name Role Phone Pete Thapa Primary Care Provider [phone] Encounter Details Date Type Department Care Team (Latest Contact Info) Description 07/18/2025 Travel Social History Tobacco Use Types Packs/Day Years [...] often do you attend chur ch or gnosticist services? 1 to 4 times per year 06/11/2025 Do you belong to any clubs o r organizations such as yazidi groups, unions, fraternal or athletic groups, or [...] Recorded Patient Health Questionnaire-2 Score 0 06/13/2025 [facility] of Occupat ional Health - [...] things needed for daily living? No 06/11/2025 [place] Depression Scale Answer Date Recorded [place] Depression Scale Total 0 08/10/2023 The thought [...] any time in the past 12 m [facility], were you homeless or living in a intermediate (including now)? No 06/11/2025 Estimated Date of [...] SMALLN [address] [place] [address] 08/18/2025 12:45 PM EST Initial [facility] [place] SMALLN [address] [place] [address] Jona Henley MD [address] [place] [address] documented as of this encounter Goals Goal Patient Goal Type Associated Problems Recent Progress Patient-Stated? Author Reminders Care Plan OB Reminders No Laure Dumont, RN documented as of this encounter Visit Diagnoses Not on filedocumented in this encounter Additional Health Concerns Active Problems Noted Date Diagnosed Date OB Reminders 07/18/2025 documented as of this encounter Care Teams Paint Mixer Machine Relationship Specialty Start Date End Date Pete Thapa DO [address] [facility] [address] [place] [id number] PCP - General Family Medicine 02/14/23 documented as of this encounter
--- OUTSIDE RECORDS SUMMARY | 2025-07-19 21:44 | XMS_ITS | Encounter Summary ---
Author Organization [facility] Address [facility] [place] [address] Care Team Providers Care Environmental Health Aide Name Role Phone CristobalTanishaJaxon Kerry COONEY Unavailable Jona Henley MD Unavailable [phone] Source Comments In the event this information is protected by the Federal Confidentiality of Alcohol and Drug AbusePatient Records regulations: The Federal rules restrict any use of the information to criminally investigate or prosecute any alcohol or drug abuse patient.[facility] Reason for Visit * Reason Onset Date Comments Refill Request 06/03/2025 Encounter Details Date Type Department Care Team (Late st Contact Info) Description 06/03/2025 Refill Dermatology [address] [place] [address] Mary Ann Ma MD [address] [place] [address] Refill Request Social History Tobacco Use [...] is lower risk 7 08/16/2023 Data from: https://www.neighborhoodatlas.[facility]/. Last address used for calculation [address] [...] Patient will need an appointment routed to information technology program manager. Requested Prescriptions Pending Prescriptions Disp Refills clindamycin (CLEOCIN) 1 % external solution 60 mL 0 Sig: APPLY TO AFFECTED AREAS ON FACE ONCE EVERYDAY Please review and advise. RONALD Montenegro documented in this encounter Plan of Treatment Not on file documented as of this encounter Visit Diagnoses Diagnosis Acne vulgaris Other acne documented in this encounter Care Teams Environmental Health Aide Relationship Specialty Start Date End Date Crtalic-Kerry Coates RD [address] [address] Nutrition 04/04/23 Jona Henley MD [address] [address] Referring Recruitment Consultant 06/11/25 documented as of this encounter
--- OUTSIDE RECORDS SUMMARY | 2025-07-19 21:44 | XMS_ITS | Encounter Summary ---
Author Organization [facility] Address [address] [place] [address] Care Team Providers Care Tankroom Worker Name Role Phone Pete Thapa DO Primary Care Provider [phone] Encounter Details Date Type Department Care Team (Late st Contact Info) Description 09/07/2023 Abstract NOMEfe Pena FADI [address] [facility] 210 [place] [address] Jona Henley MD [address] [facility] 210 [place] [address] Social History Tobacco Use Types Packs/Day Years Used Date Smoking Tobacco: Never Smokeless Tobacco: Never Alcohol Use Standard Drinks/Week Comments Not Currently 0 (1 standard drink = 0.6 oz pur e alcohol) caffeine: none PHQ-2 Answer Date Recorded Patient Health Questionnaire-2 Score 0 06/29/2023 [place] Depression Scale Answer Date Recorded [place] Depression Scale Total 0 08/10/2023 The thought [...] SMALLN [address] [place] [address] 08/18/2025 12:45 PM EST Initial NOMEfe SoKerrcarson APONTE [address] [place] [address] Jona Henley MD [address] [place] [address] documented as of this encounter Visit Diagnoses Not on filedocumented in this encounter Care Teams Tankroom Worker Relationship Specialty Start Date End Date Pete Thapa DO [address] [place] [address] PCP - General Family Medicine 02/14/23 documented as of this encounter
--- OUTSIDE RECORDS SUMMARY | 2025-07-19 21:44 | XMS_ITS | Encounter Summary ---
Author Organization [facility] Address [facility] [place] [address] Care Team Providers Care Green Hide Inspector Name Role Phone Luke Kerry COONEY Unavailable Jona Henley MD Unavailable [phone] Source Comments In the event this information is protected by the Federal Confidentiality of Alcohol and Drug AbusePatient Records regulations: The Federal rules restrict any use of the information to criminally investigate or prosecute any alcohol or drug abuse patient.[facility] Encounter Details Date Type Department Care Team (Late st Contact Info) Description 01/23/2022 Get Medical Advice Dermatology [address] [place] [address] Mary Ann Ma MD [address] [facility] [address] [address] Ance Social History Tobacco Use [...] N ot on file 09/14/2020 Data from: https://www.neighborhoodatlas.medicine.[facility]/. Last address used for calculation [...] on filedocumented in this encounter Care Teams Green Hide Inspector Relationship Specialty Start Date End Date Crtmartina-Kerry Coates RD [address] [place] [address] Nutrition 04/04/23 Jona Henley MD [address] [place] [address] Referring Building Supervisor 06/11/25 documented as of this encounter
--- OUTSIDE RECORDS SUMMARY | 2025-07-19 21:44 | XMS_ITS | Encounter Summary ---
Author Organization [facility] Address [address] [place] [address] Care Team Providers Care Instrument Person Name Role Phone Cristobal-Kerry Coates RD Unavailable Jona Henley MD Unavailable [phone] Source Comments In the event this information is protected by the Federal Confidentiality of Alcohol and Drug AbusePatient Records regulations: The Federal rules restrict any use of the information to criminally investigate or prosecute any alcohol or drug abuse patient.[facility] Encounter Details Date Type Department Care Team (Late st Contact Info) Description 04/24/2025 Patient [facility] HB-3 [address] [place] [address] Kerry Choe RPh At your next appointment, choose [facility]. Social History Tobacco Use Types Packs/Day [...] is lower risk 7 08/16/2023 Data from: https://www.neighborhoodatlas.medicine.[facility]/. Last address used for calculation [...] on filedocumented in this encounter Care Teams Instrument Person Relationship Specialty Start Date End Date Crtali-Kerry Coates RD [address] [address] Nutrition 04/04/23 Jona Henley MD [address] [facility] 210 [place] [address] Referring Table Worker 06/11/25 documented as of this encounter
--- OUTSIDE RECORDS SUMMARY | 2025-07-19 21:44 | XMS_ITS | Encounter Summary ---
Author Organization [facility] Address [address] [place] [address] Care Team Providers Care Cnc Wood Lathe Operator Name Role Phone Pete Thapa DO Primary Care Provider [phone] Encounter Details Date Type Department Care Team (Late st Contact Info) Description 09/05/2023 Abstract NOMEfe Pena FADI [address] [facility] [address] [place] [address] Jona Henley MD [address] [facility] [address] [place] [address] Social History Tobacco Use Types Packs/Day Years Used Date Smoking Tobacco: Never Smokeless Tobacco: Never Alcohol Use Standard Drinks/Week Comments Not Currently 0 (1 standard drink = 0.6 oz pur e alcohol) caffeine: none PHQ-2 Answer Date Recorded Patient Health Questionnaire-2 Score 0 06/29/2023 [place] Depression Scale Answer Date Recorded [place] Depression Scale Total 0 08/10/2023 The thought [...] SMALLN [address] [place] [address] 08/18/2025 12:45 PM EST Initial NOMEfe SoCharitoncarson APONTE [address] [place] [address] Jona Henley MD [address] [place] [address] documented as of this encounter Visit Diagnoses Not on filedocumented in this encounter Care Teams Cnc Wood Lathe Operator Relationship Specialty Start Date End Date Pete Thapa DO [address] [place] [address] PCP - General Family Medicine 02/14/23 documented as of this encounter
--- OUTSIDE RECORDS SUMMARY | 2025-07-19 21:44 | XMS_ITS | Encounter Summary ---
Author Organization [facility] Address [address] [place] [address] Care Team Providers Care Supervisor Baking Name Role Phone Pete Thapa DO Primary Care Provider [phone] Encounter Details Date Type Department Care Team (Late st Contact Info) Description 07/18/2025 Results Follow-Up BRANDEN Pena OBGYN [address] [facility] 210 [place] [address] Jona Henley MD [address] [facility] 210 [place] [address] Urine culture, Urine Culture Clean Catch Reflex Social History Tobacco Use Types Packs/Day Years [...] week 06/11/2025 How often do you attend [facility] or voodoo services? 1 to 4 times per year 06/11/2025 Do you belong to any clubs o r organizations such as scientology groups, unions, fraternal or athletic groups, or [...] Recorded Patient Health Questionnaire-2 Score 0 06/13/2025 [facility] - Occupational [...] things needed for daily living? No 06/11/2025 [place] Depression Scale Answer Date Recorded [place] Depression Scale Total 0 08/10/2023 The thought [...] any time in the past [address] [facility] [place], were you homeless or living in a [...] [address] [place] [address] 08/18/2025 12:45 PM EST Initial [facility] [place] SMALLN [address] [place] [phone] Jona Henley MD [address] [place] [address] documented as of this encounter Goals Goal Patient Goal Type Associated Problems Recent Progress Patient-Stated? Author Reminders Care Plan OB Reminders Laure Stahl RN documented as of this encounter Visit Diagnoses Not on filedocumented in this encounter Additional Health Concerns Active Problems Noted Date Diagnosed Date OB Reminders 07/18/2025 documented as of this encounter Care Teams Supervisor Baking Relationship Specialty Start Date End Date Pete Thapa DO [address] [address] PCP - General Family Medicine 02/14/23 documented as of this encounter
--- OUTSIDE RECORDS SUMMARY | 2025-07-19 21:44 | XMS_ITS | Encounter Summary ---
Author Organization [facility] Address [address] [place] [address] Care Team Providers Care Glass Technologist Name Role Phone Cristobal-Kerry Coates RD Unavailable Jona Henley MD Unavailable [phone] Source Comments In the event this information is protected by the Federal Confidentiality of Alcohol and Drug AbusePatient Records regulations: The Federal rules restrict any use of the information to criminally investigate or prosecute any alcohol or drug abuse patient.[facility] Encounter Details Date Type Department Care Team (Late st Contact Info) Description 06/11/2025 Patient Msg Referring Physician [address] [place] [address] Provider, Ccf Referral Social History Tobacco Use [...] is lower risk 7 08/16/2023 Data from: https://www.neighborhoodatlas.medicine.[facility]/. Last address used for [...] filedocumented in this encounter Care Teams Glass Technologist Relationship Specialty Start Date End Date Crtalic-Kerry Caotes RD [address] [address] Nutrition 04/04/23 Jona Henley MD [address] [facility] [address] [place] [address] Referring Film Processing Shift Supervisor 06/11/25 documented as of this encounter
--- OUTSIDE RECORDS SUMMARY | 2025-07-19 21:44 | XMS_ITS | Encounter Summary ---
Author Organization [facility] Address [facility] [place] [address] Care Team Providers Care Tung Nut Grower Name Role Phone Luke Kerry COONEY Unavailable Jona Henley MD Unavailable Source Comments In the event this information is protected by the Federal Confidentiality of Alcohol and Drug AbusePatient Records regulations: The Federal rules restrict any use of the information to criminally investigate or prosecute any alcohol or drug abuse patient.[facility] Encounter Details Date Type Department Care Team (Late st Contact Info) Description 07/09/2021 Get Medical Advice Dermatology [address] [place] [address] Mary Ann Ma MD [address] [facility] [place] [address] RE: Test Result Question Social [...] N ot on file 09/14/2020 Data from: https://www.neighborhoodatlas.medicine.[facility]/. Last address used for calculation Not on [...] on filedocumented in this encounter Care Teams Tung Nut Grower Relationship Specialty Start Date End Date Crtalic-Kerry Coates RD [address] [address] Nutrition 04/04/23 Jona Henley MD [address] [facility] 210 [place] [address] Referring Advanced Manager 06/11/25 documented as of this encounter
--- OUTSIDE RECORDS SUMMARY | 2025-07-19 21:44 | XMS_ITS | Encounter Summary ---
Author Organization [facility] Address [address] [place] [address] Care Team Providers Care Sponge Diver Name Role Phone Pete Thapa DO Primary Care Provider [phone] Encounter Details Date Type Department Care Team (Late st Contact Info) Description 07/14/2025 Telephone [facility] [place] APONTE [address] [facility] [address] [place] [address] Jessy Barcenas LPN Social History Tobacco Use Types Packs/Day Years [...] How often do you attend chur or episcopalian services? 1 to 4 times per year 06/11/2025 Do you belong to any clubs o r organizations such as adventist groups, unions, fraternal or athletic groups, or [...] Recorded Patient Health Questionnaire-2 Score 0 06/13/2025 [facility] - Occupational [...] things needed for daily living? No 06/11/2025 [place] Depression Scale Answer Date Recorded [place] Depression Scale Total 0 08/10/2023 The thought [...] were you homeless or living in a penitentiary (including now)? No 06/11/2025 Comments No Sex [...] encounter Miscellaneous Notes * Telephone Encounter - Deisy Michelle LPN - 07/15/2025 8:40 AM EDT Pt is scheduled for appt. ATB will be determined at visit. Closing encounter * Telephone Encounter - Jona Henley MD - 07/14/2025 3:58 PM EDT Did she complete keflex * Telephone Encounter - Deisy Michelle LPN - 07/14/2025 3:14 PM EDT Pt returns call, she states her allergy to PCN is rash . Pt can't recall if she has taken Keflex inthe past, however in reviewing her chart she has had in in the past most recently 06/29/25 for acutecyctisits. ( Angélica Talbot DANCE COSTUME DESIGNER) * Telephone Encounter - Jona Henley MD - 07/14/2025 12:58 PM EDT What is her reacrion to [facility] Has she taken Keflex with a problem? * Telephone Encounter - Jessy Barcenas LPN - 07/14/2025 10:08 AM EDT Pt called office regarding burning during urination. Pt states she haad uti weeks ago- prescribed ATB. Also would like something for nausea - 6 weeks gestation per pt [facility] [place]. Pt states appt with [facility] 07/18/25 documented in this encounter Plan of Treatment Upcoming Encounters Date Type Department Care Team (Late st Contact Info) Description 07/31/2025 2:45 PM EDT Ancillary Procedure [facility] [place] [facility]ONTE [address] [place] [address] 08/18/2025 12:45 PM EST Initial [facility] [place] APONTE [address] [place] [address] Jona Henley MD [address] [place] [address] documented as of this encounter Visit Diagnoses Not on filedocumented in this encounter Care Teams Sponge Diver Relationship Specialty Start Date End Date Pete Thapa DO [address] [place] [address] PCP - General Family Medicine 02/14/23 documented as of this encounter
--- OUTSIDE RECORDS SUMMARY | 2025-07-19 21:45 | XMS_ITS | Encounter Summary ---
Author Organization [facility] Address [facility] [place] [address] Care Team Providers Care Repairer Veneer Sheet Name Role Phone Luke Kerry COONEY Unavailable Jona Henley MD Unavailable [phone] Source Comments In the event this information is protected by the Federal Confidentiality of Alcohol and Drug AbusePatient Records regulations: The Federal rules restrict any use of the information to criminally investigate or prosecute any alcohol or drug abuse patient.[facility] Encounter Details Date Type Department Care Team (Late st Contact Info) Description 09/11/2021 Get Medical Advice Dermatology [address] [place] [address] Mary Ann Ma MD [address] [facility] [place] [place] [address] Ance medicine Social History Tobacco [...] N ot on file 09/14/2020 Data from: https://www.neighborhoodatlas.medicine.[facility]/. Last address used for calculation Not on [...] on filedocumented in this encounter Care Teams Repairer Veneer Sheet Relationship Specialty Start Date End Date Crtmildred-Kerry Coates RD [address] [address] Nutrition 04/04/23 Jona Henley MD [address] [facility] 210 [place] [address] Referring Video Game Repair Technician 06/11/25 documented as of this encounter
--- OUTSIDE RECORDS SUMMARY | 2025-07-19 21:45 | XMS_ITS | Encounter Summary ---
Author Organization [facility] Address [facility] [place] [address] Care Team Providers Care Rubbing Bed Operator Name Role Phone Kerry Butler RD Unavailable Jona Henley MD Unavailable [phone] Source Comments In the event this information is protected by the Federal Confidentiality of Alcohol and Drug AbusePatient Records regulations: The Federal rules restrict any use of the information to criminally investigate or prosecute any alcohol or drug abuse patient.[facility] Encounter Details Date Type Department Care Team (Late st Contact Info) Description 11/28/2023 Get Medical Advice Podiatry [address] [place] [address] Ángela Mancera, DPM [address] [place] [address] Toenail scheduling Social History Tobacco [...] is lower risk 7 08/16/2023 Data from: https://www.neighborhoodatlas.[facility]/. Last address used for calculation [address] [...] on filedocumented in this encounter Care Teams Rubbing Bed Operator Relationship Specialty Start Date End Date Crtali-Kerry Coates RD [address] [address] Nutrition 04/04/23 Jona Henley MD [address] [facility] 210 [place] [address] Referring Auto Service Instructor 06/11/25 documented as of this encounter
--- OUTSIDE RECORDS SUMMARY | 2025-07-19 21:45 | XMS_ITS | Encounter Summary ---
Author Organization [facility] Address [address] [place] [address] Care Team Providers Care Pyroglazer Name Role Phone Pete Thapa DO Primary Care Provider [phone] Encounter Details Date Type Department Care Team (Late st Contact Info) Description 01/18/2024 Clinisync Result Encounter [facility] External Department Unsolicited Jona Vann MD [address] [place] [address] Social History Tobacco Use Types Packs/Day Years [...] friends or relatives? Patient declined 11/12/2023 Attends Yarsanism Services Not on file 11/12 Do you belong to any clubs o r organizations such as buddhist groups, unions, fraternal or athletic groups, or [...] needed for daily living? Patient declined 11/12/2023 [place] Depression Scale Answer Date Recorded [place] Depression Scale Total 0 08/10/2023 The thought [...] BRIGGSGYN [address] [place] [address] 08/18/2025 12:45 PM EST Initial [facility] [place] SMALLN [address] [place] [address] Jona Vann MD [address] [place] [address] documented as of this encounter Procedures Procedure Name Priority Date/Time Associated Diagnosis Comments US PELVIS W/ TRANSVAGINAL 01/18/2024 7:45 AM EDT documented in this encounter Results * US PELVIS W/ TRANSVAGINAL (01/18/2024 7:45 AM EDT) Anatomical Region Laterality Modality Other 01/18/2024 7:45 AM EDT Narrative 01/18/2024 7:47 AM EDT The [address] [address] Ultrasound Report Signed Patient: CHARIS ALLEN MR#: [id number] : 2000 Acct:[id number] Age/Sex: 23 / F ADM Date: 01/17/24 Loc: US Attending Dr: JONA VANN Ordering Physician: JONA VANN Date of Service: 01/17/24 Procedure(s): US pelvis w/ transvaginal Accession Number(s): [id number] cc: VANN,Diane JOHNSON The [place] [id number] Patient Name: CHARIS ALLEN MRN: [facility]:[id number] date: 2000 Sex: F Assigned Patient Location: US Current Patient Location: Accession/Order Number: [id number] Exam Date: 01/17/2024 17:40 Report Date: 01/18/2024 [...] Signed By: 01/18/24 0747 DD/ 0745 TD/TT: Plastics Technician: Procedure Note Radiology, Radiologist, MD - 01/18/2024 [place] [address] Ultrasound Report Signed Patient: CHARIS ALLEN EMR#: [id number] : 2000Acct:[id number] Age/Sex: 23 / FADM Date: 01/17/24 Loc: US Attending Dr: JONA VANN Ordering Physician: JONA VANN Date of Service: 01/17/24 Procedure(s): US pelvis w/ transvaginal Accession Number(s): [id number] cc: JONA VANN ; Diane THAPA [place] [address] [place] [id number] Patient Name: CHARIS ALLEN MRN: [id number] date: 2000 Sex: F Assigned Patient Location: US Current Patient Location: Accession/Order Number: [id number] Exam Date: 01/17/2024 17:40 Report Date: 01/18/2024 [...] 07:45 Dictated By: Caden Monson M.D. Signed By:01/18/24 0747 DD/ TD/TT: Plastics Technician: us Jona Vann MD [facility] Final Result documented in this encounter Visit Diagnoses Not on filedocumented in this encounter Care Teams Pyroglazer Relationship Specialty Start Date End Date Pete Thapa DO [address] [place] [address] PCP - General Family Medicine 02/14/23 documented as of this encounter
--- OUTSIDE RECORDS SUMMARY | 2025-07-19 21:45 | XMS_ITS | Encounter Summary ---
Author Organization [facility] Address [facility] [place] [address] Care Team Providers Care Mechanical Integrity Specialist Name Role Phone Luke Kerry COONEY Unavailable Jona Henley MD Unavailable [phone] Source Comments In the event this information is protected by the Federal Confidentiality of Alcohol and Drug AbusePatient Records regulations: The Federal rules restrict any use of the information to criminally investigate or prosecute any alcohol or drug abuse patient.[facility] Encounter Details Date Type Department Care Team (Late st Contact Info) Description 10/14/2024 Patient Msg Dermatology [address] [place] [address] Mary Ann Ma MD [address] [facility] [place] [address] Appointment Request Social History Tobacco [...] is lower risk 7 08/16/2023 Data from: https://www.neighborhoodatlas.medicine.[facility]/. Last address used for calculation 26 [...] on filedocumented in this encounter Care Teams Mechanical Integrity Specialist Relationship Specialty Start Date End Date Crtalic-Kerry Coates RD [address] [address] Nutrition 04/04/23 Jona Henley MD [address] [facility] 210 [place] [address] Referring Student Admissions Clerk 06/11/25 documented as of this encounter
--- OUTSIDE RECORDS SUMMARY | 2025-07-19 21:45 | XMS_ITS | Encounter Summary ---
Author Organization [employer] [facility] [employer] Address [id number] [address] [place] [address] Care Team Providers Care Fan Installer Name Role Phone Alanis Sky DO, George R Primary Care Provider + Reason for Visit * Reason Onset Date Comments Med Refill 02/09/2023 Encounter Details Date Type Department Care Team (Late st Contact Info) Description 02/09/2023 [facility] [address] [place] [address] Phuong Stiles CMA Med Refill [...] asked that a script be sent to [facility] in [place]. documented in this encounter Plan of Treatment Upcoming Encounters Date Type Department Care Team (Late st Contact Info) Description 09/29/2025 4:00 PM EST Telemedicine [facility] Department of [facility] [address] [place] [phone] Bari Caro MD [address] [facility] [address] [place] [address] documented as of this encounter Goals Goal [...] documented as of this encounter Care Teams Fan Installer Relationship Specialty Start Date End Date Pete Thapa Jr., [address] [place] [address] PCP - General Family Medicine 02/26/25 documented as of this encounter
--- OUTSIDE RECORDS SUMMARY | 2025-07-19 21:45 | XMS_ITS | Encounter Summary ---
Author Organization [facility] Address [facility] [place] [address] Care Team Providers Care Sandfill Operator Name Role Phone Luke Kerry COONEY Unavailable [phone] Jona Henley MD Unavailable [phone] Source Comments In the event this information is protected by the Federal Confidentiality of Alcohol and Drug AbusePatient Records regulations: The Federal rules restrict any use of the information to criminally investigate or prosecute any alcohol or drug abuse patient.[facility] Encounter Details Date Type Department Care Team (Late st Contact Info) Description 07/23/2024 Patient Msg Dermatology [address] [place] [address] Mary [place] Ma MD [address] [facility] [place] [address] Appointment Request Social History Tobacco [...] is lower risk 7 08/16/2023 Data from: https://www.neighborhoodatlas.medicine.[facility]/. 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
--- OUTSIDE RECORDS SUMMARY | 2025-07-19 21:45 | XMS_ITS | CCD ---
Author Organization [facility] Care Team Providers Care Game Designer/Creative Director Name Role Phone SREEKANTH JOHNSON Unavailable Unavailable SELF, REFERRED Unavailable Unavailable SELF, REFERRED Unavailable Unavailable LENA REDDY Unavailable Unavailable Maragrita Chiu Attending Physician Unavailable Unavailable Primary Care [...] Provider DO Katie Thapa Primary Care Provider [phone] MD Jona Vann Attending Provider Salas Patricia [...] LEVIN Attending Unavailable Crtalic-Jaxon COONEY, Kerry Unavailable Alanis Sky DO, George R Primary [...] Provider U navailable Crtalic-Kerry Coates RD Unavailable [phone] Katie Thapa DO Primary Care Provider [phone] Yaritza Bauer APRN Emergency Provider ANIL THAPA [...] Care Provider Chris White MD Attending Provider [phone] Yung Nichols Jr Admitting Unavailable Yung Nichols [...] source) lactose Drug Allergy 02-15-20 17 [facility] Repository (20 sources) Cyproheptadine; Translations: [CYPROHEPTADINE ] Drug Allergy 08-02-20 13 Diarrhea, Other: See Comments, Other (See Comments) [facility] (20 sources) Seasonal allergy; Translations: [SEASONAL ALLERGIES] Propensity to adverse reactions 12-25-19 10 [facility] (20 sources) Doxycycline; Translations: [DOXYCYCLINE] Drug Allergy 11-29-19 22 Other: See Comments, rash, Dizziness, Dizziness or Vertigo, Other (See Comments) [facility] Work Phone: (20 sources) Penicillin G; Translations: [PENICILLIN G SODIUM] Drug Allergy 11-29-19 22 Rash [facility] Work Phone: (20 sources) Penicillins; Translations: [Penicillins] Allergy to substance 08-03-20 23 Unknown Reaction, Unknown Reaction, rash [facility] (20 sources) Azithromycin; Translations: [azithromycin] Drug Allergy 08-17-20 23 Unknown Reaction [facility] Comment on above: Tachycardia and rash (20 sources) oxyCODONE; Translations: [oxycodone] Drug Allergy 08-17-20 23 Palpitations [facility] (5 sources) Penicillin Drug Allergy rash [employer] Other (20 sources) Penicillin G sodium Allergy to substance 11-29-19 Rash [facility] (20 sources) Levonorgestrel- Ethinyl Estrad; Translations: [LEVONORGESTREL -ETHINYL ESTRAD] Drug Intolerance 12-25-19 10 Other (See Comments) [facility] (15 sources) Pollen; Translations: [POLLEN EXTRACTS] Propensity to adverse reactions to drug 08-20-20 24 Other (See Comments) [facility] (1 source) Doxycycline Drug Allergy 02-19-20 25 [facility] Repository Medications Current Medications Medication [...] a day. cephalexin 500 mg oral capsule (19 sources) Cephalosporin Antibacterial Start: 07-15-2025 End: 07-25-2025 cephalexin (Keflex) 500 MG capsule Indications: Vaginal burning , Vaginal irritation , Vaginal itching Take 1 capsule (500 mg) by mouth in the morning and 1 capsule (500 mg) at noon and 1 capsule (500 mg) in the evening and 1 capsule (500 mg) before bedtime. Do all this for 10 days. 40 capsule 07/15/2025 07/25/2025 Active Start: 06-28-2024 End: 02-18-2025 take 2 capsules [...] topical solution (20 sources) Lincosamide Antibacterial Start: 06-03-2025 End: 06-13-2025 clindamycin (Cleocin T) 1 % external solution Indications: Acne vulgaris Apply topically in the morning and before bedtime. APPLY TO AFFECTED AREAS ON FACE ONCE A DAY. 30 mL 3 06/13/2025 Active Start: 03-19-2025 clindamycin (C LEOCIN) 1 % [...] Jun, Active meclofenamate 100 mg oral capsule (11 sources) Start: meclofenamate (Meclomen) 100 MG capsule Indications: Chiari malformation type I (HCC) One tablet tid on menses No hormones due to Chiari malformation 120 capsule 2 06/10/2025 Active 24 hr methylphenidate hydrochloride 18 mg extended release oral tablet (20 sources) Central Nervous System Stimulant Start: End: take 1 tablet by mouth in [...] mouth once daily. methylPREDNISolone (6 sources) Corticosteroid Start: 2023 methylPREDNISolone (MEDROL, BRADFORD,) 4 mg tablet Indications: Tongue swelling follow package directions 21 tablet 09/03/2024 Active metroNIDAZOLE 500 mg oral tablet (2 sources) Nitroimidazole Antimicrobial Start: 2023 End: 2023 take 1 tablet by mouth in the morning, then take 1 tablet by mouth at bedtime metroNIDAZOLE (FLAGYL) 500 mg tablet Take 1 tablet (500 mg total) by mouth in the morning and 1 tablet (500 mg total) before bedtime. 08/17/2024 08/24/2024 Active nitrofurantoin, macrocrystals 25 mg / nitrofurantoin, monohydrate 75 mg oral capsule (1 source) Nitrofuran Antibacterial Start: 2024 End: 2024 take 1 capsule by mouth in the morning nitrofurantoin, macrocrystal-monohydrat e, (Macrobid) 100 MG capsule Indications: Urinary tract infection without hematuria, site unspecified Take 1 capsule (100 mg) by mouth in the morning and 1 capsule (100 mg) before bedtime. Do all this for 7 days. 14 capsule 06/13/2025 06/20/2025 Active ondansetron 4 mg oral tablet (20 sources) Serotonin-3 Receptor Antagonist Start: 2024 End: 2024 take 1 tablet by mouth twice daily as needed for nausea ondansetron (Zofran) 4 MG tablet Indications: Nausea Take 1 tablet (4 mg) by mouth 2 (two) times a day as needed for nausea or vomiting 20 tablet 07/14/2025 08/13/2025 Active Start: 11-16-2024 End: 06-10-2025 take 1 tablet [...] Vit-Fe Fumarate-FA ( Vitamins) 28-0.8 MG tablet (3 sources) Start: 2024 End: 2025 take 1 tablet by mouth once daily Vit-Fe Fumarate-FA ( Vitamins) 28-0.8 MG tablet Indications: confirmed by positive blood test ([facility]) Take 1 tablet by mouth Daily 30 [...] 1 mg/ml topical cream (13 sources) Corticosteroid Start: 2024 End: 2024 triamcinolone (Kenalog) 0.1 % cream Indications: [...] every six hours as needed for pain Butalbital-Acetamin ophen-Caff 50-325-40 mg capsule Discontinued 1 CAP PO [...] tablet Discontinued 500 MG PO Daily 7 August 03, 2023 12:00am August 17, [...] Take 1 tablet by tucker once daily. ibuprofen 800 mg oral tablet [...] on above: Take 1 capsule by mo [facility] twice daily. miSOPROStol 0.2 mg oral [...] Comment on above: [facility]. at the onset of headache; [...] on above: Take 2 tablets by mo [facility] once daily. Take 1 tablet by [facility] once daily. tiZANidine 4 mg oral tablet [...] adenoids] Onset: 07-03-2024 07-03-2024 Chronic Administrative/social admission (5 sources) Patient encounter status; [...] of occurrence of the external cause; Translations: [[facility]] Onset: 06-13-2017 External Injury - Unspecified (1 source) Activity, volleyball ([employer]) (court); Translations: [ACTIVITY, VOLLEYBALL ([employer]) (COURT)] Onset: 06-13-2017 Headache; including migraine (20 [...] 10-13-2022 Episodic Other aftercare (1 source) Other halfway (current) drug therapy; Translations: [OTH PENITENTIARY CURRENT DRUG THERAPY] Onset: 10-13-2022 Episodic Other [...] - overweight; Translations: [Overweight] 01-01-2024 Episodic Other and delivery including normal (1 source) care status; Translations: [Encounter for supervision of other normal , first trimester] 07-18-2025 Episodic Other screening for suspected conditions (not mental disorders or infectious disease) (20 sources) Abnormal results of thyroid function studies; Translations: [Thyroid function tests abnormal] Onset: 12-14-2022 Episodic Other skin disorders (4 [...] 7 WKS PREG // BLEEDING Onset: 12-13-2024 Unclassified (1 source) OB Reminders Onset: 07-18-2025 07-18-2025 Urinary tract infections (4 sources) Urinary tract [...] weight gain] Onset: 12-14-2022 06-29-2023 Episodic Other skin disorders (20 sources) Acne [...] Onset: 12-27-2022 Resolved: 07-10-2023 07-10-2023 Chronic Spontaneous (18 sources) Complete or unspecified spontaneous without complication; Translations: [Miscarriage] Onset: 02-26-2025 03-30-2025 Episodic Unclassified (1 source) Contact with and (suspected) exposure to covid-19 Z20.822 Onset: 06-24-2022 Resolved: 06-24-2022 Results Test Name Value Interpretation Reference Range Facility [facility] PREG QUANT HCGon 025 HCG QUANTITATIVE 74563 mIU/mL [facility] Comment on above: 5-50 0.2-1 WEEK 50-500 1-2 WEEKS 100-5,000 2-3 WEEKS 500-10,000 3-4 WEEKS 1,000-50,000 4-5 WEEKS 10,000-100,000 5-6 WEEKS 15,000-200,000 6-8 WEEKS 10,000-100,000 2-3 MONTHS [facility] PREG QUANT HCGon 025 HCG QUANTITATIVE 3027 mIU/mL [facility] Comment on above: 5-50 0.2-1 WEEK 50-500 1-2 WEEKS 100-5,000 2-3 WEEKS 500-10,000 3-4 WEEKS 1,000-50,000 4-5 WEEKS 10,000-100,000 5-6 WEEKS 15,000-200,000 6-8 WEEKS 10,000-100,000 2-[facility] 025 HCG QUANTITATIVE 805 mIU/mL [facility] Comment on above: 5-50 0.2-1 WEEK 50-500 1-2 WEEKS 100-5,000 2-3 WEEKS 500-10,000 3-4 WEEKS 1,000-50,000 4-5 WEEKS 10,000-100,000 5-6 WEEKS 15,000-200,000 6-8 WEEKS 10,000-100,000 2-3 [facility] METHYLENETETRAHYDROFOLATE RE DUCTASE (MTHFR) THERMOLABILSon 06-16-2025 Interpretation and review of laboratory results Comment [facility] Comment on above: Technical Component performed at [facility] RT Professional Component performed by: Rohit Caballero, PhD, [facility] [id number], [facility], [address] [facility] [place] [address] MTHFR gene targeted mutation analysis [facility] Nom (Bld/Tiss) Comment [facility] Comment on above: Result: c.665C>T (p. [id number]), legacy name: [id number] - Not Detected c.1286A>C (p. [id number]), legacy name: [id number] - Not Detected Interpretation: This result is [...] that can decrease enzyme activity; c.665C>T (p. [id number]), legacy name [id number], and c.1286A>C (p. [id number]), legacy name [id number]. These variants do not independently increase risk [...] to limited evidence of clinical utility (PMID: 27254039). Comments: Genetic Coordinators are available for health care providers to discuss results at [phone]). Test Details: Variants Analyzed: c.665C>T (p. [id number]), legacy name: C677T and c.1286A>C (p. [id number]), legacy name: [id number] Methods/Limitations: DNA analysis of the MTHFR gene [...] developed and its performance characteristics determined by [employer]. It has not been cleared or approved by the Food and Drug Administration. References: Adelakey SE, Coronel CJ, Kelsey HV. ACMG Practice Guideline: lack of evidence for MTHFR polymorphism testing. Jennyfer Med. 2013 Nov;15(2):153-6. doi: 10.1038/gim.2012.165. Epub 2012Oct 11. PMID: 81538812. [place] [employer]' Committee on Practice Bulletins-Obstetrics. ACOG Practice Bulletin No. 197: Inherited Thrombophilias in . Obstet Gynecol. 2018 Apr;132(1):e18-e34. doi: 10.1097/AOG.6077385270686650. Erratum in: Obstet Gynecol. 2018 Jul;132(4):1069. PMID: 27685154. Performed at: - [facility] [address] [place], [place] [id number] Revit Drafter: Madyson Gillette [facility], Phone: [phone] [facility] Urine Cultureon 04-17-2025 Bacteria identified Cx Nom (U) >100,000 colonies/ml mixed bacterial skin contaminants 2 Days PERFORMED BY: [place] [address] PATHOLOGIST IRRIGATING PUMP OPERATOR ANNA KEENAN M.D. Normal [facility] Comment on above: Performed By: #### F S #### [address] #### GCCHLAMAMP #### [facility] , HCG-BETA, SERUMon 02-27-2025 HCG.beta subunit Qn 5375 m[IU]/mL Normal [facility] Comment on above: Order Comment: [...] neoplasms. Performed By: #### H CG #### [address] [address] VIR HEMOGLOBIN AND HEMATOCRIT, B LOCanajoharie 02-27-2025 Hematocrit (Bld) [Volume fraction] 36.1 % Normal 35-47 [facility] Comment on above: Performed By: #### H H #### [address] [address] VIR Hemoglobin (Bld) [Mass/Vol] 12.5 g/dL Normal 11.7-15.5 [facility] Comment on above: Performed By: #### H H #### [address] [address] VIR CBC WITH AUTO DIFFERENTIALon 02-26-2025 BASOPHILS ABSOLUTE COUNT (10*3/UL) BY AUTOMATED COUNT 0.1 10*3/uL Normal 0.0-0.2 [facility] Comment on above: Performed By: #### C BCA #### [facility] ([address] [address] VIR BASOPHILS RELATIVE PERCENT BY AUTOMATED COUNT 0.7 % Normal [facility] Comment on above: Performed By: #### C BCA #### [address] [address] VIR CELLAVISION DIFFERENTIAL TYPE AUTOMATED DIFFERENTIAL Normal [facility] Comment on above: Performed By: #### C BCA #### [facility] ([address] [address] VIR Eosinophils (Bld) [#/Vol] 0.0 10*3/uL Normal 0.0-0.4 [facility] Comment on above: Performed By: #### C BCA #### [facility] ([address] [place] [address] VIR EOSINOPHILS RELATIVE PERCENT BY AUTOMATED COUNT 0.5 % Normal [facility] Comment on above: Performed By: #### C BCA #### [facility] ([address] [place] [address] VIR Erythrocyte distribution width (RBC) [Ratio] 13.2 % Normal 11.5-15 [facility] Comment on above: Performed By: #### C BCA #### [facility] ([address] [address] VIR Hematocrit (Bld) [Volume fraction] 43.1 % Normal 35-47 [facility] Comment on above: Performed By: #### C BCA #### [facility] ([address] [address] VIR Hemoglobin (Bld) [Mass/Vol] 14.6 g/dL Normal 11.7-15.5 [facility] Comment on above: Performed By: #### C BCA #### [facility] ([address] [place] [address] VIR LYMPHOCYTES ABSOLUTE COUNT (10*3/UL) BY AUTOMATED COUNT 1.7 10*3/uL Normal 1.0-3.5 [facility] Comment on above: Performed By: #### C BCA #### [facility] ([address] [address] VIR LYMPHOCYTES RELATIVE PERCENT BY AUTOMATED COUNT 20.4 % Normal [facility] Comment on above: Performed By: #### C BCA #### [facility] ([place]) [address] [place] [address] VIR MCH (RBC) [Entitic mass] 30.8 pg Normal 27-34 [facility] Comment on above: Performed By: #### C BCA #### [facility] ([address] [place] [address] VIR MCHC (RBC) [Mass/Vol] 33.8 g/dL Normal 32-36 [facility] Comment on above: Performed By: #### C BCA #### [facility] ([address] [place] [address] VIR MCV (RBC) [Entitic vol] 91 fL Normal 80-100 [facility] Comment on above: Performed By: #### C BCA #### [facility] ([address] [address] VIR MONOCYTES ABSOLUTE COUNT (10*3/UL) BY AUTOMATED COUNT 0.7 10*3/uL Normal 0.0-0.9 [facility] Comment on above: Performed By: #### C BCA #### [facility] ([address] [address] VIR MONOCYTES RELATIVE PERCENT BY AUTOMATED COUNT 8.1 % Normal [facility] Comment on above: Performed By: #### C BCA #### [facility] ([address] [place] [address] VIR NEUTROPHILS ABSOLUTE COUNT BY AUTOMATED COUNT 6.0 10*3/uL Normal 1.5-6.6 [facility] Comment on above: Performed By: #### C BCA #### [facility] ([address] [address] VIR NEUTROPHILS RELATIVE PERCENT BY AUTOMATED COUNT 70.3 % Normal [facility] Comment on above: Performed By: #### C BCA #### [facility] ([address] [place] [address] VIR Platelet mean volume (Bld) [Entitic vol] 8.1 fL Normal 7-12 [facility] Comment on above: Performed By: #### C BCA #### [facility] ([place] [address] [place] [address] VIR Platelets (Bld) [#/Vol] 239 10*3/uL Normal 150-450 [facility] Comment on above: Performed By: #### C BCA #### [facility] ([address] [place] [address] VIR RBC COUNT 4.72 X10E12/L Normal 3.8-5.2 [facility] Comment on above: Performed By: #### C BCA #### [facility] ([address] [place] [address] VIR WBC (Bld) [#/Vol] 8.6 10*3/uL Normal 4-11 [facility] Comment on above: Performed By: #### C BCA #### [facility] ([address] [place] [address] VIR COMPREHENSIVE METABOLIC PANE Yogi 02-26-2025 Albumin [Mass/Vol] 4.5 g/dL Normal 3.2-5.3 [facility] Comment on above: Performed By: #### C MP #### [facility] ([address] [place] [address] VIR ALP [Catalytic activity/Vol] 67 U/L Normal 39-130 [facility] Comment on above: Performed By: #### C MP #### [facility] ([address] [place] [address] VIR ALT [Catalytic activity/Vol] 27 U/L Normal <=31 [facility] Comment on above: Performed By: #### C MP #### [facility] ([address] [place] [address] VIR Anion gap [Moles/Vol] 5 mmol/L Normal 5-15 [facility] Comment on above: Performed By: #### C MP #### [facility] ([address] [place] [address] VIR AST [Catalytic activity/Vol] 24 U/L Normal <=41 [facility] Comment on above: Performed By: #### C MP #### [facility] ([address] [place] [address] VIR Bilirubin [Mass/Vol] 2.0 mg/dL High 0.3-1.2 [facility] Comment on above: Performed By: #### C MP #### [facility] ([address] [place] [address] VIR Calcium [Mass/Vol] 8.8 mg/dL Normal 8.5-10.5 [facility] Comment on above: Performed By: #### C MP #### [facility] ([address] [place] [address] VIR Chloride [Moles/Vol] 100 mmol/L Normal 98-109 [facility] Comment on above: Performed By: #### C MP #### [facility] ([address] [place] [address] VIR CO2 [Moles/Vol] 27 mmol/L Normal 22-32 [facility] Comment on above: Performed By: #### C MP #### [facility] ([address] [place] [address] VIR Creatinine [Mass/Vol] 0.71 mg/dL Normal 0.40-1.00 [facility] Comment on above: Result Comment: METH OD TRACEABLE TO IDMS STANDARD Performed By: #### C MP #### [facility] ([address] [facility] [place] [address] VIR EGFR (CKD-EPI) NON-RACE DEPENDENT >^90 Normal >=60 [facility] Comment on above: Result Comment: eGFR not reported due to non-numeric value for Creatinine. Reported eGFR is based on the CKD-EPI 2020 equation that does not use a race coefficient. Performed By: #### C MP #### [facility] ([address] [place] [address] VIR Glucose [Mass/Vol] 100 mg/dL High 65-99 [facility] Comment on above: Performed By: #### C MP #### [facility] ([address] [address] VIR Potassium [Moles/Vol] 3.4 mmol/L Low 3.5-5.0 [facility] Comment on above: Performed By: #### C MP #### [facility] ([address] [address] VIR Protein [Mass/Vol] 7.4 g/dL Normal 6.0-8.0 [facility] Comment on above: Performed By: #### C MP #### [facility] ([address] [address] VIR Sodium [Moles/Vol] 132 mmol/L Low 134-146 [facility] Comment on above: Performed By: #### C MP #### [facility] ([address] [address] VIR Urea nitrogen [Mass/Vol] 12 mg/dL Normal 5-23 [facility] Comment on above: Performed By: #### C MP #### [facility] ([address] [address] VIR HCG-BETA, SERUMon 02-26-2025 [place] [address] m[IU]/mL Normal [facility] Comment on above: Order Comment: WEEKS [...] neoplasms. Performed By: #### H CG #### [address] [address] VIR POCT NURSING URINE MACROSCOP IC UAon 02-26-2025 BILIRUBIN EMILY Negative Normal Negative [facility] Comment on above: Performed By: #### N UM #### [address] [address] VIR BLOOD/HGB EMILY Large Abnormal Negative [facility] Comment on above: Performed By: #### N UM #### [address] [address] VIR GLUCOSE EMILY Negative Normal Negative [facility] Comment on above: Performed By: #### N UM #### [address] [address] VIR KETONES EMILY 15 mg/dL Abnormal Negative [facility] Comment on above: Performed By: #### N UM #### [address] [address] VIR LEUKOCYTE ESTERASE EMILY Negative Normal Negative [facility] Comment on above: Performed By: #### N UM #### [address] [address] VIR NITRITE EMILY Negative Normal Negative [facility] Comment on above: Performed By: #### N UM #### [facility] ([address] [address] VIR PH EMILY 6.0 Normal 5.0, 6.0, 6.5, 7.0, 7.5, 8.0, 8.5, 5.5 [facility] Comment on above: Performed By: #### N UM #### [facility] ([address] [address] VIR PROTEIN EMILY Negative Normal Negative [facility] Comment on above: Performed By: #### N UM #### [facility] ([address] [address] VIR SPECIFIC GRAVITY EMILY 1.015 Normal 1.010, 1.015, 1.020, 1.025 [facility] Comment on above: Performed By: #### N UM #### [facility] ([address] [address] VIR UROBILINOGEN EMILY 0.2 E.U./dL Normal [facility] Comment on above: Performed By: #### N UM #### [facility] ([address] [address] VIR POCT , URINE (NUCG) on 02-26-2025 Beta HCG ( test) Ql (U) Positive Abnormal Negative [facility] Comment on above: Performed By: #### N UCG #### [facility] ([address] [address] VIR URINE CULTUREon 02-26-2025 Bacteria identified Cx Nom (U) CULTURE RESULTS <10,000 ORGANISMS/mL NORMAL URO GENITAL SHAQ Normal [facility] Comment on above: Performed By: #### 2 0415-6 #### [facility] ([id number]) [address] [place] [address], [place] [address] US PREG LESS THAN 14 WKS FOR [...] Rohit Matos MD on 02/26/2025 7:56 PM IYung MD have personally reviewed the image(s) and agree with and/or edited the report Finalized by Yung Alonso MD on 02/26/2025 8:17 PM Normal [facility] HCG, Quanton 02-22-2025 HCG, Quant 5908.0 mIU/mL High <5 [facility] Comment on above: Result Comment: Non-preg premeno <=5 Postmeno <=8 Male <=3 If HCG results do not concur with clinical observations, additional testing to confirm results is recommended. Performed By: #### B HCG #### [facility] [address] [place] [address] Revit Drafter: Caden Brown MD HCG, Quantitative, on 02-22-2025 HCG.beta subunit Qn 5908 m[IU]/mL High NINF [facility] Comment on above: Non-preg premeno <=5 Postmeno <=8 Male <=3 If HCG results do not concur with clinical observations, additional testing to confirm results is recommended. Interpretation and review of laboratory results Abnormal [facility] ABO/RH Typeon 02-18-2025 ABO and Rh group Nom (Bld) Blood group A Rh(D) positive Normal [facility] Comment on above: Result Comment: PERF ORMED BY: [facility] [address] [facility] [place] [address] PATHOLOGIST IRRIGATING PUMP OPERATOR SHANITA MÁRQUEZ M.D. Alanine aminotransferase [En zymatic activity/volume] in Serum or PlasmaOrdered By: Yaritza Bauer on 02-18-2025 ALT [Catalytic activity/Vol] Alanine aminotransferase [Enzymatic activity/volume] in Serum or Plasma [facility] ALT [Catalytic activity/Vol] 21 U/L Normal [facility] Comment on above: Performed By: #### L IPASE, PT, CBC, HEPATIC, BMP, PTT #### [facility] [address] [id number] [facility] Albumin [Mass/volume] in Ser um or Plasma by Bromocresol green (BCG) dye binding methoOrdered By: Yaritza Bauer on 02-18-2025 Albumin BCG dye [Mass/Vol] Albumin [Mass/volume] in Serum or Plasma by Bromocresol green (BCG) dye binding metho 3.5-5.7 [facility] Albumin BCG dye [Mass/Vol] 4.3 g/dL 3.5-5.7 [facility] Alkaline phosphatase [Enzyma tic activity/volume] in Serum or PlasmaOrdered By: Yaritza Bourgeoisjean on 02-18-2025 ALP [Catalytic activity/Vol] Alkaline phosphatase [Enzymatic activity/volume] in Serum or Plasma 34-104 [facility] [facility] ALP [Catalytic activity/Vol] 58 U/L Normal 104 [facility] Comment on above: Performed By: #### L IPASE, PT, CBC, HEPATIC, BMP, PTT #### [address] Appearance of UrineOrdered B y: Yaritza Bourgeoisjean on 02-18-2025 Appearance (U) Urine appearance Clear [facility] Appearance (U) Clear Normal Clear [facility] Comment on above: Order Comment: Name Collection Type:: Clean-Voided Midstream Performed By: #### U HCG, UA #### [address] Aspartate aminotransferase [ Enzymatic activity/volume] in Serum or PlasmaOrdered By: Yaritza Christellejean on 02-18-2025 AST [Catalytic activity/Vol] Aspartate aminotransferase [Enzymatic activity/volume] in Serum or Plasma 1339 [facility] AST [Catalytic activity/Vol] 21 U/L Normal [facility] Comment on above: Performed By: #### L IPASE, PT, CBC, HEPATIC, BMP, PTT #### [address] Basic Metabolic Panelon 02-06 Creatinine Clr Calc Pharmacy 107.28 Normal [facility] Comment on above: Performed By: #### F S #### [place] [address] [place] #### GCCHLAMAMP #### [facility] , GFR/1.73 sq M.predicted MDRD (S/P/Bld) [Vol rate/Area] mL/min/{1.73_m2} Normal [facility] Comment on above: Performed By: #### F S #### [address] #### GCCHLAMAMP #### [facility] , Basophils Auto (Bld) [#/Vol] Ordered By: Yaritza Bauer on 02-18-2025 Basophils (Bld) [#/Vol] Automated basophil count 0.0-0.2 [facility] Basophils [#/volume] in Bloo d by Automated countOrdered By: Yaritza Bauer on 02-18-2025 Basophils (Bld) [#/Vol] 0.1 10*3/uL Normal 0.0-0.2 [facility] Comment on above: Result Comment: PERF ORMED BY: [place] [address] PATHOLOGIST IRRIGATING PUMP OPERATOR SHANITA MÁRQUEZ M.D. Performed By: #### L IPASE, PT, CBC, HEPATIC, BMP, PTT #### [address] Basophils/100 WBC Auto (Bld) Ordered By: Yaritza Bauer on 02-18-2025 Basophils/100 WBC (Bld) Automated basophil % . [facility] Basophils/100 leukocytes in Blood by Automated countOrdered By: Yaritza Bauer on 02-18-2025 Basophils/100 WBC (Bld) 1.9 % Normal . [facility] Comment on above: Performed By: #### L IPASE, PT, CBC, HEPATIC, BMP, PTT #### [address] Bilirubin Test strip Ql (U)O rdered By: Yaritza Bauer on 02-18-2025 Bilirubin Ql (U) Bilirubin.total [Presence] in Urine by Test strip Negative [facility] Bilirubin Ql (U) Negative Negative [facility] Bilirubin.direct [Mass/volum e] in Serum or PlasmaOrdered By: Yaritza Bauer on 02-18-2025 Bilirubin.direct [Mass/Vol] Bilirubin.direct [Mass/volume] in Serum or Plasma High 0.03-0.18 [facility] Bilirubin.direct [Mass/Vol] 0.30 mg/dL High 0.03-0.18 [facility] Bilirubin.total [Mass/volume ] in Serum or PlasmaOrdered By: Yaritza Bauer on 02-18-2025 Bilirubin [Mass/Vol] Bilirubin.total [Mass/volume] in Serum or Plasma High 0.3-1.0 [facility] Bilirubin [Mass/Vol] 1.1 mg/dL High 0.3-1.0 [facility] Comment on above: Performed By: #### L IPASE, PT, CBC, HEPATIC, BMP, PTT #### [facility] [address] [place] [address] Calcium [Mass/volume] in Ser um or PlasmaOrdered By: Yaritza Bauer on 02-18-2025 Calcium [Mass/Vol] Calcium [Mass/volume ] in Serum or Plasma 8.6-10.3 [facility] Calcium [Mass/Vol] 9.2 mg/dL Normal 8.6-10.3 [facility] Comment on above: Performed By: #### F S #### [facility] [address] [place] [address] [place] #### GCCHLAMAMP #### [facility] , Carbon dioxide, total [Moles /volume] in Serum or PlasmaOrdered By: Yaritza Bauer on 02-18-2025 CO2 [Moles/Vol] Carbon dioxide, tota l [Moles/volume] in Serum or Plasma 21.0-31.0 [facility] CO2 [Moles/Vol] 27.9 mmol/L Normal 21.0-31.0 [facility] Comment on above: Performed By: #### F S #### [facility] [address] [place] [address] [place] #### GCCHLAMAMP #### [facility] , Chlamydia/GC Amplificationon 02-18-2025 Chlamydia Trachomotis, JANET Negative Normal Negative [facility] Comment on above: Order Comment: SOURC E OF SPECIMEN: Genital Performed By: #### F S #### [facility] [address] [place] [address] [place] #### GCCHLAMAMP #### [facility] , Neisseria Gonorrhoeae, JANET Negative Normal Negative [facility] Comment on above: Order Comment: SOURC E OF SPECIMEN: Genital Result Comment: Perf ormed at: =G - [facility] [place] [address] W [id number] Revit Drafter: Barbie Mota MD, Phone: [phone] PERFORMED BY: [place] [address] PATHOLOGIST IRRIGATING PUMP OPERATOR SHANITA MÁRQUEZ M.D. Performed By: #### F S #### [facility] [address] [place] [address] #### GCCHLAMAMP #### [facility] , Chloride [Moles/volume] in S emiliana or PlasmaOrdered By: Yaritza Bauer on 02-18-2025 Chloride [Moles/Vol] Chloride [Moles/vol ume] in Serum or Plasma [address] [place] [address] Chloride [Moles/Vol] 104 mmol/L Normal 98-107 [facility] Comment on above: Performed By: #### F S #### [facility] [address] [place] [address] [place] #### GCCHLAMAMP #### [facility] , Choriogonadotropin.beta subu nit [Units/volume] in Serum or PlasmaOrdered By: Yaritza Bauer on 02-18-2025 HCG.beta subunit Qn Choriogonadotropin.b eta subunit [Units/volume] in Serum or Plasma [facility] Comment on above: Approximate Approxim ate hCG Gestational Age Range (mIU/ml) (weeks)0.2-1 5-50 1-2 50-500 2-3 100-5,000 3-4 500-10,000 4-5 1,000-50,000 5-6 10,000-100,000 6-8 15,000-200,000 8-12 10,000-100,000 HCG.beta subunit Qn 1673.00 m[IU]/mL [facility] Comment on above: Approximate Approxim ate hCG Gestational Age Range (mIU/ml) (weeks)0.2-1 5-50 1-2 50-500 2-3 100-5,000 3-4 500-10,000 4-5 1,000-50,000 5-6 10,000-100,000 6-8 15,000-200,000 8-12 10,000-100,000 Color Auto (U)Ordered By: Yury Bauer on 02-18-2025 Color (U) Color of Urine by Auto Yellow [facility] Color of Urine by AutoOrdere d By: Yaritza Bauer on 02-18-2025 Color (U) Yellow Normal Yellow [facility] Comment on above: Order Comment: Name Collection Type:: Clean-Voided Midstream Performed By: #### U HCG, UA #### [address] Complete Blood Count Auto Di ffon 02-18-2025 Mean Corpuscular HGB Conc 33.7 g/dL Normal 32.0-35.0 [facility] Comment on above: Performed By: #### L IPASE, PT, CBC, HEPATIC, BMP, PTT #### [place] [address] [place] Monocytes/100 WBC (Bld) 22.50 % High 0.00-20.00 [facility] Comment on above: Result Comment: For adults in ED, MDW > 20.0 may be associated with a higher risk of sepsis during the first 12 hrs of hospital admission Performed By: #### L IPASE, PT, CBC, HEPATIC, BMP, PTT #### [facility] [address] [place] [address] [place] NRBC% 0.1 /100{WBC} Normal 0-0.5 [facility] Comment on above: Performed By: #### L IPASE, PT, CBC, HEPATIC, BMP, PTT #### [facility] [address] [place] [id number] [place] Creatinine [Mass/volume] in Serum or PlasmaOrdered By: Yaritza Bauer on 02-18-2025 Creatinine [Mass/Vol] Creatinine [Mass/v olume] in Serum or Plasma 0.60-1.20 [facility] Creatinine [Mass/Vol] 0.77 mg/dL Normal 0.60-1.20 [facility] Comment on above: Performed By: #### F S #### [facility] [address] #### GCCHLAMAMP #### [facility] , Eosinophils Auto (Bld) [#/Vo l]Ordered By: Yaritza Bauer on 02-18-2025 Eosinophils (Bld) [#/Vol] Automated eosinophil count 0.0-0.45 [facility] Eosinophils [#/volume] in Bl ood by Automated countOrdered By: Yaritza Bauer on 02-18-2025 Eosinophils (Bld) [#/Vol] 0.0 10*3/uL Normal 0.0-0.45 [facility] Comment on above: Performed By: #### L IPASE, PT, CBC, HEPATIC, BMP, PTT #### [facility] [address] [place] [address] Eosinophils/100 WBC Auto (Bl d)Ordered By: Yaritza Bauer on 02-18-2025 Eosinophils/100 WBC (Bld) Automated eosinophil % . [facility] Eosinophils/100 leukocytes i n Blood by Automated countOrdered By: Yaritza Bauer on 02-18-2025 Eosinophils/100 WBC (Bld) 0.7 % Normal . [facility] Comment on above: Performed By: #### L IPASE, PT, CBC, HEPATIC, BMP, PTT #### [facility] [address] [place] [address] Erythrocyte distribution wid th Auto (RBC) [Ratio]Ordered By: Yaritza Bauer on 02-18-2025 Erythrocyte distribution width (RBC) [Ratio] Erythrocyte distribution width [Ratio] by Automated count 11.9-15.3 [facility] Erythrocyte distribution wid th [Ratio] by Automated countOrdered By: Yaritza Bauer on 02-18-2025 Erythrocyte distribution width (RBC) [Ratio] 13.5 % Normal 11.9-15.3 [facility] Comment on above: Performed By: #### L IPASE, PT, CBC, HEPATIC, BMP, PTT #### [facility] [address] [place] [address] Erythrocytes [#/volume] in B lood by Automated countOrdered By: Yaritza Bauer on 02-18-2025 RBC (Bld) [#/Vol] 4.56 10*6/uL Normal 3.60-5.00 [facility] Comment on above: Performed By: #### L IPASE, PT, CBC, HEPATIC, BMP, PTT #### [facility] [address] [place] [address] Fungal Smearon 02-18-2025 Fungal Smear Fungus Smear Results No Yeast Like Elements Seen ------ Trichomonas Screen No Trichomonas Seen Trich Reference Reference range = None Seen PERFORMED BY: [place] [address] PATHOLOGIST IRRIGATING PUMP OPERATOR SHANITA MÁRQUEZ M.D. Normal [facility] Comment on above: Performed By: #### F S #### [address] #### GCCHLAMAMP #### [facility] , Fungal smearOrdered By: Neha Bauer on 02-18-2025 Fungus identified Fungus stain Nom (Unsp spec) Fungal smear [facility] Fungus identified Fungus stain Nom (Unsp spec) [facility] Globulin Calc (S) [Mass/Vol] Ordered By: Yairtza Bauer on 02-18-2025 Globulin (S) [Mass/Vol] Serum globulin measurement by calculation (mass/volume) [facility] Glucose [Mass/volume] in Ser um or PlasmaOrdered By: Yaritza Bauer on 02-18-2025 Glucose [Mass/Vol] Glucose [Mass/volume ] in Serum or Plasma 70-100 [facility] Comment on above: ADA recommended refe rence rangeRandom Glucose Reference Range is dependent on time and content of last meal. Glucose of more than 200 mg/dL in a nonstressed, ambulatory subject supports the diagnosis of Diabetes Mellitus. Glucose [Mass/Vol] 87 mg/dL Normal 70-100 [facility] Comment on above: ADA recommended refe rence rangeRandom Glucose Reference Range is dependent on time and content of last meal. Glucose of more than 200 mg/dL in a nonstressed, ambulatory subject supports the diagnosis of Diabetes Mellitus. Result Comment: [place] Glucose Reference Range is dependent on time and content of last meal. Glucose of more than 200 mg/dL in a nonstressed, ambulatory subject supports the diagnosis of Diabetes Mellitus. ADA recommended reference range Performed By: #### F S #### [address] #### GCCHLAMAMP #### [facility] , Glucose [Mass/volume] in Uri ne by Test stripOrdered By: Yaritza Bauer on 02-18-2025 Glucose Test strip (U) [Mass/Vol] Glucose [Mass/volume] in Urine by Test strip [facility] Glucose Test strip (U) [Mass/Vol] Normal mg/dL Normal [facility] HCG ( test) IA.rapi d Ql (U)Ordered By: Yaritza Bauer on 02-18-2025 HCG ( test) Ql (U) Urine human chorionic gonadotropin (hCG) detection by immunoassay [facility] HCG ( test) Ql (U) Positive [facility] HCG,Quantitativeon HCG,Quantitative 1673.00 m[iU]/mL Normal [facility] Comment on above: Result Comment: Appr oximate Approximate hCG Gestational Age Range (mIU/ml) (weeks) 0.2-1 5-50 1-2 50-500 2-3 100-5,000 3-4 500-10,000 4-5 1,000-50,000 5-6 10,000-100,000 6-8 15,000-200,000 8-12 10,000-100,000 PERFORMED BY: [address] [place] [address] PATHOLOGIST IRRIGATING PUMP OPERATOR SHANITA MÁRQUEZ M.D. Performed By: #### F S #### [address] #### GCCHLAMAMP #### [facility] , HCG,Urineon 02-18-2025 Beta HCG ( test) Ql (U) Positive High [facility] Comment on above: Order Comment: Name Collection Type:: Clean-Voided Midstream Result Comment: PERF ORMED BY: [place] [address] PATHOLOGIST IRRIGATING PUMP OPERATOR SHANITA MÁRQUEZ M.D. Performed By: #### U HCG, UA #### [address] Hematocrit Auto (Bld) [Volum e fraction]Ordered By: Yaritza Bauer on 02-18-2025 Hematocrit (Bld) [Volume fraction] Hematocrit [Volume Fraction] of Blood by Automated count 34.0-46.4 [facility] Hematocrit [Volume Fraction] of Blood by Automated countOrdered By: Yaritza Bauer on 02-18-2025 Hematocrit (Bld) [Volume fraction] 41.8 % Normal 34.0-46.4 [facility] Comment on above: Performed By: #### L IPASE, PT, CBC, HEPATIC, BMP, PTT #### [facility] [address] [place] [address] Hemoglobin Test strip Ql (U) Ordered By: Yaritza Bauer on 02-18-2025 Hemoglobin Ql (U) Hemoglobin [Presence ] in Urine by Test strip Negative [facility] Hemoglobin Ql (U) Negative Negative [facility] Hemoglobin [Mass/volume] in BloodOrdered By: Yaritza Bauer on 02-18-2025 Hemoglobin (Bld) [Mass/Vol] Hemoglobin [Mass/volume] in Blood 11.8-15.4 [facility] Hemoglobin (Bld) [Mass/Vol] 14.1 g/dL Normal 11.8-15.4 [facility] Comment on above: Performed By: #### L IPASE, PT, CBC, HEPATIC, BMP, PTT #### [facility] [address] Hepatic Panelon 02-18-2025 Albumin [Mass/Vol] 4.3 g/dL Normal 3.5-5.7 [facility] Comment on above: Performed By: #### L IPASE, PT, CBC, HEPATIC, BMP, PTT #### [facility] [address] Bilirubin,Indirect 0.8 mg/dL Normal [facility] Comment on above: Performed By: #### L IPASE, PT, CBC, HEPATIC, BMP, PTT #### [facility] [address] Bilirubin.indirect [Mass/Vol] 0.30 mg/dL High 0.03-0.18 [facility] Comment on above: Performed By: #### L IPASE, PT, CBC, HEPATIC, BMP, PTT #### [facility] [address] INR in Platelet poor plasma by Coagulation assayOrdered By: Yaritza Bauer on 02-18-2025 INR Coag (PPP) [Relative time] INR in Platelet poor plasma by Coagulation assay [facility] Comment on above: INR Therapeutic [...] Coag (PPP) [Relative time] 1.1 {INR} Normal [facility] Comment on above: INR Therapeutic [...] 4.5 Performed By: #### F S #### [facility] [address] [place] [address] #### GCCHLAMAMP #### [facility] , Ketones Test strip Ql (U)Ord ered By: Yaritza Bauer on 02-18-2025 Ketones Ql (U) Ketones [Presence] i n Urine by Test strip Negative [facility] Ketones [Presence] in Urine by Test stripOrdered By: Yaritza Bauer on 02-18-2025 Ketones Ql (U) Negative Normal Negative [facility] Comment on above: Order Comment: Name Collection Type:: Clean-Voided Midstream Performed By: #### U HCG, UA #### [facility] [address] [place] [address] Laboratory - Microbiology an d Antimicrobial susceptibilityOrdered By: Yaritza Bauer on 02-18-2025 C. trachomatis DNA JANET+probe Ql (Unsp spec) Negative Negative [facility] N. gonorrhoeae DNA JANET+probe Ql (Unsp spec) Negative Negative [facility] Comment on above: Performed at: =[address] [id number] Director: Barbie Mota MD, Phone: [phone] Leukocyte esterase [Presence ] in Urine by Test stripOrdered By: Yaritza Bauer on 02-18-2025 Leukocyte esterase Test strip Ql (U) Leukocyte esterase [Presence] in Urine by Test strip Negative [facility] Leukocyte esterase Test strip Ql (U) Negative Normal Negative [facility] Comment on above: Order Comment: Name Collection Type:: Clean-Voided Midstream Performed By: #### U HCG, UA #### [address] Leukocytes [#/volume] correc roe for nucleated erythrocytes in Blood by Automated counOrdered By: Yaritza Bauer on 02-18-2025 WBC corrected for nucl RBC Auto (Bld) [#/Vol] Leukocytes [#/volume] corrected for nucleated erythrocytes in Blood by Automated coun 3.8-11.6 [facility] WBC corrected for nucl RBC Auto (Bld) [#/Vol] 5.2 10*3/uL 3.8-11.6 [facility] Leukocytes [#/volume] in Blo od by Automated countOrdered By: Yaritza Bauer on 02-18-2025 WBC (Bld) [#/Vol] 5.2 10*3/uL Normal 3.8-11.6 [facility] Comment on above: Performed By: #### L IPASE, PT, CBC, HEPATIC, BMP, PTT #### [facility] [address] [place] [address] Lipase [Enzymatic activity/v olume] in Serum or PlasmaOrdered By: Yaritza Bauer on 02-18-2025 Lipase [Catalytic activity/Vol] Lipase [Enzymatic activity/volume] in Serum or Plasma 11.0-82.0 [facility] Lipase [Catalytic activity/Vol] 22.0 U/L Normal 11.0-82.0 [facility] Comment on above: Result Comment: PERF ORMED BY: [place] [address] PATHOLOGIST IRRIGATING PUMP OPERATOR SHANITA MÁRQUEZ M.D. Performed By: #### F S #### [facility] [address] [place] [address] #### GCCHLAMAMP #### [facility] , Lymphocytes Auto (Bld) [#/Vo l]Ordered By: Yaritza Bauer on 02-18-2025 Lymphocytes (Bld) [#/Vol] Lymphocytes [#/volume] in Blood by Automated count 1.00-4.8 [facility] Lymphocytes [#/volume] in Bl ood by Automated countOrdered By: Yaritza Bauer on 02-18-2025 Lymphocytes (Bld) [#/Vol] 1.6 10*3/uL Normal 1.00-4.8 [facility] Comment on above: Performed By: #### L IPASE, PT, CBC, HEPATIC, BMP, PTT #### [address] Lymphocytes/100 WBC Auto (Bl d)Ordered By: Yaritza Bauer on 02-18-2025 Lymphocytes/100 WBC (Bld) Lymphocytes/100 leukocytes in Blood by Automated count . [facility] Lymphocytes/100 leukocytes i n Blood by Automated countOrdered By: Yaritza Bauer on 02-18-2025 Lymphocytes/100 WBC (Bld) 30.2 % Normal . [facility] Comment on above: Performed By: #### L IPASE, PT, CBC, HEPATIC, BMP, PTT #### [address] MCH Auto (RBC) [Entitic mass ]Ordered By: Yaritza Bauer on 02-18-2025 MCH (RBC) [Entitic mass] MCH [Entitic mass] by Automated count 24.7-34.3 [facility] MCH [Entitic mass] by Automa roe countOrdered By: Yaritza Bauer on 02-18-2025 MCH (RBC) [Entitic mass] 30.9 pg Normal 24.7-34.3 [facility] Comment on above: Performed By: #### L IPASE, PT, CBC, HEPATIC, BMP, PTT #### [facility] [address] [place] [address] MCHC Auto (RBC) [Mass/Vol]Or dered By: Yaritza Bauer on 02-18-2025 MCHC (RBC) [Mass/Vol] MCHC [Mass/volume] by Automated count 32.0-35.0 [facility] MCHC (RBC) [Mass/Vol] 33.7 g/dL 32.0-35.0 [facility] MCV Auto (RBC) [Entitic vol] Ordered By: Yaritza Bauer on 02-18-2025 MCV (RBC) [Entitic vol] MCV [Entitic vol ume] by Automated count 80-100 [facility] MCV [Entitic volume] by Auto mated countOrdered By: Yaritza Bauer on 02-18-2025 MCV (RBC) [Entitic vol] 91.6 fL Normal 80-100 [facility] Comment on above: Performed By: #### L IPASE, PT, CBC, HEPATIC, BMP, PTT #### [facility] [address] [place] [id number] [place] Monocyte distribution width [Entitic volume] in Blood by AutomatedOrdered By: Yaritza Bauer on 02-18-2025 Monocyte distribution width Auto (Bld) [Entitic vol] Monocyte distribution width [Entitic volume] in Blood by Automated High 0.00-20.00 [facility] Comment on above: For adults in ED, MD W > 20.0 may be associated with a higher risk of sepsis during the first 12 hrs of hospital admission Monocyte distribution width Auto (Bld) [Entitic vol] 22.50 % High 0.00-20.00 [facility] Comment on above: For adults in ED, MD W > 20.0 may be associated with a higher risk of sepsis during the first 12 hrs of hospital admission Monocytes Auto (Bld) [#/Vol] Ordered By: Yaritza Bauer on 02-18-2025 Monocytes (Bld) [#/Vol] Automated blood monocyte count 0.0-0.8 [facility] Monocytes [#/volume] in Bloo d by Automated countOrdered By: Yaritza Bauer on 02-18-2025 Monocytes (Bld) [#/Vol] 0.3 10*3/uL Normal 0.0-0.8 [facility] Comment on above: Performed By: #### L IPASE, PT, CBC, HEPATIC, BMP, PTT #### [facility] [address] [place] [id number] [place] Monocytes/100 WBC Auto (Bld) Ordered By: Yaritza Bauer on 02-18-2025 Monocytes/100 WBC (Bld) Automated monocyte % . [facility] Monocytes/100 leukocytes in Blood by Automated countOrdered By: Yaritza Bauer on 02-18-2025 Monocytes/100 WBC (Bld) 6.6 % Normal . [facility] Comment on above: Performed By: #### L IPASE, PT, CBC, HEPATIC, BMP, PTT #### [facility] [address] [place] [address] [place] Neutrophils Auto (Bld) [#/Vo l]Ordered By: Yaritza Bauer on 02-18-2025 Neutrophils (Bld) [#/Vol] Neutrophils [#/volume] in Blood by Automated count 1.8-7.7 [facility] Neutrophils [#/volume] in Bl ood by Automated countOrdered By: Yaritza Bauer on 02-18-2025 Neutrophils (Bld) [#/Vol] 3.2 10*3/uL Normal 1.8-7.7 [facility] Comment on above: Performed By: #### L IPASE, PT, CBC, HEPATIC, BMP, PTT #### [facility] [address] [place] [address] [place] Neutrophils/100 WBC Auto (Bl d)Ordered By: Yaritza Bauer on 02-18-2025 Neutrophils/100 WBC (Bld) Automated neutrophil % . [facility] Neutrophils/100 leukocytes i n Blood by Automated countOrdered By: Yaritza Bauer on 02-18-2025 Neutrophils/100 WBC (Bld) 60.6 % Normal . [facility] Comment on above: Performed By: #### L IPASE, PT, CBC, HEPATIC, BMP, PTT #### [facility] [address] [place] [address] Nitrite Test strip Ql (U)Ord ered By: Yaritza Bauer on 02-18-2025 Nitrite Ql (U) Nitrite [Presence] i n Urine by Test strip Negative [facility] Nitrite Ql (U) Negative Negative [facility] No Panel InformationOrdered By: Yaritza Bauer on 02-18-2025 Estimated GFR (CKD-EPI) > 60.0 mL/Min [facility] Creatinine Clearance (Chem 107.28 [facility] Nucleated erythrocytes [Pres ence] in Blood by Automated countOrdered By: Yaritza Bauer on 02-18-2025 Nucleated RBC Auto Ql (Bld) Nucleated erythrocytes [Presence] in Blood by Automated count 0-0.5 [facility] Nucleated RBC Auto Ql (Bld) 0.1 /100{WBC} 0-0.5 [facility] Partial Thromboplastin Timeo n 02-18-2025 aPTT Coag (Bld) [Time] 29.3 s Normal 25.1-36.5 [facility] Comment on above: Result Comment: A he matocrit value greater than 55% may lead to inaccurate results in coagulation testing. Patients having hematocrit values >55% require a special collection tube for coagulation studies. Please contact the laboratory at [phone] for redraw instructions. PERFORMED BY: [place] [address] PATHOLOGIST IRRIGATING PUMP OPERATOR SHANITA MÁRQUEZ M.D. Performed By: #### F S #### [facility] [address] [place] [address] #### GCCHLAMAMP #### [facility] , Platelet mean volume Auto (B ld) [Entitic vol]Ordered By: Yaritza Bauer on 02-18-2025 Platelet mean volume (Bld) [Entitic vol] Platelet mean volume [Entitic volume] in Blood by Automated count 6.3-10.7 [facility] Platelet mean volume [Entiti c volume] in Blood by Automated countOrdered By: Yaritza Bauer on 02-18-2025 Platelet mean volume (Bld) [Entitic vol] 8.0 fL Normal 6.3-10.7 [facility] Comment on above: Performed By: #### L IPASE, PT, CBC, HEPATIC, BMP, PTT #### [facility] [facility] [address] [place] [address] Platelets Auto (Bld) [#/Vol] Ordered By: Yaritza Bauer on 02-18-2025 Platelets (Bld) [#/Vol] Platelets [#/vol ume] in Blood by Automated count 150-450 [facility] Platelets [#/volume] in Bloo d by Automated countOrdered By: Yaritza Bauer on 02-18-2025 Platelets (Bld) [#/Vol] 181 10*3/uL Normal 150-450 [facility] Comment on above: Performed By: #### L IPASE, PT, CBC, HEPATIC, BMP, PTT #### [address] Potassium [Moles/volume] in Serum or PlasmaOrdered By: Yaritza Bauer on 02-18-2025 Potassium [Moles/Vol] Potassium [Moles/v olume] in Serum or Plasma 3.5-5.1 [facility] Potassium [Moles/Vol] 3.6 mmol/L Normal 3.5-5.1 [facility] Comment on above: Performed By: #### F S #### [facility] [address] [place] [address] #### GCCHLAMAMP #### [facility] , Protein Test strip (U) [Mass /Vol]Ordered By: Yaritza Bauer on 02-18-2025 Protein (U) [Mass/Vol] Protein [Mass/vol ume] in Urine by Test strip Negative [facility] Protein (U) [Mass/Vol] Negative Negative [facility] Protein [Mass/volume] in Ser um or PlasmaOrdered By: Yaritza Bauer on 02-18-2025 Protein [Mass/Vol] Protein [Mass/volume ] in Serum or Plasma 6.4-8.9 [facility] Protein [Mass/Vol] 6.7 g/dL Normal 6.4-8.9 [facility] Comment on above: Performed By: #### L IPASE, PT, CBC, HEPATIC, BMP, PTT #### [facility] [address] [place] [address] Prothrombin time (PT)Ordered By: Yaritza Bauer on 02-18-2025 PT Coag (PPP) [Time] Prothrombin time (PT) 9.0- 12.9 [facility] Comment on above: A hematocrit value g reater than 55% may lead to inaccurate results in coagulation testing. Patients having hematocrit values >55% require a special collection tube for coagulation studies. Please contact the laboratory at [phone] for redraw instructions. PT Coag (PPP) [Time] 12.3 s Normal 9.0-12.9 [facility] Comment on above: A hematocrit value g reater than 55% may lead to inaccurate results in coagulation testing. Patients having hematocrit values >55% require a special collection tube for coagulation studies. Please contact the laboratory at [phone] for redraw instructions. Result Comment: A he matocrit value greater than 55% may lead to inaccurate results in coagulation testing. Patients having hematocrit values >55% require a special collection tube for coagulation studies. Please contact the laboratory at [phone] for redraw instructions. Performed By: #### F S #### [facility] [address] [place] [address] #### GCCHLAMAMP #### [facility] , RBC Auto (Bld) [#/Vol]Ordere d By: Yaritza Bauer on 02-18-2025 RBC (Bld) [#/Vol] Erythrocytes [#/volu me] in Blood by Automated count 3.60-5.00 [facility] Serum globulin measurement b y calculation (mass/volume)Ordered By: Yaritza Bauer on 02-18-2025 Globulin (S) [Mass/Vol] 2.4 g/dL Normal F [facility] Comment on above: Performed By: #### L IPASE, PT, CBC, HEPATIC, BMP, PTT #### [facility] [address] [place] [address] Serum or plasma albumin/glob ulin mass ratioOrdered By: Yaritza Bauer on 02-18-2025 Albumin/Globulin [Mass ratio] Serum or plasma albumin/globulin mass ratio [facility] Albumin/Globulin [Mass ratio] 1.8 {ratio} Normal [facility] Comment on above: Performed By: #### L IPASE, PT, CBC, HEPATIC, BMP, PTT #### [facility] [address] [place] [address] Serum or plasma anion gap de terminationOrdered By: Yaritza Bauer on 02-18-2025 Anion gap [Moles/Vol] Serum or plasma an ion gap determination 6.0-15.0 [facility] Anion gap [Moles/Vol] 8.7 mmol/L Normal 6.0-15.0 [facility] Comment on above: Performed By: #### F S #### [facility] [address] [place] [address] [place] #### GCCHLAMAMP #### [facility] , Serum or plasma non-glucuron idated bilirubin measurement (mass/volume)Ordered By: Yaritza Bauer on 02-18-2025 Bilirubin.indirect [Mass/Vol] Serum or plasma non-glucuronidated bilirubin measurement (mass/volume) [facility] Bilirubin.indirect [Mass/Vol] 0.8 mg/dL [facility] Sodium [Moles/volume] in Ser um or PlasmaOrdered By: Yaritza Bauer on 02-18-2025 Sodium [Moles/Vol] Sodium [Moles/volume ] in Serum or Plasma 136-145 [facility] Sodium [Moles/Vol] 137 mmol/L Normal 136-145 [facility] Comment on above: Performed By: #### F S #### [facility] [address] [place] [address] [place] #### GCCHLAMAMP #### [facility] , Specific gravity Test strip (U) [Rel density]Ordered By: Yaritza Bauer on 02-18-2025 Specific gravity (U) [Rel density] Specific gravity of Urine by Test strip 1.001-1.03 0 [facility] Specific gravity (U) [Rel density] 1.021 1.001-1.03 0 [facility] Trichomonas vaginalis detect ion by wet preparationOrdered By: Yaritza Bauer on 02-18-2025 T. vaginalis Wet prep Ql (Unsp spec) Trichomonas vaginalis detection by wet preparation [facility] T. vaginalis Wet prep Ql (Unsp spec) [facility] US OB transvaginalon 025 US OB transvaginal [facility] [place] [address] [place] [address] Ultrasound Report Signed Patient: Charis Allen MR#: [id number] : 2000 Acct:[id number] Age/Sex: 24 / F ADM Date: 02/18/25 Loc: ER Room: Type: [facility] ER Attending Dr: Ordering Provider: Yaritza Bauer APRN Date of Service: 02/18/25 US/US OB <= 14 weeks fetus: Abdominal Pain ([id number]) US/US OB transvaginal: R/O ECTOPIC Copies to: [...] Camacho M.D. 02/18/2025 8:45 PM Dictation Location: [place] [address] Tech: Roselia Cueva Transcribed By: REMINGTON 02/18/252044 Dictated By: Michael Camacho DO 02/18/252034 Signed By: 02/18/252044 Normal [facility] Urea nitrogen [Mass/volume] in Serum or PlasmaOrdered By: Yaritza Bauer on 02-18-2025 Urea nitrogen [Mass/Vol] Urea nitrogen [Mass/volume] in Serum or Plasma 05-02 [facility] Urea nitrogen [Mass/Vol] 13 mg/dL Normal 05-02 [facility] Comment on above: Performed By: #### F S #### [address] #### GCCHLAMAMP #### [facility] , Urinalysison 02-18-2025 Bilirubin,Urine Negative Normal Negative [facility] Comment on above: Order Comment: Name Collection Type:: Clean-Voided Midstream Performed By: #### U HCG, UA #### [facility] [address] [id number] [facility] Glucose Ql (U) Normal Normal Normal [facility] Comment on above: Order Comment: Name Collection Type:: Clean-Voided Midstream Performed By: #### U HCG, UA #### [place] [address] [place] Nitrite,Urine Negative Normal Negative [facility] Comment on above: Order Comment: Name Collection Type:: Clean-Voided Midstream Performed By: #### U HCG, UA #### [place] [address] [place] Occult Blood,Urine Negative Normal Negative [facility] Comment on above: Order Comment: Name Collection Type:: Clean-Voided Midstream Performed By: #### U HCG, UA #### [place] [address] [place] Protein,Urine Negative Normal Negative [facility] Comment on above: Order Comment: Name Collection Type:: Clean-Voided Midstream Performed By: #### U HCG, UA #### [place] [id number] [place] Specificy Delta,Urine 1.021 Normal 1.00 1-1.03 0 [facility] Comment on above: Order Comment: Name Collection Type:: Clean-Voided Midstream Performed By: #### U HCG, UA #### [place] [id number] [place] Urobilinogen,Urine Normal Normal Normal [facility] Comment on above: Order Comment: Name Collection Type:: Clean-Voided Midstream Performed By: #### U HCG, UA #### [place] [id number] [place] Urobilinogen Test strip (U) [Mass/Vol]Ordered By: Yaritza Bauer on 02-18-2025 Urobilinogen (U) [Mass/Vol] Urobilinogen [Mass/volume] in Urine by Test strip Normal [facility] Urobilinogen (U) [Mass/Vol] Normal mg/dL Normal [facility] WBC Auto (Bld) [#/Vol]Ordere d By: Yaritza Bauer on 02-18-2025 WBC (Bld) [#/Vol] Leukocytes [#/volume ] in Blood by Automated count 3.8-11.6 [facility] aPTT in Platelet poor plasma by Coagulation assayOrdered By: Yaritza Bauer on 02-18-2025 aPTT Coag (PPP) [Time] Activated partial thromboplastin time (aPTT) in platelet poor plasma by coagulation a 25.1-36.5 [facility] Comment on above: A hematocrit value g reater than 55% may lead to inaccurate results in coagulation testing. Patients having hematocrit values >55% require a special collection tube for coagulation studies. Please contact the laboratory at [phone] for redraw instructions. aPTT Coag (PPP) [Time] 29.3 s 25.1-36.5 [facility] Comment on above: A hematocrit value g reater than 55% may lead to inaccurate results in coagulation testing. Patients having hematocrit values >55% require a special collection tube for coagulation studies. Please contact the laboratory at [phone] for redraw instructions. pH Test strip (U)Ordered By: Yaritza Bauer on 02-18-2025 pH (U) pH of Urine by Test strip 5.0-9.0 [facility] pH of Urine by Test stripOrd ered By: Yaritza Bauer on 02-18-2025 pH (U) 6.5 [pH] Normal 5.0-9.0 [facility] Comment on above: Order Comment: Name Collection Type:: Clean-Voided Midstream Performed By: #### U HCG, UA #### [address] CBC with Auto Differentialon 01-11-2025 Basophils (Bld) [#/Vol] 0.03 10*3/uL [facility] Basophils/100 WBC (Bld) 1 % 0 - 2 % [facility] Eosinophils (Bld) [#/Vol] 0.03 10*3/uL [facility] Eosinophils/100 WBC (Bld) 1 % 0 - 5 % [facility] Erythrocyte distribution width (RBC) [Ratio] 12.1 % 12.1 - 15.2 % [facility] Hematocrit (Bld) [Volume fraction] 40.6 % 36.0 - 46.0 % [facility] Hemoglobin (Bld) [Mass/Vol] 13.9 g/dL 12.0 - 16.0 g/dL [facility] Immature granulocytes (Bld) [#/Vol] 0 10*3/uL [facility] Immature granulocytes/100 WBC (Bld) 0 % 0 - 5 % [facility] Interpretation and review of laboratory results Abnormal [facility] Lymphocytes/100 WBC (Bld) 30 % 15 - 40 % [facility] Lymphocytes/100 WBC (Bld) 1.94 % [facility] MCH (RBC) [Entitic mass] 31.3 pg 26.0 - 34.0 pg [facility] MCHC (RBC) [Mass/Vol] 34.2 g/dL 31.0 - 37.0 g/dL [facility] MCV (RBC) [Entitic vol] 91.4 fL 80.0 - 100.0 fL [facility] Monocytes/100 WBC (Bld) 9 % High 4 - 8 % [facility] Monocytes/100 WBC (Bld) 0.59 % [facility] Neutrophils/100 WBC (Bld) 59 % 47 - 75 % [facility] Platelet mean volume (Bld) [Entitic vol] 9.8 fL 6.0 - 12.0 fL [facility] Platelets (Bld) [#/Vol] 202 10*3/uL [facility] RBC (Bld) [#/Vol] 4.44 10*6/uL 4.00 - 5.20 m/uL [facility] Segmented neutrophils/100 WBC (Bld) 3.92 % [facility] WBC other (Bld) [#/Vol] 6.5 [facility] CBC with Diffon 01-11-2025 Abs. Basophil 0.03 k/uL Normal 0.00-0.20 [facility] Comment on above: Performed By: #### C DP, HCG, CP #### [facility] [address] [id number] Revit Drafter: Caden Brown MD Abs.Imm.Granulocyte 0.00 k/uL Normal 0.00-0.30 [facility] Comment on above: Performed By: #### C DP, HCG, CP #### [facility] [address] [place] [address] Revit Drafter: Caden Brwon MD Abs.Neutrophil (Seg) 3.92 k/uL Normal 2.5-7.0 [facility] Comment on above: Performed By: #### C DP, HCG, CP #### [facility] [address] [place] [address] Revit Drafter: Caden Brown MD Basophils/100 WBC (Bld) 1 % Normal 0-2 [facility] Comment on above: Performed By: #### C DP, HCG, CP #### [facility] [address] [place] [address] Revit Drafter: Caden Brown MD Eosinophils (Bld) [#/Vol] 0.03 10*3/uL Normal 0.00-0.40 [facility] Comment on above: Performed By: #### C DP, HCG, CP #### [facility] [address] [place] [id number] Revit Drafter: Caden Brown MD Eosinophils/100 WBC (Bld) 1 % Normal 0-5 [facility] Comment on above: Performed By: #### C DP, HCG, CP #### [facility] [address] [id number] Revit Drafter: Caden Brown MD Erythrocyte distribution width (RBC) [Ratio] 12.1 % Normal 12.1-15.2 [facility] Comment on above: Performed By: #### C DP, HCG, CP #### [facility] [address] [place], [place] [id number] Rev[employer] Drafter: Caden Brown MD Hematocrit (Bld) [Volume fraction] 40.6 % Normal 36.0-46.0 [facility] Comment on above: Performed By: #### C DP, HCG, CP #### [facility] [address] [place] [address] Revit Drafter: Caden Brown MD Hemoglobin (Bld) [Mass/Vol] 13.9 g/dL Normal 12.0-16.0 [facility] Comment on above: Performed By: #### C DP, HCG, CP #### [facility] [address] [place] [id number] Rev[employer] Drafter: Caden Brown MD Immature granulocytes/100 WBC (Bld) 0 % Normal 0-5 [facility] Comment on above: Performed By: #### C DP, HCG, CP #### [facility] [address] [place] [address] Revit Drafter: Caden Brown MD Lymphocytes (Bld) [#/Vol] 1.94 10*3/uL Normal 1.00-4.80 [facility] Comment on above: Performed By: #### C DP, HCG, CP #### [facility] [address] [place] [address] Revit Drafter: Caden Brown MD Lymphocytes/100 WBC (Bld) 30 % Normal 15-40 [facility] Comment on above: Performed By: #### C DP, HCG, CP #### [facility] [address] [place] [address] Revit Drafter: Caden Brown MD MCH (RBC) [Entitic mass] 31.3 pg Normal 26.0-34.0 [facility] Comment on above: Performed By: #### C DP, HCG, CP #### [facility] [address] [place], [place] [id number] Revit Drafter: Caden Brown MD MCHC (RBC) [Mass/Vol] 34.2 g/dL Normal 31.0-37.0 [facility] Comment on above: Performed By: #### C DP, HCG, CP #### [facility] [address] [place], [place] [phone] Revit Drafter: Caden Brown MD MCV (RBC) [Entitic vol] 91.4 fL Normal 80.0-100.0 [facility] Comment on above: Performed By: #### C DP, HCG, CP #### [facility] [address] [place] [address] Revit Drafter: Caden Brown MD Monocytes (Bld) [#/Vol] 0.59 10*3/uL Normal 0.00-1.00 [facility] Comment on above: Performed By: #### C DP, HCG, CP #### [facility] [address] [place], [place] [id number] Revit Drafter: Caden Brown MD Monocytes/100 WBC (Bld) 9 % High 4-8 [facility] Comment on above: Performed By: #### C DP, HCG, CP #### [facility] [address] [place], [place] [id number] Revit Drafter: Caden Brown MD Neutrophil (Seg) 59 % Normal 47-75 [facility] Comment on above: Performed By: #### C DP, HCG, CP #### [facility] [address] [place], [place] [phone] Revit Drafter: Caden Brown MD Platelet mean volume (Bld) [Entitic vol] 9.8 fL Normal 6.0-12.0 [facility] Comment on above: Performed By: #### C DP, HCG, CP #### [facility] [address] [place] [address] Revit Drafter: Caden Brown MD Platelets (Bld) [#/Vol] 202 10*3/uL Normal 140-450 [facility] Comment on above: Performed By: #### C DP, HCG, CP #### [facility] [address] [place] [address] Revit Drafter: Caden Brown MD RBC (Bld) [#/Vol] 4.44 10*6/uL Normal 4.00-5.20 [facility] Comment on above: Performed By: #### C DP HCG, CP #### [facility] [address] [place] [address] Revit Drafter: Caden Brown MD WBC (Bld) [#/Vol] 6.5 10*3/uL Normal 3.5-11.0 [facility] Comment on above: Performed By: #### C DP, HCG, CP #### [facility] [address] [place] [address] Revit Drafter: Caden Brown MD [facility] 01-11-2025 Albumin [Mass/Vol] 4.5 g/dL 3.5 - 5.2 g/dL [facility] Albumin/Globulin [Mass ratio] 1.9 {ratio} 1.0 - 2.5 [facility] ALP [Catalytic activity/Vol] 78 U/L 35 - 104 U/L [facility] ALT [Catalytic activity/Vol] 22 U/L 5 - 33 U/L [facility] Anion gap [Moles/Vol] 10 mmol/L 9 - 17 mmol/L [facility] AST [Catalytic activity/Vol] 26 U/L NINF - 32 U/L [facility] Bilirubin [Mass/Vol] 1 mg/dL 0.3 - 1 .2 mg/dL [facility] Calcium [Mass/Vol] 9.2 mg/dL 8.6 - 10. 4 mg/dL [facility] Chloride [Moles/Vol] 102 mmol/L 98 - 10 7 mmol/L [facility] CO2 [Moles/Vol] 26 mmol/L 20 - 31 mmol/L [facility] Creatinine [Mass/Vol] 0.8 mg/dL 0.5 - 0.9 mg/dL [facility] Est, Radhames Salast Rate - PINF [facility] Comment on above: These results are [...] [Mass/Vol] 90 mg/dL 70 - 99 mg/dL [facility] Interpretation and review of laboratory results Abnormal [facility] Potassium [Moles/Vol] 3.5 mmol/L Low 3.7 - 5.3 mmol/L [facility] Protein [Mass/Vol] 6.9 g/dL 6.4 - 8.3 g/dL [facility] Sodium [Moles/Vol] 138 mmol/L 135 - 144 mmol/L [facility] Urea nitrogen [Mass/Vol] 9 mg/dL 6 - 20 mg/dL [facility] Comp Metabolic Profon 2024 Albumin [Mass/Vol] 4.5 g/dL Normal 3.5-5.2 [facility] Comment on above: Performed By: #### C DP HCG, CP #### [facility] [address] [place] [address] Revit Drafter: Caden Brown MD Albumin/Glob Ratio 1.9 Normal 1.0-2.5 [facility] Comment on above: Performed By: #### C DP, HCG, CP #### [facility] [address] [place] [address] Revit Drafter: Caden rBown MD Alkaline Phos 78 U/L Normal 35-104 [facility] Comment on above: Performed By: #### C DP, HCG, CP #### [facility] [address] [place] [address] Revit Drafter: Caden Brown MD ALT [Catalytic activity/Vol] 22 U/L Normal 5-33 [facility] Comment on above: Performed By: #### C DP, HCG, CP #### [facility] [address] [place] [address] Revit Drafter: Caden Brown MD Anion gap [Moles/Vol] 10 mmol/L Normal 9-17 [facility] Comment on above: Performed By: #### C DP, HCG, CP #### [facility] [address] [place] [address] Revit Drafter: Caden Brown MD AST [Catalytic activity/Vol] 26 U/L Normal <32 [facility] Comment on above: Performed By: #### C DP, HCG, CP #### [facility] [address] [place] [address] Revit Drafter: Caden Brown MD Bilirubin [Mass/Vol] 1.0 mg/dL Normal 0.3-1.2 [facility] Comment on above: Performed By: #### C DP, HCG, CP #### [facility] [address] [place] [address] Revit Drafter: Caden Brown MD Calcium [Mass/Vol] 9.2 mg/dL Normal 8.6-10.4 [facility] Comment on above: Performed By: #### C DP, HCG, CP #### [facility] [address] [place], [place] [id number] Revit Drafter: Caden Brown MD Chloride [Moles/Vol] 102 mmol/L Normal 98-107 [facility] Comment on above: Performed By: #### C DP, HCG, CP #### [facility] [address] [place], [place] [phone] Revit Drafter: Caden Brown MD CO2 [Moles/Vol] 26 mmol/L Normal 20-31 [facility] Comment on above: Performed By: #### C DP, HCG, CP #### [facility] [address] [place] [address] Revit Drafter: Caden Brown MD Creatinine [Mass/Vol] 0.8 mg/dL Normal 0.5-0.9 [facility] Comment on above: Performed By: #### C DP, HCG, CP #### [facility] [address] [place] [address] Revit Drafter: Caden Brown MD GFR/1.73 sq M.predicted among non-blacks MDRD (S/P/Bld) [Vol rate/Area] mL/min/{1.73_m2} Normal >60 [facility] Comment on above: Result Comment: These results [...] By: #### C DP, HCG, CP #### [facility] [address] [place] [address] Revit Drafter: Caden Brown MD Glucose [Mass/Vol] 90 mg/dL Normal 70-99 [facility] Comment on above: Performed By: #### C DP, HCG, CP #### [facility] [address] [place], [place] [id number] Revit Drafter: Caden Brown MD Potassium [Moles/Vol] 3.5 mmol/L Low 3.7-5.3 [facility] Comment on above: Performed By: #### C DP, HCG, CP #### [facility] [address] [place], [place] [phone] Revit Drafter: Caden Brown MD Protein [Mass/Vol] 6.9 g/dL Normal 6.4-8.3 [facility] Comment on above: Performed By: #### C DP, HCG, CP #### [facility] [address] [place], [place] [id number] Revit Drafter: Caden Brown MD Sodium [Moles/Vol] 138 mmol/L Normal 135-144 [facility] Comment on above: Performed By: #### C DP, HCG, CP #### [facility] [address] [place] [address] Revit Drafter: Caden Brown MD Urea nitrogen [Mass/Vol] 9 mg/dL Normal 6-20 [facility] Comment on above: Performed By: #### C DP, HCG, CP #### [facility] [address] [place] [address] Revit Drafter: Caden Brown MD Glucose, Whole Bloodon 01-11 Glucose [Mass/Vol] 108 mg/dL High 65 - 99 mg/dL [facility] Interpretation and review of laboratory results Abnormal [facility] Glucose,Whole Bloodon 2024 Glucose [Mass/Vol] 108 mg/dL High 65-99 [facility] HCG Qualitative, Serumon HCG ( test) Ql Negative NEGATIVE B [facility] Comment on above: Specimens with hCG l evels near the threshold of the test (25 mIU/mL) may give a negative or indeterminate result. In such cases, another test should be performed with a new specimen in 48-72 hours. If early is suspected clinically in this setting, correlation with quantitative serum b-hCG level is suggested. [employer] has confirmed the use of plasma for this test. This has not been cleared or approved by the U.S. Food and Drug Administration. The FDA has determined that such clearance is not necessary. [facility] HCG Screen, Bloodon 01-12-20 25 HCG Screen, Blood Negative Normal NEG [facility] Comment on above: Result Comment: Spec imens with hCG levels near the threshold of the test (25 mIU/mL) may give a negative or indeterminate result. In such cases, another test should be performed with a new specimen in 48-72 hours. If early is suspected clinically in this setting, correlation with quantitative serum b-hCG level is suggested. [facility] has confirmed the use of plasma for this test. This has not been cleared or approved by the U.S. Food and Drug Administration. The FDA has determined that such clearance is not necessary. Performed By: #### C DP, HCG, CP #### [facility] [address] [place] [address] Revit Drafter: Caden Brown MD HCG.beta subunit IA 3rd IS Q non 12-13-2024 HCG.beta subunit Qn 384 m[IU]/mL Normal Pro [facility] Comment on above: Result Comment: NEW REFERENCE [...] neoplasms. Performed By: #### 2 0415-6 #### [facility] ([id number]) [address] [place] [address], [place] [address] URINALYSISon 12-13-2024 Bilirubin Ql (U) Negative Normal NEG [facility] [facility] Comment on above: Performed By: #### U A #### [facility] ([id number]) [address] [place] [address] [place] [address] BLOOD/HGB Large Abnormal NEG [facility] Comment on above: Performed By: #### U A #### [facility] ([id number]) [address] [place] [address] [place] [address] Color (U) YELLOW Normal YELLOW [facility] Comment on above: Performed By: #### U A #### [facility] ([id number]) [address] [place] [address] [place] [address] Glucose Ql (U) Negative Normal NEG [facility] Comment on above: Performed By: #### U A #### [facility] ([id number]) [address] [place] [address] [place] [address] Ketones Ql (U) Negative Normal NEG [facility] Comment on above: Performed By: #### U A #### [facility] ([id number]) [address] [place] [address] [place] [address] Leukocyte esterase Test strip Ql (U) Negative Normal NEG [facility] Comment on above: Performed By: #### U A #### [facility] ([id number]) [address] [place] [address] [place] [address] Nitrite Ql (U) Negative Normal NEG [facility] Comment on above: Performed By: #### U A #### [facility] ([id number]) [address] [place] [address] [place] [address] pH (U) 7.0 [pH] Normal 5.0-8.5 [facility] Comment on above: Performed By: #### U A #### [facility] ([id number]) [address] [place] [address] [place] [address] Protein Ql (U) Negative Normal NEG [facility] Comment on above: Performed By: #### U A #### [facility] ([id number]) [address] [place] [address] R.B.CELLS 5 /hpf Normal 0-5 [facility] Comment on above: Performed By: #### U A #### [facility] ([id number]) [address] [place] [address] [place] [address] Specific gravity (U) [Rel density] 1.020 Normal 1.003-1.03 5 [facility] Comment on above: Performed By: #### U A #### [facility] ([id number]) [address] [place] [address] SQUAMOUS EPITHELIUM 8 /hpf High 0-5 [facility] Comment on above: Performed By: #### U A #### [facility] ([id number]) [address] [place] [address] [place] [address] TRANSITIONAL EPITH 1 /hpf High 0 [facility] Comment on above: Performed By: #### U A #### [facility] ([id number]) [address] [place] [address] TURBIDITY CLEAR Normal CLEAR [facility] Comment on above: Performed By: #### U A #### [facility] ([id number]) [address] [place] [address] [place] [address] Urobilinogen Qn (U) 0.2 {Ludwig'U}/dL Normal <1.1 [facility] Comment on above: Performed By: #### U A #### [facility] ([id number]) [address] [place] [address] W.B.CELLS 0 /hpf Normal 0-5 [facility] Comment on above: Performed By: #### U A #### [facility] ([id number]) [address] [facility], [place] [address] CBC with Auto Differentialon 12-01-2024 Basophils (Bld) [#/Vol] 0.03 10*3/uL [facility] Basophils/100 WBC (Bld) 0 % 0 - 2 % [facility] Eosinophils (Bld) [#/Vol] 0.04 10*3/uL [facility] Eosinophils/100 WBC (Bld) 1 % 0 - 5 % [facility] Erythrocyte distribution width (RBC) [Ratio] 11.8 % Low 12.1 - 15.2 % [facility] Hematocrit (Bld) [Volume fraction] 38.2 % 36.0 - 46.0 % [facility] Hemoglobin (Bld) [Mass/Vol] 13.0 g/dL 12.0 - 16.0 g/dL [facility] Immature granulocytes (Bld) [#/Vol] 0.01 10*3/uL [facility] Immature granulocytes/100 WBC (Bld) 0 % 0 - 5 % [facility] Interpretation and review of laboratory results Abnormal [facility] Lymphocytes/100 WBC (Bld) 24 % 15 - 40 % [facility] Lymphocytes/100 WBC (Bld) 1.98 % [facility] MCH (RBC) [Entitic mass] 30.9 pg 26.0 - 34.0 pg [facility] MCHC (RBC) [Mass/Vol] 34.0 g/dL 31.0 - 37.0 g/dL [facility] MCV (RBC) [Entitic vol] 90.7 fL 80.0 - 100.0 fL [facility] Monocytes/100 WBC (Bld) 10 % High 4 - 8 % [facility] Monocytes/100 WBC (Bld) 0.80 % [facility] Neutrophils/100 WBC (Bld) 65 % 47 - 75 % [facility] Platelet mean volume (Bld) [Entitic vol] 9.3 fL 6.0 - 12.0 fL [facility] Platelets (Bld) [#/Vol] 238 10*3/uL [facility] RBC (Bld) [#/Vol] 4.21 10*6/uL 4.00 - 5.20 m/uL [facility] Segmented neutrophils/100 WBC (Bld) 5.44 % [facility] WBC other (Bld) [#/Vol] 8.3 B on [facility] CBC with Diffon 12-01-2024 Abs. Basophil 0.03 k/uL Normal 0.00-0.20 [facility] Comment on above: Performed By: #### C DP, CP #### [facility] [address] [place] [address] Revit Drafter: Caden Brown MD Abs.Imm.Granulocyte 0.01 k/uL Normal 0.00-0.30 [facility] Comment on above: Performed By: #### C DP, CP #### [facility] [address] [place] [address] Revit Drafter: Caden Brown MD Abs.Neutrophil (Seg) 5.44 k/uL Normal 2.5-7.0 [facility] Comment on above: Performed By: #### C DP, CP #### [facility] [address] [place] [address] Revit Drafter: Caden Brown MD Basophils/100 WBC (Bld) 0 % Normal 0-2 [facility] Comment on above: Performed By: #### C DP, CP #### [facility] [address] [place] [address] Revit Drafter: Caden Brown MD Eosinophils (Bld) [#/Vol] 0.04 10*3/uL Normal 0.00-0.40 [facility] Comment on above: Performed By: #### C DP, CP #### [facility] [address] [place] [id number] Revit Drafter: Caden Brown MD Eosinophils/100 WBC (Bld) 1 % Normal 0-5 [facility] Comment on above: Performed By: #### C DP, CP #### [facility] [address] [place] [phone] Revit Drafter: Caden Brown MD Erythrocyte distribution width (RBC) [Ratio] 11.8 % Low 12.1-15.2 [facility] Comment on above: Performed By: #### C DP, CP #### [facility] [address] [place] [phone] Revit Drafter: Caden Brown MD Hematocrit (Bld) [Volume fraction] 38.2 % Normal 36.0-46.0 [facility] Comment on above: Performed By: #### C DP, CP #### [facility] [address] [place] [address] Revit Drafter: Caden Brown MD Hemoglobin (Bld) [Mass/Vol] 13.0 g/dL Normal 12.0-16.0 [facility] Comment on above: Performed By: #### C DP, CP #### [facility] [address] [place] [phone] Revit Drafter: Caden Brown MD Immature granulocytes/100 WBC (Bld) 0 % Normal 0-5 [facility] Comment on above: Performed By: #### C DP, CP #### [facility] [address] [place] [phone] Revit Drafter: Caden Brown MD Lymphocytes (Bld) [#/Vol] 1.98 10*3/uL Normal 1.00-4.80 [facility] Comment on above: Performed By: #### C DP, CP #### [facility] [address] [place] [phone] Revit Drafter: Caden Brown MD Lymphocytes/100 WBC (Bld) 24 % Normal 15-40 [facility] Comment on above: Performed By: #### C DP, CP #### [facility] [address] [place], [place] [phone] Revit Drafter: Caden Brown MD MCH (RBC) [Entitic mass] 30.9 pg Normal 26.0-34.0 [facility] Comment on above: Performed By: #### C DP, CP #### [facility] [address] [place], [place] [phone] Revit Drafter: Caden Brown MD MCHC (RBC) [Mass/Vol] 34.0 g/dL Normal 31.0-37.0 [facility] Comment on above: Performed By: #### C DP, CP #### [facility] [address] [place] [address] Revit Drafter: Caden Brown MD MCV (RBC) [Entitic vol] 90.7 fL Normal 80.0-100.0 [facility] Comment on above: Performed By: #### C DP, CP #### [facility] [address] [place] [address] Revit Drafter: Caden Brown MD Monocytes (Bld) [#/Vol] 0.80 10*3/uL Normal 0.00-1.00 [facility] Comment on above: Performed By: #### C DP, CP #### [facility] [address] [place], [place] [phone] Revit Drafter: Caden Brown MD Monocytes/100 WBC (Bld) 10 % High 4-8 [facility] Comment on above: Performed By: #### C DP, CP #### [facility] [address] [place] [address] Revit Drafter: Caden Brown MD Neutrophil (Seg) 65 % Normal 47-75 [facility] Comment on above: Performed By: #### C DP, CP #### [facility] [address] [place] [phone] Revit Drafter: Caden Brown MD Platelet mean volume (Bld) [Entitic vol] 9.3 fL Normal 6.0-12.0 [facility] Comment on above: Performed By: #### C DP, CP #### [facility] [address] [place], [place] [phone] Revit Drafter: Caden Brown MD Platelets (Bld) [#/Vol] 238 10*3/uL Normal 140-450 [facility] Comment on above: Performed By: #### C DP, CP #### [facility] [address] [place] [address] [phone] Revit Drafter: Caden Brown MD RBC (Bld) [#/Vol] 4.21 10*6/uL Normal 4.00-5.20 [facility] Comment on above: Performed By: #### C DP, CP #### [facility] [address] [place], [place] [phone] Revit Drafter: Caden Brown MD WBC (Bld) [#/Vol] 8.3 10*3/uL Normal 3.5-11.0 [facility] Comment on above: Performed By: #### C DP, CP #### [facility] [address] [place] [address] Revit Drafter: Caden Brown MD Comp Metabolic Profon 2024 Albumin [Mass/Vol] 4.2 g/dL Normal 3.5-5.2 [facility] Comment on above: Performed By: #### C DP, CP #### [facility] [address] [place] [address] Revit Drafter: Caden Brown MD Albumin/Glob Ratio 1.8 Normal 1.0-2.5 [facility] Comment on above: Performed By: #### C DP, CP #### [facility] [address] [place], [place] [phone] Revit Drafter: Caden Brown MD Alkaline Phos 61 U/L Normal 35-104 [facility] Comment on above: Performed By: #### C DP, CP #### [facility] [address] [place], [place] [phone] Revit Drafter: Caden Brown MD ALT [Catalytic activity/Vol] 27 U/L Normal 5-33 [facility] Comment on above: Performed By: #### C DP, CP #### [facility] [address] [place] [address] Revit Drafter: Caden Brown MD Anion gap [Moles/Vol] 10 mmol/L Normal 9-17 [facility] Comment on above: Performed By: #### C DP, CP #### [facility] [address] [place], [place] [phone] Revit Drafter: Caden Brown MD AST [Catalytic activity/Vol] 24 U/L Normal <32 [facility] Comment on above: Performed By: #### C DP, CP #### [facility] [address] [place], [place] [phone] Revit Drafter: Caden Brown MD Bilirubin [Mass/Vol] 1.2 mg/dL Normal 0.3-1.2 [facility] Comment on above: Performed By: #### C DP, CP #### [facility] [address] [place], [place] [phone] Revit Drafter: Caden Brown MD Calcium [Mass/Vol] 9.1 mg/dL Normal 8.6-10.4 [facility] Comment on above: Performed By: #### C DP, CP #### [facility] [address] [place], [place] [phone] Revit Drafter: Caden Brown MD Chloride [Moles/Vol] 105 mmol/L Normal 98-107 [facility] Comment on above: Performed By: #### C DP, CP #### [facility] [address] [place], [place] [phone] Revit Drafter: Caden Brown MD CO2 [Moles/Vol] 24 mmol/L Normal 20-31 [facility] Comment on above: Performed By: #### C DP, CP #### [facility] [address] [place], [place] [phone] Revit Drafter: Caden Brown MD Creatinine [Mass/Vol] 0.7 mg/dL Normal 0.5-0.9 [facility] Comment on above: Performed By: #### C DP, CP #### [facility] [address] [place] [address] Revit Drafter: Caden Brown MD GFR/1.73 sq M.predicted among non-blacks MDRD (S/P/Bld) [Vol rate/Area] mL/min/{1.73_m2} Normal >60 [facility] Comment on above: Result Comment: These results [...] Performed By: #### C DP, CP #### [facility] [address] [place] [address] Revit Drafter: Caden Brown MD Glucose [Mass/Vol] 64 mg/dL Low 70-99 [facility] Comment on above: Performed By: #### C DP, CP #### [facility] [address] [place] [address] Revit Drafter: Caden Brown MD Potassium [Moles/Vol] 3.6 mmol/L Low 3.7-5.3 [facility] Comment on above: Performed By: #### C DP, CP #### [facility] [address] [place] [address] Revit Drafter: Caden Brown MD Protein [Mass/Vol] 6.5 g/dL Normal 6.4-8.3 [facility] Comment on above: Performed By: #### C DP, CP #### [facility] [address] [place] [address] Revit Drafter: Caden Brown MD Sodium [Moles/Vol] 139 mmol/L Normal 135-144 [facility] Comment on above: Performed By: #### C DP, CP #### [facility] [address] [place] [address] Revit Drafter: Caden Brown MD Urea nitrogen [Mass/Vol] 15 mg/dL Normal 6-20 [facility] Comment on above: Performed By: #### C DP, CP #### [facility] [address] [place] [address] Revit Drafter: Caden Brown MD Comprehensive Metabolic Pane [facility] 12-01-2024 Albumin [Mass/Vol] 4.2 g/dL 3.5 - 5.2 g/dL [facility] Albumin/Globulin [Mass ratio] 1.8 {ratio} 1.0 - 2.5 [facility] ALP [Catalytic activity/Vol] 61 U/L 35 - 104 U/L [facility] ALT [Catalytic activity/Vol] 27 U/L 5 - 33 U/L [facility] Anion gap [Moles/Vol] 10 mmol/L 9 - 17 mmol/L [facility] AST [Catalytic activity/Vol] 24 U/L NINF - 32 U/L [facility] Bilirubin [Mass/Vol] 1.2 mg/dL 0.3 - 1 .2 mg/dL [facility] Calcium [Mass/Vol] 9.1 mg/dL 8.6 - 10. 4 mg/dL [facility] Chloride [Moles/Vol] 105 mmol/L 98 - 10 7 mmol/L [facility] CO2 [Moles/Vol] 24 mmol/L 20 - 31 mmol/L [facility] Creatinine [Mass/Vol] 0.7 mg/dL 0.5 - 0.9 mg/dL [facility] Est, Radhames Campos Rate - PINF [facility] Comment on above: These results are [...] 64 mg/dL Low 70 - 99 mg/dL [facility] Interpretation and review of laboratory results Abnormal [facility] Potassium [Moles/Vol] 3.6 mmol/L Low 3.7 - 5.3 mmol/L [facility] Protein [Mass/Vol] 6.5 g/dL 6.4 - 8.3 g/dL [facility] Sodium [Moles/Vol] 139 mmol/L 135 - 144 mmol/L [facility] Urea nitrogen [Mass/Vol] 15 mg/dL 6 - 20 mg/dL [facility] HCG, Quanton 12-01-2024 HCG, Quant 1440.0 mIU/mL High <5 [facility] Comment on above: Result Comment: Non-preg premeno <=5 Postmeno <=8 Male <=3 If HCG results do not concur with clinical observations, additional testing to confirm results is recommended. Performed By: #### B HCG ####[facility] [id number] [place] [id number] Lab Director: Caden Brown MD HCG, Quantitative, on 12-01-2024 HCG.beta subunit Qn 1440.0 m[IU]/mL High NINF [facility] Comment on above: Non-preg premeno <=5 Postmeno <=8 Male <=3 If HCG results do not concur with clinical observations, additional testing to confirm results is recommended. Interpretation and review of laboratory results Abnormal [facility] Urinalysison 12-01-2024 Bilirubin Ql (U) Negative NEGATIVE [facility] Clarity (U) Clear Clear [facility] Color (U) Yellow Yellow [facility] Comment [facility] Glucose Test strip (U) [Mass/Vol] Negative NEGATIVE mg/dL [facility] Hemoglobin Auto test strip Ql (U) Negative NEGATIVE [facility] Ketones (U) [Mass/Vol] Negative NEGAT WOODY mg/dL [facility] Leukocyte esterase Test strip Ql (U) Negative NEGATIVE [facility] Nitrite Ql (U) Negative NEGATIVE [facility] pH (U) 8.0 [pH] 5.0 - 8.0 [facility] Protein (U) [Mass/Vol] Negative NEGAT WOODY mg/dL [facility] Specific gravity (U) [Rel density] 1.015 1.005 - 1.030 [facility] Urobilinogen Qn (U) Normal 0.0 - 1. 0 EU/dL [facility] Urinalysis, Routineon 2024 Bilirubin, SemiQt,Ur Negative Normal NEG [facility] Comment on above: Performed By: #### U A ####[facility] [id number] [place], [place] [id number] lab Director: Caden Brown MD Blood, Urine Negative Normal NEG [facility] Comment on above: Performed By: #### U A ####[facility] [address] [facility] [place] [address] lab Director: Caden Brown MD Clarity (U) Clear Normal CLEAR [facility] Comment on above: Performed By: #### U A ####[facility] [id number] [place] [address] lab Director: Caden Brown MD Color (U) Yellow Normal YEL [facility] Comment on above: Performed By: #### U A ####[facility] [address] [place] [address] lab Director: Caden Brown MD Comment Normal [facility] Comment on above: Performed By: #### U A ####[facility] [address] [place] [address] lab Director: Caden Brown MD Glucose Ql (U) Negative Normal NEG [facility] Comment on above: Performed By: #### U A ####[facility] [address] [place] [address] lab Director: Caden Brown MD Ketones Ql (U) Negative Normal NEG [facility] Comment on above: Performed By: #### U A ####[facility] [address] [place] [address] lab Director: Caden Brown MD Leukocyte esterase Test strip Ql (U) Negative Normal NEG [facility] Comment on above: Performed By: #### U A ####[facility] [address] [place] [address] lab Director: Caden Brown MD Nitrite,Ur Negative Normal NEG [facility] Comment on above: Performed By: #### U A ####[facility] [address] [place] [address] lab Director: Caden Brown MD PH,Ur 8.0 Normal 5.0-8.0 [facility] Comment on above: Performed By: #### U A ####[facility] [address] [place] [address] lab Director: Caden Brown MD Protein Ql (U) Negative Normal NEG [facility] Comment on above: Performed By: #### U A ####[facility] [id number] [place] [address] lab Director: Caden Brown MD Spec. Delta,Ur 1.015 Normal 1.005-1.03 0 [facility] Comment on above: Performed By: #### U A ####[facility] [address] [facility] [place] [address] lab Director: Caden Brown MD Urobilinogen,Ur Normal Normal 0.0-1.0 [facility] Comment on above: Performed By: #### U A ####[facility] [address] [place] [address] lab Director: Caden Brown MD TBH PREG QUANT HCGon 025 HCG QUANTITATIVE 759 mIU/mL [facility] Comment on above: 5-50 0.2-1 WEEK 50-500 1-2 WEEKS 100-5,000 2-3 WEEKS 500-10,000 3-4 WEEKS 1,000-50,000 4-5 WEEKS 10,000-100,000 5-6 WEEKS 15,000-200,000 6-8 WEEKS 10,000-100,000 2-3 [facility] CBC with Auto Differentialon 11-16-2024 Basophils (Bld) [#/Vol] 0.01 10*3/uL [facility] Basophils/100 WBC (Bld) 0 % 0 - 2 % B [facility] Eosinophils (Bld) [#/Vol] 0.01 10*3/uL [facility] Eosinophils/100 WBC (Bld) 0 % 0 - 5 % [facility] Erythrocyte distribution width (RBC) [Ratio] 12.2 % 12.1 - 15.2 % [facility] Hematocrit (Bld) [Volume fraction] 43.3 % 36.0 - 46.0 % [facility] Hemoglobin (Bld) [Mass/Vol] 14.9 g/dL 12.0 - 16.0 g/dL [facility] Immature granulocytes (Bld) [#/Vol] 0.01 10*3/uL [facility] Immature granulocytes/100 WBC (Bld) 0 % 0 - 5 % [facility] Interpretation and review of laboratory results Abnormal [facility] Lymphocytes/100 WBC (Bld) 15 % 15 - 40 % [facility] Lymphocytes/100 WBC (Bld) 1.82 % [facility] MCH (RBC) [Entitic mass] 31.1 pg 26.0 - 34.0 pg [facility] MCHC (RBC) [Mass/Vol] 34.4 g/dL 31.0 - 37.0 g/dL [facility] MCV (RBC) [Entitic vol] 90.4 fL 80.0 - 100.0 fL [facility] Monocytes/100 WBC (Bld) 4 % 4 - 8 % B on [facility] Monocytes/100 WBC (Bld) 0.43 % B on [facility] Neutrophils/100 WBC (Bld) 81 % High 47 - 75 % [facility] Platelet mean volume (Bld) [Entitic vol] 9.6 fL 6.0 - 12.0 fL [facility] Platelets (Bld) [#/Vol] 243 10*3/uL [facility] RBC (Bld) [#/Vol] 4.79 10*6/uL 4.00 - 5.20 m/uL [facility] Segmented neutrophils/100 WBC (Bld) 9.54 % High [facility] WBC other (Bld) [#/Vol] 11.8 High B on [facility] CBC with Diffon 11-16-2024 Abs. Basophil 0.01 k/uL Normal 0.00-0.20 [facility] Comment on above: Performed By: #### L IP, CP, HCG, CDP, TROPI #### [facility] [address] [place] [address] Revit Drafter: Caden Brown MD Abs.Imm.Granulocyte 0.01 k/uL Normal 0.00-0.30 [facility] Comment on above: Performed By: #### L IP, CP, HCG, CDP, TROPI #### [facility] [address] [place] [id number] Revit Drafter: Caden Brown MD Abs.Neutrophil (Seg) 9.54 k/uL High 2.5-7.0 [facility] Comment on above: Performed By: #### L IP, CP, HCG, CDP, TROPI #### [facility] [address] [place] [id number] Revit Drafter: Caden Brown MD Basophils/100 WBC (Bld) 0 % Normal 0-2 [facility] Comment on above: Performed By: #### L IP, CP, HCG, CDP, TROPI #### [facility] [address] [place] [phone] Revit Drafter: Caden Brown MD Eosinophils (Bld) [#/Vol] 0.01 10*3/uL Normal 0.00-0.40 [facility] Comment on above: Performed By: #### L IP, CP, HCG, CDP, TROPI #### [facility] [address] [place] [phone] Revit Drafter: Caden Brown MD Eosinophils/100 WBC (Bld) 0 % Normal 0-5 [facility] Comment on above: Performed By: #### L IP, CP, HCG, CDP, TROPI #### [facility] [address] [place] [address] Revit Drafter: Caden Brown MD Erythrocyte distribution width (RBC) [Ratio] 12.2 % Normal 12.1-15.2 [facility] Comment on above: Performed By: #### L IP, CP, HCG, CDP, TROPI #### [facility] [address] [place] [phone] Revit Drafter: Caden Brown MD Hematocrit (Bld) [Volume fraction] 43.3 % Normal 36.0-46.0 [facility] Comment on above: Performed By: #### L IP, CP, HCG, CDP, TROPI #### [facility] [address] [place] [address] Revit Drafter: Caden Brown MD Hemoglobin (Bld) [Mass/Vol] 14.9 g/dL Normal 12.0-16.0 [facility] Comment on above: Performed By: #### L IP, CP, HCG, CDP, TROPI #### [facility] [address] [place] [phone] Revit Drafter: Caden Brown MD Immature granulocytes/100 WBC (Bld) 0 % Normal 0-5 [facility] Comment on above: Performed By: #### L IP, CP, HCG, CDP, TROPI #### [facility] [address] [place] [address] Revit Drafter: Caden Brown MD Lymphocytes (Bld) [#/Vol] 1.82 10*3/uL Normal 1.00-4.80 [facility] Comment on above: Performed By: #### L IP, CP, HCG, CDP, TROPI #### [facility] [address] [id number] Revit Drafter: Caden Brown MD Lymphocytes/100 WBC (Bld) 15 % Normal 15-40 [facility] Comment on above: Performed By: #### L IP, CP, HCG, CDP, TROPI #### [facility] [address] [place] [address] Revit Drafter: Caden Brown MD MCH (RBC) [Entitic mass] 31.1 pg Normal 26.0-34.0 [facility] Comment on above: Performed By: #### L IP, CP, HCG, CDP, TROPI #### [facility] [address] [id number] Revit Drafter: Caden Brown MD MCHC (RBC) [Mass/Vol] 34.4 g/dL Normal 31.0-37.0 [facility] Comment on above: Performed By: #### L IP, CP, HCG, CDP, TROPI #### [facility] [address] [place] [address] Revit Drafter: Caden Brown MD MCV (RBC) [Entitic vol] 90.4 fL Normal 80.0-100.0 [facility] Comment on above: Performed By: #### L IP, CP, HCG, CDP, TROPI #### [facility] [address] [place] [address] Revit Drafter: Caden Brown MD Monocytes (Bld) [#/Vol] 0.43 10*3/uL Normal 0.00-1.00 [facility] Comment on above: Performed By: #### L IP, CP, HCG, CDP, TROPI #### [facility] [address] [place] [address] Revit Drafter: Caden Brown MD Monocytes/100 WBC (Bld) 4 % Normal 4-8 [facility] Comment on above: Performed By: #### L IP, CP, HCG, CDP, TROPI #### [facility] [address] [place] [address] Revit Drafter: Caden Brown MD Neutrophil (Seg) 81 % High 47-75 [facility] Comment on above: Performed By: #### L IP, CP, HCG, CDP, TROPI #### [facility] [address] [place] [address] Revit Drafter: Caden Brown MD Platelet mean volume (Bld) [Entitic vol] 9.6 fL Normal 6.0-12.0 [facility] Comment on above: Performed By: #### L IP, CP, HCG, CDP, TROPI #### [facility] [address] [place] [address] Revit Drafter: Caden Brown MD Platelets (Bld) [#/Vol] 243 10*3/uL Normal 140-450 [facility] Comment on above: Performed By: #### L IP, CP, HCG, CDP, TROPI #### [facility] [address] [place] [address] Revit Drafter: Caden Brown MD RBC (Bld) [#/Vol] 4.79 10*6/uL Normal 4.00-5.20 [facility] Comment on above: Performed By: #### L IP, CP, HCG, CDP, TROPI #### [facility] [address] [place] [address] Revit Drafter: Caden Brown MD WBC (Bld) [#/Vol] 11.8 10*3/uL High 3.5-11.0 [facility] Comment on above: Performed By: #### L IP, CP, HCG, CDP, TROPI #### [facility] [address] [place] [address] Revit Drafter: Caden Brown [facility] Albumin [Mass/Vol] 4.5 g/dL 3.5 - 5.2 g/dL [facility] ALP [Catalytic activity/Vol] 80 U/L 35 - 104 U/L [facility] ALT [Catalytic activity/Vol] 17 U/L 5 - 33 U/L [facility] Anion gap [Moles/Vol] 16 mmol/L 9 - 17 mmol/L [facility] AST [Catalytic activity/Vol] 19 U/L NINF - 32 U/L [facility] Bilirubin [Mass/Vol] 1.3 mg/dL High 0.3 - 1 .2 mg/dL [facility] Calcium [Mass/Vol] 9.7 mg/dL 8.6 - 10. 4 mg/dL [facility] Chloride [Moles/Vol] 101 mmol/L 98 - 10 7 mmol/L [facility] CO2 [Moles/Vol] 21 mmol/L 20 - 31 mmol/L [facility] Creatinine [Mass/Vol] 0.7 mg/dL 0.5 - 0.9 mg/dL [facility] Est, Radhames Salast Rate - PINF [facility] Comment on above: These results are [...] [Mass/Vol] 94 mg/dL 70 - 99 mg/dL [facility] Interpretation and review of laboratory results Abnormal [facility] Potassium [Moles/Vol] 3.2 mmol/L Low 3.7 - 5.3 mmol/L [facility] Protein [Mass/Vol] 7.4 g/dL 6.4 - 8.3 g/dL [facility] Sodium [Moles/Vol] 138 mmol/L 135 - 144 mmol/L [facility] Urea nitrogen [Mass/Vol] 15 mg/dL 6 - 20 mg/dL [facility] Urea nitrogen/Creatinine [Mass ratio] 21 mg/mg High 9 - 20 [facility] COVID-19, Rapidon 11-16-2024 SARS-CoV-2 (COVID-19) RdRp gene JANET+probe Ql (Resp) Not detected Not Detected [facility] Comment on above: Rapid NAAT: The [...] Acid Amplification Specimen Description .NASOPHARYNGEAL SWAB [facility] CT ABDOMEN PELVIS W IV CONTR [...] Сергей Cobian MD 11/16/24 Final result Normal [facility] CT Abdomen and Pelvis W cont rast [...] lymph nodes. No aortic aneurysm or dissection. [facility] Сергей Cobian MD - 11/16/2024 [...] or other acute inflammatory process. IMPRESSION: [facility] Radiology Study observation (narrative) [facility] Comp Metabolic Profon 2024 Albumin [Mass/Vol] 4.5 g/dL Normal 3.5-5.2 [facility] Comment on above: Performed By: #### L IP, CP, HCG, CDP, TROPI ####[facility] [address] [place] [address] Lab Director: Caden Brown MD Alkaline Phos 80 U/L Normal 35-104 [facility] Comment on above: Performed By: #### L IP, CP, HCG, CDP, TROPI ####[facility] [address] [place] [address] Lab Director: Caden Brown MD ALT [Catalytic activity/Vol] 17 U/L Normal 5-33 [facility] Comment on above: Performed By: #### L IP, CP, HCG, CDP, TROPI ####[facility] [address] [place] [address] Lab Director: Caden Brown MD Anion gap [Moles/Vol] 16 mmol/L Normal 9-17 [facility] Comment on above: Performed By: #### L IP, CP, HCG, CDP, TROPI ####[facility] [address] [place] [address] Lab Director: Caden Brown MD AST [Catalytic activity/Vol] 19 U/L Normal <32 [facility] Comment on above: Performed By: #### L IP, CP, HCG, CDP, TROPI ####[facility] [address] [place] [address] Lab Director: Caden Brown MD Bilirubin [Mass/Vol] 1.3 mg/dL High 0.3-1.2 [facility] Comment on above: Performed By: #### L IP, CP, HCG, CDP, TROPI ####[facility] [address] [place] [address] Lab Director: Caden Brown MD BUN/CRE Ratio 21 High 9-20 [facility] Comment on above: Performed By: #### L IP, CP, HCG, CDP, TROPI ####[facility] [address] [place] [address] lab Director: Caden Brown MD Calcium [Mass/Vol] 9.7 mg/dL Normal 8.6-10.4 [facility] Comment on above: Performed By: #### L IP, CP, HCG, CDP, TROPI ####[facility] [address] [place] [address] lab Director: Caden Brown MD Chloride [Moles/Vol] 101 mmol/L Normal 98-107 [facility] Comment on above: Performed By: #### L IP, CP, HCG, CDP, TROPI ####[facility] [id number] [place] [address] lab Director: Caden Brown MD CO2 [Moles/Vol] 21 mmol/L Normal 20-31 [facility] Comment on above: Performed By: #### L IP, CP, HCG, CDP, TROPI ####[facility] [address] [place] [address] lab Director: Caden Brown MD Creatinine [Mass/Vol] 0.7 mg/dL Normal 0.5-0.9 [facility] Comment on above: Performed By: #### L IP, CP, HCG, CDP, TROPI ####[facility] [address] [place] [address] lab Director: Caden Brown MD GFR/1.73 sq M.predicted among non-blacks MDRD (S/P/Bld) [Vol rate/Area] mL/min/{1.73_m2} Normal >60 [facility] Comment on above: Result Comment: These results [...] #### L IP, CP, HCG, CDP, TROPI ####[facility] [address] [place] [address] Lab Director: Caden Brown MD Glucose [Mass/Vol] 94 mg/dL Normal 70-99 [facility] Comment on above: Performed By: #### L IP, CP, HCG, CDP, TROPI ####[facility] [address] [place], [place] [phone] Director: Caden Brown MD Potassium [Moles/Vol] 3.2 mmol/L Low 3.7-5.3 [facility] Comment on above: Performed By: #### L IP, CP, HCG, CDP, TROPI ####[facility] [address] [place], [place] [phone] Director: Caden Brown MD Protein [Mass/Vol] 7.4 g/dL Normal 6.4-8.3 [facility] Comment on above: Performed By: #### L IP, CP, HCG, CDP, TROPI ####[facility] [id number] [place] [address] Lab Director: Caden Brown MD Sodium [Moles/Vol] 138 mmol/L Normal 135-144 [facility] Comment on above: Performed By: #### L IP, CP, HCG, CDP, TROPI ####[facility] [address] [place], [place] [phone] Director: Caden Brown MD Urea nitrogen [Mass/Vol] 15 mg/dL Normal 6-20 [facility] Comment on above: Performed By: #### L IP, CP, HCG, CDP, TROPI ####[facility] [address] [place] [address] lab Director: Caden Brown MD Flu A/B Ag Detectionon 11-16 Flu A Ag Detection Negative Normal NEG [facility] Comment on above: Result Comment: for Influenza A Antigen Performed By: #### F LUABA ####[facility] [address] [place] [address] lab Director: Caden Brown MD Flu B Ag Detection Negative Normal NEG [facility] Comment on above: Result Comment: for Influenza B Antigen. Performed By: #### F LUABA ####[facility] [address] [place] [address] lab Director: Caden Brown MD HCG Qualitative, Serumon HCG ( test) Ql Negative NEGATIVE B on [facility] Comment on above: Specimens with hCG l evels near the threshold of the test (25 mIU/mL) may give a negative or indeterminate result. In such cases, another test should be performed with a new specimen in 48-72 hours. If early is suspected clinically in this setting, correlation with quantitative serum b-hCG level is suggested. [facility] has confirmed the use of plasma for this test. This has not been cleared or approved by the U.S. Food and Drug Administration. The FDA has determined that such clearance is not necessary. [facility] HCG Screen, Bloodon 11-16-19 25 HCG Screen, Blood Negative Normal NEG [facility] Comment on above: Result Comment: Spec imens with hCG levels near the threshold of the test (25 mIU/mL) may give a negative or indeterminate result. In such cases, another test should be performed with a new specimen in 48-72 hours. If early is suspected clinically in this setting, correlation with quantitative serum b-hCG level is suggested. [facility] has confirmed the use of plasma for this test. This has not been cleared or approved by the U.S. Food and Drug Administration. The FDA has determined that such clearance is not necessary. Performed By: #### L IP, CP, HCG, CDP, TROPI ####[facility] [id number] [place] [address] lab Director: Caden Brown MD Lipaseon 11-16-2024 Lipase [Catalytic activity/Vol] 47 U/L 13 - 60 U/L [facility] Lipase [Catalytic activity/Vol] 47 U/L Normal 13-60 [facility] Comment on above: Performed By: #### L IP, CP, HCG, CDP, TROPI ####[facility] [address] [facility] [place] [address] lab Director: Caden Brown MD No Panel Informationon 11-16 [facility] Portable XR Chest AP single viewon 11-16-2024 Normal chest. [facility] CLINICAL HISTORY: Shortness of breath. Chest pain. CHEST PORTABLE AP VIEW: The lungs are clear. No pneumothorax. The pulmonary vascularity and cardiomediastinal silhouette are normal. No acute fracture is seen. [facility] CONSOLIDATED Сергей Cobian MD - 11/16/2024 CLINICAL HISTORY: Shortness of breath. Chest pain. CHEST PORTABLE AP VIEW: The lungs are clear. No pneumothorax. The pulmonary vascularity and cardiomediastinal silhouette are normal. No acute fracture is seen. IMPRESSION: Normal chest. [facility] Radiology Study observation (narrative) [facility] Portable XR Chest AP single viewOrdered By: Сергей Cobian on 11-16-2024 [facility] Work Phone: Rapid influenza A/B antigens on 11-16-2024 FLUAV Ag Ql (Unsp spec) Negative NEGATIVE B on [facility] Comment on above: for Influenza A Anti gen FLUBV Ag Ql (Unsp spec) Negative NEGATIVE B on [facility] Comment on above: for Influenza B Anti gen. [facility] [id number] 11-16-2024 SARS-CoV-2 (COVID-19) RNA JANET+probe Ql (Unsp spec) Not detected Normal [facility] Comment on above: Result Comment: Rapid NAAT: [...] Acid Amplification Performed By: #### C OVRB ####[facility] [address] [place] [address] lab Director: Caden Brown MD Troponinon 11-16-2024 Troponin I.cardiac High sensitivity method [Mass/Vol] ng/L 0 - 14 ng/L [facility] Comment on above: High Sensitivity Tro ponin values cannot be compared with other Troponin methodologies. [facility] Troponin, High Sens <6 Normal 0-14 [facility] Comment on above: Result Comment: High Sensitivity Troponin values cannot be compared with other Troponin methodologies. Performed By: #### L IP, CP, HCG, CDP, TROPI ####[facility] [address] [place], [place] [id number] lab Director: Caden Brown MD Urinalysison 11-16-2024 Bilirubin Ql (U) Negative NEGATIVE [facility] Clarity (U) Clear Clear [facility] Color (U) Yellow Yellow [facility] Comment [facility] Glucose Test strip (U) [Mass/Vol] Negative NEGATIVE mg/dL [facility] Hemoglobin Auto test strip Ql (U) Negative NEGATIVE [facility] Ketones (U) [Mass/Vol] Negative NEGAT WOODY mg/dL [facility] Leukocyte esterase Test strip Ql (U) Negative NEGATIVE [facility] Nitrite Ql (U) Negative NEGATIVE [facility] pH (U) 7.0 [pH] 5.0 - 8.0 [facility] Protein (U) [Mass/Vol] Negative NEGAT WOODY mg/dL [facility] Specific gravity (U) [Rel density] 1.010 1.005 - 1.030 [facility] Urobilinogen Qn (U) Normal 0.0 - 1. 0 EU/dL [facility] Urinalysis, Routineon 2024 Bilirubin, SemiQt,Ur Negative Normal NEG [facility] Comment on above: Performed By: #### U A #### [facility] [address] [place] [address] Revit Drafter: Caden Brown MD Blood, Urine Negative Normal NEG [facility] Comment on above: Performed By: #### U A #### [facility] [address] [place] [address] Revit Drafter: Caden Brown MD Clarity (U) Clear Normal CLEAR [facility] Comment on above: Performed By: #### U A #### [facility] [address] [place] [address] Revit Drafter: Caden Brown MD Color (U) Yellow Normal YEL [facility] Comment on above: Performed By: #### U A #### [facility] [address] [place] [address] Revit Drafter: Caden Brown MD Comment Normal [facility] Comment on above: Performed By: #### U A #### [facility] [address] [place] [address] Revit Drafter: Caden Brown MD Glucose Ql (U) Negative Normal NEG [facility] Comment on above: Performed By: #### U A #### [facility] [address] [place] [address] Revit Drafter: Caden Brown MD Ketones Ql (U) Negative Normal NEG [facility] Comment on above: Performed By: #### U A #### [facility] [address] [place], [place] [id number] Revit Drafter: Caden Brown MD Leukocyte esterase Test strip Ql (U) Negative Normal NEG [facility] Comment on above: Performed By: #### U A #### [facility] [address] [place] [address] Revit Drafter: Caden Brown MD Nitrite,Ur Negative Normal NEG [facility] Comment on above: Performed By: #### U A #### [facility] [address] [place] [address] Revit Drafter: Caden Brown MD PH,Ur 7.0 Normal 5.0-8.0 [facility] Comment on above: Performed By: #### U A #### [facility] [address] [place] [address] Revit Drafter: Caden Brown MD Protein Ql (U) Negative Normal NEG [facility] Comment on above: Performed By: #### U A #### [facility] [address] [place], [place] [id number] Revit Drafter: Caden Brown MD Spec. Delta,Ur 1.010 Normal 1.005-1.03 0 [facility] Comment on above: Performed By: #### U A #### [facility] [address] [id number] Revit Drafter: Caden Brown MD Urobilinogen,Ur Normal Normal 0.0-1.0 [facility] Comment on above: Performed By: #### U A #### [facility] [address] [place], [place] [phone] Revit Drafter: Caden Brown MD XR CHEST PORTABLEon 11-16-19 25 XR CHEST PORTABLE CLINICAL HISTORY: Shortness of breath. Chest pain. CHEST PORTABLE AP VIEW: The lungs are clear. No pneumothorax. The pulmonary vascularity and cardiomediastinal silhouette are normal. No acute fracture is seen. IMPRESSION: Normal chest. Interpreted by: Сергей Cobian MD Signed by: Сергей Cobian MD 11/16/24 Final result Normal [facility] HCG ( test) Ql (U)o n 10-23-2024 Interpretation and review of laboratory results Normal [facility] Preg Test, Ur Negative Negative [facility] HCG ( test) Ql (U)o n 08-27-2024 Beta HCG ( test) Ql (U) Negative Normal NEG [facility] Comment on above: Performed By: #### 2 106-3 #### [facility] ([id number]) [address] [place] [address] Surgical Pathologyon 024 Surgical Pathology Normal [facility] Comment on above: Result Comment: [facility] [address] [place] [address] Surgical Pathology Consultation Patient Name:CHARIS ALLEN:2000 (Age: 23)Gender:FTaken:4Reported:09/06/2024hysician(s):Sanjeev nh-Catie DO Dick ([phone])Copy To: Rec. 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 Report Electronically Signed Out cjb/4Ceri Arguelles MD Interpretation performed at [facility], [address] [place] [address], License number: [id number]. Clinical History Lesion of tongue. Gross Description Received in formalin labeled TIFFANY, right base of tongue lesion is a Telfa pad with two travis-yellow rubbery soft tissue bits, 0.2 and 0.3 cm. The specimen is filtered and entirely submitted in a single cassette. (1, ns, [id number],m5) DM. dm/08/27/2024NSK Specimen(s) Received Right base of tongue Fee Codes(s): 1; [address] [facility] Visit (PODIAM ) -------- CHARIS ALLEN ([id number]) 4 F Date Time Provider Department 07/25/24 [...] which included preparing to see the patient, [id number] patient care, completing clinical documentation, obtaining and/or reviewing separately obtained history, performing a medically appropriate examination, counseling and educating the patient/family/caregiver , ordering medications, tests and care coordination (not separately reported). Time did not include procedure time. I agree with the Chief Complaint, ROS, and Past Histories independently gathered by the clinical pit crew support worker and the remaining scribed note accurately describes [...] GENERAL INS (more content not included)... Normal [facility] CT NECK SOFT TISSUE W CONTon 07-11-2024 [...] [place] Ty on 07/11/2024 8:38 AM Normal [facility] PREG QUANT HCGon 024 HCG QUANTITATIVE <1 mIU/mL [facility] Comment on above: 5-50 0.2-1 WEEK 50-500 1-2 WEEKS 100-5,000 2-3 WEEKS 500-10,000 3-4 WEEKS 1,000-50,000 4-5 WEEKS 10,000-100,000 5-6 WEEKS 15,000-200,000 6-8 WEEKS 10,000-100,000 2-3 MONTHS [facility] CT abdomen pelvis w conon CT abdomen pelvis w con [facility] [place] [address] [place] [address] CT Scan Report Signed Patient: Charis Allen MR#: [id number] : 2000 Acct:[id number] Age/Sex: 23 / F ADM Date: 06/27/24 Loc: ER Room: Type: [facility] ER Attending Dr: Copies to: [...] Michael Camacho M.D.06/28/2024 6:18 AM Dictation Location: [place] [address] Transcribed By: [facility] 06/28/24617 Dictated By: Michael Camacho DO 06/28/24615 Signed By: 06/28/24617 Normal [facility] Chlamydia/GC Amplificationon 06-28-2024 Chlamydia Trachomotis, JANET Negative Normal Negative [facility] Comment on above: Order Comment: SOURC E OF SPECIMEN: Genital Performed By: #### F S #### [address] #### GCCHLAMAMP #### [facility] , Neisseria Gonorrhoeae, JANET Negative Normal Negative [facility] Comment on above: Order Comment: SOURC E OF SPECIMEN: Genital Result Comment: Perf ormed at: =G - [facility] [address] [id number] Revit Drafter: Barbie Mota MD, Phone: [phone] PERFORMED BY: [place] [address] PATHOLOGIST IRRIGATING PUMP OPERATOR SAMANTHA VILLAR M.D. Performed By: #### F S #### [address] #### GCCHLAMAMP #### [facility] , Fungal Smearon 06-28-2024 Fungal Smear Fungus Smear Results No Yeast Like Elements Seen ------ Trichomonas Screen No Trichomonas Seen Trich Reference Reference range = None Seen PERFORMED BY: [place] [address] PATHOLOGIST IRRIGATING PUMP OPERATOR SAMANTHA VILLAR M.D. Normal [facility] Comment on above: Performed By: #### F S #### [place] [address] [place] #### GCCHLAMAMP #### [facility] , Trichomonas vaginalis detect ion by wet preparationOrdered By: Yung Nichols on 06-28-2024 T. vaginalis Wet prep Ql (Unsp spec) [facility] Alanine aminotransferase [En zymatic activity/volume] in Serum or PlasmaOrdered By: Yung Nichols on 06-27-2024 ALT [Catalytic activity/Vol] 20 U/L Normal 7-52 [facility] Comment on above: Performed By: #### C MP, LIPASE, CBC ####[place] [id number] [address] Albumin [Mass/volume] in Ser um or Plasma by Bromocresol green (BCG) dye binding methoOrdered By: Yung Nichols on 06-27-2024 Albumin BCG dye [Mass/Vol] 4.2 g/dL 3.5-5.7 [facility] Alkaline phosphatase [Enzyma tic activity/volume] in Serum or PlasmaOrdered By: Yung Nichols on 06-27-2024 ALP [Catalytic activity/Vol] 69 U/L Normal 34-104 [facility] Comment on above: Performed By: #### C MP, LIPASE, CBC ####[address] Aspartate aminotransferase [ Enzymatic activity/volume] in Serum or PlasmaOrdered By: Yung Nichols on 06-27-2024 AST [Catalytic activity/Vol] 21 U/L Normal 13-39 [facility] Comment on above: Performed By: #### C MP, LIPASE, CBC ####[address] Automated basophil %Ordered By: Yung Nichols on 06-27-2024 Basophils/100 WBC (Bld) 0.6 % Normal . [facility] Comment on above: Performed By: #### C MP, LIPASE, CBC ####[address] Automated basophil countOrde red By: Yung Nichols on 06-27-2024 Basophils (Bld) [#/Vol] 0.0 10*3/uL Normal 0.0-0.2 [facility] Comment on above: Result Comment: PERF ORMED BY: [facility] [address] [place] [address] PATHOLOGIST IRRIGATING PUMP OPERATOR SAMANTHA VILLAR M.D. Performed By: #### C MP, LIPASE, CBC ####[address] Automated blood monocyte cou ntOrdered By: Yung Nichols on 06-27-2024 Monocytes (Bld) [#/Vol] 0.5 10*3/uL Normal 0.0-0.8 [facility] Comment on above: Performed By: #### C MP, LIPASE, CBC ####[address] Automated eosinophil %Ordere d By: Yung Nichols on 06-27-2024 Eosinophils/100 WBC (Bld) 1.4 % Normal . [facility] [facility] Comment on above: Performed By: #### C MP, LIPASE, CBC ####[address] Automated eosinophil countOr dered By: Yung Nichols on 06-27-2024 Eosinophils (Bld) [#/Vol] 0.1 10*3/uL Normal 0.0-0.45 [facility] Comment on above: Performed By: #### C MP, LIPASE, CBC ####[address] Automated monocyte %Ordered By: Yung Nichols on 06-27-2024 Monocytes/100 WBC (Bld) 6.7 % Normal . [facility] Comment on above: Performed By: #### C MP, LIPASE, CBC ####[address] Automated neutrophil %Ordere d By: Yung Nichols on 06-27-2024 Neutrophils/100 WBC (Bld) 63.9 % Normal . [facility] Comment on above: Performed By: #### C MP, LIPASE, CBC ####[address] Bacteria [Presence] in Urine by AutomatedOrdered By: Yung Nichols on 06-27-2024 Bacteria Auto Ql (U) Rare [HPF] None Seen [facility] Bilirubin Test strip Ql (U)O rdered By: Yung Nichols on 06-27-2024 Bilirubin Ql (U) Negative Negative [facility] Bilirubin.total [Mass/volume ] in Serum or PlasmaOrdered By: Yung Nichols on 06-27-2024 Bilirubin [Mass/Vol] 1.5 mg/dL High 0.3-1.0 [facility] Comment on above: Samples from patient [...] Performed By: #### C MP, LIPASE, CBC ####[place] [id number] [place] Calcium [Mass/volume] in Ser um or PlasmaOrdered By: Yung Nichols on 06-27-2024 Calcium [Mass/Vol] 9.1 mg/dL Normal 8.6-10.3 [facility] Comment on above: Performed By: #### C MP, LIPASE, CBC ####[place] [id number] [facility] Carbon dioxide, total [Moles /volume] in Serum or PlasmaOrdered By: Yung Nichols on 06-27-2024 CO2 [Moles/Vol] 26.8 mmol/L Normal 21.0-31.0 [facility] Comment on above: Performed By: #### C MP, LIPASE, CBC ####[place] [id number] [place] [address] [place] Chloride [Moles/volume] in S emiliana or PlasmaOrdered By: Yung Nichols on 06-27-2024 Chloride [Moles/Vol] 105 mmol/L Normal 98-107 [facility] Comment on above: Performed By: #### C MP, LIPASE, CBC ####[place] [id number] [place] Color of Urine by AutoOrdere d By: Yung Nichols on 06-27-2024 Color (U) Yellow Normal Yellow [facility] Comment on above: Order Comment: SOURC E OF SPECIMEN: Genital Performed By: #### F S #### [facility] [address] #### GCCHLAMAMP #### [facility] , Complete Blood Count Auto Di ffon 06-27-2024 Mean Corpuscular HGB Conc 33.3 g/dL Normal 32.0-35.0 [facility] Comment on above: Performed By: #### C MP, LIPASE, CBC ####[address] Monocytes/100 WBC (Bld) 20.22 % High 0.00-20.00 [facility] Comment on above: Result Comment: For adults in ED, MDW > 20.0 may be associated with a higher risk of sepsis during the first 12 hrs of hospital admission Performed By: #### C MP, LIPASE, CBC ####[address] NRBC% 0.2 /100{WBC} Normal 0-0.5 [facility] Comment on above: Performed By: #### C MP, LIPASE, CBC ####[address] Comprehensive Metabolic Pane yogi 06-27-2024 Albumin [Mass/Vol] 4.2 g/dL Normal 3.5-5.7 [facility] Comment on above: Performed By: #### C MP, LIPASE, CBC ####[address] Creatinine Clr Calc Pharmacy 115.39 Normal [facility] Comment on above: Performed By: #### C MP, LIPASE, CBC ####[address] GFR/1.73 sq M.predicted MDRD (S/P/Bld) [Vol rate/Area] mL/min/{1.73_m2} Normal [facility] Comment on above: Performed By: #### C MP, LIPASE, CBC ####[address] Creatinine [Mass/volume] in Serum or PlasmaOrdered By: Yung Nichols on 06-27-2024 Creatinine [Mass/Vol] 0.75 mg/dL Normal 0.60-1.20 [facility] Comment on above: Performed By: #### C MP, LIPASE, CBC ####[address] Dipstick and Microscopicon 0 06-27-2024 Bacteria,Urine Rare Normal None Seen [facility] Comment on above: Order Comment: SOURC E OF SPECIMEN: Genital Performed By: #### F S #### [address] #### GCCHLAMAMP #### [facility] , Bilirubin,Urine Negative Normal Negative [facility] Comment on above: Order Comment: SOURC E OF SPECIMEN: Genital Performed By: #### F S #### [address] #### GCCHLAMAMP #### [facility] , Glucose Ql (U) Normal Normal Normal [facility] Comment on above: Order Comment: SOURC E OF SPECIMEN: Genital Performed By: #### F S #### [address] #### GCCHLAMAMP #### [facility] , Hyaline Casts,Urine None Normal 0-8 [facility] Comment on above: Order Comment: SOURC E OF SPECIMEN: Genital Performed By: #### F S #### [address] #### GCCHLAMAMP #### [facility] , Mucus,Urine 4+ Critically abnormal [facility] Comment on above: Order Comment: SOURC E OF SPECIMEN: Genital Performed By: #### F S #### [address] #### GCCHLAMAMP #### [facility] , Nitrite,Urine Negative Normal Negative [facility] Comment on above: Order Comment: SOURC E OF SPECIMEN: Genital Performed By: #### F S #### [address] #### GCCHLAMAMP #### [facility] , Occult Blood,Urine 1+ High Negative [facility] Comment on above: Order Comment: SOURC E OF SPECIMEN: Genital Performed By: #### F S #### [address] #### GCCHLAMAMP #### [facility] , Protein,Urine Negative Normal Negative [facility] Comment on above: Order Comment: SOURC E OF SPECIMEN: Genital Performed By: #### F S #### [address] #### GCCHLAMAMP #### [facility] , RBC,Urine 5-9 High 0-4 [facility] Comment on above: Order Comment: SOURC E OF SPECIMEN: Genital Performed By: #### F S #### [address] #### GCCHLAMAMP #### [facility] , Specificy Delta,Urine 1.026 Normal 1.00 1-1.03 0 [facility] Comment on above: Order Comment: SOURC E OF SPECIMEN: Genital Performed By: #### F S #### [place] [address] [place] #### GCCHLAMAMP #### [facility] , Squamous Epithelial Cell,Urine 3-4 High 0-2 [facility] Comment on above: Order Comment: SOURC E OF SPECIMEN: Genital Performed By: #### F S #### [place] [address] [place] #### GCCHLAMAMP #### [facility] , Urobilinogen,Urine Normal Normal Normal [facility] Comment on above: Order Comment: SOURC E OF SPECIMEN: Genital Performed By: #### F S #### [place] [address] [place] #### GCCHLAMAMP #### [facility] , WBC,Urine 20-49 High 0-4 [facility] Comment on above: Order Comment: SOURC E OF SPECIMEN: Genital Performed By: #### F S #### [place] [address] [place] #### GCCHLAMAMP #### [facility] , Epithelial cells.squamous [# /area] in Urine sediment by Automated countOrdered By: Yung Nichols on 06-27-2024 Epithelial cells.squamous Auto (Urine sed) [#/Area] 3-4 [HPF] High 0-2 [facility] Erythrocyte distribution wid th [Ratio] by Automated countOrdered By: Yung Nichols on 06-27-2024 Erythrocyte distribution width (RBC) [Ratio] 14.2 % Normal 11.9-15.3 [facility] Comment on above: Performed By: #### C MP, LIPASE, CBC ####[address] Erythrocytes [#/area] in Uri ne sediment by Automated countOrdered By: Yung Nichols on 06-27-2024 RBC Auto (Urine sed) [#/Area] 5-9 [HPF] High 0-4 [facility] Erythrocytes [#/volume] in B lood by Automated countOrdered By: Yung Nichols on 06-27-2024 RBC (Bld) [#/Vol] 4.32 10*6/uL Normal 3.60-5.00 [facility] Comment on above: Performed By: #### C MP, LIPASE, CBC ####[address] Glucose [Mass/volume] in Ser um or PlasmaOrdered By: Yung Nichols on 06-27-2024 Glucose [Mass/Vol] 82 mg/dL Normal 70-100 [facility] Comment on above: ADA recommended refe rence rangeRandom Glucose Reference Range is dependent on time and content of last meal. Glucose of more than 200 mg/dL in a nonstressed, ambulatory subject supports the diagnosis of Diabetes Mellitus. Result Comment: [place] Glucose Reference Range is dependent on time and content of last meal. Glucose of more than 200 mg/dL in a nonstressed, ambulatory subject supports the diagnosis of Diabetes Mellitus. ADA recommended reference range Performed By: #### C MP, LIPASE, CBC ####[place] [id number] Glucose [Mass/volume] in Uri ne by Test stripOrdered By: Yung Nichols on 06-27-2024 Glucose Test strip (U) [Mass/Vol] Normal mg/dL Normal [facility] HCG ( test) IA.rapi d Ql (U)Ordered By: Yung Nichols on 06-27-2024 HCG ( test) Ql (U) Negative [facility] HCG,Urineon 06-27-2024 Beta HCG ( test) Ql (U) Negative Normal [facility] Comment on above: Order Comment: SOURC E OF SPECIMEN: Genital Result Comment: PERF ORMED BY: [place] [address] PATHOLOGIST IRRIGATING PUMP OPERATOR SAMANTHA VILLAR M.D. Performed By: #### F S #### [address] #### GCCHLAMAMP #### [facility] , Hematocrit [Volume Fraction] of Blood by Automated countOrdered By: Yung Nichols on 06-27-2024 Hematocrit (Bld) [Volume fraction] 39.5 % Normal 34.0-46.4 [facility] Comment on above: Performed By: #### C MP, LIPASE, CBC ####[facility] [id number] Hemoglobin Test strip Ql (U) Ordered By: Yung Nichols on 06-27-2024 Hemoglobin Ql (U) 1+ High Negative [facility] Hemoglobin [Mass/volume] in BloodOrdered By: Yung Nichols on 06-27-2024 Hemoglobin (Bld) [Mass/Vol] 13.2 g/dL Normal 11.8-15.4 [facility] Comment on above: Performed By: #### C MP, LIPASE, CBC ####[facility] [id number] [address] Hyaline casts [#/area] in Ur ine sediment by Automated countOrdered By: Yung Nichols on 06-27-2024 Hyaline casts Auto (Urine sed) [#/Area] None [LPF] 0-8 [facility] Ketones [Presence] in Urine by Test stripOrdered By: Yung Nichols on 06-27-2024 Ketones Ql (U) Negative Normal Negative [facility] Comment on above: Order Comment: SOURC E OF SPECIMEN: Genital Performed By: #### F S #### [facility] [address] #### GCCHLAMAMP #### [facility] , Leukocyte esterase [Presence ] in Urine by Test stripOrdered By: Yung Nichols on 06-27-2024 Leukocyte esterase Test strip Ql (U) 4+ High Negative [facility] Comment on above: Order Comment: SOURC E OF SPECIMEN: Genital Performed By: #### F S #### [facility] [address] [place] [address] #### GCCHLAMAMP #### [facility] , Leukocytes [#/area] in Urine sediment by Automated countOrdered By: Yung Nichols on 06-27-2024 WBC Auto (Urine sed) [#/Area] 20-49 [HPF] High 0-4 [facility] Leukocytes [#/volume] correc roe for nucleated erythrocytes in Blood by Automated counOrdered By: Yung Nichols on 06-27-2024 WBC corrected for nucl RBC Auto (Bld) [#/Vol] 7.2 10*3/uL 3.8-11.6 [facility] Leukocytes [#/volume] in Blo od by Automated countOrdered By: Yung Nichols on 06-27-2024 WBC (Bld) [#/Vol] 7.2 10*3/uL Normal 3.8-11.6 [facility] Comment on above: Performed By: #### C MP, LIPASE, CBC ####[place] [id number] [facility] Lipase [Enzymatic activity/v olume] in Serum or PlasmaOrdered By: Yung Nichols on 06-27-2024 Lipase [Catalytic activity/Vol] 19.0 U/L Normal 11.0-82.0 [facility] Comment on above: Result Comment: PERF ORMED BY: [facility] [address] [place] [id number] PATHOLOGIST IRRIGATING PUMP OPERATOR SAMANTHA VILLAR M.D. Performed By: #### C MP, LIPASE, CBC ####[address] Lymphocytes [#/volume] in Bl ood by Automated countOrdered By: Yung Nichols on 06-27-2024 Lymphocytes (Bld) [#/Vol] 2.0 10*3/uL Normal 1.00-4.8 [facility] Comment on above: Performed By: #### C MP, LIPASE, CBC ####[address] Lymphocytes/100 leukocytes i n Blood by Automated countOrdered By: Yung Nichols on 06-27-2024 Lymphocytes/100 WBC (Bld) 27.4 % Normal . [facility] Comment on above: Performed By: #### C MP, LIPASE, CBC ####[place] [id number] [facility] MCH [Entitic mass] by Automa roe countOrdered By: Yung Nichols on 06-27-2024 MCH (RBC) [Entitic mass] 30.5 pg Normal 24.7-34.3 [facility] Comment on above: Performed By: #### C MP, LIPASE, CBC ####[place] [id number] [facility] MCHC Auto (RBC) [Mass/Vol]Or dered By: Yung Nichols on 06-27-2024 MCHC (RBC) [Mass/Vol] 33.3 g/dL 32.0-35.0 [facility] MCV [Entitic volume] by Auto mated countOrdered By: Yung Nichols on 06-27-2024 MCV (RBC) [Entitic vol] 91.5 fL Normal 80-100 [facility] Comment on above: Performed By: #### C MP, LIPASE, CBC ####[facility] [id number] Monocyte distribution width [Entitic volume] in Blood by AutomatedOrdered By: Yung Nichols on 06-27-2024 Monocyte distribution width Auto (Bld) [Entitic vol] 20.22 % High 0.00-20.00 [facility] Comment on above: For adults in ED, MD W > 20.0 may be associated with a higher risk of sepsis during the first 12 hrs of hospital admission Mucus [Presence] in Urine by AutomatedOrdered By: Yung Nichols on 06-27-2024 Mucus Auto Ql (U) 4+ [LPF] Abnormal [facility] Neutrophils [#/volume] in Bl ood by Automated countOrdered By: Yung Nichols on 06-27-2024 Neutrophils (Bld) [#/Vol] 4.6 10*3/uL Normal 1.8-7.7 [facility] Comment on above: Performed By: #### C MP, LIPASE, CBC ####[facility] [id number] [place] [address] Nitrite Test strip Ql (U)Ord ered By: Yung Nichols on 06-27-2024 Nitrite Ql (U) Negative Negative [facility] No Panel InformationOrdered By: Yung Nichols on 06-27-2024 Estimated GFR (CKD-EPI) > 60.0 mL/Min [facility] Creatinine Clearance (Chem 115.39 [facility] Nucleated erythrocytes [Pres ence] in Blood by Automated countOrdered By: Yung Nichols on 06-27-2024 Nucleated RBC Auto Ql (Bld) 0.2 /100{WBC} 0-0.5 [facility] Platelet mean volume [Entiti c volume] in Blood by Automated countOrdered By: Yung Nichols on 06-27-2024 Platelet mean volume (Bld) [Entitic vol] 8.0 fL Normal 6.3-10.7 [facility] Comment on above: Performed By: #### C MP, LIPASE, CBC ####[place] [id number] Platelets [#/volume] in Bloo d by Automated countOrdered By: Yung Nichols on 06-27-2024 Platelets (Bld) [#/Vol] 201 10*3/uL Normal 150-450 [facility] Comment on above: Performed By: #### C MP, LIPASE, CBC ####[place] [id number] Potassium [Moles/volume] in Serum or PlasmaOrdered By: Yung Nichols on 06-27-2024 Potassium [Moles/Vol] 3.4 mmol/L Low 3.5-5.1 [facility] Comment on above: Performed By: #### C MP, LIPASE, CBC ####[address] Protein Test strip (U) [Mass /Vol]Ordered By: Yung Nichols on 06-27-2024 Protein (U) [Mass/Vol] Negative Negative [facility] Protein [Mass/volume] in Ser um or PlasmaOrdered By: Yung Nichols on 06-27-2024 Protein [Mass/Vol] 6.4 g/dL Normal 6.4-8.9 [facility] Comment on above: Performed By: #### C MP, LIPASE, CBC ####[address] Serum globulin measurement b y calculation (mass/volume)Ordered By: Yung Nichols on 06-27-2024 Globulin (S) [Mass/Vol] 2.2 g/dL Normal [facility] Comment on above: Performed By: #### C MP, LIPASE, CBC ####[address] Serum or plasma albumin/glob ulin mass ratioOrdered By: Yung Nichols on 06-27-2024 Albumin/Globulin [Mass ratio] 1.9 {ratio} Normal [facility] Comment on above: Performed By: #### C MP, LIPASE, CBC ####[place] [id number] Serum or plasma anion gap de terminationOrdered By: Yung Nichols on 06-27-2024 Anion gap [Moles/Vol] 10.6 mmol/L Normal 6.0-15.0 [facility] Comment on above: Performed By: #### C MP, LIPASE, CBC ####[place] [id number] Sodium [Moles/volume] in Ser um or PlasmaOrdered By: Yung Nichols on 06-27-2024 Sodium [Moles/Vol] 139 mmol/L Normal 136-145 [facility] Comment on above: Performed By: #### C MP, LIPASE, CBC ####[address] Specific gravity Test strip (U) [Rel density]Ordered By: Yung Nichols on 06-27-2024 Specific gravity (U) [Rel density] 1.026 1.001-1.03 0 [facility] Urea nitrogen [Mass/volume] in Serum or PlasmaOrdered By: Yung Nichols on 06-27-2024 Urea nitrogen [Mass/Vol] 17 mg/dL Normal 7-25 [facility] Comment on above: Performed By: #### C MP, LIPASE, CBC ####[address] Urine Cultureon 06-27-2024 Bacteria identified Cx Nom (U) 75,000 colonies/ml mixed bacterial skin contaminants 2 Days PERFORMED BY: [facility] [address] [place] [address] PATHOLOGIST IRRIGATING PUMP OPERATOR SAMANTHA VILLAR M.D. Normal [facility] Comment on above: Performed By: #### F S #### [address] #### GCCHLAMAMP #### [facility] , Urine appearanceOrdered By: Yung Nichols on 09-19-2024 Appearance (U) Clear Normal Clear [facility] Comment on above: Order Comment: SOURC E OF SPECIMEN: Genital Performed By: #### F S #### [facility] [address] [place] [address] [place] #### GCCHLAMAMP #### [facility] , Urobilinogen Test strip (U) [Mass/Vol]Ordered By: Yung Nichols on 06-27-2024 Urobilinogen (U) [Mass/Vol] Normal mg/dL Normal [facility] pH of Urine by Test stripOrd ered By: Yung Nichols on 06-27-2024 pH (U) 6.0 [pH] Normal 5.0-9.0 [facility] Comment on above: Order Comment: SOURC E OF SPECIMEN: Genital Performed By: #### F S #### [facility] [address] [place] [address] #### GCCHLAMAMP #### [facility] , TBH PREG QUANT HCGon 024 HCG QUANTITATIVE <1 mIU/mL [facility] Comment on above: 5-50 0.2-1 WEEK 50-500 1-2 WEEKS 100-5,000 2-3 WEEKS 500-10,000 3-4 WEEKS 1,000-50,000 4-5 WEEKS 10,000-100,000 5-6 WEEKS 15,000-200,000 6-8 WEEKS 10,000-100,000 2-3 MONTHS [facility] CNOVon 12-26-2023 CNOV Office Visit (PODIAM ) -------- CHARIS ALLEN ([id number]) 4 F Date Time Provider Department 12/26/23 [...] the overlying eponychium and underlying nailbed. An Micronesian anvil was used to cut the offending [...] A Mome (more content not included)... Normal [facility] CNOVon 11-21-2023 CNOV Office Visit (PODIAM ) -------- CHARIS ALLEN ([id number]) 4 F Date Time Provider Department 11/21/23 2:15 PM ÁNGELA DELGADO During your visit today, we recorded the following information about you: Last Period 11/06/23 Ángela Delgado DPM 11/21/2023 3:03 PM Signed Service Date: November 21, 2023 PCP: No primary care provider on file. Last Podiatry Visit: None at [facility] The history is provided by [...] order to perform a complete physical exam, [address] was performed. This incidental service is integral [...] which included preparing to see the patient, [id number] patient care, completing clinical documentation, obtaining and/or reviewing separately obtained history, performing a medically appropriate examination, counseling and educating the patient/family/caregiver , ordering medications, tests, or procedures and care cook's assistant (more content not included)... Normal [facility] A1C with Estimated Average G ramirez 11-08-2023 HbA1c (Bld) [Mass fraction] 5.000 % Normal 4.3-5.6 % [facility] Other HbA1c (Bld) [Mass fraction] 97 mg/dL [facility] Other Alanine aminotransferase [En zymatic activity/volume] in Serum or PlasmaOrdered By: Pérez Barcenas on 11-08-2023 ALT [Catalytic activity/Vol] 15 U/L 7-52 [facility] Albumin [Mass/volume] in Ser um or Plasma by Bromocresol green (BCG) dye binding methoOrdered By: Pérez Barcenas on 11-08-2023 Albumin BCG dye [Mass/Vol] 4.3 g/dL 3.5-5.7 [facility] Alkaline phosphatase [Enzyma tic activity/volume] in Serum or PlasmaOrdered By: Pérez Barcenas 11-08-2023 ALP [Catalytic activity/Vol] 80 U/L 34-104 [facility] Aspartate aminotransferase [ Enzymatic activity/volume] in Serum or PlasmaOrdered By: Pérez Barcenas 11-08-2023 AST [Catalytic activity/Vol] 14 U/L 13-39 [facility] Bilirubin.total [Mass/volume ] in Serum or PlasmaOrdered By: Pérez Barcenas on 11-08-2023 Bilirubin [Mass/Vol] 0.8 mg/dL 0.3-1.0 [facility] Calcium [Mass/volume] in Ser um or PlasmaOrdered By: Pérez Barcenas 11-08-2023 Calcium [Mass/Vol] 9.7 mg/dL 8.6-10.3 [facility] Carbon dioxide, total [Moles /volume] in Serum or PlasmaOrdered By: Pérez Barcenas on 11-08-2023 CO2 [Moles/Vol] 29.4 mmol/L 21.0-31.0 [facility] Chloride [Moles/volume] in S emiliana or PlasmaOrdered By: Pérez Barcenas on 11-08-2023 Chloride [Moles/Vol] 105 mmol/L 98-107 [facility] Cholesterol [Mass/volume] in Serum or PlasmaOrdered By: Pérez Barcenas on 11-08-2023 Cholesterol [Mass/Vol] 128 mg/dL 140-200 [facility] Comment on above: Chol less than 200 m g/dl low riskChol 201-239 mg/dl borderline riskChol 240 mg/dl and greater high risk Cholesterol in LDL Calc [Mas s/Vol]Ordered By: Pérez Barcenas on 11-08-2023 Cholesterol in LDL [Mass/Vol] 70 mg/dL 0-100 [facility] Comment on above: LDL ATP III CLASSIFI CATIONLDL less than 100 mg/dL OptimalLDL 100-129 mg/dL Near or above optimalLDL 130-159 mg/dL Borderline highLDL 160-189 mg/dL HighLDL greater than 189 mg/dL Very high Cholesterol in VLDL Calc [Ma ss/Vol]Ordered By: Pérez Barcenas on 11-08-2023 Cholesterol in VLDL [Mass/Vol] 10 mg/dL [facility] Comprehensive Metabolic Pane yogi 11-08-2023 Albumin [Mass/Vol] 4.483794 g/dL Normal 3.5-5.7 g/dL [facility] Other Bilirubin [Mass/Vol] 0.3369668 mg/dL Normal 0.3- 1.0 mg/dL [employer] Other Calcium [Mass/Vol] 9.4865406 mg/dL Normal 8.6-10 .3 mg/dL [employer] Other CO2 [Moles/Vol] 29.97492365 mmol/L Normal 21.0-3 1.0 mmol/L [employer] Other Creatinine [Mass/Vol] 0.55877198 mg/dL Normal 0. 60-1.20 mg/dL [employer] Other GFR/1.73 sq M.predicted MDRD (S/P/Bld) [Vol rate/Area] mL/min/{1.73_m2} [employer] Other Potassium [Moles/Vol] 4.96215255 mmol/L Normal 3 .5-5.1 mmol/L [employer] Other Protein [Mass/Vol] 6.698523 g/dL Normal 6.4-8.9 g/dL [employer] Other Comprehensive Metabolic Panel 2.2 g/dL [employer] Other Creatinine [Mass/volume] in Serum or PlasmaOrdered By: Pérez Barcenas on 11-08-2023 Creatinine [Mass/Vol] 0.68 mg/dL 0.60-1.20 [facility] Globulin Calc (S) [Mass/Vol] Ordered By: Pérez Barcenas on 11-08-2023 Globulin (S) [Mass/Vol] 2.2 g/dL [facility] Glucose [Mass/volume] in Ser um or PlasmaOrdered By: Pérez Barcenas on 11-08-2023 Glucose [Mass/Vol] 80 mg/dL 70-100 [facility] Comment on above: ADA recommended refe [...] from glycated hemoglobin (Bld) [Mass/Vol] 97 mg/dL [facility] Hemoglobin A1c percentageOrd ered By: Préez Barcenas on 11-08-2023 HbA1c (Bld) [Mass fraction] 5.0 % 4.3-5.6 [facility] Comment on above: Increased risk for d iabetes: 5.7 - 6.4diabetes: >6.4glycemic control for adults with diabetes: <7.0 Lipid Panelon 11-08-2023 Cholesterol in LDL Elph Qn 70 mg/dL Normal 0-100 mg/dL [facility] Other Lipid Panel 54 mg/dL Normal 0-149 mg/dL [facility] Other Lipid Panel 10 mg/dL [facility] Other No Panel InformationOrdered By: Pérez Barcenas on 11-08-2023 Estimated GFR (CKD-EPI) > 60.0 mL/Min [facility] Creatinine Clearance (Chem N/A [facility] Potassium [Moles/volume] in Serum or PlasmaOrdered By: Pérez Barcenas on 11-08-2023 Potassium [Moles/Vol] 4.3 mmol/L 3.5-5.1 [facility] Protein [Mass/volume] in Ser um or PlasmaOrdered By: Pérez Barcenas on 11-08-2023 Protein [Mass/Vol] 6.5 g/dL 6.4-8.9 [facility] Serum or plasma albumin/glob ulin mass ratioOrdered By: Pérez Barcenas on 11-08-2023 Albumin/Globulin [Mass ratio] 2.0 {ratio} [facility] Serum or plasma anion gap de terminationOrdered By: Pérez Barcenas on 11-08-2023 Anion gap [Moles/Vol] 8.9 mmol/L 6.0-15.0 [facility] Serum or plasma high density lipoprotein (HDL) cholesterol measurementOrdered By: Pérez Barcenas on 11-08-2023 Cholesterol in HDL [Mass/Vol] 47 mg/dL 23-92 [facility] Comment on above: HDL CHOL ATP-III CLA SSIFICATION Cardiovascular RiskHDL > or equal to 60 mg/dL LOWHDL < 40 mg/dL HIGH Serum or plasma total choles terol/high density lipoprotein (HDL) cholesterol mass ratOrdered By: Pérez Barcenas on 11-08-2023 Cholesterol.total/Lulu sterol in HDL [Mass ratio] 2.7 {ratio} <5.0 [facility] Sodium [Moles/volume] in Ser um or PlasmaOrdered By: Pérez Barcenas on 11-08-2023 Sodium [Moles/Vol] 139 mmol/L 136-145 [facility] Thyroid Stimulating Hormoneo n 11-08-2023 TSH Qn [id number] m[IU]/L Normal 0.45-5 .33 u[iU]/mL [employer] Other Thyrotropin [Units/volume] i n Serum or PlasmaOrdered By: Pérez Barcenas on 11-08-2023 TSH Qn 1.24 m[IU]/L 0.45-5.33 [facility] Triglyceride [Mass/volume] i n Serum or PlasmaOrdered By: Pérez Barcenas on 11-08-2023 Triglyceride [Mass/Vol] 54 mg/dL 0-149 F [facility] Comment on above: TRIG ATP III CLASSIF ICATIONTRIG less than 150 mg/dL NormalTRIG 150-199 mg/dL Borderline highTRIG 200-500 mg/dL High TRIG greater than 500 mg/dL Very highStandard traceable to the Center for Disease Conrtrol and Prevention (CDC) test method. Urea nitrogen [Mass/volume] in Serum or PlasmaOrdered By: Pérez Barcenas on 11-08-2023 Urea nitrogen [Mass/Vol] 13 mg/dL 7-25 [facility] Erythrocyte distribution wid th Auto (RBC) [Ratio]Ordered By: ERLIN Vann on 08-17-2023 Erythrocyte distribution width (RBC) [Ratio] 14.4 % 11.9-15.3 [facility] Hematocrit Auto (Bld) [Volum e fraction]Ordered By: ERLIN Vann on 08-17-2023 Hematocrit (Bld) [Volume fraction] 35.2 % 34.0-46.4 [facility] Hemoglobin [Mass/volume] in BloodOrdered By: ERLIN Vann on 08-17-2023 Hemoglobin (Bld) [Mass/Vol] 11.7 g/dL 11.8-15.4 [facility] Leukocytes [#/volume] correc roe for nucleated erythrocytes in Blood by Automated counOrdered By: ERLIN Vann on 08-17-2023 WBC corrected for nucl RBC Auto (Bld) [#/Vol] 8.0 10*3/uL 3.8-11.6 [facility] MCH Auto (RBC) [Entitic mass ]Ordered By: ERLIN Vann on 08-17-2023 MCH (RBC) [Entitic mass] 29.8 pg 24.7-34.3 [facility] MCHC Auto (RBC) [Mass/Vol]Or dered By: ERLIN Vann on 08-17-2023 MCHC (RBC) [Mass/Vol] 33.3 g/dL 32.0-35.0 [facility] MCV Auto (RBC) [Entitic vol] Ordered By: ERLIN Vann on 08-17-2023 MCV (RBC) [Entitic vol] 89.6 fL 80-100 F [facility] Platelet mean volume Auto (B ld) [Entitic vol]Ordered By: ERLIN Vann on 08-17-2023 Platelet mean volume (Bld) [Entitic vol] 8.1 fL 6.3-10.7 [facility] Platelets Auto (Bld) [#/Vol] Ordered By: ERLIN Vann on 08-17-2023 Platelets (Bld) [#/Vol] 186 10*3/uL 150-450 [facility] RBC Auto (Bld) [#/Vol]Ordere d By: ERLIN Vann on 08-17-2023 RBC (Bld) [#/Vol] 3.93 10*6/uL 3.60-5.00 [facility] CNPIsabela 08-16-2023 CNPN Telephone (INTMAL) -------- CHARIS ALLEN ([id number]) 4 F Date Time Provider Department 08/16/23 [...] calling: self Call patient at: at home [phone] (home) [phone] (cell) Was an appointment scheduled: No Closing statement: Results or non-symptom based questions: Thank you for calling [facility], your call will be returned [...] Fully Assessed Reason for Visit: Patient Question [7873] Prescriptions as of 08/21/2023 - Sulfacetamide Sodium-Sulfur [...] by MAMTA HERNÁNDEZ LPN on 08/21/23 Normal [facility] BILIRUBIN CONJUGATED (DIRECT )on 01-03-2023 BILI, CONJUGATED 0.2 mg/dL Normal 0.0-0.2 [facility] Comment on above: Performed By: #### D NAN, CMP #### [facility] [address] [place] [address] Dr. Yvette Ohara PROF 14(COMP METB)on 023 Albumin [Mass/Vol] 4.1 g/dL Normal 3.4-5.0 [facility] Comment on above: Performed By: #### D NAN, CMP #### [facility] [address] [place] [address] Dr. Yvette Ohara Albumin/Globulin [Mass ratio] 1.3 {ratio} Normal [facility] Comment on above: Performed By: #### D NAN, CMP #### [facility] [address] [place] [address] Dr. Yvette Ohara ALP [Catalytic activity/Vol] 122 U/L Critically high 46-116 [facility] Comment on above: Performed By: #### D NAN, CMP #### [facility] [address] [address] [address] Yvette Ohara ALT [Catalytic activity/Vol] 38 U/L Normal 14-59 [facility] Comment on above: Performed By: #### D NAN, CMP #### [facility] [address] [address] [address] Yvette Ohara Anion gap [Moles/Vol] 13.9 mmol/L Normal [facility] Comment on above: Performed By: #### D NAN, CMP #### [facility] [address] [address] [address] Yvette Ohara AST [Catalytic activity/Vol] 20 U/L Normal 15-37 [facility] Comment on above: Performed By: #### D NAN, CMP #### [facility] [address] [address] [address] Yvette Ohara Bilirubin [Mass/Vol] 0.9 mg/dL Normal 0.2-1.0 [facility] Comment on above: Performed By: #### D NAN, CMP #### [facility] [address] [address] [address] Yvette Ohara Calcium [Mass/Vol] 9.2 mg/dL Normal 8.5-10.1 [facility] Comment on above: Performed By: #### D NAN, CMP #### [facility] [address] [address] [address] Yvette Ohara Chloride [Moles/Vol] 107 mmol/L Normal 98-107 [facility] Comment on above: Performed By: #### D NAN, CMP #### [facility] [address] [address] [address] Yvette Ohara CO2 [Moles/Vol] 26.9 mmol/L Normal 21.0-32.0 [facility] Comment on above: Performed By: #### D NAN, CMP #### [facility] [address] [address] [address] Yvette Ohara Creatinine [Mass/Vol] 0.87 mg/dL Normal 0.55-1.02 [facility] Comment on above: Performed By: #### D NAN, CMP #### [facility] [address] [address] [address] Yvette Ohara EGFR-AF BRUNEIAN >60 Normal >=60 [facility] Comment on above: Performed By: #### D NAN, CMP #### [facility] [address] [address] [address] Yvette Ohara EGFR-NON AF BRUNEIAN >60 Normal >=60 [facility] Comment on above: Performed By: #### D NAN, CMP #### [facility] [address] [address] [address] Yvette Ohara Globulin (S) [Mass/Vol] 3.2 g/dL Normal [facility] Comment on above: Performed By: #### D NAN, CMP #### [facility] [address] [address] [address] Yvette Ohara Glucose [Mass/Vol] 141 mg/dL Critically high 74-106 [facility] Comment on above: Performed By: #### D NAN, CMP #### [facility] [address] [address] [address] Yvette Ohara Potassium [Moles/Vol] 3.8 mmol/L Normal 3.5-5.1 [facility] Comment on above: Performed By: #### D NAN, CMP #### [facility] [address] [address] [address] Yvette Ohara Protein [Mass/Vol] 7.3 g/dL Normal 6.4-8.2 [facility] Comment on above: Performed By: #### D NAN, CMP #### [facility] [address] [address] [address] Yvette Ohara Sodium [Moles/Vol] 144 mmol/L Normal 136-145 [facility] Comment on above: Performed By: #### D NAN, CMP #### [facility] [address] [address] [address] Yvette Ohara Urea nitrogen [Mass/Vol] 9.0 mg/dL Normal 7.0-18.0 [facility] Comment on above: Performed By: #### D NAN, CMP #### [facility] [address] [place], [place] [address] Dr. Yvette Ohara Urea nitrogen/Creatinine [Mass ratio] 10.3 mg/mg Normal [facility] Comment on above: Performed By: #### D NAN, CMP #### [facility] [address] [place], [place] [address] Dr. Yvette Ohara IGF 1on 01-02-2023 INSULIN LIKE GROWTH FACTOR I 391 [facility] Comment on above: Result Comment: Refe [...] 10 years 85 - 526 [facility] Performed By: #### L IGF1 #### Testing performed at [facility] SALIVARY CORTISOLon 12-27-19 Salivary Cortisol, [place] 0.021 ug/dL Normal [facility] Comment on above: Result Comment: This test was developed and its performance characteristics determined by [facility]. It has not been cleared or approved by the Food and Drug Administration. Reference Range: Children and Adults: 8:00a.m.: 0.025 - 0.600 Noon: <0.010 - 0.330 4:00p.m.: 0.010 - 0.200 Midnight: <0.010 - 0.090 Performed By: #### C MP, JESSICA #### [facility] [address] [address] [address] Yvette Ohara TESTOSTERONE, FREE,DIRECT, T OTALon 12-21-2022 Free Testosterone(Direct) 2.4 pg/mL Normal 0.0-4.2 [facility] Comment on above: Result Comment: Perf ormed at: BN Performed By: #### T ESTFRD #### [facility] [address] [place] [address] Dr. Yvette Ohara Testosterone [Mass/Vol] 41 ng/dL Normal 13-71 T [facility] Comment on above: Result Comment: Perf ormed at: CB Performed By: #### T ESTFRD #### [facility] [address] [place] [address] Dr. Yvette Ohara DHEA-SULFATEon 12-16-2022 DHEA-Sulfate 410.0 ug/dL Normal 110.0-431. 7 [facility] Comment on above: Performed By: #### C MP, JESSICA #### [facility] [address] [place] [address] Dr. Yvette Ohara INSULINon 12-16-2022 Insulin 16.6 uIU/mL Normal 2.6-24.9 [facility] Comment on above: Performed By: #### C MP, JESSICA #### [facility] [address] [place] [address] Dr. Yvette Ohara GLYCOHEMOGLOBIN A1Con 2022 ADA RECOMMENDATION SEE BELOW Normal [facility] Comment on above: Result Comment: ADA RECOMMENDED LIMIT 4.0 - 6.0 ADA THERAPEUTIC TARGET < 7.0 ACTION SUGGESTED > 7.0 Performed By: #### A 1C #### [facility] [address] [place] [address] Dr. Yvette Ohara Glucose [Mass/Vol] 108 mg/dL Normal [facility] Comment on above: Performed By: #### A 1C #### [facility] [address] [place] [address] Dr. Yvette Ohara HbA1c (Bld) [Mass fraction] 5.4 % Normal 4.5-6.2 [facility] Comment on above: Performed By: #### A 1C #### [facility] [address] [place] [address] Dr. Yvette Ohara PROF 14(COMP METB)on 023 Albumin [Mass/Vol] 4.4 g/dL Normal 3.4-5.0 [facility] Comment on above: Performed By: #### C MP, TSH, T4 #### [facility] [address] [address] [address] Yvette Ohara Albumin/Globulin [Mass ratio] 1.3 {ratio} Normal [facility] Comment on above: Performed By: #### C MP, TSH, T4 #### [facility] [address] [address] [address] Yvette Ohara ALP [Catalytic activity/Vol] 133 U/L Critically high 46-116 [facility] Comment on above: Performed By: #### C MP, TSH, T4 #### [facility] [address] [address] [address] Yvette Ohara ALT [Catalytic activity/Vol] 32 U/L Normal 14-59 [facility] Comment on above: Performed By: #### C MP, TSH, T4 #### [facility] [address] [address] [address] Yvette Ohara Anion gap [Moles/Vol] 12.9 mmol/L Normal [facility] Comment on above: Performed By: #### C MP, TSH, T4 #### [facility] [address] [address] [address] Yvette Ohara AST [Catalytic activity/Vol] 18 U/L Normal 15-37 [facility] Comment on above: Performed By: #### C MP, TSH, T4 #### [facility] [address] [address] [address] Yvette Ohara Bilirubin [Mass/Vol] 1.2 mg/dL Critically high 0.2-1.0 [facility] Comment on above: Performed By: #### C MP, TSH, T4 #### [facility] [address] [address] [address] Yvette Ohara Calcium [Mass/Vol] 9.5 mg/dL Normal 8.5-10.1 [facility] Comment on above: Performed By: #### C MP, TSH, T4 #### [facility] [address] [address] [address] Yvette Ohara Chloride [Moles/Vol] 106 mmol/L Normal 98-107 [facility] Comment on above: Performed By: #### C MP, TSH, T4 #### [facility] [address] [address] [address] Yvette Ohara CO2 [Moles/Vol] 28.0 mmol/L Normal 21.0-32.0 [facility] Comment on above: Performed By: #### C MP, TSH, T4 #### [facility] [address] [address] [address] Yvette Ohara Creatinine [Mass/Vol] 0.85 mg/dL Normal 0.55-1.02 [facility] Comment on above: Performed By: #### C MP, TSH, T4 #### [facility] [address] [address] [address] Yvette Ohara EGFR-AF BRUNEIAN >60 Normal >=60 [facility] Comment on above: Performed By: #### C MP, TSH, T4 #### [facility] [address] [address] [address] Yvette Ohara EGFR-NON AF BRUNEIAN >60 Normal >=60 [facility] Comment on above: Performed By: #### C MP, TSH, T4 #### [facility] [address] [address] [address] Yvette Ohara Globulin (S) [Mass/Vol] 3.3 g/dL Normal [facility] Comment on above: Performed By: #### C MP, TSH, T4 #### [facility] [address] [address] [address] Yvette Ohara Glucose [Mass/Vol] 98 mg/dL Normal 74-106 [facility] Comment on above: Performed By: #### C MP, TSH, T4 #### [facility] [address] [address] [address] Yvette Ohara Potassium [Moles/Vol] 3.9 mmol/L Normal 3.5-5.1 [facility] Comment on above: Performed By: #### C MP, TSH, T4 #### [facility] [address] [address] [address] Yvette Ohara Protein [Mass/Vol] 7.7 g/dL Normal 6.4-8.2 [facility] Comment on above: Performed By: #### C MP, TSH, T4 #### [facility] [address] [address] [address] Yvette Ohara Sodium [Moles/Vol] 143 mmol/L Normal 136-145 [facility] Comment on above: Performed By: #### C MP, TSH, T4 #### [facility] [address] [address] [address] Yvette Ohara Urea nitrogen [Mass/Vol] 13.0 mg/dL Normal 7.0-18.0 [facility] Comment on above: Performed By: #### C MP, TSH, T4 #### [facility] [address] [place] [address] Dr. Yvette Ohara Urea nitrogen/Creatinine [Mass ratio] 15.3 mg/mg Normal [facility] Comment on above: Performed By: #### C MP, TSH, T4 #### [facility] [address] [address] [address] Yvette Ohara T4on 12-15-2022 T4 [Mass/Vol] 5.90 ug/dL Normal 4.80-13.90 [facility] Comment on above: Performed By: #### C MP, TSH, T4 #### [facility] [address] [place] [address] Dr. Yvette Ohara TSHon 12-15-2022 TSH 1.277 uIU/mL Normal 0.358-3.74 0 [facility] Comment on above: Performed By: #### C MP, TSH, T4 #### [facility] [address] [place] [address] Dr. Yvette Ohara MR Brain WO and W contrast I Von 11-16-2022 IMPRESSION: Low-lying cerebellar tonsils with slight crowding at the foramen magnum. Age-appropriate unremarkable remaining brain without acute findings or abnormal enhancement. CSF flow study, as detailed. Business Support Coordinator: FANTA Transcribe Date/Time: Nov 16 2022 9:19A Dictated by : ALIYA CROCKER MD This examination was interpreted and the report reviewed and electronically signed by: ALIYA CROCKER MD on Nov 16 2022 9:23AM [facility] DIVISION OF RADIOLOGY * * *Final Report* * * DATE OF EXAM: Nov 16 2022 8:55AM [facility] 0295 - MRI BRAIN WO/W IVCON / [...] tissues are unremarkable. DIVISION OF RADIOLOGY Provider, [facility] - 11/16/2022 * * *Final Report* * * DATE OF EXAM: Nov 16 2022 8:55AM [facility] 0295 - MRI BRAIN WO/W IVCON / [...] abnormal enhancement. CSF flow study, as detailed. Business Support Coordinator: FANTA Transcribe Date/Time: Nov 16 2022 9:19A Dictated by : ALIYA CROCKER MD This examination was interpreted and the report reviewed and electronically signed by: ALIYA CROCKER MD on Nov 16 2022 9:23AM EST [facility] Radiology Study observation (narrative) [facility] MR Brain WO and W contrast I VOrdered By: [facility] Provider on 11-16-2022 [facility] CT Abdomen/Pelvis w/o Contra ston [...] by Mayo Jose on 10/31/2022 1542 Normal [facility] Specialist AMYLASEon 10-21-2022 Amylase [Catalytic activity/Vol] 32 U/L Normal 25-115 [facility] Comment on above: Performed By: #### C MP JESSICA #### [facility] [address] [place] [address] Dr. Yvette Ohara CBC AUTO DIFFon 10-21-2022 BASO # 0.0 103/ul Normal 0.0-0.1 [facility] Comment on above: Performed By: #### C BC #### [facility] [address] [place] [address] Dr. Yvette Ohara Basophils/100 WBC (Bld) 0.4 % Normal 0.2-2.0 [facility] Comment on above: Performed By: #### C BC #### [facility] [address] [place] [address] Dr. Yvette Ohara EO # 0.0 103/ul Normal 0.0-0.7 [facility] Comment on above: Performed By: #### C BC #### [facility] [address] [place] [address] Dr. Yvette Ohara Eosinophils/100 WBC (Bld) 0.4 % Critically low 0.9-7.0 [facility] Comment on above: Performed By: #### C BC #### [facility] [address] [place] [address] Dr. Yvette Ohara Erythrocyte distribution width (RBC) [Ratio] 12.1 % Normal 11.0-15.0 [facility] Comment on above: Performed By: #### C BC #### [facility] [address] [place] [address] Dr. Yvette Ohara Hematocrit (Bld) [Volume fraction] 50.0 % Critically high 36.0-48.0 [facility] Comment on above: Performed By: #### C BC #### [facility] [address] [place] [address] Dr. Yvette Ohara Hemoglobin (Bld) [Mass/Vol] 15.1 g/dL Normal 12.0-16.0 [facility] Comment on above: Performed By: #### C BC #### [facility] [address] [place] [address] Dr. Yvette Ohara IG # 0.02 10e3/ul Normal 0.00-0.03 [facility] Comment on above: Performed By: #### C BC #### [facility] [address] [place] [address] Dr. Yvette Ohara IG % 0.3 % Normal 0.0-0.5 [facility] Comment on above: Performed By: #### C BC #### [facility] [address] [place] [address] Dr. Yvette Ohara LYMPH # 2.1 103/ul Normal 1.2-3.8 [facility] Comment on above: Performed By: #### C BC #### [facility] [address] [place] [address] Dr. Yvette Ohara Lymphocytes/100 WBC (Bld) 28.7 % Normal 20.5-60.0 [facility] Comment on above: Performed By: #### C BC #### [facility] [address] [place] [address] Dr. Yvette Ohara MANUAL DIFF REQ NO Normal [facility] Comment on above: Performed By: #### C BC #### [facility] [address] [place] [address] Dr. Yvette Ohara MCH (RBC) [Entitic mass] 29.4 pg Normal 26.7-34.0 [facility] Comment on above: Performed By: #### C BC #### [facility] [address] [place] [address] Dr. Yvette Ohara MCHC (RBC) [Mass/Vol] 30.2 g/dL Normal 29.9-35.2 [facility] Comment on above: Performed By: #### C BC #### [facility] [address] [place] [address] Dr. Yvette Ohara MCV (RBC) [Entitic vol] 97.5 fL Normal 81.0-99.0 [facility] Comment on above: Performed By: #### C BC #### [facility] [address] [place] [address] Dr. Yvette Ohara MONO # 0.6 103/ul Normal 0.3-0.8 [facility] Comment on above: Performed By: #### C BC #### [facility] [address] [place] [address] Dr. Yvette Ohara Monocytes/100 WBC (Bld) 7.8 % Normal 1.7-12.0 [facility] Comment on above: Performed By: #### C BC #### [facility] [address] [place] [address] Dr. Yvette Ohara NEUT # 4.5 103/ul Normal 1.4-6.5 [facility] Comment on above: Performed By: #### C BC #### [facility] [address] [place] [address] Dr. Yvette Ohara Neutrophils/100 WBC (Bld) 62.4 % Normal 43.0-75.0 [facility] Comment on above: Performed By: #### C BC #### [facility] [address] [place] [address] Dr. Yvette Ohara Platelet mean volume (Bld) [Entitic vol] 10.3 fL Normal 9.5-13.5 [facility] Comment on above: Performed By: #### C BC #### [facility] [address] [place] [address] Dr. Yvette Ohara PLT 242 103/ul Normal 150-450 [facility] Comment on above: Performed By: #### C BC #### [facility] [address] [place] [address] Dr. Yvette Ohara RBC 5.13 106/ul Normal 4.20-5.40 [facility] Comment on above: Performed By: #### C BC #### [facility] [address] [place] [address] Dr. Yvette Ohara WBC 7.2 103/ul Normal 4.0-11.0 [facility] Comment on above: Performed By: #### C BC #### [facility] [address] [place] [address] Dr. Yvette Ohara PROF 14(COMP METB)on 023 Albumin [Mass/Vol] 4.1 g/dL Normal 3.4-5.0 [facility] Comment on above: Performed By: #### C JOSEY, JESSICA #### [facility] [address] [place] [address] Dr. Yvette Ohara Albumin/Globulin [Mass ratio] 1.3 {ratio} Normal [facility] Comment on above: Performed By: #### C MP, JESSICA #### [facility] [address] [place] [address] Dr. Yvette Ohara ALP [Catalytic activity/Vol] 117 U/L Critically high 46-116 [facility] Comment on above: Performed By: #### C MP, JESSICA #### [facility] [address] [place] [address] Dr. Yvette Ohara ALT [Catalytic activity/Vol] 58 U/L Normal 14-59 [facility] Comment on above: Performed By: #### C MP, JESSICA #### [facility] [address] [place] [address] Dr. Yvette Ohara Anion gap [Moles/Vol] 14.6 mmol/L Normal [facility] Comment on above: Performed By: #### C MP, JESSICA #### [facility] [address] [address] [address] Yvette Ohara AST [Catalytic activity/Vol] 27 U/L Normal 15-37 [facility] Comment on above: Performed By: #### C MP, JESSICA #### [facility] [address] [address] [address] Yvette Ohara Bilirubin [Mass/Vol] 1.4 mg/dL Critically high 0.2-1.0 [facility] Comment on above: Performed By: #### C MP, JESSICA #### [facility] [address] [address] [address] Yvette Ohara Calcium [Mass/Vol] 9.1 mg/dL Normal 8.5-10.1 [facility] Comment on above: Performed By: #### C MP, JESSICA #### [facility] [address] [place] [address] Dr. Yvette Ohara Chloride [Moles/Vol] 104 mmol/L Normal 98-107 [facility] Comment on above: Performed By: #### C MP, JESSICA #### [facility] [address] [place] [address] Dr. Yvette Ohara CO2 [Moles/Vol] 26.0 mmol/L Normal 21.0-32.0 [facility] Comment on above: Performed By: #### C MP, JESSICA #### [facility] [address] [place] [address] Dr. Yvette Ohara Creatinine [Mass/Vol] 0.92 mg/dL Normal 0.55-1.02 [facility] Comment on above: Performed By: #### C MP, JESSICA #### [facility] [address] [place] [address] Dr. Yvette Ohara EGFR-AF BRUNEIAN >60 Normal >=60 [facility] Comment on above: Performed By: #### C MP, JESSICA #### [facility] [address] [place] [address] Dr. Yvette Ohara EGFR-NON AF BRUNEIAN >60 Normal >=60 [facility] Comment on above: Performed By: #### C MP, JESSICA #### [facility] [address] [address] [address] Yvette Ohara Globulin (S) [Mass/Vol] 3.1 g/dL Normal T [facility] Comment on above: Performed By: #### C MP, JESSICA #### [facility] [address] [place] [address] Dr. Yvette Ohara Glucose [Mass/Vol] 94 mg/dL Normal 74-106 [facility] Comment on above: Performed By: #### C MP, JESSICA #### [facility] [address] [place] [address] Dr. Yvette Ohara Potassium [Moles/Vol] 3.6 mmol/L Normal 3.5-5.1 [facility] Comment on above: Performed By: #### C MP, JESSICA #### [facility] [address] [place] [address] Dr. Yvette Ohara Protein [Mass/Vol] 7.2 g/dL Normal 6.4-8.2 [facility] Comment on above: Performed By: #### C MP, JESSICA #### [facility] [address] [place] [address] Dr. Yvette Ohara Sodium [Moles/Vol] 141 mmol/L Normal 136-145 [facility] Comment on above: Performed By: #### C MP, JESSICA #### [facility] [address] [place] [address] Dr. Yvette Ohara Urea nitrogen [Mass/Vol] 13.0 mg/dL Normal 7.0-18.0 [facility] Comment on above: Performed By: #### C MP, JESSICA #### [facility] [address] [place] [address] Dr. Yvette Ohara Urea nitrogen/Creatinine [Mass ratio] 14.1 mg/mg Normal [facility] Comment on above: Performed By: #### C MP, JESSICA #### [facility] [address] [place] [address] Dr. 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 [...] MRI: No Colonoscopy: Yes diagnostic, Date in [facility]: 07/2015; results - negative RISK FACTORS [...] repeated afte (more content not included)... Normal [facility] T4 Free [facility] Free T4 [Mass/Vol] 0.8 ng/dL Low 0.9-1.7 [facility] Comment on above: Order Comment: Speci elizabeth Type: BLOOD SPECIMEN Ordering Facility: [facility] Address: [address] [place] [address] Performed By: #### 3 024-7 #### [facility] CLIA [id number] [place] TSH SerPl-aCncon 10-13-2022 TSH Qn 2.150 m[IU]/L Normal 0.510-4.30 0 [facility] Comment on above: Order Comment: Speci men Type: BLOOD SPECIMEN Ordering Facility: [facility] Address: [address] [place] [address] Result Comment: If t he patient is , TSH reference range varies by gestational period: First Trimester (weeks 9-12): 0.180-2.990 mIU/L Second Trimester: 0.110-3.980 mIU/L Third Trimester: 0.480-4.710 mIU/L Ángel Cervantes et al. A Practical Approach for the Verifications and Determination of Site- and Trimester-Specific Reference Intervals for Thyroid Function tests in . Thyroid, 2019:29:3:412-420. Prem E, et al. 2017 Guidelines of the [place] Thyroid Association for the Diagnosis and Management of Thyroid Disease during and the . Thyroid, 2017:27:3:315-389. Reference ranges were not locally established for this patient's age group. The normal values are based on the following source: Josh Vasquez V. Reference Ranges for Adults and Children: Pre-analytical Considerations. [facility] Performed By: #### 3 016-3 #### [facility] CLIA [id number] [address] [place] [address] [place] SARS-CoV-2 (COVID-19) RNA NA A+probe Ql (Resp)on 06-24-2022 SARS-CoV-2 (COVID-19) RNA JANET+probe Ql (Unsp spec) Negative [employer] Other MR Brain WO and W contrast [...] including diffusion and gradient echo images. 2-D pwnv-jx-lpnkdm MRV and postcontrast MRV of the brain. [...] enhancement indicating patency. DIVISION OF RADIOLOGY Provider, [facility] - [...] including diffusion and gradient echo images. 2-D foqa-xz-gdgphc MRV and postcontrast MRV of the brain. [...] No evidence of dural venous sinus thrombosis. Business Support Coordinator: [facility] Transcribe Date/Time: Dec 29 2021 12:34P Dictated by : MILTON WAGNER MD This examination was interpreted and the report reviewed and electronically signed by: MILTON WAGNER MD on Dec 29 2021 12:40PM [facility] MRA Head veins WO and W cont [...] including diffusion and gradient echo images. 2-D tamq-cf-pubkkg MRV and postcontrast MRV of the brain. [...] enhancement indicating patency. DIVISION OF RADIOLOGY Provider, [facility] - 12/29/2021 * * *Final Report* * * DATE OF EXAM: Dec 29 2021 12:13PM [facility] 0336 - MRV BRAIN WO/W IVCON / PROCEDURE REASON: multiple diagnoses * * * * Physician Interpretation * * * * EXAMINATION: MRI BRAIN WO/W IVCON, MRV BRAIN WO/W IVCON HISTORY: [place] headache. Headache after Covid infection. TECHNIQUE: Routine brain MRI protocol without and with contrast including diffusion and gradient echo images. 2-D tlyx-wq-qnnfbu MRV and postcontrast MRV of the brain. [...] No evidence of dural venous sinus thrombosis. Business Support Coordinator: [facility] Transcribe Date/Time: Dec 29 2021 12:34P Dictated by : MILTON WAGNER MD This examination was interpreted and the report reviewed and electronically signed by: MILTON WAGNER MD on Dec 29 2021 12:40PM EST [facility] No Panel Informationon 12-29 IMPRESSION: MRI BRAIN: No evidence of an acute intracranial process. Low-lying cerebellar tonsils. MRV BRAIN: No evidence of dural venous sinus thrombosis. Business Support Coordinator: [facility] Transcribe Date/Time: Dec 29 2021 12:34P Dictated by : MILTON WAGNER MD This examination was interpreted and the report reviewed and electronically signed by: MILTON WAGNER MD on Dec 29 2021 12:40PM [facility] DIVISION OF RADIOLOGY Radiology Study observation (narrative) [facility] No Panel InformationOrdered By: Ccf Provider on 12-29-2021 [facility] ANKLE RIGHT 3 [facility] 06-13-20 17 ANKLE RIGHT 3 [facility] [address] [place] [address] ==Patient Name: CHARIS ALLEN : 2000Sex: FAge: Race: WhiteMRN: [id number]. Location: EMERPatient Status: EVisit #: [id number] Date: 06/13/2017 5:40:00 PMCompleted Date: 06/13/2017 05:54 PMRequesting Provider: SREEKANTH JOHNSON Attending Provider: SREEKANTH JOHNSON Report Copy To: Signs & Symptoms: Pain ( specify Location)History: Patient history not availableComments: R/O FXExam: ANKLE RIGHT 3 VWSAccession #: [id number] =========ANKLE RIGHT 3 VWS 06/13/2017 5:54 PM [...] Electronically signed by:Faye Ramires M.D.. Transcribed by: [email or web address], User Resident: Electronically Signed by: FAYE RAMIRES @ 06/13/2017 06:44 PM Normal [facility] Comment on above: Order Comment: R/O F X Vital Signs Date Time Vital Sign Value Performing Clinician Facility 06-13-2025 10:39-0400 Body height 172.7 cm Anil Iniguezfundfindrdenisse [employer] Work Phone: [facility] [employer] 06-13-2025 10:39-0400 Body mass index (BMI) [Ratio] 25.7 kg/m2 Anil Geethafundfindrdenisse [employer] Work Phone: [facility] [employer] 06-13-2025 10:39-0400 Body temperature 97.81 [degF] Anil Iniguezfundfindrdenisse [employer] Work Phone: [facility] [employer] 06-13-2025 10:39-0400 Body weight 76.66 kg Anil Iniguezfundfindrdenisse [employer] Phone: [facility] [employer] 06-13-2025 10:39-0400 Diastolic blood pressure 62 mm[Hg] Anil Iniguezfundfindrdenisse DO Work Phone: [facility] 06-13-2025 10:39-0400 Heart rate 98 /min Anil Thapa DO Work Phone: [facility] 06-13-2025 10:39-0400 SaO2% (BldA) [Mass fraction] 99 % Anil Thapa DO Work Phone: [facility] 06-13-2025 10:39-0400 Systolic blood pressure 108 mm[Hg] Anil Thapa DO Work Phone: [facility] 06-10-2025 08:58-0400 Body height 172.7 cm Jona Vann MD Work Phone: [facility] 06-10-2025 08:58-0400 Body mass index (BMI) [Ratio] 25.39 kg/m2 Jona Vann MD Work Phone: [facility] 06-10-2025 08:58-0400 Body weight 75.75 kg Jona Vann MD Work Phone: [facility] 06-10-2025 08:58-0400 Diastolic blood pressure 74 mm[Hg] Jona Vann MD Work Phone: [facility] 06-10-2025 08:58-0400 Systolic blood pressure 120 mm[Hg] Jona Vann MD Work Phone: [facility] 02-18-2025 21:50-0400 Diastolic blood pressure 78 mm[Hg] DianeDia Thapa DO Work Phone: [facility] 02-18-2025 21:50-0400 Heart rate 84 /min Katie Thapa DO Work Phone: [facility] 02-18-2025 21:50-0400 Respiratory rate 20 /min Katie Thapa DO Work Phone: [facility] 02-18-2025 21:50-0400 SaO2% (BldA) [Mass fraction] 98 % Katie Thapa DO Work Phone: [facility] 02-18-2025 21:50-0400 Systolic blood pressure 120 mm[Hg] Katie Thapa DO Work Phone: [facility] 02-18-2025 19:45-0400 Body temperature 98.4 [degF] Katie Thapa DO Work Phone: [facility] 02-18-2025 15:20-0400 Body height 167.64 cm Katie Thapa DO Work Phone: [facility] 02-18-2025 15:20-0400 Body weight 70.8 kg Katie Thapa DO Work Phone: [facility] 01-11-2025 19:22-0400 Heart rate 72 /min Milton Garcia MD Work Phone: [employer] 01-11-2025 19:22-0400 Respiratory rate 18 /min Milton Garcia MD Work Phone: [employer] 01-11-2025 19:22-0400 SaO2% (BldA) [Mass fraction] 100 % Milton Garcia MD Work Phone: [employer] 01-11-2025 19:20-0400 Diastolic blood pressure 73 mm[Hg] Milton Garcia MD Work Phone: [employer] 01-11-2025 19:20-0400 Systolic blood pressure 108 mm[Hg] Milton Garcia MD Work Phone: [employer] 01-11-2025 18:30-0400 Body height 170.2 cm Milton Garcia MD Work Phone: [employer] 01-11-2025 18:30-0400 Body mass index (BMI) [Ratio] 24.53 kg/m2 Milton Garcia MD Work Phone: [employer] 01-11-2025 18:30-0400 Body temperature 98.01 [degF] Milton Garcia MD Work Phone: [employer] 01-11-2025 18:30-0400 Body weight 71.03 kg Milton Garcia MD Work Phone: [employer] 11-30-2024 23:39-0500 Body height 170.2 cm Rohit Rob MD Work Phone: [employer] 11-30-2024 23:39-0500 Body mass index (BMI) [Ratio] 23.63 kg/m2 Rohit Rob MD Work Phone: [employer] 11-30-2024 23:39-0500 Body temperature 97.59 [degF] Rohit Rob MD Work Phone: [employer] 11-30-2024 23:39-0500 Body weight 68.45 kg Rohit Rob MD Work Phone: [employer] 11-30-2024 23:39-0500 Diastolic blood pressure 75 mm[Hg] Rohit Rob MD Work Phone: [employer] 11-30-2024 23:39-0500 Heart rate 97 /min Rohit Rob MD Work Phone: [employer] 11-30-2024 23:39-0500 Respiratory rate 16 /min Rohit Rob MD Work Phone: [employer] 11-30-2024 23:39-0500 SaO2% (BldA) [Mass fraction] 100 % Rohit Rob MD Work Phone: [employer] 11-30-2024 23:39-0500 Systolic blood pressure 115 mm[Hg] Rohit Rob MD Work Phone: [employer] 11-16-2024 02:37-0500 Diastolic blood pressure 71 mm[Hg] Akiko Acosta MD Work Phone: [employer] 11-16-2024 02:37-0500 Heart rate 70 /min Akiko Acosta MD Work Phone: [employer] 11-16-2024 02:37-0500 Respiratory rate 13 /min Akiko Acosta MD Work Phone: [employer] 11-16-2024 02:37-0500 SaO2% (BldA) [Mass fraction] 100 % Akiko Acosta MD Work Phone: [employer] 11-16-2024 02:37-0500 Systolic blood pressure 106 mm[Hg] Akiko Acosta MD Work Phone: [employer] 11-16-2024 00:53-0500 Body height 167.6 cm Akiko Acosta MD Work Phone: [employer] 11-16-2024 00:53-0500 Body mass index (BMI) [Ratio] 24.28 kg/m2 Akiko Acosta MD Work Phone: [employer] 11-16-2024 00:53-0500 Body weight 68.22 kg Akiko Acosta MD Work Phone: [employer] 11-16-2024 00:51-0500 Body temperature 97.59 [degF] Akiko Acosta MD Work Phone: [facility] [employer] 11-04-2024 13:35-0500 Body height 170.2 cm Osbaldo-Catie Vu DO Work Phone: [facility] [employer] 11-04-2024 13:35-0500 Body mass index (BMI) [Ratio] 23.56 kg/m2 Osbaldo-Catie Vu DO Work Phone: [email or web address] 11-04-2024 13:35-0500 Body temperature 98.1 [degF] Osbaldo-Catie Vu DO Work Phone: [facility] 11-04-2024 13:35-0500 Body weight 68.22 kg Osbaldo-Catie Vu DO Work Phone: [facility] [employer] [facility] 10-23-2024 15:48-0500 Body mass index (BMI) [Ratio] 24.28 kg/m2 Jona Vann MD Work Phone: [facility] 10-23-2024 15:48-0500 Body weight 70.31 kg Jona Vann MD Work Phone: [facility] 10-23-2024 15:48-0500 Diastolic blood pressure 64 mm[Hg] Jona Vann MD Work Phone: [facility] 10-23-2024 15:48-0500 Systolic blood pressure 100 mm[Hg] Jona Vann MD Work Phone: [facility] 10-21-2024 13:50-0500 Body height 170.2 cm Anil Thapa DO Work Phone: [facility] 10-21-2024 13:50-0500 Body mass index (BMI) [Ratio] 23.65 kg/m2 Anil Thapa DO Work Phone: [facility] 10-21-2024 13:50-0500 Body temperature 97.11 [degF] Anil Thapa DO Work Phone: [facility] 10-21-2024 13:50-0500 Body weight 68.49 kg Anil Thapa DO Work Phone: [facility] 10-21-2024 13:50-0500 Diastolic blood pressure 72 mm[Hg] Anil Thapa DO Work Phone: [facility] 10-21-2024 13:50-0500 Heart rate 75 /min Anil Thapa DO Work Phone: [facility] 10-21-2024 13:50-0500 SaO2% (BldA) [Mass fraction] 99 % Anil Thapa DO Work Phone: [facility] 10-21-2024 13:50-0500 Systolic blood pressure 108 mm[Hg] Anil Thapa DO Work Phone: [facility] 09-11-2024 10:34-0500 Body height 167.6 cm [facility] Dick DO Work Phone: [facility] 09-11-2024 10:34-0500 Body mass index (BMI) [Ratio] 23.38 kg/m2 OsbaldoDimpleu Vu DO Work Phone: [facility] [employer] [facility] 09-11-2024 10:34-0500 Body temperature 97.59 [degF] OsbaldoDimpleu Vu DO Work Phone: [facility] [employer] [facility] 09-11-2024 10:34-0500 Body weight 65.68 kg Osbaldo-Catie Vu DO Work Phone: [facility] [employer] [facility] 09-10-2024 16:03-0500 Body height 167.6 cm Mich Verde MD Work Phone: [facility] 09-10-2024 16:03-0500 Body mass index (BMI) [Ratio] 24.37 kg/m2 Mich Verde MD Work Phone: [facility] [employer] [facility] 09-10-2024 16:03-0500 Body weight 68.49 kg Mich Verde MD Work Phone: [facility] 09-10-2024 16:03-0500 Respiratory rate 18 /min Mich Verde MD Work Phone: [facility] 08-20-2024 14:49-0500 Body height 167.6 cm [facility] 08-20-2024 14:49-0500 Body mass index (BMI) [Ratio] 22.11 kg/m2 [facility] 08-20-2024 14:49-0500 Body weight 62.14 kg [facility] 08-13-2024 14:14-0500 Body mass index (BMI) [Ratio] 23.81 kg/m2 Jona Vann MD Work Phone: [facility] 08-13-2024 14:14-0500 Body weight 68.95 kg Jona Vann MD Work Phone: [facility] 08-13-2024 14:14-0500 Diastolic blood pressure 58 mm[Hg] Jona Vann MD Work Phone: [facility] 08-13-2024 14:14-0500 Systolic blood pressure 100 mm[Hg] Jona Vann MD Work Phone: [facility] 08-07-2024 10:10-0400 Body height 167.6 cm Osbaldo-Catie Vu DO Work Phone: [facility] [employer] [facility] 08-07-2024 10:10-0400 Body mass index (BMI) [Ratio] 24.82 kg/m2 Osbaldo-Catie Vu DO Work Phone: [facility] 08-07-2024 10:10-0400 Body temperature 98.2 [degF] Osbaldo-Catie Vu DO Work Phone: [facility] 08-07-2024 10:10-0400 Body weight 69.76 kg Osbaldo-Catie Vu DO Work Phone: [facility] 07-17-2024 14:48-0400 Body height 170.2 cm Harmony German PA Work Phone: [facility] 07-17-2024 14:48-0400 Body mass index (BMI) [Ratio] 24.18 kg/m2 Harmony German PA Work Phone: [facility] 07-17-2024 14:48-0400 Body temperature 97.7 [degF] Harmony German PA Work Phone: [facility] 07-17-2024 14:48-0400 Body weight 70.03 kg Harmony German PA Work Phone: [facility] 07-17-2024 14:48-0400 Diastolic blood pressure 68 mm[Hg] Harmony German PA Work Phone: [facility] 07-17-2024 14:48-0400 Heart rate 70 /min Harmony German PA Work Phone: [facility] 07-17-2024 14:48-0400 SaO2% (BldA) [Mass fraction] 99 % Harmony German PA Work Phone: [facility] 07-17-2024 14:48-0400 Systolic blood pressure 116 mm[Hg] Harmony MCDANIEL Work Phone: [facility] 07-15-2024 15:38-0400 Body height 170.2 cm Mich Verde MD Work Phone: [facility] 07-15-2024 15:38-0400 Body mass index (BMI) [Ratio] 23.65 kg/m2 Mich Verde MD Work Phone: [facility] 07-15-2024 15:38-0400 Body weight 68.49 kg Mich Verde MD Work Phone: [facility] 07-03-2024 10:56-0400 Body height 170.2 cm Tiesha Rai PA-C Work Phone: [facility] 07-03-2024 10:56-0400 Body mass index (BMI) [Ratio] 23.65 kg/m2 Tiesha Rai PA-C Work Phone: [facility] [employer] [facility] 07-03-2024 10:56-0400 Body weight 68.49 kg Tiesha Rai PA-C Work Phone: [facility] 06-28-2024 02:48-0400 Diastolic blood pressure 58 mm[Hg] DO Katie Thapa Work Phone: [facility] 06-28-2024 02:48-0400 Heart rate 85 /min DO Katie Thapa Work Phone: [facility] 06-28-2024 02:48-0400 Respiratory rate 18 /min DO Katie Thapa Work Phone: [facility] 06-28-2024 02:48-0400 SaO2% (BldA) [Mass fraction] 100 % DO Katie Thapa Work Phone: [facility] 06-28-2024 02:48-0400 Systolic blood pressure 98 mm[Hg] DO Katie Thapa Work Phone: [facility] 06-27-2024 22:17-0400 Body height 170.18 cm DO Katie Thapa Work Phone: [facility] 06-27-2024 22:17-0400 Body temperature 97.9 [degF] DO Katie Thapa Work Phone: [facility] 06-27-2024 22:17-0400 Body weight 69.75 kg DO Katie Thapa Work Phone: [facility] 05-21-2024 13:37-0400 Body height 170.2 cm [facility] [employer] [facility] 05-21-2024 13:37-0400 Body mass index (BMI) [Ratio] 24.31 kg/m2 [facility] 05-21-2024 13:37-0400 Body temperature 98.2 [degF] [facility] 05-21-2024 13:37-0400 Body weight 70.4 kg [facility] 05-21-2024 13:37-0400 Diastolic blood pressure 67 mm[Hg] [facility] [employer] [facility] 05-21-2024 13:37-0400 Heart rate 83 /min [facility] 05-21-2024 13:37-0400 Respiratory rate 18 /min [facility] 05-21-2024 13:37-0400 SaO2% (BldA) [Mass fraction] 100 % [facility] 05-21-2024 13:37-0400 Systolic blood pressure 108 mm[Hg] [facility] [employer] [facility] 03-18-2024 14:24-0400 Body height 170.2 cm Mich Verde MD Work Phone: [facility] [employer] [facility] 03-18-2024 14:24-0400 Body mass index (BMI) [Ratio] 24.12 kg/m2 Mich Verde MD Work Phone: [facility] [employer] [facility] 03-18-2024 14:24-0400 Body temperature 98.4 [degF] Mich [facility]de MD [facility] 03-18-2024 14:24-0400 Body weight 69.85 kg Mich Verde MD Work [facility] 03-06-2024 16:25-0400 Body height 167.6 cm Tiesha [place] PA-C Work Phone: [facility] 03-06-2024 16:25-0400 Body mass index (BMI) [Ratio] 24.86 kg/m2 Tiesha [place] PA-C Work Phone[facility] 03-06-2024 16:25-0400 Body temperature 98.6 [degF] Tiesha [place] PA-C Work Phone[facility] 03-06-2024 16:25-0400 Body weight 69.85 kg Tiesha Fredi PA-C Work Phone: [facility] 12-19-2023 12:47-0400 Body height 167.6 cm Tiesha [place] PA-C Work Phone: [facility] 12-19-2023 12:47-0400 Body mass index (BMI) [Ratio] 26.21 kg/m2 Tiesha [place] PA-C Work Phone: [facility] 12-19-2023 12:47-0400 Body temperature 98.4 [degF] Tiesha Fredi PA-C [facility] 12-19-2023 12:47-0400 Body weight 73.66 kg Tiesha [place] PA-C Work Phone: [facility] 11-08-2023 07:45-0500 Body height 167.64 cm Pérez Barcenas Other [employer] Other 11-08-2023 07:45-0500 Body mass index (BMI) [Ratio] 28.57 kg/m2 Pérez Barcenas Other [employer] Other 11-08-2023 07:45-0500 Body weight 80.29 kg Pérez Barcenas Other [employer] Other 11-08-2023 07:45-0500 Diastolic blood pressure 65 mm[Hg] Pérez Barcenas Other [employer] Other 11-08-2023 07:45-0500 Respiratory rate 18 /min Pérez [employer] Other [employer] Other 11-08-2023 07:45-0500 SaO2% (BldA) [Mass fraction] 98 % Pérez Barcenas Other [employer] Other 11-08-2023 07:45-0500 Systolic blood pressure 102 mm[Hg] Pérez Barcenas Other [employer] Other 08-17-2023 21:29-0500 Body temperature 98.1 [degF] DO Katie Castillo [employer] Work Phone: [facility] 08-17-2023 21:29-0500 Diastolic blood pressure 72 mm[Hg] DO Katie Thapa Work Phone: [facility] 08-17-2023 21:29-0500 Heart rate 83 /min DO Katie Thapa Work Phone: [facility] 08-17-2023 21:29-0500 Respiratory rate 16 /min DO Katie Thapa Work Phone: [facility] 08-17-2023 21:29-0500 SaO2% (BldA) [Mass fraction] 98 % DO Katie Thapa Work Phone: [facility] 08-17-2023 21:29-0500 Systolic blood pressure 110 mm[Hg] DO Katie Thapa Work Phone: [facility] 08-17-2023 18:23-0500 Body height 167.64 cm DO Katie Thapa Work Phone: [facility] 08-17-2023 18:23-0500 Body mass index (BMI) [Ratio] 29 kg/m2 DO Katie Thapa Work Phone: [facility] 08-17-2023 18:23-0500 Body weight 81.64 kg DO Katie Thapa Work Phone: [facility] 08-17-2023 18:18-0500 Inhaled oxygen flow rate 10 L/min DO Katie Thapa Work Phone: [phone] [place] [address] 08-03-2023 18:45-0400 Diastolic blood pressure 75 mm[Hg] DO Katie Thapa Work Phone: [phone](157)[phone] [place] [address] 08-03-2023 18:45-0400 Heart rate 98 /min DO Katie Thapa Work Phone: [facility] 08-03-2023 18:45-0400 Respiratory rate 16 /min DO Katie Thapa Work Phone: [facility] 08-03-2023 18:45-0400 SaO2% (BldA) [Mass fraction] 98 % DO Katie Thapa Work Phone: [facility] 08-03-2023 18:45-0400 Systolic blood pressure 108 mm[Hg] DO Katie Thapa Work Phone: [facility] 08-03-2023 17:28-0400 Inhaled oxygen flow rate 6 L/min DO Katie Thapa Work Phone: [facility] 08-03-2023 17:13-0400 Body temperature 97 [degF] DO Katie Thapa Work Phone: [facility] 08-03-2023 16:26-0400 Body height 167.64 cm DO Katie Thapa Work Phone: [facility] [facility] 08-03-2023 16:26-0400 Body mass index (BMI) [Ratio] 29 kg/m2 DO Katie Thapa Work Phone: [facility] 08-03-2023 16:26-0400 Body weight 81.64 kg DO Katie Thapa Work Phone: [facility] 06-09-2023 15:15-0400 Body height 170.18 cm Arti Brooklyn Other [employer] Other 06-09-2023 15:15-0400 Body mass index (BMI) [Ratio] 29.97 kg/m2 Arti [place] Other [employer] Other 06-09-2023 15:15-0400 Body temperature 98.7 [degF] Arti [place] Other [employer] Other 06-09-2023 15:15-0400 Body weight 86.82 kg Arti Laumond Other [employer] Other 06-09-2023 15:15-0400 Diastolic blood pressure 72 mm[Hg] Arti [place] Other [employer] Other 06-09-2023 15:15-0400 Respiratory rate 18 /min Arti [place] Other [employer] Other 06-09-2023 15:15-0400 SaO2% (BldA) [Mass fraction] 99 % Arti [place] Other [employer] Other 06-09-2023 15:15-0400 Systolic blood pressure 117 mm[Hg] Arti Barahona Other [employer] Other 06-01-2023 09:06-0400 Body height 167.6 cm Mara Alcaraz MD Work Phone: [facility] 06-01-2023 09:06-0400 Body weight 88.81 kg Mara Alcaraz MD Work Phone: [facility] 04-04-2023 15:33-0400 Body weight 86.18 kg Kerry Cristobal COONEY Work Phone: [facility] 11-14-2022 11:32-0500 Body height 167.6 cm Sreekanth Sood MD Work Phone: [facility] 11-14-2022 11:32-0500 Body weight 90.72 kg Sreekanth Sood MD Work Phone: [facility] 11-14-2022 11:32-0500 Diastolic blood pressure 67 mm[Hg] Sreekanth Sood MD Work Phone: [facility] 11-14-2022 11:32-0500 Heart rate 85 /min Sreekanth Sood MD Work Phone: [facility] 11-14-2022 11:32-0500 SaO2% (BldA) [Mass fraction] 100 % Sreekanth Sood MD Work Phone: [facility] 11-14-2022 11:32-0500 Systolic blood pressure 112 mm[Hg] Sreekanth Sood MD Work Phone: [facility] 08-04-2022 13:03-0400 Heart rate 92 /min Lul Mcbride MD Work Phone: [facility] 08-04-2022 13:03-0400 SaO2% (BldA) [Mass fraction] 100 % Lul Mcbride MD Work Phone: [facility] 06-24-2022 18:35-0400 Body height 170.18 cm Zully Mendoza Other [employer] Other 06-24-2022 18:35-0400 Body mass index (BMI) [Ratio] 29.75 kg/m2 Zully Mendoza Other [employer] Other 06-24-2022 18:35-0400 Body temperature 99.3 [degF] Zully Mendoza Other [employer] Other 06-24-2022 18:35-0400 Body weight 86.18 kg Zully Mendoza Other [employer] Other 06-24-2022 18:35-0400 Respiratory rate 18 /min Zully Mendoza Other [employer] Other 06-24-2022 18:35-0400 SaO2% (BldA) [Mass fraction] 97 % Zully Mendoza Other [employer] Other 12-30-2021 08:11-0400 Diastolic blood pressure 71 mm[Hg] Sreekanth Samples Work Phone: [facility] 12-30-2021 08:11-0400 Heart rate 76 /min Sreekanth Samples Work Phone: [facility] 12-30-2021 08:11-0400 Systolic blood pressure 117 mm[Hg] Sreekanth Samples Work Phone: [facility] NEGATED: Highlighted row BMI (Body Mass Index) Margarita [facility] NEGATED: Highlighted row Body Temperature Margarita [facility] NEGATED: Highlighted row Body weight Margarita [facility] NEGATED: Highlighted row BP Diastolic Margarita [facility] NEGATED: Highlighted row BP Systolic Margarita [facility] NEGATED: Highlighted row Height Margarita [facility] NEGATED: Highlighted row Pulse (Heart Rate) Margarita [facility] NEGATED: Highlighted row Pulse Oximetry Margarita [facility] NEGATED: Highlighted row Respiratory Rate Margarita [facility] Encounters Encounter Date Encounter Type Care Provider Facility Start: 07-18-2025 End: 07-18-2025 flow sheet [facility] [employer] [facility] Nurse [facility] Julius APONTE Comment on above: GA: [id number] Start: 07-17-2025 End: 07-17-2025 Clinisync Result Encounter Jona Vann MD Work Phone: [facility] External Department Unsolicited Start: 07-17-2025 End: 07-17-2025 Clinisync Result Encounter Jona Vann MD Work Phone: [facility] External Department Unsolicited Start: 07-05-2025 End: 07-05-2025 Clinisync Result Encounter Generic External Data Provider [facility] External Department Unsolicited Start: 07-05-2025 End: 07-05-2025 Clinisync Result Encounter Generic External Data Provider [facility] External Department Unsolicited Start: 07-04-2025 End: 07-04-2025 Telephone encounter Doris Hernandez [facility] Neuro[facility] Start: 07-03-2025 End: 07-03-2025 Clinisync Result Encounter Generic External Data Provider [facility] External Department Unsolicited Start: 07-03-2025 End: 07-03-2025 Clinisync Result Encounter Generic External Data Provider [facility] External Department Unsolicited Start: 07-03-2025 End: 07-03-2025 Telephone encounter Otilia Oviedo [facility] Neurology, A Department of [facility] Start: 06-13-2025 End: 06-13-2025 Bamboo flowsheet Anil Thapa DO Work Phone: [facility] 230 Start: 06-13-2025 End: 06-13-2025 Bamboo flowsheet Anil Thapa DO Work Phone: [facility] 230 Start: 06-13-2025 End: 06-13-2025 Office outpatient visit 15 minutes Anil Thapa DO Work Phone: [facility] 230 Comment on above: Major depressive dis order, single episode, mild ; Acne vulgaris; Attention deficit hyperactivity disorder (ADHD), combined type Start: 06-13-2025 End: 06-13-2025 ambulatory ANIL THAPA Not Available Start: 06-11-2025 End: 06-13-2025 Orders Only Jona Vann MD Work Phone: [facility]ONTE Comment on above: Urinary tract infect ion without hematuria, site unspecified (Primary Dx) Start: 06-10-2025 End: 06-16-2025 Orders Only Jona Vann MD Work Phone: [facility] External Department Unsolicited Start: 06-10-2025 End: 06-10-2025 Office outpatient visit 10 minutes Jona Vann MD Work Phone: [facility] APONTE Comment on above: Chiari malformation type [...] 04-17-2025 ambulatory Katie Thapa DO Work Phone: [facility] Work Phone: Start: 04-17-2025 End: 04-17-2025 Departed Referred Chris White MD -LAB [facility] Start: 03-30-2025 End: 03-30-2025 Refill Tala Vazquez APRN-NIKI Work Phone: [facility] Comment on above: Miscarriage Start: 03-19-2025 End: 03-19-2025 Refill Mary Ann Levin MD Work Phone: Dermatology Comment on above: Refill Request Start: 02-27-2025 ambulatory MICH VERDE [facility] Start: 02-26-2025 End: 02-27-2025 ambulatory ANIL THAPA [facility] Start: 02-22-2025 End: 02-22-2025 ambulatory [facility] Start: 02-22-2025 End: 02-22-2025 Subsequent hospital visit by physician Anil Thapa DO Work Phone: [facility] Start: 02-18-2025 End: 02-18-2025 Emergency department patient visit Katie Thapa DO Work Phone: [facility]Emer[facility] Work Phone: Start: 02-15-2025 End: 02-17-2025 Refill Anil Thapa DO Work Phone: [facility] 230 Comment on above: Attention deficit hy peractivity disorder (ADHD), combined type (CMS/HCC) Start: 01-15-2025 End: 01-15-2025 Refill Gm Gomez LPN Work Phone: [facility] 230 Comment on above: Attention deficit hy peractivity disorder (ADHD), combined type (CMS/HCC) Start: 01-11-2025 End: 01-11-2025 Emergency department patient visit Milton Garcia MD Work Phone: [facility] Emergency Department Comment on above: Vertigo (Primary Dx) Start: 01-07-2025 End: 01-07-2025 Refill Mary Ann Levin MD Work Phone: Dermatology Comment on above: Refill Request Start: 01-07-2025 End: 01-08-2025 Refill Mary Ann Levin MD Work Phone: Dermatology Comment on above: Refill Request Start: 12-13-2024 End: 12-13-2024 Emergency department patient visit ANIL THAPA [facility] Start: 11-30-2024 End: 12-01-2024 Emergency department patient visit Rohit Rob MD Work Phone: [facility] Emergency Department Comment on above: Threatened miscarria ge in early (Primary Dx) Start: 11-29-2024 End: 11-29-2024 Clinisync Result Encounter Generic External Data Provider [facility] External Department Unsolicited Start: 11-29-2024 End: 11-29-2024 Clinisync Result Encounter Generic External Data Provider [facility] External Department Unsolicited Start: 11-22-2024 End: 11-22-2024 Telephone encounter Anil Thapa DO Work Phone: [facility] 230 Comment on above: Med Refill Start: 11-16-2024 End: 11-16-2024 Emergency department patient visit Akiko Acosta MD Work Phone: [facility] Emergency Department Comment on above: Acute gastroenteriti s (Primary Dx) Start: 11-04-2024 End: 11-04-2024 Patient encounter procedure [facility] DO Work Phone: [facility] - ENT Comment on above: Lesion of tongue (Pr imary Dx) Start: 11-04-2024 End: 11-04-2024 ambulatory [facility] Start: 10-28-2024 End: 10-29-2024 Orders Only Jona Vann MD Work Phone: [facility] OB Comment on above: Acute vaginitis (Leslie sage Dx) Start: 10-23-2024 End: 10-23-2024 Office outpatient visit 15 minutes Jona Vann MD Work Phone: [facility] OB Comment on above: Acute vaginitis (Leslie sage Dx); Vaginal burning; Vaginal itching; Vaginal discharge; Vaginal odor; Amenorrhea Start: 10-23-2024 End: 10-23-2024 ambulatory JONA VANN Not Available Start: 10-21-2024 End: 10-21-2024 Bamboo flowsheet Anil Thapa DO Work Phone: [facility] 230 Start: 10-21-2024 End: 10-21-2024 Bamboo flowsheet Anil Thapa DO Work Phone: [facility] 230 Start: 10-21-2024 End: 10-21-2024 ambulatory ANIL Arenas ALANIS Not Available Start: 10-21-2024 End: 10-21-2024 Office outpatient visit 15 minutes Anil Thapa DO Work Phone: [facility] 230 Comment on above: Attention deficit hy peractivity disorder (ADHD), combined type (CMS/HCC) Start: 09-18-2024 End: 09-18-2024 Refill Gm Gomez LPN Work Phone: [facility] 230 Comment on above: Attention deficit hy peractivity disorder (ADHD), combined type (CMS/HCC) Start: 09-12-2024 End: 09-12-2024 Refill Mary Ann Levin MD Work Phone: Dermatology Comment on above: Refill Request Start: 09-11-2024 End: 09-11-[address] [facility] Start: 09-11-2024 End: 09-11-2024 Patient encounter procedure [facility] DO Work Phone: [facility] - ENT Comment on above: Lesion of tongue (Pr imary Dx) Start: 09-10-2024 End: 09-10-2024 Office outpatient visit 15 minutes Mich Verde MD Work Phone: [facility] Ear[facility] Th[facility]at Comment on above: Postop check (Primar y Dx) Start: 09-10-2024 Encounter for examination of ears and hearing without abnormal findings MICH VERDE [facility] Start: 09-10-2024 End: 09-10-2024 Clinical Support Ppbp Ent Audio 2 [facility] Comment on above: Hearing exam without abnormal findings (Primary Dx) Start: 09-10-2024 End: 09-10-2024 Patient encounter status Ppbp 2 [facility] Work Phone: Start: 09-04-2024 [...] Evaluation and management of inpatient CADEN THOMAS [facility] Start: 08-27-2024 End: 08-27-2024 [facility] Start: 08-20-2024 End: 08-20-2024 Evaluation and management of inpatient ANIL THAPA [facility] Start: 08-20-2024 End: 08-20-2024 Admission to [facility] Phone Call Provider 3 [facility] Start: 08-17-2024 End: 08-17-2024 Orders Only Jona Vann MD Work Phone: [facility] OB Comment on above: Vaginitis due to Tri chomonas (Primary Dx) Start: 08-16-2024 End: 08-16-2024 Refill Harmony MCDANIEL Work Phone: [facility] 230 Comment on above: Attention deficit hy peractivity disorder (ADHD), combined type (CMS/HCC) Start: 08-13-2024 End: 08-13-2024 Patient encounter status Jona Vann MD Work Phone: [facility] Start: 08-13-2024 End: 08-13-2024 Periodic preventive med est patient 18-39 yrs Jona Vann MD Work Phone: [facility] OB Comment on above: Screening for malign ant neoplasm of cervix; Encounter for gynecological examination without abnormal finding; Anxiety, generalized (CMS/HCC); Vaginal discharge Start: 08-13-2024 End: 08-13-2024 ambulatory JONA VANN Not Available Start: 08-07-2024 End: 08-07-2024 Telephone encounter [facility] DO Work Phone: [facility] Start: 08-07-2024 End: 08-07-2024 ambulatory [facility] Start: 08-07-2024 End: 08-07-2024 Patient encounter procedure [facility] DO Work Phone: [facility] Comment on above: Chronic throat pain (Primary Dx); Odynophagia; Tongue lesion; Post-nasal drip; Allergic rhinitis, unspecified seasonality, unspecified trigger Start: 07-25-2024 End: 07-25-2024 ambulatory ÁNGELA DELGADO Facility:[facility] Start: 07-25-2024 End: 07-25-2024 Patient encounter procedure Ángela Delgado DPM Work Phone: Podiatry Comment on above: Onychomycosis (Prima ry Dx); Tinea pedis, unspecified laterality Start: 07-17-2024 End: 07-17-2024 ambulatory HARMONY GERMAN Not Available Start: 07-17-2024 End: 07-17-2024 Office outpatient visit 15 minutes Harmony German PA Work Phone: [facility] 230 Comment on above: Attention deficit hy peractivity disorder (ADHD), combined type ([facility]) Start: 07-17-2024 End: 07-17-2024 Telephone encounter Doris Hernandez [facility] Start: 07-15-2024 End: 07-15-2024 Postop follow up visit related to original px Mich Verde MD Work Phone: [facility] Comment on above: Postop check (Primar y Dx) Start: 07-15-2024 End: 07-15-2024 ambulatory MICH VERDE [facility] Start: 07-10-2024 End: 07-10-[address] [facility] Start: 07-03-2024 End: 07-03-2024 Office outpatient visit 10 minutes Tiesha Rai PA-C Work Phone: [facility] Comment on above: Chronic throat pain (Primary Dx); Odynophagia; Adenoid hypertrophy Start: 07-03-2024 End: 07-03-2024 ambulatory TIESHA RAI [facility] Start: 07-01-2024 End: 07-01-2024 Clinisync Result Encounter Generic External Data Provider [facility] External Department Unsolicited Start: 07-01-2024 End: 07-01-2024 Clinisync Result Encounter Generic External Data Provider [facility] External Department Unsolicited Start: 06-27-2024 End: 06-28-2024 Emergency department patient visit DO Katie Thapa Work Phone: [facility] Work Phone: Start: 06-24-2024 End: 06-24-2024 Clinisync Result Encounter Generic External Data Provider [facility] External Department Unsolicited Start: 06-24-2024 End: 06-24-2024 Clinisync Result Encounter Generic External Data Provider [facility] External Department Unsolicited Start: 06-17-2024 End: 06-17-2024 Refill Gm Gomez GAYE Work Phone: [facility] 230 Comment on above: Attention deficit hy peractivity disorder (ADHD), combined type ([facility]) Start: 06-04-2024 End: 06-04-2024 Evaluation and management of inpatient EMILIA Cas [facility] Start: 06-04-2024 End: 06-04-2024 Evaluation and management of inpatient MICH Reese [facility] Start: 05-21-2024 End: 05-21-2024 ambulatory MICH Reese [facility] Start: 05-21-2024 End: 05-21-2024 Patient encounter procedure Metro Pat [facility] Comment on above: Dysfunction of both eustachian tubes (Primary Dx) Start: 03-18-2024 End: 03-18-2024 Office outpatient visit 25 minutes Mich Verde MD Work Phone: [facility] Comment on above: Dysfunction of both eustachian tubes (Primary Dx); Hearing loss of right ear, unspecified hearing loss type; Otomycosis- right ear; Dysfunction of right eustachian tube; Acute right otitis media Start: 03-18-2024 End: 03-18-2024 ambulatory MICH VERDE [facility] Start: 03-07-2024 End: 03-07-2024 Orders Only Tiesha Rai PA-C Work Phone: [facility] Start: 03-06-2024 End: 03-06-2024 ambulatory [facility] [...] Start: 12-26-2023 End: 12-26-2023 ambulatory ÁNGELA DELGADO Facility:[facility] Start: 12-26-2023 End: 12-26-2023 Patient encounter procedure [...] type Start: 11-21-2023 End: 11-21-2023 ambulatory SELF Facility:[facility] Start: 11-21-2023 End: 11-21-2023 Patient encounter procedure Ángela Nancybaltazar Delgado DPM Work Phone: Podiatry Comment on above: Onychomycosis (Prima ry Dx); Ingrown toenail; Toe pain, bilateral; Medication monitoring encounter Start: 11-09-2023 End: 11-09-2023 ambulatory Pérezmarylou Barcneas Other [employer] Other Start: 11-09-2023 Encounter by Tomfoolery r link Pérezmarylou Barc[facility] Start: 11-09-2023 Telephone encounter Pérez Barcenas [facility] Start: 11-08-2023 Nutrition therapy P[facility]rez [facility]arc[facility] Start: 11-08-2023 Telephone encounter Pérez Barcenas [facility] Start: 11-08-2023 Registered Recurring DO Katie Thapa Work Phone: [facility] Work Phone: Start: 11-08-2023 End: 11-08-2023 ambulatory DO Katie Thapa Work Phone: [employer] Other Start: 11-08-2023 End: 11-08-2023 Patient encounter procedure DO Katie Thapa Work Phone: [facility] [place] Work Phone: Start: 09-23-2023 End: 09-23-2023 ambulatory Patricia Salas Other [employer] Other Start: 09-23-2023 Patient encounter procedure Patricia Salas [facility] [place] Start: 09-23-2023 Patient encounter procedure DO Katie Thapa Work Phone: [facility] Start: 08-17-2023 End: 08-17-2023 Admission to same day surgery center DO Katie Thapa Work Phone: [facility] [place] Start: 08-17-2023 End: 08-17-2023 ambulatory DO Katie Thapa Work Phone: [facility] Work Phone: Start: 08-16-2023 Telephone encounter Mara barrios MD Work Phone: Internal Medicine Comment on above: Patient Question Start: 08-16-2023 End: 08-16-2023 ambulatory Mary Ann Levin MD Work Phone: Dermatology Comment on above: Acne vulgaris (Prima ry Dx) Start: 08-16-2023 End: 08-16-2023 Telemedicine consultation with patient Mary Ann Levin MD Work Phone: [facility] Start: 08-03-2023 End: 08-03-2023 Admission to same day surgery center DO DianeDia Wesly Geethamagui Work Phone: [facility] [place] Start: 08-03-2023 End: 08-03-2023 ambulatory DO Katie Iniguezmarendenisse Work Phone: [facility] Work Phone: Start: 07-18-2023 Telephone encounter Mary Ann reynolds MD Work Phone: Dermatology Comment on above: Medication Question Start: 06-25-2023 ambulatory Mary Ann Levin MD Work Phone: Dermatology Comment on above: Ance Start: 06-09-2023 End: 06-09-2023 ambulatory Arti Barahona Other [employer] Other Start: 06-09-2023 Office outpatient vi sit 15 minutes Arti Barahona [facility] [place] Start: 06-08-2023 Telephone encounter Mara barrios MD Work Phone: Plastic Surgery Comment on above: Opened In Error Start: 06-06-2023 Telephone encounter Mara barrios MD Work Phone: Plastic Surgery Start: 06-01-2023 End: 06-01-2023 Patient encounter procedure Mara Alcaraz MD Work Phone: Plastic Surgery Comment on above: Mastodynia; Macromastia Start: 04-18-2023 ambulatory Dianna CarrollYasir armendariz PA-C Work Phone: General Surgery Comment on above: [place] Start: 04-04-2023 End: 04-04-[address] Work Phone: Nutrition Therapy Comment on above: Dietary counseling a nd surveillance (Primary Dx); Class 1 obesity with body mass index (BMI) of 30.0 to 30.9 in adult, unspecified obesity type, unspecified whether serious comorbidity present Start: 04-04-2023 End: 04-04-2023 Telemedicine consultation with patient Kerry Zuñigac RD Work Phone: [facility] Start: 01-03-2023 End: 01-04-[address] Diane THAPA Facility:[facility] Start: 12-30-2022 ambulatory [facility] Start: 12-29-2022 Telephone encounter Mary Ann reynolds MD Work Phone: Dermatology Comment on above: Patient Question Start: 12-16-2022 End: 12-17-2022 ambulatory Katie [facility]APA [facility] Start: 12-15-2022 End: 12-16-[address] DOCTOR MIKE Facility:[facility] Start: 12-14-2022 ambulatory JOE AN [facility] Start: 12-13-2022 ambulatory Wesly KEEN Facility: [facility] Start: 12-12-2022 ambulatory Wesly KEEN Facility: [facility] Start: 11-18-2022 ambulatory Ludy ROBLES MATCH MARKER Comment on above: Pt would like a neur ology 2nd opinion appt. 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] Start: 11-14-2022 End: 11-14-2022 Patient encounter procedure Sreekanth Sood MD Work Phone: Neurology Comment on above: Cerebellar tonsillar ectopia (HCC) (Primary Dx); Exertional headache; Cervicalgia; Macromastia Start: 11-02-2022 ambulatory Aminata husain RN [facility] Start: 11-02-2022 Patient encounter procedure Aminata Montgomery RN NURSE MATCH MARKER Comment on above: Referral Information Start: 10-21-2022 End: 10-22-[address] Diane THAPA Facility: Start: 10-13-2022 End: 10-14-2022 ambulatory DIANNA JIMENEZREBECCA Facility:[facility] Start: 10-11-2022 End: 10-12-[address] [...] patient Mary Ann Levin MD Work Phone: [facility] Start: 08-09-2022 ambulatory Mary Ann Levin MD Work Phone: Dermatology Comment on above: Ance medicine Start: 08-05-2022 Telephone encounter No Pcp [place] Comment on above: Medication Problem Start: 08-04-2022 [...] 06-24-2022 End: 06-24-2022 ambulatory Zully Mendoza Other [employer] Other Start: 06-24-2022 Office outpatient vi sit [...] tonsillar ectopia (HCC) (Primary Dx); Exertional headache; 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 Start: 04-04-2022 End: 04-04-2022 Telemedicine consultation with patient Sreekanth Sood MD Work Phone: [facility] Start: 03-16-2022 Refill Mary Ann Levin MD Work Phone: [address] [place] [address] Comment on above: Refill Request Start: 03-16-2022 Refill Mary Ann Levin MD Work Phone: Dermatology Comment on above: Refill Request Start: 12-30-2021 ambulatory Mary Ann Levin MD Work Phone: Dermatology Comment on above: Ance Start: 12-30-2021 End: 12-30-2021 Patient encounter procedure Sreekanth Sood MD Work Phone: Neurology Comment on above: Cerebellar tonsillar ectopia (HCC) (Primary Dx); Exertional headache; 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 Start: 12-29-2021 ambulatory Francheska Marinelli RT(R) Ra diology Comment on above: Radiology MRI Start: 12-29-2021 Patient encounter procedure Francheska Lanzaderrell RT(R) VU [place] Start: 12-29-2021 End: 12-29-2021 Subsequent hospital visit by physician Mri [facility], [facility] (1.5t) Work Phone: Radiology Comment on above: Thunderclap headache [G44.53] Start: 05-22-2019 End: 05-22-2019 Departed Referred Margarita [facility] Start: 06-13-2017 End: 06-13-2017 Emergency department patient visit SREEKANTH JOHNSON Facility:[facility] Procedures Date Procedure Procedure Detail Performing Clinician Start: 07-17-2025 [facility] PREG QUANT HCG Generic External Data Provider Start: 07-05-2025 [facility] PREG QUANT HCG Jona Vann MD Work Phone: Start: 07-03-2025 [facility] PREG QUANT HCG Jona Vann MD Work Phone: Start: 06-10-2025 METHYLENETETRAHYDROFOLATE REDUCTASE (MTHFR) THERMOLABILS Jona Vann MD Work Phone: Start: 04-17-2025 URINE CULTURE - [facility] Generic External Data Provider Start: 02-22-2025 Gonadotropin [...] Phone: Start: 11-04-2024 Follow-up visit Follow-up OSBALDO LINDSEYU VU Start: 10-23-2024 Urine test visual color [...] Samples Work Phone: Start: 04-04-2022 Adult depression screening assessment Sreekanth Samples Work Phone: Start: 12-29-2021 Mri brain brain stem w/o w/contrast material Sreekanth Samples Work Phone: Start: 12-22-2021 Adult depression screening assessment Francheska Marinelli RT(R) Start: 05-22-2019 Aerobic Culture Margarita Apple Start: 05-22-2019 Anaerobic Culture Margarita Apple Start: 05-22-2019 Microscopic observation Gram stain Nom (Unsp spec) Margarita Chiu Plan of Treatment Date Care Activity Detail Author Start: 02-27-2026 Tobacco Screening Tobacco Screening [facility] Start: 02-26-2026 Adult BMI Screening Adult BMI Screen ing [facility] Start: 11-04-2025 Adult BMI Screening Adult BMI Screen ing [facility] Start: 09-11-2025 Adult BMI Screening Adult BMI Screen ing [facility] Start: 09-11-2025 Tobacco Screening Tobacco Screening [facility] Start: 08-27-2025 Adult BMI Screening Adult BMI Screen ing [facility] Start: 08-27-2025 Tobacco Screening Tobacco Screening [facility] Start: 08-20-2025 Adult BMI Screening Adult BMI Screen ing [facility] Start: 08-20-2025 Tobacco Screening Tobacco Screening [facility] Start: 08-18-2025 End: 08-18-2025 ambulatory 08/18/2025 12:45 PM EST Initial [facility] [address] [place] [phone] Jona Vann MD [address] [place] [address] BRETEfe APONTE Start: 08-14-2025 End: 08-14-2025 Patient encounter procedure BRANDEN KING OB Start: 08-11-2025 End: 07-18-2026 BEACON CARRIER SCREEN;14 GENES BEACON CARRIER SCREEN;14 GENES Lab Routine Screening for genetic disease carrier status Expected: 08/11/2025 (Approximate), Expires: 07/18/2026 [facility] Comment on above: Expected: 08/11/2025 (Approximate), Expires: 07/18/2026 Start: 08-11-2025 End: 07-18-2026 [id number] PLUS Core+SCA [id number] PLUS Core+SCA Lab Routine Encounter for screening for chromosomal anomalies ([facility]) Expected: 08/11/2025 (Approximate), Expires: 07/18/2026 [facility] Comment on above: Expected: 08/11/2025 (Approximate), Expires: 07/18/2026 Start: 07-31-2025 End: 07-31-2025 Professional / ancillary services management 07/31/2025 2:45 PM EDT Ancillary Procedure [facility] [address] [place] [phone] BRANDEN APONTE Start: 07-18-2025 End: 07-18-2026 Bacteria identified in Urine by Culture Urine culture Microbiology Routine care, subsequent , first trimester ([facility]) Expected: 07/18/2025, Expires: 07/18/2026 [facility] Comment on above: Expected: 07/18/2025 , Expires: 07/18/2026 Start: 07-18-2025 End: 07-18-2026 Blood type and Indirect antibody screen panel - Blood Type and screen Lab Routine care, subsequent , first trimester ([facility]) Expected: 07/18/2025, Expires: 07/18/2026 [facility] Comment on above: Expected: 07/18/2025 , Expires: 07/18/2026 Start: 07-18-2025 End: 07-18-2026 CBC W Auto Differential panel - Blood CBC auto differential Lab Routine care, subsequent , first trimester ([facility]) Expected: 07/18/2025, Expires: 07/18/2026 [facility] Comment on above: Expected: 07/18/2025 , Expires: 07/18/2026 Start: 07-18-2025 End: 07-18-2026 Drugs of abuse panel - Urine by Screen method Toxicology screen, urine Lab Routine Encounter for drug screening Expected: 07/18/2025 (Approximate), Expires: 07/18/2026 [facility] Work Phone: Comment on above: Expected: 07/18/2025 (Approximate), Expires: 07/18/2026 Start: 07-18-2025 End: 07-18-2026 HEPATITIS B SURFACE ANTIGEN ([facility]) HEPATITIS B SURFACE ANTIGEN ([facility]) Lab Routine care, subsequent , first trimester ([facility]) Expected: 07/18/2025, Expires: 07/18/2026 [facility] Comment on above: Expected: 07/18/2025 , Expires: 07/18/2026 Start: 07-18-2025 End: 07-18-2026 Hepatitis C virus Ab [Presence] in Serum or Plasma by Immunoassay Hepatitis C antibody Lab Routine care, subsequent , first trimester ([facility]) Expected: 07/18/2025, Expires: 07/18/2026 [facility] Comment on above: Expected: 07/18/2025 , Expires: 07/18/2026 Start: 07-18-2025 End: 07-18-2026 HIV-1/HIV-2 antigen/antibody combination immunoassay HIV-1 and HIV-2 antibodies Lab Routine care, subsequent , first trimester ([facility]) Expected: 07/18/2025, Expires: 07/18/2026 [facility] Comment on above: Expected: 07/18/2025 , Expires: 07/18/2026 Start: 07-18-2025 End: 07-18-2026 RPR W/RFX TO QUANT & TP ABS ([facility]) RPR W/RFX TO QUANT & TP ABS ([facility]) Lab Routine care, subsequent , first trimester ([facility]) Expected: 07/18/2025, Expires: 07/18/2026 [facility] Comment on above: Expected: 07/18/2025 , Expires: 07/18/2026 Start: 07-18-2025 End: 07-18-2026 Rubella antibody, IgG Rubella antibody, IgG Lab Routine care, subsequent , first trimester ([facility]) Expected: 07/18/2025, Expires: 07/18/2026 [facility] Comment on above: Expected: 07/18/2025 , Expires: 07/18/2026 Start: 07-18-2025 End: 07-18-2026 Urinalysis complete panel - Urine Urinalysis with microscopic Lab Routine care, subsequent , first trimester ([facility]) Expected: 07/18/2025, Expires: 07/18/2026 [facility] Comment on above: Expected: 07/18/2025 , Expires: 07/18/2026 Start: 07-18-2025 End: 07-18-2025 ambulatory 07/18/2025 10:30 AM EDT Initial [facility] APONTE [address] [place] [phone] BRANDEN APONTE Start: 07-15-2025 Adult BMI Screening Adult BMI Screen ing [facility] Start: 07-15-2025 Tobacco Screening Tobacco Screening [facility] Start: 07-15-2025 End: 07-15-2025 Patient encounter procedure 07/15/2025 8:45 AM EDT Office Visit BRANDEN APONTE [address] [place] [phone] Jona Vann MD [address] [place] [address] BRANDEN APONTE Start: 07-03-2025 Adult BMI Screening Adult BMI Screen ing [facility] Start: 07-03-2025 Tobacco Screening Tobacco Screening [facility] Start: 06-25-2025 DTaP,Tdap and Td Vaccines (7 - Td or Tdap) DTaP,Tdap and Td Vaccines (7 - Td or Tdap) [facility] Start: 06-25-2025 DTaP/Tdap/Td vaccine (7 - Td or Tdap) DTaP/Tdap/Td vaccine (7 - Td or Tdap) [facility] Start: 06-25-2025 Urine microalbumin profile DTaP,Tdap,Td Vaccine (7 - Td or Tdap) [facility] Start: 06-13-2025 End: 06-13-2025 Patient encounter procedure [facility] [address] Comment on above: Major depressive dis order, single episode, mild Start: 06-10-2025 End: 06-10-2026 Ferritin [Mass/volume] in Serum or Plasma Ferritin Lab Routine Amenorrhea Menorrhagia with irregular cycle Excessive bleeding in premenopausal period Expected: 06/10/2025 (Approximate), Expires: 06/10/2026 [facility] Comment on above: Expected: 06/10/2025 (Approximate), Expires: 06/10/2026 Start: 06-10-2025 End: 06-10-2026 MTHFR mutation MTHFR mutation Lab Routine History of miscarriage Expected: 06/10/2025 (Approximate), Expires: 06/10/2026 [facility] Work Phone: Comment on above: Expected: 06/10/2025 (Approximate), Expires: 06/10/2026 Start: 06-09-2025 COVID-19 Vaccine ( season) COVID-19 Vaccine ( season) [facility] Start: 06-09-2025 Influenza vaccination P [facility] Start: 05-21-2025 Adult BMI Screening Adult BMI Screen ing [facility] Start: 05-21-2025 Tobacco Screening Tobacco Screening [facility] Start: 05-01-2025 End: 05-01-2025 Patient encounter procedure 05/01/2025 4:15 PM EDT Office Visit Dermatology [address] [place] [address] Mary Ann Levin MD [address] [place], [place] [id number] requesting refills Dermatology Comment on above: requesting refills Start: 04-17-2025 Bacteria identified in Urine by Culture Urine Culture [facility] Start: 04-17-2025 Urine culture [facility] Start: 03-18-2025 Adult BMI Screening Adult BMI Screen ing [facility] Start: 03-18-2025 Tobacco Screening Tobacco Screening [facility] Start: 03-06-2025 Adult BMI Screening Adult BMI Screen ing [facility] Start: 03-06-2025 Tobacco Screening Tobacco Screening [facility] Start: 02-19-2025 End: 02-19-2025 Patient encounter procedure 02/19/2025 12:45 PM EDT Office Visit Dermatology [address] [place], [place] [phone] Mary Ann Levin MD [address] [place] [address] [place], [place] [phone] 2 months follow up for acne Dermatology Comment on above: 2 months follow up f or acne Start: 02-18-2025 [facility] Start: 12-18-2024 Adult BMI Screening Adult BMI Screen ing [facility] Start: 12-18-2024 Tobacco Screening Tobacco Screening [facility] Start: 12-03-2024 End: 12-03-2024 Patient encounter procedure 12/03/2024 8:40 AM EST Office Visit [facility] [address] [place] [address] Anil Thapa, DO [address] [place] [address] [facility] Start: 11-04-2024 End: 11-04-2024 Patient encounter procedure 11/04/2024 1:45 PM EST Office Visit [facility] [address] [place] [address] Osbaldo Jennings-Catie, DO [address] [place] [address] [facility] Start: 10-15-2024 End: 10-15-2024 Patient encounter procedure 10/15/2024 10:00 AM EST Office Visit [facility] [address] [place] [phone] Anil Thapa, [address] [facility] [address] [place] [address] [facility] [address] Start: 10-10-2024 End: 10-10-2024 Patient encounter procedure 10/10/2024 1:45 PM EST Office Visit Dermatology [address] [place], [place] [phone] Mary Ann Levin MD [address] [address] [facility] Comment on above: [facility] Start: 09-11-2024 End: 09-11-2024 Patient encounter procedure 09/11/2024 10:30 AM EST Office Visit [facility] [address] [place] [phone] [facility] [address] [place] [address] [facility] Start: 09-10-2024 End: 09-10-2024 Clinical Support [facility] Start: 09-09-2024 End: 09-09-2024 Patient encounter procedure 09/09/2024 9:45 AM EST Office Visit [facility] [address] [place] [phone] Dick Osbaldo-Nhu, DO [address] [place] [address] [facility] Start: 08-27-2024 End: 08-27-2024 Admission to same day surgery center 08/27/2024 12:45 PM EST - 08/27/2024 1:45 PM EST Surgery [facility] [address] [place] [address] [facility] [address] [facility] [address] [place] [address] DIRECT LARYNGOSCOPY WITH BIOPSY BASE OF TONGUE LESION [32551 (CPT )] [facility] Comment on above: DIRECT LARYNGOSCOPY WITH BIOPSY BASE OF TONGUE LESION [40588 (CPT )] Start: 08-27-2024 End: 08-27-2024 Laryngoscopy direct operative w/biopsy DIRECT LARYNGOSCOPY Lesion of tongue 08/27/2024 12:45 PM EST [facility] Start: 08-27-2024 Subsequent hospital visit by physician 08/27/2024 12:45 PM EST Hospital Encounter [facility] [address] [place] [address] Dick [facility], DO [address] [facility] [address] [place] [address] [facility] Start: 08-27-2024 End: 08-27-2024 Laryngoscopy direct operative w/biopsy DIRECT LARYNGOSCOPY Lesion of tongue 08/27/2024 10:13 AM EST [facility] Start: 08-13-2024 End: 08-13-2024 Patient encounter procedure 08/13/2024 1:45 PM EST Office Visit [facility] [address] [facility] [address] [place] [address] Jona Vann MD [address] [facility] [address] [place], [place] [phone] [facility] Start: 08-08-2024 End: 08-08-2024 Patient encounter procedure 08/08/2024 10:00 AM EDT Office Visit [facility] [address] [place] [address] Renita Ellis APRN-[employer] [address] [place] [address] [facility] Start: 08-07-2024 End: 08-07-2024 Patient encounter procedure 08/07/2024 10:00 AM EDT Office Visit [facility] [address] [facility] [address] [place] [phone] [place] Enrique Jennings DO [address] [facility] [address] [place] [address] [facility] Start: 07-24-2024 End: 07-24-2024 Patient encounter procedure 07/24/2024 10:00 AM EDT Office Visit [facility] [address] [place] [address] Renita Ellis APRN-[employer] [address] [place] [address] [facility] Start: 07-15-2024 End: 07-15-2024 Patient encounter procedure 07/15/2024 3:30 PM EDT Office Visit [facility] [address] [facility] [address] [place] [address] [place] [address] [place] [address] [address] [place] [address] [facility] Start: 07-03-2024 End: 07-03-2025 CT Neck W contrast IV CT neck soft tissue with contrast Imaging Routine Chronic throat pain Odynophagia Expected: 07/03/2024, Expires: 07/03/2025 [facility] Work Phone: Comment on above: Expected: 07/03/2024 , Expires: 07/03/2025 Start: 06-28-2024 Computed tomography of abdomen and pelvis with contrast CT abdomen pelvis w con [facility] Start: 06-28-2024 CT Abdomen and Pelvi s W contrast IV [facility] Start: 06-28-2024 [facility] Start: 06-27-2024 Bacteria identified in Urine by Culture [facility] Start: 06-19-2024 Depression Screening Depression Scre ening [facility] Start: 06-09-2024 COVID-19 Vaccine ( season) COVID-19 Vaccine () [facility] Start: 06-09-2024 Covid-19 Vaccine ( season) Covid-19 Vaccine ( season) [facility] Start: 06-09-2024 Influenza vaccination [facility] Start: 06-04-2024 End: 06-04-2024 Admission to same day surgery center 06/04/2024 9:00 AM EDT - 06/04/2024 9:30 AM EDT Surgery [facility] [address] [place] [phone] Mich Verde MD [address] [place] [address] [address] [place] [address] REMOVAL TUBE EAR [67340 (CPT )] [facility] Comment on above: REMOVAL TUBE EAR [69 424 (CPT )] Start: 06-04-2024 Subsequent hospital visit by physician 06/04/2024 9:00 AM EDT Hospital Encounter [facility] [address] [place] [phone] Mich Verde MD [address] [place] [address] [address] [place] [address] [facility] Start: 06-04-2024 End: 06-04-2024 Tympanic memb rpr w/wo prepj perfor patch APPLICATION GRAFT PAPER PATCH EAR Dysfunction of both eustachian tubes Hearing loss of right ear, unspecified hearing loss type Otomycosis Acute right otitis media Cerumen debris on tympanic membrane of both ears Chronic mucoid otitis media of both ears 06/04/2024 9:00 AM EDT [facility] Start: 06-04-2024 End: 06-04-2024 Ventilating tube [...] [facility] [address] [facility] [address] [place] [phone] Tiesha Rai, PA-C [address] [place] [address] [facility] Start: 03-18-2024 End: 03-18-2024 Patient encounter procedure 03/18/2024 2:30 PM EDT Office Visit [facility] [address] [facility] [address] [place] [phone] Mich Verde MD [address] [place] [address] [facility] Start: 02-13-2024 End: 02-13-2024 Patient encounter procedure 02/13/2024 2:00 PM EDT Office Visit [facility] [address] [place] [phone] Mich Verde MD [address] [place] [address] [facility] Start: 02-06-2024 End: 02-06-2024 Patient encounter procedure 02/06/2024 1:15 PM EDT Office Visit [facility] [address] [place] [address] Tiesha Rai, PA-C [address] [place] [address] [facility] Start: 11-21-2023 End: 02-20-2024 Hepatic function 2000 panel - Serum or Plasma HEPATIC FUNCTION PNL Lab Routine Medication monitoring encounter Expected: 11/21/2023, Expires: 02/20/2024 [facility] Work Phone: Comment on above: Expected: 11/21/2023 , Expires: 02/20/2024 Start: 2023 Screening for malign ant neoplasm of cervix [facility] Start: 10-09-2023 Depression Assessment [facility] Start: 08-17-2023 [facility] Start: 08-03-2023 End: 08-03-2023 [facility] Start: 06-09-2023 Covid-19 Vaccine ( season) Covid-19 Vaccine ( season) [facility] Start: 06-09-2023 Influenza vaccination [facility] Start: 04-04-2023 Adult depression screening assessment DEPRESSION SCREENING [facility] Start: 12-22-2022 Adult depression screening assessment DEPRESSION SCREENING [facility] Start: 10-09-2022 DEPRESSION ASSESSMENT DEPRESSION ASS ESSMENT [facility] Start: 06-09-2022 Influenza vaccination INFLUENZA (#1) [facility] Start: 10-09-2021 DEPRESSION ASSESSMENT DEPRESSION ASS ESSMENT [facility] Start: 2020 Adult BMI Follow Up Plan Adult BMI Follow Up Plan [facility] Start: 2020 CHLAMYDIA SCREENING (18-24) CHLAMYDIA SCREENING (18-24) [facility] Start: 2020 Depression Screening Depression Scre ening [facility] Start: 2020 GC (GONORRHEA) SCREENING (18-24) GC (GONORRHEA) SCREENING (18-24) [facility] Start: 2020 HEPATITIS C SCREENING HEPATITIS C SC LATASHA [facility] Start: 2020 Hepatitis C screening [facility] Start: 2020 HIV SCREENING HIV SCREENING [facility] Start: 2020 HIV screening HIV Screening [facility] Start: 2020 Screening for Chlamy magaly trachomatis Chlamydia Screening () [facility] Start: 2018 Meningococcal B Vacc ine (1 of 2 - Standard) Meningococcal B Vaccine (1 of 2 - Standard) [facility] Start: 2018 Meningococcal B Vaccine: Consider Based On Risk (1 of 2 - Patient Seeks Protection) Meningococcal B Vaccine: Consider Based On Risk (1 of 2 - Patient Seeks Protection) [facility] Start: 2018 MENINGOCOCCAL B: Consider based on risk (1 of 2 - Patient Seeks Protection) MENINGOCOCCAL B: Consider based on risk (1 of 2 - Patient Seeks Protection) [facility] Start: 2018 Screening for Chlamy magaly trachomatis Chlamydia/GC screen [facility] Start: 2017 HIV screening HIV screen [facility] Start: 06-17-2017 HPV VACCINE (2 - 2-d ose series) HPV VACCINE (2 - 2-dose series) [facility] Start: 2016 PEDS TO ADULT TRANSITION ANNUAL ASSESSMENT PEDS TO ADULT TRANSITION ANNUAL ASSESSMENT [facility] Start: 2014 Depression Screen Depression Screen [facility] Start: 2014 PEDS TO ADULT TRANSITION INITIAL DISCUSSION PEDS TO ADULT TRANSITION INITIAL DISCUSSION [facility] Start: 2013 Urine microalbumin profile [facility] Start: 2012 MENINGOCOCCAL B: Consider based on risk (1 of 2 - Risk Bexsero 2-dose series) MENINGOCOCCAL B: Consider based on risk (1 of 2 - Risk Bexsero 2-dose series) [facility] Start: 02-27-2008 Varicella vaccine (2 of 2 - 2-dose childhood series) Varicella vaccine (2 of 2 - 2-dose childhood series) [facility] Start: 2007 COVID-19 VACCINE (#1) COVID-19 VACCI NE (#1) [facility] Start: 2007 COVID-19 VACCINE (1) COVID-19 VACCIN E (1) [facility] Start: 04-17-2003 COVID-19 VACCINE (#1) COVID-19 VACCI NE (#1) [facility] Bacteria identified in Urine by Culture Urine culture Microbiology Routine Vaginal burning Ordered: 10/23/2024 [facility] Comment on above: Ordered: 10/23/2024 Bacteria identified in Urine by Culture Urine culture Microbiology Routine Vaginal burning Vaginal itching Vaginal irritation Ordered: 06/10/2025 [facility] Comment on above: Ordered: 06/10/2025 CBC W Auto Different ial panel - Blood CBC and differential Lab Routine Amenorrhea Menorrhagia with irregular cycle Excessive bleeding in premenopausal period Ordered: 06/10/2025 [facility] Comment on above: Ordered: 06/10/2025 End: 07-15-2025 Comprehensive hearing test Comprehensive hearing test Audiology Routine Postop check 1 Occurrences starting 07/15/2024 until 07/15/2025 [facility] Work Phone: Comment on above: 1 Occurrences starti ng 07/15/2024 until 07/15/2025 EKG 12 Lead (Chest Pain) EKG 12 Lead (Chest Pain) ECG STAT 11/16/2024 1:16 AM EST [facility] GENITAL MYCOPLASMAS JANET, SWAB GENITAL MYCOPLASMAS JANET, SWAB Pathology and Cytology Routine Vaginal burning Vaginal itching Vaginal discharge Vaginal odor Ordered: 10/23/2024 [facility] Work Phone: Comment on above: Ordered: 10/23/2024 hCG, quantitative hCG, quantitat woody Lab Routine Amenorrhea Ordered: 06/10/2025 [facility] Comment on above: Ordered: 06/10/2025 Iron and Iron bindin g capacity panel - Serum or Plasma Iron and TIBC Lab Routine Amenorrhea Menorrhagia with irregular cycle Excessive bleeding in premenopausal period Ordered: 06/10/2025 [facility] Comment on above: Ordered: 06/10/2025 Lipoprotein a [Moles/volume] in Serum or Plasma [facility] Lupus anticoagulant Lupus antico agulant Lab Routine History of miscarriage Ordered: 06/10/2025 [facility] Comment on above: Ordered: 06/10/2025 Lopez miscellaneous test Lopez mis cellaneous test Lab Routine Screening for malignant neoplasm of cervix Vaginal discharge Ordered: 08/13/2024 [facility] Comment on above: Ordered: 08/13/2024 NuSwab Vaginitis Plu s (VG+) NuSwab Vaginitis Plus (VG+) Microbiology Routine Screening for malignant neoplasm of cervix Vaginal discharge Ordered: 08/13/2024 [facility] Comment on above: Ordered: 08/13/2024 NuSwab Vaginitis Plu s (VG+) NuSwab Vaginitis Plus (VG+) Microbiology Routine Vaginal burning Vaginal itching Vaginal discharge Vaginal odor Ordered: 10/23/2024 [facility] Comment on above: Ordered: 10/23/2024 Patient Education [facility] Work Phone: Patient referral [facility] Work Phone: SENDOUT TEST MISCELLANEOUS [facility] SENDOUT TEST MISCELLANEOUS [facility] Lab Routine Screening for malignant neoplasm of cervix Encounter for gynecological examination without abnormal finding Ordered: 08/13/2024 [facility] Work Phone: Comment on above: Ordered: 08/13/2024 URINE CULTURE - [facility] URINE CULTU RE - [facility] Lab Routine 04/17/2025 1:15 AM EDT [facility] Immunizations Immunization Date Immunization Notes Care Provider Massimo whipple 06-13-2024 influenza, injectabl e, madin maria del carmen canine kidney, preservative free Anil Thapa DO Work Phone: [facility] 06-13-2024 influenza virus vaccine, unspecified formulation Tala MEJIA Work Phone: [facility] 06-23-2023 Influenza, injectabl e, Madin [place] Canine Kidney, preservative free, quadrivalent Gm Jason PRODUCTION SCHEDULER Work Phone: [facility] 06-23-2023 influenza virus vaccine, unspecified formulation [facility] 03-09-2023 SARS-COV-2 (COVID-19 ) vaccine, mRNA, spike protein, LNP, bivalent, preservative free, 30 mcg/0.3 mL dose, merly-sucrose formulation Gm Jason PRODUCTION SCHEDULER Work Phone: [facility] 08-03-2022 Influenza, injectabl e, Madin [place] Canine Kidney, preservative free, quadrivalent Gm Jason PRODUCTION SCHEDULER Work Phone: [facility] 08-03-2022 influenza virus vaccine, unspecified formulation Mary Ann Levin MD Work Phone: [facility] 06-04-2021 influenza, injectabl e, quadrivalent, preservative free Gm Jason PRODUCTION SCHEDULER Work Phone: [facility] 07-02-2020 Influenza, injectabl e, Madin [place] Canine Kidney, quadrivalent with preservative Gm Jason PRODUCTION SCHEDULER Work Phone: [facility] 07-10-2019 Influenza, injectabl e, Madin [place] Canine Kidney, preservative free, quadrivalent Gm Jason PRODUCTION SCHEDULER Work Phone: [facility] 07-06-2018 influenza, injectabl e, quadrivalent, preservative free Gm Jason PRODUCTION SCHEDULER Work Phone: [facility] 07-13-2017 hepatitis A vaccine, pediatric/adolescent dosage, 2 dose schedule [facility] 07-13-2017 Human Papillomavirus 9-valent vaccine [facility] 07-13-2017 influenza, injectabl e, quadrivalent, preservative free [facility] 12-15-2016 hepatitis A vaccine, adult dosage [facility] 12-15-2016 hepatitis A vaccine, pediatric/adolescent dosage, 2 dose schedule Francheskajarred Lanzai RT(R) [facility] Work Phone: 12-15-2016 human papilloma viru s vaccine, quadrivalent Tiesha Rai PA-C Work Phone: [facility] 12-15-2016 Human Papillomavirus 9-valent vaccine Francheskajarred Lanzai RT(R) [facility] Work Phone: 07-31-2015 meningococcal oligosaccharide (groups A, C, Y and W-135) diphtheria toxoid conjugate vaccine (MCV4O) [facility] 07-31-2015 meningococcal polysaccharide (groups A, C, Y and W-135) diphtheria toxoid conjugate vaccine (MCV4P) Francheskajarred Marinelli RT(R) [facility] 07-08-2015 influenza virus vaccine, unspecified formulation Tiesha Rai PA-C Work Phone: [facility] 07-08-2015 influenza, injectabl e, quadrivalent, preservative free Francheska Lapponi RT(R) [facility] 07-08-2015 influenza, seasonal, injectable Gm Jason PRODUCTION SCHEDULER Work Phone: [facility] 06-25-2015 tetanus toxoid, redu lita diphtheria toxoid, and acellular pertussis vaccine, adsorbed [facility] 07-30-2013 influenza virus vaccine, unspecified formulation Francheska Lapponi RT(R) [facility] 07-30-2013 influenza, injectabl e, quadrivalent, preservative free Gm Jason PRODUCTION SCHEDULER Work Phone: [facility] 07-28-2011 influenza virus vaccine, unspecified formulation Francheska Lapponi RT(R) [facility] 07-28-2011 influenza, seasonal, injectable Gm Jason PRODUCTION SCHEDULER Work Phone: [facility] 08-24-2010 influenza virus vaccine, unspecified formulation Francheska Lapponi RT(R) [facility] 08-24-2010 influenza, seasonal, injectable, preservative free Gm Jason PRODUCTION SCHEDULER Work Phone: [facility] 07-22-2009 influenza virus vaccine, live, attenuated, for intranasal use Gm Gomez GAYE Work Phone: [facility] 07-22-2009 influenza virus vaccine, unspecified formulation Francheska Lapponi RT(R) [facility] 01-30-2008 diphtheria, tetanus toxoids and acellular pertussis vaccine Francheska Lapponi RT(R) [facility] 01-30-2008 measles, mumps and rubella virus vaccine Francheska Lapponi RT(R) [facility] 01-30-2008 poliovirus vaccine, inactivated Francheska Lapponi RT(R) [facility] 11-08-2004 diphtheria, tetanus toxoids and acellular pertussis vaccine Francheska Lapponi RT(R) [facility] 11-08-2004 varicella virus vaccine Francheska Lappo ni RT(R) [facility] 08-31-2004 influenza virus vaccine, unspecified formulation Tiesha Rai PA-C Work Phone: [facility] 08-31-2004 influenza, seasonal, injectable Gm Woodymargot MACKN Work Phone: [facility] 08-31-2004 influenza, seasonal, injectable, preservative free Francheska Lapponi RT(R) [facility] 04-21-2004 haemophilus influenz ae type b vaccine, conjugate unspecified formulation [facility] 04-21-2004 haemophilus influenz ae type b vaccine, HbOC conjugate Francheska Lapponi RT(R) [facility] 04-21-2004 measles, mumps and rubella virus vaccine Francheska Lapponi RT(R) [facility] 04-21-2004 pneumococcal conjuga te vaccine, 7 valent [facility] 04-21-2004 pneumococcal Conjuga te, unspecified formulation Francheska Lapponi RT(R) [facility] 10-15-2003 influenza virus vaccine, unspecified formulation Tiesha Rai PA-C Work Phone: [facility] 10-15-2003 influenza, seasonal, injectable Francheska Lapponi RT(R) [facility] 09-12-2003 influenza virus vaccine, unspecified formulation Tiesha Rai PA-C Work Phone: [facility] 09-12-2003 influenza, seasonal, injectable Francheska Lapponi RT(R) [facility] 09-09-2003 pneumococcal conjuga te vaccine, 7 valent [facility] 09-09-2003 pneumococcal Conjuga te, unspecified formulation Francheska Lapponi RT(R) [facility] 09-09-2003 poliovirus vaccine, inactivated Francheska Lapponi RT(R) [facility] 04-21-2003 diphtheria, tetanus toxoids and acellular pertussis vaccine Francheska Lapponi RT(R) [facility] 04-21-2003 haemophilus influenz ae type b vaccine, conjugate unspecified formulation [facility] 04-21-2003 haemophilus influenz ae type b vaccine, HbOC conjugate Francheska Lapponi RT(R) [facility] 04-21-2003 hepatitis B vaccine, pediatric or pediatric/adolescent dosage Francheska Lapponi RT(R) [facility] 04-21-2003 pneumococcal conjuga te vaccine, 7 valent [facility] 04-21-2003 pneumococcal Conjuga te, unspecified formulation Francheska Lapponi RT(R) [facility] 02-17-2003 diphtheria, tetanus toxoids and acellular pertussis vaccine Francheska Lapponi RT(R) [facility] 02-17-2003 haemophilus influenz ae type b vaccine, conjugate unspecified formulation [facility] 02-17-2003 haemophilus influenz ae type b vaccine, HbOC conjugate Francheska Lapponi RT(R) [facility] 02-17-2003 poliovirus vaccine, inactivated Francheska Lapponi RT(R) [facility] 2002 diphtheria, tetanus toxoids and acellular pertussis vaccine Francheska Lapponi RT(R) [facility] 2002 haemophilus influenz ae type b vaccine, conjugate unspecified formulation [facility] 2002 haemophilus influenz ae type b vaccine, HbOC conjugate Francheska Lapponi RT(R) [facility] 2002 hepatitis B vaccine, pediatric or pediatric/adolescent dosage Francheska Lapponi RT(R) [facility] 2002 pneumococcal conjuga te vaccine, 7 valent [facility] 2002 pneumococcal Conjuga te, unspecified formulation [facility] poliovirus vaccine, inactivated Francheska Mylai RT(R) [facility] 2002 hepatitis B vaccine, pediatric or pediatric/adolescent dosage Francheskajarred Barkerleonidesi RT(R) [facility] Payers Date Payer Category Payer Self-pay 2022 Medicaid [id number] 2021 Medicaid [employer] [id number] 2021-Present [phone] [address] [place] [address] Medicaid [id number] 2021 Medicaid [id number] [id number] 2002 Unknown [id number] 2.16.840.1.718575.3.579.2.983 2002 Unknown [id number] 2.16.840.1.037630.3.579.2.983 2002 Unknown [id number] 2.16.840.1.325095.3.579.2.983 2002 Unknown [id number] 2.16.840.1.910862.3.579.2.593 2002 Unknown [id number] 2.16.840.1.525329.3.579.2.593 2002 Unknown [id number] 2.16.840.1.783064.3.579.2.593 2002 Unknown [id number] 2.16.840.1.112664.3.579.2.593 2002 Unknown [id number] 2.16.840.1.770052.3.579.2.593 2002 Unknown [id number] 2.16.840.1.879574.3.579.2.128 2002 Unknown [id number] 2.16.840.1.948736.3.579.2.1285 2002 Unknown [id number] 2.16.840.1.051206.3.579.2.1285 2002 Unknown [id number] 2.16.840.1.335362.3.579.2.1285 2002 Unknown [id number] 2.16.840.1.103230.3.579.2.1285 2002 Unknown [id number] 2.16.840.1.275760.3.579.2.1285 2002 Unknown [id number] 2.16.840.1.371622.3.579.2.1285 2002 Unknown [id number] 2.16.840.1.018168.3.579.2.1285 2002 Unknown [id number] 2.16.840.1.245696.3.579.2.128 2002 Unknown [id number] 2.16.840.1.666234.3.579.2.1285 2002 Unknown [id number] 2.16.840.1.194832.3.579.2.1285 2002 Unknown [id number] 2.16.840.1.805668.3.579.2.174 2002 Unknown [id number] 2.16.840.1.450263.3.579.2.174 2002 Unknown [id number] 2.16.840.1.946339.3.579.2.174 2002 Unknown [id number] 2.16.840.1.392744.3.579.2.174 2002 Unknown [id number] 2.16.840.1.964435.3.579.2.1285 2002 Unknown [id number] 2.16.840.1.282556.3.579.2.1286 2002 Unknown [id number] 2.16.840.1.834411.3.579.2.1286 2002 Unknown [id number] 2.16.840.1.630014.3.579.2.1286 2002 Unknown [id number] 2.16.840.1.020056.3.579.2.1285 2002 Unknown [id number] 2.16.840.1.805273.3.579.2.1285 2002 Unknown [id number] 2.16.840.1.468062.3.579.2.1285 2002 Unknown [id number] 2.16.840.1.451791.3.579.2.1285 2002 Unknown [id number] 2.16.840.1.234245.3.579.2.1285 2002 Unknown [id number] 2.16.840.1.734028.3.579.2.1285 2002 Unknown [id number] 2.16.840.1.022167.3.579.2.1258 2002 Unknown [id number] 2.16.840.1.524928.3.579.2.1258 2002 Unknown [id number] 2.16.840.1.235901.3.579.2.1258 2002 Unknown [id number] 2.16.840.1.736447.3.579.2.1258 2002 Unknown [id number] 2.16.840.1.174621.3.579.2.1258 2002 Unknown [id number] 2.16.840.1.786057.3.579.2.1258 2002 Unknown [id number] 2.16.840.1.886632.3.579.2.1258 1959 Medicaid [id number] Unknown [id number] Unknown [id number] 2.16.840.1.847970.3.579.2.531 Unknown [id number] 2.16.840.1.155026.3.579.2.531 Unknown [id number] 2.16.840.1.659090.3.579.2.531 Social History Date Type Detail Facility Start: 12-30-2021 End: 06-29-2023 Tobacco smoking status NHIS Never smoked tobacco [facility] Start: 12-22-2021 End: 11-21-2023 Alcohol intake Current non-drinker of alcohol (finding) [facility] Start: 2002 Sex Assigned At Not on file [facility] Start: 12-19-2021 End: 09-12-2022 Exposure to SARS-CoV-2 (event) Not sure [facility] Start: 12-30-2021 End: 06-29-2023 Tobacco use and exposure Smokeless tobacco non-user [facility] Start: 10-13-2022 End: 06-11-2025 Sex Assigned At [facility] Start: 08-04-2022 Tobacco Comment no one in hous ehold smokes [facility] Start: 10-13-2022 End: 06-11-2025 History of Social function [facility] Adult Depression Screening Assessment 3 [facility] Start: 2000 Sex Assigned At Female F [facility] Start: 07-17-2024 End: 07-18-2025 Alcoholic beverage intake Ex-drinker (finding) [facility] How often to you hav e a drink containing alcohol? Never [facility] Start: 07-10-2023 Alcohol Comment caffeine: none [facility] Start: 12-13-2021 Gender identity Identifies as female gender (finding) [facility] Start: 09-11-2024 End: 02-27-2025 Alcoholic beverage intake Current drinker of alcohol (finding) [facility] Start: 08-20-2024 Alcohol Comment q 1x per month [facility] Start: 03-03-2017 End: 01-30-2019 Sex Female (finding) [facility] Start: 01-11-2025 Alcoholic beverage intake Lifetime non-drinker (finding) [facility] Start: 06-14-2025 [facility] Has the electric, gas, oil, or water company threatened to shut off services in your home in past 12Mo No [facility] How often to you hav [...] to buy more. Sometimes true [facility] Start: 07-18-2025 Alcohol Comment caffeine: occasional ly [facility] NEGATED: Highlighted row [facility] Medical Equipment Procedure Code Equipment Code Equipment Origin al Text Equipment Identifier Dates Tube Vent 4.8[facility] 1.32[facility] [id number] Start: 11-14-2011 Tube Malena Juan in Vent 520-181 - [id number] Start: 02-17-2010 Tube Ear Jacquelyn Bx/5 Bill - [id number] Start: 11-02-2017 Goals Date Patient Goal Desired Activity /State Personal health goal Comment on above: Formatting of this n ote might be different from the original. Evaluation of progress towards goal: Safe dc transition from hospital to home. Personal health goal Functional Status Date Assessment Result Facility 06-13-2025 Patient Health Quest ionnaire 2 item (PHQ-2) [Reported] [facility] 06-11-2025 Total score [AUDIT-C] 2 06/11/20 12:16 PM EDT Mychart, Generic [facility] 06-11-2025 How often to you hav e a drink containing alcohol? Monthly or less 06/11/2025 12:16 PM EDT Mychart, Generic Monthly or less [facility] 06-11-2025 Functional status Patient does n ot drink 06/11/2025 12:16 PM EDT Mychart, Generic Patient does not drink [facility] 06-11-2025 How often do you hav e 6 or more drinks on 1 occasion? Less than monthly 06/11/2025 12:16 PM Mago Robb Less than monthly [facility] 08-21-2015 Are you deaf, or do you have serious difficulty hearing No 08/21/2015 10:22 AM Angela Hernandez, JESSIE No [facility] 08-21-2015 Are you blind, or do you have serious difficulty seeing, even when wearing glasses No 08/21/2015 10:22 AM Angela Hernandez, JESSIE [facility] 08-21-2015 Do you have serious difficulty walking or climbing stairs No 08/21/2015 10:22 AM Angela Hernandez RN [facility] 08-21-2015 Do you have difficul ty dressing or bathing No 08/21/2015 10:22 AM Angela Hernandez, JESSIE [facility] Mental Status Date Assessment Result Facility 08-21-2015 Because of a physica l, mental, or emotional condition, do you have serious difficulty concentrating, remembering, or making decisions No 08/21/2015 10:22 AM Angela Hernandez, JESSIE [facility] Clinical Notes 11-17-2015 to 07-18-2025 Laure Dumont RN - 07/18/2025 10:30 AM EDTTelephone Encounter - Doris Hernandez - 07/04/2025 12:58 PM EDTTelephone Encounter - Doris Hernandez - 07/04/2025 12:58 PM EDTPatient Instructions Note Date & Type Note Facility 07-18-2025 History of Present illness Narrative Name: Charis Allen Date/Time of Service:07/18/2025 11:50 AM :2000 Age: 24 y.o. Chief Complaint Chief Complaint Patient presents with Initial Visit Nurse Visit Charis Allen is a 24 y.o. at 6w6d with [...] of estimated date of delivery No Thalassemia (Surinamese, Burundian, Mediterranean, or background): MCV less than 80 No Neural tube defect (Meningomyelocele, Spina bifida, or Anencephaly) No Congenital heart defect No Down syndrome No Abdoulaye-Sachs (Ashkenazi Jehovah'S Witness, Cajun, Uzbek Martiniquais) No Mima disease (Ashkenazi Jehovah'S Witness) No Familial dysautonomia (Ashkenazi Jehovah'S Witness) No Sickle cell disease or trait () No Hemophilia or other blood disorders No Muscular dystrophy No Cystic fibrosis No [place]'s chorea No Other inherited genetic or chromosomal [...] morning. Do not crush, chew, or split. (Patient not taking: Reported [...] - ASSESSMENT / PLAN Labs Ordered to [facility] per pt request. Printed orders for pt to take with. Aware she will need these completed prior to NOB. Appointments scheduled for 07/31/25 with OBUS and 08/18/25 with PPJ Laure Dumont RN 07/18/2025 11:50 AM documented in this encounter [facility] 07-04-2025 Miscellaneous Notes Spoke with Charis to let her know that Dr. Barbosa does not follow for headaches during and that she would need to follow with Neurology for headaches during her and transferred to Neurology documented in this encounter [facility] 07-04-2025 Telephone encounter Note Spoke with Charis to let her know that Dr. Barbosa does not follow for headaches during and that she would need to follow with Neurology for headaches during her and transferred to Neurology [facility] 07-03-2025 Miscellaneous Notes Efficiency Clerk contacted the patient to offer to schedule from referral that was written by Xiao Ellis. She stated that she would prefer to schedule with neurosurgery. Efficiency Clerk transferred to neurosurgery. documented in this encounter [facility] 07-03-2025 Telephone encounter Note Efficiency Clerk contacted the patient to offer to schedule from referral that was written by Xiao Ellis. She stated that she would prefer to schedule with neurosurgery. Efficiency Clerk transferred to neurosurgery. [facility] 06-13-2025 History of Present illness Narrative [...] chew, or split. 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 Exact number and timing not specified. Etiology unclear at this time. Plan: - Refer to chief operating officer for comprehensive evaluation of recurrent miscarriages - Advise patient that future pregnancies may be complicated due to Chiari malformation, necessitating specialized care Chiari Malformation Assessment: Patient has a known diagnosis of Chiari malformation. This condition may complicate future pregnancies. Plan: - Emphasize importance of specialized care for any future pregnancies due to Chiari malformation - Ensure chief operating officer is aware of this condition for comprehensive planning Assessment & Plan documented in this encounter [facility] 03-19-2025 Telephone encounter Note Patient phones requesting refills as follows: BERENICE: 08/16/2023 FOV: none noted Patient will need follow up appointment, routed to [facility] roller coaster designer at this time. Requested Prescriptions Pending Prescriptions Disp Refills clindamycin (CLEOCIN) 1 % external solution [Pharmacy Med Name: CLINDAMYCIN PH 1% SOLUTION] 60 mL 0 Sig: APPLY TO AFFECTED AREAS ON FACE ONCE EVERYDAY Please review and advise. Otilia Gomez LPN [facility] 03-19-2025 Miscellaneous Notes Patient phones requesting refills as follows: BERENICE: 08/16/2023 FOV: none noted Patient will need follow up appointment, routed to [facility] derm roller coaster designer at this time. Requested Prescriptions Pending Prescriptions Disp Refills clindamycin (CLEOCIN) 1 % external solution [Pharmacy Med Name: CLINDAMYCIN PH 1% SOLUTION] 60 mL 0 Sig: APPLY TO AFFECTED AREAS ON FACE ONCE EVERYDAY Please review and advise. Otilia Gomez LPN documented in this encounter [facility] 02-18-2025 Radiology Diagnostic study note [facility] Main [place] [address] [place] [address] Ultrasound Report Signed Patient: Charis Allen MR#: [id number] : 2000 Acct:[id number] Age/Sex: 24 / F ADM Date: Loc: ER Room: Type: [facility] ER Attending Dr: Ordering Provider: Yaritza Bauer APRN Date of Service: 02/18/25 US/US OB <= 14 weeks fetus: Abdominal Pain ([id number]) US/US OB transvaginal: R/O ECTOPIC Copies to: [...] Camacho M.D. 02/18/2025 8:45 PM [facility] Tech: Roselia Hammad Transcribed By: REMINGTON 02/18/252044 Dictated By: Michael Camacho DO 02/18/252034 Signed By: 02/18/252044 [facility] 01-08-2025 Telephone encounter Note Patient phones requesting refills as follows: BERENICE: 01/04/2023 FOV: 02/19/2025 Requested Prescriptions Pending Prescriptions Disp Refills clindamycin (CLEOCIN) 1 % external solution 60 mL 0 Sig: APPLY TO AFFECTED AREAS ON FACE ONCE A DAY Please review and advise. Liz Oswald MA [facility] 01-08-2025 Miscellaneous Notes Patient phones requesting refills as follows: BERENICE: 01/04/2023 FOV: 02/19/2025 Requested Prescriptions Pending Prescriptions Disp Refills clindamycin (CLEOCIN) 1 % external solution 60 mL 0 Sig: APPLY TO AFFECTED AREAS ON FACE ONCE A DAY Please review and advise. Liz Oswald MA documented in this encounter [facility] 01-07-2025 Telephone encounter Note Temporary refill until patient is seen as it has been greater than 1 year since last appointment. Please call patient and schedule a follow up appointment for acne within next 2 months. Mary Ann Levin MD [facility] 01-07-2025 Miscellaneous Notes Temporary refill until patient is seen as it has been greater than 1 year since last appointment. Please call patient and schedule a follow up appointment for acne within next 2 months. Mary Ann Levin MD Patient phones requesting refills as follows: BERENICE: 08/16/23 Patient will need a follow up appointment, routed to roller coaster designer. Requested Prescriptions Pending Prescriptions Disp Refills clindamycin (CLEOCIN) 1 % external solution [Pharmacy Med Name: CLINDAMYCIN PH 1% SOLUTION] 60 mL 3 Sig: APPLY TO AFFECTED AREAS ON FACE ONCE A DAY Please review and advise. RONALD Montenegro documented in this encounter [facility] 01-07-2025 Telephone encounter Note Patient phones requesting refills as follows: BERENICE: 08/16/23 Patient will need a follow up appointment, routed to roller coaster designer. Requested Prescriptions Pending Prescriptions Disp Refills clindamycin (CLEOCIN) 1 % external solution [Pharmacy Med Name: CLINDAMYCIN PH 1% SOLUTION] 60 mL 3 Sig: APPLY TO AFFECTED AREAS ON FACE ONCE A DAY Please review and advise. RONALD Montenegro [facility] 11-22-2024 Telephone encounter Note Refill of concerta 18 mg to [facility] 11-22-2024 Miscellaneous Notes Refill of concerta 18 mg to [facility] [place] [facility] documented in this encounter [facility] 11-04-2024 History of Present illness Narrative [facility] - ENT [address] [place] [address], [address] [facility] [id number] SUBJECTIVE: Patient ID (2000): Charis Allen is [...] 11/02/2017 Performed by Karthikeyan Lopez MD at [facility] APPENDECTOMY 2016 APPLICATION GRAFT PAPER PATCH EAR Right 06/04/2024 Performed by Mich Verde MD at [facility] BRAIN SURGERY CRANIOTOMY CHIARI DECOMPRESSION / N/A 01/27/2023 Performed by Ajay Barbosa MD at [facility] CYSTOSCOPY RETROGRADE PYELOGRAM Bilateral 11/30/2022 Performed by Margot Hernandez MD at [facility] DILATION AND CURETTAGE OF UTERUS 07/31/2023 DIRECT LARYNGOSCOPY WITH BIOPSY BASE OF TONGUE LESION Right 08/27/2024 Performed by Luis Enrique Jennings DO at [facility] EUSTACHIAN TUBE DILATION Bilateral 11/02/2017 Performed by Karthikeyan Lopez MD at [facility] POSTERIOR LAMINECTOMY CERVICAL SINGLE LEVEL / C1 N/A 01/27/2023 Performed by Ajay Barbosa MD at [facility] REMOVAL TUBE EAR Right 06/04/2024 Performed by Mich Verde MD at [facility] TONSILLECTOMY TYMPANOSTOMY TUBE PLACEMENT TYMPANOTOMY WITH PERMANENET VENT TUBE INSERTION. TYMPANOTOMY WITH NONPERMANENT TUBE IN LEFT EAR Bilateral 11/02/2017 Performed by Karthikeyan Lopez MD at [facility] Family History Problem Relation Age of Onset [...] History Narrative Lives alone. 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 Social Drivers of Health Financial Resource Strain: Patient Declined (11/12/2023) [facility] Overall Financial Resource Strain (CARDIA) Difficulty of Paying Living Expenses: Patient declined Food Insecurity: No Food Insecurity (08/20/2024) Hunger Screening Food Insecurity - Worry: Never True Food Insecurity - Inability: Never True Transportation Needs: Patient Declined (11/12/2023) Received from [facility], [facility] PRAPARE - Transportation Lack of Transportation (Medical): Patient declined Lack of Transportation (Non-Medical): Patient declined Physical Activity: Patient Declined (11/12/2023) [facility] [employer] [facility] Exercise Vital Sign Days of Exercise per Week: Patient declined Minutes of Exercise per Session: Patient declined Stress: Not on file Social Connections: Unknown (11/12/2023) Received from [facility] Social Connection and Isolation Panel [NHANES] Frequency of Communication with Friends and Family: Patient declined Frequency of Social Gatherings with Friends and Family: Patient declined Attends Restorationism Services: Not on file Active Member of Clubs or Organizations: Patient declined Attends Club or Organization Meetings: Patient declined Marital Status: Patient declined Interpersonal Safety: Patient Declined (11/12/2023) Received from [facility] Humiliation, Afraid, Rape, and Kick questionnaire Fear [...] Luis Enrique Jennings DO by Francisco Garcia (olu). Francisco Garcia 11/04/2024 1:45 PM Provider Statement: I Luis Enrique Jennings DO personally performed the services described in the documentation as described by the above named scribe in my presence. It is both accurate and complete at the time of final signature. Dr. Luis Enirque Jennings 11/04/2024 11:19 AM Counseling: The following [...] to ensure the accuracy of this automated counseling center manager, some errors in counseling center manager may have occurred. documented in this encounter [facility] [employer] [facility] 11-04-2024 Instructions Alisongeetha Jose - 11/04/2024 1:45 PM EST - Patient has no pain and is eating/drinking per norm. Biopsy site is well-healed on exam. - Return as needed. documented in this encounter [facility] 10-28-2024 History of Present illness Narrative [facility] documented in this encounter [facility] 10-23-2024 History of Present illness Narrative [...] (CMS/HCC) 12/27/2022 History of chicken pox Migraines ([facility]/HCC) Seasonal allergies Past Surgical History: Procedure [...] response to treatment. documented in this encounter [facility] 10-21-2024 History of Present illness Narrative [...] Insecurity: No Food Insecurity (08/20/2024) Received from [facility] Hunger Screening Within the past 12 [...] with Friends and Family: Patient declined Attends Restorationism Services: Not on file Active Member of [...] tablet, Rfl: 0 documented in this encounter [facility] 09-12-2024 Telephone encounter Note Patient phones requesting refills as follows: BERENICE: 08/16/2023 FOV: 10/10/2024 Requested Prescriptions Pending Prescriptions Disp Refills clindamycin (CLEOCIN) 1 % external solution [Pharmacy Med Name: CLINDAMYCIN PH 1% SOLUTION] 60 mL 3 Sig: APPLY TO AFFECTED AREAS ON FACE ONCE A DAY Please review and advise. Otilia Gomez LPN [facility] 09-12-2024 Miscellaneous Notes Patient phones requesting refills as follows: BERENICE: 08/16/2023 FOV: 10/10/2024 Requested Prescriptions Pending Prescriptions Disp Refills clindamycin (CLEOCIN) 1 % external solution [Pharmacy Med Name: CLINDAMYCIN PH 1% SOLUTION] 60 mL 3 Sig: APPLY TO AFFECTED AREAS ON FACE ONCE A DAY Please review and advise. Otilia Gomez LPN documented in this encounter [facility] 09-11-2024 History of Present illness Narrative Images from the original note were not included. [facility] - [facility] [address] [place] [id number] SUBJECTIVE: Patient ID (2000): Charis Allen is [...] 11/02/2017 Performed by Karthikeyan Lopez MD at [facility] APPENDECTOMY 2016 APPLICATION GRAFT PAPER PATCH EAR Right 06/04/2024 Performed by Mich Verde MD at [facility] CRANIOTOMY CHIARI DECOMPRESSION / N/A 01/27/2023 Performed by Ajay Barbosa MD at [facility] CYSTOSCOPY RETROGRADE PYELOGRAM Bilateral 11/30/2022 Performed by Margot Hernandez MD at [facility] DILATION AND CURETTAGE OF UTERUS 07/31/2023 DIRECT LARYNGOSCOPY WITH BIOPSY BASE OF TONGUE LESION Right 08/27/2024 Performed by Luis Enrique Jennings DO at [facility] EUSTACHIAN TUBE DILATION Bilateral 11/02/2017 Performed by Karthikeyan Lopez MD at [facility] POSTERIOR LAMINECTOMY CERVICAL SINGLE LEVEL / C1 N/A 01/27/2023 Performed by Ajya Barbosa MD at [facility] REMOVAL TUBE EAR Right 06/04/2024 Performed by Mich Verde MD at [facility] TONSILLECTOMY TYMPANOSTOMY TUBE PLACEMENT TYMPANOTOMY WITH PERMANENET VENT TUBE INSERTION. TYMPANOTOMY WITH NONPERMANENT TUBE IN LEFT EAR Bilateral 11/02/2017 Performed by Karthikeyan Lopez MD at [facility] Family History Problem Relation Age of Onset [...] History Narrative Lives alone. 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 Social Drivers of Health Financial Resource Strain: Patient Declined (11/12/2023) Received from [facility] Overall Financial Resource Strain (CARDIA) Difficulty of Paying Living Expenses: Patient declined Food Insecurity: No Food Insecurity (08/20/2024) Hunger Screening Food Insecurity - Worry: Never True Food Insecurity - Inability: Never True Transportation Needs: Patient Declined (11/12/2023) Received from [facility] PRAPARE - Transportation Lack of Transportation (Medical): Patient declined Lack of Transportation (Non-Medical): Patient declined Physical Activity: Patient Declined (11/12/2023) Received from [facility] Exercise Vital Sign Days of Exercise per Week: Patient declined Minutes of Exercise per Session: Patient declined Stress: Not on file Social Connections: Unknown (11/12/2023) Received from [facility] Social Connection and Isolation Panel [NHANES] Frequency of Communication with Friends and Family: Patient declined Frequency of Social Gatherings with Friends and Family: Patient declined Attends Restorationism Services: Not on file Active Member of Clubs or Organizations: Patient declined Attends Club or Organization Meetings: Patient declined Marital Status: Patient declined Interpersonal Safety: Patient Declined (11/12/2023) Received from [facility] Humiliation, Afraid, Rape, and Kick questionnaire Fear [...] to ensure the accuracy of this automated counseling center manager, some errors in counseling center manager may have occurred. documented in this encounter [facility] [employer] 09-11-2024 Instructions Francisco Garcia - 09/11/2024 10:30 AM EST - Reviewed patient's surgical pathology from direct laryngoscopy with biopsy of base of tongue lesion. This showed benign papillomatous neoplasm. - On exam, biopsy site healing well with granulation/exudates from cautery. - Return to ENT in 4-6 weeks if needed to check biopsy site. documented in this encounter [facility] 09-10-2024 History of Present illness Narrative Images [...] 11/02/2017 Performed by Karthikeyan Lopez MD at [facility] APPENDECTOMY 2016 APPLICATION GRAFT PAPER PATCH EAR Right 06/04/2024 Performed by Mich Verde MD at [facility] CRANIOTOMY CHIARI DECOMPRESSION / N/A 01/27/2023 Performed by Ajay Barbosa MD at [facility] CYSTOSCOPY RETROGRADE PYELOGRAM Bilateral 11/30/2022 Performed by Margot Hernandez MD at [facility] DILATION AND CURETTAGE OF UTERUS 07/31/2023 DIRECT LARYNGOSCOPY WITH BIOPSY BASE OF TONGUE LESION Right 08/27/2024 Performed by Luis Enrique Jennings DO at [facility] EUSTACHIAN TUBE DILATION Bilateral 11/02/2017 Performed by Karthikeyan Lopez MD at [facility] POSTERIOR LAMINECTOMY CERVICAL SINGLE LEVEL / C1 N/A 01/27/2023 Performed by Ajay Barbosa MD at [facility] REMOVAL TUBE EAR Right 06/04/2024 Performed by Mich Verde MD at [facility] TONSILLECTOMY TYMPANOSTOMY TUBE PLACEMENT TYMPANOTOMY WITH PERMANENET VENT TUBE INSERTION. TYMPANOTOMY WITH NONPERMANENT TUBE IN LEFT EAR Bilateral 11/02/2017 Performed by Karthikeyan Lopez MD at [facility] SOCIAL HISTORY Social History Tobacco Use Smoking [...] MA 09/10/24 1605 documented in this encounter [facility] 09-10-2024 Instructions Linette Gurrola - 09/10/2024 4:15 PM EST - Microscopic examination was completed in office today. The ears appear to be healing well postoperatively. Cerumen was removed for the bilateral canals. - Continue watchful monitoring. documented in this encounter [facility] 09-10-2024 History of Present illness Narrative [...] other thresholds stable. Reliability: good Speech Audiometry: SRT/BOTTLE HOUSE PUMPER in good agreement WRS: Right Ear: Excellent (100%) Left Ear: Excellent (100%) RECOMMENDATIONS: Follow up with Dr. Mich Verde Retest as needed Patrick Hanley, [facility]-A Finisher Hand documented in this encounter [facility] 09-04-2024 Miscellaneous Notes Called patient and [...] at 1030 am. documented in this encounter [facility] 09-04-2024 Telephone encounter Note Called patient [...] Dr. Jennings on Monday at 1030 am. [facility] 09-03-2024 History of Present illness Narrative To help with acute post op swelling. documented in this encounter [facility] 08-29-2024 Miscellaneous Notes Patient called 08/29 because she needs a return to work note. Patient had a biopsy done on 08/27 and will be going back to work on 08/30. Patient said [facility] Is patient okay to go back to work 08/30/24? As long as she is no longer taking norco, she may return to work. Please provide letter. Thank you. Left a message for the patient informing her that as long as she is no longer taking the Baldwin pain medication she can return to work tomorrow 08/30/24. I will upload this letter to her mychart. Asked her to give the office a call back if she is still taking her Baldwin and we can correct the note for a later date. documented in this encounter [facility] 08-29-2024 Telephone encounter Note Patient called 08/29 because she needs a return to work note. Patient had a biopsy done on 08/27 and will be going back to work on 08/30. Patient said it is ok to send it to her mychart. [facility] 08-29-2024 Telephone encounter Note Is patient okay to go back to work 08/30/24? [facility] 08-29-2024 Telephone encounter Note As long as she is no longer taking norco, she may return to work. Please provide letter. Thank you. [facility] 08-29-2024 Telephone encounter Note Left a message for the patient informing her that as long as she is no longer taking the Baldwin pain medication she can return to work tomorrow 08/30/24. I will upload this letter to her mychart. Asked her to give the office a call back if she is still taking her Baldwin and we can correct the note for a later date. [facility] 08-20-2024 Instructions Formatting of th is note might be different from the original. Your surgery/procedure is scheduled at [facility] on 08/27/2024 at 1245p Arrival Time 1045a [facility] Address: [address] [place] [address], [address] [address] in the Emergency Center Parking lot. Report to the assistant front office manager in the Emergency/Surgery Registration lobby of the hospital. Notify your SURGEON if you develop any illness such as a cold, cough, fever, sore throat, vomiting or are hospitalized between now and your surgery. Please call Pre-Admission Clinic at [phone] if you have any questions prior to surgery. For questions the morning of surgery, call the Pre-op Department at [phone]. Medication Instructions (Do not stop your medications [...] would like to schedule therapy at a [facility] facility, please call [phone] ([phone]). Do not use lotions, creams, powders, perfume, make up, cologne or after-shaves day of surgery. Remove ALL jewelry including wedding rings, body piercings, hair extensions that contain metal, nail citizen of [place], make-up, and contact lens. You may brush your teeth the morning of surgery, but do not swallow the water. Wear your dentures and partial plates to the hospital (no adhesive). Shower the night the before. If applicable, use the CHG (chlorhexidine gluconate) soap or wipes. Please be advised, [facility] has transitioned to a cashless payment system. [...] RIGHTS AND RESPONSIBILITIES As a patient at [facility], you have the right to: Receive medical care and be informed of who is taking care of you Be treated with dignity and respect Have a family member/sales representative livestock of choice and your physician notified of your admission Receive information and actively participate in decisions about your care and treatment Refuse care, treatment and services Decide who may provide your support and speak for you Access cheondoism and spiritual services Participate in ethical issues [...] of hospital charges and payment methods Patient/patient sales representative livestock responsibilities are to: Provide information about health status to facilitate care, treatment and services Follow the treatment, plan, keep appointments and speak up when you do not understand the plan Respect the rights of other patients and healthcare personnel Follow organizational rules and regulations that support quality care and a safe environment Fulfill financial obligations as promptly as possible [facility] 08-20-2024 Miscellaneous Notes Your surgery/procedure is scheduled at [facility] on 08/27/2024 at 1245p Arrival Time 1045a [facility] Address: [address] [place] [address], [facility] Park in the Emergency Center Parking lot. Report to the assistant front office manager in the Emergency/Surgery Registration lobby of the hospital. Notify your SURGEON if you develop any illness such as a cold, cough, fever, sore throat, vomiting or are hospitalized between now and your surgery. Please call Pre-Admission Clinic at [phone] if you have any questions prior to surgery. For questions the morning of surgery, call the Pre-op Department at [phone]. Medication Instructions (Do not stop your medications [...] would like to schedule therapy at a [facility] facility, please call [phone] ([phone]). Do not use lotions, creams, powders, perfume, make up, cologne or after-shaves day of surgery. Remove ALL jewelry including wedding rings, body piercings, hair extensions that contain metal, nail citizen of [place], make-up, and contact lens. You may brush your teeth the morning of surgery, but do not swallow the water. Wear your dentures and partial plates to the hospital (no adhesive). Shower the night the before. If applicable, use the CHG (chlorhexidine gluconate) soap or wipes. Please be advised, [facility] has transitioned to a cashless payment system. [...] RIGHTS AND RESPONSIBILITIES As a patient at [facility], you have the right to: Receive medical care and be informed of who is taking care of you Be treated with dignity and respect Have a family member/sales representative livestock of choice and your physician notified of your admission Receive information and actively participate in decisions about your care and treatment Refuse care, treatment and services Decide who may provide your support and speak for you Access cheondoism and spiritual services Participate in ethical issues [...] of hospital charges and payment methods Patient/patient sales representative livestock responsibilities are to: Provide information about health status to facilitate care, treatment and services Follow the treatment, plan, keep appointments and speak up when you do not understand the plan Respect the rights of other patients and healthcare personnel Follow organizational rules and regulations that support quality care and a safe environment Fulfill financial obligations as promptly as possible documented in this encounter [facility] 08-17-2024 History of Present illness Narrative Flagyl documented in this encounter [facility] 08-13-2024 History of Present illness Narrative [...] for hormone balance. 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 documented in this encounter [facility] 08-07-2024 Miscellaneous Notes Surgery Scheduling Request 08/07/24 Patient: Charis Allen : 2000 Surgical Procedure(s): Direct laryngoscopy With biopsy of right base of tongue lesion Side(s): Right Anesthesia: General Surgery Time: 30 minutes Facility Preference: [facility] Op Destination: Outpatient Preop Anesthesia Appointment?: Yes Lab Testing?: No Medical Clearance Required?: No Does medical clearance include perioperative management of anticoagulants? No When should patient follow up after surgery? 1-[address] Jennings documented in this encounter [id number] 08-07-2024 Telephone encounter Note Surgery Scheduling Request 08/07/24 Patient: Charis Allen : 2000 Surgical Procedure(s): Direct laryngoscopy With biopsy of right base of tongue lesion Side(s): Right Anesthesia: General Surgery Time: 30 minutes Facility Preference: [facility] Post Op Destination: Outpatient Preop Anesthesia Appointment?: Yes Lab Testing?: No Medical Clearance Required?: No Does medical clearance include perioperative management of anticoagulants? No When should patient follow up after surgery? 1-[address] Jennings [id number] Work Phone: 08-07-2024 History of Present illness Narrative Images from the original note were not included. [facility] EAR, NOSE AND THROAT [facility] [address] [place] [phone] SUBJECTIVE: Patient ID (2000): Charis Allen is [...] has allergies but does not have an home hospice rn. She takes Claritin. She takes a [...] 11/02/2017 Performed by Karthikeyan Lopez MD at [facility] APPENDECTOMY 2016 APPLICATION GRAFT PAPER PATCH EAR Right 06/04/2024 Performed by Mich Verde MD at [facility] CRANIOTOMY CHIARI DECOMPRESSION / N/A 01/27/2023 Performed by Ajay Barbosa MD at [facility] CYSTOSCOPY RETROGRADE PYELOGRAM Bilateral 11/30/2022 Performed by Margot Hernandez MD at [facility] DILATION AND CURETTAGE OF UTERUS 07/31/2023 EUSTACHIAN TUBE DILATION Bilateral 11/02/2017 Performed by Karthikeyan Lopez MD at [facility] POSTERIOR LAMINECTOMY CERVICAL SINGLE LEVEL / C1 N/A 01/27/2023 Performed by Ajay Barbosa MD at [facility] REMOVAL TUBE EAR Right 06/04/2024 Performed by Mich Verde MD at [facility] TONSILLECTOMY TYMPANOSTOMY TUBE PLACEMENT TYMPANOTOMY WITH PERMANENET VENT TUBE INSERTION. TYMPANOTOMY WITH NONPERMANENT TUBE IN LEFT EAR Bilateral 11/02/2017 Performed by Karthikeyan Lopez MD at [facility] Family History Problem Relation Age of Onset [...] History Narrative Lives alone. 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 Social Drivers of Health Financial Resource Strain: Patient Declined (11/12/2023) Received from [facility] Overall Financial Resource Strain (CARDIA) Difficulty of Paying Living Expenses: Patient declined Food Insecurity: No Food Insecurity (08/20/2024) Hunger Screening Food Insecurity - Worry: Never True Food Insecurity - Inability: Never True Transportation Needs: Patient Declined (11/12/2023) Received from [facility] PRAPARE - Transportation Lack of Transportation (Medical): Patient declined Lack of Transportation (Non-Medical): Patient declined Physical Activity: Patient Declined (11/12/2023) Received from [facility] Exercise Vital Sign Days of Exercise per Week: Patient declined Minutes of Exercise per Session: Patient declined Stress: Not on file Social Connections: Unknown (11/12/2023) Received from [facility] Social Connection and Isolation Panel [NHANES] Frequency of Communication with Friends and Family: Patient declined Frequency of Social Gatherings with Friends and Family: Patient declined Attends Restorationism Services: Not on file Active Member of Clubs or Organizations: Patient declined Attends Club or Organization Meetings: Patient declined Marital Status: Patient declined Interpersonal Safety: Patient Declined (11/12/2023) Received from [facility] Humiliation, Afraid, Rape, and Kick questionnaire Fear [...] flush 3 mL 3 mL intravenous Q12H [facility] Caden Thomas MD REVIEW OF SYSTEMS: [...] laryngoscopy video with Tiesha. This showed a bvojd-trgr-im-tongue lesion that is possibly a papilloma versus [...] be put on a regimen by an home hospice rn or undergo immunotherapy if indicated. She [...] covered benefit. Patient may call Jamil at [phone] to schedule surgery. - POSTOP INSTRUCTIONS You [...] concerns please do not hesitate to call [phone] Dr. Luis Enrique Jennings Scribe Statement: Scribed for and in the presence of Luis Enrique Jennings DO by Francisco Garcia (olu). Francisco Garcia 08/07/2024 10:33 AM Provider Statement: [...] this chart were generated using voice recognition Pay with a Tweet dictation software. Although every effort was made to ensure the accuracy of this automated counseling center manager, some errors in counseling center manager may have occurred. documented in this encounter [id number] 08-07-2024 Instructions Francisco Garcia - 08/07/2024 10:00 AM EDT - Reviewed patient's CT neck soft tissue. This was unremarkable. - Reviewed patient's previous flexible laryngoscopy video with Tiesha. This showed a rouqw-sxzq-ut-tongue lesion that is possibly a papilloma versus [...] be put on a regimen by an home hospice rn or undergo immunotherapy if indicated. She [...] covered benefit. Patient may call Jamil at [phone] to schedule surgery. - POSTOP INSTRUCTIONS You [...] concerns please do not hesitate to call [phone] [facility] Instructions Olga Thompson MA - 07/25/2024 [...] used in shoes. documented in this encounter [facility] 07-25-2024 Note HNO ID: [id number] Author: ÁNGELA DELGADO DPM Service: ? Author [...] which included preparing to see the patient, fjju-ze-jyug patient care, completing clinical documentation, obtaining and/or reviewing separately obtained history, performing a medically appropriate examination, counseling and educating the patient/family/caregiver, ordering medications, tests and care coordination (not separately reported). Time did not include procedure time. I agree with the Chief Complaint, ROS, and Past Histories independently gathered by the clinical pit crew support worker and the remaining scribed note accurately describes my personal service to the patient. This document has been created with the use of voice recognition technology. It may contain inaccuracies, misspellings, inaccurate syntax or inappropriate word context that escaped review. Ángela Delgado DPM [facility] 07-25-2024 History of Present illness Narrative Service [...] which included preparing to see the patient, [id number] patient care, completing clinical documentation, obtaining and/or reviewing separately obtained history, performing a medically appropriate examination, counseling and educating the patient/family/caregiver, ordering medications, tests and care coordination (not separately reported). Time did not include procedure time. I agree with the Chief Complaint, ROS, and Past Histories independently gathered by the clinical pit crew support worker and the remaining scribed note accurately describes my personal service to the patient. This document has been created with the use of voice recognition technology. It may contain inaccuracies, misspellings, inaccurate syntax or inappropriate word context that escaped review. Ángela Delgado DPM documented in this encounter [facility] 07-17-2024 History of Present illness [...] questions or concerns. documented in this encounter [facility] 07-17-2024 Miscellaneous Notes Returned patient's call. No answer, left message on machine to call back. documented in this encounter [facility] 07-17-2024 Telephone encounter Note Returned patient's call. No answer, left message on machine to call back. [facility] 07-15-2024 History of Present illness Narrative Patient [...] 11/02/2017 Performed by Karthikeyan Lopez MD at [facility] APPENDECTOMY 2016 APPLICATION GRAFT PAPER PATCH EAR Right 06/04/2024 Performed by Mich Verde MD at [facility] CRANIOTOMY CHIARI DECOMPRESSION / N/A 01/27/2023 Performed by Ajay Barbosa MD at [facility] CYSTOSCOPY RETROGRADE PYELOGRAM Bilateral 11/30/2022 Performed by Margot Hernandez MD at [facility] DILATION AND CURETTAGE OF UTERUS 07/31/2023 EUSTACHIAN TUBE DILATION Bilateral 11/02/2017 Performed by Karthikeyan Lopez MD at [facility] POSTERIOR LAMINECTOMY CERVICAL SINGLE LEVEL / C1 N/A 01/27/2023 Performed by Ajay Barbosa MD at [facility] REMOVAL TUBE EAR Right 06/04/2024 Performed by Mich Verde MD at [facility] TONSILLECTOMY TYMPANOSTOMY TUBE PLACEMENT TYMPANOTOMY WITH PERMANENET VENT TUBE INSERTION. TYMPANOTOMY WITH NONPERMANENT TUBE IN LEFT EAR Bilateral 11/02/2017 Performed by Karthikeyan Lopez MD at [facility] SOCIAL HISTORY Social History Tobacco Use [...] of final signature. documented in this encounter [facility] 07-15-2024 Instructions Gm Garcia - 07/15/2024 3:30 PM EDT - Microscopic examination was completed in office today. The ears appear generally healthy. - Continue watchful monitoring. - Follow-up with audiogram . documented in this encounter [facility] 07-03-2024 History of Present illness Narrative Images from the original note were not included. [facility] [address] [facility] [id number] SUBJECTIVE: Patient ID (2002): Charis Allen is [...] 11/02/2017 Performed by Karthikeyan Lopez MD at [facility] APPENDECTOMY 2016 APPLICATION GRAFT PAPER PATCH EAR Right 06/04/2024 Performed by Mich Verde MD at [facility] CRANIOTOMY CHIARI DECOMPRESSION / N/A 01/27/2023 Performed by Ajay Barbosa MD at [facility] CYSTOSCOPY RETROGRADE PYELOGRAM Bilateral 11/30/2022 Performed by Margot Hernandez MD at [facility] DILATION AND CURETTAGE OF UTERUS 07/31/2023 EUSTACHIAN TUBE DILATION Bilateral 11/02/2017 Performed by Karthikeyan Lopez MD at [facility] POSTERIOR LAMINECTOMY CERVICAL SINGLE LEVEL / C1 N/A 01/27/2023 Performed by Ajay Barbosa MD at [facility] REMOVAL TUBE EAR Right 06/04/2024 Performed by Mich Verde MD at [facility] TONSILLECTOMY TYMPANOSTOMY TUBE PLACEMENT TYMPANOTOMY WITH PERMANENET VENT TUBE INSERTION. TYMPANOTOMY WITH NONPERMANENT TUBE IN LEFT EAR Bilateral 11/02/2017 Performed by Karthikeyan Lopez MD at [facility] Family History Problem Relation Age of Onset [...] History Narrative Lives alone. 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 of Health Financial Resource Strain: Patient Declined (11/12/2023) [facility] Overall Financial Resource Strain (CARDIA) Difficulty of Paying Living Expenses: Patient declined Food Insecurity: No Food Insecurity (05/21/2024) Hunger Screening Food Insecurity - Worry: Never True Food Insecurity - Inability: Never True Transportation Needs: Patient Declined (11/12/2023) [facility] PRAPARE - Transportation Lack of Transportation (Medical): Patient declined Lack of Transportation (Non-Medical): Patient declined Physical Activity: Patient Declined (11/12/2023) [facility] [facility] Exercise Vital Sign Days of Exercise per Week: Patient declined Minutes of Exercise per Session: Patient declined Stress: Not on file Social Connections: Unknown (11/12/2023) Received from [facility] Social Connection and Isolation Panel [NHANES] Frequency of Communication with Friends and Family: Patient declined Frequency of Social Gatherings with Friends and Family: Patient declined Attends Restorationism Services: Not on file Active Member of Clubs or Organizations: Patient declined Attends Club or Organization Meetings: Patient declined Marital Status: Patient declined Interpersonal Safety: Patient Declined (11/12/2023) [facility] Humiliation, Afraid, Rape, and Kick questionnaire [...] of tongue with mild asymmetry and right rpji-wx-ykbyus lesion, possible papilloma versus other, erythema of [...] this chart were generated using voice recognition Pay with a Tweet dictation software. Although every effort was made to ensure the accuracy of this automated counseling center manager, some errors in counseling center manager may have occurred. Tiesha Rai PA-C 07/03/24 1707 Tiesha Rai PA-C 07/03/24 1719 documented in this encounter [id number] 07-03-2024 Instructions Tiesha Rai PA-C - 07/03/2024 [...] the throat directly. Should I see a photo mask processor (stomach specialist)? (GI) At some point, you may be referred to a photo mask processor, either for help with diagnosis or to [...] Breads Commercial whole grain or enriched bread, Uzbek bread, hamburger buns, hard or plain rolls, saltines, vanessa crackers, jose toast, Micronesian muffins and bagels. Homemade biscuits, muffins, waffles, [...] adapted from/provided by [facility]. documented in this encounter [facility] 06-17-2024 Miscellaneous Notes Pt lm for refill of concerta DDM [place] documented in this encounter [facility] 06-17-2024 Telephone encounter Note Pt lm for refill of concerta DDM [place] [facility] 05-21-2024 History and physical note PRE-ADMISSION [...] 11/02/2017 Performed by Karthikeyan Lopez MD at [facility] APPENDECTOMY 2016 CRANIOTOMY CHIARI DECOMPRESSION / N/A 01/27/2023 Performed by Ajay Barbosa MD at [facility] CYSTOSCOPY RETROGRADE PYELOGRAM Bilateral 11/30/2022 Performed by Margot Hernandez MD at [facility] DILATION AND CURETTAGE OF UTERUS 07/31/2023 EUSTACHIAN TUBE DILATION Bilateral 11/02/2017 Performed by Karthikeyan Lopez MD at [facility] POSTERIOR LAMINECTOMY CERVICAL SINGLE LEVEL / C1 N/A 01/27/2023 Performed by Ajay Barbosa MD at [facility] TONSILLECTOMY TYMPANOSTOMY TUBE PLACEMENT TYMPANOTOMY WITH PERMANENET VENT TUBE INSERTION. TYMPANOTOMY WITH NONPERMANENT TUBE IN LEFT EAR Bilateral 11/02/2017 Performed by Karthikeyan Lopez MD at [facility] FAMILY HISTORY: Family History Problem Relation Age [...] History Narrative Lives alone. 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 of Health Financial Resource Strain: Patient Declined (11/12/2023) [facility] Overall Financial Resource Strain (CARDIA) Difficulty of Paying Living Expenses: Patient declined Food Insecurity: No Food Insecurity (05/21/2024) Hunger Screening Food Insecurity - Worry: Never True Food Insecurity - Inability: Never True Transportation Needs: Patient Declined (11/12/2023) Received from [facility] [employer] [facility] PRAPARE - Transportation Lack of Transportation (Medical): Patient declined Lack of Transportation (Non-Medical): Patient declined Physical Activity: Patient Declined (11/12/2023) [facility] [employer] [facility] Exercise Vital Sign Days of Exercise per Week: Patient declined Minutes of Exercise per Session: Patient declined Stress: Not on file Social Connections: Unknown (11/12/2023) Received from [facility] Social Connection and Isolation Panel [NHANES] Frequency of Communication with Friends and Family: Patient declined Frequency of Social Gatherings with Friends and Family: Patient declined Attends Restorationism Services: Not on file Active Member of Clubs or Organizations: Patient declined Attends Club or Organization Meetings: Patient declined Marital Status: Patient declined Interpersonal Safety: Patient Declined (11/12/2023) [facility] Humiliation, Afraid, Rape, and Kick questionnaire [...] the most recent lab values available in [facility] at the time of the office visit, [...] Verde on 06/04/2024. JONAS Conte 05/21/24 1354 [facility] 05-21-2024 History and physical note PRE-ADMISSION [...] 11/02/2017 Performed by Karthikeyan Lopez MD at [facility] APPENDECTOMY 2016 CRANIOTOMY CHIARI DECOMPRESSION / N/A 01/27/2023 Performed by Ajya Barbosa MD at [facility] CYSTOSCOPY RETROGRADE PYELOGRAM Bilateral 11/30/2022 Performed by Margot Hernandez MD at [facility] DILATION AND CURETTAGE OF UTERUS 07/31/2023 EUSTACHIAN TUBE DILATION Bilateral 11/02/2017 Performed by Karthikeyan Lopez MD at [facility] POSTERIOR LAMINECTOMY CERVICAL SINGLE LEVEL / C1 N/A 01/27/2023 Performed by Ajay Barbosa MD at [facility] TONSILLECTOMY TYMPANOSTOMY TUBE PLACEMENT TYMPANOTOMY WITH PERMANENET VENT TUBE INSERTION. TYMPANOTOMY WITH NONPERMANENT TUBE IN LEFT EAR Bilateral 11/02/2017 Performed by Karthikeyan Lopez MD at [facility] FAMILY HISTORY: Family History Problem Relation Age [...] History Narrative Lives alone. 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 of Health Financial Resource Strain: Patient Declined (11/12/2023) Received from [facility] Overall Financial Resource Strain (CARDIA) Difficulty of Paying Living Expenses: Patient declined Food Insecurity: No Food Insecurity (05/21/2024) Hunger Screening Food Insecurity - Worry: Never True Food Insecurity - Inability: Never True Transportation Needs: Patient Declined (11/12/2023) Received from [facility] PRAPARE - Transportation Lack of Transportation (Medical): Patient declined Lack of Transportation (Non-Medical): Patient declined Physical Activity: Patient Declined (11/12/2023) Received from [facility] Exercise Vital Sign Days of Exercise per Week: Patient declined Minutes of Exercise per Session: Patient declined Stress: Not on file Social Connections: Unknown (11/12/2023) Received from [facility] Social Connection and Isolation Panel [NHANES] Frequency of Communication with Friends and Family: Patient declined Frequency of Social Gatherings with Friends and Family: Patient declined Attends Restorationism Services: Not on file Active Member of Clubs or Organizations: Patient declined Attends Club or Organization Meetings: Patient declined Marital Status: Patient declined Interpersonal Safety: Patient Declined (11/12/2023) Received from [facility] Humiliation, Afraid, Rape, and Kick questionnaire Fear [...] the most recent lab values available in [facility] at the time of the office visit, [...] Dr. Verde on 06/04/2024. JONAS Conte 05/21/24 [id number] documented in this encounter [facility] 05-21-2024 Instructions Di Briscoe RN - 05/21/2024 1:15 PM EDT Your surgery/procedure is scheduled at [facility] on June 04, 2024 at 9:00 am Arrival Time 7:00 am [facility] Address: [address] [place] [address]. [address] in [address] Parking lot located on [facility]. Report to the Entrance B. Check in at the information desk the surgery. The waiting room located on the second floor. If you have any questions prior to surgery, please call Pre-Admission Clinic at [phone] between 7:30 am and 4:30 pm Monday through Monday. If you have questions the morning of surgery, please call the Pre-op Department at [phone]. Notify your SURGEON if you develop any [...] piercings ,hair extensions that contain metal, nail citizen of [place], make-up, and contact lens. You may brush [...] RIGHTS AND RESPONSIBILITIES As a patient at [facility], you have the right to: Receive medical care and be informed of who is taking care of you Be treated with dignity and respect Have a family member/sales representative livestock of choice and your physician notified of your admission Receive information and actively participate in decisions about your care and treatment Refuse care, treatment and services Decide who may provide your support and speak for you Access cheondoism and spiritual services Participate in ethical issues [...] of hospital charges and payment methods Patient/patient sales representative livestock responsibilities are to: Provide information about health status to facilitate care, treatment and services Follow the treatment, plan, keep appointments and speak up when you do not understand the plan Respect the rights of other patients and healthcare personnel Follow organizational rules and regulations that support quality care and a safe environment Fulfill financial obligations as promptly as possible documented in this encounter [facility] 03-18-2024 History of Present illness Narrative [...] 11/02/2017 Performed by Karthikeyan Lopez MD at [facility] APPENDECTOMY age 15 CRANIOTOMY CHIARI DECOMPRESSION / N/A 01/27/2023 Performed by Ajay Barbosa MD at [facility] CYSTOSCOPY RETROGRADE PYELOGRAM Bilateral 11/30/2022 Performed by Margot Hernandez MD at [facility] DILATION AND CURETTAGE OF UTERUS 07/31/2023 EUSTACHIAN TUBE DILATION Bilateral 11/02/2017 Performed by Karthikeyan Lopez MD at [facility] POSTERIOR LAMINECTOMY CERVICAL SINGLE LEVEL / C1 N/A 01/27/2023 Performed by Ajay Barbosa MD at [facility] TONSILLECTOMY TYMPANOSTOMY TUBE PLACEMENT TYMPANOTOMY WITH PERMANENET VENT TUBE INSERTION. TYMPANOTOMY WITH NONPERMANENT TUBE IN LEFT EAR Bilateral 11/02/2017 Performed by Karthikeyan Lopez MD at [facility] SOCIAL HISTORY Social History Tobacco Use Smoking [...] MA 03/18/24 1424 documented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 rules restrict any use of the information to criminally investigate or prosecute any alcohol or drug abuse patient.[facility] CenterIn the event this information is protected by the Federal Confidentiality of Alcohol and Drug Abuse Patient Records regulations: The Federal rules restrict any use of the information to criminally investigate or prosecute any alcohol or drug abuse patient.[facility] CenterIn the event this information is protected by the Federal Confidentiality of Alcohol and Drug Abuse Patient Records regulations: The Federal rules restrict any use of the information to criminally investigate or prosecute any alcohol or drug abuse patient.[facility] CenterIn the event this information is protected by the Federal Confidentiality of Alcohol and Drug Abuse Patient Records regulations: The Federal rules restrict any use of the information to criminally investigate or prosecute any alcohol or drug abuse patient.[facility] CenterIn the event this information is protected by the Federal Confidentiality of Alcohol and Drug Abuse Patient Records regulations: The Federal rules restrict any use of the information to criminally investigate or prosecute any alcohol or drug abuse patient.[facility] CenterIn the event this information is protected by the Federal Confidentiality of Alcohol and Drug Abuse Patient Records regulations: The Federal rules restrict any use of the information to criminally investigate or prosecute any alcohol or drug abuse patient.[facility] CenterIn the event this information is protected by the Federal Confidentiality of Alcohol and Drug Abuse Patient Records regulations: The Federal rules restrict any use of the information to criminally investigate or prosecute any alcohol or drug abuse patient.[facility] CenterIn the event this information is protected by the Federal Confidentiality of Alcohol and Drug Abuse Patient Records regulations: The Federal rules restrict any use of the information to criminally investigate or prosecute any alcohol or drug abuse patient.[facility] CenterIn the event this information is protected by the Federal Confidentiality of Alcohol and Drug Abuse Patient Records regulations: The Federal rules restrict any use of the information to criminally investigate or prosecute any alcohol or drug abuse patient.[facility] CenterIn the event this information is protected by the Federal Confidentiality of Alcohol and Drug Abuse Patient Records regulations: The Federal rules restrict any use of the information to criminally investigate or prosecute any alcohol or drug abuse patient.[facility] CenterIn the event this information is protected by the Federal Confidentiality of Alcohol and Drug Abuse Patient Records regulations: The Federal rules restrict any use of the information to criminally investigate or prosecute any alcohol or drug abuse patient.[facility] CenterIn the event this information is protected by the Federal Confidentiality of Alcohol and Drug Abuse Patient Records regulations: The Federal rules restrict any use of the information to criminally investigate or prosecute any alcohol or drug abuse patient.[facility] CenterIn the event this information is protected by the Federal Confidentiality of Alcohol and Drug Abuse Patient Records regulations: The Federal rules restrict any use of the information to criminally investigate or prosecute any alcohol or drug abuse patient.[facility] CenterIn the event this information is protected by the Federal Confidentiality of Alcohol and Drug Abuse Patient Records regulations: The Federal rules restrict any use of the information to criminally investigate or prosecute any alcohol or drug abuse patient.[facility] CenterIn the event this information is protected by the Federal Confidentiality of Alcohol and Drug Abuse Patient Records regulations: The Federal rules restrict any use of the information to criminally investigate or prosecute any alcohol or drug abuse patient.[facility] CenterIn the event this information is protected by the Federal Confidentiality of Alcohol and Drug Abuse Patient Records regulations: The Federal rules restrict any use of the information to criminally investigate or prosecute any alcohol or drug abuse patient.[facility] CenterIn the event this information is protected by the Federal Confidentiality of Alcohol and Drug Abuse Patient Records regulations: The Federal rules restrict any use of the information to criminally investigate or prosecute any alcohol or drug abuse patient.[facility] CenterIn the event this information is protected by the Federal Confidentiality of Alcohol and Drug Abuse Patient Records regulations: The Federal rules restrict any use of the information to criminally investigate or prosecute any alcohol or drug abuse patient.[facility] CenterIn the event this information is protected by the Federal Confidentiality of Alcohol and Drug Abuse Patient Records regulations: The Federal rules restrict any use of the information to criminally investigate or prosecute any alcohol or drug abuse patient.[facility] CenterIn the event this information is protected by the Federal Confidentiality of Alcohol and Drug Abuse Patient Records regulations: The Federal rules restrict any use of the information to criminally investigate or prosecute any alcohol or drug abuse patient.[facility] CenterIn the event this information is protected by the Federal Confidentiality of Alcohol and Drug Abuse Patient Records regulations: The Federal rules restrict any use of the information to criminally investigate or prosecute any alcohol or drug abuse patient.[facility] CenterIn the event this information is protected by the Federal Confidentiality of Alcohol and Drug Abuse Patient Records regulations: The Federal rules restrict any use of the information to criminally investigate or prosecute any alcohol or drug abuse patient.[facility] CenterIn the event this information is protected by the Federal Confidentiality of Alcohol and Drug Abuse Patient Records regulations: The Federal rules restrict any use of the information to criminally investigate or prosecute any alcohol or drug abuse patient.[facility] CenterIn the event this information is protected by the Federal Confidentiality of Alcohol and Drug Abuse Patient Records regulations: The Federal rules restrict any use of the information to criminally investigate or prosecute any alcohol or drug abuse patient.[facility] CenterIn the event this information is protected by the Federal Confidentiality of Alcohol and Drug Abuse Patient Records regulations: The Federal rules restrict any use of the information to criminally investigate or prosecute any alcohol or drug abuse patient.[facility] CenterIn the event this information is protected by the Federal Confidentiality of Alcohol and Drug Abuse Patient Records regulations: The Federal rules restrict any use of the information to criminally investigate or prosecute any alcohol or drug abuse patient.[facility] CenterIn the event this information is protected by the Federal Confidentiality of Alcohol and Drug Abuse Patient Records regulations: The Federal rules restrict any use of the information to criminally investigate or prosecute any alcohol or drug abuse patient.[facility] CenterIn the event this information is protected by the Federal Confidentiality of Alcohol and Drug Abuse Patient Records regulations: The Federal rules restrict any use of the information to criminally investigate or prosecute any alcohol or drug abuse patient.[facility] CenterIn the event this information is protected by the Federal Confidentiality of Alcohol and Drug Abuse Patient Records regulations: The Federal rules restrict any use of the information to criminally investigate or prosecute any alcohol or drug abuse patient.[facility] CenterIn the event this information is protected by the Federal Confidentiality of Alcohol and Drug Abuse Patient Records regulations: The Federal rules restrict any use of the information to criminally investigate or prosecute any alcohol or drug abuse patient.[facility] CenterIn the event this information is protected by the Federal Confidentiality of Alcohol and Drug Abuse Patient Records regulations: The Federal rules restrict any use of the information to criminally investigate or prosecute any alcohol or drug abuse patient.[facility] CenterIn the event this information is protected by the Federal Confidentiality of Alcohol and Drug Abuse Patient Records regulations: The Federal rules restrict any use of the information to criminally investigate or prosecute any alcohol or drug abuse patient.[facility] CenterIn the event this information is protected by the Federal Confidentiality of Alcohol and Drug Abuse Patient Records regulations: The Federal rules restrict any use of the information to criminally investigate or prosecute any alcohol or drug abuse patient.[facility] CenterIn the event this information is protected by the Federal Confidentiality of Alcohol and Drug Abuse Patient Records regulations: The Federal rules restrict any use of the information to criminally investigate or prosecute any alcohol or drug abuse patient.[facility] Reason for Visit (unrecogniz ed section and content) Reason Comments Radiology MRI Reason Comments Established Patient at least 15/30 Reason Onset Date Comments Refill Request 03/16/2022 [...] HIGH MDM 60-74 MINUTES Dianna Villa PA-C [address] [id number] Referral ID Status Reason Start Date Expiration Date V isits Requested Visits Authorized [id number] Closed PCP Requested Referral 10/13/2022 10/13/2023 1 [...] STEM W/O W/CONTRAST MATERIAL Samples, MD Sreekanth [address] [place] [address] Mr Imaging [id number] Referral ID Status Reason Start Date Expiration Date V isits Requested Visits Authorized [id number] Closed Auto-Generate d Referral 2022 11/17/2023 1 1 Specialty Diagnoses / Procedures Referred By Contac t Referred To Contact MR IMAGING Diagnoses Thunderclap headache Procedures MRI BRAIN WO/W IVCON MRI BRAIN BRAIN STEM W/O W/CONTRAST MATERIAL Samples, MD Sreekanth [address] [place] [address] [place] [id number] Referral ID Status Reason Start Date Expiration Date V isits Requested Visits Authorized [id number] Closed Auto-Generate d Referral 12/22/2021 10/08/2022 1 [...] Comments Refill Request 01/07/2025 Reason Comments Dizziness [place] light headed at work. Was told her BS was low and her bp was high. Hx of elevated bp. Reason Onset Date Comments Med Refill 01/15/2025 Reason Onset Date Comments Med Refill 02/15/2025 Reason Comments Med Refill Reason Comments Menstrual Problem Patient present for menses issues. Patient also had complaints of urinary irritation. Clean Catch specimen taken. LMP: 06/02/25 Reason Comments ADHD Reason Comments Initial Visit Nurse Visit Care Teams (unrecognized sec tion and content) Game Designer/Creative Director Relationship Specialty Start Date End Date Kerry Jain RD [address] [place] [phone] Nutrition 04/04/23 Game Designer/Creative Director Relationship Specialty Start Date End Date Kerry Jain RD [address] [place] [address] [phone] Nutrition 04/04/23 Game Designer/Creative Director Relationship Specialty Start Date End Date Kerry Jain RD [address] [place] [address] [phone] Nutrition 04/04/23 Game Designer/Creative Director Relationship Specialty Start Date End Date Kerry Jain RD [address] [place] [address] [phone] Nutrition 04/04/23 Game Designer/Creative Director Relationship Specialty Start Date End Date Kerry Jain RD [address] [place] [address] [phone] Nutrition 04/04/23 Game Designer/Creative Director Relationship Specialty Start Date End Date Kerry Jain RD [address] [place] [address] [phone] Nutrition 04/04/23 Team Status: Active Member Role Status Dates Katie Thapa DO Primary Care Provider Active Team Status: Inactive Member Role Status Dates Katie Thapa DO Primary Care Provider Active Jona Vann MD Attending Provider Active Game Designer/Creative Director Relationship Specialty Start Date End Date Kerry Jain IVET [address] [place] [address] [phone] Nutrition 04/04/23 Team Status: Inactive Member Role [...] Provider Active St art: November 08, 2023 Game Designer/Creative Director Relationship Specialty Start Date End Date Kerry Jain RD [address] [place] [address] [phone] Nutrition 04/04/23 Game Designer/Creative Director Relationship Specialty Start Date End Date Kerry Jain RD [address] [place] [address] Nutrition 04/04/23 Team Status: Inactive Member Role Status Dates Katie Thapa DO Primary Care Provider Active Start: June 27, 2024 End: June 28, 2024 Yung Nichols Jr, MD Emergency Provider Active Start: June 27, 2024 End: June 28, 2024 Game Designer/Creative Director Relationship Specialty Start Date End Date Anil Thapa DO [address] [place] [address] PCP - General Family Medicine 02/14/23 Game Designer/Creative Director Relationship Specialty Start Date End Date Anil Thapa DO [address] [place] [address] PCP - General Family Medicine 02/14/23 Game Designer/Creative Director Relationship Specialty Start Date End Date Anil Thapa DO [address] [place] [address] PCP - General Family Medicine 02/14/23 Game Designer/Creative Director Relationship Specialty Start Date End Date Anil Thapa DO [address] [place] [address] PCP - General Family Medicine 02/14/23 Game Designer/Creative Director Relationship Specialty Start Date End Date Crtali-Jaxon Kerry, IVET [address] [place], [place] [phone] [facility] 04/04/23 Game Designer/Creative Director Relationship Specialty Start Date End Date Anil Thapa DO [address] [place] [address] PCP - General Family Medicine 02/14/23 Game Designer/Creative Director Relationship Specialty Start Date End Date Anil Thapa DO [address] [place] [address] PCP - General Family Medicine 02/14/23 Game Designer/Creative Director Relationship Specialty Start Date End Date Anil Thapa Jr., DO PCP - General Family Medicine 09/23/23 Game Designer/Creative Director Relationship Specialty Start Date End Date Anil Thapa DO [address] [place] [address] PCP - General Family Medicine 02/14/23 Game Designer/Creative Director Relationship Specialty Start Date End Date Anil Thapa DO [address] [place] [address] PCP - General Family Medicine 02/14/23 Game Designer/Creative Director Relationship Specialty Start Date End Date Anil Thapa DO [address] [place] [address] PCP - General Family Medicine 10/01/23 Game Designer/Creative Director Relationship Specialty Start Date End Date Anil Thapa Jr., DO [address] [place] [address] PCP - General Family Medicine 09/23/23 Game Designer/Creative Director Relationship Specialty Start Date End Date Anil Thapa, DO [address] [place] [address] PCP - General Family Medicine 02/14/23 Game Designer/Creative Director Relationship Specialty Start Date End Date Anil Thapa Jr., DO [address] [place] [address] PCP - General Family Medicine 09/23/23 Game Designer/Creative Director Relationship Specialty Start Date End Date Anil Thapa Jr., DO [address] [place] [address] PCP - General Family Medicine 09/23/23 Game Designer/Creative Director Relationship Specialty Start Date End Date Anil Thapa Jr., DO [address] [place] [address] PCP - General Family Medicine 09/23/23 Game Designer/Creative Director Relationship Specialty Start Date End Date Anil Thapa Jr., DO [address] [place] [address] PCP - General Family Medicine 09/23/23 Game Designer/Creative Director Relationship Specialty Start Date End Date Anil Thapa Jr., DO PCP - General Family Medicine 09/23/23 Game Designer/Creative Director Relationship Specialty Start Date End Date Anil Thapa Jr., DO PCP - General Family Medicine 09/23/23 Game Designer/Creative Director Relationship Specialty Start Date End Date Anil Thapa Jr., DO PCP - General Family Medicine 09/23/23 Game Designer/Creative Director Relationship Specialty Start Date End Date Anil Thapa Jr., DO PCP - General Family Medicine 09/23/23 Game Designer/Creative Director Relationship Specialty Start Date End Date Anil Thapa Jr., DO PCP - General Family Medicine 09/23/23 Game Designer/Creative Director Relationship Specialty Start Date End Date Anil Thapa Jr., DO PCP - General Family Medicine 09/23/23 Game Designer/Creative Director Relationship Specialty Start Date End Date Anil Thapa Jr., DO PCP - General Family Medicine 09/23/23 Game Designer/Creative Director Relationship Specialty Start Date End Date Anil Thapa DO [address] [place] [address] PCP - General Family Medicine 10/01/23 Game Designer/Creative Director Relationship Specialty Start Date End Date Kerry Butler RD [address] [phone] Nutrition 04/04/23 Game Designer/Creative Director Relationship Specialty Start Date End Date [address] [phone] Nutrition 04/04/23 Game Designer/Creative Director Relationship Specialty Start Date End Date Anil Thapa DO [address] [place] [address] PCP - General Family Medicine 10/01/23 Game Designer/Creative Director Relationship Specialty Start Date End Date Anil Thapa DO [address] [place] [address] PCP - General Family Medicine 02/14/23 Team Status: Inactive Member Role Status Dates Katie Thapa DO Primary Care Provider Active Start: February 18, 2025 End: February 18, 2025 Yaritza Bauer APRN Emergency Provider Active Start: February 18, 2025 End: February 18, 2025 Game Designer/Creative Director Relationship Specialty Start Date End Date Anil Thapa DO [address] [place] [address] PCP - General Family Medicine 10/01/23 Game Designer/Creative Director Relationship Specialty Start Date End Date Anil Thapa Jr., DO [address] [place] [address] PCP - General Family Medicine 02/26/25 Game Designer/Creative Director Relationship Specialty Start Date End Date Anil Thapa DO [address] [place] [address] PCP - General Family Medicine 02/14/23 Team Status: Inactive Member Role Status Dates Katie Thapa DO Primary Care Provider Active Start: April 17, 2025 End: April 17, 2025 Chris White MD Attending Provider Active St art: April 17, 2025 End: April 17, 2025 Game Designer/Creative Director Relationship Specialty Start Date End Date Anil Thapa DO [address] [place] [address] PCP - General Family Medicine 02/14/23 Game Designer/Creative Director Relationship Specialty Start Date End Date Anil Thapa DO [address] [place] [address] PCP - General Family Medicine 02/14/23 Game Designer/Creative Director Relationship Specialty Start Date End Date Anil Thapa DO [address] [place] [address] PCP - General Family Medicine 02/14/23 Game Designer/Creative Director Relationship Specialty Start Date End Date Anil Thapa DO [address] [place] [address] PCP - General Family Medicine 02/14/23 Game Designer/Creative Director Relationship Specialty Start Date End Date Anil Thapa Jr., DO [address] [place] [address] PCP - General Family Medicine 02/26/25 Game Designer/Creative Director Relationship Specialty Start Date End Date Anil Thapa DO [address] [place] [address] PCP - General Family Medicine 02/14/23 Game Designer/Creative Director Relationship Specialty Start Date End Date Anil Thapa DO [address] [place] [address] PCP - General Family Medicine 02/14/23 Game Designer/Creative Director Relationship Specialty Start Date End Date Anil Thapa DO [address] [place] [address] PCP - General Family Medicine 02/14/23 Goals [...] BE BASED ON THE PRIMARY CLINICAL RECORDS. [employer] [facility]. provides no warranty or guarantee of the accuracy or completeness of information in this document.
--- OUTSIDE RECORDS SUMMARY | 2025-07-19 21:45 | XMS_ITS | Encounter Summary ---
Author Organization [facility] Address [facility] [place] [address] Care Team Providers Care Armhole Baster Hand Name Role Phone Luke Kerry COONEY Unavailable [phone] Jona Henley MD Unavailable [phone] Source Comments In the event this information is protected by the Federal Confidentiality of Alcohol and Drug AbusePatient Records regulations: The Federal rules restrict any use of the information to criminally investigate or prosecute any alcohol or drug abuse patient.[facility] Encounter Details Date Type Department Care Team (Late st Contact Info) Description 11/18/2024 Patient Msg Dermatology [address] [place] [address] Mary Ann Ma MD [address] [place] [address] Appointment Request Social History Tobacco [...] is lower risk 7 08/16/2023 Data from: https://www.neighborhoodatlas.medicine.[facility]/. Last address used for calculation 26 [...] on filedocumented in this encounter Care Teams Armhole Baster Hand Relationship Specialty Start Date End Date Crtalic-Kerry Coates RD [address] [address] Nutrition 04/04/23 Jona Henley MD [address] [facility] [address] [place] [address] Referring Management Department Chair 06/11/25 documented as of this encounter
--- OUTSIDE RECORDS SUMMARY | 2025-07-19 21:45 | XMS_ITS | Clinical Summary ---
Author Organization [facility] Address [address] [place] [address] Care Team Providers Care Emergency Management Coordinator Name Role Phone Pete Thapa DO Primary Care Provider [phone] Allergies Active Allergy Reactions Criticality Noted Date [...] due to Chiari malformation 120 capsule 2 06/10/20 25 Active Additional Information Patient not taking.Reported on 07/18/2025 clindamycin (Cleocin T) 1 % external solutionIndicatio ns:Acne vulgaris Apply topically in the morning and before bedtime. APPLY TO AFFECTED AREAS ON FACE ONCE A DAY. 30 mL 3 06/13/20 25 Active Additional Information Patient not taking.Reported on 07/18/2025 methylphenidate ER (Concerta) 18 MG CR tabletIndications :Attention deficit hyperactivity disorder (ADHD), combined type Take 1 tablet (18 mg) by mouth in the morning. Do not crush, chew, or split. 30 tablet 06/13/20 25 Active Additional Information Patient not taking.Reported on 07/18/2025 Vit-Fe Fumarate-FA ( Vitamins) 28-0.8 MG tabletIndications : confirmed by positive blood test ([facility]) Take 1 tablet by mouth Daily 30 tablet 11 07/03/20 25 026 Active ondansetron (Zofran) 4 MG tabletIndications :Nausea Take 1 tablet (4 mg) by mouth 2 (two) times a day as needed for nausea or vomiting 20 tablet 07/14/20 25 025 Active cephalexin (Keflex) 500 MG capsuleIndication s:Vaginal burning,Vaginal irritation,Vagina l itching Take 1 capsule (500 mg) by mouth in the morning and 1 capsule (500 mg) at noon and 1 capsule (500 mg) in the evening and 1 capsule (500 mg) before bedtime. Do all this for 10 days. 40 capsule 07/15/20 25 025 Active nitrofurantoin, macrocrystal-mono hydrate, (Macrobid) 100 MG capsuleIndication s:Urinary tract infection without hematuria, site unspecified Take 1 capsule (100 mg) by mouth in the morning and 1 capsule (100 mg) before bedtime. Do all this for 7 days. 14 capsule 06/13/20 25 025 Active Problems Problem Noted Date Diagnosed Date Miscarriage ([facility]) 02/26/2025 Depression 06/29/2023 Leukopenia 06/29/2023 Menorrhagia with [...] (06/29/2023): Added automatically from request for surgery [id number] Right lower quadrant abdominal pain 11/23/2022 Overview (06/29/2023): Added automatically from request for surgery [id number] Tinnitus, right ear 09/15/2022 Nausea and vomiting [...] Did seem to help. Rxed by psychiatrist. Estimated Date of Delivery Comme nts Yes 03/07/2026 Based on last me nstrual period of 05/31/2025 Resolved Problems Problem Noted Date Diagnosed Date Resolved Date Chiari syndrome 12/27/2022 07/10/2023 Overview (06/29/2023): Added automatically from request for surgery [id number] Encounters Date Type Department Care Team Description 07/18/2025 10:30 AM EDT Initial [facility] [place] [facility] [address] [place] [address] [place]: 6w6d 07/18/2025 Results Follow-Up [facility] [place] [facility] [address] [place] [address] Jona Henley MD Urine culture, Urine Culture Clean Catch Reflex 07/18/2025 Travel 07/17/2025 Clinisync Result Encounter [facility] External Department Unsolicited Jona Henley MD 07/15/2025 Orders Only [facility] External Department Unsolicited Jona Henley MD 07/14/2025 Orders Only [facility] [place] [facility] [address] [place] [address] Jona Henley MD Nausea (Primary Dx); examination or test, unconfirmed 07/14/2025 Telephone [facility] [place] [facility] [address] [place] [address] Jessy Barcenas LPN 07/05/2025 Clinisync Result Encounter [facility] External Department Unsolicited Provider, Generic External Data 07/03/2025 Clinisync Result Encounter [facility] External Department Unsolicited Provider, Generic External Data 06/16/2025 Results Follow-Up [facility] [place] [facility] [address] [place] [address] Jona Henley MD METHYLENETETRAHYDROFOLATE REDUCTASE (MTHFR) THERMOLABILS 06/13/2025 10:40 AM EDT Office Visit [facility] [address] [place] [address] Pete Thapa DO Major depressive disorder, single episode, mild ; Acne vulgaris; Attention deficit hyperactivity disorder (ADHD), combined type 06/13/2025 Bamboo flowsheet [facility] [address] [place] [address] Pete Thapa DO 06/13/2025 Travel 06/11/2025 Orders Only [facility] [place] [facility] [address] [place] [address] Jona Henley MD Urinary tract infection without hematuria, site unspecified (Primary Dx) 06/11/2025 Travel 06/11/2025 Results Follow-Up [facility] [address] [place] [address] Jona Henley MD Iron and TIBC, CBC and differential, Ferritin, Additional followed-up results: 4 06/10/2025 8:45 AM EDT Office Visit [facility] [address] [place] [address] Jona Henley MD Chiari malformation type I (HCC) (Primary Dx); Amenorrhea; Menorrhagia with irregular cycle; Excessive bleeding in premenopausal period; History of miscarriage; Vaginal burning; Vaginal itching; Vaginal irritation 06/10/2025 Orders Only [facility] External Department Unsolicited Jona Henley MD 06/10/2025 Travel 06/06/2025 8:45 AM EDT Ancillary Procedure [facility] [address] [place] [address] Menorrhagia with regular cycle; Dysmenorrhea 06/06/2025 Travel 05/07/2025 Refill [facility] [address] [place] [address] Pete Thapa DO Attention deficit hyperactivity disorder (ADHD), combined type from Last 3 Months Immunizations Immunization Administration [...] Maternal Grandfather No Known Problems Maternal Grandmother Asthma Mother Leukemia Paternal Grandfather Breast cancer Paternal [...] often do you attend chur ch or mandaen services? 1 to 4 times per year 06/11/2025 Do you belong to any clubs o r organizations such as mormonism groups, unions, fraternal or athletic groups, or [...] Recorded Patient Health Questionnaire-2 Score 0 06/13/2025 [facility] - Occupational Stress Questionnaire Answer [...] things needed for daily living? No 06/11/2025 [place] Depression Scale Answer Date Recorded [place] Depression Scale Total 0 08/10/2023 The thought [...] any time in the past 12 m [facility], were you homeless or living in a [facility] (including now)? No 06/11/2025 Estimated Date of [...] [address] [place] [phone] 08/18/2025 12:45 PM EST Initial [facility] [place] [facility] [address] [place] [address] Jona Henley MD [address] [place] [address] Health Maintenance Due Date Last Done Comments Influenza Vaccine Completed 07/05/2025, , 06/23/2023, Additional history exists Goals Goal Patient Goal Type Associated Problems Recent Progress Patient-Stated? Author Reminders Care Plan OB Reminders No Laure Dumont RN Procedures Procedure Name Priority Date/Time Associated Diagnosis Comments [facility] PREG QUANT HCG Routine 07/17/2025 4:30 PM EDT URINE CULTURE CLEAN CATCH REFLEX Routine 07/15/2025 12:00 AM EDT CULTURE, URINE, ROUTINE Routine 07/15/20 12:00 AM EDT [facility] PREG QUANT HCG Routine 07/05/2025 10:14 AM EDT [facility] PREG QUANT HCG Routine 07/03/2025 9:51 [...] AM EDT Menorrhagia with regular cycle Dysmenorrhea from Last 3 Months Results * [facility] PREG QUANT HCG (07/17/2025 4:30 PM EDT) Only the most recent of3 resultswithin the time period is included. HCG QUANTITATIVE 74,404 mIU/mL [facility] Comment: 5-50 0.2-1 WEEK 50-500 1-2 WEEKS 100-5,000 2-3 WEEKS 500-10,000 3-4 WEEKS 1,000-50,000 4-5 WEEKS 10,000-100,000 5-6 WEEKS 15,000-200,000 6-8 WEEKS 10,000-100,000 2-3 MONTHS 07/17/2025 4:30 PM EDT 07/17/2025 4:36 PM EDT Narrative [facility] - 07/17/2025 5:27 PM EDT Generic External Data Provider [facility] F [facility] * (ABNORMAL) Urine Culture Clean Catch Reflex (07/15/2025 12:00 AM EDT) Only the most recent of2 resultswithin the time period is included. Ur Cult 1 Enterococcus faecalis(A) [facility] Comment: Enterococci susceptible to penicillin are predictably susceptible to ampicillin, amoxicillin, ampicillin-sulbactam, amoxicillin-clavulanate, and piperacillin-tazobactam for wxi-mekr-nccyywzov producing enterococci. (CLSI 2018) For Enterococcus species, aminoglycosides (except for high-level resistance screening), cephalosporins, clindamycin, and trimethoprim-sulfamethoxazole are not effective clinically. (CLSI, C646-C93, 2016) Note: this isolate is vancomycin-susceptible. This [...] - 07/18/2025 5:07 PM EDT Performed at: [address] [id number] Oysterman: Roland Martinez PhD, Phone: [phone] us Jona Henley MD LAB URINE ORDERABLES Final Res ult [facility] * (ABNORMAL) Urine culture (07/15/2025 12:00 AM EDT) Only the most recent of2 resultswithin the time period is included. Urine Cult Rt Status Final report(A) [facility] 07/15/2025 07/15/2025 Comment:URINE Narrative [facility] - 07/18/2025 5:07 PM EDT Performed at: [address] [place] [id number] Oysterman: Roland Martinez PhD, Phone: [phone] us Jona Henley MD LAB MICROBIOLOGY - GENERAL ORD ERABLES Final Result [facility] * METHYLENETETRAHYDROFOLATE REDUCTASE (MTHFR) THERMOLABILS (06/10/2025 10:17 AM EDT) MTHFR, DNA ANALYSIS Comment [facility] Comment: Result: c.665C>T (p. [id number]), legacy name: [id number] - Not Detected c.1286A>C (p. [id number]), legacy name: [id number] - Not Detected Interpretation: This result is [...] that can decrease enzyme activity; c.665C>T (p. [id number]), legacy name C677T, and c.1286A>C (p. [id number]), legacy name [id number]. These variants do not independently increase risk [...] to limited evidence of clinical utility (PMID: 63641390). Comments: Genetic Coordinators are available for health care providers to discuss results at [phone]). Test Details: Variants Analyzed: c.665C>T (p. [id number]), legacy name: C677T and c.1286A>C (p. [id number]), legacy name: [id number] Methods/Limitations: DNA analysis of the MTHFR gene [...] developed and its performance characteristics determined by [facility]. It has not been cleared or approved by the Food and Drug Administration. References: Mila SE, Homer CJ, Kelsey HUFFMAN. ACMG Practice Guideline: lack of evidence for MTHFR polymorphism testing. Jennyfer Med. 2012;15(2):153-6. doi: 10.1038/gim.2012.165. Epub 2012Oct 11. PMID: 67245904. [place] [employer]stetricians and Gynecologists' Committee on Practice Bulletins-Obstetrics. ACOG Practice Bulletin No. 197: Inherited Thrombophilias in . Obstet Gynecol. 2018 Apr;132(1):e18-e34. doi: 10.1097/AOG.8695367620176861. Erratum in: Obstet Gynecol. 2018 Jul;132(4):1069. PMID: 69464415. REVIEWED BY: Comment [facility] Comment: Technical Component performed at [facility] RT Professional Component performed by: Rohit Caballero, PhD, [facility] [id number], [facility], [address] [facility] [address] 06/10/2025 10:1 7 AM EDT 06/10/2025 Narrative [facility] - 06/16/2025 10:07 AM EDT Performed at: - [facility] RT [address], [facility], [place] [id number] Oysterman: Madyson Gillette [facility], Phone: [phone] us Jona Henley MD LAB BLOOD ORDERABLES Final Res ult [facility] * Iron and TIBC (06/10/2025 10:16 AM EDT) Iron Bind.Cap.(TIBC) 336 250 - 450 ug/dL [facility] UIBC 213 131 - 425 ug/dL [facility] Iron 123 27 - 159 ug/dL [facility] Iron Saturation 37 15 - 55 % [facility] Blood Venous blood specimen / Unknown 06/10/2025 10:16 AM EDT 06/10/2025 Narrative [facility] - 06/11/2025 6:07 AM EDT Performed at: [address] [place] [id number] Oysterman: Roland Martinez PhD, Phone: [phone] us Jona Henley MD LAB BLOOD ORDERABLES Final Res ult [facility] * CBC and differential (06/10/2025 10:16 AM EDT) [facility] WBC 4.7 3.4 - 10.8 x10E3/uL [facility] [...] - 06/11/2025 6:07 AM EDT Performed at: [place] [address] [address] [facility], [address], [place], [place] [id number] Oysterman: Shaw Raygoza MD, Phone: [phone] us Jona Henley MD LAB BLOOD ORDERABLES Final Res ult Performing Organization Address [facility] de Phone Number [facility] * Ferritin (06/10/2025 10:16 AM EDT) Pathologist [facility] Ferritin 22 15 - 150 ng/mL [facility] Blood Venous blood specimen / Unknown 06/10/2025 10:16 AM EDT 06/10/2025 Narrative [facility] - 06/11/2025 6:07 AM EDT Performed at: [address] [id number] [place]ysterman: Roland Martinez PhD, Phone: [phone] us Jona Henley MD LAB BLOOD ORDERABLES Final Res ult Performing Organization Address [facility] Phone Number [facility] * Lupus anticoagulant (06/10/2025 10:14 AM EDT) Pathologist [facility] PTT-LA SCREEN 34.0 0.0 - 43.5 sec [facility] DRVVT SCREEN 40.0 0.0 - 47.0 sec [facility] LUPUS ANTICOAGULANT Comment: [facility] Comment:No lupus anticoagula nt was detected. Blood Venous blood specimen / Unknown 06/10/2025 10:14 AM EDT 06/10/2025 Narrative [facility] - 06/11/2025 3:07 PM EDT Performed at: [address] [id number] Oysterman: Arnold Garcia MD, Phone: [phone] us Jona Henley MD LAB BLOOD ORDERABLES Final Res ult Performing Organization Address [facility]/State/ZIP Co de Phone Number [facility] * hCG, quantitative (06/10/2025 10:14 AM EDT) hCG Beta Subunit Qn <1 mIU/mL [facility] Comment: Female (Non-) 0 - 5 (Postmenopausal) 0 - 8 Female () Weeks of Gestation 3 6 - 71 4 10 - 750 5 074 - 6237 6 732 - 31902 7 0523 -252768 8 91328 -532706 9 34249 -027679 10 84535 -673194 12 76634 -966039 14 29703 - 50147 15 40238 - 63907 16 4989 - 59971 17 1446 - 23680 18 8382 - 43217 Adis ECLIA methodology Blood Venous blood specimen / Unknown 06/10/2025 10:14 AM EDT 06/10/2025 Narrative [facility] - 06/11/2025 3:07 PM EDT Performed at: - [address] , [address], [place], [place] [id number] Oysterman: Shaw Raygoza MD, Phone: [phone] us Jona Henley MD LAB BLOOD ORDERABLES Final Res ult [facility] * US pelvis transvaginal (06/06/2025 9:06 AM EDT) Anatomical Region Laterality Modality Pelvis Ultrasound Study [place] Study Date Study CHERYL Working CHERYL (Source) 06/06/2025 Narrative 06/16/2025 9:51 AM EDT Images from the original result were not included. Obstetrics & Gynecology [address], [address] [address] [place] [address] - - - - - - - [...] - - Ordering/Reading Provider: Jona Henley M.D. Gifted Program Teacher: LETI Authormariluz Provider Result Type Result Stat us Jona Henley MD IMG US PROCEDURES Final Result from Last 3 Months Additional Health Concerns Active Problems Noted Date Diagnosed Date OB Reminders 07/18/2025 Insurance ANTHEM BCBS [place]ICA[place] Care Teams Emergency Management Coordinator Relationship Specialty Start Date End Date Pete Thapa DO [address] [place] [address] PCP - General Family Medicine 02/14/23
--- OUTSIDE RECORDS SUMMARY | 2025-07-19 21:45 | XMS_ITS | Encounter Summary ---
Author Organization [employer] s tem Address [id number] [address] [place] [address] Care Team Providers Care Orchestra Director Name Role Phone Alanis Sky DO, George R Primary Care Provider + Encounter Details Date Type Department Care Team (Late st Contact Info) Description 11/18/2022 [facility] [address] [place] [phone] Mariajose Delgadillo PA [address] [place] [phone] Social History Tobacco Use Types Packs/Day Years [...] to patient PCP office with [facility] in [place] at [phone] and they are faxing me the urine culture from 10/23/22 and I believe UA on same date. As soon as I get it I will send over to you. Thank you. documented in this encounter Plan of Treatment Upcoming Encounters Date Type Department Care Team (Late st Contact Info) Description 09/29/2025 4:00 PM EST Telemedicine [facility], [facility] Department of [facility] [address] [facility] [address] [place] [address] Bari Caro MD [address] [facility], [address] [place] [address] documented as of this encounter Goals Goal [...] documented as of this encounter Care Teams Orchestra Director Relationship Specialty Start Date End Date Pete Thapa Jr., [address] [place] [address] PCP - General Family Medicine 02/26/25 documented as of this encounter
--- OUTSIDE RECORDS SUMMARY | 2025-07-19 21:45 | XMS_ITS | Encounter Summary ---
Author Organization [facility] Address [facility] [place] [address] Care Team Providers Care Snack Steward Name Role Phone Kerry Butler RD Unavailable Jona Henley MD Unavailable [phone] Source Comments In the event this information is protected by the Federal Confidentiality of Alcohol and Drug AbusePatient Records regulations: The Federal rules restrict any use of the information to criminally investigate or prosecute any alcohol or drug abuse patient.[facility] Encounter Details Date Type Department Care Team (Late st Contact Info) Description 05/03/2023 Patient Msg Nutrition Therapy [address] [phone] Provider, [facility] Nutrition appointment Social History Tobacco [...] is lower risk 7 03/28/2023 Data from: https://www.neighborhoodatlas.medicine.[facility].edu/. Last address used for calculation 26 [...] on filedocumented in this encounter Care Teams Snack Steward Relationship Specialty Start Date End Date Crtalic-Kerry Coates RD [address] [address] Nutrition 04/04/23 Jona Henley MD [address] [facility] [address] [place] [phone] Referring Coordinator Mining Products 06/11/25 documented as of this encounter
--- OUTSIDE RECORDS SUMMARY | 2025-07-19 21:45 | XMS_ITS | Encounter Summary ---
Author Organization [facility] [employer] [facility] tem Address [facility]-[id number] [address] [place] [address] Care Team Providers Care Artist'S Model Name Role Phone Alanis Sky DO, George R Primary Care Provider + Encounter Details Date Type Department Care Team (Late Contact Info) Description 07/25/2023 Orders Only [facility] [address] [facility] [address] [place] [address] Sadia Rai, PA-C [address] [facility] [address] [place] [address] Social History Tobacco Use Types [...] EST Telemedicine [facility], A Department of [facility] [address] [place] [address] Bari Caro MD [address], [facility] [address] [place] [address] documented as of this encounter Goals Goal [...] documented as of this encounter Care Teams Artist'S Model Relationship Specialty Start Date End Date Pete Thapa Jr., DO [address] [place] [address] PCP - General Family Medicine 02/26/25 documented as of this encounter
--- OUTSIDE RECORDS SUMMARY | 2025-07-19 21:45 | XMS_ITS | Encounter Summary ---
Author Organization [facility] Address [address] [facility] [address] Care Team Providers Care Associate Professor Physician Name Role Phone Pete Thapa DO Primary Care Provider [phone] Reason for Visit * Reason Onset Date Comments Med Refill 01/15/2025 Encounter Details Date Type Department Care Team (Late st Contact Info) Description 01/15/2025 Refill [facility] [place] [facility] [address] [place] [phone] Pete Thapa DO [address] [facility] [facility] [address] [place] [address] Attention deficit hyperactivity disorder (ADHD), combined type [...] friends or relatives? Patient declined 11/12/2023 Attends [employer] Not on file 11/12 Do you belong to any clubs o r organizations such as restorationist groups, unions, fraternal or athletic groups, or [...] needed for daily living? Patient declined 11/12/2023 [place] Depression Scale Answer Date Recorded [place] [...] [address] [place] [phone] 08/18/2025 12:45 PM EST Initial [facility] [place] [facility] [address] [place] [phone] Jona Henley MD [address] [place] [address] documented as of this encounter Visit Diagnoses Diagnosis Attention deficit hyperactivity disorder (ADHD), combined type documented in this encounter Care Teams Associate Professor Physician Relationship Specialty Start Date End Date Pete Thapa DO [address] [place] [address] PCP - General Family Medicine 02/14/23 documented as of this encounter
--- OUTSIDE RECORDS SUMMARY | 2025-07-19 21:45 | XMS_ITS | Encounter Summary ---
Author Organization [facility] Address [facility] [place] [address] Care Team Providers Care Animal Ride Attendant Name Role Phone Luke Kerry COONEY Unavailable Jona Henley MD Unavailable [phone] Source Comments In the event this information is protected by the Federal Confidentiality of Alcohol and Drug AbusePatient Records regulations: The Federal rules restrict any use of the information to criminally investigate or prosecute any alcohol or drug abuse patient.[facility] Encounter Details Date Type Department Care Team (Late st Contact Info) Description 09/12/2021 Get Medical Advice Dermatology [address] [place] [address] Mary Ann Ma MD [address] [facility] [place] [address] Ance Social History Tobacco Use [...] N ot on file 09/14/2020 Data from: https://www.neighborhoodatlas.medicine.[facility]/. Last address used for calculation Not on [...] on filedocumented in this encounter Care Teams Animal Ride Attendant Relationship Specialty Start Date End Date Crtmildred-Kerry Coates RD [address] [address] Nutrition 04/04/23 Jona Henley MD [address] [facility] [address] [place] [address] Referring Dredge Pipe Operator 06/11/25 documented as of this encounter
--- OUTSIDE RECORDS SUMMARY | 2025-07-19 21:45 | XMS_ITS | Encounter Summary ---
Author Organization [facility] Address [facility] [place] [address] Care Team Providers Care Fire Marshal Name Role Phone Luke Kerry COONEY Unavailable Jona Henley MD Unavailable [phone] Source Comments In the event this information is protected by the Federal Confidentiality of Alcohol and Drug AbusePatient Records regulations: The Federal rules restrict any use of the information to criminally investigate or prosecute any alcohol or drug abuse patient.[facility] Encounter Details Date Type Department Care Team (Late st Contact Info) Description 07/20/2021 Get Medical Advice Dermatology [address] [place] [address] Mary Ann Ma MD [address] [facility] [place] [address] RE: Test Result Question Social [...] file 09/14/2020 Data from: https://www.neighborhoodatlas.medicine.[facility]/. Last address used for calculation Not on [...] on filedocumented in this encounter Care Teams Fire Marshal Relationship Specialty Start Date End Date Crtalic-Kerry Coates RD [address] [address] Nutrition 04/04/23 Jona Henley MD [address] [place] [address] Referring Executive Steward 06/11/25 documented as of this encounter
--- OUTSIDE RECORDS SUMMARY | 2025-07-19 21:45 | XMS_ITS | Encounter Summary ---
Author Organization [facility] Address [facility] [place] [address] Care Team Providers Care Radio Performer Name Role Phone Luke Kerry COONEY Unavailable [phone] Jona Henley MD Unavailable [phone] Source Comments In the event this information is protected by the Federal Confidentiality of Alcohol and Drug AbusePatient Records regulations: The Federal rules restrict any use of the information to criminally investigate or prosecute any alcohol or drug abuse patient.[facility] Encounter Details Date Type Department Care Team (Late st Contact Info) Description 08/25/2022 Patient Msg Dermatology [address] [place] [address] Mary Ann Ma MD [address] [place] [address] acne medication side effect Social [...] N ot on file 04/04/2022 Data from: https://www.neighborhoodatlas.medicine.[facility]/. Last address used for calculation [address] [...] on filedocumented in this encounter Care Teams Radio Performer Relationship Specialty Start Date End Date Crtmartina-Kerry Coates RD [address] [place] [address] Nutrition 04/04/23 Jona Henley MD [address] [email or web address] [address] [place] [address] Referring Executive Personal Assistant 06/11/25 documented as of this encounter
--- OUTSIDE RECORDS SUMMARY | 2025-07-19 21:45 | XMS_ITS | Encounter Summary ---
Author Organization [employer] s tem Address [id number] [address] [place] [address] Care Team Providers Care Cylinder Honer Name Role Phone Alanis Sky DO, George R Primary Care Provider + Encounter Details Date Type Department Care Team (Late st Contact Info) Description 11/21/2022 Telephone [facility] [address] [place] [phone] Whitney Henson PA [address] [place] [address] Social History Tobacco Use Types Packs/Day Years [...] encounter Miscellaneous Notes * Telephone Encounter - OJNAS Fraser - 11/21/2022 9:10 AM EST Elie [...] Tonsillar Ectopia. (She was diagnosed/prescribed by the [facility].) She is wondering if that's okay to take the night before her surgery? Thank you! -Clarence Spoke with patient and confirmed the following: PAT - 11/24/22 at 1200 Procedure - PSC on 11/30/22 at 1515 Per patient request, info sent through [employer]. * Telephone Encounter - Wesly Ayala DO - 11/21/2022 9:10 AM EST Yes- that will be fine. documented in this encounter Plan of Treatment Upcoming Encounters Date Type Department Care Team (Late st Contact Info) Description 09/29/2025 4:00 PM EST Telemedicine [facility], A Department of [facility] [address] [place] [address] Bari Caro MD [address], [facility] [address] [place] [address] documented as of this encounter Goals Goal [...] documented as of this encounter Care Teams Cylinder Honer Relationship Specialty Start Date End Date Pete Thapa Jr., DO [address] [place] [address] PCP - General Family Medicine 02/26/25 documented as of this encounter
--- OUTSIDE RECORDS SUMMARY | 2025-07-19 21:45 | XMS_ITS | Encounter Summary ---
Author Organization [facility] Address [address] [place] [address] Care Team Providers Care Curriculum And Assessment Director Name Role Phone Pete Thapa DO Primary Care Provider [phone] Encounter Details Date Type Department Care Team (Late st Contact Info) Description 01/22/2024 Orders Only [facility] [place] [facility] [address] [facility] [address] [place] [address] Jona Henley MD [address] [facility] [address] [place] [address] Social History Tobacco Use Types Packs/Day Years [...] friends or relatives? Patient declined 11/12/2023 Attends [employer] Not on file 11/12 Do you [...] needed for daily living? Patient declined 11/12/2023 Cataldo Depression Scale Answer Date Recorded Cataldo Depression Scale Total 0 08/10/2023 The thought [...] [address] [place] [address] 08/18/2025 12:45 PM EST Initial [facility] [place] [facility] [address] [place] [address] Jona Henley MD [address] [place], [place] [phone] documented as of this encounter Procedures Procedure [...] on filedocumented in this encounter Care Teams Curriculum And Assessment Director Relationship Specialty Start Date End Date Pete Thapa DO [address] [place] [address] PCP - General Family Medicine 02/14/23 documented as of this encounter
--- OUTSIDE RECORDS SUMMARY | 2025-07-19 21:45 | XMS_ITS | Encounter Summary ---
Author Organization [facility] Address [address] [place] [address] Care Team Providers Care Collection Specialist Name Role Phone Pete Thapa DO Primary Care Provider [phone] Encounter Details Date Type Department Care Team (Latest Contact Info) Description 06/16/2025 Results Follow-Up [facility] [address] [facility] [address] [place] [phone] Jona Henley MD [address] [facility] [address] [place] [address] METHYLENETETRAHYDROFOLATE REDUCTASE (MTHFR) THERMOLABILS Social History Tobacco [...] week 06/11/2025 How often do you attend [facility] or mandaeism services? 1 to 4 times per year 06/11/2025 Do you belong to any clubs o r organizations such as shinto groups, unions, fraternal or athletic groups, or [...] Recorded Patient Health Questionnaire-2 Score 0 06/13/2025 [facility] - Occupational [...] things needed for daily living? No 06/11/2025 [place] Depression Scale Answer Date Recorded [place] Depression Scale Total 0 08/10/2023 The thought [...] any time in the past 12 m [facility], were you homeless or living in a m[facility]p (including now)? No 06/11/2025 Comments No Sex [...] [address] [place] [address] 08/18/2025 12:45 PM EST Initial [facility] [place] [facility] [address] [place] [address] Jona Henley MD [address] [place] [address] documented as of this encounter Visit Diagnoses Not on filedocumented in this encounter Care Teams Collection Specialist Relationship Specialty Start Date End Date Pete Thapa DO [address] [place] [phone] PCP - General Family Medicine 02/14/23 documented as of this encounter
--- OUTSIDE RECORDS SUMMARY | 2025-07-19 21:45 | XMS_ITS | Encounter Summary ---
Author Organization [facility] Address [facility] [place] [address] Care Team Providers Care Press Puller Name Role Phone Luke Kerry COONEY Unavailable Jona Henley MD Unavailable [phone] Source Comments In the event this information is protected by the Federal Confidentiality of Alcohol and Drug AbusePatient Records regulations: The Federal rules restrict any use of the information to criminally investigate or prosecute any alcohol or drug abuse patient.[facility] Encounter Details Date Type Department Care Team (Late st Contact Info) Description 06/02/2022 Get Medical Advice Dermatology [address] [place] [address] Mary Ann Ma MD [address] [facility] [place] [address] Ance Social History Tobacco Use [...] N ot on file 04/04/2022 Data from: https://www.neighborhoodatlas.medicine.[facility]/. Last address used for calculation [address] [...] on filedocumented in this encounter Care Teams Press Puller Relationship Specialty Start Date End Date Crtmartina-Kerry Coates RD [address] [place] [address] Nutrition 04/04/23 Jona Henley MD [address] [facility] [address] [place] [address] Referring Finished Cloth Examiner 06/11/25 documented as of this encounter
--- OUTSIDE RECORDS SUMMARY | 2025-07-19 21:45 | XMS_ITS | Encounter Summary ---
Author Organization [facility] Address [facility] [place] [address] Care Team Providers Care Economics Consultant Name Role Phone Cristobal-Jaxon Kerry COONEY Unavailable Jona Henley MD Unavailable Source Comments In the event this information is protected by the Federal Confidentiality of Alcohol and Drug AbusePatient Records regulations: The Federal rules restrict any use of the information to criminally investigate or prosecute any alcohol or drug abuse patient.[facility] Encounter Details Date Type Department Care Team (Late st Contact Info) Description 11/04/2021 Get Medical Advice Dermatology [address] [place] [address] Mary Ann Ma MD [address] [facility] [place] [place] [address] Face Social History Tobacco Use [...] N ot on file 09/14/2020 Data from: https://www.neighborhoodatlas.medicine.[facility]/. Last address used for calculation Not on [...] on filedocumented in this encounter Care Teams Economics Consultant Relationship Specialty Start Date End Date Crtmildred-Kerry Coates RD [address] [address] Nutrition 04/04/23 Jona Henley MD [address] [facility] [address] [place] [address] Referring Upper Cutter Out 06/11/25 documented as of this encounter
--- OUTSIDE RECORDS SUMMARY | 2025-07-19 21:45 | XMS_ITS | Encounter Summary ---
Author Organization [facility] Address [address] [place] [address] Care Team Providers Care Skating Rink Manager Name Role Phone Kerry Butler RD Unavailable Jona Henley MD Unavailable [phone] Source Comments In the event this information is protected by the Federal Confidentiality of Alcohol and Drug AbusePatient Records regulations: The Federal rules restrict any use of the information to criminally investigate or prosecute any alcohol or drug abuse patient.[facility] Encounter Details Date Type Department Care Team (Late st Contact Info) Description 05/24/2023 Get Medical Advice General Surgery [address] [place] [phone] Az Ordoñez PA-C [address] [place] [address] Christen Social History Tobacco Use [...] is lower risk 7 03/28/2023 Data from: https://www.neighborhoodatlas.[facility]/. Last address used for calculation [...] on filedocumented in this encounter Care Teams Skating Rink Manager Relationship Specialty Start Date End Date Crtali-Kerry Coates RD [address] [address] Nutrition 04/04/23 Jona Henley MD [address] [facility] [address] [place] [address] Referring Associate Faculty 06/11/25 documented as of this encounter
--- OUTSIDE RECORDS SUMMARY | 2025-07-19 21:45 | XMS_ITS | Encounter Summary ---
Author Organization [facility] Address [address] [place] [address] Care Team Providers Care Direct Care Specialist Name Role Phone Cristobal-Kerry Coates RD Unavailable Jona Henley MD Unavailable [phone] Source Comments In the event this information is protected by the Federal Confidentiality of Alcohol and Drug AbusePatient Records regulations: The Federal rules restrict any use of the information to criminally investigate or prosecute any alcohol or drug abuse patient.[facility] Encounter Details Date Type Department Care Team (Late st Contact Info) Description 10/04/2024 Patient [facility] HB-3 [address] [place] [address] Kerry Choe RPh At your next appointment, choose [facility] Social History Tobacco Use [...] lower risk 7 08/16/2023 Data from: https://www.neighborhoodatlas.medicine.[facility]/. Last address used for calculation 26 [...] on filedocumented in this encounter Care Teams Direct Care Specialist Relationship Specialty Start Date End Date Crtalic-Kerry Coates RD [address] [address] Nutrition 04/04/23 Jona Henley MD [address] [facility] 210 [place] [address] Referring Hand Sample Maker 06/11/25 documented as of this encounter
--- OUTSIDE RECORDS SUMMARY | 2025-07-19 21:45 | XMS_ITS | Encounter Summary ---
Author Organization [facility] Address [facility] [place] [address] Care Team Providers Care Road Equipment Operator Name Role Phone Luke Kerry COONEY Unavailable Jona Henley MD Unavailable [phone] Source Comments In the event this information is protected by the Federal Confidentiality of Alcohol and Drug AbusePatient Records regulations: The Federal rules restrict any use of the information to criminally investigate or prosecute any alcohol or drug abuse patient.[facility] Encounter Details Date Type Department Care Team (Late st Contact Info) Description 05/17/2022 Get Medical Advice Dermatology [address] [place] [address] Mary Ann Ma MD [address] [facility] [place] [address] Ance Social History Tobacco Use [...] N ot on file 04/04/2022 Data from: https://www.neighborhoodatlas.medicine.[facility]/. Last address used for calculation [address] [...] on filedocumented in this encounter Care Teams Road Equipment Operator Relationship Specialty Start Date End Date Crtali-Kerry Coates RD [address] [address] Nutrition 04/04/23 Jona Henley MD [address] [facility] [address] [place] [address] Referring Collection Support Specialist 06/11/25 documented as of this encounter
--- OUTSIDE RECORDS SUMMARY | 2025-07-19 21:45 | XMS_ITS | Encounter Summary ---
Author Organization [facility] Address [facility] [place] [address] Care Team Providers Care Senior Patient Account Representative Name Role Phone Luke Kerry COONEY Unavailable Jona Henley MD Unavailable Source Comments In the event this information is protected by the Federal Confidentiality of Alcohol and Drug AbusePatient Records regulations: The Federal rules restrict any use of the information to criminally investigate or prosecute any alcohol or drug abuse patient.[facility] Encounter Details Date Type Department Care Team (Late st Contact Info) Description 11/06/2022 Get Medical Advice Dermatology [address] [facility] [place] [place] [address] Mary Ann Ma MD [address] [facility] [place] [address] Ance Social History Tobacco Use [...] N ot on file 11/01/2022 Data from: https://www.neighborhoodatlas.medicine.[facility]/. Last address used for calculation 26 [address] [...] on filedocumented in this encounter Care Teams Senior Patient Account Representative Relationship Specialty Start Date End Date Crtalic-Kerry Coates RD [address] [place] [phone] Nutrition 04/04/23 Jona Henley MD [address] [facility] [address] [place] [address] Referring Pedicurist 06/11/25 documented as of this encounter
--- OUTSIDE RECORDS SUMMARY | 2025-07-19 21:45 | XMS_ITS | Encounter Summary ---
Author Organization [facility] [employer] [facility] tem Address [id number] [address] [place] [address] Care Team Providers Care Cloth Painter Name Role Phone Alanis Sky DO, George R Primary Care Provider + Encounter Details Date Type Department Care Team (Late st Contact Info) Description 11/21/2022 [facility] [address] [place] [address] External, Scanning Provider Social History [...] EST Telemedicine [facility], [facility] Department of [facility] [address] [place] [address] Bari Caro MD [address] [facility] [address] [place] [address] documented as of this encounter Goals Goal [...] documented as of this encounter Care Teams Cloth Painter Relationship Specialty Start Date End Date Pete Thapa Jr., [address] [place] [address] PCP - General Family Medicine 02/26/25 documented as of this encounter
--- OUTSIDE RECORDS SUMMARY | 2025-07-19 21:45 | XMS_ITS | Encounter Summary ---
Author Organization [facility] Address [address] [facility] [place] [address] Care Team Providers Care Web Application Dev Specialist Name Role Phone Pete Thapa DO Primary Care Provider [phone] Encounter Details Date Type Department Care Team (Late st Contact Info) Description 10/10/2024 Abstract [facility] [place] [facility] [address] [facility] [address] [place] [phone] Pete Thapa DO [address] [facility] [address] [place] [address] Social History Tobacco Use Types Packs/Day Years [...] any clubs o r organizations such as sabianist groups, unions, fraternal or athletic groups, or [...] needed for daily living? Patient declined 11/12/2023 [place] Depression Scale Answer Date Recorded [place] Depression Scale Total 0 08/10/2023 The thought [...] [address] [place] [phone] 08/18/2025 12:45 PM EST Initial [facility] [place] [facility] [address] [place] [address] Jona Henley MD [address] [place] [address] documented as of this encounter Visit Diagnoses Not on filedocumented in this encounter Care Teams Web Application Dev Specialist Relationship Specialty Start Date End Date Pete Thapa DO [address] [place] [address] PCP - General Family Medicine 02/14/23 documented as of this encounter
--- OUTSIDE RECORDS SUMMARY | 2025-07-19 21:45 | XMS_ITS | Encounter Summary ---
Author Organization [facility] Address [facility] [place] [address] Care Team Providers Care Bench Tool Maker Name Role Phone Luke Kerry COONEY Unavailable [phone] Jona Henley MD Unavailable [phone] Source Comments In the event this information is protected by the Federal Confidentiality of Alcohol and Drug AbusePatient Records regulations: The Federal rules restrict any use of the information to criminally investigate or prosecute any alcohol or drug abuse patient.[facility] Encounter Details Date Type Department Care Team (Late st Contact Info) Description 07/23/2024 Patient Msg Podiatry [address] [place] [address] Ángela Mancera, DPM [address] [place] [address] Appointment Request Social History Tobacco [...] is lower risk 7 08/16/2023 Data from: https://www.neighborhoodatlas.[facility]/. Last address used for calculation 26 [...] on filedocumented in this encounter Care Teams Bench Tool Maker Relationship Specialty Start Date End Date Crtali-Kerry Coates RD [address] [address] Nutrition 04/04/23 Jona Henley MD [address] [facility] [address] [place] [address] Referring Procurement Specialist 06/11/25 documented as of this encounter
--- OUTSIDE RECORDS SUMMARY | 2025-07-19 21:45 | XMS_ITS | Clinical Summary ---
Author Organization [employer] [facility] Address [id number] [address] [place] [address] Care Team Providers Care Bobbin Painter Name Role Phone Alanis Sky DO, [...] (12/27/2022): Added automatically from request for surgery [id number] Right lower quadrant abdominal pain 11/23/2022 Overview (11/23/2022): Added automatically from request for surgery [id number] Gross hematuria 11/23/2022 Overview (11/23/2022): Added automatically from request for surgery [id number] Nausea and vomiting 12/13/2021 Cerumen debris on [...] 07/04/2025 Telephone [facility] [address] [place] [address] Doris Hernandez 07/03/2025 Telephone [facility] [address] [facility] [address] [place] [address] Otilia Oviedo from Last 3 [...] pur e alcohol) q 1x per month [facility] Utilities Answer Date Recorded In the [...] Info) Description 09/29/2025 4:00 PM EST [facility]icine [facility] Department of [facility] [address] [facility] [address] [place] [address] Bari Caro MD [address] [facility] [address] [place] [address] Health Maintenance Due Date Last Done Comments [...] to home. Medical Devices Explanted Type Area Cake Knocker Device Identifier Shelf Expiration Date Model / Serial / Lot Tube Ear Jacquelyn Bx/5 Bill - [id number] Implanted:Qty: 1 on 11/02/2017 by Karthikeyan Lopez MD PhD at [facility] Explanted:Qty: 1 on 06/04/2024 by Clifton Verde MD at [facility] Other Implant [facility] [facility] 04/03/2025 [id number] / / [id number] Insurance [employer] MEDICAID [facility] MEDICAID [facility] MEDICAID Advance Directives * Full Code (Latest Code Status on File) Date Activated Date Inactivated Comments 02/27/2025 12:25 AM 02/27/2025 9:28 PM * Full Code Date Activated Date Inactivated Comments 01/27/2023 2:20 PM 01/30/2023 2:01 PM * Full Code Date Activated Date Inactivated Comments 12/13/2021 3:09 PM 12/14/2021 5:43 PM Care Teams Bobbin Painter Relationship Specialty Start Date End Date Pete Thapa Jr., [address] [address] PCP - General Family Medicine 02/26/25
--- OUTSIDE RECORDS SUMMARY | 2025-07-19 21:45 | XMS_ITS | Encounter Summary ---
Author Organization [facility] Address [address] [facility] [place] [place] [address] Care Team Providers Care Water/Wastewater Project Manager Name Role Phone Pete Thapa DO Primary Care Provider [phone] Encounter Details Date Type Department Care Team (Late st Contact Info) Description 08/27/[address] [place] [facility] [address] [facility] [address] [place] [phone] Pete Thapa DO [address] [facility] [address] [place] [address] Social History Tobacco Use Types Packs/Day Years [...] friends or relatives? Patient declined 11/12/2023 Attends Restorationism Services Not on file 11/12 Do you belong to any clubs o r organizations such as restorationism groups, unions, fraternal or athletic groups, or [...] needed for daily living? Patient declined 11/12/2023 [place] Depression Scale Answer Date Recorded [place] Depression Scale Total 0 08/10/2023 The [...] [address] [place] [phone] 08/18/2025 12:45 PM EST Initial [facility] [place] [facility] [address] [place] [address] Jona Henley MD [address] [place] [address] documented as of this encounter Visit Diagnoses Not on filedocumented in this encounter Care Teams Water/Wastewater Project Manager Relationship Specialty Start Date End Date Pete Thapa DO [address] [place] [address] PCP - General Family Medicine 02/14/23 documented as of this encounter
--- OUTSIDE RECORDS SUMMARY | 2025-07-19 21:45 | XMS_ITS | Encounter Summary ---
Author Organization [facility] Address [facility] [place] [address] Care Team Providers Care Client Solutions Manager Name Role Phone Luke Kerry COONEY Unavailable Jona Henley MD Unavailable [phone] Source Comments In the event this information is protected by the Federal Confidentiality of Alcohol and Drug AbusePatient Records regulations: The Federal rules restrict any use of the information to criminally investigate or prosecute any alcohol or drug abuse patient.[facility] Encounter Details Date Type Department Care Team (Late st Contact Info) Description 07/19/2023 Get Medical Advice Dermatology [address] [place] [address] Mary Ann Ma MD [address] [place] [address] Ance products Social History Tobacco [...] is lower risk 7 03/28/2023 Data from: https://www.neighborhoodatlas.medicine.[facility]/. Last address used for calculation [...] her 08/16 appointment. Pt uses [facility] [place]. Please advise. Sheila Monson July 20, 2023 9:24 AM documented in this encounter Plan of Treatment Not on file documented as of this encounter Visit Diagnoses Not on filedocumented in this encounter Care Teams Client Solutions Manager Relationship Specialty Start Date End Date Crtalic-Kerry Coates [address] [address] Nutrition 04/04/23 Jona Henley MD [address] [facility] [address] [place] [address] Referring Senior Front End Web Developer 06/11/25 documented as of this encounter
--- OUTSIDE RECORDS SUMMARY | 2025-07-19 21:46 | XMS_ITS | Encounter Summary ---
Author Organization [facility] Address [address] [place] [address] Care Team Providers Care Prosthodontist Name Role Phone Luke Kerry COONEY Unavailable Jona Henley MD Unavailable [phone] Source Comments In the event this information is protected by the Federal Confidentiality of Alcohol and Drug AbusePatient Records regulations: The Federal rules restrict any use of the information to criminally investigate or prosecute any alcohol or drug abuse patient.[facility] Encounter Details Date Type Department Care Team (Late st Contact Info) Description 10/13/2022 Get Medical Advice General Surgery [address] [id number] Az Ordoñez PA-C [address] [place] [address] Weight Social History Tobacco Use [...] N ot on file 04/04/2022 Data from: https://www.neighborhoodatlas.medicine.[facility]/. Last address used for calculation [address] [...] on filedocumented in this encounter Care Teams Prosthodontist Relationship Specialty Start Date End Date Crtali-Kerry Coates [address] [address] Nutrition 04/04/23 Jona Henley MD [address] [facility] [address] [place] [address] Referring Powertrain Engineer 06/11/25 documented as of this encounter
--- OUTSIDE RECORDS SUMMARY | 2025-07-19 21:46 | XMS_ITS | Encounter Summary ---
Author Organization [facility] Address [facility] [place] [address] Care Team Providers Care Oil Lease Broker Name Role Phone Kerry Butler RD Unavailable Jona Henley MD Unavailable [phone] Source Comments In the event this information is protected by the Federal Confidentiality of Alcohol and Drug AbusePatient Records regulations: The Federal rules restrict any use of the information to criminally investigate or prosecute any alcohol or drug abuse patient.[facility] Encounter Details Date Type Department Care Team (Late st Contact Info) Description 04/05/2023 Patient Msg Nutrition Therapy [address] [place] [address] Provider, Ccfrancy After Visit Information [...] is lower risk 7 03/28/2023 Data from: https://www.neighborhoodatlas.[facility]/. Last address used for calculation 26 [...] filedocumented in this encounter Care Teams Oil Lease Broker Relationship Specialty Start Date End Date Crtalic-Kerry Coates [address] [address] Nutrition 04/04/23 Jona Henley MD [address] [facility] [address] [place] [address] Referring Statement Distribution Clerk 06/11/25 documented as of this encounter
--- OUTSIDE RECORDS SUMMARY | 2025-07-19 21:46 | XMS_ITS | Encounter Summary ---
Author Organization [facility] Address [id number] [address] [place] [address] Care Team Providers Care Lunchroom Aide Name Role Phone Alanis Sky DO, George R Primary Care Provider + Encounter Details Date Type Department Care Team (Late st Contact Info) Description 11/23/2022 [facility] [address] [place] [address] External, Scanning Provider Social History [...] EST Telemedicine [facility] Department of [facility] [address] [place] [address] Bari Caro MD [address] [facility] [address] [place] [address] documented as of this encounter Goals Goal [...] documented as of this encounter Care Teams Lunchroom Aide Relationship Specialty Start Date End Date Pete Thapa Jr., DO [address] [place] [address] PCP - General Family Medicine 02/26/25 documented as of this encounter
--- NOTE | 2025-07-19 21:51 | PC.NURSE ---
Second for pt. Bleeding started today, bight red, bleeding if similar to period. cramping/abdominal pain. pt has had hx of D&C with first and is high risk.
[2025-07-19] MEDS: ACETAMINOPHEN 500 MG TABLET 1000 MG PO (22:17)
[2025-07-19] MEDS: ONDANSETRON 4 MG RAPDIS TABLET SL (22:17)
[2025-07-19 22:33] LABS: Hematocrit 36.6 % (36.0-48.0); Hemoglobin 12.4 g/dL (12.0-16.0); Immature Granulocytes Abs Auto 0.04 10^3/uL (0.00-0.03); Immature Granulocytes Pct Auto 0.4 % (0.0-0.5); Lymphocytes Absolute Auto 1.9 10^3/uL (1.2-3.8); Mean Corpuscular HGB Conc 33.9 g/dL (29.9-35.2); Mean Corpuscular Hemoglobin 31.0 pg (26.7-34.0); Mean Corpuscular Volume 91.5 fL (81.0-99.0); Platelet Count 203 10^3/uL (150-450); Red Blood Count 4.00 10^6/uL (4.20-5.40); White Blood Count 9.1 10^3/uL (4.0-11.0)
[2025-07-19 22:50] LABS: Alanine Aminotransferase 24 U/L (14-59); Albumin Globulin Ratio 1.1; Albumin Level 3.3 g/dL (3.4-5.0); Alkaline Phosphatase 66 U/L (46-116); Anion Gap 11.2; Aspartate Amino Transferase 13 U/L (15-37); Blood Urea Nitrogen 12.0 mg/dL (7.0-18.0); Calcium 8.4 mg/dL (8.5-10.1); Carbon Dioxide 25.2 mmol/L (21.0-32.0); Chloride 106 mmol/L (98-107); Estimated GFR (African America >60 (>=60 mL/min/1.73m^2); Estimated GFR (Non-African Ame >60 (>=60 mL/min/1.73m^2); Globulin 3.0 g/dL; Glucose 94 mg/dL (74-106); Potassium 3.4 mmol/L (3.5-5.1); Sodium 139 mmol/L (136-145); Total Protein 6.3 g/dL (6.4-8.2)
--- NOTE | 2025-07-20 04:21 | ED_ITS ---
HPI HPI - General Adult General Chief complaint: Vaginal Bleeding Stated complaint: Bleeding Time Seen by Provider: 07/19/25 21:42 Source: patient Mode of arrival: walk-in Limitations: no limitations History of Present Illness HPI narrative: Patient is a 24-year-old female presenting to the emergency department for evaluation of vaginal bleeding and lower abdominal cramping. Patient states that she is approximately 7 weeks by test. Her last menstrual cycle ended on May 31. She states that earlier tonight she started experiencing vaginal bleeding with bright red blood. She also was having lower abdominal cramping. By the time she arrived in the ED, she states that her bleeding has subsided. She does note that she has a history of ectopic pregnan cy. She otherwise denies any other complaints such as chest pain, shortness of breath, dizziness, lightheadedness, nausea, or vomiting. She is on vitamins. Related Data Home Medications ?Medication ?Instructions ?Recorded ?Confirmed cephalexin 500 mg capsule mg 07/19/25 Allergies Allergy/AdvReac Type Severity Reaction Status Date / Time doxycycline Allergy Unknown Verified 04/16/25 23:53 Penicillins Allergy Unknown Verified 04/16/25 23:53 Review of Systems ROS Status of ROS 10 or more systems reviewed and unremark able except as noted in history and below PFSH PFSH Social History Little interest or pleasure in doing things: not at all Feeling down, depressed, or hopeless: not at all Exam Narrative Exam Narrative: CONSTITUTIONAL: Tearful, nontoxic appearing, answering questions and following commands appropriately SKIN: Was warm and dry. EYES: Sclerae white. No conjunctival pallor. EARS, NOSE, THROAT: Moist oral mucosa. RESPIRATORY: Clear to auscultation bilaterally, no wheezes, crackles, or stridor, no use of accessory muscles CARDIOVASCULAR: Normal rate and regular rhythm. There is no S3, S4, murmur, rub. GASTROINTESTINAL: There is mild tenderness palpation in the lower part of her abdomen without rebound tenderness or guarding. Nondistended. MUSCULOSKELETAL: No peripheral edema. NEUROLOGIC: Patient is awake and alert. Facies were symmetrical. Constitutional Vital Signs, click to edit/add: Last Vital Signs Temp 97.6 F 07/19/25 21:41 Pulse 99 H 07/19/25 21:41 Resp 18 07/19/25 21:41 BP 104/78 07/19/25 21:41 Pulse Ox 97 10/11/25 21:41 O2 Del Method Room Air 07/19/25 21:41 Course Vital Signs Vital signs: Vital Signs Temperature 97.6 F 07/19/25 21:41 Pulse Rate 99 H 07/19/25 21:41 Respiratory Rate 18 07/19/25 21:41 Blood Pressure 104/78 07/19/25 21:41 Pulse Oximetry 97 07/19/25 21:41 Oxygen Delivery Method Room Air 07/19/25 21:41 Temperature 97.6 F 07/19/25 21:41 Pulse Rate 99 H 07/19/25 21:41 Respiratory Rate 18 07/19/25 21:41 Blood Pressure 104/78 07/19/25 21:41 Pulse Oximetry 97 07/19/25 21:41 Oxygen Delivery Method Room Air 07/19/25 21:41 Medical Decision Making MDM Narrative Medical decision making narrative: Patient is a 24-year-old female presenting to the emergency department for evaluation of vaginal bleeding and lower abdominal cramping. She is approximate 7 weeks by dates. Vital signs on arrival are within normal limits. She is afebrile and hemodynamically stable. There is mild tenderness to palpation in the lower part of her abdomen without peritoneal signs. She is no longer bleeding. Differential diagnosis includes spontaneous , ectopic , subchorionic hemorrhage, implantation bleeding. Laboratory studies and TVUS were obtained. She was given oral Zofran and Tylenol for pain. TVUS independent reviewed interpreted by myself and radiology demonstrated single live intrauterine with estimated gestational age of 6 weeks and 4 days. heart rate 121 bpm. No evidence of ectopic or a subchorionic bleed. Laboratory studies were unremarkable. No significant electrolyte or metabolic derangement. No evidence of acute kidney injury. Mild anemia. No leukocytosis. No transaminitis or hyperbilirubinemia. Beta quantitative hCG appropriately elevated. Her blood type is A+, no indication for RhoGAM. I do believe the patient is stable for discharge. Patient's presentation is most likely consistent with implantation bleeding or threatened . They were instructed to follow up with her SAWSMITH, she has appointment scheduled for next week. Return precautions were given including any new or worsening symptoms, including bleeding through more than 2 pads per hour for multiple hours. Patient understands and agrees to the plan. FINAL IMPRESSION: #Acute vaginal bleeding in first trimester DISPOSITION: Discharged home CONDITION: Good Medical Records Medical records reviewed: Yes I reviewed the patient's medical records Lab Data Lab results reviewed: Yes I reviewed the patient's lab results Labs: Lab Results 07/19/25 Range/Units 22:21 WBC 9.1 (4.0-11.0) 10^3/uL RBC 4.00 L (4.20-5.40) 10^6/uL Hgb 12.4 (12.0-16.0) g/dL Hct 36.6 (36.0-48.0) % MCV 91.5 (81.0-99.0) fL MCH 31.0 (26.7-34.0) pg MCHC 33.9 (29.9-35.2) g/dL RDW 12.3 (11.0-15.0) % Plt Count 203 (150-450) 10^3/uL MPV 10.1 (9.5-13.5) fL Neut % (Auto) 68.8 (43.0-75.0) % Lymph % (Auto) 20.7 (20.5-60.0) % Clarion % (Auto) 9.1 (1.7-12.0) % Eos % (Auto) 0.6 L (0.9-7.0) % Baso % (Auto) 0.4 (0.2-2.0) % Neut # (Auto) 6.2 (1.4-6.5) 10^3/uL Lymph # (Auto) 1.9 (1.2-3.8) 10^3/uL Clar[place] # (Auto) 0.8 (0.3-0.8) 10^3/uL Eos # (Auto) 0.1 (0.0-0.7) 10^3/uL Baso # (Auto) 0.0 (0.0-0.1) 10^3/uL Abs Immat Gran (auto) 0.04 H (0.00-0.03) 10^3/uL Imm/Tot Granulo (auto) 0.4 (0.0-0.5) % Sodium 139 (136-145) mmol/L Potassium 3.4 L (3.5-5.1) mmol/L Chloride 106 (98-107) mmol/L Carbon Dioxide 25.2 (21.0-32.0) mmol/L Anion Gap 11.2 BUN 12.0 (7.0-18.0) mg/dL Creatinine 0.67 (0.55-1.02) mg/dL Est GFR ( Amer) >60 (>=60 mL/min/1.73m^2) Est GFR (Non-Af Amer) >60 (>=60 mL/min/1.73m^2) BUN/Creatinine Ratio 17.9 Glucose 94 (74-106) mg/dL Calcium 8.4 L (8.5-10.1) mg/dL Total Bilirubin 0.9 (0.2-1.0) mg/dL AST 13 L (15-37) U/L ALT 24 (14-59) U/L Alkaline Phosphatase 66 (46-116) U/L Total Protein 6.3 L (6.4-8.2) g/dL Albumin 3.3 L (3.4-5.0) g/dL Globulin 3.0 g/dL Albumin/Globulin Ratio 1.1 HCG, Quant 40954 mIU/mL Blood Type A Positive Antibody Screen Negative Imaging Data TVUS: Attestation: I personally reviewed and interpreted this imaging study as follows: Discharge Plan Discharge Chief Complaint: Vaginal Bleeding Clinical Impression: Threatened Patient Disposition: Home, Self-Care Time of Disposition Decision: 23:11 Condition: Good Mode of Transportation: Private Vehicle Prescriptions / Home Meds: No Action cephalexin 500 mg capsule Print Language: Egyptian Instructions: Threatened Miscarriage (ED) Referrals: Diane ROJAS [Primary Care Provider, Family Practice] - 1 week Discharge Date/Time: 07/19/25 23:23
== END 2025-07-19 23:23 | disposition home or self-care (01) ==
PROVIDERS: Emergency Provider Student in an Organized Health Care Education/Training Program; PCP Family Medicine
DX: O20.0 Threatened abortion (principal); Z3A.01 Less than 8 weeks gestation of pregnancy
CPT/HCPCS: 36415; 76817; 80053; 84702; 85025; 86850; 86900; 86901; 99284; Q0162

== ENCOUNTER 2025-07-31 09:42 | Outpatient (OUT) | payer MEDICAID, SELFPAY ==
--- OUTSIDE RECORDS SUMMARY | 2025-07-18 10:30 | XMS_ITS | Encounter Summary ---
Author Organization [facility] Address [address] [place] [address] Care Team Providers Care Hydraulic Elevator Constructor Name Role Phone Pete Thapa DO Primary Care Provider [phone] Reason for Visit * ReasonCommentsInitial VisitNurse Visit Encounter Details DateTypeDepartmentCare Team (Latest Contact Info)Bigknkvzcjm12/10/2025 10:30 AM EDTInitial [facility] [place] [facility] [address] [place] [address] GA: 6w6d Social History Tobacco UseTypesPacks/DayYears UsedDateSmoking Tobacco: NeverSmokeless Tobacco: NeverAlcohol UseStandard Drinks/WeekCommentsNot Currently0 (1 standard drink = 0.6 oz pure alcohol)caffeine: [id number] Health LiteracyAnswerDate RecordedHow often do you need to have someone help you when you read instructions, pamphlets, or other written material from your doctor or pharmacy? Patient declines to ywfnqpi4906/11/2025Humiliation, Afraid, Rape, and Kick questionnaireAnswerDate RecordedWithin the last year, have you been afraid of your partner or ex-partner?No06/11/2025Within the last year, have you been humiliated or emotionally abused in other ways by your partner or ex-partner?No 06/11/2025Within the last year, have you been kicked, hit, slapped, or otherwise physically hurt by your partner or ex-partner?No06/11/2025Within the last year, have you been raped or forced to have any kind of sexual activity by your part ner or ex-partner?No06/11/2025Social Connection and Isolation PanelAnswerDate RecordedIn a typical week, how many times do you talk on the phone with family, friends, or neighbors?Once a week06/11/2025How often do you get together with friends or relatives?Three times a week06/11/2025How often do you attend oriental orthodox or mormon services?1 to 4 times per year06/11/2025Do you belong to any clubs or organizations such as oriental orthodox groups, unions, [employer] or athletic groups, or school groups?No06/11/2025How often do you attend meetings of the clubs or organizations you belong to?Never06/11/2025re you , , , , never , or living with a partner?Patient uglgqzux06/03/2025 AUDIT-CAnswerDate RecordedQ1: How often do you have a drink containing alcohol? Monthly or less06/11/2025Q2: How many drinks containing alcohol do you have on a typical day when you are drinking?Patient does not drink06/11/2025Q3: How often do you have six or more drinks on one occasion?Less than ilwxhzu9306/11/2025 Overall Financial Resource Strain (CARDIA)AnswerDate RecordedHow hard is it for you to pay for the very basics like food, housing, medical care, and heating? Somewhat hard06/11/2025PHQ-2AnswerDate RecordedPatient Health Questionnaire-2 [id number] [place] [facility] Occup[facility] - Occupational Stress QuestionnaireAnswerDate RecordedDo you feel stress - tense, restless, nervous, or anxious, or unable to sleep at night because yourmind is troubled all the time - these days?Only a qghnnw1506/11/2025Exercise Vital SignAnswerDate Recorded On average, how many days per week do you engage in moderate to strenuous exercise (like a brisk walk)?2 days06/11/2025On average, how many minutes do you engage in exercise at this level?10 min06/11/2025Hunger Vital SignAnswerDate RecordedWithin the past 12 months, you worried that your food would run out before you got the money to buymore.Sometimes true09/03/2025Within the past 12 months, the food you bought just didn't last and you didn't have money to get more.Sometimes true06/11/2025PRAPARE - TransportationAnswerDate RecordedIn the past 12 months, has lack of transportation kept you from medical appointments or from getting medications?No06/11/2025In the past 12 months, has lack of transportation kept you from meetings, work, or from getting things needed for daily living?No06/11/2025Edinburgh Depression ScaleAnswerDate Recorded York Depression Scale Emhdw17910/10/2022The thought of harming myself has occurred to me.Never08/10/2023Housing Stability Vital SignAnswerDate RecordedIn the last 12 months, was there a time when you were not able to pay the mortgage or rent on time?No06/11/2025Number of Times Moved in the Last Year Not on file06/11/2025t any time in the past 12 months, were you homeless or living in a chcf (including now)?No06/11/2025Estimated Date of UscxkoxkJntbimxxFfa34/30/2026ased on last menstrual period of 05/31/2025Sex and Gender InformationValueDate RecordedSex Assigned at BirthNot on fileLegal Sex Vuxyjn0712/21/2022 7:12 PM EDTGender EfcgndtgRbhklr63/15/2023 7:12 PM EDTSexual OrientationNot on fileOccupationIndustryJob Start DateJob End DateCountry side Not on fileNot on fileNot on filedocumented as of this encounter Progress Notes * Laure Dumont RN - 07/18/2025 10:30 AM EDT Name: Charis Lyons Date/Time of Service:07/18/2025 11:50 AM :2000 Age: 24 y.o. Chief Complaint Chief Complaint Patient presents with Initial Visit Nurse Visit Charis Baltazar Lyons is a 24 y.o. at 6w6d [...] of estimated date of delivery No Thalassemia (Tuvaluan, Czech, Mediterranean, or background): MCV less than 80 No Neural tube defect (Meningomyelocele, Spina bifida, or Anencephaly) No Congenital heart defect No Down syndrome No Abdoulaye-Sachs (Ashkenazi Mosque, Cajun, Kyrgyz Swazi) No Mima disease (Ashkenazi Mosque) No Familial dysautonomia (Ashkenazi Mosque) No Sickle cell disease or trait () No Hemophilia or other blood disorders No Muscular dystrophy No Cystic fibrosis No Morris's chorea No Other inherited genetic or chromosomal [...] - ASSESSMENT / PLAN Labs Ordered to [facility] per pt request. Printed orders for pt to take with. Aware she will need these completed prior to NOB. Appointments scheduled for 07/31/25 with OBUS and 08/18/25 with PPJ Laure Dumont RN 07/18/2025 11:50 AM documented in this encounter Plan of Treatment DateTypeDepartmentCare Team (Latest Contact Info)Lqahbrinrgw02/23/2025 10:30 AM EDTOffice Visit [facility] [place] [facility] [address] [place] [address] Jona Henley MD [address] [place] [address] 07/31/2025 2:45 PM EDTAncillary Procedure [facility] [place] [facility] [address] [place] [address] 08/18/2025 12:45 PM ESTInitial [facility] [address] [place] [address] Jona Henley MD [address] [place], [place] [id number] NameTypePriorityAssociated DiagnosesOrder ScheduleToxicology screen, urineLab Routine Encounter for drug screening Expected: 07/18/2025 (Approximate), Expires: 07/18/2026BC auto differentialLab Routine care, subsequent , first trimester ([facility]) Expected: 07/18/2025, Expires: 07/18/2026Urine cultureMicrobiologyRoutine care, subsequent , first trimester ([facility]) Expected: 07/18/2025, Expires: 07/18/2026Urinalysis with microscopicLabRoutine care, subsequent , first trimester ([facility]) Expected: 07/18/2025, Expires: 07/18/2026RPR W/RFX TO QUANT & TP ABS [place] [place]Lab Routine care, subsequent , first trimester ([facility]) Expected: 07/18/2025, Expires: 07/18/2026Rubella antibody, IgGLabRoutine care, subsequent , first trimester ([facility]) Expected: 07/18/2025, Expires: 07/18/2026HEPATITIS B SURFACE ANTIGEN ([facility] [place] [place]Lab Routine care, subsequent , first trimester ([facility]) Expected: 07/18/2025, Expires: 07/18/2026Type and screenLabRoutine care, subsequent , first trimester ([facility]) Expected: 07/18/2025, Expires: 07/18/2026HIV-1 and HIV-2 antibodiesLabRoutine care, subsequent , first trimester ([facility]) Expected: 07/18/2025, Expires: 07/18/2026Hepatitis C antibodyLabRoutine care, subsequent , first trimester ([facility]) Expected: 07/18/2025, Expires: 07/18/20265496FgmvizcS06 PLUS Core+SCALabRoutine Encounter for screening for chromosomal anomalies ([facility]) Expected: 08/11/2025 (Approximate), Expires: 07/18/2026EACON CARRIER SCREEN;14 GENESLabRoutine Screening for genetic disease carrier status Expected: 08/11/2025 (Approximate), Expires: 07/18/2026documented as of this encounter Goals GoalPatient Goal TypeAssociated ProblemsRecent ProgressPatient-Stated?Author Reminders Care PlanOB RemindersLaure Carter RNdocumented as of this encounter Visit Diagnoses Diagnosis care, subsequent , first trimester ([facility]) Encounter for drug screening Encounter for screening for chromosomal anomalies ([facility]) Screening for genetic disease carrier status documented in this encounter Additional Health Concerns Active ProblemsNoted DateDiagnosed DateOB Lwsovkdsk91/10/2025 documented as of this encounter Care Teams Team MemberRelationshipSpecialtyStart DateEnd Date Pete Thapa DO [address] [place] [address] PCP - GeneralFamily Medicine02/14/23documented as of this encounter
--- OUTSIDE RECORDS SUMMARY | 2025-07-31 09:47 | XMS_ITS | Encounter Summary ---
Author Organization [facility] Address [address] [place] [address] Care Team Providers Care Statistical Assistant Name Role Phone Pete Thapa DO Primary Care Provider [phone] Encounter Details DateTypeDepartmentCare Team (Latest Contact Info)Dwnhuijcucm19/09/2025linisync Result Encounter [facility] External Department Unsolicited Jona Henley MD [address] [place] [address] Social History Tobacco UseTypesPacks/DayYears UsedDateSmoking Tobacco: NeverSmokeless Tobacco: NeverAlcohol UseStandard Drinks/WeekCommentsNot Currently0 (1 standard drink = 0.6 oz pure alcohol)caffeine: [id number] Health LiteracyAnswerDate RecordedHow often do you need to have someone help you when you read instructions, pamphlets, or other written material from your doctor or pharmacy?Patient declines to oxuufhr1906/11/2025Humiliation, Afraid, Rape, and Kick questionnaire AnswerDate RecordedWithin the last year, have you been afraid of your partner or ex-partner?No06/11/2025Within the last year, have you been humiliated or emotionally abused in other ways by your partner or ex-partner?No06/11/2025 Within the last year, have you been kicked, [...] times a week06/11/2025How often do you attend mormonism or sabianism services?1 to 4 times per year06/11/2025Do you belong to any clubs or organizations such as mormonism groups, unions, [employer] or athletic groups, or school groups?No06/11/2025How often do you attend meetings of the clubs or organizations you belong to?Never06/11/2025re you , , , , never , or living with a partner?Patient pwkzbaab48/03/2025 AUDIT-CAnswerDate RecordedQ1: How often do you have a drink containing alcohol? Monthly or less06/11/2025Q2: How many drinks containing alcohol do you have on a typical day when you are drinking?Patient does not drink06/11/2025Q3: How often do you have six or more drinks on one occasion?Less than mscvefe5106/11/2025 Overall Financial Resource Strain (CARDIA)AnswerDate RecordedHow hard is it for you to pay for the very basics like food, housing, medical care, and heating? Somewhat hard06/11/2025PHQ-2AnswerDate RecordedPatient Health Questionnaire-2 Ehevh405[facility] [place] of Occupational Health - Occupational Stress QuestionnaireAnswerDate RecordedDo you feel stress - tense, restless, nervous, or anxious, or unable to sleep at night because yourmind is troubled all the time - these days?Only a jixmda3506/11/2025Exercise Vital SignAnswerDate Recorded On average, how many days per week do you engage in moderate to strenuous exercise (like a brisk walk)?2 days06/11/2025On average, how many minutes do you engage in exercise at this level?10 min06/11/2025Hunger Vital SignAnswerDate RecordedWithin the past 12 months, you worried that your food would run out before you got the money to buymore.Sometimes true06/11/2025Within the past 12 months, the food you [...] needed for daily living?No06/11/2025Edinburgh Depression ScaleAnswerDate Recorded [place] Depression Scale Yuadz84110/10/2022The thought of harming myself has occurred to me.Never08/10/2023Housing Stability Vital SignAnswerDate RecordedIn the last 12 months, was there a time when you were not able to pay the mortgage or rent on time?No06/11/2025Number of Times Moved in the Last Year Not on file06/11/2025t any time in the past 12 months, were you homeless or living in a assisted (including now)?No06/11/2025CommentsNoSex and Gender InformationValueDate RecordedSex Assigned at BirthNot on fileLegal SexFemale 12/21/2022 7:12 PM EDTGender EwctngtpCsefyi60/15/2023 7:12 PM EDTSexual OrientationNot on fileOccupationIndustryJob Start DateJob End DateCountry side Not on fileNot on fileNot on filedocumented as of this encounter Plan of Treatment DateTypeDepartmentCare Team (Latest Contact Info)Urhorxtluhi62/23/2025 10:30 AM EDTOffice Visit BRANDEN APONTE [address] [place] [address] Jona Henley MD [address] [place] [address] 07/31/2025 2:45 PM EDTAncillary Procedure BRANDEN APONTE [address] [place] [address] 08/18/2025 12:45 PM ESTInitial [facility] [address] [place] [phone] Jona Henley MD [address] [place] [address] documented as of this encounter Procedures Procedure NamePriorityDate/TimeAssociated DiagnosisCommentsTBH PREG QUANT HCG Tghowzp6807/17/2025 4:30 PM EDT documented in this encounter Results * TBH PREG QUANT HCG (07/17/2025 4:30 PM EDT)ComponentValueRef RangeTest Method Analysis TimePerformed AtPathologist SignatureHCG DHCIYMRUITAM65,404mIU/mLTBH Comment: 5-50 ? 0.2-1 WEEK 50-500 ? 1-2 WEEKS 100-5,000 ?2-3 WEEKS 500-10,000 ? 3-4 WEEKS 1,000-50,000 ?? 4-5 WEEKS 10,000-100,000 5-6 WEEKS 15,000-200,000 6-8 WEEKS 10,000-100,000 2-3 MONTHS Specimen (Source)Anatomical Location / LateralityCollection Method / Volume Collection TimeReceived Time07/17/2025 4:30 PM EDT1 4:36 PM EDT Narrative [facility] - 07/17/2025 5:27 PM EDT Authorizing ProviderResult TypeResult StatusGeneric External Data Provider CLINISYNCFinal ResultPerforming OrganizationAddressCity/State/ZIP CodePhone Number [facility] documented in this encounter Visit Diagnoses Not on filedocumented in this encounter Care Teams Team MemberRelationshipSpecialtyStart DateEnd Date Pete Thapa DO [address] [place] [address] PCP - GeneralFamily Medicine02/14/23documented as of this encounter
--- OUTSIDE RECORDS SUMMARY | 2025-07-31 09:47 | XMS_ITS | Clinical Summary ---
Author Organization [facility] Address [address] [place] [address] Care Team Providers Care Rooms Director Name Role Phone Katie Thapa DO Primary Care Provider Allergies Active AllergyReactionsCriticalityNoted DateComments*Eqllumbi97/18/2010 WyuyolszizxdcjHigudvctTfot81/25/2013 Other reaction(s): Other: See Comments Passing out, turning white. DoxycyclineDizzy/Onvfwxy0911/29/2021 Other reaction(s): Other: See Comments Other reaction(s): dizziness dizziness Penicillin G CqpaymGxzn39/21/2022 Other reaction(s): rash Medications MedicationSigDispense QuantityRefillsLast FilledStart DateEnd DateStatus zonisamide 100 MG capsule TAKE 1CAP BY MOUTH AT BEDTIME.CAN INCREASE BY 1CAP EVERY 2 WKS ONLY IF NEEDED*MAX 4CAPS AT BEDTIME*11/11/2022ctive clindamycin 1 % Lotion lotion Apply 1 Application topically daily.08/17/2022ctive pimecrolimus 1 % Cream Apply 1 Application topically daily.09/12/2022ctive tretinoin 0.1 % Cream Apply 1 Application topically daily.05/18/2022ctive Active Problems ProblemNoted DateDiagnosed DateObesity (BMI 30.0-34.9)12/14/2022cne vulgaris 12/14/20225509Anfioaocssdourys52/08/2023Weight gain12/14/2022bnormal thyroid function test12/14/2022 Social History Tobacco UseTypesPacks/DayYears UsedDateSmoking Tobacco: NeverSmokeless Tobacco: Never Tobacco Cessation:Counseling Given: Not Answered Alcohol UseStandard Drinks/WeekCommentsNever0 (1 standard drink = 0.6 oz pure alcohol)CommentsNoSex and Gender InformationValueDate RecordedSex Assigned at BirthNot on fileLegal GhdXugyzi24/20/2023 11:58 AM ESTGender BkfdjmhnThubws50/20/2023 12:06 PM ESTSexual OrientationNot on file Last Filed Vital Signs Vital SignReadingTime TakenCommentsBlood Xmcsshbp641/7203 11:07 AM EST Iqmcx3139 11:07 AM ESTTemperature--Respiratory Xchp546612/14/2022 11:07 AM ESTOxygen Saturation--Inhaled Oxygen Concentration--Pegqbq62.4 kg (203 lb 9.6 oz)12/14/2022 11:07 AM NXGIwuolq323.6 cm (5' 6 )12/14/2022 11:07 AM ESTBody Mass Index32.8603 11:07 AM EST Plan of Treatment Health MaintenanceDue DateLast DoneCommentsGONORRHEA AVMOAK03 2002HEPATITIS C VIRUS ABIVFJNWD36/10/2003HIV SCREENING OHKTNOLXBH59/10/2018CHLAMYDIA SCREEN 2018CERVICAL CANCER SCREENING LLTZXHFBGV98/10/2024COVID-19 VACCINE ( season)/INFLUENZA VACCINE (#1), 06/04/2021, 07/02/2020, Additional history nimbfpEGWOGGZ11/17/42347406/25/2015, 01/30/2008, 11/08/2004, Additional history existsHEP B VACCINECompleted 04/21/2003, 2002, 2002PNEUMOCOCCAL VACCINE SERIESAged Out04/21/2004, 04/21/2004, 09/09/2003, Additional history existsNo longer eligible based on patient's age to complete this topicTDAP (ADULT)Bqmdvhabl30/17/2015, 01/30/2008, 11/08/2004, Additional history existsHPV VACCINE YKKULdqbjizze47/05/2017, 12/15/2016, 12/15/2016HPV OUOZFJZCwfmewybb12/05/2017, 12/15/2016, 12/15/2016 Insurance Care Teams Team MemberRelationshipSpecialtyStart DateEnd Date Katie Thapa DO [address] [facility] [address] [place] [address] PCP - GeneralFamily Medicine11/28/22
--- OUTSIDE RECORDS SUMMARY | 2025-07-31 09:47 | XMS_ITS | Clinical Summary ---
Author Organization [facility] Address [address], [address] [place] [address] Care Team Providers Care Steel Analyst Name Role Phone Pete Thapa Primary Care Provider [phone] Allergies Active AllergyReactionsCriticalityNoted DateCommentsCyproheptadineDiarrhea,Other (See Comments)High08/02/2013 Other Reaction(s): Other: See Comments Other reaction(s): Other: See Comments Passing out, turning white. Passing out, turning white. Passing out, turning white. DoxycyclineDizziness or Vertigo,Other (See Comments)Low11/29/2021 Other Reaction(s): Dizzy/Vertigo, Other: See Comments Other reaction(s): Other: See Comments Other reaction(s): dizziness dizziness dizziness dizziness Levonorgestrel-Ethinyl EstradOther (See Comments)12/24/2009 Other Reaction(s): Other (See Comments) Patient not sure Patient not sure Penicillin G RxnfbuWhljXgk18/21/2022 Other reaction(s): rash Medications No known medications Social History Tobacco UseTypesPacks/DayYears UsedDateSmoking Tobacco: NeverSmokeless Tobacco: Never Tobacco Cessation:Counseling Given: Not Answered Alcohol UseStandard Drinks/WeekCommentsNever0 (1 standard drink = 0.6 oz pure alcohol)AUDIT-CAnswerDate RecordedQ1: How often do you have a drink containing alcohol?Never01/11/2025Q2: How many drinks containing alcohol do you have on a typical day when you are drinking?Patient does not drink01/11/2025Q3: How often do you have six or more drinks on one occasion?Never01/11/2025Interpersonal Safety Domain Source: IP Abuse ScreeningAnswerDate RecordedPhysical abuseDenies 11/30/2024Verbal qjfjkXqolch31/22/2025Emotional wfirvEkhebv14/22/2025Financial dsxylLkaeyi89/22/2025Sexual tcuvaGmfnhe43/22/2025CommentsNoSex and Gender InformationValueDate RecordedSex Assigned at BirthNot on fileLegal Sex Ohzwam7401/30/2019 9:23 AM EDTGender IdentityNot on fileSexual OrientationNot on file Last Filed Vital Signs Vital SignReadingTime TakenCommentsBlood Iitxfjav509/7304 7:20 PM EDT Nrwie5758/05/2025 7:22 PM HQYReqadmlkrky93.7 ??C (98 ??F)01/11/2025 6:30 PM EDT Respiratory Woee769601/11/2025 7:22 PM EDTOxygen Couwtnrgnb708%01/11/2025 7:22 PM EDTInhaled Oxygen Concentration--Qrhgwj98 kg (156 lb 9.6 oz)01/11/2025 6:30 PM GVZWphwtp943.2 cm (5' 7 )01/11/2025 6:30 PM EDTBody Mass Index24.53001/11/2025 6:30 PM EDT Plan of Treatment Health MaintenanceDue DateLast DoneCommentsVaricella vaccine (2 of 2 - 2-dose childhood series)Depression Ifhlgo7810/18/2014HIV screen 2017Chlamydia/GC jwkaiv5910/18/2018Meningococcal B vaccine (1 of 2 - Standard)2018Hepatitis C hyzcny551Pap smear2023Flu vaccine (#1)/02/2024, 06/23/2023, 08/03/2022, Additional history exists COVID-19 Vaccine (3 - season)/10/2022, 12/22/2022 DTaP/Tdap/Td vaccine (7 - Td or Tdap)/, 01/30/2008, 11/08/2004, Additional history existsHepatitis B acmsqjvTxzyvapbi21/14/2003, 2002, 2002Hib ocnqijyYrndkhsmh14/14/2004, 04/21/2003, 02/17/2003, Additional history existsPneumococcal 0-49 years VaccineAged Out04/21/2004, 09/09/2003, 04/21/2003, Additional history existsNo longer eligible based on patient's age to complete this topicMeasles,Mumps,Rubella (MMR) vaccine Mmyrtqgvdgrg79/23/2008, 04/21/2004Polio scumgwbJogjpkbpf45/23/2008, 09/09/2003, 02/17/2003, Additional history existsMeningococcal (ACWY) vaccineAged Out 07/31/2015No longer eligible based on patient's age to complete this topicHPV jtsaoruStbniygfh49/05/2017, 12/15/2016Hepatitis A qsoyvgwAqmuqkvxr06/05/2017, 12/15/2016 Insurance * Guarantor: LOU Mendes TypeRelation to PatientDate of BirthPhone Billing AddressPersonal/FamilyFather [address] [place] [address] Care Teams Team MemberRelationshipSpecialtyStart DateEnd Date Pete Thapa DO [address] [place] [address] [facility] Yrgpuivt16/24/23
--- OUTSIDE RECORDS SUMMARY | 2025-07-31 09:47 | XMS_ITS | Encounter Summary ---
Author Organization [facility] Address [address] [place] [address] Care Team Providers Care Service Tester Name Role Phone Pete Thapa Primary Care Provider [phone] Reason for Visit * ReasonOnset DateCommentsER Follow-up07/21/2025 Encounter Details DateTypeDepartmentCare Team (Latest Contact Info)Ipoyqeydjci53/13/2025Telephone [facility] [address] [place] [phone] Gm Gomez LPN [address] [place] [address] ER Follow-up Social History Tobacco UseTypesPacks/DayYears UsedDateSmoking Tobacco: NeverSmokeless Tobacco: NeverAlcohol UseStandard Drinks/WeekCommentsNot Currently0 (1 standard drink = 0.6 oz pure alcohol)caffeine: [id number] Health LiteracyAnswerDate RecordedHow often do you need to have someone help you when you read instructions, pamphlets, or other written material from your doctor or pharmacy? Patient declines to qlpnwjf6106/11/2025Humiliation, Afraid, Rape, and Kick questionnaireAnswerDate RecordedWithin the [...] times a week06/11/2025How often do you attend mandaen or restorationist services?1 to 4 times per year06/11/2025Do you belong to any clubs or organizations such as mandaen groups, unions, fraternal or athletic groups, or school groups?No06/11/2025How often do you attend meetings of the clubs or organizations you belong to?Never06/11/2025re you , , , , never , or living with a partner?Patient actuhnje16/03/2025 AUDIT-CAnswerDate RecordedQ1: How often do you have a drink containing alcohol? Monthly or less06/11/2025Q2: How many drinks containing alcohol do you have on a typical day when you are drinking?Patient does not drink06/11/2025Q3: How often do you have six or more drinks on one occasion?Less than ecrczsp9206/11/2025 Overall Financial Resource Strain (CARDIA)AnswerDate RecordedHow hard is it for you to pay for the very basics like food, housing, medical care, and heating? Somewhat hard06/11/2025PHQ-2AnswerDate RecordedPatient Health Questionnaire-2 Vlihc625F[facility]hr[facility] [place] of Occupational Health - Occupational Stress QuestionnaireAnswerDate RecordedDo you feel stress - tense, restless, nervous, or anxious, or unable to sleep at night because yourmind is troubled all the time - these days?Only a custpq2106/11/2025Exercise Vital SignAnswerDate Recorded On average, how many [...] needed for daily living?No06/11/2025Edinburgh Depression ScaleAnswerDate Recorded [place] Depression Scale Ihtfn10510/10/2022The thought of harming myself has occurred to me.Never08/10/2023Housing Stability Vital SignAnswerDate RecordedIn the last 12 months, was there a time when you were not able to pay the mortgage or rent on time?No06/11/2025Number of Times Moved in the Last Year Not on file06/11/2025t any time in the past 12 months, were you homeless or living in a prison (including now)?No06/11/2025Estimated Date of WpxmvvicRoidxikdMtw05/30/2026ased on last menstrual period of 05/31/2025Sex and Gender InformationValueDate RecordedSex Assigned at BirthNot on fileLegal Sex Ujnhwr3012/21/2022 7:12 PM EDTGender RuclaemyVoheop82/15/2023 7:12 PM EDTSexual OrientationNot on fileOccupationIndustryJob Start DateJob End DateCountry side Not on fileNot on fileNot on filedocumented as of this encounter Miscellaneous Notes * Telephone Encounter - Gm Gomez LPN - 07/21/2025 1:35 PM EDT [facility] ER 07/19/2025 Vaginal bleeding, abdominal cramping. TVUS, labs done. Dx: acute vaginal bleedingin first trimester . Spoke to pt, she states she did have some vaginal bleeding which alerted her to head to the ER. Shestates she is doing well now. Did advise to reach out to obgyn so they are aware. Faxed over report to Dr. Henley so they have this on file. ER MORENITA completed. Advised to call if anything further is needed. documented in this encounter Plan of Treatment DateTypeDepartmentCare Team (Latest Contact Info)Eijguigbbyt84/23/2025 10:30 AM EDTOffice Visit [facility] [place] [facility] [address] [place] [phone] Jona Henley MD [address] [place] [address] 07/31/2025 2:45 PM EDTAncillary Procedure [facility] [place] [facility] [address] [place] [address] 08/18/2025 12:45 PM ESTInitial [facility] [place] [facility] [address] [place] [phone] Jona Henley MD [address] [place] [address] documented as of this encounter Goals GoalPatient Goal TypeAssociated ProblemsRecent ProgressPatient-Stated?Author Reminders Care PlanOB RemindersLaure Carter, RNdocumented as of this encounter Visit Diagnoses Not on filedocumented in this encounter Additional Health Concerns Active ProblemsNoted DateDiagnosed DateOB Eagvtlgiz41/10/2025 documented as of this encounter Care Teams Team MemberRelationshipSpecialtyStart DateEnd Date Pete Thapa DO [address] [place] [address] PCP - GeneralFamily Medicine02/14/23documented as of this encounter
--- OUTSIDE RECORDS SUMMARY | 2025-07-31 09:47 | XMS_ITS | Encounter Summary ---
Author Organization [facility] Address [address] [place] [address] Care Team Providers Care Review Coordinator Name Role Phone Pete Thapa DO Primary Care Provider [phone] Encounter Details DateTypeDepartmentCare Team (Latest Contact Info)Ktbtswftjhv03/10/2025Results Follow-Up [facility] [place] [facility] [address] [facility] [address] [place] [phone] Jona Henley MD [address] [facility] [place] [address] Urine culture, Urine Culture Clean Catch Reflex Social History Tobacco UseTypesPacks/DayYears UsedDateSmoking Tobacco: NeverSmokeless Tobacco: NeverAlcohol UseStandard Drinks/WeekCommentsNot Currently0 (1 standard drink = 0.6 oz pure alcohol)caffeine: [id number] Health LiteracyAnswerDate RecordedHow often do you need to have someone help you when you read instructions, pamphlets, or other written material from your doctor or pharmacy? Patient declines to nnqpgyg4406/11/2025Humiliation, Afraid, Rape, and Kick questionnaireAnswerDate RecordedWithin the [...] times a week06/11/2025How often do you attend jainism or catholic services?1 to 4 times per year06/11/2025Do you belong to any clubs or organizations such as jainism groups, unions, fraTerraX Minerals or athletic groups, or school groups?No06/11/2025How often do you attend meetings of the clubs or organizations you belong to?Never06/11/2025re you , , , , never , or living with a partner?Patient momyvsts65/03/2025 AUDIT-CAnswerDate RecordedQ1: How often do you have a drink containing alcohol? Monthly or less06/11/2025Q2: How many drinks containing alcohol do you have on a typical day when you are drinking?Patient does not drink06/11/2025Q3: How often do you have six or more drinks on one occasion?Less than dojykep2006/11/2025 Overall Financial Resource Strain (CARDIA)AnswerDate RecordedHow hard is it for you to pay for the very basics like food, housing, medical care, and heating? Somewhat hard06/11/2025PHQ-2AnswerDate RecordedPatient Health Questionnaire-2 Pznxp922Fingunn[facility] [place] of Occupational Health - Occupational Stress QuestionnaireAnswerDate RecordedDo you feel stress - tense, restless, nervous, or anxious, or unable to sleep at night because yourmind is troubled all the time - these days?Only a zjqctt3606/11/2025Exercise Vital SignAnswerDate Recorded On average, how many [...] needed for daily living?No06/11/2025Edinburgh Depression ScaleAnswerDate Recorded [place] Depression Scale Egfyk94610/10/2022The thought of harming myself has occurred to me.Never08/10/2023Housing Stability Vital SignAnswerDate RecordedIn the last 12 months, was there a time when you were not able to pay the mortgage or rent on time?No06/11/2025Number of Times Moved in the Last Year Not on file06/11/2025t any time in the past 12 months, were you homeless or living in a fci (including now)?No06/11/2025Estimated Date of YeuerpawAqrmhlysIlu21/30/2026ased on last menstrual period of 05/31/2025Sex and Gender InformationValueDate RecordedSex Assigned at BirthNot on fileLegal Sex Ejxvoq3312/21/2022 7:12 PM EDTGender SybdkqxcXttohh89/15/2023 7:12 PM EDTSexual OrientationNot on fileOccupationIndustryJob Start DateJob End DateCountry side Not on fileNot on fileNot on filedocumented as of this encounter Plan of Treatment DateTypeDepartmentCare Team (Latest Contact Info)Pbhowevtjiu38/23/2025 10:30 AM EDTOffice Visit [facility] [place] [facility] [address] [facility] [address] [place] [phone] Jona Henley MD [address] [facility] [address] [place] [address] 07/31/2025 2:45 PM EDTAncillary Procedure [facility] [place] [facility] [address] [place] [phone] 08/18/2025 12:45 PM ESTInitial [facility] [place] [facility] [address] [place] [phone] Jona Henley MD [address] [place] [address] NameTypePriorityAssociated DiagnosesOrder SchedulehCG, quantitativeLabRoutine Threatened miscarriage ([facility]) Expected: 07/30/2025 (Approximate), Expires: 07/30/2026documented as of this encounter Goals GoalPatient Goal TypeAssociated ProblemsRecent ProgressPatient-Stated?Author Reminders Care PlanOB RemindersLaure Carter RNdocumented as of this encounter Visit Diagnoses Diagnosis Threatened miscarriage ([facility]) Threatened , unspecified as to episode of care documented in this encounter Additional Health Concerns Active ProblemsNoted DateDiagnosed DateOB Ovhwrhswx71/10/2025 documented as of this encounter Care Teams Team MemberRelationshipSpecialtyStart DateEnd Date Pete Thapa DO [address] [place] [address] PCP - GeneralFamily Medicine02/14/23documented as of this encounter
--- OUTSIDE RECORDS SUMMARY | 2025-07-31 09:47 | XMS_ITS | Encounter Summary ---
Author Organization [facility] Address [address] [facility] [place] [address] Care Team Providers Care Soda Flaker Name Role Phone Pete Thapa DO Primary Care Provider [phone] Encounter Details DateTypeDepartmentCare Team (Latest Contact Info)Hvgxdsmewhk67/22/2025Orders Only [facility] [place] [facility] [address] [facility] [address] [place] [address] Jona Henley MD [address] [facility] [place] [address] Urinary tract infection without hematuria, site unspecified (Primary Dx) Social History Tobacco UseTypesPacks/DayYears UsedDateSmoking Tobacco: NeverSmokeless Tobacco: NeverAlcohol UseStandard Drinks/WeekCommentsNot Currently0 (1 standard drink = 0.6 oz pure alcohol)caffeine: moqbeyhaqkusU3042 Health LiteracyAnswerDate RecordedHow often do you need to have someone help you when you read instructions, pamphlets, or other written material from your doctor or pharmacy? Patient declines to eperzfd7306/11/2025Humiliation, Afraid, Rape, and Kick questionnaireAnswerDate RecordedWithin the [...] times a week06/11/2025How often do you attend restoration or mandaen services?1 to 4 times per year06/11/2025Do you belong to any clubs or organizations such as restoration groups, unions, fraMomox or athletic groups, or school groups?No06/11/2025How often do you attend meetings of the clubs or organizations you belong to?Never06/11/2025re you , , , , never , or living with a partner?Patient ulpecbva71/03/2025 AUDIT-CAnswerDate RecordedQ1: How often do you have a drink containing alcohol? Monthly or less06/11/2025Q2: How many drinks containing alcohol do you have on a typical day when you are drinking?Patient does not drink06/11/2025Q3: How often do you have six or more drinks on one occasion?Less than eswvjcf4906/11/2025 Overall Financial Resource Strain (CARDIA)AnswerDate RecordedHow hard is it for you to pay for the very basics like food, housing, medical care, and heating? Somewhat hard06/11/2025PHQ-2AnswerDate RecordedPatient Health Questionnaire-2 Nrobp958Fincentral valley medical center [place] of Occupational Health - Occupational Stress QuestionnaireAnswerDate RecordedDo you feel stress - tense, restless, nervous, or anxious, or unable to sleep at night because yourmind is troubled all the time - these days?Only a pqgpmk8706/11/2025Exercise Vital SignAnswerDate Recorded On average, how many [...] needed for daily living?No06/11/2025Edinburgh Depression ScaleAnswerDate Recorded [place] Depression Scale Qabha84610/10/2022The thought of harming myself has occurred to me.Never08/10/2023Housing Stability Vital SignAnswerDate RecordedIn the last 12 months, was there a time when you were not able to pay the mortgage or rent on time?No06/11/2025Number of Times Moved in the Last Year Not on file06/11/2025t any time in the past 12 months, were you homeless or living in a fdc (including now)?No06/11/2025Estimated Date of ZtcxbabuUhpwtpboKel76/30/2026ased on last menstrual period of 05/31/2025Sex and Gender InformationValueDate RecordedSex Assigned at BirthNot on fileLegal Sex Wtvxsz2712/21/2022 7:12 PM EDTGender NcgrjfhuOauqpu07/15/2023 7:12 PM EDTSexual OrientationNot on fileOccupationIndustryJob Start DateJob End DateCountry side Not on fileNot on fileNot on filedocumented as of this encounter Progress Notes * Jona Henley MD - 07/30/2025 1:40 PM EDT UTI documented in this encounter Plan of Treatment DateTypeDepartmentCare Team (Latest Contact Info)Qbykhoubmxl38/23/2025 10:30 AM EDTOffice Visit [facility] [address] [place] [phone] Jona Henley MD [address] [place] [address] 07/31/2025 2:45 PM EDTAncillary Procedure [facility] [address] [place] [phone] 08/18/2025 12:45 PM ESTInitial [facility] [address] [place] [phone] Jona Henley MD [address] [place] [address] documented as of this encounter Goals GoalPatient Goal TypeAssociated ProblemsRecent ProgressPatient-Stated?Author Reminders Care PlanOB RemindersLaure Carter, RNdocumented as of this encounter Visit Diagnoses Diagnosis Urinary tract infection without hematuria, site unspecified- Primary documented in this encounter Additional Health Concerns Active ProblemsNoted DateDiagnosed DateOB Ntqbsgcki65/10/2025 documented as of this encounter Care Teams Team MemberRelationshipSpecialtyStart DateEnd Date Pete Thapa DO [address] [place] [address] PCP - GeneralFamily Medicine02/14/23documented as of this encounter
--- OUTSIDE RECORDS SUMMARY | 2025-07-31 09:47 | XMS_ITS | Clinical Summary ---
Author Organization [employer] [facility] Address [id number] [address] [place] [address] Care Team Providers Care Grocery Clerk Name Role Phone Alanis Sky DO, George R Primary Care Provider + Allergies Active AllergyReactionsCriticalityNoted DateCommentsDoxycyclineDizzinessLow 12/16/2021enicillin G ZfuseqYyjnLoo06/10/2022ollen ExtractsOther (See Comments)Low08/20/2024 Runny nose and itchy eyes Medications MedicationSigDispense QuantityRefillsLast FilledStart DateEnd DateStatus methylphenidate HCl (CONCERTA) 18 mg CR tablet Indications:attention-deficit hyperactivity disorderTake 1 tablet (18 mg total) by mouth every morning Indications: attention deficit disorder with hype ractivity.Active Active Problems ProblemNoted DateDiagnosed YcerCmbfpvkdsuc13/21/2025Lesion of mlmxxb8708/09/2024 Chronic throat pain07/03/20243356Khshyyidpmw43/25/2024denoid crcrtmhcshy69/25/2024 Acute right otitis media03/19/2024Otomycosis- right ear01/04/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 12/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 Overview (12/27/2022): Added automatically from request for surgery [id number] Right lower quadrant abdominal pain11/23/2022 Overview (11/23/2022): Added automatically from request for surgery [id number] Gross hiffsglqd61/15/2023 Overview (11/23/2022): Added automatically from request for surgery [id number] Nausea and hjqzqxwy70/07/2022Cerumen debris on tympanic membrane of both ears 02/08/2021hronic otitis media11/28/2019Dysfunction of both eustachian tubes 09/27/2017Hearing loss of right ear09/27/2017Anxiety Resolved Problems ProblemNoted DateDiagnosed DateResolved DateAcute right otitis media10/15/2019 2Chronic left ear painhronic perichondritis of external ear, leftLeft otitis media 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 Encounters DateTypeDepartmentCare AgwtHgwynjsvrji34/26/2025Telephone [facility] [address] [place] [address] Doris Hernandez 07/03/2025Telephone [facility], [facility] Department of [place] [address] [facility] [address] [place] [address] Otilia Oviedo from Last 3 Months Immunizations ImmunizationAdministration DatesNext HggDYaH6401/30/2008,11/08/2004,04/21/2003, 02/17/2003,2002HPV Xcgekqojbzll32/09/7530ITU963/05/2017Hep A, 2 Dose 07/13/2017Hep B, Adolescent or Hnktvrrwj27/14/2003,2002,2002 Hepatitis A012/15/2016HiB04/21/2004,04/21/2003,02/17/2003,2002IPV01/30/2008 ,09/09/2003,02/17/2003,2002Influenza, Injectable, quadrivalent (PF) 07/13/2017Influenza, Kjdirgwetxd54/30/2015,07/30/2013,07/28/2011,08/24/2010, 07/22/2009,08/31/2004,10/15/2003,09/12/2003MMR04,04/21/2004Meningococcal Mponuomww50/23/2015Pneumococcal Vlnzbqcqx82/14/2004,09/09/2003,04/21/2003, 2002Tdap06/25/20155863Tvfigfqxs38/31/2005 Family History Medical HistoryRelationNameCommentsBack ProblemsFatherHeart diseaseMaternal GrandfatherLHeart diseaseMaternal GrandmotherCleona GundlachAsthmaMotherLCancer Paternal GrandfatherBreast cancerPaternal GrandmotherLHypertensionPaternal GrandmotherLThyroid diseasePaternal GrandmotherLAnesthesia problemsNeg Hx Bleeding DisorderNeg HxClotting disorderNeg HxColon cancerNeg HxDiabetesNeg Hx Ovarian cancerNeg HxStrokeNeg HxRelationNameStatusCommentsFatherAliveMaternal GrandfatherLAliveMaternal GrandmotherCleona GundlachAliveMotherLAlivePaternal GrandfatherDeceasedPaternal GrandmotherLAlive Social History Tobacco UseTypesPacks/DayYears UsedDateSmoking Tobacco: NeverSmokeless Tobacco: Never Tobacco Cessation:Counseling Given: Not Answered Alcohol UseStandard Drinks/WeekCommentsYes0 (1 standard drink = 0.6 oz pure alcohol)q 1x per month[facility] UtilitiesAnswerDate RecordedIn the past 12 months has the electric, gas, oil, or water Embedly threatened to shut off services in your home?No02/27/2025PHQ-2AnswerDate RecordedTotal Hdswy2593PRAPARE - TransportationAnswerDate RecordedIn the past 12 months, has lack of transportation kept you from medical appointments or from getting medications?No 02/27/2025In the past 12 months, has lack of transportation kept you from meetings, work, or from getting things needed for daily living?No02/27/2025 Housing InstabilityAnswerDate RecordedAre you worried or concerned that in the next two months you may not have stable housing that you own, rent or stay in as a part of a household?No5ChildcareAnswerDate RecordedChildcareUnknown 03/14/2019EmploymentAnswerDate LazbsyxqSaukaoynfjLzpnpgd37/06/2019Hunger ScreeningAnswerDate RecordedWithin the past 12 months we worried whether our food would run out before we got money to buy more.Never True02/27/2025Within the past 12 months the food we bought just didn't last and we didn't have money to get more.Never True02/27/2025Purpose - LifeAnswerDate RecordedPurpose and direction in lgauXjlfhhk00/11/2021CommentsNoSex and Gender Information ValueDate RecordedSex Assigned at OydllAhhrph29/07/2022 3:03 PM ESTLegal Sex Vgwbru9303/03/2017 7:57 AM EDTGender ZnwrovmiSiejlt04/07/2022 3:03 PM ESTSexual OrientationNot on file Last Filed Vital Signs Vital SignReadingTime TakenCommentsBlood Yllfzvft087/76002/27/2025 1:15 PM EDT Rylow2742/22/2025 1:15 PM XXLTwmtjtncfro46.7 ??C (98 ??F)02/27/2025 1:15 PM EDT Respiratory Szek216202/27/2025 1:15 PM EDTOxygen Qtfwtivoxk14%02/27/2025 9:21 AM EDTInhaled Oxygen Concentration--Exgeva25.5 kg (140 lb)02/26/2025 5:33 PM EDT Anbagm447.6 cm (5' 6 )02/26/2025 5:33 PM EDTBody Mass Index22.6002/26/2025 5:33 PM EDT Plan of Treatment DateTypeDepartmentCare Team (Latest Contact Info)Zxwxtsagklx39/22/2025 4:00 PM ESTTelemedicine [facility] Department [facility] [address] [place] [address] Bari Caro MD [address] [facility] [address] [place], [place] [id number] Health MaintenanceDue DateLast DoneCommentsPap Smear4Depression Paucnagpj323COVID-19 Vaccine (3 - season)2025 03/09/2023, 12/22/2022Influenza Sxibruo67/02/2024, 06/23/2023, 08/03/2022, Additional history existsDTaP,Tdap and Td Vaccines (7 - Td or Tdap) , 01/30/2008, 11/08/2004, Additional history existsAdult BMI Zzoetomdv87/Tobacco Gzxjortwz88/ Goals GoalPatient Goal TypeAssociated ProblemsRecent ProgressPatient-Stated?Author Home Cherrie Weathers LSW Note: Evaluation of progress towards goal: Safe dc transition from hospital to home. Medical Devices ExplantedTypeAreaManufacturerDevice IdentifierShelf Expiration DateModel / Serial / LotTube Ear [facility] B[facility]/5 [facility] - [id number] Implanted:Qty: 1 on 11/02/2017 by Karthikeyan Lopez MD PhD at [facility] Explanted:Qty: 1 on 06/04/2024 [facility] ImplantMEDTRONIC [id number] / / [id number] Insurance * Guarantor: Johan ALLEN TypeRelation to PatientDate of BirthPhone Billing AddressPersonal/FamilyFather [address] [place] [address] Advance Directives * Full Code (Latest Code Status on File) Date ActivatedDate InactivatedComments02/27/2025 12:25 AM02/27/2025 9:28 PM * Full Code Date ActivatedDate InactivatedComments01/27/2023 2:20 PM01/30/2023 2:01 PM * Full Code Date ActivatedDate InactivatedComments12/13/2021 3:09 PM12/14/2021 5:43 PM Care Teams Team MemberRelationshipSpecialtyStart DateEnd Date Pete Thapa Jr., [address] [place] [address] PCP - GeneralFamily Medicine02/26/25
--- OUTSIDE RECORDS SUMMARY | 2025-07-31 09:47 | XMS_ITS | Encounter Summary ---
Author Organization [facility] Address [address] [facility] [place] [address] Care Team Providers Care Quality Assurance Auditor Name Role Phone Pete Thapa DO Primary Care Provider [phone] Encounter Details DateTypeDepartmentCare Team (Latest Contact Info)Ptozvycdnpx42/22/2025Orders Only [facility] [address] [facility] [address] [place] [address] Jona Henley MD [address] [facility] [address] [place] [address] Social History Tobacco UseTypesPacks/DayYears UsedDateSmoking Tobacco: NeverSmokeless Tobacco: NeverAlcohol UseStandard Drinks/WeekCommentsNot Currently0 (1 standard drink = 0.6 oz pure alcohol)caffeine: psinprpfjkelS8322 Health LiteracyAnswerDate RecordedHow often do you need to have someone help you when you read instructions, pamphlets, or other written material from your doctor or pharmacy? Patient declines to kzhrpug7706/11/2025Humiliation, Afraid, Rape, and Kick questionnaireAnswerDate RecordedWithin the [...] times a week06/11/2025How often do you attend worship or anabaptist services?1 to 4 times per year06/11/2025Do you belong to any clubs or organizations such as worship groups, unions, fraSymmetric Computing or athletic groups, or school groups?No06/11/2025How often do you attend meetings of the clubs or organizations you belong to?Never06/11/2025re you , , , , never , or living with a partner?Patient lbqmtmta96/03/2025 AUDIT-CAnswerDate RecordedQ1: How often do you have a drink containing alcohol? Monthly or less06/11/2025Q2: How many drinks containing alcohol do you have on a typical day when you are drinking?Patient does not drink06/11/2025Q3: How often do you have six or more drinks on one occasion?Less than wzcdaep8006/11/2025 Overall Financial Resource Strain (CARDIA)AnswerDate RecordedHow hard is it for you to pay for the very basics like food, housing, medical care, and heating? Somewhat hard06/11/2025PHQ-2AnswerDate RecordedPatient Health Questionnaire-2 Iboai307[facility] [place] of Occupational Health - Occupational Stress QuestionnaireAnswerDate RecordedDo you feel stress - tense, restless, nervous, or anxious, or unable to sleep at night because yourmind is troubled all the time - these days?Only a bdsbny0906/11/2025Exercise Vital SignAnswerDate Recorded On average, how many [...] needed for daily living?No06/11/2025Edinburgh Depression ScaleAnswerDate Recorded [place] Depression Scale Lmfed71610/10/2022The thought of harming myself has occurred to me.Never08/10/2023Housing Stability Vital SignAnswerDate RecordedIn the last 12 months, was there a time when you were not able to pay the mortgage or rent on time?No06/11/2025Number of Times Moved in the Last Year Not on file06/11/2025t any time in the past 12 months, were you homeless or living in a jail (including now)?No06/11/2025Estimated Date of MmsplyvrDuyufdsbXvl88/30/2026ased on last menstrual period of 05/31/2025Sex and Gender InformationValueDate RecordedSex Assigned at BirthNot on fileLegal Sex Mcpwnl7112/21/2022 7:12 PM EDTGender JtqhsdboYetwcn71/15/2023 7:12 PM EDTSexual OrientationNot on fileOccupationIndustryJob Start DateJob End DateCountry side Not on fileNot on fileNot on filedocumented as of this encounter Plan of Treatment DateTypeDepartmentCare Team (Latest Contact Info)Mksgkmxrajx51/23/2025 10:30 AM EDTOffice Visit BRANDEN APONTE [address] [place] [address] Jona Henley MD [address] [place] [address] 07/31/2025 2:45 PM EDTAncillary Procedure [facility] [address] [place] [address] 08/18/2025 12:45 PM ESTInitial [facility] [address] [place] [address] Jona Henley MD [address] [place] [address] documented as of this encounter Goals GoalPatient Goal TypeAssociated ProblemsRecent ProgressPatient-Stated?Author Reminders Care PlanOB RemindersLaure Carter, RNdocumented as of this encounter Visit Diagnoses Not on filedocumented in this encounter Additional Health Concerns Active ProblemsNoted DateDiagnosed DateOB Znninrpae16/10/2025 documented as of this encounter Care Teams Team MemberRelationshipSpecialtyStart DateEnd Date Pete Thapa DO [address] [place] [address] PCP - GeneralFamily Medicine02/14/23documented as of this encounter
--- OUTSIDE RECORDS SUMMARY | 2025-07-31 09:47 | XMS_ITS | Encounter Summary ---
Author Organization [facility] Address [address] [facility] [place] [address] Care Team Providers Care Blind Teacher Name Role Phone Pete Thapa DO Primary Care Provider [phone] Encounter Details DateTypeDepartmentCare Team (Latest Contact Info)Roetnajdwjx55/07/2025Orders Only [facility] Unsolicited Jona Henley MD [address] [place] [address] Social History Tobacco UseTypesPacks/DayYears UsedDateSmoking Tobacco: NeverSmokeless Tobacco: NeverAlcohol UseStandard Drinks/WeekCommentsNot Currently0 (1 standard drink = 0.6 oz pure alcohol)caffeine: qoldL5251 Health LiteracyAnswerDate RecordedHow often do you need to have someone help you when you read instructions, pamphlets, or other written material from your doctor or pharmacy?Patient declines to nqsbcen5306/11/2025Humiliation, Afraid, Rape, and Kick questionnaire AnswerDate RecordedWithin [...] times a week06/11/2025How often do you attend gnosticism or christian services?1 to 4 times per year06/11/2025Do you belong to any clubs or organizations such as gnosticism groups, unions, fraPayment plugin or athletic groups, or school groups?No06/11/2025How often do you attend meetings of the clubs or organizations you belong to?Never06/11/2025re you , , , , never , or living with a partner?Patient xzlxemzr84/03/2025 AUDIT-CAnswerDate RecordedQ1: How often do you have a drink containing alcohol? Monthly or less06/11/2025Q2: How many drinks containing alcohol do you have on a typical day when you are drinking?Patient does not drink06/11/2025Q3: How often do you have six or more drinks on one occasion?Less than hhvtikl6706/11/2025 Overall Financial Resource Strain (CARDIA)AnswerDate RecordedHow hard is it for you to pay for the very basics like food, housing, medical care, and heating? Somewhat hard06/11/2025PHQ-2AnswerDate RecordedPatient Health Questionnaire-2 Vkcca604[facility]an[facility] [place] of Occupational Health - Occupational Stress QuestionnaireAnswerDate RecordedDo you feel stress - tense, restless, nervous, or anxious, or unable to sleep at night because yourmind is troubled all the time - these days?Only a wzsfhv9406/11/2025Exercise Vital SignAnswerDate Recorded On average, how many [...] needed for daily living?No06/11/2025Edinburgh Depression ScaleAnswerDate Recorded [place] Depression Scale Rsshg65310/10/2022The thought of harming myself has occurred to me.Never08/10/2023Housing Stability Vital SignAnswerDate RecordedIn the last 12 months, was there a time when you were not able to pay the mortgage or rent on time?No06/11/2025Number of Times Moved in the Last Year Not on file06/11/2025t any time in the past 12 months, were you homeless or living in a fci (including now)?No06/11/2025CommentsNoSex and Gender InformationValueDate RecordedSex Assigned at BirthNot on fileLegal SexFemale 12/21/2022 7:12 PM EDTGender YhsruuosGtzmaf30/15/2023 7:12 PM EDTSexual OrientationNot on fileOccupationIndustryJob Start DateJob End DateCountry side Not on fileNot on fileNot on filedocumented as of this encounter Plan of Treatment DateTypeDepartmentCare Team (Latest Contact Info)Dlbojuhnbud93/23/2025 10:30 AM EDTOffice Visit BRANDEN APONTE [address] [place] [address] Jona Henley MD [address] [place] [address] 07/31/2025 2:45 PM EDTAncillary Procedure NOMEfe APONTE [address] [place] [address] 08/18/2025 12:45 PM ESTInitial NOMEfe APONTE [address] [place] [address] Jona Henley MD [address] [place] [address] documented as of this encounter Procedures Procedure NamePriorityDate/TimeAssociated DiagnosisCommentsURINE CULTURE CLEAN CATCH TXOAXERbgmvdo59/07/2025 12:00 AM EDT CULTURE, URINE, RNFATRIPhvucac98/07/2025 12:00 AM EDT documented in this encounter Results * (ABNORMAL) Urine Culture Clean Catch Reflex (07/15/2025 12:00 AM EDT)Component ValueRef RangeTest MethodAnalysis TimePerformed AtPathologist SignatureUr Cult 1Enterococcus faecalis(A)[facility]PComment: Enterococci susceptible to penicillin are predictably susceptible to ampicillin, amoxicillin, ampicillin-sulbactam, amoxicillin-clavulanate, and piperacillin-tazobactam for qvk-wsvh-forxxechr producing enterococci. (CLSI 2018) For Enterococcus species, aminoglycosides (except for high-level resistance screening), cephalosporins, clindamycin, and trimethoprim-sulfamethoxazole are not effective clinically. (CLSI, B780-N55, 2016) Note: this isolate is vancomycin-susceptible. This information is provided for epidemiologic purposes only: vancomycin is not among the antibiotics recommended for therapy of urinary tract infections caused by Enterococcus. Greater than 100,000 colony forming units per mL Ur Cult 2Escherichia coli(A)[facility]PComment: Cefazolin with an MAGALI <=16 predicts susceptibility to the oral agents cefaclor, cefdinir, cefpodoxime, cefprozil, cefuroxime, cephalexin, and loracarbef when used for therapy of uncomplicated urinary tract infections due to E. coli, Klebsiella pneumoniae, and Proteus mirabilis. 10,000-25,000 colony forming units per mL Ur Cult SuscepCommentLABCORPComment: ? S = Susceptible; I = Intermediate; R = Resistant ? P = Positive; N = Negative ?MICS are expressed in micrograms per mL ?? Antibiotic ? RSLT#1 ?RSLT#2 ?RSLT#3 ?RSLT#4 Amoxicillin/Clavulanic Acid ?S Ampicillin ? S Cefazolin ?S Cefepime ? S Cefoxitin ?S Cefpodoxime ?S Ceftriaxone ?S Ciprofloxacin ?S ? S Ertapenem ?S Gentamicin ? S Levofloxacin ? S ? S Meropenem ?S Nitrofurantoin ? S ? S Penicillin ? S Piperacillin/Tazobactam ?S Tetracycline ? R ? S Tobramycin ? S Trimethoprim/Sulfa ? S Vancomycin ? S Specimen (Source)Anatomical Location / LateralityCollection Method / Volume Collection TimeReceived Time/04/2025 Narrative [facility] - 07/18/2025 5:07 PM EDT Performed at: - [facility] [address] ??[id number] Mat Weaver: Roland Martinez PhD, Phone: ??[phone] Authorizing ProviderResult TypeResult Dina RAYA URINE ORDERABLESFinal ResultPerforming OrganizationAddressCity/[facility] HospitalPhone Number [facility] * (ABNORMAL) Urine culture (07/15/2025 12:00 AM EDT)ComponentValueRef RangeTest MethodAnalysis TimePerformed AtPathologist SignatureUrine Cult Rt StatusFinal report(A)[facility]PSpecimen (Source)Anatomical Location / LateralityCollection Method / VolumeCollection TimeReceived Timeomment:URINE Narrative [facility] - 07/18/2025 5:07 PM EDT Performed at: 01 - [facility] [address] ??[id number] Mat Weaver: Roland Martinez PhD, Phone: ??[phone] Authorizing ProviderResult TypeResult Dina RAYA MICROBIOLOGY - GENERAL ORDERABLESFinal ResultPerforming OrganizationAddressCity/State/ZIP Code Phone Number [facility] documented in this encounter Visit Diagnoses Not on filedocumented in this encounter Care Teams Team MemberRelationsTemple Community HospitalpecialtyStart DateEnd Date Pete Thapa DO [address] [facility] [address] [place] [phone] PCP - GeneralFamily Medicine02/14/23documented as of this encounter
--- OUTSIDE RECORDS SUMMARY | 2025-07-31 09:47 | XMS_ITS ---
Author Organization [facility] Address [address] [place] [address] Care Team Providers Care Floor Scraper Name Role Phone Pete Thapa DO Primary Care Provider [phone] [facility] ([facility]) Status:Enrolled (Active) Start date:07/23/2025 Enrollment date:07/25/2025 Enrollment reason:Identified by Health Plan NameRelationshipPhoneAbarrera Ferrari LPN(Responsible Staff)Licensed Practical Nurse [phone] Continued Care and Services Coordination
--- OUTSIDE RECORDS SUMMARY | 2025-07-31 09:47 | XMS_ITS | Encounter Summary ---
Author Organization [facility] Address [address] [place] [address] Care Team Providers Care Manager Of Exhibitions And Collections Name Role Phone Pete Thapa DO Primary Care Provider [phone] Encounter Details DateTypeDepartmentCare Team (Latest Contact Info)Okzuplrwgpw52/10/2025Travel Social History Tobacco UseTypesPacks/DayYears UsedDateSmoking Tobacco: NeverSmokeless Tobacco: NeverAlcohol UseStandard Drinks/WeekCommentsNot Currently0 (1 standard drink = 0.6 oz pure alcohol)caffeine: lkxwajgkhseuX1531 Health LiteracyAnswerDate RecordedHow often do you need to have someone help you when you read instructions, pamphlets, or other written material from your doctor or pharmacy? Patient declines to rhalnvf4506/11/2025Humiliation, Afraid, Rape, and Kick questionnaireAnswerDate RecordedWithin the [...] times a week06/11/2025How often do you attend confucianism or latter-day services?1 to 4 times per year06/11/2025Do you belong to any clubs or organizations such as confucianism groups, unions, fraternal or athletic groups, or school groups?No06/11/2025How often do you attend meetings of the clubs or organizations you belong to?Never06/11/2025re you , , , , never , or living with a partner?Patient sattqpfj25/03/2025 AUDIT-CAnswerDate RecordedQ1: How often do you have a drink containing alcohol? Monthly or less06/11/2025Q2: How many drinks containing alcohol do you have on a typical day when you are drinking?Patient does not drink06/11/2025Q3: How often do you have six or more drinks on one occasion?Less than aosgbte7506/11/2025 Overall Financial Resource Strain (CARDIA)AnswerDate RecordedHow hard is it for you to pay for the very basics like food, housing, medical care, and heating? Somewhat hard06/11/2025PHQ-2AnswerDate RecordedPatient Health Questionnaire-2 Cadqt367Finprimary children's hospital [place] of Occupational Health - Occupational Stress QuestionnaireAnswerDate RecordedDo you feel stress - tense, restless, nervous, or anxious, or unable to sleep at night because yourmind is troubled all the time - these days?Only a qjsand6406/11/2025Exercise Vital SignAnswerDate Recorded On average, how many [...] needed for daily living?No06/11/2025Edinburgh Depression ScaleAnswerDate Recorded [place] Depression Scale Xdvql15110/10/2022The thought of harming myself has occurred to me.Never08/10/2023Housing Stability Vital SignAnswerDate RecordedIn the last 12 months, was there a time when you were not able to pay the mortgage or rent on time?No06/11/2025Number of Times Moved in the Last Year Not on file06/11/2025t any time in the past 12 months, were you homeless or living in a correction (including now)?No06/11/2025Estimated Date of MrgnusvnYdsytskaSxu00/30/2026ased on last menstrual period of 05/31/2025Sex and Gender InformationValueDate RecordedSex Assigned at BirthNot on fileLegal Sex Vodscd7212/21/2022 7:12 PM EDTGender MejkzaxrShiqau70/15/2023 7:12 PM EDTSexual OrientationNot on fileOccupationIndustryJob Start DateJob End DateCountry side Not on fileNot on fileNot on filedocumented as of this encounter Plan of Treatment DateTypeDepartmentCare Team (Latest Contact Info)Xxmycazzkay49/23/2025 10:30 AM EDTOffice Visit BRANDEN APONTE [address] [place] [address] Jona Henley MD [address] [place] [address] 07/31/2025 2:45 PM EDTAncillary Procedure BRANDEN APONTE [address] [place] [address] 08/18/2025 12:45 PM ESTInitial BRANDEN APONTE [address] [place] [address] Jona Henley MD [address] [place] [address] documented as of this encounter Goals GoalPatient Goal TypeAssociated ProblemsRecent ProgressPatient-Stated?Author Reminders Care PlanOB RemindersNoLaure Dumont, RNdocumented as of this encounter Visit Diagnoses Not on filedocumented in this encounter Additional Health Concerns Active ProblemsNoted DateDiagnosed DateOB Jbjkaayim77/10/2025 documented as of this encounter Care Teams Team MemberRelationshipSpecialtyStart DateEnd Date Pete Thapa DO [address] [place] [address] PCP - GeneralFamily Medicine02/14/23documented as of this encounter
--- OUTSIDE RECORDS SUMMARY | 2025-07-31 09:47 | XMS_ITS | Clinical Summary ---
Author Organization [facility] Address [facility] [place] [address] Care Team Providers Care Numerical Control Machine Machinist Name Role Phone CrtKerry Palencia RD Unavailable Jona Henley MD Unavailable [phone] Allergies Active AllergyReactionsCriticalityNoted DateCommentsDoxycyclineOther: See Gbhidoqs50/21/2022 dizziness Penicillin G XaerkfBhbv08/21/2022yproheptadineDiarrhea,Other: See CommentsHigh 08/02/2013 Passing out, turning white. Seasonal Grqffuyvk12/18/2010 Medications * This document contains information received from the source organization and may not represent a complete record from that organization. MedicationSigDispense QuantityRefillsLast FilledStart DateEnd DateStatus pimecrolimus (ELIDEL) 1 % cream Indications:Other eczemaAPPLY 2 TIMES DAILY TO FACIAL AREAS NEEDED FOR RASH/ITCHING 30 g ctive Additional Information Patient not taking.Reported on 11/21/2023 Sulfacetamide Sodium-Sulfur 10-5 % (w/w) lotn Indications:Acne vulgarisApply to all acne-prone areas twice daily 60 g ctive Additional Information Patient not taking.Reported on 11/21/2023 adapalene (DIFFERIN) 0.1 % gel Indications:Acne vulgarisApply to all acne-prone areas at bedtime. 45 g ctive Additional Information Patient not taking.Reported on 11/21/2023 methylphenidate HCl (CONCERTA ORAL) Take 18 mg by mouth once daily.Active clindamycin (CLEOCIN) 1 % external solution Indications:Acne vulgarisAPPLY TO AFFECTED AREAS ON FACE ONCE EVERYDAY 60 mL 5Active Active Problems ProblemNoted DateDiagnosed DateTinnitus, right ear2Conductive hearing loss of right ear with unrestricted hearing of left ear01/11/2017Conductive hearing loss in right ear11/17/2015Abdominal pain08/19/2015Generalized abdominal pain08/04/2015Hearing loss due to cerumen juyjdfbpu96/05/2015Retained myringotomy tube in left ear07/13/2015ttention deficit hyperactivity disorder (ADHD), combined type07/13/2015 Overview (07/31/2015): 2-3 years ago was seeing counselor. Impulsive behavior as a kid: would run away. Was on Concerta 2-3 yrs ago. Was losing weight on this. Did help a lot per parents with cooperation, grades, focus. Ftmxswr8308/09/2013 Overview (07/31/2015): Was on meds in past ? Name. Did seem to help. Rxed by psychiatrist. Resolved Problems ProblemNoted DateDiagnosed DateResolved DateConductive hearing loss in left ear Constipationbdominal pain07/22/2015 07/24/20151207Oirdgcaulch14Child victim of psychological bullying HeadacheImpacted ggyobrg7502/08/2011 08/09/2013Eustachian tube peqsdicldbz75Otitis media with tkditapn23 Encounters DateTypeDepartmentCare HwbbOelnaymnvtn80/03/2025 Patient Msg Referring Physician [address] [place] [address] Provider, [facility] Cxdohrwf70/26/2025Refill Dermatology [address] [place] [address] Mary Ann Ma MD Refill Requestfrom Last 3 Months Immunizations ImmunizationAdministration DatesNext DueHaemophilus influenzae b (HbOC) vaccine, 4-dose series (HIBTITER)04/21/2004,04/21/2003,02/17/2003,2002diphtheria tetanus pertussis (DTaP) vaccine, pediatric (INFANRIX)01/30/2008,11/08/2004, 04/21/2003,02/17/2003,2002hepatitis A (HepA) vaccine, 2-dose series, ped/adol (HAVRIX-PEDS, VAQTA-PEDS)12/15/2016hepatitis B (HepB) vaccine, 3-dose series, age 0 yr - 19 yr (ENGERIX B-PEDS, RECOMBIVAX HB-PEDS)04/21/2003, 2002,2002human papillomavirus (HPV9) vaccine, 9 valent (GARDASIL 9) 12/15/2016influenza (IIV3) vaccine, age 6 mo - 35 mo, trivalent (AFLURIA) 10/15/2003,09/12/2003influenza (IIV3) vaccine, age 6 mo - 35 mo, trivalent, PF (AFLURIA)08/31/2004influenza (IIV4) vaccine, age 6 mo - 64 yr, quadrivalent, PF (AFLURIA, FLUARIX, FLULAVAL, FLUZONE)07/08/2015influenza vaccine, unspecified wfzuqhzydhc19/22/2013,07/28/2011,08/24/2010,07/22/2009measles mumps rubella (MMR) vaccine (M-M-R II, PRIORIX)01/30/2008,04/21/2004meningococcal (MenACWY-D) vaccine, quadrivalent (MENACTRA)07/31/2015pneumococcal conjugate (PCV) vaccine, unspecified xmnozhqlhdt80/14/2004,09/09/2003,04/21/2003,2002poliovirus (IPV) vaccine, inactivated (IPOL)01/30/2008,09/09/2003,02/17/2003,2002 varicella (HUSSAIN) vaccine (VARIVAX)11/08/2004 Family History Medical HistoryRelationCommentsdegenerati disc disease [Other]Fatherlactose intolerant [Other]FatherKidney DiseaseMaternal Auntkidney stonesovarian cysts [Other]Maternal AuntGERD [Other]Motherlactose intolerance [Other]Motherovarian cysts [Other]MotherRelationStatusCommentsFatherMaternal AuntMother Social History Tobacco UseTypesPacks/DayYears UsedDateSmoking Tobacco: NeverSmokeless Tobacco: Never Tobacco Cessation:Counseling Given: Not Answered Comments:no one in household smokes Alcohol UseStandard Drinks/WeekCommentsNo0 (1 standard drink = 0.6 oz pure alcohol)PHQ-2AnswerDate RecordedPHQ-2 hmiwu468/15/2024Area Deprivation Index AnswerDate RecordedNational Score (1-100), lower number is lower risk82 08/16/2023State Score (1-10), lower number is lower lpyw4413Data from: https://www.neighborhoodatlas.medicine.[facility]/. Last address used for ekpjvowtemf[address]CommentsNoSex and Gender InformationValueDate RecordedSex Assigned at BirthNot on fileLegal SexFemale 09/09/2012 8:28 AM ESTGender IdentityNot on fileSexual OrientationNot on file Last Filed Vital Signs Vital SignReadingTime TakenCommentsBlood Weldeexm799/6702 11:32 AM EST Jkvpv129511/14/2022 11:32 AM UCGCenshzzyyxp84.3 ??C (97.3 ??F)03/03/2017 2:17 PM EDTRespiratory Tvov9249 3:59 PM ESTOxygen Xjbmnxjzhl209%11/14/2022 11:32 AM ESTInhaled Oxygen Concentration--Fmizpz84.8 kg (195 lb 12.8 oz)06/01/2023 9:06 AM GKQGbxpba691.6 cm (5' 6 )06/01/2023 9:06 AM EDTBody Mass Index31.6 06/01/2023 9:06 AM EDT Plan of Treatment Health MaintenanceDue DateLast DoneCommentsPeds To Adult Transition Initial Rkhicolbgu21/10/2015Peds To Adult Transition Annual Lpdjibnrpa52/10/2017 Meningococcal B Vaccine (1 of 2 - Standard)2018Chlamydia Screening (18-24) 2020epression Dlavvoyzn95/10/2021GC (Gonorrhea) Screening (18-24) 2020HIV Sxtetfjio61/10/2021Hepatitis C Shxitnpwf20/10/2021ervical Cancer Zhhshfhcj58/10/2024ovid-19 Vaccine (3 - 2024- season)506/10/2022, 12/22/2022Influenza Vaccine (#1)2024, 06/23/2023, 08/03/2022, Additional history existsDTaP,Tdap,Td Vaccine (7 - Td or Tdap)06/25/2025 06/25/2015, 01/30/2008, 11/08/2004, Additional history existsHepatitis B Vaccine Nmzglokzg43/14/2003, 2002, 2002HPV KzejlvhMckzmgebl57/05/2017, 12/15/2016 Medical Devices ImplantedTypeAreaManufacturerDevice IdentifierShelf Expiration DateModel / Serial / LotTube Vent 4.8mm 1.32mm Rchrd - [id number] Implant[facility]LDONCImplantBilateral: Ear - Tympanic MembraneGYRUS GRP ENT08/08/2019240072 / / [id number] [place] Vent 520-181 - [id number] Implanted:Qty: 2 on 02/17/2010 at [facility] TubesBilateral: Ear - Tympanic Jkshicea59/01/1282424-409 / / [id number] Insurance Care Teams Team MemberRelationshipSpecialtyStart DateEnd Date Crtalic-Kerry Coates RD [facility] [address] 04/04/23 Jona Henley MD [address] [place] [address] ReferringOb/Gyn06/11/25
--- OUTSIDE RECORDS SUMMARY | 2025-07-31 09:47 | XMS_ITS | Encounter Summary ---
Author Organization [facility] Address [address] [place] [address] Care Team Providers Care Manager Recruiting Name Role Phone Pete Thapa DO Primary Care Provider [phone] Encounter Details DateTypeDepartmentCare Team (Latest Contact Info)Qyugczbifji07/17/2025Patient Outreach [facility] [address] [place] [phone] Nirali Ferrari LPN [address] [place] [address] Social History Tobacco UseTypesPacks/DayYears UsedDateSmoking Tobacco: NeverSmokeless Tobacco: NeverAlcohol UseStandard Drinks/WeekCommentsNot Currently0 (1 standard drink = 0.6 oz pure alcohol)caffeine: abrflrgflexlU6188 Health LiteracyAnswerDate RecordedHow often do you need to have someone help you when you read instructions, pamphlets, or other written material from your doctor or pharmacy? Patient declines to zqwitwl4606/11/2025Humiliation, Afraid, Rape, and Kick questionnaireAnswerDate RecordedWithin the [...] times a week06/11/2025How often do you attend pentecostal or anabaptism services?1 to 4 times per year06/11/2025Do you belong to any clubs or organizations such as pentecostal groups, unions, fratagUin or athletic groups, or school groups?No06/11/2025How often do you attend meetings of the clubs or organizations you belong to?Never06/11/2025re you , , , , never , or living with a partner?Patient tggmkimb50/03/2025 AUDIT-CAnswerDate RecordedQ1: How often do you have a drink containing alcohol? Monthly or less06/11/2025Q2: How many drinks containing alcohol do you have on a typical day when you are drinking?Patient does not drink06/11/2025Q3: How often do you have six or more drinks on one occasion?Less than lhpueqs0606/11/2025 Overall Financial Resource Strain (CARDIA)AnswerDate RecordedHow hard is it for you to pay for the very basics like food, housing, medical care, and heating? Somewhat hard06/11/2025PHQ-2AnswerDate RecordedPatient Health Questionnaire-2 Agdwe463Final[facility] [place] of [facility]ational Health - Occupational Stress QuestionnaireAnswerDate RecordedDo you feel stress - tense, restless, nervous, or anxious, or unable to sleep at night because yourmind is troubled all the time - these days?Only a xzctca3706/11/2025Exercise Vital SignAnswerDate Recorded On average, how many [...] needed for daily living?No06/11/2025Edinburgh Depression ScaleAnswerDate Recorded [place] Depression Scale Tiflg57510/10/2022The thought of harming myself has occurred to me.Never08/10/2023Housing Stability Vital SignAnswerDate RecordedIn the last 12 months, was there a time when you were not able to pay the mortgage or rent on time?No06/11/2025Number of Times Moved in the Last Year Not on file06/11/2025t any time in the past 12 months, were you homeless or living in a residential (including now)?No06/11/2025Estimated Date of AehozflfMdnpzkopGbx46/30/2026ased on last menstrual period of 05/31/2025Sex and Gender InformationValueDate RecordedSex Assigned at BirthNot on fileLegal Sex Xokzdk9812/21/2022 7:12 PM EDTGender AeahxunwFapdwi89/15/2023 7:12 PM EDTSexual OrientationNot on fileOccupationIndustryJob Start DateJob End DateCountry side Not on fileNot on fileNot on filedocumented as of this encounter Functional Status * Over the past 2 weeks, how often have you been bothered by any of the following problems?QuestionAnswerDate of AssessmentAuthorLittle interest or pleasure in doing thingsNot at all07/25/2025 4:15 PM Nirali Bermeo LPN Feeling down, depressed, or hopelessNot at all07/25/2025 4:15 PM Nirali Bermeo LPNPatient Health Questionnaire-2 Trcft454 4:15 PM Nirali Bermeo LPN documented as of this encounter Progress Notes * Nirali Ferrari LPN - 07/25/2025 4:15 PM EDT Initial Outreach. Call to pt. Pt reports appetite and sleep are adequate. Bowels are regular. Pt denies any depression or difficulty coping at this time. Pt agrees to monthly outreach. Pt voices nausea and vomiting but has new script fro zofran she intends to try. Meds reviewed. Next oB OV 07/31/25. documented in this encounter Plan of Treatment DateTypeDepartmentCare Team (Latest Contact Info)Gnklkboisbp74/23/2025 10:30 AM EDTOffice Visit [facility] [place] [facility] [address] [place] [phone] Jona Henley MD [address] [place] [address] 07/31/2025 2:45 PM EDTAncillary Procedure [facility] [place] [facility] [address] [place] [address] 08/18/2025 12:45 PM ESTInitial [facility] [place] [facility] [address] [place] [address] Jona Henley MD [address] [place] [address] documented as of this encounter Goals GoalPatient Goal TypeAssociated ProblemsRecent ProgressPatient-Stated?Author Reminders Care PlanOB RemindersLaure Carter RNdocumented as of this encounter Visit Diagnoses Not on filedocumented in this encounter Additional Health Concerns Active ProblemsNoted DateDiagnosed DateOB Hlgpthena41/10/2025 documented as of this encounter Care Teams Team MemberRelationshipSpecialtyStart DateEnd Date Pete Thapa DO [address] [place] [address] [facility] Medicine02/14/23documented as of this encounter
--- OUTSIDE RECORDS SUMMARY | 2025-07-31 09:47 | XMS_ITS | Encounter Summary ---
Author Organization [facility] Address [address] [facility] [place] [place] [address] Care Team Providers Care Mangle Tender Name Role Phone Pete Thapa DO Primary Care Provider [phone] Encounter Details DateTypeDepartmentCare Team (Latest Contact Info)Ndjzcnfhmcv25/06/2025Orders Only [facility] [place] [facility] [address] [facility] [address] [place] [address] Jona Henley MD [address] [facility] [address] [place] [address] Nausea (Primary Dx); examination or test, unconfirmed Social History Tobacco UseTypesPacks/DayYears UsedDateSmoking Tobacco: NeverSmokeless Tobacco: NeverAlcohol UseStandard Drinks/WeekCommentsNot Currently0 (1 standard drink = 0.6 oz pure alcohol)caffeine: kcclJ3651 Health LiteracyAnswerDate RecordedHow often do you need to have someone help you when you read instructions, pamphlets, or other written material from your doctor or pharmacy?Patient declines to ejaxqgs7506/11/2025Humiliation, Afraid, Rape, and Kick questionnaire AnswerDate RecordedWithin [...] times a week06/11/2025How often do you attend pentecostalism or zoroastrianism services?1 to 4 times per year06/11/2025Do you belong to any clubs or organizations such as pentecostalism groups, unions, fraInvestCloud or athletic groups, or school groups?No06/11/2025How often do you attend meetings of the clubs or organizations you belong to?Never06/11/2025re you , , , , never , or living with a partner?Patient udzapodf59/03/2025 AUDIT-CAnswerDate RecordedQ1: How often do you have a drink containing alcohol? Monthly or less06/11/2025Q2: How many drinks containing alcohol do you have on a typical day when you are drinking?Patient does not drink06/11/2025Q3: How often do you have six or more drinks on one occasion?Less than wrfxeic7106/11/2025 Overall Financial Resource Strain (CARDIA)AnswerDate RecordedHow hard is it for you to pay for the very basics like food, housing, medical care, and heating? Somewhat hard06/11/2025PHQ-2AnswerDate RecordedPatient Health Questionnaire-2 Jlagk202Fincentral [facility] medical center [place] of Occupational Health - Occupational Stress QuestionnaireAnswerDate RecordedDo you feel stress - tense, restless, nervous, or anxious, or unable to sleep at night because yourmind is troubled all the time - these days?Only a yxwtqo1006/11/2025Exercise Vital SignAnswerDate Recorded On average, how many [...] needed for daily living?No06/11/2025Edinburgh Depression ScaleAnswerDate Recorded [place] Depression Scale Agrcj33310/10/2022The thought of harming myself has occurred to me.Never08/10/2023Housing Stability Vital SignAnswerDate RecordedIn the last 12 months, was there a time when you were not able to pay the mortgage or rent on time?No06/11/2025Number of Times Moved in the Last Year Not on file06/11/2025t any time in the past 12 months, were you homeless or living in a fpc (including now)?No06/11/2025CommentsNoSex and Gender InformationValueDate RecordedSex Assigned at BirthNot on fileLegal SexFemale 12/21/2022 7:12 PM EDTGender SgvxdqleIwcsrc64/15/2023 7:12 PM EDTSexual OrientationNot on fileOccupationIndustryJob Start DateJob End DateCountry side Not on fileNot on fileNot on filedocumented as of this encounter Progress Notes * Jona Henley MD - 07/14/2025 11:25 AM EDT UTI/Nausea documented in this encounter Plan of Treatment DateTypeDepartmentCare Team (Latest Contact Info)Nvqgjkssmer66/23/2025 10:30 AM EDTOffice Visit [facility] [place] [facility] [address] [place] [address] Jona Henley MD [address] [place] [address] 07/31/2025 2:45 PM EDTAncillary Procedure [facility] [place] [facility] [address] [place] [phone] 08/18/2025 12:45 PM ESTInitial [facility] [place] [facility] [address] [place] [phone] Jona Henley MD [address] [place] [address] NameTypePriorityAssociated DiagnosesOrder SchedulehCG, quantitativeLabRoutine examination or test, unconfirmed Expected: 07/17/2025 (Approximate), Expires: 07/17/2026documented as of this encounter Visit Diagnoses Diagnosis Nausea- Primary Nausea alone examination or test, unconfirmed documented in this encounter Care Teams Team MemberRelationshipSpecialtyStart DateEnd Date Pete Thapa DO [address] [place] [address] PCP - GeneralFamily Medicine02/14/23documented as of this encounter
--- OUTSIDE RECORDS SUMMARY | 2025-07-31 09:48 | XMS_ITS | Clinical Summary ---
Author Organization [facility] Address [address] [place] [address] Care Team Providers Care Fill Manager Name Role Phone Pete Thapa DO Primary Care Provider [phone] Allergies Active AllergyReactionsCriticalityNoted DqnuUwizbqezXkeypqgoijby21/09/2023 Other Reaction(s): Unknown Reaction RzzkykaxzxqpotDfulsrpwWqvf87/25/2013 Other Reaction(s): Other: See Comments Other reaction(s): Other: See Comments Passing out, turning white. Passing out, turning white. KggvliujxbgQbeygalbqVvu93/21/2022 Other Reaction(s): Dizzy/Vertigo, Other: See Comments Other reaction(s): Other: See Comments Other reaction(s): dizziness dizziness dizziness Other Reaction(s): Unknown Reaction, rash Levonorgestrel-Ethinyl Bcaxoi5412/24/2009 Other Reaction(s): Other (See Comments) Patient not sure GchvgxresGmzljeaqkbgjZkr16/09/2023Penicillin G RmmanbTypxQfz77/21/2022 Other reaction(s): rash Alsyowagjmw47/31/2024 Other Reaction(s): Unknown Reaction, rash Medications MedicationSigDispense QuantityRefillsLast FilledStart DateEnd DateStatus meclofenamate (Meclomen) 100 MG capsule Indications:Chiari malformation type I (HCC)One tablet tid on menses No hormones due to Chiari malformation 120 capsule 5Active Additional Information Patient not taking.Reported on 07/18/2025 clindamycin (Cleocin T) 1 % external solution Indications:Acne vulgarisApply topically in the morning and before bedtime. APPLY TO AFFECTED AREAS ON FACE ONCE A DAY. 30 mL 5Active Additional Information Patient not taking.Reported on 07/18/2025 methylphenidate ER (Concerta) 18 MG CR tablet Indications:Attention deficit hyperactivity disorder (ADHD), combined typeTake 1 tablet (18 mg) by mouth in the morning. Do not crush, chew, or split. 30 tablet 5Active Additional Information Patient not taking.Reported on 07/18/2025 Vit-Fe Fumarate-FA ( Vitamins) 28-0.8 MG tablet Indications: confirmed by positive blood test ([facility])Take 1 tablet by mouth Daily 30 tablet 110//173019/6Active ondansetron (Zofran) 4 MG tablet Indications:NauseaTake 1 tablet (4 mg) by mouth 2 (two) times a day as needed for nausea or vomiting 20 tablet 5Active clindamycin (Cleocin) 300 MG capsule Indications:Urinary tract infection without hematuria, site unspecifiedTake 1 capsule (300 mg) by mouth in the morning and 1 capsule (300 mg) at noon and 1 capsule (300 mg) in the evening and 1 capsule (300 mg) before bedtime. Do all this for 10 days. 40 capsule 5Active vancomycin (Vancocin) 250 MG capsule Indications:Urinary tract infection without hematuria, site unspecifiedTake 1 capsule (250 mg) by mouth in the morning and 1 capsule (250 mg) at noon and 1 capsule (250 mg) in the evening and 1 capsule (250 mg) before bedtime. Do all this for 10 days. 40 capsule 5Active cephalexin (Keflex) 500 MG capsule Indications:Vaginal burning,Vaginal irritation,Vaginal itchingTake 1 capsule (500 mg) by mouth in the morning and 1 capsule (500 mg) at noon and 1 capsule (500 mg) in the evening and 1 capsule (500 mg) before bedtime. Do all this for 10 days. 40 capsule Expired Active Problems ProblemNoted DateDiagnosed DateMiscarriage ([facility])02/26/2025Depression 06/29/20237183Fucteuwmxl22/21/2023Menorrhagia with irregular cycle06/29/2023 Fwscfvyrif49/29/2023bnormal thyroid function test12/14/2022cne vulgaris 12/14/2022 Assessment & Plan (06/13/2025 10:58 AM EDT): Problem is stable, will continue with current treatment plan. Call or return to clinic if any changes occur Orders: clindamycin (Cleocin T) 1 % external solution; Apply topically in the morning and before bedtime. APPLY TO AFFECTED AREAS ON FACE ONCE A DAY. Zgpqxbzkztloskqg19/08/2023Obesity (BMI 30.0-34.9)12/14/2022Weight gain12/14/2022 Gross idrkuohqr03/15/2023 Overview (06/29/2023): Added automatically from request for surgery [id number] Right lower quadrant abdominal pain11/23/2022 Overview (06/29/2023): Added automatically from request for surgery [id number] Tinnitus, right ear09/15/2022Nausea and jtkorrdy50/07/2022erumen debris on tympanic membrane of right ear02/08/2021hronic otitis media11/28/2019 Dysfunction of both eustachian tubes09/27/2017Conductive hearing loss of right ear with unrestricted hearing of left ear11/17/2015Generalized abdominal pain 08/04/2015ttention deficit hyperactivity disorder (ADHD), combined type 07/13/2015 Overview (06/29/2023): [...] or split. Hearing loss due to cerumen yqvtlqobx74/05/2015Retained myringotomy tube in left ear07/13/20159981Guqmejl84/01/2013 Overview (06/29/2023): Was on meds in past ? Name. Did seem to help. Rxed by psychiatrist. Estimated Date of UsahdwbsLedkdwwvXpr52/30/2026ased on last menstrual period of 05/31/2025 Resolved Problems ProblemNoted DateDiagnosed DateResolved DateChiari lruritgq99 Overview (06/29/2023): Added automatically from request for surgery [id number] Encounters DateTypeDepartmentCare IukpCwzwrldagqb33/22/2025Orders Only [facility] [place] [facility] [address] [place] [phone] Jona Henley MD 07/30/2025Orders Only [facility] [place] [facility] [address] [place] [address] Jona Henley MD Urinary tract infection without hematuria, site unspecified (Primary Dx) 07/25/2025Patient Outreach [facility] [address] [place] [phone] Nirali Ferrari LPN 07/21/2025Telephone [facility] [place] [facility] [address] [place] [phone] Gm Gomez LPN ER Follow-up07/18/2025 10:30 AM EDTInitial [facility] [place] [facility] [address] [place] [phone] GA: 6w6d1Results Follow-Up [facility] [place] [facility] [address] [place] [address] Jona Henley MD Urine culture, Urine Culture Clean Catch Swlhle1907/18/20254667Ypqvzx35/09/2025 Clinisync Result Encounter [facility] External Department Unsolicited Jona Henley MD 07/15/2025Orders Only [facility] External Department Unsolicited Jona Henley MD 07/14/2025Orders Only [facility] [place] [facility] [address] [place] [phone] Jona Henley MD Nausea (Primary Dx); examination or test, cmdtkdtajbj91/06/2025Telephone [facility] [place] [facility] [address] [place] [phone] Jessy Barcenas LPN 07/05/2025linisync Result Encounter [facility] External Department Unsolicited Provider, Generic External Data 07/03/2025linisync Result Encounter [facility] External Department Unsolicited Provider, Generic External Data 06/16/2025Results Follow-Up [facility] [place] [facility] [address] [place] [address] Jona Henley MD METHYLENETETRAHYDROFOLATE REDUCTASE (MTHFR) BEOUJXUNLPAK53/05/2025 10:40 AM EDT Office Visit [facility] [address] [place] [phone] Pete Thapa DO Major depressive disorder, single episode, mild ; Acne vulgaris; Attention deficit hyperactivity disorder (ADHD), combined type06/13/2025amboo flowsheet [facility] [address] [place] [address] Pete Thapa DO 06/13/20255407Lvrjpt69/03/2025Orders Only [facility] [place] [facility] [address] [place] [phone] Jona Henley MD Urinary tract infection without hematuria, site unspecified (Primary Dx) 06/11/20256804Isbdne20/03/2025Results Follow-Up [facility] [address] [place] [address] Jona Henley MD Iron and TIBC, CBC and differential, Ferritin, Additional followed-up results: 4 06/10/2025 8:45 AM EDTOffice Visit [facility] [place] [facility] [address] [place] [address] Jona Henlye MD Chiari malformation type I (HCC) (Primary Dx); Amenorrhea; Menorrhagia with irregular cycle; Excessive bleeding in premenopausal period; History of miscarriage; Vaginal burning; Vaginal itching; Vaginal /02/2025Orders Only [facility] External Department Unsolicited Jona Henley MD 06/10/20254388Qyxwyl36/29/2025 8:45 AM EDTAncillary Procedure [facility] [place] [facility] [address] [place] [address] Menorrhagia with regular cycle; Ilbrffijmihw10/29/3605Mcwmdq69/30/2025Refill [facility] [place] [facility] [address] [place] [address] Pete Thapa, Attention deficit hyperactivity disorder (ADHD), combined typefrom Last 3 Months Immunizations ImmunizationAdministration DatesNext QshXCgL5101/30/2008,11/08/2004,04/21/2003, 02/17/2003,2002HPV 9-Ogqkzj4807/13/2017,12/15/2016Hep A, Adult12/15/2016Hep A, ped/adol, 2 dose07/13/2017,12/15/2016Hep B, Adolescent or Hkvjfiwqh23/14/2003 ,2002,2002HiB, zacxnydfulr02/14/2004,04/21/2003,02/17/2003, 2002Hib (HbOC)04/21/2004,04/21/2003,02/17/2003,2002IPV01/30/2008, 09/09/2003,02/17/2003,2002Influenza, Injectable, MDCK, preservative free 06/13/2024Influenza, Ukmvsnhbyhx32/22/2013,07/28/2011,08/24/2010,07/22/2009 Influenza, injectable, MDCK, preservative free, omlzgrowwqde21/15/2023, 08/03/2022,07/10/2019Influenza, injectable, MDCK, pbizxyqxpjig14/24/2020 Influenza, injectable, quadrivalent, preservative free06/04/2021,07/06/2018, 07/13/2017,07/08/2015,07/30/2013Influenza, live, bghjsemyit15/14/2009Influenza, seasonal, dpfebwvgcn31/30/2015,07/28/2011,08/31/2004,10/15/2003,09/12/2003 Influenza, seasonal, injectable, preservative free08/24/2010,08/31/2004MMR 01/30/2008,04/21/2004Meningococcal AFK9Y83Meningococcal HAC6A1007/31/2015 Pneumococcal Conjugate PCV 7004/21/2004,09/09/2003,04/21/2003,2002 Pneumococcal Conjugate, Dlcreeyjhwr35/14/2004,09/09/2003,04/21/2003,2002 SARS-COV-2 (COVID-19) vaccine, mRNA, spike protein, LNP, bivalent, preservative free, 30 mcg/0.3 mLdose, merly-sucrose jkpsnmkufgq36/01/4104Gcut12/17/2015 Jjiruqaxc04/31/2005 Family History Medical HistoryRelationNameCommentsNo Known ProblemsFatherNo Known Problems Maternal GrandfatherNo Known ProblemsMaternal GrandmotherAsthmaMotherLeukemia Paternal GrandfatherBreast cancerPaternal GrandmotherLung cancerPaternal GrandmotherThyroid diseasePaternal GrandmotherRelationNameStatusCommentsFather Maternal GrandfatherMaternal GrandmotherMotherPaternal GrandfatherPaternal Grandmother Social History Tobacco UseTypesPacks/DayYears UsedDateSmoking Tobacco: NeverSmokeless Tobacco: Never Tobacco Cessation:Counseling Given: Yes Alcohol UseStandard Drinks/WeekCommentsNot Currently0 (1 standard drink = 0.6 oz pure alcohol)caffeine: hwibvbtjtvcuC1452 Health LiteracyAnswerDate RecordedHow often do you need to have someone help you when you read instructions, pamphlets, or other written material from your doctor or pharmacy?Patient declines to wcbwabn2206/11/2025Humiliation, Afraid, Rape, and Kick questionnaire AnswerDate RecordedWithin [...] times a week06/11/2025How often do you attend evangelical or buddhism services?1 to 4 times per year06/11/2025Do you belong to any clubs or organizations such as evangelical groups, unions, fraternal or athletic groups, or school groups?No06/11/2025How often do you attend meetings of the clubs or organizations you belong to?Never06/11/2025re you , , , , never , or living with a partner?Patient xnrdpdde65/03/2025 AUDIT-CAnswerDate RecordedQ1: How often do you have a drink containing alcohol? Monthly or less06/11/2025Q2: How many drinks containing alcohol do you have on a typical day when you are drinking?Patient does not drink06/11/2025Q3: How often do you have six or more drinks on one occasion?Less than nqivymv3806/11/2025 Overall Financial Resource Strain (CARDIA)AnswerDate RecordedHow hard is it for you to pay for the very basics like food, housing, medical care, and heating? Somewhat hard06/11/2025PHQ-2AnswerDate RecordedPatient Health Questionnaire-2 Gnkde882[facility] [place] [facility] - Occupational Stress QuestionnaireAnswerDate RecordedDo you feel stress - tense, restless, nervous, or anxious, or unable to sleep at night because yourmind is troubled all the time - these days?Only a kenzkq3806/11/2025Exercise Vital SignAnswerDate Recorded On average, how many [...] needed for daily living?No06/11/2025Edinburgh Depression ScaleAnswerDate Recorded [place] Depression Scale Eljli298The thought of harming myself has occurred to me.Never08/10/2023Housing Stability Vital SignAnswerDate RecordedIn the last 12 months, was there a time when you were not able to pay the mortgage or rent on time?No06/11/2025Number of Times Moved in the Last Year Not on file06/11/2025t any time in the past 12 months, were you homeless or living in a care home (including now)?No06/11/2025Estimated Date of LrdezfpkQwefbdmuOof11/30/2026Based on last menstrual period of 8/23/2025Sex and Gender InformationValueDate RecordedSex Assigned at BirthNot on fileLegal Sex Okbsdo1312/21/2022 7:12 PM EDTGender KymundubNtgyyh41/15/2023 7:12 PM EDTSexual OrientationNot on fileOccupationIndustryJob Start DateJob End DateCountry side Not on fileNot on fileNot on file Last Filed Vital Signs Vital SignReadingTime TakenCommentsBlood Ykbaqtkq863/62006/13/2025 10:39 AM EDT Ezbqt7163/05/2025 10:39 AM YVDScyjkzyaciv07.6 ??C (97.8 ??F)06/13/2025 10:39 AM EDTRespiratory Rate--Oxygen Tazdbuaqey68%06/13/2025 10:39 AM EDTInhaled Oxygen Concentration--Tbqdxr79.7 kg (169 lb)06/13/2025 10:39 AM YZPPbtxyd131.7 cm (5' 8 )06/13/2025 10:39 AM EDTBody Mass Index25.7006/13/2025 10:39 AM EDT Plan of Treatment DateTypeDepartmentCare Team (Latest Contact Info)Zxssbaytesf32/23/2025 10:30 AM EDTOffice Visit [facility] [place] [facility] [address] [place] [address] Jona Henely MD [address] [place] [address] 07/31/2025 2:45 PM EDTAncillary Procedure [facility] [place] [facility] [address] [place] [address] 08/18/2025 12:45 PM ESTInitial [facility] [place] [facility] [address] [place] [address] Jona Henley MD [address] [place] [address] Health MaintenanceDue DateLast DoneCommentsInfluenza GkrvyvbZpyisampp97/27/2025, 06/13/2024, 06/23/2023, Additional history exists Goals GoalPatient Goal TypeAssociated ProblemsRecent ProgressPatient-Stated?Author Reminders Care PlanOB RemindersLaure Carter RN Procedures Procedure NamePriorityDate/TimeAssociated DiagnosisCommentsTBH PREG QUANT HCG Kukboew2307/17/2025 4:30 PM EDT URINE CULTURE CLEAN CATCH DRBVJLPniaarc44/07/2025 12:00 AM EDT CULTURE, URINE, IGBHGXTZopnhub50/07/2025 12:00 AM EDT TBH PREG QUANT HBOXspxxyh16/27/2025 10:14 AM EDT TBH PREG QUANT BZPQpkmipp30/25/2025 9:51 AM EDT METHYLENETETRAHYDROFOLATE REDUCTASE (MTHFR) OJVWPGHSIDIUCowcyya56/02/2025 10:17 AM EDT PEXCODTRGbfltkk33/02/2025 10:16 AM EDT Amenorrhea Menorrhagia with irregular cycle Excessive bleeding in premenopausal period CBC (INCLUDES DIFF/PLT)Flwwzdt6106/10/2025 10:16 AM EDT Amenorrhea Menorrhagia with irregular cycle Excessive bleeding in premenopausal period IRON AND TOTAL IRON BINDING XQONKGYBLjtvfzs66/02/2025 10:16 AM EDT Amenorrhea Menorrhagia with irregular cycle Excessive bleeding in premenopausal period HCG, TOTAL, NMXlhvsxb32/02/2025 10:14 AM EDT Amenorrhea LUPUS BOQQJVEWCCGHSYjonhbq42/02/2025 10:14 AM EDT History of miscarriage URINE CULTURE CLEAN CATCH RMMKHDGjkhdjd90/02/2025 12:00 AM EDT CULTURE, URINE, ZTXBROOAglauqu80/02/2025 12:00 AM EDT Vaginal burning Vaginal itching Vaginal irritation US PELVIS GGOTRYHBRRDGNagrdhy51/29/2025 9:06 AM EDT Menorrhagia with regular cycle Dysmenorrhea from Last 3 Months Results * TBH PREG QUANT HCG (07/17/2025 4:30 PM EDT) Only the most recent of3 resultswithin the time period is included. ComponentValueRef RangeTest MethodAnalysis TimePerformed AtPathologist Signature HCG JPACZGOSUGML71,404mIU/mLTBHComment: 5-50 ? 0.2-1 WEEK 50-500 ? 1-2 [...] Data Provider CLINISYNCFinal ResultPerforming OrganizationAddressCity/State/ZIP CodePhone Number [facility] * (ABNORMAL) Urine Culture Clean Catch Reflex (07/15/2025 12:00 AM EDT) Only the most recent of2 resultswithin the time period is included. ComponentValueRef RangeTest MethodAnalysis TimePerformed AtPathologist Signature Ur Cult 1Enterococcus faecalis(A)[facility]ABCORPComment: Enterococci susceptible to penicillin are predictably susceptible to ampicillin, amoxicillin, ampicillin-sulbactam, amoxicillin-clavulanate, and piperacillin-tazobactam for yzb-alrz-ahreiplel producing enterococci. (CLSI 2018) For Enterococcus species, aminoglycosides (except for high-level resistance screening), cephalosporins, clindamycin, and trimethoprim-sulfamethoxazole are not effective clinically. (CLSI, Q323-N77, 2016) Note: this isolate is vancomycin-susceptible. This [...] / LateralityCollection Method / Volume Collection TimeReceived Time Narrative [facility] - 07/18/2025 5:07 PM EDT Performed at: 01 - [address], [place], [place] ??[id number] Night Auditor: Roland Martinez PhD, Phone: ??[phone] Authorizing ProviderResult TypeResult StatusPenlaura Henley MDLAB URINE ORDERABLESFinal ResultPerforming OrganizationAddressCity/State/ZIP CodePhone Number [facility] * (ABNORMAL) Urine culture (07/15/2025 12:00 AM EDT) Only the most recent of2 resultswithin the time period is included. ComponentValueRef RangeTest MethodAnalysis TimePerformed AtPathologist Signature Urine Cult Rt StatusFinal report(A)[facility]PSpecimen (Source)Anatomical Location / LateralityCollection Method / VolumeCollection TimeReceived Time07/15/2025 07/15/2025omment:URINE Narrative [facility] - 07/18/2025 5:07 PM EDT Performed at: 01 - [facility] ??[id number] Night Auditor: Roland Martinez PhD, Phone: ??[phone] Authorizing ProviderResult TypeResult StatusJona RAYA MICROBIOLOGY - GENERAL ORDERABLESFinal ResultPerforming OrganizationAddressCity/State/ZIP Code Phone Number [facility] * METHYLENETETRAHYDROFOLATE REDUCTASE (MTHFR) THERMOLABILS (06/10/2025 10:17 AM EDT)ComponentValueRef RangeTest MethodAnalysis TimePerformed AtPathologist SignatureMTHFR, DNA ANALYSISCommentLABCORPComment: Result: c.665C>T (p. Wue210Yxo), legacy name: C677T - Not Detected c.1286A>C (p. Sxk516Soo), legacy name: [id number] - Not Detected Interpretation: This result is [...] that can decrease enzyme activity; c.665C>T (p. Bnx160Fdk), legacy name C677T, and c.1286A>C (p. Yhr503Tyk), legacy name [id number]. These variants do not independently increase risk [...] to limited evidence of clinical utility (PMID: 47596932). Comments: Genetic Coordinators are available for health care providers to discuss results at [phone]). Test Details: Variants Analyzed: c.665C>T (p. Hop026Ofg), legacy name: C677T and c.1286A>C (p. Wfd796Xjn), legacy name: [id number] Methods/Limitations: DNA analysis of the MTHFR gene [...] developed and its performance characteristics determined by [facility]. It has not been cleared or approved by the Food and Drug Administration. References: Mila SE, Homer CJ, Kelsey HUFFMAN. ACMG Practice Guideline: lack of evidence for MTHFR polymorphism testing. Jennyfer Med. 2012;15(2):153-6. doi: 10.1038/gim.2012.165. Epub 2012Oct 11. PMID: 29516921. [place] [employer]' Committee on Practice Bulletins-Obstetrics. ACOG Practice Bulletin No. 197: Inherited Thrombophilias in . Obstet Gynecol. 2018 Apr;132(1):e18-e34. doi: 10.1097/AOG.3846423033029218. Erratum in: Obstet Gynecol. 2018 Jul;132(4):1069. PMID: 24031583. REVIEWED BY:CommentLABCORPComment: Technical Component performed at [facility] RT Professional Component performed by: Rohit Caballero, PhD, [facility] [id number], [facility], [address] [facility] [address] Specimen (Source)Anatomical Location / LateralityCollection Method / Volume Collection TimeReceived Time06/10/2025 10:17 AM EDT06/10/2025 Narrative [facility] - 06/16/2025 10:07 AM EDT Performed at: - [facility] [address] [place], [place] ??[id number] Night Auditor: Madyson Gillette [facility], Phone: ??[phone] Authorizing ProviderResult TypeResult StatusJona RAYA BLOOD ORDERABLESFinal ResultPerforming OrganizationAddressty/State/ZIP CodePhone Number [facility] * Iron and TIBC (06/10/2025 10:16 AM EDT)ComponentValueRef RangeTest Method Analysis TimePerformed AtPathologist SignatureIron Bind.Cap.(TIBC)074781 - 450 ug/wZVHMTFTYUJNM222279 - 425 ug/gYQSPRYVDQewf89321 - 159 ug/dLLABCORPIron Toaqadkkzv1941 - 55 %[facility]PSpecimen (Source)Anatomical Location / Laterality Collection Method / VolumeCollection TimeReceived TimeBloodVenous blood specimen / Vxatmkz0706/10/2025 10:16 AM EDT06/10/2025 Narrative [facility] - 06/11/2025 6:07 AM EDT Performed at: - [address] ??[id number] Night Auditor: Roland Martinez PhD, Phone: ??[phone] Authorizing ProviderResult TypeResult StatusJona RAYA BLOOD ORDERABLESFinal ResultPerforming OrganizationAddressty/State/ZIP CodePhone Number [facility] * CBC and differential (06/10/2025 10:16 AM EDT)ComponentValueRef RangeTest MethodAnalysis TimePerformed AtPathologist SignatureWBC4.73.4 - 10.8 x10E3/uL LABCORPRBC4.693.77 - 5.28 x10E6/lQHFSVNLXQsk43.611.1 - 15.9 g/iOCDVIOPKDgx51.6 34.0 - 46.6 %UAIBPRLMMZ9414 - 97 vLTIXOUAUNRZ32.126.6 - 33.0 pmSVGDEEJVHFT84.5 31.5 - 35.7 g/wPDOODHYNSIZ23.211.7 - 15.4 %CDRRSLVLprdyehlx731573 - 450 x10E3/lNWBHOBEVUgbyymcfehc06Ihj Estab. %ELJAYCJGacvsh77Api Estab. %[facility] Fxvvpqoij4Azb Estab. %EWMJHCIYor5Cdu Estab. %RHDDUWRQejdp3Wwd Estab. %[facility] Neutrophils Abs3.11.4 - 7.0 x10E3/uLLABCORPLymphs Abs1.30.7 - 3.1 x10E3/uL [facility]ABC[facility]PMonocytesAbs0.30.1 - 0.9 x10E3/uLLABCORPEos Abs0.00.0 - 0.4 x10E3/uL [facility]PBaso Abs0.00.0 - 0.2 x10E3/uLLABCORPImmature Bagvgbjmkdcj4Nnx Estab. % LABCORPImmature Grans Abs0.00.0 - 0.1 x10E3/uLLABCORPSpecimen (Source) Anatomical Location / LateralityCollection Method / VolumeCollection Time Received TimeBloodVenous blood specimen / Rxhnnaq5906/10/2025 10:16 AM EDT 06/10/2025 Narrative [facility] - 06/11/2025 6:07 AM EDT Performed at: [place] [address] [address] [facility], [address], [place] ??[id number] Night Auditor: Shaw Raygoza MD, Phone: ??[phone] Authorizing ProviderResult TypeResult StatusJona Henley MDLAB BLOOD ORDERABLESFinal ResultPerforming OrganizationAddressCity/State/[facility] CodePhone Number [facility] * Ferritin (06/10/2025 10:16 AM EDT)ComponentValueRef RangeTest MethodAnalysis TimePerformed AtPathologist UllkhfyqvNjbsnzyp5268 - 150 ng/mLLABCORPSpecimen (Source)Anatomical Location / LateralityCollection Method / VolumeCollection TimeReceived TimeBloodVenous blood specimen / Bsatwyu6106/10/2025 10:16 AM EDT 06/10/2025 Narrative [facility] - 06/11/2025 6:07 AM EDT Performed at: [address] ??[id number] Night Auditor: Roland Martinez PhD, Phone: ??[phone] Authorizing ProviderResult TypeResult Dina Henley MDMEDICINE [facility] BLOOD ORDERABLESFinal ResultPerforming OrganizationAddConemaugh Miners Medical Centerty/State/ZIP CodePhone Number [facility] * Lupus anticoagulant (06/10/2025 10:14 AM EDT)ComponentValueRef RangeTest MethodAnalysis TimePerformed AtPathologist SignaturePTT-LA PLFVAD58.00.0 - 43.5 secLABCORPDRVVT OFKXDI48.00.0 - 47.0 secLABCORPLUPUS ANTICOAGULANT Comment:[facility]ABCORPComment:No lupus anticoagulant was detected.Specimen (Source) Anatomical Location / LateralityCollection Method / VolumeCollection Time Received TimeBloodVenous blood specimen / Tgbokql3106/10/2025 10:14 AM EDT 06/10/2025 Narrative [facility] - 06/11/2025 3:07 PM EDT Performed at: 01 - [address] ??[id number] Night Auditor: Arnold Garcia MD, Phone: ??[phone] Authorizing ProviderResult TypeResult Dina RAYA BLOOD ORDERABLESFinal ResultPerforming OrganizationAddressty/[facility]/ZIP CodePhone Number [facility] * hCG, quantitative (06/10/2025 10:14 AM EDT)ComponentValueRef RangeTest Method Analysis TimePerformed AtPathologist SignaturehCG Beta Subunit Qn<1mIU/mL LABCORPComment: ? Female (Non-) ?0 - ? 5 ?(Postmenopausal) ??0 - ? 8 ? Female () ? Weeks of Gestation ? 3 ?6 - ?71 ? 4 ? 10 - ?? 750 ? 5 ?217 - ??7138 ? 6 ?158 - 03122 ? 7 ? 3697 -803706 ? 8 ?57109 -734413 ? 9 ?27450 -579948 ?10 ?59520 -520324 ?12 ?19561 -312459 ?14 ?51058 - 91112 ?15 ?50027 - 46690 ?16 ? 4099 - 53338 ?17 ? 5110 - 17179 ?18 ? 8099 - [address]41 [facility] ECLIA methodology Specimen (Source)Anatomical Location / LateralityCollection Method / Volume Collection TimeReceived TimeBloodVenous blood specimen / Ywilqis5406/10/2025 10:14 AM EDT06/10/2025 Narrative [facility] - 06/11/2025 3:07 PM EDT Performed at: [address], [address], [place], [place] ??[id number] Night Auditor: Shaw Raygoza MD, Phone: ??[phone] Authorizing ProviderResult TypeResult StatusJona Henley MDLAB BLOOD ORDERABLESFinal ResultPerforming OrganizationAddressCity/State/ZIP CodePhone Number [facility] * pelvis transvaginal (06/06/2025 9:06 AM EDT)Anatomical RegionLaterality ModalityPelvisUltrasoundStudy GAStudy DateStudy EDDWorking CHERYL (Source) 06/06/2025Specimen (Source)Anatomical Location / LateralityCollection Method / VolumeCollection TimeReceived Time Narrative 06/16/2025 9:51 AM EDT Images from the original result were not included. ?? Obstetrics & Gynecology ? [address] ? [address] ? [address] ?[address], [address] ? [place] [address] ?[place] [address] ? - - - - - - - [...] Uterus: 9.5 x 6.1 x 3.7 cm ??Volume: 111.6 cm?? Endometrial thickness: 4.1 mm Right ovary: 4.0 x 2.3 x 1.5 cm ??Volume: 7.2 cm?? Left ovary: 4.6 x 1.8 x 1.9 cm Volume: 8.5 cm?? - - - - - - - [...] - - Ordering/Reading Provider: Jona Henley M.D. ??Leather Stamper: LETI Authorizing ProviderResult TypeResult StatusJona Henley [facility] Final Result from Last 3 Months Additional Health Concerns Active ProblemsNoted DateDiagnosed DateOB Vnbtrwhln41/10/2025 Insurance Care Teams Team MemberRelationshipSpecialtyStart DateEnd Date Pete Thapa DO [address] [facility] [address] [place] [address] PCP - GeneralFaialy Medicine02/14/23
--- OUTSIDE RECORDS SUMMARY | 2025-07-31 09:53 | XMS_ITS | CCD ---
Author Organization [facility] Care Team Providers Care Sales Management Intern Name Role Phone SREEKANTH JOHNSON Unavailable Unavailable SELF, REFERRED Unavailable Unavailable SELF, REFERRED Unavailable Unavailable LENA REDDY Unavailable Unavailable Margarita Chiu Attending Physician Unavailable Unavailable Primary Care Provider UnavailZully Andujar Unavailable Unavailable Primary Care Provider Unavailko ledesma Unavailable Primary Care Provider UnavailDIANNA Redmond Referring Unavailable DIANNA VILLA Attending Unavailable Wesly KEEN Attending Unavailable Wesly KEEN Attending Unavailable Katie THAPA Primary Care Unavailable JOCELYNE BLACKMAN Referring Unavailable JOCELYNE BLACKMAN Attending Unavailable Katie THAPA Primary Care [...] DO Katie Thapa Primary Care Provider MD Gualberto Vnan Attending Provider DO Katie Thapa Primary Care Provider MD Gualberto Vann Attending Provider Salas Patricia Unavailable DO Katie Thapa Primary Care Provider MD Gualberto Vann Attending Provider DO Pérez Barcenas M Attending Provider Pérez Barcenas Unavailable DO Katie Thapa Primary Care Provider [phone] MD Yung Nichols Jr Emergency Provider Unavailable Primary Care Provider Unavailko e Pete Thapa DO Primary Care Provider ARLET DELGADO Attending Unavailable ARLET DELGADO Attending Unavailable SELF Referring Unavailable ARLET DELGADO Attending Unavailable ANISH LEVIN Attending Unavailable Crtalic-Jaxon COONEY, Kerry Unavailable Alanis Sky DO, George R Primary Care Provider CADEN THOMAS Attending Unavailable PETE THAPA JR Primary Care Unavailable VU, OSBALDO CATIE Attending Unavailable PETE THAPA JR Referring Unavailable PETE THAPA JR Primary Care Unavailable VU, OSBALDO-CATIE Attending Unavailable PETE THAPA JR Referring Unavailable PETE THAPA JR Primary Care Unavailable SADIA RAI Referring Unavailable PETE THAPA JR Primary Care Unavailable EMILIA CONKLIN Attending Unavailable PETE THAPA JR Primary Care Unavailable MICH VERDE Admitting Unavailable MICH VERDE Attending Unavailable PETE THAPA JR Primary Care Unavailable MICH VERDE Referring Unavailable PETE THAPA JR Primary Care Unavailable PETE THAPA JR Referring Unavailable PETE THAPA JR Primary Care Unavailable VU, OSBALDO-CATIE Admitting Unavailable VU, OSBALDO-CATIE Attending Unavailable PETE THAPA JR Primary Care Unavailable Pete Thapa DO Primary Care Provider Alanis Sky DO, George R Primary Care Provider U navailable Crtalic-Kerry Coates RD Unavailable [phone] Ktaie Thapa DO Primary Care Provider [phone] Yaritza Bauer APRN Emergency Provider PETE THAPA Primary Care Unavailable MILTON GARCIA Attending Unavailable PETE THAPA Primary Care Unavailable AKIKO ACOSTA Attending Unavailable PETE THAPA Primary Care Unavailable ROHIT ROB Attending Unavailable GUALBERTO VANN Referring Unavailable PETE THAPA Primary Care Unavailable MICH VERDE Attending Unavailable ALANIS ROGER, PETE R Referring Unavailable KAMARENAN , PETE R Primary Care Unavailable LUIS ENRIQUE JENNINGS Attending Unavailable ALANIS ROGER, PETE R Referring Unavailable KAMARENAN JR, PETE R Primary Care Unavailable MICH VERDE Attending Unavailable ALANIS ROGER, PETE R Referring Unavailable KAMARENAN JR, PETE R Primary Care Unavailable SADIA RAI Attending Unavailable ALANIS ROGER, PETE R Referring Unavailable ALANIS ROGER, PETE R Primary Care Unavailable MICH VERDE Attending Unavailable ALANIS ROGER, PETE R Referring Unavailable KAMARENAN JR, PETE R Primary Care Unavailable SADIA RAI Attending Unavailable ALANIS ROGER, PETE R Referring Unavailable ALANIS ROGER, PETE R Primary Care Unavailable ALANIS ROGER, PETE R Referring Unavailable ALANIS ROGER, PETE R Primary Care Unavailable SAMANTHAAN , PETE R Primary Care Unavailable FERNANDA CHRISTY Attending Unavailable ALANIS ROGER, PETE R Primary Care Unavailable DANIELE EDMOND Admitting Unavailable NOLA SESAY Attending Unavailable Alanis Sky DO, George R Primary Care Provider Chris White MD Attending Provider [phone] Yung Nichols Jr Admitting Unavailable Yung Nichols Jr Attending Unavailable Katie Thapa Primary Care Unavailable Yaritza Bauer Admitting Unavailable Yaritza Bauer Attending Unavailable Katie Thapa Primary Care Unavailable Katie Thapa Primary Care Unavailable Chris White Admitting Unavailable Chris White Attending Unavailable GUALBERTO VANN Attending Unavailable GUALBERTO VANN Attending Unavailable PETE THAPA Attending Unavailable PETE THAPA Attending Unavailable GUALBERTO VANN Attending Unavailable Allergies Allergy ClassificationReported Allergen(s)Allergy TypeDate of OnsetReaction(s) Facility (1 source)lactoseDrug Wyfaeko62-79-4717[facility] (20 sources)Cyproheptadine; Translations: [CYPROHEPTADINE]Drug Yhyusou94-78-5470 Diarrhea, Other: See Comments, Other (See Comments)[facility] (20 sources)Seasonal allergy; Translations: [SEASONAL ALLERGIES]Propensity to adverse llkocjpmj97-80-7437[facility] (20 sources)Doxycycline; Translations: [DOXYCYCLINE]Drug Xrhdjsw86-80-6744Hxrqo: See Comments, rash, Dizziness, Dizziness or Vertigo, Other (See Comments) [facility] Work Phone: (20 sources)Penicillin G; Translations: [PENICILLIN G SODIUM]Drug Allergy 64-46-1686[facility] Work Phone: (20 sources)Penicillins; Translations: [Penicillins]Allergy to substance 25-05-5353Whgclam Reaction, Unknown Reaction, rashSelect [facility] (20 sources)Azithromycin; Translations: [azithromycin]Drug Zxozvaf50-03-9511 Unknown ReactionSelect Medical Trihealth Rehabilitation HospitalComment on above:Tachycardia and rash (20 sources)oxyCODONE; Translations: [oxycodone]Drug Bplkcvx09-63-3214 PalpitationsSelect Medical [facility] (5 sources)PenicillinDrug AllergyH[facility] [employer] Other (20 sources)Penicillin G sodiumAllergy to hltloemrp38-45-6465[facility] (20 sources)Levonorgestrel-Ethinyl Estrad; Translations: [LEVONORGESTREL-ETHINYL ESTRAD]Drug Iowzkjfpvuo23-26-9256Lpltp (See Comments)[facility] (15 sources)Pollen; Translations: [POLLEN EXTRACTS]Propensity to adverse reactions to rvoo65-74-6773Xrcfo (See Comments)[facility] (1 source)DoxycyclineDrug Bmtczjq99-61-2732FgwebpvzfSelect Medical [facility] Repository Medications Current Medications MedicationDrug Class(es)DatesSig (Normalized)Sig (Original)acetaminophen 250 mg / aspirin 250 mg / caffeine 65 mg oral tablet (2 sources)Platelet Aggregation Inhibitor, Nonsteroidal Anti-inflammatory Drug, Central Nervous System Stimulant, Methylxanthinetake 2 tablets by mouth every twenty-four hoursExcedrin Migraine 250-250-65 MG 2 tablets Orally Once a day Activeacetaminophen 325 mg / HYDROcodone bitartrate 5 mg oral tablet (4 sources)Opioid AgonistStart: 08-27-2024 End: 35-72-4808MEROXoireuk-acetaminophen (NORCO) 5-325 mg per tablet Indications: Acute post-operative pain Take 1tablet by mouth every 4 (four) hours as needed for pain for up to 3 days. Max Daily Amount: 6 tablets 18 tablet 08/27/2024 08/30/2024 ActiveStart: 06-28-2024 End: 34-77-2208mdww 1 tablet by mouth every six hours as needed for pain Hydrocodone-Acetaminophen 5-325 mg tablet Discontinued 1 - 2 TAB PO Q6H as needed for pain 15 3 June 28, 2024 February 18, 2025 6:15pmadapalene 0.001 mg/mg topical gel (10 sources)RetinoidStart: 83-23-5243ovlmwncxt (DIFFERIN) 0.1 % gel Indications: Acne vulgaris Apply to all acne-prone areas at bedtime.45 g 5 08/16/2023 Active Comment on above:Apply to all acne-prone areas at bedtime.betamethasone 0.5 mg/ml / clotrimazole 10 mg/ml topical cream (13 sources)Azole Antifungal, CorticosteroidStart: 12-26-2023 End: 11-36-4756ikifsetqyoow-betamethasone (LOTRISONE) cream Apply 1 application to affected area two times a day. 45 g 11 12/26/2023 01/25/2024 ActiveStart: 06-27-2023 End: 13-04-0316uaglxrmsmjkz-betamethasone (LOTRISONE) cream Indications: Otomycosis Apply 1 Application topically in the morning and 1 Application before bedtime. Apply to external auditory canals twice daily for 1week then twice weekly thereafter.. 30 g 3 06/27/2023 08/20/2024 Discontinued (Therapy completed)Comment on above:Apply 1 application to affected area two times a day. cephalexin 500 mg oral capsule (20 sources)Cephalosporin AntibacterialStart: 07-15-2025 End: 64-30-7617ezdmzkxbcl (Keflex) 500 MG capsule Indications: Vaginal burning , Vaginal irritation , Vaginal itching Take 1 capsule (500 mg) by mouth in the morning and 1 capsule (500 mg) at noon and 1 capsule (500 mg) in the evening and 1 capsule (500 mg) before bedtime. Do all this for 10 days. 40 capsule 07/1507/25/2025 ActiveStart: 06-28-2024 End: 23-09-8294java 2 capsules by mouth twice dailyCephalexin 500 mg capsule Discontinued 1000 MG PO Twice daily 05 05June 28, 2024 12:00am 2024 6:15pmStart: 08-30-7361bwdb 1000 mg by mouth twice dailyCephalexin Active 1000 MG PO Twice daily 05 05June 28, 2024 12:00amStart: 12-01-2021 End: 33-17-2087gbzhCOEUhe (KEFLEX) 500 mg capsule Take 500 capsules by mouth as needed. 0 12/01/2021 08/20/2022 Discontinued (Course of therapy completed) Comment on above:Take 500 capsules by mouth as needed.ciprofloxacin 500 mg oral tablet (1 source)Quinolone AntimicrobialStart: 10-29-2024 End: 20-32-7789ojjc 1 tablet by mouth in the morningciprofloxacin (Cipro) 500 MG tablet Indications: Acute vaginitis Take 1 tablet (500 mg) by mouth inthe morning and 1 tablet (500 mg) before bedtime. Do all this for 5 days. 10 tablet 1 10/29/2024 11/03/2024 Activeciprofloxacin 3 mg/ml / dexamethasone 1 mg/ml otic suspension (3 sources)Corticosteroid, Quinolone AntimicrobialStart: 03-18-2024 End: 76-84-0531akowwkbwpltrd-dexAMETHasone (CIPRODEX) otic suspension Indications: Otomycosis , Dysfunction of right eustachian tube , Acute right otitis media Administer 4 drops into both ears in the morning and 4drops before bedtime. Do all this for 5 days. 7.5 mL 03/18/2024 03/23/2024 ActiveStart: 11-73-8708Agnelcsroosov-dexAMETHasone 0.3-0.1 % 4 drops into affected ear Otic Twice a day for 7 days Not-Taking/PRNclindamycin 300 mg oral capsule (20 sources)Lincosamide AntibacterialStart: 07-30-2025 End: 19-21-8388vloowtgibbd (Cleocin) 300 MG capsule Indications: Urinary tract infection without hematuria, site unspecified Take 1 capsule (300 mg) by mouth in the morning and 1 capsule (300 mg) at noon and 1 capsule (300 mg) in the evening and 1 capsule (300 mg) before bedtime. Do all this for 10 days. 40 capsule 07/30/2025 08/09/2025 ActiveStart: 06-03-2025 End: 13-60-5533jcnzgjgtcvd (Cleocin T) 1 % external solution Indications: Acne vulgaris Apply topically in the morning and before bedtime. APPLY TO AFFECTED AREAS ON FACE ONCE A DAY. 30 mL 3 06/13/2025 ActiveStart: 05-95-4683oygptzixzrz (CLEOCIN) 1 % external solution Indications: Acne vulgaris APPLY TO AFFECTED AREAS ON FACE ONCE EVERYDAY 60 mL 03/19/2025 ActiveStart: 75-77-1686gcbgfffkdxi (Cleocin T) 1 % external solution APPLY TO AFFECTED AREAS ON FACE ONCE A DAY 10/13/2024tiveStart: 12-26-2023 End: 44-26-0355abfjqltdrre (CLEOCIN) 1 % external solution Indications: Acne vulgaris APPLY TO AFFECTED AREAS ON FACE ONCE A DAY 60 mL 01/08/2025 03/19/2025 DiscontinuedStart: 09-12-2022 End: 21-62-3536dheoduzorle (CLEOCIN) 1 % external solution Indications: Acne vulgaris Apply to the affected area of face once daily. 60 mL 5 05/05/2023 ActiveStart: 08-17-2022 End: 22-41-1177ddsxrmbyehf (CLEOCIN T) 1 % lotion Apply 1 application. topically in the morning. 08/17/2022 08/20/2024 Discontinued (Therapy completed)Start: 06-01-2022 End: 22-47-8840gaogxhidisl (CLEOCIN) 1 % external solution Indications: Acne vulgaris Apply to the affected area of acne twice daily. 60 mL 5 06/01/2022 08/17/2022 DiscontinuedStart: 03-17-2022 End: 95-01-5495Apuznwshcqi Phosphate (CLEOCIN T) 1 % lotion Indications: Acne vulgaris Apply to facial area daily at bedtime. 60 mL 5 08/17/2022 09/12/2022 Discontinued (Side Effects)Start: 08-30-2021 End: 48-82-5113zocvdvjnlfc (CLEOCIN) 1 % external solution Indications: Acne vulgaris Apply to the affected area once daily in the morning. 60 mL 5 03/16/2022 03/17/2022 DiscontinuedClindamycin Phosphate ActiveComment on above: Apply to the affected area once daily in the morning.Apply to facial area daily in the morningApply to the affected area of acne twice daily.Apply to facial area daily at bedtime.Apply to the affected area of face once daily in AMApply to the affected area of face once daily.Condoms - Male misc (11 sources)Start: 10-29-2024 End: 19-70-5344Kfzpobv - Male misc Indications: Acute vaginitis 1 Units Daily 10 Units 2 10/29/2024 06/13/2025 DiscontinuedStart: 57-59-6546Afpofly - Male misc Indications: Acute vaginitis 1 Units Daily 10 Units 2 10/29/2024 Activedapsone 0.05 mg/mg topical gel (7 sources)SulfoneStart: 05-05-2023 End: 64-78-5723Vzgugfm (ACZONE) 5 % gel Indications: Acne vulgaris Apply to affected area every morning. 60 g 5 05/05/2023 05/04/2024 ActiveStart: 82-74-5075Pxcvqgv (ACZONE) 5 % gel Indications: Acne vulgaris Apply to affected area every morning. 60 g 3 01/04/2023 ActiveComment on above:Apply to affected area every morning.fluticasone propionate 0.05 mg/actuat metered dose nasal spray (1 source)CorticosteroidStart: 63-35-0443uaax 1 spray(s) nasal route once daily Fluticasone Propionate 50 MCG/ACT 1 spray in each nostril Nasally Once a day for 14 day(s) Jun, Activemeclofenamate 100 mg oral capsule (13 sources)Start: 20-14-1551skjptvehabrhx (Meclomen) 100 MG capsule Indications: Chiari malformation type I (HCC) One tablet tid on menses No hormones due to Chiari malformation 120 capsule 2 06/10/2025 Cxxbws29 hr methylphenidate hydrochloride 18 mg extended release oral tablet (20 sources)Central Nervous System StimulantStart: 02-17-2025 End: 17-74-4834jhkj 1 tablet by mouth in the morningmethylphenidate ER (Concerta) 18 MG CR tablet Indications: Attention deficit hyperactivity disorder (ADHD), combined type Take 1 tablet (18 mg) by mouth in the morning. Do not crush, chew, or split. 30 tablet 06/13/2025 ActiveStart: 05-17-2024 End: 83-14-0666gpxh 1 tablet by mouth in the morningmethylphenidate ER (Concerta) 18 MG CR tablet Indications: Attention deficit hyperactivity disorder (ADHD), combined type Take 1 tablet (18 mg) by mouth in the morning. Do not crush, chew, or split. 30 tablet 02/17/2025 ActiveStart: 12-19-2023 End: 84-76-2383acfl 1 tablet by mouth once dailymethylphenidate HCl (CONCERTA) 18 mg CR tablet Take 1 tablet (18 mg total) by mouth daily. 0 12/19/2023 01/18/2024 ActiveComment on above:Take 18 mg by mouth once daily. methylPREDNISolone (6 sources)CorticosteroidStart: 39-80-5875lhxpqjQFSHVXQlrtsu (MEDROL, [place],) 4 mg tablet Indications: Tongue swelling follow package directions 21 tablet 09/03/2024 ActivemetroNIDAZOLE 500 mg oral tablet (2 sources)Nitroimidazole AntimicrobialStart: 08-17-2024 End: 78-54-9684elmf 1 tablet by mouth in the morning, then take 1 tablet by mouth at bedtimemetroNIDAZOLE (FLAGYL) 500 mg tablet Take 1 tablet (500 mg total) by mouth in the morning and 1 tablet (500 mg total) before bedtime. 08/17/2024 08/24/2024 Activenitrofurantoin, macrocrystals 25 mg / nitrofurantoin, monohydrate 75 mg oral capsule (1 source)Nitrofuran AntibacterialStart: 06-13-2025 End: 00-86-7760eslc 1 capsule by mouth in the morningnitrofurantoin, macrocrystal-monohydrate, (Macrobid) 100 MG capsule Indications: Urinary tract infection without hematuria, site unspecified Take 1 capsule (100 mg) by mouth in the morning and 1 capsule (100 mg) before bedtime. Do all this for 7 days. 14 capsule 06/13/2025 06/20/2025 Activeondansetron 4 mg oral tablet (20 sources)Serotonin-3 Receptor AntagonistStart: 07-14-2025 End: 13-53-5203dlct 1 tablet by mouth twice daily as needed for nausea ondansetron (Zofran) 4 MG tablet Indications: Nausea Take 1 tablet (4 mg) by mouth 2 (two) times a day as needed for nausea or vomiting 20 tablet 07/14/2025 08/13/2025 ActiveStart: 11-16-2024 End: 25-67-0854uozt 1 tablet by mouth every eight hours as needed for nausea and vomitingondansetron ODT (Zofran-ODT) 4 MG disintegrating tablet Take 4 mg by mouth every 8 (eight) hours ifneeded for nausea or vomiting 11/16/2024 06/10/2025 DiscontinuedStart: 11-16-2024 End: 64-75-3237bowa 1 tablet by mouth three times daily as needed for nausea ondansetron (ZOFRAN-ODT) 4 MG disintegrating tablet Take 1 tablet by mouth 3 times daily as needed for Nausea or Vomiting 21 tablet 11/16/2024 12/01/2024 Discontinued (Contraindicated)Start: 11-16-2024 End: mg, IntraVENous, ONCE, 1 dose, On 11/16/24 at 0115Start: 09-23-2023 End: 57-26-0898ekpo 1 tablet by mouth every eight hours as needed for nausea ondansetron ODT (ZOFRAN ODT) 4 mg disintegrating tablet Dissolve 1 tablet (4 mg total) on tongue every 8 (eight) hours as needed for nausea for up to 10 doses. 10 tablet 09/23/2023 08/20/2024 Discontinued (Therapy completed)Start: 12-15-2021 End: 21-95-3948jqqb 1 tablet by mouth every four hours as neededondansetron orally disintegrating (ZOFRAN ODT) 4 mg disintegrating tablet DISSOLVE 1 TABLET IN MOUTH EVERY 4 HOURS NEEDED 0 12/15/2021 08/20/2022 DiscontinuedStart: 12-01-2021 End: 18-18-8021vded 1 tablet by mouth every six hours as needed for nausea and vomitingOndansetron 4 mg tablet,disintegrating Discontinued 4 MG PO Q6H as needed for nausea and vomiting 5February 2021 1:00am August 03, 2023 4:04pmStart: 11-30-2021 End: 53-82-1520qmsi 1 tablet by mouth every eight hours as needed for nausea and vomitingOndansetron 4 mg tablet,disintegrating Discontinued 4 MG PO Q8H as needed for nausea and vomiting November 30, 2021 1:00am August 03, 2023 4:04pmComment on above:DISSOLVE 1 TABLET IN MOUTH EVERY 4 HOURS NEEDED pimecrolimus 10 mg/ml topical cream (20 sources)Calcineurin Inhibitor ImmunosuppressantStart: 81-42-2477dqypvghdhbfh (ELIDEL) 1 % cream Indications: Other eczema APPLY 2 TIMES DAILY TO FACIAL AREAS NEEDED FOR RASH/ITCHING 30 g 3 09/12/2022 ActiveComment on above:APPLY 2 TIMES DAILY TO FACIAL AREAS NEEDED FOR RASH/ITCHINGPrenatal Vit-Fe Fumarate- FA ( Vitamins) 28-0.8 MG tablet (5 sources)Start: 07-03-2025 End: 11-43-4300grty 1 tablet by mouth once dailyPrenatal Vit-Fe Fumarate-FA ( Vitamins) 28-0.8 MG tablet Indications: confirmed by positive blood test ([facility]) Take 1 tablet by mouth Daily 30 tablet 07/03/2025 07/03/2026 Activesulfacetamide sodium 100 mg/ml / sulfur 50 mg/ml topical lotion (10 sources)Sulfonamide AntibacterialStart: 74-64-4953Knzjuiqyqirey Sodium- Sulfur 10-5 % (w/w) lotn Indications: Acne vulgaris Apply to all acne-prone are as twice daily 60 g 5 08/16/2023 ActiveComment on above:Apply to all acne-prone areas twice dailysulfamethoxazole 800 mg / trimethoprim 160 mg oral tablet (1 source)Dihydrofolate Reductase Inhibitor Antibacterial, Sulfonamide AntimicrobialStart: 03-07-2024 End: 57-05-7481shhl 1 tablet by mouth once in the morningsulfamethoxazole- trimethoprim (BACTRIM DS) 800-160 mg per tablet Take 1 tablet by mouth in the morning and 1 tablet before bedtime. Do all this for 7 days. 14 tablet 03/07/2024 03/14/2024 Activeterbinafine 250 mg oral tablet (3 sources)Allylamine AntifungalStart: 11-21-2023 End: 80-82-2511gidu 1 tablet by mouth once dailyterbinafine HCl (LAMISIL) 250 mg tablet Take 1 tablet by mouth once daily. 90 tablet 0 11/21/2023 02/19/2024 ActiveComment on above:Take 1 tablet by mouth once daily.terconazole 4 mg/ml vaginal cream (3 sources)Azole AntifungalStart: 10-23-2024 End: 31-76-2694giawpinxdtq (Terazol 7) 0.4 % vaginal cream Indications: Vulvovaginal Candidiasis Insert 1 applicator into the vagina at bedtime for 7 days 45 g 2 10/23/2024 10/30/2024 Activetriamcinolone acetonide 1 mg/ml topical cream (13 sources)CorticosteroidStart: 10-23-2024 End: 20-71-3792jzypzkkrnpqcc (Kenalog) 0.1 % cream Indications: Vaginal burning Apply topically 2 (two) times a day 30 g 2 10/23/2024 06/13/2025 Discontinued vancomycin 250 mg oral capsule (1 source)Glycopeptide AntibacterialStart: 07-30-2025 End: 87-31-2307ehyckjosdg (Vancocin) 250 MG capsule Indications: Urinary tract infection without hematuria, site unspecified Take 1 capsule (250 mg) by mouth in the morning and 1 capsule (250 mg) at noon and 1 capsule (250 mg) in the evening and 1 capsule (250 mg) before bedtime. Do all this for 10 days. 40 capsule 07/30/2025 08/09/2025 Active Completed/Discontinued Medications MedicationDrug Class(es)DatesSig (Normalized)Sig (Original)acetaminophen 325 mg / butalbital 50 mg / caffeine 40 mg oral capsule (7 sources)Barbiturate, Central Nervous System Stimulant, MethylxanthineStart: 11-30-2021 End: 18-38-6917zxea 1 capsule by mouth every six hours as needed for pain Nbsddymelz-Slfeultcdzrbq-Hupy 50-325-40 mg capsule Discontinued 1 CAP PO Q6H as needed for pain November 30, 2021 1:00am August 03, 2023 4:04pm12 hr acetaZOLAMIDE 500 mg extended release oral capsule (5 sources)Carbonic Anhydrase InhibitorStart: 11-17-2022 End: 27-45-0586cdlxtVRUHMBHN SR (DIAMOX SEQUELS) 500 mg capsule Take 1 at bedtime. Can increase to bid after 1 month only if needed 60 capsule 5 11/17/2022 06/01/2023 DiscontinuedComment on above:Take 1 at bedtime. Can increase to bid after 1 month only if neededamoxicillin 500 mg oral capsule (2 sources)Penicillin-class AntibacterialStart: 54-50-6360opkc 1 capsule by mouth every eight hoursAmoxicillin 500 MG 1 capsule Orally three times a day for 10 day(s) Jun, Not-Taking/PRNazithromycin 500 mg oral tablet (7 sources)Macrolide AntimicrobialStart: 08-03-2023 End: 60-90-5507amcn 1 tablet by mouth once dailyAzithromycin (Zithromax) 500 mg tablet Discontinued 500 MG PO Daily 7 August 03, 2023 12:00am August 17, 2023 4:57pmcetirizine hydrochloride 10 mg oral tablet (5 sources)Histamine-1 Receptor AntagonistStart: 03-05-2024 End: 44-44-9554lcnk 1 tablet by mouth once daily as neededcetirizine (ZyrTEC) 10 MG tablet Indications: Rash and nonspecific skin eruption TAKE 1 TABLET (10 MG) BY MOUTH DAILY NEEDED 30 tablet 03/05/2024 07/17/2024 Discontinuedciclopirox 80 mg/ml topical solution (14 sources)Start: 11-29-2021 End: 59-40-7448Ttkdkpdnxq (LOPROX) 8 % solution APPLY 1 APPLICATION EXTERNALLY EVERY DAY 0 11/29/2021 08/20/2022 DiscontinuedComment on above:APPLY 1 APPLICATION EXTERNALLY EVERY DAYcyclobenzaprine hydrochloride 10 mg oral tablet (14 sources)Muscle RelaxantStart: 11-29-2021 End: 68-34-3260besd 1 tablet by mouth three times dailycyclobenzaprine (FLEXERIL) 10 mg tablet Take 10 mg by mouth three times daily. 0 11/29/2021 08/20/2022 Discontinued (Course of therapy completed)Comment on above:Take 10 mg by mouth three times daily.diphenhydrAMINE hydrochloride 25 mg oral capsule (14 sources)Histamine-1 Receptor AntagonistStart: 12-22-2021 End: 26-76-2708miqs 1-2 capsules by mouth at bedtimediphenhydrAMINE (BENADRYL) 25 mg capsule Take 1-2 po at bedtime 60 capsule 5 12/22/2021 08/20/2022 D iscontinued (Course of therapy completed)Comment on above:Take 1-2 po at bedtime doxycycline monohydrate 100 mg oral tablet (3 sources)Tetracycline-class DrugStart: 08-17-2022 End: 39-19-9263sdbi 1 tablet by mouth once dailydoxycycline monohydrate 100 mg tablet Indications: Acne vulgaris Take 1 tablet by mouth once daily.30 tablet 1 08/17/2022 09/12/2022 Discontinued (Side Effects)Comment on above:Take 1 tablet by mouth once daily.2 ml droperidol 2.5 mg/ml injection (1 source)Dopamine-2 Receptor AntagonistStart: 11-16-2024 End: .25 mg, IntraVENous, ONCE, 1 dose, On 11/16/24 at 0215Start: 11-16-2024 End: .25 mg, IntraVENous, ONCE, 1 dose, On 11/16/24 at 0215Ethinyl Estradiol / Levonorgestrel (14 sources)Progestin, Estrogen, Progestin-containing Intrauterine DeviceStart: 11-29-2021 End: 29-93-6792qhvu 0.02 tablet by mouth once dailyBALCOLTRA 0.1 mg-0.02 mg (21)/36.5 mg(7) tab Take 1 tablet by mouth once daily. 0 11/29/2021 08/20/2022 Discontinued (Course of therapy completed)Start: 26-37-5670ietx 0.02 tablet by mouth once dailyBALCOLTRA 0.1 mg-0.02 mg (21)/36.5 mg(7) tab Take 1 tablet by mouth once daily. 0 11/29/2021 ActiveComment on above:Take 1 tablet by mouth once daily.ibuprofen 800 mg oral tablet (19 sources)Nonsteroidal Anti-inflammatory DrugStart: 02-27-2025 End: 32-13-2032gqod 1 tablet by mouth every eight hours as needed for pain and painibuprofen 800 MG tablet Take 800 mg by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 [phone] Culture Clean Catch Reflexon 11-69-5131Gpphtahm identified Cx Nom (U)Enterococcus faecalis AbnormalNOAR HealthcareComment on above:Enterococci susceptible to penicillin are predictably susceptible to ampicillin, amoxicillin, ampicillin-sulbactam, amoxicillin-clavulanate, and piperacillin-tazobactam for ygm-ovop-zkgygqozu producing enterococci. (CLSI 2018) For Enterococcus species, aminoglycosides (except for high-level resistance screening), cephalosporins, clindamycin, and trimethoprim-sulfamethoxazole are not effective clinically. (CLSI, D349-M48, 2016) Note: this isolate is vancomycin-susceptible. This information is provided for epidemiologic purposes only: vancomycin is not among the antibiotics recommended for therapy of urinary tract infections caused by Enterococcus. Greater than 100,000 colony forming units per mL Bacteria identified Cx Nom (U)Escherichia coliAbnormalJORDAN VALLEY [facility]US HealthcareComment on above:Cefazolin with an MAGALI <=16 predicts susceptibility to the oral agents cefaclor, cefdinir, cefpodoxime, cefprozil, cefuroxime, cephalexin, and loracarbef when used for therapy of uncomplicated urinary tract infections due to E. coli, Klebsiella pneumoniae, and Proteus mirabilis. 10,000-25,000 colony forming units per mL Other Antibiotic [Susc]CommentNOAR HealthcareComment on above: S = Susceptible; I = Intermediate; R [...] S Tobramycin S Trimethoprim/Sulfa S Vancomycin S NOMS HealthcareUrine cultureon 89-81-5077Gylvbtlx identified Cx Nom (U)Final reportAbnormalSaint Louis University Health Science Center PREG QUANT [facility]on 62-33-1958BOZ QUANTITATIVE 61285hHW/mLNOMS HealthcareComment on above:5-50 0.2-1 WEEK 50-500 1-2 WEEKS 100-5,000 2-3 WEEKS 500-10,000 3-4 WEEKS 1,000-50,000 4-5 WEEKS 10,000-100,000 5-6 WEEKS 15,000-200,000 6-8 WEEKS 10,000-100,000 2-3 [facility] PREG QUANT HCGon 92-99-2832TJG UMEGAFNKTTTQ9845 mIU/mLNOMS HealthcareComment on above:5-50 0.2-1 WEEK 50-500 1-2 WEEKS 100-5,000 2-3 WEEKS 500-10,000 3-4 WEEKS 1,000-50,000 4-5 WEEKS 10,000-100,000 5-6 WEEKS 15,000-200,000 6-8 WEEKS 10,000-100,000 2-3 MON[facility] PREG QUANT HCGon 59-06-0572NCZ WQTOPENVLOGF177aLE/mL [facility] HealthcareComment on above:5-50 0.2-1 WEEK 50-500 1-2 WEEKS 100-5,000 2-3 WEEKS 500-10,000 3-4 WEEKS 1,000-50,000 4-5 WEEKS 10,000-100,000 5-6 WEEKS 15,000-200,000 6-8 WEEKS 10,000-100,000 2-3 MONTHS [facility] HospitalMETHYLENETETRAHYDROFOLATE REDUCTASE (MTHFR) THERMOLABILS on 57-49-5258Ndwdoorpxxvwsk and review of laboratory resultsCommentHannibal Regional HospitalComment on above:Technical Component performed at [facility] RT[facility] Professional Component performed by: Rohit Caballero, PhD, [facility] [id number], [facility], [address] [place] [address] MTHFR gene targeted mutation analysis [facility] (Bld/Tiss)CommentNOBarnes-Jewish Saint Peters HospitalComment on above:Result: c.665C>T (p. Ykp833Spm), legacy name: C677T - Not Detected c.1286A>C (p. Bts741Muq), legacy name: [id number] - Not Detected Interpretation: This result is [...] that can decrease enzyme activity; c.665C>T (p. Trr205Kcw), legacy name [id number], and c.1286A>C (p. Kww781Rdc), legacy name [id number]. These variants do not independently increase risk [...] to limited evidence of clinical utility (PMID: 64414148). Comments: Genetic Coordinators are available for health care providers to discuss results at [phone]). Test Details: Variants Analyzed: c.665C>T (p. Fmf698Vln), legacy name: C677T and c.1286A>C (p. Tpi636Nss), legacy name: [id number] Methods/Limitations: DNA analysis of the MTHFR gene [...] developed and its performance characteristics determined by [facility]. It has not been cleared or approved by the Food and Drug Administration. References: Mila SE, Homer CJ, Kelsey HV. ACMG Practice Guideline: lack of evidence for MTHFR polymorphism testing. Jennyfer Med. 2013 Nov;15(2):153-6. doi: 10.1038/gim.2012.165. Epub 2012Oct 11. PMID: 16670057. [place] [employer]etric[employer] Gynec[employer]' Committee on Practice Bulletins-Obstetrics. ACOG Practice Bulletin No. 197: Inherited Thrombophilias in . Obstet Gynecol. 2018 Apr;132(1):e18-e34. doi: 10.1097/AOG.7443161608895569. Erratum in: Obstet Gynecol. 2018 Jul;132(4):1069. PMID: 52237627. Performed at: - [facility] [address], [place] [id number] Line Repairer Tower: Madyson Gillette [facility], Phone: [phone] Mark's Medical Center Cultureon 33-80-3337Jqqkulig identified Cx Nom (U)>100,000 colonies/ml mixed bacterial skin contaminants 2 Days PERFORMED BY: [place] [address] PATHOLOGIST CREPE BOX TENDER ANNA KEENAN M.D.[facility] Physician GroupComment on above: Performed By: #### FS #### [address] #### GCCHLAMAMP #### [facility] ,HCG-BETA, SERUMon 29-55-2766WLA.beta subunit Nx4014 m[IU]/mLNormal [facility]Medica Dawson HospitalComment on above:Order Comment: WEEKS (SINCE LMP) MIU/mL 3 WEEKS [...] trophoblastic or nontrophoblastic neoplasms. Performed By: #### HCG #### [facility] ([address] [address] VIRHEMOGLOBIN AND HEMATOCRIT, BLOODon 98-50-4936Kpdnnntpph (Bld) [Volume fraction]36.1 %Kjrkqk51-19IapTtdukx [facility] Medical CenterComment on above:Performed By: #### HH #### [facility] ([address] [address] VIRHemoglobin (Bld) [Mass/Vol]12.5 g/fRZebaic93.7-15.5 [facility] HospitalComment on above:Performed By: #### HH #### [facility] ([address] [address] VIRCBC WITH AUTO DIFFERENTIALon 52-39-0015UEPFDFRHC ABSOLUTE COUNT (10*3/UL) BY AUTOMATED COUNT0.1 10*3/uLNormal0.0-0.2Pro[facility]ica [facility] Global Medical CenterComment on above:Performed By: #### CBCA #### [facility] ([address] [address] VIRBASOPHILS RELATIVE PERCENT BY AUTOMATED COUNT0.7 %Normal [facility] HospitalComment on above:Performed By: #### CBCA #### [facility] ([address] [place] [address] VIRCELLAVISION DIFFERENTIAL TYPEAUTOMATED DIFFERENTIALNormal [facility] HospitalComment on above:Performed By: #### CBCA #### [facility] ([address] [place] [address] VIREosinophils (Bld) [#/Vol]0.0 10*3/uLNormal0.0-0.4[facility] HospitalComment on above:Performed By: #### CBCA #### [facility] ([address] [place] [address] VIREOSINOPHILS RELATIVE PERCENT BY AUTOMATED COUNT0.5 %Normal [facility] HospitalComment on above:Performed By: #### CBCA #### [facility] ([address] [place] [address] VIRErythrocyte distribution width (RBC) [Ratio]13.2 %Normal 11.5-15[facility] HospitalComment on above:Performed By: #### CBCA #### [facility] ([address] [place] [address] VIRHematocrit (Bld) [Volume fraction]43.1 %Aouveg53-40 [facility] HospitalComment on above:Performed By: #### CBCA #### [facility] ([address] [place] [address] VIRHemoglobin (Bld) [Mass/Vol]14.6 g/zKCabfdo86.7-15.5 [facility] HospitalComment on above:Performed By: #### CBCA #### [facility] ([address] [place] [address] VIRLYMPHOCYTES ABSOLUTE COUNT (10*3/UL) BY AUTOMATED COUNT1.7 10*3/uLNormal1.0-3.5PPremier Health Miami Valley Hospital NorthComment on above:Performed By: #### CBCA #### [facility] ([address] [place] [address] VIRLYMPHOCYTES RELATIVE PERCENT BY AUTOMATED COUNT20.4 %Normal [facility] HospitalComment on above:Performed By: #### CBCA #### [facility] ([address] [place] [address] VIRMCH (RBC) [Entitic mass]30.8 fuMxdnvc94-32XvgFgfbszMercer County Community HospitalComment on above:Performed By: #### CBCA #### [facility] ([address] [place] [address] VIRMCHC (RBC) [Mass/Vol]33.8 g/kBUiuehg16-31HxrRkfcmhThe Hospitals Of Providence Transmountain CampusComment on above:Performed By: #### CBCA #### [facility] ([address] [place] [address] VIRMCV (RBC) [Entitic vol]91 pQLotowf99-822OmpRbazlb [facility]remont HospitalComment on above:Performed By: #### CBCA #### [facility] ([address] [place] [address] VIRMONOCYTES ABSOLUTE COUNT (10*3/UL) BY AUTOMATED COUNT0.7 10*3/uLNormal0.0-0.9[facility] HospitalComment on above:Performed By: #### CBCA #### [facility] ([address] [place] [address] VIRMONOCYTES RELATIVE PERCENT BY AUTOMATED COUNT8.1 %Normal [facility] HospitalComment on above:Performed By: #### CBCA #### [facility] ([facility]) [address] [place] [address] [place] [address] VIRNEUTROPHILS ABSOLUTE COUNT BY AUTOMATED COUNT6.0 10*3/uL Normal1.5-6.6[facility] Community HospitalComment on above:Performed By: #### CBCA #### [facility] ([address] [place] [address] VIRNEUTROPHILS RELATIVE PERCENT BY AUTOMATED COUNT70.3 %Normal [facility] HospitalComment on above:Performed By: #### CBCA #### [facility] ([address] [place] [address] VIRPlatelet mean volume (Bld) [Entitic vol]8.1 fLNormal7-12 [facility] HospitalComment on above:Performed By: #### CBCA #### [facility] ([address] [place] [address] VIRPlatelets (Bld) [#/Vol]239 10*3/sVUnzrag746-784BukFtnuud [facility] HospitalComment on above:Performed By: #### CBCA #### [facility] ([address] [place] [address] VIRRBC COUNT4.72 X10E12/LNormal3.8-5.2PPremier Health Miami Valley Hospital NorthComment on above:Performed By: #### CBCA #### [facility] ([address] [place] [address] VIRWBC (Bld) [#/Vol]8.6 10*3/uLNormal4-11[facility] HospitalComment on above:Performed By: #### CBCA #### [facility] ([address] [place] [address] VIRCOMPREHENSIVE METABOLIC PANELon 73-63-1928Besnrxd [Mass/Vol]4.5 g/dLNormal3.2-5.3PPremier Health Miami Valley Hospital NorthComment on above: Performed By: #### CMP #### [facility] ([address] [place] [address] VIRALP [Catalytic activity/Vol]67 U/KIhomyc95-580YpkWyashbThe Hospitals Of Providence Transmountain CampusComment on above:Performed By: #### CMP #### [facility] ([address] [place] [address] VIRALT [Catalytic activity/Vol]27 U/LNormal<=31PPremier Health Miami Valley Hospital NorthComment on above:Performed By: #### CMP #### [facility] ([address] [place] [address] VIRAnion gap [Moles/Vol]5 mmol/LNormal5-15ProThe Hospitals Of Providence Transmountain CampusComment on above:Performed By: #### CMP #### [facility] ([address] [place] [address] VIRAST [Catalytic activity/Vol]24 U/LNormal<=41ProThe Hospitals Of Providence Transmountain CampusComment on above:Performed By: #### CMP #### [facility] ([address] [place] [address] VIRBilirubin [Mass/Vol]2.0 mg/dLHigh0.3-1.2PPremier Health Miami Valley Hospital NorthComment on above:Performed By: #### CMP #### [facility] ([address] [place] [address] VIRCalcium [Mass/Vol]8.8 mg/dLNormal8.5-10.5PSpanish Peaks Regional Health Center HospitalComment on above:Performed By: #### CMP #### [facility] ([address] [place] [address] VIRChloride [Moles/Vol]100 mmol/VVmxipg23-998SpjIscmbv [facility] HospitalComment on above:Performed By: #### CMP #### [facility] ([address] [place] [address] VIRCO2 [Moles/Vol]27 mmol/AVhqpba08-63EuwBfkmmr [facility] HospitalComment on above:Performed By: #### CMP #### [facility] ([address] [place] [address] VIRCreatinine [Mass/Vol]0.71 mg/dLNormal0.40-1.00ProThe Hospitals Of Providence Transmountain CampusComment on above:Result Comment: METHOD TRACEABLE TO IDMS STANDARDPerformed By: #### CMP #### [facility] ([address] [place] [address] VIREGFR (CKD-EPI) NON-RACE DEPENDENT>^90Normal>=60ProThe Hospitals Of Providence Transmountain CampusComment on above:Result Comment: eGFR not reported due to non- numeric value for Creatinine. Reported eGFR is based on the CKD-EPI 1 equation that does not use a race coefficient.Performed By: #### CMP #### [facility] ([address] [place] [address] VIRGlucose [Mass/Vol]100 mg/rIAfob84-45ZypNocqxdThe Hospitals Of Providence Transmountain CampusComment on above:Performed By: #### CMP #### [facility] ([address] [place] [address] VIRPotassium [Moles/Vol]3.4 mmol/LLow3.5-5.0ProThe Hospitals Of Providence Transmountain CampusComment on above:Performed By: #### CMP #### [facility] ([address] [place] [address] VIRProtein [Mass/Vol]7.4 g/dLNormal6.0-8.0ProThe Hospitals Of Providence Transmountain CampusComment on above:Performed By: #### CMP #### [facility] ([address] [place] [address] VIRSodium [Moles/Vol]132 mmol/PSjw652-546FfvDkhemtThe Hospitals Of Providence Transmountain CampusComment on above:Performed By: #### CMP #### [facility] ([address] [address] VIRUrea nitrogen [Mass/Vol]12 mg/dLNormal5-23ProThe Hospitals Of Providence Transmountain CampusComment on above:Performed By: #### CMP #### [facility] ([address] [address] VIRHCG-BETA, SERUMon 42-09-5319[place] [address] m[IU]/mLNormalProThe Hospitals Of Providence Transmountain CampusComformerly [facility] on above:Order Comment: WEEKS (SINCE LMP) MIU/mL 3 WEEKS [...] trophoblastic or nontrophoblastic neoplasms. Performed By: #### HCG #### [facility] ([address] [address] VIRPOCT NURSING URINE MACROSCOPIC UAon 35-20-0490OXWAZNOHJ EMILY NegativeNormalNegativeMercer County Community HospitalComment on above:Performed By: #### NUM #### [facility] ([address] [address] VIRBLOOD/HGB NURLargeAbnormalNegativeMercer County Community HospitalComment on above:Performed By: #### NUM #### [facility] ([address] [address] VIRGLUCOSE NURNegativeGulfportNegativeMercer County Community Hospital Comment on above:Performed By: #### NUM #### [facility] ([address] [place] [address] VIRKETONES NUR15 mg/dLAbnormalNegativeMercer County Community HospitalComment on above:Performed By: #### NUM #### [facility] ([address] [address] VIRLEUKOCYTE ESTERASE NURNegativeNomartin general hospitalNegAdams County Regional Medical CenterComment on above:Performed By: #### NUM #### [facility] ([address] [address] VIRNITRITE NURNegativeGulfportNegativeMercer County Community Hospital Comment on above:Performed By: #### NUM #### [facility] ([address] [address] VIRPH NUR6.9Mefbhf2.0, 6.0, 6.5, 7.0, 7.5, 8.0, 8.5, 5.5 [facility] HospitalComment on above:Performed By: #### NUM #### [facility] ([address] [address] VIRPROTEIN NURNegativeNomartin general hospitalNegAdams County Regional Medical Center Comment on above:Performed By: #### NUM #### [facility] ([address] [address] VIRSPECIFIC GRAVITY NUR1.321Ghbdqu7.010, 1.015, 1.020, 1.025 [facility] Community HospitalComment on above:Performed By: #### NUM #### [facility] ([place]) [address] [place] [address]. [place] [address] VIRUROBILINOGEN NUR0.2 E.U./dLNormalMercer County Community Hospital Comment on above:Performed By: #### NUM #### [facility] ([facility]) [address] [place] [address] VIRPOCT , URINE (NUCG)on 55-27-7643Jcft HCG ( test) Ql (U)PositiveAbnormalNegativeMercer County Community HospitalComment on above:Performed By: #### NUCG #### [facility] ([facility]) [address] [place] [address] VIRURINE CULTUREon 58-97-6562Jxvavjsw identified Cx Nom (U) CULTURE RESULTS <10,000 ORGANISMS/mL NORMAL URO GENITAL FLORASt. Charles Hospital Comment on above:Performed By: #### [id number] #### [facility] ([id number]) [address] [place] [address], FIRST FLOOR [place], [place] [address]AG PREG LESS THAN 14 WKS FOR OVARIAN TORSION W/TV/DUPLEXon 99-23-9490EQ PREG LESS THAN 14 WKS FOR OVARIAN TORSION W/TV/DUPLEXUS PREG LESS THAN 14 WKS FOR OVARIAN [...] venous outflow structures of the ovaries with arterialand venous spectral waveforms obtained and reviewed in view of the clinical history of bleeding, evaluate ovarian torsion . Duplex spectral Doppler document arterial and venous spectral waveforms documented within the majorarterial inflow and venous outflow of both ovaries. [...] peripheral blood flow which likely represents a corpusluteum cyst. Normal arterial and venous waveforms. Symmetric echotexture within each ovary. IMPRESSION: * No convincing evidence of ovarian torsion. * Indeterminate location and viability of . Recommend continued follow-up with serial hCGs and repeat transvaginal ultrasound in 7-10 days. Approved by Bailey Matos MD on 02/26/2025 7:56 PM I, Yung Alonso MD have personally reviewed the image(s) and agree with and/or edited the report Finalized by Yung Alonso MD on 02/26/2025 8:17 PMNormalMercer County Community Hospital HCG, Quanton 27-36-3479DDO, Fujth8260.0 mIU/mLHigh<5[facility] Comment on above:Result Comment: Non-preg premeno <=5 Postmeno <=8 Male <=3 If HCG results do not concur with clinical observations, additional testing to confirm results is recommended.Performed By: #### BHCG #### [facility] [address] [place] [address] Line Repairer Tower: Caden Brown MDHCG, Quantitative, Pregnancyon 06-08-2841GWC.beta subunit Dc6129 m[IU]/mLHighNIRussell County Medical CenterComment on above: Non-preg premeno <=5 Postmeno <=8 Male <=3 If HCG results do not concur with clinical observations, additional testing to confirm results is recommended. Interpretation and review of laboratory resultsAbnormalRetreat Doctors' Hospital Bon Mercy Health Anderson HospitalABO/RH Typeon 53-95-4027REZ and Rh group Nom (Bld)Blood group A Rh(D) positiveNormalThe Firelands Physician GroupComment on above:Result Comment: PERFORMED BY: [facility] [address] [place] [address] PATHOLOGIST CREPE BOX TENDER SHANITA MÁRQUEZ M.D.Alanine aminotransferase [Enzymatic activity/volume] in Serum or PlasmaOrdered By: Yaritza Bauer on 36-98-0368KML [Catalytic activity/Vol]Alanine aminotransferase [Enzymatic activity/volume] in Serum or PlasmaSelect Medical Trihealth Rehabilitation HospitalALT [Catalytic activity/Vol]21 U/L NormalSelect Medical Trihealth Rehabilitation HospitalComment on above:Performed By: #### LIPASE, PT, CBC, HEPATIC, BMP, PTT #### [facility] [address] [place] [address] USAAlbumin [Mass/volume] in Serum or Plasma by Bromocresol green (BCG) dye binding methoOrdered By: Yaritza Bauer on 08-75-0625Gancyxs BCG dye [Mass/Vol]Albumin [Mass/volume] in Serum or Plasma by Bromocresol green (BCG) dye binding metho3.5-5.7FPremier Health Miami Valley HospitalAlbumin BCG dye [Mass/Vol]4.3 g/dL3.5-5.7FPremier Health Miami Valley HospitalAlkaline phosphatase [Enzymatic activity/volume] in Serum or PlasmaOrdered By: Yaritza Bauer on 66-96-2286MPP [Catalytic activity/Vol]Alkaline phosphatase [Enzymatic activity/volume] in Serum or Yllitc30-312Cgebfmbzl17 Brown StreetALP [Catalytic activity/Vol]58 U/OSufbzt58-491Rifdfoxwz[address] [place] [address] Comment on above:Performed By: #### LIPASE, PT, CBC, HEPATIC, BMP, PTT #### [facility] [address] [place] [id number] USAAppearance of UrineOrdered By: Yaritza Bauer on 71-09-7897Ktnztsayhi (U)Urine appearanceCleUniversity Hospitals [facility] Appearance (U)ClearNormalClearSelect Medical Trihealth Rehabilitation HospitalComment on above: Order Comment: Name Collection Type:: Clean-Voided MidstreamPerformed By: #### UHCG, UA #### [facility] [address] [place] [address] USAAspartate aminotransferase [Enzymatic activity/volume] in Serum or PlasmaOrdered By: Yaritza Bauer on 95-91-9915JPQ [Catalytic activity/Vol]Aspartate aminotransferase [Enzymatic activity/volume] in Serum or Kffnnp64-41RonatprraSelect Medical Trihealth Rehabilitation HospitalAST [Catalytic activity/Vol]21 U/L Fiuqdp79-20JgrptuxhiSelect Medical Trihealth Rehabilitation HospitalComment on above:Performed By: #### LIPASE, PT, CBC, HEPATIC, BMP, PTT #### [place] [address] USABasic Metabolic Panelon 30-25-4405Nkdareekus Clr Calc Rpkturoc770.[address] [place] [address] Physician [facility] HospitalComment on above:Performed By: #### FS #### [address] #### GCCHLAMAMP #### [facility] ,GFR/1.73 sq M.predicted MDRD (S/P/Bld) [Vol rate/Area]mL/min/{1.73_m2}NormalHca Florida Jfk Hospital Physician [facility] Regional HospitalComment on above:Performed By: #### FS #### [facility] [address] [place] [address] [place] #### GCCHLAMAMP #### [facility] ,Basophils Auto (Bld) [#/Vol]Ordered By: Yaritza Baeur on 04-85-2892Lnfvcbqwj (Bld) [#/Vol]Automated basophil count0.0-0.2FPremier Health Miami Valley Hospital Basophils [#/volume] in Blood by Automated countOrdered By: Yaritza Bauer on 96-17-1929Wfclqhhgd (Bld) [#/Vol]0.1 10*3/uLNormal0.0-0.2FPremier Health Miami Valley HospitalComment on above:Result Comment: PERFORMED BY: [place] [address] PATHOLOGIST [employer]PE BOX TENDER SHANITA MÁRQUEZ M.D.Performed By: #### LIPASE, PT, CBC, HEPATIC, BMP, PTT #### [facility] [address] [place] [address] USABasophils/100 WBC Auto (Bld)Ordered By: Yaritza Bauer on 97-53-8664Ajivafpfk/100 WBC (Bld)Automated basophil %.[facility] Tri[facility] Rehabilitation HospitalBasophils/100 leukocytes in Blood by Automated countOrdered By: Yaritza Bauer on 87-57-1274Dkydhkjvq/100 WBC (Bld)1.9 %Normal.[facility] Rehabilitation HospitalComment on above:Performed By: #### LIPASE, PT, CBC, HEPATIC, BMP, PTT #### [facility] [address] [place] [id number] USABilirubin Test strip Ql (U)Ordered By: Yaritza Bauer on 83-02-5221Minfzkldv Ql (U)Bilirubin.total [Presence] in Urine by Test strip NegativeSelect Medical Trihealth Rehabilitation HospitalBilirubin Ql (U)NegativeNegative [facility] Tri[facility] Rehabilitation HospitalBilirubin.direct [Mass/volume] in Serum or PlasmaOrdered By: Yaritza Bauer on 90-91-2069Rlwcikset.direct [Mass/Vol] Bilirubin.direct [Mass/volume] in Serum or PlasmaHigh0.03-0.18FPremier Health Miami Valley HospitalBilirubin.direct [Mass/Vol]0.30 mg/dLHigh0.03-0.18FPremier Health Miami Valley HospitalBilirubin.total [Mass/volume] in Serum or PlasmaOrdered By: Yaritza Bauer on 74-38-5907Xfdoenvoc [Mass/Vol]Bilirubin.total [Mass/volume] in Serum or PlasmaHigh0.3-1.0[facility] Bilirubin [Mass/Vol]1.1 mg/dLHigh0.3-1.0[facility] Rehabilitation HospitalComformerly [facility] on above:Performed By: #### LIPASE, PT, CBC, HEPATIC, BMP, PTT #### [facility] [facility] [address] [place] [address] USACalcium [Mass/volume] in Serum or PlasmaOrdered By: Yaritza Bauer on 35-71-4747Upzrwpn [Mass/Vol]Calcium [Mass/volume] in Serum or Plasma8.6-10.3[facility] CenterCalcium [Mass/Vol]9.2 mg/dL Normal8.6-10.3FPremier Health Miami Valley HospitalComment on above:Performed By: #### FS #### [facility] [address] [place] [address] #### GCCHLAMAMP #### [facility] ,Carbon dioxide, total [Moles/volume] in Serum or PlasmaOrdered By: Yaritza Bauer on 12-41-6199YB2 [Moles/Vol]Carbon dioxide, total [Moles/volume] in Serum or Xssybn10.0-31.0[facility] HospitalCO2 [Moles/Vol]27.9 mmol/L Hyiybc37.0-31.0[facility] HospitalComment on above:Performed By: #### FS #### [address] #### GCCHLAMAMP #### [facility] ,Chlamydia/GC Amplificationon 99-16-0688Lsnohcsuw Trachomotis, NAANegativeNormal NegativeThe Un[facility] Rockingham Physician GroupComment on above:Order Comment: SOURCE OF SPECIMEN: GenitalPerformed By: #### FS #### [facility] [address] [place] [address] #### GCCHLAMAMP #### [facility] ,Neisseria Gonorrhoeae, NAANegativeNormalNegativeThe [facility] Comment on above:Order Comment: SOURCE OF SPECIMEN: GenitalResult Comment: Performed at: = - [facility] [address] [id number] Line Repairer Tower: Barbie Mota MD, Phone: [phone] PERFORMED BY: [place] [address] PATHOLOGIST [employer] BOX TENDER SHANITA MÁRQUEZ M.D.Performed By: #### FS #### [facility] [address] [place] [address] [place] #### GCCHLAMAMP #### [facility] ,Chloride [Moles/volume] in Serum or PlasmaOrdered By: Yaritza Bauer on 19-94-8450Rjpipgdw [Moles/Vol]Chloride [Moles/volume] in Serum or Gdldvm66-352 [facility] HospitalChloride [Moles/Vol]104 mmol/GPifoco10-159 [facility] HospitalComment on above:Performed By: #### FS #### [address] #### GCCHLAMAMP #### [facility] ,Choriogonadotropin.beta subunit [Units/volume] in Serum or PlasmaOrdered By: Yaritza Bauer on 83-10-3239ZGF.beta subunit QnChoriogonadotropin.beta subunit [Units/volume] in Serum or PlasmaSelect Medical Trihealth Rehabilitation HospitalComment on above:Approximate Approximate hCG Gestational Age Range (mIU/ml) (weeks)0.2-1 5- 50 1-2 50-500 2-3 100-5,000 3-4 500-10,000 4-5 1,000-50,000 5-6 10,000-100,000 6-8 15,000-200,000 8-12 10,000-100,000HCG.beta subunit Ju2275.00 m[IU]/mL [facility] HospitalComment on above:Approximate Approximate hCG Gestational Age Range (mIU/ml) (weeks)0.2-1 5-50 1-2 50-500 2-3 100-5,000 3-4 500-10,000 4-5 1,000-50,000 5-6 10,000-100,000 6-8 15,000-200,000 8-12 10,000-100,000Color Auto (U)Ordered By: Yaritza Bauer on 04-23-2121Zhnxj (U) Color of Urine by AutoYellowSelect Medical Trihealth Rehabilitation HospitalColor of Urine by AutoOrdered By: Yaritza Bauer on 39-72-8101Yhlnp (U)YellowNormalYellow [facility] HospitalComment on above:Order Comment: Name Collection Type:: Clean-Voided MidstreamPerformed By: #### UHCG, UA #### [facility] [address] [place] [address] USAComplete Blood Count Auto Diffon 67-57-1327Vgie Corpuscular HGB Conc33.7 g/cKRmuhfy25.0-35.0The [facility] Physician GroupComment on above:Performed By: #### LIPASE, PT, CBC, HEPATIC, BMP, PTT #### [facility] [address] [place] [address] USAMonocytes/100 WBC (Bld)22.50 %High0.00-20.00The [facility] Physician GroupComment on above:Result Comment: For adults in ED, MDW > 20.0 may be associated with a higher risk of sepsis during the first 12 hrs of hospital admissionPerformed By: #### LIPASE, PT, CBC, HEPATIC, BMP, PTT #### [place] [address] USANRBC%0.1 /100{WBC}Normal0-0.5[facility] Comment on above:Performed By: #### LIPASE, PT, CBC, HEPATIC, BMP, PTT #### [place] [address] USACreatinine [Mass/volume] in Serum or PlasmaOrdered By: Yaritza Bauer on 32-89-5641Ngvrlkwfaw [Mass/Vol]Creatinine [Mass/volume] in Serum or Plasma0.60-1.20[facility] HospitalCreatinine [Mass/Vol] 0.77 mg/dLNormal0.60-1.20[facility] HospitalComment on above: Performed By: #### FS #### [place] [address] [place] #### GCCHLAMAMP #### [facility] ,Eosinophils Auto (Bld) [#/Vol]Ordered By: Yaritza Bauer on 02-18-2025 Eosinophils (Bld) [#/Vol]Automated eosinophil count0.0-0.45[facility] HospitalEosinophils [#/volume] in Blood by Automated countOrdered By: Yaritza Bauer on 11-06-7055Ksmzfrgltbp (Bld) [#/Vol]0.0 10*3/uLNormal0.0-0.45 [facility] HospitalComment on above:Performed By: #### LIPASE, PT, CBC, HEPATIC, BMP, PTT #### [facility] [address] [place] [address] USAEosinophils/100 WBC Auto (Bld)Ordered By: Yaritza Bauer on 91-85-5162Nzvdxtngocb/100 WBC (Bld)Automated eosinophil %.[facility] HospitalEosinophils/100 leukocytes in Blood by Automated countOrdered By: Yaritza Bauer on 48-76-7700Uxahewdffmg/100 WBC (Bld)0.7 %Normal.[facility] HospitalComment on above:Performed By: #### LIPASE, PT, CBC, HEPATIC, BMP, PTT #### [facility] [address] [place] [id number] USAErythrocyte distribution width Auto (RBC) [Ratio]Ordered By: Yaritza Bauer on 37-13-9525Vpcgoadrtfv distribution width (RBC) [Ratio] Erythrocyte distribution width [Ratio] by Automated count11.9-15.3FPremier Health Miami Valley HospitalErythrocyte distribution width [Ratio] by Automated count Ordered By: Yaritza Bauer on 29-63-6381Pnzaonnyoeb distribution width (RBC) [Ratio]13.5 %Ergifg85.9-15.3FPremier Health Miami Valley HospitalComment on above: Performed By: #### LIPASE, PT, CBC, HEPATIC, BMP, PTT #### [facility] [address] [place] [id number] USAErythrocytes [#/volume] in Blood by Automated countOrdered By: Yaritza Bauer on 90-21-6207EKH (Bld) [#/Vol]4.56 10*6/uLNormal3.60-5.00 [facility] HospitalComment on above:Performed By: #### LIPASE, PT, CBC, HEPATIC, BMP, PTT #### [place] [address] USAFungal Smearon 36-18-8133Njdawz SmearFungus Smear Results No Yeast Like Elements Seen Trichomonas Screen No Trichomonas Seen Trich Reference Reference range = None Seen PERFORMED BY: [facility] [address] [place] [address] PATHOLOGIST [employer] BOX TENDER SHANITA MÁRQUEZ M.D.[facility] Physician GroupComment on above: Performed By: #### FS #### [facility] [address] #### GCCHLAMAMP #### [facility] ,Fungal smearOrdered By: Yaritza Bauer on 30-03-1058Epzosr identified Fungus stain Nom (Unsp spec)Fungal smearSelect Medical Trihealth Rehabilitation HospitalFungus identified Fungus stain Nom (Unsp spec)[facility] HospitalGlobulin Calc (S) [Mass/Vol]Ordered By: Yaritza Bauer on 70-18-4439Ubirkzgt (S) [Mass/Vol]Serum globulin measurement by calculation (mass/volume)[facility] HospitalGlucose [Mass/volume] in Serum or PlasmaOrdered By: Yaritza Bauer on 77-55-7212Iuvouql [Mass/Vol]Glucose [Mass/volume] in Serum or Mdtkuj43-173VaihrhrmySelect Medical Trihealth Rehabilitation HospitalComment on above:ADA recommended reference rangeRandom Glucose Reference Range is dependent on time and content of last meal. Glucose of more than 200 mg/dL in a nonstressed, ambulatory subject supports the diagnosisof Diabetes Mellitus.Glucose [Mass/Vol]87 mg/dL Waycpe45-299DrpllpwkeSelect Medical Trihealth Rehabilitation HospitalComment on above:ADA recommended reference rangeRandom Glucose Reference Range is dependent on time and content of last meal. Glucose of more than 200 mg/dL in a nonstressed, ambulatory subject supports the diagnosisof Diabetes Mellitus.Result Comment: Random Glucose Reference Range is dependent on time and content of last meal. Glucose of more than 200 mg/dL in a nonstressed, ambulatory subject supports the diagnosis of Diabetes Mellitus. ADA recommended reference rangePerformed By: #### FS #### [address] #### GCCHLAMAMP #### [facility] ,Glucose [Mass/volume] in Urine by Test stripOrdered By: Yaritza Bauer on 36-81-8174Xlmlmda Test strip (U) [Mass/Vol]Glucose [Mass/volume] in Urine by Test stripNoMercy Health St. Charles HospitalGlucose Test strip (U) [Mass/Vol]Normal mg/dLNoMercy Health St. Charles HospitalHCG ( test) IA.rapid Ql (U)Ordered By: Yaritza Bauer on 33-09-9296LQN ( test) Ql (U)Urine human chorionic gonadotropin (hCG) detection by immunoassay [facility]'s Medical CenterHCG ( test) Ql (U)PositiveRegional Medical CenterHCG,Quantitativeon 70-56-4978FKD,Quantitative 1673.00 m[iU]/mLNVidant Pungo Hospital Physician GroupComment on above:Result Comment: Approximate Approximate hCG Gestational Age Range (mIU/ml) (weeks) 0.2-1 5-50 1-2 50-500 2-3 100-5,000 3-4 500-10,000 4-5 1,000-50,000 5-6 10,000-100,000 6-8 15,000-200,000 8-12 10,000-100,000 PERFORMED BY: [place] [address] PATHOLOGIST [employer] BOX TENDER SHANITA MÁRQUEZ M.D.Performed By: #### FS #### [address] #### GCCHLAMAMP #### [facility] ,HCG,Urineon 32-18-7738Flhn HCG ( test) Ql (U)PositivePleasant Valley Hospital Physician GroupComment on above:Order Comment: Name Collection Type:: Clean- Voided MidstreamResult Comment: PERFORMED BY: [place] [address] PATHOLOGIST [employer] BOX TENDER SHANITA MÁRQUEZ M.D.Performed By: #### UHCG, UA #### [facility] [address] [place] [address] USAHematocrit Auto (Bld) [Volume fraction]Ordered By: Yaritza Bauer on 16-75-3740Iwvepbgvsj (Bld) [Volume fraction]Hematocrit [Volume Fraction] of Blood by Automated count34.0-46.4FPremier Health Miami Valley HospitalHematocrit [Volume Fraction] of Blood by Automated countOrdered By: Yaritza Bauer on 22-14-3251Pkrsidsfrb (Bld) [Volume fraction]41.8 %Normal 34.0-46.4FPremier Health Miami Valley HospitalComment on above:Performed By: #### LIPASE, PT, CBC, HEPATIC, BMP, PTT #### [facility] [address] [place] [address] USAHemoglobin Test strip Ql (U)Ordered By: Yaritza Bauer on 07-60-9478Rplkcwfuyj Ql (U)Hemoglobin [Presence] in Urine by Test stripNegative [facility] HospitalHemoglobin Ql (U)NegativeNegativeSelect Medical Trihealth Rehabilitation HospitalHemoglobin [Mass/volume] in BloodOrdered By: Yaritza Bauer on 95-41-8540Rkypnfwfzo (Bld) [Mass/Vol]Hemoglobin [Mass/volume] in Blood 11.8-15.4FPremier Health Miami Valley HospitalHemoglobin (Bld) [Mass/Vol]14.1 g/dL Wvfptm76.8-15.4FPremier Health Miami Valley HospitalComment on above:Performed By: #### LIPASE, PT, CBC, HEPATIC, BMP, PTT #### [facility] [address] [place] [id number] USAHepatic Panelon 48-54-9324Zuxjxhr [Mass/Vol]4.3 g/dLNormal 3.5-5.7The [facility] Physician GroupComment on above:Performed By: #### LIPASE, PT, CBC, HEPATIC, BMP, PTT #### [facility] [address] [place] [address] USABilirubin,Indirect0.8 mg/dLNormalThe [facility] Physician GroupComment on above:Performed By: #### LIPASE, PT, CBC, HEPATIC, BMP, PTT #### [facility] [address] [place] [address] USABilirubin.indirect [Mass/Vol]0.30 mg/dLHigh0.03-0.18The [facility] Physician GroupComment on above:Performed By: #### LIPASE, PT, CBC, HEPATIC, BMP, PTT #### [facility] [address] [place] [address] USAINR in Platelet poor plasma by Coagulation assayOrdered By: Yaritza Bauer on 42-67-2073XZF Coag (PPP) [Relative time]INR in Platelet poor plasma by Coagulation assaySelect Medical Trihealth Rehabilitation HospitalComment on above:INR Therapeutic Range A) Pre- and Peroperative OAT started two weeks before surgery. NOT HIP SURGERY: 1.5 - 2.5 HIP SURGERY: 2 - 3B) Primary and secondary prevention of venous THROMBOSIS: 2 - 3C) Active venous thrombosis, pulmonary embolismand prevention of recurrent venous thrombosis: 2 - 3D) Preve ntion of arterial thromboembolismincluding patients with mechanical heart valves: 3 - 4.5INR Coag (PPP) [Relative time]1.1 {INR}NormalSelect Medical Trihealth Rehabilitation HospitalComment on above:INR Therapeutic Range A) Pre- and Peroperative OAT started two weeks before surgery. NOT HIP SURGERY: 1.5 - 2.5 HIP SURGERY: 2 - 3B) Primary and secondary prevention of venous THROMBOSIS: 2 - 3C) Active venous thrombosis, pulmonary embolismand prevention of recurrent venous thrombosis: 2 - 3D) Prevention of arterial thromboembolismincluding patients with mechanical heart valves: 3 - 4.5Result Comment: INR Therapeutic Range A) Pre- and [...] patients with mechanical heart valves: 3 - 4.5Performed By: #### FS #### [facility] [address] [place] [address] [place] #### GCCHLAMAMP #### [facility] ,Ketones Test strip Ql (U)Ordered By: Yaritza Bauer on 73-81-9174Jlpxaej Ql (U)Ketones [Presence] in Urine by Test stripNegClermont County HospitalKetones [Presence] in Urine by Test stripOrdered By: Yaritza Bauer on 47-19-7967Gfmqneo Ql (U)NegativeNormalNegClermont County Hospital Comment on above:Order Comment: Name Collection Type:: Clean-Voided Midstream Performed By: #### UHCG, UA #### [facility] [address] [place] [address] USALaboratory - Microbiology and Antimicrobial susceptibility Ordered By: Yaritza Bauer on 02-18-2025. trachomatis DNA JANET+probe Ql (Unsp spec)NegativeNegClermont County HospitalN. gonorrhoeae DNA JANET+probe Ql (Unsp spec)NegativeNegClermont County HospitalComment on above:Performed at: =[facility] [id number] Director: Barbie Mota MD, Phone: [phone] esterase [Presence] in Urine by Test stripOrdered By: Yaritza Bauer on 02-18-2025 Leukocyte esterase Test strip Ql (U)Leukocyte esterase [Presence] in Urine by Test stripNegClermont County HospitalLeukocyte esterase Test strip Ql (U)NegativeNormalNegClermont County HospitalComment on above: Order Comment: Name Collection Type:: Clean-Voided MidstreamPerformed By: #### UHCG, UA #### [facility] [address] [place] [address] USALeukocytes [#/volume] corrected for nucleated erythrocytes in Blood by Automated counOrdered By: Yaritza Bauer on 53-22-9134UVV corrected for nucl RBC Auto (Bld) [#/Vol]Leukocytes [#/volume] corrected for nucleated erythrocytes in Blood by Automated coun3.8-11.6FPremier Health Miami Valley HospitalWBC corrected for nucl RBC Auto (Bld) [#/Vol]5.2 10*3/uL3.8-11.6 [facility] HospitalLeukocytes [#/volume] in Blood by Automated countOrdered By: Yaritza Bauer on 09-50-1480GQF (Bld) [#/Vol]5.2 10*3/uLNormal 3.8-11.6FPremier Health Miami Valley HospitalComment on above:Performed By: #### LIPASE, PT, CBC, HEPATIC, BMP, PTT #### [place] [address] USALipase [Enzymatic activity/volume] in Serum or Plasma Ordered By: Yaritza Bauer on 42-84-3837Blceuk [Catalytic activity/Vol]Lipase [Enzymatic activity/volume] in Serum or Xgsgqz22.0-82.0[facility] HospitalLipase [Catalytic activity/Vol]22.0 U/TBiqnqb83.0-82.0[facility] HospitalComment on above:Result Comment: PERFORMED BY: [place] [address] PATHOLOGIST [employer] BOX TENDER SHANITA MÁRQUEZ M.D.Performed By: #### FS #### [place] [address] [place] #### GCCHLAMAMP #### [facility] ,Lymphocytes Auto (Bld) [#/Vol]Ordered By: Yaritza Bauer on 02-18-2025 Lymphocytes (Bld) [#/Vol]Lymphocytes [#/volume] in Blood by Automated count 1.00-4.8[facility] HospitalLymphocytes [#/volume] in Blood by Automated countOrdered By: Yaritza Bauer on 66-32-8287Trtqwldhriz (Bld) [#/Vol]1.6 10*3/uLNormal1.00-4.8[facility] HospitalComment on above:Performed By: #### LIPASE, PT, CBC, HEPATIC, BMP, PTT #### [place] [address] USALymphocytes/100 WBC Auto (Bld)Ordered By: Yaritza Bauer on 45-34-0469Zjqwdfwrmqt/100 WBC (Bld)Lymphocytes/100 leukocytes in Blood by Automated count.[facility] HospitalLymphocytes/100 leukocytes in Blood by Automated countOrdered By: Yaritza Bauer on 37-76-3440Xtxtqtrydpu/100 WBC (Bld)30.2 %Normal.[facility] HospitalComment on above: Performed By: #### LIPASE, PT, CBC, HEPATIC, BMP, PTT #### [facility] [address] Auto (RBC) [Entitic mass]Ordered By: Yaritza Bauer on 66-51-9770ATB (RBC) [Entitic mass][facility]CH [Entitic mass] by Automated count 24.7-34.3FMemorial Hospital [Entitic mass] by Automated count Ordered By: Yaritza Bauer on 72-20-0874JWB (RBC) [Entitic mass]30.9 pgNormal 24.7-34.3FPremier Health Miami Valley HospitalComment on above:Performed By: #### LIPASE, PT, CBC, HEPATIC, BMP, PTT #### [facility] [address] Auto (RBC) [Mass/Vol]Ordered By: aYritza Bauer on 28-17-3500ZAVD (RBC) [Mass/Vol]MCHC [Mass/volume] by Automated count32.0-35.0 [facility] (RBC) [Mass/Vol]33.7 g/dL32.0-35.0 [facility] Auto (RBC) [Entitic vol]Ordered By: Yaritza Bauer on 76-18-1969REA (RBC) [Entitic vol]MCV [Entitic volume] by Automated -941BzltpocmsSuburban Community Hospital & [facility] [Entitic volume] by Automated countOrdered By: Yaritza Bauer on 17-81-9961CQI (RBC) [Entitic vol] 91.6 yVGfagmw05-432ZrzzhmapuSelect Medical Trihealth Rehabilitation HospitalComment on above:Performed By: #### LIPASE, PT, CBC, HEPATIC, BMP, PTT #### [facility] [address] [place] [address] USAMonocyte distribution width [Entitic volume] in Blood by AutomatedOrdered By: Yaritza Bauer on 63-05-3491Olaiktdm distribution width Auto (Bld) [Entitic vol]Monocyte distribution width [Entitic volume] in Blood by AutomatedHigh0.00-20.00[facility] HospitalComment on above:For adults in ED, MDW > 20.0 may be associated with a higher risk of sepsis during the first 12 hrs of hospital admissionMonocyte distribution width Auto (Bld) [Entitic vol]22.50 %High0.00-20.00[facility] HospitalComment on above:For adults in ED, MDW > 20.0 may be associated with a higher risk of sepsis during the first 12 hrs of hospital admissionMonocytes Auto (Bld) [#/Vol] Ordered By: Yaritza Bauer on 74-61-3680Mymyhiabb (Bld) [#/Vol]Automated blood monocyte count0.0-0.8[facility] HospitalMonocytes [#/volume] in Blood by Automated countOrdered By: Yaritza Bauer on 45-36-8932Vplbikevt (Bld) [#/Vol]0.3 10*3/uLNormal0.0-0.8[facility] HospitalComment on above:Performed By: #### LIPASE, PT, CBC, HEPATIC, BMP, PTT #### [facility] [address] [place] [id number] USAMonocytes/100 WBC Auto (Bld)Ordered By: Yaritza Bauer on 26-07-6571Gagcugclg/100 WBC (Bld)Automated monocyte %.[facility] HospitalMonocytes/100 leukocytes in Blood by Automated countOrdered By: Yaritza Bauer on 33-54-7112Yvbzidtzb/100 WBC (Bld)6.6 %Normal.[facility] HospitalComment on above:Performed By: #### LIPASE, PT, CBC, HEPATIC, BMP, PTT #### [facility] [address] [place] [id number] USANeutrophils Auto (Bld) [#/Vol]Ordered By: Yaritza Bauer on 35-74-5476Xveblocngkf (Bld) [#/Vol]Neutrophils [#/volume] in Blood by Automated count1.8-7.7FPremier Health Miami Valley HospitalNeutrophils [#/volume] in Blood by Automated countOrdered By: Yaritza Bauer on 08-05-7870Yphjryvuvrv (Bld) [#/Vol]3.2 10*3/uLNormal1.8-7.7FPremier Health Miami Valley HospitalComment on above:Performed By: #### LIPASE, PT, CBC, HEPATIC, BMP, PTT #### [facility] [address] [place] [address] USANeutrophils/100 WBC Auto (Bld)Ordered By: Yaritza Bauer on 78-38-3817Oxotvkslbep/100 WBC (Bld)Automated neutrophil %.[facility] HospitalNeutrophils/100 leukocytes in Blood by Automated countOrdered By: Yaritza Bauer on 38-65-0085Qsjghnuarsd/100 WBC (Bld)60.6 %Normal.[facility] HospitalComment on above:Performed By: #### LIPASE, PT, CBC, HEPATIC, BMP, PTT #### [facility] [address] [place] [id number] USANitrite Test strip Ql (U)Ordered By: Yaritza Bauer on 76-30-0172Rtbpvhm Ql (U)Nitrite [Presence] in Urine by Test stripNegative [facility] HospitalNitrite Ql (U)NegativeNegativeSelect Medical Trihealth Rehabilitation HospitalNo Panel InformationOrdered By: Yaritza Bauer on 88-61-8100Bhfiynroq GFR (CKD-EPI)> 60.0 mL/MinSelect Medical Trihealth Rehabilitation Hospital Pharmacy Creatinine Clearance (Uldx275.28[facility] Nucleated erythrocytes [Presence] in Blood by Automated countOrdered By: Yaritza Bauer on 64-37-3638Pgcfeqojn RBC Auto Ql (Bld)Nucleated erythrocytes [Presence] in Blood by Automated count0-0.5FPremier Health Miami Valley Hospital Nucleated RBC Auto Ql (Bld)0.1 /100{WBC}0-0.5FPremier Health Miami Valley Hospital Partial Thromboplastin Timeon 44-69-7128mCIO Coag (Bld) [Time]29.3 sNormal 25.1-36.5The [facility] Physician GroupComment on above:Result Comment: A hematocrit value greater than 55% may lead to inaccurate results in coagulation testing. Patients having hematocrit values >55% require a special collection tube for coagulation studies. Please contact the laboratory at [phone] for redraw instructions. PERFORMED BY: [place] [address] PATHOLOGIST CREPE BOX TENDER SHANITA MÁRQUEZ M.D.Performed By: #### FS #### [address] #### GCCHLAMAMP #### [facility] ,Platelet mean volume Auto (Bld) [Entitic vol]Ordered By: Yaritza Bauer on 36-62-0702Mxvnjnxj mean volume (Bld) [Entitic vol]Platelet mean volume [Entitic volume] in Blood by Automated count6.3-10.7FPremier Health Miami Valley Hospital Platelet mean volume [Entitic volume] in Blood by Automated countOrdered By: Yaritza Bauer on 34-81-5760Soawjbty mean volume (Bld) [Entitic vol]8.0 fL Normal6.3-10.7FPremier Health Miami Valley HospitalComment on above:Performed By: #### LIPASE, PT, CBC, HEPATIC, BMP, PTT #### [facility] [address] [place] [address] USAPlatelets Auto (Bld) [#/Vol]Ordered By: Yaritza Bauer on 40-77-1643Cnpejwhxl (Bld) [#/Vol]Platelets [#/volume] in Blood by Automated wkoxb156-096Utok[address] [place], [place] [address]Platelets [#/volume] in Blood by Automated countOrdered By: Yaritza Bauer on 01-97-9961Efwrddnoc (Bld) [#/Vol] 181 10*3/aGGzvdis439-771Nkvrdog[address] [place], [place] [address]Comment on above: Performed By: #### LIPASE, PT, CBC, HEPATIC, BMP, PTT #### [address] [address] USAPotassium [Moles/volume] in Serum or PlasmaOrdered By: Yaritza Bauer on 95-49-1685Pvjxtefkb [Moles/Vol]Potassium [Moles/volume] in Serum or Plasma3.5-5.1FPremier Health Miami Valley HospitalPotassium [Moles/Vol]3.6 mmol/LNormal3.5-5.1FPremier Health Miami Valley HospitalComment on above:Performed By: #### FS #### [place] [id number] [place] #### GCCHLAMAMP #### [facility] ,Protein Test strip (U) [Mass/Vol]Ordered By: Yaritza Bauer on 02-18-2025 Protein (U) [Mass/Vol]Protein [Mass/volume] in Urine by Test stripNegative [facility] HospitalProtein (U) [Mass/Vol]NegativeNegativeSelect Medical Trihealth Rehabilitation HospitalProtein [Mass/volume] in Serum or PlasmaOrdered By: Yaritza Bauer on 53-75-1147Vwqjghk [Mass/Vol]Protein [Mass/volume] in Serum or Plasma6.4-8.9[facility] HospitalProtein [Mass/Vol]6.7 g/dLNormal 6.4-8.9[facility] HospitalComment on above:Performed By: #### LIPASE, PT, CBC, HEPATIC, BMP, PTT #### [place] [id number] USAProthrombin time (PT)Ordered By: Yaritza Bauer on 93-61-2564RU Coag (PPP) [Time]Prothrombin time (PT)9.0-12.9[facility] HospitalComment on above:A hematocrit value greater than 55% may lead to inaccurate results in coagulation testing. Patientshaving hematocrit values >55% require a special collection tube for coagulation studies. Please contact the laboratory at [phone] for redraw instructions.PT Coag (PPP) [Time]12.3 s Normal9.0-12.9[facility]health Rehabilitation HospitalComment on above:A hematocrit value greater than 55% may lead to inaccurate results in coagulation testing. Patientshaving hematocrit values >55% require a special collection tube for coagulation studies. Please contact the laboratory at [phone] for redraw instructions.Result Comment: A hematocrit value greater than 55% may lead to inaccurate results in coagulation testing. Patients having hematocrit values >55% require a special collection tube for coagulation studies. Please contact the laboratory at [phone] for redraw instructions.Performed By: #### FS #### [facility] [address] [id number] [place] #### GCCHLAMAMP #### [facility] ,RBC Auto (Bld) [#/Vol]Ordered By: Yaritza Bauer on 99-30-5165CNQ (Bld) [#/Vol]Erythrocytes [#/volume] in Blood by Automated count3.60-5.00[facility] Daytonerum globulin measurement by calculation (mass/volume) Ordered By: Yaritza Bauer on 47-88-3928Rhvahkvk (S) [Mass/Vol]2.4 g/dLNormal [facility] Rehabilitation HospitalComment on above:Performed By: #### LIPASE, PT, CBC, HEPATIC, BMP, PTT #### [facility] [address] [id number] USASerum or plasma albumin/globulin mass ratioOrdered By: Yaritza Bauer on 92-37-0427Pprqtxq/Globulin [Mass ratio]Serum or plasma albumin/globulin mass ratioSelect Medical Trihealth Rehabilitation HospitalAlbumin/Globulin [Mass ratio]1.8 {ratio}NormalSelect Medical Trihealth Rehabilitation HospitalComment on above: Performed By: #### LIPASE, PT, CBC, HEPATIC, BMP, PTT #### [facility] [address] [place] [address] USASerum or plasma anion gap determinationOrdered By: Yaritza Bauer on 65-33-5303Lcdqy gap [Moles/Vol]Serum or plasma anion gap determination6.0-15.0[facility] HospitalAnion gap [Moles/Vol]8.7 mmol/LNormal6.0-15.0[facility] Rehabilitation HospitalComment on above:Performed By: #### FS #### [facility] [address] [place] [address] [place] #### GCCHLAMAMP #### [facility] ,Serum or plasma non-glucuronidated bilirubin measurement (mass/volume)Ordered By: Yaritza Bauer on 27-44-1206Cgmziynqw.indirect [Mass/Vol]Serum or plasma non-glucuronidated bilirubin measurement (mass/volume)[facility] Rehabilitation HospitalBilirubin.indirect [Mass/Vol]0.8 mg/dLSelect Medical Trihealth Rehabilitation Hospital Sodium [Moles/volume] in Serum or PlasmaOrdered By: Yaritza Bauer on 33-80-9936Lgmsbv [Moles/Vol]Sodium [Moles/volume] in Serum or Xyrxtf848-437 [facility] Daytonodium [Moles/Vol]137 mmol/UDypxvj195-157 [facility] Rehabilitation HospitalComment on above:Performed By: #### FS #### [facility] [address] [place] [address] [place] #### GCCHLAMAMP #### [facility] ,Specific gravity Test strip (U) [Rel density]Ordered By: Yaritza Bauer on 39-96-0899Usbeikkq gravity (U) [Rel density]Specific gravity of Urine by Test strip1.001-1.030[facility] Hospital Daytonpecific gravity (U) [Rel density]1.0211.001-1.030[facility] HospitalTrichomonas vaginalis detection by wet preparationOrdered By: Yaritza Bauer on 02-18-2025T. vaginalis Wet prep Ql (Unsp spec)Trichomonas vaginalis detection by wet preparationSelect Medical Trihealth Rehabilitation HospitalT. vaginalis Wet prep Ql (Unsp spec) [facility] Rehabilitation HospitalUS OB transvaginalon 31-74-5945KX OB transvaginalOHIOHEALTH [facility] [address] [id number] Ultrasound Report Signed Patient: Charis Allen MR#: [id number] : 2000 Acct:[id number] Age/Sex: 24 / F ADM Date: 02/18/25 Loc: ER Room: Type: [facility] ER Attending Dr: Ordering Provider: Yaritza Bauer APRN Date of Service: 02/18/25 US/US OB <= 14 weeks fetus: Abdominal Pain ([id number]) US/US OB transvaginal: R/O ECTOPIC Copies to: [...] Camacho M.D. 02/18/2025 8:45 PM Dictation Location[facility] Tech: Roselia Hammad Transcribed By: REMINGTON 02/18/252044 Dictated By: Michael Camacho DO 02/18/252034 Signed By: 02/18/252044NoECU Health Edgecombe Hospital Physician GroupUrea nitrogen [Mass/volume] in Serum or PlasmaOrdered By: Yaritza Bauer on 20-35-1253Wqrd nitrogen [Mass/Vol] Urea nitrogen [Mass/volume] in Serum or Plasma05-02[facility] Rehabilitation HospitalUrea nitrogen [Mass/Vol]13 mg/dLNormal05-02[facility] Rehabilitation HospitalComment on above:Performed By: #### FS #### [facility] [address] [place] [address] #### GCCHLAMAMP #### [facility] ,Urinalysison 69-93-3083Cgqmjzavh,UrineNegativeNormalNegativeHca Florida Jfk Hospital Physician GroupComment on above:Order Comment: Name Collection Type:: Clean- Voided MidstreamPerformed By: #### UHCG, UA #### [place] [address] USAGlucose Ql (U)NormalNormalNormHCA Florida Plantation Emergency Physician GroupComment on above:Order Comment: Name Collection Type:: Clean-Voided MidstreamPerformed By: #### UHCG, UA #### [place] [address] USANitrite,UrineNegativeNormalNegativeThe [facility]ingham Physician GroupComment on above:Order Comment: Name Collection Type:: Clean-Voided MidstreamPerformed By: #### UHCG, UA #### [place] [address] USAOccult Blood,UrineNegativeNormalNegativeHca Florida Jfk Hospital Physician GroupComment on above:Order Comment: Name Collection Type:: Clean- Voided MidstreamPerformed By: #### UHCG, UA #### [place] [address] USAProtein,UrineNegativeNormalNegativeHca Florida Jfk Hospital Physician GroupComment on above:Order Comment: Name Collection Type:: Clean-Voided MidstreamPerformed By: #### UHCG, UA #### [place] [address] USASpecificy Norton,Urine1.261Lmdbnl0.001-1.030The [facility] Physician GroupComment on above:Order Comment: Name Collection Type:: Clean- Voided MidstreamPerformed By: #### UHCG, UA #### [place] [id number] USAUrobilinogen,UrineNormalNormalNormHCA Florida Plantation Emergency Physician GroupComment on above:Order Comment: Name Collection Type:: Clean- Voided MidstreamPerformed By: #### UHCG, UA #### [place] [address] USAUrobilinogen Test strip (U) [Mass/Vol]Ordered By: Yaritza Bauer on 40-59-5659Gcxjsqnqepox (U) [Mass/Vol]Urobilinogen [Mass/volume] in Urine by Test stripNoMercy Health St. Charles HospitalUrobilinogen (U) [Mass/Vol]Normal mg/dLNoMercy Health St. Charles HospitalWBC Auto (Bld) [#/Vol]Ordered By: Yaritza Bauer on 66-79-9414IYM (Bld) [#/Vol]Leukocytes [#/volume] in Blood by Automated count3.8-11.6FPremier Health Miami Valley Hospital aPTT in Platelet poor plasma by Coagulation assayOrdered By: Yaritza Bauer on 21-67-7588dAGO Coag (PPP) [Time]Activated partial thromboplastin time (aPTT) in platelet poor plasma by coagulation a25.1-36.5FPremier Health Miami Valley Hospital Comment on above:A hematocrit value greater than 55% may lead to inaccurate results in coagulation testing. Patientshaving hematocrit values >55% require a special collection tube for coagulation studies. Please contact the laboratory at [phone] for redraw instructions.aPTT Coag (PPP) [Time]29.3 s25.1-36.5 [facility] Rehabilitation HospitalComment on above:A hematocrit value greater than 55% may lead to inaccurate results in coagulation testing. Patientshaving hematocrit values >55% require a special collection tube for coagulation studies. Please contact the laboratory at [phone] for redraw instructions. pH Test strip (U)Ordered By: Yaritza Bauer on 03-53-1255qM (U)pH of Urine by Test strip5.0-9.0[facility] Rehabilitation HospitalpH of Urine by Test strip Ordered By: Yaritza Bourgeoiswajuan jose on 66-61-6395cG (U)6.5 [pH]Normal5.0-9.0[facility] Rehabilitation HospitalComment on above:Order Comment: Name Collection Type:: Clean-Voided MidstreamPerformed By: #### UHCG, UA #### [facility] [address] [place] [address] USACBC with Auto Differentialon 64-19-0195Jrlwmbrzz (Bld) [#/Vol]0.03 10*3/uLBon Secours [facility] Rehabilitation HospitalBasophils/100 WBC (Bld)1 %0 - 2 %Bon [facility] HospitalEosinophils (Bld) [#/Vol]0.03 10*3/uLBon Secours [facility] HospitalEosinophils/100 WBC (Bld)1 %0 - 5 %[facility] Doctors' HospitalErythrocyte distribution width (RBC) [Ratio]12.1 %12.1 - 15.2 %[facility] Hematocrit (Bld) [Volume fraction]40.6 %36.0 - 46.0 %[facility] Hemoglobin (Bld) [Mass/Vol]13.9 g/dL12.0 - 16.0 g/dLBon SecSheltering Arms Hospital Immature granulocytes (Bld) [#/Vol]0 10*3/uLBon Secours [facility] HospitalImmature granulocytes/100 WBC (Bld)0 %0 - 5 %[facility]' HospitalInterpretation and review of laboratory resultsAbnormalBon [facility] HospitalLymphocytes/100 WBC (Bld)30 %15 - 40 %[facility] HospitalLymphocytes/100 WBC (Bld)1.94 %[facility] HospitalH (RBC) [Entitic mass]31.3 pg26.0 - 34.[address] [facility] Warren HospitalHC (RBC) [Mass/Vol]34.2 g/dL31.0 - 37.0 g/dLBon SecFairfield Medical CenterV (RBC) [Entitic vol]91.4 fL80.0 - 100.0 fLBon [facility] Monocytes/100 WBC (Bld)9 %High4 - 8 %[facility] HospitalMonocytes/100 WBC (Bld)0.59 %[facility] HospitalNeutrophils/100 WBC (Bld)59 %47 - 75 %[facility] Doctors' HospitalPlatelet mean volume (Bld) [Entitic vol]9.8 fL6.0 - 12.0 fL Bon SecOchsner Medical Center HealthPlatelets (Bld) [#/Vol]202 10*3/uLBon SecSheltering Arms HospitalRBC (Bld) [#/Vol]4.44 10*6/uL4.00 - 5.20 m/uLBon [facility] Segmented neutrophils/100 WBC (Bld)3.92 %Bon [facility] HospitalWBC other (Bld) [#/Vol]6.5Bon [facility] HospitalBon [facility] Anderson HospitalCBC with Diffon 60-97-6334Jto. Basophil0.03 k/uLNormal0.00-0.20[facility], Edwin ShawComment on above:Performed By: #### CDP, HCG, CP #### [facility] [address] [place] [address] Line Repairer Tower: Gaye Aguilera.Imm.Granulocyte0.00 k/uLNormal0.00-0.30[facility], Edwin ShawComment on above:Performed By: #### CDP, HCG, CP #### [facility] [address] [place] [address] Line Repairer Tower: Gaye Aguilera.Neutrophil (Seg)3.92 k/uLNormal2.5-7.0[facility], Edwin ShawComment on above:Performed By: #### CDP, HCG, CP #### [facility] [address] [place] [address] Line Repairer Tower: Caden Brown MDBasophils/100 WBC (Bld)1 %Normal0-2MMercy Health Allen HospitalComment on above:Performed By: #### CDP, HCG, CP #### [facility] [address] [place] [address] Line Repairer Tower: GABRIEL Aguileraosinophils (Bld) [#/Vol]0.03 10*3/uLNormal 0.00-0.40[facility], Edwin ShawComment on above:Performed By: #### CDP, HCG, CP #### [facility] [address] [place] [address] Line Repairer Tower: Caden Sturtz, MDEosinophils/100 WBC (Bld)1 %Normal0-5[facility], Edwin ShawComment on above:Performed By: #### CDP, HCG, CP #### [facility] [address] [place] [address] Line Repairer Tower: Caden Brown MDErythrocyte distribution width (RBC) [Ratio]12.1 % Mdwnuf84.1-15.2MMercy Health Allen HospitalComment on above:Performed By: #### CDP, HCG, CP #### [facility] [address] [place] [address] Line Repairer Tower: Caden Brown MDHematocrit (Bld) [Volume fraction]40.6 %Normal 36.0-46.0[facility] on above:Performed By: #### CDP, HCG, CP #### [facility] [address] [place] [address] Line Repairer Tower: Caden Brown MDHemoglobin (Bld) [Mass/Vol]13.9 g/dLNormal 12.0-16.0[facility], [facility] ShawComformerly [facility] on above:Performed By: #### CDP, HCG, CP #### [facility] [address] [id number] Line Repairer Tower: Caden Brown MDImmature granulocytes/100 WBC (Bld)0 %Normal0-5 [facility], Edwin ShawComment on above:Performed By: #### CDP, HCG, CP #### [facility] [address] [place] [address] Line Repairer Tower: Caden Brown MDLymphocytes (Bld) [#/Vol]1.94 10*3/uLNormal 1.00-4.80[facility] on above:Performed By: #### CDP, HCG, CP #### [facility] [address] [place] [address] Line Repairer Tower: Tyrese Aguileramphocytes/100 WBC (Bld)30 %Nfatmm50-32RdfawSelect Medical [facility] Clinic Rehabilitation Hospital, Edwin ShawComment on above:Performed By: #### CDP, HCG, CP #### [facility] [address] [place], [place] [id number] Line Repairer Tower: SANDRA AguileraCH (RBC) [Entitic mass]31.3 htEfstmq68.0-34.0 [facility], Edwin ShawComformerly [facility] on above:Performed By: #### CDP, HCG, CP #### [facility] [address] [place] [address] Line Repairer Tower: CARLOS AguileraC (RBC) [Mass/Vol]34.2 g/xAQphwyg93.0-37.0[facility], Edwin ShawComment on above:Performed By: #### CDP, HCG, CP #### [facility] [address] [id number] Line Repairer Tower: SANDRA AguileraCV (RBC) [Entitic vol]91.4 uHBsasbb32.0-100.0 [facility], Edwin ShawComformerly [facility] on above:Performed By: #### CDP, HCG, CP #### [facility] [address] [id number] Line Repairer Tower: SANDRA Aguileraonocytes (Bld) [#/Vol]0.59 10*3/uLNormal0.00-1.00 [facility] on above:Performed By: #### CDP, HCG, CP #### [facility] [address] [place], [place] [id number] Line Repairer Tower: SANDRA Aguileraonocytes/100 WBC (Bld)9 %High4-8[facility], Edwin ShawComment on above:Performed By: #### CDP, HCG, CP #### [facility] [address] [id number] Line Repairer Tower: Migue Aguileraophil (Seg)59 %Zxjeqk87-80UgvxfSelect Medical [facility] Clinic Rehabilitation Hospital, Edwin ShawComment on above:Performed By: #### CDP, HCG, CP #### [facility] [address] [place], [place] [id number] (517) Line Repairer Tower: Darrel Aguilera mean volume (Bld) [Entitic vol]9.8 fL Normal6.0-12.0[facility], Edwin ShawComformerly [facility] on above:Performed By: #### CDP, HCG, CP #### [facility] [address] [place] [address] Line Repairer Tower: Althea Aguilera (Bld) [#/Vol]202 10*3/fVDcijjc465-740 [facility], Edwin ShawComment on above:Performed By: #### TACHO, HCG, CP #### [facility] [address] [place], [place] [id number] Line Repairer Tower: ROGERIO Aguilera (Bld) [#/Vol]4.44 10*6/uLNormal4.00-5.20[facility], Edwin ShawComment on above:Performed By: #### TACHO, HCG, CP #### [facility] [address] [place] [address] Line Repairer Tower: KEVIN Aguilera (Bld) [#/Vol]6.5 10*3/uLNormal3.5-11.0[facility], Edwin ShawComformerly [facility] on above:Performed By: #### CDP, HCG, CP #### [facility] [address] [place], [place] [id number] Line Repairer Tower: Finn Aguilera 83-52-9171Jcketnq [Mass/Vol]4.5 g/dL3.5 - 5.2 g/dLBon [facility] HospitalAlbumin/Globulin [Mass ratio]1.9 {ratio}1.0 - 2.5[facility] Mercy HealthALP [Catalytic activity/Vol]78 U/L35 - 104 U/LBon Secours [facility] HealthALT [Catalytic activity/Vol]22 U/L5 - 33 U/LBon [facility] HospitalAnion gap [Moles/Vol]10 mmol/L9 - 17 mmol/LBon Secours [facility] AST [Catalytic activity/Vol]26 U/LNINF - 32 U/LBon [facility]ours [facility] HealthBilirubin [Mass/Vol]1 mg/dL0.3 - 1.2 mg/dLBon Secours [facility] HealthCalcium [Mass/Vol]9.2 mg/dL8.6 - 10.4 mg/dLBon Secours [facility] HealthChloride [Moles/Vol]102 mmol/L98 - 107 mmol/LBon [facility]ours [facility] HealthCO2 [Moles/Vol]26 mmol/L20 - 31 mmol/LBon [facility]ours [facility] HealthCreatinine [Mass/Vol]0.8 mg/dL0.5 - 0.9 mg/dLBon Secours [facility] HealthEst, Glom Filt Rate- PINFBon [facility] HospitalComment on above: These results are not intended [...] therapy that affects renal tubular secretion. Glucose [Mass/Vol]90 mg/dL70 - 99 mg/dLBon [facility] HospitalInterpretation and review of laboratory resultsAbnormalBon [facility] HospitalPotassium [Moles/Vol]3.5 mmol/LLow3.7 - 5.3 mmol/LBon SecOchsner Medical Center HealthProtein [Mass/Vol]6.9 g/dL6.4 - 8.3 g/dLBon SecSheltering Arms HospitalSodium [Moles/Vol]138 mmol/L135 - 144 mmol/LBon SecOchsner Medical Center HealthUrea nitrogen [Mass/Vol]9 mg/dL6 - 20 mg/dLBon Secours [facility] HealthBon [facility] Anderson HospitalComp Metabolic Profon 95-86-7225Ntegouz [Mass/Vol]4.5 g/dLNormal3.5-5.2MMercy Health Allen HospitalComment on above:Performed By: #### CDP, HCG, CP #### [facility] [address] [id number] Line Repairer Tower: Caden Brown MDAlbumin/Glob Ratio1.4Qnglwf9.0-2.5[facility], Edwin ShawComformerly [facility] on above:Performed By: #### CDP, HCG, CP #### [facility] [address] [phone] Line Repairer Tower: Kash Aguileraline Phos78 U/GOxpavx50-645WnklbSelect Medical [facility] Rehabilitation Hospital, Edwin ShawComformerly [facility] on above:Performed By: #### CDP, HCG, CP #### [facility] [address] [place] [address] Line Repairer Tower: Caden Brown MDALT [Catalytic activity/Vol]22 U/LNormal5-33[facility] on above:Performed By: #### CDP, HCG, CP #### [facility] [address] [phone] Line Repairer Tower: Chad Aguilera gap [Moles/Vol]10 mmol/LNormal9-17[facility], Edwin ShawComformerly [facility] on above:Performed By: #### CDP, HCG, CP #### [facility] [address] [phone] Line Repairer Tower: Caden Brown MDAST [Catalytic activity/Vol]26 U/LNormal<32[facility], Edwin ShawComformerly [facility] on above:Performed By: #### CDP, HCG, CP #### [facility] [address] [place] [address] Line Repairer Tower: Caden Brown MDBilirubin [Mass/Vol]1.0 mg/dLNormal0.3-1.2MMercy Health Allen HospitalComment on above:Performed By: #### CDP, HCG, CP #### [facility] [address] [phone] Line Repairer Tower: MARCO Aguileraalcium [Mass/Vol]9.2 mg/dLNormal8.6-10.4Trinity Health Systemment on above:Performed By: #### CDP, HCG, CP #### [facility] [address] [place] [address] Line Repairer Tower: MARCO Aguilerahloride [Moles/Vol]102 mmol/OEdciff25-825JqaamSelect Medical [facility] Clinic Rehabilitation Hospital, Edwin ShawComment on above:Performed By: #### CDP, HCG, CP #### [facility] [address] [place] [address] Line Repairer Tower: MARCO AguileraO2 [Moles/Vol]26 mmol/NPpyrat59-02KqiphSelect Medical [facility] Rehabilitation Hospital, Edwin ShawComment on above:Performed By: #### CDP, HCG, CP #### [facility] [address] [place] [address] Line Repairer Tower: MARCO Aguilerareatinine [Mass/Vol]0.8 mg/dLNormal0.5-0.9[facility], [facility] ShawComformerly [facility] on above:Performed By: #### CDP, HCG, CP #### [facility] [address] [place] [address] Line Repairer Tower: Caden Brown MDGFR/1.73 sq M.predicted among non-blacks MDRD (S/P/Bld) [Vol rate/Area]mL/min/{1.73_m2}Normal>60[facility], Edwin ShawComment on above:Result Comment: These results are not intended for [...] or following therapy that affects renal tubular secretion.Performed By: #### CDP, HCG, CP #### [facility] [address] [place] [address] Line Repairer Tower: Caden Brown MDGlucose [Mass/Vol]90 mg/eZOmtyfm69-73ZsruqMercy Health Allen HospitalComment on above:Performed By: #### CDP, HCG, CP #### [facility] [address] [place] [address] Line Repairer Tower: MIR Aguileraotassium [Moles/Vol]3.5 mmol/LLow3.7-5.3MMercy Health Allen HospitalComment on above:Performed By: #### CDP, HCG, CP #### [facility] [address] [place] [address] Line Repairer Tower: Caden Brown MDProtein [Mass/Vol]6.9 g/dLNormal6.4-8.3MMercy Health Allen HospitalComment on above:Performed By: #### TACHO, HCG, CP #### [facility] [address] [place] [address] Line Repairer Tower: JOSUÉ Aguileraodium [Moles/Vol]138 mmol/LEfrmsc948-281AbdxfSelect Medical [facility] Clinic Rehabilitation Hospital, Edwin ShawComment on above:Performed By: #### TACHO, HCG, CP #### [facility] [address] [place] [address] Line Repairer Tower: Caden Brown MDUrea nitrogen [Mass/Vol]9 mg/dLNormal6-20[facility], Edwin ShawComment on above:Performed By: #### TACHO, HCG, CP #### [facility] [address] [place] [address] Line Repairer Tower: Caden Brown MDGlucose, Whole Bloodon 21-48-2267Pmrlypf [Mass/Vol]108 mg/tAAjhe71 - 99 mg/dLBon [facility] HospitalInterpretation and review of laboratory resultsAbnormalBon [facility] HospitalBon [facility] HospitalGlucose,Whole Bloodon 61-44-3031Qkvalmw [Mass/Vol]108 mg/uVYitn84-93Kgnjm [facility] Community HospitalHCG Qualitative, Serumon 21-95-9160NCU ( test) Ql NegativeNEGATIVEBon [facility] on above:Specimens with hCG levels near the threshold of the test (25 mIU/mL) may give a negative or indeterminate result. In such cases, another test should be performed with a new specimen in 48-72 hours. If early is suspected clinically in this setting, correlation with quantitative serum b-hCG level is suggested. [facility] has confirmed the use of plasma for this test. This has not been cleared or approved by the U.S. Food and Drug Administration. The FDA has determined that such clearance is not necessary. Bon [facility] HospitalHCG Screen, Bloodon 96-64-2515EZZ Screen, BloodNegative NormalNEGMercy Field Memorial Community HospitalComformerly [facility] on above:Result Comment: Specimens with hCG levels near the threshold of the test (25 mIU/mL) may give a negative or indeterminate result. In such cases, another test should be performed with a new specimen in 48-72 hours. If early is suspected clinically in this setting, correlation with quantitative serum b-hCG level is suggested. [facility] has confirmed the use of plasma for this test. This has not been cleared or approved by the U.S. Food and Drug Administration. The FDA has determined that such clearance is not necessary.Performed By: #### CDP, HCG, CP #### [facility] [address] [place] [address] Line Repairer Tower: GARRETT Aguilera.beta subunit IA 3rd IS Qnon 52-11-9229GWI.beta subunit Qn384 m[IU]/mLNormalProGeorgetown Behavioral Hospitalca [facility] CenterComformerly [facility] on above:Result Comment: NEW REFERENCE RANGE WEEKS (SINCE LMP) [...] trophoblastic or nontrophoblastic neoplasms. Performed By: #### [id number] #### [facility] ([id number]) [address] [place] [address]ELDEPPAAKQgf 06-79-6337Rcchjtenm Ql (U)NegativeNormalNEG ProMcrossbridge behavioral healtha [facility] Global Medical CenterComment on above:Performed By: #### UA #### [facility] ([id number]) [address] [place] [address]KQAQI/HGBLargeAbnormalNEGProThe Hospitals Of Providence Transmountain CampusComment on above:Performed By: #### UA #### [facility] ([id number]) [address] [place] [address] 10777Ixvah (U)YELLOWNormalYELLOWMercer County Community HospitalComment on above:Performed By: #### UA #### [facility] ([id number]) [address] [place] [address] 18484Zsavnpu Ql (U)NegativeNormalNEGMercer County Community Hospital Comment on above:Performed By: #### UA #### [facility] ([id number]) [address] [place] [address] 76994Yasafxc Ql (U)NegativeNormalNEGMercer County Community Hospital Comment on above:Performed By: #### UA #### [facility] ([id number]) [address] [place] [address] 82943Zbbwiddft esterase Test strip Ql (U)NegativeNormalNEGProThe Hospitals Of Providence Transmountain CampusComment on above:Performed By: #### UA #### [facility] ([id number]) [address] [place] [address] 82773Sawtinz Ql (U)NegativeNormalNEGMercer County Community Hospital Comment on above:Performed By: #### UA #### [facility] ([id number]) [address] [place] [address] 16980bH (U)7.0 [pH]Normal5.0-8.5PPremier Health Miami Valley Hospital NorthComment on above:Performed By: #### UA #### [facility] ([id number]) [address] [place] [address] 59510Axybaoe Ql (U)NegativeNormalNEGMercer County Community Hospital Comment on above:Performed By: #### UA #### [facility] ([id number]) [address] [place] [address] 85896M.B.CELLS5 /hpfNormal0-5PPremier Health Miami Valley Hospital NorthComment on above:Performed By: #### UA #### [facility] ([id number]) [address] [place] [address] 73589Kimylmgh gravity (U) [Rel density]1.798Ocdutr8.003-1.035 [facility] Global Medical CenterComment on above:Performed By: #### UA #### [facility] ([id number]) [address] [place] [address] 00716VXLJHQMV EPITHELIUM8 /hpfHigh0-5PPremier Health Miami Valley Hospital North Comment on above:Performed By: #### UA #### [facility] ([id number]) [address] [place] [address] 06384ZXZQENAISEEF EPITH1 /hdbOfnp7CinWscwimThe Hospitals Of Providence Transmountain CampusComment on above:Performed By: #### UA #### [facility] ([id number]) [address] [place] [address] 00209XJEKNCPPXJZMQKZgqvxkZIVLIQmoWutuyv Orange County Global Medical CenterComment on above:Performed By: #### UA #### [facility] ([id number]) [address] [place] [address] 32807Ubjpvszrndha Qn (U)0.2 {Ludwig'U}/dLNormal<1.1PPremier Health Miami Valley Hospital NorthComment on above:Performed By: #### UA #### [facility] ([id number]) [address] [place] [address] 19034H.B.CELLS0 /hpfNormal0-5PPremier Health Miami Valley Hospital NorthComment on above:Performed By: #### UA #### [facility] ([id number]) [address] [place] [address] 28313TSM with Auto Differentialon [id number] (Bld) [#/Vol] 0.03 10*3/uLBon Secours Mercy HealthBasophils/100 WBC (Bld)0 %0 - 2 %[facility] HealthEosinophils (Bld) [#/Vol]0.04 10*3/uLBon Secours Mercy Health Eosinophils/100 WBC (Bld)1 %0 - 5 %[facility] HealthErythrocyte distribution width (RBC) [Ratio]11.8 %Low12.1 - 15.2 %[facility] Hematocrit (Bld) [Volume fraction]38.2 %36.0 - 46.0 %[facility] Hemoglobin (Bld) [Mass/Vol]13.0 g/dL12.0 - 16.0 g/dLBon Secours [facility]cy Health Immature granulocytes (Bld) [#/Vol]0.01 10*3/uLBon Secours Mercy HealthImmature granulocytes/100 WBC (Bld)0 %0 - 5 %[facility] HealthInterpretation and review of laboratory resultsAbnormalBon Secours Mercy HealthLymphocytes/100 WBC (Bld)24 %15 - 40 %[facility] HealthLymphocytes/100 WBC (Bld)1.98 %[facility] HospitalH (RBC) [Entitic mass]30.9 pg26.0 - 34.0 pgBon Secours Mary Immaculate HospitalHC (RBC) [Mass/Vol]34.0 g/dL31.0 - 37.0 g/dLBon [facility] Warren HospitalV (RBC) [Entitic vol]90.7 fL80.0 - 100.0 fLRetreat Doctors' Hospital Monocytes/100 WBC (Bld)10 %High4 - 8 %[facility] HospitalMonocytes/100 WBC (Bld)0.80 %[facility] Doctors' HospitalNeutrophils/100 WBC (Bld)65 %47 - 75 %[facility]' HospitalPlatelet mean volume (Bld) [Entitic vol]9.3 fL6.0 - 12.0 fL [facility] HospitalPlatelets (Bld) [#/Vol]238 10*3/uLRetreat Doctors' HospitalRBC (Bld) [#/Vol]4.21 10*6/uL4.00 - 5.20 m/uLRetreat Doctors' Hospital Segmented neutrophils/100 WBC (Bld)5.44 %[facility] Doctors' HospitalWBC other (Bld) [#/Vol]8.3Bon [facility] Health CenterCBC with Diffon [id number]. Basophil0.03 k/uLNormal0.00-0.20[facility], Edwin ShawComment on above:Performed By: #### CDP, CP #### [facility] [address] [place] [address] Line Repairer Tower: Gaye Aguilera.Imm.Granulocyte0.01 k/uLNormal0.00-0.30[facility], Edwin ShawComment on above:Performed By: #### CDP, CP #### [facility] [address] [place] [id number] Line Repairer Tower: Gaye Aguilera.Neutrophil (Seg)5.44 k/uLNormal2.5-7.0Mercy Chandu HospitalComment on above:Performed By: #### CDP, CP #### [facility] [address] [place] [phone] Line Repairer Tower: Caden Brown MDBasophils/100 WBC (Bld)0 %Normal0-2Mer[facility] La Fayette HospitalComment on above:Performed By: #### CDP, CP #### [facility] [address] [place] [address] Line Repairer Tower: GABRIEL Aguileraosinophils (Bld) [#/Vol]0.04 10*3/uLNormal 0.00-0.40[facility] ShawComment on above:Performed By: #### CDP, CP #### [facility] [address] [place] [address] Line Repairer Tower: GABRIEL Aguileraosinophils/100 WBC (Bld)1 %Normal0-5[facility], [facility] ShawComment on above:Performed By: #### CDP, CP #### [facility] [address] [place] [phone] Line Repairer Tower: Caden Brown MDErythrocyte distribution width (RBC) [Ratio]11.8 % Low12.1-15.2MMercy Health Allen HospitalComformerly [facility] on above:Performed By: #### CDP, CP #### [facility] [address] [place] [address] Line Repairer Tower: Caden Brown MDHematocrit (Bld) [Volume fraction]38.2 %Normal 36.0-46.0[facility], Edwin ShawComment on above:Performed By: #### CDP, CP #### [facility] [address] [place] [phone] Line Repairer Tower: Caden Brown MDHemoglobin (Bld) [Mass/Vol]13.0 g/dLNormal 12.0-16.0[facility] ShawComment on above:Performed By: #### CDP, CP #### [facility] [address] [place] [address] Line Repairer Tower: Mani Aguilerature granulocytes/100 WBC (Bld)0 %Normal0-5 [facility] on above:Performed By: #### CDP, CP #### [facility] [address] [place] [phone] Line Repairer Tower: Tyrese Aguileramphocytes (Bld) [#/Vol]1.98 10*3/uLNormal 1.00-4.80[facility] ShawComformerly [facility] on above:Performed By: #### CDP, CP #### [facility] [address] [place] [phone] Line Repairer Tower: Elpidio Aguilerahocytes/100 WBC (Bld)24 %Ynijdy00-94RzcaqMercy Health West Hospital on above:Performed By: #### CDP, CP #### [facility] [address] [place] [phone] Line Repairer Tower: CARLOS Aguilera (RBC) [Entitic mass]30.9 qkOwugxz87.0-34.0 [facility] on above:Performed By: #### CDP, CP #### [facility] [address] [phone] Line Repairer Tower: CARLOS AguileraC (RBC) [Mass/Vol]34.0 g/wLNuqmzw45.0-37.0[facility] ShawComformerly [facility] on above:Performed By: #### CDP, CP #### [facility] [address] [place] [address] Line Repairer Tower: SANDRA AguileraCV (RBC) [Entitic vol]90.7 bLKranpm32.0-100.0 [facility] ShawComformerly [facility] on above:Performed By: #### CDP, CP #### [facility] [address] [place] [address] Line Repairer Tower: SANDRA Aguileraonocytes (Bld) [#/Vol]0.80 10*3/uLNormal0.00-1.00 [facility] ShawComment on above:Performed By: #### CDP, CP #### [facility] [address] [place] [address] Line Repairer Tower: SANDRA Aguileraonocytes/100 WBC (Bld)10 %High4-8[facility], Edwin ShawComment on above:Performed By: #### CDP, CP #### [facility] [address] [place] [address] Line Repairer Tower: Caden Brown MDNeutrophil (Seg)65 %Kxyiwv32-94OhldjSelect Medical [facility] Clinic Rehabilitation Hospital, Edwin ShawComment on above:Performed By: #### CDP, CP #### [facility] [address] [place], [place] [phone] (257) Line Repairer Tower: Violeta Aguilerateevy mean volume (Bld) [Entitic vol]9.3 fL Normal6.0-12.0[facility], Edwin ShawComment on above:Performed By: #### CDP, CP #### [facility] [address] [place] [address] Line Repairer Tower: MIR Aguileralatelets (Bld) [#/Vol]238 10*3/zFGofmck617-234 [facility] ShawComment on above:Performed By: #### CDP, CP #### [facility] [address] [place] [address] Line Repairer Tower: Caden Brown MDRBC (Bld) [#/Vol]4.21 10*6/uLNormal4.00-5.20[facility] ShawComment on above:Performed By: #### CDP, CP #### [facility] [address] [place], [place] [phone] Line Repairer Tower: NIRALI Aguilera (Bld) [#/Vol]8.3 10*3/uLNormal3.5-11.0[facility] on above:Performed By: #### CDP, CP #### [facility] [address] [place], [place] [phone] Line Repairer Tower: MARCO Aguileraalta view hospital Metabolic Profon [id number] [Mass/Vol] 4.2 g/dLNormal3.5-5.2MMercy Health Allen HospitalComment on above:Performed By: #### CDP, CP #### [facility] [address] [place] [address] Line Repairer Tower: Caden Brown MDAlbumin/Glob Ratio1.5Jeegya4.0-2.5[facility], Edwin ShawComment on above:Performed By: #### CDP, CP #### [facility] [address] [place], [place] 8446390 Line Repairer Tower: Judy Aguilera Phos61 U/JPrqetj34-753MfounSelect Medical [facility] Rehabilitation Hospital, Edwin ShawComformerly [facility] on above:Performed By: #### CDP, CP #### [facility] [address] [place], [place] [phone] Line Repairer Tower: Caden Brown MDALT [Catalytic activity/Vol]27 U/LNormal5-33[facility] on above:Performed By: #### CDP, CP #### [facility] [address] [place], [place] [phone] Line Repairer Tower: Chad Aguilera gap [Moles/Vol]10 mmol/LNormal9-17[facility] ShawComformerly [facility] on above:Performed By: #### CDP, CP #### [facility] [address] [place] [address] Line Repairer Tower: Caden Brown MDAST [Catalytic activity/Vol]24 U/LNormal<32[facility], Edwin ShawComment on above:Performed By: #### CDP, CP #### [facility] [address] [place] [address] Line Repairer Tower: Caden Brown MDBilirubin [Mass/Vol]1.2 mg/dLNormal0.3-1.2MMercy Health Allen HospitalComment on above:Performed By: #### CDP, CP #### [facility] [address] [place] [address] Line Repairer Tower: MARCO Aguileraalcium [Mass/Vol]9.1 mg/dLNormal8.6-10.4[facility], [facility] ShawComment on above:Performed By: #### CDP, CP #### [facility] [address] [place] [address] Line Repairer Tower: MARCO Aguilerahloride [Moles/Vol]105 mmol/FBultqd41-506QjvzgSelect Medical [facility] Rehabilitation Hospital, Edwin ShawComment on above:Performed By: #### CDP, CP #### [facility] [address] [place] [address] Line Repairer Tower: Caden Brown MDCO2 [Moles/Vol]24 mmol/XKxlwdc33-39ClgboSelect Medical [facility] Clinic Rehabilitation Hospital, Edwin ShawComment on above:Performed By: #### CDP, CP #### [facility] [address] [place] [phone] Line Repairer Tower: MARCO Aguilerareatinine [Mass/Vol]0.7 mg/dLNormal0.5-0.9[facility], [facility] ShawComment on above:Performed By: #### CDP, CP #### [facility] [address] [place], [place] [phone] Line Repairer Tower: Caden Brown MDGFR/1.73 sq M.predicted among non-blacks MDRD (S/P/Bld) [Vol rate/Area]mL/min/{1.73_m2}Normal>60[facility], [facility] ShawComment on above:Result Comment: These results are not intended for [...] or following therapy that affects renal tubular secretion.Performed By: #### CDP, CP #### [facility] [address] [place] [address] Line Repairer Tower: Caden Brown MDGlucose [Mass/Vol]64 mg/hLXtc66-11JiouaMercy Health Allen HospitalComment on above:Performed By: #### CDP, CP #### [facility] [address] [place] [address] Line Repairer Tower: MIR Aguileraotassium [Moles/Vol]3.6 mmol/LLow3.7-5.3MMercy Health Allen HospitalComment on above:Performed By: #### CDP, CP #### [facility] [address] [place] [address] Line Repairer Tower: Caden Brown MDProtein [Mass/Vol]6.5 g/dLNormal6.4-8.3MMercy Health Allen HospitalComment on above:Performed By: #### CDP, CP #### [facility] [address] [place] [phone] Line Repairer Tower: Caden Brown MDSodium [Moles/Vol]139 mmol/TQvtfnb248-039NfkemSelect Medical Cleveland Clinic Rehabilitation Hospital, Edwin ShawComment on above:Performed By: #### CDP, CP #### [facility] [address] [place] [address] Line Repairer Tower: Caden Brown MDUrea nitrogen [Mass/Vol]15 mg/dLNormal6-20[facility], [facility] ShawComment on above:Performed By: #### CDP, CP #### [facility] [address] [place] [place] [address] Line Repairer Tower: Caden Brown Acad[facility] Healthcareensive Metabolic Panelon [id number] [Mass/Vol]4.2 g/dL3.5 - 5.2 g/dLBon [facility] Anderson HospitalAlbumin/Globulin [Mass ratio]1.8 {ratio}1.0 - 2.5Bon [facility] HealthALP [Catalytic activity/Vol]61 U/L35 - 104 U/LBon SecOchs[facility] Medical Center HealthALT [Catalytic activity/Vol]27 U/L5 - 33 U/LBon [facility] Anderson HospitalAnion gap [Moles/Vol]10 mmol/L9 - 17 mmol/LBon [facility] HealthAST [Catalytic activity/Vol]24 U/LNINF - 32 U/LBon [facility] HospitalBilirubin [Mass/Vol]1.2 mg/dL0.3 - 1.2 mg/dLBon [facility] Calcium [Mass/Vol]9.1 mg/dL8.6 - 10.4 mg/dLBon [facility] HospitalChloride [Moles/Vol]105 mmol/L98 - 107 mmol/LBon [facility] HospitalCO2 [Moles/Vol]24 mmol/L20 - 31 mmol/LBon [facility] HospitalCreatinine [Mass/Vol]0.7 mg/dL0.5 - 0.9 mg/dLBon [facility] HospitalEst, Glom Filt Rate- PINFBon [facility] on above: These results are not intended [...] therapy that affects renal tubular secretion. Glucose [Mass/Vol]64 mg/dLLow70 - 99 mg/dLBon [facility] HospitalInterpretation and review of laboratory resultsAbnormalBon [facility] HealthPotassium [Moles/Vol]3.6 mmol/LLow3.7 - 5.3 mmol/LBon [facility] HealthProtein [Mass/Vol]6.5 g/dL6.4 - 8.3 g/dLBon [facility] HospitalSodium [Moles/Vol]139 mmol/L135 - 144 mmol/LBon [facility] HospitalUrea nitrogen [Mass/Vol]15 mg/dL6 - 20 mg/dLBon SecOchsner Medical Center HealthBon [facility] HospitalHCG, Quanton [id number], Tloek4726.0 mIU/mLHigh<5[facility] on above: Result Comment: Non-preg premeno <=5 Postmeno <=8 Male <=3 If HCG results do not concur with clinical observations, additional testing to confirm results is recommended.Performed By: #### BHCG ####[facility] [id number] [place] [address] lab Director: Caden Brown MDHCG, Quantitative, Pregnancyon [id number].beta subunit An4900.0 m[IU]/mLHighNINFRetreat Doctors' HospitalComment on above: Non-preg premeno <=5 Postmeno <=8 Male <=3 If HCG results do not concur with clinical observations, additional testing to confirm results is recommended. Interpretation and review of laboratory resultsAbnormalBon [facility] Bon [facility] HealthUrinalysison [id number] Ql (U)NegativeNEGATIVE [facility] HealthClarity (U)ClearClearBon SecO[facility] Center HealthColor (U) YellowYellowBon SecOchsner Medical Center HealthCommentBon SecOchs[facility] Medical Center HealthGlucose Test strip (U) [Mass/Vol]NegativeNEGATIVE mg/dLBon SecSheltering Arms HospitalHemoglobin Auto test strip Ql (U)NegativeNEGATIVEBon Secours [facility] Luther[facility] Hospitaly HealthKetones (U) [Mass/Vol]NegativeNEGATIVE mg/dLBon SecSheltering Arms HospitalLeukocyte esterase Test strip Ql (U)NegativeNEGATIVEBon [facility] HealthNitrite Ql (U)Negative NEGATIVEBon Secours [facility] HealthpH (U)8.0 [pH]5.0 - 8.0[facility] Protein (U) [Mass/Vol]NegativeNEGATIVE mg/dLBon [facility] HospitalSpecific gravity (U) [Rel density]1.0151.005 - 1.030Ret[facility] Doctors' HospitalUrobilinogen Qn (U)Normal0.0 - 1.0 EU/dLBon [facility] HospitalBon [facility] Urinalysis, Routineon [id number], SemiQt,UrNegativeNormalNEGSelect Medical Cleveland Clinic Rehabilitation Hospital, Edwin ShawComment on above:Performed By: #### UA ####[facility] [id number] [place] [address] Lab Director: Rodriguez Aguilera, UrineNegativeNormalCherrington HospitalComment on above: Performed By: #### UA ####[facility] [id number] [place] [address] Lab Director: MARCO Aguileralarity (U)Clear NormalCLEARMMercy Health Allen HospitalComment on above:Performed By: #### UA ####[facility] [id number] [place] [phone] Director: MARCO Aguileraolor (U)YellowNoParkwood Hospital Comment on above:Performed By: #### UA ####[facility] [address] [place] [address] Lab Director: Karli Aguilera NormalSelect Medical [facility] Clinic Rehabilitation Hospital, Edwin ShawComment on above:Performed By: #### UA ####[facility] [address] [place] [address] Lab Director: Ciera Aguilera Ql (U)NegativeNormalCherrington Hospital Comment on above:Performed By: #### UA ####[facility] [address] [place] [address] Lab Director: Caden Brown MDKetones Ql (U)NegativeNormalNEGSelect Medical [facility] Clinic Rehabilitation Hospital, Edwin ShawComment on above:Performed By: #### UA ####[facility] [address] [place] [facility] [address] Lab Director: Caden Brown MDLeukocyte esterase Test strip Ql (U)NegativeNormalNEGSelect Medical [facility] Clinic Rehabilitation Hospital, Edwin ShawComment on above:Performed By: #### UA ####[facility] [id number] [place] [phone] Director: Caden Brown MDNitrite,UrNegativeNormalNEGSelect Medical [facility] Clinic Rehabilitation Hospital, Edwin ShawComment on above:Performed By: #### UA ####[facility] [id number] [place] [address] Lab Director: Caden Brown MD PH,Ur8.4Lmkbtr0.0-8.0[facility], Edwin ShawComment on above:Performed By: #### UA ####[facility] [id number] [place] [address] Lab Director: MIR Aguilerarotein Ql (U)NegativeNormalNEG [facility], Edwin ShawComment on above:Performed By: #### UA ####[facility] [address] [place] [address] Lab Director: JOSUÉ Aguilerapec. Norton,Ur1.920Ueejbh6.005-1.030[facility] on above:Performed By: #### UA ####[facility] [address] [place] [address] Lab Director: Caden Brown MD Urobilinogen,UrNormalNormal0.0-1.0[facility], Edwin ShawComment on above: Performed By: #### UA ####[facility] [id number] [place] [address] lab Director: STACI Aguilera PREG QUANT HCG on [id number] SGNKZWEWVYKD075rZQ/mLNOMS HealthcareComment on above:5-50 0.2-1 WEEK 50-500 1-2 WEEKS 100-5,000 2-3 WEEKS 500-10,000 3-4 WEEKS 1,000-50,000 4-5 WEEKS 10,000-100,000 5-6 WEEKS 15,000-200,000 6-8 WEEKS 10,000-100,000 2-3 MONTHS CLINISYNCNOMS [facility] HospitalCB with Auto Differentialon [id number] (Bld) [#/Vol]0.01 10*3/uLBon Secours [facility] HospitalBasophils/100 WBC (Bld)0 %0 - 2 %[facility] HealthEosinophils (Bld) [#/Vol]0.01 10*3/uLBon Secours [facility] HospitalEosinophils/100 WBC (Bld)0 %0 - 5 %[facility] HospitalErythrocyte distribution width (RBC) [Ratio]12.2 %12.1 - 15.2 %[facility] Hematocrit (Bld) [Volume fraction]43.3 %36.0 - 46.0 %[facility] Hemoglobin (Bld) [Mass/Vol]14.9 g/dL12.0 - 16.0 g/dLBon Secours [facility] Luther[facility] Hospitaly [facility] Immature granulocytes (Bld) [#/Vol]0.01 10*3/uLBon Secours [facility] HospitalImmature granulocytes/100 WBC (Bld)0 %0 - 5 %[facility] HealthInterpretation and review of laboratory resultsAbnormalBon Secours Mercy HealthLymphocytes/100 WBC (Bld)15 %15 - 40 %[facility] HealthLymphocytes/100 WBC (Bld)1.82 %[facility] Hospitaly [facility] (RBC) [Entitic mass]31.1 pg26.0 - 34.0 pgBon Secours [facility] (RBC) [Mass/Vol]34.4 g/dL31.0 - 37.0 g/dLBon Secours Mercy HealthMCV (RBC) [Entitic vol]90.4 fL80.0 - 100.0 fLRetreat Doctors' Hospital Monocytes/100 WBC (Bld)4 %4 - 8 %[facility]' HospitalMonocytes/100 WBC (Bld) 0.43 %[facility] Doctors' HospitalNeutrophils/100 WBC (Bld)81 %High47 - 75 %Bon [facility] Anderson HospitalPlatelet mean volume (Bld) [Entitic vol]9.6 fL6.0 - 12.0 fL [facility] Doctors' HospitalPlatelets (Bld) [#/Vol]243 10*3/uLBon [facility] HospitalRBC (Bld) [#/Vol]4.79 10*6/uL4.00 - 5.20 m/[facility] Segmented neutrophils/100 WBC (Bld)9.54 %HighBon [facility] Anderson HospitalWBC other (Bld) [#/Vol]11.8HighBon [facility] Health CenterCBC with Diffon [id number]. Basophil0.01 k/uLNormal0.00-0.20[facility] Comment on above:Performed By: #### LIP, CP, HCG, CDP, TROPI #### [facility] [address] [place] [address] Line Repairer Tower: Gaye Aguilera.Imm.Granulocyte0.01 k/uLNormal0.00-0.30[facility] ShawComment on above:Performed By: #### LIP, CP, HCG, CDP, TROPI #### [facility] [address] [place] [address] Line Repairer Tower: Gaye Aguilera.Neutrophil (Seg)9.54 k/uLHigh2.5-7.0[facility] ShawComment on above:Performed By: #### LIP, CP, HCG, CDP, TROPI #### [facility] [address] [place] [address] Line Repairer Tower: Caden Sturtz, MDBasophils/100 WBC (Bld)0 %Normal0-2MMercy Health Allen HospitalComment on above:Performed By: #### LIP, CP, HCG, CDP, TROPI #### [facility] [address] [place] [address] Line Repairer Tower: GABRIEL Aguileraosinophils (Bld) [#/Vol]0.01 10*3/uLNormal 0.00-0.40[facility] ShawComformerly [facility] on above:Performed By: #### LIP, CP, HCG, CDP, TROPI #### [facility] [address] [place] [address] Line Repairer Tower: GABRIEL Aguileraosinophils/100 WBC (Bld)0 %Normal0-5[facility], Edwin ShawComment on above:Performed By: #### LIP, CP, HCG, CDP, TROPI #### [facility] [address] [place] [address] Line Repairer Tower: Caden Brown MDErythrocyte distribution width (RBC) [Ratio]12.2 % Ywjrif30.1-15.2MMercy Health Allen HospitalComment on above:Performed By: #### LIP, CP, HCG, CDP, TROPI #### [facility] [address] [place] [address] Line Repairer Tower: Caden Brown MDHematocrit (Bld) [Volume fraction]43.3 %Normal 36.0-46.0[facility] on above:Performed By: #### LIP, CP, HCG, CDP, TROPI #### [facility] [address] [place] [address] Line Repairer Tower: Caden Brown MDHemoglobin (Bld) [Mass/Vol]14.9 g/dLNormal 12.0-16.0[facility] on above:Performed By: #### LIP, CP, HCG, CDP, TROPI #### [facility] [address] [place] [id number] Line Repairer Tower: Hansa Aguilera granulocytes/100 WBC (Bld)0 %Normal0-5 [facility] ShawComformerly [facility] on above:Performed By: #### LIP, CP, HCG, CDP, TROPI #### [facility] [address] [place] [phone] Line Repairer Tower: Tyrese Aguileramphocytes (Bld) [#/Vol]1.82 10*3/uLNormal 1.00-4.80[facility], Edwin ShawComment on above:Performed By: #### LIP, CP, HCG, CDP, TROPI #### [facility] [address] [place] [address] Line Repairer Tower: Elpidio Aguilerahocytes/100 WBC (Bld)15 %Sbmsdx26-14PgmtpSelect Medical [facility] Clinic Rehabilitation Hospital, Edwin ShawComment on above:Performed By: #### LIP, CP, HCG, CDP, TROPI #### [facility] [address] [phone] Line Repairer Tower: CARLOS Aguilera (RBC) [Entitic mass]31.1 foBdsmdt65.0-34.0 [facility], Edwin ShawComment on above:Performed By: #### LIP, CP, HCG, CDP, TROPI #### [facility] [address] [phone] Line Repairer Tower: CARLOS AguileraC (RBC) [Mass/Vol]34.4 g/tCNgvand22.0-37.0[facility], Edwin ShawComment on above:Performed By: #### LIP, CP, HCG, CDP, TROPI #### [facility] [address] [place] [phone] Line Repairer Tower: SANDRA AguileraCV (RBC) [Entitic vol]90.4 dOVcywra75.0-100.0 [facility] on above:Performed By: #### LIP, CP, HCG, CDP, TROPI #### [facility] [address] [place] [address] Line Repairer Tower: SANDRA Aguileraonocytes (Bld) [#/Vol]0.43 10*3/uLNormal0.00-1.00 [facility] on above:Performed By: #### LIP, CP, HCG, CDP, TROPI #### [facility] [address] [place] [address] Line Repairer Tower: SANDRA Aguileraonocytes/100 WBC (Bld)4 %Normal4-8[facility] on above:Performed By: #### LIP, CP, HCG, CDP, TROPI #### [facility] [address] [place] [address] Line Repairer Tower: Ana Aguilera (Seg)81 %Mpos66-06RhgioSelect Medical [facility] Hospital, Edwin ShawComformerly [facility] on above:Performed By: #### LIP, CP, HCG, CDP, TROPI #### [facility] [address] [place] [address] Line Repairer Tower: Darrel Aguilera mean volume (Bld) [Entitic vol]9.6 fL Normal6.0-12.0[facility], [facility] ShawComformerly [facility] on above:Performed By: #### LIP, CP, HCG, CDP, TROPI #### [facility] [address] [place] [address] Line Repairer Tower: Althea Aguilera (Bld) [#/Vol]243 10*3/fNEwzmaj139-498 [facility] ShawComformerly [facility] on above:Performed By: #### LIP, CP, HCG, CDP, TROPI #### [facility] [address] [place] [address] Line Repairer Tower: CASSI Aguilera (Bld) [#/Vol]4.79 10*6/uLNormal4.00-5.20[facility], Edwin ShawComment on above:Performed By: #### LIP, CP, HCG, CDP, TROPI #### [facility] [address] [place] [address] Line Repairer Tower: Caden Brown MDMOUNT SINAI [facility] ([facility]) [#/Vol]11.8 10*3/uLHigh3.5-11.0[facility], Edwin ShawComment on above:Performed By: #### LIP, CP, HCG, CDP, TROPI #### [facility] [address] [place] [address] Line Repairer Tower: MARCO AguileraPerry County Memorial Hospital [id number] [Mass/Vol]4.5 g/dL3.5 - 5.2 g/dLBon [facility] HealthALP [Catalytic activity/Vol]80 U/L35 - 104 U/L Bon [facility] HealthALT [Catalytic activity/Vol]17 U/L5 - 33 U/LBon [facility]ours [facility] HospitalAnion gap [Moles/Vol]16 mmol/L9 - 17 mmol/LBon [facility]ours [facility] AST [Catalytic activity/Vol]19 U/LNINF - 32 U/LBon [facility] HealthBilirubin [Mass/Vol]1.3 mg/dLHigh0.3 - 1.2 mg/dLBon [facility] Hospitaly HealthCalcium [Mass/Vol] 9.7 mg/dL8.6 - 10.4 mg/dLBon [facility]ours [facility] Hospitaly HealthChloride [Moles/Vol]101 mmol/L 98 - 107 mmol/LBon [facility] Hospitaly HealthCO2 [Moles/Vol]21 mmol/L20 - 31 mmol/LBon [facility] Hospitaly HealthCreatinine [Mass/Vol]0.7 mg/dL0.5 - 0.9 mg/dLBon [facility] Hospitaly HealthEst, Glom Filt Rate- PINFBon [facility] Anderson HospitalComment on above: These results are not intended [...] therapy that affects renal tubular secretion. Glucose [Mass/Vol]94 mg/dL70 - 99 mg/dLBon [facility] HospitalInterpretation and review of laboratory resultsAbnormalBon [facility] HospitalPotassium [Moles/Vol]3.2 mmol/LLow3.7 - 5.3 mmol/LBon [facility] HealthProtein [Mass/Vol]7.4 g/dL6.4 - 8.3 g/dLBon [facility] HospitalSodium [Moles/Vol]138 mmol/L135 - 144 mmol/LBon [facility] HospitalUrea nitrogen [Mass/Vol]15 mg/dL6 - 20 mg/dLBon [facility] HospitalUrea nitrogen/Creatinine [Mass ratio]21 mg/mg High9 - 20Ret[facility] Doctors' HospitalCOVID-19, Rapidon 34-11-1948PLVD-CoV-2 (COVID- 19) RdRp gene JANET+probe Ql (Resp)Not detectedNot [facility] Community HospitalComment on above: Rapid NAAT: The specimen is [...] decisions. Methodology: Isothermal Nucleic Acid Amplification Specimen Description.NASOPHARYNGEAL SWABVirginia Hospital CenterCT ABDOMEN PELVIS W IV CONTRASTon [id number] ABDOMEN PELVIS W IV CONTRASTEXAMINATION: CT ABDOMEN PELVIS W IV CONTRAST, 11/16/2024 [...] Signed by: Сергей Cobian MD 11/16/24 Final resultNormalSelect Medical [facility] Clinic Rehabilitation Hospital, Edwin ShawCT Abdomen and Pelvis W contrast [place] 11-16-2024 1. Fluid throughout the lumen of the colon, including in the distal colon and rectum, which may be seen in patients with diarrhea. No bowel obstruction. 2. Otherwise normal CT, following prior appendectomy. No sign of diverticulitis, appendicitis, or other acute inflammatory process. IMPRESSION: MHPN RIS CONSOLIDATEDEXAMINATION: CT ABDOMEN PELVIS W IV CONTRAST, 11/16/2024 [...] lymph nodes. No aortic aneurysm or dissection. [facility] Сергей Jimenez MD - 11/16/2024 EXAMINATION: CT ABDOMEN PELVIS [...] appendicitis, or other acute inflammatory process. IMPRESSION: [facility] Hospital CenterRadiology Study observation (narrative)[facility] Metabolic Profon 21-38-1549Kktnnsw [Mass/Vol]4.5 g/dLNormal3.5-5.2MMercy Health Allen HospitalComment on above:Performed By: #### LIP, CP, HCG, CDP, TROPI ####[facility] [address] [place] [address] Lab Director: Judy Aguilera Phos80 U/FYyjdwf77-079AoednSelect Medical Cleveland Clinic Rehabilitation Hospital, Edwin ShawComment on above:Performed By: #### LIP, CP, HCG, CDP, TROPI ####[facility] [address] [place] [id number] Lab Director: Caden Brown MDALT [Catalytic activity/Vol]17 U/LNormal5-33[facility], Edwin ShawComment on above:Performed By: #### LIP, CP, HCG, CDP, TROPI ####[facility] [address] [place] [address] Lab Director: Chad Aguilera gap [Moles/Vol]16 mmol/LNormal9-17[facility], Edwin ShawComment on above:Performed By: #### LIP, CP, HCG, CDP, TROPI ####[facility] [address] [place] [address] Lab Director: Caden Brown MDAST [Catalytic activity/Vol]19 U/LNormal<32[facility], Edwin ShawComment on above: Performed By: #### LIP, CP, HCG, CDP, TROPI ####[facility] [address] [place] [address] Lab Director: Caden Brown MD Bilirubin [Mass/Vol]1.3 mg/dLHigh0.3-1.2MMercy Health Allen HospitalComment on above: Performed By: #### LIP, CP, HCG, CDP, TROPI ####[facility] [address] [place] 2734290 Lab Director: Caden Brown MD BUN/CRE Xwxzd00Fmlr7-43TdnhzSelect Medical [facility] Clinic Rehabilitation Hospital, Edwin ShawComment on above:Performed By: #### LIP, CP, HCG, CDP, TROPI ####[facility] [address] [place] [address] Lab Director: MARCO Aguileraalcium [Mass/Vol] 9.7 mg/dLNormal8.6-10.4[facility], Edwin ShawComment on above:Performed By: #### LIP, CP, HCG, CDP, TROPI ####[facility] [address] [place] 2734290 Lab Director: MARCO Aguilerahloride [Moles/Vol]101 mmol/VXhapnq17-943ZvekkSelect Medical [facility] Clinic Rehabilitation Hospital, Edwin ShawComment on above: Performed By: #### LIP, CP, HCG, CDP, TROPI ####[facility] [address] [place] [address] Lab Director: Caden Brown MD CO2 [Moles/Vol]21 mmol/JMaoqxi50-65UmbhpSelect Medical [facility] Clinic Rehabilitation Hospital, Edwin ShawComment on above: Performed By: #### LIP, CP, HCG, CDP, TROPI ####[facility] [address] [place] [address] Lab Director: Caden Brown MD Creatinine [Mass/Vol]0.7 mg/dLNormal0.5-0.9[facility] on above:Performed By: #### LIP, CP, HCG, CDP, TROPI ####[facility] [address] [place] [address] Lab Director: Caden Brown MDGFR/1.73 sq M.predicted among non-blacks MDRD (S/P/Bld) [Vol rate/Area]mL/min/{1.73_m2}Normal>60[facility] ShawComformerly [facility] on above:Result Comment: These results are not intended for [...] or following therapy that affects renal tubular secretion.Performed By: #### LIP, CP, HCG, CDP, TROPI ####[facility] [address] [place], [place] [phone] Director: Caden Brown MDGlucose [Mass/Vol]94 mg/dLNormal 70-99Mohiohealth southeastern medical centery Field Memorial Community HospitalComment on above:Performed By: #### LIP, CP, HCG, CDP, TROPI ####[facility] [address] [place], [place] [phone] Director: MIR Aguileraotassium [Moles/Vol]3.2 mmol/L Low3.7-5.3MMercy Health Allen HospitalComment on above:Performed By: #### LIP, CP, HCG, CDP, TROPI ####[facility] [address] [place], [place] [phone] Director: Caden Brown MDProtein [Mass/Vol]7.4 g/dL Normal6.4-8.3MMercy Health Allen HospitalComment on above:Performed By: #### LIP, CP, HCG, CDP, TROPI ####[facility] [address] [place], [place] [phone] Director: Caden Brown MDSodium [Moles/Vol]138 mmol/L Zjsnhz147-444QywmhSelect Medical [facility] Clinic Rehabilitation Hospital, Edwin ShawComment on above:Performed By: #### LIP, CP, HCG, CDP, TROPI ####[facility] [address] [place], [place] [phone] Director: Caden Brown MDUrea nitrogen [Mass/Vol]15 mg/dLNormal6-20[facility], [facility] ShawComment on above:Performed By: #### LIP, CP, HCG, CDP, TROPI ####[facility] [address] [place], [place] [phone] Director: Caden Brown MDFlu A/B Ag Detectionon 30-74-1882Zzg A Ag DetectionNegativeNormalNEGMerSumma Health Wadsworth - Rittman Medical Center on above:Result Comment: for Influenza A AntigenPerformed By: #### FLUABA ####[facility] [address] [place] [address] lab Director: Felipe Aguilera B Ag DetectionNegativeNormalNEGMercy Health West Hospital on above:Result Comment: for Influenza B Antigen.Performed By: #### FLUABA ####[facility] [address] [place] [address] lab Director: Caden Brown MDHCG Qualitative, Serumon 08-56-3988XFG ( test) QlNegativeNEGATIVEBon [facility] on above:Specimens with hCG levels near the threshold of the test (25 mIU/mL) may give a negative or indeterminate result. In such cases, another test should be performed with a new specimen in 48-72 hours. If early is suspected clinically in this setting, correlation with quantitative serum b-hCG level is suggested. [facility] has confirmed the use of plasma for this test. This has not been cleared or approved by the U.S. Food and Drug Administration. The FDA has determined that such clearance is not necessary. Bon [facility] HospitalHCG Screen, Bloodon 51-27-2263DWP Screen, BloodNegative NormalNEGMerJamaica Hospital Medical CenterComformerly [facility] on above:Result Comment: Specimens with hCG levels near the threshold of the test (25 mIU/mL) may give a negative or indeterminate result. In such cases, another test should be performed with a new specimen in 48-72 hours. If early is suspected clinically in this setting, correlation with quantitative serum b-hCG level is suggested. [facility] has confirmed the use of plasma for this test. This has not been cleared or approved by the U.S. Food and Drug Administration. The FDA has determined that such clearance is not necessary.Performed By: #### LIP, CP, HCG, CDP, TROPI ####[facility] [address] [place] [address] lab Director: Caden Brown MDLipaseon 26-46-1960Knqhed [Catalytic activity/Vol]47 U/L13 - 60 U/LBon [facility] HealthLipase [Catalytic activity/Vol]47 U/AKduxfe86-31RamjySelect Medical [facility] Clinic Rehabilitation Hospital, Edwin ShawComment on above: Performed By: #### LIP, CP, HCG, CDP, TROPI ####[facility] [address] [place], [place] [address] lab Director: Caden Brown MD No Panel Informationon 06-59-7265Mkn [facility] XR Chest AP single viewon 11-16-2024 Normal chest. [facility] CONSOLIDATEDCLINICAL HISTORY: Shortness of breath. Chest pain. CHEST PORTABLE AP VIEW: The lungs are clear. No pneumothorax. The pulmonary vascularity and cardiomediastinal silhouette are normal. No acute fracture is seen. [facility] Сергей Rincon MD - 11/16/2024 CLINICAL HISTORY: Shortness of breath. Chest pain. CHEST PORTABLE AP VIEW: The lungs are clear. No pneumothorax. The pulmonary vascularity and cardiomediastinal silhouette are normal. No acute fracture is seen. IMPRESSION: Normal chest. [facility] HospitalRadiology Study observation (narrative)[facility] XR Chest AP single viewOrdered By: Сергей Cobian on 08-20-4774TdlPioneer Community Hospital of Patrick Work Phone: Rapid influenza A/B antigenson 18-64-3725WVWWX Ag Ql (Unsp spec)NegativeNEGATIVERetreat Doctors' HospitalComment on above:for Influenza A AntigenFLUBV Ag Ql (Unsp spec)NegativeNEGATIVEBon [facility] HospitalComformerly [facility] on above:for Influenza B Antigen.[facility] ACYR-FfW-5fa 60-90-4378QPCR-CoV-2 (COVID-19) RNA JANET+probe Ql (Unsp spec)Not detectedNormalNOTDEGrant Hospital on above:Result Comment: Rapid NAAT: The specimen is NEGATIVE [...] patient management decisions. Methodology: Isothermal Nucleic Acid AmplificationPerformed By: #### COVRB ####[facility] [address] [place] [phone] Director: Caden Brown MDTropomike 13-97-0870Sxskwhav I.cardiac High sensitivity method [Mass/Vol]ng/L0 - 14 ng/LBon [facility] on above:High Sensitivity Troponin values cannot be compared with other Troponin methodologies.Bon [facility] Campusoponin, High Sens<5Lxoykd2-13UpuqbMercy Health West Hospital on above:Result Comment: High Sensitivity Troponin values cannot be compared with other Troponin methodologies.Performed By: #### LIP, CP, HCG, CDP, TROPI ####[facility] [address] [place], [place] [phone] lab Director: Caden Brown MDUrinalysison 70-74-1795Kcoebnauh Ql (U)NegativeNEGATIVEBon Secours Mercy HealthClarity (U)ClearClearBon [facility] HealthColor (U)Yellow YellowBon [facility] HealthCommentBon [facility] HealthGlucose Test strip (U) [Mass/Vol]NegativeNEGATIVE mg/dLBon [facility]ours [facility] Hospitaly HealthHemoglobin Auto test strip Ql (U)NegativeNEGATIVEBon [facility]ours [facility] Hospitaly HealthKetones (U) [Mass/Vol] NegativeNEGATIVE mg/dLBon [facility]ours [facility] HospitalLeukocyte esterase Test strip Ql (U)NegativeNEGATIVEBon [facility] Hospitaly HealthNitrite Ql (U)NegativeNEGATIVEBon [facility] HospitalpH (U)7.0 [pH]5.0 - 8.0Bon [facility] HospitalProtein (U) [Mass/Vol]NegativeNEGATIVE mg/dLBon [facility] HospitalSpecific gravity (U) [Rel density]1.0101.005 - 1.030Bon [facility] HospitalUrobilinogen Qn (U)Normal 0.0 - 1.0 EU/dLBon [facility] HospitalBon [facility] HospitalUrinalysis, Routineon 42-02-9518Qclawrrvg, SemiQt,UrNegativeNormChildren's Hospital for Rehabilitation Comment on above:Performed By: #### UA #### [facility] [address] [place] [phone] Line Repairer Tower: Rodriguez Aguilera, UrineNegativeMercy Health St. Vincent Medical CenterComment on above:Performed By: #### UA #### [facility] [address] [place] [phone] Line Repairer Tower: MARCO Aguileralarity (U)ClearNormalCLEARSelect Medical [facility] Comment on above:Performed By: #### UA #### [facility] [address] [place] [phone] Line Repairer Tower: MARCO Aguileraolor (U)YellowNoParkwood Hospital Comment on above:Performed By: #### UA #### [facility] [address] [place] [phone] Line Repairer Tower: MARCO AguileraommentNoPremier HealthComment on above:Performed By: #### UA #### [facility] [address] [place] 6[address] Line Repairer Tower: Ciera Aguilera Ql (U)NegativeNormalCherrington HospitalComment on above:Performed By: #### UA #### [facility] [address] [place], [place] 8[address] Line Repairer Tower: Caden Brown MDKetones Ql (U)NegativeNormalNEGSelect Medical [facility] Clinic Rehabilitation Hospital, Edwin ShawComment on above:Performed By: #### UA #### [facility] [address] [place] [address] Line Repairer Tower: Caden Brown MDLeukocyte esterase Test strip Ql (U)NegativeNormal NEGSelect Medical [facility] Clinic Rehabilitation Hospital, Edwin ShawComment on above:Performed By: #### UA #### [facility] [address] [place] [address] Line Repairer Tower: Behzad Aguilera,UrNegativeNormSelect Medical [facility]ty [facility] on above:Performed By: #### UA #### [facility] [address] [place] [address] Line Repairer Tower: MIR Aguilera,Ur7.3Xgttgl1.0-8.0Trinity Health Systemment on above:Performed By: #### UA #### [facility] [address] [place] [address] Line Repairer Tower: Emma Aguilera Ql (U)NegativeNormalNEGSelect Medical [facility] Clinic Rehabilitation Hospital, Edwin ShawComment on above:Performed By: #### UA #### [facility] [address] [place] [address] Line Repairer Tower: JOSUÉ Aguilerapec. Norton,Ur1.196Eighlz8.005-1.030[facility], [facility] ShawComment on above:Performed By: #### UA #### [facility] [address] [place] [address] Line Repairer Tower: Talia Aguilerabilinogen,UrNormalNormal0.0-1.0Trinity Health Systemment on above:Performed By: #### UA #### [facility] [address] [place] [address] Line Repairer Tower: FELICIANO Aguilera CHEST PORTABLEon 06-10-0153BV CHEST PORTABLE CLINICAL HISTORY: Shortness of breath. Chest pain. CHEST PORTABLE AP VIEW: The lungs are clear. No pneumothorax. The pulmonary vascularity and cardiomediastinal silhouette are normal. No acute fracture is seen. IMPRESSION: Normal chest. Interpreted by: Сергей Cobian MD Signed by: Сергей Cobian MD 11/16/24 Final resultNormalMerJamaica Hospital Medical CenterHCG ( test) Ql (U)on 10-23-2024 Interpretation and review of laboratory resultsNormalNOMS HealthcarePreg Test, UrNegativeNegativeNOMS HealthcareNOMS HealthcareHCG ( test) Ql (U)on 93-33-0336Vfnb HCG ( test) Ql (U)NegativeNormalNEGProMedica Kettering Health HamiltonComment on above:Performed By: #### 2106-3 #### [facility] ([id number]) [address] [place], [place] [address]Surgical Pathologyon 46-13-3663Ioffeuxa PathologyNormal Grant HospitalComment on above:Result Comment: [facility] [address] [place] [address] Surgical Pathology Consultation Patient Name:CHARIS ALLEN:2000 (Age: 23)Gender:FTaken:4Reported:4Physician(s):Luis Enrique Jennings DO ([phone])Copy To: Rec. 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 Report Electronically Signed Out cjb/4Ceri Arguelles MD Interpretation performed at [facility], [address] [place] [address], License number: [id number]. Clinical History Lesion of tongue. Gross Description Received in formalin labeled TIFFANY, right base of tongue lesion is a Telfa pad with two travis-yellow rubbery soft tissue bits, 0.2 and 0.3 cm. The specimen is filtered and entirely submitted in a single cassette. (1, ns, [id number],m5) DM. dm/08/27/2024NSK Specimen(s) Received Right base of tongue Fee Codes(s): 1; 29139INSSur 21-21-0351SHJATndcsg Visit (PODIAM) CHARIS ALLEN ([id number]) 4 F Date Time Provider Department 07/25/24 11:45 AM ARLET DELGADO During your visit today, we recorded the following information about you: Arlet Delgado, DPM 07/25/2024 5:34 PM Signed Service [...] Olga Thompson MA acting as scribe for Arlet Delgado DPM. July 25, 2024 12:18 PM I spent 20 minutes on the date of the service which included preparing to see the patient, lqyf-on-vhxh patient care, completing clinical documentation, obtaining and/or reviewing separately obtained history, performing a medically appropriate examination, counseling and educating the patient/family/caregiver, ordering medications, tests and care coordination (not separately reported). Time did not include procedure time. I agree with the Chief Complaint, ROS, and Past Histories independently gathered by the clinical it support technician and the remaining scribed note accurately describes [...] your cooperation. GENERAL INS (more content not included)...NormalAshtabula County Medical Center NECK SOFT TISSUE W CONTon 48-33-3342DC NECK SOFT TISSUE W CONTCT NECK SOFT TISSUE W CONT EXAM: CT [...] Finalized by Mich Ty on 07/11/2024 8:38 AMNormalProMedica Kettering Health Hamilton TBH PREG QUANT HCGon 65-67-4424TWM QUANTITATIVE<1mIU/mLNOMS HealthcareComment on above:5-50 0.2-1 WEEK 50-500 1-2 WEEKS 100-5,000 2-3 WEEKS 500-10,000 3-4 WEEKS 1,000-50,000 4-5 WEEKS 10,000-100,000 5-6 WEEKS 15,000-200,000 6-8 WEEKS 10,000-100,000 2-3 [facility]INISYNCNOMS HealthcareCT abdomen pelvis w conon 04-52-4743RF abdomen pelvis w [facility] [place] [address] [place] [address] CT Scan Report Signed Patient: Charis Allen MR#: [id number] : 2000 Acct:[id number] Age/Sex: 23 / F ADM Date: 06/27/24 Loc: ER Room: Type: [facility] ER Attending Dr: Copies to: Yung [...] Michael Camacho M.D.06/28/2024 6:18 AM Dictation Location: [place] [address] Transcribed By: [facility] 06/28/2418 Dictated By: Michael Camacho DO 06/28/2416 Signed By: 06/28/2418[facility] Physician GroupChlamydia/GC Amplificationon 58-71-7055Wlwaazbrc Trachomotis, NAANegativeNormalNegativeHca Florida Jfk Hospital Physician [facility] Regional HospitalComment on above:Order Comment: SOURCE OF SPECIMEN: Genital Performed By: #### FS #### [address] #### GCCHLAMAMP #### [facility] ,Neisseria Gonorrhoeae, NAANegativeNormalNegativeThe [facility] Comment on above:Order Comment: SOURCE OF SPECIMEN: GenitalResult Comment: Performed at: =[facility] [id number] Line Repairer Tower: Barbie Mota MD, Phone: [phone] PERFORMED BY: [place] [address] PATHOLOGIST CREPE BOX TENDER SAMANTHA VILLAR M.D.Performed By: #### FS #### [address] #### GCCHLAMAMP #### [facility] ,Fungal Smearon 86-96-9876Rcspfn SmearFungus Smear Results No Yeast Like Elements Seen Trichomonas Screen No Trichomonas Seen Trich Reference Reference range = None Seen PERFORMED BY: [place] [address] PATHOLOGIST CREPE BOX TENDER SAMANTHA VILLAR M.D.NormalThe [facility] Physician GroupComment on above:Performed By: #### FS #### [facility] [address] [place] [address] [place] #### GCCHLAMAMP #### [facility] ,Trichomonas vaginalis detection by wet preparationOrdered By: Yung Nichols on 06-28-2024T. vaginalis Wet prep Ql (Unsp spec)[facility] Alanine aminotransferase [Enzymatic activity/volume] in Serum or PlasmaOrdered By: Yung Nichols on 21-40-5007VHD [Catalytic activity/Vol]20 U/LNormal7-52 [facility] HospitalComment on above:Performed By: #### CMP, LIPASE, CBC ####[place] [address] [place], [place] USAAlbumin [Mass/volume] in Serum or Plasma by Bromocresol green (BCG) dye binding methoOrdered By: Yung Nichols on 43-08-1446Rrldfbv BCG dye [Mass/Vol] 4.2 g/dL3.5-5.7FPremier Health Miami Valley HospitalAlkaline phosphatase [Enzymatic activity/volume] in Serum or PlasmaOrdered By: Yung Nichols on 25-49-0560USI [Catalytic activity/Vol]69 U/RKerrpx72-614TfxjrggpfSelect Medical [facility] Rehabilitation Hospital Comment on above:Performed By: #### CMP, LIPASE, CBC ####[address] USAAspartate aminotransferase [Enzymatic activity/volume] in Serum or PlasmaOrdered By: Yung Nichols on 04-06-6322DSG [Catalytic activity/Vol]21 U/DVenndi89-35HhszbljhrSelect Medical Trihealth Rehabilitation HospitalComment on above:Performed By: #### CMP, LIPASE, CBC ####[address] USAAutomated basophil % Ordered By: Yung Nichols on 89-09-0668Kevtseptn/100 WBC (Bld)0.6 %Normal. [facility] HospitalComment on above:Performed By: #### CMP, LIPASE, CBC ####[place] [address] [place], [place] USAAutomated basophil countOrdered By: Yung Nichols on 89-73-8279Dgkvrqpkk (Bld) [#/Vol]0.0 10*3/uLNormal0.0-0.2FPremier Health Miami Valley HospitalComment on above:Result Comment: PERFORMED BY: [facility] [address] [address] PATHOLOGIST CREPE BOX TENDER SAMANTHA VILLAR M.D.Performed By: #### CMP, LIPASE, CBC ####[address] USAAutomated blood monocyte count Ordered By: Yung Nichols on 10-13-4478Conlqmoeg (Bld) [#/Vol]0.5 10*3/uLNormal 0.0-0.8[facility] HospitalComment on above:Performed By: #### CMP, LIPASE, CBC ####[address] [address] USAAutomated eosinophil %Ordered By: Yung Nichols on 06-27-2024 Eosinophils/100 WBC (Bld)1.4 %Normal.[facility] HospitalComment on above:Performed By: #### CMP, LIPASE, CBC ####[address] USAAutomated eosinophil countOrdered By: Yung Nichols on 11-56-9930Bujnrinibah (Bld) [#/Vol]0.1 10*3/uLNormal0.0-0.45 [facility] HospitalComment on above:Performed By: #### CMP, LIPASE, CBC ####[address] USAAutomated monocyte %Ordered By: Yung Nichols on 39-96-4667Tzndkryzr/100 WBC (Bld)6.7 %Normal.[facility] HospitalComment on above:Performed By: #### CMP, LIPASE, CBC ####[address] [id number] USAAutomated neutrophil %Ordered By: Yung Nichols on 03-31-8768Wikzwflkbaa/100 WBC (Bld)63.9 %Normal.[facility] HospitalComment on above:Performed By: #### CMP, LIPASE, CBC ####[facility]ef[address] Nazarioformerly [facility] [id number] USABacteria [Presence] in Urine by AutomatedOrdered By: Yung Nichols on 23-56-3899Ocqyolqw Auto Ql (U) Rare [HPF]None SeenSelect Medical Trihealth Rehabilitation HospitalBilirubin Test strip Ql (U) Ordered By: Yung Nichols on 00-71-3482Ewgkrloka Ql (U)NegativeNegativeSelect Medical Trihealth Rehabilitation HospitalBilirubin.total [Mass/volume] in Serum or PlasmaOrdered By: Yung Nichols on 62-93-5915Coescpnmd [Mass/Vol]1.5 mg/dLHigh0.3-1.0[facility] HospitalComment on above:Samples from patients who have taken Naproxen have shown spurious elevation in Total Bilirubin levels. A metabolite of Naproxen, O-desmethylnaproxen, has been shown to interfere with the Jendrassik-Grof method for measuring Total Bilirubin.Result Comment: Samples from patients who have taken Naproxen have shown spurious elevation in Total Bilirubin levels. A metabolite of Naproxen, O-desmethylnaproxen, has been shown to interfere with the Jendrassik-Grof method for measuring Total Bilirubin.Performed By: #### CMP, LIPASE, CBC ####[facility] Mansiformerly [facility] centercarson [address] USACalcium [Mass/volume] in Serum or PlasmaOrdered By: Yung Nichols on 04-17-5575Ulgyxnw [Mass/Vol]9.1 mg/dL Normal8.6-10.3FPremier Health Miami Valley HospitalComment on above:Performed By: #### CMP, LIPASE, CBC ####[facility] [facility] Hospitalcarson [id number] USACarbon dioxide, total [Moles/volume] in Serum or PlasmaOrdered By: Yung Nichols on 58-11-6006HN2 [Moles/Vol]26.8 mmol/LNormal 21.0-31.0[facility] HospitalComment on above:Performed By: #### CMP, LIPASE, CBC ####[place] [address] [place] [address] USAChloride [Moles/volume] in Serum or PlasmaOrdered By: Yung Nichols on 32-86-8779Jkhszpyz [Moles/Vol]105 mmol/LZrwwlf26-460BsgxuvmwySelect Medical Trihealth Rehabilitation HospitalComment on above:Performed By: #### CMP, LIPASE, CBC ####[address] USAColor of Urine by Auto Ordered By: Yung Nichols on 29-18-6878Ecflw (U)YellowNormalYellowSelect Medical Trihealth Rehabilitation HospitalComment on above:Order Comment: SOURCE OF SPECIMEN: GenitalPerformed By: #### FS #### [place] [id number] [place] #### GCCHLAMAMP #### [facility] ,Complete Blood Count Auto Diffon 89-12-2583Uadk Corpuscular HGB Conc33.3 g/dL Renjhf97.0-35.0The [facility] Physician GroupComment on above:Performed By: #### CMP, LIPASE, CBC ####[place] [id number] USAMonocytes/100 WBC (Bld)20.22 %High0.00-20.00The [facility] Physician GroupComment on above:Result Comment: For adults in ED, MDW > 20.0 may be associated with a higher risk of sepsis during the first 12 hrs of hospital admissionPerformed By: #### CMP, LIPASE, CBC ####[place] [id number] USANRBC%0.2 /100{WBC}Normal0-0.5The [facility] Physician GroupComment on above:Performed By: #### CMP, LIPASE, CBC ####[address] USAComprehensive Metabolic Panelon 06-27-2024 Albumin [Mass/Vol]4.2 g/dLNormal3.5-5.7The [facility] Physician GroupComment on above:Performed By: #### CMP, LIPASE, CBC ####[facility] [facility], [place] USACreatinine Clr Calc Eiqrwsge601.39NormHCA Florida Plantation Emergency Physician GroupComment on above:Performed By: #### CMP, LIPASE, CBC ####[facility] [place] USAGFR/1.73 sq M.predicted MDRD (S/P/Bld) [Vol rate/Area]mL/min/{1.73_m2}NormalThe [facility] Physician GroupComment on above:Performed By: #### CMP, LIPASE, CBC ####[address] [place] Creatinine [Mass/volume] in Serum or PlasmaOrdered By: Yung Nichols on 84-20-5543Hcqmaivkov [Mass/Vol]0.75 mg/dLNormal0.60-1.20[facility] HospitalComment on above:Performed By: #### CMP, LIPASE, CBC ####[address] USADipstick and Microscopicon 71-93-6924Klumnvgh,UrineRareNormalNone SeenThe [facility] Physician GroupComment on above:Order Comment: SOURCE OF SPECIMEN: GenitalPerformed By: #### FS #### [facility] [address] [place] [address] #### GCCHLAMAMP #### [facility] ,Bilirubin,UrineNegativeNormalNegativeThe [facility] Physician GroupComment on above:Order Comment: SOURCE OF SPECIMEN: GenitalPerformed By: #### FS #### [facility] [address] [place] [address] [place] #### GCCHLAMAMP #### [facility] ,Glucose Ql (U)NormalNormalNoMiami Valley Hospitale [facility] Physician GroupComment on above: Order Comment: SOURCE OF SPECIMEN: GenitalPerformed By: #### FS #### [facility] [address] [place] [address] [place] #### GCCHLAMAMP #### [facility] ,Hyaline Casts,UrineNoneNormal0-8The [facility] Physician GroupComment on above: Order Comment: SOURCE OF SPECIMEN: GenitalPerformed By: #### FS #### [facility] [address] [place] [address] #### GCCHLAMAMP #### [facility] ,Mucus,Urine4+Critically abnormalThe [facility] Physician GroupComment on above: Order Comment: SOURCE OF SPECIMEN: GenitalPerformed By: #### FS #### [facility] [address] [place] [address] #### GCCHLAMAMP #### [facility] ,Nitrite,UrineNegativeNormalNegativeHca Florida Jfk Hospital Physician GroupComment on above:Order Comment: SOURCE OF SPECIMEN: GenitalPerformed By: #### FS #### [facility] [address] [place] [address] #### GCCHLAMAMP #### [facility] ,Occult Blood,Urine1+HighNegativeThe [facility] Physician GroupComment on above: Order Comment: SOURCE OF SPECIMEN: GenitalPerformed By: #### FS #### [facility] [address] [place] [address] #### GCCHLAMAMP #### [facility] ,Protein,UrineNegativeNormalNegativeThe [facility] Physician GroupComment on above:Order Comment: SOURCE OF SPECIMEN: GenitalPerformed By: #### FS #### [facility] [address] [place] [address] #### GCCHLAMAMP #### [facility] ,RBC,Idbil5-5Wpkz6-0Mzf [facility] Physician GroupComment on above:Order Comment: SOURCE OF SPECIMEN: GenitalPerformed By: #### FS #### [facility] [address] [place] [address] #### GCCHLAMAMP #### [facility] ,Specificy Norton,Urine1.200Fhbjrv9.001-1.030The [facility] Comment on above:Order Comment: SOURCE OF SPECIMEN: GenitalPerformed By: #### FS #### [facility] [address] [place] [address] [place] #### GCCHLAMAMP #### [facility] ,Squamous Epithelial Cell,Hiwbv6-6Ptxk4-3Emz [facility] Physician GroupComment on above:Order Comment: SOURCE OF SPECIMEN: GenitalPerformed By: #### FS #### [facility] [address] [place] [address] [place] #### GCCHLAMAMP #### [facility] ,Urobilinogen,UrineNormalNormalNormalThe [facility] Physician GroupComment on above:Order Comment: SOURCE OF SPECIMEN: GenitalPerformed By: #### FS #### [place] [address] [place] #### GCCHLAMAMP #### [facility] ,WBC,Rmdul91-07Moqm8-9Jak [facility] Physician GroupComment on above:Order Comment: SOURCE OF SPECIMEN: GenitalPerformed By: #### FS #### [facility] [address] [place] [address] [place] #### GCCHLAMAMP #### [facility] ,Epithelial cells.squamous [#/area] in Urine sediment by Automated countOrdered By: Yung Nichols on 77-83-6059Awhwhyralo cells.squamous Auto (Urine sed) [#/Area]3-4 [HPF]High0-2FPremier Health Miami Valley HospitalErythrocyte distribution width [Ratio] by Automated countOrdered By: Yung Nichols on 68-16-6194Jkxaztvbzwx distribution width (RBC) [Ratio]14.2 %Bnwuer03.9-15.3 [facility] HospitalComment on above:Performed By: #### CMP, LIPASE, CBC ####[facility] [address] [place], [place] USAErythrocytes [#/area] in Urine sediment by Automated countOrdered By: Ynug Nichols on 34-35-7490PSR Auto (Urine sed) [#/Area]5-9 [HPF]High0-4FPremier Health Miami Valley HospitalErythrocytes [#/volume] in Blood by Automated count Ordered By: Yung Nichols on 00-42-3266WXN (Bld) [#/Vol]4.32 10*6/uLNormal 3.60-5.00[facility] HospitalComment on above:Performed By: #### CMP, LIPASE, CBC ####[facility] [place] [id number] USAGlucose [Mass/volume] in Serum or PlasmaOrdered By: Yung Nichols on 44-61-8726Oyahdou [Mass/Vol]82 mg/iARwobsx47-186NcbkbqscrSelect Medical Trihealth Rehabilitation HospitalComment on above:ADA recommended reference rangeRandom Glucose Reference Range is dependent on time and content of last meal. Glucose of more than 200 mg/dL in a nonstressed, ambulatory subject supports the diagnosisof Diabetes Mellitus.Result Comment: Random Glucose Reference Range is dependent on time and content of last meal. Glucose of more than 200 mg/dL in a nonstressed, ambulatory subject supports the diagnosis of Diabetes Mellitus. ADA recommended reference rangePerformed By: #### CMP, LIPASE, CBC ####[facility] [place], [place] USAGlucose [Mass/volume] in Urine by Test stripOrdered By: Yung Nichols on 34-18-2433Cqoptvy Test strip (U) [Mass/Vol]Normal mg/dLNormalSelect Medical Trihealth Rehabilitation HospitalHCG ( test) IA.rapid Ql (U)Ordered By: Yung Nichols on 30-67-0155LUU ( test) Ql (U)NegativeSelect Medical Trihealth Rehabilitation HospitalHCG,Urineon 46-19-0410Xgnf HCG ( test) Ql (U)NegativeNoECU Health Edgecombe Hospital Physician GroupComment on above:Order Comment: SOURCE OF SPECIMEN: GenitalResult Comment: PERFORMED BY: [place] [address] PATHOLOGIST CREPE BOX TENDER SAMANTHA VILLAR M.D.Performed By: #### FS #### [address] #### GCCHLAMAMP #### [facility] ,Hematocrit [Volume Fraction] of Blood by Automated countOrdered By: Yung Nichols on 87-60-0773Gvcvkfxpgl (Bld) [Volume fraction]39.5 %Iycipw68.0-46.4 [facility] HospitalComment on above:Performed By: #### CMP, LIPASE, CBC ####[address] USAHemoglobin Test strip Ql (U)Ordered By: Yung Nichols on 25-65-1918Iwjygpwyxs Ql (U)1+HighNegClermont County HospitalHemoglobin [Mass/volume] in BloodOrdered By: Yung Nichols on 63-39-0497Nznhytlxdi (Bld) [Mass/Vol]13.2 g/rNGsrcrt68.8-15.4FPremier Health Miami Valley HospitalComment on above:Performed By: #### CMP, LIPASE, CBC ####[address] USAHyaline casts [#/area] in Urine sediment by Automated countOrdered By: Yung Nichols on 52-10-6944Qxajwip casts Auto (Urine sed) [#/Area]None [LPF]0-8[facility] HospitalKetones [Presence] in Urine by Test stripOrdered By: Yung Nichols on 48-76-5082Zjaobid Ql (U)Negative NormalNegClermont County HospitalComment on above:Order Comment: SOURCE OF SPECIMEN: GenitalPerformed By: #### FS #### [place] [address] [place] #### GCCHLAMAMP #### [facility] ,Leukocyte esterase [Presence] in Urine by Test stripOrdered By: Yung Nichols on 13-71-3302Hgldmzaat esterase Test strip Ql (U)4+HighNegClermont County HospitalComment on above:Order Comment: SOURCE OF SPECIMEN: GenitalPerformed By: #### FS #### [place] [address] [place] #### GCCHLAMAMP #### [facility] ,Leukocytes [#/area] in Urine sediment by Automated countOrdered By: Yung Nichols on 06-42-3155RPY Auto (Urine sed) [#/Area]20-49 [HPF]High0-4FPremier Health Miami Valley HospitalLeukocytes [#/volume] corrected for nucleated erythrocytes in Blood by Automated counOrdered By: Yung Nichols on 06-27-2024 WBC corrected for nucl RBC Auto (Bld) [#/Vol]7.2 10*3/uL3.8-11.6FPremier Health Miami Valley HospitalLeukocytes [#/volume] in Blood by Automated countOrdered By: Yung Nichols on 48-68-2837EKX (Bld) [#/Vol]7.2 10*3/uLNormal3.8-11.6 [facility] HospitalComment on above:Performed By: #### CMP, LIPASE, CBC ####[place] [address] [place] Mansiformerly [facility]erc[id number] USALipase [Enzymatic activity/volume] in Serum or PlasmaOrdered By: Yung Nichols on 26-19-5530Slvohp [Catalytic activity/Vol]19.0 U/RQbaoki43.0-82.0 [facility] HospitalComment on above:Result Comment: PERFORMED BY: [facility] [address] [place] [address] PATHOLOGIST CREPE BOX TENDER SAMANTHA VILLAR M.D.Performed By: #### CMP, LIPASE, CBC ####[place] [address] Amadoefren Nazarioformerly [facility] centercarson [id number] USALymphocytes [#/volume] in Blood by Automated countOrdered By: Yung Nichols on 33-41-8028Bbkjzntryso (Bld) [#/Vol]2.0 10*3/uLNormal1.00-4.8[facility] HospitalComment on above:Performed By: #### CMP, LIPASE, CBC ####[place] [address] Aneudy Espinoza [id number] USALymphocytes/100 leukocytes in Blood by Automated countOrdered By: Yung Nichols on 71-70-1039Zyystwjxyym/100 WBC (Bld) 27.4 %Normal.[facility] HospitalComment on above:Performed By: #### CMP, LIPASE, CBC ####[place] [address] [place], [place] [facility]H [Entitic mass] by Automated countOrdered By: Yung Nichols on 85-01-7098IDF (RBC) [Entitic mass]30.5 dlCjhbsv67.7-34.3 [facility] HospitalComment on above:Performed By: #### CMP, LIPASE, CBC ####[address] [id number] [facility] CITYHC Auto (RBC) [Mass/Vol]Ordered By: Yung Nichols on 56-98-3708IGWQ (RBC) [Mass/Vol]33.3 g/dL32.0-35.0[facility] HospitalMCV [Entitic volume] by Automated countOrdered By: Yung Nichols on 23-01-2029IYI (RBC) [Entitic vol]91.5 yAPucwtk56-135CvxesrsydSelect Medical Trihealth Rehabilitation HospitalComment on above:Performed By: #### CMP, LIPASE, CBC ####[address] [id number] USAMonocyte distribution width [Entitic volume] in Blood by AutomatedOrdered By: Yung Nichols on 70-83-0795Jhvojehy distribution width Auto (Bld) [Entitic vol]20.22 %High0.00-20.00[facility] HospitalComment on above:For adults in ED, MDW > 20.0 may be associated with a higher risk of sepsis during the first 12 hrs of hospital admissionMucus [Presence] in Urine by AutomatedOrdered By: Yung Nichols on 21-53-8254Kvhvl Auto Ql (U)4+ [LPF]AbnormalSelect Medical Trihealth Rehabilitation HospitalNeutrophils [#/volume] in Blood by Automated countOrdered By: Yung Nichols on 06-27-2024 Neutrophils (Bld) [#/Vol]4.6 10*3/uLNormal1.8-7.7FPremier Health Miami Valley HospitalComment on above:Performed By: #### CMP, LIPASE, CBC ####[facility] [facility], [place] USANitrite Test strip Ql (U)Ordered By: Yung Nichols on 23-11-4980Tbggkvd Ql (U)NegativeNegative [facility] HospitalNo Panel InformationOrdered By: Yung Nichols on 37-85-5482Mfkoyvsny GFR (CKD-EPI)> 60.0 mL/MinSelect Medical Trihealth Rehabilitation HospitalPharmacy Creatinine Clearance (Zduw913.39[facility] Nucleated erythrocytes [Presence] in Blood by Automated countOrdered By: Yung Nichols on 23-78-7767Xitzejwlv RBC Auto Ql (Bld)0.2 /100{WBC}0-0.5FPremier Health Miami Valley HospitalPlatelet mean volume [Entitic volume] in Blood by Automated countOrdered By: Yung Nichols on 04-75-6507Wtycrqui mean volume (Bld) [Entitic vol]8.0 fLNormal6.3-10.7FPremier Health Miami Valley HospitalComment on above:Performed By: #### CMP, LIPASE, CBC ####[place] [address] [facility] [id number] USAPlatelets [#/volume] in Blood by Automated countOrdered By: uYng Nichols on 65-22-7697Vbmsyxbos (Bld) [#/Vol]201 10*3/uL Rocvtk531-831VhcbpdvtpSelect Medical Trihealth Rehabilitation HospitalComment on above:Performed By: #### CMP, LIPASE, CBC ####[place] [address] [facility] Systemche[facility] [id number] USAPotassium [Moles/volume] in Serum or PlasmaOrdered By: Yung Nichols on 70-53-6282Zraqbjiyr [Moles/Vol]3.4 mmol/LLow3.5-5.1 [facility] HospitalComment on above:Performed By: #### CMP, LIPASE, CBC ####[place] [address] [facility] [id number] USAProtein Test strip (U) [Mass/Vol]Ordered By: Yung Nichols on 06-27-2024 Protein (U) [Mass/Vol]NegativeNegativeSelect Medical Trihealth Rehabilitation HospitalProtein [Mass/volume] in Serum or PlasmaOrdered By: Yung Nichols on 57-62-6342Ompqyqj [Mass/Vol]6.4 g/dLNormal6.4-8.9[facility] HospitalComment on above:Performed By: #### CMP, LIPASE, CBC ####[address] USASerum globulin measurement by calculation (mass/volume)Ordered By: Yung Nichols on 58-64-7166Ioqhqwju (S) [Mass/Vol]2.2 g/dLNormHolmes County Joel Pomerene Memorial HospitalComment on above:Performed By: #### CMP, LIPASE, CBC ####[address] [address] USASerum or plasma albumin/globulin mass ratioOrdered By: Yung Nichols on 12-59-5576Htehecp/Globulin [Mass ratio]1.9 {ratio}NormalSelect Medical Trihealth Rehabilitation HospitalComment on above:Performed By: #### CMP, LIPASE, CBC ####[address] USASerum or plasma anion gap determinationOrdered By: Yung Nichols on 69-68-6718Hvird gap [Moles/Vol] 10.6 mmol/LNormal6.0-15.0[facility] HospitalComment on above: Performed By: #### CMP, LIPASE, CBC ####[address] USASodium [Moles/volume] in Serum or PlasmaOrdered By: Yung Nichols on 48-87-0711Hxihgu [Moles/Vol]139 mmol/PQsgcbr251-904NyhhoztmsSelect Medical Trihealth Rehabilitation HospitalComment on above:Performed By: #### CMP, LIPASE, CBC ####[address] USASpecific gravity Test strip (U) [Rel density]Ordered By: Yung Nichols on 06-27-2024 Specific gravity (U) [Rel density]1.0261.001-1.030[facility] HospitalUrea nitrogen [Mass/volume] in Serum or PlasmaOrdered By: Yung Nichols on 10-57-4507Vask nitrogen [Mass/Vol]17 mg/dLNormal7-25[facility] HospitalComment on above:Performed By: #### CMP, LIPASE, CBC ####[facility] [address] [place], [place] USAUrine Cultureon 02-52-7274Kuiddrxh identified Cx Nom (U)75,000 colonies/ml mixed bacterial skin contaminants 2 Days PERFORMED BY: [facility] [address] [place] [address] PATHOLOGIST CREPE BOX TENDER SAMANTHA VILLAR M.D.NormalHca Florida Jfk Hospital Physician GroupComment on above:Performed By: #### FS #### [facility] [address] #### GCCHLAMAMP #### [facility] ,Urine appearanceOrdered By: Yung Nichols on 99-85-2763Fasnigkohq (U)Clear NormalCleUniversity Hospitals Samaritan Medical CenterComment on above:Order Comment: SOURCE OF SPECIMEN: GenitalPerformed By: #### FS #### [facility] [address] [place] [address] #### GCCHLAMAMP #### [facility] ,Urobilinogen Test strip (U) [Mass/Vol]Ordered By: Yung Nichols on 06-27-2024 Urobilinogen (U) [Mass/Vol]Normal mg/dLNormalSelect Medical Trihealth Rehabilitation HospitalpH of Urine by Test stripOrdered By: Yung Nichols on 98-72-0979aA (U)6.0 [pH] Normal5.0-9.0[facility] HospitalComment on above:Order Comment: SOURCE OF SPECIMEN: GenitalPerformed By: #### FS #### [facility] [address] [place] [address] [place] #### GCCHLAMAMP #### [facility] ,TBH PREG QUANT HCGon 06-75-4830UEX QUANTITATIVE<1mIU/mLNOMS HealthcareComment on above:5-50 0.2-1 WEEK 50-500 1-2 WEEKS 100-5,000 2-3 WEEKS 500-10,000 3-4 WEEKS 1,000-50,000 4-5 WEEKS 10,000-100,000 5-6 WEEKS 15,000-200,000 6-8 WEEKS 10,000-100,000 2-3 MONTHS [facility] 70-89-4267MZACUpbfce Visit (PODIAM) CHARIS ALLEN ([id number]) 4 F Date Time Provider Department 12/26/23 5:00 PM ARLET DELGADO During your visit today, we recorded the following information about you: Arlet Delgado DPM 12/26/2023 7:40 PM Signed Service [...] the overlying eponychium and underlying nailbed. An Maltese anvil was used to cut the offending [...] Sign In: A Mome (more content not included)...NormalNewark HospitalOVon 22-77-4890QKKQJrhgjj Visit (PODIAM) CHARIS ALLEN ([id number]) 4 F Date Time Provider Department 11/21/23 2:15 PM ARLET DELGADO During your visit today, we recorded the following information about you: Last Period 11/06/23 Arlet Delgado DPM 11/21/2023 3:03 PM Signed Service Date: November 21, 2023 PCP: No primary care provider on file. Last Podiatry Visit: None at [facility] The history is provided by the [...] order to perform a complete physical exam, [id number] was performed. This incidental service is integral [...] Olga Thompson MA acting as scribe for Arlet Delgado DPM. November 21, 2023 2:40 PM I spent 22 minutes on the date of the service which included preparing to see the patient, elya-yn-nwjc patient care, completing clinical documentation, obtaining and/or reviewing separately obtained history, performing a medically appropriate examination, counseling and educating the patient/family/caregiver, ordering medications, tests, or procedures and care mission coordinator (more content not included)...NormalLake County Memorial Hospital - WestA1C with Estimated Average Gluon 31-11-7129HkU4a (Bld) [Mass fraction]5.000 %Normal4.3-5.6 %Coaxis Other HbA1c (Bld) [Mass fraction]97 mg/dLNofreeman [facility] [employer] Other Alanine aminotransferase [Enzymatic activity/volume] in Serum or PlasmaOrdered By: Pérez Barcenas on 24-44-3138TNU [Catalytic activity/Vol]15 U/L7-52[facility] HospitalAlbumin [Mass/volume] in Serum or Plasma by Bromocresol green (BCG) dye binding methoOrdered By: Pérez Barcenas on 98-90-1712Nezzhes BCG dye [Mass/Vol]4.3 g/dL3.5-5.7FPremier Health Miami Valley HospitalAlkaline phosphatase [Enzymatic activity/volume] in Serum or PlasmaOrdered By: Pérez Barcenas on 99-91-2720ZAG [Catalytic activity/Vol]80 U/L 34-104[facility] Rehabilitation HospitalAspartate aminotransferase [Enzymatic activity/volume] in Serum or PlasmaOrdered By: Pérez Barcenas on 58-23-4965BIB [Catalytic activity/Vol]14 U/E50-70JtfikkpauSelect Medical Trihealth Rehabilitation Hospital Bilirubin.total [Mass/volume] in Serum or PlasmaOrdered By: Pérez Barcenas on 25-66-1708Pppbgwzud [Mass/Vol]0.8 mg/dL0.3-1.0[facility] Calcium [Mass/volume] in Serum or PlasmaOrdered By: Pérez Barcenas on 11-08-2023 Calcium [Mass/Vol]9.7 mg/dL8.6-10.3FPremier Health Miami Valley HospitalCarbon dioxide, total [Moles/volume] in Serum or PlasmaOrdered By: Pérez Barcenas on 49-02-0057HG5 [Moles/Vol]29.4 mmol/L21.0-31.0[facility] Chloride [Moles/volume] in Serum or PlasmaOrdered By: Pérez Barcenas on 11-08-2023 Chloride [Moles/Vol]105 mmol/R56-942OjpvhihnoSelect Medical Trihealth Rehabilitation HospitalCholesterol [Mass/volume] in Serum or PlasmaOrdered By: Pérez Barcenas on 11-08-2023 Cholesterol [Mass/Vol]128 mg/sM828-079XamuwshkmSelect Medical Trihealth Rehabilitation HospitalComment on above:Chol less than 200 mg/dl low riskChol 201-239 mg/dl borderline riskChol 240 mg/dl and greater high riskCholesterol in LDL Calc [Mass/Vol]Ordered By: Pérez Barcenas on 54-02-6667Spkgcxrwsej in LDL [Mass/Vol]70 mg/dL0-100[facility] Rehabilitation HospitalComment on above:LDL ATP III CLASSIFICATIONLDL less than 100 mg/dL OptimalLDL 100-129 mg/dL Near or above xotscdhDKD685-679 mg/dL Borderline highLDL 160-189 mg/dL HighLDL greater than 189 mg/dL Very high Cholesterol in VLDL Calc [Mass/Vol]Ordered By: Pérez Barcenas on 11-08-2023 Cholesterol in VLDL [Mass/Vol]10 mg/dLSelect Medical Trihealth Rehabilitation Hospital Comprehensive Metabolic Panelon 67-01-6460Elhoihq [Mass/Vol]4.419604 g/dLNormal 3.5-5.7 g/dLCoaxis Other Bilirubin [Mass/Vol]0.0472281 mg/dLNormal0.3-1.0 mg/dL [employer] Other Calcium [Mass/Vol]9.3932880 mg/dLNormal8.6-10.3 mg/dL [employer] Other CO2 [Moles/Vol]29.68840191 mmol/CJelxxp07.0-31.0 mmol/LNM-DAQ Other Creatinine [Mass/Vol]0.60994365 mg/dLNormal0.60-1.20 mg/dLCoaxis Other GFR/1.73 sq M.predicted MDRD (S/P/Bld) [Vol rate/Area] mL/min/{1.73_m2}Co[facility] Other Potassium [Moles/Vol]4.23026983 mmol/LNormal3.5-5.1 mmol/LNM-DAQ Other Protein [Mass/Vol]6.196247 g/dLNormal6.4-8.9 g/dLCoaxis Other Comprehensive Metabolic Panel2.2 g/dLCoaxis Other Creatinine [Mass/volume] in Serum or PlasmaOrdered By: Pérez Barcenas on 77-24-0092Ngplfmsiwn [Mass/Vol]0.68 mg/dL0.60-1.20[facility] Rehabilitation HospitalGlobulin Calc (S) [Mass/Vol]Ordered By: Pérez Barcenas on 05-08-4069Ddsrocok (S) [Mass/Vol]2.2 g/dLSelect Medical Trihealth Rehabilitation Hospital Glucose [Mass/volume] in Serum or PlasmaOrdered By: Pérez Barcenas on 11-08-2023 Glucose [Mass/Vol]80 mg/sG72-604PwgbznttfSelect Medical Trihealth Rehabilitation HospitalComment on above:ADA recommended reference rangeRandom Glucose Reference Range is dependent on time and content of last meal. Glucose of more than 200 mg/dL in a nonstressed, ambulatory subject supports the diagnosisof Diabetes Mellitus. Glucose mean value [Mass/volume] in Blood Estimated from glycated hemoglobin Ordered By: Pérez Barcenas on 58-69-0262Qihwaxg glucose Estimated from glycated hemoglobin (Bld) [Mass/Vol]97 mg/dLSelect Medical Trihealth Rehabilitation HospitalHemoglobin A1c percentageOrdered By: Pérez Barcenas on 89-26-9820TeW8f (Bld) [Mass fraction] 5.0 %4.3-5.6FPremier Health Miami Valley HospitalComment on above:Increased risk for diabetes: 5.7 - 6.4diabetes: >6.4glycemic control for adults with diabetes: &l t;7.0Lipid Panelon 59-25-7856Emlhzvcyxeg in LDL Elph Qn70 mg/dLNormal0-100 mg/dL Coaxis Other Lipid Panel54 mg/dLNormal0-149 mg/dLSantech Unique [employer]guides Other Lipid Panel10 mg/dLSimply Hired [employer] Other No Panel InformationOrdered By: Pérez Barcenas on 81-74-0358Jcvgdwmmp GFR (CKD-EPI)> 60.0 mL/MinSelect Medical Trihealth Rehabilitation Hospital Pharmacy Creatinine Clearance (ChemN/AFPremier Health Miami Valley HospitalPotassium [Moles/volume] in Serum or PlasmaOrdered By: Pérez Barcenas on 20-32-2770Dctwpudao [Moles/Vol]4.3 mmol/L3.5-5.1FPremier Health Miami Valley HospitalProtein [Mass/volume] in Serum or PlasmaOrdered By: Pérez Barcenas on 73-97-5388Jpoupuk [Mass/Vol]6.5 g/dL6.4-8.9Access Hospital Daytonerum or plasma albumin/globulin mass ratioOrdered By: Pérez Barcenas on 11-08-2023 Albumin/Globulin [Mass ratio]2.0 {ratio}[facility] Hospital Daytonerum or plasma anion gap determinationOrdered By: Pérez Barcenas on 87-22-1983Fmfhh gap [Moles/Vol]8.9 mmol/L6.0-15.0Access Hospital Daytonerum or plasma high density lipoprotein (HDL) cholesterol measurementOrdered By: Pérez Barcenas on 25-95-8061Tcqetfgjxtg in HDL [Mass/Vol]47 mg/vN09-21DdgqqpmarSelect Medical Trihealth Rehabilitation HospitalComment on above:HDL CHOL ATP-III CLASSIFICATION Cardiovascular RiskHDL > or equal to 60 mg/dL LOWHDL < 40 mg/dL HIGHSerum or plasma total cholesterol/high density lipoprotein (HDL) cholesterol mass ratOrdered By: Pérez Barcenas on 30-01-0884Ftbuxerjedh.total/Cholesterol in HDL [Mass ratio]2.7 {ratio}<5.0Access Hospital Daytonodium [Moles/volume] in Serum or PlasmaOrdered By: Pérez Barcenas on 54-92-8307Takxjg [Moles/Vol]139 mmol/D857-699 [facility] HospitalThyroid Stimulating Hormoneon 24-16-4142ZYE Qn 1.95453645122 m[IU]/LNormal0.45-5.33 u[iU]/[facility] [employer] Other Thyrotropin [Units/volume] in Serum or PlasmaOrdered By: Pérez Barcenas on 30-24-8404KBF Qn1.24 m[IU]/L0.45-5.33[facility] HospitalTriglyceride [Mass/volume] in Serum or PlasmaOrdered By: Pérez Barcenas on 20-33-3049Tcgechbnbszd [Mass/Vol]54 mg/dL0-149[facility] Rehabilitation HospitalComment on above:TRIG ATP III CLASSIFICATIONTRIG less than 150 mg/dL NormalTRIG 150-199 mg/dL Borderline highTRIG 200-500 mg/dL High TRIG greater than 500 mg/dL Very highStandard traceable to the Center for Disease Co nrtrol and Prevention (CDC) test method.Urea nitrogen [Mass/volume] in Serum or PlasmaOrdered By: Pérez Barcenas on 74-59-4649Rtco nitrogen [Mass/Vol]13 mg/dL7-25 [facility] HospitalErythrocyte distribution width Auto (RBC) [Ratio]Ordered By: ERLIN Vann on 29-20-6990Vtwmbxiaizx distribution width (RBC) [Ratio]14.4 %11.9-15.3FPremier Health Miami Valley HospitalHematocrit Auto (Bld) [Volume fraction]Ordered By: ERLIN Vann on 08-17-2023 Hematocrit (Bld) [Volume fraction]35.2 %34.0-46.4FPremier Health Miami Valley HospitalHemoglobin [Mass/volume] in BloodOrdered By: ERLIN Vann on 75-59-8446Dhrlzidstc (Bld) [Mass/Vol]11.7 g/dL11.8-15.4FPremier Health Miami Valley HospitalLeukocytes [#/volume] corrected for nucleated erythrocytes in Blood by Automated counOrdered By: ERLIN Vann on 68-42-8501COU corrected for nucl RBC Auto (Bld) [#/Vol]8.0 10*3/uL3.8-11.6FMemorial Hospital Auto (RBC) [Entitic mass]Ordered By: ERLIN Vann on 75-31-1061FCU (RBC) [Entitic mass]29.8 pg24.7-34.3FPremier Health Miami Valley HospitalMCHC Auto (RBC) [Mass/Vol]Ordered By: ERLIN Vann on 08-17-2023 MCHC (RBC) [Mass/Vol]33.3 g/dL32.0-35.0[facility] HospitalMCV Auto (RBC) [Entitic vol]Ordered By: ERLIN Vann on 68-26-6287CVR (RBC) [Entitic vol]89.6 mM01-953WvuiusjvsSelect Medical Trihealth Rehabilitation HospitalPlatelet mean volume Auto (Bld) [Entitic vol]Ordered By: ERLIN Vann on 45-46-3978Hcwokdue mean volume (Bld) [Entitic vol]8.1 fL6.3-10.7FPremier Health Miami Valley Hospital Platelets Auto (Bld) [#/Vol]Ordered By: ERLIN Vann on 08-17-2023 Platelets (Bld) [#/Vol]186 10*3/gI092-627AyppkqwqxSelect Medical Trihealth Rehabilitation HospitalRBC Auto (Bld) [#/Vol]Ordered By: ERLIN Vann on 28-76-3326TYR (Bld) [#/Vol]3.93 10*6/uL3.60-5.00[facility] Rehabilitation HospitalCNPNon 08-16-2023 CNPNTelephone (INTMAL) CHARIS ALLEN ([id number]) 4 F Date Time Provider Department 08/16/23 FORTINO ALCARAZ During your visit today, we recorded the following information about you: Lauren Larson 08/16/2023 9:00 AM Signed Charis Allen is calling Fortino Alcaraz MD today with concern regarding a cancelled procedure back in July 2023. Patient is looking to reschedule. Please call patient to advise. Patient has been identified by name and birthdate. Duration of symptoms: N/A Person calling: self Call patient at: at home [phone] (home) [phone] (cell) Was an appointment scheduled: No Closing statement: Results or non-symptom based questions: Thank you for calling [facility], your call will be returned within the next business day. Thank you, Yesenia Rao LPN 08/21/2023 3:14 PM Signed Patient [...] Fully Assessed Reason for Visit: Patient Question [[id number]] Prescriptions as of 08/21/2023 - Sulfacetamide Sodium-Sulfur [...] right ear [H93.11] 09/15/2022 Encounter Status:Closed by YESENIA HERNÁNDEZ LPN on 08/21/23NoMemorial Health SystemBILIRUBIN CONJUGATED (DIRECT)on 34-44-0541HPTP, CONJUGATED0.2 mg/dLNormal0.0-0.2The [facility] HospitalComment on above:Performed By: #### DBIL, CMP #### [facility] [address] [place] [address] Dr. Yvette Zhao 14(COMP METB)on 38-09-4303Ccnykoq [Mass/Vol]4.1 g/dLNormal 3.4-5.0The [facility] HospitalComment on above:Performed By: #### DBIL, CMP #### [facility] [address] [place] [address] Dr. Yvette OharaAlbumin/Globulin [Mass ratio]1.3 {ratio}NormalThe [facility] HospitalComment on above:Performed By: #### DBIL, CMP #### [facility] [address] [place] [address] Dr. Yvette Awad [Catalytic activity/Vol]122 U/LCritically hphw87-872Fox [facility] HospitalComment on above:Performed By: #### DBIL, CMP #### [facility] [address] [place] [address] Dr. Yvette Mora [Catalytic activity/Vol]38 U/WVwruqn46-20Fwk [facility] HospitalComment on above:Performed By: #### DBIL, CMP #### [facility] [address] [place] [address] Dr. Yvette Hernández gap [Moles/Vol]13.9 mmol/LNormalThe [facility] Comment on above:Performed By: #### DBIL, CMP #### [facility] [address] [place] [address] Dr. Yvette Arias [Catalytic activity/Vol]20 U/EAbmcme61-95Ofb [facility] HospitalComment on above:Performed By: #### DBIL, CMP #### [facility] [address] [place] [address] Dr. Yilan ChangBilirubin [Mass/Vol]0.9 mg/dLNormal0.2-1.0The [facility] Comment on above:Performed By: #### DBIL, CMP #### [facility] [address] [address] [address] Yvette OharaCalcium [Mass/Vol]9.2 mg/dLNormal8.5-10.1The [facility] Comment on above:Performed By: #### DBIL, CMP #### [facility] [address] [address] [address] Yvette OharaChloride [Moles/Vol]107 mmol/QWfnlvt33-953Cof [facility] Comment on above:Performed By: #### DBIL, CMP #### [facility] [address] [place] [address] Dr. Yvette OharaCO2 [Moles/Vol]26.9 mmol/XRdbqwa25.0-32.0The [facility] Comment on above:Performed By: #### DBIL, CMP #### [facility] [address] [place] [address] Dr. Yvette OharaCreatinine [Mass/Vol]0.87 mg/dLNormal0.55-1.02The [facility] HospitalComment on above:Performed By: #### DBIL, CMP #### [facility] [address] [place] [address] Dr. Yvette KleinGFR-AF CONGOLESE>60Normal>=60The [facility] HospitalComment on above:Performed By: #### DBIL, CMP #### [facility] [address] [place] [address] Dr. Yvette KleinGFR-NON AF CONGOLESE>60Normal>=60The [facility] HospitalComment on above:Performed By: #### DBIL, CMP #### [facility] [address] [place] [address] Dr. Yvette OharaGlobulin (S) [Mass/Vol]3.2 g/dLNormalThe [facility] HospitalComment on above:Performed By: #### DBIL, CMP #### [facility] [address] [address] [address] Yvette OharaGlucose [Mass/Vol]141 mg/dLCritically rkgd55-632Dfr [facility] HospitalComment on above:Performed By: #### DBIL, CMP #### [facility] [address] [address] [address] Yvette OharaPotassium [Moles/Vol]3.8 mmol/LNormal3.5-5.1The [facility] Comment on above:Performed By: #### DBIL, CMP #### [facility] [address] [address] [address] Yvette OharaProtein [Mass/Vol]7.3 g/dLNormal6.4-8.2The [facility] Comment on above:Performed By: #### DBIL, CMP #### [facility] [address] [address] [address] Yvette OharaSodium [Moles/Vol]144 mmol/SAibmbk305-686Qdh [facility] Comment on above:Performed By: #### DBIL, CMP #### [facility] [address] [address] [address] Yvette OharaUrea nitrogen [Mass/Vol]9.0 mg/dLNormal7.0-18.0The [facility] HospitalComment on above:Performed By: #### DBIL, CMP #### [facility] [address] [address] [address] Yvette OharaUrea nitrogen/Creatinine [Mass ratio]10.3 mg/mgNormalThe [facility] HospitalComment on above:Performed By: #### DBIL, CMP #### [facility] [address] [address] [address] Yvette Chu 85-75-6426GOBMXLU LIKE GROWTH FACTOR H160RdszKyipzOhioHealth Dublin Methodist HospitalComment on above:Result Comment: Reference range: 108 to 384 Unit: ng/mL (NOTE) [...] 10 years 85 - 526 PERFORMED AT LABCOASTRA HEALTH CENTERPerformed By: #### LIGF1 #### Testing performed at [facility], [facility] CORTISOLon 81-03-9601Aryxiodf Cortisol, MS0.021 ug/dLNormalThWooster Community HospitalComment on above:Result Comment: This test was developed and its performance characteristics determined by [facility]. It has not been cleared or approved by the Food and Drug Administration. Reference Range: Children and Adults: 8:00a.m.: 0.025 - 0.600 Noon: <0.010 - 0.330 4:00p.m.: 0.010 - 0.200 Midnight: <0.010 - 0.090Performed By: #### JESSICA CHAVEZ #### [facility] [address] [place] [address] Dr. Yvette OharaTESTOSTERONE, FREE,DIRECT, TOTALon 86-76-4110Hiqy Testosterone(Direct)2.4 pg/mLNormal0.0-4.2[facility] HospitalComment on above: Result Comment: Performed at: BNPerformed By: #### TESTFRD #### [facility] [address] [address] [address] Yvette OharaTestosterone [Mass/Vol]41 ng/uFTekykh81-10Pno [facility] Comment on above:Result Comment: Performed at: CBPerformed By: #### TESTFRD #### [facility] [address] [address] [address] Yvette OharaDHEA-SULFATEon 78-33-9057HKJI-Nkiepwh571.0 ug/bFGpnmkx214.0-431.7 The [facility] HospitalComment on above:Performed By: #### KATHY JESSICA #### [facility] [address] [place] [address] Dr. Yvette OharaINSULINon 23-83-5101Smjtzas14.6 uIU/mLNormal2.6-24.9The [facility] HospitalComment on above:Performed By: #### CMP, JESSICA #### [facility] [address] [place] [address] Dr. Yvette OharaGLYCOHEMOGLOBIN A1Con 99-82-9077PPC RECOMMENDATIONSEE BELOWNormal The [facility] HospitalComment on above:Result Comment: ADA RECOMMENDED LIMIT 4.0 - 6.0 ADA THERAPEUTIC TARGET < 7.0 ACTION SUGGESTED > 7.0Performed By: #### A1C #### [facility] [address] [place] [address] Dr. Yvette OharaGlucose [Mass/Vol]108 mg/dLNormalThe [facility] HospitalComment on above:Performed By: #### A1C #### [facility] [address] [place] [address] Dr. Yvette OharaHbA1c (Bld) [Mass fraction]5.4 %Normal4.5-6.2The [facility] HospitalComment on above:Performed By: #### A1C #### [facility] [address] [place] [address] Dr. Yvette OharaPROF 14(COMP METB)on 99-64-0714Rlcqimi [Mass/Vol]4.4 g/dLNormal 3.4-5.0The [facility] HospitalComformerly [facility] on above:Performed By: #### CMP, TSH, T4 #### [facility] [address] [place] [address] Dr. Yvette OharaAlbumin/Globulin [Mass ratio]1.3 {ratio}NormalThe [facility] on above:Performed By: #### CMP, TSH, T4 #### [facility] [address] [place] [address] Dr. Yvette GuerreroP [Catalytic activity/Vol]133 U/LCritically qxkw03-800Gck [facility] on above:Performed By: #### CMP, TSH, T4 #### [facility] [address] [place] [address] Dr. Yvette Mora [Catalytic activity/Vol]32 U/QAaogmi41-26Thf [facility] HospitalComment on above:Performed By: #### CMP, TSH, T4 #### [facility] [address] [address] [address] Yvette Marshon gap [Moles/Vol]12.9 mmol/LNormalWvumedicine Harrison Community Hospital Comment on above:Performed By: #### CMP, TSH, T4 #### [facility] [address] [address] [address] Yvette OharaAST [Catalytic activity/Vol]18 U/ZRwkgdy40-81Mdt [facility] HospitalComment on above:Performed By: #### CMP, TSH, T4 #### [facility] [address] [place] [address] Dr. Yvette OharaBilirubin [Mass/Vol]1.2 mg/dLCritically high0.2-1.0The [facility] HospitalComment on above:Performed By: #### CMP, TSH, T4 #### [facility] [address] [place] [address] Dr. Yvette OharaCalcium [Mass/Vol]9.5 mg/dLNormal8.5-10.1[facility] Comment on above:Performed By: #### CMP, TSH, T4 #### [facility] [address] [place] [address] Dr. Yvette OharaChloride [Moles/Vol]106 mmol/IYrcirf11-896NceWvumedicine Harrison Community Hospital Comment on above:Performed By: #### CMP, TSH, T4 #### [facility] [address] [place] [address] Dr. Yvette OharaCO2 [Moles/Vol]28.0 mmol/FXutkva17.0-32.0[facility] Comment on above:Performed By: #### CMP, TSH, T4 #### [facility] [address] [place] [address] Dr. Yvette OharaCreatinine [Mass/Vol]0.85 mg/dLNormal0.55-1.02The [facility] HospitalComment on above:Performed By: #### CMP, TSH, T4 #### [facility] [address] [address] [address] Yvette KleinGFR-AF CONGOLESE>60Normal>=60The [facility] HospitalComment on above:Performed By: #### CMP, TSH, T4 #### [facility] [address] [place] [address] Dr. Yvette KleinGFR-NON AF CONGOLESE>60Normal>=60The [facility] HospitalComment on above:Performed By: #### CMP, TSH, T4 #### [facility] [address] [place] [address] Dr. Yvette OharaGlobulin (S) [Mass/Vol]3.3 g/dLNormalThe [facility] HospitalComment on above:Performed By: #### CMP, TSH, T4 #### [facility] [address] [place] [address] Dr. Yvette OharaGlucose [Mass/Vol]98 mg/fFLormto38-012JqfWvumedicine Harrison Community Hospital Comment on above:Performed By: #### CMP, TSH, T4 #### [facility] [address] [place] [address] Dr. Yvette OharaPotassium [Moles/Vol]3.9 mmol/LNormal3.5-5.1[facility] Comment on above:Performed By: #### CMP, TSH, T4 #### [facility] [address] [place] [address] Dr. Yvette OharaProtein [Mass/Vol]7.7 g/dLNormal6.4-8.2[facility] Comment on above:Performed By: #### CMP, TSH, T4 #### [facility] [address] [place] [address] Dr. Yvette OharaSodium [Moles/Vol]143 mmol/WZookfq778-688UvgWvumedicine Harrison Community Hospital Comment on above:Performed By: #### CMP, TSH, T4 #### [facility] [address] [place] [address] Dr. Yvette OharaUrea nitrogen [Mass/Vol]13.0 mg/dLNormal7.0-18.0The [facility] HospitalComment on above:Performed By: #### CMP, TSH, T4 #### [facility] [address] [address] [address] Yvette OharaUrea nitrogen/Creatinine [Mass ratio]15.3 mg/mgNormalThe [facility] HospitalComment on above:Performed By: #### CMP, TSH, T4 #### [facility] [address] [place] [address] Dr. Yvette OharaT4on 24-88-1252X5 [Mass/Vol]5.90 ug/dLNormal4.80-13.90The [facility] HospitalComformerly [facility] on above:Performed By: #### CMP, TSH, T4 #### [facility] [address] [place] [address] Dr. Yvette OharaTSHogarima 56-00-9762PAS4.277 uIU/mLNormal0.358-3.740The [facility] HospitalComformerly [facility] on above:Performed By: #### CMP, TSH, T4 #### [facility] [address] [place] [address] Dr. Yvette Ohara Brain WO and W contrast [place] 87-72-4519GGWSCTSEHV: Low-lying cerebellar tonsils with slight crowding at the foramen magnum. Age-appropriate unremarkable remaining brain without acute findings or abnormal enhancement. CSF flow study, as detailed. Web Content Director: FANTA Transcribe Date/Time: Nov 16 2022 9:19A Dictated by : ALIYA CROCKER MD This examination was interpreted and the report reviewed and electronically signed by: ALIYA CROCKER MD on Nov 16 2022 9:23AM [facility] DIVISION OF RADIOLOGY* * *Final Report* * * DATE OF EXAM: Nov 16 2022 8:55AM [facility] 0295 - MRI BRAIN WO/W [...] extracranial soft tissues are unremarkable. DIVISION OF RADIOLOGYProvider, [facility] [place] - 11/16/2022 * * *Final Report* * * DATE OF EXAM: Nov 16 2022 8:55AM [facility] 0295 - MRI BRAIN WO/W [...] abnormal enhancement. CSF flow study, as detailed. Web Content Director[facility] Transcribe Date/Time: Nov 16 2022 9:19A Dictated by : ALIYA CROCKER MD This examination was interpreted and the report reviewed and electronically signed by: ALIYA CROCKER MD on Nov 16 2022 9:23AM EST [facility] HospitalRadiology [facility] observation (narrative)[facility] Brain WO and W contrast IVOrdered By: Ccf Provider on 70-99-0024Cumuzyelf ClinicCT Abdomen/Pelvis w/o Contraston [id number] Abdomen/Pelvis w/o ContrastCLINICAL HISTORY: Right lower quadrant pain for 2-3 [...] pole. Report reported and signed by Mayo Rebeca on 10/31/2022 1542NormalNorthern [facility] SpecialistAMYLASEon 80-79-6206Kccdevx [Catalytic activity/Vol]32 U/EWbzwti53-774Htb [facility] HospitalComment on above:Performed By: #### CMP, JESSICA #### [facility] [address] [place] [address] Dr. Yvette Patel AUTO DIFFon [id number] #0.0 103/ulNormal0.0-0.1The [facility] HospitalComment on above:Performed By: #### CBC #### [facility] [address] [place] [address] Dr. Yvette Gipsonsophils/100 WBC (Bld)0.4 %Normal0.2-2.0The [facility] Comment on above:Performed By: #### CBC #### [facility] [address] [place] [address] Dr. Yvette Braxton #0.0 103/ulNormal0.0-0.7The [facility] HospitalComment on above: Performed By: #### CBC #### [facility] [address] [address] [address] Yvette Kleinosinophils/100 WBC (Bld)0.4 %Critically low0.9-7.0The [facility] HospitalComment on above:Performed By: #### CBC #### [facility] [address] [place] [address] Dr. Yvette Kleinrythrocyte distribution width (RBC) [Ratio]12.1 %Nacxds62.0-15.0 The [facility] HospitalComment on above:Performed By: #### CBC #### [facility] [address] [place] [address] Dr. Yvette OharaHematocrit (Bld) [Volume fraction]50.0 %Critically high36.0-48.0 The [facility] HospitalComment on above:Performed By: #### CBC #### [facility] [address] [place] [address] Dr. Yvette OharaHemoglobin (Bld) [Mass/Vol]15.1 g/nXVqxcmh06.0-16.0The [facility] HospitalComment on above:Performed By: #### CBC #### [facility] [address] [place] [address] Dr. Yvette OharaIG #0.02 10e3/ulNormal0.00-0.03The [facility] HospitalComment on above:Performed By: #### CBC #### [facility] [address] [place] [address] Dr. Yvette OharaIG %0.3 %Normal0.0-0.5The [facility] HospitalComment on above: Performed By: #### CBC #### [facility] [address] [place] [address] Dr. Yvette Pena #2.1 103/ulNormal1.2-3.8The [facility] HospitalComment on above:Performed By: #### CBC #### [facility] [address] [place] [address] Dr. Yvette Hamlinmphocytes/100 WBC (Bld)28.7 %Zftlen86.5-60.0The [facility] HospitalComment on above:Performed By: #### CBC #### [facility] [address] [place] [address] Dr. Yvette OharaMANUAL DIFF REQNONormalThe [facility] HospitalComment on above: Performed By: #### CBC #### [facility] [address] [place] [address] Dr. Yvette Romo (RBC) [Entitic mass]29.4 iwLhkrgq42.7-34.0The [facility] HospitalComment on above:Performed By: #### CBC #### [facility] [address] [place] [address] Dr. Yvette MolinaHC (RBC) [Mass/Vol]30.2 g/mWYfdzvq93.9-35.2The [facility] HospitalComment on above:Performed By: #### CBC #### [facility] [address] [place] [address] Dr. Yvette MolinaV (RBC) [Entitic vol]97.5 aBGokrsj23.0-99.0The [facility] HospitalComment on above:Performed By: #### CBC #### [facility] [address] [place] [address] Dr. Yvette Blakely #0.6 103/ulNormal0.3-0.8The [facility] HospitalComment on above:Performed By: #### CBC #### [facility] [address] [place] [address] Dr. Yvette De Lunaocytes/100 WBC (Bld)7.8 %Normal1.7-12.0The [facility] Comment on above:Performed By: #### CBC #### [facility] [address] [place] [address] Dr. Yvette Tobar #4.5 103/ulNormal1.4-6.5The [facility] HospitalComment on above:Performed By: #### CBC #### [facility] [address] [place] [address] Dr. Yvette Straussutrophils/100 WBC (Bld)62.4 %Ntpruc32.0-75.0The [facility] HospitalComment on above:Performed By: #### CBC #### [facility] [address] [place] [address] Dr. Yvette Villagranlet mean volume (Bld) [Entitic vol]10.3 fLNormal9.5-13.5The [facility] HospitalComment on above:Performed By: #### CBC #### [facility] [address] [place] [address] Dr. Yvette OharaPLT242 103/ljKugecv724-589Ciq [facility] HospitalComment on above: Performed By: #### CBC #### [facility] [address] [address] [address] Yvette OharaRBC5.13 106/ulNormal4.20-5.40The [facility] HospitalComment on above:Performed By: #### CBC #### [facility] [address] [address] [address] Yvette OharaWBC7.2 103/ulNormal4.0-11.0The [facility] HospitalComment on above: Performed By: #### CBC #### [facility] [address] [place] [address] Dr. Yvette OharaPROF 14(COMP METB)on 90-38-9632Arihpgc [Mass/Vol]4.1 g/dLNormal 3.4-5.0The [facility] HospitalComment on above:Performed By: #### CMP, JESSICA #### [facility] [address] [place] [address] Dr. Yvette OharaAlbumin/Globulin [Mass ratio]1.3 {ratio}NormalThe [facility] HospitalComment on above:Performed By: #### CMP, JESSICA #### [facility] [address] [place] [address] Dr. Yvette Awad [Catalytic activity/Vol]117 U/LCritically rprj67-565Bso [facility] HospitalComment on above:Performed By: #### CMP, JESSICA #### [facility] [address] [place] [address] Dr. Yvette Mora [Catalytic activity/Vol]58 U/QPkkwhw77-67Qog [facility] HospitalComment on above:Performed By: #### CMP, JESSICA #### [facility] [address] [place] [address] Dr. Yvette Hernández gap [Moles/Vol]14.6 mmol/LNormalThe [facility] on above:Performed By: #### CMP, JESSICA #### [facility] [address] [place] [address] Dr. Yvette Arias [Catalytic activity/Vol]27 U/OGrjism60-29Frb [facility] HospitalComment on above:Performed By: #### CMP, JESSICA #### [facility] [address] [address] [address] Yvette OharaBilirubin [Mass/Vol]1.4 mg/dLCritically high0.2-1.0The [facility] HospitalComment on above:Performed By: #### CMP, JESSICA #### [facility] [address] [address] [address] Yvette OharaCalcium [Mass/Vol]9.1 mg/dLNormal8.5-10.1The [facility] Comment on above:Performed By: #### CMP, JESSICA #### [facility] [address] [address] [address] Yvette OharaChloride [Moles/Vol]104 mmol/DQkjcar80-685Yfe [facility] Comment on above:Performed By: #### CMP, JESSICA #### [facility] [address] [place] [address] Dr. Yvette OharaCO2 [Moles/Vol]26.0 mmol/CCoxaor58.0-32.0The [facility] Comment on above:Performed By: #### CMP, JESSICA #### [facility] [address] [address] [address] Yvette OharaCreatinine [Mass/Vol]0.92 mg/dLNormal0.55-1.02The [facility] HospitalComment on above:Performed By: #### CMP, JESSICA #### [facility] [address] [address] [address] Yvette KleinGFR-AF CONGOLESE>60Normal>=60The [facility] HospitalComment on above:Performed By: #### CMP, JESSICA #### [facility] [address] [address] [address] Yvette KleinGFR-NON AF CONGOLESE>60Normal>=60The [facility] HospitalComment on above:Performed By: #### CMP, JESSICA #### [facility] [address] [address] [address] Yvette OharaGlobulin (S) [Mass/Vol]3.1 g/dLNormalThe [facility] HospitalComment on above:Performed By: #### CMP, JESSICA #### [facility] [address] [address] [address] Yvette OharaGlucose [Mass/Vol]94 mg/fYXuythl57-164HsrWvumedicine [facility] Comment on above:Performed By: #### CMP, JESSICA #### [facility] [address] [place] [address] Dr. Yvette OharaPotassium [Moles/Vol]3.6 mmol/LNormal3.5-5.1[facility] Comment on above:Performed By: #### CMP, JESSICA #### [facility] [address] [place] [address] Dr. Yvette OharaProtein [Mass/Vol]7.2 g/dLNormal6.4-8.2[facility] Comment on above:Performed By: #### CMP, JESSICA #### [facility] [address] [place] [address] Dr. Yvette OharaSodium [Moles/Vol]141 mmol/NZnnuhx525-164BivWvumedicine [facility] Hospital Comment on above:Performed By: #### CMP, JESSICA #### [facility] [address] [place] [address] Dr. Yvette OharaUrea nitrogen [Mass/Vol]13.0 mg/dLNormal7.0-18.0[facility] HospitalComment on above:Performed By: #### CMP, JESSICA #### [facility] [address] [place] [address] Dr. Yvette OharaUrea nitrogen/Creatinine [Mass ratio]14.1 mg/mgNormalThe [facility] HospitalComment on above:Performed By: #### CMP, JESSICA #### [facility] [address] [place] [address] Dr. 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 [...] MRI: No Colonoscopy: Yes diagnostic, Date in [facility]: 07/2015; results - negative RISK FACTORS [...] may be repeated afte (more content not included)...NormalDale General HospitalT4 Free SerPl-mCncon 09-65-2814Ckkw T4 [Mass/Vol]0.8 ng/dLLow0.9-1.7FBristol [facility] Comment on above:Order Comment: Specimen Type: BLOOD SPECIMEN Ordering Facility: [facility] Address: [address] [place], [place] [id number] By: #### 3024-7 #### [facility] CLIA [id number] [facility] [address] SerPl-aCncon 10-13-2022 TSH Qn2.150 m[IU]/LNormal0.510-4.300Dale General HospitalComment on above:Order Comment: Specimen Type: BLOOD SPECIMEN Ordering Facility: [facility] Address: [address] [place], [place] [id number] Comment: If the patient is , TSH reference range varies by gestational period: First Trimester (weeks 9-12): 0.180-2.990 mIU/L Second Trimester: 0.110-3.980 mIU/L Third Trimester: 0.480-4.710 mIU/L Ángel Cervantes et al. A Practical Approach for the Verifications and Determination of Site- and Trimester-Specific Reference Intervals for Thyroid Function tests in . Thyroid, 2019:29:3:412-420.Prem E, et al. 2017 Guidelines of the [place] Thyroid Association for the Diagnosis and Management of Thyroid Disease during and the . Thyroid, 2017:27:3:315-389. Reference ranges were not locally established for this patient's age group. The normal values are based on the following source: Marlin W, Josh V. Reference Ranges for Adults and Children: Pre-analytical Considerations. [employer] EletrônicosPerformed By: #### 3016-3 #### [facility] CLIA [id number] [address] [place] [address] [place] VHXRLTWSAJB-JhE-5 (COVID-19) RNA JANET+probe Ql (Resp)on [id number]-CoV-2 (COVID-19) RNA JANET+probe Ql (Unsp spec)Negative Coaxis Other mr Brain WO and W contrast [place] 12-29-2021* * *Final Report* * * DATE OF [...] including diffusion and gradient echo images. 2-D umfw-tw-qofxmi MRV and postcontrast MRV of the brain. [...] signal and enhancement indicating patency. DIVISION OF RADIOLOGYProvider, [facility] [place] - 12/29/2021 * * *Final Report* * [...] including diffusion and gradient echo images. 2-D hjab-pg-nnykok MRV and postcontrast MRV of the brain. [...] No evidence of dural venous sinus thrombosis. Web Content Director: [facility] Transcribe Date/Time: Dec 29 2021 12:34P Dictated by : MILTON WAGNER MD This examination was interpreted and the report reviewed and electronically signed by: MILTON WAGNER MD on Dec 29 2021 12:40PM [facility] Head veins WO and W contrast [place] 12-29-2021* * *Final Report* * * DATE OF EXAM: Dec 29 2021 12:13PM [facility] 0336 - MRV BRAIN WO/W IVCON / PROCEDURE REASON: multiple diagnoses * * * * Physician Interpretation * * * * EXAMINATION: MRI BRAIN WO/W IVCON, MRV BRAIN WO/W IVCON HISTORY: [place] headache. Headache after Covid infection. TECHNIQUE: Routine brain MRI protocol without and with contrast including diffusion and gradient echo images. 2-D bcpp-ro-chhamz MRV and postcontrast MRV of the brain. [...] signal and enhancement indicating patency. DIVISION OF RADIOLOGYProvider, [facility] [place] - 12/29/2021 * * *Final Report* * [...] including diffusion and gradient echo images. 2-D wdvw-sa-qohhcg MRV and postcontrast MRV of the brain. [...] No evidence of dural venous sinus thrombosis. Web Content Director: [facility] Transcribe Date/Time: Dec 29 2021 12:34P Dictated by : MILTON WAGNER MD This examination was interpreted and the report reviewed and electronically signed by: MILTON WAGNER MD on Dec 29 2021 12:40PM [facility] Panel Informationon [id number]: MRI BRAIN: No evidence of an acute intracranial process. Low-lying cerebellar tonsils. MRV BRAIN: No evidence of dural venous sinus thrombosis. Web Content Director: [facility] Transcribe Date/Time: Dec 29 2021 12:34P Dictated by : MILTON WAGNER MD This examination was interpreted and the report reviewed and electronically signed by: MILTON WAGNER MD on Dec 29 2021 12:40PM [facility] DIVISION OF RADIOLOGYRadiology Study observation (narrative)[facility] Panel InformationOrdered By: Ccf Provider on 40-93-1717Pgciupdtt ClinicANKLE RIGHT 3 [facility] 44-49-1979PRCYS RIGHT 3 SUniKeenan Private HospitalDepartment of Uurduajhr[address] [place] [id number] Patien t Name: CHARIS ALLEN : 2000Sex: FAge: Race: WhiteMRN: [id number]. Location: EMERPatient Status: EVisit #: [id number] Date: 06/13/2017 5:40:00 PMCompleted Date: 06/13/2017 05:54 PMRequesting Provider: SREEKANTH JOHNSON Attending Provider: SREEKANTH JOHNSON Report Copy To: Signs & Symptoms: Pain ( specify Location)History: Patient history not availableComments: R/O FXExam: ANKLE RIGHT 3 VWSAccession #: [id number] ==ANKLE RIGHT 3 VWS 06/13/2017 5:54 PM EDT [...] effusion. IMPRESSION: No osseous abnormality. Electronically signed by:Manjinder Ramires M.D.. Transcribed by: [email or web address], User Resident: Electronically Signed by: MANJINDER RAMIRES @ 06/13/2017 06:44 [facility] HospitalComment on above:Order Comment: R/O FX Vital Signs Date TimeVital SignValuePerforming TbotgnklmEoddtwpt58-46-3521 10:39-0400Body .7 cmGeorge Alanis [employer] Work Phone: [employer] Iiebfcvfvl30-60-5878 10:39-0400Body mass index (BMI) [Ratio]25.7 kg/a9Hblfeemyles Thapa DO Work Phone: [employer] Qxiczuperw38-95-8707 10:39-0400Body temperature 97.81 [degF]Pete Thapa DO Work Phone: noReal Food BlendsFqpzjdckne69-69-2633 10:39-0400Body nfztca76.66 kgGeormyles Thapa [employer] Work Phone: noReal Food BlendsVehfnlzvgt45-77-1247 10:39-0400Diastolic blood ybvnjqqw96 mm[Hg]Pete Thapa [employer] Work Phone: noReal Food BlendsPlymftqcdz85-95-0982 10:39-0400Heart rate98 /min Pete Thapa [employer] Work Phone: 1([phone])625-[address] [place], [place] [address]Oxhqhrxmkk67-30-7329 10:39-6454GiH7% (BldA) [Mass fraction]99 %Pete Thapa DO Work Phone: 1([phone])[facility] [place], [place] [address]Fsesfsivyu41-28-2921 10:39-0400Systolic blood anrrqubd133 mm[Hg]Pete Thapa DO Work Phone: 1(313)[address] [place], [place] 1206309-02-2025 08:58-0400Body ahktwm419.7 Garrick Vann MD Work Phone: [phone])[address] [place], [place] 3894409-02-2025 08:58-0400Body mass index (BMI) [Ratio]25.39 kg/a1PmyleqGualberto Vann MD Work Phone: 1(591)[address] [place], [place] 3894409-02-2025 08:58-0400Body noenex76.75 kgGualberto Vann MD Work Phone: [phone])[address] [place], [place] 3894409-02-2025 08:58-0400Diastolic blood ukqecvol45 mm[Hg]Gualberto Vann MD Work Phone: 1([phone])[address] [place], [place] 3894409-02-2025 08:58-0400Systolic blood nitnjglf510 mm[Hg]Gualberto Vann MD Work Phone: [phone])[address] [place], [place] 3894405-13-2025 21:50-0400Diastolic blood syambkns16 mm[Hg]Katie Castillo Alanis DO Work Phone: 1([phone])[address] [place], [place] 7556905-13-2025 21:50-0400 Heart rate84 /Jahaira. Wesly Iniguezmagui DO Work Phone: 1(851)[address] [place], [place] 7[address]6905-13-2025 21:50-0400 Respiratory rate20 /Jahaira. Wesly Thapa DO Work Phone: 1(743)[address] [place], [place] 7[address]6905-13-2025 21:50-0400 SaO2% (BldA) [Mass fraction]98 %Katie Iniguezmagui DO Work Phone: 1(177)[address] [place], [place] 7556905-13-2025 21:50-0400 Systolic blood aqahhftv360 mm[Hg]Katie Castillo Alanis DO Work Phone: 1(651)[address] [place], [place] [address]556905-13-2025 19:45-0400 Body fwsndepcdkd75.4 [degF]GDia Thapa DO Work Phone: 1(283)393-[address] [place], [place] 6287705-13-2025 15:20-0400 Body zuhllu115.64 cmG. Wesly Thapa DO Work Phone: 1(966)667-[address] [place], [place] 6287705-13-2025 15:20-0400 Body .8 kgG. Wesly Thapa DO Work Phone: 1(822)928-[address] [place], [place] 6287704-05-2025 19:22-0400 Heart rate72 /Telly Garcia MD Work Phone: [phone] [employer] [facility] HospitalConsumer Agent Portal (CAP) Xuefuf85-14-2089 19:22-0400 Respiratory rate18 /Telly Garcia MD Work Phone: [employer] [facility] HospitalConsumer Agent Portal (CAP) Sqbsfj75-57-7622 19:22-5524CyG0% (BldA) [Mass fraction]100 %Milton Garcia MD Work Phone: [phone] SecSegmentFault [facility] HospitalConsumer Agent Portal (CAP) Ttxeel18-82-8507 19:20-0400Diastolic blood qhpiehmj90 mm[Hg]Milton Garcia MD Work Phone: Bon SecSegmentFault [facility] HospitalConsumer Agent Portal (CAP) Oqssil16-58-9447 19:20-0400Systolic blood kyqaztlq960 mm[Hg]Milton Garcia MD Work Phone: [phone] [employer] [facility] HospitalSOMS TechnologiesQnnkmc84-37-0719 18:30-0400Body ejafjl118.2 Pam Garcia MD Work Phone: [phone] SecSegmentFault [facility] HospitalSOMS TechnologiesEwjfee14-49-3162 18:30-0400Body mass index (BMI) [Ratio]24.53 kg/z3OtncjgngxnyMilton Garcia MD Work Phone: [phone] [employer] ([employer])04-05-2025 18:30-0400Body jhmapcssicw75.01 [degF]Milton Garcia MD Work Phone: Bon [employer] [facility] HospitalSOMS TechnologiesHrbqxz53-77-4707 18:30-0400Body womxyf66.03 kgMilton Garcia MD Work Phone: Bon [facility]02-22-2025 23:39-0500Body .2 cmRohit Rob MD Work Phone: Bon [facility]02-22-2025 23:39-0500Body mass index (BMI) [Ratio]23.63 kg/z5YgoxmvRohit Rob MD Work Phone: Bon [facility]02-22-2025 23:39-0500Body fehtdtuwdlj52.59 [degF]Rohit Rob MD Work Phone: Bon [facility]02-22-2025 23:39-0500Body dzodau43.45 kgRohit Rob MD Work Phone: Bon [facility]02-22-2025 23:39-0500Diastolic blood ovjzljpg04 mm[Hg]Rohit Rob MD Work Phone: Bon [facility]02-22-2025 23:39-0500Heart rate97 /minRohit Rob MD Work Phone: Bon [facility]02-22-2025 23:39-0500 Respiratory rate16 /minRohit Rob MD Work Phone: Bon [facility]02-22-2025 23:39-9525BiD8% (BldA) [Mass fraction]100 %Rohit Rob MD Work Phone: Bon [facility]02-22-2025 23:39-0500Systolic blood arhfpeih908 mm[Hg]Rohit Rob MD Work Phone: Bon [facility]02-08-2025 02:37-0500Diastolic blood zrkjclte35 mm[Hg]Akiko Acosta MD Work Phone: Bon [facility] CampusSegmentFault [facility] Rehabilitation HospitalMgroxo98-10-7040 02:37-0500Heart rate70 /Colette Acosta MD Work Phone: [employer] ([employer])02-08-2025 02:37-0500 Respiratory rate13 /minAkiko Acosta MD Work Phone: Xzf [employer] ([employer])02-08-2025 02:37-6755BcX0% (BldA) [Mass fraction]100 %Akiko Acosta MD Work Phone: Sph [employer] ([employer])02-08-2025 02:37-0500Systolic blood utxaycqa906 mm[Hg]Akiko Acosta MD Work Phone: [employer] ([employer])02-08-2025 00:53-0500Body ryjcxe903.6 cmRtessa Acosta MD Work Phone: [employer] ([employer])02-08-2025 00:53-0500Body mass index (BMI) [Ratio]24.28 kg/m2Akiko Acosta MD Work Phone: [employer] ([employer])02-08-2025 00:53-0500Body oemlqw37.22 kgAkiko Acosta MD Work Phone: [employer] ([employer])02-08-2025 00:51-0500Body xohabywtelj64.59 [degF]Akiko Acosta MD Work Phone: Mtj [employer] ([employer])01-27-2025 13:35-0500Body .2 cmQuynh-Catie Vu DO Work Phone: [facility]Front [facility] Payments Nqbeai84-19-7452 13:35-0500Body mass index (BMI) [Ratio]23.56 kg/g2Ffbcv-Ppd Vu DO Work Phone: [facility] Centermisterbnb01-27-2025 13:35-0500Body ahscjhbworu93.1 [degF]Osbaldo-Catie Vu DO Work Phone: [facility] CenterFront [facility]ments Dpldbq98-19-7519 13:35-0500Body ehsrvc35.22 kgQuynh-Catie Vu DO Work Phone: [facility]01-15-2025 15:48-0500Body mass index (BMI) [Ratio]24.28 kg/i7HddjmrGualberto Vann MD Work Phone: [facility] HospitalAppswedoki38-20-4837 15:48-0500Body gjjuem58.31 kgGualberto Vann MD Work Phone: [facility] HospitalLjgaplxrcj48-35-7315 15:48-0500Diastolic blood clizgrol77 mm[Hg]Gualberto Vann MD Work Phone: [facility] HospitalUdhdeiezxz03-15-3236 15:48-0500Systolic blood xpzinfbo093 mm[Hg]Gualberto Vann MD Work Phone: 1(043)[facility]-0995[facility] HospitalNqcordrrgr53-86-4398 13:50-0500Body asupcm379.2 cmGeormyles Thapa DO Work Phone: [facility] HospitalKzhahhsiff87-40-0345 13:50-0500Body mass index (BMI) [Ratio]23.65 kg/r7Aunkskmyles Thapa DO Work Phone: 1(622)[facility] [place], [place] [address]Gggeabmgvr87-75-6377 13:50-0500Body temperature 97.11 [degF]Pete Thapa DO Work Phone: 1(637)[facility] [place], [place] [address]Zqmgcjikly24-83-5492 13:50-0500Body .49 kgGeormyles Thapa DO Work Phone: [phone] [place], [place] [address]Gutqkrhbua37-67-6479 13:50-0500Diastolic blood nzxucfvf07 mm[Hg]Pete Samanthadenisse DO Work Phone: 1(423)[facility] [place], [place] [address]Mirbegaiyo07-06-5033 13:50-0500Heart rate75 /min Pete Thapa DO Work Phone: 1([phone] [place], [place] [address]Gvmtnncgsj58-58-0437 13:50-8259MyB5% (BldA) [Mass fraction]99 %Pete Thapa DO Work Phone: 1(593)[facility] [place], [place] [address]Bhttyscvbl41-86-6606 13:50-0500Systolic blood kdbecrdi943 mm[Hg]Pete Samanthadenisse DO Work Phone: 1(045)[facility] [place], [place] [address]Jazkfnhkgv38-61-5842 10:34-0500Body alxwuu924.6 cmQuynSonja Vu DO Work Phone: [facility]12-04-2024 10:34-0500Body mass index (BMI) [Ratio]23.38 kg/q2Ewsbv-Maf Vu DO Work Phone: [facility]12-04-2024 10:34-0500Body olteiwgrcxr99.59 [degF]Osbaldo-Nhu Vu DO Work Phone: [facility]12-04-2024 10:34-0500Body xzeava75.68 kgQuynyuliya-Catie Vu DO Work Phone: [facility]12-03-2024 16:03-0500Body lmjdoq018.6 cmMich Verde MD Work Phone: [facility]12-03-2024 16:03-0500Body mass index (BMI) [Ratio]24.37 kg/x9WcishxwMich Verde MD Work Phone: [facility]12-03-2024 16:03-0500Body .49 kgMich Verde MD Work Phone: [facility]12-03-2024 16:03-0500 Respiratory rate18 /minMich Verde MD Work Phone: [facility]11-12-2024 14:49-0500Body .[address]11-12-2024 14:49-0500Body mass index (BMI) [Ratio]22.11 kg/i8Jbfgf[address]11-12-2024 14:49-0500Body gdcezs61.[address]11-05-2024 14:14-0500Body mass index (BMI) [Ratio]23.81 kg/o5PujkodGualberto Vann MD Work Phone: [facility]Ntzkcswoyw07-19-5540 14:14-0500Body .95 kgGualberto Vann MD Work Phone: [facility] HospitalLmdzhllibf51-28-5710 14:14-0500Diastolic blood hqfnbtys26 mm[Hg]Gualberto Vann MD Work Phone: [facility] HospitalXiphcnfmsx55-12-1092 14:14-0500Systolic blood vgvxifor919 mm[Hg]Gualberto Vann MD Work Phone: [facility] HospitalOgoqkxlark16-42-0389 10:10-0400Body zyagoh294.6 cmQuynh-Catie Vu DO Work Phone: [facility]10-30-2024 10:10-0400Body mass index (BMI) [Ratio]24.82 kg/p5Kcopz-Flv Vu DO Work Phone: [facility]10-30-2024 10:10-0400Body ihegthsgktl90.2 [degF]Osbaldo-Catie Vu DO Work Phone: [facility]10-30-2024 10:10-0400Body .76 kgQuynh-Catie Vu DO Work Phone: [facility] [employer] Cpzwjq91-12-8681 14:48-0400Body qvxezy367.2 Amy German PA Work Phone: [facility] HospitalWwdpvjwkxu75-02-8681 14:48-0400Body mass index (BMI) [Ratio]24.18 kg/m2Demian German PA Work Phone: no[facility] HospitalIwiyjnfkth31-94-2532 14:48-0400Body temperature 97.7 [degF]Demian German PA Work Phone: no[facility] HospitalYqquvgccrv91-31-3618 14:48-0400Body uiwfxf70.03 kgDemian MCDANIEL Work Phone: no[facility] HospitalQfthdvkpin17-26-1590 14:48-0400Diastolic blood pcouysze52 mm[Hg]Demian MCDANIEL Work Phone: noBarn[facility] HospitalFbtyvapkek64-13-2764 14:48-0400Heart rate70 /min Demian MCDANIEL Work Phone: no[facility] HospitalOngqfrxggt75-18-2620 14:48-8584OjS3% (BldA) [Mass fraction]99 %Demian MCDANIEL Work Phone: [facility] HospitalOovsbzwjrc86-58-8927 14:48-0400Systolic blood wlhfbiee143 mm[Hg]Demian MCDANIEL Work Phone: [facility] HospitalTzgmngmajr36-07-3434 15:38-0400Body sqkyng155.2 cmMich Verde MD Work Phone: [facility] [employer] Ucwnzt22-94-7626 15:38-0400Body mass index (BMI) [Ratio]23.65 kg/y8KrlhpkrMich Verde MD Work Phone: [facility] Mtsmce56-05-6202 15:38-0400Body nwpowt55.49 kgMich Verde MD Work Phone: [facility] Gkhgbo48-04-0151 10:56-0400Body wgeugq555.2 cmAnabelala Roberts PA-C Work Phone: [facility] Scvkjl26-77-9684 10:56-0400Body mass index (BMI) [Ratio]23.65 kg/n4Pkcgc Roberts PA-C Work Phone: [facility] Ppgqkf21-43-8847 10:56-0400Body .49 kgMarla Roberts PA-C Work Phone: [facility] [employer] Znomev93-69-9383 02:48-0400Diastolic blood vlhzikps49 mm[Hg]DO Katie Thapa Work Phone: [facility]09-20-2024 02:48-0400 Heart rate85 /ShellO Katie Thapa Work Phone: 9(884)737-[address] [place], [place] 6287709-20-2024 02:48-0400 Respiratory rate18 /minDO Katie Thapa Work Phone: [facility]09-20-2024 02:48-0400 SaO2% (BldA) [Mass fraction]100 %DO Katie Thapa Work Phone: [facility]09-20-2024 02:48-0400 Systolic blood dgszzekn71 mm[Hg]DO Katie Thapa Work Phone: 1(835)905-[address] [place], [place] 6287709-19-2024 22:17-0400 Body .18 cmDO Katie Thaap Work Phone: 1(123)886-[address] [place], [place] 6287709-19-2024 22:17-0400 Body vsbxkimyccw71.9 [degF]DO Katie Thapa Work Phone: 1(888)506-[address] [place], [place] 6287709-19-2024 22:17-0400 Body qjgrze99.75 kgDO Katie Thapa Work Phone: 1(468)532-[address] [place], [place] 6287708-13-2024 13:37-0400 Body lhpxde926.[address]08-13-2024 13:37-0400Body mass index (BMI) [Ratio]24.31 kg/a2Mkckr[address]08-13-2024 13:37-0400Body bxjgdezoweq69.2 [degF][address]08-13-2024 13:37-0400Body vumwlr38.[address]08-13-2024 13:37-0400 Diastolic blood oqbmomxp79 mm[Hg][address]08-13-2024 13:37-0400Heart rate83 /minMetro [address] [place], [place] 1442008-13-2024 13:37-0400 Respiratory rate18 /minMetro [address] [place], [place] 1442008-13-2024 13:37-8538LjJ3% (BldA) [Mass fraction]100 %[address]08-13-2024 13:37-0400 Systolic blood xwpknymj005 mm[Hg][address]06-10-2024 14:24-0400Body qsbesn979.2 cmMich Verde MD Work Phone: [facility]06-10-2024 14:24-0400Body mass index (BMI) [Ratio]24.12 kg/s2LzejwkyMich Verde MD Work Phone: [facility]06-10-2024 14:24-0400Body sbiwieqoykn07.4 [degF]Mich Verde MD Work Phone: [facility]06-10-2024 14:24-0400Body kgworx02.85 kgMich Verde MD Work Phone: [facility] CenterIndex05-29-2024 16:25-0400Body hotfwc571.6 cmMarla Roberts PA-C Work Phone: [facility]05-29-2024 16:25-0400Body mass index (BMI) [Ratio]24.86 kg/u4Lxqfr Roberts PA-C Work Phone: [facility]05-29-2024 16:25-0400Body bouuozkqhpb48.6 [degF]Sadia Fredi PA-C Work Phone: [facility]05-29-2024 16:25-0400Body omkcjh27.85 kgMarla Roberts PA-C Work Phone: [facility]03-12-2024 12:47-0400Body zssujg331.6 cmMarla Fredi PA-C Work Phone: [facility]03-12-2024 12:47-0400Body mass index (BMI) [Ratio]26.21 kg/z0Bhrko Fredi PA-C Work Phone: [facility]03-12-2024 12:47-0400Body mqmkburvaym16.4 [degF]Sadia Roberts PA-C Work Phone: [facility] CenterIndex03-12-2024 12:47-0400Body esduxm26.66 kgMarla Roberts PA-C Work Phone: [facility]01-31-2024 07:45-0500Body ajrark824.64 Ok Barcenas Other [employer] Other 01-31-2024 07:45-0500Body mass index (BMI) [Ratio] 28.57 kg/q8SvxnumPérez Barcenas Other [employer] Other 01-31-2024 07:45-0500Body oqofkf89.29 kgPérez Barcenas Other [employer] Other 01-31-2024 07:45-0500Diastolic blood bsgvdomi78 mm[Hg] Pérez Barcenas Other [employer] Other 01-31-2024 07:45-0500Respiratory rate18 /minPérez Barcneas Other [employer] Other 01-31-2024 07:45-0322AcS4% (BldA) [Mass fraction]98 % Pérez Barcenas Other [employer] Other 01-31-2024 07:45-0500Systolic blood amyguwqo813 mm[Hg] Pérez Barcenas Other [employer] Other [id number] 21:29-0500Body rvrbasxvggi28.1 [degF]DO Katie Thapa Work Phone: [facility]11-09-2023 21:29-0500 Diastolic blood nmjwftso69 mm[Hg]DO Katie Thapa Work Phone: [facility]11-09-2023 21:29-0500 Heart rate83 /Hue Thapa Work Phone: [facility]11-09-2023 21:29-0500 Respiratory rate16 /Hue Thapa Work Phone: 1(747)[address] [place], [place] 7556911-09-2023 21:29-0500 SaO2% (BldA) [Mass fraction]98 %DO Katie Thapa Work Phone: 1(830)[address] [place], [place] 7556911-09-2023 21:29-0500 Systolic blood ntluzuvl994 mm[Hg]DO Katie Thapa Work Phone: 1(257)[address] [place], [place] 7556911-09-2023 18:23-0500 Body afvavu172.64 cmDO Katie Thapa Work Phone: 1(062)[address] [place], [place] 7556911-09-2023 18:23-0500 Body mass index (BMI) [Ratio]29 kg/m2DO Katie Thapa Work Phone: 1(552)[address] [place], [place] 7556911-09-2023 18:23-0500 Body alilxk11.64 kgDO Katie Thapa Work Phone: 1(759)[address] [place], [place] 7556911-09-2023 18:18-0500 Inhaled oxygen flow rate10 L/minDO Katie Thapa Work Phone: 1(599)[address] [place], [place] 7556910-26-2023 18:45-0400 Diastolic blood saonfmzm77 mm[Hg]DO Katie Thapa Work Phone: 1(848)[address] [place], [place] 7556910-26-2023 18:45-0400 Heart rate98 /minDO Katie Thapa Work Phone: 1(527)[address] [place], [place] 7556910-26-2023 18:45-0400 Respiratory rate16 /minDO Katie Thapa Work Phone: 1(929)[address] [place], [place] 7556910-26-2023 18:45-0400 SaO2% (BldA) [Mass fraction]98 %DO Katie Thapa Work Phone: 1(264)[address] [place], [place] 7556910-26-2023 18:45-0400 Systolic blood rxwxlyot870 mm[Hg]DO Katie Thapa Work Phone: 1(567)[address] [place], [place] 7556910-26-2023 17:28-0400 Inhaled oxygen flow rate6 L/minDO Katie Thapa Work Phone: [facility]10-26-2023 17:13-0400 Body rpamnsnplam52 [degF]DO Katie Thapa Work Phone: 1(459)540-[address] [place], [place] 6287710-26-2023 16:26-0400 Body .64 cmDO Katie Thapa Work Phone: 1(361)459-[address] [place], [place] 6287710-26-2023 16:26-0400 Body mass index (BMI) [Ratio]29 kg/m2DO Katie Thapa Work Phone: 1(333)932-[address] [place], [place] 6287710-26-2023 16:26-0400 Body hywkvz18.64 kgDO Katie Thapa Work Phone: 1(367)349-[address] [place], [place] 6287709-01-2023 15:15-0400 Body .18 cmPdarlene Barahona Other [employer] Other 09-01-2023 15:15-0400Body mass index (BMI) [Ratio] 29.97 kg/d1MqduwoArti Barahona Other [employer] Other 09-01-2023 15:15-0400Body wfagnvfqlpw38.7 [degF]Arti Barahona Other [facility] Other 09-01-2023 15:15-0400Body hbbohm57.82 kgArti Barahona Other [employer] Other 09-01-2023 15:15-0400Diastolic blood uvjghymj53 mm[Hg] Arti Barahona Other [employer] Other 09-01-2023 15:15-0400Respiratory rate18 /minArti Barahona Other [employer] Other 09-01-2023 15:15-0015VpJ3% (BldA) [Mass fraction]99 % Arti Barahona Other [employer] Other 09-01-2023 15:15-0400Systolic blood lqjbqwan652 mm[Hg] Arti Barahona Other [employer] Other 08-24-2023 09:06-0400Body uvieoj588.6 cmEsugar Alcaraz MD Work Phone: [facility]08-24-2023 09:06-0400Body ftubqd33.81 kgFortino Alcaraz MD Work Phone: [facility]06-27-2023 15:33-0400Body phaayt41.[address] Work Phone: [facility]02-06-2023 11:32-0500Body fkipas372.6 cmStephen Samples Work Phone: [facility]02-06-2023 11:32-0500Body lfdwyg91.72 kgStephen Samples Work Phone: [facility]02-06-2023 11:32-0500Diastolic blood ekzujmfz76 mm[Hg]Sreekanth Samples Work Phone: [facility]02-06-2023 11:32-0500Heart rate85 /min Sreekanth Samples Work Phone: [facility]02-06-2023 11:32-8947UsE2% (BldA) [Mass fraction]100 %Sreekanth Samples Work Phone: [facility]02-06-2023 11:32-0500Systolic blood ohqtjqns756 mm[Hg]Sreekanth Samples Work Phone: [facility]10-27-2022 13:03-0400Heart rate92 /min Lul Mcbride MD Work Phone: [facility]10-27-2022 13:03-9682BnM3% (BldA) [Mass fraction]100 %Lul Mcbride MD Work Phone: [facility]09-16-2022 18:35-0400Body vsozxj417.18 cmPeggy Mendoza Other [employer] Other 09-16-2022 18:35-0400Body mass index (BMI) [Ratio] 29.75 kg/q8Exlso Mendoza Other [employer] Other 09-16-2022 18:35-0400Body hfdboqtdetk14.3 [degF]Zully Mendoza Other [employer] Other 09-16-2022 18:35-0400Body tlashi17.18 kgPeggy Mendoza Other [employer] Other 09-16-2022 18:35-0400Respiratory rate18 /minPeggcheko Mendoza Other [employer] Other 09-16-2022 18:35-0329LuW9% (BldA) [Mass fraction]97 % Zully Mendoza Other [employer] Other 03-24-2022 08:11-0400Diastolic blood zzyytbub99 mm[Hg] Sreekanth Samples Work Phone: [facility]03-24-2022 08:11-0400Heart rate76 /min Sreekanth Sood MD Work Phone: [facility]03-24-2022 08:11-0400Systolic blood lphpkmnu521 mm[Hg]Sreekanth Samples Work Phone: [facility]NEG[facility]: Highlighted rowBMI (Body Mass Index)[facility] Medical CtrNEGATED: Highlighted rowBody TemperatureRenePhoebe Putney Memorial Hospital - North Campus Medical CtrNEGATED: Highlighted rowBody weightEmory Saint Joseph's Hospital Medical CtrNEGATED: Highlighted rowBP DiastolicMercy Health Allen Hospital CtrNEGATED: Highlighted rowBP SystolicEmory Saint Joseph's Hospital Medical CtrNEGATED: Highlighted rowHeight MargaritaUniversity Hospitals Lake [facility] CtrNEGATED: Highlighted rowPulse (Heart Rate)[facility] CtrNEGATED: Highlighted rowPulse OximetryMercy Health Allen Hospital CtrNEGATED: Highlighted row Respiratory RateReneMercy Health [facility] Ctr Encounters Encounter DateEncounter TypeCare ProviderFacilityStart: 07-30-2025 End: 04-79-4684Fcftus Jeremiah Vann MD Work Phone: [facility] [place] OBGYNComment on above:Urinary tract infection without hematuria, site unspecified (Primary Dx)Start: 07-18-2025 End: 41-03-7405lqdmewfwzjPPQTOU JONESNot AvailableStart: 07-18-2025 End: 97-50-6001Nzbibrxp flow sheetNoms Sws Ob NurseNOMS [place] OBGYNComment on above:GA: 9z8iBaocf: 07-17-2025 End: 73-75-2699Rzfkmsvxl Result EncounterGualberto Vann MD Work Phone: noms External Department UnsolicitedStart: 07-17-2025 End: 55-93-0241Zymzceizi Result EncounterGualberto Vann MD Work Phone: noms External Department UnsolicitedStart: 07-15-2025 End: 67-71-9542Maahen Jeremiah Vann MD Work Phone: noms External Department UnsolicitedStart: 07-05-2025 End: 30-85-7878Yjxpzavvc Result EncounterGeneric External Data ProviderNOMS External Department UnsolicitedStart: 07-05-2025 End: 70-09-1156Karsdbglr Result EncounterGeneric External Data ProviderNOMS External Department UnsolicitedStart: 07-04-2025 End: 03-23-0602Mglenwwid encounterJennroosevelt HortasProMedchirag Physicians NeuroSurgeryStart: 07-03-2025 End: 74-19-1833Pnbqiiubg Result EncounterGeneric External Data ProviderNOMS External Department UnsolicitedStart: 07-03-2025 End: 77-27-5136Aejjlzvvk Result EncounterGeneric External Data ProviderNOMS External Department UnsolicitedStart: 07-03-2025 End: 73-05-1043Aufhwcfuu encounterElizehra Raphael Neurology, A [facility] HospitalStart: 06-13-2025 End: 51-03-3470Kkjvrt flowsheetPete R Giner Electrochemical Systemsmagui DO Work Phone: [facility] 230Start: 06-13-2025 End: 51-05-4184Lpamvn Mobi RiderheetPete R Thrive Solodenisse DO Work Phone: noms [facility] 230Start: 06-13-2025 End: 76-09-1907Upierx outpatient visit 15 minutesGeormyles R Alanis DO Work Phone: noms [facility] 230Comment on above: Major depressive disorder, single episode, mild ; Acne vulgaris; Attention deficit hyperactivity disorder (ADHD), combined typeStart: 06-13-2025 End: 00-66-4171jzvihgvjugUVDUHM R KAFTANNot AvailableStart: 06-11-2025 End: 86-24-9917Eblatj Jeremiah Vann MD Work Phone: [facility] [place] OBGYNComment on above:Urinary tract infection without hematuria, site unspecified (Primary Dx)Start: 06-10-2025 End: 39-40-7666Pkjqfo Jeremiah Vann MD Work Phone: noms External Department UnsolicitedStart: 06-10-2025 End: 05-18-2682Mhwwyy outpatient visit 10 minutesGualberto Vann MD Work Phone: noms Jean OBGYNComment on above:Chiari malformation type I (HCC) (Primary Dx); Amenorrhea; Menorrhagia with irregular cycle; Excessive bleeding in premenopausal period; History of miscarriage; Vaginal burning; Vaginal itching; Vaginal irritationStart: 06-10-2025 End: 22-05-1009lrkrcekmnmNNXZOL P JONESNot AvailableStart: 06-06-2025 End: 14-22-7286uvvbqqxgwlQVQUHK JONESNot AvailableStart: 04-17-2025 End: 15-03-8072Svlxwsehy Result EncounterGeneric External Data ProviderNOMS External Department UnsolicitedStart: 04-17-2025 End: 07-47-8383Rlmbstiub Result EncounterGeneric External Data ProviderNOMS External Department UnsolicitedStart: 04-17-2025 End: 40-17-2885dnifdcawqqN. Wesly Thapa DO Work Phone: [facility] Work Phone: Start: 04-17-2025 End: 75-08-7975Mhfkzhhq ReferredDaakosua White MD-LAB [facility] Start: 03-30-2025 End: 87-98-3100KtvbwcCdlmwaq J Francis APRN-CNM Work Phone: [facility] Ob[facility]etric[facility]/GynecologyComment on above:MiscarriageStart: 03-19-2025 End: 62-46-4298BfuakgQppagy E Baker MD Work Phone: DermatologyComment on above:Refill RequestStart: 69-57-3679zstiffmpkdGWQAOMC [facility] Ambulatory PPGStart: 02-26-2025 End: 89-58-9098weariopypeRKXJOC R KAFTAN [facility] HospitalStart: 02-22-2025 End: 06-53-4311jtwrnuykveEEBBEW JONESMercy Chandu HospitalStart: 02-22-2025 End: 20-55-6816Hubumpymtm hospital visit by Jerald Thapa DO Work Phone: mWHZ LaboratoryStart: 02-18-2025 End: 80-02-6372Gptxgftar department patient visitG. Wesly Thapa DO Work Phone: [facility]-Emergency Room Work Phone: Start: 02-15-2025 End: 78-77-9353FhgzmjAkaqeo R Kaftan DO Work Phone: n[facility] FM 230Comment on above:Attention deficit hyperactivity disorder (ADHD), combined type ([facility]/HCC)Start: 01-15-2025 End: 27-12-3457QgjawxUfjvqAster Gomez LPN Work Phone: [facility] 230Comment on above:Attention deficit hyperactivity disorder (ADHD), combined type ([facility])Start: 01-11-2025 End: 50-81-0628Vbxfkxwlu department patient visitChcristy Garcia MD Work Phone: [facility] Emergency DepartmentComment on above: Vertigo (Primary Dx)Start: 01-07-2025 End: 89-31-2990HwpzcgSgjfmk E Baker MD Work Phone: DermatologyComment on above:Refill RequestStart: 01-07-2025 End: 31-19-8170VokgwhOsmbyr E Baker MD Work Phone: DermatologyComment on above:Refill RequestStart: 12-13-2024 End: 68-82-8408Jwicvbxbv department patient visitPETE THAPA [facility] Centertart: 11-30-2024 End: 53-18-8016Ywysngwfe department patient visitJozenaida Rob MD Work Phone: [facility] Emergency DepartmentComment on above: Threatened miscarriage in early (Primary Dx)Start: 11-29-2024 End: 05-58-6108Llxqpqxup Result EncounterGeneric External Data ProviderNOMS External Department UnsolicitedStart: 11-29-2024 End: 28-11-5796Tgufpofff Result EncounterGeneric External Data ProviderNOMS External Department UnsolicitedStart: 11-22-2024 End: 47-45-1520Dbalovvow encounterGeorge R Kaftan DO Work Phone: [facility] 230Comment on above:Med RefillStart: 11-16-2024 End: 26-32-9325Bannraluv department patient visitAkiko Acosta MD Work Phone: [facility] Emergency DepartmentComment on above: Acute gastroenteritis (Primary Dx)Start: 11-04-2024 End: 24-83-8240Asfiprw encounter procedureQudoctors hospital-[facility] DO Work Phone: Pro[facility] - ENTComment on above:Lesion of tongue (Primary Dx)Start: 11-04-2024 End: 54-19-1431xejvjedwmdNYNBDOur Lady of the Lake [facility] Center HospitalStart: 10-28-2024 End: 48-18-7369Clxbyh OnlyGualberto Vann MD Work Phone: [facility] SWS OBComment on above:Acute vaginitis (Primary Dx)Start: 10-23-2024 End: 24-76-0235Fcfgxx outpatient visit 15 minutesGualberto Vann MD Work Phone: [facility] SWS OBComment on above:Acute vaginitis (Primary Dx); Vaginal burning; Vaginal itching; Vaginal discharge; Vaginal odor; AmenorrheaStart: 10-23-2024 End: 79-88-5149yfnvxysovwHYSELA P JONESNot AvailableStart: 10-21-2024 End: 81-68-7149Zyygsc flowsheetGeorge R Kaftan DO Work Phone: [facility] 230Start: 10-21-2024 End: 67-10-0216Hswezi flowsheetGeorge R Kaftan DO Work Phone: [facility] 230Start: 10-21-2024 End: 64-86-4328gxxmamgkqmQLVJFR R KAFTANNot AvailableStart: 10-21-2024 End: 40-65-8290Eemxxk outpatient visit 15 minutesGeorge R Kaftan DO Work Phone: [facility] 230Comment on above:Attention deficit hyperactivity disorder (ADHD), combined type (CMS/HCC)Start: 09-18-2024 End: 09-99-8671QwjzpqWqkvv Christiansen LPN Work Phone: [facility] 230Comment on above:Attention deficit hyperactivity disorder (ADHD), combined type ([facility])Start: 09-12-2024 End: 86-52-1167FdatjhKmagif E Baker MD Work Phone: DermatologyComment on above:Refill RequestStart: 09-11-2024 End: 70-25-8056fofglcntvzLJOJM-CATIE VUAdams County Hospital HospitalStart: 09-11-2024 End: 12-18-3466Ffltfck encounter procedureQuynh-Catie Vu DO Work Phone: [facility] - ENTComment on above:Lesion of tongue (Primary Dx)Start: 09-10-2024 End: 93-20-6904Jthhyd outpatient visit 15 minutesMich Verde MD Work Phone: [facility] Physicians Ear, Nose and ThroatComment on above:Postop check (Primary Dx)Start: 60-55-2409Mbtyjtkhn for examination of ears and hearing without abnormal findingsCitizens Medical Center Ambulatory PPGStart: 09-10-2024 End: 48-04-5198Pajgzloj SupportPpbp Ent Audio [address] [place] [address] Physicians Ear, Nose and ThroatComment on above:Hearing exam without abnormal findings (Primary Dx) Start: 09-10-2024 End: 40-31-9257Jzdcmei encounter statusPp[address] Work Phone: Start: 09-04-2024 End: 29-56-3662Tqplemcfa encounterJessNorth Central Bronx Hospital - ENTStart: 09-03-2024 End: 50-51-5946Reuhku OnlyQuynh-Catie Vu DO Work Phone: [facility] - ENTComment on above:Tongue swelling (Primary Dx)Start: 08-29-2024 End: 22-18-5392Qusvkqjck encounterQuynh-Catie Vu DO Work Phone: [facility] - ENTStart: 08-27-2024 End: 51-60-6583Pqwutbhbta and management of inpatientDAVID B GordonUCKERAdams County Hospital HospitalStart: 08-27-2024 End: 60-85-8687Fgjbnhaddr and management of inpatientQUYNH-CATIE VUAdams County Hospital HospitalStart: 08-20-2024 End: 69-47-7746Cftkmwrxsl and management of inpatientGEORGE Dagoberto THAPA [facility] HospitalStart: 08-20-2024 End: 83-53-8703Luocpxbac to [facility] mcallenMetKadlec [facility] Phone Call Provider [address] [facility] Baytart: 08-17-2024 End: 61-46-2651Yyasvu OnlyGualberto Vann MD Work Phone: noms SWS OBComment on above:Vaginitis due to Trichomonas (Primary Dx)Start: 08-16-2024 End: 51-59-4058QbxzvpPlor M Myers PA Work Phone: noms [facility] FM 230Comment on above:Attention deficit hyperactivity disorder (ADHD), combined type (CMS/HCC)Start: 08-13-2024 End: 11-90-2400Rcfqmht encounter statusGualberto Vann MD Work Phone: noms HealthcareStart: 08-13-2024 End: 91-06-6508Xpaujonl preventive med est patient 18-39 yrsGualberto Vann MD Work Phone: noms SWS OBComment on above:Screening for malignant neoplasm of cervix; Encounter for gynecological examination without abnormal finding; Anxiety, generalized (CMS/HCC); Vaginal dischargeStart: 08-13-2024 End: 48-56-1918jpbovjlfzxLLSSWD P JONESNot AvailableStart: 08-07-2024 End: 48-10-1434Pljujutba encounterQuyn-Catie Vu DO Work Phone: [facility] Physicians Ear, Nose and ThroatStart: 08-07-2024 End: 65-16-1018fljdbztiamUFHGWSamaritan Hospital Ambulatory PPGStart: 08-07-2024 End: 55-65-5372Iihpxsa encounter procedureNovant Health Charlotte [facility] DO Work Phone: [facility] Ear, Nose and ThroatComment on above:Chronic throat pain (Primary Dx); Odynophagia; Tongue lesion; Post-nasal drip; Allergic rhinitis, unspecified seasonality, unspecified triggerStart: 07-25-2024 End: 48-70-4220rbxpyqwctjTZHODHR M DEBARRFacility:[facility] Start: 07-25-2024 End: 54-59-0890Oglfnrz encounter procedureCoedita Delgado DPM Work Phone: PodiatryComment on above:Onychomycosis (Primary Dx); Tinea pedis, unspecified lateralityStart: 07-17-2024 End: 89-62-3691Eayfqo outpatient visit 15 minutesDemian MCDANIEL Work Phone: [facility] [phone] on above:Attention deficit hyperactivity disorder (ADHD), combined type ([facility])Start: 07-17-2024 End: 70-28-4406Epqydchxi encounterJetommy Dsouza Physicians NeuroSurgeryStart: 07-15-2024 End: 95-47-8486Cgjjcz follow up visit related to original Carla Verde MD Work Phone: [facility] Ear, Nose and ThroatComment on above:Postop check (Primary Dx)Start: 07-15-2024 End: 33-81-6930orwpagspqhBWBTIGK J DISHERCleveland Clinic [facility] PPGStart: 07-10-2024 End: 43-24-0927nmgryekpezBXQZUChantale RAIAdams County Hospital HospitalStart: 07-03-2024 End: 28-20-8779Dsynpg outpatient visit 10 minutesSadia Rai PA-C Work Phone: [facility] Physicians Ear, Nose and ThroatComment on above:Chronic throat pain (Primary Dx); Odynophagia; Adenoid hypertrophyStart: 07-03-2024 End: 64-65-2040ychkdnrgocQKBQK D [facility] Ambulatory PPGStart: 07-01-2024 End: 22-92-3135Pofkrngzm Result EncounterGeneric External Data ProviderNOMS External Department UnsolicitedStart: 07-01-2024 End: 55-10-9525Gtueydvqv Result EncounterGeneric External Data ProviderNOMS External Department UnsolicitedStart: 06-27-2024 End: 47-31-0847Cksffjpdq department patient visitDO Katie Thapa Work Phone: [facility]-Emer[facility] Work Phone: Start: 06-24-2024 End: 28-75-3327Oylkeqiul Result EncounterGeneric External Data ProviderNOMS External Department UnsolicitedStart: 06-24-2024 End: 27-88-8211Soeccmqzb Result EncounterGeneric External Data ProviderNOMS External Department UnsolicitedStart: 06-17-2024 End: 16-60-6611CvgivwDpigoGm Gomez LPN Work Phone: NOMS [facility] 230Comment on above:Attention deficit hyperactivity disorder (ADHD), combined type ([facility])Start: 06-04-2024 End: 80-21-9920Rgvnhhsbkz and management of inpatientSTANLEY A MATOSProMedica Tremont City HospitalStart: 06-04-2024 End: 43-04-8973Zuzkrcbtln and management of inpatientMICHAEL J KELIERProMedica Tremont City HospitalStart: 05-21-2024 End: 42-79-7722nzbwxjipcuPQSRTRH J DISHERProMedica Tremont City HospitalStart: 05-21-2024 End: 48-28-3359Oexozeh encounter procedureMetro Pat Provider 4[facility] On [facility] HospitalComment on above:Dysfunction of both eustachian tubes (Primary Dx)Start: 03-18-2024 End: 26-57-9026Dqgyxr outpatient visit 25 minutesMich Verde MD Work Phone: [facility] Physicians Ear, Nose and ThroatComment on above:Dysfunction of both eustachian tubes (Primary Dx); Hearing loss of right ear, unspecified hearing loss type; Otomycosis- right ear; Dysfunction of right eustachian tube; Acute right otitis mediaStart: 03-18-2024 End: 38-33-4600bspuyqfajlUEZFTMW J [facility] Ambulatory PPGStart: 03-07-2024 End: 36-92-4814Eubywi OnlySadia Rai PA-C Work Phone: [facility] Physicians Ear, Nose and ThroatStart: 03-06-2024 End: 58-42-0877lxxgsktnhkWRMPY D [facility] Ambulatory PPGStart: 03-06-2024 End: 57-47-8492Vfbpwu outpatient visit 10 minutesSadia Rai PA-C Work Phone: [facility] Physicians Ear, Nose and ThroatComment on above:Dysfunction of both eustachian tubes (Primary Dx); Otomycosis- right ear; Hearing loss of right ear, unspecified hearing loss typeStart: 02-05-2024 End: 15-32-6406Azofvdfck encounterJessica Ramos Physicians Ear, Nose and ThroatStart: 12-26-2023 End: 97-06-6177azrxyvjpiqSOATKSU M DEBARRFacility:[facility] Start: 12-26-2023 End: 68-82-6230Tfezszj encounter procedureCoedita Delgado DPM Work Phone: PodiatryComment on above:Onychomycosis (Primary Dx); Ingrown toenail; Toe pain, bilateral; Tinea pedis, unspecified lateralityStart: 32-00-1705odvhvrfyyaAxxedc E Baker MD Work Phone: DermatologyComment on above:AnceStart: 12-19-2023 End: 19-17-0999Tjopfi outpatient visit 10 minutesSadia Rai PA-C Work Phone: [facility] Physicians Ear, Nose and ThroatComment on above:Otomycosis- right ear (Primary Dx); Dysfunction of both eustachian tubes; Hearing loss of right ear, unspecified hearing loss typeStart: 11-21-2023 End: 51-32-9999ukniebqdumZGKHYxiuvnaw:[facility] Hospitaltart: 11-21-2023 End: 51-48-4485Ntequxy encounter procedureCollmanfred Cruz Calderon BILLS Work Phone: PodiatryComment on above:Onychomycosis (Primary Dx); Ingrown toenail; Toe pain, bilateral; Medication monitoring encounterStart: 11-09-2023 End: 95-27-5936tjwffufbkhTtvikr Smith Other [employer] Other Start: 17-39-5352Pplkjzhas by computer [facility] ClinicStart: 61-43-0611Adfrqaylv encounterPérez Montes [facility] Care ClinicStart: 96-08-8350Jyccbuchj therapyPérez [facility] ClinicStart: 50-14-5610Dritwjkcx encounterPérez [facility] Care ClinicStart: 87-55-5476Djwnnqfnfu RecurringDO Katie Thapa Work Phone: [facility] Work Phone: Start: 11-08-2023 End: 88-71-6228ldwpimlgsxLC G. Robert Kaftan Work Phone: [employer] Other Start: 11-08-2023 End: 15-67-4408Yhyfijd encounter Everett Thapa Work Phone: [facility] [place] Work Phone: Start: 09-23-2023 End: 56-75-8468ztqxrxztgnTotnf Keller Other [employer] Other Start: 78-36-7596Btdpitr encounter procedurePatricia Pham Urgent Care ClydeStart: 18-72-9421Vmvixji encounter procedureDO Katie Castillo Alanis Work Phone: [facility]-Start: 08-17-2023 End: 97-22-2254Cjlgdleco to same day surgery Jeramie Katie Castillo Alanis Work Phone: [facility]-Surgery Center [facility] CenterStart: 08-17-2023 End: 58-62-7089fjkfkxbmjrDZ Katie Wesly Thapa Work Phone: [facility] Work Phone: Start: 79-63-8284Gqozzoutg Shanique Alcaraz MD Work Phone: Internal MedicineComment on above:Patient Question Start: 08-16-2023 End: 65-99-0449aamddmajgfTrtrml E Baker MD Work Phone: DermatologyComment on above:Acne vulgaris (Primary Dx) Start: 08-16-2023 End: 31-66-7718Okiopxfmgvyj consultation with patientAnish Levin MD Work Phone: [facility]ENTERStart: 08-03-2023 End: 71-46-4562Qjklyeckr to same day surgery Jeramie Katie Wesly Thapa Work Phone: [facility]-Surgery Center [facility] CenterStart: 08-03-2023 End: 01-61-2960qojtggidibEZ G. Robert Kaftan Work Phone: [facility] Work Phone: Start: 45-71-5734Wjxwvmlaj encounterAnish Levin MD Work Phone: DermatologyComment on above:Medication QuestionStart: 65-45-6416bkfrjmxqhaRqpdsr E Baker MD Work Phone: DermatologyComment on above:AnceStart: 06-09-2023 End: 39-35-7605yggnthvlmrLawrdv Dymond Other [employer] Other Start: 29-48-9807Fqrmfp outpatient visit 15 minutes Arti UzielG Urgent Care ClydeStart: 27-34-8364Zjhblhrxu encounterEdangel Alcaraz MD Work Phone: Plastic SurgeryComment on above:Opened In ErrorStart: 71-46-9225Xpkmunine encounterEdangel Alcaraz MD Work Phone: Plastic SurgeryStart: 06-01-2023 End: 27-20-0437Nwsgsyz encounter procedureEdangel Alcaraz MD Work Phone: Plastic SurgeryComment on above:Mastodynia; MacromastiaStart: 03-09-3728yoyiufqkxjZwun Sarkis-Tannous PA-C Work Phone: General SurgeryComment on above:SurgeeyStart: 04-04-2023 End: 29-57-4895jiamoqnydpRxffbxh Crtalic RD Work Phone: Nutrition TherapyComment on above:Dietary counseling and surveillance (Primary Dx); Class 1 obesity with body mass index (BMI) of 30.0 to 30.9 in adult, unspecified obesity type, unspecified whether serious comorbidity presentStart: 04-04-2023 End: 28-53-4644Trpxqovbexsf consultation with patientKerry Jain RD Work Phone: [facility] FHCStart: 01-03-2023 End: 20-41-0471gyhgmgsfpfJT G ROBERT KAFTANFacility:Z9Zjmso: 12-30-2022 ambulatorySACLEVELAND CLINIC MARYWeisman [facility] HospitalStart: 40-58-3434Ftsodccpd encounter Anish Levin MD Work Phone: DermatologyComment on above:Patient QuestionStart: 12-16-2022 End: 35-43-3765qrwnxiwdmpB. ROBERT KAFTANAvita Warba HospitalStart: 12-15-2022 End: 41-96-8634lbinltdrrrAH DOCTOR MISCFacility:X1Nfzic: 19-64-3260zjnopezvgx JOE Deleon [facility]ba HospitalStart: 57-14-1689wkebgzjayzMiupkk W RICE Facility:[facility] Hospitaltart: 06-91-0652jqmicsnkvcGldnfy W OSMANIFacility:JUAN [place] Start: 89-32-4003llevlpriktDnszy Ann Zavodnik RNNURSE ON CALLComment on above:Pt would like a neurology 2nd opinion appt.Start: 61-68-6943Aenqatoyd encounter Sreekanth Sood MD Work Phone: NeurologyComment on above:Patient UpdateStart: 11-16-2022 End: 19-83-5687Jxtelevltn hospital visit by physiciani [facility] (1.5t) Work Phone: RadiologyComment on above: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]Start: 11-14-2022 End: 48-51-7391Lwkxtbu encounter procedureSyary Sood MD Work Phone: NeurologyComment on above:Cerebellar tonsillar ectopia (HCC) (Primary Dx); Exertional headache; Cervicalgia; MacromastiaStart: 46-46-3987zggjcxnpdkNeslevtf L Halloran RNCCF [facility] MAINStart: 74-91-0951Sgqsdyr encounter Heydi Montgomery RNNURSE ON CALLComment on above:Referral InformationStart: 10-21-2022 End: 28-22-1608baovrlfvmrIF Diane THAPAFacility:J7Dartl: 10-13-2022 End: 60-24-7241xgglhjsjwnJCOI SARKIS-TANNOUSFacility:[facility] HospitalStart: 10-11-2022 End: 78-18-1751uqarqfrfbuTM JEFFREY PAY .Facility:A3Sarem: 09-12-2022 End: 90-53-3644Mpsbaib encounter Francisca Levin MD Work Phone: DermatologyComment on above:Acne vulgaris (Primary Dx); Eczema, unspecified type; Other eczemaStart: 67-20-8045Ktumwtjvf encounterAnish Levin MD Work Phone: DermatologyComment on above:Patient UpdateStart: 08-17-2022 End: 67-98-5067lkorblkbkvYqkzwu E Baker MD Work Phone: DermatologyComment on above:Acne vulgarisStart: 08-17-2022 End: 05-53-5334Ndxpwtfjshei consultation with Riya Levin MD Work Phone: [facility] CENTERStart: 57-46-2725lwlzewpxquSrermk E Baker MD Work Phone: DermatologyComment on above:Ance medicineStart: 97-31-7015Ozzcuanug encounterNo Pcp4C InstituteComment on above:Medication ProblemStart: 08-04-2022 End: 48-11-1978Tzyunwf encounter procedureLul Mcbride MD Work Phone: OtolaryngologyComment on above:Sensorineural hearing loss (SNHL) of right ear with unrestricted hearing of left ear (Primary Dx) Start: 97-29-9349Vxbnacybk encounterSyary Sood MD Work Phone: NeurologyComment on above:Patient RequestStart: 00-61-8926Buvazrlpf Az Sood MD Work Phone: NeurologyComment on above:Patient QuestionStart: 06-24-2022 End: 79-34-1880vuvxmwzvuvUjbgl Hart Other [employer] Other Start: 47-16-0105Vlnqfo outpatient visit 15 minutes Zully [facility] ClydeStart: 93-92-0499OnrpoqWoxjzp E Baker MD Work Phone: DermatologyComment on above:Refill RequestStart: 05-12-2022 End: 34-64-8758Nzbhvua encounter procedureAnish Levin MD Work Phone: DermatologyComment on above:APPOINTMENT CANCELLED (Primary Dx)Start: 04-04-2022 End: 67-41-5383sktqluroczNcdregv Samples MD Work Phone: NeurologyComment on above:Cerebellar tonsillar ectopia (HCC) (Primary Dx); Exertional headache; 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 chronic headacheStart: 04-04-2022 End: 55-20-2795Egrflkhxeqnx consultation with patientSyary Sood MD Work Phone: [facility] MAINStart: 23-24-1130MebzgzYtvwvv E Baker MD Work Phone: [phone] InstituteComment on above:Refill RequestStart: 45-69-6274SqbaznQbyskj E Baker MD Work Phone: DermatologyComment on above:Refill RequestStart: 53-80-2057kkoibliphiMlsras E Baker MD Work Phone: DermatologyComment on above:AnceStart: 12-30-2021 End: 74-58-6420Wrheafw encounter procedureSyary Sood MD Work Phone: NeurologyComment on above:Cerebellar tonsillar ectopia (HCC) (Primary Dx); Exertional headache; Heke-CHSDN-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Start: 12-29-2021 ambulatoryAmanda Luceroponi RT(R)RadiologyComment on above:Radiology MRIStart: 00-41-0754Jmgahnz encounter procedureAmanda Lapponi RT(R)ORTH LORAINStart: 12-29-2021 End: 62-38-8417Qjabyfaurm hospital visit by physiciani Formerly [facility] (1.5t) Work Phone: RadiologyComment on above:Thunderclap headache [G44.53]Start: 05-22-2019 End: 82-86-8409Uviidlpb ReferredRenee [facility] Start: 06-13-2017 End: 42-06-4603Gkknsjwes department patient visitSYARY Arenas GRIDERFacility:[facility] Procedures DateProcedureProcedure DetailPerforming ClinicianStart: 74-13-8356PMD PREG QUANT HCGGeneric External Data ProviderStart: 22-49-9979Svrdybj bacterial quanttative colony count urineGualberto Vann MD Work Phone: start: 88-56-5962WZHAY CULTURE CLEAN CATCH REFLEX Gualberto Vann MD Work Phone: start: 76-94-6787HYY PREG QUANT HCGPenduyen Vann MD Work Phone: start: 87-02-1124YQD PREG QUANT HCGPenduyen Vann MD Work Phone: start: 66-67-7585GUJOQULHGJXMYMUMTJNFMZBCJ REDUCTASE (MTHFR) THERMOLABILSGualberto Vann MD Work Phone: start: 77-24-1614EMNPU CULTURE - FRGeneric External Data ProviderStart: 58-94-4478Dhtnxoutpohr chorionic quantitativeGualberto Vann MD Work Phone: start: 26-38-0645Tpwqvlowga ultrasound of gravid uterusG. Wesly Alanis HERMOSILLO Work Phone: Start: 13-89-4962Hxcumonhoghsg of growth of fungiG. Wesly Alanis DO Work Phone: Start: 83-65-0379Mbvewublkfm vaginalis detectionG. Wesly Alanis HERMOSILLO Work Phone: Start: 64-93-8196Ousbmeoutkcu obstetric ultrasonographyG. Wesly Thapa DO Work Phone: Start: 01-11-2025 End: 09-20-2580Rdyolhlxoomew metabolic panelChristopher Katarzyna Garcia MD Work Phone: Start: 61-40-4671Wnhww dip stick/tablet rgnt auto w/o microscopyJozenaida Rob MD Work Phone: Start: 12-01-2024 End: 40-38-9226Nzkquiaqausnn metabolic panelRohit Rob MD Work Phone: Start: 22-07-3150DJZ PREG QUANT HCGPenola Serafin Vann MD Work Phone: start: 99-14-6163Nxdjy dip stick/tablet rgnt auto w/o microscopyAkiko Acosta MD Work Phone: Start: 24-41-2900Ib abdomen & pelvis w/contrast materialAkiko Acosta MD Work Phone: Start: 39-49-3344Yycmylolga exam chest single viewAkiko Acosta MD Work Phone: Start: 96-83-0488KPZFL-19, RAPIDAkiko Acosta MD Work Phone: Start: 47-96-4511Ykyotdhhz influenzaAkiko Acosta MD Work Phone: Start: 76-34-2976Qrc routine ecg w/least 12 lds w/i&r Akiko Acosta MD Work Phone: Start: 16-96-9174Kxkjdfhwkjjfo metabolic panelAkiko Acosta MD Work Phone: Start: 93-19-7883Hiywyf-up visitFollow-upQUYNBOONE HOS[facility]ITAL [facility]ENTER VU Start: 44-63-4685Abpkt test visual color cmprsn methsPenola Serafin Vann MD Work Phone: start: 81-24-4168Xwjiab-up visitFollow-upMICHAEL DISHERStart: 52-06-7728RWE PREG QUANT HCGPenola Serafin Vann MD Work Phone: start: 02-75-0561Cwoydjuxibe vaginalis detectionDO Katie Thapa Work Phone: Start: 41-07-8648WXU PREG QUANT HCGGeneric External Data ProviderStart: 96-31-6667Bgpnjldq and curettage of uterusDO Katie Thapa Work Phone: Start: 44-65-0261TqnyvmfawlenME Katie Thapa Work Phone: Start: 73-24-4152Svsmh depression screening assessment Sadia Rai PA-C Work Phone: Start: 42-03-3165Rzu brain brain stem w/o w/contrast materialStephen Samples Work Phone: Start: 11-55-8640Tmxut depression screening assessment Sreekanth Samples Work Phone: Start: 27-99-5319Oqw brain brain stem w/o w/contrast materialStephen Samples Work Phone: Start: 58-91-3467Wxsiq depression screening assessment Francheska Marinelli RT(R)Start: 66-11-2906Qtusgxq CultureRenee OttStart: 05-22-2019 Anaerobic CultureRenee OttStart: 94-60-4685Ykxkxcioyiz observation Gram stain Nom (Unsp spec)Margarita Chiu Plan of Treatment DateCare ActivityDetailAuthorStart: 16-28-6729Nmvtfaq ScreeningTobacco Screening [facility] SystemStart: 35-27-0161Aenmf BMI ScreeningAdult BMI Screening [facility] SystemStart: 07-30-6430Ykpij BMI ScreeningAdult BMI Screening [facility] SystemStart: 83-42-8557Gxovc BMI ScreeningAdult BMI Screening [facility] SystemStart: 99-23-6140Pthuycr ScreeningTobacco Screening [facility] SystemStart: 26-33-4762Palou BMI ScreeningAdult BMI Screening [facility] SystemStart: 96-55-7015Phxshfl ScreeningTobacco Screening [facility] SystemStart: 47-48-1348Aaqka BMI ScreeningAdult BMI Screening [facility] SystemStart: 86-02-6981Htyophh ScreeningTobacco Screening [facility] SystemStart: 08-18-2025 End: 10-99-4507hhwzzqgsoh71/10/2025 12:45 PM EST Initial NOM[facility] [place] APONTE [address] [place] [id number] Gualberto Vann MD [address] [place] [address] BRETEfe SoCottondale OBGYNStart: 08-14-2025 End: 71-69-1273Kmmdvph encounter procedureNOADVENTIST [facility] OBStart: 08-11-2025 End: 46-14-5472QERNLK CARRIER SCREEN;14 GENESBEACON CARRIER SCREEN;14 GENES Lab Routine Screening for genetic disease carrier status Expected: 08/11/2025 (Approximate), Expires: 07/18/2026NOAR HealthcareComment on above:Expected: 08/11/2025 (Approximate), Expires: 07/18/2026Start: 08-11-2025 End: 73-00-8103AlyltnjU87 PLUS Core+AKGQufaqqlQ93 PLUS Core+SCA Lab Routine Encounter for screening for chromosomal anomalies ([facility]) Expected: 08/11/2025 (Approximate), Expires: 07/18/2026[facility] HealthcareComment on above: Expected: 08/11/2025 (Approximate), Expires: 07/18/2026Start: 07-31-2025 End: 77-72-4457Uaxsathnxsci / ancillary services irmqdycbid71/23/2025 2:45 PM EDT Ancillary Procedure BRANDEN APONTE [address] [place] [id number] NOMS [place] OBGYNStart: 07-31-2025 End: 36-90-2423Lrpyrow encounter vtbzxzxoc09/23/2025 10:30 AM EDT Office Visit BRANDEN APONTE [address] [place] [address] Gualberto Vann MD [address] [place] [address] BRETEfe [place] OBGYNStart: 07-18-2025 End: 66-41-0471Yfecvxzm identified in Urine by CultureUrine culture Microbiology Routine care, subsequent , first trimester ([facility]) Ex pected: 07/18/2025, Expires: 07/18/2026NOAR HealthcareComment on above:Expected: 07/18/2025, Expires: 07/18/2026Start: 07-18-2025 End: 21-41-3144Pbaqc type and Indirect antibody screen panel - BloodType and screen Lab Routine care, subsequent , first trimester ([facility]) Expected: 07/18/2025, Expires: 07/18/2026[facility] HealthcareComment on above: Expected: 07/18/2025, Expires: 07/18/2026Start: 07-18-2025 End: 93-51-9567HQG W Auto Differential panel - BloodCBC auto differential Lab Routine care, subsequent , first trimester ([facility]) Expected: 07/18/2025, Expires: 07/18/2026[facility] HealthcareComment on above:Expected: 07/18/2025, Expires: 07/18/2026Start: 07-18-2025 End: 70-76-1822Xfbzw of abuse panel - Urine by Screen methodToxicology screen, urine Lab Routine Encounter for drug screening Expected: 07/18/2025 (Approximate), Expires: 07/18/2026[facility] Work Phone: comment on above:Expected: 07/18/2025 (Approximate), Expires: 07/18/2026Start: 07-18-2025 End: 56-98-9978WBWKLQGVQ B SURFACE ANTIGEN ([facility])HEPATITIS B SURFACE ANTIGEN ([facility]) Lab Routine care, subsequent , first trimester([facility]) Expected: 07/18/2025, Expires: 07/18/2026[facility] HealthcareComment on above: Expected: 07/18/2025, Expires: 07/18/2026Start: 07-18-2025 End: 07-98-0596Vhebjsmrl C virus Ab [Presence] in Serum or Plasma by Immunoassay Hepatitis C antibody Lab Routine care, subsequent , first trimester ([facility]) Expected: 07/18/2025, Expires: 07/18/2026[facility] Comment on above:Expected: 07/18/2025, Expires: 07/18/2026Start: 07-18-2025 End: 81-63-0338RZS-1/HIV-2 antigen/antibody combination immunoassayHIV-1 and HIV-2 antibodies Lab Routine care, subsequent , first trimester ([facility]) Expected: 07/18/2025, Expires: 07/18/2026[facility] Healthcare Comment on above:Expected: 07/18/2025, Expires: 07/18/2026Start: 07-18-2025 End: 99-33-2175XUQ W/RFX TO QUANT & TP ABS ([facility])RPR W/RFX TO QUANT & TP ABS ([facility]) Lab Routine care, subsequent , first trimester ([facility]) Expected: 07/18/2025, Expires: 07/18/2026[facility] HealthcareComment on above: Expected: 07/18/2025, Expires: 07/18/2026Start: 07-18-2025 End: 47-43-5540Nrfrbyu antibody, IgGRubella antibody, IgG Lab Routine care, subsequent , first trimester ([facility]) Expected: 07/18/2025, Expires: 07/18/2026[facility] HealthcareComment on above:Expected: 07/18/2025, Expires: 07/18/2026Start: 07-18-2025 End: 24-76-8436Lvsvyoafeb complete panel - UrineUrinalysis with microscopic Lab Routine care, subsequent , first trimester ([facility]) Expected: 07/18/2025, Expires: 07/18/2026[facility] HealthcareComment on above:Expected: 07/18/2025, Expires: 07/18/2026Start: 07-18-2025 End: 83-71-0714egmkfzerbo52/10/2025 10:30 AM EDT Initial NOMS [place] APONTE [address] [place] [address] RCUXMS Jean WALLIStart: 07-39-9101Wuowi BMI ScreeningAdult BMI ScreeningJoint [facility] SystemStart: 34-97-8935Ducwpep ScreeningTobacco ScreeningJoint [facility] Start: 07-15-2025 End: 89-98-0761Mnixmmm encounter rxixyeghx76/07/2025 8:45 AM EDT Office Visit BRETEfe [place] FADI [address] [place] [address] Gualberto Vann MD [address] [place] [address] NOMEfe [place] OBGYNStart: 67-40-4222Gllxt BMI Screening Adult BMI ScreeningJoint Township District Memorial Hospital SystemStart: 78-17-6353Qlkdosg Screening Tobacco ScreeningProUniversity Hospitals [facility] SystemStart: 46-76-8757XUsL,Tdap and Td Vaccines (7 - Td or Tdap)DTaP,Tdap and Td Vaccines (7 - Td or Tdap)[facility] SystemStart: 26-60-9556ITfG/Tdap/Td vaccine (7 - Td or Tdap)DTaP/Tdap/Td vaccine (7 - Td or Tdap)[facility] HospitalStart: 97-87-2321Wfbkd microalbumin profileDTaP,Tdap,Td Vaccine (7 - Td or Tdap)[facility] Hospitaltart: 06-13-2025 End: 46-50-4214Gxkiwwb encounter procedureCritical access hospital 230 Comment on above:Major depressive disorder, single episode, mildStart: 06-10-2025 End: 66-01-0215Znxmcjxr [Mass/volume] in Serum or PlasmaFerritin Lab Routine Amenorrhea Menorrhagia with irregular cycle Excessive bleeding in premenopausal period Expected: 06/10/2025 (Approximate), Expires: 06/10/2026[facility] Comment on above:Expected: 06/10/2025 (Approximate), Expires: 06/10/2026Start: 06-10-2025 End: 88-44-8396SODML mutationMTHFR mutation Lab Routine History of miscarriage Expected: 06/10/2025 (Approximate), Expires: 06/10/2026[facility] Healthcare Work Phone: comment on above:Expected: 06/10/2025 (Approximate), Expires: 06/10/2026Start: 38-61-9422QSZXI-19 Vaccine ( season)COVID- 19 Vaccine ( season)[facility] SystemStart: 26-24-5024Gdmlgrlag vaccinationProGeorgetown Behavioral Hospitalca Health SystemStart: 62-28-5770Zvuak BMI ScreeningAdult BMI ScreeningProGeorgetown Behavioral Hospitalca Health SystemStart: 23-51-2322Zqwkaxy ScreeningTobacco ScreeningProGeorgetown Behavioral Hospitalca Health SystemStart: 05-01-2025 End: 47-43-7385Zecpoej encounter kgtjytext09/24/2025 4:15 PM EDT Office Visit Dermatology [address] [place], [place] [id number] Anish Levin MD [address] [place] [address] [place], [place] [id number] requesting refillsDermatologyComment on above:requesting refillsStart: 12-16-9046Pvfaobsq identified in Urine by CultureUrine UC Medical Centertart: 10-40-8411Fkkgr [facility] Start: 93-59-7420Hgqag BMI ScreeningAdult BMI ScreeningUniversity Hospitals Parma Medical Centerca Health System Start: 84-67-2557Kyinzpk ScreeningTobacco ScreeningUniversity Hospitals Parma Medical Centerca Health SystemStart: 45-82-9815Fzxbw BMI ScreeningAdult BMI ScreeningJoint [facility] District Memorial Hospital SystemStart: 43-52-4416Lsxdqll ScreeningTobacco ScreeningUniversity Hospitals Parma Medical Centerca [facility] SystemStart: 02-19-2025 End: 34-15-6873Nlaqjil encounter vdyqopmsa22/14/2025 12:45 PM EDT Office Visit Dermatology [address] [place] [address] [place] [address] Anish Levin MD [address] [place] [address] [place], [place] [id number] 2 months follow up for acneDermatologyComment on above:2 months follow up for acneStart: 29-29-1427SnmgijtxlAccess Hospital Daytontart: 65-74-4902Dqxns BMI ScreeningAdult BMI ScreeningProUniversity Hospitals [facility] SystemStart: 62-53-9769Ycvmycj ScreeningTobacco ScreeningUniversity Hospitals Parma Medical Centerca Nuvance Healthtart: 12-03-2024 End: 56-91-8150Zqnfscr encounter sgtkwdmcy94/25/2025 8:40 AM EST Office Visit [facility] [address] [place] [phone] Pete Thapa, DO [address] [place] [address] [facility] 230Start: 11-04-2024 End: 48-53-1390Slqvkuj encounter vriqnisag75/27/2025 1:45 PM EST Office Visit [facility] [address] [place] [address] [facility], DO [address], [address] [place] [address] [facility] - ENTStart: 10-15-2024 End: 51-44-3577Xmiqhuv encounter igbcbmqwr38/07/2025 10:00 AM EST Office Visit [facility] [address] [place] [address] Pete Thapa, DO [address] [place] [address] [facility] 230Start: 10-10-2024 End: 69-62-7289Rfgwesf encounter ddhelrbti14/02/2025 1:45 PM EST Office Visit Dermatology [address] [place] [address] Anish Levin MD [address] [place] [place], [place] [id number] ACNEDermatologyComment on above:ACNEStart: 09-11-2024 End: 59-16-0915Qyakfoj encounter agnzdnhwr95/04/2024 10:30 AM EST Office Visit [facility] [address] [place] [address] VuOsbaldo-Catie, DO [address] [facility], [address] [place] [address] [facility] - ENTStart: 09-10-2024 End: 41-37-6342Jkgqmfmv SupportProMedica Physicians Ear, Nose and ThroatStart: 09-09-2024 End: 06-41-4183Dzxfrhs encounter fjoitsxhv92/02/2024 9:45 AM EST Office Visit [facility] [address] [facility] [place] [address] Vu, Osbaldo-Catie, DO [address] [facility] [place] [address] [facility] - ENTStart: 08-27-2024 End: 02-40-3216Xlpohgcle to same day surgery lbyoss5708/27/2024 12:45 PM EST - 08/27/2024 1:45 PM EST Surgery [facility] Surgery [address] [place] [address] Luis Enrique Jennings, DO [address] [facility] [place] [address] DIRECT LARYNGOSCOPY WITH BIOPSY BASE OF TONGUE LESION [23511 (CPT )][facility] SurgeryComment on above:DIRECT LARYNGOSCOPY WITH BIOPSY BASE OF TONGUE LESION [97784 (CPT )] Start: 08-27-2024 End: 76-63-3929Ibrusqnzhjti direct operative w/biopsyDIRECT LARYNGOSCOPY Lesion of tongue 08/27/2024 12:45 PM ESTFLOWER SURGERYStart: 11-79-0795Ooqndbcvcc hospital visit by vdpamdmvp09/19/2024 12:45 PM EST Hospital Encounter [facility] Surgery [address] [place] [address] Osbaldo Jennings-Catie, DO [address] [facility] [place] [address] [facility] - SurgeryStart: 08-27-2024 End: 09-82-9645Qokzkelfcure direct operative w/biopsyDIRECT LARYNGOSCOPY Lesion of tongue 08/27/2024 10:13 AM ESTFLOWER SURGERYStart: 08-13-2024 End: 85-22-1616Gnwzmua encounter gfnkhyxat85/05/2024 1:45 PM EST Office Visit [facility] [address] [place] [address] Gualberto Vann MD [address] [place] [address] [facility] OBStart: 08-08-2024 End: 42-79-2188Hycwvis encounter wpufqdird51/31/2024 10:00 AM EDT Office Visit [facility] [address] [place] [address] Renita Ellis, GERENTOLOGICAL PHYSIOTHERAPIST-MATERIALS HANDLING EQUIPMENT OPERATOR [address] [place] [address] [facility] NeurologyStart: 08-07-2024 End: 19-82-3165Mgvksbl encounter ctcakfntt04/30/2024 10:00 AM EDT Office Visit [facility] [address] [facility] [address] [place] [address] Gary JenningsEn[facility], DO [address] [facility] [place] [address] [facility], Nose and ThroatStart: 07-24-2024 End: 02-30-9944Xmprmsz encounter ojhxzjyyq88/16/2024 10:00 AM EDT Office Visit [facility] [address] [place] [address] Renita Ellis, GERENTOLOGICAL PHYSIOTHERAPIST-MATERIALS HANDLING EQUIPMENT OPERATOR [address] [place] [address] [facility] NeurologyStart: 07-15-2024 End: 87-52-3848Dtczequ encounter oslszwmxu37/07/2024 3:30 PM EDT Office Visit [facility] [address] [facility] [address] [place] [address] Mich Verde MD [address] [facility] [address] [place], [id number] [facility], Nose and ThroatStart: 07-03-2024 End: 56-06-9229QQ Neck W contrast IVCT neck soft tissue with contrast Imaging Routine Chronic throat pain Odynophagia Expected: 07/03/2024, Expires: 07/03/2025[facility] Work Phone: Comment on above:Expected: 07/03/2024, Expires: 07/03/2025Start: 91-53-3942Jqmrwcdt tomography of abdomen and pelvis with contrastCT abdomen pelvis w [facility] Hospitaltart: 28-94-9670GW Abdomen and Pelvis W contrast [facility] Start: 88-62-8480OibtkfkflAccess Hospital Daytontart: 38-41-7587Odsobrtz identified in Urine by CultureAccess Hospital Daytontart: 06-19-2024 Depression ScreeningDepression ScreeningProUniversity Hospitals Cleveland Medical Center SystemStart: 06-09-2024 COVID-19 Vaccine ( season)COVID-19 Vaccine () [facility] SystemStart: 87-36-1494Hwhex-19 Vaccine ( season) Covid-19 Vaccine ( season)[facility] Hospitaltart: 90-54-8534Lnbmmifuj vaccinationAvita Health System Ontario Hospitaltart: 06-04-2024 End: 89-45-2864Elssiljzt to same day surgery wedgge1406/04/2024 9:00 AM EDT - 06/04/2024 9:30 AM EDT Surgery [address] [address] Mich Verde MD [address] [place] [address] [address] [place] [address] REMOVAL TUBE EAR [24454 (CPT )][facility] SurgeryComment on above: REMOVAL TUBE EAR [18635 (CPT )]Start: 56-73-8035Ulavyoyvjt hospital visit by /27/2024 9:00 AM EDT Hospital Encounter [address] [address] Mich Verde MD [address] [place] [address] [address] [place] [address] [phone] (Work) [facility] SystemStart: 06-04-2024 End: 30-61-5321Swkkhwmd memb rpr w/wo prepj perfor patchAPPLICATION GRAFT PAPER PATCH EAR Dysfunction of both eustachian tubes Hearing loss of right ear, un specified hearing loss type Otomycosis Acute right otitis media Cerumen debris on tympanic membraneof both ears Chronic mucoid otitis media of both ears 06/04/2024 9:00 AM EDTTOLEDO SURGERYStart: 06-04-2024 End: 85-98-9635Nbqgcrsjnqp tube rmvl requiring general anesREMOVAL TUBE EAR Dysfunction of both eustachian tubes Hearing loss of right ear, unspecified hearing loss type Otomycosis Acute right otitis media Cerumen debris on tympanic membrane of both ears Chronic mucoid otitis media of both ears 06/04/2024 9:00 AM EDTTOLEDO SURGERYStart: 04-08-2024 End: 93-72-5887Egolree encounter stkkokllg02/01/2024 4:15 PM EDT Office Visit [facility] [address] [place] [address] Sadia Rai PA-C [address] [address] [facility]ose [facility] ThroatStart: 03-18-2024 End: 80-35-9092Hnohgyx encounter ywemgvkcr30/10/2024 2:30 PM EDT Office Visit [facility] [address] [facility] [address] [place] [address] Mich Verde MD [address] [place] [address] [address] [place], [place] [address] [facility], Nose and ThroatStart: 02-13-2024 End: 77-79-6686Kwuaauc encounter lbryomlgc79/07/2024 2:00 PM EDT Office Visit [facility] [address] [facility] [address] [place] [address] Mich Verde MD [address] [place] [address] [address] [place], [place] [address] [facility] Nose and ThroatStart: 02-06-2024 End: 27-75-3210Ppkrhqq encounter /30/2024 1:15 PM EDT Office Visit [facility] [address] [facility] [address] [place] [address] Sadia Rai PA-C [address] [address] [facility] Nose and ThroatStart: 11-21-2023 End: 73-40-6065Gyqmewy function 2000 panel - Serum or PlasmaHEPATIC FUNCTION PNL Lab Routine Medication monitoring encounter Expected: 11/21/2023, Expires: 02/06[facility] Work Phone: Comment on above:Expected: 11/21/2023, Expires: 02/20/2024Start: 07-75-9748Vavpahmgc for malignant neoplasm of cervixAvita Health System Ontario Hospitaltart: 75-85-8261Gjnkmdbrbg AssessmentDepression AssessmentAvita Health System Ontario Hospitaltart: 91-61-6068DmqjwyxclAccess Hospital Daytontart: 08-03-2023 End: 95-96-2492KymgsertjAccess Hospital Daytontart: 06-25-3787Rfmua-19 Vaccine ( season)Covid-19 Vaccine ( season)[facility] Hospitaltart: 09-37-2828Vjcwjisgh vaccinationAvita Health System Ontario Hospitaltart: 04-04-2023 Adult depression screening assessmentDEPRESSION SCREENINGAvita Health System Ontario Hospitaltart: 98-26-1419Hipoo depression screening assessmentDEPRESSION SCREENINGAvita Health System Ontario Hospitaltart: 31-02-2958QDCEUOZMVS ASSESSMENTDEPRESSION ASSESSMENTAvita Health System Ontario Hospitaltart: 91-90-0119Qzurbyhvc vaccinationINFLUENZA (#1)[facility] Hospitaltart: 83-92-6573HKECZAPFBG ASSESSMENTDEPRESSION ASSESSMENTAvita Health System [facility] Hospitaltart: 71-12-1701Xyavt BMI Follow Up PlanAdult BMI Follow Up PlanJoint Township District Memorial Hospital SystemStart: 60-35-0734NXGHPYATJ SCREENING (18-24)CHLAMYDIA SCREENING (18-24) [facility] Hospitaltart: 81-30-7253Fysaejofqt ScreeningDepression Screening [facility] Hospitaltart: 56-15-0453WO (GONORRHEA) SCREENING (18-24)GC (GONORRHEA) SCREENING (18-24)[facility] Hospitaltart: 78-96-1564XGUGRNIDE C SCREENINGHEPATITIS C SCREENINGAvita Health System Ontario Hospitaltart: 79-74-6473Qincgvusz C screeningAvita Health System Ontario Hospitaltart: 21-98-3613HOM SCREENINGHIV SCREENINGAvita Health System Ontario Hospitaltart: 22-60-4902DIC screeningHIV ScreeningAvita Health System Ontario Hospitaltart: 14-07-2107Yobqnpwsg for Chlamydia trachomatisChlamydia Screening (18-24)[facility]tart: 50-31-0287Vxyltpwwdgpfz B Vaccine (1 of 2 - Standard)Meningococcal B Vaccine (1 of 2 - Standard)[facility]: 40-77-9556Bsgzrprklwpnr B Vaccine: Consider Based On Risk (1 of 2 - Patient Seeks Protection)Meningococcal B Vaccine: Consider Based On Risk (1 of 2 - Patient Seeks Protection)[facility] Hospitaltart: 42-46-1526BSAWLGRWXHNXA B: Consider based on risk (1 of 2 - Patient Seeks Protection)MENINGOCOCCAL B: Consider based on risk (1 of 2 - Patient Seeks Protection)[facility] Hospitaltart: 17-95-3622Pouwzwgji for Chlamydia trachomatis Chlamydia/GC screenBon [facility]: 28-99-2178TML screeningHIV screenRiverside Behavioral Health Center: 06-55-9129KHX VACCINE (2 - 2-dose series) HPV VACCINE (2 - 2-dose series)[facility] Hospitaltart: 62-17-1373TXJH TO ADULT TRANSITION ANNUAL ASSESSMENTPEDS TO ADULT TRANSITION ANNUAL ASSESSMENTAvita Health System Ontario Hospitaltart: 47-99-6774Zuhesrfirn ScreenDepression ScreenRiverside Behavioral Health Center: 31-53-2134JNZA TO ADULT TRANSITION INITIAL DISCUSSIONPEDS TO ADULT TRANSITION INITIAL DISCUSSIONAvita Health System Ontario Hospitaltart: 55-67-3509Kavlk microalbumin profileAvita Health System Ontario Hospitaltart: 06-43-6593BLZNRFLDELIJA B: Consider based on risk (1 of 2 - Risk Bexsero 2-dose series)MENINGOCOCCAL B: Consider based on risk (1 of 2 - Risk Bexsero 2-dose series)[facility] Hospitaltart: 90-54-6430Ftgytxfyg vaccine (2 of 2 - 2-dose childhood series)Varicella vaccine (2 of 2 - 2-dose childhood series)[facility]: 68-64-6392CLBBI-19 VACCINE (#1) COVID-19 VACCINE (#1)[facility] Hospitaltart: 57-62-6946JSDRM-19 VACCINE (1)COVID- 19 VACCINE (1)[facility] Hospitaltart: 25-09-1602AXRAB-19 VACCINE (#1)COVID-19 VACCINE (#1)[facility] HospitalBacteria identified in Urine by CultureUrine culture Microbiology Routine Vaginal burning Ordered: 10/23/2024[facility] HealthcareComment on above:Ordered: 5Bacteria identified in Urine by CultureUrine culture Microbiology Routine Vaginal burning Vaginal itching Vaginal irritation Ordered: 06/10/2025[facility] HealthcareComment on above:Ordered: 06/10/2025BC W Auto Differential panel - BloodCBC and differential Lab Routine Amenorrhea Menorrhagia with irregular cycle Excessive bleeding in premenopausal period Ordered: 06/10/2025[facility] HealthcareComment on above:Ordered: 06/10/2025 End: 33-69-1874Tkiyapzlphjiy hearing testComprehensive hearing test Audiology Routine Postop check 1 Occurrences starting 07/15/2024 until 07/15/2025[facility] Work Phone: Comment on above:1 Occurrences starting 07/15/2024 until 07/15/2025EKG 12 Lead (Chest Pain)EKG 12 Lead (Chest Pain) ECG STAT 11/16/2024 1:16 AM [facility]GEN[facility]COPLAS[facility] JANET, SWAB GENITAL MYCOPLASMAS JANET, SWAB Pathology and Cytology Routine Vaginal burning Vaginal itching Vaginal discharge Vaginal odor Ordered: 10/23/2024[facility] Work Phone: comment on above:Ordered: 10/23/2024hCG, quantitative hCG, quantitative Lab Routine Amenorrhea Ordered: 06/10/2025[facility] Comment on above:Ordered: 06/10/2025Iron and Iron binding capacity panel - Serum or PlasmaIron and TIBC Lab Routine Amenorrhea Menorrhagia with irregular cycle Excessive bleeding in premenopausal period Ordered: 06/10/2025[facility] Comment on above:Ordered: 06/10/2025Lipoprotein a [Moles/volume] in Serum or PlasmaSelect Medical Trihealth Rehabilitation HospitalLupus anticoagulantLupus anticoagulant Lab Routine History of miscarriage Ordered: 06/10/2025[facility] HealthcareComment on above:Ordered: 06/10/2025Mayo miscellaneous testMayo miscellaneous test Lab Routine Screening for malignant neoplasm of cervix Vaginal discharge Ordered: 08/13/2024[facility] HealthcareComment on above:Ordered: 08/13/2024NuSwab Vaginitis Plus (VG+)NuSwab Vaginitis Plus (VG+) Microbiology Routine Screening for malignant neoplasm of cervix Vaginaldischarge Ordered: 08/13/2024[facility] Comment on above:Ordered: 08/13/2024NuSwab Vaginitis Plus (VG+)NuSwab Vaginitis Plus (VG+) Microbiology Routine Vaginal burning Vaginal itching Vaginal discharge Vaginal odor Ordered: 10/23/2024[facility] HospitalComment on above: Ordered: 10/23/2024[facility] Work Phone: Patient referralMansfield Hospital Ctr Work Phone: SENDOUT TEST MISCELLANEOUS LABCORPSENDOUT TEST MISCELLANEOUS [facility] Lab Routine Screening for malignant neoplasm of cervix Encounterfor gynecological examination without abnormal finding Ordered: 08/13/2024[facility] Work Phone: comment on above:Ordered: 08/13/2024[facility] Lab Routine 04/17/2025 1:15 AM [facility] Immunizations Immunization DateImmunizationNotesCare DbkdsuzbVqudfkyb31-09-4591elcswbmyx, injectable, madin maria del carmen canine kidney, preservative freePete Thapa DO Work Phone: noBarnes-Jewish Saint Peters HospitalJeghwfrxci37-82-3648pvfxtlrcx virus vaccine, unspecified formulationTala Vazquez APRN-NIKIM Work Phone: [facility] HealthNwvlsb99-60-0369Hjhbophmi, injectable, Madin Maria [place] Canine Kidney, preservative free, quadrivalentLogdenisse Gomez LPN Work Phone: noBarnes-Jewish Saint Peters HospitalPpngkpyddw42-07-7374hizljzsjx virus vaccine, unspecified formulationGeising[facility] Center06-01-2023SARS-COV-2 (COVID-19) vaccine, mRNA, spike protein, LNP, bivalent, preservative free, 30 mcg/0.3 mLdose, merly-sucrose formulationLogan Jason [employer] SHOP SUPERVISOR Work Phone: [phone] [address] StreetWrlpclkcqj88-58-8317Lzcuxhefa, injectable, Madin Maria Del Carmen Canine Kidney, preservative free, quadrivalentLogan Jason [employer] SUPERVISOR Work Phone: [phone] [address] StreetBlshynxqfa62-59-4228aegwfvoqe virus vaccine, unspecified formulationAnish Levin MD Work Phone: [facility] HospitalIulpid17-14-0393kbamodlzo, injectable, quadrivalent, preservative freeLogan Jason [employer] SUPERVISOR Work Phone: [phone] [place], [place] [address]Qjpmqkpwfx26-33-1444Bdrxctyzz, injectable, Madin [place] Canine Kidney, quadrivalent with preservativeLogan Jason [employer] SHOP SUPERVISOR Work Phone: [phone] [place], [place] [address]Wxvdczdxce33-50-5719Hjlunkydk, injectable, Madin Maria Del [place] Canine Kidney, preservative free, quadrivalentLogan Jason [employer]OP SUPERVISOR Work Phone: [phone] [place], [place] [address]Vjsphbstjb02-08-0841ehbodwvsx, injectable, quadrivalent, preservative freeLogan Jason [employer] SH[employer] SUPERVISOR Work Phone: [phone] [address] StreetPaumntwrpx02-76-8346twvjtsuwm A vaccine, pediatric/adolescent dosage, 2 dose scheduleAdventHealth Durand 64-39-5449Yxqch Papillomavirus 9-valent vaccineAdventHealth Durand 86-79-5685vczygpxzr, injectable, quadrivalent, preservative freeUNC Health Appal[facility]03-09-2017hepatitis A vaccine, adult dosageRiddle Hospital03-09-2017hepatitis A vaccine, pediatric/adolescent dosage, 2 dose scheduleRobert Wood Johnson University Hospital Somersetda Lapponi RT(R)[facility] Work Phone: [phone] papilloma virus vaccine, quadrivalent Sadia Rai PA-C Work Phone: [facility]03-09-2017Human Papillomavirus 9-valent vaccineRobert Wood Johnson University Hospital Somersetda Lapponi RT(R)[facility] Work Phone: [phone]baiit oligosaccharide (groups A, C, Y and W-135) diphtheria toxoid conjugate vaccine (MCV4O)[facility]10-23-2015meningococcal polysaccharide (groups A, C, Y and W-135) diphtheria toxoid conjugate vaccine (MCV4P)Francheska Lanzai RT(R)[facility] 49-94-4697vslsghjeu virus vaccine, unspecified formulationSadia Rai PA-C Work Phone: [facility] HealthWhrbfk37-85-3476ckuoqkbff, injectable, quadrivalent, preservative freeAmanda Lapponi RT(R)[facility] 86-42-9718bcoizluvj, seasonal, injectableLogan Jason [employer] SH[employer] SUPERVISOR Work Phone: NOBarnes-Jewish Saint Peters HospitalDsahzpyhfz51-28-6093ujlaapm toxoid, reduced diphtheria toxoid, and acellular pertussis vaccine, adsorbedKiJefferson Lansdale Hospital10-22-2013influenza virus vaccine, unspecified formulationAmanda Lapponi RT(R)[facility] HospitalHfuxxg67-43-7601aojhsupuh, injectable, quadrivalent, preservative freeLogan Jason [employer] SH[employer] SUPERVISOR Work Phone: NOBarnes-Jewish Saint Peters HospitalVkljiadien2002nwpmveobi virus vaccine, unspecified formulationAmanda Lapponi RT(R)[facility] HospitalGesatg88-20-6083bbtmqqkno, seasonal, injectableLogan Jason [employer] SH[employer] SUPERVISOR Work Phone: NOBarnes-Jewish Saint Peters HospitalTnxotxyaju86-60-6764xmxbozcun virus vaccine, unspecified formulationAmanda Lapponi RT(R)[facility] HospitalCqwstd02-20-8732fgpqktryf, seasonal, injectable, preservative freeLogan Jason [employer] SHOP SUPERVISOR Work Phone: NOBarnes-Jewish Saint Peters HospitalYkclaqjhbg07-56-7229wdjdgrscq virus vaccine, live, attenuated, for intranasal useLogan Jason [employer] SHOP SUPERVISOR Work Phone: NOBarnes-Jewish Saint Peters HospitalZepvdgsala69-37-1514fbblzzhym virus vaccine, unspecified formulationAmanda Lapponi RT(R)[facility] HospitalVxddgx50-14-9859pewzjamkwr, tetanus toxoids and acellular pertussis vaccineRobert Wood Johnson University Hospital Somersetda Lapponi RT(R)[facility] HospitalIpveky53-33-8723fpphodv, mumps and rubella virus vaccineAmanda Lapponi RT(R) [facility] HospitalQuxics18-24-7163mqasfamtxb vaccine, inactivatedAmanda Lapponi RT(R) [facility] HospitalIkoyju77-58-5952ikkyaeigls, tetanus toxoids and acellular pertussis vaccineAmanda Lapponi RT(R)[facility] HospitalBajyze69-84-9398agpwcbker virus vaccine Francheska Lapponi RT(R)[facility] HospitalNvzdsq04-46-2938beqlmledw virus vaccine, unspecified formulationSadia Rai PA-C Work Phone: [facility] HealthXnsvcq52-28-1783hgqkmstnx, seasonal, injectableLogan Jason HUIZAR Work Phone: [facility] HospitalSstvzddgtg21-87-2666ifwsoihcu, seasonal, injectable, preservative freeAmanda Lapponi RT(R)[facility]07-14-2004 haemophilus influenzae type b vaccine, conjugate unspecified formulationGeisinger Medical Center07-14-2004haemophilus influenzae type b vaccine, HbOC conjugateAmanda Lapponi RT(R)[facility] HospitalSfaglx06-53-3843dxjbghd, mumps and rubella virus vaccineAmanda Lapponi RT(R)[facility] HospitalGzsmao69-49-7650duyipafnmsfq conjugate vaccine, 7 valTrinity Health07-14-2004 pneumococcal Conjugate, unspecified formulationRobert Wood Johnson [facility] Hospital Somersetda Lapponi RT(R)[facility] HospitalLlyiar31-66-2326rycsjdgnx virus vaccine, unspecified formulationSadia MCDANIEL-Baldomero Work Phone: [facility] HealthEzmweo52-31-2105plaupjiys, seasonal, injectableAmanda Lapponi RT(R)[facility] HospitalIxxhwl50-02-5358stzpjirpr virus vaccine, unspecified formulationSadia MCDANIEL-C Work Phone: [facility] HealthKldhoh26-46-8056ikcdfqmyk, seasonal, injectableAmanda Lapponi RT(R)[facility] HospitalUekpol10-55-2621smkoyxectjdw conjugate vaccine, 7 valTrinity Health12-02-2003pneumococcal Conjugate, unspecified formulationAmanda Lapponi RT(R)[facility]12-02-2003 poliovirus vaccine, inactivatedAmanda Lapponi RT(R)[facility]07-14-2003 diphtheria, tetanus toxoids and acellular pertussis vaccineAmanda Lapponi RT(R) [facility] HospitalDwrksi73-10-0278ndftqisdein influenzae type b vaccine, conjugate unspecified formulationGe[facility] Center07-14-2003 haemophilus influenzae type b vaccine, HbOC conjugateAmanda Lapponi RT(R) [facility] HospitalHctagc14-47-9447utcwqqibp B vaccine, pediatric or pediatric/adolescent dosageAmanda Lapponi RT(R)[facility] HospitalRskqda28-84-5698yokwnybasxsk conjugate vaccine, 7 valTrinity Health07-14-2003pneumococcal Conjugate, unspecified formulationAmanda Lapponi RT(R)[facility]05-12-2003 diphtheria, tetanus toxoids and acellular pertussis vaccineAmanda Lapponi RT(R) [facility] HospitalTiduuo00-00-6778zqzxhofqlqy influenzae type b vaccine, conjugate unspecified formulationGe[facility] Center05-12-2003 haemophilus influenzae type b vaccine, HbOC conjugateAmanda Lapponi RT(R) [facility] HospitalXqzjcm88-04-1173scsmhpuqiw vaccine, inactivatedAmanda Lapponi RT(R) [facility] HospitalOupfvh09-81-5262pcdpooycau, tetanus toxoids and acellular pertussis vaccineAmanda Lapponi RT(R)[facility] HospitalRcvsdy95-62-8187mwfhfzqkdow influenzae type b vaccine, conjugate unspecified formulationGeisinger Medical Center03-11-2003haemophilus influenzae type b vaccine, HbOC conjugateAmanda Lapponi RT(R)[facility] HospitalFnyqhc18-44-8718fllxqsfao B vaccine, pediatric or pediatric/adolescent dosageAmanda Lapponi RT(R)[facility]03-11-2003 pneumococcal conjugate vaccine, 7 [facility] 25-76-9534kslvbsaqpwkh Conjugate, unspecified formulationAmanda Lapponi RT(R) [facility] HospitalGosuth50-12-1690osjubgqqnn vaccine, inactivatedAmanda Lapponi RT(R) [facility] HospitalNbidqb14-53-0685ljdfgfniz B vaccine, pediatric or pediatric/adolescent dosageAmanda Isis RT(R)[facility] Payers DatePayer CategoryPayerPolicy [id number]-[id number] 2021MedicaidPARAMOUNTPARAMOUNT MEDICAID PARAMOUNT ADVANTAGE MEDICAID [id number] 2021-[facility] [phone] [address] [place] [address] Medicaid [id number] 2021Medicaid [id number] 2.16840.1.980101.3.57[id number] 2.16840.1.731614.3.57[id number] 2.16840.1.709299.3.57[id number] 2.16840.1.080981.3.579.[id number] 2.840.1.417357.3.579.2.29986-36-7595Rfrfmuw7780388 2.16840.1.330104.3.579.2.23965-66-9314Qcgbcto4539044 2.16840.1.119239.3.579.2.65817-75-3252Culbdgk0317455 2.16840.1.501992.3.579.2.16699-68-3053Tgvnkbu631138005 2.16840.1.960917.3.579.2.8[id number] 2.16840.1.592174.3.579.2.728211-05-2863Ixokuse32000522 2.840.1.378562.3.579.2.470331-39-9311Seeycxb69939184 2.16840.1.829551.3.579.2.111994-91-1028Gltkxbg54765847 2.840.1.155000.3.579.2.117751-12-4192Wxdfrik55986942 2.840.1.604466.3.579.2.481895-19-2697Lvifkpi09457420 2.840.1.454279.3.579.2.633236-54-1044Yajxqsi59670298 2.840.1.025579.3.579.2.026206-64-1669Fltujug22353962 2.840.1.332420.3.579.2.650947-64-6793Fxtajmo75131733 2.840.1.562407.3.579.2.679808-33-3320Hfjosch91057435 2.840.1.652607.3.579.2.045004-34-4022Czprmbd77060524 2.840.1.425026.3.579.2.64676-92-2223Lyqmhqc86231525 2.840.1.915874.3.579.2.35833-12-6420Fscuhgt41134933 2.840.1.290108.3.579.2.74350-62-9600Ivcgxif28171173 2.840.1.145876.3.579.2.15354-22-0041Prwguzr807686520 2.840.1.002765.3.579.2.830625-39-5870Gfxfdre28013188 2.840.1.794919.3.579.2.389197-08-7469Xgxzjqi27341460 2.840.1.584242.3.579.2.646280-33-5773Yhdhqkv56109516 2.840.1.618341.3.579.2.615329-32-4185Ndiqlfp10702720 2.840.1.058077.3.579.2.995336-76-3195Aawotsc56567622 2.0.1.784644.3.579.2.150219-34-5471Kwsrtwd30533337 2.0.1.191669.3.579.2.004944-06-8634Llmamrx80624891 2.0.1.574315.3.579.2.247272-61-1514Mxukhlz955089833 2.840.1.767871.3.579.2.876111-60-3934Zxerzjp077367544 2.0.1.575079.3.579.2.580409-17-9646Eznjcbk90748408 2.840.1.114835.3.579.2.997834-02-3357Sjmkpbv27478078 2.0.1.633394.3.579.2.676814-02-3676Mubdkmc53637687 2.0.1.884339.3.579.2.112537-51-6302Wmbbrae76986687 2.0.1.611705.3.579.2.485448-45-7808Nohsxjw2672113 2.840.1.582160.3.579.2.988646-82-3543Nhokqzp8395570 2.840.1.277614.3.579.2.994688-92-6770Gdusixo1590934 2..840.1.731908.3.579.2.1259 [id number] [id number] 2.16.840.1.710986.3.579.2.849Nzceiio04294895 2.840.1.574209.3.579.2.261Hafgxzg84461634 2..840.1.242057.3.579.2.531 Social History DateTypeDetailFacilityStart: 12-30-2021 End: 57-15-2224Ifnpyeh smoking status NHISNever smoked tobaccoLancaster Municipal Hospital Start: 12-22-2021 End: 07-86-4763Mrcqetn intakeCurrent non-drinker of alcohol (finding)[facility]: 32-04-8450Hte Assigned At BirthNot on fileAvita Health System Ontario Hospitaltart: 12-19-2021 End: 16-68-1888Ikrolmqg to SARS-CoV-2 (event)Not sureAvita Health System Ontario Hospitaltart: 12-30-2021 End: 04-18-0475Olahknn use and exposureSmokeless tobacco non-userAvita Health System Ontario Hospitaltart: 10-13-2022 End: 81-17-1594Ujg Assigned At [facility]: 34-42-9840Ushdbyc Commentno one in household smokesChocking valley community hospital ClinicStart: 10-13-2022 End: 49-41-3080Cmiiqno of Social functionAvita Health System Ontario Hospitaltart: 50-05-6615Oxmse Depression Screening Dwijdvphjp6Jatvontny ClinicStart: 32-54-9938Kiz Assigned At [facility] Northtart: 07-17-2024 End: 27-90-1859Fcqnnnjki beverage intakeEx-drinker (finding)[facility] HealthcareHow often to you have a drink containing alcohol?NeverNOMS HealthcareStart: 92-28-3152Ihqkczg Commentcaffeine: noneNOMS HealthcareStart: 06-76-7333Huuwbx identityIdentifies as female gender (finding)[facility] HealthcareStart: 09-11-2024 End: 42-19-2126Rscyjgddz beverage intakeCurrent drinker of alcohol (finding) [facility] SystemStart: 69-97-0797Qopeaax Commentq 1x per monthProUniversity [facility] SystemStart: 03-03-2017 End: 47-77-5106CsqBoovgs (finding)[facility] SystemStart: 01-11-2025 Alcoholic beverage intakeLifetime non-drinker (finding)Darek [facility] Campusstefan [facility] Start: 87-86-2999djxxmgrzFnmiwhifjLakeHealth TriPoint Medical CenterHas the electric, gas, oil, or water company threatened to shut off services in your home in past 12Mo NoPChristus [facility]ier Emergency Hospital Health SystemHow often to you have a drink containing alcohol? Monthly or lessNOMS HealthcareHow often do you have 6 or more drinks on 1 occasion?Less than monthlyNOMS HealthcareHow hard is it for you to pay for the very basics like food, housing, medical care, and heatingSomewhat hardNOMS HealthcareDo you feel stress - tense, restless, nervous, or anxious, or unable to sleep at night because yourmind is troubled all the time - these days [OSQ] Only a littleNOMS Healthcare(I/We) worried whether (my/our) food would run out before (I/we) got money to buy more.Sometimes trueNOMS HealthcareStart: 79-04-4845Shrbnhl Commentcaffeine: occasionallyNOMS HealthcareNEGATED: Highlighted rowLakeHealth TriPoint Medical Center Medical Equipment Procedure CodeEquipment CodeEquipment Original TextEquipment IdentifierDatesTube Vent 4.8mm 1.32mm [facility] - [id number]: 28-50-0403Brch Malena Vernon Vent 520-181 - [id number]: 88-51-3651Rfth Gabo Valladares Bx/5 Bill - [id number]: 11-02-2017 Goals DatePatient GoalDesired Activity/StatePersonal health goalComment on above: Evaluation of progress towards goal: Safe dc transition from hospital to home. Personal health goal Functional Status EygsCegvhifcdePcujgqRhxcbnye71-48-1628Tapgldl Health Questionnaire 2 item (PHQ- 2) [Reported][facility] Gkufifztdr80-37-5320Cmlyg score [AUDIT-C]2 06/11/2025 12:16 PM EDT Mychart, GenericNOMS Aejwbakujg92-40-3014Hdb often to you have a drink containing alcohol?Monthly or less 06/11/2025 12:16 PM EDT Mychart, Generic Monthly or lessNOMS Hynrnrmqrv86-20-3741Apdzsdcxfx statusPatient does not drink 06/11/2025 12:16 PM EDT Mychart, Generic Patient does not drinkHannibal Regional Hospital 58-77-5097Fde often do you have 6 or more drinks on 1 occasion?Less than monthly 06/11/2025 12:16 PM EDT Mychart, Generic Less than monthlyHannibal Regional Hospital 29-18-1549Kma you deaf, or do you have serious difficulty hearingNo 08/21/2015 10:22 AM Angela Hernandez RN [facility] HospitalFthehs59-34-1755Bep you blind, or do you have serious difficulty seeing, even when wearing glassesNo 08/21/2015 10:22 AM Angela Hernandez RN [facility]11-13-2015Do you have serious difficulty walking or climbing stairsNo 08/21/2015 10:22 AM Angela Hernandez RN [facility]11-13-2015Do you have difficulty dressing or bathingNo 08/21/2015 10:22 AM Angela Hernandez RN [facility] Mental Status UueaDeeijdrmmcPhmctwQvularps46-37-2319Pulvoqb of a physical, mental, or emotional condition, do you have serious difficulty concentrating, remembering, or making decisionsNo 08/21/2015 10:22 AM Angela Hernandez RN [facility] Clinical Notes 11-17-2015 to 07-30-2025 Note Date & ZyisKpnoRyogacok93-95-0699 History of Present illness Narrative* Gualberto Vann MD - 07/30/2025 1:40 PM EDT UTI documented in this encounterHannibal Regional HospitalFplevauzek89-32-2500 History of Present illness Narrative* Laure Dumont RN - 07/18/2025 10:30 AM EDT Name: Charis Allen Date/Time of Service:07/18/2025 11:50 [...] Type Anes PTL Lv 3 Current 2 SAB 11/2024 1 SAB 06/2023 D&E Past Medical / Surgical History [...] of estimated date of delivery No Thalassemia (Tamazight, Vietnamese, Mediterranean, or background): MCV less than 80 No Neural tube defect (Meningomyelocele, Spina bifida, or Anencephaly) No Congenital heart defect No Down syndrome No Abdoulaye-Sachs (Ashkenazi Evangelical, Cajun, English Cameron) No Mima disease (Ashkenazi Evangelical) No Familial dysautonomia (Ashkenazi Evangelical) No Sickle cell disease or trait () No Hemophilia or other blood disorders No Muscular dystrophy No Cystic fibrosis No Nance's chorea No Other inherited genetic or chromosomal [...] - ASSESSMENT / PLAN Labs [facility] to [facility] per pt request. Printed orders for pt to take with. Aware she will need these completed prior to NOB. Appointments scheduled for 07/31/25 with OBUS and 08/18/25 with PPJ Laure Dumont RN 07/18/2025 11:50 AM documented in this encounterHannibal Regional HospitalTcxxuomeab59-69-5657 Miscellaneous Notes* Telephone Encounter - Doris Hernandez - 07/04/2025 12:58 PM EDT Spoke with Charis to let her know that Dr. Barbosa does not follow for headaches during and that she would need to follow with Neurology for headaches during her and transferred to Neurology documented in this encounterPremier Health09-26-2025 Telephone encounter Note* Telephone Encounter - Doris Hernandez - 07/04/2025 12:58 PM EDT Spoke with Charis to let her know that Dr. Barbosa does not follow for headaches during and that she would need to follow with Neurology for headaches during her and transferred to Neurology [facility]09-25-2025 Miscellaneous Notes* Telephone Encounter - Otilia Ivelisse - 07/03/2025 8:37 AM EDT Facility Maintenance Worker contacted the patient to offer to schedule from referral that was written by Xiao Ellis. She stated that she would prefer to schedule with neurosurgery. Facility Maintenance Worker transferred to neurosurgery. documented in this encounterPremier Health09-25-2025 Telephone encounter Note* Telephone Encounter - Otilia Ivelisse - 07/03/2025 8:37 AM EDT Facility Maintenance Worker contacted the patient to offer to schedule from referral that was written by Xiao Ellis. She stated that she would prefer to schedule with neurosurgery. Facility Maintenance Worker transferred to neurosurgery. [facility]09-05-2025 History of Present illness Narrative* Pete Thapa DO - 06/13/2025 10:40 AM EDTAssociated Problem(s): Acne vulgaris Problem is stable, will continue with current treatment plan. Call or return to clinic if any changes occur Orders: clindamycin (Cleocin T) 1 % external solution; Apply topically in the morning and before bedtime. APPLY TO AFFECTED AREAS ON FACE ONCE A DAY. * Pete Thapa DO - 06/13/2025 10:40 AM EDTAssociated Problem(s): Attention deficit hyperactivity disorder (ADHD), combined type improved significantly, continue current treatment Orders: methylphenidate ER (Concerta) 18 MG CR tablet; Take 1 tablet (18 mg) by mouth in the morning. Do not crush, chew, or split. * Pete Thapa DO - 06/13/2025 10:40 AM EDT Images from the original note were not [...] crush, chew, or split. documented in this [facility]09-03-2025 History of Present illness Narrative* Gualberto Vann MD - 06/11/2025 3:36 PM EDT UTI documented in this [facility]09-02-2025 History of Present illness Narrative* Gualberto Vann MD - 06/10/2025 8:45 AM EDT Images from the original note were not included. Gualberto Vann MD Obstetrics and Gynecology Patient: Charis [...] on its own without requiring a D&C procedure.She had an ultrasound following the miscarriage, which [...] to gross testing, coordination, and gait are normalor at baseline unless noted below. 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 Exact number and timing not specified. Etiology unclear at this time. Plan: - Refer to high pressure cleaner for comprehensive evaluation of recurrent miscarriages - Advise patient that future pregnancies may be complicated due to Chiari malformation, necessitating specialized care Chiari Malformation Assessment: Patient has a known diagnosis of Chiari malformation. This condition may complicate future pregnancies. Plan: - Emphasize importance of specialized care for any future pregnancies due to Chiari malformation - Ensure high pressure cleaner is aware of this condition for comprehensive planning Assessment & Plan documented in this encounterElizabeth Ville [address]Grrfsyztnq11-32-4223 Telephone encounter Note* Telephone Encounter - Otilia Gomez LPN - 03/19/2025 7:33 AM EDT Patient phones requesting refills as follows: BERENICE: 08/16/2023 FOV: none noted Patient will need follow up appointment, routed to [employer] system derm receptionist scheduler at this time. Requested Prescriptions Pending Prescriptions Disp Refills clindamycin (CLEOCIN) 1 % external solution [Pharmacy Med Name: CLINDAMYCIN PH 1% SOLUTION] 60 mL 0 Sig: APPLY TO AFFECTED AREAS ON FACE ONCE EVERYDAY Please review and advise. Otilia Gomez LPN [facility]06-11-2025 Miscellaneous Notes* Telephone Encounter - Otilia Gomez LPN - 03/19/2025 7:33 AM EDT Patient phones requesting refills as follows: BERENICE: 08/16/2023 FOV: none noted Patient will need follow up appointment, routed to [employer] system derm receptionist scheduler at this time. Requested Prescriptions Pending Prescriptions Disp Refills clindamycin (CLEOCIN) 1 % external solution [Pharmacy Med Name: CLINDAMYCIN PH 1% SOLUTION] 60 mL 0 Sig: APPLY TO AFFECTED AREAS ON FACE ONCE EVERYDAY Please review and advise. Otilia Gomez LPN documented in this encounterLancaster [facility] Hospital05-13-2025 Radiology Diagnostic study [facility] [place] [address] Ultrasound Report Signed Patient: Charis Allen MR#: [id number] : 2000 Acct:[id number] Age/Sex: 24 / F ADM Date: 5 Loc: ER Room: Type: [facility] ER Attending Dr: Ordering Provider: Yaritza Bauer APRN Date of Service: 02/18/25 US/US OB <= 14 weeks fetus: Abdominal Pain ([id number]) US/US OB transvaginal: R/O ECTOPIC Copies to: [...] Camacho M.D. 02/18/2025 8:45 PM Dictation Location: [employer] Tech: Roselia Hammad Transcribed By: REMINGTON 02/18/252044 Dictated By: Michael Camacho DO 02/18/252034 Signed By: 02/18/252044 [facility]04-02-2025 Telephone encounter Note* Telephone Encounter - Liz Oswald MA - 01/08/2025 8:50 AM EDT Patient phones requesting refills as follows: BERENICE: 01/04/2023 FOV: 02/19/2025 Requested Prescriptions Pending Prescriptions Disp Refills clindamycin (CLEOCIN) 1 % external solution 60 mL 0 Sig: APPLY TO AFFECTED AREAS ON FACE ONCE A DAY Please review and advise. Liz Oswald MA [facility]04-02-2025 Miscellaneous Notes* Telephone Encounter - Liz Oswald MA - 01/08/2025 8:50 AM EDT Patient phones requesting refills as follows: BERENICE: 01/04/2023 FOV: 02/19/2025 Requested Prescriptions Pending Prescriptions Disp Refills clindamycin (CLEOCIN) 1 % external solution 60 mL 0 Sig: APPLY TO AFFECTED AREAS ON FACE ONCE A DAY Please review and advise. Liz Oswald MA documented in this encounterLancaster Municipal Hospital04-01-2025 Telephone encounter Note * Telephone Encounter - Anish Levin MD - 01/07/2025 11:27 AM EDT Temporary refill until patient is seen as it has been greater than 1 year since last appointment. Please call patient and schedule a follow up appointment for acne within next 2 months. Anish Levin MD [facility]04-01-2025 Miscellaneous Notes* Telephone Encounter - Anish Levin MD - 01/07/2025 11:27 AM EDT Temporary refill until patient is seen as it has been greater than 1 year since last appointment. Please call patient and schedule a follow up appointment for acne within next 2 months. Anish Levin MD * Telephone Encounter - Lata Rider OCCA - 01/07/2025 8:21 AM EDT Patient phones requesting refills as follows: BERENICE: 08/16/23 Patient will need a follow up appointment, routed to receptionist scheduler. Requested Prescriptions Pending Prescriptions Disp Refills clindamycin (CLEOCIN) 1 % external solution [Pharmacy Med Name: CLINDAMYCIN PH 1% SOLUTION] 60 mL 3 Sig: APPLY TO AFFECTED AREAS ON FACE ONCE A DAY Please review and advise. RONALD Montenegro documented in this encounterLancaster Municipal Hospital04-01-2025 Telephone encounter Note * Telephone Encounter - Lata Rider OCCA - 01/07/2025 8:21 AM EDT Patient phones requesting refills as follows: BERENICE: 08/16/23 Patient will need a follow up appointment, routed to receptionist scheduler. Requested Prescriptions Pending Prescriptions Disp Refills clindamycin (CLEOCIN) 1 % external solution [Pharmacy Med Name: CLINDAMYCIN PH 1% SOLUTION] 60 mL 3 Sig: APPLY TO AFFECTED AREAS ON FACE ONCE A DAY Please review and advise. RONALD Montengero [facility]02-14-2025 Telephone encounter Note* Telephone Encounter - Lily Lutz - 11/22/2024 1:37 PM EST [facility] Bhvzeeojfo11-04-5352 Miscellaneous Notes* Telephone Encounter - Lily Lutz - 11/22/2024 1:37 PM EST [facility] [place] documented in this encounterHannibal Regional HospitalOcetkwycqz55-59-7207 History of Present illness Narrative* Luis Enrique Jennings DO - 11/04/2024 1:45 PM EST [facility] [address] [place] [phone] SUBJECTIVE: Patient ID (2000): Charis Allen is [...] 11/02/2017 Performed by Karthikeyan Lopez MD at [facility] APPENDECTOMY 2016 APPLICATION GRAFT PAPER PATCH EAR Right 06/04/2024 Performed by Mich Verde MD at [facility] BRAIN SURGERY CRANIOTOMY CHIARI DECOMPRESSION / N/A 01/27/2023 Performed by Ajay Barbosa MD at [facility] CYSTOSCOPY RETROGRADE PYELOGRAM Bilateral 11/30/2022 Performed by Jocelyne Hernandez MD at [facility] DILATION AND CURETTAGE OF UTERUS 07/31/2023 DIRECT LARYNGOSCOPY WITH BIOPSY BASE OF TONGUE LESION Right 08/27/2024 Performed by Luis Enrique Jennings DO at [facility] EUSTACHIAN TUBE DILATION Bilateral 11/02/2017 Performed by Karthikeyan Lopez MD at [facility] POSTERIOR LAMINECTOMY CERVICAL SINGLE LEVEL / C1 N/A 01/27/2023 Performed by Ajay Barbosa MD at [facility] REMOVAL TUBE EAR Right 06/04/2024 Performed by Mich Verde MD at [facility] TONSILLECTOMY TYMPANOSTOMY TUBE PLACEMENT TYMPANOTOMY WITH PERMANENET VENT TUBE INSERTION. 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 Social Drivers of Health Financial Resource Strain: Patient Declined (11/12/2023) Received from [facility] Overall Financial Resource Strain (CARDIA) Difficulty of Paying Living Expenses: Patient declined Food Insecurity: No Food Insecurity (08/20/2024) Hunger Screening Food Insecurity - Worry: Never True Food Insecurity - Inability: Never True Transportation Needs: Patient Declined (11/12/2023) Received from [facility] PRAPARE - Transportation Lack of Transportation (Medical): Patient declined Lack of Transportation (Non-Medical): Patient declined Physical Activity: Patient Declined (11/12/2023) Received from [facility] Exercise Vital Sign Days of Exercise per Week: Patient declined Minutes of Exercise per Session: Patient declined Stress: Not on file Social Connections: Unknown (11/12/2023) Received from [facility] Social Connection and Isolation Panel [NHANES] Frequency of Communication with Friends and Family: Patient declined Frequency of Social Gatherings with Friends and Family: Patient declined Attends Nondenominational Services: Not on file Active Member of Clubs or Organizations: Patient declined Attends Club or Organization Meetings: Patient declined Marital Status: Patient declined Interpersonal Safety: Patient Declined (11/12/2023) Received from [facility] Humiliation, Afraid, Rape, and Kick questionnaire [...] sinus pain and sore throat. Negative for congestion,ear pain, postnasal drip and trouble swallowing. Respiratory: [...] is eating/drinking per norm. Biopsy site is well- healed on exam. - Return as needed. Scribe Statement: Scribed for and in the presence of Luis Enrique Jennings DO by Francisco Garcia (scribe). Francisco Garcia 11/04/2024 1:45 PM Provider Statement: I Luis Enrique Jennings DO personally performed the services described in the documentation as described bythe above named scribe in my presence. It [...] compliance with treatment and risk factor reductions. Thepatient verbalized understanding and agreement to the plan. Please note that parts of this chart were generated using voice recognition Coquel[employer] dictation software. Although every effort was made to ensure the accuracy of this automated revenue tax specialist, some errors in revenue tax specialist may have occurred. documented in this [facility]01-27-2025 Instructions* Patient Instructions* Francisco Garcia - 11/04/2024 1:45 PM EST - Patient has no pain and is eating/drinking per norm. Biopsy site is well- healed on exam. - Return as needed. documented in this [facility]01-20-2025 History of Present illness Narrative* Gualberto Vann MD - 10/28/2024 10:57 AM EST UP documented in this encounterHannibal Regional HospitalXoacjgdibv35-19-2811 History of Present illness Narrative* Gualberto Vann MD - 10/23/2024 3:15 PM EST Images from the original note were not included. Gualberto Vann MD Obstetrics and Gynecology Patient: Charis [...] a blood test. She has not experienced anyspotting or other -related symptoms. The patient has [...] to gross testing, coordination, and gait are normalor at baseline unless noted below. Physical Exam [...] applicator into the vagina at bedtime for 7days Vaginal burning - GENITAL MYCOPLASMAS JANET, SWAB [...] the product causing irritation via the patient portalfor further evaluation. c) Schedule a follow-up appointment in 2 weeks to assess the patient's symptoms and response to treatment. documented in this encounterHannibal Regional HospitalYsesprmftq72-38-3163 History of Present illness Narrative* Pete Singhdenisse, DO - 10/21/2024 1:40 PM EST Images from the original note were not [...] Diagnosis Date Blood type A+ Chiari syndrome ([facility]) 12/27/2022 History of chicken pox Migraines ([facility]) Seasonal allergies Family History: Family History Problem [...] Insecurity: No Food Insecurity (08/20/2024) [facility] Within the past 12 months [...] with Friends and Family: Patient declined Attends Nondenominational Services: Not on file Active Member of [...] 30 tablet, Rfl: 0 documented in this encounterHannibal Regional HospitalJooxedqlmi46-47-5270 Telephone encounter Note* Telephone Encounter - Otilia Gomez LPN - 09/12/2024 8:39 AM EST Patient phones requesting refills as follows: BERENICE: 08/16/2023 FOV: 10/10/2024 Requested Prescriptions Pending Prescriptions Disp Refills clindamycin (CLEOCIN) 1 % external solution [Pharmacy Med Name: CLINDAMYCIN PH 1% SOLUTION] 60 mL 3 Sig: APPLY TO AFFECTED AREAS ON FACE ONCE A DAY Please review and advise. Otilia Gomez LPN [facility] [facility] Miscellaneous Notes* Telephone Encounter - Otilia Gomez LPN - 09/12/2024 8:39 AM EST Patient phones requesting refills as follows: BERENICE: 08/16/2023 FOV: 10/10/2024 Requested Prescriptions Pending Prescriptions Disp Refills clindamycin (CLEOCIN) 1 % external solution [Pharmacy Med Name: CLINDAMYCIN PH 1% SOLUTION] 60 mL 3 Sig: APPLY TO AFFECTED AREAS ON FACE ONCE A DAY Please review and advise. Otilia Gomez LPN documented in [facility] History of Present illness Narrative* Luis Enrique Jennings DO - 09/11/2024 10:30 AM EST Images from the original note were not included. [facility] - ENT [address] [place] [address], [address] [place] [id number] SUBJECTIVE: Patient ID (2000): Charis Allen is [...] 11/02/2017 Performed by Karthikeyan Lopez MD at [facility] APPENDECTOMY 2016 APPLICATION GRAFT PAPER PATCH EAR Right 06/04/2024 Performed by Mich Verde MD at [facility] CRANIOTOMY CHIARI DECOMPRESSION / N/A 01/27/2023 Performed by Ajay Barbosa MD at [facility] CYSTOSCOPY RETROGRADE PYELOGRAM Bilateral 11/30/2022 Performed by Jocelyne Hernandez MD at [facility] DILATION AND CURETTAGE OF UTERUS 07/31/2023 DIRECT LARYNGOSCOPY WITH BIOPSY BASE OF TONGUE LESION Right 08/27/2024 Performed by Luis Enrique Jennings DO at [facility] EUSTACHIAN TUBE DILATION Bilateral 11/02/2017 Performed by Karthikeyan Lopez MD at [facility] POSTERIOR LAMINECTOMY CERVICAL SINGLE LEVEL / C1 N/A 01/27/2023 Performed by Ajay Barbosa MD at [facility] REMOVAL TUBE EAR Right 06/04/2024 Performed by Mich Verde MD at [facility] TONSILLECTOMY TYMPANOSTOMY TUBE PLACEMENT TYMPANOTOMY WITH PERMANENET VENT TUBE INSERTION. 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 Social Drivers of Health Financial Resource Strain: Patient Declined (11/12/2023) Received from [facility] Overall Financial Resource Strain (CARDIA) Difficulty of Paying Living Expenses: Patient declined Food Insecurity: No Food Insecurity (08/20/2024) Hunger Screening Food Insecurity - Worry: Never True Food Insecurity - Inability: Never True Transportation Needs: Patient Declined (11/12/2023) Received from [facility] PRAPARE - Transportation Lack of Transportation (Medical): Patient declined Lack of Transportation (Non-Medical): Patient declined Physical Activity: Patient Declined (11/12/2023) Received from [facility] Exercise Vital Sign Days of Exercise per Week: Patient declined Minutes of Exercise per Session: Patient declined Stress: Not on file Social Connections: Unknown (11/12/2023) Received from [facility] Social Connection and Isolation Panel [NHANES] Frequency of Communication with Friends and Family: Patient declined Frequency of Social Gatherings with Friends and Family: Patient declined Attends Nondenominational Services: Not on file Active Member of Clubs or Organizations: Patient declined Attends Club or Organization Meetings: Patient declined Marital Status: Patient declined Interpersonal Safety: Patient Declined (11/12/2023) Received from [facility], [facility] Humiliation, Afraid, Rape, and Kick questionnaire [...] DO by Francisco Garcia (olu). Francisco Garcia 09/11/2024 11:15 AM Provider Statement: I Luis Enrique Jennings DO personally performed the services described in the documentation as described bythe above named scribe in my presence. It [...] another physician or qualified healthcare provider not separatelyreported (tympanogram, audiogram, imaging). The patient was counseled regarding prognosis, risks and benefits of treatment options, impressions, importance of compliance with treatment and risk factor reductions. The patient verbalized understanding and agreement to the plan. Please note that parts of this chart were generated using voice recognition Coquelux dictation software. Although every effort was made to ensure the accuracy of this automated revenue tax specialist, some errors in revenue tax specialist may have occurred. documented in this encounterPremier Health12-04-2024 Instructions* Patient Instructions* Francisco Garcia - 09/11/2024 10:30 AM EST - Reviewed patient's surgical pathology from direct laryngoscopy with biopsy of base of tongue lesion. This showed benign papillomatous neoplasm. - On exam, biopsy site healing well with granulation/exudates from cautery. - Return to ENT in 4-6 weeks if needed to check biopsy site. documented in this encounterPremier Health12-03-2024 History of Present illness Narrative* Mich Verde MD - 09/10/2024 4:15 PM EST Images from the original note were not [...] 11/02/2017 Performed by Karthikeyan Lopez MD at [facility] APPENDECTOMY 2016 APPLICATION GRAFT PAPER PATCH EAR Right 06/04/2024 Performed by Mich Verde MD at [facility] CRANIOTOMY CHIARI DECOMPRESSION / N/A 01/27/2023 Performed by Ajay Barbosa MD at [facility] CYSTOSCOPY RETROGRADE PYELOGRAM Bilateral 11/30/2022 Performed by Jocelyne Hernandez MD at [facility] DILATION AND CURETTAGE OF UTERUS 07/31/2023 DIRECT LARYNGOSCOPY WITH BIOPSY BASE OF TONGUE LESION Right 08/27/2024 Performed by Luis Enrique Jennings DO at [facility] EUSTACHIAN TUBE DILATION Bilateral 11/02/2017 Performed by Karthikeyan Lopez MD at [facility] POSTERIOR LAMINECTOMY CERVICAL SINGLE LEVEL / C1 N/A 01/27/2023 Performed by Ajay Barbosa MD at [facility] REMOVAL TUBE EAR Right 06/04/2024 Performed by Mich Verde MD at [facility] TONSILLECTOMY TYMPANOSTOMY TUBE PLACEMENT TYMPANOTOMY WITH PERMANENET VENT TUBE INSERTION. TYMPANOTOMY WITH NONPERMANENT TUBE IN LEFT EAR Bilateral 11/02/2017 Performed by Karthikeyan Lopez MD at [facility] SOCIAL HISTORY Social History Tobacco Use Smoking [...] Martin MA 09/10/24 1605 documented in this encounterPremier Health12-03-2024 Instructions* Patient Instructions* Linette Gurrola - 09/10/2024 4:15 PM EST - Microscopic examination was completed in office today. The ears appear to be healing well postoperatively. Cerumen was removed for the bilateral canals. - Continue watchful monitoring. documented in this encounterPremier Health12-03-2024 History of Present illness Narrative* SCOTT Hanley - 09/10/2024 3:30 PM EST AUDIOLOGIC EVALUATION Reason for visit: CC: Patient [...] on 07/25/23, improvement of hearing sensitivity was notedon the right. All other thresholds stable. Reliability: good Speech Audiometry: SRT/METAL COATER in good agreement WRS: Right Ear: Excellent (100%) Left Ear: Excellent (100%) RECOMMENDATIONS: Follow up with Dr. Mich Verde Retest as needed Patrick Hanley, [facility] Commissioner documented in this encounterPremier Health11-27-2024 Miscellaneous Notes* Telephone Encounter - Lata Otoole RN - 09/04/2024 8:42 AM EST Called patient and discussed with her that [...] Monday at 1030 am. documented in this encounterPremier Health11-27-2024 Telephone encounter Note* Telephone Encounter - Lata Otoole RN - 09/04/2024 8:42 AM EST Called patient and discussed with her that [...] Jennings on Monday at 1030 am. [facility]11-26-2024 History of Present illness Narrative* Rahul Jennings DO - 09/03/2024 5:04 PM EST To help with acute post op swelling. documented in this encounterPremier Health11-21-2024 Miscellaneous Notes* Telephone Encounter - Orin Townsend - 08/29/2024 9:21 AM EST Patient called 08/29 because she needs a return to work note. Patient had a biopsy done on 08/27 and will be going back to work on 08/30. Patient said it is ok [facility] * Telephone Encounter - LIAM Carter - 08/29/2024 9:21 AM EST Is patient okay to go back to work 08/30/24? * Telephone Encounter - Luis Enrique Jennings DO - 08/29/2024 9:21 AM EST As long as she is no longer taking norco, she may return to work. Please provide letter. Thank you. * Telephone Encounter - LIAM Carter - 08/29/2024 9:21 AM EST Left a message for the patient informing her that as long as she is no longer taking the Brimfield painmedication she can return to work tomorrow 08/30/24. I will [facility] this [facility] Asked her to give the office a call back if she is still taking her Brimfield and we can correct the note for a later date. documented in this encounterPremier Health11-21-2024 Telephone encounter Note* Telephone Encounter - Orin Townsend - 08/29/2024 9:21 AM EST Patient called 08/29 because she needs a return to work note. Patient had a biopsy done on 08/27 and will be going back to work on 08/30. Patient said it is ok [facility] [employer] [id number] Telephone encounter Note* Telephone Encounter - LIAM Carter - 08/29/2024 9:21 AM EST Is patient okay to go back to work 08/30/24? [facility]11-21-2024 Telephone encounter Note* Telephone Encounter - Luis Enrique Jennings DO - 08/29/2024 9:21 AM EST As long as she is no longer taking norco, she may return to work. Please provide letter. Thank you. [facility] [employer] [id number] Telephone encounter Note* Telephone Encounter - LIAM Carter - 08/29/2024 9:21 AM EST Left a message for the patient informing her that as long as she is no longer taking the Brimfield painmedication she can return to work tomorrow 08/30/24. I will upload this letter to her mychart. Asked her to give the office a call back if she is still taking her Brimfield and we can correct the note for a later date. [facility]11-12-2024 Instructions* Pre-Procedure Instructions - Carrol Schaffer RN - 08/20/2024 11:30 AM EST Your surgery/procedure is scheduled at [facility] on 08/27/2024 at 1245p Arrival Time 1045a [facility] Address: [address] [place] [address], [facility], [address] [place] [address] in the Emergency Center Parking lot. Report to the senior front end developer in the Emergency/Surgery Registration lobby of the hospital. Notify your SURGEON if you develop any illness such as a cold, cough, fever, sore throat, vomiting or are hospitalized between now and your surgery. Please call Pre-Admission Clinic at [phone] if you have any questions prior to surgery. For questions the morning of surgery, call the Pre-op Department at [phone]. Medication Instructions (Do not stop your medications [...] weekly, hold 1 week prior to surgery: Johnny . Blood thinners: Please contact your prescribing [...] specifically instructed by your surgeon to hold. STOPtaking all herbal products/teas one week prior to [...] would like to schedule therapy at a [facility] facility, please call [phone] ([phone]). Do not use lotions, creams, powders, perfume, make up, cologne or after-shaves day of surgery. Remove ALL jewelry including wedding rings, body piercings, hair extensions that contain metal, nail fijian, make-up, and contact lens. You may brush your teeth the morning of surgery, but do not swallow the water. Wear your dentures and partial plates to the hospital (no adhesive). Shower the night the before. If applicable, use the CHG (chlorhexidine gluconate) soap or wipes. Please be advised, [facility] has transitioned to a cashless payment system. What should I bring to the hospital? If you received a green plastic bracelet, bring it with you the day of surgery and your nurse will put it on you. Eyeglass or contact lens case If you will be spending the night, please bring personal care items and leave them in the car untilyou are taken to your room after surgery. [...] following some types of surgeries involving the eyes,ears, sinuses and throat. Always follow your doctor's [...] RIGHTS AND RESPONSIBILITIES As a patient at [facility], you have the right to: Receive medical care and be informed of who is taking care of you Be treated with dignity and respect Have a family member/union representative of choice and your physician notified of your admission Receive information and actively participate in decisions about your care and treatment Refuse care, treatment and services Decide who may provide your support and speak for you Access congregational and spiritual services Participate in ethical issues [...] of hospital charges and payment methods Patient/patient union representative responsibilities are to: Provide information about health status to facilitate care, treatment and services Follow the treatment, plan, keep appointments and speak up when you do not understand the plan Respect the rights of other patients and healthcare personnel Follow organizational rules and regulations that support quality care and a safe environment Fulfill financial obligations as promptly as possible [facility]11-12-2024 Miscellaneous Notes* Pre-Procedure Instructions - Carrol Schaffer RN - 08/20/2024 11:30 AM EST Your surgery/procedure is scheduled at [facility] on 08/27/2024 at 1245p Arrival Time 1045a [facility] Address: [address] [place] [address], [address] [place] [address] in the Emergency Center Parking lot. Report to the senior front end developer in the Emergency/Surgery Registration lobby of the hospital. Notify your SURGEON if you develop any illness such as a cold, cough, fever, sore throat, vomiting or are hospitalized between now and your surgery. Please call Pre-Admission Clinic at [phone] if you have any questions prior to surgery. For questions the morning of surgery, call the Pre-op Department at [phone]. Medication Instructions (Do not stop your medications [...] weekly, hold 1 week prior to surgery: Johnny . Blood thinners: Please contact your prescribing [...] specifically instructed by your surgeon to hold. STOPtaking all herbal products/teas one week prior to [...] would like to schedule therapy at a [facility] facility, please call [phone] ([phone]). Do not use lotions, creams, powders, perfume, make up, cologne or after-shaves day of surgery. Remove ALL jewelry including wedding rings, body piercings, hair extensions that contain metal, nail fijian, make-up, and contact lens. You may brush your teeth the morning of surgery, but do not swallow the water. Wear your dentures and partial plates to the hospital (no adhesive). Shower the night the before. If applicable, use the CHG (chlorhexidine gluconate) soap or wipes. Please be advised, [facility] has transitioned to a cashless payment system. What should I bring to the hospital? If you received a green plastic bracelet, bring it with you the day of surgery and your nurse will put it on you. Eyeglass or contact lens case If you will be spending the night, please bring personal care items and leave them in the car untilyou are taken to your room after surgery. [...] following some types of surgeries involving the eyes,ears, sinuses and throat. Always follow your doctor's [...] RIGHTS AND RESPONSIBILITIES As a patient at [facility], you have the right to: Receive medical care and be informed of who is taking care of you Be treated with dignity and respect Have a family member/union representative of choice and your physician notified of your admission Receive information and actively participate in decisions about your care and treatment Refuse care, treatment and services Decide who may provide your support and speak for you Access congregational and spiritual services Participate in ethical issues [...] of hospital charges and payment methods Patient/patient union representative responsibilities are to: Provide information about health status to facilitate care, treatment and services Follow the treatment, plan, keep appointments and speak up when you do not understand the plan Respect the rights of other patients and healthcare personnel Follow organizational rules and regulations that support quality care and a safe environment Fulfill financial obligations as promptly as possible documented in this encounterPremier Health11-09-2024 History of Present illness Narrative* Gualberto Vann MD - 08/17/2024 1:16 PM EST Flagyl documented in this encounterHannibal Regional [id number] History of Present illness Narrative* Gualberto Vann MD - 08/13/2024 1:45 PM EST Images from the original note were not included. Gualberto Vann MD Obstetrics and Gynecology Patient: Charis [...] with discharge, , or bleeding. She is notcurrently on any hormones and has had unprotected intercourse. Her last period was on the . Charis is not on any new medications but has recently started taking Cycle-PMS gummies for hormone balance. 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 b) Send a referral for mental health services. c) Encourage the patient to attend at least one session to evaluate the potential benefits of therapy. 4. Cycle-PMS gummies for hormone balance: - Patient recently started taking Cycle-PMS gummies containing Dong Ildaai - Plan: a) Advise the patient to continue taking the gummies as directed. b) Monitor for any side effects, such as breast tenderness. c) Instruct the patient to contact the clinic if any issues arise or if she needs to discontinue the gummies. documented in this encounterHannibal Regional [id number] Miscellaneous Notes* Telephone Encounter - Luis Enrique Jennings DO - 08/07/2024 12:43 PM EDT Surgery Scheduling Request 08/07/24 Patient: Charis Allen : 2000 Surgical Procedure(s): Direct laryngoscopy With biopsy of right base of tongue lesion Side(s): Right Anesthesia: General Surgery Time: 30 minutes Facility Preference: [facility] Destination: Outpatient Preop Anesthesia Appointment?: Yes Lab Testing?: No Medical Clearance Required?: No Does medical clearance include perioperative management of anticoagulants? No When should patient follow up after surgery? 1-[address] Jennings documented in this encounterPremier Health10-30-2024 Telephone encounter Note* Telephone Encounter - Luis Enrique Jennings DO - 08/07/2024 12:43 PM EDT Surgery Scheduling Request 08/07/24 Patient: Charis Allen : 2000 Surgical Procedure(s): Direct laryngoscopy With biopsy of right base of tongue lesion Side(s): Right Anesthesia: General Surgery Time: 30 minutes Facility Preference: [facility] Destination: Outpatient Preop Anesthesia Appointment?: Yes Lab Testing?: No Medical Clearance Required?: No Does medical clearance include perioperative management of anticoagulants? No When should patient follow up after surgery? 1[facility] [facility] Phone: [phone] History of Present illness Narrative* Luis Enrique Jennings DO - 08/07/2024 10:00 AM EDT Images from the original note were not included. [facility] [address] [place] [facility] [id number] SUBJECTIVE: Patient ID (2000): Charis Allen is [...] diet to see if it would help, whichshe states had no effect. Patient has allergies but does not have an rigger up. She takes Claritin.She takes a throat numbing spray when she [...] 11/02/2017 Performed by Karthikeyan Lopez MD at [facility] APPENDECTOMY 2016 APPLICATION GRAFT PAPER PATCH EAR Right 06/04/2024 Performed by Mich Verde MD at [facility] CRANIOTOMY CHIARI DECOMPRESSION / N/A 01/27/2023 Performed by Ajay Barbosa MD at [facility] CYSTOSCOPY RETROGRADE PYELOGRAM Bilateral 11/30/2022 Performed by Jocelyne Hernandez MD at [facility] DILATION AND CURETTAGE OF UTERUS 07/31/2023 EUSTACHIAN TUBE DILATION Bilateral 11/02/2017 Performed by Karthikeyan Lopez MD at [facility] POSTERIOR LAMINECTOMY CERVICAL SINGLE LEVEL / C1 N/A 01/27/2023 Performed by Ajay Barbosa MD at [facility] REMOVAL TUBE EAR Right 06/04/2024 Performed by Mich Verde MD at [facility] TONSILLECTOMY TYMPANOSTOMY TUBE PLACEMENT TYMPANOTOMY WITH PERMANENET VENT TUBE INSERTION. 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 Social Drivers of Health Financial Resource Strain: Patient Declined (11/12/2023) Received from [facility], [facility] Overall Financial Resource Strain (CARDIA) Difficulty of Paying Living Expenses: Patient declined Food Insecurity: No Food Insecurity (08/20/2024) Hunger Screening Food Insecurity - Worry: Never True Food Insecurity - Inability: Never True Transportation Needs: Patient Declined (11/12/2023) Received from [facility], [facility] PRAPARE - Transportation Lack of Transportation (Medical): Patient declined Lack of Transportation (Non-Medical): Patient declined Physical Activity: Patient Declined (11/12/2023) Received from [facility] Exercise Vital Sign Days of Exercise per Week: Patient declined Minutes of Exercise per Session: Patient declined Stress: Not on file Social Connections: Unknown (11/12/2023) Received from [facility] Social Connection and Isolation Panel [NHANES] Frequency of Communication with Friends and Family: Patient declined Frequency of Social Gatherings with Friends and Family: Patient declined Attends Nondenominational Services: Not on file Active Member of Clubs or Organizations: Patient declined Attends Club or Organization Meetings: Patient declined Marital Status: Patient declined Interpersonal Safety: Patient Declined (11/12/2023) [facility] Humiliation, Afraid, Rape, and Kick questionnaire [...] Continuous Caden Thomas MD 100 mL/hr at 851 100 mL/hr at 08/27/24 0851 lidocaine PF [...] flush 3 mL 3 mL intravenous Q12H [facility] Caden Thomas MD REVIEW OF SYSTEMS: Review [...] Reviewed patient's previous flexible laryngoscopy video with Sadia. This showed a ujacu-yhzb-ns-tongue lesion that is possibly a papilloma versus [...] be put on a regimen by an rigger up or undergo immunotherapy if indicated. She respectfully declined at this time. Discussed a potential allergy regimen: Flonase Sensimist twice daily, Zyrtec daily, Astelin spray twice daily. Discussed other options as well: nasal irrigations, nasal sprays. - Discussed that sore throat can also be caused by reflux issues. Reflux issues may not always haveobvious symptoms. Went over options to work up for this: esophagram, EGD with GI doctor, diet modifications. - Reflux diet and lifestyle modifications discussed. Patient to avoid caffeine, carbonated beverages, alcohol, fried/fatty foods, citric acid based foods (tomatoes), and eating within 3 hours of bed.Also, consider placing 3 inch blocks under headboard of bed. - Patient would like to consider this option after biopsy. -Risks of direct laryngoscopy with biopsy: Bleeding, infection, pain, anesthesia complications, perforation of the esophagus, injury to the teeth or voice box, change in the voice, hoarseness, changeto swallowing. - Patient was advised to avoid [...] covered benefit. Patient may call Jamil at [phone] to schedule surgery. - POSTOP INSTRUCTIONS You [...] concerns please do not hesitate to call [phone] Dr. Luis Enrique Jennings Scribe Statement: Scribed for and in the presence of Luis Enrique Jennings DO by Francisco Garcia (scribe). Francisco Garcia 08/07/2024 10:33 AM Provider Statement: I Luis Enrique Jennings DO personally performed the services described in the documentation as described bythe above named scribe in my presence. It [...] reported (tympanogram, audiogram, imaging). The patient was counseledregarding prognosis, risks and benefits of treatment options, impressions, importance of compliancewith treatment and risk factor reductions. The patient verbalized understanding and agreement to the plan. Please note that parts of this chart were generated using voice recognition Coquelux dictation software. Although every effort was made to ensure the accuracy of this automated revenue tax specialist, some errors in revenue tax specialist may have occurred. documented in this encounterUniversity Hospitals Parma Medical CenterIndex10-30-2024 Instructions* Patient Instructions* Francisco Garcia - 08/07/2024 10:00 AM EDT - Reviewed patient's CT neck soft tissue. This was unremarkable. - Reviewed patient's previous flexible laryngoscopy video with Sadia. This showed a yttbm-nsvl-qa-tongue lesion that is possibly a papilloma versus [...] be put on a regimen by an rigger up or undergo immunotherapy if indicated. She respectfully declined at this time. Discussed a potential allergy regimen: Flonase Sensimist twice daily, Zyrtec daily, Astelin spray twice daily. Discussed other options as well: nasal irrigations, nasal sprays. - Discussed that sore throat can also be caused by reflux issues. Reflux issues may not always haveobvious symptoms. Went over options to work up for this: esophagram, EGD with GI doctor, diet modifications. - Reflux diet and lifestyle modifications discussed. Patient to avoid caffeine, carbonated beverages, alcohol, fried/fatty foods, citric acid based foods (tomatoes), and eating within 3 hours of bed.Also, consider placing 3 inch blocks under headboard of bed. - Patient would like to consider this option after biopsy. -Risks of direct laryngoscopy with biopsy: Bleeding, infection, pain, anesthesia complications, perforation of the esophagus, injury to the teeth or voice box, change in the voice, hoarseness, changeto swallowing. - Patient was advised to avoid [...] covered benefit. Patient may call Jamil at [phone] to schedule surgery. - POSTOP INSTRUCTIONS You [...] concerns please do not hesitate to call [phone] [facility] documented in this encounterPremier Health10-17-2024 Instructions* Patient Instructions* Olga Thompson MA - 07/25/2024 12:39 PM [...] may be alternated with the antifungal. Additional applicationsshould be made following activities such as manual work, sports activities, swimming, or bathing which may remove the coating of the medication from the nails. Cover entire nail and nail bed with medication. Allow a small amount of the medication to get underneath the tip of the nail. Do not force under nail. Let the medication dry thoroughly. No protectivedressing or covering is required unless specified during office visit. Use antifungal powder or spray to disinfect your shoes. Use LYSOL spray after each use to disinfectyour bathing area. You can also use TINACTIN or DESENEX spray on feet and in shoes. CEDAR balls/sachet can be used in shoes. documented in this encounterL[facility]10-17-2024 NoteHNO ID: [id number] Author: ARLET DELGADO DPM Service: ? Author Type: Physician [...] Olga Thompson MA acting as scribe for Arlet Delgado DPM. July 25, 2024 12:18 PM I spent 20 minutes on the date of the service which included preparing to see the patient, [id number]-[id number]-ihsq patient care, completing clinical documentation, obtaining and/or reviewing separately obtained history, performing a medically appropriate examination, counseling and educating the patient/family/caregiver, ordering medications, tests and care coordination (not separately reported). Time did not include procedure time. I agree with the Chief Complaint, ROS, and Past Histories independently gathered by the clinical it support technician and the remaining scribed note accurately describes my personal service to the patient. This document has been created with the use of voice recognition technology. It may contain inaccuracies, misspellings, inaccurate syntax or inappropriate word context that escaped review. [facility] History of Present illness Narrative* Arlet Delgado DPM - 07/25/2024 12:18 PM EDT Service Date: July 25, 2024 PCP: No [...] Olga Thompson MA acting as scribe for Arlet Delgado DPM. July 25, 2024 12:18 PM I spent 20 minutes on the date of the service which included preparing to see the patient, [id number]-[id number] patient care, completing clinical documentation, obtaining and/or reviewing separately obtainedhistory, performing a medically appropriate examination, counseling and educating the patient/family/caregiver, ordering medications, tests and care coordination (not separately reported). Time did not include procedure time. I agree with the Chief Complaint, ROS, and Past Histories independently gathered by the clinical it support technician and the remaining scribed note accurately describes my personal service to the patient. This document has been created with the use of voice recognition technology. It may contain inaccuracies, misspellings, inaccurate syntax or inappropriate word context that escaped review. Arlet Delgado DPM documented in this encounterLancaster [facility] Hospital10-09-2024 History of Present illness Narrative* JONAS Garrido - 07/17/2024 2:40 PM EDT Images from the original note were not included. Subjective Patient ID: Charis Allen is a 23 y.o. female who presents for Follow-up (Pt states she is herefor a follow up on her medication. Pt states she has no concerns at this time. ). ADHD Pt presents to the office for a medication check of methylphenidate, which she needs a refill of. She has been taking the medication daily without any issues and is tolerating the medication well. Ptdenies the symptoms listed below and feels well [...] Attention deficit hyperactivity disorder (ADHD), combined type ([facility]) - methylphenidate ER (Concerta) 18 MG CR tablet; Take 1 tablet (18 mg) by mouth in the morning. Do not crush, chew, or split.. Continue with current drug therapy. Call office for worsening of symptoms. Per FDA regulations, follow ups have to occur every 3 months. You verbalized understanding of these rules in order for [facility] filling medications. OARRS reviewed. All questions answered. Call the office with any other questions or concerns. documented in this encounterHannibal Regional [id number] Miscellaneous Notes* Telephone Encounter - Doris Mary - 07/17/2024 1:55 PM EDT Returned patient's call. No answer, left message on machine to call back. documented in this encounterPremier Health10-09-2024 Telephone encounter Note* Telephone Encounter - Doris Mary - 07/17/2024 1:55 PM EDT Returned patient's call. No answer, left message on machine to call back. [facility]10-07-2024 History of Present illness Narrative* Mich Verde MD - 07/15/2024 3:30 PM EDT Patient ID: Charis Allen is a 23 [...] twice daily for 1 week then twice weeklythereafter.., Disp: 30 g, Rfl: 3 ondansetron ODT [...] 11/02/2017 Performed by Karthikeyan Lopez MD at [facility] APPENDECTOMY 2016 APPLICATION GRAFT PAPER PATCH EAR Right 06/04/2024 Performed by Mich Verde MD at [facility] CRANIOTOMY CHIARI DECOMPRESSION / N/A 01/27/2023 Performed by Ajay Barbosa MD at [facility] CYSTOSCOPY RETROGRADE PYELOGRAM Bilateral 11/30/2022 Performed by Jocelyne Hernandez MD at [facility] SURGERY DILATION AND CURETTAGE OF UTERUS 07/31/2023 EUSTACHIAN TUBE DILATION Bilateral 11/02/2017 Performed by Karthikeyan Lopez MD at [facility] POSTERIOR LAMINECTOMY CERVICAL SINGLE LEVEL / C1 N/A 01/27/2023 Performed by Ajay Barbosa MD at [facility] REMOVAL TUBE EAR Right 06/04/2024 Performed by Mich Verde MD at [facility] TONSILLECTOMY TYMPANOSTOMY TUBE PLACEMENT TYMPANOTOMY WITH PERMANENET VENT TUBE INSERTION. TYMPANOTOMY WITH NONPERMANENT TUBE IN LEFT EAR Bilateral 11/02/2017 Performed by Karthikeyan Lopez MD at [facility] SOCIAL HISTORY Social History Tobacco Use Smoking [...] time of final signature. documented in this encounterPremier Health10-07-2024 Instructions* Patient Instructions* Gm Garcia - 07/15/2024 3:30 PM EDT - Microscopic examination was completed in office today. The ears appear generally healthy. - Continue watchful monitoring. - Follow-up with audiogram . documented in this encounterPremier Health09-25-2024 History of Present illness Narrative* Sadia Rai PA-C - 07/03/2024 10:45 AM EDT Images from the original note were not included. [facility] [address] [place] [address] [place] [id number] SUBJECTIVE: Patient ID (2002): Charis Allen is a 23 y.o. female presents today for Chief Complaint Patient presents with Sore Throat HPI: Charis is seen today with complaints of chronic throat pain. She reports that this has been anongoing issue for the past year. She states that her throat will feel sore and scratchy off and on,but she feels that the discomfort is present more often than not. When symptoms are present she endorses pain with swallowing and cough occasionally. She states that the discomfort is more pronouncedin the morning and seems to let up throughout the day, but remains present. She has a history of adenotonsillectomy roughly at age 8. Revision of adenoidectomy was completed in 2018, by Dr. Lopez.She denies a history of recurrent strep infections. She is a nonsmoker and drinks alcohol on occasion. She denies a history of GERD. She works in a [employer]. 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 HISTORY: Past Medical History: Diagnosis Date Cerebellar tonsillar ectopia (CMS-HCC) Concussion Multiple Dizziness Dysfunction of both eustachian tubes Head injury 2010 With LOC Headache History of chicken pox 2011 HL (hearing loss) Past Surgical History: Procedure Laterality Date ADENOIDECTOMY Bilateral 11/02/2017 Performed by Karthikeyan Lopez MD at [facility] APPENDECTOMY 2016 APPLICATION GRAFT PAPER PATCH EAR Right 06/04/2024 Performed by Mich Verde MD at [facility] CRANIOTOMY CHIARI DECOMPRESSION / N/A 01/27/2023 Performed by Ajay Barbosa MD at [facility] CYSTOSCOPY RETROGRADE PYELOGRAM Bilateral 11/30/2022 Performed by Jocelyne Hernandez MD at [facility] DILATION AND CURETTAGE OF UTERUS 07/31/2023 EUSTACHIAN TUBE DILATION Bilateral 11/02/2017 Performed by Karthikeyan Lopez MD at [facility] POSTERIOR LAMINECTOMY CERVICAL SINGLE LEVEL / C1 N/A 01/27/2023 Performed by Ajay Barbosa MD at [facility] REMOVAL TUBE EAR Right 06/04/2024 Performed by Mich Verde MD at [facility] TONSILLECTOMY TYMPANOSTOMY TUBE PLACEMENT TYMPANOTOMY WITH PERMANENET VENT TUBE INSERTION. 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 of Health Financial Resource Strain: Patient Declined (11/12/2023) [facility] Overall Financial Resource Strain (CARDIA) Difficulty of Paying Living Expenses: Patient declined Food Insecurity: No Food Insecurity (05/21/2024) Hunger Screening Food Insecurity - Worry: Never True Food Insecurity - Inability: Never True Transportation Needs: Patient Declined (11/12/2023) Received from [facility] PRAPARE - Transportation Lack of Transportation (Medical): Patient declined Lack of Transportation (Non-Medical): Patient declined Physical Activity: Patient Declined (11/12/2023) Received from [facility] Exercise Vital Sign Days of Exercise per Week: Patient declined Minutes of Exercise per Session: Patient declined Stress: Not on file Social Connections: Unknown (11/12/2023) Received from [facility] Social Connection and Isolation Panel [NHANES] Frequency of Communication with Friends and Family: Patient declined Frequency of Social Gatherings with Friends and Family: Patient declined Attends Nondenominational Services: Not on file Active Member of Clubs or Organizations: Patient declined Attends Club or Organization Meetings: Patient declined Marital Status: Patient declined Interpersonal Safety: Patient Declined (11/12/2023) Received from [facility] Humiliation, Afraid, Rape, and Kick questionnaire [...] by mouth every 6 (six) hours as neededfor muscle spasms. 30 tablet 0 tretinoin (RETIN-A) [...] x1 year, odynophagia Post-operative Diagnosis: same Clinician: Sadai Rai PA-C Anesthesia: Oxymetazoline and 4% Lidocaine [...] of tongue with mild asymmetry and right kcqk-od-prunrt lesion, possible papilloma versus other, erythema of [...] complete at the time of final signature. Sadia Rai PA-C Counseling: The following elements of medical decision making were considered during this visit: History and physical. The patient was counseled regarding prognosis, risks and benefits of treatment options, impressions, importance of compliance with treatment and risk factor reductions. The patient verbalized understanding and agreement to the plan. Please note that parts of this chart were generated using voice recognition Coquelux dictation software. Although every effort was made to ensure the accuracy of this automated revenue tax specialist, some errors in revenue tax specialist may have occurred. Sadia Rai PA-C 07/03/24 1707 Sadia Rai PA-C 07/03/24 1719 documented in this encounterGifford Medical Centermisterbnb09-25-2024 Instructions* Patient Instructions* Sadia Rai PA-C - 07/03/2024 10:45 AM EDT [...] or at night. There are two esophageal sphinctersthat prevent reflux from entering the throat. One [...] becomes very irritated and inflamed when exposed. Thisirritation leads to the common symptoms of LPR and can result in laryngeal changes, which can oftenbe seen on exam by an ENT surgeon. How do you diagnose LPR? The diagnostic process always begins with a full ENT evaluation to look for the common signs of LPRin the throat. This may include a simple endoscopy procedure performed in the office. After this initial evaluation, there are two methods to confirm diagnosis. The first (and most common) method is a therapeutic trial of a medication to reduce the production of stomach acid. The second method is a24 hour pH probe. This is a test in which a catheter is placed through the nose into the stomach tomeasure acid levels at various points in the [...] With twice a day dosing, take the seconddose 30-45 minutes before dinner. Behavioral Changes: 1. Reduce the stress in your life as much as possible. Psychological stress increases the stomach sproduction of acid. 2. Try to stop smoking. Tobacco use dramatically increases the production of acid. 3. Change your mealtime habits. Eat small rather than large meals during the day. Do not eat 2-3 hours before going to bed. 4. Maintain a healthy weight. Extra weight around the abdomen increases the pressure on the stomachand predisposes to reflux. 5. Do not wear [...] the throat directly. Should I see a engineering production worker (stomach specialist)? (GI) At some point, you may be referred to a engineering production worker, either for help with diagnosis or to make sure you do not have any other complications from reflux. This decision is individualized for each patient. Please keep in mind that there is some controversy/disagreement about LPR between our twospecialties. Some gastroenterologists may even tell you that you do not have reflux and this may betrue. It may require 6-8 weeks of treatment [...] pork, quinonez, sausage, meat of fish packed inoil, luncheon meats, peanut butter, and frankfurters Eggs Prepared any way without added fat. Egg whites as desired. Limit to one whole egg a day. Vegetables Any (other than tomato-based products) prepared without added fat. Avoid tomato-based products. Fruit All except citrus. Avoid citrus. Breads Commercial whole grain or enriched bread, English bread, hamburger buns, hard or plain rolls,saltines, vanessa crackers, jose toast, Maltese muffins and bagels. Homemade biscuits, muffins, waffles, and pancakes. Commercial donuts and pastries. Cereals All cereals, hot or cold. All are fine. Potatoes & Substitutes Potatoes, rice, noodles, spaghetti and macaroni. Fried potatoes or rice.Anything prepared with cheese or white sauces. Fats Butter, margarine, vegetable oils, mayonnaise, brown gravy and reduced calorie/mildly seasonedsalad dressing. Lard, quinonez drippings, salt pork, meat [...] fruit whips prepared with skim milk, meringues, ross food cake, gelatin, jelly, jam, preserves, sugar, syrup, and honey. Ice cream (made with cream or whole milk), commercial pies, cakes, cookies, and puddings madewith whole milk. Any dessert containing chocolate, nuts, cream, coconut, or whole milk Seasonings & cough drops Mild seasonings. Hard candies. Hot or spicy seasonings. Cough drops that contain menthol or are mint/peppermint flavor. Handout information adapted from/provided by [facility]. documented in this encounterPremier Health09-09-2024 Miscellaneous Notes* Telephone Encounter - Gm Gomez LPN - 06/17/2024 9:27 AM EDT Pt lm for refill of concerta DDM [place] documented in this encounterHannibal Regional [id number] Telephone encounter Note* Telephone Encounter - Gm Gomez LPN - 06/17/2024 9:27 AM EDT Pt lm for refill of concerta DDM [place] [facility] [id number] History and physical note* JONAS Conte - 05/21/2024 1:15 PM EDT PRE-ADMISSION TESTING HISTORY AND PHYSICAL: EXAM DATE: [...] 11/02/2017 Performed by Karthikeyan Lopez MD at [facility] APPENDECTOMY 2016 CRANIOTOMY CHIARI DECOMPRESSION / N/A 01/27/2023 Performed by Ajay Barbosa MD at [facility] CYSTOSCOPY RETROGRADE PYELOGRAM Bilateral 11/30/2022 Performed by Jocelyne Hernandez MD at [facility] DILATION AND CURETTAGE OF UTERUS 07/31/2023 EUSTACHIAN TUBE DILATION Bilateral 11/02/2017 Performed by Karthikeyan Lopez MD at [facility] POSTERIOR LAMINECTOMY CERVICAL SINGLE LEVEL / C1 N/A 01/27/2023 Performed by Ajay Barbosa MD at [facility] TONSILLECTOMY TYMPANOSTOMY TUBE PLACEMENT TYMPANOTOMY WITH PERMANENET VENT TUBE INSERTION. 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 of Health Financial Resource Strain: Patient Declined (11/12/2023) Received from [facility] Overall Financial Resource Strain (CARDIA) Difficulty of Paying Living Expenses: Patient declined Food Insecurity: No Food Insecurity (05/21/2024) Hunger Screening Food Insecurity - Worry: Never True Food Insecurity - Inability: Never True Transportation Needs: Patient Declined (11/12/2023) Received from [facility] PRAP[facility] - Transportation Lack of Transportation (Medical): Patient declined Lack of Transportation (Non-Medical): Patient declined Physical Activity: Patient Declined (11/12/2023) Received from [facility] Exercise Vital Sign Days of Exercise per Week: Patient declined Minutes of Exercise per Session: Patient declined Stress: Not on file Social Connections: Unknown (11/12/2023) [facility] Social Connection and Isolation Panel [NHANES] Frequency of Communication with Friends and Family: Patient declined Frequency of Social Gatherings with Friends and Family: Patient declined Attends Nondenominational Services: Not on file Active Member of Clubs or Organizations: Patient declined Attends Club or Organization Meetings: Patient declined Marital Status: Patient declined Interpersonal Safety: Patient Declined (11/12/2023) Received from [facility], [facility] Humiliation, Afraid, Rape, and Kick questionnaire [...] twice daily for 1 week then twice weeklythereafter.., Disp: 30 g, Rfl: 3 ondansetron ODT [...] 170.2 cm (5' 7 ) Wt 70.4 kg(155 lb 3.3 oz) LMP 05/06/2024 (Approximate) SpO2 [...] the most recent lab values available in [facility] atthe time of the office visit, and additional [...] on 06/04/2024. JONAS Conte 05/21/24 1354 [facility]08-13-2024 History and physical note* JONAS Conte - 05/21/2024 1:15 PM EDT PRE-ADMISSION TESTING HISTORY AND PHYSICAL: EXAM DATE: [...] 11/02/2017 Performed by Karthikeyan Lopez MD at [facility] APPENDECTOMY 2016 CRANIOTOMY CHIARI DECOMPRESSION / N/A 01/27/2023 Performed by Ajay Barbosa MD at [facility] CYSTOSCOPY RETROGRADE PYELOGRAM Bilateral 11/30/2022 Performed by Jocelyne Hernandez MD at [facility] DILATION AND CURETTAGE OF UTERUS 07/31/2023 EUSTACHIAN TUBE DILATION Bilateral 11/02/2017 Performed by Karthikeyan Lopez MD at [facility] POSTERIOR LAMINECTOMY CERVICAL SINGLE LEVEL / C1 N/A 01/27/2023 Performed by Ajay Barbosa MD at [facility] TONSILLECTOMY TYMPANOSTOMY TUBE PLACEMENT TYMPANOTOMY WITH PERMANENET VENT TUBE INSERTION. 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 of Health Financial Resource Strain: Patient Declined (11/12/2023) [facility] Financial Resource Strain (CARDIA) Difficulty of Paying Living Expenses: Patient declined Food Insecurity: No Food Insecurity (05/21/2024) Hunger Screening Food Insecurity - Worry: Never True Food Insecurity - Inability: Never True Transportation Needs: Patient Declined (11/12/2023) Received from [facility] PRAP[facility] - Transportation Lack of Transportation (Medical): Patient declined Lack of Transportation (Non-Medical): Patient declined Physical Activity: Patient Declined (11/12/2023) Received from [facility] [employer] Exercise Vital Sign Days of Exercise per Week: Patient declined Minutes of Exercise per Session: Patient declined Stress: Not on file Social Connections: Unknown (11/12/2023) Received from [facility] Social Connection and Isolation Panel [NHANES] Frequency of Communication with Friends and Family: Patient declined Frequency of Social Gatherings with Friends and Family: Patient declined Attends Nondenominational Services: Not on file Active Member of Clubs or Organizations: Patient declined Attends Club or Organization Meetings: Patient declined Marital Status: Patient declined Interpersonal Safety: Patient Declined (11/12/2023) [facility], [facility] Humiliation, Afraid, Rape, and Kick questionnaire [...] twice daily for 1 week then twice weeklythereafter.., Disp: 30 g, Rfl: 3 ondansetron ODT [...] 170.2 cm (5' 7 ) Wt 70.4 kg(155 lb 3.3 oz) LMP 05/06/2024 (Approximate) SpO2 [...] the most recent lab values available in [facility] atthe time of the office visit, and additional [...] JONAS Conte 05/21/24 1354 documented in this encounterPremier Health08-13-2024 Instructions* Patient Instructions* Di Briscoe RN - 05/21/2024 1:15 PM EDT Your surgery/procedure is scheduled at [facility] on June 04, 2024 at 9:00 am Arrival Time 7:00 am [facility] Address: [address] [place] [address] Park in [address] Parking lot located on [facility]. Report to the Entrance B. Check in at the information desk the surgery. The waiting room located on the second floor. If you have any questions prior to surgery, please call Pre-Admission Clinic at [phone] between 7:30 am and 4:30 pm Monday through Monday. If you have questions the morning of surgery, please call the Pre-op Department at [phone]. Notify your SURGEON if you develop any [...] specifically instructed by your surgeon to stop. STOPtaking all herbal products/teas one week prior to [...] piercings ,hair extensions that contain metal, nail fijian, make-up, and contact lens. You may brush [...] items and leave them in the car untilyou are taken to your room after surgery. [...] following some types of surgeries involving the eyes,ears, sinuses and throat. Always follow your doctor's [...] RIGHTS AND RESPONSIBILITIES As a patient at [facility], you have the right to: Receive medical care and be informed of who is taking care of you Be treated with dignity and respect Have a family member/union representative of choice and your physician notified of your admission Receive information and actively participate in decisions about your care and treatment Refuse care, treatment and services Decide who may provide your support and speak for you Access congregational and spiritual services Participate in ethical issues [...] of hospital charges and payment methods Patient/patient union representative responsibilities are to: Provide information about health status to facilitate care, treatment and services Follow the treatment, plan, keep appointments and speak up when you do not understand the plan Respect the rights of other patients and healthcare personnel Follow organizational rules and regulations that support quality care and a safe environment Fulfill financial obligations as promptly as possible documented in this encounterPremier Health06-10-2024 History of Present illness Narrative* Mich Verde MD - 03/18/2024 2:30 PM EDT Patient ID: Charis Allen is a 23 y.o. female. Chief Complaint: Chief Complaint Patient presents with Earache History: Charis Allen is a pleasant 23 y.o. female who presents today for otitis media. She waslast seen in clinic on 03/06/2024 by Sadia Rai PA-C, ENT. Patient reports experience otalgia, otorrhea, pruritus, and foul odor of the right ear which occursafter routine cleanings. Patient endorses a history of recurrent swimmer's ear and PE tubes as a child. She admits to intermittent hearing loss, loud noise exposure, and . She denies dizziness and family history of ear problems. Permanent tube [place] [address] Lopez. Shereports experience irritation after routine cleanings. Past History: [...] twice daily for 1 week then twice weeklythereafter.., Disp: 30 g, Rfl: 3 ondansetron ODT [...] 11/02/2017 Performed by Karthikeyan Lopez MD at [facility] APPENDECTOMY age 15 CRANIOTOMY CHIARI DECOMPRESSION / N/A 01/27/2023 Performed by Ajay Barbosa MD at [facility] CYSTOSCOPY RETROGRADE PYELOGRAM Bilateral 11/30/2022 Performed by Jocelyne Hernandez MD at [facility] DILATION AND CURETTAGE OF UTERUS 07/31/2023 EUSTACHIAN TUBE DILATION Bilateral 11/02/2017 Performed by Karthikeyan Lopez MD at [facility] POSTERIOR LAMINECTOMY CERVICAL SINGLE LEVEL / C1 N/A 01/27/2023 Performed by Ajay Barbosa MD at [facility] TONSILLECTOMY TYMPANOSTOMY TUBE PLACEMENT TYMPANOTOMY WITH PERMANENET VENT TUBE INSERTION. TYMPANOTOMY WITH NONPERMANENT TUBE IN LEFT EAR Bilateral 11/02/2017 Performed by Karthikeyan Lopez MD at [facility] SOCIAL HISTORY Social History Tobacco Use Smoking [...] Martin MA 03/18/24 1424 documented in this encounterPremier Health06-10-2024 Instructions* Patient Instructions* Linette Gurrola - 03/18/2024 2:30 PM EDT - Patient prefers to have right tube surgically removed. We discussed the chances of perforation remaining from PE tube, which may resolve with paper patch placement. Indications, risks, benefits, and possible complications were discussed. - Continue to initiate ear drops; Ciprodex sent to pharmacy. - Follow-up post op. documented in this encounterPremier Health05-29-2024 History of Present illness Narrative* Sadia Rai PA-C - 03/06/2024 4:15 PM EDT [facility] [address] [place] [address] [place] [id number] SUBJECTIVE: Patient ID (2000): Charis Allen is [...] She denies new onset tinnitus, changes in hearingor dizziness. HISTORY: Past Medical History: Diagnosis Date Cerebellar tonsillar ectopia (CMS-HCC) Concussion multiple Dizziness Head injury loc 2010 Headache History of chicken pox age 11 Visual impairment Blurred Past Surgical History: Procedure Laterality Date ADENOIDECTOMY Bilateral 11/02/2017 Performed by Karthikeyan Lopez MD at [facility] APPENDECTOMY age 15 CRANIOTOMY CHIARI DECOMPRESSION / N/A 01/27/2023 Performed by Ajay Barbosa MD at [facility] CYSTOSCOPY RETROGRADE PYELOGRAM Bilateral 11/30/2022 Performed by Jocelyne Hernandez MD at [facility] DILATION AND CURETTAGE OF UTERUS 07/31/2023 EUSTACHIAN TUBE DILATION Bilateral 11/02/2017 Performed by Karthikeyan Lopez MD at [facility] POSTERIOR LAMINECTOMY CERVICAL SINGLE LEVEL / C1 N/A 01/27/2023 Performed by Ajay Barbosa MD at [facility] TONSILLECTOMY TYMPANOSTOMY TUBE PLACEMENT TYMPANOTOMY WITH PERMANENET VENT TUBE INSERTION. 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 of Health Financial Resource Strain: Patient Declined (11/12/2023) [facility] Overall Financial Resource Strain (CARDIA) Difficulty of Paying Living Expenses: Patient declined Food Insecurity: Patient Declined (11/12/2023) Received from [facility] Hunger Vital Sign Worried About Running Out of Food in the Last Year: Patient declined Ran Out of Food in the Last Year: Patient declined Transportation Needs: Patient Declined (11/12/2023) Received from [facility] PRAPARE - Transportation Lack of Transportation (Medical): Patient declined Lack of Transportation (Non-Medical): Patient declined Physical Activity: Patient Declined (11/12/2023) Received from [facility] Exercise Vital Sign Days of Exercise per Week: Patient declined Minutes of Exercise per Session: Patient declined Stress: Not on file Social Connections: Unknown (11/12/2023) Received from [facility] Social Connection and Isolation Panel [NHANES] Frequency of Communication with Friends and Family: Patient declined Frequency of Social Gatherings with Friends and Family: Patient declined Attends Nondenominational Services: Not on file Active Member of Clubs or Organizations: Patient declined Attends Club or Organization Meetings: Patient declined Marital Status: Patient declined Interpersonal Safety: Patient Declined (11/12/2023) [facility], [facility] Humiliation, Afraid, Rape, and Kick questionnaire [...] by mouth every 6 (six) hours as neededfor muscle spasms. 30 tablet 0 tretinoin (RETIN-A) 0.1 % cream Apply 1 Application topically in the morning. No current facility-administered medications for this visit. REVIEW OF SYSTEMS: Review of Systems Constitutional: Negative for chills and fever. HENT: Negative for congestion, ear discharge, ear pain, postnasal drip, sinus pressure, sinus pain,sore throat and tinnitus. Eyes: Negative for redness. [...] Diagnosis: Same Procedure: Microscopic evaluation of Clinician: Sadia Rai PA-C Anesthesia: None Complications: none Procedure [...] was insufflated into the EAC avoiding the lumenof the tube. Procedure was successful and and [...] complete at the time of final signature. Sadia Rai PA-C Counseling: The following elements of [...] this chart were generated using voice recognition [employer] dictation software. Although every effort was made to ensure the accuracy of this automated revenue tax specialist, some errors in revenue tax specialist may have occurred. Sadia Rai PA-C 03/06/24 1727 documented in this encounterPremier Health04-29-2024 Miscellaneous Notes* Telephone Encounter - Jessica Best - 02/05/2024 8:24 AM EDT Called and left voice mail to let patient know she needs to reschedule her appointment for 02/05/24 as provider is out ill documented in this encounterPremier Health04-29-2024 Telephone encounter Note* Telephone Encounter - Jessica Best - 02/05/2024 8:24 AM EDT Called and left voice mail to let patient know she needs to reschedule her appointment for 02/05/24 as provider is out ill [facility]03-19-2024 Instructions* Patient Instructions* Olga Thompson MA - 12/26/2023 5:38 PM [...] to ensure normal healing. documented in this encounterLancaster [facility] Hospital03-19-2024 NoteHNO ID: [id number] Author: ARELT DELGADO DPM Service: ? Author Type: Physician [...] the overlying eponychium and underlying nailbed. An Maltese anvil was used to cut the offending [...] PATIENT VERIFIED(optional for EMERG (more content not included)...[facility]03-19-2024 History of Present illness Narrative* Arlet Delgado DPM - 12/26/2023 5:31 PM EDT Service Date: December 26, 2023 PCP: No [...] or assurance as to the results that maybe obtained. Conservative therapy has not rendered relief of symptoms patient desires surgical management at this time. 1. Phenol and alcohol matrixectomy bilateral hallux bilateral borders . After an appropriate informed consent discussion with the patient, the left and right hallux were anesthetized using 3 cc of 1%lidocaine with epinephrine 1:600,000. An elevator was used to liberate the offending nail border from the overlying eponychium and underlying nailbed. An Maltese anvil was used to cut the offending nail border down to the nail matrix and the offending nail border was removed with a hemostat. Phenolwas applied in the nail border to cauterize the matrix with 3 applications. The area was probed with a blunt instrument and noted to have no remaining nail spicules. The area was irrigated with copious amount of alcohol. A surgical bandage was applied and oral and written home- going instructions were given. 2. Post op appointment [...] Olga Thompson MA acting as scribe for Arlet Delgado DPM. December 26, 2023 5:33 PM I spent 60 minutes on the date of the service which included preparing to see the patient, [id number] patient care, completing clinical documentation, obtaining and/or reviewing separately obtainedhistory, performing a medically appropriate examination, counseling and educating the patient/family/caregiver, ordering medications, tests, or procedures and care coordination (not separately reported). I agree with the Chief Complaint, ROS, and Past Histories independently gathered by the clinical it support technician and the remaining scribed note accurately describes my personal service to the patient. This document has been created with the use of voice recognition technology. It may contain inaccuracies, misspellings, inaccurate syntax or inappropriate word context that escaped review. Arlet Delgado DPM documented in this encounterLancaster Municipal Hospital03-12-2024 History of Present illness Narrative* Sadia Rai PA-C - 12/19/2023 12:45 PM EDT [facility] [address] [place] [facility] [id number] SUBJECTIVE: Patient ID (2000): Charis Allen is [...] October of 2017, by Dr. Lopez in [place], [place]. The left tube has since extruded, [...] 11/02/2017 Performed by Karthikeyan Lopez MD at [facility] APPENDECTOMY age 15 CRANIOTOMY CHIARI DECOMPRESSION / N/A 01/27/2023 Performed by Ajay Barbosa MD at [facility] CYSTOSCOPY RETROGRADE PYELOGRAM Bilateral 11/30/2022 Performed by Jocelyne Hernandez MD at [facility] DILATION AND CURETTAGE OF UTERUS 07/31/2023 EUSTACHIAN TUBE DILATION Bilateral 11/02/2017 Performed by Karthikeyan Lopez MD at [facility] POSTERIOR LAMINECTOMY CERVICAL SINGLE LEVEL / C1 N/A 01/27/2023 Performed by Ajay Barbosa MD at [facility] TONSILLECTOMY TYMPANOSTOMY TUBE PLACEMENT TYMPANOTOMY WITH PERMANENET VENT TUBE INSERTION. 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 Social [...] by mouth every 6 (six) hours as neededfor muscle spasms. 30 tablet 0 tretinoin (RETIN-A) [...] Diagnosis: Same Procedure: Microscopic evaluation of Clinician: Sadia Rai PA-C Anesthesia: None Complications: none Procedure [...] 4-6 weeks for recheck. Provider Statement: I SADIA RAI PA-C personally performed the services described in the documentation as described by the above named scribe in my presence. It is both accurate and complete at the time of final signature. Sadia Rai PA-C Counseling: The following elements of [...] this chart were generated using voice recognition [employer] dictation software. Although every effort was made to ensure the accuracy of this automated revenue tax specialist, some errors in revenue tax specialist may have occurred. Sadia Rai PA-C 12/19/23 1335 documented in this encounterUniversity Hospitals Parma Medical CenterInnovationszentrum für Telekommunikationstechnik [id number] Instructions* Patient Instructions* Sadia Rai PA-C - 12/19/2023 12:45 PM EDT [...] with your ENT provider. documented in this encounterPremier Health02-13-2024 Instructions* Patient Instructions* Arlet Delgado DPM - 11/21/2023 2:47 PM EST [...] may be alternated with the antifungal. Additional applicationsshould be made following activities such as manual work, sports activities, swimming, or bathing which may remove the coating of the medication from the nails. Cover entire nail and nail bed with medication. Allow a small amount of the medication to get underneath the tip of the nail. Do not force under nail. Let the medication dry thoroughly. No protectivedressing or covering is required unless specified during office visit. Use antifungal powder or spray to disinfect your shoes. Use LYSOL spray after each use to disinfectyour bathing area. You can also use TINACTIN or DESENEX spray on feet and in shoes. CEDAR balls/sachet can be used in shoes. documented in this encounterLancaster Municipal Hospital02-13-2024 NoteHNO ID: [id number] Author: ARLET DELGADO DPM Service: ? Author Type: Physician Type: Progress Notes Filed: 11/21/2023 15:03 Note Text: Service Date: November 21, 2023 PCP: No primary care provider on file. Last Podiat[facility] Visit: [facility] The history is provided by the [...] order to perform a complete physical exam, [address] was performed. This incidental service is integral [...] Olga Thompson MA acting as scribe for Arlet Delgado DPM. November 21, 2023 2:40 PM I spent 22 minutes on the date of the service which included preparing to see the patient, [id number] patient care, completing clinical documentation, obtaining and/or reviewing separately obtained history, performing a medically appropriate examination, counseling and educating the patient/family/caregiver, ordering medications, tests, or procedures and care coordination (not separately reported). I agree with the Chief Complaint, ROS, and Past Histories independently gathered by the clinical it support technician and the remaining scribed note accurately describes my personal service to (more content not included)...[facility]02-13-2024 History of Present illness Narrative* Desideb Arlet Cruz, NEGAR - 11/21/2023 2:40 PM EST Service Date: November 21, 2023 PCP: No primary care provider on file. Last Podiatry Visit: None [facility] The history is provided by the [...] toenail(s) using a nail splitter without incident. Inorder to perform a complete physical exam, [address] was performed. This incidental service is integralto the evaluation and management visit in order [...] Olga Thompson MA acting as scribe for Arlet Delgado DPM. November 21, 2023 2:40 PM I spent 22 minutes on the date of the service which included preparing to see the patient, [id number] patient care, completing clinical documentation, obtaining and/or reviewing separately obtainedhistory, performing a medically appropriate examination, counseling and educating the patient/family/caregiver, ordering medications, tests, or procedures and care coordination (not separately reported). I agree with the Chief Complaint, ROS, and Past Histories independently gathered by the clinical it support technician and the remaining scribed note accurately describes my personal service to the patient. This document has been created with the use of voice recognition technology. It may contain inaccuracies, misspellings, inaccurate syntax or inappropriate word context that escaped review. Arlet Delgado DPM documented in this encounterLancaster Municipal Hospital01-31-2024 Evaluation note* Encounter Date Diagnosis Assessment Notes Treatment Notes Treatment Clinical Notes Oct, Dietary surveillance and day camp counselor ing (ICD-10 - Z71.3) Discussed in detail high-protein, high-fiber, low-fat nutrition plan favoring calorie deficit and lean tissue mass preservation. -Avoid fruit juice Oct,Overweight (BMI 25.0-29.9) (ICD-10 - E66.3)Consultation date 11-08-2023, weight (pounds): 177Plan is to take a weight centric approach to patient care in the treatment of excess adiposity and patient's weight related comorbidities.-Discussed treatment options including lifestyle interventions, such as calorie reduction and physical activity,and use of medications as an adjunct to amplify adherence to healthy behavior change-Discussed benefits, risks and side effects of medication. After informed discussion, patient would like to proceedOrders:-Initiate topiramate 50 mg in the evening. Patient will call regarding response in 2 to 3 weeks for potential to increase dose -Patient reports weight of 135 pounds in 2017 and 215 pounds in 2021 following use of Depo-Provera -History of migraines, exercise-induced -Experienced tachycardia with phentermine. -Patient lives in [place] and has difficulty reaching [place] -Cardiometabolic labs today, nonfasting -Patient is not sexually active-Follow up in clinic in 6 to 8 weeksThis note was created with voicerecognition software. Please excuse errors in revenue tax specialist. Oct,Exercise counseling (ICD-10 - Z71.89)Absolute HGS at time of consultation (pounds): 71.3Discussed in detail exercise interventions to promote lean tissue mass preservation during calorie restriction. -Patient reports migraines with exercise and therefore is limited Oct,Elevated alkaline phosphatase level (ICD-10 - R74.8)Repeat labs Oct,4Acne (ICD-10 - L70.9)With slight appearance of moya facies Patient reports 80 pound weight gain with Depo-Provera Can consider hypercortisolism workup in the future Oct,Other65 minutes was spent reviewing patient specific healthcare information, interviewing, counseling, and communicating with the patient, and documenting clinical information. [employer] Other 11-13-2023 Miscellaneous Notes* Telephone Encounter - Yesenia Hernández LPN - 08/21/2023 3:14 PM EST Patient contacted and concerns addressed. Patient voiced understanding of denial and reasons listed. She will call back if she has any other questions or concerns * Telephone Encounter - Lauren Larson - 08/16/2023 8:59 AM EST Charis Allen is calling Fortino Alcaraz MD today with concern regarding a cancelled procedure back in July 2023. Patient is looking to reschedule. Please call patient to advise. Patient has been identified by name and birthdate. Duration of symptoms: N/A Person calling: self Call patient at: at home [phone] (home) [phone] (cell) Was an appointment scheduled: No Closing statement: Results or non-symptom based questions: Thank you for calling [facility], your call will be returned within the next business day. Thank you, Lauren Larson documented in this encounterLancaster Municipal Hospital11-08-2023 NoteHNO ID: [id number] Author: Anish Levin MD Service: ? Author Type: Physician [...] visit. Either the patient or their legal union representative has been informed of the risks [...] treatment options and medications and coordinating care. Anish Levin [facility]11-08-2023 History of Present illness Narrative* Anish Levin MD - 08/16/2023 6:31 PM EST VIRTUAL VISIT PROGRESS NOTE This is a virtual visit using Audio Only Visit. It required patient-provider interaction for the medical decision making as documented below. I have communicated my name and active licensure. The patient's identity and physical location wereverified at the time of this visit. Either the patient or their legal union representative has been informed of the risks [...] exam performed due to technical problems with [employer] (on [facility] end). ASSESSMENT/PLAN: 1. Acne vulgaris - ICD9: 706.1, ICD10: L70.0 Begin the following medications: Sulfacetamide Sodium-Sulfur 10-5 % (w/w) lotn Apply to all acne-prone areas twice daily adapalene (DIFFERIN) 0.1 % gel Apply to all acne-prone areas at bedtime. During this patient visit I have spent approximately 15 minutes discussing treatment options and medications and coordinating care. Anish Levin MD documented in this encounterLancaster Municipal Hospital10-12-2023 Miscellaneous Notes* Telephone Encounter - Otilia [...] 4:32 PM EDT Charis Allen is calling Anish Levin MD today with concern regarding Medication Questions. Pt requesting to speak to clinical staff as her acne is not improving and she doesn't know if it is because of the combo of products she is using. Pt states she is currently using: -Neutrogena [place] Boost Water Gel -PanOxyl Acne Foaming Wash Benzoyl 10% -Bareminerals Exfoliating Toner -tretinoin 0.1% cream Pt states she had to stop using the sponge Dr Levin prescribed as it made her face too red and dry. Patient has been identified by name and birthdate. Duration of symptoms: N/A Person calling: self Call patient at: at home [phone] (home) [phone] (cell) Was an appointment scheduled: No Closing statement: Results or non-symptom based questions: Thank you for calling [facility], your call will be returned within the next business day. Sheila Monson documented in this encounterLancaster Municipal [facility] Miscellaneous Notes* Telephone Encounter - Reina Ferrari LPN - 06/30/2023 1:34 PM EDT Called and spoke to patient to notify her, she has refills of the dapsone. She stated the pharmacy told her the medication is not approved by her insurance. She will need a different medication that is covered by her new insurance. She now has [facility]/[employer] [place]. * Telephone Encounter - Dena Dowd - 06/26/2023 12:32 PM EDT Patient calling in with questions regarding this. Please advise. Patient's phone number is [phone]. documented in this encounterL[facility]09[facility] Evaluation note* Encounter Date Diagnosis Assessment [...] no improvement in 2 to 3 days Jun,cute otitis externa of right ear, unspecified type (ICD-10 - H60.501)Otitis externa home care material was printed Jun,Intractable episodic headache, unspecified headache type (ICD-10 - R51.9) [facility] Other 08-29-2023 Miscellaneous Notes* Telephone Encounter - Yesenia Hernández LPN - 06/06/2023 2:[address] Alcaraz, prior authorization to be sent to patient insurance. Surgical Request order placed, with PSEUDO date. Date of surgery to be determined upon insurance coverage decision. Please do not proceed with scheduling patient prior to contacting Dr. Alcaraz's office. Request for determination sent to PAVE/Pre access via e-mail at this time. documented in this encounterL[facility]08-24-2023 History of Present illness Narrative* Fortino Alcaraz MD - 06/01/2023 9:17 AM EDT [...] was evaluated at the breast center at [facility] in October for the breast [...] 2. Macromastia - ICD9: 611.1, ICD10: N62 Fortino Alcaraz MD a documented in this encounterLancaster [facility] Hospital07-03-2023 Instructions* Patient Instructions* Kerry Jain, RD - 04/10/2023 10:45 AM EDT Nutrition Intervention 04/04/2023: Aim for 1200 calories consistently daily (see diet plan/example) Keep diary - try using myfitnesspal Exercise at least 150 minutes/week documented in this encounterLancaster [facility]06-27-2023 History of Present illness Narrative* Kerry [...] 3:31 PM PAGER: N/A documented in this encounterLancaster [facility] Hospital04-01-2023 History general Narrative - Reported* Type Description Date Medical History acne Surgical Historytonsillectomy and adenoidectomySurgical Historyappendectomy Surgical HistoryPE tubesSurgical HistoryCEREBRAL TONSIL ECTOPIA01/2023 Hospitalization Historysee above [facility] Other 03-27-2023 Miscellaneous Notes* Telephone Encounter - [...] view and advise. * Telephone Encounter - Ross Virgen - 12/29/2022 10:40 AM EDT Charis Ledesma Amberlizzy is calling Anish Levin MD today to ask about what face lotions she can use with the pinoxy face wash and if there is a vitamin she can take for her acne. Patient has been identified by name and birthdate. Duration of symptoms: N/A Person calling: self Call patient at: on cell [phone] (home) [phone] (cell) Was an appointment scheduled: No Closing statement: Results or non-symptom based questions: Thank you for calling [facility], your call will be returned within the next business day. Ross Virgen documented in this encounterLancaster [facility] Hospital02-10-2023 Miscellaneous Notes* Telephone Encounter - Ludy Alberto RN - 11/18/2022 12:13 PM EST Patient calling with request for a second opinion neurology appt for cerebellar tonsillar ectopia. Patient denies any new or worsening symptoms of which a provider is not aware: Yes. She denies symptoms today. Conferenced her to appt center and called dropped. Reached patient and back and connectedher to [facility] closing was given GO TO THE EMERGENCY ROOM OR CALL 911 IF: * You develop any new symptoms * Your condition worsens * You are concerned or anxious about your condition for any other reason. If you have any questions, you can call Nurse honing machine try out setter back. documented in this encounterLancaster [facility] Hospital02-08-2023 Miscellaneous Notes* Telephone Encounter - Vandana [...] her MRI result. Number to return call [phone] Laura Amaro documented in this encounterLancaster Municipal Hospital02-08-2023 History of Present illness Narrative* Macie [...] with cine flow Chiari Malformation SIGNATURE: RT Shabbir(R)(MR) PATIENT NAME: Charis Allen DATE: November 16, 2022 TIME: 8:46 AM documented in this encounterLancaster Municipal Hospital02-06-2023 History of Present illness Narrative* Sreekanth [...] 6 Cerebellar tonsil ectopia. Been seen by [facility] for macromastia (whee she kmjmxx6zb neck pain) Wasn't able to tolerate topamax. [...] mins direct pt contact) documented in this encounterLancaster Municipal Hospital01-25-2023 Miscellaneous Notes* Telephone Encounter - Aminata Montgomery RN - 11/02/2022 11:28 PM EST Patient calling with request for physician referral: Patient referred to Urology for kidney stones Department. . Patient denies any new or worsening symptoms of which a provider is not aware: Yes. [facility]. documented in this encounterLancaster [facility] Hospital01-05-2023 NoteHNO ID: [id number] Author: Dianna Villa PA-C Service: ? Author Type: Physician Prosthetics Lab Technician Type: Progress Notes Filed: 10/13/2022 4:21 PM Note Text: MEDICAL BREAST PATIENT NAME: Charis Allen October 13, 2022 REFERRAL: She is self-referred for an opinion regarding bilateral breast enlargement/pain. 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 [...] Rash Seasonal Allergies RE (more content not included)...[id number] History of Present illness Narrative* Anish Levin MD - 09/12/2022 2:37 PM EST [...] Gagandeep Silva MA acting as scribe for Anish Levin MD. September 12, 2022 2:42 PM. I agree with the Chief Complaint, ROS, and Past Histories independently gathered by the clinical it support technician and the remaining scribed note accurately describes my personal service to the patient. Anish Levin MD Medical Decision Making: Problems: Moderate: 1+ chronic illnesses with change Data: Unique source(s) for external note(s) reviewed: 1 Risk: Moderate: Drug management Medical Decision Making Level: 4 - Moderate documented in this encounterLancaster [facility] Hospital11-18-2022 Miscellaneous Notes* Telephone Encounter - Christy Yuen LPN - 08/26/2022 10:34 AM EST Below message sent by Dr. Levni to patient. Sent a [employer] message to patient. Advised to stop doxycycline, [...] Is there something else she can take? [phone] (home) documented in this encounterLancaster Municipal Hospital11-09-2022 History of Present illness Narrative* Anish Levin MD - 08/17/2022 7:30 AM EST VIRTUAL VISIT PROGRESS NOTE This is a virtual visit using [employer] video visit. It required patient-provider interaction for [...] Sheyla Keenan RN acting as scribe for Anish Johnson MD. August 17, 2022 7:22 AM. I agree with the Chief Complaint, ROS, and Past Histories independently gathered by the clinical it support technician and the remaining scribed note accurately describes my personal service to the patient. Anish Levin MD Medical Decision Making: Problems: Low: Stable chronic illness Data: Unique source(s) for external note(s) reviewed: 1 Risk: Moderate: Drug management Medical Decision Making Level: 3 - Low documented in this encounterLancaster [facility] Hospital11-03-2022 Miscellaneous Notes* Telephone Encounter - Otilia Sanders - 08/11/2022 2:38 PM EDT Virtual appt scheduled * Telephone Encounter - Sheyla Keenan RN - 08/11/2022 2:20 PM EDT Please assist with virtual visit * Telephone Encounter - Otilia Gomez LPN - 08/10/2022 10:21 AM EDT Please advise and assist. documented in this encounterLancaster Municipal Hospital11-01-2022 Miscellaneous Notes* Telephone Encounter - Sheyla Keenan RN - 08/09/2022 3:07 PM EDT Brief message notifying pt that it is ok to stop medication Changes will be discussed at [facility] * Telephone Encounter - Marilyn Iyer - 08/09/2022 2:08 PM EDT Patient is calling back to see if Stop taking the medication until she is seen by . * Telephone Encounter - Sheyla Keenan RN - 08/09/2022 1:41 PM EDT Brief message notifying pt that Dr. Levin would like to discuss medication changes at [facility] * Telephone Encounter - Arielle Pyle [...] question to please call the patient at [phone] Thank you so much Arielle Pyle PSS documented in this encounterLancaster [facility] Hospital10-27-2022 History of Present illness Narrative* Lul Mcbride MD - 08/04/2022 1:21 PM EDT Otolaryngology - Head and Neck Surgery [facility] [employer], [facility] NOTE Chief Complaint: Patient presents with: New [...] needed This note was partially generated using [employer] voice recognition system. Please note that occasional revenue tax specialist errors may be made. Lul Mcbride MD documented in this encounterLancaster Municipal Hospital10-27-2022 Nurse Note* Brianna Barragan - 08/04/2022 1:03 PM EDT Tobacco Use: Never Was smoking cessation packet given? N/A - Patient is a non-smoker or quit >1 year ago. Was a referral initiated?N/A Patient is a non-smoker documented in this encounterLancaster [facility] Hospital10-25-2022 Miscellaneous Notes* Telephone Encounter - Laura [...] focusing and slow. Number to return call [phone]- Laura Amaro documented in this encounterLancaster [facility] Hospital2022 Miscellaneous Notes* Telephone Encounter - Laura Amaro - 07/26/2022 3:16 PM EDT NI PHONE Name of caller : Charis Relationship to patient : Self Was permission obtained from patient ? Yes Patient identified by Name and Date of . ( Charis Allen, 2000). Yes Reason for Call : Patient called today to speak with Dr. Samples nurse regards her Headache, she said the medication is not working with her. Number to return call [phone] Okay to leave a message ? Yes Laura Amaro documented in this encounterLancaster Municipal Hospital09-16-2022 Evaluation note* Encounter Date Diagnosis Assessment Notes Treatment Notes Treatment Clinical Notes Jun, Contact with and (kaur spected) exposure to covid-19 (ICD-10 - Z20.822) Jun,Viral URI (ICD-10 - J06.9)testing is negative today in clinic. low suspicion [...] with PCP if febrile or new/worsening s/s. [facility] Other 08-08-2022 Miscellaneous Notes* Telephone Encounter - Lauren Hamlin LPN - 05/16/2022 9:22 AM EDT Patient phones requesting refills as follows: Pending Prescriptions Disp Refills TRETINOIN 0.1 % TOPICAL CREAM 45 g 5 Sig: Apply to acne areas atbedtime LEWIS: No Last appointment: 08/30/2021 Next scheduled appointment: RX INSTRUCTIONS: Respond to pharmacy Lauren Hamlin LPN documented in this encounterLancaster [facility] Hospital06-27-2022 History of Present illness Narrative* Sreekanth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 Specified No pertinent family history Unknown motherFamily history of mental disorderUnknown Advance Directives TypeDate RecordedPatient RepresentativeExplanationAdvance Directive(s) Advance Directive Response Recorded Date/ Time Advance Directives No May 23, 2019 1:37pm Advance Directive Response Recorded Date/ Time Advance Directives No May 23, 2019 12:37pm Date ActivatedDate InactivatedComments01/27/2023 2:20 PM01/30/2023 2:01 PMDate ActivatedDate InactivatedComments12/13/2021 3:09 PM12/14/2021 5:43 PMCode StatusDate ActivatedDate InactivatedCommentsFull Code4/ 2:20 PM01/30/2023 2:01 PMCode StatusDate ActivatedDate InactivatedCommentsFull Code12/13/2021 3:09 PM12/14/2021 5:43 PMDate ActivatedDate InactivatedComments01/27/2023 2:20 PM01/30/2023 2:01 PM Date ActivatedDate InactivatedComments12/13/2021 3:09 PM12/14/2021 5:43 PMDate ActivatedDate InactivatedComments02/27/2025 12:25 AM02/27/2025 9:28 PMDate ActivatedDate InactivatedComments01/27/2023 2:20 PM01/30/2023 2:01 PMDate ActivatedDate InactivatedComments12/13/2021 3:09 PM12/14/2021 5:43 PM Reason for Referral SpecialtyDiagnoses / ProceduresReferred By ContactReferred To ContactRadiology Diagnoses Chronic throat pain Odynophagia Procedures CT neck soft tissue with contrast Sadia Rai, PA-C [address] [place] [address] Referral IDStatusReasonDetroit DateExpiration DateVisits RequestedVisits [id number]/25/20249/[id number] / Procedures Referred By ContactReferred To Contact Diagnoses Postop check Procedures Comprehensive hearing test Mich Verde MD [address] [place] [address] Referral IDStatusReasonStart DateExpiration DateVisits RequestedVisits [id number] [id number] / ProceduresReferred By ContactReferred To ContactMR IMAGING Diagnoses 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 Thunderclap headache Procedures MRV BRAIN WO/W IVCON MRA; HEAD W & WO CONTRAST Indigo, MD Sreekanth [address] [place] [address] [facility] [place] [address] Referral IDStatusReasonStart DateExpiration DateVisits RequestedVisits [id number] Auto-Generated Referral /[id number] / ProceduresReferred By ContactReferred To Contact IMAGING Diagnoses Thunderclap headache Procedures MRI BRAIN WO/W IVCON MRI BRAIN BRAIN STEM W/O W/CONTRAST MATERIAL Indigo, MD Sreekanth [address] [place] [address] [facility] [place] [address] Referral IDStatusReasonStart DateExpiration DateVisits RequestedVisits [id number] Auto-Generated Referral [id number] / ProceduresReferred By ContactReferred To ContactMR IMAGING Diagnoses Cerebellar tonsillar ectopia (HCC) Procedures MRI BRAIN WO/W IVCON MRI BRAIN BRAIN STEM W/O W/CONTRAST MATERIAL Samples, MD Sreekanth [address] [facility] [facility] [place] [address] [facility] [place] [address] Referral IDStatusReasonStart DateExpiration DateVisits RequestedVisits [id number] Auto-Generated Referral /[id number] / ProceduresReferred By ContactReferred To ContactPlastic Surgery Diagnoses Macromastia Procedures CONSULT TO PLASTIC SURGERY OFFICE/OUTPATIENT [facility] MDM 60-74 MINUTES Cathy Grayson, GERENTOLOGICAL PHYSIOTHERAPIST.MATERIALS HANDLING EQUIPMENT OPERATOR [address] [place] [address] Referral IDStatusReasonDetroit DateExpiration DateVisits RequestedVisits [id number] Review PCP Requested Referral /[id number] / ProceduresReferred By ContactReferred To ContactREHAB AND SPORTS THERAPY INS Diagnoses Exertional headache Cervicalgia Macromastia Procedures CONSULT TO PHYSICAL THERAPY PHYSICAL THERAPY EVALUATION HIGH COMPLEX 45 MINS Samples, MD Sreekanth [address] [place] [address] [facility] [address] [place] [address] Referral IDStatusVasiliyDetroit DateExpiration DateVisits RequestedVisits [id number] Review Auto-Generated Referral /[id number] / ProceduresReferred By ContactReferred To Contact Diagnoses Other eczema Anish Levin MD [address] [place] [address] [place] [address] Referral IDStatusReasonStdelta DateExpiration DateVisits RequestedVisits [id number] Chief Complaint and Reason for Visit Chief [...] and content) DATE CREATED AUTHOR 04/04/2018 [facility] DATE CREATED AUTHOR AUTHOR'S ORGANIZ ATION 10/14/2022 [facility] DATE CREATED AUTHOR AUTHOR'S ORGANIZ ATION 11/02/2022 [facility] Digital Computer Systems Analyst DATE CREATED AUTHOR AUTHOR'S ORGANIZ ATION 12/14/2022 [facility] DATE CREATED AUTHOR AUTHOR'S ORGANIZ ATION 01/04/2023 [facility] DATE CREATED AUTHOR AUTHOR'S ORGANIZ ATION 01/06/2023 [facility] DATE CREATED AUTHOR AUTHOR'S ORGANIZ ATION 07/27/2024 [facility] DATE CREATED AUTHOR AUTHOR'S ORGANIZ ATION 11/06/2024 [facility] DATE CREATED AUTHOR AUTHOR'S ORGANIZ ATION 02/23/2025 [facility] DATE CREATED AUTHOR AUTHOR'S ORGANIZ ATION 03/06/2025 [facility] DATE CREATED AUTHOR AUTHOR'S ORGANIZ ATION 03/09/2025 [facility] DATE CREATED AUTHOR AUTHOR'S ORGANIZ ATION 04/21/2025 [facility] DATE CREATED AUTHOR AUTHOR'S YAYA LINCOLN 07/20/2025 [facility] EPIC Source Comments (unrecognize d section and content) In the event this informatio n is protected by the Federal Confidentiality of Alcohol and Drug Abuse Patient Records regulations: The Federal rules restrict any use of the information to criminally investigate or prosecute any alcohol or drug abuse patient.[facility] the event this information is protected by the Federal Confidentiality of Alcohol and Drug Abuse Patient Records regulations: The Federal rules restrict any use of the information to criminally investigate or prosecute any alcohol or drug abuse patient.[facility] Hospital[facility] the event this information is protected by the Federal Confidentiality of Alcohol and Drug Abuse Patient Records regulations: The Federal rules restrict any use of the information to criminally investigate or prosecute any alcohol or drug abuse patient.[facility]In the event this information is protected by the Federal Confidentiality of Alcohol and Drug Abuse Patient Records regulations: The Federal rules restrict any use of the information to criminally investigate or prosecute any alcohol or drug abuse patient.[facility]In the event this information is protected by the Federal Confidentiality of Alcohol and Drug Abuse Patient Records regulations: The Federal rules restrict any use of the information to criminally investigate or prosecute any alcohol or drug abuse patient.[facility] the event this information is protected by the Federal Confidentiality of Alcohol and Drug Abuse Patient Records regulations: The Federal rules restrict any use of the information to criminally investigate or prosecute any alcohol or drug abuse patient.[facility] HospitalIn the event this information is protected by the Federal Confidentiality of Alcohol and Drug Abuse Patient Records regulations: The Federal rules restrict any use of the information to criminally investigate or prosecute any alcohol or drug abuse patient.[facility] HospitalIn the event this information is protected by the Federal Confidentiality of Alcohol and Drug Abuse Patient Records regulations: The Federal rules restrict any use of the information to criminally investigate or prosecute any alcohol or drug abuse patient.[facility] the event this information is protected by the Federal Confidentiality of Alcohol and Drug Abuse Patient Records regulations: The Federal rules restrict any use of the information to criminally investigate or prosecute any alcohol or drug abuse patient.[facility] HospitalIn the event this information is protected by the Federal Confidentiality of Alcohol and Drug Abuse Patient Records regulations: The Federal rules restrict any use of the information to criminally investigate or prosecute any alcohol or drug abuse patient.[facility] the event this information is protected by the Federal Confidentiality of Alcohol and Drug Abuse Patient Records regulations: The Federal rules restrict any use of the information to criminally investigate or prosecute any alcohol or drug abuse patient.[facility] HospitalIn the event this information is protected by the Federal Confidentiality of Alcohol and Drug Abuse Patient Records regulations: The Federal rules restrict any use of the information to criminally investigate or prosecute any alcohol or drug abuse patient.[facility] HospitalIn the event this information is protected by the Federal Confidentiality of Alcohol and Drug Abuse Patient Records regulations: The Federal rules restrict any use of the information to criminally investigate or prosecute any alcohol or drug abuse patient.[facility] HospitalIn the event this information is protected by the Federal Confidentiality of Alcohol and Drug Abuse Patient Records regulations: The Federal rules restrict any use of the information to criminally investigate or prosecute any alcohol or drug abuse patient.[facility] HospitalIn the event this information is protected by the Federal Confidentiality of Alcohol and Drug Abuse Patient Records regulations: The Federal rules restrict any use of the information to criminally investigate or prosecute any alcohol or drug abuse patient.[facility] HospitalIn the event this information is protected by the Federal Confidentiality of Alcohol and Drug Abuse Patient Records regulations: The Federal rules restrict any use of the information to criminally investigate or prosecute any alcohol or drug abuse patient.[facility] HospitalIn the event this information is protected by the Federal Confidentiality of Alcohol and Drug Abuse Patient Records regulations: The Federal rules restrict any use of the information to criminally investigate or prosecute any alcohol or drug abuse patient.[facility] HospitalIn the event this information is protected by the Federal Confidentiality of Alcohol and Drug Abuse Patient Records regulations: The Federal rules restrict any use of the information to criminally investigate or prosecute any alcohol or drug abuse patient.[facility] HospitalIn the event this information is protected by the Federal Confidentiality of Alcohol and Drug Abuse Patient Records regulations: The Federal rules restrict any use of the information to criminally investigate or prosecute any alcohol or drug abuse patient.[facility] HospitalIn the event this information is protected by the Federal Confidentiality of Alcohol and Drug Abuse Patient Records regulations: The Federal rules restrict any use of the information to criminally investigate or prosecute any alcohol or drug abuse patient.[facility] HospitalIn the event this information is protected by the Federal Confidentiality of Alcohol and Drug Abuse Patient Records regulations: The Federal rules restrict any use of the information to criminally investigate or prosecute any alcohol or drug abuse patient.[facility] HospitalIn the event this information is protected by the Federal Confidentiality of Alcohol and Drug Abuse Patient Records regulations: The Federal rules restrict any use of the information to criminally investigate or prosecute any alcohol or drug abuse patient.[facility] HospitalIn the event this information is protected by the Federal Confidentiality of Alcohol and Drug Abuse Patient Records regulations: The Federal rules restrict any use of the information to criminally investigate or prosecute any alcohol or drug abuse patient.[facility] HospitalIn the event this information is protected by the Federal Confidentiality of Alcohol and Drug Abuse Patient Records regulations: The Federal rules restrict any use of the information to criminally investigate or prosecute any alcohol or drug abuse patient.[facility] HospitalIn the event this information is protected by the Federal Confidentiality of Alcohol and Drug Abuse Patient Records regulations: The Federal rules restrict any use of the information to criminally investigate or prosecute any alcohol or drug abuse patient.[facility] HospitalIn the event this information is protected by the Federal Confidentiality of Alcohol and Drug Abuse Patient Records regulations: The Federal rules restrict any use of the information to criminally investigate or prosecute any alcohol or drug abuse patient.[facility] HospitalIn the event this information is protected by the Federal Confidentiality of Alcohol and Drug Abuse Patient Records regulations: The Federal rules restrict any use of the information to criminally investigate or prosecute any alcohol or drug abuse patient.[facility] HospitalIn the event this information is protected by the Federal Confidentiality of Alcohol and Drug Abuse Patient Records regulations: The Federal rules restrict any use of the information to criminally investigate or prosecute any alcohol or drug abuse patient.[facility] HospitalIn the event this information is protected by the Federal Confidentiality of Alcohol and Drug Abuse Patient Records regulations: The Federal rules restrict any use of the information to criminally investigate or prosecute any alcohol or drug abuse patient.[facility] HospitalIn the event this information is protected by the Federal Confidentiality of Alcohol and Drug Abuse Patient Records regulations: The Federal rules restrict any use of the information to criminally investigate or prosecute any alcohol or drug abuse patient.[facility] HospitalIn the event this information is protected by the Federal Confidentiality of Alcohol and Drug Abuse Patient Records regulations: The Federal rules restrict any use of the information to criminally investigate or prosecute any alcohol or drug abuse patient.[facility] HospitalIn the event this information is protected by the Federal Confidentiality of Alcohol and Drug Abuse Patient Records regulations: The Federal rules restrict any use of the information to criminally investigate or prosecute any alcohol or drug abuse patient.[facility] HospitalIn the event this information is protected by the Federal Confidentiality of Alcohol and Drug Abuse Patient Records regulations: The Federal rules restrict any use of the information to criminally investigate or prosecute any alcohol or drug abuse patient.[facility] HospitalIn the event this information is protected by the Federal Confidentiality of Alcohol and Drug Abuse Patient Records regulations: The Federal rules restrict any use of the information to criminally investigate or prosecute any alcohol or drug abuse patient.[facility] HospitalIn the event this information is protected by the Federal Confidentiality of Alcohol and Drug Abuse Patient Records regulations: The Federal rules restrict any use of the information to criminally investigate or prosecute any alcohol or drug abuse patient.[facility] HospitalIn the event this information is protected by the Federal Confidentiality of Alcohol and Drug Abuse Patient Records regulations: The Federal rules restrict any use of the information to criminally investigate or prosecute any alcohol or drug abuse patient.[facility] HospitalIn the event this information is protected by the Federal Confidentiality of Alcohol and Drug Abuse Patient Records regulations: The Federal rules restrict any use of the information to criminally investigate or prosecute any alcohol or drug abuse patient.[facility] HospitalIn the event this information is protected by the Federal Confidentiality of Alcohol and Drug Abuse Patient Records regulations: The Federal rules restrict any use of the information to criminally investigate or prosecute any alcohol or drug abuse patient.[facility] HospitalIn the event this information is protected by the Federal Confidentiality of Alcohol and Drug Abuse Patient Records regulations: The Federal rules restrict any use of the information to criminally investigate or prosecute any alcohol or drug abuse patient.[facility] HospitalIn the event this information is protected by the Federal Confidentiality of Alcohol and Drug Abuse Patient Records regulations: The Federal rules restrict any use of the information to criminally investigate or prosecute any alcohol or drug abuse patient.[facility] Reason for Visit (unrecogniz ed section and content) ReasonCommentsRadiology MRIReasonCommentsEstablished Patientat least Reason Onset DateCommentsRefill Rcnzfst34/08/2022ReasonCommentsRefill RequestReason CommentsHeadacheReasonOnset DateCommentsRefill Ebgwxis76/07/2022ReasonComments Appointment CancelledReasonCommentsPatient QuestionReasonCommentsPatient Request ReasonCommentsNew PatientEar drainage and fluid, second opnionReasonComments Medication ProblemReasonCommentsAcneReasonCommentsPatient UpdateReasonComments AcneReasonCommentsReferral InformationReasonCommentsEstablished PatientReason CommentsPt would like a neurology 2nd opinion appt.ReasonCommentsPatient EducationAssessmentReasonCommentsConsultBreast reduction consultSpecialty Diagnoses / ProceduresReferred By ContactReferred To ContactPlastic Surgery Diagnoses Mastodynia Macromastia Procedures CONSULT TO PLASTIC SURGERY OFFICE/OUTPATIENT [facility] 60-74 MINUTES Dianna Villa PA-C [address] [place] [address] Referral IDStatusReasonStart DateExpiration DateVisits RequestedVisits [id number] PCP Requested Referral /[id number] In ErrorReasonCommentsMedication Question ReasonCommentsNew PatientIngrown toe nails, x few years. Big toes on both feet. Pain scale 10. When she walks it gives a jabbing type of pain. Pt denies using anything for her pain.DofxfaKszybvijBhnv1tx feivvjlShsc6zo toenail; Pain is 10/10 with ambulation. Pain is relieved when not standing/walking on feet. ProcedureSpecialtyDiagnoses / ProceduresReferred By ContactReferred To Contact IMAGING Diagnoses Cerebellar tonsillar ectopia (HCC) Procedures MRI BRAIN WO/W IVCON MRI BRAIN BRAIN STEM W/O W/CONTRAST MATERIAL Samples, MD Sreekanth [address] [place] [address] [facility] [place] [address] Ref[facility]Status[facility] DateExpiration DateVisits RequestedVisits [id number] Auto-Generated Referral /[id number] / ProceduresReferred By ContactReferred To [facility] Diagnoses Thunderclap headache Procedures MRI BRAIN WO/W IVCON MRI BRAIN BRAIN STEM W/O W/CONTRAST MATERIAL Samples, MD Sreekanth [address] [place] [address] [facility] [place] [address] Referral IDStatus[facility] DateExpiration DateVisits RequestedVisits [id number] Auto-Generated Referral /[id number]-dyIk states she is here for a follow up on her medication. Pt states she has no concerns at this time.ReasonComments Nail CheckPt following up on bilateral hallux nails post matrixectomy in december. PT relates that she was sick and forgot about coming in for her post op appts. Pt relates that she was using antifungal however she discontinued because she was not sure if she still needed to use them.ReasonCommentsGynecologic Exam ReasonOnset DateCommentsMed Nuhbht924ReasonOnset DateCommentsMed Refill 4ReasonOnset DateCommentsMed Ihfomm224ReasonCommentsFollow-up Base of tongue massReasonCommentsADHDReasonCommentssick visitReasonCommentsChest PainAbdominal PainHeadachePatient c/o chest pain that started approximately 0000. States she now also has abdominal pain, n/v, and a headache.ReasonOnset DateCommentsMed Pwrosf9111/22/2024ReasonCommentsEaracheReasonCommentsEar Problem XhpdceBkxvsuqmUzyumq-ayPrigayAytxdkmvVnwy-ejMnny RemovalReasonCommentsSore ThroatReasonCommentsSore ThroatChronicReasonCommentsPost-opReasonCommentsVaginal BleedingPt states that she is 5 weeks and started spotting around 7 pm. Pt states that she is not spotting currently but is now having sharp abdominal and chest pain.PxzifdTslkcmbbFbohxx-yo3-4 week follow upReasonOnset DateComments Refill Wvchalr9201/07/2025ReasonCommentsDizzinessFelt light headed at work. Was told her BS was low and her bp was high. Hx of elevated bp.ReasonOnset Date CommentsMed Znckap2601/15/2025ReasonOnset DateCommentsMed Gxurqm7502/15/2025Reason CommentsMed RefillReasonCommentsMenstrual ProblemPatient present for menses issues. Patient also had complaints of urinary irritation. Clean Catch specimen taken. LMP: 06/02/25ReasonCommentsADHDReasonCommentsInitial VisitNurse Visit Care Teams (unrecognized sec tion and content) Team MemberRelationshipSpecialtyStart DateEnd Date Kerry Jain RD [address] [place], [place] [phone] 04/04/23Team MemberRelationshipSpecialtyStart DateEnd Date Kerry Jain RD [address] [place], [place] [phone] Nutrition04/04/23Team MemberRelationshipSpecialtyStart DateEnd Date Kerry Jain RD [address] [place] [address] Nutrition04/04/23Team MemberRelationshipSpecialtyStart DateEnd Date Kerry Jain RD [address] [place] [address] Nutrition04/04/23Team MemberRelationshipSpecialtyStart DateEnd Date Kerry Jain RD [address] [place] [address] Nutrition04/04/23Team MemberRelationshipSpecialtyStart DateEnd Date Kerry Jain RD [address] [place] [address] Nutrition04/04/23 Team Status: Active Member Role Status Dates Katie Thapa DO Primary Care Provider Active Team Status: Inactive Member Role Status Dates Katie Thapa DO Primary Care Provider Active Rosario Perez ProviderActiveTeam MemberRelationshipSpecialtyStart DateEnd Date Kerry Jain [address] [place] [address] Nutrition04/04/23 Team Status: Inactive Member Role Status Dates Katie Thapa DO Primary Care Provider Active Start: August 17, 2023 End: August 17Rosario Whitney ProviderActiveStart: August 17, 2023 End: August 17, 2023 Team Status: Active Member Role Status Dates Provider Conversion Attending Provider Active St art: September 23, 2023 Team Status: Inactive Member Role Status Dates Katie Thapa DO Primary Care Provider Active Start: November 08, 2023 End: November 08tom Barcenas DOAttending ProviderActiveStart: November 08, 2023 End: November 08, 2023 Team Status: Active Member Role Status Dates Katie Thapa DO Primary Care Provider Active Start: November 08, 2023 Gualberto Vann MDAttending ProviderActiveStart: November 08, 2023 Team MemberRelationshipSpecialtyStart DateEnd Date Kerry Jain RD [address] [place] [phone] Nutrition04/04/23Team MemberRelationshipSpecialtyStart DateEnd Date Kerry Jain RD [address] [place] [phone] Nutrition04/04/23 Team Status: Inactive Member Role Status Dates Katie Thapa DO Primary Care Provider Active Start: June 27, 2024 End: June 28Rodrigo Flynn Jr ProviderActiveStart: June 27, 2024 End: June 28, 2024Team MemberRelationshipSpecialtyStart DateEnd Date Pete Thapa DO [address] [place] [address] PCP - GeneralFamily Medicine02/14/23Team MemberRelationshipSpecialtyStart DateEnd Date Pete Thapa DO [address] [place] [address] PCP - GeneralFamily Medicine02/14/23Team MemberRelationshipSpecialtyStart DateEnd Date Pete Thapa DO [address] [place] [address] PCP - GeneralFamily Medicine02/14/23Team MemberRelationshipSpecialtyStart DateEnd Date Pete Thapa, DO [address] [place] [address] PCP - GeneralFamily Medicine02/14/23Team MemberRelationshipSpecialtyStart DateEnd Date Steffaniealic-Kerry Coates, IVET [address] [place] [address] Nutrition04/04/23Team MemberRelationshipSpecialtyStart DateEnd Date Peet Thapa, [address] [place] [address] PCP - GeneralFamily Medicine02/14/23Team MemberRelationshipSpecialtyStart DateEnd Date Pete Thapa DO [address] [place] [address] PCP - GeneralFamily Medicine02/14/23Team MemberRelationshipSpecialtyStart DateEnd Date Pete Thapa Jr., DO PCP - GeneralFamily Oheylyhm11/16/23Team MemberRelationshipSpecialtyStart Date End Date Pete Thapa DO [address] [place] [address] PCP - GeneralFamily Medicine02/14/23Team MemberRelationshipSpecialtyStart DateEnd Date Pete Thapa DO [address] [place] [address] PCP - GeneralFamily Medicine02/14/23Team MemberRelationshipSpecialtyStart DateEnd Date Pete Thapa DO [address] [place] [address] PCP - GeneralFamily Ldxhmdwm61/24/23Team MemberRelationshipSpecialtyStart Date End Date Pete Thapa Jr., DO [address] [place] [address] PCP - GeneralFamily Hzwtncuz04/1623Team MemberRelationshipSpecialtyStart Date End Date Pete Thapa, DO [address] [place] [address] PCP - GeneralFamily Medicine02/14/23Team MemberRelationshipSpecialtyStart DateEnd Date Pete Thapa Jr., DO [address] [place] [address] PCP - GeneralFamily Axffskaw31/16/23Team MemberRelationshipSpecialtyStart Date End Date Pete Thapa Jr., DO [address] [place] [address] PCP - GeneralFamily Vlrwmwqy95/16/23Team MemberRelationshipSpecialtyStart Date End Date Pete Thapa Jr., DO [address] [place] [address] PCP - GeneralFamily Yeicepyz17/1623Team MemberRelationshipSpecialtyStart Date End Date Pete Thapa Jr., DO [address] [place] [address] PCP - GeneralFamily Ekttdeac05/1623Team MemberRelationshipSpecialtyStart Date End Date Pete Thapa Jr., DO PCP - GeneralFamily Pxzbbdns50/16/23Team MemberRelationshipSpecialtyStart Date End Date Pete Thapa Jr., DO PCP - GeneralFamily Gjohgiiz56/16/23Team MemberRelationshipSpecialtyStart Date End Date GeethaPete varghese Jr., DO PCP - GeneralFamily Pzdtnpfp08/16/23Team MemberRelationshipSpecialtyStart Date End Date Pete Thapa Jr., DO PCP - GeneralFamily Flxactpm14/16/23Team MemberRelationshipSpecialtyStart Date End Date Pete Thapa Jr., DO PCP - GeneralFamily Dedzolrx48/16/23Team MemberRelationshipSpecialtyStart Date End Date Pete Thapa Jr., DO PCP - GeneralFamily Hmdyjcph89/16/23Team MemberRelationshipSpecialtyStart Date End Date Pete Thapa Jr., DO PCP - GeneralFamily Cvimxzff87/16/23Team MemberRelationshipSpecialtyStart Date End Date Pete Thapa, DO [address] [address] PCP - GeneralFamily Gdipuyru53/24/23Team MemberRelationshipSpecialtyStart Date End Date [address] [address] 04/04/23Team MemberRelationshipSpecialtyStart DateEnd Date [address] [address] 04/04/23Team MemberRelationshipSpecialtyStart DateEnd Date Pete Thapa DO [address] [place] [address] PCP - [facility] Xflndutv95/24/23Team MemberRelationshipSpecialtyStart Date End Date Pete Thapa DO [address] [place] [address] PCP - [facility] Medicine02/14/23 Team Status: Inactive Member Role Status Dates Katie Thapa DO Primary Care Provider Active Start: February 18, 2025 End: February 18Pablo Celis ProviderActiveStart: February 18, 2025 End: February 18, 2025Team MemberRelationshipSpecialtyStart DateEnd Date Pete Thapa DO [address] [place] [address] PCP - [facility] Ziwvqcff87/24/23Team MemberRelationshipSpecialtyStart Date End Date Pete Thapa Jr., DO [address] [place] [address] [facility] - [facility]02/26/25Team MemberRelationshipSpecialtyStart DateEnd Date Pete Thapa DO [address] [place] [address] PCP - [facility] Medicine02/14/23 Team Status: Inactive Member Role Status Dates Katie Thapa DO Primary Care Provider Active Start: April 17, 2025 End: April 17, 2025Daakosua White MDAttsanju ProviderActiveStart: April 17, 2025 End: April 17, 2025Team MemberRelationshipSpecialtyStart DateEnd Date Pete Thapa, DO [address] [place] [address] PCP - GeneralFamily Medicine02/14/23am MemberRelationshipSpecialtyStart DateEnd Date Pete Thapa, DO [address] [place] [address] PCP - Generalmily Medicine02/14/23am MemberRelationshipSpecialtyStart DateEnd Date Pete Thapa, DO [address] [place] [address] [facility] - [facility]02/14/23Team MemberRelationshipSpecialtyStart DateEnd Date Pete Thapa, DO [address] [place] [address] PCP - Generalmily Medicine02/14/23am MemberRelationshipSpecialtyStart DateEnd Date Pete Thapa Jr., DO [address] [place] [address] PCP - GeneralFamily Medicine02/26/25Team MemberRelationshipSpecialtyStart DateEnd Date Pete Thapa, DO [address] [place] [address] PCP - GeneralFamily Medicine02/14/23Team MemberRelationshipSpecialtyStart DateEnd Date Pete Thapa, DO [address] [place] [address] PCP - [facility] Medicine02/14/23[facility]Relations[facility] DateEnd Date Pete Thapa, DO [address] [place] [address] PCP - [facility]02/14/23Te [facility]Relations[facility] DateEnd Date Pete Thapa, DO [address] [place] [address] PCP - [facility]02/14/23Te [facility]RelationsV[facility] DateEnd Date Pete Thapa, DO [address] [place] [address] PCP - [facility]02/14/23 Goals (unrecognized section and content) Goals may be documented in a n alternate section Ordered Prescriptions (unrec ognized section and content) PrescriptionSigDispensedRefillsStart DateEnd Date ondansetron (ZOFRAN-ODT) 4 MG disintegrating tablet Take 1 tablet by mouth 3 times daily as needed for Nausea or Vomiting 21 tablet 11/16/2024PrescriptionSigDispense QuantityRefillsLast FilledStart DateEnd meclizine (ANTIVERT) 25 MG tablet Take 1 tablet by mouth 3 times daily as needed for Dizziness 30 tablet Scheduled Active and Recently Administ ered Medications (unrecognized section and content) Medication Order droPERidol (INAPSINE) injection 1.25 mg (COMPLETED) 1.25 mg, IntraVENous, ONCE, 1 dose, On 11/16/24 at 0215 * 0205 (Given - Provider: Aggie Gonzalez RN) ketorolac (TORADOL) injection 15 mg (COMPLETED) 15 mg, IntraVENous, ONCE, 1 dose, On 11/16/24 at 0115, Do not administer for more than 5 days. * 0111 (Given - Provider: Aggie Gonzalez RN) ondansetron (ZOFRAN) injection 4 mg (COMPLETED) 4 mg, IntraVENous, ONCE, 1 dose, On 11/16/24 at 0115 * 0111 (Given - Provider: Aggie Gonzalez RN) sodium chloride 0.9 % bolus 1,000 mL (COMPLETED) 1,000 mL (14.7 mL/kg), IntraVENous, at 495.9 mL/hr, Administer over 121 Minutes, ONCE, On 11/16/24 at 0115, For 1 dose * 0113 (New Bag - Provider: Aggie Gonzalez RN) * 0249 (Stopped - Provider: Aggie Gonzalez RN) Medication [id number] iopamidol (ISOVUE-370) 76 % injection 75 mL (COMPLETED) 75 mL, IntraVENous, IMG ONCE PRN, 1 dose, Starting on 11/16/24 at 0134, Until 11/16/24 at 0153,Other * 0153 (Given - Provider: Francheska Grimm) Medication [id number]/2025 meclizine (ANTIVERT) tablet 25 mg (COMPLETED) 25 mg, Oral, ONCE, 1 dose, On 01/11/25 at 1845 * 1846 (Given - Provider: George Chand RN) meclizine (ANTIVERT) tablet 25 mg (COMPLETED) 25 mg, Oral, ONCE, 1 dose, On 01/11/25 at 1930, Send home with pt * 1936 (Given - Provider: George Chand RN - Comment: sent home) [...] BE BASED ON THE PRIMARY CLINICAL RECORDS. [facility]. provides no warranty or guarantee of the accuracy or completeness of information in this document.
== END 2025-07-31 09:43 | disposition home or self-care (01) ==
LOC: LAB 09:43
PROVIDERS: PCP Family Medicine; Visit Provider Specialist
DX: O20.0 Threatened abortion (principal)
CPT/HCPCS: 36415; 84702

== ENCOUNTER 2025-09-02 05:28 | Emergency (ER) | payer MEDICAID, SELFPAY ==
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
--- OUTSIDE RECORDS SUMMARY | 2025-08-22 10:00 | XMS_ITS | Encounter Summary ---
Author Organization [facility] Address [address] [place] [address] Care Team Providers Care Leadership Program Associate Name Role Phone Pete Thapa DO Primary Care Provider [phone] Encounter Details DateTypeDepartmentCare Team (Latest Contact Info)Lmcaundqhzb08/14/2025 10:00 AM ESTAncillary Procedure [facility] [address] [place] [id number] History of miscarriage, currently , first trimester ([facility]) Social History Tobacco UseTypesPacks/DayYears UsedDateSmoking Tobacco: NeverSmokeless Tobacco: NeverAlcohol UseStandard Drinks/WeekCommentsNot Currently0 (1 standard drink = 0.6 oz pure alcohol)caffeine: vfmlkaealdywZ4139 Health LiteracyAnswerDate RecordedHow often do you need to have someone help you when you read instructions, pamphlets, or other written material from your doctor or pharmacy? Patient declines to izmwgla4906/11/2025Humiliation, Afraid, Rape, and Kick questionnaireAnswerDate RecordedWithin the [...] times a week06/11/2025How often do you attend hindu or religion services?1 to 4 times per year06/11/2025Do you belong to any clubs or organizations such as hindu groups, unions, fraNet Orange or athletic groups, or school groups?No06/11/2025How often do you attend meetings of the clubs or organizations you belong to?Never06/11/2025re you , , , , never , or living with a partner?Patient ahhncnjt11/03/2025 AUDIT-CAnswerDate RecordedQ1: How often do you have a drink containing alcohol? Monthly or less06/11/2025Q2: How many drinks containing alcohol do you have on a typical day when you are drinking?Patient does not drink06/11/2025Q3: How often do you have six or more drinks on one occasion?Less than mdjkoen8806/11/2025 Overall Financial Resource Strain (CARDIA)AnswerDate RecordedHow hard is it for you to pay for the very basics like food, housing, medical care, and heating? Somewhat hard06/11/2025PHQ-2AnswerDate RecordedPatient Health Questionnaire-2 Ftowo243[facility] [place] of Occupational Health - Occupational Stress QuestionnaireAnswerDate RecordedDo you feel stress - tense, restless, nervous, or anxious, or unable to sleep at night because yourmind is troubled all the time - these days?Only a ijfbyp2806/11/2025Exercise Vital SignAnswerDate Recorded On average, how many [...] needed for daily living?No06/11/2025Edinburgh Depression ScaleAnswerDate Recorded [place]ahawk Depression Scale Plylg41810/10/2022The thought of harming myself has occurred to me.Never08/10/2023Housing Stability Vital SignAnswerDate RecordedIn the last 12 months, was there a time when you were not able to pay the mortgage or rent on time?No06/11/2025Number of Times Moved in the Last Year Not on file06/11/2025t any time in the past 12 months, were you homeless or living in a long term (including now)?No06/11/2025Estimated Date of LgdlwcavFhztccutXyh94/30/2026ased on last menstrual period of 05/31/2025Sex and Gender InformationValueDate RecordedSex Assigned at BirthNot on fileLegal Sex Xnvdip5512/21/2022 7:12 PM EDTGender EnjskwxiZaqguo36/15/2023 7:12 PM EDTSexual OrientationNot on fileOccupationIndustryJob Start DateJob End DateCountry side Not on fileNot on fileNot on filedocumented as of this encounter Plan of Treatment DateTypeDepartmentCare Team (Latest Contact Info)Duiizxmxpll01/08/2025 12:30 PM ESTRoutine [facility] [address] [place] [address] Jona Henley MD [address] [facility] [[email or web address] [address] [place] [address] documented as of this encounter Goals GoalPatient Goal TypeAssociated ProblemsRecent ProgressPatient-Stated?Author Reminders Care PlanOB RemindersNoClark, Laure, RNdocumented as of this encounter Procedures Procedure NamePriorityDate/TimeAssociated DiagnosisCommentsUS OB LIMITED 1+ AMFYSFYUdgkvdv74/14/2025 10:21 AM EST History of miscarriage, currently , first trimester ([facility]) documented in this encounter Results * US OB limited 1+ fetuses (08/22/2025 10:21 AM EST)Anatomical RegionLaterality ModalityBodyUltrasoundStudy GAStudy DateStudy EDDWorking CHERYL (Source) / (Last Menstrual Period)Fetus A MeasurementsValueGA (days) CRLSac DiameterBiparietal DiameterHead CircumferenceAbdominal Circumference Femur LengthFetal Ulna LengthFetal Humerus LengthFetal Tibia LengthAmniotic Fluid Index Quadrant 1Amniotic Fluid Index Quadrant 2Amniotic Fluid Index Quadrant 3Amniotic Fluid Index Quadrant 4Amniotic Fluid IndexDeep Vertical PocketUA SD RatioUA Resistance IndexUA Pulsatility IndexMCA SD RatioMCA Resistance IndexMCA Pulsatility IndexHeart RateSpecimen (Source)Anatomical Location / LateralityCollection Method / VolumeCollection TimeReceived Time Narrative 08/23/2025 11:19 PM EST Images from the original result were not included. ?? Obstetrics & Gynecology ? [address] ? [address] ? [address] ?[address], [facility] ? [place] [address] ?[place] [address] ? - - - - - - [...] - - - - - - - ?Early Assessment Patient name: Charis Rabagonannette : 2000 (24 y.o.) Date of exam: 08/22/25 - - - - - - - - - - - - - - - - - - - - - - - - - - - - - - - Indication: history of MAB Surgical History: none Method: Transabdominal ultrasound examination View: Sufficient - - - - - - - - - - - - - - - - - - - - - - - - - - - - - - - : Type of gestation: Villarreal ??Number of embryos: 1 - - - - - - - - - - - - - - - - - - - - - - - - - - - - - - - Assigned Dating based on LMP: Estimated Date of Delivery: 03/07/26 GA by CHERYL: 11w6d - - - - - - - - - - - - - - - - - - - - - - - - - - - - - - - Fetus: Gestational sac: visualized Location: Intrauterine Amniotic sac: visualized Embryo: visualized GA by CRL: 12w0d CHERYL by CRL: 03/06/26 Cardiac activity: present FHR: 154 bpm - - - - - - - [...] - - - - - - Impression: There is a single intrauterine . There is adequate interval growth since the previous ultrasound. Cardiac and motion are visible. *Please note that a normal ultrasound does not rule out anomalies* - - - - - - - [...] - - Ordering/Reading Provider: Jona Henley M.D. ??Group Therapy Counselor: Maico Ross RDMS Authorizing ProviderResult TypeResult StatusJona Henley [facility] US PROCEDURESFinal Result documented in this encounter Visit Diagnoses Diagnosis History of miscarriage, currently , first trimester ([facility]) documented in this encounter Additional Health Concerns Active ProblemsNoted DateDiagnosed DateOB Nxsbhtkyc95/10/2025 documented as of this encounter Care Teams Team MemberRelationshipSpecialtyStart DateEnd Date Pete Thapa DO [address] [facility] [[email or web address]] [address] [place] [address] PCP - GeneralFamily Medicine02/14/23documented as of this encounter
--- OUTSIDE RECORDS SUMMARY | 2025-08-26 11:43 | XMS_ITS | Encounter Summary ---
Author Organization [facility] HospitalComposite Software [facility] tem Address [id number] [address] [place] [address] Care Team Providers Care Yardage Control Operator Name Role Phone Alanis Sky DO, George R Primary Care Provider + Reason for Visit * ReasonCommentsHeadache Encounter Details DateTypeDepartmentCare Team (Latest Contact Info)Tocwmudmauo51/18/2025 11:43 AM EST - 08/26/2025 3:06 PM [facility] [address] [place] [phone] Shelton Persaud MD [address] [place] [address] Other migraine without status migrainosus, not intractable (Primary Dx); History of Chiari malformation Discharge Disposition: Home Social History Tobacco UseTypesPacks/DayYears UsedDateSmoking Tobacco: NeverSmokeless Tobacco: NeverAlcohol UseStandard Drinks/WeekCommentsYes0 (1 standard drink = 0.6 oz pure alcohol)q 1x per monthTR[facility] UtilitiesAnswerDate RecordedIn the past 12 months has the electric, gas, oil, or water [employer] threatened to shut off services in your home?No02/27/2025PHQ-2AnswerDate RecordedTotal Ifnld3453PRAPARE - TransportationAnswerDate RecordedIn the past 12 months, [...] a part of a household?No5ChildcareAnswerDate RecordedChildcareUnknown 03/14/2019EmploymentAnswerDate DkiadmrsSuwnqtsxfeEtdczfh42/06/2019Hunger ScreeningAnswerDate RecordedWithin the past 12 months we worried whether our food would run out before we got money to buy more.Never True02/27/2025Within the past 12 months the food we bought just didn't last and we didn't have money to get more.Never True02/27/2025Purpose - LifeAnswerDate RecordedPurpose and direction in jpgiTnvivvs35/11/2021CommentsNoSex and Gender Information ValueDate RecordedSex Assigned at JyjnlJecekz99/07/2022 3:03 PM ESTLegal Sex Iipirh9003/03/2017 7:57 AM EDTGender HfayciccStzmmo73/07/2022 3:03 PM ESTSexual OrientationNot on filedocumented as of this encounter Last Filed Vital Signs Vital SignReadingTime TakenCommentsBlood Gpjmtaly709/6211 3:06 PM EST Htxep4871 3:06 PM XZLHsbfbkvxbnu43.1 ??C (97 ??F)08/26/2025 11:18 AM EST Respiratory Sibj952610/26/2024 3:06 PM ESTOxygen Rsdrpcqbqk074%08/26/2025 3:06 PM ESTInhaled Oxygen Concentration--Zviayf57.1 kg (170 lb)08/26/2025 11:18 AM EST Qrdwal287.6 cm (5' 6 )08/26/2025 11:18 AM ESTBody Mass Index27.44110/26/2024 11:18 AM ESTdocumented in this encounter Discharge Instructions * Discharge Instructions* Cornell Gibson APRN-[facility] [employer] - 08/26/2025 2:07 PM EST Continue tylenol with relgan and benadryl for headaches when severe. Follow up with neurology Return for concerns. documented in this encounter Medications at Time of Discharge MedicationSigDispense QuantityRefillsLast FilledStart DateEnd Date diphenhydrAMINE (BENADRYL) 25 mg capsule Take 1 capsule (25 mg total) by mouth every 6 (six) hours as needed (migraine, with reglan). 20 capsule 08/26/2025 methylphenidate HCl (CONCERTA) 18 mg CR tablet Indications:attention-deficit hyperactivity disorderTake 1 tablet (18 mg total) by mouth every morning Indications: attention deficit disorder with hype ractivity. metoclopramide (REGLAN) 10 mg tablet Take 1 tablet (10 mg total) by mouth 4 (four) times a day as needed (nausea, migraine). 20 tablet 08/26/2025documented as of this encounter ED Notes * Kelly Beck RN - 08/26/2025 11:17 AM EST Patient reports headache that started this morning. documented in this encounter Plan of Treatment DateTypeDepartmentCare Team (Latest Contact Info)Qksqiocjalk20/22/2025 4:00 PM ESTTelemedicine [facility], [facility] Department of [facility] [address] [facility] [address] [place] [address] Bari Caro MD [address] [facility] [address] [place] [address] 11/06/2025 3:15 PM ESTOffice Visit [facility] [address] [facility] [address] [place] [address] Sadia Rai, PA-C [address] [address] documented as of this encounter Goals GoalPatient Goal TypeAssociated ProblemsRecent ProgressPatient-Stated?Author Home Cherrie Weathers LSW Note: Evaluation of progress towards goal: Safe dc transition from hospital to home. documented as of this encounter Procedures Procedure NamePriorityDate/TimeAssociated DiagnosisCommentsCT BRAIN WO CONTSTAT 08/26/2025 1:36 PM EST EXTRA TUBES SST VSDJxsacuq54/18/2025 12:09 PM EST EXTRA TUBES BLUE WHXLoxpuwl87/18/2025 12:09 PM EST EXTRA BFIUXYhcvmms16/18/2025 12:09 PM EST CBC WITH AUTO EFRUHMHSJAPTKEGB58/18/2025 12:09 PM EST COMPREHENSIVE METABOLIC YLNMECNIL47/18/2025 12:08 PM EST documented in this encounter Results * CT brain without contrast (08/26/2025 1:36 PM EST)Anatomical RegionLaterality ModalityNeuro, Head, Head and Neck, Neuro CoveraN/AComputed TomographySpecimen (Source)Anatomical Location / LateralityCollection Method / VolumeCollection TimeReceived Time08/26/2025 1:36 PM EST Narrative 08/26/2025 1:46 PM EST Clinical information: Headaches in gravid female. Comparison: None available. Technique: Routine unenhanced brain CT. All CT scans at this facility use dose modulation, iterative reconstruction, and/or weight based dosing when appropriate to reduce radiation dose to as low as reasonably achievable. ?? Findings: No acute intracranial hemorrhage, extracerebral fluid collection, midline shift or mass effect. No fracture of the calvarium, skull base and visualized maxillofacial bones. Normal appearance of the brain parenchyma. Ventricles are normal. Cerebral volume is age appropriate. Visualized orbits are unremarkable. Mild paranasal sinus mucosal thickening. Impression: 1. No acute intracranial abnormality. Finalized by Ruby Villegas MD on 08/26/2025 1:46 PM Procedure Note Ruby Villegas MD - 08/26/2025 Clinical information: Headaches in gravid female. Comparison: None available. Technique: Routine unenhanced brain CT. All CT scans at this facility use dose modulation, iterativereconstruction, and/or weight based dosing when appropriate to reduceradiation dose to as low as reasonably achievable. Findings: No acute intracranial hemorrhage, extracerebral fluid collection, midlineshift or mass effect. No fracture of the calvarium, skull base and visualized maxillofacialbones. Normal appearance of the brain parenchyma. Ventricles are normal. Cerebral volume is age appropriate. Visualized orbits are unremarkable. Mild paranasal sinus mucosal thickening. Impression: 1. No acute intracranial abnormality. Finalized by Ruby Villegas MD on 08/26/2025 1:46 PM Authorizing ProviderResult TypeResult StatusMathemusa Diane Gibson DIRECTOR OF RESOURCE DEVELOPMENT-[facility] CT ORDERABLESFinal Result * SST TOP (08/26/2025 12:09 PM EST)ComponentValueRef RangeTest MethodAnalysis TimePerformed AtPathologist SignatureExtra TubeAuto Qcqfpolp26/18/2025 2:03 PM ESTCenterville (Source)Anatomical Location / LateralityCollection Method / VolumeCollection TimeReceived TimeBloodVenous blood / Ghyofff6508/26/2025 12:09 PM EST08/26/2025 12:27 PM EST Narrative Authorizing ProviderResult TypeResult StatusShelton Persaud MDGEARY [facility] BLOOD ORDERABLESFinal ResultPerforming OrganizationAddressCity/State/ZIP CodePhone Number [facility] [address] [place] [address], * Light Blue Top (08/26/2025 12:09 PM EST)ComponentValueRef RangeTest Method Analysis TimePerformed AtPathologist SignatureExtra TubeAuto Resulted 08/26/2025 2:03 PM ESTCenterville (Source) Anatomical Location / LateralityCollection Method / VolumeCollection Time Received TimeBloodVenous blood / Dhffjzb4608/26/2025 12:09 PM EST08/26/2025 12:27 PM EST Narrative Authorizing ProviderResult TypeResult StatusPatriccortez Persaud MDLAB BLOOD ORDERABLESFinal ResultPerforming OrganizationAddressCity/State/ZIP CodePhone Number [facility] [address] [facility] [place] [address], * (ABNORMAL) CBC auto differential (08/26/2025 12:09 PM EST)ComponentValueRef RangeTest MethodAnalysis TimePerformed AtPathologist SignatureWBC7.54 - 11 X10^9/L110/26/2024 12:37 PM ESTPROTEMECULA VALLEY HOSPITALRBC Count4.29 3.8 - 5.2 X10^12L110/26/2024 12:37 PM [facility] Kspcutuopm54.311.7 - 15.5 g/dL08/26/2025 12:37 PM [facility] CENTERHematocrit38.835 - 47 %08/26/2025 12:37 PM ESTPROTEMECULA VALLEY HOSPITALMCV9180 - 100 fL08/26/2025 12:37 PM [facility] CENTERMCH31.027 - 34 pg08/26/2025 12:37 PM [facility]ENTERMCHC34.232 - 36 g/dL08/26/2025 12:37 PM [facility] CENTERRDW13.111.5 - 15 %08/26/2025 12:37 PM [facility] MED[facility] CENTERPlatelet Veict373844 - 450 X10^9L110/26/2024 12:37 PM ESTEAST OHIO REG[facility]AL HOSPITALMPV8.47 - 12 fL08/26/2025 12:37 PM EST [facility]ITALNeutrophils %85.2%08/26/2025 12:37 PM EST [facility]ITALLymphocytes %9.0%08/26/2025 12:37 PM EST [facility]ITALMonocytes %4.9%08/26/2025 12:37 PM EST [facility]ITALEosinophils %0.5%08/26/2025 12:37 PM EST [facility]ITALBasophils %0.4%08/26/2025 12:37 PM EST [facility]ITALNeutrophils Absolute (A)6.41.5 - 6.6 X10^9/L110/26/2024 12:37 PM ESTEAST [facility]IO [facility] HOSPITALLymphocytes Absolute0.7(L)1.0 - 3.5 X10^9/L110/26/2024 12:37 PM ESTPROTEMECULA VALLEY HOSPITALMonocytes Absolute0.40.0 - 0.9 X10^9/L110/26/2024 12:37 PM EST [facility]ALEosinophils Absolute0.00.0 - 0.4 X10^9/L 08/26/2025 12:37 PM ESTEAST [facility]OSPITALBasophils Absolute 0.00.0 - 0.2 X10^9/L110/26/2024 12:37 PM [facility] Differential TypeAUTOMATED VLHETVBAISKA13/18/2025 12:37 PM [facility]OL[facility]Opecimen (Source)Anatomical Location / Laterality Collection Method / VolumeCollection TimeReceived TimeBloodVenous blood / UnknownVenipuncture / Zsxzwpg2008/26/2025 12:09 PM EST08/26/2025 12:26 PM EST Narrative Authorizing ProviderResult TypeResult StatusMathew Diane Gibson DIRECTOR OF RESOURCE DEVELOPMENT-CNPLAB BLOOD ORDERABLESFinal ResultPerforming OrganizationAddressCity/State/ZIP CodePhone Number [facility] [address] [place] [address], * (ABNORMAL) Comprehensive metabolic panel (08/26/2025 12:08 PM EST)Component ValueRef RangeTest MethodAnalysis TimePerformed AtPathologist SignatureSODIUM 716577 - 146 mmol/L110/26/2024 12:47 PM [facility] POTASSIUM3.4(L)3.5 - 5.0 mmol/L110/26/2024 12:47 PM ESTE[facility]OSPITALCHLORIDE10498 - 109 mmol/L110/26/2024 12:47 PM ESTEAST [facility] HOSPITALCARBON BLHTIUF6041 - 32 mmol/L110/26/2024 12:47 PM EST [facility]ITALANION GAP85 - 15 mmol/L110/26/2024 12:47 PM [facility] CENTERBLOOD UREA PXZDYKHP996 - 23 mg/dL 08/26/2025 12:47 PM [facility] CENTERCREATININE0.600.40 - 1.00 mg/dL08/26/2025 12:47 PM [facility] CENTERComment: METHOD TRACEABLE TO IDMS TQHLSRVOCFFFDWW4329 - 99 mg/dL08/26/2025 12:47 PM EST [facility]ITALCALCIUM8.58.5 - 10.5 mg/dL08/26/2025 12:47 PM [facility] CENTERTOTAL PROTEIN6.36.0 - 8.0 g/dL 08/26/2025 12:47 PM [facility] CENTERALBUMIN3.33.2 - 5.3 g/dL08/26/2025 12:47 PM [facility] CENTERALKALINE ZBENSJAPELP1472 - 130 U/L110/26/2024 12:47 PM [facility] CENTERAST18<=41 U/L110/26/2024 12:47 PM [facility]ENTERALT18<=31 U/L110/26/2024 12:47 PM [facility] CENTERBILIRUBIN,TOTAL1.3(H)0.3 - 1.2 mg/dL08/26/2025 12:47 PM [facility] MEDICAL CENTEREGFR Non-Race Dependent>90>=60 ml/min/1.73sq.m 08/26/2025 12:47 PM [facility] CENTERComment: eGFR not reported due to non-numeric value for Creatinine. Reported eGFR is based on the CKD-EPI 2020 equation that does not use a race coefficient. Specimen (Source)Anatomical Location / LateralityCollection Method / Volume Collection TimeReceived TimeBloodVenous blood / UnknownVenipuncture / Unknown 08/26/2025 12:08 PM EST08/26/2025 12:26 PM EST Narrative Authorizing ProviderResult TypeResult StatusMathew Diane Gibson DIRECTOR OF RESOURCE DEVELOPMENT-CNPLAB BLOOD ORDERABLESFinal ResultPerforming OrganizationAddressCity/State/ZIP CodePhone Number [facility] [address] [place] [address], documented in this encounter Visit Diagnoses Diagnosis Other migraine without status migrainosus, not intractable- Primary History of Chiari malformation documented in this encounter Administered Medications Medication OrderMAR ActionAction DateDoseRateSite acetaminophen (OFIRMEV) IVPB Premix 1,000 mg 1,000 mg, intravenous, at 400 mL/hr, Administer over 15 Minutes, Once, On Mon08/26/25 at 1157, For1 dose New 08/26/2025 12:43 PM EST1,000 mg400 mL/hr diphenhydrAMINE (BENADRYL) injection 25 mg 25 mg, intravenous, Once, On Mon08/26/25 at 1157, For 1 dose, Look-alike/sound-alike medication - verify indication for use. Given08/26/2025 12:35 PM EST25 mg potassium chloride (KLOR-CON M 20) CR tablet 20 mEq 20 mEq, oral, Once, On Mon08/26/25 at 1356, For 1 dose, Do not crush or chew. Given08/26/2025 2:56 PM EST20 mEq prochlorperazine (COMPAZINE) injection 5 mg 5 mg, intravenous, Once, On Mon08/26/25 at 1157, For 1 dose, When administered via IV Push, do notexceed 5 mg per minute Given08/26/2025 12:35 PM EST5 mg sodium chloride 0.9 % bolus 1,000 mL, intravenous, at 984 mL/hr, Administer over 61 Minutes, Once, On Mon08/26/25 at 1157, For1 dose New 08/26/2025 12:43 PM EST1,000 mL984 mL/hr sodium chloride 0.9 % flush 3 mL 3 mL, intravenous, As needed, line care, before and after each intermittent use, Starting on Mon08/26/25 at 1152 documented in this encounter Active and Recently Administered Medications Times are shown in EST.Medication Order/ acetaminophen (OFIRMEV) IVPB Premix 1,000 mg (COMPLETED) 1,000 mg, intravenous, at 400 mL/hr, Administer over 15 Minutes, Once, On Mon08/26/25 at 1157, For1 dose * 1243 (New Bag - Provider: Josselin Renner, RN) * 1305 (Stop Bag - Provider: Josselin Renner, RN) diphenhydrAMINE (BENADRYL) injection 25 mg (COMPLETED) 25 mg, intravenous, Once, On Mon08/26/25 at 1157, For 1 dose, Look-alike/sound-alike medication - verify indication for use. * 1235 (Given - Provider: Josselin Renner, RN) potassium chloride (KLOR-CON M 20) CR tablet 20 mEq (COMPLETED) 20 mEq, oral, Once, On Mon08/26/25 at 1356, For 1 dose, Do not crush or chew. * 1456 (Given - Provider: Marion Zaragoza, JESSIE) prochlorperazine (COMPAZINE) injection 5 mg (COMPLETED) 5 mg, intravenous, Once, On Mon08/26/25 at 1157, For 1 dose, When administered via IV Push, do notexceed 5 mg per minute * 1235 (Given - Provider: Josselin Renner, RN) sodium chloride 0.9 % bolus (COMPLETED) 1,000 mL, intravenous, at 984 mL/hr, Administer over 61 Minutes, Once, On Mon08/26/25 at 1157, For1 dose * 1243 (New Bag - Provider: Josselin Renner, RN) * 1359 (Stop Bag - Provider: Josselin Renner, RN) Medication Order/ sodium chloride 0.9 % flush 3 mL 3 mL, intravenous, As needed, line care, before and after each intermittent use, Starting on Mon08/26/25 at 1152 documented in this encounter Additional Health Concerns AssessmentNoted TimePHQ-9 Depression Total Score: 12:12 PM EDT documented as of this encounter Care Teams Team MemberRelationshipSpecialtyStart DateEnd Date Pete Thapa Jr., DO [address] [facility] [address] [place] [id number] PCP - GeneralFamily Csfuyika41/18/25documented as of this encounter
--- OUTSIDE RECORDS SUMMARY | 2025-08-28 14:07 | XMS_ITS | Encounter Summary ---
Author Organization [facility] tem Address [id number] [address] [place] [address] Care Team Providers Care Traffic Signal Repairer Name Role Phone Alanis Sky DO, George R Primary Care Provider + Reason for Visit * ReasonCommentsHeadache Encounter Details DateTypeDepartmentCare Team (Latest Contact Info)Cyzmfsqsuna70/20/2025 2:07 PM EST - 08/28/2025 2:22 PM [facility] - Emergency Department [address] [place] [id number] Discharge Disposition: ED Dismiss - Diverted Elsewhere Social History Tobacco UseTypesPacks/DayYears UsedDateSmoking Tobacco: NeverSmokeless Tobacco: NeverAlcohol UseStandard Drinks/WeekCommentsYes0 (1 standard drink = 0.6 oz pure alcohol)q 1x per monthAH UtilitiesAnswerDate RecordedIn the past 12 months has the [employer], gas, oil, or water [employer] threatened to shut off services in your home?No02/27/2025PHQ-2AnswerDate RecordedTotal Ezuxm7753PRAPARE - TransportationAnswerDate RecordedIn the past 12 months, [...] a part of a household?No5ChildcareAnswerDate RecordedChildcareUnknown 03/14/2019EmploymentAnswerDate IeptkyjyJbkuarsfxvIyicahl94/06/2019Hunger ScreeningAnswerDate RecordedWithin the past 12 months we worried whether our food would run out before we got money to buy more.Never True08/28/2025Within the past 12 months the food we bought just didn't last and we didn't have money to get more.Never True08/28/2025Purpose - LifeAnswerDate RecordedPurpose and direction in uconYhlqlxe21/11/2021CommentsYesSex and Gender Information ValueDate RecordedSex Assigned at ZplwrHbrzzx36/07/2022 3:03 PM ESTLegal Sex Iiwslo5803/03/2017 7:57 AM EDTGender RvpdotpqDpugtk26/07/2022 3:03 PM ESTSexual OrientationNot on filedocumented as of this encounter Last Filed Vital Signs Vital SignReadingTime TakenCommentsBlood Xekbrkid495/7208/28/2025 2:16 PM EST Winga962008/28/2025 2:16 PM WBZBkabddtbpyp82.7 ??C (98 ??F)08/28/2025 2:16 PM EST Respiratory Ayni711910/28/2024 2:16 PM ESTOxygen Azomnhopsv76%08/28/2025 2:16 PM ESTInhaled Oxygen Concentration--Xlypkd45.1 kg (170 lb)08/28/2025 2:16 PM EST Vsvbjb380.6 cm (5' 6 )08/28/2025 2:16 PM ESTBody Mass Index27.44110/28/2024 2:16 PM ESTdocumented in this encounter Medications at Time of [...] as of this encounter ED Notes * Eveline Barcenas RN - 08/28/2025 2:15 PM EST Pt presents to ED c/o LANG ongoing for last week. Pt reports she is 13wks . Endorses N/V, sensitivity to lights/sounds. Pt reports hx chiari malformation, previous surg in 2022. Pt denies any care as of yet, states she is trying to get into neurology d/t ongoing LANG. Pt Aox4, VSS at time of triage. documented in this encounter Plan of Treatment DateTypeDepartmentCare Team (Latest Contact Info)Mxwbyniazoj75/22/2025 4:00 PM ESTTelemedicine [facility] Department of [facility] [address] [facility] [address] [place] [address] Bari Caro MD [address] [facility] [address] [place] [address] 11/06/2025 3:15 PM ESTOffice Visit [facility] [address] [facility] [address] [place] [address] Sadia Rai, PA-C [address] [facility] [address] [place] [address] documented as of this encounter Goals GoalPatient Goal TypeAssociated ProblemsRecent ProgressPatient-Stated?Author Home Cherrie Weathers LSW Note: Evaluation of progress towards goal: Safe dc transition from hospital to home. documented as of this encounter Visit Diagnoses Not on filedocumented in this encounter Additional Health Concerns AssessmentNoted TimePHQ-9 Depression Total Score: 12:12 PM EDT documented as of this encounter Care Teams Team MemberRelationshipSpecialtyStart DateEnd Date Pete Thapa Jr., [address] [address] PCP - GeneralFamily Apnsqgfk51/18/25documented as of this encounter
--- OUTSIDE RECORDS SUMMARY | 2025-08-28 14:57 | XMS_ITS | Encounter Summary ---
Author Organization Darek Boucher [facility] Address [address], [address] [place] [address] Care Team Providers Care Residential Nurse Name Role Phone GeethaPete varghese Dagoberto HERMOSILLO Primary Care Provider [phone] Reason for Visit * ReasonCommentsMigrainePatient reports neurologist thinks it may be related to surgery from 2 years ago. Encounter Details DateTypeDepartmentCare Team (Latest Contact Info)Griwuhcdcws49/20/2025 2:57 PM EST - 08/28/2025 5:48 PM [facility] [address] [place] [address] [place] [address] [place] [address] Acute nonintractable headache, unspecified headache type (Primary Dx) Discharge Disposition: Home or Self Care Social History Tobacco UseTypesPacks/DayYears UsedDateSmoking Tobacco: NeverSmokeless Tobacco: NeverAlcohol UseStandard Drinks/WeekCommentsNever0 (1 standard drink = 0.6 oz pure alcohol)AUDIT-CAnswerDate RecordedQ1: How often do you have a drink containing alcohol?Never01/11/2025Q2: How many drinks containing alcohol do you have on a typical day when you are drinking?Patient does not drink01/11/2025Q3: How often do you have six or more drinks on one occasion?Never01/11/2025UDIT-C AnswerDate RecordedQ1: How often do you have a drink containing alcohol?Never 08/28/2025Q2: How many drinks containing alcohol do you have on a typical day when you are drinking?Patient does not drink08/28/2025Q3: How often do you have six or more drinks on one occasion?Never08/28/2025Interpersonal Safety Domain Source: IP Abuse ScreeningAnswerDate RecordedPhysical bnnqbXobbio54/22/2025 Verbal bmtvuMhdzkn27/22/2025Emotional oviyzQucqaf47/22/2025Financial abuseDenies 11/30/2024Sexual zhiarUjfbdm76/22/2025Estimated Date of DeliveryComments Yes03/07/2026Sex and Gender InformationValueDate RecordedSex Assigned at Not on fileLegal LrtRfdavb72/24/2019 9:23 AM EDTGender IdentityNot on fileSexual OrientationNot on filedocumented as of this encounter Last Filed Vital Signs Vital SignReadingTime TakenCommentsBlood Tlluenva706/7408/28/2025 5:43 PM EST Gsgwe40006/20/2025 5:43 PM FXTGilrydiqcaq20.5 ??C (97.7 ??F)08/28/2025 5:43 PM ESTRespiratory Oijv235610/28/2024 5:43 PM ESTOxygen Mfgvugzcdw910%08/28/2025 5:43 PM ESTInhaled Oxygen Concentration--Zsgkvm17.1 kg (170 lb)08/28/2025 2:57 PM EST Pyuurl553.2 cm (5' 7 )08/28/2025 2:57 PM ESTBody Mass Index26.6308/28/2025 2:57 PM ESTdocumented in this encounter Functional Status documented as of this encounter Discharge Instructions * Attachments The following attachments cannot be sent through Care Everywhere. * Headache (Dutch) documented in this encounter Plan of Treatment Not on file documented as of this encounter Visit Diagnoses Diagnosis Acute nonintractable headache, unspecified headache type- Primary documented in this encounter Administered Medications Medication OrderMAR ActionAction DateDoseRateSite diphenhydrAMINE (BENADRYL) injection 50 mg 50 mg, IntraVENous, ONCE, 1 dose, On Hina 08/28/25 at 1530, IV Push at rate not to exceed 25 mg/min. Given08/28/2025 3:35 PM EST50 mg prochlorperazine (COMPAZINE) injection 10 mg 10 mg, IntraVENous, ONCE, 1 dose, On Hina 08/28/25 at 1530, If administering IV push, administer at a maximum rate of 5 mg/minute. Patients should remain lying down following administration and be reassessed for relief of nausea and presence of hypotension. Patients should be assisted the first timethey get up after administration. Given08/28/2025 3:33 PM EST10 mg sodium chloride 0.9 % bolus 1,000 mL 1,000 mL (13 mL/kg), IntraVENous, at 1,000 mL/hr, Administer over 60 Minutes, ONCE, On Hina 08/28/25at 1530, For 1 dose New Bag08/28/2025 3:33 PM EST1,000 kWb1627 mL/hrdocumented in this encounter Active and Recently Administered Medications Times are shown in EST.Medication Order/ acetaminophen (TYLENOL) tablet 1,000 mg 1,000 mg, Oral, ONCE, 1 dose, On Hina 08/28/25 at 1530, Maximum dose of acetaminophen is 4000 mg from all sources in 24 hours. * 1602 (Not Given - Provider: Luz Marina Wakefield RN - Reason: Contraindicated - Comment: Pt. had recently taken tylenol at home) dexAMETHasone (PF) (DECADRON) IntraVENous 10 mg 10 mg, IntraVENous, ONCE, On Hina 08/28/25 at 1530, For 1 dose * 1544 (Not Given - Provider: Luz Marina Wakefield RN - Reason: Patient/family refused) diphenhydrAMINE (BENADRYL) injection 50 mg (COMPLETED) 50 mg, IntraVENous, ONCE, 1 dose, On Hina 08/28/25 at 1530, IV Push at rate not to exceed 25 mg/min. * 1535 (Given - Provider: Luz Marina Wakefield, JESSIE) prochlorperazine (COMPAZINE) injection 10 mg (COMPLETED) 10 mg, IntraVENous, ONCE, 1 dose, On Hina 08/28/25 at 1530, If administering IV push, administer at a maximum rate of 5 mg/minute. Patients should remain lying down following administration and be reassessed for relief of nausea and presence of hypotension. Patients should be assisted the first timethey get up after administration. * 1533 (Given - Provider: Luz Marina Wakefield, JESSIE) sodium chloride 0.9 % bolus 1,000 mL (COMPLETED) 1,000 mL (13 mL/kg), IntraVENous, at 1,000 mL/hr, Administer over 60 Minutes, ONCE, On Hina 08/28/25at 1530, For 1 dose * 1533 (New Bag - Provider: Luz Marina Wakefield, JESSIE) * 1633 (Stopped - Provider: Luz Marina Wakefield RN) documented in this encounter Care Teams Team MemberRelationshipSpecialtyStart DateEnd Date Pete Thapa DO [address] [place] [id number] PCP - GeneralFamily Smmzqqvp65/24/23documented as of this encounter
[2025-09-02 05:36] VITALS: BP 119/73; PULSE 72; TEMP 36.6; O2SAT 99; BMI 26.6
--- NOTE | 2025-09-02 05:50 | ED_ITS ---
HPI - Nausea/Vomiting/Diarrhea General Chief complaint: Nausea/Vomiting/Diarrhea Stated complaint: 13 WKS ; VOMITING, ABDOMINAL PAIN Time Seen by Provider: 09/02/25 05:31 Source: patient Mode of arrival: Wheelchair History of Present Illness HPI Narrative: This 24-year-old female G3, P0 who is 13 weeks presents for evaluation of nausea vomiting and diarrhea that started several hours ago. The patient and her boyfriend are staying with his mother currently and his mother recently was diagnosed with a viral gastroenteritis. The patient most recently ate chicken Ramen noodles. After that her stomach became upset and she has had several episodes of vomiting since that time. She has bilious vomiting and right upper quadrant abdominal pain. She denies any fevers or chills. She has 2-3 episodes of diarrhea as well. She is not having any vaginal bleeding or discharge. Related Data Home Medications ?Medication ?Instructions ?Recorded ?Confirmed 09/02/25 ondansetron HCl 4 mg tablet 4 mg PO Q8H 09/02/2509/02 Allergies Allergy/AdvReac Type Severity Reaction Status Date / Time doxycycline Allergy Unknown Verified 09/02/25 05:34 Penicillins Allergy Unknown Verified 09/02/25 05:34 Review of Systems ROS Status of ROS 10 or more systems reviewed and unremark able except as noted in history and below PFSH PFSH Social History Little interest or pleasure in doing things: not at all Feeling down, depressed, or hopeless: not at all Exam Narrative Exam Narrative: Vital signs and Nursing Notes reviewed: Pt is afebrile with a normal pulse, normal blood pressure, she is not hypoxic with pulse ox of 99% on room air General: Awake, alert, oriented, nontoxic but uncomfortable appearing female with bilious emesis, no respiratory distress HEENT: Normocephalic atraumatic, mucous membranes are moist and pink, eyes are clear, normal conjunctiva, vision is grossly intact, posterior pharynx is normal in appearance. Neck: Supple Chest: Lungs are clear to auscultation with good air entry, there is no wheezing rhonchi or rales appreciated no accessory muscle use, patient is speaking in complete sentences-no chest wall tenderness to palpation CVS: Regular rate and rhythm S1-S2, no murmurs rubs or gallops, pulses are brisk and equal bilaterally ABD: Soft, nondistended, mild epigastric tenderness with no rebound guarding or rigidity Extremities: Moving all extremities, no lower extremity tenderness or swelling noted, negative Homans' sign, pulses are brisk and equal bilaterally Skin: Normal in appearance without rash,pallor, petechiae or purpura Neuro: No focal deficits Constitutional Vital Signs, click to edit/add: Last Vital Signs Temp 97.8 F 09/02/25 05:36 Pulse 72 09/02/25 05:36 Resp 18 09/02/25 05:36 BP 119/73 09/02/25 05:36 Pulse Ox 99 09/02/25 05:36 O2 Del Method Room Air 09/02/25 05:36 Course Vital Signs Vital signs: Vital Signs Temperature 97.8 F 09/02/25 05:36 Pulse Rate 72 09/02/25 05:36 Respiratory Rate 18 09/02/25 05:36 Blood Pressure 119/73 09/02/25 05:36 Pulse Oximetry 99 09/02/25 05:36 Oxygen Delivery Method Room Air 09/02/25 05:36 Temperature 97.8 F 09/02/25 05:36 Pulse Rate 72 09/02/25 05:36 Respiratory Rate 18 09/02/25 05:36 Blood Pressure 119/73 09/02/25 05:36 Pulse Oximetry 99 09/02/25 05:36 Oxygen Delivery Method Room Air 09/02/25 05:36 MDM - Nausea/Vomiting/Diarrhea MDM Narrative Medical decision making narrative: This 24-year-old female G3, P0 who is 13 weeks presents for evaluation of acute onset nausea vomiting diarrhea overnight. She also has epigastric abdominal pain. She last ate chicken Ramen noodles for dinner and woke up in the middle the night with nausea and vomiting. The patient's boyfriend's mother with whom they are currently living with also has a viral gastroenteritis at this time. An IV was placed and she was medicated with IV fluids Zofran and Pepcid. She requested something for pain but I explained to her that nothing is safe in her besides Tylenol and I would not compromise her 13-week fetus with Toradol or narcotic pain medication. She is hemodynamically stable. Routine labs are ordered. White count is mildly elevated 11.3 with stable hemoglobin. Electrolytes and liver function tests are normal incuding a normal CO2 and BUN/Cr. Reevaluation she states she is not feeling better and has had an additional episode of foamy emesis. She was ambulatory to the bathroom to provide a urine specimen. She is hemodynamically stable. She will receive an additional dose of Zofran. She will be signed out to the oncoming physician at 7 AM pending reevaluation. My suspicion is that she will be able to be discharged after additional antiemetics. Lab Data Labs: Lab Results 09/02/25 Range/Units 05:45 WBC 11.3 H (4.0-11.0) 10^3/uL RBC 4.29 (4.20-5.40) 10^6/uL Hgb 13.3 (12.0-16.0) g/dL Hct 38.8 (36.0-48.0) % MCV 90.4 (81.0-99.0) fL MCH 31.0 (26.7-34.0) pg MCHC 34.3 (29.9-35.2) g/dL RDW 12.6 (11.0-15.0) % Plt Count 210 (150-450) 10^3/uL MPV 9.7 (9.5-13.5) fL Neut % (Auto) 84.3 H (43.0-75.0) % Lymph % (Auto) 10.7 L (20.5-60.0) % [place] % (Auto) 4.2 (1.7-12.0) % Eos % (Auto) 0.2 L (0.9-7.0) % Baso % (Auto) 0.2 (0.2-2.0) % Neut # (Auto) 9.5 H (1.4-6.5) 10^3/uL Lymph # (Auto) 1.2 (1.2-3.8) 10^3/uL [place] # (Auto) 0.5 (0.3-0.8) 10^3/uL Eos # (Auto) 0.0 (0.0-0.7) 10^3/uL Baso # (Auto) 0.0 (0.0-0.1) 10^3/uL Abs Immat Gran (auto) 0.05 H (0.00-0.03) 10^3/uL Imm/Tot Granulo (auto) 0.4 (0.0-0.5) % Sodium 139 (136-145) mmol/L Potassium 3.7 (3.5-5.1) mmol/L Chloride 103 (98-107) mmol/L Carbon Dioxide 25.7 (21.0-32.0) mmol/L Anion Gap 14.0 BUN 12.0 (7.0-18.0) mg/dL Creatinine 0.65 (0.55-1.02) mg/dL Est GFR ( Amer) >60 (>=60 mL/min/1.73m^2) Est GFR (Non-Af Amer) >60 (>=60 mL/min/1.73m^2) BUN/Creatinine Ratio 18.5 Glucose 102 (74-106) mg/dL Calcium 8.6 (8.5-10.1) mg/dL Total Bilirubin 0.9 (0.2-1.0) mg/dL AST 20 (15-37) U/L ALT 32 (14-59) U/L Alkaline Phosphatase 62 (46-116) U/L Total Protein 6.8 (6.4-8.2) g/dL Albumin 3.4 (3.4-5.0) g/dL Globulin 3.4 g/dL Albumin/Globulin Ratio 1.0 Discharge Plan Discharge Patient Disposition: Still a Patient
[2025-09-02 05:54] LABS: Hematocrit 38.8 % (36.0-48.0); Hemoglobin 13.3 g/dL (12.0-16.0); Immature Granulocytes Abs Auto 0.05 10^3/uL (0.00-0.03); Immature Granulocytes Pct Auto 0.4 % (0.0-0.5); Lymphocytes Absolute Auto 1.2 10^3/uL (1.2-3.8); Mean Corpuscular HGB Conc 34.3 g/dL (29.9-35.2); Mean Corpuscular Hemoglobin 31.0 pg (26.7-34.0); Mean Corpuscular Volume 90.4 fL (81.0-99.0); Platelet Count 210 10^3/uL (150-450); Red Blood Count 4.29 10^6/uL (4.20-5.40); White Blood Count 11.3 10^3/uL (4.0-11.0)
[2025-09-02] MEDS: FAMOTIDINE/PF 20 MG/2 ML VIAL IV (06:07)
[2025-09-02] MEDS: 0.9 % SODIUM CHLORIDE 1,000 ML 1000 ML IV (06:07)
[2025-09-02 06:10] LABS: Alanine Aminotransferase 32 U/L (14-59); Albumin Globulin Ratio 1.0; Albumin Level 3.4 g/dL (3.4-5.0); Alkaline Phosphatase 62 U/L (46-116); Anion Gap 14.0; Aspartate Amino Transferase 20 U/L (15-37); Blood Urea Nitrogen 12.0 mg/dL (7.0-18.0); Calcium 8.6 mg/dL (8.5-10.1); Carbon Dioxide 25.7 mmol/L (21.0-32.0); Chloride 103 mmol/L (98-107); Estimated GFR (African America >60 (>=60 mL/min/1.73m^2); Estimated GFR (Non-African Ame >60 (>=60 mL/min/1.73m^2); Globulin 3.4 g/dL; Glucose 102 mg/dL (74-106); Potassium 3.7 mmol/L (3.5-5.1); Sodium 139 mmol/L (136-145); Total Protein 6.8 g/dL (6.4-8.2)
--- OUTSIDE RECORDS SUMMARY | 2025-09-02 06:32 | XMS_ITS | Encounter Summary ---
Author Organization [facility] Address [address] [place] [address] Care Team Providers Care Energy Operations Vice President Name Role Phone Pete Thapa DO Primary Care Provider [phone] Encounter Details DateTypeDepartmentCare Team (Latest Contact Info)Fnzybqklyvt43/19/2025Patient Outreach [facility] [address] [place] [id number] Nirali Ferrari LPN [address] [place] [address] Social History Tobacco UseTypesPacks/DayYears UsedDateSmoking Tobacco: NeverSmokeless Tobacco: NeverAlcohol UseStandard Drinks/WeekCommentsNot Currently0 (1 standard drink = 0.6 oz pure alcohol)caffeine: jqogdaoqbxkhC4232 Health LiteracyAnswerDate RecordedHow often do you need to have someone help you when you read instructions, pamphlets, or other written material from your doctor or pharmacy? Patient declines to wdmtole7706/11/2025Humiliation, Afraid, Rape, and Kick questionnaireAnswerDate RecordedWithin the [...] times a week06/11/2025How often do you attend religious or adventist services?1 to 4 times per year06/11/2025Do you belong to any clubs or organizations such as religious groups, unions, [employer] or athletic groups, or school groups?No06/11/2025How often do you attend meetings of the clubs or organizations you belong to?Never06/11/2025re you , , , , never , or living with a partner?Patient wzunbapi17/03/2025 AUDIT-CAnswerDate RecordedQ1: How often do you have a drink containing alcohol? Monthly or less06/11/2025Q2: How many drinks containing alcohol do you have on a typical day when you are drinking?Patient does not drink06/11/2025Q3: How often do you have six or more drinks on one occasion?Less than cebhejn4706/11/2025 Overall Financial Resource Strain (CARDIA)AnswerDate RecordedHow hard is it for you to pay for the very basics like food, housing, medical care, and heating? Somewhat hard06/11/2025PHQ-2AnswerDate RecordedPatient Health Questionnaire-2 Spvco59010/27/2024[facility] [place] [facility] - Occupational Stress QuestionnaireAnswerDate RecordedDo you feel stress - tense, restless, nervous, or anxious, or unable to sleep at night because yourmind is troubled all the time - these days?Only a zzirya2406/11/2025Exercise Vital SignAnswerDate Recorded On average, how many [...] needed for daily living?No06/11/2025Edinburgh Depression ScaleAnswerDate Recorded [place] Depression Scale Zdrbe73310/10/2022The thought of harming myself has occurred to me.Never08/10/2023Housing Stability Vital SignAnswerDate RecordedIn the last 12 months, was there a time when you were not able to pay the mortgage or rent on time?No06/11/2025Number of Times Moved in the Last Year Not on file06/11/2025t any time in the past 12 months, were you homeless or living in a fpc (including now)?No06/11/2025Estimated Date of SswxubirKydsybksOtt23/30/2026ased on last menstrual period of 05/31/2025Sex and Gender InformationValueDate RecordedSex Assigned at BirthNot on fileLegal Sex Mrsijf3112/21/2022 7:12 PM EDTGender FvgewaptDozjvl94/15/2023 7:12 PM EDTSexual OrientationNot on fileOccupationIndustryJob Start DateJob End DateCountry side Not on fileNot on fileNot on filedocumented as of this encounter Functional Status * Over the past 2 weeks, how often have you been bothered by any of the following problems?QuestionAnswerDate of AssessmentAuthorLittle interest or pleasure in doing thingsNot at all08/27/2025 2:06 PM Nirali Sanches LPN Feeling down, depressed, or hopelessNot at all08/27/2025 2:06 PM Nirali Sanches LPNPatient Health Questionnaire-2 Avguj19010/27/2024 2:06 PM Nirali Sanches LPN documented as of this encounter Progress Notes * Nirali Ferrari LPN - 08/27/2025 1:37 PM EST Images from the original note were not included. Flowsheet Row Patient Outreach from 08/27/2025 in [facility] with Nirali Ferrari LPN Hospital Information ED, Hospital or Fdc Facility Discharge? ED Diagnosis other migraines without status migrainosus, not intractable. Discharge Date 08/26/25 Discharged To: Home Setting Discharge Hospital [facility] Engagement Call Start Time 1405 Admission Date 08/26/25 Medications Discharge medications reviewed and reconciled from hospital? Yes Is the patient having any side effects they believe may be caused by any medication additions or changes? No Does the patient have all medications ordered at discharge? Yes Nursing Interventions No intervention needed Is the patient taking all medications as directed (includes completed medication regime)? Yes Nursing Interventions Nurse provided patient education Appointments Does the patient have a primary care provider? Yes Does the patient have any upcoming specialty appointments? Yes [PPV 09/15/2025] Nursing Interventions Advised patient to keep appointment Self Management Patient Teaching Does the patient have access to their discharge instructions? Yes Nursing Interventions Reviewed instructions with patient What is the patient's perception of their health status since discharge? Improving Is the patient/caregiver able to teach back the hierarchy of who to call/visit for symptoms/problems? PCP, Specialist, Home Health nurse, Urgent Care, ED, 911 Yes Wrap Up Call End Time 1410 MORENITA Complete. Call to pt. Pt reports she still has a migraine. Pt voiced she did not fern picker prescribed meds yet but intends to. Pt states she has a condition called Chiari Malformation and has struggled with migraines as a result. Pt is currently at work call was short. Next OB OV 09/15/25. documented in this encounter Plan of Treatment DateTypeDepartmentCare Team (Latest Contact Info)Xnzpgziwxzz93/08/2025 12:30 PM ESTRoutine [facility] [address] [place] [address] Jona Henley MD [address] [place] [address] documented as of this encounter Goals GoalPatient Goal TypeAssociated ProblemsRecent ProgressPatient-Stated?Author Reminders Care PlanOB RemindersLaure Carter RNdocumented as of this encounter Visit Diagnoses Diagnosis Other migraine without status migrainosus, not intractable- Primary documented in this encounter Additional Health Concerns Active ProblemsNoted DateDiagnosed DateOB Jyksdyncy58/10/2025 documented as of this encounter Care Teams Team MemberRelationshipSpecialtyStart DateEnd Date Pete Thapa DO [address] [place] [address] PCP - GeneralFamily Medicine02/14/23documented as of this encounter
--- OUTSIDE RECORDS SUMMARY | 2025-09-02 06:32 | XMS_ITS | Encounter Summary ---
Author Organization [facility] Address [address] [place] [address] Care Team Providers Care Pattern Layout Worker Name Role Phone Pete Thapa DO Primary Care Provider [phone] Encounter Details DateTypeDepartmentCare Team (Latest Contact Info)Pmigmrjcdkg70/21/2025Patient Outreach [facility] [address] [place] [phone] Nirali Ferrari LPN [address] [place] [address] Social History Tobacco UseTypesPacks/DayYears UsedDateSmoking Tobacco: NeverSmokeless Tobacco: NeverAlcohol UseStandard Drinks/WeekCommentsNot Currently0 (1 standard drink = 0.6 oz pure alcohol)caffeine: [id number] Health LiteracyAnswerDate RecordedHow often do you need to have someone help you when you read instructions, pamphlets, or other written material from your doctor or pharmacy? Patient declines to nrpimeb8406/11/2025Humiliation, Afraid, Rape, and Kick questionnaireAnswerDate RecordedWithin the [...] times a week06/11/2025How often do you attend nondenominational or church services?1 to 4 times per year06/11/2025Do you belong to any clubs or organizations such as nondenominational groups, unions, [facility] or athletic groups, or school groups?No06/11/2025How often do you attend meetings of the clubs or organizations you belong to?Never06/11/2025re you , , , , never , or living with a partner?Patient /03/2025 AUDIT-CAnswerDate RecordedQ1: How often do you have a drink containing alcohol? Monthly or less06/11/2025Q2: How many drinks containing alcohol do you have on a typical day when you are drinking?Patient does not drink06/11/2025Q3: How often do you have six or more drinks on one occasion?Less than qkcuejs4406/11/2025 Overall Financial Resource Strain (CARDIA)AnswerDate RecordedHow hard is it for you to pay for the very basics like food, housing, medical care, and heating? Somewhat hard06/11/2025PHQ-2AnswerDate RecordedPatient Health Questionnaire-2 Wjwta59110/29/2024[facility] - Occupational Stress QuestionnaireAnswerDate RecordedDo you feel stress - tense, restless, nervous, or anxious, or unable to sleep at night because yourmind is troubled all the time - these days?Only a hmrxzw3606/11/2025Exercise Vital SignAnswerDate Recorded On average, how many [...] needed for daily living?No06/11/2025Edinburgh Depression ScaleAnswerDate Recorded [place] Depression Scale Iabgb21110/10/2022The thought of harming myself has occurred to me.Never08/10/2023Housing Stability Vital SignAnswerDate RecordedIn the last 12 months, was there a time when you were not able to pay the mortgage or rent on time?No06/11/2025Number of Times Moved in the Last Year Not on file06/11/2025t any time in the past 12 months, were you homeless or living in a assisted (including now)?No06/11/2025Estimated Date of HlkqqccvCvydbkydOkp10/30/2026ased on last menstrual period of 05/31/2025Sex and Gender InformationValueDate RecordedSex Assigned at BirthNot on fileLegal Sex Glpfkc1312/21/2022 7:12 PM EDTGender LcacrkewJyxkzz29/15/2023 7:12 PM EDTSexual OrientationNot on fileOccupationIndustryJob Start DateJob End DateCountry side Not on fileNot on fileNot on filedocumented as of this encounter Functional Status * Over the past 2 weeks, how often have you been bothered by any of the following problems?QuestionAnswerDate of AssessmentAuthorLittle interest or pleasure in doing thingsNot at all08/29/2025 3:49 PM Nirali Sanches LPN Feeling down, depressed, or hopelessNot at all08/29/2025 3:49 PM Nirali Sanches LPNPatient Health Questionnaire-2 Txfhr43210/29/2024 3:49 PM Nirali Sanches LPN documented as of this encounter Progress Notes * Nirali Ferrari LPN - 08/29/2025 3:45 PM EST Images from the original note were not included. Flowsheet Row Patient Outreach from 08/29/2025 in [facility] with Nirali Ferrari LPN Hospital Information ED, Hospital or Group Home Facility Discharge? Hospital Patient has been contacted within two business days of discharge Yes Diagnosis Acute nonintractable headache Discharge Date 08/26/25 Discharge [facility] Engagement Call Start Time 1540 Admission Date 08/26/25 Medications Discharge medications reviewed [...] patient have a primary care provider? Yes Nursing Interventions Verified appointment date/time/provider Does the patient have any upcoming specialty appointments? Yes [OB OV 09/15/25] Nursing Interventions Advised patient to keep appointment [...] 911 Yes Wrap Up Call End Time 1600 ER MORENITA Complete. Call to pt. Pt reports she has some relief when resting. Pt has a condition, Chiari malformation, thisis cause of headaches, that requires a Neuro follow up and it is scheduled 09/29/25. Pt reports she must be cleared by OB before she can begin medication prescribed for headache control. OB OV 09/15/25. documented in this encounter Plan of Treatment DateTypeDepartmentCare Team (Latest Contact Info)Bgqbphayxeg04/08/2025 12:30 PM ESTRoutine BRANDEN [facility] [address] [place] [phone] Jona Henley MD [address] [place] [address] documented as of this encounter Goals GoalPatient Goal TypeAssociated ProblemsRecent ProgressPatient-Stated?Author Reminders Care PlanOB RemindersLaure Carter RNdocumented as of this encounter Visit Diagnoses Diagnosis Acute nonintractable headache, unspecified headache type- Primary documented in this encounter Additional Health Concerns Active ProblemsNoted DateDiagnosed DateOB Qzeyopiqe94/10/2025 documented as of this encounter Care Teams Team MemberRelationshipSpecialtyStart DateEnd Date Pete Thapa DO [address] [place] [address] PCP - GeneralFamily Medicine02/14/23documented as of this encounter
--- OUTSIDE RECORDS SUMMARY | 2025-09-02 06:32 | XMS_ITS | Encounter Summary ---
Author Organization [employer] Address [id number] [place] [address] Care Team Providers Care Energy And Sustainability Manager Name Role Phone Alanis Sky DO, George R Primary Care Provider + Encounter Details DateTypeDepartmentCare Team (Latest Contact Info)Aouekjgrhae43/18/2025Travel Social History Tobacco UseTypesPacks/DayYears UsedDateSmoking Tobacco: NeverSmokeless Tobacco: NeverAlcohol UseStandard Drinks/WeekCommentsYes0 (1 standard drink = 0.6 oz pure alcohol)q 1x per monthAH UtilitiesAnswerDate RecordedIn the past 12 months has the electric, gas, oil, or water company threatened to shut off services in your home?No02/27/2025PHQ-2AnswerDate RecordedTotal Nrfdj0973PRAPARE - TransportationAnswerDate RecordedIn the past 12 months, [...] a part of a household?No5ChildcareAnswerDate RecordedChildcareUnknown 03/14/2019EmploymentAnswerDate YmarkmwhFgadcawgtuRyhhlvu60/06/2019Hunger ScreeningAnswerDate RecordedWithin the past 12 months we worried whether our food would run out before we got money to buy more.Never True02/27/2025Within the past 12 months the food we bought just didn't last and we didn't have money to get more.Never True02/27/2025Purpose - LifeAnswerDate RecordedPurpose and direction in azriSoftucq10/11/2021CommentsNoSex and Gender Information ValueDate RecordedSex Assigned at FyfajGybvzq18/07/2022 3:03 PM ESTLegal Sex Nvgvcb8603/03/2017 7:57 AM EDTGender AzgbmnfcKoiadb87/07/2022 3:03 PM ESTSexual OrientationNot on filedocumented as of this encounter Plan of Treatment DateTypeDepartmentCare Team (Latest Contact Info)Djmcnyayrek47/22/2025 4:00 PM ESTTelemedicine [facility] Department of [facility] [address] [facility] [place] [address] Bari Caro MD [address] [facility] [address] [place] [address] 11/06/2025 3:15 PM ESTOffice Visit [facility] [address] [facility] [address] [place] [address] Sadia Rai, PA-C [address] [facility] [address] [place] [address] documented as of this encounter Goals GoalPatient [...] DO [address] [place] [id number] PCP - GeneralFamily Drdqdpqk34/18/25documented as of this encounter
--- OUTSIDE RECORDS SUMMARY | 2025-09-02 06:32 | XMS_ITS | Clinical Summary ---
Author Organization [facility] Address [address] [place] [address] Care Team Providers Care Fashion Patternmaker Name Role Phone Katie Thapa DO Primary Care Provider Allergies Active AllergyReactionsCriticalityNoted DateComments*Cjazlemu18/18/2010 QchdukcjqlzahxZluubwjbInbl20/25/2013 Other reaction(s): Other: See Comments Passing out, turning white. DoxycyclineDizzy/Pjijnuv4111/29/2021 Other reaction(s): Other: See Comments Other reaction(s): dizziness dizziness Penicillin G AhovwoQsbg91/21/2022 Other reaction(s): rash Medications MedicationSigDispense QuantityRefillsLast FilledStart [...] Problems ProblemNoted DateDiagnosed DateObesity (BMI 30.0-34.9)12/14/2022cne vulgaris 12/14/20224445Kzexphgaomfqgusw81/08/2023Weight gain12/14/2022bnormal thyroid function test12/14/2022 Social History Tobacco UseTypesPacks/DayYears UsedDateSmoking Tobacco: NeverSmokeless Tobacco: Never Tobacco Cessation:Counseling Given: Not Answered Alcohol UseStandard Drinks/WeekCommentsNever0 (1 standard drink = 0.6 oz pure alcohol)CommentsNoSex and Gender InformationValueDate RecordedSex Assigned at BirthNot on fileLegal QmoAuftmz58/20/2023 11:58 AM ESTGender DiogoysgOvzbjf71/20/2023 12:06 PM ESTSexual OrientationNot on file Last Filed Vital Signs Vital SignReadingTime TakenCommentsBlood Jkkxqrfb499/7203 11:07 AM EST Jwbah4005 11:07 AM ESTTemperature--Respiratory Wiil146412/14/2022 11:07 AM ESTOxygen Saturation--Inhaled Oxygen Concentration--Pkegos41.4 kg (203 lb 9.6 oz)12/14/2022 11:07 AM IZXKwjhef648.6 cm (5' 6 )12/14/2022 11:07 AM ESTBody Mass Index32.8603 11:07 AM EST Plan of Treatment Health MaintenanceDue DateLast DoneCommentsGONORRHEA TLQTIL17 2002HEPATITIS C VIRUS JDRVYZCSD82/10/2003HIV SCREENING YVMSKRUHTA23/10/2018CHLAMYDIA SCREEN 2018CERVICAL CANCER SCREENING FUPDNKKBGZ62/10/2024COVID-19 VACCINE ( season)/INFLUENZA VACCINE (#1), 06/04/2021, 07/02/2020, Additional history lrtiwyLQKXXCL62/17/93711406/25/2015, 01/30/2008, 11/08/2004, Additional history existsHEP B VACCINECompleted 04/21/2003, 2002, 2002PNEUMOCOCCAL VACCINE SERIESAged Out04/21/2004, 04/21/2004, 09/09/2003, Additional history existsNo longer eligible based on patient's age to complete this topicTDAP (ADULT)Mtdxdshfi51/17/2015, 01/30/2008, 11/08/2004, Additional history existsHPV VACCINE NCNPAsalhaznt32/05/2017, 12/15/2016, 12/15/2016HPV RXYVTHFWgniiwcwc91/05/2017, 12/15/2016, 12/15/2016 Insurance Care Teams Team MemberRelationshipSpecialtyStart DateEnd Date Katie Thapa DO [address] [place] [address] PCP - GeneralFamily Medicine11/28/22
--- OUTSIDE RECORDS SUMMARY | 2025-09-02 06:32 | XMS_ITS | Clinical Summary ---
Author Organization [facility] Address [address], [address] [place] [address] Care Team Providers Care Grinding Room Inspector Name Role Phone Pete Thapa DO Primary Care Provider [phone] Allergies Active AllergyReactionsCriticalityNoted DateCommentsCyproheptadineDiarrhea,Other (See Comments)High08/02/2013 Other [...] not sure Patient not sure Penicillin G SvfcixUjqqHuf62/21/2022 Other reaction(s): rash Medications No known medications Encounters DateTypeDepartmentCare WdgbOltmteziekw15/20/2025 2:57 PM EST - 08/28/2025 5:48 PM [facility] hospitalhim[facility] [address] [place] [address] Nithin Weller DO Acute nonintractable headache, unspecified headache type (Primary Dx) Discharge Disposition: Home or Self Care08/28/2025Travelfrom Last 3 Months Social History Tobacco UseTypesPacks/DayYears UsedDateSmoking Tobacco: NeverSmokeless [...] have six or more drinks on one occasion?Never01/11/2025UDIT-CAnswerDate RecordedQ1: How often do you have a drink containing alcohol?Never08/28/2025Q2: How many drinks containing alcohol do you have on a typical day when you are drinking?Patient does not drink08/28/2025Q3: How often do you have six or more drinks on one occasion?Never08/28/2025Interpersonal Safety Domain Source: IP Abuse ScreeningAnswerDate RecordedPhysical owgszZhxxka21/22/2025Verbal abuse Vpneyb5011/30/2024Emotional eierhFscluu72/22/2025Financial dczrsNmtgoe42/22/2025 Sexual ptqxeDysnxz08/22/2025Estimated Date of DeliveryCommentsYes 03/07/2026Sex and Gender InformationValueDate RecordedSex Assigned at BirthNot on fileLegal GhrDgjrty96/24/2019 9:23 AM EDTGender IdentityNot on fileSexual OrientationNot on file Last Filed Vital Signs Vital SignReadingTime TakenCommentsBlood Xcovrnet918/7408/28/2025 5:43 PM EST Pxqaf71913/20/2025 5:43 PM NOJCbctdqmsnjc65.5 ??C (97.7 ??F)08/28/2025 5:43 PM ESTRespiratory Usik473710/28/2024 5:43 PM ESTOxygen Nlwkrcqfgo179%08/28/2025 5:43 PM ESTInhaled Oxygen Concentration--Wvfgpl21.1 kg (170 lb)08/28/2025 2:57 PM EST Mfdunm727.2 cm (5' 7 )08/28/2025 2:57 PM ESTBody Mass Index26.6308/28/2025 2:57 PM EST Plan of Treatment Health MaintenanceDue DateLast DoneCommentsVaricella vaccine (2 of 2 - 2-dose childhood series)Depression Xthlyy9310/18/2014HIV screen 2017Chlamydia/GC crdrxa8810/18/2018Meningococcal B vaccine (1 of 2 - Standard)2018Hepatitis C lpimlc341Pap smear2023Flu vaccine (#1)509/02/2024, 06/23/2023, 08/03/2022, Additional history exists COVID-19 Vaccine (3 - season)506/10/2022, 12/22/2022 DTaP/Tdap/Td vaccine (7 - Td or Tdap)5006/25/2015, 01/30/2008, 11/08/2004, Additional history existsHepatitis B woofcfiMkeraksgq07/14/2003, 2002, 2002Hib ipexhhgTzhdzfeag07/14/2004, 04/21/2003, 02/17/2003, Additional history existsPneumococcal 0-49 years VaccineAged Out04/21/2004, 09/09/2003, 04/21/2003, Additional history existsNo longer eligible based on patient's age to complete this topicMeasles,Mumps,Rubella (MMR) vaccine Xjhfqudgqefx90/23/2008, 04/21/2004Polio ojvykwvEmhqozdgx59/23/2008, 09/09/2003, 02/17/2003, Additional history existsMeningococcal (ACWY) vaccineAged Out 07/31/2015No longer eligible based on patient's age to complete this topicHPV cihttciJnxcildvd18/05/2017, 12/15/2016Hepatitis A vmrlmcrNszdlpiwd33/05/2017, 12/15/2016Respiratory Syncytial Virus (RSV) or age 60 yrs+ (No Doses Required)Completed Insurance * Guarantor: LOU ALLENAccount TypeRelation to PatientDate of BirthPhone Billing AddressPersonal/FamilyFather [address] [place] [address] Care Teams Team MemberRelationshipSpecialtyStart DateEnd Date Pete Thapa DO [address] [email or web address] [place] [address] PCP - GeneralFamily Qcradljk01/24/23
--- OUTSIDE RECORDS SUMMARY | 2025-09-02 06:32 | XMS_ITS | Clinical Summary ---
Author Organization [employer] tem Address [id number] [address] [place] [address] Care Team Providers Care Weeder Name Role Phone Alanis Sky DO, George R Primary Care Provider + Allergies Active AllergyReactionsCriticalityNoted DateCommentsDoxycyclineDizzinessLow 2Penicillin G CxhzxeZotaMzo05/10/2022Pollen ExtractsOther (See Comments)Low08/20/2024 Runny nose and itchy eyes Medications MedicationSigDispense QuantityRefillsLast FilledStart DateEnd DateStatus methylphenidate HCl (CONCERTA) 18 mg CR tablet Indications:attention-deficit hyperactivity disorderTake 1 tablet (18 mg total) by mouth every morning Indications: attention deficit disorder with hype ractivity.Active metoclopramide (REGLAN) 10 mg tablet Take 1 tablet (10 mg total) by mouth 4 (four) times a day as needed (nausea, migraine). 20 tablet 5Active diphenhydrAMINE (BENADRYL) 25 mg capsule Take 1 capsule (25 mg total) by mouth every 6 (six) hours as needed (migraine, with reglan). 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 12/27/2022 Overview (12/27/2022): Added automatically from request for surgery [id number] Right lower quadrant abdominal pain11/23/2022 Overview (11/23/2022): Added automatically from request for surgery [id number] Gross lilqonjpl23/15/2023 Overview (11/23/2022): Added automatically from request for surgery [id number] Nausea and dbmjuryc10/07/2022Cerumen debris on tympanic membrane of both ears 1Chronic otitis media11/28/2019Dysfunction of both eustachian tubes 09/27/2017Hearing loss of right ear09/27/2017AnxietyCommentsYes Resolved Problems ProblemNoted DateDiagnosed DateResolved DateAcute right otitis media10/15/2019 2Chronic left ear painhronic perichondritis of external ear, left/Left otitis media 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 Encounters DateTypeDepartmentCare ToueGtgxamrlvdi61/20/2025 2:07 PM EST - 08/28/2025 2:22 PM [facility] - Emergency Department [address] [facility] [place] [address] Discharge Disposition: ED Dismiss - Diverted Hdtapvwqi31/20/7086Ummdpe94/18/2025 11:43 AM EST - 08/26/2025 3:06 PM [facility] - Emergency [address] [place] [address] Shelton Persaud MD Other migraine without status migrainosus, not intractable (Primary Dx); History of Chiari malformation Discharge Disposition: Home08/26/20258832Kzxyri10/14/2025Telephone [facility] Neurology, A Department of [facility] [address] [facility] [address] [place] [address] Otilia Oviedo 07/04/2025Telephone [facility] [address] [place] [phone] Doris Hernandez 07/03/2025Telephone [facility] [address] [place] [phone] Otilia Oviedo from Last 3 Months Immunizations ImmunizationAdministration DatesNext LcrHDvT4601/30/2008,11/08/2004,04/21/2003, 02/17/2003,2002HPV Zfviwlhyhnmw68/09/8286MAA242Hep A, 2 Dose 07/13/2017Hep B, Adolescent or Ggizmelvh37/14/2003,2002,2002 Hepatitis A012/15/2016HiB04/21/2004,04/21/2003,02/17/2003,2002IPV01/30/2008 ,09/09/2003,02/17/2003,2002Influenza, Injectable, quadrivalent (PF) 07/13/2017Influenza, Vrcvhklsyso49/30/2015,07/30/2013,07/28/2011,08/24/2010, 07/22/2009,08/31/2004,10/15/2003,09/12/2003MMR01/30/2008,04/21/2004Meningococcal Qisjmjwtd44/23/2015Pneumococcal Vkgqwjinm56/14/2004,09/09/2003,04/21/2003, 2002Tdap06/25/20153651Ppnrptglc68/31/2005 Family History Medical HistoryRelationNameCommentsBack ProblemsFatherHeart diseaseMaternal GrandfatherLHeart [...] shut off services in your home?No02/27/2025PHQ-2AnswerDate RecordedTotal Morbv8923PRAPARE - TransportationAnswerDate RecordedIn the past 12 months, [...] stay in as a part of a household?No02/27/2025hildcareAnswerDate RecordedChildcareUnknown 03/14/2019EmploymentAnswerDate PuhqugtzKkdxflkxttIdupoqn83/06/2019Hunger ScreeningAnswerDate RecordedWithin the past 12 months we worried whether our food would run out before we got money to buy more.Never True08/28/2025Within the past 12 months the food we bought just didn't last and we didn't have money to get more.Never True08/28/2025Purpose - LifeAnswerDate RecordedPurpose and direction in rutsIqdamll58/11/2021CommentsYesSex and Gender Information ValueDate RecordedSex Assigned at DatmqTgwrtt56/07/2022 3:03 PM ESTLegal Sex Mussor2603/03/2017 7:57 AM EDTGender UmdguronOhtwej89/07/2022 3:03 PM ESTSexual OrientationNot on file Last Filed Vital Signs Vital SignReadingTime TakenCommentsBlood Tqqkicoo146/7211 2:16 PM EST Byoio939508/28/2025 2:16 PM YORZdmshliwiwb90.7 ??C (98 ??F)08/28/2025 2:16 PM EST Respiratory Lbti189610/28/2024 2:16 PM ESTOxygen Ratkopqrjq79%08/28/2025 2:16 PM ESTInhaled Oxygen Concentration--Lrxnrb70.1 kg (170 lb)08/28/2025 2:16 PM EST Odwnkk948.6 cm (5' 6 )08/28/2025 2:16 PM ESTBody Mass Index27.44110/28/2024 2:16 PM EST Plan of Treatment DateTypeDepartmentCare Team (Latest Contact Info)Yfkpubhjrmq45/22/2025 4:00 PM ESTTelemedicine [facility] Department of [facility] [address] [facility] [address] [place] [address] Bari Caro MD [address] [facility] [address] [place] [address] 11/06/2025 3:15 PM ESTOffice Visit [facility] [address] [facility] [address] [place] [address] Sadia Rai, PA-C [address] [facility] [address] [place] [address] Health MaintenanceDue DateLast DoneCommentsAdult BMI Follow Up Plan1Pap Smear2023epression Npiaysrny83/3COVID-19 Vaccine ( season)/10/2022, 3Adult BMI Xfwvajkvj05/20/2026 08/28/2025Tobacco Quhpgnpcl66DTaP,Tdap and Td Vaccines (8 - Td or Tdap)5007/05/2025, 06/25/2015, 01/30/2008, Additional history exists RSV ( or age 60+ yrs) (1 - 1-dose 75+ series)2077Influenza Vaccine Tmhepbfsd67/27/2025, 06/13/2024, 06/23/2023, Additional history exists Goals GoalPatient Goal TypeAssociated ProblemsRecent ProgressPatient-Stated?Author Home Cherrie Weathers LSW Note: Evaluation of progress towards goal: Safe dc transition from hospital to home. Medical Devices ExplantedTypeAreaManufacturerDevice IdentifierShelf Expiration DateModel / Serial / LotTube Ear Jacquelyn Bx/5 Bill - [id number] Implanted:Qty: 1 on 11/02/2017 by Karthikeyan Lopez MD PhD at [facility] Explanted:Qty: 1 on 06/04/2024 [facility] ImplantMEDTRONIC [id number] / / [id number] Procedures Procedure NamePriorityDate/TimeAssociated DiagnosisCommentsCT BRAIN WO CONTSTAT 08/26/2025 1:36 PM EST EXTRA TUBES SST CRSRsxwdhw2025 12:09 PM EST EXTRA TUBES BLUE PWOXvampoa72/18/2025 12:09 PM EST EXTRA CJDYXKtulnkw26/18/2025 12:09 PM EST CBC WITH AUTO DGKWQJAVHIORMABJ45/18/2025 12:09 PM EST COMPREHENSIVE METABOLIC MTKZCBMDX24/18/2025 12:08 PM EST from Last 3 Months Results * CT brain without contrast (08/26/2025 [...] on 08/26/2025 1:46 PM Authorizing ProviderResult TypeResult StatusMathew Diane Gibson JUDICIAL ASSISTANT-CNPIMG CT ORDERABLESFinal Result * SST TOP (08/26/2025 12:09 PM EST)ComponentValueRef RangeTest MethodAnalysis TimePerformed AtPathologist SignatureExtra TubeAuto Ukcwqnim26/18/2025 2:03 PM ESTBarn[facility] (Source)Anatomical Location / LateralityCollection Method / VolumeCollection TimeReceived TimeBloodVenous blood / Zuofivy8808/26/2025 12:09 PM EST08/26/2025 12:27 PM EST Narrative Authorizing ProviderResult TypeResult StatusPatriccortez Persaud MDLAB BLOOD ORDERABLESFinal ResultPerforming OrganizationAddressCity/State/ZIP CodePhone Number [address] [address], * Light Blue Top (08/26/2025 12:09 PM EST)ComponentValueRef RangeTest Method Analysis TimePerformed AtPathologist SignatureExtra TubeAuto Resulted 08/26/2025 2:03 PM [facility] (Source) Anatomical Location / LateralityCollection Method / VolumeCollection Time Received TimeBloodVenous blood / Yzcyhsa1908/26/2025 12:09 PM EST08/26/2025 12:27 PM EST Narrative Authorizing ProviderResult TypeResult StatusDarryntriccortez RAYA BLOOD ORDERABLESFinal ResultPerforming OrganizationAddressCity/State/ZIP CodePhone Number [address] [address], * (ABNORMAL) CBC auto differential (08/26/2025 12:09 PM EST)ComponentValueRef RangeTest MethodAnalysis TimePerformed AtPathologist SignatureWBC7.54 - 11 X10^9/L110/26/2024 12:37 PM [facility]OS[facility]RBC Count4.29 3.8 - 5.2 X10^12/L110/26/2024 12:37 PM [facility] Qggwdmjssc89.311.7 - 15.5 g/dL08/26/2025 12:[address] [facility]OSPITALHematocrit38.835 - 47 %08/26/2025 12:37 PM [facility]ITALMCV9180 - 100 fL08/26/2025 12:37 PM [facility]ITALMCH31.027 - 34 pg08/26/2025 12:[address] [facility]ITALMCHC34.232 - 36 g/dL08/26/2025 12:37 PM [facility]ITALRDW13.111.5 - 15 %08/26/2025 12:37 PM [facility]OSPITALPlatelet Zltxd106322 - 450 X10^9/L110/26/2024 12:37 PM [facility]OS[facility]ITALMPV8.47 - 12 fL08/26/2025 12:37 PM EST [facility]ITALNeutrophils %85.2%08/26/2025 12:37 [address] [facility]OS[facility]ITALLymphocytes %9.0%08/26/2025 12:37 PM EST [facility]ITALMonocytes %4.9%08/26/2025 12:37 PM EST [facility] HOSPITALEosinophils %0.5%08/26/2025 12:37 PM EST [facility]ITALBasophils %0.4%08/26/2025 12:37 PM EST [facility]OSPITALNeutrophils Absolute (A)6.41.5 - 6.6 X10^9/L110/26/2024 12:37 PM [facility]OS[facility]ITALLymphocytes Absolute0.7(L)1.0 - 3.5 X10^9/L110/26/2024 12:37 PM [facility] HOSPITALMonocytes Absolute0.40.0 - 0.9 X10^9/L110/26/2024 12:37 PM EST [facility]OS[facility]ITALEosinophils Absolute0.00.0 - 0.4 X10^9/L 08/26/2025 12:[address] [facility]OSPITALBasophils Absolute 0.00.0 - 0.2 X10^9/L110/26/2024 12:37 PM [facility] Differential TypeAUTOMATED RGYTVWWZZXRY34/18/2025 12:37 PM [facility] (Source)Anatomical Location / Laterality Collection Method / VolumeCollection TimeReceived TimeBloodVenous blood / UnknownVenipuncture / Ejywjrk9708/26/2025 12:09 PM EST08/26/2025 12:26 PM EST Narrative Authorizing ProviderResult TypeResult StatusMathew Diane Gibson JUDICIAL ASSISTANT-CNPLAB BLOOD ORDERABLESFinal ResultPerforming OrganizationAddressCity/State/ZIP CodePhone Number [facility] [address] [place] [address], * (ABNORMAL) Comprehensive metabolic panel (08/26/2025 12:08 PM EST)Component ValueRef RangeTest MethodAnalysis TimePerformed AtPathologist SignatureSODIUM 018098 - 146 mmol/L110/26/2024 12:47 PM [facility] POTASSIUM3.4(L)3.5 - 5.0 mmol/L110/26/2024 12:[address] [facility] HOSPITALCHLORIDE10498 - 109 mmol/L110/26/2024 12:[address] [facility] HOSPITALCARBON REQBULG1748 - 32 mmol/L110/26/2024 12:47 PM [address] [facility]OSPITALANION GAP85 - 15 mmol/L110/26/2024 12:47 PM [facility]OSPITALBLOOD UREA DKPNMKSU555 - 23 mg/dL 08/26/2025 12:47 PM [facility] HOSPITALCREATININE0.600.40 - 1.00 mg/dL08/26/2025 12:47 PM [facility]OSPITALComment: METHOD TRACEABLE TO IDMS PWPTLTLCSIAGRWG9941 - 99 mg/dL08/26/2025 12:47 PM [address] [facility]OSPITALCALCIUM8.58.5 - 10.5 mg/dL08/26/2025 12:[address] [facility] HOSPITALTOTAL PROTEIN6.36.0 - 8.0 g/dL 08/26/2025 12:[address] [facility] HOSPITALALBUMIN3.33.2 - 5.3 g/dL08/26/2025 12:47 PM [facility]OS[facility]ITALALKALINE FSPBQFRSYNW2898 - 130 U/L110/26/2024 12:47 PM ESTPROMEDICA EL C[facility]IONAL MEDICAL CENTERAST18<=41 U/L110/26/2024 12:47 PM ESTPROMEDIORCHARD HOSPITALALT18<=31 U/L110/26/2024 12:47 PM ESTPROMENLO PARK SURGICAL HOSPITALBILIRUBIN,TOTAL1.3(H)0.3 - 1.2 mg/dL08/26/2025 12:47 PM ESTPROMENLO PARK SURGICAL HOSPITALEGFR Non-Race Dependent>90>=60 ml/min/1.73sq.m 08/26/2025 12:[address] [facility] HOSPITALComment: eGFR not reported due to non-numeric value for Creatinine. Reported eGFR is based on the CKD-EPI 2020 equation that does not use a race coefficient. Specimen (Source)Anatomical Location / LateralityCollection Method / Volume Collection TimeReceived TimeBloodVenous blood / UnknownVenipuncture / Unknown 08/26/2025 12:08 PM EST08/26/2025 12:26 PM EST Narrative Authorizing ProviderResult TypeResult StatusMathew Diane Gibson JUDICIAL ASSISTANT-CNPLAB BLOOD ORDERABLESFinal ResultPerforming OrganizationAddressCity/State/ZIP CodePhone Number [facility] [address] [place] [address], from Last 3 Months Insurance * Guarantor: Johan ALLEN TypeRelation to PatientDate of BirthPhone Billing AddressPersonal/FamilyFather [address] [place] [address] Advance Directives * Full Code (Latest Code Status on File) Date ActivatedDate InactivatedComments02/27/2025 12:25 AM02/27/2025 9:28 PM * Full Code Date ActivatedDate InactivatedComments01/27/2023 2:20 PM01/30/2023 2:01 PM * Full Code Date ActivatedDate InactivatedComments12/13/2021 3:09 PM12/14/2021 5:43 PM Care Teams Team MemberRelationshipSpecialtyStart DateEnd Date Pete Thapa Jr., [address] [place] [address] PCP - GeneralFamily Rmsnaplf77/18/25
--- OUTSIDE RECORDS SUMMARY | 2025-09-02 06:32 | XMS_ITS ---
Author Organization [facility] Address [address] [place] [address] Care Team Providers Care Is Architect Name Role Phone Pete Thapa DO Primary Care Provider [phone] Emergency Department Transitional Care Management (TCM) Status:Closed (Closed) Start date:08/28/2025 Enrollment date:08/29/2025 Enrollment reason:Identified using discharge data End date:08/29/2025 Close reason:Not eligible Overview Discharged from [facility] ER on 08/28. Please contact within 2 days of discharge for ER MORENITA and schedule a follow-up appointment if needed. Continued Care and Services Coordination
--- OUTSIDE RECORDS SUMMARY | 2025-09-02 06:32 | XMS_ITS | Encounter Summary ---
Author Organization [facility] Hoodin s tem Address [id number] [address] [place] [address] Care Team Providers Care Utility Service Worker Name Role Phone Alains Sky DO, George R Primary Care Provider + Encounter Details DateTypeDepartmentCare Team (Latest Contact Info)Udizmnlnjiy93/14/2025Telephone [facility] Neurology, A Department of [facility] [address] [facility] [facility] [address] [place] [phone] Otilia Oviedo Social History Tobacco UseTypesPacks/DayYears UsedDateSmoking Tobacco: NeverSmokeless Tobacco: NeverAlcohol UseStandard Drinks/WeekCommentsYes0 (1 standard drink = 0.6 oz pure alcohol)q 1x per monthOHIOHEALTH [facility] UtilitiesAnswerDate RecordedIn the past 12 months has the electric, gas, oil, or water company threatened to shut off services in your home?No02/27/2025PHQ-2AnswerDate RecordedTotal Idlfn4763PRAPARE - TransportationAnswerDate RecordedIn the past 12 months, [...] a part of a household?No02/27/2025hildcareAnswerDate RecordedChildcareUnknown 03/14/2019EmploymentAnswerDate VmorbstgVdxuwlatdcEgyajzo26/06/2019Hunger ScreeningAnswerDate RecordedWithin the past 12 months we worried whether our food would run out before we got money to buy more.Never True08/28/2025Within the past 12 months the food we bought just didn't last and we didn't have money to get more.Never True08/28/2025Purpose - LifeAnswerDate RecordedPurpose and direction in femxNmtefds51/11/2021CommentsNoSex and Gender Information ValueDate RecordedSex Assigned at PgsjlAwtrpc67/07/2022 3:03 PM ESTLegal Sex Ocxzom5803/03/2017 7:57 AM EDTGender WcmymmvuTmbxra91/07/2022 3:03 PM ESTSexual OrientationNot on filedocumented as of this encounter Miscellaneous Notes * Telephone Encounter - Otilia Oviedo - 08/22/2025 2:38 PM EST Student Specialist contacted the patient and offered to reschedule. She declined and kept her appointment as itis. * Telephone Encounter - Juan Camacho - 08/22/2025 2:38 PM EST Patient asked for a sooner appt. Patient is scheduled 09/29/25 w/ Dr. Caro via Video. Patient stated she cannot take the pain of CHIARI and is , 13 weeks and high risk. When patient is moving or bending down, it is hard to deal w/ the pain. Throbbing pain in the frontof the head. Blurring vision and blurred thinking. Patient stated there is no way she can wait till09/29. Asking for scheduling direction or medical direction. * Telephone Encounter - Zenia Monson RN - 08/22/2025 2:38 PM EST Patient is having symptoms every day. She states she was in the ED 2 days ago and they did not do anything for her. She states she can not take the pain anymore. * Telephone Encounter - Zenia Monson RN - 08/22/2025 2:38 PM EST RN spoke with Xiao Ellis NP regarding patient's headaches. She states she should be taking riboflavin and magnesium. She needs to get clearance from her TOBACCO GRADER for Imitrex. She will check and let usknow. She may still go to ED since her pain is so bad. * Telephone Encounter - Zenia Monson RN - 08/22/2025 2:[address] Caro she would like OB to order any imaging if needed for her headaches at this time untilDr Caro can see her. Dr aCro wants to add the patient on to her scheduled for 09/10/2025 at 12:00 pm. * Telephone Encounter - Zenia Monson RN - 08/22/2025 2:38 PM EST RN spoke with the patient she states she works every Monday but can do any other day. documented in this encounter Plan of Treatment DateTypeDepartmentCare Team (Latest Contact Info)Hhtvwblnpqz15/22/2025 4:00 PM ESTTelemedicine [facility], [facility] [address] [place] [phone] Bari Caro MD [address] [facility] [place] [address] 11/06/2025 3:15 PM ESTOffice Visit [facility] [address] [place] [address] Sadia Rai, PA-C [address] [facility] [address] [place] [address] documented as of this encounter [...] Pete Thapa Jr., DO [address] [place] [address] PCP - GeneralFamily Gciwxnns57/18/25documented as of this encounter
--- OUTSIDE RECORDS SUMMARY | 2025-09-02 06:32 | XMS_ITS ---
Author Organization [facility] Address [address] [place] [address] Care Team Providers Care Middle [employer] Reading Teacher Name Role Phone Pete Thapa DO Primary Care Provider [phone] Emergency Department Transitional Care Management (TCM) Status:Closed (Closed) Start date:08/26/2025 Enrollment date:08/27/2025 Enrollment reason:Identified using hospital discharge data End date:08/27/2025 Close reason:Not eligible Overview Discharged from [facility] ER on 08/26. Please contact within 2 days of discharge for ER MORENITA and schedule a follow-up appointment if needed. Continued Care and Services Coordination
--- OUTSIDE RECORDS SUMMARY | 2025-09-02 06:32 | XMS_ITS | Encounter Summary ---
Author Organization [facility] Address [address] [place] [address] Care Team Providers Care Associate Principal Name Role Phone Pete Thapa Primary Care Provider [phone] Encounter Details DateTypeDepartmentCare Team (Latest Contact Info)Nawlnxjcjif34/14/2025Travel Social History Tobacco UseTypesPacks/DayYears UsedDateSmoking Tobacco: NeverSmokeless Tobacco: NeverAlcohol UseStandard Drinks/WeekCommentsNot Currently0 (1 standard drink = 0.6 oz pure alcohol)caffeine: qnyigvcwxklaO2589 Health LiteracyAnswerDate RecordedHow often do you need to have someone help you when you read instructions, pamphlets, or other written material from your doctor or pharmacy? Patient declines to ivpmfvn6606/11/2025Humiliation, Afraid, Rape, and Kick questionnaireAnswerDate RecordedWithin the [...] times a week06/11/2025How often do you attend denominational or rastafari services?1 to 4 times per year06/11/2025Do you belong to any clubs or organizations such as denominational groups, unions, fraternal or athletic groups, or school groups?No06/11/2025How often do you attend meetings of the clubs or organizations you belong to?Never06/11/2025re you , , , , never , or living with a partner?Patient igquovci92/03/2025 AUDIT-CAnswerDate RecordedQ1: How often do you have a drink containing alcohol? Monthly or less06/11/2025Q2: How many drinks containing alcohol do you have on a typical day when you are drinking?Patient does not drink06/11/2025Q3: How often do you have six or more drinks on one occasion?Less than dqdksto4606/11/2025 Overall Financial Resource Strain (CARDIA)AnswerDate RecordedHow hard is it for you to pay for the very basics like food, housing, medical care, and heating? Somewhat hard06/11/2025PHQ-2AnswerDate RecordedPatient Health Questionnaire-2 Rfqnn021Finheber valley medical center [place] of Occupational Health - Occupational Stress QuestionnaireAnswerDate RecordedDo you feel stress - tense, restless, nervous, or anxious, or unable to sleep at night because yourmind is troubled all the time - these days?Only a ixvmag5906/11/2025Exercise Vital SignAnswerDate Recorded On average, how many [...] needed for daily living?No06/11/2025Edinburgh Depression ScaleAnswerDate Recorded [place]ie Depression Scale Aqgin13010/10/2022The thought of harming myself has occurred to me.Never08/10/2023Housing Stability Vital SignAnswerDate RecordedIn the last 12 months, was there a time when you were not able to pay the mortgage or rent on time?No06/11/2025Number of Times Moved in the Last Year Not on file06/11/2025t any time in the past 12 months, were you homeless or living in a residential (including now)?No06/11/2025Estimated Date of OfusexulNhkucaapLwm30/30/2026ased on last menstrual period of 05/31/2025Sex and Gender InformationValueDate RecordedSex Assigned at BirthNot on fileLegal Sex Oiluco4412/21/2022 7:12 PM EDTGender ZpooysgyCyruhs24/15/2023 7:12 PM EDTSexual OrientationNot on fileOccupationIndustryJob Start DateJob End DateCountry side Not on fileNot on fileNot on filedocumented as of this encounter Plan of Treatment DateTypeDepartmentCare Team (Latest Contact Info)Lpnurayqslu31/08/2025 12:30 PM ESTRoutine [facility]ON[facility] [address] [place] [phone] Jona Henley MD [address] [place] [address] documented as of this encounter Goals GoalPatient Goal TypeAssociated ProblemsRecent ProgressPatient-Stated?Author Reminders Care PlanOB RemindersLaure Carter RNdocumented as of this encounter Visit Diagnoses Not on filedocumented in this encounter Additional Health Concerns Active ProblemsNoted DateDiagnosed DateOB Tzzzzprjw23/10/2025 documented as of this encounter Care Teams Team MemberRelationshipSpecialtyStart DateEnd Date Pete Thapa DO [address] [facility] [address] [place] [id number] PCP - GeneralFamily Medicine02/14/23documented as of this encounter
--- OUTSIDE RECORDS SUMMARY | 2025-09-02 06:32 | XMS_ITS | CCD ---
Author Organization [facility] Care Team Providers Care Grey Percher Name Role Phone SREEKANTH JOHNSON Unavailable Unavailable [...] Care Provider MD Gualberto Vann Attending Provider [phone] DO Katie Thapa Primary Care Provider [phone] MD Gualberto Vann Attending Provider Salas Patricia Unavailable DO Katie Thapa Primary Care Provider MD Gualberto Vann Attending Provider DO Pérez Barcenas M Attending Provider Pérez Barcenas Unavailable DO Katie Thapa Primary Care Provider [phone] MD Yung Nichols Jr Emergency Provider Unavailable [...] George R Primary Care Provider U navailable Crtalic-JaxonKerry collins RD Unavailable Katie Thapa DO Primary Care Provider Yaritza Bauer APRN Emergency Provider PETE THAPA Primary Care Unavailable MILTON GARCIA Attending Unavailable PETE THAPA Primary Care Unavailable AKIKO ACOSTA Attending Unavailable PETE THAPA Primary Care Unavailable ROHIT ROB Attending Unavailable GUALBERTO AVNN Referring Unavailable ALANIS, PETE Arenas Primary Care Unavailable MICH VERDE Attending Unavailable KAMARENAN , PETE R Referring Unavailable KAFTAN JR, PETE R Primary Care Unavailable LUIS ENRIQUE JENNINGS Attending Unavailable KAMAGUI ROGER, PETE R Referring Unavailable KAFTAN JR, PETE R Primary Care Unavailable MICH VERDE Attending Unavailable KAFTAN JR, PETE R Referring Unavailable KAFTAN JR, PETE R Primary Care Unavailable SADIA RAI Attending Unavailable ALANIS ROGER, PETE R Referring Unavailable KAMARENAN , PETE R Primary Care Unavailable MICH VERDE Attending Unavailable KAMARENAN JR, PETE R Referring Unavailable KAFTAN JR, PETE R Primary Care Unavailable SADIA RAI Attending Unavailable ALANIS ROGER, PETE R Referring Unavailable KAMARENAN JR, PETE R Primary Care Unavailable KAMARENAN JR, PETE R Referring Unavailable KAMARENAN JR, PETE R Primary Care Unavailable KAFTAN JR, PETE R Primary Care Unavailable FERNANDA CHRISTY Attending Unavailable KAMARENAN JR, PETE R Primary Care Unavailable DANIELE EDMOND Admitting Unavailable NOLA SESAY Attending Unavailable Alanis Sky DO, George R Primary Care Provider Chris White MD Attending Provider Yaritza Bauer Admitting Unavailable Katie Thapa Primary Care Unavailable Yaritza Bauer Attending Unavailable Chris White Attending Unavailable Chris White Admitting Unavailable Katie Thapa Primary Care Unavailable GUALBERTO VANN Attending Unavailable PETE THAPA Attending Unavailable GUALBERTO VANN Attending Unavailable GUALBERTO VANN Attending Unavailable PETE THAPA Attending Unavailable GUALBERTO VANN Attending Unavailable Allergies Allergy ClassificationReported Allergen(s)Allergy TypeDate of OnsetReaction(s) Facility (1 source)lactoseDrug Ykcdqrf75-12-9938[facility] (20 sources)Cyproheptadine; Translations: [CYPROHEPTADINE]Drug Rtkjebm66-43-7361 Diarrhea, Other: See Comments, Other (See Comments)[facility] (20 sources)Seasonal allergy; Translations: [SEASONAL ALLERGIES]Propensity to adverse vrolqgdpz26-13-3778[facility] (20 sources)Doxycycline; Translations: [DOXYCYCLINE]Drug Euarrfc62-30-6736Uowef: See Comments, rash, Dizziness, Dizziness or Vertigo, Other (See Comments) [facility] Work Phone: (20 sources)Penicillin G; Translations: [PENICILLIN G SODIUM]Drug Allergy 24-93-6125BdvkKsf[facility]clki [facility] Work Phone: (20 sources)Penicillins; Translations: [Penicillins]Allergy to substance 61-22-7072Ehebwjt Reaction, Unknown Reaction, rashUniversity Hospitals Health System (20 sources)Azithromycin; Translations: [azithromycin]Drug Gpuauhx94-15-6913 Unknown ReactionUniversity Hospitals Health SystemComment on above:Tachycardia and rash (20 sources)oxyCODONE; Translations: [oxycodone]Drug Deeffxy44-48-3635 PalpitationsUniversity Hospitals Health System (5 sources)PenicillinDrug AllergyAdventHealth Waterman MovieLaLa Other (20 sources)Penicillin G sodiumAllergy to cfgpqorbj84-42-4435JkalBTFR Healthcare (20 sources)Levonorgestrel-Ethinyl Estrad; Translations: [LEVONORGESTREL-ETHINYL ESTRAD]Drug Txzoctwtbnf88-89-9550Udpey (See Comments)[employer] (15 sources)Pollen; Translations: [POLLEN EXTRACTS]Propensity to adverse reactions to roud13-89-4365Qxszu (See Comments)[employer] [facility] (1 source)DoxycyclineDrug Sfbvjac92-04-6697OcuiusvtpUniversity Hospitals Health System Repository Medications Current Medications MedicationDrug Class(es)DatesSig (Normalized)Sig (Original)acetaminophen 250 mg / aspirin 250 mg / caffeine 65 mg oral tablet (2 sources)Platelet Aggregation Inhibitor, Nonsteroidal Anti-inflammatory Drug, Central Nervous System Stimulant, Methylxanthinetake 2 tablets by mouth every twenty-four hoursExcedrin Migraine 250-250-65 MG 2 tablets Orally Once a day Activeacetaminophen 325 mg / HYDROcodone bitartrate 5 mg oral tablet (4 sources)Opioid AgonistStart: 08-27-2024 End: 33-46-2423AVAJBdvovrl-acetaminophen (NORCO) 5-325 mg per tablet Indications: Acute post-operative pain Take 1tablet by mouth every 4 (four) hours as needed for pain for up to 3 days. Max Daily Amount: 6 tablets 18 tablet 08/27/2024 08/30/2024 ActiveStart: 06-28-2024 End: 94-07-4073rblm 1 tablet by mouth every six hours as needed for pain Hydrocodone-Acetaminophen 5-325 mg tablet Discontinued 1 - 2 TAB PO Q6H as needed for pain 15 3 June 28, 2024 February 18, 2025 6:15pmadapalene 0.001 mg/mg topical gel (10 sources)RetinoidStart: 76-62-7417tvalzbegy (DIFFERIN) 0.1 % gel Indications: Acne vulgaris Apply to all acne-prone areas at bedtime.45 g 5 08/16/2023 Active Comment on above:Apply to all acne-prone areas at bedtime.betamethasone 0.5 mg/ml / clotrimazole 10 mg/ml topical cream (13 sources)Azole Antifungal, CorticosteroidStart: 12-26-2023 End: 84-05-7637hahqwjrmylgp-betamethasone (LOTRISONE) cream Apply 1 application to affected area two times a day. 45 g 11 12/26/2023 01/25/2024 ActiveStart: 06-27-2023 End: 61-17-6090iuctqibblach-betamethasone (LOTRISONE) cream Indications: Otomycosis Apply 1 Application topically in the morning and 1 Application before bedtime. Apply to external auditory canals twice daily for 1week then twice weekly thereafter.. 30 g 3 06/27/2023 08/20/2024 Discontinued (Therapy completed)Comment on above:Apply 1 application to affected area two times a day. cephalexin 500 mg oral capsule (20 sources)Cephalosporin AntibacterialStart: 07-15-2025 End: 90-35-6817rukdsdpled (Keflex) 500 MG capsule Indications: Vaginal burning , Vaginal irritation , Vaginal itching Take 1 capsule (500 mg) by mouth in the morning and 1 capsule (500 mg) at noon and 1 capsule (500 mg) in the evening and 1 capsule (500 mg) before bedtime. Do all this for 10 days. 40 capsule 07/1507/25/2025 ActiveStart: 06-28-2024 End: 67-99-0413gtck 2 capsules by mouth twice dailyCephalexin 500 mg capsule Discontinued 1000 MG PO Twice daily 05 05June 28, 2024 12:00am 2024 6:15pmStart: 09-37-4825ehtm 1000 mg by mouth twice dailyCephalexin Active 1000 MG PO Twice daily 05 05June 28, 2024 12:00amStart: 12-01-2021 End: 22-41-6537hpiiUDLFwr (KEFLEX) 500 mg capsule Take 500 capsules by mouth as needed. 0 12/01/2021 08/20/2022 Discontinued (Course of therapy completed) Comment on above:Take 500 capsules by mouth as needed.ciprofloxacin 500 mg oral tablet (1 source)Quinolone AntimicrobialStart: 10-29-2024 End: 61-80-7768acre 1 tablet by mouth in the morningciprofloxacin (Cipro) 500 MG tablet Indications: Acute vaginitis Take 1 tablet (500 mg) by mouth inthe morning and 1 tablet (500 mg) before bedtime. Do all this for 5 days. 10 tablet 1 10/29/2024 11/03/2024 Activeciprofloxacin 3 mg/ml / dexamethasone 1 mg/ml otic suspension (3 sources)Corticosteroid, Quinolone AntimicrobialStart: 03-18-2024 End: 88-93-9677nlbssghvdgcmm-dexAMETHasone (CIPRODEX) otic suspension Indications: Otomycosis , Dysfunction of right eustachian tube , Acute right otitis media Administer 4 drops into both ears in the morning and 4drops before bedtime. Do all this for 5 days. 7.5 mL 03/18/2024 03/23/2024 ActiveStart: 94-36-0967Fmjfgzjowsfmj-dexAMETHasone 0.3-0.1 % 4 drops into affected ear Otic Twice a day for 7 days Not-Taking/PRNclindamycin 300 mg oral capsule (20 sources)Lincosamide AntibacterialStart: 07-30-2025 End: 14-96-9916tkdvbdpadrb (Cleocin) 300 MG capsule Indications: Urinary tract infection without hematuria, site unspecified Take 1 capsule (300 mg) by mouth in the morning and 1 capsule (300 mg) at noon and 1 capsule (300 mg) in the evening and 1 capsule (300 mg) before bedtime. Do all this for 10 days. 40 capsule 07/30/2025 08/09/2025 ActiveStart: 06-03-2025 End: 82-87-1032tskjktnvrok (Cleocin T) 1 % external solution Indications: Acne vulgaris Apply topically in the morning and before bedtime. APPLY TO AFFECTED AREAS ON FACE ONCE A DAY. 30 mL 3 06/13/2025 ActiveStart: 58-76-3849kowdwplcgvd (CLEOCIN) 1 % external solution Indications: Acne vulgaris APPLY TO AFFECTED AREAS ON FACE ONCE EVERYDAY 60 mL 03/19/2025 ActiveStart: 93-79-3938calvsrhixvp (Cleocin T) 1 % external solution APPLY TO AFFECTED AREAS ON FACE ONCE A DAY 10/13/2024tiveStart: 12-26-2023 End: 56-90-5589jcupspymrxr (CLEOCIN) 1 % external solution Indications: Acne vulgaris APPLY TO AFFECTED AREAS ON FACE ONCE A DAY 60 mL 01/08/2025 03/19/2025 DiscontinuedStart: 09-12-2022 End: 89-69-5636voawssykxjk (CLEOCIN) 1 % external solution Indications: Acne vulgaris Apply to the affected area of face once daily. 60 mL 5 05/05/2023 ActiveStart: 08-17-2022 End: 87-10-3732scaxrprmroc (CLEOCIN T) 1 % lotion Apply 1 application. topically in the morning. 08/17/2022 08/20/2024 Discontinued (Therapy completed)Start: 06-01-2022 End: 00-37-0893egppvztrikj (CLEOCIN) 1 % external solution Indications: Acne vulgaris Apply to the affected area of acne twice daily. 60 mL 5 06/01/2022 08/17/2022 DiscontinuedStart: 03-17-2022 End: 00-32-9318Ozrbmgqxorn Phosphate (CLEOCIN T) 1 % lotion Indications: Acne vulgaris Apply to facial area daily at bedtime. 60 mL 5 08/17/2022 09/12/2022 Discontinued (Side Effects)Start: 08-30-2021 End: 02-51-1024cuchzmrcpiq (CLEOCIN) 1 % external solution Indications: Acne [...] - Male misc (11 sources)Start: 10-29-2024 End: 59-45-7169Jmeljjy - Male misc Indications: Acute vaginitis 1 Units Daily 10 Units 2 10/29/2024 06/13/2025 DiscontinuedStart: 09-65-4842Uncizfm - Male misc Indications: Acute vaginitis 1 Units Daily 10 Units 2 10/29/2024 Activedapsone 0.05 mg/mg topical gel (7 sources)SulfoneStart: 05-05-2023 End: 28-19-2650Spzrjtb (ACZONE) 5 % gel Indications: Acne vulgaris Apply to affected area every morning. 60 g 5 05/05/2023 05/04/2024 ActiveStart: 17-22-6500Bkyagjs (ACZONE) 5 % gel Indications: Acne vulgaris Apply to affected area every morning. 60 g 3 01/04/2023 ActiveComment on above:Apply to affected area every morning.fluticasone propionate 0.05 mg/actuat metered dose nasal spray (1 source)CorticosteroidStart: 72-74-1161mibr 1 spray(s) nasal route once daily Fluticasone Propionate 50 MCG/ACT 1 spray in each nostril Nasally Once a day for 14 day(s) Jun, Activemeclofenamate 100 mg oral capsule (20 sources)Start: 39-76-5461umdfdlohfsanr (Meclomen) 100 MG capsule Indications: Chiari malformation type I (HCC) One tablet tid on menses No hormones due to Chiari malformation 120 capsule 2 06/10/2025 Segfuw61 hr methylphenidate hydrochloride 18 mg extended release oral tablet (20 sources)Central Nervous System StimulantStart: 02-17-2025 End: 32-12-7759tstk 1 tablet by mouth in the morningmethylphenidate ER (Concerta) 18 MG CR tablet Indications: Attention deficit hyperactivity disorder (ADHD), combined type Take 1 tablet (18 mg) by mouth in the morning. Do not crush, chew, or split. 30 tablet 06/13/2025 ActiveStart: 05-17-2024 End: 62-59-7712ylqm 1 tablet by mouth in the morningmethylphenidate ER (Concerta) 18 MG CR tablet Indications: Attention deficit hyperactivity disorder (ADHD), combined type Take 1 tablet (18 mg) by mouth in the morning. Do not crush, chew, or split. 30 tablet 02/17/2025 ActiveStart: 12-19-2023 End: 74-80-1059vzxv 1 tablet by mouth once dailymethylphenidate HCl (CONCERTA) 18 mg CR tablet Take 1 tablet (18 mg total) by mouth daily. 0 12/19/2023 01/18/2024 ActiveComment on above:Take 18 mg by mouth once daily. methylPREDNISolone (6 sources)CorticosteroidStart: 42-93-2970xhofbkYHUDQSRqgvnh (MEDROL, [place],) 4 mg tablet Indications: Tongue swelling follow package directions 21 tablet 09/03/2024 ActivemetroNIDAZOLE 500 mg oral tablet (2 sources)Nitroimidazole AntimicrobialStart: 08-17-2024 End: 50-70-4229cgud 1 tablet by mouth in the morning, then take 1 tablet by mouth at bedtimemetroNIDAZOLE (FLAGYL) 500 mg tablet Take 1 tablet (500 mg total) by mouth in the morning and 1 tablet (500 mg total) before bedtime. 08/17/2024 08/24/2024 Activenitrofurantoin, macrocrystals 25 mg / nitrofurantoin, monohydrate 75 mg oral capsule (1 source)Nitrofuran AntibacterialStart: 06-13-2025 End: 66-66-7173deai 1 capsule by mouth in the morningnitrofurantoin, macrocrystal-monohydrate, (Macrobid) 100 MG capsule Indications: Urinary tract infection without hematuria, site unspecified Take 1 capsule (100 mg) by mouth in the morning and 1 capsule (100 mg) before bedtime. Do all this for 7 days. 14 capsule 06/13/2025 06/20/2025 Activeondansetron 4 mg oral tablet (20 sources)Serotonin-3 Receptor AntagonistStart: 05-18-9372bcfk 1 tablet by mouth every six hours as needed for nausea and vomiting and nausea and nausea ondansetron (Zofran) 4 MG tablet Indications: Nausea Take 1 tablet (4 mg) by mouth every 6 (six) hours if needed for nausea or vomiting 30 tablet 1 08/07/2025 ActiveStart: 07-14-2025 End: 34-57-8703kpps 1 tablet by mouth twice daily as needed for nausea ondansetron (Zofran) 4 MG tablet Indications: Nausea Take 1 tablet (4 mg) by mouth 2 (two) times a day as needed for nausea or vomiting 20 tablet 07/14/2025 08/13/2025 ActiveStart: 11-16-2024 End: 26-37-2275dgen 1 tablet by mouth every eight hours as needed for nausea and vomitingondansetron ODT (Zofran-ODT) 4 MG disintegrating tablet Take 4 mg by mouth every 8 (eight) hours ifneeded for nausea or vomiting 11/16/2024 06/10/2025 DiscontinuedStart: 11-16-2024 End: 01-81-1700ygme 1 tablet by mouth three times daily as needed for nausea ondansetron (ZOFRAN-ODT) 4 MG disintegrating tablet Take 1 tablet by mouth 3 times daily as needed for Nausea or Vomiting 21 tablet 11/16/2024 12/01/2024 Discontinued (Contraindicated)Start: 11-16-2024 End: mg, IntraVENous, ONCE, 1 dose, On 11/16/24 at 0115Start: 09-23-2023 End: 84-70-3322ubob 1 tablet by mouth every eight hours as needed for nausea ondansetron ODT (ZOFRAN ODT) 4 mg disintegrating tablet Dissolve 1 tablet (4 mg total) on tongue every 8 (eight) hours as needed for nausea for up to 10 doses. 10 tablet 09/23/2023 08/20/2024 Discontinued (Therapy completed)Start: 12-15-2021 End: 45-13-5528vxdz 1 tablet by mouth every four hours as neededondansetron orally disintegrating (ZOFRAN ODT) 4 mg disintegrating tablet DISSOLVE 1 TABLET IN MOUTH EVERY 4 HOURS NEEDED 0 12/15/2021 08/20/2022 DiscontinuedStart: 12-01-2021 End: 71-38-2468pgda 1 tablet by mouth every six hours as needed for nausea and vomitingOndansetron 4 mg tablet,disintegrating Discontinued 4 MG PO Q6H as needed for nausea and vomiting 5February 2021 1:00am August 03, 2023 4:04pmStart: 11-30-2021 End: 28-99-1329tneg 1 tablet by mouth every eight hours as needed for nausea and vomitingOndansetron 4 mg tablet,disintegrating Discontinued 4 MG PO Q8H as needed for nausea and vomiting November 30, 2021 1:00am August 03, 2023 4:04pmComment on above:DISSOLVE 1 TABLET IN MOUTH EVERY 4 HOURS NEEDED pimecrolimus 10 mg/ml topical cream (20 sources)Calcineurin Inhibitor ImmunosuppressantStart: 96-52-3587xfelfgvcbvkj (ELIDEL) 1 % cream Indications: Other eczema APPLY 2 TIMES DAILY TO FACIAL AREAS NEEDED FOR RASH/ITCHING 30 g 3 09/12/2022 ActiveComment on above:APPLY 2 TIMES DAILY TO FACIAL AREAS NEEDED FOR RASH/ITCHINGPrenatal Vit-Fe Fumarate- FA ( Vitamins) 28-0.8 MG tablet (14 sources)Start: 07-03-2025 End: 43-35-3656yghj 1 tablet by mouth once dailyPrenatal Vit-Fe Fumarate-FA ( Vitamins) 28-0.8 MG tablet Indications: confirmed by positive blood test ([facility]) Take 1 tablet by mouth Daily 30 tablet 11 07/03/2025 07/03/2026 Activesulfacetamide sodium 100 mg/ml / sulfur 50 mg/ml topical lotion (10 sources)Sulfonamide AntibacterialStart: 09-19-0986Ypaxfsgfkqgnf Sodium- Sulfur 10-5 % (w/w) lotn Indications: Acne vulgaris Apply to all acne-prone are as twice daily 60 g 5 08/16/2023 ActiveComment on above:Apply to all acne-prone areas twice dailysulfamethoxazole 800 mg / trimethoprim 160 mg oral tablet (1 source)Dihydrofolate Reductase Inhibitor Antibacterial, Sulfonamide AntimicrobialStart: 03-07-2024 End: 31-35-9610oout 1 tablet by mouth once in the morningsulfamethoxazole- trimethoprim (BACTRIM DS) 800-160 mg per tablet Take 1 tablet by mouth in the morning and 1 tablet before bedtime. Do all this for 7 days. 14 tablet 03/07/2024 03/14/2024 Activeterbinafine 250 mg oral tablet (3 sources)Allylamine AntifungalStart: 11-21-2023 End: 18-07-4559qupn 1 tablet by mouth once dailyterbinafine HCl (LAMISIL) 250 mg tablet Take 1 tablet by mouth once daily. 90 tablet 0 11/21/2023 02/19/2024 ActiveComment on above:Take 1 tablet by mouth once daily.terconazole 4 mg/ml vaginal cream (7 sources)Azole AntifungalStart: 08-18-2025 End: 12-35-8529xyhliyukmen (Terazol 7) 0.4 % vaginal cream Indications: Vaginitis and vulvovaginitis Insert 1 applicator into the vagina at bedtime for 7 days 45 g 08/18/2025 08/25/2025 ActiveStart: 08-05-2025 End: 78-67-8733mphybvetmrw (Terazol 7) 0.4 % vaginal cream Indications: Vulvovaginal Candidiasis Insert 1 applicator into the vagina at bedtime for 7 days 45 g 2 08/05/2025 08/12/2025 ActiveStart: 10-23-2024 End: 50-71-8400yvxmjcenzet (Terazol 7) 0.4 % vaginal cream Indications: Vulvovaginal Candidiasis Insert 1 applicator into the vagina at bedtime for 7 days 45 g 2 10/23/2024 10/30/2024 Activetriamcinolone acetonide 1 mg/ml topical cream (18 sources)CorticosteroidStart: 52-75-5162odeovemvtzrcz (Kenalog) 0.1 % cream Indications: Acute vulvitis Apply topically in the morning and before bedtime. 30 g 2 08/05/2025 ActiveStart: 10-23-2024 End: 87-64-8623jowoudvroiscz (Kenalog) 0.1 % cream Indications: Vaginal burning Apply topically 2 (two) times a day 30 g 2 10/23/2024 06/13/2025 Discontinued vancomycin 250 mg oral capsule (7 sources)Glycopeptide AntibacterialStart: 07-30-2025 End: 81-24-2065xyrueelpwl (Vancocin) 250 MG capsule Indications: Urinary tract [...] Central Nervous System Stimulant, MethylxanthineStart: 11-30-2021 End: 68-97-5484mbpv 1 capsule by mouth every six hours as needed for pain Dgekjeuqze-Lpytafjajsejy-Fjle 50-325-40 mg capsule Discontinued 1 CAP PO Q6H as needed for pain November 30, 2021 1:00am August 03, 2023 4:04pm12 hr acetaZOLAMIDE 500 mg extended release oral capsule (5 sources)Carbonic Anhydrase InhibitorStart: 11-17-2022 End: 41-76-5407ivstkEYMUKNSQ SR (DIAMOX SEQUELS) 500 mg capsule Take 1 at bedtime. Can increase to bid after 1 month only if needed 60 capsule 5 11/17/2022 06/01/2023 DiscontinuedComment on above:Take 1 at bedtime. Can increase to bid after 1 month only if neededamoxicillin 500 mg oral capsule (2 sources)Penicillin-class AntibacterialStart: 11-29-5790qqvc 1 capsule by mouth every eight hoursAmoxicillin 500 MG 1 capsule Orally three times a day for 10 day(s) Jun, Not-Taking/PRNazithromycin 500 mg oral tablet (7 sources)Macrolide AntimicrobialStart: 08-03-2023 End: 23-55-4211uduf 1 tablet by mouth once dailyAzithromycin (Zithromax) 500 mg tablet Discontinued 500 MG PO Daily 7 August 03, 2023 12:00am August 17, 2023 4:57pmcetirizine hydrochloride 10 mg oral tablet (5 sources)Histamine-1 Receptor AntagonistStart: 03-05-2024 End: 12-35-1735bcwj 1 tablet by mouth once daily as neededcetirizine (ZyrTEC) 10 MG tablet Indications: Rash and nonspecific skin eruption TAKE 1 TABLET (10 MG) BY MOUTH DAILY NEEDED 30 tablet 03/05/2024 07/17/2024 Discontinuedciclopirox 80 mg/ml topical solution (14 sources)Start: 11-29-2021 End: 71-04-7205Xiufdvgefx (LOPROX) 8 % solution APPLY 1 APPLICATION EXTERNALLY EVERY DAY 0 11/29/2021 08/20/2022 DiscontinuedComment on above:APPLY 1 APPLICATION EXTERNALLY EVERY DAYcyclobenzaprine hydrochloride 10 mg oral tablet (14 sources)Muscle RelaxantStart: 11-29-2021 End: 72-13-5830cvvy 1 tablet by mouth three times dailycyclobenzaprine (FLEXERIL) 10 mg tablet Take 10 mg by mouth three times daily. 0 11/29/2021 08/20/2022 Discontinued (Course of therapy completed)Comment on above:Take 10 mg by mouth three times daily.diphenhydrAMINE hydrochloride 25 mg oral capsule (14 sources)Histamine-1 Receptor AntagonistStart: 12-22-2021 End: 92-14-7912ujlk 1-2 capsules by mouth at bedtimediphenhydrAMINE (BENADRYL) 25 mg capsule Take 1-2 po at bedtime 60 capsule 5 12/22/2021 08/20/2022 D iscontinued (Course of therapy completed)Comment on above:Take 1-2 po at bedtime doxycycline monohydrate 100 mg oral tablet (3 sources)Tetracycline-class DrugStart: 08-17-2022 End: 11-43-6180pqru 1 tablet by mouth once dailydoxycycline monohydrate 100 mg tablet Indications: Acne vulgaris Take 1 tablet by mouth once daily.30 tablet 1 08/17/2022 09/12/2022 Discontinued (Side Effects)Comment on above:Take 1 tablet by mouth once daily.2 ml droperidol 2.5 mg/ml injection (1 source)Dopamine-2 Receptor AntagonistStart: 11-16-2024 End: 51.25 mg, IntraVENous, ONCE, 1 dose, On 11/16/24 at 0215Start: 11-16-2024 End: 51.25 mg, IntraVENous, ONCE, 1 dose, On 11/16/24 at 0215Ethinyl Estradiol / Levonorgestrel (14 sources)Progestin, Estrogen, Progestin-containing Intrauterine DeviceStart: 11-29-2021 End: 99-90-8408qmfy 0.02 tablet by mouth once dailyBALCOLTRA 0.1 mg-0.02 mg (21)/36.5 mg(7) tab Take 1 tablet by mouth once daily. 0 11/29/2021 08/20/2022 Discontinued (Course of therapy completed)Start: 53-12-0296rueb 0.02 tablet by mouth once dailyBALCOLTRA 0.1 mg-0.02 mg (21)/36.5 mg(7) tab Take 1 tablet by mouth once daily. 0 11/29/2021 ActiveComment on above:Take 1 tablet by mouth once daily.ibuprofen 800 mg oral tablet (19 sources)Nonsteroidal Anti-inflammatory DrugStart: 02-27-2025 End: 31-62-8550gtqy 1 tablet by mouth every eight hours as needed for pain and painibuprofen 800 MG tablet Take 800 mg by mouth every 8 (eight) hours if needed for mild pain or moderate pain 02/27/2025 06/10/2025 DiscontinuedStart: 06-28-2024 End: 74-43-1544obxz 1 tablet by mouth every eight hours as needed for pain Ibuprofen 600 mg tablet Discontinued 600 MG PO Q8H as needed for pain June 28, 2024 12:00am February 18, 2025 6:15pmStart: 08-17-2023 End: 57-10-8326ptvw 1 tablet by mouth every six hours as needed for pain Ibuprofen 800 mg tablet Discontinued 800 MG PO Q6H as needed for pain August 17, 2023 1:00am June 27, 2024 10:19pmStart: 09-19-2017 End: 38-19-7447ujna 4 tablets by mouth every twenty-four hours for painIbuprofen 600 mg tablet Discontinued 600 MG PO Q8H as needed for pain September 19, 2017 1:00amOctober 2022 4:04pm do not exceed 4 doses in a 24 hour period iopamidol (ISOVUE-370) 76 % injection 75 mL (1 source)Start: 11-16-2024 End: 62-26-1856jxzp 1 dose intravenously once75 mL, IntraVENous, IMG ONCE PRN, 1 dose, Starting on 11/16/24 at 0134, Until 11/16/24 at 0153,Other1 ml ketorolac tromethamine 15 mg/ml cartridge (15 sources)Nonsteroidal Anti-inflammatory Drug, Cyclooxygenase InhibitorStart: 11-16-2024 End: 16-56-602473 mg, IntraVENous, ONCE, 1 dose, On 11/16/24 at 0115, Do not administer for more than 5 days.Start: 12-15-2021 End: 70-57-8722zjrz 1 tablet by mouth once dailykeTORolac (TORADOL) 10 mg tablet Take 10 mg by mouth once daily. 0 12/15/2021 08/20/2022 Discontinued (Course of therapy completed)Comment on above:Take 10 mg by mouth once daily.meclizine hydrochloride 12.5 mg oral tablet (4 sources)AntiemeticStart: 01-11-2025 End: 56-06-8855yqit 1 dose by mouth once25 mg, Oral, ONCE, 1 dose, On 01/11/25 at 1930, Send home with ptStart: 01-11-2025 End: 90-34-5952igsc 1 tablet by mouth three times daily as needed for dizziness meclizine (Antivert) 25 MG tablet Take 25 mg by mouth 3 (three) times a day as needed for eznxasguz97/05/2025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 resistance screening), cephalosporins, clindamycin, and trimethoprim-sulfamethoxazole are not effective clinically. (CLSI, C587-C83, 2016) Note: this isolate is vancomycin-susceptible. This information is provided for epidemiologic purposes only: vancomycin is not among the antibiotics recommended for therapy of urinary tract infections caused by Enterococcus. Greater than 100,000 colony forming units per mL Bacteria identified Cx Nom (U)Escherichia coliAbThe Hospital of Central Connecticut HealthcareComment on above:Cefazolin with an MAGALI <=16 predicts susceptibility to the oral agents cefaclor, cefdinir, cefpodoxime, cefprozil, cefuroxime, cephalexin, and loracarbef when used for therapy of uncomplicated urinary tract infections due to E. coli, Klebsiella pneumoniae, and Proteus mirabilis. 10,000-25,000 colony forming units per mL Other Antibiotic [Susc]Skyline Medical CenterComment on above: S = Susceptible; I = [...] Trimethoprim/Sulfa S Vancomycin S NOMS HealthcareUrine cultureon 99-49-5070Zigutrpv identified Cx Nom (U)Final reportAbMary Free Bed Rehabilitation Hospital PREG QUANT HCGon 13-50-2794DYS QUANTITATIVE 55145qEX/mLNOMS HealthcareComment on above:5-50 0.2-1 WEEK 50-500 1-2 WEEKS 100-5,000 2-3 WEEKS 500-10,000 3-4 WEEKS 1,000-50,000 4-5 WEEKS 10,000-100,000 5-6 WEEKS 15,000-200,000 6-8 WEEKS 10,000-100,000 2-3 [facility] PREG QUANT HCGon 77-55-9543GDH XQPAYJNATKSL0983 mIU/mLNOMS HealthcareComment on above:5-50 0.2-1 WEEK 50-500 1-2 WEEKS 100-5,000 2-3 WEEKS 500-10,000 3-4 WEEKS 1,000-50,000 4-5 WEEKS 10,000-100,000 5-6 WEEKS 15,000-200,000 6-8 WEEKS 10,000-100,000 2-3 MONTHS CLINCox NorthTBH PREG QUANT HCGon 04-30-1404LDR ERSHAAZIRGOL194qHW/mL [facility] HealthcareComment on above:5-50 0.2-1 WEEK 50-500 1-2 WEEKS 100-5,000 2-3 WEEKS 500-10,000 3-4 WEEKS 1,000-50,000 4-5 WEEKS 10,000-100,000 5-6 WEEKS 15,000-200,000 6-8 WEEKS 10,000-100,000 2-3 MONTHS CLINISYUnicoi County Memorial HospitalMETHYLENETETRAHYDROFOLATE REDUCTASE (MTHFR) THERMOLABILS on 50-87-9693Ezprzevzmzdfix and review of laboratory resultsCommentCameron Regional Medical CenterComment on above:Technical Component performed at [facility] Professional Component performed by: Rohit Caballero, PhD, [facility] [id number], [facility], [address] [place] [address] MTHFR gene targeted mutation analysis [facility] (Bld/Tiss)CommentNOCT HealthcareComment on above:Result: c.665C>T (p. [id number]), legacy name: C677T - Not Detected c.1286A>C (p. Kei062Fhd), legacy name: [id number] - Not Detected Interpretation: This result is [...] that can decrease enzyme activity; c.665C>T (p. Dwq986Otr), legacy name [id number], and c.1286A>C (p. Ppq977Lxg), legacy name [id number]. These variants do not independently increase risk [...] to limited evidence of clinical utility (PMID: 53903824). Comments: Genetic Coordinators are available for health care providers to discuss results at [phone] Test Details: Variants Analyzed: c.665C>T (p. Mwz916Zwp), legacy name: C677T and c.1286A>C (p. Mpx591Hdf), legacy name: [id number] Methods/Limitations: DNA analysis of the MTHFR gene [...] developed and its performance characteristics determined by [employer]. It has not been cleared or approved by the Food and Drug Administration. References: Adelakey SE, Coronel CJ, Kelsey HUFFMAN. ACMG Practice Guideline: lack of evidence for MTHFR polymorphism testing. Jennyfer Med. 2012;15(2):153-6. doi: 10.1038/gim.2012.165. Epub 2012Oct 11. PMID: 75995741. [place] [employer]stetricians and Gynecologists' Committee on Practice Bulletins-Obstetrics. ACOG Practice Bulletin No. 197: Inherited Thrombophilias in . Obstet Gynecol. 2018 Apr;132(1):e18-e34. doi: 10.1097/AOG.5976144197455147. Erratum in: Obstet Gynecol. 2018 Jul;132(4):1069. PMID: 21528434. Performed at: - [facility] [address] [facility], [facility], [place] [id number] Appliance Service Technician: Madyson Gillette [facility], Phone: [phone] [facility] Cultureon 95-26-8135Ireeihau identified Cx Nom (U)>100,000 colonies/ml mixed bacterial skin contaminants 2 Days PERFORMED BY: [address] [address] [employer]ICER ANNA KEENAN M.D.[facility] Physician GroupComment on above: Performed By: #### CUU #### [facility] [address] [id number] USAHCG-BETA, SERUMon 75-19-3895WKF.beta subunit Qn 5375 m[IU]/mLNormalPremier HealthComment on above:Order Comment: WEEKS (SINCE LMP) MIU/mL [...] nontrophoblastic neoplasms. Performed By: #### HCG #### [facility] ([address] [address] VIRHEMOGLOBIN AND HEMATOCRIT, BLOODon 96-20-3041Caezgzhzmd (Bld) [Volume fraction]36.1 %Zmetml03-91UfbXtdviz[address] [place], [place] [address]Comment on above:Performed By: #### HH #### [facility] ([address] [address] VIRHemoglobin (Bld) [Mass/Vol]12.5 g/wSAqwqqg37.7-15.5 Premier HealthCommunson healthcare [facility] on above:Performed By: #### HH #### [facility] ([address] [address] VIRCBC WITH AUTO DIFFERENTIALon 75-02-7240ZTYVHMSIT ABSOLUTE COUNT (10*3/UL) BY AUTOMATED COUNT0.1 10*3/uLNormal0.0-0.2ProMedica Sutter Coast HospitalComment on above:Performed By: #### CBCA #### [facility] ([address] [place] [address] VIRBASOPHILS RELATIVE PERCENT BY AUTOMATED COUNT0.7 %Normal Premier HealthComment on above:Performed By: #### CBCA #### [facility] ([address] [address] VIRCELLAVISION DIFFERENTIAL TYPEAUTOMATED DIFFERENTIALNormal Premier HealthComment on above:Performed By: #### CBCA #### [facility] ([address] [address] VIREosinophils (Bld) [#/Vol]0.0 10*3/uLNormal0.0-0.4Premier HealthComment on above:Performed By: #### CBCA #### [facility] ([address] [address] VIREOSINOPHILS RELATIVE PERCENT BY AUTOMATED COUNT0.5 %Normal Premier HealthComment on above:Performed By: #### CBCA #### [facility] ([address] [place] [address] VIRErythrocyte distribution width (RBC) [Ratio]13.2 %Normal 11.5-15ProBaylor Scott And White Medical Center – FriscoComment on above:Performed By: #### CBCA #### [facility] ([address] [place] [address] VIRHematocrit (Bld) [Volume fraction]43.1 %Awnvny46-40 Premier HealthComment on above:Performed By: #### CBCA #### [facility] ([address] [address] VIRHemoglobin (Bld) [Mass/Vol]14.6 g/sIAdyjfl01.7-15.5 Premier HealthComment on above:Performed By: #### CBCA #### [facility] ([address] [place] [address] VIRLYMPHOCYTES ABSOLUTE COUNT (10*3/UL) BY AUTOMATED COUNT1.7 10*3/uLNormal1.0-3.5PAshtabula County Medical CenterComment on above:Performed By: #### CBCA #### [facility] ([address] [address] VIRLYMPHOCYTES RELATIVE PERCENT BY AUTOMATED COUNT20.4 %Normal Premier HealthComment on above:Performed By: #### CBCA #### [facility] ([address] [address] VIRMCH (RBC) [Entitic mass]30.8 htThtmsz07-67DfmNxrrqdPremier HealthComment on above:Performed By: #### CBCA #### [facility] ([address] [place] [address] VIRMCHC (RBC) [Mass/Vol]33.8 g/lWOrscrh26-80BwsYoyahgPremier HealthComment on above:Performed By: #### CBCA #### [facility] ([address] [place] [address] VIRMCV (RBC) [Entitic vol]91 sEKlqszj68-597RqhJhlpmk Fremont HospitalComment on above:Performed By: #### CBCA #### [facility] ([address] [place] [address] VIRMONOCYTES ABSOLUTE COUNT (10*3/UL) BY AUTOMATED COUNT0.7 10*3/uLNormal0.0-0.9Premier HealthComment on above:Performed By: #### CBCA #### [facility] ([facility]) [address] [place] [address] [place] [address] VIRMONOCYTES RELATIVE PERCENT BY AUTOMATED COUNT8.1 %Normal Premier HealthComment on above:Performed By: #### CBCA #### [facility] ([address] [place] [address] VIRNEUTROPHILS ABSOLUTE COUNT BY AUTOMATED COUNT6.0 10*3/uL Normal1.5-6.6Premier HealthComment on above:Performed By: #### CBCA #### [facility] ([address] [place] [address] VIRNEUTROPHILS RELATIVE PERCENT BY AUTOMATED COUNT70.3 %Normal Premier HealthComment on above:Performed By: #### CBCA #### [facility] ([address] [place] [address] VIRPlatelet mean volume (Bld) [Entitic vol]8.1 fLNormal7-12 Premier HealthComment on above:Performed By: #### CBCA #### [facility] ([address] [place] [address] VIRPlatelets (Bld) [#/Vol]239 10*3/jZNakfbg499-729ApwQlusqf Fremont HospitalComment on above:Performed By: #### CBCA #### [facility] ([facility]) [address] [place] [address] [place] [address] VIRRBC COUNT4.72 X10E12/LNormal3.8-5.2ProMedica Sutter Coast HospitalComment on above:Performed By: #### CBCA #### [facility] ([address] [place] [address] VIRWBC (Bld) [#/Vol]8.6 10*3/uLNormal4-11[facility] HospitalComment on above:Performed By: #### CBCA #### [facility] ([facility]) [facility] [address] [place] [address] VIRCOMPREHENSIVE METABOLIC PANELon 82-82-3045Jepffny [Mass/Vol]4.5 g/dLNormal3.2-5.3PAshtabula County Medical CenterComment on above: Performed By: #### CMP #### [facility] ([place] [address] [place] [place] [address] VIRALP [Catalytic activity/Vol]67 U/KTufxgf57-632TmxZuzfsyBaylor Scott And White Medical Center – FriscoComment on above:Performed By: #### CMP #### [facility] ([address] [place] [address] VIRALT [Catalytic activity/Vol]27 U/LNormal<=31PAshtabula County Medical CenterComment on above:Performed By: #### CMP #### [facility] ([address] [place] [place] [address] VIRAnion gap [Moles/Vol]5 mmol/LNormal5-15ProBaylor Scott And White Medical Center – FriscoComment on above:Performed By: #### CMP #### [facility] ([address] [place] [place] [address] VIRAST [Catalytic activity/Vol]24 U/LNormal<=41ProBaylor Scott And White Medical Center – FriscoComment on above:Performed By: #### CMP #### [facility] ([place] [address] [place] [address] VIRBilirubin [Mass/Vol]2.0 mg/dLHigh0.3-1.2PAshtabula County Medical CenterComment on above:Performed By: #### CMP #### [facility] ([address] [place] [place] [address] VIRCalcium [Mass/Vol]8.8 mg/dLNormal8.5-10.5PHaxtun Hospital District HospitalComment on above:Performed By: #### CMP #### [facility] ([facility]) [address] [place] [address] VIRChloride [Moles/Vol]100 mmol/OWvvovc14-870NajQpivzrBaylor Scott And White Medical Center – FriscoComment on above:Performed By: #### CMP #### [facility] ([facility]) [address] [place], [place] [address] [place] [address] VIRCO2 [Moles/Vol]27 mmol/TIzvemv32-14HlvQrkwvw Sutter Coast HospitalComment on above:Performed By: #### CMP #### [facility] ([facility]) [address] [place] [address] [place] [address] VIRCreatinine [Mass/Vol]0.71 mg/dLNormal0.40-1.00ProBaylor Scott And White Medical Center – FriscoComment on above:Result Comment: METHOD TRACEABLE TO IDMS STANDARDPerformed By: #### CMP #### [facility] ([address] [place] [address] VIREGFR (CKD-EPI) NON-RACE DEPENDENT>^90Normal>=60ProBaylor Scott And White Medical Center – FriscoComment on above:Result Comment: eGFR not reported due to non- numeric value for Creatinine. Reported eGFR is based on the CKD-EPI 2021 equation that does not use a race coefficient.Performed By: #### CMP #### [facility] ([address] [place] [address] VIRGlucose [Mass/Vol]100 mg/bMGeot04-76WxqNoqznyBaylor Scott And White Medical Center – FriscoComment on above:Performed By: #### CMP #### [facility] ([address] [place] [address] VIRPotassium [Moles/Vol]3.4 mmol/LLow3.5-5.0ProBaylor Scott And White Medical Center – FriscoComment on above:Performed By: #### CMP #### [facility] ([address] [place] [address] VIRProtein [Mass/Vol]7.4 g/dLNormal6.0-8.0Premier HealthComment on above:Performed By: #### CMP #### [facility] ([address] [place] [address] VIRSodium [Moles/Vol]132 mmol/BBbj614-683VjrFskqzuBaylor Scott And White Medical Center – FriscoComment on above:Performed By: #### CMP #### [facility]Cas [facility] ([address] [address] VIRUrea nitrogen [Mass/Vol]12 mg/dLNormal5-23ProBaylor Scott And White Medical Center – FriscoComment on above:Performed By: #### CMP #### [facility]Cas [facility] ([address] [address] VIRHCG-BETA, SERUMon 75-47-0843[place] [address] m[IU]/mLNormalProBaylor Scott And White Medical Center – FriscoComment on above:Order Comment: WEEKS (SINCE LMP) MIU/mL [...] nontrophoblastic neoplasms. Performed By: #### HCG #### [facility] ([address] [address] VIRPOCT NURSING URINE MACROSCOPIC UAon 72-51-4560XNKYBBTBP EMILY NegativeNormalNegativeProBaylor Scott And White Medical Center – FriscoComment on above:Performed By: #### NUM #### [facility] ([address] [address] VIRBLOOD/HGB NURLargeAbnormalNegativePremier HealthComment on above:Performed By: #### NUM #### [facility] ([address] [address] VIRGLUCOSE NURNegativeNoalNegativePremier Health Comment on above:Performed By: #### NUM #### [facility] ([address] [address] VIRKETONES NUR15 mg/dLAbnormndNegativePremier HealthComment on above:Performed By: #### NUM #### [facility] ([address] [address] VIRLEUKOCYTE ESTERASE NURNegativeNormalNegativePremier HealthComment on above:Performed By: #### NUM #### [facility] ([address] [address] VIRNITRITE NURNegativeNoduke raleigh hospitalNegSumma Health Wadsworth - [facility] Comment on above:Performed By: #### NUM #### [facility] ([address] [address] VIRPH NUR6.0Lmuqao3.0, 6.0, 6.5, 7.0, 7.5, 8.0, 8.5, 5.5 Premier HealthComment on above:Performed By: #### NUM #### [facility] ([address] [address] VIRPROTEIN NURNegativeNoduke raleigh hospitalNegativePremier Health Comment on above:Performed By: #### NUM #### [facility] ([place]) [address] [place] [address] VIRSPECIFIC GRAVITY NUR1.883Ezbetd2.010, 1.015, 1.020, 1.025 Premier HealthComment on above:Performed By: #### NUM #### [facility] ([facility]) [address] [place] [address] VIRUROBILINOGEN NUR0.2 E.U./dLNormalPremier Health Comment on above:Performed By: #### NUM #### [facility] ([facility]) [address] [place] [address] VIRPOCT , URINE (NUCG)on 59-68-0458Gdni HCG ( test) Ql (U)PositiveAbnormalNegativePremier HealthComment on above:Performed By: #### NUCG #### [facility] ([facility]) [address] [place] [address] VIRURINE CULTUREon 04-84-3457Pquikliq identified Cx Nom (U) CULTURE RESULTS <10,000 ORGANISMS/mL NORMAL URO GENITAL FLORASt. Rita's Hospital Comment on above:Performed By: #### [id number] #### [facility] ([id number]) [address] [place] [address]PJ PREG LESS THAN 14 WKS FOR OVARIAN TORSION W/TV/DUPLEXon 69-56-7196JZ PREG LESS THAN 14 WKS FOR OVARIAN [...] by Yung Alonso MD on 02/26/2025 8:17 PMNormalPremier Health HCG, Quanton 42-26-9952TDR, Xrhsn6792.0 mIU/mLHigh<5[facility] Comment on above:Result Comment: Non-preg premeno <=5 Postmeno <=8 Male <=3 If HCG results do not concur with clinical observations, additional testing to confirm results is recommended.Performed By: #### BHCG #### [facility] [address] [place] [address] Appliance Service Technician: Caden Brown MDHCG, Quantitative, Pregnancyon 98-79-7205QKD.beta subunit Fo7653 m[IU]/mLHighNINFBon SecCrystal Clinic Orthopedic CenterComment on above: Non-preg premeno <=5 Postmeno <=8 Male <=3 If HCG results do not concur with clinical observations, additional testing to confirm results is recommended. Interpretation and review of laboratory resultsAbnormalValley Health Bon La [facility] HealthABO/RH Typeon 55-29-6768KGJ and Rh group Nom (Bld)Blood group A Rh(D) positiveNoAtrium Health Huntersville Physician GroupComment on above:Result Comment: PERFORMED BY: [place] [address] [employer]IC[employer] SHANITA MÁRQUEZ M.D.Alanine aminotransferase [Enzymatic activity/volume] in Serum or PlasmaOrdered By: Yaritza Bauer on 03-66-5896OBW [Catalytic activity/Vol]Alanine aminotransferase [Enzymatic activity/volume] in Serum or PlasmaUniversity Hospitals Health SystemALT [Catalytic activity/Vol]21 U/L NormalUniversity Hospitals Health SystemComment on above:Performed By: #### HEPATIC, BMP, PTT, LIPASE, PT, CBC #### [facility] [address] [place], [place] [address] USAAlbumin [Mass/volume] in Serum or Plasma by Bromocresol green (BCG) dye binding methoOrdered By: Yaritza Bauer on 36-30-5595Qlohsix BCG dye [Mass/Vol]Albumin [Mass/volume] in Serum or Plasma by Bromocresol green (BCG) dye binding metho3.5-5.7FNewark HospitalAlbumin BCG dye [Mass/Vol]4.3 g/dL3.5-5.7FNewark HospitalAlkaline phosphatase [Enzymatic activity/volume] in Serum or PlasmaOrdered By: Yaritza Bauer on 46-22-1812SKY [Catalytic activity/Vol]Alkaline phosphatase [Enzymatic activity/volume] in Serum or Jtxgnk52-631GippwerpzUniversity Hospitals Health SystemALP [Catalytic activity/Vol]58 U/HDgtmel46-398Altpdk[address] Comment on above:Performed By: #### HEPATIC, BMP, PTT, LIPASE, PT, CBC #### [facility] [address] [place] [address] USAAppearance of UrineOrdered By: Yaritza Bauer on 65-92-7657Wjvtjwpzoy (U)Urine appearanceCleNationwide Children's Hospital Appearance (U)ClearNormalClearUniversity Hospitals Health SystemComment on above: Order Comment: Name Collection Type:: Clean-Voided MidstreamPerformed By: #### HEPATIC, BMP, PTT, LIPASE, PT, CBC #### [facility] [address] [place] [address] USAAspartate aminotransferase [Enzymatic activity/volume] in Serum or PlasmaOrdered By: Yaritza Bauer on 54-36-7318GZF [Catalytic activity/Vol]Aspartate aminotransferase [Enzymatic activity/volume] in Serum or Toxwzz08-10MilntidkhUniversity Hospitals Health SystemAST [Catalytic activity/Vol]21 U/L Czouva22-56Sqbu[address] [place], [place] [address]Comment on above:Performed By: #### HEPATIC, BMP, PTT, LIPASE, PT, CBC #### [facility] [address] [place] [address] USABasic Metabolic Panelon 37-04-3369Qimtstgrrm Clr Calc Owddhsel948.28NoAtrium Health Huntersville Physician GroupComment on above:Performed By: #### HEPATIC, BMP, PTT, LIPASE, PT, CBC #### [facility] [address] [place] [address] USAGFR/1.73 sq M.predicted MDRD (S/P/Bld) [Vol rate/Area] mL/min/{1.73_m2}NormalThe [facility] Physician [facility] General HospitalComment on above:Performed By: #### HEPATIC, BMP, PTT, LIPASE, PT, CBC #### [facility] [address] [place] [address] USABasophils Auto (Bld) [#/Vol]Ordered By: Yaritza Bauer on 93-26-8838Fxbwggahr (Bld) [#/Vol]Automated basophil count0.0-0.2FNewark HospitalBasophils [#/volume] in Blood by Automated countOrdered By: Yaritza Bauer on 70-34-6368Aqpdlreeh (Bld) [#/Vol]0.1 10*3/uLNormal0.0-0.2 University Hospitals Health SystemComment on above:Result Comment: PERFORMED BY: [address] [place] [address] [employer] SHANITA MÁRQUEZ M.D.Performed By: #### HEPATIC, BMP, PTT, LIPASE, PT, CBC #### [place] [address] USABasophils/100 WBC Auto (Bld)Ordered By: Yaritza Bauer on 84-59-4850Qzlvtoxyb/100 WBC (Bld)Automated basophil %.University Hospitals Health SystemBasophils/100 leukocytes in Blood by Automated countOrdered By: Yaritza Bauer on 06-58-7774Jtxmgiubb/100 WBC (Bld)1.9 %Normal.University Hospitals Health SystemComment on above:Performed By: #### HEPATIC, BMP, PTT, LIPASE, PT, CBC #### [place] [address] USABilirubin Test strip Ql (U)Ordered By: Yaritza Bauer on 45-81-2763Aywjjnfwh Ql (U)Bilirubin.total [Presence] in Urine by Test strip NegativeUniversity Hospitals Health SystemBilirubin Ql (U)NegativeNegative University Hospitals Health SystemBilirubin.direct [Mass/volume] in Serum or PlasmaOrdered By: Yaritza Bauer on 19-04-0640Odjvudbke.direct [Mass/Vol] Bilirubin.direct [Mass/volume] in Serum or PlasmaHigh0.03-0.18FNewark HospitalBilirubin.direct [Mass/Vol]0.30 mg/dLHigh0.03-0.18FNewark HospitalBilirubin.total [Mass/volume] in Serum or PlasmaOrdered By: Yaritza Bauer on 61-33-7051Zgkbfnxtt [Mass/Vol]Bilirubin.total [Mass/volume] in Serum or PlasmaHigh0.3-1.0[facility] Bilirubin [Mass/Vol]1.1 mg/dLHigh0.3-1.0University Hospitals Health SystemComment on above:Performed By: #### HEPATIC, BMP, PTT, LIPASE, PT, CBC #### [address] [place] [address] USACalcium [Mass/volume] in Serum or PlasmaOrdered By: Yaritza Bauer on 95-34-7967Pgdbdbw [Mass/Vol]Calcium [Mass/volume] in Serum or Plasma8.6-10.3FNewark HospitalCalcium [Mass/Vol]9.2 mg/dL Normal8.6-10.3FNewark HospitalComment on above:Performed By: #### HEPATIC, BMP, PTT, LIPASE, PT, CBC #### [place] [id number] USACarbon dioxide, total [Moles/volume] in Serum or Plasma Ordered By: Yaritza Bauer on 09-77-5681DN1 [Moles/Vol]Carbon dioxide, total [Moles/volume] in Serum or Hgbkzd41.0-31.0University Hospitals Health SystemCO2 [Moles/Vol]27.9 mmol/HPnqvix02.0-31.0University Hospitals Health SystemComment on above:Performed By: #### HEPATIC, BMP, PTT, LIPASE, PT, CBC #### [facility] [address] [place], [place] [address] USAChlamydia/GC Amplificationon 82-53-4424Lssdlsevg Trachomotis, NAANegativeNormalNegativeThe Unc [facility]atham Physician GroupComment on above:Order Comment: SOURCE OF SPECIMEN: GenitalPerformed By: #### GCCHLAMAMP #### [facility] , #### FS #### [facility] [address] [place], [place] [address] USANeisseria Gonorrhoeae, NAANegativeNormalNegativeThe [facility] Chatham Physician GroupComment on above:Order Comment: SOURCE OF SPECIMEN: GenitalResult Comment: Performed at: =[facility] [id number] Appliance Service Technician: Barbie Mota MD, Phone: [phone] PERFORMED BY: [place] [address] [employer] SHANITA MÁRQUEZ M.D.Performed By: #### GCCHLAMAMP #### [facility] , #### FS #### [facility] [address] [place] [address] USAChloride [Moles/volume] in Serum or PlasmaOrdered By: Yaritza Bauer on 47-31-2210Kejkpdch [Moles/Vol]Chloride [Moles/volume] in Serum or Mdpczy88-316DkqtxrhwrUniversity Hospitals Health SystemChloride [Moles/Vol]104 mmol/KLtzxhy75-607KmlqqikntUniversity Hospitals Health SystemComment on above:Performed By: #### HEPATIC, BMP, PTT, LIPASE, PT, CBC #### [facility] [address] [place] [address] USAChoriogonadotropin.beta subunit [Units/volume] in Serum or PlasmaOrdered By: Yaritza Bauer on 25-81-4377MPH.beta subunit Qn Choriogonadotropin.beta subunit [Units/volume] in Serum or PlasmaUniversity Hospitals Health SystemComment on above:Approximate Approximate hCG Gestational Age Range (mIU/ml) (weeks)0.2-1 5-50 1-2 50-500 2-3 100-5,000 3-4 500-10,000 4-5 1,000-50,000 5-6 10,000-100,000 6-8 15,000-200,000 8-12 10,000-100,000HCG.beta subunit Qa7578.00 m[IU]/mLUniversity Hospitals Health SystemComment on above: Approximate Approximate hCG Gestational Age Range (mIU/ml) (weeks)0.2-1 5-50 1-2 50-500 2-3 100-5,000 3-4 500-10,000 4-5 1,000-50,000 5-6 10,000-100,000 6-8 15,000-200,000 8-12 10,000-100,000Color Auto (U)Ordered By: Yaritza Bauer on 92-17-4148Ohkhj (U)Color of Urine by AutoAvita Health System [facility] Color of Urine by AutoOrdered By: Yaritza Bauer on 08-69-1836Kllyo (U)Yellow NormalAvita Health System Galion HospitalComment on above:Order Comment: Name Collection Type:: Clean-Voided MidstreamPerformed By: #### HEPATIC, BMP, PTT, LIPASE, PT, CBC #### [place] [address] USAComplete Blood Count Auto Diffon 35-52-5785Sbaq Corpuscular HGB Conc33.7 g/dMAwzomw96.0-35.0The [facility]atham Physician GroupComment on above:Performed By: #### HEPATIC, BMP, PTT, LIPASE, PT, CBC #### [place] [address] USAMonocytes/100 WBC (Bld)22.50 %High0.00-20.00The [facility] Physician GroupComment on above:Result Comment: For adults in ED, MDW > 20.0 may be associated with a higher risk of sepsis during the first 12 hrs of hospital admissionPerformed By: #### HEPATIC, BMP, PTT, LIPASE, PT, CBC #### [place] [address] USANRBC%0.1 /100{WBC}Normal0-0.5[facility] Comment on above:Performed By: #### HEPATIC, BMP, PTT, LIPASE, PT, CBC #### [place] [address] USACreatinine [Mass/volume] in Serum or PlasmaOrdered By: Yaritza Bauer on 47-11-9384Ynpnfjppfq [Mass/Vol]Creatinine [Mass/volume] in Serum or Plasma0.60-1.20University Hospitals Health SystemCreatinine [Mass/Vol] 0.77 mg/dLNormal0.60-1.20University Hospitals Health SystemComment on above: Performed By: #### HEPATIC, BMP, PTT, LIPASE, PT, CBC #### [place] [address] USAEosinophils Auto (Bld) [#/Vol]Ordered By: Yaritza Bauer on 69-71-2559Tyzziegdbto (Bld) [#/Vol]Automated eosinophil count0.0-0.45 [facility] Hospitals Health SystemEosinophils [#/volume] in Blood by Automated countOrdered By: Yaritza Bauer on 76-08-1096Vjhejaggytw (Bld) [#/Vol]0.0 10*3/uLNormal0.0-0.45University Hospitals Health SystemComment on above:Performed By: #### HEPATIC, BMP, PTT, LIPASE, PT, CBC #### [facility] [address] [place] [address] USAEosinophils/100 WBC Auto (Bld)Ordered By: Yaritza Bauer on 77-29-1924Zvzylticlyo/100 WBC (Bld)Automated eosinophil %.[facility]als Health SystemEosinophils/100 leukocytes in Blood by Automated countOrdered By: Yaritza Bauer on 97-06-6402Cmorszvebvb/100 WBC (Bld)0.7 %Normal.[facility] Hospitals Health SystemComment on above:Performed By: #### HEPATIC, BMP, PTT, LIPASE, PT, CBC #### [facility] [address] [place] [id number] USAErythrocyte distribution width Auto (RBC) [Ratio]Ordered By: Yaritza Bauer on 73-66-5476Pmxfxhoquiv distribution width (RBC) [Ratio] Erythrocyte distribution width [Ratio] by Automated count11.9-15.3FNewark HospitalErythrocyte distribution width [Ratio] by Automated count Ordered By: Yaritza Bauer on 91-36-8295Wkggcbamszq distribution width (RBC) [Ratio]13.5 %Dbqlkn23.9-15.3FNewark HospitalComment on above: Performed By: #### HEPATIC, BMP, PTT, LIPASE, PT, CBC #### [facility] [address] [place] [id number] USAErythrocytes [#/volume] in Blood by Automated countOrdered By: Yaritza Bauer on 43-83-6695NBI (Bld) [#/Vol]4.56 10*6/uLNormal3.60-5.00 [facility]als Health SystemComment on above:Performed By: #### HEPATIC, BMP, PTT, LIPASE, PT, CBC #### [facility] [address] [place] [address] USAFungal Smearon 71-06-2732Gjxwmd SmearFungus Smear Results No Yeast Like Elements Seen Trichomonas Screen No Trichomonas Seen Trich Reference Reference range = None Seen PERFORMED BY: [facility] [address] [place] [id number] [employer] SHANITA MÁRQUEZ M.D.NormalBroward Health Imperial Point Physician GroupComment on above: Performed By: #### GCCHLAMAMP #### [facility] , #### FS #### [place] [id number] USAFungal smearOrdered By: Yaritza Bauer on 02-18-2025 Fungus identified Fungus stain Nom (Unsp spec)Fungal smearUniversity Hospitals Health SystemFungus identified Fungus stain Nom (Unsp spec)[facility] Hospitals Health SystemGlobulin Calc (S) [Mass/Vol]Ordered By: Yaritza Bauer on 49-85-2990Iubmgcub (S) [Mass/Vol]Serum globulin measurement by calculation (mass/volume)[facility] Hospitals Health SystemGlucose [Mass/volume] in Serum or PlasmaOrdered By: Yaritza Bauer on 45-56-4043Mgjsmhc [Mass/Vol]Glucose [Mass/volume] in Serum or Otgiun73-954GvliyjtipUniversity Hospitals Health SystemComment on above:ADA recommended reference rangeRandom Glucose Reference Range is dependent on time and content of last meal. Glucose of more than 200 mg/dL in a nonstressed, ambulatory subject supports the diagnosisof Diabetes Mellitus. Glucose [Mass/Vol]87 mg/aEKlopzi87-396SbvdxdspiUniversity Hospitals Health SystemComment on above:ADA recommended reference rangeRandom Glucose Reference Range is dependent on time and content of last meal. Glucose of more than 200 mg/dL in a nonstressed, ambulatory subject supports the diagnosisof Diabetes Mellitus. Result Comment: Random Glucose Reference Range is dependent on time and content of last meal. Glucose of more than 200 mg/dL in a nonstressed, ambulatory subject supports the diagnosis of Diabetes Mellitus. ADA recommended reference rangePerformed By: #### HEPATIC, BMP, PTT, LIPASE, PT, CBC #### [facility] [address] [place] [address] USAGlucose [Mass/volume] in Urine by Test stripOrdered By: Yaritza Bauer on 54-58-9986Xflvjtx Test strip (U) [Mass/Vol]Glucose [Mass/volume] in Urine by Test stripNoOhioHealth Hardin Memorial Hospital Glucose Test strip (U) [Mass/Vol]Normal mg/dLNoOhioHealth Hardin Memorial HospitalHCG ( test) IA.rapid Ql (U)Ordered By: Yaritza Bauer on 96-07-2825AZI ( test) Ql (U)Urine human chorionic gonadotropin (hCG) detection by immunoassayPremier Health Upper Valley Medical CenterHCG ( test) Ql (U)PositivePremier Health Upper Valley Medical CenterHCG,Quantitativeon 16-31-4261RKG,Jyxvuszeoldq7229.00 m[iU]/mLNCone Health Wesley Long Hospital Physician Group Comment on above:Result Comment: Approximate Approximate hCG Gestational Age Range (mIU/ml) (weeks) 0.2-1 5-50 1-2 50-500 2-3 100-5,000 3-4 500-10,000 4-5 1,000-50,000 5-6 10,000-100,000 6-8 15,000-200,000 8-12 10,000-100,000 PERFORMED BY: [place] [id number] [employer] SHANITA MÁRQUEZ M.D.Performed By: #### HEPATIC, BMP, PTT, LIPASE, PT, CBC #### [facility] [address] [place] [address] USAHCG,Urineon 96-76-5507Rtyv HCG ( test) Ql (U) PositiveBraxton County Memorial Hospital Physician GroupComment on above:Order Comment: Name Collection Type:: Clean-Voided MidstreamResult Comment: PERFORMED BY: [place] [address] [employer] SHANITA MÁRQUEZ M.D.Performed By: #### HEPATIC, BMP, PTT, LIPASE, PT, CBC #### [place] [address] USAHematocrit Auto (Bld) [Volume fraction]Ordered By: Yaritza Bauer on 59-85-3578Dvdxfijdgg (Bld) [Volume fraction]Hematocrit [Volume Fraction] of Blood by Automated count34.0-46.4FNewark HospitalHematocrit [Volume Fraction] of Blood by Automated countOrdered By: Yaritaz Bauer on 29-39-2013Iipvouuvjk (Bld) [Volume fraction]41.8 %Normal 34.0-46.4FNewark HospitalComment on above:Performed By: #### HEPATIC, BMP, PTT, LIPASE, PT, CBC #### [place] [address] USAHemoglobin Test strip Ql (U)Ordered By: Yaritza Bauer on 56-81-0351Wvawlodzkz Ql (U)Hemoglobin [Presence] in Urine by Test stripNegative [facility] Hospitals Health SystemHemoglobin Ql (U)NegativeNegativeUniversity Hospitals Health SystemHemoglobin [Mass/volume] in BloodOrdered By: Yaritza Bauer on 61-77-2351Eeunjubymu (Bld) [Mass/Vol]Hemoglobin [Mass/volume] in Blood 11.8-15.4FNewark HospitalHemoglobin (Bld) [Mass/Vol]14.1 g/dL Kxppgl60.8-15.4FNewark HospitalComment on above:Performed By: #### HEPATIC, BMP, PTT, LIPASE, PT, CBC #### [place] [address] USAHepatic Panelon 89-96-2103Cvdnark [Mass/Vol]4.3 g/dLNormal 3.5-5.7The [facility] Physician GroupComment on above:Performed By: #### HEPATIC, BMP, PTT, LIPASE, PT, CBC #### [place] [id number] USABilirubin,Indirect0.8 mg/dLNormalThe [facility] Health Chatham Physician GroupComment on above:Performed By: #### HEPATIC, BMP, PTT, LIPASE, PT, CBC #### [facility] [address] [place] [id number] USABilirubin.indirect [Mass/Vol]0.30 mg/dLHigh0.03-0.18[facility] Physician GroupComment on above:Performed By: #### HEPATIC, BMP, PTT, LIPASE, PT, CBC #### [facility] [address] [place] [id number] USAINR in Platelet poor plasma by Coagulation assayOrdered By: Yaritza Bauer on 39-85-7417WPE Coag (PPP) [Relative time]INR in Platelet poor plasma by Coagulation assayUniversity Hospitals Health SystemComment on above:INR Therapeutic Range A) Pre- and [...] 3 - 4.5INR Coag (PPP) [Relative time]1.1 {INR}NormalUniversity Hospitals Health SystemComment on above:INR Therapeutic Range A) Pre- and [...] heart valves: 3 - 4.5Performed By: #### HEPATIC, BMP, PTT, LIPASE, PT, CBC #### [facility] [address] [place] [address] USAKetones Test strip Ql (U)Ordered By: Yaritza Bauer on 63-35-5905Sspoktz Ql (U)Ketones [Presence] in Urine by Test stripNegative [facility] Hospitals Health SystemKetones [Presence] in Urine by Test strip Ordered By: Yaritza Bauer on 29-90-6760Kpnymvb Ql (U)NegativeNormalNegative [facility] Hospitals Health SystemComment on above:Order Comment: Name Collection Type:: Clean-Voided MidstreamPerformed By: #### HEPATIC, BMP, PTT, LIPASE, PT, CBC #### [facility] [address] [place] [address] USALaboratory - Microbiology and Antimicrobial susceptibility Ordered By: Yaritza Bauer on 02-18-2025. trachomatis DNA JANET+probe Ql (Unsp spec)NegativeNegKindred Hospital DaytonN. gonorrhoeae DNA JANET+probe Ql (Unsp spec)NegativeNegKindred Hospital DaytonComment on above:Performed at: = - [facility] [id number] Director: Barbie Mota MD, Phone: [phone] esterase [Presence] in Urine by Test stripOrdered By: Yaritza Bauer on 02-18-2025 Leukocyte esterase Test strip Ql (U)Leukocyte esterase [Presence] in Urine by Test stripNegKindred Hospital DaytonLeukocyte esterase Test strip Ql (U)NegativeNormalNegKindred Hospital DaytonComment on above: Order Comment: Name Collection Type:: Clean-Voided MidstreamPerformed By: #### HEPATIC, BMP, PTT, LIPASE, PT, CBC #### [facility] [address] [place] [address] USALeukocytes [#/volume] corrected for nucleated erythrocytes in Blood by Automated counOrdered By: Yaritza Bauer on 56-25-7495YFS corrected for nucl RBC Auto (Bld) [#/Vol]Leukocytes [#/volume] corrected for nucleated erythrocytes in Blood by Automated coun3.8-11.6FNewark HospitalWBC corrected for nucl RBC Auto (Bld) [#/Vol]5.2 10*3/uL3.8-11.6 [facility] Health SystemLeukocytes [#/volume] in Blood by Automated countOrdered By: Yaritza Bauer on 19-37-4413NWS (Bld) [#/Vol]5.2 10*3/uLNormal 3.8-11.6FNewark HospitalComment on above:Performed By: #### HEPATIC, BMP, PTT, LIPASE, PT, CBC #### [facility] [address] [place] [address] USALipase [Enzymatic activity/volume] in Serum or Plasma Ordered By: Yaritza Bauer on 07-32-1189Qdhwqh [Catalytic activity/Vol]Lipase [Enzymatic activity/volume] in Serum or Hfdbey62.0-82.0University Hospitals Health SystemLipase [Catalytic activity/Vol]22.0 U/ZItjbqb39.0-82.0[facility] Hospitals Health SystemComment on above:Result Comment: PERFORMED BY: [place] [id number] [employer] SHANITA MÁRQUEZ M.D.Performed By: #### HEPATIC, BMP, PTT, LIPASE, PT, CBC #### [address] [address] USALymphocytes Auto (Bld) [#/Vol]Ordered By: Yaritza Bauer on 79-02-7681Auptdpssbcf (Bld) [#/Vol]Lymphocytes [#/volume] in Blood by Automated count1.00-4.8University Hospitals Health SystemLymphocytes [#/volume] in Blood by Automated countOrdered By: Yaritza Bauer on 98-40-3733Cynhvgxvako (Bld) [#/Vol]1.6 10*3/uLNormal1.00-4.8[facility] Health SystemComment on above:Performed By: #### HEPATIC, BMP, PTT, LIPASE, PT, CBC #### [facility] [address] [place], [place] [id number] USALymphocytes/100 WBC Auto (Bld)Ordered By: Yaritza Bauer on 24-85-2663Kwdfdvqfucs/100 WBC (Bld)Lymphocytes/100 leukocytes in Blood by Automated count.[facility] Hospitals Health SystemLymphocytes/100 leukocytes in Blood by Automated countOrdered By: Yaritza Bauer on 76-16-1240Xgvtssadheo/100 WBC (Bld)30.2 %Normal.[facility]als Health SystemComment on above: Performed By: #### HEPATIC, BMP, PTT, LIPASE, PT, CBC #### [facility] [address] Auto (RBC) [Entitic mass]Ordered By: Yaritza Bauer on 96-51-2728FCK (RBC) [Entitic mass]MCH [Entitic mass] by Automated count 24.7-34.3FC[facility] [Entitic mass] by Automated count Ordered By: Yaritza Bauer on 90-56-0179SYT (RBC) [Entitic mass]30.9 pgNormal 24.7-34.3FNewark HospitalComment on above:Performed By: #### HEPATIC, BMP, PTT, LIPASE, PT, CBC #### [facility] [address] Auto (RBC) [Mass/Vol]Ordered By: Yaritza Bauer on 37-01-6377XLVQ (RBC) [Mass/Vol]MCHC [Mass/volume] by Automated count32.0-35.0 [facility] SystemHC (RBC) [Mass/Vol]33.7 g/dL32.0-35.0 [facility] Auto (RBC) [Entitic vol]Ordered By: Yaritza Bauer on 41-90-6332XXO (RBC) [Entitic vol]MCV [Entitic volume] by Automated -950XrpenoczxAvita Health SystemV [Entitic volume] by Automated countOrdered By: Yaritza Bauer on 32-79-9391ZDG (RBC) [Entitic vol] 91.6 fSBwcxcw67-631NecnufytxUniversity Hospitals Health SystemComment on above:Performed By: #### HEPATIC, BMP, PTT, LIPASE, PT, CBC #### [facility] [address] [place] [id number] USAMonocyte distribution width [Entitic volume] in Blood by AutomatedOrdered By: Yaritza Bauer on 00-65-2355Airnzawy distribution width Auto (Bld) [Entitic vol]Monocyte distribution width [Entitic volume] in Blood by AutomatedHigh0.00-20.00[facility] Health SystemComment on above:For adults in ED, MDW > 20.0 may be associated with a higher risk of sepsis during the first 12 hrs of hospital admissionMonocyte distribution width Auto (Bld) [Entitic vol]22.50 %High0.00-20.00[facility]als Health SystemComment on above:For adults in ED, MDW > 20.0 may be associated with a higher risk of sepsis during the first 12 hrs of hospital admissionMonocytes Auto (Bld) [#/Vol] Ordered By: Yaritza Bauer on 25-48-1679Bcpkjbdec (Bld) [#/Vol]Automated blood monocyte count0.0-0.8[facility] Hospitals Health SystemMonocytes [#/volume] in Blood by Automated countOrdered By: Yaritza Bauer on 38-66-4519Rxdeynbki (Bld) [#/Vol]0.3 10*3/uLNormal0.0-0.8[facility] Health SystemComment on above:Performed By: #### HEPATIC, BMP, PTT, LIPASE, PT, CBC #### [facility] [address] [place] [id number] USAMonocytes/100 WBC Auto (Bld)Ordered By: Yaritza Bauer on 22-63-1693Ibwsyjgkk/100 WBC (Bld)Automated monocyte %.[facility] Hospit[facility] Health SystemMonocytes/100 leukocytes in Blood by Automated countOrdered By: Yaritza Bauer on 80-49-3788Lhmrbjmfi/100 WBC (Bld)6.6 %Normal.[facility] Hospitals Health SystemComment on above:Performed By: #### HEPATIC, BMP, PTT, LIPASE, PT, CBC #### [facility] [address] [place] [id number] USANeutrophils Auto (Bld) [#/Vol]Ordered By: Yaritza Bauer on 25-01-0439Dhelrmffsky (Bld) [#/Vol]Neutrophils [#/volume] in Blood by Automated count1.8-7.7FNewark HospitalNeutrophils [#/volume] in Blood by Automated countOrdered By: Yaritza Bauer on 03-35-8412Yhxromjzbjw (Bld) [#/Vol]3.2 10*3/uLNormal1.8-7.7FNewark HospitalComment on above:Performed By: #### HEPATIC, BMP, PTT, LIPASE, PT, CBC #### [facility] [address] [place] [address] USANeutrophils/100 WBC Auto (Bld)Ordered By: Yaritza Bauer on 68-60-5722Tqbuoiyqawf/100 WBC (Bld)Automated neutrophil %.[facility] Hospitals Health SystemNeutrophils/100 leukocytes in Blood by Automated countOrdered By: Yaritza Bauer on 14-20-2337Mnraixqfbzj/100 WBC (Bld)60.6 %Normal.[facility] Hospitals Health SystemComment on above:Performed By: #### HEPATIC, BMP, PTT, LIPASE, PT, CBC #### [facility] [address] [place] [id number] USANitrite Test strip Ql (U)Ordered By: Yaritza Bauer on 47-29-9125Lhyzuot Ql (U)Nitrite [Presence] in Urine by Test stripNegative [facility] Health SystemNitrite Ql (U)NegativeNegativeUniversity Hospitals Health SystemNo Panel InformationOrdered By: Yaritza Bauer on 59-85-8377Wsptxrpad GFR (CKD-EPI)> 60.0 mL/MinUniversity Hospitals Health System Pharmacy Creatinine Clearance (Tpkv798.28[facility] Nucleated erythrocytes [Presence] in Blood by Automated countOrdered By: Yaritza Bauer on 36-28-4575Pbvrbzkxn RBC Auto Ql (Bld)Nucleated erythrocytes [Presence] in Blood by Automated count0-0.5FNewark Hospital Nucleated RBC Auto Ql (Bld)0.1 /100{WBC}0-0.5FNewark Hospital Partial Thromboplastin Timeon 27-60-0736gGGW Coag (Bld) [Time]29.3 sNormal 25.1-36.5The [facility]atham Physician GroupComment on above:Result Comment: A hematocrit value greater than 55% may lead to inaccurate results in coagulation testing. Patients having hematocrit values >55% require a special collection tube for coagulation studies. Please contact the laboratory at [phone] for redraw instructions. PERFORMED BY: [place] [address] [employer] SHANITA MÁRQUEZ M.D.Performed By: #### HEPATIC, BMP, PTT, LIPASE, PT, CBC #### [place] [address] USAPlatelet mean volume Auto (Bld) [Entitic vol]Ordered By: Yaritza Bauer on 10-57-7942Dwbbhbzg mean volume (Bld) [Entitic vol]Platelet mean volume [Entitic volume] in Blood by Automated count6.3-10.7FNewark HospitalPlatelet mean volume [Entitic volume] in Blood by Automated countOrdered By: Yaritza Bauer on 84-72-3367Bzxrduhu mean volume (Bld) [Entitic vol]8.0 fLNormal6.3-10.7FNewark HospitalComment on above:Performed By: #### HEPATIC, BMP, PTT, LIPASE, PT, CBC #### [facility] [address] [place] [address] USAPlatelets Auto (Bld) [#/Vol]Ordered By: Yaritza Bauer on 07-48-8564Wcoqadspi (Bld) [#/Vol]Platelets [#/volume] in Blood by Automated ciths189-217NbkloilhwUniversity Hospitals Health SystemPlatelets [#/volume] in Blood by Automated countOrdered By: Yaritza Bauer on 23-94-4483Wyyuzsbor (Bld) [#/Vol] 181 10*3/xNGglnsb685-669VglmrckemUniversity Hospitals Health SystemComment on above: Performed By: #### HEPATIC, BMP, PTT, LIPASE, PT, CBC #### [facility] [address] [place] [address] USAPotassium [Moles/volume] in Serum or PlasmaOrdered By: Yaritza Bauer on 01-03-3107Ongslvhri [Moles/Vol]Potassium [Moles/volume] in Serum or Plasma3.5-5.1FNewark HospitalPotassium [Moles/Vol]3.6 mmol/LNormal3.5-5.1FNewark HospitalComment on above:Performed By: #### HEPATIC, BMP, PTT, LIPASE, PT, CBC #### [facility] [address] [place] [address] USAProtein Test strip (U) [Mass/Vol]Ordered By: Yaritza Bauer on 14-51-5462Jtrbbyc (U) [Mass/Vol]Protein [Mass/volume] in Urine by Test stripNegativeUniversity Hospitals Health SystemProtein (U) [Mass/Vol]Negative NegativeUniversity Hospitals Health SystemProtein [Mass/volume] in Serum or PlasmaOrdered By: Yaritza Bauer on 58-89-5770Tpnzyys [Mass/Vol]Protein [Mass/volume] in Serum or Plasma6.4-8.9[facility] Hospitals Health SystemProtein [Mass/Vol]6.7 g/dLNormal6.4-8.9[facility] Health SystemComment on above:Performed By: #### HEPATIC, BMP, PTT, LIPASE, PT, CBC #### [facility] [address] [place] [address] USAProthrombin time (PT)Ordered By: Yaritza Bauer on 77-65-5189MX Coag (PPP) [Time]Prothrombin time (PT)9.0-12.9[facility] Health SystemComment on above:A hematocrit value greater than 55% may lead to inaccurate results in coagulation testing. Patientshaving hematocrit values >55% require a special collection tube for coagulation studies. Please contact the laboratory at [phone] for redraw instructions.PT Coag (PPP) [Time]12.3 s Normal9.0-12.9[facility] Hospitals Health SystemComment on above:A hematocrit value greater than 55% may lead to inaccurate results in coagulation testing. Patientshaving hematocrit values >55% require a special collection tube for coagulation studies. Please contact the laboratory at [phone] for redraw instructions.Result Comment: A hematocrit value greater than 55% may lead to inaccurate results in coagulation testing. Patients having hematocrit values >55% require a special collection tube for coagulation studies. Please contact the laboratory at [phone] for redraw instructions.Performed By: #### HEPATIC, BMP, PTT, LIPASE, PT, CBC #### [facility] [address] [place] [address] USARBC Auto (Bld) [#/Vol]Ordered By: Yaritza Bauer on 35-26-0627PEV (Bld) [#/Vol]Erythrocytes [#/volume] in Blood by Automated count 3.60-5.00[facility] Medical Centererum globulin measurement by calculation (mass/volume)Ordered By: Yaritza Bauer on 10-78-0341Woqxucet (S) [Mass/Vol]2.4 g/dLNormalUniversity Hospitals Health SystemComment on above: Performed By: #### HEPATIC, BMP, PTT, LIPASE, PT, CBC #### [facility] [address] [place] [address] USASerum or plasma albumin/globulin mass ratioOrdered By: Yaritza Bauer on 63-34-0548Anylnlj/Globulin [Mass ratio]Serum or plasma albumin/globulin mass ratioUniversity Hospitals Health SystemAlbumin/Globulin [Mass ratio]1.8 {ratio}NormalUniversity Hospitals Health SystemComment on above: Performed By: #### HEPATIC, BMP, PTT, LIPASE, PT, CBC #### [facility] [address] [place] [address] USASerum or plasma anion gap determinationOrdered By: Yaritza Bauer on 32-01-9042Megux gap [Moles/Vol]Serum or plasma anion gap determination6.0-15.0[facility] Hospit[facility] Health SystemAnion gap [Moles/Vol]8.7 mmol/LNormal6.0-15.0[facility] Health SystemComment on above:Performed By: #### HEPATIC, BMP, PTT, LIPASE, PT, CBC #### [facility] [address] [place] [address] USASerum or plasma non-glucuronidated bilirubin measurement (mass/volume)Ordered By: Yaritza Bauer on 60-25-1227Hjnvyughn.indirect [Mass/Vol]Serum or plasma non-glucuronidated bilirubin measurement (mass/volume) [facility] Hospit[facility] Health SystemBilirubin.indirect [Mass/Vol]0.8 mg/dLUniversity Hospitals Geauga Medical Centerodium [Moles/volume] in Serum or PlasmaOrdered By: Yaritza Bauer on 08-73-4230Vcbmne [Moles/Vol]Sodium [Moles/volume] in Serum or Pvjyra311-304BepcgczwqUniversity Hospitals Geauga Medical Centerodium [Moles/Vol]137 mmol/L Iecqri697-493YyskunzjvUniversity Hospitals Health SystemComment on above:Performed By: #### HEPATIC, BMP, PTT, LIPASE, PT, CBC #### [facility] [address] [place] [address] USASpecific gravity Test strip (U) [Rel density]Ordered By: Yaritza Bauer on 38-24-7017Mqmnqmzo gravity (U) [Rel density]Specific gravity of Urine by Test strip1.001-1.030University Hospitals Geauga Medical Centerpecific gravity (U) [Rel density]1.0211.001-1.030[facility] Trichomonas vaginalis detection by wet preparationOrdered By: Yaritza Bauer on 02-18-2025T. vaginalis Wet prep Ql (Unsp spec)Trichomonas vaginalis detection by wet preparationUniversity Hospitals Health SystemT. vaginalis Wet prep Ql (Unsp spec)[facility]als Health SystemUS OB transvaginalon [id number] OB transvaginalKETTERING [facility] Main [place] [address] [place], [place] [id number] Ultrasound Report Signed Patient: Charis Allen MR#: [id number] : 2000 Acct:[id number] Age/Sex: 24 / F ADM Date: 02/18/25 Loc: ER Room: Type: [facility] ER Attending Dr: Ordering Provider: Yaritza Bauer APRN Date of Service: 02/18/25 US/US OB <= 14 weeks fetus: Abdominal Pain ([id number]) US/US OB transvaginal: R/O ECTOPIC Copies to: [...] Camacho M.D. 02/18/2025 8:45 PM Dictation Location: [facility]idodiciMERGED WITH [facility] Tech: Roselia Cueva Transcribed By: REMINGTON 02/18/252044 Dictated By: Michael Camacho DO 02/18/252034 Signed By: 02/18/252044[facility] Physician Forrest General HospitalUrea nitrogen [Mass/volume] in Serum or PlasmaOrdered By: Yaritza Bauer on 24-80-6087Yyfk nitrogen [Mass/Vol] Urea nitrogen [Mass/volume] in Serum or Plasma05-02[facility] SystemUrea nitrogen [Mass/Vol]13 mg/dLNormal05-02[facility] Health SystemComment on above:Performed By: #### HEPATIC, BMP, PTT, LIPASE, PT, CBC #### [facility] [address] [place] [address] USAUrinalysison 61-12-2057Ufhuikevw,UrineNegativeNormal NegativeThe [facility] Physician [facility] HospitalComment on above:Order Comment: Name Collection Type:: Clean-Voided MidstreamPerformed By: #### HEPATIC, BMP, PTT, LIPASE, PT, CBC #### [place] [address] USAGlucose Ql (U)NormalNormalNormNortheast Florida State Hospital Physician GroupComment on above:Order Comment: Name Collection Type:: Clean-Voided MidstreamPerformed By: #### HEPATIC, BMP, PTT, LIPASE, PT, CBC #### [place] [address] USANitrite,UrineNegativeNormalNegativeBroward Health Imperial Point Physician GroupComment on above:Order Comment: Name Collection Type:: Clean-Voided MidstreamPerformed By: #### HEPATIC, BMP, PTT, LIPASE, PT, CBC #### [place] [address] USAOccult Blood,UrineNegativeNormalNegativeBroward Health Imperial Point Physician GroupComment on above:Order Comment: Name Collection Type:: Clean- Voided MidstreamPerformed By: #### HEPATIC, BMP, PTT, LIPASE, PT, CBC #### [place] [address] USAProtein,UrineNegativeNormalNegativeBroward Health Imperial Point Physician GroupComment on above:Order Comment: Name Collection Type:: Clean-Voided MidstreamPerformed By: #### HEPATIC, BMP, PTT, LIPASE, PT, CBC #### [place] [address] USASpecificy Beaver,Urine1.104Thkumu0.001-1.030[facility] Physician GroupComment on above:Order Comment: Name Collection Type:: Clean- Voided MidstreamPerformed By: #### HEPATIC, BMP, PTT, LIPASE, PT, CBC #### [place] [address] USAUrobilinogen,UrineNormalNormalNormNortheast Florida State Hospital Physician GroupComment on above:Order Comment: Name Collection Type:: Clean- Voided MidstreamPerformed By: #### HEPATIC, BMP, PTT, LIPASE, PT, CBC #### [place] [address] USAUrobilinogen Test strip (U) [Mass/Vol]Ordered By: Yaritza Bauer on 72-73-7077Cxxagaoxiimv (U) [Mass/Vol]Urobilinogen [Mass/volume] in Urine by Test stripNoOhioHealth Hardin Memorial HospitalUrobilinogen (U) [Mass/Vol]Normal mg/dLNoOhioHealth Hardin Memorial HospitalWBC Auto (Bld) [#/Vol]Ordered By: Yaritza Bauer on 07-63-5214ICM (Bld) [#/Vol]Leukocytes [#/volume] in Blood by Automated count3.8-11.6FNewark Hospital aPTT in Platelet poor plasma by Coagulation assayOrdered By: Yaritza Bauer on 30-66-9343wADA Coag (PPP) [Time]Activated partial thromboplastin time (aPTT) in platelet poor plasma by coagulation a25.1-36.5FNewark Hospital Comment on above:A hematocrit value greater than 55% may lead to inaccurate results in coagulation testing. Patientshaving hematocrit values >55% require a special collection tube for coagulation studies. Please contact the laboratory at [phone] for redraw instructions.aPTT Coag (PPP) [Time]29.3 s25.1-36.5 [facility]als Health SystemComment on above:A hematocrit value greater than 55% may lead to inaccurate results in coagulation testing. Patientshaving hematocrit values >55% require a special collection tube for coagulation studies. Please contact the laboratory at [phone] for redraw instructions. pH Test strip (U)Ordered By: Yaritza Bauer on 31-70-8461bO (U)pH of Urine by Test strip5.0-9.0[facility] Hospitals Health SystempH of Urine by Test strip Ordered By: Yaritza Bauer on 80-64-8473mY (U)6.5 [pH]Normal5.0-9.0[facility]als Health SystemComment on above:Order Comment: Name Collection Type:: Clean-Voided MidstreamPerformed By: #### HEPATIC, BMP, PTT, LIPASE, PT, CBC #### [place] [address] USACBC with Auto Differentialon 61-82-4661Gybeypopu (Bld) [#/Vol]0.03 10*3/uLBon Secours Ashtabula County Medical CenterBasophils/100 WBC (Bld)1 %0 - 2 %Bon SecCrystal Clinic Orthopedic CenterEosinophils (Bld) [#/Vol]0.03 10*3/uLBon Secours Ashtabula County Medical CenterEosinophils/100 WBC (Bld)1 %0 - 5 %Bon [facility] Medical CenterErythrocyte distribution width (RBC) [Ratio]12.1 %12.1 - 15.2 %[facility] Hematocrit (Bld) [Volume fraction]40.6 %36.0 - 46.0 %Bon [facility] Hemoglobin (Bld) [Mass/Vol]13.9 g/dL12.0 - 16.0 g/dLBon SecCrystal Clinic Orthopedic Center Immature granulocytes (Bld) [#/Vol]0 10*3/uLBon Secours Ashtabula County Medical CenterImmature granulocytes/100 WBC (Bld)0 %0 - 5 %[facility] HealthInterpretation and review of laboratory resultsAbnormalBon SecCrystal Clinic Orthopedic CenterLymphocytes/100 WBC (Bld)30 %15 - 40 %[facility] HealthLymphocytes/100 WBC (Bld)1.94 %[facility] Women's HospitalH (RBC) [Entitic mass]31.3 pg26.0 - 34.0 pgBon [facility] Hospital - YoungstownHC (RBC) [Mass/Vol]34.2 g/dL31.0 - 37.0 g/dLBon SecCrystal Clinic Orthopedic CenterMCV (RBC) [Entitic vol]91.4 fL80.0 - 100.[address] [facility] Monocytes/100 WBC (Bld)9 %High4 - 8 %[facility] HealthMonocytes/100 WBC (Bld)0.59 %[facility] HealthNeutrophils/100 WBC (Bld)59 %47 - 75 %[facility] HealthPlatelet mean volume (Bld) [Entitic vol]9.8 fL6.0 - 12.0 fL Bon SecOchsner Medical Center HealthPlatelets (Bld) [#/Vol]202 10*3/uLBon Secours Ashtabula County Medical CenterRBC (Bld) [#/Vol]4.44 10*6/uL4.00 - 5.20 m/uLBon [facility] Segmented neutrophils/100 WBC (Bld)3.92 %Bon [facility] Medical CenterWBC other (Bld) [#/Vol]6.5Bon [facility] Medical CenterBon [facility] Medical CenterCBC with Diffon 31-73-8135Sum. Basophil0.03 k/uLNormal0.00-0.20[facility] HospitalComment on above:Performed By: #### CDP, HCG, CP #### [facility] [address] [place] [address] Appliance Service Technician: MDAbs. AleImm.Granulocyte0.00 k/uLNormal0.00-0.30[facility] FoundationComment on above:Performed By: #### TACHO HCG, CP #### [facility] [address] [place] [address] Appliance Service Technician: Gaye Aguilera.Neutrophil (Seg)3.92 k/uLNormal2.5-7.0[facility] FoundationComment on above:Performed By: #### CDP, HCG, CP #### [facility] [address] [place] [address] Appliance Service Technician: Caden Brown MDBasophils/100 WBC (Bld)1 %Normal0-2MPremier Health Miami Valley HospitalComment on above:Performed By: #### CDP, HCG, CP #### [facility] [address] [place] [address] Appliance Service Technician: Caden Brown MDEosinophils (Bld) [#/Vol]0.03 10*3/uLNormal 0.00-0.40[facility] FoundationComment on above:Performed By: #### CDP, HCG, CP #### [facility] [address] [place] [id number] Appliance Service Technician: GABRIEL Aguileraosinophils/100 WBC (Bld)1 %Normal0-5[facility] FoundationComment on above:Performed By: #### CDP, HCG, CP #### [facility] [address] [place] [address] Appliance Service Technician: Caden Brown MDErythrocyte distribution width (RBC) [Ratio]12.1 % Hjnmnf89.1-15.2MPremier Health Miami Valley HospitalComment on above:Performed By: #### CDP, HCG, CP #### [facility] [address] [place] [address] Appliance Service Technician: Caden Brown MDHematocrit (Bld) [Volume fraction]40.6 %Normal 36.0-46.0[facility] FoundationCommunson healthcare [facility] on above:Performed By: #### CDP, HCG, CP #### [facility] [address] [place] [address] Appliance Service Technician: Caden Brown MDHemoglobin (Bld) [Mass/Vol]13.9 g/dLNormal 12.0-16.0[facility] FoundationComment on above:Performed By: #### CDP, HCG, CP #### [facility] [address] [place] [address] Appliance Service Technician: Caden Brown MDImmature granulocytes/100 WBC (Bld)0 %Normal0-5 [facility] FoundationComment on above:Performed By: #### CDP, HCG, CP #### [facility] [address] [place] [address] Appliance Service Technician: Caden Brown MDLymphocytes (Bld) [#/Vol]1.94 10*3/uLNormal 1.00-4.80[facility] FoundationCommunson healthcare [facility]le[facility] on above:Performed By: #### CDP, HCG, CP #### [facility] [address] [place] [id number] Appliance Service Technician: Tyrese Aguileramphocytes/100 WBC (Bld)30 %Qsnvgk99-49ExlshCleveland Clinic FoundationComment on above:Performed By: #### CDP, HCG, CP #### [facility] [address] [place], [place] [id number] Appliance Service Technician: SANDRA AguileraCH (RBC) [Entitic mass]31.3 amHtkfdk34.0-34.0 [facility] FoundationComment on above:Performed By: #### CDP, HCG, CP #### [facility] [address] [place] [phone] Appliance Service Technician: CARLOS AguileraC (RBC) [Mass/Vol]34.2 g/uTBsygll42.0-37.0[facility] FoundationComment on above:Performed By: #### CDP, HCG, CP #### [facility] [address] [place] [address] Appliance Service Technician: SANDRA AguileraCV (RBC) [Entitic vol]91.4 xMNcsopt94.0-100.0 Memorial Hospitalment on above:Performed By: #### CDP, HCG, CP #### [facility] [address] [place] [address] Appliance Service Technician: SANDRA Aguileraonocytes (Bld) [#/Vol]0.59 10*3/uLNormal0.00-1.00 [facility] on above:Performed By: #### CDP, HCG, CP #### [facility] [address] [place] [address] Appliance Service Technician: SANDRA Aguileraonocytes/100 WBC (Bld)9 %High4-8[facility] FoundationComment on above:Performed By: #### CDP, HCG, CP #### [facility] [address] [place] [phone] Appliance Service Technician: Ana Aguilera (Seg)59 %Bcfxvi78-95JvhbfCleveland Clinic FoundationComment on above:Performed By: #### CDP, HCG, CP #### [facility] [address] [place], [place] [id number] Appliance Service Technician: Darrel Aguilera mean volume (Bld) [Entitic vol]9.8 fL Normal6.0-12.0[facility] FoundationComment on above:Performed By: #### CDP, HCG, CP #### [facility] [address] [place], [place] [id number] Appliance Service Technician: Althea Aguilera (Bld) [#/Vol]202 10*3/zNFykyoe517-236 [facility] FoundationComment on above:Performed By: #### TACHO, HCG, CP #### [facility] [address] [place] [address] Appliance Service Technician: ROGERIO Aguilera (Bld) [#/Vol]4.44 10*6/uLNormal4.00-5.20[facility] FoundationComment on above:Performed By: #### TACHO, HCG, CP #### [facility] [address] [place] [address] Appliance Service Technician: KEVIN Aguilera (Bld) [#/Vol]6.5 10*3/uLNormal3.5-11.0[facility] FoundationComment on above:Performed By: #### CDP, HCG, CP #### [facility] [address] [place], [place] [address] Appliance Service Technician: Finn Aguilera [phone] [Mass/Vol]4.5 g/dL3.5 - 5.2 g/dLBon [facility] Medical CenterAlbumin/Globulin [Mass ratio]1.9 {ratio}1.0 - 2.5Bon [facility] Medical CenterALP [Catalytic activity/Vol]78 U/L35 - 104 U/LBon [facility]ours [facility] Medical Centery HealthALT [Catalytic activity/Vol]22 U/L5 - 33 U/LBon [facility] Medical Centery [facility] – The Jewish HospitalAnion gap [Moles/Vol]10 mmol/L9 - 17 mmol/LBon [facility] Medical Centery Health AST [Catalytic activity/Vol]26 U/LNINF - 32 U/LBon [facility] Centery HealthBilirubin [Mass/Vol]1 mg/dL0.3 - 1.2 mg/dLBon Secours [facility] Centery HealthCalcium [Mass/Vol]9.2 mg/dL8.6 - 10.4 mg/dLBon [facility] Centery HealthChloride [Moles/Vol]102 mmol/L98 - 107 mmol/LBon [facility] Centery HealthCO2 [Moles/Vol]26 mmol/L20 - 31 mmol/LBon [facility] HealthCreatinine [Mass/Vol]0.8 mg/dL0.5 - 0.9 mg/dLBon [facility] HealthEst, Glom Filt Rate- PINFBon [facility] Medical CenterComment on above: These results are not intended [...] secretion. Glucose [Mass/Vol]90 mg/dL70 - 99 mg/dLBon [facility] Medical CenterInterpretation and review of laboratory resultsAbnormalBon [facility] Medical CenterPotassium [Moles/Vol]3.5 mmol/LLow3.7 - 5.3 mmol/LBon [facility] HealthProtein [Mass/Vol]6.9 g/dL6.4 - 8.3 g/dLBon Secours Ashtabula County Medical CenterSodium [Moles/Vol]138 mmol/L135 - 144 mmol/LBon [facility] HealthUrea nitrogen [Mass/Vol]9 mg/dL6 - 20 mg/dLBon [facility] HealthBon SecCrystal Clinic Orthopedic CenterComp Metabolic Profon 37-18-6413Axobuwd [Mass/Vol]4.5 g/dLNormal3.5-5.2MPremier Health Miami Valley HospitalComment on above:Performed By: #### CDP, HCG, CP #### [facility] [address] [place] [address] Appliance Service Technician: Caden Brown MDAlbumin/Glob Ratio1.5Lzcnpd4.0-2.5[facility] on above:Performed By: #### CDP, HCG, CP #### [facility] [address] [place] [address] Appliance Service Technician: Seema Aguilerakaline Phos78 U/QZpoexx08-852SpxcvParkview Health Montpelier Hospital on above:Performed By: #### CDP, HCG, CP #### [facility] [address] [place] [address] Appliance Service Technician: Caden Brown MDALT [Catalytic activity/Vol]22 U/LNormal5-33[facility] on above:Performed By: #### CDP, HCG, CP #### [facility] [address] [place] [id number] Appliance Service Technician: Chad Aguilera gap [Moles/Vol]10 mmol/LNormal9-17[facility] on above:Performed By: #### CDP, HCG, CP #### [facility] [address] [place] [address] Appliance Service Technician: Caden Brown MDAST [Catalytic activity/Vol]26 U/LNormal<32[facility] FoundationCommunson healthcare [facility] on above:Performed By: #### CDP, HCG, CP #### [facility] [address] [place] [id number] Appliance Service Technician: Caden Brown MDBilirubin [Mass/Vol]1.0 mg/dLNormal0.3-1.2MPremier Health Miami Valley HospitalComment on above:Performed By: #### CDP, HCG, CP #### [facility] [address] [place] [id number] Appliance Service Technician: MARCO Aguileraalcium [Mass/Vol]9.2 mg/dLNormal8.6-10.4[facility] on above:Performed By: #### CDP, HCG, CP #### [facility] [address] [place] [id number] Appliance Service Technician: MARCO Aguilerahloride [Moles/Vol]102 mmol/ALwenbo03-868QpwfxCleveland Clinic FoundationCommunson healthcare [facility] hospital on above:Performed By: #### TACHO, HCG, CP #### [facility] [address] [place] [address] Appliance Service Technician: MARCO AguileraO2 [Moles/Vol]26 mmol/VWewiiv33-17MglufCleveland Clinic FoundationComment on above:Performed By: #### TACHO HCG, CP #### [facility] [address] [place] [address] Appliance Service Technician: MARCO Aguilerareatinine [Mass/Vol]0.8 mg/dLNormal0.5-0.9[facility] on above:Performed By: #### TACHO, HCG, CP #### [facility] [address] [place] [phone] Appliance Service Technician: Caden Brown MDGFR/1.73 sq M.predicted among non-blacks MDRD (S/P/Bld) [Vol rate/Area]mL/min/{1.73_m2}Normal>60[facility] FoundationCommunson healthcare [facility] on above:Result Comment: These results are [...] secretion.Performed By: #### CDP, HCG, CP #### [facility] [address] [place] [address] Appliance Service Technician: Caden Brown MDGlucose [Mass/Vol]90 mg/vVJdzyab83-14ScpdwPremier Health Miami Valley HospitalComment on above:Performed By: #### CDP, HCG, CP #### [facility] [address] [place] [address] Appliance Service Technician: MIR Aguilreaotassium [Moles/Vol]3.5 mmol/LLow3.7-5.3MPremier Health Miami Valley HospitalComment on above:Performed By: #### CDP, HCG, CP #### [facility] [address] [place] [address] Appliance Service Technician: Caden Brown MDProtein [Mass/Vol]6.9 g/dLNormal6.4-8.3MPremier Health Miami Valley HospitalComment on above:Performed By: #### CDP, HCG, CP #### [facility] [address] [place] [address] Appliance Service Technician: JOSUÉ Aguileraodium [Moles/Vol]138 mmol/AWfteto855-754YlhznCleveland Clinic FoundationCommunson healthcare [facility]le[facility] hospital on above:Performed By: #### CDP, HCG, CP #### [facility] [address] [place] [address] Appliance Service Technician: Caden Brown MDUrea nitrogen [Mass/Vol]9 mg/dLNormal6-20[facility] FoundationComment on above:Performed By: #### CDP, HCG, CP #### [facility] [address] [place] [address] Appliance Service Technician: Caden Brown MDGlucose, Whole Bloodon 16-09-0992Vpiwava [Mass/Vol]108 mg/wTLqwo49 - 99 mg/dLBon [facility] Medical CenterInterpretation and review of laboratory resultsAbnormalBon [facility]ty HospitalGlucose,Whole Bloodon 33-73-2010Djvbqsm [Mass/Vol]108 mg/zHBnyt18-36Tlxct Alliance HospitalHCG Qualitative, Serumon 24-11-4066IXB ( test) Ql NegativeNEGATIVEBon [facility] on above:Specimens with hCG levels near the threshold of the test (25 mIU/mL) may give a negative or indeterminate result. In such cases, another test should be performed with a new specimen in 48-72 hours. If early is suspected clinically in this setting, correlation with quantitative serum b-hCG level is suggested. [facility] has confirmed the use of plasma for this test. This has not been cleared or approved by the U.S. Food and Drug Administration. The FDA has determined that such clearance is not necessary. [facility] HealthHCG Screen, Bloodon 33-24-1812BIS Screen, BloodNegative NormalNEGMercy Claiborne County Medical Center on above:Result Comment: Specimens with hCG levels near the threshold of the test (25 mIU/mL) may give a negative or indeterminate result. In such cases, another test should be performed with a new specimen in 48-72 hours. If early is suspected clinically in this setting, correlation with quantitative serum b-hCG level is suggested. [facility] has confirmed the use of plasma for this test. This has not been cleared or approved by the U.S. Food and Drug Administration. The FDA has determined that such clearance is not necessary.Performed By: #### CDP, HCG, CP #### [facility] [address] [place] [address] Appliance Service Technician: Caden Brown MDDiane.beta subunit IA 3rd IS Qnon 43-07-9639QUE.beta subunit Qn384 m[IU]/mLNormalProNorwalk Memorial Hospitalca [facility] HospitalCommunson healthcare [facility] on above:Result Comment: NEW REFERENCE RANGE [...] trophoblastic or nontrophoblastic neoplasms. Performed By: #### [id number] #### [facility] ([id number]) [address] [place] [address] 43387TZEFLAVBWQll 37-42-2830Mzntxpiqi Ql (U)NegativeNormalNEG [facility] HospitalComment on above:Performed By: #### UA #### [facility] ([id number]) [address] [place] [address] 49030IJJXV/HGBLargeAbnormalNEGProBaylor Scott And White Medical Center – FriscoComment on above:Performed By: #### UA #### [facility] ([id number]) [address] [place] [address] 86238Lgdhe (U)YELLOWNormalYELLOWPremier HealthComment on above:Performed By: #### UA #### [facility] ([id number]) [address] [place] [address] 49216Bbfnslr Ql (U)NegativeNormalNEGPremier Health Comment on above:Performed By: #### UA #### [facility] ([id number]) [address] [place] [address] 39340Bfhsojx Ql (U)NegativeNormalNEGPremier Health Comment on above:Performed By: #### UA #### [facility] ([id number]) [address] [place] [address] 27084Gvslwkdtx esterase Test strip Ql (U)NegativeNormalNEGProBaylor Scott And White Medical Center – FriscoComment on above:Performed By: #### UA #### [facility] ([id number]) [address] [place] [address] 98448Bzrtvwn Ql (U)NegativeNormalGood Samaritan Hospital Comment on above:Performed By: #### UA #### [facility] ([id number]) [address] [place] [address] 13392rB (U)7.0 [pH]Normal5.0-8.5PAshtabula County Medical CenterComment on above:Performed By: #### UA #### [facility] ([id number]) [address] [place] [address] 85526Ymiwbsv Ql (U)NegativeNormalNEGPremier Health Comment on above:Performed By: #### UA #### [facility] ([id number]) [address] [place] [address] 56726I.B.CELLS5 /hpfNormal0-5PAshtabula County Medical CenterComment on above:Performed By: #### UA #### [facility] ([id number]) [address] [place] [address] 90672Arfjjkkl gravity (U) [Rel density]1.475Ybpawi9.003-1.035 [facility] Coast HospitalComment on above:Performed By: #### UA #### [facility] ([id number]) [address] [place] [address] 71165KXDLRAWU EPITHELIUM8 /hpfHigh0-5PAshtabula County Medical Center Comment on above:Performed By: #### UA #### [facility] ([id number]) [address] [place] [address] 57589JFAUDZURXYAR EPITH1 /lypPmms2FhfBsqgqlBaylor Scott And White Medical Center – FriscoComment on above:Performed By: #### UA #### [facility] ([id number]) [address] [place] [address] 66885IVNBNWTPRWRUPHDqgjlhTMZPTKvmClbpta [facility] Coast HospitalComment on above:Performed By: #### UA #### [facility] ([id number]) [address] [place] [address] 91185Aoxclxaxbagy Qn (U)0.2 {Ludwig'U}/dLNormal<1.1PAshtabula County Medical CenterComment on above:Performed By: #### UA #### [facility] ([id number]) [address] [place] [address] 02324J.B.CELLS0 /hpfNormal0-5PAshtabula County Medical CenterComment on above:Performed By: #### UA #### [facility] ([id number]) [address] [place] [address]GST with Auto Differentialon 61-92-3930Lpiarvitg (Bld) [#/Vol] 0.03 10*3/uLBon Secours Mercy HealthBasophils/100 WBC (Bld)0 %0 - 2 %[facility] Jewish HospitalEosinophils (Bld) [#/Vol]0.04 10*3/uLBon [facility] Eosinophils/100 [...] 40 %[facility] HealthLymphocytes/100 WBC (Bld)1.98 %[facility] Women's HospitalH (RBC) [Entitic mass]30.9 pg26.0 - 34.0 pgBon [facility] Hospital [facility] YoungstownHC (RBC) [Mass/Vol]34.0 g/dL31.0 - 37.0 g/dLBon [facility] Hospital - YoungstownV (RBC) [Entitic vol]90.7 fL80.0 - 100.0 fLValley Health Monocytes/100 WBC (Bld)10 %High4 - 8 %[facility] HealthMonocytes/100 WBC (Bld)0.80 %[facility] HealthNeutrophils/100 WBC (Bld)65 %47 - 75 %[facility] HealthPlatelet mean volume (Bld) [Entitic vol]9.3 fL6.0 - 12.0 fL [facility] HealthPlatelets (Bld) [#/Vol]238 10*3/uLValley HealthRBC (Bld) [#/Vol]4.21 10*6/uL4.00 - 5.20 m/uLVal[facility] Health Segmented neutrophils/100 WBC (Bld)5.44 %[facility] HealthWBC other (Bld) [#/Vol]8.3Bon [facility] Specialty HospitalCBC with Diffon 71-69-1344Emz. Basophil0.03 k/uLNormal0.00-0.20[facility] FoundationComment on above:Performed By: #### TACHO, CP #### [facility] [address] [place] [address] Appliance Service Technician: Gaye Aguilera.Imm.Granulocyte0.01 k/uLNormal0.00-0.30[facility] FoundationComment on above:Performed By: #### TACHO, CP #### [facility] [address] [place] [address] Appliance Service Technician: Gaye Aguilera.Neutrophil (Seg)5.44 k/uLNormal2.5-7.0[facility] FoundationComment on above:Performed By: #### CDP, CP #### [facility] [address] [place] [id number] Appliance Service Technician: Caden Brown MDBasophils/100 WBC (Bld)0 %Normal0-2Mercy Mansura HospitalComment on above:Performed By: #### CDP, CP #### [facility] [address] [place] [place] [id number] Appliance Service Technician: Caden Brown MDEosinophils (Bld) [#/Vol]0.04 10*3/uLNormal 0.00-0.40Cleveland Clinic FoundationComment on above:Performed By: #### CDP, CP #### [facility] [address] [place] [phone] Appliance Service Technician: GABRIEL Aguileraosinophils/100 WBC (Bld)1 %Normal0-5C[facility] Clinic FoundationComment on above:Performed By: #### CDP, CP #### [facility] [address] [place] [phone] Appliance Service Technician: Caden Brown MDErythrocyte distribution width (RBC) [Ratio]11.8 % Low12.1-15.2Mercy Mansura HospitalComment on above:Performed By: #### CDP, CP #### [facility] [address] [place] [address] Appliance Service Technician: Caden Brown MDHematocrit (Bld) [Volume fraction]38.2 %Normal 36.0-46.0C[facility] Clinic FoundationComment on above:Performed By: #### CDP, CP #### [facility] [address] [place] [phone] Appliance Service Technician: Caden Brown MDHemoglobin (Bld) [Mass/Vol]13.0 g/dLNormal 12.0-16.0C[facility] Clinic FoundationComment on above:Performed By: #### CDP, CP #### [facility] [address] [place] [address] Appliance Service Technician: Mani Aguilerature granulocytes/100 WBC (Bld)0 %Normal0-5 [facility] FoundationCommunson healthcare [facility] on above:Performed By: #### CDP, CP #### [facility] [address] [place] [address] Appliance Service Technician: Tyrese Aguileramphocytes (Bld) [#/Vol]1.98 10*3/uLNormal 1.00-4.80[facility] Clinic FoundationComment on above:Performed By: #### CDP, CP #### [facility] [address] [place] [phone] Appliance Service Technician: Tyrese Aguileramphocytes/100 WBC (Bld)24 %Nnsjlc88-84MrjduCleveland Clinic FoundationComment on above:Performed By: #### CDP, CP #### [facility] [address] [place] [address] Appliance Service Technician: CARLOS Aguilera (RBC) [Entitic mass]30.9 kjHxqknf54.0-34.0 [facility] FoundationComment on above:Performed By: #### CDP, CP #### [facility] [address] [place] [address] Appliance Service Technician: CARLOS AguileraC (RBC) [Mass/Vol]34.0 g/aDAkwhbl51.0-37.0[facility] Clinic FoundationComment on above:Performed By: #### CDP, CP #### [facility] [address] [place] [address] Appliance Service Technician: SANDRA AguileraCV (RBC) [Entitic vol]90.7 aARgqbbk73.0-100.0 [facility] Clinic FoundationComment on above:Performed By: #### CDP, CP #### [facility] [address] [place] [address] Appliance Service Technician: SANDRA Aguileraonocytes (Bld) [#/Vol]0.80 10*3/uLNormal0.00-1.00 [facility] on above:Performed By: #### CDP, CP #### [facility] [address] [place] [address] Appliance Service Technician: SANDRA Aguileraonocytes/100 WBC (Bld)10 %High4-8C[facility] Clinic FoundationComment on above:Performed By: #### CDP, CP #### [facility] [address] [place] [address] Appliance Service Technician: Caden Brown MDNeutrophil (Seg)65 %Wddqpe46-68VvmlyCleveland Clinic FoundationComment on above:Performed By: #### CDP, CP #### [facility] [address] [place], [place] [phone] Appliance Service Technician: Violeta Aguilerateevy mean volume (Bld) [Entitic vol]9.3 fL Normal6.0-12.0[facility] on above:Performed By: #### CDP, CP #### [facility] [address] [place], [place] [phone] Appliance Service Technician: MIR Aguileralatelets (Bld) [#/Vol]238 10*3/pICupopw208-223 [facility] FoundationCommunson healthcare [facility] on above:Performed By: #### CDP, CP #### [facility] [address] [place] [address] Appliance Service Technician: Caden Brown MDRBC (Bld) [#/Vol]4.21 10*6/uLNormal4.00-5.20[facility] Clinic FoundationComment on above:Performed By: #### CDP, CP #### [facility] [address] [place], [place] 1988490 Appliance Service Technician: NIRALI AguileraBC (Bld) [#/Vol]8.3 10*3/uLNormal3.5-11.0[facility] FoundationCommunson healthcare [facility] on above:Performed By: #### CDP, CP #### [facility] [address] [place] [address] Appliance Service Technician: MARCO Aguilerajordan valley [facility] Metabolic Profon [id number] [Mass/Vol] 4.2 g/dLNormal3.5-5.2MPremier Health Miami Valley HospitalComment on above:Performed By: #### CDP, CP #### [facility] [address] [place] [address] Appliance Service Technician: Caden Brown MDAlbumin/Glob Ratio1.5Jipkum8.0-2.5C[facility] Clinic FoundationComment on above:Performed By: #### CDP, CP #### [facility] [address] [place] [address] Appliance Service Technician: Judy Aguilera Phos61 U/JFdikrc42-476NujduCleveland Clinic FoundationCommunson healthcare [facility] hospital on above:Performed By: #### CDP, CP #### [facility] [address] [place] [address] Appliance Service Technician: Caden Brown MDALT [Catalytic activity/Vol]27 U/LNormal5-33[facility] FoundationCommunson healthcare [facility] on above:Performed By: #### CDP, CP #### [facility] [address] [place] [address] Appliance Service Technician: Chad Aguilera gap [Moles/Vol]10 mmol/LNormal9-17[facility] FoundationCommunson healthcare [facility] on above:Performed By: #### CDP, CP #### [facility] [address] [place], [place] [phone] Appliance Service Technician: Caden Sturtz, MDAST [Catalytic activity/Vol]24 U/LNormal<32C[facility] Clinic FoundationComment on above:Performed By: #### CDP, CP #### [facility] [address] [place] [phone] Appliance Service Technician: Caden Brown MDBilirubin [Mass/Vol]1.2 mg/dLNormal0.3-1.2MPremier Health Miami Valley HospitalComment on above:Performed By: #### CDP, CP #### [facility] [address] [place] [phone] Appliance Service Technician: MARCO Aguileraalcium [Mass/Vol]9.1 mg/dLNormal8.6-10.4C[facility] Clinic FoundationComment on above:Performed By: #### CDP, CP #### [facility] [address] [place] [address] Appliance Service Technician: MARCO Aguilerahloride [Moles/Vol]105 mmol/IZzyvhj10-153QzzcaCleveland Clinic FoundationComment on above:Performed By: #### CDP, CP #### [facility] [address] [place] [phone] Appliance Service Technician: Caden Brown MDCO2 [Moles/Vol]24 mmol/EUokjdm75-46RqauwCleveland Clinic FoundationComment on above:Performed By: #### CDP, CP #### [facility] [address] [place] [phone] Appliance Service Technician: MARCO Aguilerareatinine [Mass/Vol]0.7 mg/dLNormal0.5-0.9C[facility] Clinic FoundationComment on above:Performed By: #### CDP, CP #### [facility] [address] [place] [phone] Appliance Service Technician: Caden Brown MDGFR/1.73 sq M.predicted among non-blacks MDRD (S/P/Bld) [Vol rate/Area]mL/min/{1.73_m2}Normal>60C[facility] Clinic FoundationComment on above:Result Comment: These results are not [...] tubular secretion.Performed By: #### CDP, CP #### [facility] [address] [place] [address] Appliance Service Technician: Caden Brown MDGlucose [Mass/Vol]64 mg/xSKfw72-49WvcflPremier Health Miami Valley HospitalComment on above:Performed By: #### CDP, CP #### [facility] [address] [place] [address] Appliance Service Technician: Caden Brown MDPotassium [Moles/Vol]3.6 mmol/LLow3.7-5.3MPremier Health Miami Valley HospitalComment on above:Performed By: #### CDP, CP #### [facility] [address] [place] [address] Appliance Service Technician: Caden Brown MDProtein [Mass/Vol]6.5 g/dLNormal6.4-8.3MPremier Health Miami Valley HospitalComment on above:Performed By: #### CDP, CP #### [facility] [address] [place] [address] Appliance Service Technician: Caden Brown MDSodium [Moles/Vol]139 mmol/VNjsnhf908-858WmyraCleveland Clinic FoundationComment on above:Performed By: #### CDP, CP #### [facility] [address] [place] [address] Appliance Service Technician: Caden Brown MDUrea nitrogen [Mass/Vol]15 mg/dLNormal6-20[facility] Clinic FoundationComment on above:Performed By: #### CDP, CP #### [facility] [address] [place] [address] Appliance Service Technician: Caden Brown [facility] Hospitalensive Metabolic Panelon [id number] [Mass/Vol]4.2 g/dL3.5 - 5.2 g/dLBon SecOchsner Medical Center HealthAlbumin/Globulin [Mass ratio]1.8 {ratio}1.0 - 2.5[facility] Centery HealthALP [Catalytic activity/Vol]61 U/L35 - 104 U/LBon [facility] Centery HealthALT [Catalytic activity/Vol]27 U/L5 - 33 U/LBon [facility] Centery AdScoreAnion gap [Moles/Vol]10 mmol/L9 - 17 mmol/LBon [facility] Medical CenterGigathlete HealthAST [Catalytic activity/Vol]24 U/LNINF - 32 U/LBon SecLourdes Medical CenterGigathlete HealthBilirubin [Mass/Vol]1.2 mg/dL0.3 - 1.2 mg/dLBon SecCrystal Clinic [facility]opedic [facility] Calcium [Mass/Vol]9.1 mg/dL8.6 - 10.4 mg/dLBon SecLourdes Medical Centery HealthChloride [Moles/Vol]105 mmol/L98 - 107 mmol/LBon [facility] Centery HealthCO2 [Moles/Vol]24 mmol/L20 - 31 mmol/LBon [facility] Medical CenterCreatinine [Mass/Vol]0.7 mg/dL0.5 - 0.9 mg/dLBon [facility] Medical CenterGigathlete HealthEst, Glom Filt Rate- PINFBon SecCrystal Clinic Orthopedic CenterComment on above: These results are not intended [...] secretion. Glucose [Mass/Vol]64 mg/dLLow70 - 99 mg/dLBon [facility] O2 GamesInterpretation and review of laboratory resultsAbnormalBon Secours Design Ay HealthPotassium [Moles/Vol]3.6 mmol/LLow3.7 - 5.3 mmol/LBon SecOchsner Medical Center HealthProtein [Mass/Vol]6.5 g/dL6.4 - 8.3 g/dLBon SecCrystal Clinic Orthopedic CenterSodium [Moles/Vol]139 mmol/L135 - 144 mmol/LBon SecOchsner Medical Center HealthUrea nitrogen [Mass/Vol]15 mg/dL6 - 20 mg/dLBon [facility] Centery HealthBon SecCrystal Clinic Orthopedic CenterHCG, Quanton [id number], Kbctg8105.0 mIU/mLHigh<5C[facility] Clinic FoundationCommunson healthcare charle[facility] hospital on above: Result Comment: Non-preg premeno <=5 Postmeno <=8 Male <=3 If HCG results do not concur with clinical observations, additional testing to confirm results is recommended.Performed By: #### BHCG ####[facility] [address] [place] [address] lab Director: Caden Brown MDG, Quantitative, Pregnancyon [id number].beta subunit Pg9500.0 m[IU]/mLHighNINFValley HealthComment on above: Non-preg premeno <=5 Postmeno <=8 Male <=3 If HCG results do not concur with clinical observations, additional testing to confirm results is recommended. Interpretation and review of laboratory resultsAbnormalBon SecCrystal Clinic [facility]opedic [facility] HealthUrinalysison [id number] Ql (U)NegativeNEGATIVE [facility] HealthClarity (U)ClearClearBon [facility] Centery HealthColor (U) YellowYellowBon SecOchsner Medical Center HealthCommentBon SecOchs[facility] Medical Center HealthGlucose Test strip (U) [Mass/Vol]NegativeNEGATIVE mg/dLBon [facility] Centery HealthHemoglobin Auto test strip Ql (U)NegativeNEGATIVEBon [facility] Centery HealthKetones (U) [Mass/Vol]NegativeNEGATIVE mg/dLBon [facility] HealthLeukocyte esterase Test strip Ql (U)NegativeNEGATIVEBon [facility] Centery HealthNitrite Ql (U)Negative NEGATIVEBon [facility] HealthpH (U)8.0 [pH]5.0 - 8.0[facility] Centery Health Protein (U) [Mass/Vol]NegativeNEGATIVE mg/dLBon [facility] Medical CenterSpecific gravity (U) [Rel density]1.0151.005 - 1.030Bon [facility] Medical CenterUrobilinogen Qn (U)Normal0.0 - 1.0 EU/dLBon [facility] Medical CenterBon [facility] Urinalysis, Routineon 65-04-7433Yskopoorb, SemiQt,UrNegativeNormalNEGCleveland Clinic FoundationComment on above:Performed By: #### UA ####[facility] [address] [place] [address] Lab Director: Rodriguez Aguilera, UrineNegativeNormalCleveland Clinic Hillcrest HospitalComment on above: Performed By: #### UA ####[facility] [address] [place] [address] Lab Director: Andrea Aguilerarity (U)Clear NormalCLEARMPremier Health Miami Valley HospitalComment on above:Performed By: #### UA ####[facility] [address] [place] [phone] Director: Jameson Aguilera (U)YellowTriHealth Comment on above:Performed By: #### UA ####[facility] [address] [place] [address] Lab Director: Karli Aguilera [facility]ull Memorial HospitalComment on above:Performed By: #### UA ####[facility] [address] [place] [address] Lab Director: Ciera Aguilera Ql (U)NegativeNormBarberton Citizens Hospital Comment on above:Performed By: #### UA ####[facility] [address] [place] [address] Lab Director: Caden Brown MDKetones Ql (U)NegativeNormalNEGCleveland Clinic FoundationComment on above:Performed By: #### UA ####[facility] [address] [facility] [place] [address] Lab Director: Caden Brown MDLeukocyte esterase Test strip Ql (U)NegativeNormalNEGCleveland Clinic FoundationComment on above:Performed By: #### UA ####[facility] [address] [facility] [place] [phone] Director: Caden Brown MDNitrite,UrNegativeNormalNEGCleveland Clinic FoundationComment on above:Performed By: #### UA ####[facility] [address] [place] [address] Lab Director: Caden Brown MD PH,Ur8.1Qogrgh7.0-8.0C[facility] Clinic FoundationComment on above:Performed By: #### UA ####[facility] [address] [facility] [place] [address] Lab Director: MIR Aguilerarotein Ql (U)NegativeNormalNEG [facility] Clinic FoundationComment on above:Performed By: #### UA ####[facility] [address] [facility] [place] [address] Lab Director: JOSUÉ Aguilerapec. [place],Ur1.875Mkdjjl2.005-1.030[facility] Comment on above:Performed By: #### UA ####[facility] [address] [facility] [place] [address] Lab Director: Caden Brown MD Urobilinogen,UrNormalNormal0.0-1.0C[facility] Clinic FoundationComment on above: Performed By: #### UA ####[facility] [address] [facility] [place] [address] lab Director: GIANCARLO Aguilera PREG QUANT HCG on [id number] ZWSBGTNCTFFA873gTB/mLNOMS HealthcareComment on above:5-50 0.2-1 WEEK 50-500 1-2 WEEKS 100-5,000 2-3 WEEKS 500-10,000 3-4 WEEKS 1,000-50,000 4-5 WEEKS 10,000-100,000 5-6 WEEKS 15,000-200,000 6-8 WEEKS 10,000-100,000 2-3 MONTHS CLINISYNCNOMS HealthcareLIVINGST[facility] with Auto Differentialon [id number] (Bld) [#/Vol]0.01 10*3/uLBon Secours [facility] Jewish HospitalBasophils/100 WBC (Bld)0 %0 - 2 %[facility] HealthEosinophils (Bld) [#/Vol]0.01 10*3/uLBon [facility]ours [facility]cy HealthEosinophils/100 WBC (Bld)0 %0 - 5 %[facility] HospitalErythrocyte distribution width (RBC) [Ratio]12.2 %12.1 - 15.2 %[facility] Hematocrit (Bld) [Volume fraction]43.3 %36.0 - 46.0 %[facility] Hemoglobin (Bld) [Mass/Vol]14.9 g/dL12.0 - 16.0 g/dLBon [facility]ours [facility] Immature granulocytes (Bld) [#/Vol]0.01 10*3/uLBon Secours [facility] Jewish HospitalImmature granulocytes/100 WBC (Bld)0 %0 - 5 %[facility] HealthInterpretation and review of laboratory resultsAbnormalBon [facility]ours [facility]cy HealthLymphocytes/100 WBC (Bld)15 %15 - 40 %[facility] HealthLymphocytes/100 WBC (Bld)1.82 %[facility] Centery [facility] HospitalH (RBC) [Entitic mass]31.1 pg26.0 - 34.0 pgBon Secours [facility] Campus Medical Centery [facility] Rehabilitation HospitalHC (RBC) [Mass/Vol]34.4 g/dL31.0 - 37.0 g/dLBon Secours [facility] Campus Medical CenterCarilion Tazewell Community HospitalMCV (RBC) [Entitic vol]90.4 fL80.0 - 100.0 fLValley Health Monocytes/100 WBC (Bld)4 %4 - 8 %Valley HealthMonocytes/100 WBC (Bld) 0.43 %Valley HealthNeutrophils/100 WBC (Bld)81 %High47 - 75 %Valley HealthPlatelet mean volume (Bld) [Entitic vol]9.6 fL6.0 - 12.0 fL Valley HealthPlatelets (Bld) [#/Vol]243 10*3/uLValley HealthRBC (Bld) [#/Vol]4.79 10*6/uL4.00 - 5.20 m/[facility] Segmented neutrophils/100 WBC (Bld)9.54 %HighValley HealthWBC other (Bld) [#/Vol]11.8HighMountain View Regional Medical CenterCBC with Diffon [id number]. Basophil0.01 k/uLNormal0.00-0.20[facility] Comment on above:Performed By: #### LIP, CP, HCG, CDP, TROPI #### [facility] [address] [place] [address] Appliance Service Technician: Gaye Aguilera.Imm.Granulocyte0.01 k/uLNormal0.00-0.30C[facility] Clinic FoundationComment on above:Performed By: #### LIP, CP, HCG, CDP, TROPI #### [facility] [address] [place] [address] Appliance Service Technician: Gaye Aguilera.Neutrophil (Seg)9.54 k/uLHigh2.5-7.0[facility] Clinic FoundationComment on above:Performed By: #### LIP, CP, HCG, CDP, TROPI #### [facility] [address] [place] [address] Appliance Service Technician: Caden Brown MDBasophils/100 WBC (Bld)0 %Normal0-2MPremier Health Miami Valley HospitalComment on above:Performed By: #### LIP, CP, HCG, CDP, TROPI #### [facility] [address] [place] [address] Appliance Service Technician: Caden Brown MDEosinophils (Bld) [#/Vol]0.01 10*3/uLNormal 0.00-0.40[facility] FoundationComment on above:Performed By: #### LIP, CP, HCG, CDP, TROPI #### [facility] [address] [place] [address] Appliance Service Technician: Caden Brown MDEosinophils/100 WBC (Bld)0 %Normal0-5[facility] FoundationComment on above:Performed By: #### LIP, CP, HCG, CDP, TROPI #### [facility] [address] [place] [address] Appliance Service Technician: Caden Brown MDErythrocyte distribution width (RBC) [Ratio]12.2 % Ywqume62.1-15.2MPremier Health Miami Valley HospitalComment on above:Performed By: #### LIP, CP, HCG, CDP, TROPI #### [facility] [address] [place] [address] Appliance Service Technician: Caden Brown MDHematocrit (Bld) [Volume fraction]43.3 %Normal 36.0-46.0Memorial Hospitalment on above:Performed By: #### LIP, CP, HCG, CDP, TROPI #### [facility] [address] [place] [address] Appliance Service Technician: Caden Brown MDHemoglobin (Bld) [Mass/Vol]14.9 g/dLNormal 12.0-16.0[facility] FoundationComment on above:Performed By: #### LIP, CP, HCG, CDP, TROPI #### [facility] [address] [place], [place] [id number] Appliance Service Technician: Mani Aguilerature granulocytes/100 WBC (Bld)0 %Normal0-5 [facility] on above:Performed By: #### LIP, CP, HCG, CDP, TROPI #### [facility] [address] [place] [phone] Appliance Service Technician: Tyrese Aguileramphocytes (Bld) [#/Vol]1.82 10*3/uLNormal 1.00-4.80[facility] on above:Performed By: #### LIP, CP, HCG, CDP, TROPI #### [facility] [address] [place] [address] Appliance Service Technician: Tyrese Aguileramphocytes/100 WBC (Bld)15 %Uofamg04-83QbjnjParkview Health Montpelier Hospital on above:Performed By: #### LIP, CP, HCG, CDP, TROPI #### [facility] [address] [place] [phone] Appliance Service Technician: CARLOS Aguilera (RBC) [Entitic mass]31.1 kmNrxylu56.0-34.0 [facility] on above:Performed By: #### LIP, CP, HCG, CDP, TROPI #### [facility] [address] [place] [phone] Appliance Service Technician: CARLOS AguileraC (RBC) [Mass/Vol]34.4 g/xTFihunj70.0-37.0[facility] FoundationComment on above:Performed By: #### LIP, CP, HCG, CDP, TROPI #### [facility] [address] [place] [phone] Appliance Service Technician: SANDRA AguileraCV (RBC) [Entitic vol]90.4 rRFmqxaz84.0-100.0 [facility] on above:Performed By: #### LIP, CP, HCG, CDP, TROPI #### [facility] [address] [place] [address] Appliance Service Technician: SANDRA Aguileraonocytes (Bld) [#/Vol]0.43 10*3/uLNormal0.00-1.00 [facility] on above:Performed By: #### LIP, CP, HCG, CDP, TROPI #### [facility] [address] [place] [address] Appliance Service Technician: SANDRA Aguileraonocytes/100 WBC (Bld)4 %Normal4-8[facility] on above:Performed By: #### LIP, CP, HCG, CDP, TROPI #### [facility] [address] [place] [address] Appliance Service Technician: Ana Aguilera (Seg)81 %Cqvy47-86XfilnParkview Health Montpelier Hospital on above:Performed By: #### LIP, CP, HCG, CDP, TROPI #### [facility] [address] [place] [address] Appliance Service Technician: Darrel Aguilera mean volume (Bld) [Entitic vol]9.6 fL Normal6.0-12.0[facility] on above:Performed By: #### LIP, CP, HCG, CDP, TROPI #### [facility] [address] [place] [address] Appliance Service Technician: Violeta Aguilerateines (Bld) [#/Vol]243 10*3/wGCxcrrw260-360 [facility] on above:Performed By: #### LIP, CP, HCG, CDP, TROPI #### [facility] [address] [place] [address] Appliance Service Technician: CASSI AguileraBC (Bld) [#/Vol]4.79 10*6/uLNormal4.00-5.20[facility] FoundationComment on above:Performed By: #### LIP, CP, HCG, CDP, TROPI #### [facility] [address] [place] [address] Appliance Service Technician: NIRALI Aguilera (Bld) [#/Vol]11.8 10*3/uLHigh3.5-11.0[facility] FoundationComment on above:Performed By: #### LIP, CP, HCG, CDP, TROPI #### [facility] [address] [place] [address] Appliance Service Technician: MARCO AguileraMercy Hospital South, formerly [facility] [id number] [Mass/Vol]4.5 g/dL3.5 - 5.2 g/dLBon [facility] HealthALP [Catalytic activity/Vol]80 U/L35 - 104 U/L [facility] HealthALT [Catalytic activity/Vol]17 U/L5 - 33 U/LBon [facility] Hospitalours Ashtabula County Medical CenterAnion gap [Moles/Vol]16 mmol/L9 - 17 mmol/LBon [facility] Hospitalours [facility] Health AST [Catalytic activity/Vol]19 U/LNINF - 32 U/LBon [facility] Hospitalours [facility] HealthBilirubin [Mass/Vol]1.3 mg/dLHigh0.3 - 1.2 mg/dLBon [facility] HealthCalcium [Mass/Vol] 9.7 mg/dL8.6 - 10.4 mg/dLBon [facility] Hospitalours [facility] HealthChloride [Moles/Vol]101 mmol/L 98 - 107 mmol/LBon [facility] Hospitalours [facility] HealthCO2 [Moles/Vol]21 mmol/L20 - 31 mmol/LBon [facility] Hospitalours [facility] HealthCreatinine [Mass/Vol]0.7 mg/dL0.5 - 0.9 mg/dLBon [facility] Hospitalours [facility] HealthEst, Glom Filt Rate- PINFBon University Hospitals St. John Medical CenterComment on above: These results are not intended [...] secretion. Glucose [Mass/Vol]94 mg/dL70 - 99 mg/dLBon [facility] St. John Medical CenterInterpretation and review of laboratory resultsAbnormalBon [facility] St[facility] John Medical CenterPotassium [Moles/Vol]3.2 mmol/LLow3.7 - 5.3 mmol/LBon [facility] HealthProtein [Mass/Vol]7.4 g/dL6.4 - 8.3 g/dLBon [facility] HealthSodium [Moles/Vol]138 mmol/L135 - 144 mmol/LBon [facility] John Medical CenterUrea nitrogen [Mass/Vol]15 mg/dL6 - 20 mg/dLBon [facility] St. John Medical CenterUrea nitrogen/Creatinine [Mass ratio]21 mg/mg High9 - 20Bon [facility] Medical CenterCOVID-19, Rapidon [id number]-CoV-2 (COVID- 19) RdRp gene JANET+probe Ql (Resp)Not detectedNot Shenandoah Memorial HospitalComment on above: Rapid NAAT: The specimen [...] Methodology: Isothermal Nucleic Acid Amplification Specimen Description.NASOPHARYNGEAL SWABMountain View Regional Medical CenterCT ABDOMEN PELVIS W IV CONTRASTon [id number] ABDOMEN PELVIS W IV CONTRASTEXAMINATION: CT ABDOMEN [...] Signed by: Сергей Cobian MD 11/16/24 Final resultNormalCleveland Clinic FoundationCT Abdomen and Pelvis W contrast [place] 11-16-2024 [...] lymph nodes. No aortic aneurysm or dissection. [facility] Сергей Rincon MD - 11/16/2024 EXAMINATION: CT ABDOMEN PELVIS [...] appendicitis, or other acute inflammatory process. IMPRESSION: [facility] CenterRadiology Study observation (narrative)[facility] Metabolic Profon 20-15-8892Nrzrsmq [Mass/Vol]4.5 g/dLNormal3.5-5.2MPremier Health Miami Valley HospitalComment on above:Performed By: #### LIP, CP, HCG, CDP, TROPI ####[facility] [address] [place] [id number] lab Director: Judy Aguilera Phos80 U/WOywobx16-354XcwraCleveland Clinic FoundationComment on above:Performed By: #### LIP, CP, HCG, CDP, TROPI ####[facility] Zvm[address] [place] [phone] Director: Caden Brown MDALT [Catalytic activity/Vol]17 U/LNormal5-33C[facility] Clinic FoundationComment on above:Performed By: #### LIP, CP, HCG, CDP, TROPI ####[facility] Xie[address] [place] [address] Lab Director: Chad Aguilera gap [Moles/Vol]16 mmol/LNormal9-17[facility] Clinic FoundationComment on above:Performed By: #### LIP, CP, HCG, CDP, TROPI ####[facility] His[address] [place] [phone] Director: Caden Brown MDAST [Catalytic activity/Vol]19 U/LNormal<32C[facility] Clinic FoundationComment on above: Performed By: #### LIP, CP, HCG, CDP, TROPI ####[facility] Mnx[address]648 [place] [phone] Director: Caden Brown MD Bilirubin [Mass/Vol]1.3 mg/dLHigh0.3-1.2MPremier Health Miami Valley HospitalComment on above: Performed By: #### LIP, CP, HCG, CDP, TROPI ####[facility] Zme[address] [place] [address] Lab Director: Caden Brown MD BUN/CRE Hibga39Qeyd6-14FxoqxCleveland Clinic FoundationComment on above:Performed By: #### LIP, CP, HCG, CDP, TROPI ####[facility] Gjm[address] [place] [phone] Director: MARCO Aguileraalcium [Mass/Vol] 9.7 mg/dLNormal8.6-10.4C[facility] Clinic FoundationComment on above:Performed By: #### LIP, CP, HCG, CDP, TROPI ####[facility] [address] [place] [id number] Lab Director: MARCO Aguilerahloride [Moles/Vol]101 mmol/UFblajr32-787JbdnkCleveland Clinic FoundationComment on above: Performed By: #### LIP, CP, HCG, CDP, TROPI ####[facility] [address]xr[address] [place] [address] Lab Director: Caden Brown MD CO2 [Moles/Vol]21 mmol/JKgdaol92-64BcfvcCleveland Clinic FoundationComment on above: Performed By: #### LIP, CP, HCG, CDP, TROPI ####[facility] Hqf[address] [place] [address] Lab Director: Caden Brown MD Creatinine [Mass/Vol]0.7 mg/dLNormal0.5-0.9[facility] on above:Performed By: #### LIP, CP, HCG, CDP, TROPI ####[facility] [address]kq[address] [place] [address] Lab Director: Caden Brown MDGFR/1.73 sq M.predicted among non-blacks MDRD (S/P/Bld) [Vol rate/Area]mL/min/{1.73_m2}Normal>60[facility] Clinic FoundationCommunson healthcare charle[facility] on above:Result Comment: These results are [...] By: #### LIP, CP, HCG, CDP, TROPI ####[facility] S[address] [place] [address] Lab Director: Caden Brown MDGlucose [Mass/Vol]94 mg/dLNormal 70-99MPremier Health Miami Valley HospitalComment on above:Performed By: #### LIP, CP, HCG, CDP, TROPI ####[facility] Oqk[address] [place] [address] Lab Director: MIR Aguileraotassium [Moles/Vol]3.2 mmol/L Low3.7-5.3MPremier Health Miami Valley HospitalComment on above:Performed By: #### LIP, CP, HCG, CDP, TROPI ####[facility] Gkp1574 [place] [address] Lab Director: Caden Borwn MDProtein [Mass/Vol]7.4 g/dL Normal6.4-8.3MPremier Health Miami Valley HospitalComment on above:Performed By: #### LIP, CP, HCG, CDP, TROPI ####[facility] Hpd264[address] [place] [address] Lab Director: Caden Brown MDSodium [Moles/Vol]138 mmol/L Yaeibf968-357OmehzCleveland Clinic FoundationComment on above:Performed By: #### LIP, CP, HCG, CDP, TROPI ####[facility] Wuu[address] [place] [address] Lab Director: Caden Brown MDUrea nitrogen [Mass/Vol]15 mg/dLNormal6-20[facility] Clinic FoundationComment on above:Performed By: #### LIP, CP, HCG, CDP, TROPI ####[facility] Qba[address] [place] [address] Lab Director: Caden Brown MDFlu A/B Ag Detectionon 07-57-9068Zjh A Ag DetectionNegativeNormalNEGMerProtestant Deaconess Hospital on above:Result Comment: for Influenza A AntigenPerformed By: #### FLUABA ####[facility] Xwp[address]173 [place] [address] lab Director: Caden Brown MDFlu B Ag DetectionNegativeNormalNEGParkview Health Montpelier Hospital on above:Result Comment: for Influenza B Antigen.Performed By: #### FLUABA ####[facility] Mtf[address] [place] [address] lab Director: Caden Brown MDHCG Qualitative, Serumon 67-60-5455ZOP ( test) QlNegativeNEGATIVEBon [facility] CenterCommunson healthcare [facility] on above:Specimens with hCG levels near the threshold of the test (25 mIU/mL) may give a negative or indeterminate result. In such cases, another test should be performed with a new specimen in 48-72 hours. If early is suspected clinically in this setting, correlation with quantitative serum b-hCG level is suggested. [facility] has confirmed the use of plasma for this test. This has not been cleared or approved by the U.S. Food and Drug Administration. The FDA has determined that such clearance is not necessary. Darek [facility] John Medical CenterHCG Screen, Bloodon 43-36-3540EEM Screen, BloodNegative NormalNEGMerProtestant Deaconess Hospital on above:Result Comment: Specimens with hCG levels near the threshold of the test (25 mIU/mL) may give a negative or indeterminate result. In such cases, another test should be performed with a new specimen in 48-72 hours. If early is suspected clinically in this setting, correlation with quantitative serum b-hCG level is suggested. [facility] has confirmed the use of plasma for this test. This has not been cleared or approved by the U.S. Food and Drug Administration. The FDA has determined that such clearance is not necessary.Performed By: #### LIP, CP, HCG, CDP, TROPI ####[facility] Yty[address] [place], [place] [id number] lab Director: Caden Brown MDLipaseon 14-29-2063Dryais [Catalytic activity/Vol]47 U/L13 - 60 U/LBon [facility] Medical CenterLipase [Catalytic activity/Vol]47 U/LDpaqar88-49UgoydCleveland Clinic FoundationComment on above: Performed By: #### LIP, CP, HCG, CDP, TROPI ####[facility] [address] [place], [place] [address] lab Director: Caden Brown MD No Panel Informationon 36-39-9883Wtx [facility] XR Chest AP single viewon 11-16-2024 Normal chest. [facility] CONSOLIDATEDCLINICAL HISTORY: Shortness of breath. Chest pain. CHEST PORTABLE AP VIEW: The lungs are clear. No pneumothorax. The pulmonary vascularity and cardiomediastinal silhouette are normal. No acute fracture is seen. [facility] Сергей Rincon MD - 11/16/2024 CLINICAL HISTORY: Shortness of breath. Chest pain. CHEST PORTABLE AP VIEW: The lungs are clear. No pneumothorax. The pulmonary vascularity and cardiomediastinal silhouette are normal. No acute fracture is seen. IMPRESSION: Normal chest. [facility] HealthRad[facility] Study observation (narrative)[facility] XR Chest AP single viewOrdered By: Сергей Cobian on 08-52-2238Woo [facility] Work Phone: Rapid influenza A/B antigenson 67-80-4911BTCMJ Ag Ql (Unsp spec)NegativeNEGATIVEBon [facility] on above:for Influenza A AntigenFLUBV Ag Ql (Unsp spec)NegativeNEGATIVEBon [facility] CenterCommunson healthcare [facility] on above:for Influenza B Antigen.[facility] UGGN-ZqO-7bg 92-17-7253KTTF-CoV-2 (COVID-19) RNA JANET+probe Ql (Unsp spec)Not detectedNormalNOTDEMcCullough-Hyde Memorial Hospital on above:Result Comment: Rapid NAAT: The [...] Isothermal Nucleic Acid AmplificationPerformed By: #### COVRB ####[facility] [address] [place] [phone] Director: Caden Brown MDTropomike 25-08-0732Wwzniooj I.cardiac High sensitivity method [Mass/Vol]ng/L0 - 14 ng/LBon [facility] on above:High Sensitivity Troponin values cannot be compared with other Troponin methodologies.Bon [facility] Hospitaloponin, High Sens<2Xqperi5-22PsqabParkview Health Montpelier Hospital on above:Result Comment: High Sensitivity Troponin values cannot be compared with other Troponin methodologies.Performed By: #### LIP, CP, HCG, CDP, TROPI ####[facility] [address] [place], [place] [address] lab Director: Caden Brown MDUrinalysison 65-91-4379Ayfjdbzwk Ql (U)NegativeNEGATIVEBon Secours Mercy HealthClarity (U)ClearClearBon [facility] Medical Centery HealthColor (U)Yellow YellowBon [facility] HealthCommentBon [facility]ours [facility] Medical Centery HealthGlucose Test strip (U) [Mass/Vol]NegativeNEGATIVE mg/dLBon Secours [facility] Medical Centery HealthHemoglobin Auto test strip Ql (U)NegativeNEGATIVEBon [facility]ours Mercy HealthKetones (U) [Mass/Vol] NegativeNEGATIVE mg/dLBon [facility] HealthLeukocyte esterase Test strip Ql (U)NegativeNEGATIVEBon [facility]ours Mer[facility] HealthNitrite Ql (U)NegativeNEGATIVEBon [facility] Mercy HealthpH (U)7.0 [pH]5.0 - 8.0Bon [facility] Medical CenterProtein (U) [Mass/Vol]NegativeNEGATIVE mg/dLBon [facility] Medical CenterSpecific gravity (U) [Rel density]1.0101.005 - 1.030Bon [facility] Medical CenterUrobilinogen Qn (U)Normal 0.0 - 1.0 EU/dLBon [facility] HospitalUrinalysis, Routineon 07-89-8703Yfuisdaui, SemiQt,UrNegativeNoMercy Health St. [facility] Comment on above:Performed By: #### UA #### [facility] [address] [place] [address] Appliance Service Technician: Rodriguez Aguilera, UrineNegativeWVUMedicine Harrison Community HospitalComment on above:Performed By: #### UA #### [facility] [address] [place] [address] Appliance Service Technician: MARCO Aguileralarity (U)ClearNormalCLEARCleveland Clinic Foundation Comment on above:Performed By: #### UA #### [facility] [address] [place] [address] Appliance Service Technician: MARCO Aguileraolor (U)YellowTriHealth Comment on above:Performed By: #### UA #### [facility] [address] [place] [address] Appliance Service Technician: MARCO AguileraommentNoBrown Memorial HospitalComment on above:Performed By: #### UA #### [facility] [address] [place] [address] Appliance Service Technician: Rosana Aguileraose Ql (U)NegativeNormalCleveland Clinic Hillcrest HospitalComment on above:Performed By: #### UA #### [facility] [address] [place] [address] Appliance Service Technician: Caden Brown MDKetones Ql (U)NegativeNormalNEGCleveland Clinic FoundationComment on above:Performed By: #### UA #### [facility] [address] [place], [place] [address]38[address] Appliance Service Technician: Caedn Brown MDLeukocyte esterase Test strip Ql (U)NegativeNormal NEGCleveland Clinic FoundationComment on above:Performed By: #### UA #### [facility] [address] [place] [address] Appliance Service Technician: Satinder Aguileraite,UrNegativermMedina Hospital on above:Performed By: #### UA #### [facility] [address] [place] [address] Appliance Service Technician: DAILY Aguilera,Ur7.6Dzwcbo6.0-8.0Memorial Hospitalment on above:Performed By: #### UA #### [facility] [address] [place] [address] Appliance Service Technician: Emma Aguilera Ql (U)NegativeNormalNEGCleveland Clinic FoundationComment on above:Performed By: #### UA #### [facility] [address] [place] [address] Appliance Service Technician: JOSUÉ Aguilerapec. [place]aver,Ur1.318Bjjxez5.005-1.030Memorial Hospitalment on above:Performed By: #### UA #### [facility] [address] [place] [address] Appliance Service Technician: Talia Aguilerabilinogen,UrNormalNormal0.0-1.0[facility] on above:Performed By: #### UA #### [facility] [address] [place], [place] [address] Appliance Service Technician: FELICIANO Aguilera CHEST PORTABLEon 53-98-4587XN CHEST PORTABLE CLINICAL HISTORY: Shortness of breath. Chest pain. CHEST PORTABLE AP VIEW: The lungs are clear. No pneumothorax. The pulmonary vascularity and cardiomediastinal silhouette are normal. No acute fracture is seen. IMPRESSION: Normal chest. Interpreted by: Сергей Cobian MD Signed by: Сергей Cobian MD 11/16/24 Final resultNormalMercy Alliance HospitalHCG ( test) Ql (U)on 10-23-2024 Interpretation and review of laboratory resultsNormalNOMS HealthcarePreg Test, UrNegativeNegativeNOMS HealthcareNOCT HealthcareHCG ( test) Ql (U)on 47-47-9572Kped HCG ( test) Ql (U)NegativeNormalNEGProMedica Mercy HospitalComment on above:Performed By: #### 2106-3 #### [facility] ([id number]) [address] [place], [place] [address]Surgical Pathologyon 15-53-6295Bumkyact PathologyNormal [facility]ana HospitalComment on above:Result Comment: [facility] [address] [place] [address] Surgical Pathology Consultation Patient Name:CHARIS ALLEN:2000 (Age: 23)Gender:FTaken:4Reported:4Physician(s):Luis Enrique Jennings DO ([phone])Copy To: Rec. 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 Report Electronically Signed Out cjb/4Ceri Arguelles MD Interpretation performed at [facility], [address] [place] [address], License number: [id number]. Clinical History Lesion of tongue. Gross Description Received in formalin labeled TIFFANY, right base of tongue lesion is a Telfa pad with two travis-yellow rubbery soft tissue bits, 0.2 and 0.3 cm. The specimen is filtered and entirely submitted in a single cassette. (1, ns, [id number],m5) DM. dm/08/27/2024NSK Specimen(s) Received Right base of tongue Fee Codes(s): 1; 43160LYQAfh 73-94-5629AAFBAxbxmw Visit (PODIAM) CHARIS ALLEN ([id number]) [birth year] F Date Time Provider Department 07/25/24 [...] which included preparing to see the patient, ebyc-nd-wgkr patient care, completing clinical documentation, obtaining and/or reviewing separately obtained history, performing a medically appropriate examination, counseling and educating the patient/family/caregiver, ordering medications, tests and care coordination (not separately reported). Time did not include procedure time. I agree with the Chief Complaint, ROS, and Past Histories independently gathered by the clinical aircraft life support fitter and the remaining scribed note accurately describes [...] your cooperation. GENERAL INS (more content not included)...NormalWhite Hospital NECK SOFT TISSUE W CONTon 18-11-3516OG NECK SOFT TISSUE W CONTCT NECK SOFT [...] Finalized by Mich Ty on 07/11/2024 8:38 [facility] US PELVIS W/ TRANSVAGINALon 13-25-6268[place]bl[place] [address] Ultrasound Report Signed Patient: CHARIS ALLEN MR#: [id number] : 2000 Acct:[id number] Age/Sex: 23 / F ADM Date: 07/02/24 Loc: RAD Attending Dr: GUALBERTO VANN Ordering Physician: GUALBERTO VANN Date of Service: 07/02/24 Procedure(s): US pelvis w/ transvaginal Accession Number(s): [id number] cc: GUALBERTO VANN ; Diane THAP[address] [place] [address] Patient Name: CHARIS ALLEN MRN: [id number] date: 2000 Sex: F Assigned Patient Location: [facility] Current Patient Location: Accession/Order Number: [id number] Exam Date: 07/02/2024 10:56 Report Date: 07/03/2024 05:53 At the request of: GUALBERTO VANN Procedure: US pelvis w/ transvaginal EXAMINATION: [...] 1. Normal pelvic ultrasound. Electronically authenticated by: JESSICA GUPTA Date: 07/03/2024 05:53 Dictated By: Jessica Gupta M.D. Signed By: 07/03/24 0555 DD/ 0553 TD/TT: Senior Environmental Technician:MARIOHRadiology, Radiologist, - 07/03/2024 [place] [address] Ultrasound Report Signed Patient: CHARIS ALLEN MR#: [id number] : 2000 Acct:[id number] Age/Sex: 23 / F ADM Date: 07/02/24 Loc: [facility] Attending Dr: GUALBERTO VANN Ordering Physician: GUALBERTO VANN Date of Service: 07/02/24 Procedure(s): US pelvis w/ transvaginal Accession Number(s): [id number] cc: GUALBERTO VANN ; Diane THAPA [address] [place] [id number] Patient Name: CHARIS ALLEN MRN: [id number] date: 2000 Sex: F Assigned Patient Location: [facility] Current Patient Location: Accession/Order Number: [id number] Exam Date: 07/02/2024 10:56 Report Date: 07/03/2024 05:53 At the request of: GUALBERTO VANN Procedure: US pelvis w/ transvaginal EXAMINATION: [...] 1. Normal pelvic ultrasound. Electronically authenticated by: JESSICA GUPTA Date: 07/03/2024 05:53 Dictated By: Jessica Gupta M.D. Signed By: 07/03/2455 DD/ TD/TT: Senior Environmental Technician: BRANDEN HealthcareRadiology Study observation (narrative)NOMS HealthcareUS PELVIS W/ TRANSVAGINALOrdered By: Radiologist Radiology on 74-41-6612ZSJJ Healthcare Work Phone: [facility] PREG QUANT HCGon 01-55-7455BVY QUANTITATIVE<1 mIU/mLNOMS HealthcareComment on above:5-50 0.2-1 WEEK 50-500 1-2 WEEKS 100-5,000 2-3 WEEKS 500-10,000 3-4 WEEKS 1,000-50,000 4-5 WEEKS 10,000-100,000 5-6 WEEKS 15,000-200,000 6-8 WEEKS 10,000-100,000 2-3 MONTHS CLINISYNCNOMS HealthcareTrichomonas vaginalis detection by wet preparation Ordered By: Yung Nichols on 06-28-2024T. vaginalis Wet prep Ql (Unsp spec) [facility]als Health SystemAlanine aminotransferase [Enzymatic activity/volume] in Serum or PlasmaOrdered By: Yung Nichols on 15-74-1877HPQ [Catalytic activity/Vol]20 U/L7-52[facility] Health SystemAlbumin [Mass/volume] in Serum or Plasma by Bromocresol green (BCG) dye binding metho Ordered By: Yung Nichols on 09-28-0276Jfuxiuq BCG dye [Mass/Vol]4.2 g/dL3.5-5.7 [facility] Health SystemAlkaline phosphatase [Enzymatic activity/volume] in Serum or PlasmaOrdered By: Yung Nichols on 66-33-2856RAR [Catalytic activity/Vol]69 U/B85-364BugncyavwUniversity Hospitals Health SystemAspartate aminotransferase [Enzymatic activity/volume] in Serum or PlasmaOrdered By: Yung Nichols on 62-34-6549IMH [Catalytic activity/Vol]21 U/V96-34KpqisjqpfUniversity Hospitals Health SystemBacteria [Presence] in Urine by AutomatedOrdered By: Yung Nichols on 74-84-7297Riztungr Auto Ql (U)Rare [HPF]None SeenUniversity Hospitals Health SystemBasophils Auto (Bld) [#/Vol]Ordered By: Yung Nichols on 98-17-8433Sxjpbvdnm (Bld) [#/Vol]0.0 10*3/uL0.0-0.2FNewark HospitalBasophils/100 WBC Auto (Bld)Ordered By: Yung Nichols on 06-27-2024 Basophils/100 WBC (Bld)0.6 %.[facility] Health SystemBilirubin Test strip Ql (U)Ordered By: Yung Nichols on 63-71-7767Ybyrwaiiy Ql (U)Negative NegativeUniversity Hospitals Health SystemBilirubin.total [Mass/volume] in Serum or PlasmaOrdered By: Yung Nichols on 27-57-0378Zjshgkrgj [Mass/Vol]1.5 mg/dL High0.3-1.0[facility] Health SystemComment on above:Samples from patients who have taken Naproxen have shown spurious elevation in Total Bilirubin levels. A metabolite of Naproxen, O-desmethylnaproxen, has been shown to interfere with the Brian-Tyler method for measuring Total Bilirubin. Calcium [Mass/volume] in Serum or PlasmaOrdered By: Yung Nichols on 06-27-2024 Calcium [Mass/Vol]9.1 mg/dL8.6-10.3FNewark HospitalCarbon dioxide, total [Moles/volume] in Serum or PlasmaOrdered By: Yung Nichols on 06-51-6613LE8 [Moles/Vol]26.8 mmol/L21.0-31.0[facility] Chloride [Moles/volume] in Serum or PlasmaOrdered By: Yung Nichols on 82-14-3320Ieeizmck [Moles/Vol]105 mmol/C19-798CahelefhkUniversity Hospitals Health System Color Auto (U)Ordered By: Yung Nichols on 33-28-7152Buyfz (U)YellowYellow [facility] Health SystemCreatinine [Mass/volume] in Serum or Plasma Ordered By: Yung Nichols on 13-99-2559Glwdpwsmey [Mass/Vol]0.75 mg/dL0.60-1.20 [facility] SystemEosinophils Auto (Bld) [#/Vol]Ordered By: Yung Nichols on 20-21-4791Cfrsbvxjavu (Bld) [#/Vol]0.1 10*3/uL0.0-0.45[facility] Health SystemEosinophils/100 WBC Auto (Bld)Ordered By: Yung Nichols on 64-22-7858Qupqobuhgjg/100 WBC (Bld)1.4 %.[facility] Epithelial cells.squamous [#/area] in Urine sediment by Automated countOrdered By: Yung Nichols on 02-22-3441Osocxgbwaa cells.squamous Auto (Urine sed) [#/Area]3-4 [HPF]High0-2FNewark HospitalErythrocyte distribution width Auto (RBC) [Ratio]Ordered By: Yung Nichols on 06-27-2024 Erythrocyte distribution width (RBC) [Ratio]14.2 %11.9-15.3FNewark HospitalErythrocytes [#/area] in Urine sediment by Automated countOrdered By: Yung Nichols on 86-94-2216OXH Auto (Urine sed) [#/Area]5-9 [HPF]High0-4 [facility] Health SystemGlobulin Calc (S) [Mass/Vol]Ordered By: Yung Nichols on 33-42-8921Bqrcbkax (S) [Mass/Vol]2.2 g/dLUniversity Hospitals Health SystemGlucose [Mass/volume] in Serum or PlasmaOrdered By: Yung Nichols on 14-02-2554Lqeszih [Mass/Vol]82 mg/fK72-505UuphsszodUniversity Hospitals Health System Comment on above:ADA recommended reference rangeRandom Glucose Reference Range is dependent on time and content of last meal. Glucose of more than 200 mg/dL in a nonstressed, ambulatory subject supports the diagnosisof Diabetes Mellitus. Glucose [Mass/volume] in Urine by Test stripOrdered By: Yung Nichols on 51-91-9605Xuvbmvo Test strip (U) [Mass/Vol]Normal mg/dLNormalUniversity Hospitals Health SystemHCG ( test) IA.rapid Ql (U)Ordered By: Yung Nichols on 78-83-1109HCY ( test) Ql (U)NegativeUniversity Hospitals Health System Hematocrit Auto (Bld) [Volume fraction]Ordered By: Yung Nichols on 06-27-2024 Hematocrit (Bld) [Volume fraction]39.5 %34.0-46.4FNewark HospitalHemoglobin Test strip Ql (U)Ordered By: Yung Nichols on 06-27-2024 Hemoglobin Ql (U)1+HighNegativeUniversity Hospitals Health SystemHemoglobin [Mass/volume] in BloodOrdered By: Yung Nichols on 42-30-8072Cayppirubj (Bld) [Mass/Vol]13.2 g/dL11.8-15.4FNewark HospitalHyaline casts [#/area] in Urine sediment by Automated countOrdered By: Yung Nichols on 71-20-0700Usbnjmg casts Auto (Urine sed) [#/Area]None [LPF]0-8[facility] Health SystemKetones Test strip Ql (U)Ordered By: Yung Nichols on 06-27-2024 Ketones Ql (U)NegativeNegativeUniversity Hospitals Health SystemLeukocyte esterase [Presence] in Urine by Test stripOrdered By: Yung Nichols on 66-59-9412Gvaiewwps esterase Test strip Ql (U)4+HighNegativeUniversity Hospitals Health SystemLeukocytes [#/area] in Urine sediment by Automated countOrdered By: Yung Nichols on 30-73-3790MOY Auto (Urine sed) [#/Area]20-49 [HPF]High0-4 [facility] Health SystemLeukocytes [#/volume] corrected for nucleated erythrocytes in Blood by Automated counOrdered By: Yung Nichols on 06-27-2024 WBC corrected for nucl RBC Auto (Bld) [#/Vol]7.2 10*3/uL3.8-11.6FNewark HospitalLipase [Enzymatic activity/volume] in Serum or Plasma Ordered By: Yung Nichols on 54-25-9683Lskfgu [Catalytic activity/Vol]19.0 U/L 11.0-82.0[facility] Hospitals Health SystemLymphocytes Auto (Bld) [#/Vol]Ordered By: Yung Nichols on 56-36-5728Gblqczkxurm (Bld) [#/Vol]2.0 10*3/uL1.00-4.8 [facility] Health SystemLymphocytes/100 WBC Auto (Bld)Ordered By: Yung Nichols on 63-69-0862Wcnvipadjol/100 WBC (Bld)27.4 %.[facility] SystemH Auto (RBC) [Entitic mass]Ordered By: Yung Nichols on 80-99-9399UTC (RBC) [Entitic mass]30.5 pg24.7-34.3FNewark HospitalMCHC Auto (RBC) [Mass/Vol]Ordered By: Yung Nichols on 06-24-3504LPBO (RBC) [Mass/Vol]33.3 g/dL32.0-35.0[facility] Health SystemMCV Auto (RBC) [Entitic vol]Ordered By: Yung Nichols on 11-18-3724QUQ (RBC) [Entitic vol]91.5 zJ18-886OaampudcxUniversity Hospitals Health SystemMonocyte distribution width [Entitic volume] in Blood by AutomatedOrdered By: Yung Nichols on 06-27-2024 Monocyte distribution width Auto (Bld) [Entitic vol]20.22 %High0.00-20.00 [facility] Health SystemComment on above:For adults in ED, MDW > 20.0 may be associated with a higher risk of sepsis during the first 12 hrs of hospital admissionMonocytes Auto (Bld) [#/Vol]Ordered By: Yung Nichols on 45-05-5174Yhhkorxvn (Bld) [#/Vol]0.5 10*3/uL0.0-0.8[facility] Hospitals Health SystemMonocytes/100 WBC Auto (Bld)Ordered By: Yung Nichols on 06-27-2024 Monocytes/100 WBC (Bld)6.7 %.[facility] Hospitals Health SystemMucus [Presence] in Urine by AutomatedOrdered By: Yung Nichols on 95-66-1719Uslna Auto Ql (U)4+ [LPF]AbnormalUniversity [facility] SystemNeutrophils Auto (Bld) [#/Vol] Ordered By: Yung Nichols on 94-49-7881Yvmjaycrkiv (Bld) [#/Vol]4.6 10*3/uL 1.8-7.7FNewark HospitalNeutrophils/100 WBC Auto (Bld)Ordered By: Yung Nichols on 54-75-5447Zygoapbcbdh/100 WBC (Bld)63.9 %.[facility] SystemNitrite Test strip Ql (U)Ordered By: Yung Nichols on 71-51-7720Xayeupl Ql (U)NegativeNegativeUniversity Hospitals Health SystemNo Panel InformationOrdered By: Yung Nichols on 94-71-9139Padddsryj GFR (CKD-EPI)> 60.0 mL/MinUniversity Hospitals Health SystemPharmacy Creatinine Clearance (Chem 115.39[facility] SystemNucleated erythrocytes [Presence] in Blood by Automated countOrdered By: Yung Nichols on 46-05-9863Tutqaurit RBC Auto Ql (Bld)0.2 /100{WBC}0-0.5FNewark HospitalPlatelet mean volume Auto (Bld) [Entitic vol]Ordered By: Yung Nichols on 32-26-5443Hnaqmfmp mean volume (Bld) [Entitic vol]8.0 fL6.3-10.7FNewark Hospital Platelets Auto (Bld) [#/Vol]Ordered By: Yung Nichols on 26-14-3866Ojxgdnvme (Bld) [#/Vol]201 10*3/mR695-729TtdsdysphUniversity Hospitals Health SystemPotassium [Moles/volume] in Serum or PlasmaOrdered By: Yung Nichols on 06-27-2024 Potassium [Moles/Vol]3.4 mmol/LLow3.5-5.1FNewark Hospital Protein Test strip (U) [Mass/Vol]Ordered By: Yung Nichols on 30-41-5315Aoewwrh (U) [Mass/Vol]NegativeNegativeUniversity Hospitals Health SystemProtein [Mass/volume] in Serum or PlasmaOrdered By: Yung Nichols on 80-15-4887Xnkazlw [Mass/Vol]6.4 g/dL6.4-8.9[facility] SystemRBC Auto (Bld) [#/Vol] Ordered By: Yung Nichols on 38-62-5139AXN (Bld) [#/Vol]4.32 10*6/uL3.60-5.00 [facility] Centererum or plasma albumin/globulin mass ratio Ordered By: Yung Nichols on 63-22-1139Hyvfpqt/Globulin [Mass ratio]1.9 {ratio} [facility] Centererum or plasma anion gap determinationOrdered By: Yung Nichols on 91-96-7637Cstlh gap [Moles/Vol]10.6 mmol/L6.0-15.0[facility] Centerodium [Moles/volume] in Serum or PlasmaOrdered By: Yung Nichols on 06-30-9041Ijcuyk [Moles/Vol]139 mmol/X579-844HdtmnihbpUniversity Hospitals Geauga Medical Centerpecific gravity Test strip (U) [Rel density]Ordered By: Yung Nichols on 68-52-5481Dasaikid gravity (U) [Rel density]1.0261.001-1.030[facility] SystemUrea nitrogen [Mass/volume] in Serum or PlasmaOrdered By: Yung Nichols on 73-20-0826Subj nitrogen [Mass/Vol]17 mg/dL7-25[facility] SystemUrine appearanceOrdered By: Yung Nichols on 06-27-2024 Appearance (U)ClearClearFNewark HospitalUrobilinogen Test strip (U) [Mass/Vol]Ordered By: Yung Nichols on 88-99-9984Sweozepcliji (U) [Mass/Vol]Normal mg/dLNormalUniversity Hospitals Health SystemWBC Auto (Bld) [#/Vol]Ordered By: Yung Nichols on 94-87-3788RPD (Bld) [#/Vol]7.2 10*3/uL 3.8-11.6FNewark HospitalpH Test strip (U)Ordered By: Yung Nichols on 86-59-8027zX (U)6.0 [pH]5.0-9.0[facility] SystemTBH PREG QUANT HCGon 91-17-2337KXM QUANTITATIVE<1mIU/mLNOMS HealthcareComment on above:5-50 0.2-1 WEEK 50-500 1-2 WEEKS 100-5,000 2-3 WEEKS 500-10,000 3-4 WEEKS 1,000-50,000 4-5 WEEKS 10,000-100,000 5-6 WEEKS 15,000-200,000 6-8 WEEKS 10,000-100,000 2-3 MONTHS CLINISYNCNOMS HealthcareUS PELVIS W/ TRANSVAGINALon 98-10-4249R[address] [address] Ultrasound Report Signed Patient: CHARIS ALLEN MR#: [id number] : 2000 Acct:[id number] Age/Sex: 23 / F ADM Date: 01/17/24 Loc: US Attending Dr: GUALBERTO VANN Ordering Physician: GUALBERTO VANN Date of Service: 01/17/24 Procedure(s): US pelvis w/ transvaginal Accession Number(s): [id number] cc: GUALBERTO VANN ; Diane THPAA [address] [address] Patient Name: CHARIS ALLEN MRN: [facility]:[id number] date: 2000 Sex: F Assigned Patient Location: [place] Current Patient Location: Accession/Order Number: [id number] Exam Date: 01/17/2024 17:40 Report Date: 01/18/2024 07:45 At the request of: GUALBERTO VANN Procedure: US pelvis w/ transvaginal EXAM: [...] in the cul-de-sac. Electronically authenticated by: CADEN WHITE Date: 01/18/2024 07:45 Dictated By: Caden White M.D. Signed By: 01/18/2447 DD/ TD/TT: Senior Environmental Technician:[facility]-CLINISYNCRadiology, Radiologist, - 01/18/2024 [place] [address] Ultrasound Report Signed Patient: CHARIS ALLEN MR#: [id number] : 2000 Acct:[id number] Age/Sex: 23 / F ADM Date: 01/17/24 Loc: US Attending Dr: GUALBERTO VANN Ordering Physician: GUALBERTO VANN Date of Service: 01/17/24 Procedure(s): US pelvis w/ transvaginal Accession Number(s): [id number] cc: GUALBERTO VANN ; Diane THAPA [address] [place] [id number] Patient Name: CHARIS ALLEN MRN: [id number] date: 2000 Sex: F Assigned Patient Location: [place] Current Patient Location: Accession/Order Number: [id number] Exam Date: 01/17/2024 17:40 Report Date: 01/18/2024 07:45 At the request of: GUALBERTO VANN Procedure: US pelvis w/ transvaginal EXAM: [...] in the cul-de-sac. Electronically authenticated by: CADEN WHITE Date: 01/18/2024 07:45 Dictated By: Caden White M.D. Signed By: 01/18/24 0747 DD/ 0745 TD/TT: Senior Environmental Technician: BRANDEN GómezRadiology Study observation (narrative)BRANDEN GómezUS PELVIS W/ TRANSVAGINALOrdered By: Radiologist Radiology on 74-73-3367ESTW [employer] Work Phone: cNOVkatrina [phone] Visit (PODIAM) CHARIS ALLEN ([id number]) 4 F Date Time Provider Department 12/26/23 [...] the overlying eponychium and underlying nailbed. An [place]yan anvil was used to cut the offending [...] Sign In: A Mome (more content not included)...NormalSt. Mary's [facility] 31-83-2431YTQCHbyzaj Visit (PODIAM) CHARIS ALLEN ([id number]) 4 F Date Time Provider Department 11/21/23 2:15 PM ARLET DELGADO During your visit today, we recorded the following information about you: Last Period 11/06/23 Arlet Delgado DPM 11/21/2023 3:03 PM Signed Service Date: November 21, 2023 PCP: No primary care provider on file. Last Podiatry Visit: None at [facility] The history is provided by the patient. [...] order to perform a complete physical exam, [address] was performed. This incidental service is integral [...] which included preparing to see the patient, qjxe-nl-jfki patient care, completing clinical documentation, obtaining and/or reviewing separately obtained history, performing a medically appropriate examination, counseling and educating the patient/family/caregiver, ordering medications, tests, or procedures and care veterans' coordinator (more content not included)...NormalKettering HealthA1C with Estimated Average Gluon 17-54-7039BhQ3q (Bld) [Mass fraction]5.000 %Normal4.3-5.6 %[employer] Other HbA1c (Bld) [Mass fraction]97 mg/dLNocass medical center MovieLaLa Other Alanine aminotransferase [Enzymatic activity/volume] in Serum or PlasmaOrdered By: Pérez Barcenas on 93-24-9407RJB [Catalytic activity/Vol]15 U/L7-52[facility] SystemAlbumin [Mass/volume] in Serum or Plasma by Bromocresol green (BCG) dye binding methoOrdered By: Pérez Barcenas on 14-55-7065Atvqrie BCG dye [Mass/Vol]4.3 g/dL3.5-5.7FNewark HospitalAlkaline phosphatase [Enzymatic activity/volume] in Serum or PlasmaOrdered By: Pérez Barcenas on 05-10-6128EKJ [Catalytic activity/Vol]80 U/L 34-104[facility] Health SystemAspartate aminotransferase [Enzymatic activity/volume] in Serum or PlasmaOrdered By: Pérez Barcenas on 38-82-6520DOM [Catalytic activity/Vol]14 U/A05-52DoczubpniUniversity Hospitals Health System Bilirubin.total [Mass/volume] in Serum or PlasmaOrdered By: Pérez Barcenas on 90-71-9995Rudpsfgnm [Mass/Vol]0.8 mg/dL0.3-1.0[facility] Calcium [Mass/volume] in Serum or PlasmaOrdered By: Pérez Barcenas on 11-08-2023 Calcium [Mass/Vol]9.7 mg/dL8.6-10.3FNewark HospitalCarbon dioxide, total [Moles/volume] in Serum or PlasmaOrdered By: Pérez Barcenas on 55-32-6816EZ5 [Moles/Vol]29.4 mmol/L21.0-31.0[facility] Chloride [Moles/volume] in Serum or PlasmaOrdered By: Pérez Barcenas on 11-08-2023 Chloride [Moles/Vol]105 mmol/A58-384OwjytpseyUniversity Hospitals Health SystemCholesterol [Mass/volume] in Serum or PlasmaOrdered By: Pérez Barcenas on 11-08-2023 Cholesterol [Mass/Vol]128 mg/jC657-833LxlpecevgUniversity Hospitals Health SystemComment on above:Chol less than 200 mg/dl low riskChol 201-239 mg/dl borderline riskChol 240 mg/dl and greater high riskCholesterol in LDL Calc [Mass/Vol]Ordered By: Pérez Barcenas on 84-08-4960Wfupwszpmjh in LDL [Mass/Vol]70 mg/dL0-100[facility] Health SystemComment on above:LDL ATP III CLASSIFICATIONLDL less than 100 mg/dL OptimalLDL 100-129 mg/dL Near or above sdatatfKWC044-977 mg/dL Borderline highLDL 160-189 mg/dL HighLDL greater than 189 mg/dL Very high Cholesterol in VLDL Calc [Mass/Vol]Ordered By: Pérez Barcenas on 11-08-2023 Cholesterol in VLDL [Mass/Vol]10 mg/dLUniversity Hospitals Health System Comprehensive Metabolic Panelon 90-94-2587Mbkigki [Mass/Vol]4.402118 g/dLNormal 3.5-5.7 g/dLLocqus MovieLaLa Other Bilirubin [Mass/Vol]0.6980844 mg/dLNormal0.3-1.0 mg/dL [employer] Other Calcium [Mass/Vol]9.7806694 mg/dLNormal8.6-10.3 mg/dL [employer] Other CO2 [Moles/Vol]29.16337006 mmol/UPmwbfk06.0-31.0 mmol/LNAdbongo Other Creatinine [Mass/Vol]0.79061113 mg/dLNormal0.60-1.20 mg/dLNoUpCloo Other GFR/1.73 sq M.predicted MDRD (S/P/Bld) [Vol rate/Area] mL/min/{1.73_m2}[employer] Other Potassium [Moles/Vol]4.19335701 mmol/LNormal3.5-5.1 mmol/LNAdbongo Other Protein [Mass/Vol]6.764106 g/dLNormal6.4-8.9 g/dLDesignHub Other Comprehensive Metabolic Panel2.2 g/dLDesignHub Other Creatinine [Mass/volume] in Serum or PlasmaOrdered By: Pérez Barcenas on 01-13-0771Fwalzrbyok [Mass/Vol]0.68 mg/dL0.60-1.20[facility] Health SystemGlobulin Calc (S) [Mass/Vol]Ordered By: Pérez Barcenas on 02-52-7369Wrfvxvrz (S) [Mass/Vol]2.2 g/dLUniversity Hospitals Health System Glucose [Mass/volume] in Serum or PlasmaOrdered By: Pérez Barcenas on 11-08-2023 Glucose [Mass/Vol]80 mg/cC71-897FmlsakkfgUniversity Hospitals Health SystemComment on above:ADA recommended reference rangeRandom Glucose Reference Range is dependent on time and content of last meal. Glucose of more than 200 mg/dL in a nonstressed, ambulatory subject supports the diagnosisof Diabetes Mellitus. Glucose mean value [Mass/volume] in Blood Estimated from glycated hemoglobin Ordered By: Pérez Barcenas on 86-11-6946Vtopsfk glucose Estimated from glycated hemoglobin (Bld) [Mass/Vol]97 mg/dLUniversity Hospitals Health SystemHemoglobin A1c percentageOrdered By: Pérez Barcenas on 30-16-4841UlJ3w (Bld) [Mass fraction] 5.0 %4.3-5.6FNewark HospitalComment on above:Increased risk for diabetes: 5.7 - 6.4diabetes: >6.4glycemic control for adults with diabetes: &l t;7.0Lipid Panelon 35-08-9698Smvbkbzwgfj in LDL Elph Qn70 mg/dLNormal0-100 mg/dL [employer] Other Lipid Panel54 mg/dLNormal0-149 mg/dLLocqus MovieLaLa Other Lipid Panel10 mg/dLLocqus MovieLaLa Other No Panel InformationOrdered By: Pérez Barcenas on 57-81-7880Vbqnfdnyk GFR (CKD-EPI)> 60.0 mL/MinUniversity Hospitals Health System Pharmacy Creatinine Clearance (ChemN/[facility] HospitalPotassium [Moles/volume] in Serum or PlasmaOrdered By: Pérez Barcenas on 87-85-7465Xfbbhpzns [Moles/Vol]4.3 mmol/L3.5-5.1FNewark HospitalProtein [Mass/volume] in Serum or PlasmaOrdered By: Pérez Barcenas on 35-40-2331Wrnudtc [Mass/Vol]6.5 g/dL6.4-8.9[facility] Medical Centererum or plasma albumin/globulin mass ratioOrdered By: Pérez Barcenas on 11-08-2023 Albumin/Globulin [Mass ratio]2.0 {ratio}[facility] Medical Centererum or plasma anion gap determinationOrdered By: Pérez Barcenas on 70-57-2947Edbak gap [Moles/Vol]8.9 mmol/L6.0-15.0[facility] Medical Centererum or plasma high density lipoprotein (HDL) cholesterol measurementOrdered By: Pérez Barcenas on 57-73-2626Xbtarnpxqnx in HDL [Mass/Vol]47 mg/bI52-28UxbfpzoziUniversity Hospitals Health SystemComment on above:HDL CHOL ATP-III CLASSIFICATION Cardiovascular RiskHDL > or equal to 60 mg/dL LOWHDL < 40 mg/dL HIGHSerum or plasma total cholesterol/high density lipoprotein (HDL) cholesterol mass ratOrdered By: Pérez Barcenas on 04-22-7155Qcqyuqtfrzr.total/Cholesterol in HDL [Mass ratio]2.7 {ratio}<5.0[facility] Medical Centerodium [Moles/volume] in Serum or PlasmaOrdered By: Pérez Barcenas on 44-39-4303Gglwbi [Moles/Vol]139 mmol/J917-837 [facility] Health SystemThyroid Stimulating Hormoneon 48-03-2829BTT Qn 1.09743380513 m[IU]/LNormal0.45-5.33 u[iU]/[facility] MovieLaLa Other Thyrotropin [Units/volume] in Serum or PlasmaOrdered By: Pérez Barcenas on 53-61-5555RSY Qn1.24 m[IU]/L0.45-5.33[facility] Health SystemTriglyceride [Mass/volume] in Serum or PlasmaOrdered By: Pérez Barcenas on 22-03-5225Bkkwghgdngud [Mass/Vol]54 mg/dL0-149University [facility]als Health SystemComment on above:TRIG ATP III CLASSIFICATIONTRIG less than 150 mg/dL NormalTRIG 150-199 mg/dL Borderline highTRIG 200-500 mg/dL High TRIG greater than 500 mg/dL Very highStandard traceable to the Center for Disease Co nrtrol and Prevention (CDC) test method.Urea nitrogen [Mass/volume] in Serum or PlasmaOrdered By: Pérez Barcenas on 37-47-6180Dtvj nitrogen [Mass/Vol]13 mg/dL7- [facility] Health SystemErythrocyte distribution width Auto (RBC) [Ratio]Ordered By: ERLIN Vann on 94-54-5442Zcupfyglbbx distribution width (RBC) [Ratio]14.4 %11.9-15.3FNewark HospitalHematocrit Auto (Bld) [Volume fraction]Ordered By: ERLIN Vann on 08-17-2023 Hematocrit (Bld) [Volume fraction]35.2 %34.0-46.4FNewark HospitalHemoglobin [Mass/volume] in BloodOrdered By: ERLIN Vann on 79-31-4116Fhxfuenjyh (Bld) [Mass/Vol]11.7 g/dL11.8-15.4FNewark HospitalLeukocytes [#/volume] corrected for nucleated erythrocytes in Blood by Automated counOrdered By: ERLIN Vann on 31-85-9148MBI corrected for nucl RBC Auto (Bld) [#/Vol]8.0 10*3/uL3.8-11.6FSelect Medical Specialty Hospital - TrumbullH Auto (RBC) [Entitic mass]Ordered By: ERLIN Vann on 11-58-6707DBU (RBC) [Entitic mass]29.8 pg24.7-34.3FNewark HospitalMCHC Auto (RBC) [Mass/Vol]Ordered By: ERLIN Vann on 08-17-2023 MCHC (RBC) [Mass/Vol]33.3 g/dL32.0-35.0[facility] Health SystemMCV Auto (RBC) [Entitic vol]Ordered By: ERLIN Vann on 03-54-9975WVM (RBC) [Entitic vol]89.6 zD14-607UipevvivlUniversity Hospitals Health SystemPlatelet mean volume Auto (Bld) [Entitic vol]Ordered By: ERLIN Vann on 15-88-6016Trrbrfgp mean volume (Bld) [Entitic vol]8.1 fL6.3-10.7FNewark Hospital Platelets Auto (Bld) [#/Vol]Ordered By: ERLIN Vann on 08-17-2023 Platelets (Bld) [#/Vol]186 10*3/qR151-951JcjjzathuUniversity Hospitals Health SystemRBC Auto (Bld) [#/Vol]Ordered By: ERLIN Vann on 05-41-5104VKT (Bld) [#/Vol]3.93 10*6/uL3.60-5.00[facility] Health SystemCNPNon 08-16-2023 CNPNTelephone (INTMAL) CHARIS ALLEN ([id number]) 4 F Date Time Provider Department 08/16/23 [...] calling: self Call patient at: at home [phone] (home) [phone] (cell) Was an appointment scheduled: No Closing statement: Results or non-symptom based questions: Thank you for calling [facility], your call will be returned within the [...] Fully Assessed Reason for Visit: Patient Question [7797] Prescriptions as of 08/21/2023 - Sulfacetamide Sodium-Sulfur [...] Encounter Status:Closed by YESENIA HERNÁNDEZ LPN on 08/21/23NoTogus VA Medical CenterBILIRUBIN CONJUGATED (DIRECT)on 85-57-6476MCES, CONJUGATED0.2 mg/dLNormal0.0-0.2The [facility] HospitalComment on above:Performed By: #### DBIL, CMP #### [facility] [address] [place] [address] Dr. Yvette FunkF 14(COMP METB)on 19-76-7970Rlulfkc [Mass/Vol]4.1 g/dLNormal 3.4-5.0The [facility] HospitalComment on above:Performed By: #### DBIL, CMP #### [facility] [address] [place] [address] Dr. Yvette OharaAlbumin/Globulin [Mass ratio]1.3 {ratio}NormalThe [facility] Memorial HospitalComment on above:Performed By: #### DBIL, CMP #### [facility] [address] [place] [address] Dr. Yvette Awad [Catalytic activity/Vol]122 U/LCritically oemj46-328Crd [facility] HospitalComment on above:Performed By: #### DBIL, CMP #### [facility] [address] [place] [address] Dr. Yvette Mora [Catalytic activity/Vol]38 U/VVhjzye64-46Hxu [facility] HospitalComment on above:Performed By: #### DBIL, CMP #### [facility] [address] [place] [address] Dr. Yvette Hernández gap [Moles/Vol]13.9 mmol/LNormalThe [facility] Comment on above:Performed By: #### DBIL, CMP #### [facility] [address] [place] [address] Dr. Yvette Arias [Catalytic activity/Vol]20 U/GQjessj67-82Rrs [facility] HospitalComment on above:Performed By: #### DBIL, CMP #### [facility] [address] [address] [address] Yvette OharaBilirubin [Mass/Vol]0.9 mg/dLNormal0.2-1.0The [facility] Comment on above:Performed By: #### DBIL, CMP #### [facility] [address] [place] [address] Dr. Yvette OharaCalcium [Mass/Vol]9.2 mg/dLNormal8.5-10.1The [facility] Comment on above:Performed By: #### DBIL, CMP #### [facility] [address] [place] [address] Dr. Yvette OharaChloride [Moles/Vol]107 mmol/QIdmksh88-232Htr [facility] Comment on above:Performed By: #### DBIL, CMP #### [facility] [address] [place] [address] Dr. Yvette OharaCO2 [Moles/Vol]26.9 mmol/FNlmrtf87.0-32.0The [facility] Comment on above:Performed By: #### DBIL, CMP #### [facility] [address] [place] [address] Dr. Yvette OharaCreatinine [Mass/Vol]0.87 mg/dLNormal0.55-1.02[facility]ull Memorial HospitalComment on above:Performed By: #### DBIL, CMP #### [facility] [address] [place] [address] Dr. Yvette KleinGFR-AF CHINESE>60Normal>=60The [facility] HospitalComment on above:Performed By: #### DBIL, CMP #### [facility] [address] [place] [address] Dr. Yvette KleinGFR-NON AF CHINESE>60Normal>=60The [facility] HospitalComment on above:Performed By: #### DBIL, CMP #### [facility] [address] [place] [address] Dr. Yvette OharaGlobulin (S) [Mass/Vol]3.2 g/dLNormalThe [facility] HospitalComment on above:Performed By: #### DBIL, CMP #### [facility] [address] [address] [address] Yvette OharaGlucose [Mass/Vol]141 mg/dLCritically exyv21-147Vao [facility] HospitalComment on above:Performed By: #### DBIL, CMP #### [facility] [address] [address] [address] Yvette OharaPotassium [Moles/Vol]3.8 mmol/LNormal3.5-5.1The [facility] Comment on above:Performed By: #### DBIL, CMP #### [facility] [address] [address] [address] Yvette OharaProtein [Mass/Vol]7.3 g/dLNormal6.4-8.2[facility] Comment on above:Performed By: #### DBIL, CMP #### [facility] [address] [address] [address] Yvette OharaSodium [Moles/Vol]144 mmol/UWhhyqf039-563Rhi [facility] Comment on above:Performed By: #### DBIL, CMP #### [facility] [address] [address] [address] Yvette OharaUrea nitrogen [Mass/Vol]9.0 mg/dLNormal7.0-18.0The [facility] HospitalComment on above:Performed By: #### DBIL, CMP #### [facility] [address] [address] [address] Yvette OharaUrea nitrogen/Creatinine [Mass ratio]10.3 mg/mgNormalThe [facility] HospitalComment on above:Performed By: #### DBIL, CMP #### [facility] [address] [address] [address] Yvette Chu 55-81-7897NJYLBCG LIKE GROWTH FACTOR T882UvjoZrccgBethesda North HospitalComment on above:Result Comment: Reference range: 108 [...] 10 years 85 - 526 PERFORMED AT LABMISS[facility]ULLIVANPerformed By: #### LIGF1 #### [facility], GunnisonSALIVARY CORTISOLon 73-40-8261Ihhhnauv Cortisol, MS0.021 ug/dLNormalThMarietta Osteopathic ClinicComment on above:Result Comment: This test was developed and its performance characteristics determined by [facility]. It has not been cleared or approved by the Food and Drug Administration. Reference Range: Children and Adults: 8:00a.m.: 0.025 - 0.600 Noon: <0.010 - 0.330 4:00p.m.: 0.010 - 0.200 Midnight: <0.010 - 0.090Performed By: #### CMP, JESSICA #### [facility] [address] [place] [address] Dr. Yvette OharaTESTOSTERONE, FREE,DIRECT, TOTALon 08-92-5051Eipi Testosterone(Direct)2.4 pg/mLNormal0.0-4.2[facility] HospitalComment on above: Result Comment: Performed at: BNPerformed By: #### TESTFRD #### [facility] [address] [place] [address] Dr. Yvette OharaTestosterone [Mass/Vol]41 ng/aBPrujpd99-50Kfj [facility] Comment on above:Result Comment: Performed at: CBPerformed By: #### TESTFRD #### [facility] [address] [place] [address] Dr. Yvette GonsalezEA-SULFATEon 10-82-6641MEOR-Rqwkljx552.0 ug/oSAtbbfm715.0-431.7 [facility] HospitalComment on above:Performed By: #### CMP, JESSICA #### [facility] [address] [place] [address] Dr. Yvette OharaINSULINon 19-70-9088Sefqjrn40.6 uIU/mLNormal2.6-24.9The [facility]rin[facility] Hospitalment on above:Performed By: #### CMP, JESSICA #### [facility] [address] [place] [address] Dr. Yvette OharaGLYCOHEMOGLOBIN A1Con 13-12-5576BYG RECOMMENDATIONSEE BELOWNormal The [facility] HospitalComment on above:Result Comment: ADA RECOMMENDED LIMIT 4.0 - 6.0 ADA THERAPEUTIC TARGET < 7.0 ACTION SUGGESTED > 7.0Performed By: #### A1C #### [facility] [address] [place] [address] Dr. Yvette OharaGlucose [Mass/Vol]108 mg/dLNormalThe [facility] HospitalCommunson healthcare [facility] on above:Performed By: #### A1C #### [facility] [address] [place] [address] Dr. Yvette OharaHbA1c (Bld) [Mass fraction]5.4 %Normal4.5-6.2The [facility] HospitalComment on above:Performed By: #### A1C #### [facility] [address] [place] [address] Dr. Yvette OharaPROMadhu 14(COMP METB)on 56-34-9829Piafccc [Mass/Vol]4.4 g/dLNormal 3.4-5.0The [facility] HospitalComment on above:Performed By: #### CMP, TSH, T4 #### [facility] [address] [place] [address] Dr. Yvette OharaAlbumin/Globulin [Mass ratio]1.3 {ratio}NormalThe [facility] on above:Performed By: #### CMP, TSH, T4 #### [facility] [address] [place] [address] Dr. Yvette GuerreroP [Catalytic activity/Vol]133 U/LCritically kdvp02-381Kjn [facility] on above:Performed By: #### CMP, TSH, T4 #### [facility] [address] [place] [address] Dr. Yilan ChangALT [Catalytic activity/Vol]32 U/SHyzoif52-17Uma [facility] HospitalComment on above:Performed By: #### CMP, TSH, T4 #### [facility] [address] [place] [address] Dr. Yvette OharaAnion gap [Moles/Vol]12.9 mmol/LNormalTrumbull Memorial Hospital Comment on above:Performed By: #### CMP, TSH, T4 #### [facility] [address] [place] [address] Dr. Yvette OharaAST [Catalytic activity/Vol]18 U/ASznfrn73-70Evm [facility] HospitalComment on above:Performed By: #### CMP, TSH, T4 #### [facility] [address] [place] [address] Dr. Yvette OharaBilirubin [Mass/Vol]1.2 mg/dLCritically high0.2-1.0The [facility] HospitalComment on above:Performed By: #### CMP, TSH, T4 #### [facility] [address] [place] [address] Dr. Yvette OharaCalcium [Mass/Vol]9.5 mg/dLNormal8.5-10.1[facility] Comment on above:Performed By: #### CMP, TSH, T4 #### [facility] [address] [place] [address] Dr. Yvette OharaChloride [Moles/Vol]106 mmol/IMeuzvx37-210Ffv [facility] Comment on above:Performed By: #### CMP, TSH, T4 #### [facility] [address] [place] [address] Dr. Yvette OharaCO2 [Moles/Vol]28.0 mmol/OTyxlbo07.0-32.0[facility] Comment on above:Performed By: #### CMP, TSH, T4 #### [facility] [address] [place] [address] Dr. Yvette OharaCreatinine [Mass/Vol]0.85 mg/dLNormal0.55-1.02The [facility] HospitalComment on above:Performed By: #### CMP, TSH, T4 #### [facility] [address] [address] [address] Yvette KleinGFR-AF CHINESE>60Normal>=60The [facility] HospitalComment on above:Performed By: #### CMP, TSH, T4 #### [facility] [address] [address] [address] Yvette KleinGFR-NON AF CHINESE>60Normal>=60The [facility] HospitalComment on above:Performed By: #### CMP, TSH, T4 #### [facility] [address] [address] [address] Yvette OharaGlobulin (S) [Mass/Vol]3.3 g/dLNormalThe [facility] HospitalComment on above:Performed By: #### CMP, TSH, T4 #### [facility] [address] [address] [address] Yvette OharaGlucose [Mass/Vol]98 mg/eHUftzar52-988DlmTrumbull Memorial Hospital Comment on above:Performed By: #### CMP, TSH, T4 #### [facility] [address] [address] [address] Yvette OharaPotassium [Moles/Vol]3.9 mmol/LNormal3.5-5.1[facility] Comment on above:Performed By: #### CMP, TSH, T4 #### [facility] [address] [address] [address] Yvette OharaProtein [Mass/Vol]7.7 g/dLNormal6.4-8.2[facility] Comment on above:Performed By: #### CMP, TSH, T4 #### [facility] [address] [address] [address] Yvette OharaSodium [Moles/Vol]143 mmol/YTortaq554-013Jbk [facility] Comment on above:Performed By: #### CMP, TSH, T4 #### [facility] [address] [address] [address] Yvette OharaUrea nitrogen [Mass/Vol]13.0 mg/dLNormal7.0-18.0The [facility] HospitalComment on above:Performed By: #### CMP, TSH, T4 #### [facility] [address] [address] [address] Yvette OharaUrea nitrogen/Creatinine [Mass ratio]15.3 mg/mgNormalThe [facility] HospitalCommunson healthcare [facility] on above:Performed By: #### CMP, TSH, T4 #### [facility] [address] [address] [address] Yvette OharaT4on 32-29-7495J0 [Mass/Vol]5.90 ug/dLNormal4.80-13.90The [facility] HospitalCommunson [facility] on above:Performed By: #### CMP, TSH, T4 #### [facility] [address] [place] [address] Dr. Yvette LopezHogarima 04-61-3581HDU2.277 uIU/mLNormal0.358-3.740The [facility] on above:Performed By: #### CMP, TSH, T4 #### [facility] [address] [place] [address] Dr. Yvette Ohara Brain WO and W contrast [place] 05-17-0648LPFRSCCHZM: Low-lying cerebellar tonsils with slight crowding at the foramen magnum. Age-appropriate unremarkable remaining brain without acute findings or abnormal enhancement. CSF flow study, as detailed. Senior Environmental Technician: FANTA Transcribe Date/Time: Nov 16 2022 9:19A Dictated by : ALIYA CROCKER MD This examination was interpreted and the report reviewed and electronically signed by: ALIYA CROCKER MD on Nov 16 2022 9:23AM [facility] DIVISION OF RADIOLOGY* * *Final Report* * * DATE OF EXAM: Nov 16 2022 8:55AM [facility] 0295 - MRI BRAIN WO/W [...] soft tissues are unremarkable. DIVISION OF RADIOLOGYProvider, [facility] - 11/16/2022 * * *Final Report* * * DATE OF EXAM: Nov 16 2022 8:55AM [address] 0295 - MRI BRAIN WO/W IVCON [...] abnormal enhancement. CSF flow study, as detailed. Senior Environmental Technician: FANTA Transcribe Date/Time: Nov 16 2022 9:19A Dictated by : ALIYA CROCKER MD This examination was interpreted and the report reviewed and electronically signed by: ALIYA CROCKER MD on Nov 16 2022 9:23AM EST [facility] (n[facility]ative)[facility] Brain WO and W contrast IVOrdered By: Ccf Provider on [id number] ClinicPR Abdomen/Pelvis w/o Contraston 20-37-7796ZB Abdomen/Pelvis w/o ContrastCLINICAL HISTORY: Right lower quadrant [...] and signed by Mayo Jose on 10/31/2022 1542NormalNortnorthern cochise community hospitaln [facility] SpecialistAMYLASEon 37-61-1103Zvcqbhm [Catalytic activity/Vol]32 U/RUdrlvg98-179Mbp [facility] HospitalComment on above:Performed By: #### CMP, JESSICA #### [facility] [address] [place] [address] Dr. Yvette Patel AUTO DIFFon 28-86-1808WIZK #0.0 103/ulNormal0.0-0.1The [facility] HospitalComment on above:Performed By: #### CBC #### [facility] [address] [address] [address] Yvette Gipsonsophils/100 WBC (Bld)0.4 %Normal0.2-2.0[facility] Comment on above:Performed By: #### CBC #### [facility] [address] [place] [address] Dr. Yvette Braxton #0.0 103/ulNormal0.0-0.7The [facility] HospitalComment on above: Performed By: #### CBC #### [facility] [address] [address] [address] Yvette Kleinosinophils/100 WBC (Bld)0.4 %Critically low0.9-7.0The [facility] HospitalComment on above:Performed By: #### CBC #### [facility] [address] [place] [address] Dr. Yvette Kleinrythrocyte distribution width (RBC) [Ratio]12.1 %Yeinlc53.0-15.0 The [facility] HospitalComment on above:Performed By: #### CBC #### [facility] [address] [address] [address] Yvette Mccallatocrit (Bld) [Volume fraction]50.0 %Critically high36.0-48.0 The [facility] HospitalComment on above:Performed By: #### CBC #### [facility] [address] [place] [address] Dr. Yvette OharaHemoglobin (Bld) [Mass/Vol]15.1 g/tBBtygxp31.0-16.0The [facility] HospitalComment on above:Performed By: #### CBC #### [facility] [address] [place] [address] Dr. Yvette Dias #0.02 10e3/ulNormal0.00-0.03The [facility] HospitalCommunson healthcare [facility] on above:Performed By: #### CBC #### [facility] [address] [place] [address] Dr. Yvette Dias %0.3 %Normal0.0-0.5The [facility] HospitalComment on above: Performed By: #### CBC #### [facility] [address] [place] [address] Dr. Yvette Pena #2.1 103/ulNormal1.2-3.8The [facility] HospitalCommunson healthcare [facility] on above:Performed By: #### CBC #### [facility] [address] [place] [address] Dr. Yvette Hamlinmphocytes/100 WBC (Bld)28.7 %Rtrnuz69.5-60.0The [facility] on above:Performed By: #### CBC #### [facility] [address] [place] [address] Dr. Yvette ZamoraUAL DIFF REQNONormalThe [facility] HospitalComment on above: Performed By: #### CBC #### [facility] [address] [place] [address] Dr. Yvette Romo (RBC) [Entitic mass]29.4 mvLbjrsx71.7-34.0The [facility] HospitalComment on above:Performed By: #### CBC #### [facility] [address] [address] [address] Yvette MolinaHC (RBC) [Mass/Vol]30.2 g/gNRufwkn30.9-35.2The [facility] HospitalComment on above:Performed By: #### CBC #### [facility] [address] [place] [address] Dr. Yvette MolinaV (RBC) [Entitic vol]97.5 wTHbkjib78.0-99.0The [facility] HospitalComment on above:Performed By: #### CBC #### [facility] [address] [place] [address] Dr. Yvette Blakely #0.6 103/ulNormal0.3-0.8The [facility] HospitalComment on above:Performed By: #### CBC #### [facility] [address] [place] [address] Dr. Yvette De Lunaocytes/100 WBC (Bld)7.8 %Normal1.7-12.0[facility] Comment on above:Performed By: #### CBC #### [facility] [address] [place] [address] Dr. Yvette Tobar #4.5 103/ulNormal1.4-6.5The [facility] HospitalComment on above:Performed By: #### CBC #### [facility] [address] [place] [address] Dr. Yvette Straussutrophils/100 WBC (Bld)62.4 %Watqsc57.0-75.0The [facility] HospitalComment on above:Performed By: #### CBC #### [facility] [address] [place] [address] Dr. Yvette Villagranlet mean volume (Bld) [Entitic vol]10.3 fLNormal9.5-13.5The [facility] HospitalComment on above:Performed By: #### CBC #### [facility] [address] [place] [address] Dr. Yvette OharaPLT242 103/poMzbkmg801-304Uhp [facility] HospitalComment on above: Performed By: #### CBC #### [facility] [address] [place] [address] Dr. Yvette OharaRBC5.13 106/ulNormal4.20-5.40The [facility] HospitalComment on above:Performed By: #### CBC #### [facility] [address] [place] [address] Dr. Yvette OharaWBC7.2 103/ulNormal4.0-11.0The [facility] HospitalComment on above: Performed By: #### CBC #### [facility] [address] [place] [address] Dr. Yvette OharaPROF 14(COMP METB)on 73-15-9473Jyygohu [Mass/Vol]4.1 g/dLNormal 3.4-5.0The [facility] Hospitalment on above:Performed By: #### CMP, JESSICA #### [facility] [address] [place] [address] Dr. Yvette OharaAlbumin/Globulin [Mass ratio]1.3 {ratio}NormalThe [facility] HospitalComment on above:Performed By: #### CMP, JESSICA #### [facility] [address] [place] [address] Dr. Yvette Awad [Catalytic activity/Vol]117 U/LCritically hlgb43-741Xaj [facility] on above:Performed By: #### CMP, JESSICA #### [facility] [address] [place] [address] Dr. Yvette Mora [Catalytic activity/Vol]58 U/COcxyxd93-14Wzt [facility]rin[facility] Hospitalment on above:Performed By: #### CMP, JESSICA #### [facility] [address] [place] [address] Dr. Yvette Hernández gap [Moles/Vol]14.6 mmol/LNormalThe [facility] on above:Performed By: #### CMP, JESSICA #### [facility] [address] [place] [address] Dr. Yvette Arias [Catalytic activity/Vol]27 U/HJojovu35-98Grp [facility] HospitalComment on above:Performed By: #### CMP, JESSICA #### [facility] [address] [address] [address] Yvette OharaBilirubin [Mass/Vol]1.4 mg/dLCritically high0.2-1.0The [facility] HospitalComment on above:Performed By: #### CMP, JESSICA #### [facility] [address] [address] [address] Yvette OharaCalcium [Mass/Vol]9.1 mg/dLNormal8.5-10.1The [facility] Comment on above:Performed By: #### CMP, JESSICA #### [facility] [address] [place] [address] Dr. Yvette OharaChloride [Moles/Vol]104 mmol/VCzazbj15-335Dlg [facility] Comment on above:Performed By: #### CMP, JESSICA #### [facility] [address] [place] [address] Dr. Yvette OharaCO2 [Moles/Vol]26.0 mmol/ALgppnm86.0-32.0The [facility] Comment on above:Performed By: #### CMP, JESSICA #### [facility] [address] [place] [address] Dr. Yvette OharaCreatinine [Mass/Vol]0.92 mg/dLNormal0.55-1.02The [facility] HospitalComment on above:Performed By: #### CMP, JESSICA #### [facility] [address] [place] [address] Dr. Yvette KleinGFR-AF CHINESE>60Normal>=60The [facility] HospitalComment on above:Performed By: #### CMP, JESSICA #### [facility] [address] [place] [address] Dr. Yvette KleinGFR-NON AF CHINESE>60Normal>=60The [facility] HospitalComment on above:Performed By: #### CMP, JESSICA #### [facility] [address] [place] [address] Dr. Yvette OharaGlobulin (S) [Mass/Vol]3.1 g/dLNormalThe [facility]ipley HospitalComment on above:Performed By: #### CMP, JESSICA #### [facility] [address] [place] [address] Dr. Yvette OharaGlucose [Mass/Vol]94 mg/cWMlgcjw62-922ZsyTrumbull Memorial Hospital Comment on above:Performed By: #### CMP, JESSICA #### [facility] [address] [place] [address] Dr. Yvette OharaPotassium [Moles/Vol]3.6 mmol/LNormal3.5-5.1[facility] Comment on above:Performed By: #### CMP, JESSICA #### [facility] [address] [place] [address] Dr. Yvette OharaProtein [Mass/Vol]7.2 g/dLNormal6.4-8.2[facility] Comment on above:Performed By: #### CMP, JESSICA #### [facility] [address] [place] [address] Dr. Yvette Teaguedium [Moles/Vol]141 mmol/NDhscsz948-201HkbTrumbull Memorial Hospital Comment on above:Performed By: #### CMP, JESSICA #### [facility] [address] [place] [address] Dr. Yvette OharaUrea nitrogen [Mass/Vol]13.0 mg/dLNormal7.0-18.0Tr[facility]ull Memorial HospitalComment on above:Performed By: #### CMP, JESSICA #### [facility] [address] [place] [address] Dr. Yvette OharaUrea nitrogen/Creatinine [Mass ratio]14.1 mg/mgNoOur Lady of Mercy HospitalComment on above:Performed By: #### CMP, JESSICA #### [facility] [address] [place] [address] Dr. 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 [facility] today for evaluation of bilateral breast [...] MRI: No Colonoscopy: Yes diagnostic, [facility]; results - negative RISK FACTORS [...] may be repeated afte (more content not included)...NormalFairlawn Rehabilitation HospitalT4 Free SerPl-mCncon 52-12-2478Itgq T4 [Mass/Vol]0.8 ng/dLLow0.9-1.7FLawrence Memorial Hospital Comment on above:Order Comment: Specimen Type: BLOOD SPECIMEN Ordering Facility: [facility] Address: [address] [place] [id number] By: #### 3024-7 #### [facility] CLIA [id number] [address] [facility] [id number] [place] [address] SerPl-aCncon 10-13-2022 TSH Qn2.150 m[IU]/LNormal0.510-4.300Fairlawn Rehabilitation HospitalComment on above:Order Comment: Specimen Type: BLOOD SPECIMEN Ordering Facility: [facility] Address: [address] [place] [id number] Comment: If the patient is , TSH reference range varies by gestational period: First Trimester (weeks 9-12): 0.180-2.990 mIU/L Second Trimester: 0.110-3.980 mIU/L Third Trimester: 0.480-4.710 mIU/L Ángel Cervantes et al. A Practical Approach for the Verifications and Determination of Site- and Trimester-Specific Reference Intervals for Thyroid Function tests in . Thyroid, 2019:29:3:412-420.Prem E, et al. 2017 Guidelines of the [place] Thyroid Association for the Diagnosis and Management of Thyroid Disease during and the . Thyroid, 2017:27:3:315-389. Reference ranges were not locally established for this patient's age group. The normal values are based on the following source: Marlin W, Josh V. Reference Ranges for Adults and Children: Pre-analytical Considerations. Adis DiagnosticsPerformed By: #### 3016-3 #### [facility] CLIA [id number] [address] [place] [address] [place] DZOHLOWAOUZ-JeY-0 (COVID-19) RNA JANET+probe Ql (Resp)on [id number]-CoV-2 (COVID-19) RNA JANET+probe Ql (Unsp spec)Negative [employer] Other mr Brain WO and W contrast [...] including diffusion and gradient echo images. 2-D ioxg-cq-jnhzpw MRV and postcontrast MRV of the brain. [...] and enhancement indicating patency. DIVISION OF RADIOLOGYProvider, [facility] - 12/29/2021 * * *Final Report* * [...] including diffusion and gradient echo images. 2-D ediv-zg-xfjzdb MRV and postcontrast MRV of the brain. [...] No evidence of dural venous sinus thrombosis. Senior Environmental Technician: PSCB Transcribe Date/Time: Dec 29 2021 12:34P Dictated by : MILTON WAGNER MD This examination was interpreted and the report reviewed and electronically signed by: MILTON WAGNER MD on Dec 29 2021 12:40PM [facility] Head veins WO and W contrast [place] 12-29-2021* * *Final Report* * * DATE OF EXAM: Dec 29 2021 12:13PM [facility] 0336 - MRV BRAIN WO/W IVCON / PROCEDURE REASON: multiple diagnoses * * * * Physician Interpretation * * * * EXAMINATION: MRI BRAIN WO/W IVCON, MRV BRAIN WO/W IVCON HISTORY: [place] headache. Headache after Covid infection. TECHNIQUE: Routine brain MRI protocol without and with contrast including diffusion and gradient echo images. 2-D hgwz-tb-jqykag MRV and postcontrast MRV of the brain. [...] and enhancement indicating patency. DIVISION OF RADIOLOGYProvider, [facility] - 12/29/2021 * * *Final Report* * [...] including diffusion and gradient echo images. 2-D bdna-li-rikibw MRV and postcontrast MRV of the brain. [...] No evidence of dural venous sinus thrombosis. Senior Environmental Technician: [facility] Transcribe Date/Time: Dec 29 2021 12:34P Dictated by : MILTON WAGNER MD This examination was interpreted and the report reviewed and electronically signed by: MILTON WAGNER MD on Dec 29 2021 12:40PM EST [facility] Panel Informationon 27-31-7705OQHKNAGUUK: MRI BRAIN: No evidence of an acute intracranial process. Low-lying cerebellar tonsils. MRV BRAIN: No evidence of dural venous sinus thrombosis. Senior Environmental Technician: [facility] Transcribe Date/Time: Dec 29 2021 12:34P Dictated by : MILTON WAGNER MD This examination was interpreted and the report reviewed and electronically signed by: MILTON WAGNER MD on Dec 29 2021 12:40PM [facility] DIVISION OF RADIOLOGYRadiology Study observation (narrative)[facility] Panel InformationOrdered By: Ccf Provider on 32-40-2277Rdfztignk ClinicANKLE RIGHT 3 Son 04-93-0746RNVTM RIGHT 3 SUniUniversity Hospitals Parma Medical CenterDepartment of Gwetirilh[address] [place] [id number] Patien t Name: CHARIS ALLEN : 2000Sex: FAge: Race: WhiteMRN: [id number]. Location: EMERPatient Status: EVisit #: [id number] Date: 06/13/2017 5:40:00 PMCompleted Date: 06/13/2017 05:54 PMRequesting Provider: SREEKANTH JOHNSON Attending Provider: SREEKANTH JOHNSON Report Copy To: Signs & Symptoms: Pain ( specify Location)History: Patient history not availableComments: R/O FXExam: ANKLE RIGHT 3 VWSAccession #: [id number] ==ANKLE RIGHT 3 VWS 06/13/2017 5:54 PM [...] Electronically signed by:Manjinder Ramires M.D.. Transcribed by: [email or web address], User Resident: Electronically Signed by: MANJINDER RAMIRES @ 06/13/2017 06:44 [facility] HospitalComment on above:Order Comment: R/O FX Vital Signs Date TimeVital SignValuePerforming GixoqyjrtVjzqhsjs44-74-8596 12:47-0500Body mass index (BMI) [Ratio]27.22 kg/p2YncbkcGualberto Vann MD Work Phone: LoopItRusk Rehabilitation CenterNprrxcvgtm62-84-0909 12:47-0500Body mueqli78.19 kgGualberto Vann MD Work Phone: [facility] CenterZrfctkrroa96-95-0692 12:47-0500Diastolic blood pquevsdt11 mm[Hg]Gualberto Vann MD Work Phone: [facility] CenterRceinovgjk90-99-7784 12:47-0500Systolic blood mm[Hg]Gualberto Vann MD Work Phone: noRusk Rehabilitation CenterVnuwoqszts14-36-5355 10:39-0400Body ooyjmr440.7 cmGevalarie Thapa DO Work Phone: noRusk Rehabilitation CenterRhujdkchbm22-93-5813 10:39-0400Body mass index (BMI) [Ratio]25.7 kg/w0Xlvcojvalarie Thapa DO Work Phone: noRusk Rehabilitation CenterIqliosqici08-08-1865 10:39-0400Body temperature 97.81 [degF]Pete Thapa DO Work Phone: EZRusk Rehabilitation CenterYudtmqolzf42-95-3225 10:39-0400Body duexvo35.66 kgGeorayush Thapa DO Work Phone: noRusk Rehabilitation CenterTaaipdoxwu88-89-3608 10:39-0400Diastolic blood mm[Hg]Pete Thapa DO Work Phone: noRusk Rehabilitation CenterBkussvvfwu51-10-3993 10:39-0400Heart rate98 /min Pete Thapa DO Work Phone: noRusk Rehabilitation CenterPrttqejmpi62-91-2189 10:39-2762BaN7% (BldA) [Mass fraction]99 %Pete Thapa DO Work Phone: noRusk Rehabilitation CenterBmlzjrmvqf75-93-1616 10:39-0400Systolic blood upjxvahm903 mm[Hg]Pete Thapa DO Work Phone: noRusk Rehabilitation CenterPxxdgkflgo04-55-7475 08:58-0400Body ykhamq453.7 Garrick Vann MD Work Phone: [facility] CenterMkqbvsblhr44-83-7596 08:58-0400Body mass index (BMI) [Ratio]25.39 kg/s3SvimdeGualberto Vann MD Work Phone: [facility] CenterLjayslxosz24-42-7559 08:58-0400Body hxumsf93.75 kgGualberto Vann MD Work Phone: [facility] CenterGcusmjjeis67-35-5311 08:58-0400Diastolic blood yfygltaw33 mm[Hg]Gualberto Vann MD Work Phone: noRusk Rehabilitation CenterFdbgvteeid38-26-1337 08:58-0400Systolic blood pdpejpcr600 mm[Hg]Gualberto Vann MD Work Phone: noRusk Rehabilitation CenterRlzypzomyk37-50-8791 21:50-0400Diastolic blood cyareoqb81 mm[Hg]Katie Thapa DO Work Phone: 1(419)[address] [place], [place] 7163005-13-2025 21:50-0400 Heart rate84 /Jahaira. Wesly Thapa DO Work Phone: 1(423)[address] [place], [place] 7163005-13-2025 21:50-0400 Respiratory rate20 /Jahaira. Wesly Thapa DO Work Phone: 1(827)[address] [place], [place] 7163005-13-2025 21:50-0400 SaO2% (BldA) [Mass fraction]98 %Katie Thapa DO Work Phone: 1(724)[address] [place], [place] 7163005-13-2025 21:50-0400 Systolic blood zmvedpux452 mm[Hg]Katie Thapa DO Work Phone: 1(468)[address] [place], [place] 7163005-13-2025 19:45-0400 Body nwyholxzkfu78.4 [degF]Katie Thapa DO Work Phone: 1(301)[address] [place], [place] 7163005-13-2025 15:20-0400 Body tiqffw448.64 cmG. Wesly Thapa DO Work Phone: 1(926)[address] [place], [place] 7163005-13-2025 15:20-0400 Body umtkpe36.8 kgG. Wesly Thapa DO Work Phone: 1(506)[address] [place], [place] 7163004-05-2025 19:22-0400 Heart rate72 /Telly Garcia MD Work Phone: [facility] CenterVmtwmp91-89-1794 19:22-0400 Respiratory rate18 /Telly Garcia MD Work Phone: [facility] CenterYqyaff81-64-5434 19:22-8945HiW7% (BldA) [Mass fraction]100 %Milton Garcia MD Work Phone: [facility] CenterAwtlgc16-03-4080 19:20-0400Diastolic blood rxculfts86 mm[Hg]Milton Garcia MD Work Phone: [facility] CenterStedvt25-43-6539 19:20-0400Systolic blood qgevnfia111 mm[Hg]Milton Garcia MD Work Phone: Bon [facility] [email or web address].com [facility] CenterFiixxh49-44-7158 18:30-0400Body kefznr769.2 Pam Garcia MD Work Phone: Bon [facility] [email or web address] [facility] CenterJzsuhk54-21-7924 18:30-0400Body mass index (BMI) [Ratio]24.53 kg/o6AccvtrmsbytMilton Garcia MD Work Phone: Bon [facility] Hospitalfashionandyou.com [facility] CenterSlutsn74-87-9842 18:30-0400Body kfrqkchlcro82.01 [degF]Milton Garcia MD Work Phone: Bon [facility] Hospitalfashionandyou.com [facility] CenterUxvwhi18-19-7856 18:30-0400Body ohyure31.03 kgMilton Garcia MD Work Phone: Bon [facility]02-22-2025 23:39-0500Body .2 cmRohit Rob MD Work Phone: Bon [facility]02-22-2025 23:39-0500Body mass index (BMI) [Ratio]23.63 kg/z3LiltfeRohit Rob MD Work Phone: Bon [facility] [email or web address].com [facility] CenterPrqkpe93-35-8223 23:39-0500Body lkqmpozruer34.59 [degF]Rohit Rob MD Work Phone: Bon [facility]02-22-2025 23:39-0500Body .45 kgRohit Rob MD Work Phone: Bon [facility] [email or web address].com [facility] CenterCawciv87-50-6718 23:39-0500Diastolic blood svnasyvg06 mm[Hg]Rohit Rob MD Work Phone: Bon [facility] [email or web address] [place] [facility] CenterSvvols04-88-9569 23:39-0500Heart rate97 /Bita Rob MD Work Phone: Bon [facility]02-22-2025 23:39-0500 Respiratory rate16 /Bita Rob MD Work Phone: Bon [facility]02-22-2025 23:39-1355SaR6% (BldA) [Mass fraction]100 %Rohit Rob MD Work Phone: Bon [facility]02-22-2025 23:39-0500Systolic blood cobokqjv393 mm[Hg]Rohit Rob MD Work Phone: Bon [facility]02-08-2025 02:37-0500Diastolic blood iwlkpxpc53 mm[Hg]Akiko Acosta MD Work Phone: Vfl [facility]02-08-2025 02:37-0500Heart rate70 /minAkiko Acosta MD Work Phone: [phone] [facility]02-08-2025 02:37-0500 Respiratory rate13 /minAkiko Acosta MD Work Phone: [phone] [facility]02-08-2025 02:37-6101SeN7% (BldA) [Mass fraction]100 %Akiko Acosta MD Work Phone: Wdw [facility]02-08-2025 02:37-0500Systolic blood mm[Hg]Akiko Acosta MD Work Phone: Yqn [facility]02-08-2025 00:53-0500Body yuicoq368.6 cmRbethi Michelle SANON Work Phone: [phone] [facility]02-08-2025 00:53-0500Body mass index (BMI) [Ratio]24.28 kg/m2Akiko Acosta MD Work Phone: Bon [facility]02-08-2025 00:53-0500Body giqpmc30.22 kgAkiko Acosta MD Work Phone: Eca [facility]02-08-2025 00:51-0500Body ayrcohzsadu80.59 [degF]Akiko Acosta MD Work Phone: Rne [facility]01-27-2025 13:35-0500Body odslde460.2 cmQuynyuliya-Catie Vu DO Work Phone: [facility]01-27-2025 13:35-0500Body mass index (BMI) [Ratio]23.56 kg/n0Zgdkr-Mtb Vu DO Work Phone: [facility]01-27-2025 13:35-0500Body fymxbvjgbko44.1 [degF]Osbaldo-Nhu Vu DO Work Phone: [facility]01-27-2025 13:35-0500Body esheei41.22 kgQuynyuliya-Catie Vu DO Work Phone: [facility]01-15-2025 15:48-0500Body mass index (BMI) [Ratio]24.28 kg/c7BuznjmGualberto Vann MD Work Phone: [facility] CenterCtxwwcadgo03-53-4319 15:48-0500Body .31 kgGualberto Vann MD Work Phone: [facility] CenterHzahyfaqjp04-02-0318 15:48-0500Diastolic blood mm[Hg]Gualberto Vann MD Work Phone: [facility] CenterZipunntfou37-09-5851 15:48-0500Systolic blood mm[Hg]Gualberto Vann MD Work Phone: [facility] CenterYrykxxokgl55-93-2861 13:50-0500Body biudqr564.2 cmGeorayush Singhan DO Work Phone: [facility] CenterEdgbxrewar44-41-7000 13:50-0500Body mass index (BMI) [Ratio]23.65 kg/x6Zyozse Kaftan DO Work Phone: noR[facility] CenterIctawsuzic79-97-3629 13:50-0500Body temperature 97.11 [degF]Pete Thapa DO Work Phone: noR[facility] CenterWblpydrthh79-91-5194 13:50-0500Body yuotue74.49 kgGeorayush Singhan DO Work Phone: [facility] CenterYapzgyganc13-41-9079 13:50-0500Diastolic blood paoshykj84 mm[Hg]Pete Thapa DO Work Phone: noR[facility] CenterGlovzomeda81-87-3733 13:50-0500Heart rate75 /min Pete Thapa DO Work Phone: no[facility] CenterDfmkmnfrrz04-88-1819 13:50-2740LhE6% (BldA) [Mass fraction]99 %Pete Thapa DO Work Phone: no[facility] CenterQupwpyuqgw24-73-3772 13:50-0500Systolic blood yrncobqk890 mm[Hg]Pete Thapa DO Work Phone: noR[facility] CenterNqqvsumufa93-72-6471 10:34-0500Body cklrmu446.6 cmQuynh-Catie Vu DO Work Phone: [facility] [employer] Rerlnq79-03-7043 10:34-0500Body mass index (BMI) [Ratio]23.38 kg/j2Ttbac-Qkv Vu DO Work Phone: [facility] [employer] Nupkce03-43-5614 10:34-0500Body izuiadvfbhx01.59 [degF]Osbaldo-Catie Vu DO Work Phone: [facility] HospitalInter[facility] Tlmsih59-34-6606 10:34-0500Body raocfl33.68 kgQuynh-Catie Vu DO Work Phone: [facility] [employer] Ygggvu83-21-2341 16:03-0500Body qsxbuo627.6 cmMich Verde MD Work Phone: [facility] HospitalIntermedia Kttefr18-77-4523 16:03-0500Body mass index (BMI) [Ratio]24.37 kg/z8LcemeitMich Verde MD Work Phone: [facility] HospitalEpicForce12-03-2024 16:03-0500Body tnkihr02.49 kgMich Verde MD Work Phone: [facility] HospitalEpicForce12-03-2024 16:03-0500 Respiratory rate18 /minMich Verde MD Work Phone: [facility]11-12-2024 14:49-0500Body wdtyow541.[address] [place], [place] 3861011-12-2024 14:49-0500Body mass index (BMI) [Ratio]22.11 kg/e1Hjddp [address] [place], [place] 3861011-12-2024 14:49-0500Body .[address] [place], [place] 3861011-05-2024 14:14-0500Body mass index (BMI) [Ratio]23.81 kg/y1JcydidGualberto Vann MD Work Phone: [facility] CenterHsbficluuh28-11-1597 14:14-0500Body mkyzuy36.95 kgGualberto Vann MD Work Phone: [facility] CenterEfmxznxrfz14-25-4214 14:14-0500Diastolic blood qapxgvsl99 mm[Hg]Gualberto Vann MD Work Phone: [facility] CenterOevsbinepc94-90-5108 14:14-0500Systolic blood oacclbcz597 mm[Hg]Gualberto Vann MD Work Phone: [facility] CenterCrzgwndxoh28-58-6511 10:10-0400Body .6 cmQuynh-Catie Vu DO Work Phone: [facility]10-30-2024 10:10-0400Body mass index (BMI) [Ratio]24.82 kg/k1Llltt-Sva Vu DO Work Phone: [facility]10-30-2024 10:10-0400Body ydnocssuslc73.2 [degF]Osbaldo-Catie Vu DO Work Phone: [facility]10-30-2024 10:10-0400Body zfjlfa63.76 kgQuynh-Catie Vu DO Work Phone: [facility]10-09-2024 14:48-0400Body vqsaju831.2 Amy MCDANIEL Work Phone: no[facility] CenterVodpbzixmo51-78-1912 14:48-0400Body mass index (BMI) [Ratio]24.18 kg/m2Demian German PA Work Phone: no[facility] CenterKsofxrlffc70-93-8708 14:48-0400Body temperature 97.7 [degF]Demian German PA Work Phone: no[facility] CenterXmpwecmhgc15-65-3114 14:48-0400Body gekodo90.03 kgRydenisse German PA Work Phone: no[facility] CenterZzymmagniv73-21-2954 14:48-0400Diastolic blood fnbaawxk38 mm[Hg]Demian German PA Work Phone: [facility] CenterRvzeratkyz72-74-2590 14:48-0400Heart rate70 /min Demian German PA Work Phone: no[facility] CenterLlmkdjswrr77-14-3515 14:48-5849LkB1% (BldA) [Mass fraction]99 %Demian German PA Work Phone: no[facility] CenterHusczqefku89-84-2353 14:48-0400Systolic blood ifbxtmsz020 mm[Hg]Demian German PA Work Phone: noR[facility] CenterJpblokqmyp87-43-5027 15:38-0400Body cpnqaa152.2 cmMich Verde MD Work Phone: [facility] HospitalEnerG210-07-2024 15:38-0400Body mass index (BMI) [Ratio]23.65 kg/a3RdlryajMich Verde MD Work Phone: [facility] HospitalIntermedia Csedaw64-68-6849 15:38-0400Body yqnrol20.49 kgMich Verde MD Work Phone: [facility] HospitalIntermedia Arwduv72-59-3925 10:56-0400Body fwjpii344.2 cmSadia Rai PA-C Work Phone: [facility] HospitalEnerG209-25-2024 10:56-0400Body mass index (BMI) [Ratio]23.65 kg/v6MizwxSadia Rai PA-C Work Phone: [facility] HospitalBlazent Qlizpm30-34-7559 10:56-0400Body hbwryx92.49 kgSadia Rai PA-C Work Phone: [facility]09-20-2024 02:48-0400Diastolic blood qqqcoctj59 mm[Hg]DO Katie Thapa Work Phone: 1(137)[address] [place], [place] 7163009-20-2024 02:48-0400 Heart rate85 /minDO Katie Thapa Work Phone: 1(456)[address] [place], [place] 7163009-20-2024 02:48-0400 Respiratory rate18 /minDO Katie Thapa Work Phone: 1(449)[address] [place], [place] 7163009-20-2024 02:48-0400 SaO2% (BldA) [Mass fraction]100 %DO Katie Thapa Work Phone: 1(344)[address] [place], [place] 7163009-20-2024 02:48-0400 Systolic blood mm[Hg]DO Katie Thapa Work Phone: 1(764)[address] [place], [place] 7163009-19-2024 22:17-0400 Body mbdopk804.18 cmDO Katie Thpaa Work Phone: 1(490)[address] [place], [place] 7163009-19-2024 22:17-0400 Body ehdsiyvbnpk07.9 [degF]DO Katie Thapa Work Phone: 1(434)[address] [place], [place] 7163009-19-2024 22:17-0400 Body vksrre14.75 kgDO Katie Thapa Work Phone: 1(193)[address] [place], [place] 7163008-13-2024 13:37-0400 Body mcplyh024.[address]08-13-2024 13:37-0400Body mass index (BMI) [Ratio]24.31 kg/v3Ffjow[address]08-13-2024 13:37-0400Body crqfavvsmgd31.2 [degF][address]08-13-2024 13:37-0400Body ofecaf02.[address]08-13-2024 13:37-0400 Diastolic blood whujogjv23 mm[Hg]Met[address]08-13-2024 13:37-0400Heart rate83 /minMetro [address] [place], [place] 5879408-13-2024 13:37-0400 Respiratory rate18 /minMetro [address] [place], [place] 5879408-13-2024 13:37-9046BcJ4% (BldA) [Mass fraction]100 %[address]08-13-2024 13:37-0400 Systolic blood vywiuifc722 mm[Hg][address]06-10-2024 14:24-0400Body smexus969.2 cmMich Verde MD Work Phone: [facility]06-10-2024 14:24-0400Body mass index (BMI) [Ratio]24.12 kg/k5IcacayzMich Verde MD Work Phone: [facility]06-10-2024 14:24-0400Body ujkqvotqsgp89.4 [degF]Mich Verde MD Work Phone: [facility]06-10-2024 14:24-0400Body kfkwad45.85 kgMich Verde MD Work Phone: [facility]05-29-2024 16:25-0400Body .6 cmAnabelala [place]usky PA-C Work Phone: [facility]05-29-2024 16:25-0400Body mass index (BMI) [Ratio]24.86 kg/d7Zvslx Fredi PA-C Work Phone: [facility]05-29-2024 16:25-0400Body rfmcwzwqzui87.6 [degF]Sadia Sandusky PA-C Work Phone: [facility]05-29-2024 16:25-0400Body kexxpd04.85 kgMarla Sandusky PA-C Work Phone: [facility]03-12-2024 12:47-0400Body .6 cmMarla Sandusky PA-C Work Phone: [facility]03-12-2024 12:47-0400Body mass index (BMI) [Ratio]26.21 kg/v9BvyboSadia Rai PA-C Work Phone: [facility]03-12-2024 12:47-0400Body ahjnzsvmlew49.4 [degF]Sadia Rai PAAnamaria Work Phone: [facility]03-12-2024 12:47-0400Body vzrehl49.66 kgSadia MCDAINEL-Baldomero Work Phone: [facility]01-31-2024 07:45-0500Body .64 cmAtom Barcenas Other [employer] Other 01-31-2024 07:45-0500Body mass index (BMI) [Ratio] 28.57 kg/y6PbaxpdPérez Barcenas Other [employer] Other 01-31-2024 07:45-0500Body diakof10.29 kgFanimarylou Barcenas Other [employer] Other 01-31-2024 07:45-0500Diastolic blood htufzjmf64 mm[Hg] Pérez Barcenas Other [employer] Other 01-31-2024 07:45-0500Respiratory rate18 /minPérez Barcenas Other [employer] Other 01-31-2024 07:45-7185AsH8% (BldA) [Mass fraction]98 % Pérez Barcenas Other [employer] Other 01-31-2024 07:45-0500Systolic blood niaagzfe259 mm[Hg] Pérez Barcenas Other [place] [employer] Other [id number] 21:29-0500Body vywizznbaez57.1 [degF]DO Katie Thapa Work Phone: 1(696)[address] [place], [place] 7163011-09-2023 21:29-0500 Diastolic blood goupcckx72 mm[Hg]DO Katie Thapa Work Phone: 1(179)[address] [place], [place] 7163011-09-2023 21:29-0500 Heart rate83 /Hue Thapa Work Phone: 1(811)[address] [place], [place] 7163011-09-2023 21:29-0500 Respiratory rate16 /ShellO Katie Thapa Work Phone: 1(218)[address] [place], [place] 7163011-09-2023 21:29-0500 SaO2% (BldA) [Mass fraction]98 %DO Katie Thapa Work Phone: 1(575)[address] [place], [place] 7163011-09-2023 21:29-0500 Systolic blood yuhvqfqt566 mm[Hg]DO Katie Thapa Work Phone: 1(134)[address] [place], [place] 7163011-09-2023 18:23-0500 Body yilfwc854.64 cmDO Katie Thapa Work Phone: 1(032)[address] [place], [place] 7163011-09-2023 18:23-0500 Body mass index (BMI) [Ratio]29 kg/m2DO Katie Thapa Work Phone: 1(097)[address] [place], [place] 7163011-09-2023 18:23-0500 Body .64 kgDO Katie Thapa Work Phone: 1(512)[address] [place], [place] 7163011-09-2023 18:18-0500 Inhaled oxygen flow rate10 L/ShellO Katie Thapa Work Phone: 5(568)[address] [place], [place] 7163010-26-2023 18:45-0400 Diastolic blood mtibxmyg39 mm[Hg]DO Katie Thapa Work Phone: 1(909)[address] [place], [place] 7163010-26-2023 18:45-0400 Heart rate98 /Hue Thapa Work Phone: 1(354)[address] [place], [place] 7163010-26-2023 18:45-0400 Respiratory rate16 /ShellO Katie Thapa Work Phone: 1(686)[address] [place], [place] 7163010-26-2023 18:45-0400 SaO2% (BldA) [Mass fraction]98 %DO Katie Thpaa Work Phone: 1(305)[address] [place], [place] 7163010-26-2023 18:45-0400 Systolic blood vvvsnolb239 mm[Hg]DO Katie Thapa Work Phone: 1(144)[address] [place], [place] 7163010-26-2023 17:28-0400 Inhaled oxygen flow rate6 L/Hue Thapa Work Phone: 1(895)[address] [place], [place] 7163010-26-2023 17:13-0400 Body jhoqjanshrq30 [degF]DO Katie Thapa Work Phone: 1(572)[address] [place], [place] 7163010-26-2023 16:26-0400 Body .64 cmDO Katie Thapa Work Phone: 1(504)[address] [place], [place] 7163010-26-2023 16:26-0400 Body mass index (BMI) [Ratio]29 kg/m2DO Katie Thapa Work Phone: 6(756)[address] [place], [place] 7163010-26-2023 16:26-0400 Body yerrnb80.64 kgDO Katie Thapa Work Phone: 1(829)[address] [place], [place] 7163009-01-2023 15:15-0400 Body .18 cmPamela Brooklyn Other [employer] Other 09-01-2023 15:15-0400Body mass index (BMI) [Ratio] 29.97 kg/i5Itxzuj Brooklyn Other [facility] [employer] Other 09-01-2023 15:15-0400Body wwgeowraslb63.7 [degF]Arti Barahona Other [employer] Other 09-01-2023 15:15-0400Body .82 kgArti Barahona Other [employer] Other 09-01-2023 15:15-0400Diastolic blood mm[Hg] Arti Barahona Other [employer] Other 09-01-2023 15:15-0400Respiratory rate18 /minArti Barahona Other [employer] Other 09-01-2023 15:15-3946ItF7% (BldA) [Mass fraction]99 % Arti Barahona Other [employer] Other 09-01-2023 15:15-0400Systolic blood pcxmtoho047 mm[Hg] Arti Barahona Other [employer] Other 08-24-2023 09:06-0400Body emmcjp418.6 Felipe Alcaraz MD Work Phone: [facility]08-24-2023 09:06-0400Body kgbkne57.81 kgFortino Alcaraz MD Work Phone: [facility]06-27-2023 15:33-0400Body uruuck21.[address] Work Phone: [facility]02-06-2023 11:32-0500Body washyi534.6 cmStepsaulo Sood MD Work Phone: [facility]02-06-2023 11:32-0500Body .72 kgStepsaulo Sood MD Work Phone: [facility]02-06-2023 11:32-0500Diastolic blood iburajdw29 mm[Hg]Sreekanth Samples Work Phone: [facility]02-06-2023 11:32-0500Heart rate85 /min Sreekanth Samples Work Phone: [facility]02-06-2023 11:32-6289RcM2% (BldA) [Mass fraction]100 %Sreekanth Samples Work Phone: [facility]02-06-2023 11:32-0500Systolic blood agogatdt750 mm[Hg]Sreekanth Samples Work Phone: [facility]10-27-2022 13:03-0400Heart rate92 /min Lul Mcbride MD Work Phone: [facility]10-27-2022 13:03-2118RsM6% (BldA) [Mass fraction]100 %Lul Mcbride MD Work Phone: [facility]09-16-2022 18:35-0400Body uttbfh634.18 cmPeggy Mendoza Other [employer] Other 09-16-2022 18:35-0400Body mass index (BMI) [Ratio] 29.75 kg/w0Mdrhl Mendoza Other [employer] Other 09-16-2022 18:35-0400Body zecuoivddfn97.3 [degF]Zully Mendoza Other [employer] Other 09-16-2022 18:35-0400Body nukguw86.18 kgPeggy Mendoza Other [employer] Other 09-16-2022 18:35-0400Respiratory rate18 /minPeggy Reji Other [employer] Other 09-16-2022 18:35-9657BxP5% (BldA) [Mass fraction]97 % [facility] Other [facility] [employer] Other 03-24-2022 08:11-0400Diastolic blood mm[Hg] Sreekanth Sood MD Work Phone: [facility]03-24-2022 08:11-0400Heart rate76 /min Sreekanth Sood MD Work Phone: [facility]03-24-2022 08:11-0400Systolic blood saxgpagt104 mm[Hg]Sreekanth Sood MD Work Phone: [facility] AdministrationNEGATED: Highlighted rowBMI (Body Mass Index)[facility] CtrNEGATED: Highlighted rowBody TemperatureAvita Health System [facility] Hospital CtrNEGATED: Highlighted rowBody weightAvita Health System [facility] Hospital CtrNEGATED: Highlighted rowBP DiastolicAvita Health System [facility] Hospital CtrNEGATED: Highlighted rowBP SystolicAvita Health System [facility] Hospital CtrNEGATED: Highlighted rowHeight [facility] CtrNEGATED: Highlighted rowPulse (Heart Rate)[facility] CtrNEGATED: Highlighted rowPulse OximetryAvita Health System [facility] Hospital CtrNEGATED: Highlighted row Respiratory RateReneMiami Valley Hospital Ctr Encounters Encounter DateEncounter TypeCare ProviderFacilityStart: 08-18-2025 End: 83-56-8670Relriw flowsShelly Vann MD Work Phone: NO Jean OBGYNStart: 08-18-2025 End: 48-43-8305[place] flowshSelly Vann MD Work Phone: no Jean OBGYNStart: 08-18-2025 End: 90-89-7897Lejlpwu encounter statusGualberto Vann MD Work Phone: NOCT HealthcareStart: 08-18-2025 End: 16-31-8962Ljqoxdws flow Tamika Vann MD Work Phone: [facility] [place] OBGYNComment on above:GA: 96c6bIocre: 08-18-2025 End: 17-35-5956qpneyikjejHBTZUB P JONESNot AvailableStart: 08-05-2025 End: 66-70-5950Ztdoha Jeremiah Vann MD Work Phone: [facility] [place] OBGYNComment on above:Acute vaginitis (Primary Dx); Acute vulvitisStart: 07-31-2025 End: 40-57-3861gzeqtygkkvAGZTIE JONESNot AvailableStart: 07-31-2025 End: 95-14-3641Tytnqz Rosemary Vann MD Work Phone: [facility] [place] OBGYNStart: 07-31-2025 End: 59-21-9493Lpkphh Rosemary Vnan MD Work Phone: [facility] [place] OBGYNStart: 07-31-2025 End: 51-59-4085Yhosdvrnc Result EncounterGeneric External Data ProviderNOMS External Department UnsolicitedStart: 07-31-2025 End: 46-34-2486Sgtkgo outpatient visit 10 Iza Vann MD Work Phone: [facility] [place] OBGYNComment on above:9 weeks gestation of ([facility] (Primary Dx); Vaginal burning; Vaginal irritation; Vaginal itching; Nonintractable headache, unspecified chronicity pattern, unspecified headache type; Vaginitis and vulvovaginitis; Cervicitis and endocervicitis; SpottingStart: 07-31-2025 End: 27-56-1492eygawabffgUNMYTC P JONESNot AvailableStart: 07-30-2025 End: 77-33-7950Ojnqzd Jeremiah Vann MD Work Phone: [facility] [place] OBGYNComment on above:Urinary tract infection without hematuria, site unspecified (Primary Dx)Start: 07-18-2025 End: 62-24-1640ndddxyziluDHVLAE JONESNot AvailableStart: 07-18-2025 End: 67-45-8426Uzjlzdau flow sheetNoms Sws Ob NurseNOMS Jean OBGYNComment on above:GA: 9z2xArzjl: 07-17-2025 End: 04-46-7345Fdottjoqm Result EncounterGualberto Vann MD Work Phone: noms External Department UnsolicitedStart: 07-17-2025 End: 79-12-9699Vqkwvfbns Result EncounterGualberto Vann MD Work Phone: noms External Department UnsolicitedStart: 07-15-2025 End: 65-47-1152Szuqok OnlyGualberto Vann MD Work Phone: noms External Department UnsolicitedStart: 07-05-2025 End: 72-79-6050Buhebpozl Result EncounterGeneric External Data ProviderNOMS External Department UnsolicitedStart: 07-05-2025 End: 83-45-7433Vodzccmah Result EncounterGeneric External Data ProviderNOMS External Department UnsolicitedStart: 07-04-2025 End: 06-35-4479Rnhtaqoxv encounterJennifer SimmonsProMedica Physicians NeuroSurgeryStart: 07-03-2025 End: 47-17-3694Qmkhtgphh Result EncounterGeneric External Data ProviderNOMS External Department UnsolicitedStart: 07-03-2025 End: 89-75-9560Fjoigrnbr Result EncounterGeneric External Data ProviderNOMS External Department UnsolicitedStart: 07-03-2025 End: 49-78-0851Kiecexwal encounterElizehra Raphael Neurology, A Department of [facility] Centertart: 06-13-2025 End: 64-71-9947Tcwgcq flowsJocelin Thapa DO Work Phone: [facility] 230Start: 06-13-2025 End: 94-12-0108Dfmeki flowsJocelin Thapa DO Work Phone: [facility] 230Start: 06-13-2025 End: 18-63-9249Xvmwfi outpatient visit 15 minutesGevalarie Thapa DO Work Phone: no[facility] 230Comment on above: Major depressive disorder, single episode, mild ; Acne vulgaris; Attention deficit hyperactivity disorder (ADHD), combined typeStart: 06-13-2025 End: 29-41-5990lztwpbdedpDVCPBW Dagoberto FRANCISCOluis fernando AvailableStart: 06-11-2025 End: 12-58-4634Rmuxqc Jeremiah Vann MD Work Phone: noms [place] OBGYNComment on above:Urinary tract infection without hematuria, site unspecified (Primary Dx)Start: 06-10-2025 End: 11-74-6198Npdkyt Jeremiah Vann MD Work Phone: noms External Department UnsolicitedStart: 06-10-2025 End: 10-02-4436Dmltio outpatient visit 10 minutesGualberto Vann MD Work Phone: [facility] Jean OBGYNComment on above:Chiari malformation type I (HCC) (Primary Dx); Amenorrhea; Menorrhagia with irregular cycle; Excessive bleeding in premenopausal period; History of miscarriage; Vaginal burning; Vaginal itching; Vaginal irritationStart: 06-10-2025 End: 51-15-0909rnwwavhiouFKRPXR P JONESNot AvailableStart: 06-06-2025 End: 02-30-8082bxpywgrtalPKPPRD JONESNot AvailableStart: 04-17-2025 End: 03-74-3493Ijqkdnqde Result EncounterGeneric External Data ProviderNOMS External Department UnsolicitedStart: 04-17-2025 End: 64-90-2747Xpshpofny Result EncounterGeneric External Data ProviderNOMS External Department UnsolicitedStart: 04-17-2025 End: 36-30-7306jyvrkajbatODia Thapa DO Work Phone: [facility] Work Phone: Start: 04-17-2025 End: 88-21-1766Cvvyylfk ReferredDaakosua White MD-LAB [facility] Start: 03-30-2025 End: 22-49-7010HitcjkOsbytgpJim Vazquez APRN-CN Work Phone: [facility]/GynecologyComment on above:MiscarriageStart: 03-19-2025 End: 1308LugpulRbmnbx E Baker MD Work Phone: DermatologyComment on above:Refill RequestStart: 73-62-6390jfdeokwxqeTYAIADK [facility] PPGStart: 02-26-2025 End: 23-66-7550vypofzjqzzQLWQKX R KAFTAN [facility] HospitalStart: 02-22-2025 End: 39-19-9201ygxwrnrzejFRQKFT JONESMercy Willard HospitalStart: 02-22-2025 End: 93-09-4808Bobllwuega hospital visit by Jerald Thapa DO Work Phone: mwhZ LaboratoryStart: 02-18-2025 End: 64-41-6227Mkloxgnlu department patient visitG. Wesly Thapa DO Work Phone: [facility]-Emergency Room Work Phone: Start: 02-15-2025 End: 23-59-9855AdwngkEqbdew R Kaftan DO Work Phone: [facility] 230Comment on above:Attention deficit hyperactivity disorder (ADHD), combined type ([facility])Start: 01-15-2025 End: 63-10-6109DgfpecOdoozAster Gomez LPN Work Phone: [facility] 230Comment on above:Attention deficit hyperactivity disorder (ADHD), combined type ([facility])Start: 01-11-2025 End: 76-45-1560Iryfefzfd department patient visitChcristy Garcia MD Work Phone: [facility] Emergency DepartmentComment on above: Vertigo (Primary Dx)Start: 01-07-2025 End: 12-06-5294JutxpsOraonk E Baker MD Work Phone: DermatologyComment on above:Refill RequestStart: 01-07-2025 End: 08-26-3639IdruvjQbqxae E Baker MD Work Phone: DermatologyComment on above:Refill RequestStart: 12-13-2024 End: 91-49-8611Gyyqulqos department patient visitGEORAYUSH THAPA [facility] HospitalStart: 11-30-2024 End: 27-55-8690Gtnstrzro department patient visitRohit Rob MD Work Phone: [facility] Emergency DepartmentComment on above: Threatened miscarriage in early (Primary Dx)Start: 11-29-2024 End: 78-50-1350Ermffsemz Result EncounterGeneric External Data ProviderNOMS External Department UnsolicitedStart: 11-29-2024 End: 12-39-6348Lywatundm Result EncounterGeneric External Data ProviderNOMS External Department UnsolicitedStart: 11-22-2024 End: 40-01-4150Tbtftkpet encounterGeorayush Thapa DO Work Phone: [facility] FM 230Comment on above:Med RefillStart: 11-16-2024 End: 39-85-3958Ckozkqfwv department patient visitAkiko Acosta MD Work Phone: [facility] Emergency DepartmentComment on above: Acute gastroenteritis (Primary Dx)Start: 11-04-2024 End: 51-61-3115Oshhpjq encounter procedureQuyn-[facility] DO Work Phone: [facility] ENTComment on above:Lesion of tongue (Primary Dx)Start: 11-04-2024 End: 28-18-1936wsziwzutsuHDCIX [facility] HospitalStart: 10-28-2024 End: 54-63-6632Tdjbkb OnlyGualberto Vnan MD Work Phone: [facility] OBComment on above:Acute vaginitis (Primary Dx)Start: 10-23-2024 End: 66-05-0458Joevlj outpatient visit 15 minutesGualberto Vann MD Work Phone: [facility] OBComment on above:Acute vaginitis (Primary Dx); Vaginal burning; Vaginal itching; Vaginal discharge; Vaginal odor; AmenorrheaStart: 10-23-2024 End: 02-00-9845orhobjdqhmJFWFMK P JONESNot AvailableStart: 10-21-2024 End: 72-08-1729Swciyi flowsheetGevalarie R Alanis DO Work Phone: [facility] FM 230Start: 10-21-2024 End: 86-58-1027Etiaby flowsheetGeorge R Geethaftan DO Work Phone: [facility] FM 230Start: 10-21-2024 End: 77-70-3323wxwldhjximANMJRM R KAFTANNot AvailableStart: 10-21-2024 End: 84-55-7707Hmafil outpatient visit 15 minutesGeorayush R Alanis DO Work Phone: [facility] FM 230Comment on above:Attention deficit hyperactivity disorder (ADHD), combined type (CMS/HCC)Start: 09-18-2024 End: 50-52-6890LiqztaIihhzAster Gomez LPN Work Phone: [facility] FM 230Comment on above:Attention deficit hyperactivity disorder (ADHD), combined type ([facility]/HCC)Start: 09-12-2024 End: 10-96-3331GiqavfWyihcu E Baker MD Work Phone: DermatologyComment on above:Refill RequestStart: 09-11-2024 End: 47-54-4007zwkcjinaexNWYMV-[facility]INOPro[facility] Pedraza HospitalStart: 09-11-2024 End: 01-73-8384Wtgvuca encounter procedureQuyn-[facility] Vu DO Work Phone: [facility] - ENTComment on above:Lesion of tongue (Primary Dx)Start: 09-10-2024 End: 30-02-8798Rsedxq outpatient visit 15 minutesMich Verde MD Work Phone: [facility] Physicians Ear, Nose and ThroatComment on above:Postop check (Primary Dx)Start: 96-41-1485Ffodgdkvt for examination of ears and hearing without abnormal findingsMICSamaritan [facility] Ambulatory PPGStart: 09-10-2024 End: 16-02-7160Gwruduwd SupportPpbp Ent Audio [address] [place] [address] Physicians Ear, Nose and ThroatComment on above:Hearing exam without abnormal findings (Primary Dx) Start: 09-10-2024 End: 02-19-1088Gczhhhh encounter statusPp[address] Work Phone: Start: 09-04-2024 End: 03-96-2363Bjdhpuhug encounterJessica MarquiseMcLaren Lapeer Region - ENTStart: 09-03-2024 End: 21-77-5639Xhrqwi OnlyQuynh-Catie Vu DO Work Phone: [facility] - ENTComment on above:Tongue swelling (Primary Dx)Start: 08-29-2024 End: 26-81-4764Tcgfdsuuf encounterQuynh-Catie Vu DO Work Phone: [facility] - ENTStart: 08-27-2024 End: 00-02-3438Vigsiidvgp and management of inpatientDAVID B ZUCKERKing's Daughters Medical Center [facility] HospitalStart: 08-27-2024 End: 93-86-8039Ztokcdujwf and management of inpatientQUYNH-CATIE VUKing's Daughters Medical Center [place] HospitalStart: 08-20-2024 End: 89-92-3178Dwhmqdmydk and management of inpatientGEORGE R ALAINS JRKing's Daughters Medical Center [place] HospitalStart: 08-20-2024 End: 60-48-1523Mcomauqyz to [facility] Phone Call Provider 3 [facility] On [facility]: 08-17-2024 End: 50-60-7080Lyocbf Jeremiah Vann MD Work Phone: [facility] SWS OBComment on above:Vaginitis due to Trichomonas (Primary Dx)Start: 08-16-2024 End: 11-78-0416OmsorqWbro M Myers PA Work Phone: [facility] FM 230Comment on above:Attention deficit hyperactivity disorder (ADHD), combined type ([facility]/HCC)Start: 08-13-2024 End: 28-52-9999Oplsbhq encounter statusGualberto Vann MD Work Phone: noMS HealthcareStart: 08-13-2024 End: 67-38-9793Lozocvdn preventive med est patient 18-39 yrsGualberto Vann MD Work Phone: noms SWS OBComment on above:Screening for malignant neoplasm of cervix; Encounter for gynecological examination without abnormal finding; Anxiety, generalized ([facility]); Vaginal dischargeStart: 08-07-2024 End: 44-64-8234Mziqwuxwl encounterQuKnoxville Hospital and Clinics DO Work Phone: ProEncisionar Physicians Ear, Nose and ThroatStart: 08-07-2024 End: 24-80-1484pyllsisvsxJMDQTHealthAlliance [facility] Ambulatory PPGStart: 08-07-2024 End: 17-98-9218Oreideq encounter procedureQuKnoxville Hospital and Clinics DO Work Phone: [facility] Physicians Ear, Nose and ThroatComment on above:Chronic throat pain (Primary Dx); Odynophagia; Tongue lesion; Post-nasal drip; Allergic rhinitis, unspecified seasonality, unspecified triggerStart: 07-25-2024 End: 29-50-9995paipxnbvcfSSONQPO M DEBARRFacility:[facility] Start: 07-25-2024 End: 32-40-1130Iurrvom encounter procedureCoedita Delgado DPM Work Phone: PodiatryComment on above:Onychomycosis (Primary Dx); Tinea pedis, unspecified lateralityStart: 07-17-2024 End: 11-14-0531Fiobob outpatient visit 15 minutesDemian MCDANIEL Work Phone: [facility] SWS FM 230Comment on above:Attention deficit hyperactivity disorder (ADHD), combined type ([facility])Start: 07-17-2024 End: 91-67-5061Oderbagzx encounterJennifer SimmonsProMedica Physicians NeuroSurgeryStart: 07-15-2024 End: 05-11-0600Ogtlnu follow up visit related to original pxMich Verde MD Work Phone: [facility] Physicians Ear, Nose and ThroatComment on above:Postop check (Primary Dx)Start: 07-15-2024 End: 00-11-7556bcsrquqiumQWYDZLD [facility] Ambulatory PPGStart: 07-10-2024 End: 59-72-4627gjnlgjniojPSGJEMary Rutan Hospitaltart: 07-03-2024 End: 54-00-3207Iuhypivje Result EncounterGualberto Vann MD Work Phone: noms External Department UnsolicitedStart: 07-03-2024 End: 67-67-4439Hyciobxqj Result EncounterGualberto Vann MD Work Phone: noms External Department UnsolicitedStart: 07-03-2024 End: 91-48-3053Ekzvhp outpatient visit 10 [facility] Centerkurt Rai PA-C Work Phone: [facility] Physicians Ear, Nose and ThroatComment on above:Chronic throat pain (Primary Dx); Odynophagia; Adenoid hypertrophyStart: 07-03-2024 End: 47-69-6622xjkuxbfakzDINKRSt. [facility] Ambulatory PPGStart: 07-01-2024 End: 84-02-8522Okqdcqivw Result EncounterGeneric External Data ProviderNOMS External Department UnsolicitedStart: 07-01-2024 End: 70-80-9175Yasayyztn Result EncounterGeneric External Data ProviderNOMS External Department UnsolicitedStart: 06-27-2024 End: 06-99-4819Cpicedcde department patient visitDO Katie Thapa Work Phone: [facility]-Emergency Room Work Phone: Start: 06-24-2024 End: 07-30-3841Dgixjqtzk Result EncounterGeneric External Data ProviderNOMS External Department UnsolicitedStart: 06-24-2024 End: 07-84-2971Sqowdzxoy Result EncounterGeneric External Data ProviderNOMS External Department UnsolicitedStart: 06-17-2024 End: 85-33-7960BrkggkJqxktGm Gomez LPN Work Phone: [facility] 230Comment on above:Attention deficit hyperactivity disorder (ADHD), combined type ([facility])Start: 06-04-2024 End: 04-16-7227Sjokznrokp and management of inpatientSTANLEY A MATOSProMedica Duarte HospitalStart: 06-04-2024 End: 47-29-8459Cjpftgufjb and management of inpatientMICWICKENBURG REGIONAL HOSPITALL Hugh [facility] HospitalStart: 05-21-2024 End: 54-56-1534qaioudlskaHMLTMSQ [facility] HospitalStart: 05-21-2024 End: 27-15-0741Alswhza encounter procedureMetro Pat Provider 4[facility] On [facility] BeacheswayComment on above:Dysfunction of both eustachian tubes (Primary Dx)Start: 03-18-2024 End: 35-12-3926Xsavmd outpatient visit 25 minutesMich Verde MD Work Phone: [facility] Physicians Ear, Nose and ThroatComment on above:Dysfunction of both eustachian tubes (Primary Dx); Hearing loss of right ear, unspecified hearing loss type; Otomycosis- right ear; Dysfunction of right eustachian tube; Acute right otitis mediaStart: 03-18-2024 End: 96-48-3976bcmgbqpngrDULLEKRKindred Hospital Ambulatory PPGStart: 03-07-2024 End: 34-77-6716Fffssd OnlySadia Rai PA-C Work Phone: [facility] Physicians Ear, Nose and ThroatStart: 03-06-2024 End: 05-18-3552kxwxtwfobtMKPXT D CARLISLEUniversity Hospitals Parma [facility] Ambulatory PPGStart: 03-06-2024 End: 86-54-6550Iolffq outpatient visit 10 minutesSadia Rai PA-C Work Phone: [facility] Physicians Ear, Nose and ThroatComment on above:Dysfunction of both eustachian tubes (Primary Dx); Otomycosis- right ear; Hearing loss of right ear, unspecified hearing loss typeStart: 02-05-2024 End: 89-93-1049Yrdowygpf encounterKilebron Ramos Physicians Ear, Nose and ThroatStart: 01-18-2024 End: 33-34-5295Zmiobkyxy Result EncounterGualberto Vann MD Work Phone: NOL[facility] External Department UnsolicitedStart: 01-18-2024 End: 62-50-3709Pxkaofupg Result EncounterGualberto Vann MD Work Phone: noms External Department UnsolicitedStart: 12-26-2023 End: 60-81-0883kyggoeuneiPFPFGKA M DEBARRFacility:[facility] Start: 12-26-2023 End: 12-36-2214Loxvtzj encounter procedureCollmanfred Delgado DPM Work Phone: PodiatryComment on above:Onychomycosis (Primary Dx); Ingrown toenail; Toe pain, bilateral; Tinea pedis, unspecified lateralityStart: 16-44-4447pyondjretfNonacr E Baker MD Work Phone: DermatologyComment on above:AnceStart: 12-19-2023 End: 21-09-3590Bxmysv outpatient visit 10 minutesSadia Rai PA-C Work Phone: [facility] Ear, Nose and ThroatComment on above:Otomycosis- right ear (Primary Dx); Dysfunction of both eustachian tubes; Hearing loss of right ear, unspecified hearing loss typeStart: 11-21-2023 End: 79-77-6245rhjgrcgkliMDONRedqrgne:[facility] Hospitaltart: 11-21-2023 End: 94-34-0544Rdoaiim encounter procedureCoedita Delgado DPM Work Phone: PodiatryComment on above:Onychomycosis (Primary Dx); Ingrown toenail; Toe pain, bilateral; Medication monitoring encounterStart: 11-09-2023 End: 05-37-7730dnqfiovgrhRgwbmp Smith Other [employer] Other Start: 68-59-1572Qeamowncq by computer [facility] ClinicStart: 67-72-5070Rnzwvsliu encounterUnm Children'S Hospitalmarylou [facility] ClinicStart: 75-20-2131Ckqivxavl therapyFanimarylou [facility] ClinicStart: 25-26-7717Wvvrugtta encounterUnm Children'S Hospitalmarylou [facility] ClinicStart: 94-95-3314Qtdxnngays RecurringDO Katie Thapa Work Phone: [facility]-Weight Management Work Phone: Start: 11-08-2023 End: 06-17-1569truivxaugePUClaritza Thapa Work Phone: noUpCloo Other Start: 11-08-2023 End: 29-87-8937Wugmbnx encounter Everett Thapa Work Phone: [facility]-Lab [place] Work Phone: Start: 09-23-2023 End: 76-40-2430gozhptphxvSdykm Keller Other noLocqus [employer] Other Start: 04-80-1114Iniotqw encounter Jailyn Pham [facility] ClydeStart: 41-27-3799Lufexmq encounter Everett Thapa Work Phone: [facility]-Start: 08-17-2023 End: 52-68-2931Vsbnsxfvz to same day surgery Jeramie Thapa Work Phone: [facility]-Surgery Center [facility] CenterStart: 08-17-2023 End: 41-95-8275vdwxjqdtrqLN G. Robert Kaftan Work Phone: [facility] Work Phone: Start: 11-81-2338Wbigeolta Shanique Alcaraz MD Work Phone: Internal MedicineComment on above:Patient Question Start: 08-16-2023 End: 71-04-6593hyjuksioveHwbtkm E Baker MD Work Phone: DermatologyComment on above:Acne vulgaris (Primary Dx) Start: 08-16-2023 End: 87-83-3566Tptodvaoeiaw consultation with patientAnish Levin MD Work Phone: [facility] CENTERStart: 08-03-2023 End: 52-71-6004Wljxtlieq to same day surgery Jeramie Thapa Work Phone: [facility] Ctr-Surgery Center [facility] CampusStart: 08-03-2023 End: 51-93-1403eugrfswpcaXD G. Robert Kaftan Work Phone: [facility] Work Phone: Start: 98-25-0137Nalziwqjn encounterAnish Levin MD Work Phone: DermatologyComment on above:Medication QuestionStart: 21-57-7246xqndpdkstdEgffsw E Baker MD Work Phone: DermatologyComment on above:AnceStart: 06-09-2023 End: 09-21-8972bgisbcsxknTxpgqs Dymond Other [facility] [employer] Other Start: 05-70-6945Gzpuxv outpatient visit 15 minutes Arti [facility] ClydeStart: 62-41-2968Cvbkekhrz Shanique Alcaraz MD Work Phone: Plastic SurgeryComment on above:Opened In ErrorStart: 50-33-1048Fvqvrlpmc Sahnique Alcaraz MD Work Phone: Plastic SurgeryStart: 06-01-2023 End: 72-45-6704Pboajtu encounter Crow Alcaraz MD Work Phone: Plastic SurgeryComment on above:Mastodynia; MacromastiaStart: 17-06-1311oltonwdelcPuke Tiago SALES Work Phone: General SurgeryComment on above:SurgeeyStart: 04-04-2023 End: 06-54-3986srzcwwmjexYyfzcuo Crtalic RD Work Phone: Nutrition TherapyComment on above:Dietary counseling and surveillance (Primary Dx); Class 1 obesity with body mass index (BMI) of 30.0 to 30.9 in adult, unspecified obesity type, unspecified whether serious comorbidity presentStart: 04-04-2023 End: 18-17-9140Qdhrfteyjgop consultation with patientNatmarlen Crtalic RD Work Phone: [facility]ENTERCStart: 01-03-2023 End: 15-19-7360tjfcdocownYW Diane THAPAFacility:H3Dvhxa: 12-30-2022 ambulatorySAPEOPLES HOSPITAL MARYNewark [facility] HospitalStart: 57-89-1735Olakhucci encounter Anish Levin MD Work Phone: DermatologyComment on above:Patient QuestionStart: 12-16-2022 End: 54-76-9986zwliasmbheZ. ROBERT KAFTANAviLourdes Specialty Hospital HospitalStart: 12-15-2022 End: 42-56-3969ehehwylqggRS DOCTOR MISCFacility:T6Ecult: 32-41-2499bivyxpqgun JOE ANSelect At Belleville HospitalStart: 63-39-7809aqmrsqclsgZspmvu W RICE Facility:EU AileenkStart: 68-20-7344tiiplqqwmnBtfxul W BRADENTONFacility: Jean Start: 31-13-0625jwzmimsqtfLijgr Ann Zavodnik RNNURSE ON CALLComment on above:Pt would like a neurology 2nd opinion appt.Start: 02-20-9921Bxqphkwyh encounter Sreekanth Sood MD Work Phone: NeurologyComment on above:Patient UpdateStart: 11-16-2022 End: 87-61-1406Brqmnxbbzq hospital visit by physicianderrell [facility] Mercedes (1.5t) Work Phone: RadiologyComment on above: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]Start: 11-14-2022 End: 30-81-4433Loddtyo encounter Aleida Sood MD Work Phone: NeurologyComment on above:Cerebellar tonsillar ectopia (HCC) (Primary Dx); Exertional headache; Cervicalgia; MacromastiaStart: 88-91-6455shmrxrcnwxZkhfdnoh L Halloran RNCCF [facility] MAINStart: 11-64-3682Kdyleee encounter procedureAminata Montgomery RNNURSE ON CALLComment on above:Referral InformationStart: 10-21-2022 End: 89-70-4648iqgcuxyascOO Diane THAPAFacility:U1Wnijg: 10-13-2022 End: 96-82-0139ubpgneovfqONAQ SARKIS-TANNOUSFacility:[facility] Hospitaltart: 10-11-2022 End: 70-30-9687aqchdgjqxhAE JEFFREY PAY .Facility:P1Evzch: 09-12-2022 End: 95-89-2030Tevunhl encounter procedureAnish Levin MD Work Phone: DermatologyComment on above:Acne vulgaris (Primary Dx); Eczema, unspecified type; Other eczemaStart: 32-67-9518Maxdojddp encounterAnish Levin MD Work Phone: DermatologyComment on above:Patient UpdateStart: 08-17-2022 End: 80-65-1975gdxuejwrloZjgede E Baker MD Work Phone: DermatologyComment on above:Acne vulgarisStart: 08-17-2022 End: 06-16-8718Vnacsccdgowp consultation with patientAnish Levin MD Work Phone: [facility]ERY CENTERStart: 40-59-0547snzsofaxjoBwkkdv E Baker MD Work Phone: DermatologyComment on above:Ance medicineStart: 83-44-7848Sxgohkbpz encounterNo Pcp InstituteComment on above:Medication ProblemStart: 08-04-2022 End: 74-43-4250Ztrsynx encounter procedureLul Mcbride MD Work Phone: OtolaryngologyComment on above:Sensorineural hearing loss (SNHL) of right ear with unrestricted hearing of left ear (Primary Dx) Start: 89-50-3802Uygbrojkn encounterSyary Sood MD Work Phone: NeurologyComment on above:Patient RequestStart: 78-48-7571Nlndnylgq encounterSyary Sood MD Work Phone: NeurologyComment on above:Patient QuestionStart: 06-24-2022 End: 33-40-5982ktrjabqvryOvyqf Mendoza Other Nort [employer] Other Start: 37-42-0978Wtaonp outpatient visit 15 minutes [facility] ClydeStart: 40-71-3363SqtcqtMroydy E Baker MD Work Phone: DermatologyComment on above:Refill RequestStart: 05-12-2022 End: 48-69-8120Fnlzhjk encounter procedureAnish Levin MD Work Phone: DermatologyComment on above:APPOINTMENT CANCELLED (Primary Dx)Start: 04-04-2022 End: 66-10-0407ifirdnoctcFrpoklp Samples MD Work Phone: NeurologyComment on above:Cerebellar tonsillar ectopia (HCC) (Primary Dx); Exertional headache; Xkwt-MWPFO-38 syndrome manifesting as chronic headacheStart: 04-04-2022 End: 40-89-5631Idgjacmnukxh consultation with Floresita Sood MD Work Phone: [facility] MAINStart: 86-91-3879GmtpluErqumv E Baker MD Work Phone: [phone] InstituteComment on above:Refill RequestStart: 21-27-8211AcwqrlZcdgbp E Baker MD Work Phone: DermatologyComment on above:Refill RequestStart: 78-86-9598vebylvxuhcVmntjz E Baker MD Work Phone: DermatologyComment on above:AnceStart: 12-30-2021 End: 61-42-7014Ltujwrd encounter procedureSyary Sood MD Work Phone: NeurologyComment on above:Cerebellar tonsillar ectopia (HCC) (Primary Dx); Exertional headache; Cpkm-FKCUM-51 syndrome manifesting as chronic headacheStart: 12-29-2021 ambulatoryAmanda Lapponi RT(R)RadiologyComment on above:Radiology MRIStart: 21-16-2811Genkdnd encounter procedureAmanda Lapponi RT(R)ORTH LORAINStart: 12-29-2021 End: 22-58-6108Jzhhzrhjzj hospital visit by physiciani [facility] Mercedes (1.5t) Work Phone: RadiologyComment on above:Thunderclap headache [G44.53]Start: 05-22-2019 End: 62-14-9195Rmppbncp ReferredRenee [facility] Start: 06-13-2017 End: 84-51-2879Betnjsdki department patient visitSTEPSAULO Arenas GRIDERFacility:[facility] Procedures DateProcedureProcedure DetailPerforming ClinicianStart: 55-88-0099Qelwd dip stick/tablet rgnt non-auto w/o micrscpPenolcas Vann MD Work Phone: start: 84-24-9112DSX PREG QUANT HCGGeneric External Data ProviderStart: 72-94-6013Wfbrk chlamydia trachomatis amplified probe tq Gualberto Vann MD Work Phone: start: 85-55-1301AUU PREG QUANT HCGGeneric External Data ProviderStart: 66-79-0507Ctikwhi bacterial quanttative colony count urine Gualberto Vann MD Work Phone: start: 50-34-2891XWSMP CULTURE CLEAN CATCH REFLEX Gualberto Vann MD Work Phone: start: 93-73-8519NEK PREG QUANT HCGPenduyen Vann MD Work Phone: start: 36-17-0610SHQ PREG QUANT HCGPenduyen Vann MD Work Phone: start: 35-64-6766YFMUGUDAEWBJKXUEYTLXSQDHF REDUCTASE (MTHFR) THERMOLABILSGualberto Vann MD Work Phone: start: 90-94-4202GFZWT CULTURE - FRGeneric External Data ProviderStart: 15-34-4126Vqcsbudquads chorionic quantitativeGualberto Vann MD Work Phone: start: 41-02-1750Jgctogudnl ultrasound of gravid uterusG. Wesly Iniguezmagui DO Work Phone: Start: 41-46-3527Bzcgqqrxqgbfd of growth of fungiG. Wesly Thapa DO Work Phone: Start: 01-15-2069Hqothtaylro vaginalis detectionG. Wesly Thapa DO Work Phone: Start: 49-51-0361Nxbluwxnfgzs obstetric ultrasonographyG. Wesly Samanthadenisse DO Work Phone: Start: 01-11-2025 End: 93-00-4272Cbtebseeohfjl metabolic panelChristopher Katarzyna Garcia MD Work Phone: Start: 77-57-4788Jwtpj dip stick/tablet rgnt auto w/o microscopyRohit Rob MD Work Phone: Start: 12-01-2024 End: 34-70-1114Fmdscuemtkfbo metabolic panelRohit Rob MD Work Phone: Start: 85-73-3311MAM PREG QUANT HCGPenduyen Vann MD Work Phone: start: 26-54-3568Hbipv dip stick/tablet rgnt auto w/o microscopyAkiko Acosta MD Work Phone: Start: 61-45-6005Sl abdomen & pelvis w/contrast Loco Acosta MD Work Phone: Start: 22-41-9110Rjqnjvwwnm exam chest single viewAkiko Acosta MD Work Phone: Start: 23-63-7475FKFTE-19, RAPIDAkiko Acosta MD Work Phone: Start: 19-77-9599Vqvpvebbg influenzaAkiko Acosta MD Work Phone: Start: 85-98-2880Pjd routine ecg w/least 12 lds w/i&r Akiko Acosta MD Work Phone: Start: 77-03-2952Xfbaeylcaeyok metabolic panelAkiko Acosta MD Work Phone: Start: 77-29-8883Rldrgm-up visitFollow-upQUYNH [facility] VU Start: 39-74-9552Nfrrn test visual color cmprsn methsPenola Serafin Vann MD Work Phone: start: 57-06-4283Junluy-up visitFollow-upMICHAEL DISHERStart: 28-23-5205ML PELVIS W/ TRANSVAGINALPenduyen Vann MD Work Phone: start: 70-35-2351PVR PREG QUANT HCGPenola Serafin Vann MD Work Phone: start: 04-71-0101Mkpfotkhiud vaginalis detectionDO Katie Thapa Work Phone: Start: 66-00-5696AEX PREG QUANT HCGGeneric External Data ProviderStart: 50-27-9617CB PELVIS W/ TRANSVAGINALGualberto Vann MD Work Phone: start: 43-17-8146Eaaoqrzn and curettage of uterusDO Katie Thapa Work Phone: Start: 84-73-5881TjmbklbbgonwXP Katie Thapa Work Phone: Start: 96-61-1665Orjar depression screening assessment Sadia Rai PA-C Work Phone: Start: 56-08-4098Hyx brain brain stem w/o w/contrast materialStephen Samples Work Phone: Start: 24-46-8667Guvbn depression screening assessment Sreekanth Samples Work Phone: Start: 70-64-2910Ipl brain brain stem w/o w/contrast materialStephen Samples Work Phone: Start: 83-61-3655Akabf depression screening assessment Francheska Barkerkatherine RT(R)Start: 98-02-7358Fvvpzuc CultureRenee OttStart: 05-22-2019 Anaerobic CultureRenee OttStart: 23-43-8586Eelqbdmpbke observation Gram stain Nom (Unsp spec)Margarita Chiu Plan of Treatment DateCare ActivityDetailAuthorStart: 42-48-4470Ueqqvus ScreeningTobacco Screening [facility] SystemStart: 93-07-0737Qrpel BMI ScreeningAdult BMI Screening [facility] SystemStart: 97-97-3278Zgsza BMI ScreeningAdult BMI Screening [facility] SystemStart: 09-15-2025 End: 73-49-2652Pywjbwe encounter imeltnptn11/08/2025 12:30 PM EST Routine BRANDEN APONTE [address] [place] [id number] Gualberto Vann MD [address] [place] [address] BRANDEN WALLIStart: 16-03-7119Cqfmr BMI ScreeningAdult BMI ScreeningProNorwalk Memorial Hospitalca Health SystemStart: 03-16-8677Ogilqpi ScreeningTobacco ScreeningProNorwalk Memorial Hospitalca Health SystemStart: 72-95-7330Hgbob BMI ScreeningAdult BMI ScreeningProMedica Health SystemStart: 95-23-6763Evobgjm ScreeningTobacco ScreeningProGrant Hospitaltart: 08-22-2025 End: 62-73-9913Ptporfeqjzqh / ancillary services divrdtaukm60/14/2025 10:00 AM EST Ancillary Procedure NOMEfe [facility] [address] [place] [address] WEGW [place] OBGYNStart: 34-52-8223Papfa BMI Screening Adult BMI ScreeningProGrant Hospitaltart: 68-61-2483Cshmmmg Screening Tobacco ScreeningProGrant Hospitaltart: 08-18-2025 End: 90-63-7636dxdbkkdriyEOFQ [place] OBGYNComment on above:Vaginitis and vulvovaginitis; Cervicitis and endocervicitis; First trimester ([facility]); 11 weeks gestation of ([facility])Start: 08-14-2025 End: 24-64-0035Imzrexb encounter procedureNOMS [facility] OBStart: 08-11-2025 End: 51-88-4042NPXQJT CARRIER SCREEN;14 GENESBEACON CARRIER SCREEN;14 GENES Lab Routine Screening for genetic disease carrier status Expected: 08/11/2025 (Approximate), Expires: 07/18/2026[facility] HealthcareComment on above:Expected: 08/11/2025 (Approximate), Expires: 07/18/2026Start: 08-11-2025 End: 31-45-9007JykpnzeD66 PLUS Core+GQPQkloivpP47 PLUS Core+SCA Lab Routine Encounter for screening for chromosomal anomalies ([facility]) Expected: 08/11/2025 (Approximate), Expires: 07/18/2026[facility] HealthcareComment on above: Expected: 08/11/2025 (Approximate), Expires: 07/18/2026Start: 07-31-2025 End: 12-52-7793Alfybvmqizrq / ancillary services bsceeqmfwm65/23/2025 2:45 PM EDT Ancillary Procedure [facility] [address] [place] [address] LGYW [place] OBGYNStart: 07-31-2025 End: 93-60-9745Kyvlvri encounter procedureBRANDEN [place] OBGYNComment on above: ArrivedStart: 07-18-2025 End: 22-32-8275Wvwytssj identified in Urine by CultureUrine culture Microbiology Routine care, subsequent , first trimester ([facility]) Ex pected: 07/18/2025, Expires: 07/18/2026[facility] HealthcareComment on above:Expected: 07/18/2025, Expires: 07/18/2026Start: 07-18-2025 End: 43-69-8333Onoxa type and Indirect antibody screen panel - BloodType and screen Lab Routine care, subsequent , first trimester ([facility]) Expected: 07/18/2025, Expires: 07/18/2026[facility] HealthcareComment on above: Expected: 07/18/2025, Expires: 07/18/2026Start: 07-18-2025 End: 85-24-7509SWK W Auto Differential panel - BloodCBC auto differential Lab Routine care, subsequent , first trimester ([facility]) Expected: 07/18/2025, Expires: 07/18/2026[facility] HealthcareComment on above:Expected: 07/18/2025, Expires: 07/18/2026Start: 07-18-2025 End: 87-81-9333Pynsx of abuse panel - Urine by Screen methodToxicology screen, urine Lab Routine Encounter for drug screening Expected: 07/18/2025 (Approximate), Expires: 07/18/2026[facility] Healthcare Work Phone: comment on above:Expected: 07/18/2025 (Approximate), Expires: 07/18/2026Start: 07-18-2025 End: 73-54-7332DMPANVDBV B SURFACE ANTIGEN [place] [place]HEPATITIS B SURFACE ANTIGEN [place] [place] [place] Lab Routine care, subsequent , first trimester([facility]) Expected: 07/18/2025, Expires: 07/18/2026[facility] HealthcareComment on above: Expected: 07/18/2025, Expires: 07/18/2026Start: 07-18-2025 End: 36-81-3377Bjmzlasrm C virus Ab [Presence] in Serum or Plasma by Immunoassay Hepatitis C antibody Lab Routine care, subsequent , first trimester ([facility]) Expected: 07/18/2025, Expires: 07/18/2026[facility] Comment on above:Expected: 07/18/2025, Expires: 07/18/2026Start: 07-18-2025 End: 08-46-4204WRO-1/HIV-2 antigen/antibody combination immunoassayHIV-1 and HIV-2 antibodies Lab Routine care, subsequent , first trimester ([facility]) Expected: 07/18/2025, Expires: 07/18/2026[facility] Comment on above:Expected: 07/18/2025, Expires: 07/18/2026Start: 07-18-2025 End: 59-42-0291OWO W/RFX TO QUANT & TP ABS [place] [place] [place]RPR W/RFX TO QUANT & TP ABS ([facility] [place] Lab Routine care, subsequent , first trimester ([facility]) Expected: 07/18/2025, Expires: 07/18/2026[facility] HealthcareComment on above: Expected: 07/18/2025, Expires: 07/18/2026Start: 07-18-2025 End: 92-13-7013Wxsddbu antibody, IgGRubella antibody, IgG Lab Routine care, subsequent , first trimester ([facility]) Expected: 07/18/2025, Expires: 07/18/2026[facility] HealthcareComment on above:Expected: 07/18/2025, Expires: 07/18/2026Start: 07-18-2025 End: 72-13-0883Fgvatvxmdw complete panel - UrineUrinalysis with microscopic Lab Routine care, subsequent , first trimester ([facility]) Expected: 07/18/2025, Expires: 07/18/2026[facility] HealthcareComment on above:Expected: 07/18/2025, Expires: 07/18/2026Start: 07-18-2025 End: 20-59-4014rzyiuqnnim86/10/2025 10:30 AM EDT Initial [facility] [place] [facility] [address] [place] [address] [facility] [place] OBGYNStart: 51-51-0977Vgbye BMI ScreeningAdult BMI ScreeningKindred Hospital - Greensborotart: 70-69-1608Iufeept ScreeningTobacco ScreeningWestern Reserve Hospital Start: 07-15-2025 End: 46-78-4383Queabeo encounter xjbwtybzw57/07/2025 8:45 AM EDT Office Visit [facility] [place] [facility]AD[facility] [address] [place] [address] Gualberto Vann MD [address] [place] [address] [facility] [place] OBGYNStart: 06-47-2397Qfvvy BMI Screening Adult BMI ScreeningProGrant Hospitaltart: 72-81-9729Dhpowcl Screening Tobacco ScreeningProGrant Hospitaltart: 25-63-5208ZRsF,Tdap and Td Vaccines (7 - Td or Tdap)DTaP,Tdap and Td Vaccines (7 - Td or Tdap)[facility] SystemStart: 10-12-9916EOqP/Tdap/Td vaccine (7 - Td or Tdap)DTaP/Tdap/Td vaccine (7 - Td or Tdap)[facility]Start: 94-16-5599JUdI/Tdap/Td Vaccines (7 - Td or Tdap)DTaP/Tdap/Td Vaccines (7 - Td or Tdap)[facility] Start: 38-91-5738Nnele microalbumin profileDTaP,Tdap,Td Vaccine (7 - Td or Tdap) [facility]: 06-13-2025 End: 51-57-5232Rnfojwj encounter procedureNO [facility] Comment on above:Major depressive disorder, single episode, mildStart: 06-10-2025 End: 93-14-4493Galycqvb [Mass/volume] in Serum or PlasmaFerritin Lab Routine Amenorrhea Menorrhagia with irregular cycle Excessive bleeding in premenopausal period Expected: 06/10/2025 (Approximate), Expires: 06/10/2026[facility] Comment on above:Expected: 06/10/2025 (Approximate), Expires: 06/10/2026Start: 06-10-2025 End: 47-89-7316RGLHR mutationMTHFR mutation Lab Routine History of miscarriage Expected: 06/10/2025 (Approximate), Expires: 06/10/2026[facility] Work Phone: comment on above:Expected: 06/10/2025 (Approximate), Expires: 06/10/2026Start: 71-48-1867GCXHD-19 Vaccine ( season)COVID- 19 Vaccine ()[facility] HealthcareStart: 99-52-6005ASHAM-19 Vaccine ()COVID-19 Vaccine ()[facility] Start: 63-96-1120Yiljpqrzi vaccinationProNorth [facility] Specialty Hospital Health SystemStart: 05-21-2025 Adult BMI ScreeningAdult BMI ScreeningProFayette County Memorial Hospital SystemStart: 05-21-2025 Tobacco ScreeningTobacco ScreeningGeorgetown Behavioral Hospital SystemStart: 05-01-2025 End: 46-09-9840Jjozzex encounter ilaklbeav24/24/2025 4:15 PM EDT Office Visit Dermatology [address] [address] Anish Levin MD [address] [place] [address] requesting refillsDermatologyComment on above:requesting refillsStart: 64-03-7561Alxjgydi identified in Urine by CultureUrine [facility] Centertart: 91-47-4051Ptrud [facility] Start: 83-16-1561Vlnei BMI ScreeningAdult BMI ScreeningProFayette County Memorial Hospital System Start: 60-94-0722Rbfxtkf ScreeningTobacco ScreeningProFayette County Memorial Hospital SystemStart: 00-64-1366Rgsrt BMI ScreeningAdult BMI ScreeningProNorwalk Memorial Hospitalca [facility] SystemStart: 45-07-9260Lrxkeki ScreeningTobacco ScreeningGeorgetown Behavioral Hospital SystemStart: 02-19-2025 End: 75-37-0119Dhuhnnr encounter pzueemshj74/14/2025 12:45 PM EDT Office Visit Dermatology [address] [place], [place] [phone] Anish Levin MD [address] [place] [address] 2 months follow up for acneDermatologyComment on above:2 months follow up for acneStart: 17-70-9718KsijaqzawUniversity Hospitals Geauga Medical Centertart: 89-28-7138Hgesi BMI ScreeningAdult BMI ScreeningGeorgetown Behavioral Hospital SystemStart: 95-10-0234Hesibni ScreeningTobacco ScreeningKindred Hospital - Greensborotart: 12-03-2024 End: 36-24-7882Nybwzvo encounter qondgfjty89/25/2025 8:40 AM EST Office Visit [facility] [address] [place] [phone] Pete Thapa, DO [address] [place] [address] [facility] 230Start: 11-04-2024 End: 47-91-9632Bblssmo encounter okjaycdpp25/27/2025 1:45 PM EST Office Visit [facility] [address] [place] [address] Osbaldo [facility], DO [address] [place] [address] [facility] - ENTStart: 10-15-2024 End: 31-17-8387Gqrbaaz encounter kmzixtlpi74/07/2025 10:00 AM EST Office Visit [facility] [address] [place] [address] Pete Thapa, DO [address] [place] [address] [facility] 230Start: 10-10-2024 End: 32-56-5539Jatelhx encounter kitqtewey88/02/2025 1:45 PM EST Office Visit Dermatology [address] [place] [address] [place], [place] [phone] Anish Levin MD [address] [place] [address] [place] [address] ACNEDermatologyComment on above:ACNEStart: 09-11-2024 End: 42-22-2693Eodpmsd encounter /04/2024 10:30 AM EST Office Visit [facility] - ENT [address] [place] [address], [address] [place] [phone] Gary Jenningsh-[facility], DO [address] [place] [address] [facility] - ENTStart: 09-10-2024 End: 78-33-7446Vsohdjns SupportProMedica Physicians Ear, Nose and ThroatStart: 09-09-2024 End: 34-70-7646Yzkefrs encounter roekxoihi92/02/2024 9:45 AM EST Office Visit [facility] - ENT [address] [place] [address] Dick, Osbaldo-[facility], DO [address] [place] [address] [facility] - ENTStart: 08-27-2024 End: 89-76-9562Dwwrpfjdz to same day surgery eohspn4608/27/2024 12:45 PM EST - 08/27/2024 1:45 PM EST Surgery [facility] - Surgery [address] [place] [address] Vu, Osbaldo-Catie, DO [address] [place] [address] DIRECT LARYNGOSCOPY WITH BIOPSY BASE OF TONGUE LESION [28940 (CPT )][facility] SurgeryComment on above:DIRECT LARYNGOSCOPY WITH BIOPSY BASE OF TONGUE LESION [22654 (CPT )] Start: 08-27-2024 End: 42-45-0089Sssmladwvxfn direct operative w/biopsyDIRECT LARYNGOSCOPY Lesion of tongue 08/27/2024 12:45 PM ESTMIDDLETOWN [facility] SURGERYStart: 23-99-4482Hzzhmmipuh hospital visit by swnbwgyli58/19/2024 12:45 PM EST Hospital Encounter [facility] Surgery [address] [place] [address] Osbaldo JenningsS[facility], DO [address] [place] [address] [facility] of [facility]Start: 08-27-2024 End: 06-19-9498Xhzfuqarxjin direct operative w/biopsyDIRECT LARYNGOSCOPY Lesion of tongue 08/27/2024 10:13 AM ESTMIDDLETOWN [facility] SURGERYStart: 08-13-2024 End: 45-40-2202Hzvvioe encounter vzmyycxsu19/05/2024 1:45 PM EST Office Visit [facility] [address] [place] [address] Gualberto Vann MD [address] [place] [address] [facility] OBStart: 08-08-2024 End: 76-34-1110Oblovhx encounter eevrpebic57/31/2024 10:00 AM EDT Office Visit [facility] [address] [place] [address] Renita Ellis, BENCH TOOL MAKER-OBJECT ORIENTED DEVELOPER [address] [place] [address] [facility] NeurologyStart: 08-07-2024 End: 19-32-9589Vmsuqki encounter evxzbcmbk29/30/2024 10:00 AM EDT Office [facility] [address] [place] [address] Luis Enrique Jennings, DO [address] [facility] [address] [place] [address] [facility] ThroatStart: 07-24-2024 End: 56-40-8163Lvjwttk encounter ozvhpxhxf21/16/2024 10:00 AM EDT Office Visit [facility] [address] [place] [address] Renita Ellis, BENCH TOOL MAKER-OBJECT ORIENTED DEVELOPER [address] [place] [address] [facility] NeurologyStart: 07-15-2024 End: 16-26-8507Wrbujip encounter nxmklrend58/07/2024 3:30 PM EDT Office Visit [facility] [address] [place] [address] [place] [address] [place] [address] [address] [place], [place] [facility] ThroatStart: 07-03-2024 End: 75-75-4039TP Neck W contrast IVCT neck soft tissue with contrast Imaging Routine Chronic throat pain Odynophagia Expected: 07/03/2024, Expires: 07/03/2025[facility] Work Phone: Comment on above:Expected: 07/03/2024, Expires: 07/03/2025Start: 04-86-0148Vtabactg tomography of abdomen and pelvis with contrastCT abdomen pelvis w [facility] Hospitaltart: 30-08-2223WM Abdomen and Pelvis W contrast [facility] Start: 28-73-9971CbpomuaxrUniversity Hospitals Geauga Medical Centertart: 37-59-0997Rwxeyxiu identified in Urine by CultureUniversity Hospitals Geauga Medical Centertart: 06-19-2024 Depression ScreeningDepression ScreeningKindred Hospital - Greensborotart: 06-09-2024 COVID-19 Vaccine ( season)COVID-19 Vaccine () [facility]: 78-58-1658Rqptb-19 Vaccine ( season) Covid-19 Vaccine ()[facility]: 87-03-5635Ogzblhatu vaccinationLake County Memorial Hospital - Westtart: 06-04-2024 End: 46-80-5437Gwcwhgojr to same day surgery rdnxln2806/04/2024 9:00 AM EDT - 06/04/2024 9:30 AM EDT Surgery [address] [phone] Mich Verde MD [address] [place] [address] [address] [place] [address] REMOVAL TUBE EAR [79707 (CPT )][facility] HospitalComment on above: REMOVAL TUBE EAR [85043 (CPT )]Start: 23-30-4562Iupcuvzjfj hospital visit by xohkfuyqn44/27/2024 9:00 AM EDT Hospital Encounter [facility] Surgery [address] [place] [phone] Mich Verde MD [address] [place] [address] [address] [place], [place] [phone] (Work) [facility] SurgeryStart: 06-04-2024 End: 51-95-5801Cmmqtawa memb rpr w/wo prepj perfor patchAPPLICATION GRAFT PAPER PATCH EAR Dysfunction of both eustachian tubes Hearing loss of right ear, un specified hearing loss type Otomycosis Acute right otitis media Cerumen debris on tympanic membraneof both ears Chronic mucoid otitis media of both ears 06/04/2024 9:00 AM EDTTOLEDO SURGERYStart: 06-04-2024 End: 48-70-3889Irkhdqefmxq tube rmvl requiring general anesREMOVAL TUBE EAR Dysfunction of both eustachian tubes Hearing loss of right ear, unspecified hearing loss type Otomycosis Acute right otitis media Cerumen debris on tympanic membrane of both ears Chronic mucoid otitis media of both ears 06/04/2024 9:00 AM EDTTOLEDO SURGERYStart: 04-08-2024 End: 88-07-6193Bfeprgr encounter fckzcslui19/01/2024 4:15 PM EDT Office Visit [facility] [address] [place] [address] Sadia Rai PA-C [address] [place] [address] [facility] and ThroatStart: 03-18-2024 End: 38-89-4579Tokawwi encounter wfgogmqyp43/10/2024 2:30 PM EDT Office Visit [facility] [address] [place] [address] Mich Verde MD [address] [place], [place] [phone] [facility] ThroatStart: 02-13-2024 End: 82-20-5291Lnjcifn encounter hksjtvkfo17/07/2024 2:00 PM EDT Office Visit [facility] [address] [place] [address] Mich Verde MD [address] [place] [phone] [facility] ThroatStart: 02-06-2024 End: 94-53-5532Rlineha encounter pvzfbnniq34/30/2024 1:15 PM EDT Office Visit [facility] [address] [place] [address] Sadia Rai PATanishaC [address] [facility] [address] [place] [address] [facility] ThroatStart: 11-21-2023 End: 75-28-5844Skmexzr function 2000 panel - Serum or PlasmaHEPATIC FUNCTION PNL Lab Routine Medication monitoring encounter Expected: 11/21/2023, Expires: 02/06[facility] Work Phone: Comment on above:Expected: 11/21/2023, Expires: 02/20/2024Start: 85-40-2720Jqeymovak for malignant neoplasm of cervixLake County Memorial Hospital - Westtart: 00-04-8587Lbnosdfhah AssessmentDepression AssessmentLake County Memorial Hospital - Westtart: 31-86-3876ErcvrmscbUniversity Hospitals Geauga Medical Centertart: 08-03-2023 End: 32-08-9315CmxrvywmqUniversity Hospitals Geauga Medical Centertart: 44-11-3485Gavfk-19 Vaccine ( season)Covid-19 Vaccine ( season)[facility]: 64-27-9735Ccdesybnq vaccinationLake County Memorial Hospital [facility] Westtart: 04-04-2023 Adult depression screening assessmentDEPRESSION SCREENINGLake County Memorial Hospital [facility]tart: 53-07-5472Hkxum depression screening assessmentDEPRESSION SCREENINGLake County [facility]: 77-01-0383KDKXHLLYIO ASSESSMENTDEPRESSION ASSESSMENTLake [facility]: 46-44-4424Caopsopsn vaccinationINFLUENZA (#1)[facility]: 05-17-0687NLJFHAFCRU ASSESSMENTDEPRESSION ASSESSMENTL[facility]: 06-47-0871Xfuow BMI Follow Up PlanAdult BMI Follow Up [facility] SystemStart: 98-02-4203YANHICMTA SCREENING (18-24)CHLAMYDIA SCREENING (18-24) [facility]: 70-31-6133Murllybyog ScreeningDepression Screening [facility]: 22-59-5049FT (GONORRHEA) SCREENING (1824)GC (GONORRHEA) SCREENING (1824)[facility]: 09-12-7051RQHGPRDIZ C SCREENINGHEPATITIS C SCREENINGL[facility]: 39-75-9281Goadqttux C screeningLake [facility]: 22-90-2696NBO SCREENINGHIV SCREENINGLake [facility]: 00-43-2451TDN screeningHIV ScreeningLake County [facility]: 76-09-1822Kvafrhllq for Chlamydia trachomatisChlamydia Screening ()[facility]: 67-47-1085Axepbqpezkyek B Vaccine (1 of 2 - Standard)Meningococcal B Vaccine (1 of 2 - Standard)[facility]: 15-02-7109Azssqmymxffpx B Vaccine: Consider Based On Risk (1 of 2 - Patient Seeks Protection)Meningococcal B Vaccine: Consider Based On Risk (1 of 2 - Patient Seeks Protection)[facility]: 91-85-4493JTMPKAYZIQHPR B: Consider based on risk (1 of 2 - Patient Seeks Protection)MENINGOCOCCAL B: Consider based on risk (1 of 2 - Patient Seeks Protection)[facility]: 71-66-8116Yhgycaufx for Chlamydia trachomatis Chlamydia/GC screenBon [facility]: 06-97-5920CEI screeningHIV screenStoneSprings Hospital Center: 96-13-9375PEO VACCINE (2 - 2-dose series) HPV VACCINE (2 - 2-dose series)[facility]: 06-19-1906ZFDH TO ADULT TRANSITION ANNUAL ASSESSMENTPEDS TO ADULT TRANSITION ANNUAL ASSESSMENTLake [facility]: 29-93-6814Avytmobdkj ScreenDepression ScreenBon [facility]: 60-79-2949MEUJ TO ADULT TRANSITION INITIAL DISCUSSIONPEDS TO ADULT TRANSITION INITIAL DISCUSSIONL[facility]: 77-60-3315Mahxt microalbumin profileLake County Memorial Hospital [facility]: 40-17-2124IOQJJDRDCDNEC B: Consider based on risk (1 of 2 - Risk Bexsero 2-dose series)MENINGOCOCCAL B: Consider based on risk (1 of 2 - Risk Bexsero 2-dose series)[facility]: 18-69-0770Dqlrsxv of varicella vaccinationVaricella Vaccines (2 of 2 - 2-dose childhood series)[facility] HealthcareStart: 21-76-7452Bnxibhuup vaccine (2 of 2 - 2-dose childhood series) Varicella vaccine (2 of 2 - 2-dose childhood series)[facility] Start: 99-15-5190PCPHT-19 VACCINE (#1)COVID-19 VACCINE (#1)[facility] Start: 51-30-3816TTPEY-19 VACCINE (1)COVID-19 VACCINE (1)[facility]: 22-36-1910CQHLT-19 VACCINE (#1)COVID-19 VACCINE (#1)[facility] AdministrationBacteria identified in Urine by CultureUrine culture Microbiology Routine Vaginal burning Ordered: 10/23/2024[facility] HealthcareComment on above:Ordered: 10/23/2024acteria identified in Urine by CultureUrine culture Microbiology Routine Vaginal burning Vaginal itching Vaginal irritation Ordered: 06/10/2025[facility] HealthcareComment on above:Ordered: 06/10/2025BC W Auto Differential panel - BloodCBC and differential Lab Routine Amenorrhea Menorrhagia with irregular cycle Excessive bleeding in premenopausal period Ordered: 06/10/2025[facility] HealthcareComment on above:Ordered: 06/10/2025 End: 17-84-3901Jzscxavnucmdx hearing testComprehensive hearing test Audiology Routine Postop check 1 Occurrences starting 07/15/2024 until 07/15/2025[facility] Work Phone: Comment on above:1 Occurrences starting 07/15/2024 until 07/15/2025EKG 12 Lead (Chest Pain)EKG 12 Lead (Chest Pain) ECG STAT 11/16/2024 1:16 AM [facility] SWAB GENITAL MYCOPLASMAS JANET, SWAB Pathology and Cytology Routine Vaginal burning Vaginal itching Vaginal discharge Vaginal odor Ordered: 10/23/2024[facility] Work Phone: comment on above:Ordered: 10/23/2024GENITAL MYCOPLASMAS JANET, SWABGENITAL MYCOPLASMAS JANET, SWAB Pathology and Cytology Routine Vaginitis and vulvovaginitis Cervicitis and endocervicitis Ordered: 08/18/2025[facility] Work Phone: comment on above:Ordered: 08/18/2025hCG, quantitative hCG, quantitative Lab Routine Amenorrhea Ordered: 06/10/2025[facility] Comment on above:Ordered: 06/10/2025IGP, APT HPV,RFX 16/18,45IGP, APT HPV,RFX 16/18,45 Lab Routine Encounter for gynecological examination without abnormal finding Encounter for screening for cervical cancer Ordered: 08/18/2025[facility] HealthcareComment on above:Ordered: 08/18/2025Iron and Iron binding capacity panel - Serum or PlasmaIron and TIBC Lab Routine Amenorrhea Menorrhagia with irregular cycle Excessive bleeding in premenopausal period Ordered: 06/10/2025 [facility] HealthcareComment on above:Ordered: 06/10/2025Lipoprotein a [Moles/volume] in Serum or PlasmaUniversity Hospitals Health SystemLupus anticoagulantLupus anticoagulant Lab Routine History of miscarriage Ordered: 06/10/2025[facility] HealthcareComment on above:Ordered: 06/10/2025Mayo miscellaneous testMayo miscellaneous test Lab Routine Screening for malignant neoplasm of cervix Vaginal discharge Ordered: 08/13/2024[facility] HealthcareComment on above:Ordered: 08/13/2024NuSwab Vaginitis Plus (VG+)NuSwab Vaginitis Plus (VG+) Microbiology Routine Screening for malignant neoplasm of cervix Vaginaldischarge Ordered: 08/13/2024[facility] HealthcareComment on above:Ordered: 08/13/2024NuSwab Vaginitis Plus (VG+)NuSwab Vaginitis Plus (VG+) Microbiology Routine Vaginal burning Vaginal itching Vaginal discharge Vaginal odor Ordered: 10/23/2024[facility] HealthcareComment on above:Ordered: 10/23/2024Patient EducationUniversity Hospitals [facility] Work Phone: Patient referralUniversity Hospitals Beachwood [facility] Center [facility] Work Phone: SENDOUT TEST MISCELLANEOUS LABCORPSENDOUT TEST MISCELLANEOUS [facility] Lab Routine Screening for malignant neoplasm of cervix Encounterfor gynecological examination without abnormal finding Ordered: 08/13/2024[facility] Work Phone: comment on above:Ordered: 08/13/2024URINE CULTURE [place] [facility] [place] [place] [facility] [place] Lab Routine 04/17/2025 1:15 AM [facility] Immunizations Immunization DateImmunizationNotesCare TyrzigshFszwdnzq62-82-4505jjtihlilu, injectable, madin maria del carmen canine kidney, preservative freePete Thapa DO Work Phone: [facility] CenterIaazygvfse43-44-6892forhpxudk virus vaccine, unspecified formulationTala Vazquez APRN-CNM Work Phone: [facility] HospitalSadwmg38-95-4382Szbzqhdjy, injectable, Madin [place] Canine Kidney, preservative free, quadrivalentLogan Jason PORT CDL A DRIVER Work Phone: [facility] CenterWkqvzkxeiy92-62-5427icwcalswq virus vaccine, unspecified formulationPunxsutawney Area Hospital06-01-2023SARS-COV-2 (COVID-19) vaccine, mRNA, spike protein, LNP, bivalent, preservative free, 30 mcg/0.3 mLdose, merly-sucrose formulationLogan Jason PORT CDL A DRIVER Work Phone: [facility] CenterRjsthfqnyn35-31-7048Udvatizur, injectable, Madin [place] Canine Kidney, preservative free, quadrivalentLogan Jason PORT CDL A DRIVER Work Phone: noRusk Rehabilitation CenterJyxbvryeah95-67-8277vhpphvzxq virus vaccine, unspecified formulationAnish Levin MD Work Phone: Veterans Health AdministrationMeeuxy92-42-8052qxcqtwwmv, injectable, quadrivalent, preservative freeLogan Jason PORT CDL A DRIVER Work Phone: [facility] CenterYtzovevnkz77-50-1614Tysudzvxb, injectable, Madin Maria Del Carmen Canine Kidney, quadrivalent with preservativeLogan Jason PORT CDL A DRIVER Work Phone: [facility] CenterNzoagqzrxv23-96-6203Nptrverdn, injectable, Madin Maria Del Carmen Canine Kidney, preservative free, quadrivalentLogan Jsaon PORT CDL A DRIVER Work Phone: [facility] CenterQlpyhjojmz41-16-5645lburpngqy, injectable, quadrivalent, preservative freeLogan Jason PORT CDL A DRIVER Work Phone: [facility] CenterGkzibsjaid38-12-4978vrwmhzewm A vaccine, pediatric/adolescent dosage, 2 dose scheduleThedaCare Medical Center - [facility] Inc 69-62-4102Ptokn Papillomavirus 9-valent vaccineThedaCare Medical Center - [facility] Inc 83-28-9571twdalnclr, injectable, quadrivalent, preservative freeY[facility]kin [facility]03-09-2017hepatitis A vaccine, adult dosageNazareth Hospital03-09-2017hepatitis A vaccine, pediatric/adolescent dosage, 2 dose scheduleAmanda Lapponi RT(R)[facility] Work Phone: [phone] papilloma virus vaccine, quadrivalent Sadia Rai PA-C Work Phone: [facility]03-09-2017Human Papillomavirus 9-valent vaccineKessler Institute For Rehabilitationda Lapponi RT(R)[facility] Work Phone: [phone]vkuetnb oligosaccharide (groups A, C, Y and W-135) diphtheria toxoid conjugate vaccine (MCV4O)[facility]10-23-2015meningococcal polysaccharide (groups A, C, Y and W-135) diphtheria toxoid conjugate vaccine (MCV4P)Francheska Lapponi RT(R)[facility] 09-75-5750ptatuhruk virus vaccine, unspecified formulationSadia Rai PA-C Work Phone: [facility] HospitalRznnwo99-34-1629kicsraqep, injectable, quadrivalent, preservative freeAmanda Lapponi RT(R)[facility] 59-81-7904qgsjopmav, seasonal, injectableLogan Jason PORT CDL A DRIVER Work Phone: [facility] CenterIucpcbmmxd40-65-0797arkodyy toxoid, reduced diphtheria toxoid, and acellular pertussis vaccine, adsorbedNazareth Hospital10-22-2013influenza virus vaccine, unspecified formulationAmanda Lapponi RT(R)[facility] AdministrationFejivw04-85-8358zhiidnhuy, injectable, quadrivalent, preservative freeLogan Jason PORT CDL A DRIVER Work Phone: [facility] CenterFghdxwomsa73-18-1172znzliqyse virus vaccine, unspecified formulationAmanda Lapponi RT(R)[facility] AdministrationSrlmzm76-41-8550acrubclko, seasonal, injectableLogan Jason PORT CDL A DRIVER Work Phone: [facility] CenterEytqynrjje32-97-9104pckuadiih virus vaccine, unspecified formulationAmanda Lapponi RT(R)[facility] AdministrationTqcpql62-93-0632ltoloywca, seasonal, injectable, preservative freeLogan Jason PORT CDL A DRIVER Work Phone: [facility] CenterJkqprvijlg01-66-9271kdookovei virus vaccine, live, attenuated, for intranasal useLogan Jason PORT CDL A DRIVER Work Phone: [facility] CenterTbswtzmgdd91-75-7717dugyepcsk virus vaccine, unspecified formulationAmanda Lapponi RT(R)[facility] AdministrationPajxtb65-10-7977nvemtttuwa, tetanus toxoids and acellular pertussis vaccineAmanda Lapponi RT(R)[facility] AdministrationNtdrdm95-36-1590cqnzylv, mumps and rubella virus vaccineAmanda Lapponi RT(R) [facility] AdministrationJvobmn41-23-6334lgrcigmqxa vaccine, inactivatedAmanda Lapponi RT(R) [facility] AdministrationVmsylg92-23-7125nfhrokobtb, tetanus toxoids and acellular pertussis vaccineKessler Institute For Rehabilitationda Lapponi RT(R)[facility] AdministrationFcilte76-85-5431aowtedunq virus vaccine Francheska Lapponi RT(R)[facility] AdministrationGrheju60-72-2485gynlwqfge virus vaccine, unspecified formulationSadia Rai PA-C Work Phone: [facility] HospitalBfkpmp47-99-5737fsansrsub, seasonal, injectableLogan Jason PORT CDL A DRIVER Work Phone: [facility] CenterZylvtupwfz59-01-7886fbllvhhdb, seasonal, injectable, preservative freeAmanda Lapponi RT(R)[facility]07-14-2004 haemophilus influenzae type b vaccine, conjugate unspecified formulationP[facility]xsut[facility]07-14-2004haemophilus influenzae type b vaccine, HbOC conjugateKessler Institute For Rehabilitationda Lapponi RT(R)[facility] AdministrationForrvk59-75-8676jfonybo, mumps and rubella virus vaccineAmanda Lapponi RT(R)[facility] AdministrationQjptyk40-14-6401czwqrozekhku conjugate vaccine, 7 valentPunxsutawney [facility] Hospital07-14-2004 pneumococcal Conjugate, unspecified formulationKessler Institute For Rehabilitationda Lapponi RT(R)[facility] AdministrationKfdmbw00-41-5418nkxsxcchx virus vaccine, unspecified formulationSadia Rai PA-C Work Phone: [facility] HospitalMtbwby41-18-7812rsvftqpdv, seasonal, injectableAmanda Lapponi RT(R)[facility] AdministrationOveiuo67-44-5830sezhemwby virus vaccine, unspecified formulationSadia Rai PA-C Work Phone: [facility] HospitalIouspc02-62-2744yrqujqaxd, seasonal, injectableAmanda Lapponi RT(R)[facility] AdministrationJduzug63-11-7869zvcrhfbvyzmx conjugate vaccine, 7 valentPunxsutawney [facility]12-02-2003pneumococcal Conjugate, unspecified formulationKessler Institute For Rehabilitationda Lapponi RT(R)[facility]12-02-2003 poliovirus vaccine, inactivatedKessler Institute For Rehabilitationda Lapponi RT(R)[facility]07-14-2003 diphtheria, tetanus toxoids and acellular pertussis vaccineKessler Institute For Rehabilitationda Lapponi RT(R) [facility] AdministrationJofarh47-97-3944agtpdihcjcz influenzae type b vaccine, conjugate unspecified formulationP[facility]07-14-2003 haemophilus influenzae type b vaccine, HbOC conjugateAmanda Lapponi RT(R) [facility] AdministrationJqjihx71-34-9756shogqfxkl B vaccine, pediatric or pediatric/adolescent dosageAmanda Lapponi RT(R)[facility] AdministrationDqfyeq58-52-8285ermmzbondbes conjugate vaccine, 7 valentPunxsutawney [facility] Hospital07-14-2003pneumococcal Conjugate, unspecified formulationAmanda Lapponi RT(R)[facility]05-12-2003 diphtheria, tetanus toxoids and acellular pertussis vaccineAmanda Lapponi RT(R) [facility] AdministrationLkoaeo13-75-6025kfuwvjngkrw influenzae type b vaccine, conjugate unspecified formulationP[facility]05-12-2003 haemophilus influenzae type b vaccine, HbOC conjugateAmanda Lapponi RT(R) [facility] AdministrationWhjtgg13-58-5382qriilakuqj vaccine, inactivatedAmanda Lapponi RT(R) [facility] AdministrationUryscn82-64-7313ldeynnjwst, tetanus toxoids and acellular pertussis vaccineAmanda Lapponi RT(R)[facility] AdministrationXwwcfs56-64-1279uurullkluik influenzae type b vaccine, conjugate unspecified formulationP[facility]xs[facility]03-11-2003haemophilus influenzae type b vaccine, HbOC conjugateAmanda Lapponi RT(R)[facility] AdministrationMxogzj81-46-0596paprzjslf B vaccine, pediatric or pediatric/adolescent dosageAmanda Lapponi RT(R)[facility]03-11-2003 pneumococcal conjugate vaccine, 7 valSelect [facility] 19-36-1256jstdocugkjrl Conjugate, unspecified formulationAmanda Lapponi RT(R) [facility] AdministrationRyuupi86-68-9672axyafzrelx vaccine, inactivatedAmanda Lapponi RT(R) [facility] AdministrationOuhptu51-31-9979ejrbevvqp B vaccine, pediatric or pediatric/adolescent dosageAmanda Lapponi RT(R)[facility] Payers DatePayer CategoryPayerPolicy [id number]-[id number] 2021MedicaidPARAMOUNT MEDICAID PARAMOUNT ADVANTAGE MEDICAID [id number] 2021-[facility] [phone] [id number] Medicaid [id number] 2021Medicaid [id number] 2.16.840.1.858929.3.57[id number] 2.16.840.1.632990.3.57[id number] 2.16.840.1.756814.3.57[id number] 2.16840.1.134900.3.57[id number] 2.16.840.1.882203.3.579.2.92329-00-1869Imtgelv0385811 2.16840.1.889196.3.579.2.98019-80-3412Xdtcjhn2151521 2.16.840.1.861863.3.579.2.38453-43-7617Jvxfohz8421901 2.16840.1.894577.3.57[id number] 2.16.840.1.138953.3.579.2.1[id number] 2.16840.1.879430.3.57[id number] 2.16.840.1.583983.3.579.2.191598-20-1315Kxbxkbr72268211 2.16840.1.324285.3.579.2.895192-49-0457Vewiqpt89057651 2.16.840.1.864821.3.579.2.967825-08-9718Dskhszg78686169 2.16840.1.048186.3.579.2.625678-09-5314Rbshhvb32453111 2.16.840.1.634024.3.579.2.969176-57-2870Geimkny85513020 2.16.840.1.286736.3.579.2.734879-64-5940Jylatdj92219185 2.16840.1.971717.3.579.2.104492-90-5038Rahkggx58854180 2.16840.1.231552.3.579.2.467067-02-5082Gskjegt60547364 2.840.1.235081.3.579.2.084361-44-4294Vqlbgmt01870048 2.840.1.463731.3.579.2.54589-00-8954Arajsyn66244168 2.840.1.480902.3.579.2.22029-27-9802Folgtvi06962041 2.840.1.937700.3.579.2.54446-77-1740Xoeytmq96380144 2.840.1.911426.3.579.2.02451-38-7931Wrlxovn850292394 2.840.1.718810.3.579.2.525824-97-4280Oxocgsd67402729 2.840.1.340335.3.579.2.359982-67-3499Eeywvms53469992 2.840.1.278893.3.579.2.072197-62-5218Ymsxxmj37113851 2.16840.1.133334.3.579.2.030274-92-8231Uqfglkc67344102 2.840.1.059861.3.579.2.969612-56-3877Qbonxif26156021 2.840.1.668430.3.579.2.115758-48-1624Tatopiw29286506 2.840.1.554493.3.579.2.601085-94-0442Apsnasa57356840 2.840.1.738306.3.579.2.575084-56-5800Yrcnytl964828437 2.0.1.749951.3.579.2.197213-97-9711Wriixty065008462 2..1.857005.3.579.2.739253-66-3988Jiyslwb88014938 2.0.1.688233.3.579.2.235345-74-1055Adohoce01542727 2..1.143989.3.579.2.832705-06-6264Nypevqx50351976 2..1.753575.3.579.2.052599-23-4794Slswcne19718604 2..1.745059.3.579.2.371487-44-2526Lzuwwfy85059252 2..1.155636.3.579.2.155086-35-0114Qzybgoc62672432 2..1.862175.3.579.2.383514-81-0620Alausom03518626 2.0.1.942817.3.579.2.604557-88-9760Jfmdwqo6758919 2..1.812342.3.579.2.724231-99-8224Itlfzhl1702759 2..1.436031.3.579.2.1259 [id number] [id number] 2.0.1.071546.3.579.2.568Ovmjffz61322548 2.16.840.1.253348.3.579.2.531 Social History DateTypeDetailFacilityStart: 12-30-2021 End: 96-72-3854Txcxjwy smoking status NHISNever smoked tobaccoVeterans Health Administration Start: 12-22-2021 End: 88-14-8085Dshuyhq intakeCurrent non-drinker of alcohol (finding)[facility]: 26-95-6038Ihy Assigned At BirthNot on fileManassas ClinicStart: 12-19-2021 End: 35-57-7849Fzqjdwdj to SARS-CoV-2 (event)Not sureLake County Memorial Hospital [facility] Westtart: 12-30-2021 End: 43-66-0688Pgulkkd use and exposureSmokeless tobacco non-userLake County Memorial Hospital - Westtart: 10-13-2022 End: 46-06-6881Qvz [facility]igned At [facility]ert[facility]: 06-78-0561Ihqubpz Commentno one in household smokesCcleveland [facility] ClinicStart: 10-13-2022 End: 34-52-9680Yslxman of Social functionLake County Memorial Hospital - Westtart: 77-03-5903Zkglu Depression Screening Lzztdmjskc0Uwuuarard ClinicStart: 50-59-1548Gev Assigned At BirthK[facility]tering Health Hamiltontart: 07-17-2024 End: 52-62-1005Gxrvrctju beverage intakeEx-drinker (finding)[facility] HealthcareHow often to you have a drink containing alcohol?NeverNOMS HealthcareStart: 50-70-6338Cxqfgrr Commentcaffeine: noneNOMS HealthcareStart: 64-95-9027Tskfrv identityIdentifies as female gender (finding)[facility] HealthcareStart: 09-11-2024 End: 07-29-4900Esxcglokr beverage intakeCurrent drinker of alcohol (finding) [facility] SystemStart: 73-25-0232Tdlmvmt Commentq 1x per monthProFayette County Memorial Hospital SystemStart: 03-03-2017 End: 16-19-4197AwjRengvt (finding)[facility] SystemStart: 01-11-2025 Alcoholic beverage intakeLifetime non-drinker (finding)Darek Page [facility] Centercheko [facility] Start: 36-38-0272efafnfxkNbsubmzrmTrumbull Memorial HospitalHas the electric, gas, oil, or water company threatened to shut off services in your home in past 12Mo NoProMedinfirmary west Health SystemHow often to you have a [...] got money to buy more.Sometimes trueNOMS HealthcareStart: 58-82-8915Cizrrka Commentcaffeine: occasionallyNOMS HealthcareNEGATED: Highlighted rowRegional Medical Center Medical Equipment Procedure CodeEquipment CodeEquipment Original TextEquipment IdentifierDatesTube Vent 4.8mm 1.32mm [facility] Centerd - [id number]: 29-80-3783Fytc Malena Vernon Vent 520-181 - [id number]: 01-80-6200Ltrq Gabo Valladares Bx/5 Bill - [id number]: 11-02-2017 Goals DatePatient GoalDesired Activity/StatePersonal health goalComment on above: Evaluation of progress towards goal: Safe dc transition from hospital to home. Personal health goal Functional Status JtlqIrzimygofnYcgasoJklrrwaq69-32-3393Owsfwjz Health Questionnaire 2 item (PHQ- 2) [Reported][facility] Cmxeehjvmi16-46-2691Wqyra score [AUDIT-C]2 06/11/2025 12:16 PM EDT Mychart, GenericNOMS Ajmfxfpnwq98-73-1455Mft often to you have a drink containing alcohol?Monthly or less 06/11/2025 12:16 PM EDT Mychart, Generic Monthly or lessNOMS Xfmwapunih53-70-5332Vqpkacwnts statusPatient does not drink 06/11/2025 12:16 PM EDT Mychart, Generic Patient does not drinkCameron [facility] Medical Center 40-01-9992Rfn often do you have 6 or more drinks on 1 occasion?Less than monthly 06/11/2025 12:16 PM EDT Mychart, Generic Less than monthlyCameron Regional Medical Center 36-55-4332Quwzyzv Health Questionnaire 2 item (PHQ-2) [Reported][facility] 31-85-1557Vha you deaf, or do you have serious difficulty hearingNo 08/21/2015 10:22 AM Angela Hernandez RN [facility] CenterQrjnhq84-27-5846Lnh you blind, or do you have serious difficulty seeing, even when wearing glassesNo 08/21/2015 10:22 AM Angela Hernandez RN [facility]11-13-2015Do you have serious difficulty walking or climbing stairsNo 08/21/2015 10:22 AM Angela Hernandez RN [facility]11-13-2015Do you have difficulty dressing or bathingNo 08/21/2015 10:22 AM Angela Hernandez RN [facility] Mental Status LygxRencxsvezjNohisgTdusigag36-62-7431Pwnlujl of a physical, mental, or emotional condition, do you have serious difficulty concentrating, remembering, or making decisionsNo 08/21/2015 10:22 AM Angela Hernandez RN [facility] Clinical Notes 11-17-2015 to 08-18-2025 Note Date & XdrkQmwtDcefannj98-85-3508 History of Present illness Narrative* Gualberto Vann MD - 08/18/2025 12:45 PM EST Subjective Charis Allen is a 24 y.o. at 11w2d with a working estimated date of delivery of 03/07/2026, by Last Menstrual Period who presents for an initial visit. This is planned. Her is complicated by: VD History of Present Illness OB History Para Term AB Living 3 2 SAB IAB Ectopic Multiple Live Births 2 # Outcome Date GA Lbr Dwight/2nd Weight Sex Type Anes PTL Lv 3 Current 2 SAB 11/2024 1 06/2023 D&E Objective Physical Exam Expected Total Weight Gain: Could not be calculated Pregravid BMI: Could not be calculated OBGyn Exam Labs Not completed Assessment/Plan Diagnoses and all orders for this visit: Vaginitis and vulvovaginitis - GENITAL MYCOPLASMAS JANET, SWAB - terconazole (Terazol 7) 0.4 % vaginal cream; Insert 1 applicator into the vagina at bedtime for 7days Cervicitis and endocervicitis - GENITAL MYCOPLASMAS JANET, SWAB First trimester ([facility]) - POCT urinalysis dipstick manually resulted 11 weeks gestation of ([facility]) - POCT urinalysis dipstick manually resulted Immunizations: TBD Labs ordered Daily vitamins prescribed First trimester screening and second trimester screening discussed. Patient decided to Willdecide Follow up in 4 weeks for return OB visit. US due to misccarriage history Assessment & Plan documented in this encounterCameron Regional Medical CenterTvjjgnhdup91-54-9100 Telephone encounter Note* Telephone Encounter - Gualberto Vann MD - 08/05/2025 3:32 PM EDT ok [facility] CenterRrevdfbpvg91-32-8871 Miscellaneous Notes* Telephone Encounter - Gualberto Vann MD - 08/05/2025 3:32 PM EDT ok * Telephone Encounter - Laure Dumont RN - 08/05/2025 3:27 PM EDT Called and spoke with patient. Discussed approval for work note to limit to no longer than 12 hour work days with no mandation per PPJ. Pt asking if she is able to write her a limitation for no more than 2 12-hour shifts/ week. 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 Advised I would have to get approval forthis. Pt verbalizes understanding. OK for a return call or mychart message for follow-up. * Telephone Encounter - Gualberto Vann MD - 08/05/2025 2:27 PM EDT ok * Telephone Encounter - Ariana Sue - 08/05/2025 11:31 AM EDT Pt is asking if she can get a letter for work. She stated she normally works 12 hours but sometimesthey mandate people for call offs and then she ends up working 16 hours. She said that is too much and would like to only work 24 hours a week due to high risk . Also asking if there is a way to attach letter to [employer] so she can send it to her work. She also stated the prescription that was sent is working good. Requesting call back [phone] documented in this encounterCameron Regional Medical CenterLxxvjwrstn92-74-2598 Telephone encounter Note* Telephone Encounter - Laure Dumont RN - 08/05/2025 3:27 PM EDT Called and spoke with patient. Discussed approval for work note to limit to no longer than 12 hour work days with no mandation per PPJ. Pt asking if she is able to write her a limitation for no more than 2 12-hour shifts/ week. 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 Advised I would have to get approval forthis. Pt verbalizes understanding. OK for a return call or mychart message for follow-up. [facility] Medical CenterQuafoehyhk36-53-3286 Telephone encounter Note* Telephone Encounter - Gualberto Vann MD - 08/05/2025 2:27 PM EDT ok [facility] CenterWburvmgdzy56-61-6139 Telephone encounter Note* Telephone Encounter - Ariana Sue - 08/05/2025 11:31 AM EDT Pt is asking if she can get a letter for work. She stated she normally works 12 hours but sometimesthey mandate people for call offs and then she ends up working 16 hours. She said that is too much and would like to only work 24 hours a week due to high risk . Also asking if there is a way to attach letter to [employer] so she can send it to her work. She also stated the prescription that was sent is working good. Requesting call back [phone] [facility] CenterSkxegrumfi49-24-6719 History of Present illness Narrative* Gualberto Vann MD - 08/05/2025 7:45 AM EDT Brevulvitis documented in this encounterCameron Regional Medical CenterRosgnckbgj83-05-4276 History of Present illness Narrative* Gualberto Vann MD - 07/31/2025 10:30 AM EDT Images from the original note were not included. Gualberto Vann MD Obstetrics and Gynecology Patient: Charis Allen : 2000 (24 y.o.) Yearly Wellness Exam Date: 07/31/2025 Reason for Visit - Chief Complaint Patient presents with Follow-up WT: 173 lb BP: 118/72 Follow up patient present for MORENITA, patient had a recent UTI. Patient states she still has a lot of burning. Patient was unable to get medications that were sent in yesterday due to pharmacy not having them in order until today. IUP 9 weeks Last Pap: 07/22/24 - Neg Complaints: PPW 136 Chief Complaint Cramping, nausea, burning with urination, vaginal irritation History of Present Illness Ms. Allen is a patient who presents with ongoing cramping following an emergency room visit yesterday. She continues to experience cramping and reports daily nausea and vomiting. For her nausea, she is currently using generic Zofran (ondansetron) every 6 hours as needed, though it appears to not be providing adequate relief. She has not tried other anti-nausea medications such as vitamin B6 or Unisom. Her pre- weight was 136 pounds, and she has gained weight appropriately during her . She reports burning with urination and vaginal irritation. She has a penicillinallergy and is currently awaiting treatment with vancomycin for what appears to be a specific infection that required two antibiotics based on sensitivity testing. The patient had some laboratory work sent on Monday related to a spread of disease that has since stopped. Medications and Supplements - Generic Zofran for nausea. - Take every 6 hours as needed. - Vitamin B6. - Unison. - Vancomycin. Review of Systems General: Positive for nausea. Gastrointestinal: Positive for nausea, vomiting. Genitourinary: Positive for burning with urination, vaginal irritation. Musculoskeletal: Positive for cramping. History of Present Illness Visit Vitals LMP 05/31/2025 OB Status Smoking Status Never History of Present Illness, Associated Treatments and Results - OB History Para Term AB Living 3 0 0 0 2 0 SAB IAB Ectopic Multiple Live Births 2 0 0 0 0 # Outcome Date GA Lbr Dwight/2nd Weight Sex Type Anes PTL Lv 3 Current 2 SAB 11/2024 1 SAB 06/2023 D&E Review of Systems - Constitutional: Negative. HENT: Negative. Eyes: Negative. Respiratory: Negative. Cardiovascular: Negative. Gastrointestinal: Negative. Endocrine: Negative. Genitourinary: Negative. Musculoskeletal: Negative. Skin: Negative. Allergic/Immunologic: Negative. Neurological: Negative. Hematological: Negative. Psychiatric/Behavioral: Negative. Allergies[1] Current Medications[2] Medical History[3] Surgical History[4] Family History[5] Tobacco Use History[6] Physical Exam - General appearance, mentation, extraocular [...] normal. Behavior: Behavior normal. Assessment/Plan ICD-10-CM 1. 9 weeks gestation of ([facility] Z3A.09 2. Vaginal burning N94.89 3. Vaginal irritation N89.8 4. Vaginal itching N89.8 5. Nonintractable headache, unspecified chronicity pattern, unspecified headache type R51.9 Ambulatory referral to Neurology 6. Vaginitis and vulvovaginitis N76.0 NuSwab Vaginitis Plus (VG+) 7. Cervicitis and endocervicitis N72 NuSwab Vaginitis Plus (VG+) 8. Spotting N92.0 Assessment & Plan Patient Tiffany presents with ongoing cramping after ER visit yesterday, with nausea during and urinary symptoms requiring antibiotic treatment. with nausea and cramping Assessment: Patient is with ongoing cramping that persisted after ER visit yesterday. She has nausea requiring antimedication management. Pre- weight was 136 pounds and she has gained appropriate weight during . has been confirmed by ultrasound and test. Plan: - Continue generic Zofran (ondansetron) every 6 hours as needed for nausea - Consider vitamin B6 and Unisom for additional nausea management if current medication not effective Unremarkable US with cardiac activity today Urinary tract infection Assessment: Patient has urinary symptoms with burning on urination. Culture results showed specificbacterial sensitivity requiring targeted antibiotic therapy. Patient has penicillin allergy which limits antibiotic options. Two antibiotics were prescribed based on sensitivity results and allergy co nsiderations. Vancomycin is being considered as treatment option. Plan: - Awaiting vancomycin treatment decision based on bacterial sensitivity and penicillin allergy - Two antibiotics prescribed based on culture sensitivity and safety profile Possible vaginal yeast infection Assessment: Patient questioned about vaginal irritation and yeast infection symptoms. Burning with urination may be related to urinary tract infection rather than yeast infection. Plan: - Monitor symptoms to differentiate between UTI and yeast infection [1] Allergies Allergen Reactions Cyproheptadine Diarrhea Other Reaction(s): [...] Penicillin G Sodium Rash Other reaction(s): rash [2] Current Outpatient Medications: clindamycin (Cleocin T) 1 % external solution, Apply topically in the morning and before bedtime. APPLY TO AFFECTED AREAS ON FACE ONCE A DAY. (Patient not taking: Reported on 07/18/2025), Disp: 30 mL, Rfl: 3 clindamycin (Cleocin) 300 MG capsule, Take 1 capsule (300 mg) by mouth in the morning and 1 capsule(300 mg) at noon and 1 capsule (300 mg) in the evening and 1 capsule (300 mg) before bedtime. Do all this for 10 days., Disp: 40 capsule, Rfl: 0 meclofenamate (Meclomen) 100 MG capsule, One tablet tid on menses No hormones due to Chiari malformation (Patient not taking: Reported on 07/18/2025), Disp: 120 capsule, Rfl: 2 methylphenidate ER (Concerta) 18 MG CR tablet, Take 1 tablet (18 mg) by mouth in the morning. Do not crush, chew, or split. (Patient not taking: Reported on 07/18/2025), Disp: 30 tablet, Rfl: 0 ondansetron (Zofran) 4 MG tablet, Take 1 tablet (4 mg) by mouth 2 (two) times a day as needed for nausea or vomiting, Disp: 20 tablet, Rfl: 0 Vit-Fe Fumarate-FA ( Vitamins) 28-0.8 MG tablet, Take 1 tablet by mouth Daily, Disp: 30 tablet, Rfl: 11 vancomycin (Vancocin) 250 MG capsule, Take 1 capsule (250 mg) by mouth in the morning and 1 capsule(250 mg) at noon and 1 capsule (250 mg) in the evening and 1 capsule (250 mg) before bedtime. Do all this for 10 days., Disp: 40 capsule, Rfl: 0 [3] Past Medical History: Diagnosis Date Blood type A+ Chiari syndrome (HCC) 12/27/2022 History of chicken pox Migraines Seasonal allergies [4] Past Surgical History: Procedure Laterality Date APPENDECTOMY 2012 BRAIN SURGERY 2022 d/t chiari syndrome DILATION AND CURETTAGE OF UTERUS 2022 suction D&C TONSILLECTOMY 2011 & adenoids TYMPANOSTOMY TUBE PLACEMENT Right permanant tube [5] Family History Problem Relation Name Age of Onset Asthma Mother No Known Problems Father No Known Problems Maternal Grandmother No Known Problems Maternal Grandfather Breast cancer Paternal Grandmother Lung cancer Paternal Grandmother Thyroid disease Paternal Grandmother Leukemia Paternal Grandfather [6] Social History Tobacco Use Smoking Status Never Smokeless Tobacco Never documented in this [facility]10-22-2025 History of Present illness Narrative* Gualberto Vann MD - 07/30/2025 1:40 PM EDT UTI documented in this [facility]10-10-2025 History of Present illness Narrative* Laure Dumont [...] of estimated date of delivery No Thalassemia (Yakut, Polish, Mediterranean, or background): MCV less than 80 No Neural tube defect (Meningomyelocele, Spina bifida, or Anencephaly) No Congenital heart defect No Down syndrome No Abdoulaye-Sachs (Ashkenazi Lutheran, Cajun, Serbian Cambodian) No Mima disease (Ashkenazi Lutheran) No Familial dysautonomia (Ashkenazi Lutheran) No Sickle cell disease or trait () [...] - ASSESSMENT / PLAN Labs Ordered to [facility] per pt request. Printed orders for pt to take with. Aware she will need these completed prior to NOB. Appointments scheduled for 07/31/25 with OBUS and 08/18/25 with PPJ Laure Dumont RN 07/18/2025 11:50 AM documented in this encounterCameron Regional Medical [id number] Miscellaneous Notes* Telephone Encounter - Doris Mary - 07/04/2025 12:58 PM EDT Spoke with Charis to let her know that Dr. Barbosa does not follow for headaches during and that she would need to follow with Neurology for headaches during her and transferred to Neurology documented [facility]09[facility] Telephone encounter Note* Telephone Encounter - Doris Hernandez - 07/04/2025 12:58 PM EDT Spoke with Charis to let her know that Dr. Barbosa does not follow for headaches during and that she would need to follow with Neurology for headaches during her and transferred to Neurology [facility]09-25-2025 Miscellaneous Notes* Telephone Encounter - Otilia Oviedo - 07/03/2025 8:37 AM EDT Account Service Associate contacted the patient to offer to schedule from referral that was written by Xiao Ellis. She stated that she would prefer to schedule with neurosurgery. Account Service Associate transferred to neurosurgery. documented in this encounterWestern [facility] Hospital09-25-2025 Telephone encounter Note* Telephone Encounter - Otilia Oviedo - 07/03/2025 8:37 AM EDT Account Service Associate contacted the patient to offer to schedule from referral that was written by Xiao Ellis. She stated that she would prefer to schedule with neurosurgery. Account Service Associate transferred to neurosurgery. [facility]09-05-2025 History of Present illness Narrative* Pete Thapa [...] crush, chew, or split. documented in this [facility]09-03-2025 History of Present illness Narrative* Gualberto Vann MD - 06/11/2025 3:36 PM EDT UTI documented in this [facility]09-02-2025 History of Present illness Narrative* Gualberto Vann [...] Assessment/Plan ICD-10-CM 1. 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 Exact number and timing not specified. Etiology unclear at this time. Plan: - Refer to evaluation analyst for comprehensive evaluation of recurrent miscarriages - Advise patient that future pregnancies may be complicated due to Chiari malformation, necessitating specialized care Chiari Malformation Assessment: Patient has a known diagnosis of Chiari malformation. This condition may complicate future pregnancies. Plan: - Emphasize importance of specialized care for any future pregnancies due to Chiari malformation - Ensure evaluation analyst is aware of this condition for comprehensive planning Assessment & Plan documented in this encounterCameron Regional Medical [id number] Telephone encounter Note* Telephone Encounter - Otilia Gomez LPN - 03/19/2025 7:33 AM EDT Patient phones requesting refills as follows: BERENICE: 08/16/2023 FOV: none noted Patient will need follow up appointment, routed to [facility] at this time. Requested Prescriptions Pending Prescriptions Disp Refills clindamycin (CLEOCIN) 1 % external solution [Pharmacy Med Name: CLINDAMYCIN PH 1% SOLUTION] 60 mL 0 Sig: APPLY TO AFFECTED AREAS ON FACE ONCE EVERYDAY Please review and advise. Otilia Gomez LPN [facility]06-11-2025 Miscellaneous Notes* Telephone Encounter - Otilia Gomez LPN - 03/19/2025 7:33 AM EDT Patient phones requesting refills as follows: BERENICE: 08/16/2023 FOV: none noted Patient will need follow up appointment, routed to [facility] at this time. Requested Prescriptions Pending Prescriptions Disp Refills clindamycin (CLEOCIN) 1 % external solution [Pharmacy Med Name: CLINDAMYCIN PH 1% SOLUTION] 60 mL 0 Sig: APPLY TO AFFECTED AREAS ON FACE ONCE EVERYDAY Please review and advise. Otilia Gomez LPN documented in this encounterVeterans Health Administration05-13-2025 Radiology [facility] Main [place] [address] [place] [address] Ultrasound Report Signed Patient: Charis Allen MR#: [id number] [id number] : 2000 Acct:[id number] Age/Sex: 24 / F ADM Date: 5 Loc: ER Room: Type: [facility] ER Attending Dr: Ordering Provider: Yaritza Bauer APRN Date of Service: 02/18/25 US/US OB <= 14 weeks fetus: Abdominal Pain ([id number]) US/US OB transvaginal: R/O ECTOPIC Copies to: [...] Camacho M.D. 02/18/2025 8:45 PM Dictation Location: [place] [address] Tech: Roselia Cueva Transcribed By: REMINGTON 02/18/252044 Dictated By: Michael Camacho DO 02/18/252034 Signed By: 02/18/252044 [facility]04-02-2025 Telephone encounter Note* Telephone Encounter - Liz Oswald MA - 01/08/2025 8:50 AM EDT Patient phones requesting refills as follows: BERENICE: 01/04/2023 FOV: 02/19/2025 Requested Prescriptions Pending Prescriptions Disp Refills clindamycin (CLEOCIN) 1 % external solution 60 mL 0 Sig: APPLY TO AFFECTED AREAS ON FACE ONCE A DAY Please review and advise. Liz Oswald MA [facility]04-02-2025 Miscellaneous Notes* Telephone Encounter - Liz Oswald MA - 01/08/2025 8:50 AM EDT Patient phones requesting refills as follows: BERENICE: 01/04/2023 FOV: 02/19/2025 Requested Prescriptions Pending Prescriptions Disp Refills clindamycin (CLEOCIN) 1 % external solution 60 mL 0 Sig: APPLY TO AFFECTED AREAS ON FACE ONCE A DAY Please review and advise. Liz Oswald MA documented in this encounterVeterans Health Administration04-01-2025 Telephone encounter Note * Telephone Encounter - Anish Levin MD - 01/07/2025 11:27 AM EDT Temporary refill until patient is seen as it has been greater than 1 year since last appointment. Please call patient and schedule a follow up appointment for acne within next 2 months. Anish Levin MD [facility]04-01-2025 Miscellaneous Notes* Telephone Encounter - Anish Levin [...] need a follow up appointment, routed to helper animal laboratory. Requested Prescriptions Pending Prescriptions Disp Refills clindamycin (CLEOCIN) 1 % external solution [Pharmacy Med Name: CLINDAMYCIN PH 1% SOLUTION] 60 mL 3 Sig: APPLY TO AFFECTED AREAS ON FACE ONCE A DAY Please review and advise. RONALD [place] documented in this encounterVeterans Health Administration04-01-2025 Telephone encounter Note * Telephone Encounter - Lata Rider OCCA - 01/07/2025 8:21 AM EDT Patient phones requesting refills as follows: BERENICE: 08/16/23 Patient will need a follow up appointment, routed to helper animal laboratory. Requested Prescriptions Pending Prescriptions Disp Refills clindamycin (CLEOCIN) 1 % external solution [Pharmacy Med Name: CLINDAMYCIN PH 1% SOLUTION] 60 mL 3 Sig: APPLY TO AFFECTED AREAS ON FACE ONCE A DAY Please review and advise. RONALD Montenegro [facility]02-14-2025 Telephone encounter Note* Telephone Encounter - Lily Lutz - 11/22/2024 1:37 PM EST Refill of concerta [facility] [id number] Miscellaneous Notes* Telephone Encounter - Lily Lutz - 11/22/2024 1:37 PM EST Ref[facility] of concerta [facility] [place] documented in this encounterCameron Regional Medical [id number] History of Present illness Narrative* Luis Enrique Jennings DO - 11/04/2024 1:45 PM EST [facility] - ENT [address], [address] [place] [address] SUBJECTIVE: Patient ID (2000): Charis Allen is [...] 11/02/2017 Performed by Karthikeyan Lopez MD at [facility] APPENDECTOMY 2016 APPLICATION GRAFT PAPER PATCH EAR Right 06/04/2024 Performed by Mich Vedre MD at [facility] BRAIN SURGERY CRANIOTOMY CHIARI DECOMPRESSION / N/A 01/27/2023 Performed by Ajay Barbosa MD at [facility] CYSTOSCOPY RETROGRADE PYELOGRAM Bilateral 11/30/2022 Performed by Jocelyne Hernandez MD at [facility] SURGERY DILATION AND CURETTAGE OF UTERUS 07/31/2023 DIRECT LARYNGOSCOPY WITH BIOPSY BASE OF TONGUE LESION Right 08/27/2024 Performed by Luis Enrique Jennings DO at [facility] EUSTACHIAN TUBE DILATION Bilateral 11/02/2017 Performed by Karthikeyan Lopez MD at [facility] POSTERIOR LAMINECTOMY CERVICAL SINGLE LEVEL / C1 N/A 01/27/2023 Performed by Ajay Barbosa MD at [facility] REMOVAL TUBE EAR Right 06/04/2024 Performed by Mich Verde MD at [facility] TONSILLECTOMY TYMPANOSTOMY TUBE PLACEMENT TYMPANOTOMY WITH PERMANENET VENT TUBE INSERTION. 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 Social Drivers of Health Financial Resource Strain: Patient Declined (11/12/2023) [facility] Overall Financial Resource Strain (CARDIA) Difficulty of Paying Living Expenses: Patient declined Food Insecurity: No Food Insecurity (08/20/2024) Hunger Screening Food Insecurity - Worry: Never True Food Insecurity - Inability: Never True Transportation Needs: Patient Declined (11/12/2023) [facility] PRAPARE - Transportation Lack of Transportation (Medical): Patient declined Lack of Transportation (Non-Medical): Patient declined Physical Activity: Patient Declined (11/12/2023) Re[facility] Exercise Vital Sign Days of Exercise per Week: Patient declined Minutes of Exercise per Session: Patient declined Stress: Not on file Social Connections: Unknown (11/12/2023) Received from [facility] Social Connection and Isolation Panel [NHANES] Frequency of Communication with Friends and Family: Patient declined Frequency of Social Gatherings with Friends and Family: Patient declined Attends Gnosticism Services: Not on file Active Member of Clubs or Organizations: Patient declined Attends Club or Organization Meetings: Patient declined Marital Status: Patient declined Interpersonal Safety: Patient Declined (11/12/2023) [facility], [facility] Humiliation, Afraid, Rape, and Kick questionnaire [...] this chart were generated using voice recognition [employer] dictation software. Although every effort was made to ensure the accuracy of this automated dividing machine operator helper, some errors in dividing machine operator helper may have occurred. documented in this encounterOhioHealth Pickerington Methodist HospitalIntermedia [id number] Instructions* Patient Instructions* Francisco Garcia - 11/04/2024 1:45 PM EST - Patient has no pain and is eating/drinking per norm. Biopsy site is well- healed on exam. - Return as needed. documented in this encounterWestern [facility]01-20-2025 History of Present illness Narrative* Gualberto Vann MD - 10/28/2024 10:57 AM EST UP documented in this encounterCameron Regional Medical [id number] History of Present illness Narrative* Gualberto Vann [...] (CMS/HCC) 12/27/2022 History of chicken pox Migraines ([facility]) Seasonal allergies Past Surgical History: Procedure Laterality [...] and response to treatment. documented in this encounterCameron Regional Medical [id number] History of Present illness Narrative* Pete Thapa, - 10/21/2024 1:40 PM EST Images from [...] Insecurity: No Food Insecurity (08/20/2024) Re[facility] Hunger Screening Within the past 12 [...] with Friends and Family: Patient declined Attends Gnosticism Services: Not on file Active Member of [...] 30 tablet, Rfl: 0 documented in this encounterCameron Regional Medical CenterYlidnihsvl73-19-0827 Telephone encounter Note* Telephone Encounter - Otilia Gomez LPN - 09/12/2024 8:39 AM EST Patient phones requesting refills as follows: BERENICE: 08/16/2023 FOV: 10/10/2024 Requested Prescriptions Pending Prescriptions Disp Refills clindamycin (CLEOCIN) 1 % external solution [Pharmacy Med Name: CLINDAMYCIN PH 1% SOLUTION] 60 mL 3 Sig: APPLY TO AFFECTED AREAS ON FACE ONCE A DAY Please review and advise. Otilia Gomez LPN [facility]12-05-2024 Miscellaneous Notes* Telephone Encounter - Otilia Gomez [...] advise. Otilia Gomez LPN documented in this encounterVeterans Health Administration12-04-2024 History of Present illness Narrative* Osbaldo-Catie Jennings DO - 09/11/2024 10:30 AM EST Images from the original note were not included. [facility] - E[place] [address] [place] [address], [address] [address] SUBJECTIVE: Patient ID (2000): Charis Allen is [...] 11/02/2017 Performed by Karthikeyan Lopez MD at [facility] APPENDECTOMY 2016 APPLICATION GRAFT PAPER PATCH EAR Right 06/04/2024 Performed by Mich Verde MD at [facility] CRANIOTOMY CHIARI DECOMPRESSION / N/A 01/27/2023 Performed by Ajay Barbosa MD at [facility] CYSTOSCOPY RETROGRADE PYELOGRAM Bilateral 11/30/2022 Performed by Jocelyne Hernandez MD at [facility] DILATION AND CURETTAGE OF UTERUS 07/31/2023 DIRECT LARYNGOSCOPY WITH BIOPSY BASE OF TONGUE LESION Right 08/27/2024 Performed by Luis Enrique Jennings DO at [facility] EUSTACHIAN TUBE DILATION Bilateral 11/02/2017 Performed by Karthikeyan Lopez MD at [facility] POSTERIOR LAMINECTOMY CERVICAL SINGLE LEVEL / C1 N/A 01/27/2023 Performed by Ajay Barbosa MD at [facility] REMOVAL TUBE EAR Right 06/04/2024 Performed by Mich Verde MD at [facility] TONSILLECTOMY TYMPANOSTOMY TUBE PLACEMENT TYMPANOTOMY WITH PERMANENET VENT TUBE INSERTION. 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 Social Drivers of Health Financial Resource Strain: Patient Declined (11/12/2023) Received from [facility] Overall Financial Resource Strain (CARDIA) Difficulty of Paying Living Expenses: Patient declined Food Insecurity: No Food Insecurity (08/20/2024) Hunger Screening Food Insecurity - Worry: Never True Food Insecurity - Inability: Never True Transportation Needs: Patient Declined (11/12/2023) Received from [facility] PRAPARE - Transportation Lack of Transportation (Medical): Patient declined Lack of Transportation (Non-Medical): Patient declined Physical Activity: Patient Declined (11/12/2023) Received from [facility] Exercise Vital Sign Days of Exercise per Week: Patient declined Minutes of Exercise per Session: Patient declined Stress: Not on file Social Connections: Unknown (11/12/2023) Received from [facility] Social Connection and Isolation Panel [NHANES] Frequency of Communication with Friends and Family: Patient declined Frequency of Social Gatherings with Friends and Family: Patient declined Attends Gnosticism Services: Not on file Active Member of Clubs or Organizations: Patient declined Attends Club or Organization Meetings: Patient declined Marital Status: Patient declined Interpersonal Safety: Patient Declined (11/12/2023) Received from [facility] Humiliation, Afraid, Rape, and Kick questionnaire [...] this chart were generated using voice recognition [employer] dictation software. Although every effort was made to ensure the accuracy of this automated dividing machine operator helper, some errors in dividing machine operator helper may have occurred. documented in this encounterVermont Psychiatric Care HospitalEnerG212-04-2024 Instructions* Patient Instructions* Francisco Garcia - 09/11/2024 10:30 AM EST - Reviewed patient's surgical pathology from direct laryngoscopy with biopsy of base of tongue lesion. This showed benign papillomatous neoplasm. - On exam, biopsy site healing well with granulation/exudates from cautery. - Return to ENT in 4-6 weeks if needed to check biopsy site. documented in this encounterWestern Reserve Hospital12-03-2024 History of Present illness Narrative* Mich Verde [...] 11/02/2017 Performed by Karthikeyan Lopez MD at [facility] APPENDECTOMY 2016 APPLICATION GRAFT PAPER PATCH EAR Right 06/04/2024 Performed by Mich Verde MD at [facility] CRANIOTOMY CHIARI DECOMPRESSION / N/A 01/27/2023 Performed by Ajay Barbosa MD at [facility] CYSTOSCOPY RETROGRADE PYELOGRAM Bilateral 11/30/2022 Performed by Jocelyne Hernandez MD at [facility] SURGERY DILATION AND CURETTAGE OF UTERUS 07/31/2023 DIRECT LARYNGOSCOPY WITH BIOPSY BASE OF TONGUE LESION Right 08/27/2024 Performed by Luis Enrique Jennings DO at [facility] EUSTACHIAN TUBE DILATION Bilateral 11/02/2017 Performed by Karthikeyan Lopez MD at [facility] POSTERIOR LAMINECTOMY CERVICAL SINGLE LEVEL / C1 N/A 01/27/2023 Performed by Ajay Barbosa MD at [facility] REMOVAL TUBE EAR Right 06/04/2024 Performed by Mich Verde MD at [facility] TONSILLECTOMY TYMPANOSTOMY TUBE PLACEMENT TYMPANOTOMY WITH PERMANENET VENT TUBE INSERTION. TYMPANOTOMY WITH NONPERMANENT TUBE IN LEFT EAR Bilateral 11/02/2017 Performed by Karthikeyan Lopez MD at [facility] SOCIAL HISTORY Social History Tobacco Use Smoking [...] Martin MA 09/10/24 1605 documented in this encounterWestern Reserve Hospital12-03-2024 Instructions* Patient Instructions* Linette Gurrola - 09/10/2024 4:15 PM EST - Microscopic examination was completed in office today. The ears appear to be healing well postoperatively. Cerumen was removed for the bilateral canals. - Continue watchful monitoring. documented in this encounterWestern Reserve Hospital12-03-2024 History of Present illness Narrative* SCOTT Hanley [...] other thresholds stable. Reliability: good Speech Audiometry: SRT/SENIOR MANUFACTURING TEST ENGINEER in good agreement WRS: Right Ear: Excellent (100%) Left Ear: Excellent (100%) RECOMMENDATIONS: Follow up with Dr. Mich Verde Retest as needed Patrick Hanley, [facility] [employer] documented in this encounterWestern Reserve Hospital11-27-2024 Miscellaneous Notes* Telephone Encounter - Lata Otoole [...] Monday at 1030 am. documented in this encounterWestern Reserve Hospital11-27-2024 Telephone encounter Note* Telephone Encounter - Lata [...] Dr. Jennings on Monday at 1030 am. [facility]11-26-2024 History of Present illness Narrative* Rahul Jennings DO - 09/03/2024 5:04 PM EST To help with acute post op swelling. documented in this encounterWestern Reserve Hospital11-21-2024 Miscellaneous Notes* Telephone Encounter - Orin Townsend - 08/29/2024 9:21 AM EST Patient called 08/29 because she needs a return to work note. Patient had a biopsy done on 08/27 and will be going back to work on 08/30. Patient said it is ok [facility] * Telephone Encounter - LIAM Carter - [...] as she is no longer taking the [place] painmedication she can return to work tomorrow 08/30/24. I will upload this letter to her [employer]. Asked her to give the office a call back if she is still taking her [place] and we can correct the note for a later date. documented in this encounterWestern Reserve Hospital11-21-2024 Telephone encounter Note* Telephone Encounter - Orin Townsend - 08/29/2024 9:21 AM EST Patient called 08/29 because she needs a return to work note. Patient had a biopsy done on 08/27 and will be going back to work on 08/30. Patient said it is ok to send it to her mychart. [facility] [employer] [id number] Telephone encounter Note* Telephone Encounter - LIAM Carter - 08/29/2024 9:21 AM EST Is patient okay to go back to work 08/30/24? [facility] [employer] [id number] Telephone encounter Note* Telephone Encounter - Luis Enrique Jennings DO - 08/29/2024 9:21 AM EST As long as she is no longer taking norco, she may return to work. Please provide letter. Thank you. [facility] [employer] [id number] Telephone encounter Note* Telephone Encounter - LIAM Carter - 08/29/2024 9:21 AM EST Left a message for the patient informing her that as long as she is no longer taking the [place] painmedication she can return to work tomorrow 08/30/24. I will upload this letter to her mychart. Asked her to give the office a call back if she is still taking her [place] and we can correct the note for a later date. [facility]11-12-2024 Instructions* Pre-Procedure Instructions - Carrol Schaffer RN - 08/20/2024 11:30 AM EST Your surgery/procedure is scheduled at [facility] on 08/27/2024 at 1245p Arrival Time 1045a [facility] Address: [address] [place] [address], [facility] Park in the Emergency Center Parking lot. Report to the desk editor in the Emergency/Surgery Registration lobby of the hospital. Notify your SURGEON if you develop any illness such as a cold, cough, fever, sore throat, vomiting or are hospitalized between now and your surgery. Please call Pre-Admission Clinic at [phone] if you have any questions prior to surgery. For questions the morning of surgery, call the Pre-op Department at [phone]. Medication Instructions (Do not stop your medications [...] would like to schedule therapy at a [facility] facility, please call [phone] ([phone]). Do not use lotions, creams, powders, perfume, make up, cologne or after-shaves day of surgery. Remove ALL jewelry including wedding rings, body piercings, hair extensions that contain metal, nail gibraltarian, make-up, and contact lens. You may brush your teeth the morning of surgery, but do not swallow the water. Wear your dentures and partial plates to the hospital (no adhesive). Shower the night the before. If applicable, use the CHG (chlorhexidine gluconate) soap or wipes. Please be advised, [facility] has transitioned to a cashless payment system. [...] RIGHTS AND RESPONSIBILITIES As a patient at [facility], you have the right to: Receive medical care and be informed of who is taking care of you Be treated with dignity and respect Have a family member/sales representative girls' apparel of choice and your physician notified of your admission Receive information and actively participate in decisions about your care and treatment Refuse care, treatment and services Decide who may provide your support and speak for you Access lutheran and spiritual services Participate in ethical issues [...] charges and payment methods Patient/patient sales representative girls' apparel responsibilities are to: Provide information about health status to facilitate care, treatment and services Follow the treatment, plan, keep appointments and speak up when you do not understand the plan Respect the rights of other patients and healthcare personnel Follow organizational rules and regulations that support quality care and a safe environment Fulfill financial obligations as promptly as possible [facility]11-12-2024 Miscellaneous Notes* Pre-Procedure Instructions - Carrol Schaffer RN - 08/20/2024 11:30 AM EST Your surgery/procedure is scheduled at [facility] on 08/27/2024 at 1245p Arrival Time 1045a [facility] Address: [address] [place] [address], [address] [address] in the Emergency Center Parking lot. Report to the desk editor in the Emergency/Surgery Registration lobby of the hospital. Notify your SURGEON if you develop any illness such as a cold, cough, fever, sore throat, vomiting or are hospitalized between now and your surgery. Please call Pre-Admission Clinic at [phone] if you have any questions prior to surgery. For questions the morning of surgery, call the Pre-op Department at [phone]. Medication Instructions (Do not stop your medications [...] would like to schedule therapy at a [facility] facility, please call [phone] ([phone]). Do not use lotions, creams, powders, perfume, make up, cologne or after-shaves day of surgery. Remove ALL jewelry including wedding rings, body piercings, hair extensions that contain metal, nail gibraltarian, make-up, and contact lens. You may brush your teeth the morning of surgery, but do not swallow the water. Wear your dentures and partial plates to the hospital (no adhesive). Shower the night the before. If applicable, use the CHG (chlorhexidine gluconate) soap or wipes. Please be advised, [facility] has transitioned to a cashless payment system. [...] RIGHTS AND RESPONSIBILITIES As a patient at [facility], you have the right to: Receive medical care and be informed of who is taking care of you Be treated with dignity and respect Have a family member/sales representative girls' apparel of choice and your physician notified of your admission Receive information and actively participate in decisions about your care and treatment Refuse care, treatment and services Decide who may provide your support and speak for you Access lutheran and spiritual services Participate in ethical issues [...] charges and payment methods Patient/patient sales representative girls' apparel responsibilities are to: Provide information about health status to facilitate care, treatment and services Follow the treatment, plan, keep appointments and speak up when you do not understand the plan Respect the rights of other patients and healthcare personnel Follow organizational rules and regulations that support quality care and a safe environment Fulfill financial obligations as promptly as possible documented in this encounterWestern Reserve Hospital11-09-2024 History of Present illness Narrative* Gualberto Vann MD - 08/17/2024 1:16 PM EST Leidy documented in this encounterCameron Regional Medical CenterJvztnuxteu04-72-1955 History of Present illness Narrative* Gualberto Vann [...] for hormone balance. 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 documented in this encounterCameron Regional Medical [id number] Miscellaneous Notes* Telephone Encounter - Luis Enrique Jennings DO - 08/07/2024 12:43 PM EDT Surgery Scheduling Request 08/07/24 Patient: Charis Allen : 2000 Surgical Procedure(s): Direct laryngoscopy With biopsy of right base of tongue lesion Side(s): Right Anesthesia: General Surgery Time: 30 minutes Facility Preference: [facility] Post Op Destination: Outpatient Preop Anesthesia Appointment?: Yes Lab Testing?: No Medical Clearance Required?: No Does medical clearance include perioperative management of anticoagulants? No When should patient follow up after surgery? 1-[address] Jennings documented in this encounterVermont Psychiatric Care HospitalEnerG210-30-2024 Telephone encounter Note* Telephone Encounter - Luis Enrique Jennings DO - 08/07/2024 12:43 PM EDT Surgery Scheduling Request 08/07/24 Patient: Charis Allen : 2000 Surgical Procedure(s): Direct laryngoscopy With biopsy of right base of tongue lesion Side(s): Right Anesthesia: General Surgery Time: 30 minutes Facility Preference: [facility] Post Op Destination: Outpatient Preop Anesthesia Appointment?: Yes Lab Testing?: No Medical Clearance Required?: No Does medical clearance include perioperative management of anticoagulants? No When should patient follow up after surgery? 1-[address] Jennings [place] Work Phone: [phone] History of Present illness Narrative* Luis Enrique Jennings DO - 08/07/2024 10:00 AM EDT Images from the original note were not included. [facility], [facility]SE AND THROAT [address] [place] [address] [place] [id number] SUBJECTIVE: Patient ID (2000): Charis Allen is [...] has allergies but does not have an machine welt butter. She takes Claritin.She takes a throat numbing [...] Laterality Date ADENOIDECTOMY Bilateral 11/02/2017 Performed by Karthikyean Lopez MD at [facility] APPENDECTOMY 2016 APPLICATION GRAFT PAPER PATCH EAR Right 06/04/2024 Performed by Mich Verde MD at [facility] CRANIOTOMY CHIARI DECOMPRESSION / N/A 01/27/2023 Performed by Ajay Barbosa MD at [facility] CYSTOSCOPY RETROGRADE PYELOGRAM Bilateral 11/30/2022 Performed by Jocelyne Hernandez MD at [facility] SURGERY DILATION AND CURETTAGE OF UTERUS 07/31/2023 EUSTACHIAN TUBE DILATION Bilateral 11/02/2017 Performed by Karthikeyan Lopez MD at [facility] POSTERIOR LAMINECTOMY CERVICAL SINGLE LEVEL / C1 N/A 01/27/2023 Performed by Ajay Barbosa MD at [facility] REMOVAL TUBE EAR Right 06/04/2024 Performed by Mich Verde MD at [facility] TONSILLECTOMY TYMPANOSTOMY TUBE PLACEMENT TYMPANOTOMY WITH PERMANENET VENT TUBE INSERTION. 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 Social Drivers of Health Financial Resource Strain: Patient Declined (11/12/2023) Received from [facility] Overall Financial Resource Strain (CARDIA) Difficulty of Paying Living Expenses: Patient declined Food Insecurity: No Food Insecurity (08/20/2024) Hunger Screening Food Insecurity - Worry: Never True Food Insecurity - Inability: Never True Transportation Needs: Patient Declined (11/12/2023) Received from [facility] PRAPARE - Transportation Lack of Transportation (Medical): Patient declined Lack of Transportation (Non-Medical): Patient declined Physical Activity: Patient Declined (11/12/2023) Received from [facility] Exercise Vital Sign Days of Exercise per Week: Patient declined Minutes of Exercise per Session: Patient declined Stress: Not on file Social Connections: Unknown (11/12/2023) Received from [facility] Social Connection and Isolation Panel [NHANES] Frequency of Communication with Friends and Family: Patient declined Frequency of Social Gatherings with Friends and Family: Patient declined Attends Gnosticism Services: Not on file Active Member of Clubs or Organizations: Patient declined Attends Club or Organization Meetings: Patient declined Marital Status: Patient declined Interpersonal Safety: Patient Declined (11/12/2023) Received from [facility] Humiliation, Afraid, Rape, and Kick questionnaire [...] Continuous Caden Thomas MD 100 mL/hr at 100 mL/hr at 08/27/24 0851 lidocaine PF [...] flush 3 mL 3 mL intravenous Q12H [facility] Caden Thomas MD REVIEW OF SYSTEMS: Review [...] laryngoscopy video with Sadia. This showed a ipdvs-wzvg-er-tongue lesion that is possibly a papilloma versus [...] be put on a regimen by an machine welt butter or undergo immunotherapy if indicated. She respectfully [...] covered benefit. Patient may call Jamil at [phone] to schedule surgery. - POSTOP INSTRUCTIONS You [...] concerns please do not hesitate to call [phone] Dr. Luis Enrique Jennings Scribe Statement: Scribed [...] this chart were generated using voice recognition [employer] dictation software. Although every effort was made to ensure the accuracy of this automated dividing machine operator helper, some errors in dividing machine operator helper may have occurred. documented in this encounterVermont Psychiatric Care HospitalEnerG210-30-2024 Instructions* Patient Instructions* Francisco Garcia - 08/07/2024 10:00 AM EDT - Reviewed patient's CT neck soft tissue. This was unremarkable. - Reviewed patient's previous flexible laryngoscopy video with Sadia. This showed a wellf-wxnx-ul-tongue lesion that is possibly a papilloma versus [...] be put on a regimen by an machine welt butter or undergo immunotherapy if indicated. She respectfully [...] covered benefit. Patient may call Jamil at [phone] to schedule surgery. - POSTOP INSTRUCTIONS You [...] concerns please do not hesitate to call [phone] Dr. KayCatiehussain Jennings documented in this encounterWestern Reserve Hospital10-17-2024 Instructions* Patient Instructions* Olga Thompson MA - [...] be used in shoes. documented in this encounterVeterans Health Administration10-17-2024 NoteHNO ID: [id number] Author: ARLET DELGADO DPM Service: ? Author [...] which included preparing to see the patient, bcqx-tz-truc patient care, completing clinical documentation, obtaining and/or reviewing separately obtained history, performing a medically appropriate examination, counseling and educating the patient/family/caregiver, ordering medications, tests and care coordination (not separately reported). Time did not include procedure time. I agree with the Chief Complaint, ROS, and Past Histories independently gathered by the clinical aircraft life support fitter and the remaining scribed note accurately describes my personal service to the patient. This document has been created with the use of voice recognition technology. It may contain inaccuracies, misspellings, inaccurate syntax or inappropriate word context that escaped review. [facility] History of Present illness Narrative* Arlet [...] which included preparing to see the patient, oxgn-ee-comk patient care, completing clinical documentation, obtaining and/or reviewing separately obtainedhistory, performing a medically appropriate examination, counseling and educating the patient/family/caregiver, ordering medications, tests and care coordination (not separately reported). Time did not include procedure time. I agree with the Chief Complaint, ROS, and Past Histories independently gathered by the clinical aircraft life support fitter and the remaining scribed note accurately describes my personal service to the patient. This document has been created with the use of voice recognition technology. It may contain inaccuracies, misspellings, inaccurate syntax or inappropriate word context that escaped review. Arlet Delgado DPM documented in this encounterVeterans Health Administration10-09-2024 History of Present illness Narrative* JONAS Garrido [...] of these rules in order for [facility]. OARRS reviewed. All questions answered. Call the office with any other questions or concerns. documented in this encounterCameron Regional Medical [id number] Miscellaneous Notes* Telephone Encounter - Doris Hernandez - 07/17/2024 1:55 PM EDT Returned patient's call. No answer, left message on machine to call back. documented in this encounterWestern Reserve Hospital10-09-2024 Telephone encounter Note* Telephone Encounter - Doris Hernandez - 07/17/2024 1:55 PM EDT Returned patient's call. No answer, left message on machine to call back. [facility]10-07-2024 History of Present illness Narrative* Mich Verde [...] 11/02/2017 Performed by Karthikeyan Lopez MD at [facility] APPENDECTOMY 2016 APPLICATION GRAFT PAPER PATCH EAR Right 06/04/2024 Performed by Mich Verde MD at [facility] CRANIOTOMY CHIARI DECOMPRESSION / N/A 01/27/2023 Performed by Ajay Barbosa MD at [facility] CYSTOSCOPY RETROGRADE PYELOGRAM Bilateral 11/30/2022 Performed by Jocelyne Hernandez MD at [facility] DILATION AND CURETTAGE OF UTERUS 07/31/2023 EUSTACHIAN TUBE DILATION Bilateral 11/02/2017 Performed by Karthikeyan Lopez MD at [facility] POSTERIOR LAMINECTOMY CERVICAL SINGLE LEVEL / C1 N/A 01/27/2023 Performed by Ajay Barbosa MD at [facility] REMOVAL TUBE EAR Right 06/04/2024 Performed by Mich Verde MD at [facility] TONSILLECTOMY TYMPANOSTOMY TUBE PLACEMENT TYMPANOTOMY WITH PERMANENET VENT TUBE INSERTION. TYMPANOTOMY WITH NONPERMANENT TUBE IN LEFT EAR Bilateral 11/02/2017 Performed by Karthikeyan Lopez MD at [facility] SOCIAL HISTORY Social History Tobacco Use Smoking [...] time of final signature. documented in this [facility]10-07-2024 Instructions* Patient Instructions* Gm Garcia - 07/15/2024 3:30 PM EDT - Microscopic examination was completed in office today. The ears appear generally healthy. - Continue watchful monitoring. - Follow-up with audiogram . documented in this encounterWestern Reserve Hospital09-25-2024 History of Present illness Narrative* Sadia Rai PA-C - 07/03/2024 10:45 AM EDT Images from the original note were not included. [facility] [facility] [place] [phone] SUBJECTIVE: Patient ID (2000): Charis Allen is [...] history of GERD. She works in a [employer]. 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 HISTORY: Past Medical History: Diagnosis Date Cerebellar tonsillar ectopia (CMS-HCC) Concussion Multiple Dizziness Dysfunction of both eustachian tubes Head injury 2010 With LOC Headache History of chicken pox 2011 HL (hearing loss) Past Surgical History: Procedure Laterality Date ADENOIDECTOMY Bilateral 11/02/2017 Performed by Karthikeyan Lopez MD at [facility] APPENDECTOMY 2016 APPLICATION GRAFT PAPER PATCH EAR Right 06/04/2024 Performed by Mich Verde MD at [facility] CRANIOTOMY CHIARI DECOMPRESSION / N/A 01/27/2023 Performed by Ajay Barbosa MD at [facility] CYSTOSCOPY RETROGRADE PYELOGRAM Bilateral 11/30/2022 Performed by Jocelyne Hernandez MD at [facility] SURGERY DILATION AND CURETTAGE OF UTERUS 07/31/2023 EUSTACHIAN TUBE DILATION Bilateral 11/02/2017 Performed by Karthikeyan Lopez MD at [facility] POSTERIOR LAMINECTOMY CERVICAL SINGLE LEVEL / C1 N/A 01/27/2023 Performed by Ajay Barbosa MD at [facility] REMOVAL TUBE EAR Right 06/04/2024 Performed by Mich Verde MD at [facility] TONSILLECTOMY TYMPANOSTOMY TUBE PLACEMENT TYMPANOTOMY WITH PERMANENET VENT TUBE INSERTION. 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 of Health Financial Resource Strain: Patient Declined (11/12/2023) Received from [facility] Overall Financial Resource Strain (CARDIA) Difficulty of Paying Living Expenses: Patient declined Food Insecurity: No Food Insecurity (05/21/2024) Hunger Screening Food Insecurity - Worry: Never True Food Insecurity - Inability: Never True Transportation Needs: Patient Declined (11/12/2023) Received from [facility] PRAPARE - Transportation Lack of Transportation (Medical): Patient declined Lack of Transportation (Non-Medical): Patient declined Physical Activity: Patient Declined (11/12/2023) Received from [facility] Exercise Vital Sign Days of Exercise per Week: Patient declined Minutes of Exercise per Session: Patient declined Stress: Not on file Social Connections: Unknown (11/12/2023) Received from [facility] Social Connection and Isolation Panel [NHANES] Frequency of Communication with Friends and Family: Patient declined Frequency of Social Gatherings with Friends and Family: Patient declined Attends Gnosticism Services: Not on file Active Member of Clubs or Organizations: Patient declined Attends Club or Organization Meetings: Patient declined Marital Status: Patient declined Interpersonal Safety: Patient Declined (11/12/2023) Received from [facility] Humiliation, Afraid, Rape, and Kick questionnaire [...] x1 year, odynophagia Post-operative Diagnosis: same Clinician: Sadia Rai PA-C Anesthesia: Oxymetazoline and 4% Lidocaine [...] of tongue with mild asymmetry and right qwjh-vj-tjdryt lesion, possible papilloma versus other, erythema of [...] agrees to this plan. Provider Statement: I SADIA RAI PA-C personally [...] this chart were generated using voice recognition [employer] dictation software. Although every effort was made to ensure the accuracy of this automated dividing machine operator helper, some errors in dividing machine operator helper may have occurred. Sadia Rai PA-C 07/03/24 1707 Sadia Rai PA-C 07/03/24 1719 documented in this encounterVermont Psychiatric Care HospitalEnerG209-25-2024 Instructions* Patient Instructions* Sadia Rai PA-C - [...] the throat directly. Should I see a deputy grand jury (stomach specialist)? (GI) At some point, you may be referred to a deputy grand jury, either for help with diagnosis or to [...] Breads Commercial whole grain or enriched bread, Serbian bread, hamburger buns, hard or plain rolls,saltines, vanessa crackers, jose toast, Kenyan muffins and bagels. Homemade biscuits, muffins, waffles, [...] [facility]. documented in this encounterWestern Reserve Hospital09-25-2024 Miscellaneous Notes* Result Encounter Note - Gualberto Vann MD - 07/03/2024 5:57 AM EDT IP documented in this encounterCameron Regional Medical [id number] Progress note* Result Encounter Note - Gualberto Vann MD - 07/03/2024 5:57 AM EDT IP [facility] Work Phone: 1(477) 677-798309-09-2024 Miscellaneous Notes* Telephone Encounter - Gm Gomez LPN - 06/17/2024 9:27 AM EDT Pt lm for refill of concerta DDM Mansura documented in this encounterCameron Regional Medical CenterDtanmyggre88-43-9460 Telephone encounter Note* Telephone Encounter - Gm Gomez LPN - 06/17/2024 9:27 AM EDT Pt lm for refill of concerta DDM Chandu [facility] CenterRzucynepsw88-97-5162 History and physical note* JONAS Conte - [...] 11/02/2017 Performed by Karthikeyan Lopez MD at [facility] APPENDECTOMY 2016 CRANIOTOMY CHIARI DECOMPRESSION / N/A 01/27/2023 Performed by Ajay Barbosa MD at [facility] CYSTOSCOPY RETROGRADE PYELOGRAM Bilateral 11/30/2022 Performed by Jocelyne Hernandez MD at [facility] DILATION AND CURETTAGE OF UTERUS 07/31/2023 EUSTACHIAN TUBE DILATION Bilateral 11/02/2017 Performed by Karthikeyan Lopez MD at [facility] POSTERIOR LAMINECTOMY CERVICAL SINGLE LEVEL / C1 N/A 01/27/2023 Performed by Ajay Barbosa MD at [facility] TONSILLECTOMY TYMPANOSTOMY TUBE PLACEMENT TYMPANOTOMY WITH PERMANENET VENT TUBE INSERTION. 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 of Health Financial Resource Strain: Patient Declined (11/12/2023) Received from [facility] Overall Financial Resource Strain (CARDIA) Difficulty of Paying Living Expenses: Patient declined Food Insecurity: No Food Insecurity (05/21/2024) Hunger Screening Food Insecurity - Worry: Never True Food Insecurity - Inability: Never True Transportation Needs: Patient Declined (11/12/2023) Received from [facility] PRAPARE - Transportation Lack of Transportation (Medical): Patient declined Lack of Transportation (Non-Medical): Patient declined Physical Activity: Patient Declined (11/12/2023) Received from [facility] Exercise Vital Sign Days of Exercise per Week: Patient declined Minutes of Exercise per Session: Patient declined Stress: Not on file Social Connections: Unknown (11/12/2023) Received from [facility] Social Connection and Isolation Panel [NHANES] Frequency of Communication with Friends and Family: Patient declined Frequency of Social Gatherings with Friends and Family: Patient declined Attends Gnosticism Services: Not on file Active Member of Clubs or Organizations: Patient declined Attends Club or Organization Meetings: Patient declined Marital Status: Patient declined Interpersonal Safety: Patient Declined (11/12/2023) Received from [facility] Humiliation, Afraid, Rape, and Kick questionnaire [...] the most recent lab values available in [facility] [place] atthe time of the office visit, and [...] [place] on 06/04/2024. JONAS Conte 05/21/24 1354 [facility]08-13-2024 History and physical note* JONAS Conte - [...] 11/02/2017 Performed by Karthikeyan Lopez MD at [facility] APPENDECTOMY 2016 CRANIOTOMY CHIARI DECOMPRESSION / N/A 01/27/2023 Performed by Ajay Barbosa MD at [facility] CYSTOSCOPY RETROGRADE PYELOGRAM Bilateral 11/30/2022 Performed by Jocelyne Hernandez MD at [facility] SURGERY DILATION AND CURETTAGE OF UTERUS 07/31/2023 EUSTACHIAN TUBE DILATION Bilateral 11/02/2017 Performed by Karthikeyan Lopez MD at [facility] POSTERIOR LAMINECTOMY CERVICAL SINGLE LEVEL / C1 N/A 01/27/2023 Performed by Ajay Barbosa MD at [facility] TONSILLECTOMY TYMPANOSTOMY TUBE PLACEMENT TYMPANOTOMY WITH PERMANENET VENT TUBE INSERTION. 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 of Health Financial Resource Strain: Patient Declined (11/12/2023) Received from [facility] Overall Financial Resource Strain (CARDIA) Difficulty of Paying Living Expenses: Patient declined Food Insecurity: No Food Insecurity (05/21/2024) Hunger Screening Food Insecurity - Worry: Never True Food Insecurity - Inability: Never True Transportation Needs: Patient Declined (11/12/2023) Received from [facility] PRAPARE - Transportation Lack of Transportation (Medical): Patient declined Lack of Transportation (Non-Medical): Patient declined Physical Activity: Patient Declined (11/12/2023) Received from [facility] Exercise Vital Sign Days of Exercise per Week: Patient declined Minutes of Exercise per Session: Patient declined Stress: Not on file Social Connections: Unknown (11/12/2023) Received from [facility] Social Connection and Isolation Panel [NHANES] Frequency of Communication with Friends and Family: Patient declined Frequency of Social Gatherings with Friends and Family: Patient declined Attends Gnosticism Services: Not on file Active Member of Clubs or Organizations: Patient declined Attends Club or Organization Meetings: Patient declined Marital Status: Patient declined Interpersonal Safety: Patient Declined (11/12/2023) [facility] Humiliation, Afraid, Rape, and Kick questionnaire [...] the most recent lab values available in [facility] atthe time of the office visit, and [...] JONAS Conte 05/21/24 1354 documented in this encounterOhioHealth Pickerington Methodist HospitalEpicForce08-13-2024 Instructions* Patient Instructions* iD Briscoe RN - 05/21/2024 1:15 PM EDT Your surgery/procedure is scheduled at [facility] on June 04, 2024 at 9:00 am Arrival Time 7:00 am [facility] Address: [address] [place] [address]. [place], [place] [address] Park in [address] Parking lot located on [facility]. Report to the Entrance B. Check in at the information desk the surgery. The waiting room located on the second floor. If you have any questions prior to surgery, please call Pre-Admission Clinic at [phone] between 7:30 am and 4:30 pm Monday through Monday. If you have questions the morning of surgery, please call the Pre-op Department at [phone]. Notify your SURGEON if you develop any [...] piercings ,hair extensions that contain metal, nail gibraltarian, make-up, and contact lens. You may brush [...] RIGHTS AND RESPONSIBILITIES As a patient at [facility], you have the right to: Receive medical care and be informed of who is taking care of you Be treated with dignity and respect Have a family member/sales representative girls' apparel of choice and your physician notified of your admission Receive information and actively participate in decisions about your care and treatment Refuse care, treatment and services Decide who may provide your support and speak for you Access lutheran and spiritual services Participate in ethical issues [...] charges and payment methods Patient/patient sales representative girls' apparel responsibilities are to: Provide information about health status to facilitate care, treatment and services Follow the treatment, plan, keep appointments and speak up when you do not understand the plan Respect the rights of other patients and healthcare personnel Follow organizational rules and regulations that support quality care and a safe environment Fulfill financial obligations as promptly as possible documented in this encounterWestern Reserve Hospital06-10-2024 History of Present illness Narrative* Mich Verde [...] [place] [address] Lopez. Juan Corts experience irritation after routine cleanings. Past History: [...] 11/02/2017 Performed by Karthikeyan Lopez MD at [facility] APPENDECTOMY age 15 CRANIOTOMY CHIARI DECOMPRESSION / N/A 01/27/2023 Performed by Ajay Barbosa MD at [facility] CYSTOSCOPY RETROGRADE PYELOGRAM Bilateral 11/30/2022 Performed by Jocelyne Hernandez MD at [facility] DILATION AND CURETTAGE OF UTERUS 07/31/2023 EUSTACHIAN TUBE DILATION Bilateral 11/02/2017 Performed by Karthikeyan Lopez MD at [facility] POSTERIOR LAMINECTOMY CERVICAL SINGLE LEVEL / C1 N/A 01/27/2023 Performed by Ajay Barbosa MD at [facility] TONSILLECTOMY TYMPANOSTOMY TUBE PLACEMENT TYMPANOTOMY WITH PERMANENET VENT TUBE INSERTION. TYMPANOTOMY WITH NONPERMANENT TUBE IN LEFT EAR Bilateral 11/02/2017 Performed by Karthikeyan Lopez MD at [facility] SOCIAL HISTORY Social History Tobacco Use Smoking [...] Jennifer Martin MA 03/18/244 documented in this encounterOhioHealth Pickerington Methodist HospitalLifefactory [id number] Instructions* Patient Instructions* Linette Gurrola - 03/18/2024 2:30 PM EDT - Patient prefers to have right tube surgically removed. We discussed the chances of perforation remaining from PE tube, which may resolve with paper patch placement. Indications, risks, benefits, and possible complications were discussed. - Continue to initiate ear drops; Ciprodex sent to pharmacy. - Follow-up post op. documented in this encounterOhioHealth Pickerington Methodist HospitalLifefactory [facility]-[id number] History of Present illness Narrative* Sadia Rai PA-C - 03/06/2024 4:15 PM EDT [facility] [address] [place] [address] SUBJECTIVE: Patient ID (2000): Charis Allen is [...] 11/02/2017 Performed by Karthikeyan Lopez MD at [facility] APPENDECTOMY age 15 CRANIOTOMY CHIARI DECOMPRESSION / N/A 01/27/2023 Performed by Ajay Barbosa MD at [facility] CYSTOSCOPY RETROGRADE PYELOGRAM Bilateral 11/30/2022 Performed by Jocelyne Hernandez MD at [facility] SURGERY DILATION AND CURETTAGE OF UTERUS 07/31/2023 EUSTACHIAN TUBE DILATION Bilateral 11/02/2017 Performed by Karthikeyan Lopez MD at [facility] POSTERIOR LAMINECTOMY CERVICAL SINGLE LEVEL / C1 N/A 01/27/2023 Performed by Ajay Barbosa MD at [facility] TONSILLECTOMY TYMPANOSTOMY TUBE PLACEMENT TYMPANOTOMY WITH PERMANENET VENT TUBE INSERTION. 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 of Health Financial Resource Strain: Patient Declined (11/12/2023) Received from [facility] Overall Financial Resource Strain (CARDIA) Difficulty of Paying Living Expenses: Patient declined Food Insecurity: Patient Declined (11/12/2023) Received from [facility] Hunger Vital Sign Worried About Running Out of Food in the Last Year: Patient declined Ran Out of Food in the Last Year: Patient declined Transportation Needs: Patient Declined (11/12/2023) Received from [facility] PRAPARE - Transportation Lack of Transportation (Medical): Patient declined Lack of Transportation (Non-Medical): Patient declined Physical Activity: Patient Declined (11/12/2023) Received from [facility] Exercise Vital Sign Days of Exercise per Week: Patient declined Minutes of Exercise per Session: Patient declined Stress: Not on file Social Connections: Unknown (11/12/2023) Received from [facility] Social Connection and Isolation Panel [NHANES] Frequency of Communication with Friends and Family: Patient declined Frequency of Social Gatherings with Friends and Family: Patient declined Attends Gnosticism Services: Not on file Active Member of Clubs or Organizations: Patient declined Attends Club or Organization Meetings: Patient declined Marital Status: Patient declined Interpersonal Safety: Patient Declined (11/12/2023) [facility] Humiliation, Afraid, Rape, and Kick questionnaire [...] this chart were generated using voice recognition [employer] dictation software. Although every effort was made to ensure the accuracy of this automated dividing machine operator helper, some errors in dividing machine operator helper may have occurred. Sadia Rai PA-C 03/06/24 1727 documented in this encounterWestern Reserve Hospital04-29-2024 Miscellaneous Notes* Telephone Encounter - Jessica Best - 02/05/2024 8:24 AM EDT Called and left voice mail to let patient know she needs to reschedule her appointment for 02/05/24 as provider is out ill documented in this encounterWestern Reserve Hospital04-29-2024 Telephone encounter Note* Telephone Encounter - Jessica Best - 02/05/2024 8:24 AM EDT Called and left voice mail to let patient know she needs to reschedule her appointment for 02/05/24 as provider is out ill [facility]03-19-2024 Instructions* Patient Instructions* Olga Thompson MA - [...] to ensure normal healing. documented in this encounterVeterans Health Administration03-19-2024 NoteHNO ID: [id number] Author: ARLET DELGADO DPM Service: ? Author [...] the overlying eponychium and underlying nailbed. An Kenyan anvil was used to cut the offending [...] PATIENT VERIFIED(optional for EMERG (more content not included)...[facility]03-19-2024 History of Present illness Narrative* Calderon Arlet Cruz, DPKatarzyna - 12/26/2023 5:31 PM EDT Service Date: [...] the overlying eponychium and underlying nailbed. An Kenyan anvil was used to cut the offending [...] which included preparing to see the patient, [id number] patient care, completing clinical documentation, obtaining and/or reviewing separately obtainedhistory, performing a medically appropriate examination, counseling and educating the patient/family/caregiver, ordering medications, tests, or procedures and care coordination (not separately reported). I agree with the Chief Complaint, ROS, and Past Histories independently gathered by the clinical aircraft life support fitter and the remaining scribed note accurately describes my personal service to the patient. This document has been created with the use of voice recognition technology. It may contain inaccuracies, misspellings, inaccurate syntax or inappropriate word context that escaped review. Arlet Delgado DPM documented in this encounterVeterans Health Administration03-12-2024 History of Present illness Narrative* Sadia Rai PA-C - 12/19/2023 12:45 PM EDT [facility] [address] [place] [address] [facility] [address] SUBJECTIVE: Patient ID (2000): Charis Allen is [...] October of 2017, by Dr. Lopez in [place], [place]. The left tube has since extruded, [...] 11/02/2017 Performed by Karthikeyan Lopez MD at [facility] APPENDECTOMY age 15 CRANIOTOMY CHIARI DECOMPRESSION / N/A 01/27/2023 Performed by Ajay Barbosa MD at [facility] CYSTOSCOPY RETROGRADE PYELOGRAM Bilateral 11/30/2022 Performed by Jocelyne Hernandez MD at [facility] SURGERY DILATION AND CURETTAGE OF UTERUS 07/31/2023 EUSTACHIAN TUBE DILATION Bilateral 11/02/2017 Performed by Karthikeyan Lopez MD at [facility] POSTERIOR LAMINECTOMY CERVICAL SINGLE LEVEL / C1 N/A 01/27/2023 Performed by Ajay Barbosa MD at [facility] TONSILLECTOMY TYMPANOSTOMY TUBE PLACEMENT TYMPANOTOMY WITH PERMANENET VENT TUBE INSERTION. 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 [...] this chart were generated using voice recognition [employer] dictation software. Although every effort was made to ensure the accuracy of this automated dividing machine operator helper, some errors in dividing machine operator helper may have occurred. Sadia Rai PA-C 12/19/23 1335 documented in this encounterOhioHealth Pickerington Methodist HospitalLifefactory [facility]-[id number] Instructions* Patient Instructions* Sadia Rai PA-C - [...] with your ENT provider. documented in this encounterOhioHealth Pickerington Methodist HospitalLifefactory [facility]-[id number] Instructions* Patient Instructions* Arlet Delgado DPM - [...] be used in shoes. documented in this encounterVeterans Health Administration02-13-2024 NoteHNO ID: [id number] Author: ARLET DELGADO DPM Service: ? Author Type: Physician Type: Progress Notes Filed: 11/21/2023 15:03 Note Text: Service Date: November 21, 2023 PCP: No primary care provider on file. [facility] The history is provided by the patient. [...] order to perform a complete physical exam, [address] was performed. This incidental service is integral [...] which included preparing to see the patient, [id number] patient care, completing clinical documentation, obtaining and/or reviewing separately obtained history, performing a medically appropriate examination, counseling and educating the patient/family/caregiver, ordering medications, tests, or procedures and care coordination (not separately reported). I agree with the Chief Complaint, ROS, and Past Histories independently gathered by the clinical aircraft life support fitter and the remaining scribed note accurately describes my personal service to (more content not included)...[facility]02-13-2024 History of Present illness Narrative* Arlet Delgado DPM - 11/21/2023 2:40 PM EST Service Date: November 21, 2023 PCP: No primary care provider on file. Last Podiatry Visit: [facility] The history is provided by the patient. [...] Inorder to perform a complete physical exam, [address] was performed. This incidental service is integralto [...] which included preparing to see the patient, [id number] patient care, completing clinical documentation, obtaining and/or reviewing separately obtainedhistory, performing a medically appropriate examination, counseling and educating the patient/family/caregiver, ordering medications, tests, or procedures and care coordination (not separately reported). I agree with the Chief Complaint, ROS, and Past Histories independently gathered by the clinical aircraft life support fitter and the remaining scribed note accurately describes my personal service to the patient. This document has been created with the use of voice recognition technology. It may contain inaccuracies, misspellings, inaccurate syntax or inappropriate word context that escaped review. Arlet Delgado DPM documented in this encounterVeterans Health Administration01-31-2024 Evaluation note* Encounter Date Diagnosis Assessment Notes Treatment Notes Treatment Clinical Notes Oct, Dietary surveillance and drug abuse counselor ing (ICD-10 - Z71.3) Discussed in [...] -Experienced tachycardia with phentermine. -Patient lives in [place] and has difficulty reaching [place] -Cardiometabolic labs today, nonfasting -Patient is not sexually active-Follow up in clinic in 6 to 8 weeksThis note was created with voicerecognition software. Please excuse errors in dividing machine operator helper. Oct,Exercise counseling (ICD-10 - Z71.89)[facility] at [...] with the patient, and documenting clinical information. [employer] Other [id number] Miscellaneous Notes* Telephone Encounter - Yesenia Hernández LPN - 08/21/2023 3:14 PM EST Patient contacted and concerns addressed. Patient voiced understanding of denial and reasons listed. She will call back if she has any other questions or concerns * Telephone Encounter - Lauren Larson - 08/16/2023 8:59 AM EST Charis Ledesma Amberlizzy is calling Fortino Alcaraz MD today with concern regarding a cancelled procedure back in July 2023. Patient is looking to reschedule. Please call patient to advise. Patient has been identified by name and birthdate. Duration of symptoms: N/A Person calling: self Call patient at: at home [phone] (home) [phone] (cell) Was an appointment scheduled: No Closing statement: Results or non-symptom based questions: Thank you for calling [facility], your call will be returned within the next business day. Thank you, Lauren Larson documented in this encounterVeterans Health Administration11-08-2023 NoteHNO ID: [id number] Author: Anish Levin MD Service: ? Author [...] the patient or their legal sales representative girls' apparel has been informed of the risks and [...] exam performed due to technical problems with [employer] (on [facility] end). ASSESSMENT/PLAN: 1. Acne vulgaris - ICD9: 706.1, ICD10: L70.0 Begin the following medications: Sulfacetamide Sodium-Sulfur 10-5 % (w/w) lotn Apply to all acne-prone areas twice daily adapalene (DIFFERIN) 0.1 % gel Apply to all acne-prone areas at bedtime. During this patient visit I have spent approximately 15 minutes discussing treatment options and medications and coordinating care. Anish Levin [facility]11-08-2023 History of Present illness Narrative* Anish Levin [...] the patient or their legal sales representative girls' apparel has been informed of the risks and [...] exam performed due to technical problems with [employer] (on [facility] end). ASSESSMENT/PLAN: 1. Acne vulgaris - ICD9: 706.1, ICD10: L70.0 Begin the following medications: Sulfacetamide Sodium-Sulfur 10-5 % (w/w) lotn Apply to all acne-prone areas twice daily adapalene (DIFFERIN) 0.1 % gel Apply to all acne-prone areas at bedtime. During this patient visit I have spent approximately 15 minutes discussing treatment options and medications and coordinating care. nAish Levin MD documented in this encounterVeterans Health Administration10-12-2023 Miscellaneous Notes* Telephone Encounter - Otilia Sanders [...] her acne. * Telephone Encounter - Sheila White - 07/18/2023 4:32 PM EDT Charis Allen is calling Anish Levin MD today with concern regarding Medication Questions. Pt requesting to speak to clinical staff as her acne is not improving and she doesn't know if it is because of the combo of products she is using. Pt states she is currently using: -Neutrogena [place] Boost Water Gel -PanOxyl Acne Foaming Wash Benzoyl 10% -Bareminerals Exfoliating Toner -tretinoin 0.1% cream Pt states she had to stop using the sponge Dr Levin prescribed as it made her face too red and dry. Patient has been identified by name and birthdate. Duration of symptoms: N/A Person calling: self Call patient at: at home [phone] (home) [phone] (cell) Was an appointment scheduled: No Closing statement: Results or non-symptom based questions: Thank you for calling [facility], your call will be returned within the next business day. Sheila White documented in this encounterVeterans Health Administration09-22-2023 Miscellaneous Notes* Telephone Encounter - Reina Ferrari LPN - 06/30/2023 1:34 PM EDT Called and spoke to patient to notify her, she has refills of the dapsone. She stated the pharmacy told her the medication is not approved by her insurance. She will need a different medication that is covered by her new insurance. She now has [place] BC[place] Medicaid of [place]. * Telephone Encounter - Dena Dowd - 06/26/2023 12:32 PM EDT Patient calling in with questions regarding this. Please advise. Patient's phone number is [phone]. documented in this encounterVeterans Health Administration09-01-2023 Evaluation note* Encounter Date Diagnosis Assessment Notes [...] headache, unspecified headache type (ICD-10 - R51.9) [employer] Other 08-29-2023 Miscellaneous Notes* Telephone Encounter - [...] e-mail at this time. documented in this encounterVeterans Health Administration08-24-2023 History of Present illness Narrative* Fortino Alcaraz [...] was evaluated at the breast center at [facility] in October for the breast [...] Sodium Rash Seasonal Allergies See breast center evira 10/13/22 Obese, well-developed well-nourished no distress. Patient [...] Fortino Alcaraz MD a documented in this encounterVeterans Health Administration07-03-2023 Instructions* Patient Instructions* Kerry Jain RD - 04/10/2023 10:45 AM EDT Nutrition Intervention 04/04/2023: Aim for 1200 calories consistently daily (see diet plan/example) Keep diary - try using myfitnesspal Exercise at least 150 minutes/week documented in this encounterVeterans Health Administration06-27-2023 History of Present illness Narrative* Kerry Jain [...] diet plan/example) Keep diary - try using myDryncpal Exercise at least 150 minutes/week Nutrition Monitoring [...] 3:31 PM PAGER: N/A documented in this encounterVeterans Health Administration04-01-2023 History general Narrative - Reported* Type Description Date Medical History acne Surgical Historytonsillectomy and adenoidectomySurgical Historyappendectomy Surgical HistoryPE tubesSurgical HistoryCEREBRAL TONSIL ECTOPIA01/2023 Hospitalization Historysee above [employer] Other 03-27-2023 Miscellaneous Notes* Telephone Encounter - [...] 10:40 AM EDT Charis Allen is calling Anish Levin MD today to ask about what face lotions she can use with the pinoxy face wash and if there is a vitamin she can take for her acne. Patient has been identified by name and birthdate. Duration of symptoms: N/A Person calling: self Call patient at: on cell [phone] (home) [phone] (cell) Was an appointment scheduled: No Closing statement: Results or non-symptom based questions: Thank you for calling [facility], your call will be returned within the next business day. 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 Patient denies any new or worsening symptoms of which a provider is not aware: Yes. She denies symptoms today. Conferenced her to appt center and called dropped. Reached patient and back and connectedher to [facility] NOC closing was given GO TO THE EMERGENCY ROOM OR CALL 911 IF: * You develop any new symptoms * Your condition worsens * You are concerned or anxious about your condition for any other reason. If you have any questions, you can call Nurse on site property manager back. documented in this encounterV[facility] Administration02-08-2023 Miscellaneous Notes* Telephone Encounter - Vandana Larson [...] her MRI result. Number to return call [phone] Laura Amaro documented in this encounterVeterans Health Administration02-08-2023 History of Present illness Narrative* Macie Miramontes [...] 2022 TIME: 8:46 AM documented in this encounterVeterans Health Administration02-06-2023 History of Present illness Narrative* Sreekanth Sood [...] - [place] for macromastia (whee she clvmlh2gi neck pain) Wasn't able to tolerate topamax. [...] mins direct pt contact) documented in this encounterV[facility] Administration01-25-2023 Miscellaneous Notes* Telephone Encounter - Aminata Montgomery RN - 11/02/2022 11:28 PM EST Patient calling with request for physician referral: Patient referred to Urology for kidney stones Department. . Patient denies any new or worsening symptoms of which a provider is not aware: Yes. Conf to [facility] for scheduling. documented in this encounterVeterans Health Administration01-05-2023 NoteHNO ID: [id number] Author: Dianna Villa PA-C Service: ? Author Type: Physician Gospel Singer Type: Progress Notes Filed: 10/13/2022 4:21 PM Note Text: MEDICAL BREAST PATIENT NAME: Charis Allen October [birth year], 2020 REFERRAL: She is self-referred for an opinion regarding bilateral breast enlargement/pain. 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 [...] Rash Seasonal Allergies RE (more content not included)...[id number] History of Present illness Narrative* Anish Levin [...] Past Histories independently gathered by the clinical aircraft life support fitter and the remaining scribed note accurately describes my personal service to the patient. Anish Levin MD Medical Decision Making: Problems: Moderate: 1+ chronic illnesses with change Data: Unique source(s) for external note(s) reviewed: 1 Risk: Moderate: Drug management Medical Decision Making Level: 4 - Moderate documented in this encounterVeterans Health Administration11-18-2022 Miscellaneous Notes* Telephone Encounter - Christy Yuen LPN - 08/26/2022 10:34 AM EST Below message sent by Dr. Levin to patient. Sent a [employer] message to patient. Advised to stop doxycycline, [...] Is there something else she can take? [phone] (home) documented in this encounterVeterans Health Administration11-09-2022 History of Present illness Narrative* Anish Levin MD - 08/17/2022 7:30 AM EST VIRTUAL VISIT PROGRESS NOTE This is a virtual visit using MWIt video visit. It required patient-provider interaction for [...] Past Histories independently gathered by the clinical aircraft life support fitter and the remaining scribed note accurately describes my personal service to the patient. Anish Levin MD Medical Decision Making: Problems: Low: Stable chronic illness Data: Unique source(s) for external note(s) reviewed: 1 Risk: Moderate: Drug management Medical Decision Making Level: 3 - Low documented in this encounterVeterans Health Administration11-03-2022 Miscellaneous Notes* Telephone Encounter - Otilia Sanders - 08/11/2022 2:38 PM EDT Virtual appt scheduled * Telephone Encounter - Sheyla Keenan RN - 08/11/2022 2:20 PM EDT Please assist with virtual visit * Telephone Encounter - Otilia Gomez LPN - 08/10/2022 10:21 AM EDT Please advise and assist. documented in this encounterVeterans Health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 unspecified chronicity pattern, unspecified headache type Vaginitis and vulvovaginitis Cervicitis and endocervicitis Spotting Other specified noninflammatory disorder of vagina [facility]* Diagnosis Major depressive disorder, single episode, mild Acne vulgaris Other acne Attention deficit hyperactivity disorder (ADHD), combined type Acute vaginitis- Primary Unspecified vaginitis and vulvovaginitis Acute vulvitis Unspecified vaginitis and vulvovaginitis documented in this encounter [facility]* Diagnosis Major depressive disorder, single episode, mild Acne vulgaris Other acne Attention deficit hyperactivity disorder (ADHD), combined type Vaginitis and vulvovaginitis Cervicitis and endocervicitis First trimester ([facility]) state, incidental 11 weeks gestation of ([facility]) Screening for malignant neoplasm of cervix Screening for malignant neoplasm of the cervix Encounter for gynecological examination without abnormal finding Encounter for screening for cervical cancer documented in this encounter [facility] general Narrative - Reported* Type Description Date Medical History acne Surgical Historytonsillectomy and adenoidectomySurgical Historyappendectomy Surgical HistoryPE tubesHospitalization Historysee above [facility] Other History general Narrative - Reported* Type Description Date Medical History acne Medical HistoryCEREBRAL TONSIL ECTOPIAMedical HistoryMiscarriageMedical History Molar pregnancySurgical Historytonsillectomy and adenoidectomySurgical History appendectomySurgical HistoryPE tubesSurgical HistoryCEREBRAL TONSIL ECTOPIA 01/2023Surgical HistoryD&C x 2Hospitalization Historysee above [facility] Other Hospital Discharge instructions Additional Instructions DISCHARGE [...] in an emergency, call the office at [[phone]]. TODAY -Take it easy the rest of [...] FOLLOW UP -Please call the office at [phone] to arrange an appointment to see me in 2 weeks.[facility] Work Phone: Hospital Discharge instructions Additional [...] though, we will have to figure this out.[facility] Work Phone: Hospital Discharge instructions* Attachments The following attachments cannot be sent through Care Everywhere. * Gastroenteritis ([place]) [facility] Attachments The following attachments cannot be sent through Care Everywhere. * Miscarriage: Threatened ([place]) * : [facility]aginal Bleeding ([place]) [facility] Attachments The following attachments cannot be sent through Care Everywhere. * Vertigo ([place]) * Vertigo: [place]awthorne Exercises ([place]) [facility] Additional Instructions You should follow-up with Dr. Snell's office call tomorrow for appointment let them know that you were seen in the emergency department and your complaints You should have a repeat quantitative hormone level drawn on 02/20/2025 a prescription was provided Tylenol only for pain Pelvic rest. Nothing by pelvic cavity until cleared by [employer] Push fluids Avoid heavy lifting Please return here if you develop any fevers, chills, increased pain, vaginal bleeding, dizziness, chest pain, shortness of breath or any other concernsSelect [facility] Work Phone: InstructionsNot on filedocumented in [...] for referral (narrative)No reason for referral information availableSelect Medical [facility] Work Phone: Summary Purpose Family History Relationship [...] 3:09 PM12/14/2021 5:43 PMCode StatusDate ActivatedDate InactivatedCommentsFull Code01/27/2023 2:20 PM01/30/2023 2:01 PMCode StatusDate ActivatedDate InactivatedCommentsFull [...] neck soft tissue with contrast Sadia Rai, [address] [place] [address] Referral IDStatusReasonStart DateExpiration DateVisits RequestedVisits [id number]/[id number] / Procedures Referred By ContactReferred To Contact Diagnoses Postop check Procedures Comprehensive hearing test Mich Verde MD [address] [facility] [address] [place] [id number] Referral IDStatusReasonStart DateExpiration DateVisits RequestedVisits [id number] Enyldf62/[id number] / ProceduresReferred By ContactReferred To ContactMR IMAGING Diagnoses 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 Procedures MRV BRAIN WO/W IVCON MRA; HEAD W & WO CONTRAST Samples, MD Sreekanth [address] [place] [address] [facility] [place] [address] Referral IDStatusReasonStart DateExpiration DateVisits RequestedVisits [id number] Auto-Generated Referral /[id number] / ProceduresReferred By ContactReferred To ContactMR IMAGING Diagnoses Thunderclap headache Procedures MRI BRAIN WO/W IVCON MRI BRAIN BRAIN STEM W/O W/CONTRAST MATERIAL Samples, MD Sreekanth [address] [place] [address] [facility] [place] [address] Referral IDStatusReasonSttower DateExpiration DateVisits RequestedVisits [id number] Auto-Generated Referral /[id number] / ProceduresReferred By ContactReferred To ContactMR IMAGING Diagnoses Cerebellar tonsillar ectopia (HCC) Procedures MRI BRAIN WO/W IVCON MRI BRAIN BRAIN STEM W/O W/CONTRAST MATERIAL Samples, MD Sreekanth [address] [place] [address] [facility] [place] [address] Referral IDStatusReasonKingstree DateExpiration DateVisits RequestedVisits [id number] Auto-Generated Referral /[id number] / ProceduresReferred By ContactReferred To ContactPlastic Surgery Diagnoses Macromastia Procedures CONSULT TO PLASTIC SURGERY OFFICE/OUTPATIENT [facility] 60-74 MINUTES Cathy Grayson, [employer]CH [employer]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 [address] [place] [address] Referral IDStatusReasonStart DateExpiration DateVisits RequestedVisits [id number] Review PCP Requested Referral /[id number] / ProceduresReferred By ContactReferred To ContactREHAB AND SPORTS THERAPY INS Diagnoses Exertional headache Cervicalgia Macromastia Procedures CONSULT TO PHYSICAL THERAPY PHYSICAL THERAPY EVALUATION HIGH COMPLEX 45 MINS Sreekanth Sood MD [address] [place] [address] [facility] [address] [place] [address] Referral IDStatusReasonStart DateExpiration DateVisits RequestedVisits [id number] Review Auto-Generated Referral /[id number] / ProceduresReferred By ContactReferred To Contact Diagnoses Other eczema Anish Levin MD [address] [place] [address] [place] [address] Referral IDStatusReasonSttower DateExpiration DateVisits RequestedVisits [id number] Chief Complaint and Reason for Visit Chief [...] section and content) DATE CREATED AUTHOR 04/04/2018 [facility] DATE CREATED AUTHOR AUTHOR'S ORGANIZ ATION 10/14/2022 [facility] DATE CREATED AUTHOR AUTHOR'S ORGANIZ ATION 11/02/2022 [facility] DATE CREATED AUTHOR AUTHOR'S ORGANIZ ATION 12/14/2022 [facility] DATE CREATED AUTHOR AUTHOR'S ORGANIZ ATION 01/04/2023 [facility] DATE CREATED AUTHOR AUTHOR'S ORGANIZ ATION 01/06/2023 [facility] DATE CREATED AUTHOR AUTHOR'S ORGANIZ ATION 07/27/2024 [facility] DATE CREATED AUTHOR AUTHOR'S ORGANIZ ATION 11/06/2024 [facility] DATE CREATED AUTHOR AUTHOR'S ORGANIZ ATION 02/23/2025 [facility] DATE CREATED AUTHOR AUTHOR'S ORGANIZ ATION 03/06/2025 [facility] DATE CREATED AUTHOR AUTHOR'S ORGANIZ ATION 03/09/2025 [facility] DATE CREATED AUTHOR AUTHOR'S ORGANIZ ATION 08/07/2025 [facility] DATE CREATED AUTHOR AUTHOR'S ORGANIZ ATION 08/19/2025 [facility] EPIC Source Comments (unrecognize d section and content) In the event this informatio n is protected by the Federal Confidentiality of Alcohol and Drug Abuse Patient Records regulations: The Federal rules restrict any use of the information to criminally investigate or prosecute any alcohol or drug abuse patient.[facility] AdministrationIn the event this information is protected by the Federal Confidentiality of Alcohol and Drug Abuse Patient Records regulations: The Federal rules restrict any use of the information to criminally investigate or prosecute any alcohol or drug abuse patient.[facility] AdministrationIn the event this information is protected by the Federal Confidentiality of Alcohol and Drug Abuse Patient Records regulations: The Federal rules restrict any use of the information to criminally investigate or prosecute any alcohol or drug abuse patient.[facility] AdministrationIn the event this information is protected by the Federal Confidentiality of Alcohol and Drug Abuse Patient Records regulations: The Federal rules restrict any use of the information to criminally investigate or prosecute any alcohol or drug abuse patient.[facility] AdministrationIn the event this information is protected by the Federal Confidentiality of Alcohol and Drug Abuse Patient Records regulations: The Federal rules restrict any use of the information to criminally investigate or prosecute any alcohol or drug abuse patient.[facility] AdministrationIn the event this information is protected by the Federal Confidentiality of Alcohol and Drug Abuse Patient Records regulations: The Federal rules restrict any use of the information to criminally investigate or prosecute any alcohol or drug abuse patient.[facility] AdministrationIn the event this information is protected by the Federal Confidentiality of Alcohol and Drug Abuse Patient Records regulations: The Federal rules restrict any use of the information to criminally investigate or prosecute any alcohol or drug abuse patient.[facility] AdministrationIn the event this information is protected by the Federal Confidentiality of Alcohol and Drug Abuse Patient Records regulations: The Federal rules restrict any use of the information to criminally investigate or prosecute any alcohol or drug abuse patient.[facility] AdministrationIn the event this information is protected by the Federal Confidentiality of Alcohol and Drug Abuse Patient Records regulations: The Federal rules restrict any use of the information to criminally investigate or prosecute any alcohol or drug abuse patient.[facility] AdministrationIn the event this information is protected by the Federal Confidentiality of Alcohol and Drug Abuse Patient Records regulations: The Federal rules restrict any use of the information to criminally investigate or prosecute any alcohol or drug abuse patient.[facility] AdministrationIn the event this information is protected by the Federal Confidentiality of Alcohol and Drug Abuse Patient Records regulations: The Federal rules restrict any use of the information to criminally investigate or prosecute any alcohol or drug abuse patient.[facility] AdministrationIn the event this information is protected by the Federal Confidentiality of Alcohol and Drug Abuse Patient Records regulations: The Federal rules restrict any use of the information to criminally investigate or prosecute any alcohol or drug abuse patient.[facility] AdministrationIn the event this information is protected by the Federal Confidentiality of Alcohol and Drug Abuse Patient Records regulations: The Federal rules restrict any use of the information to criminally investigate or prosecute any alcohol or drug abuse patient.[facility] AdministrationIn the event this information is protected by the Federal Confidentiality of Alcohol and Drug Abuse Patient Records regulations: The Federal rules restrict any use of the information to criminally investigate or prosecute any alcohol or drug abuse patient.[facility] AdministrationIn the event this information is protected by the Federal Confidentiality of Alcohol and Drug Abuse Patient Records regulations: The Federal rules restrict any use of the information to criminally investigate or prosecute any alcohol or drug abuse patient.[facility] AdministrationIn the event this information is protected by the Federal Confidentiality of Alcohol and Drug Abuse Patient Records regulations: The Federal rules restrict any use of the information to criminally investigate or prosecute any alcohol or drug abuse patient.[facility] AdministrationIn the event this information is protected by the Federal Confidentiality of Alcohol and Drug Abuse Patient Records regulations: The Federal rules restrict any use of the information to criminally investigate or prosecute any alcohol or drug abuse patient.[facility] AdministrationIn the event this information is protected by the Federal Confidentiality of Alcohol and Drug Abuse Patient Records regulations: The Federal rules restrict any use of the information to criminally investigate or prosecute any alcohol or drug abuse patient.[facility] AdministrationIn the event this information is protected by the Federal Confidentiality of Alcohol and Drug Abuse Patient Records regulations: The Federal rules restrict any use of the information to criminally investigate or prosecute any alcohol or drug abuse patient.[facility] AdministrationIn the event this information is protected by the Federal Confidentiality of Alcohol and Drug Abuse Patient Records regulations: The Federal rules restrict any use of the information to criminally investigate or prosecute any alcohol or drug abuse patient.[facility] AdministrationIn the event this information is protected by the Federal Confidentiality of Alcohol and Drug Abuse Patient Records regulations: The Federal rules restrict any use of the information to criminally investigate or prosecute any alcohol or drug abuse patient.[facility] AdministrationIn the event this information is protected by the Federal Confidentiality of Alcohol and Drug Abuse Patient Records regulations: The Federal rules restrict any use of the information to criminally investigate or prosecute any alcohol or drug abuse patient.[facility] AdministrationIn the event this information is protected by the Federal Confidentiality of Alcohol and Drug Abuse Patient Records regulations: The Federal rules restrict any use of the information to criminally investigate or prosecute any alcohol or drug abuse patient.[facility] AdministrationIn the event this information is protected by the Federal Confidentiality of Alcohol and Drug Abuse Patient Records regulations: The Federal rules restrict any use of the information to criminally investigate or prosecute any alcohol or drug abuse patient.[facility] AdministrationIn the event this information is protected by the Federal Confidentiality of Alcohol and Drug Abuse Patient Records regulations: The Federal rules restrict any use of the information to criminally investigate or prosecute any alcohol or drug abuse patient.[facility] AdministrationIn the event this information is protected by the Federal Confidentiality of Alcohol and Drug Abuse Patient Records regulations: The Federal rules restrict any use of the information to criminally investigate or prosecute any alcohol or drug abuse patient.[facility] AdministrationIn the event this information is protected by the Federal Confidentiality of Alcohol and Drug Abuse Patient Records regulations: The Federal rules restrict any use of the information to criminally investigate or prosecute any alcohol or drug abuse patient.[facility] AdministrationIn the event this information is protected by the Federal Confidentiality of Alcohol and Drug Abuse Patient Records regulations: The Federal rules restrict any use of the information to criminally investigate or prosecute any alcohol or drug abuse patient.[facility] AdministrationIn the event this information is protected by the Federal Confidentiality of Alcohol and Drug Abuse Patient Records regulations: The Federal rules restrict any use of the information to criminally investigate or prosecute any alcohol or drug abuse patient.[facility] AdministrationIn the event this information is protected by the Federal Confidentiality of Alcohol and Drug Abuse Patient Records regulations: The Federal rules restrict any use of the information to criminally investigate or prosecute any alcohol or drug abuse patient.[facility] AdministrationIn the event this information is protected by the Federal Confidentiality of Alcohol and Drug Abuse Patient Records regulations: The Federal rules restrict any use of the information to criminally investigate or prosecute any alcohol or drug abuse patient.[facility] AdministrationIn the event this information is protected by the Federal Confidentiality of Alcohol and Drug Abuse Patient Records regulations: The Federal rules restrict any use of the information to criminally investigate or prosecute any alcohol or drug abuse patient.[facility] AdministrationIn the event this information is protected by the Federal Confidentiality of Alcohol and Drug Abuse Patient Records regulations: The Federal rules restrict any use of the information to criminally investigate or prosecute any alcohol or drug abuse patient.[facility] AdministrationIn the event this information is protected by the Federal Confidentiality of Alcohol and Drug Abuse Patient Records regulations: The Federal rules restrict any use of the information to criminally investigate or prosecute any alcohol or drug abuse patient.[facility] AdministrationIn the event this information is protected by the Federal Confidentiality of Alcohol and Drug Abuse Patient Records regulations: The Federal rules restrict any use of the information to criminally investigate or prosecute any alcohol or drug abuse patient.[facility] AdministrationIn the event this information is protected by the Federal Confidentiality of Alcohol and Drug Abuse Patient Records regulations: The Federal rules restrict any use of the information to criminally investigate or prosecute any alcohol or drug abuse patient.[facility] AdministrationIn the event this information is protected by the Federal Confidentiality of Alcohol and Drug Abuse Patient Records regulations: The Federal rules restrict any use of the information to criminally investigate or prosecute any alcohol or drug abuse patient.[facility] AdministrationIn the event this information is protected by the Federal Confidentiality of Alcohol and Drug Abuse Patient Records regulations: The Federal rules restrict any use of the information to criminally investigate or prosecute any alcohol or drug abuse patient.[facility] AdministrationIn the event this information is protected by the Federal Confidentiality of Alcohol and Drug Abuse Patient Records regulations: The Federal rules restrict any use of the information to criminally investigate or prosecute any alcohol or drug abuse patient.[facility] AdministrationIn the event this information is protected by the Federal Confidentiality of Alcohol and Drug Abuse Patient Records regulations: The Federal rules restrict any use of the information to criminally investigate or prosecute any alcohol or drug abuse patient.[facility] Reason for Visit (unrecogniz ed section and content) ReasonCommentsRadiology MRIReasonCommentsEstablished Patientat least Reason Onset DateCommentsRefill Iwitemt08/08/2022ReasonCommentsRefill RequestReason CommentsHeadacheReasonOnset DateCommentsRefill Naynjbs66/07/2022ReasonComments Appointment CancelledReasonCommentsPatient QuestionReasonCommentsPatient Request ReasonCommentsNew PatientEar drainage and fluid, second opnionReasonComments Medication ProblemReasonCommentsAcneReasonCommentsPatient UpdateReasonComments AcneReasonCommentsReferral InformationReasonCommentsEstablished PatientReason CommentsPt would like a neurology 2nd opinion appt.ReasonCommentsPatient EducationAssessmentReasonCommentsConsultBreast reduction consultSpecialty Diagnoses / ProceduresReferred By ContactReferred To ContactPlastic Surgery Diagnoses Mastodynia Macromastia Procedures CONSULT TO PLASTIC SURGERY OFFICE/OUTPATIENT [facility] 60-74 MINUTES Dianna Villa PA-C [address] [place] [address] Ref[facility]Status[facility] DateExpiration DateVisits RequestedVisits [id number] PCP Requested Referral [id number] In ErrorReasonCommentsMedication Question ReasonCommentsNew PatientIngrown toe nails, x few years. Big toes on both feet. Pain scale 10. When she walks it gives a jabbing type of pain. Pt denies using anything for her pain.BwytvjQxaeqdglNzob6ka bpkhtmqGbxi3bw toenail; Pain is 10/10 with ambulation. Pain is relieved when not standing/walking on feet. ProcedureSpecialtyDiagnoses / ProceduresReferred By ContactReferred To ContactMR IMAGING Diagnoses Cerebellar tonsillar ectopia (HCC) Procedures MRI BRAIN WO/W IVCON MRI BRAIN BRAIN STEM W/O W/CONTRAST MATERIAL Samples, MD Sreekanth [address] [place] [address] [facility] [place] [address] Referral IDStatus[facility] DateExpiration DateVisits RequestedVisits [id number] Auto-Generated Referral /[id number] / ProceduresReferred By ContactReferred To ContactMR IMAGING Diagnoses Thunderclap headache Procedures MRI BRAIN WO/W IVCON MRI BRAIN BRAIN STEM W/O W/CONTRAST MATERIAL Samples, MD Sreekanth [address] [place] [id number] [place] [address] Referral IDStatusReasonStart DateExpiration DateVisits RequestedVisits [id number] Auto-Generated Referral [id number]-cmFb states she is here for a follow [...] needed to use them.ReasonCommentsGynecologic Exam ReasonOnset DateCommentsMed Vbssdx634ReasonOnset DateCommentsMed Refill 4ReasonOnset DateCommentsMed Oqnysc024ReasonCommentsFollow-up Base of tongue massReasonCommentsADHDReasonCommentssick visitReasonCommentsChest PainAbdominal PainHeadachePatient c/o chest pain that started approximately 0000. States she now also has abdominal pain, n/v, and a headache.ReasonOnset DateCommentsMed Qtkvow9511/22/2024ReasonCommentsEaracheReasonCommentsEar Problem OqjugbIkmrlzovYrwgik-evBncmrkOohnlsepRrsl-gtDoit RemovalReasonCommentsSore ThroatReasonCommentsSore ThroatChronicReasonCommentsPost-opReasonCommentsVaginal BleedingPt states that she is 5 weeks and started spotting around 7 pm. Pt states that she is not spotting currently but is now having sharp abdominal and chest pain.DouqbpZsutzgwrNydtqn-xo4-5 week follow upReasonOnset DateComments Refill Ijbxcxq0801/07/2025ReasonCommentsDizzinessFelt light headed at work. Was told her BS was low and her bp was high. Hx of elevated bp.ReasonOnset Date CommentsMed Zboops0001/15/2025ReasonOnset DateCommentsMed Ikzzjj8202/15/2025Reason CommentsMed RefillReasonCommentsMenstrual ProblemPatient present for menses issues. Patient also had complaints of urinary irritation. Clean Catch specimen taken. LMP: 06/02/25ReasonCommentsADHDReasonCommentsInitial VisitNurse VisitReasonCommentsFollow-upWT: 173 lb BP: 118/72Follow up patient present for MORENITA, patient had a recent UTI. Patient states she still has a lot of burning. Patient was unable to get medications that were sent in yesterday due to pharmacy not having them in order until today. Care Teams (unrecognized sec tion and content) Team MemberRelationshipSpecialtyStart DateEnd Date Kerry Jain RD [address] [place] [address] [phone] Nutrition04/04/23Team MemberRelationshipSpecialtyStart DateEnd Date Kerry Jain RD [address] [place] [address] [phone] Nutrition04/04/23Team MemberRelationshipSpecialtyStart DateEnd Date Kerry Jain RD [address] [place] [address] [phone] Nutrition04/04/23Team MemberRelationshipSpecialtyStart DateEnd Date Kerry Jain RD [address] [place] [address] [phone] Nutrition04/04/23Team MemberRelationshipSpecialtyStart DateEnd Date Kerry Jain RD [address] [place] [address] [phone] Nutrition04/04/23Team MemberRelationshipSpecialtyStart DateEnd Date Kerry Jain RD [address] [place] [address] [phone] Nutrition04/04/23 Team Status: Active Member Role Status Dates Katie SinghDO denisse Primary Care Provider Active Team Status: Inactive Member Role Status Dates Katie IniguezDO magui Primary Care Provider Active Rosario Perez ProviderActiveTeam MemberRelationshipSpecialtyStart DateEnd Date Kerry Jain RD [address] [phone] Nutrition04/04/23 Team Status: Inactive Member Role Status Dates Katie SinghDO denisse Primary Care Provider Active Start: August 17, 2023 End: August 17enolRosario Palencia ProviderActiveStart: August 17, 2023 End: August 17, 2023 Team Status: Active Member Role Status Dates Provider Conversion Attending Provider Active St art: September 23, 2023 Team Status: Inactive Member Role Status Dates Katie SinghDO denisse Primary Care Provider Active Start: November 08, 2023 End: November 08tom Barcenas DOAttending ProviderActiveStart: November 08, 2023 End: November 08, 2023 Team Status: Active Member Role Status Dates Katie SinghDO denisse Primary Care Provider Active Start: November 08, 2023 Rosario Perez ProviderActiveStart: November 08, 2023 Team MemberRelationshipSpecialtyStart DateEnd Date Kerry Jain RD [address] [phone] Nutrition04/04/23Team MemberRelationshipSpecialtyStart DateEnd Date Kerry Jain RD [address] [phone] Nutrition04/04/23 Team Status: Inactive Member Role Status Dates Katie SinghDO denisse Primary Care Provider Active Start: June 27, 2024 End: June 28, 2024ThRodrigo Flynn Jr ProviderActiveStart: June 27, 2024 End: June 28, 2024Team MemberRelationshipSpecialtyStart DateEnd Date Pete Thapa, DO [address] [place] [address] PCP - GeneralFamily Medicine02/14/23Team MemberRelationshipSpecialtyStart DateEnd Date Pete Thapa, DO [address] [place] [address] PCP - GeneralFamily Medicine02/14/23am MemberRelationshipSpecialtyStart DateEnd Date Pete Thapa, DO [address] [place] [address] PCP - GeneralFamily Medicine02/14/23Team MemberRelationshipSpecialtyStart DateEnd Date Pete Thapa, DO [address] [place] [address] PCP - GeneralFamily Medicine02/14/23Te MemberRelationshipSpecialtyStart DateEnd Date Luke KerryIVET [address] [phone] 04/04/23Team MemberRelationshipSpecialtyStart DateEnd Date Pete Thapa, DO [address] [place] [address] PCP - GeneralFamily Medicine02/14/23Team MemberRelationshipSpecialtyStart DateEnd Date Pete Thapa, DO [address] [place] [address] PCP - GeneralFamily Medicine02/14/23Team MemberRelationshipSpecialtyStart DateEnd Date Pete Thapa Jr., DO PCP - GeneralFamily Jasyjhzb25/16/23Team MemberRelationshipSpecialtyStart Date End Date Pete Thapa, DO [address] [place] [address] PCP - GeneralFamily Medicine02/14/23Team MemberRelationshipSpecialtyStart DateEnd Date Pete Thapa, DO [address] [place] [address] PCP - GeneralFamily Medicine02/14/23Team MemberRelationshipSpecialtyStart DateEnd Date Pete Thapa, DO [address] [place] [address] PCP - GeneralFamily Pkemtmuz16/24/23Team MemberRelationshipSpecialtyStart Date End Date Pete Thapa Jr., DO [address] [place] [address] PCP - GeneralFamily Hkxjkrzw60/16/23Team MemberRelationshipSpecialtyStart Date End Date Pete Thapa, DO [address] [place] [address] PCP - GeneralFamily Medicine02/14/23Team MemberRelationshipSpecialtyStart DateEnd Date Pete Thapa Jr., DO [address] [place] [address] PCP - GeneralFamily Xakajwnx91/16/23Team MemberRelationshipSpecialtyStart Date End Date Pete Thapa Jr., DO [address] [place] [address] PCP - GeneralFamily Xhjhogek28/16/23Team MemberRelationshipSpecialtyStart Date End Date Pete Thapa Jr., DO [address] [place] [address] PCP - GeneralFamily Umomsntw96/16/23Team MemberRelationshipSpecialtyStart Date End Date Pete Thapa Jr., DO [address] [place] [address] PCP - GeneralFamily Aaxsnchl45/23Team MemberRelationshipSpecialtyStart Date End Date Pete Thapa Jr., DO PCP - GeneralFamily Fgxkobgp87/16/23Team MemberRelationshipSpecialtyStart Date End Date Pete Thapa Jr., DO PCP - GeneralFamily Hiciwruh85/16/23Team MemberRelationshipSpecialtyStart Date End Date Pete Thapa Jr., DO PCP - GeneralFamily [id number] MemberRelationshipSpecialtyStart Date End Date Pete Thapa Jr., DO PCP - GeneralFamily [id number] MemberRelationshipSpecialtyStart Date End Date Pete Thapa Jr., DO PCP - GeneralFamily Xnmbcpok61/16/23Team MemberRelationshipSpecialtyStart Date End Date Pete Thapa Jr., DO PCP - GeneralFamily Igjsoyof34/16/23Team MemberRelationshipSpecialtyStart Date End Date Pete Thapa Jr., DO PCP - GeneralFamily Dckvginw66/16/23Team MemberRelationshipSpecialtyStart Date End Date Pete Thapa DO [address] [facility] [address] [place] [address] PCP - GeneralCherokee [facility] Medical Centerly Qbslvvky11/24/23Team MemberRelationshipSpecialtyStart Date End Date [facility] [facility] [address] [address] Nutrition04/04/23Team MemberRelationshipSpecialtyStart DateEnd Date [facility] [address] [address] [address] Nutrition04/04/23Team MemberRelationshipSpecialtyStart DateEnd Date Pete Thapa DO [address] [facility] [address] [place] [address] PCP - Generalmi Oezxaepb55/24/23Team MemberRelationshipSpecialtyStart Date End Date Pete Thapa DO [address] [facility] [address] [place] [address] PCP - GeneralFamily Medicine02/14/23 Team Status: Inactive Member Role Status Dates Katie Thapa DO Primary Care Provider Active Start: February 18, 2025 End: February 18Pablo Celis ProviderActiveStart: February 18, 2025 End: February 18, 2025Team MemberRelationshipSpecialtyStart DateEnd Date Pete Thapa DO [address] [place] [address] PCP - GeneralFamily Lipaqjnw77/24/23Team MemberRelationshipSpecialtyStart Date End Date Pete Thapa Jr., DO [address] [place] [address] PCP - GeneralFamily Medicine02/26/25Team MemberRelationshipSpecialtyStart DateEnd Date Pete Thapa, [address] [place] [address] PCP - GeneralFamily Medicine02/14/23 Team Status: Inactive Member Role Status Dates Katie Thapa DO Primary Care Provider Active Start: April 17, 2025 End: April 17, 2025DaRosario Stuart ProviderActiveStart: April 17, 2025 End: April 17, 2025Team MemberRelationshipSpecialtyStart DateEnd Date Pete Thapa, [address] [place] [address] PCP - GeneralFamily Medicine02/14/23Team MemberRelationshipSpecialtyStart DateEnd Date Pete Thapa, [address] [place] [address] PCP - GeneralFamily Medicine02/14/23Team MemberRelationshipSpecialtyStart DateEnd Date Pete Thapa, [address] [place] [address] PCP - GeneralFamily Medicine02/14/23Team MemberRelationshipSpecialtyStart DateEnd Date Pete Thapa, DO [address] [place] [address] PCP - GeneralFamily Medicine02/14/23Team MemberRelationshipSpecialtyStart DateEnd Date Pete Thapa Jr., DO [address] [place] [address] PCP - GeneralFamily Medicine02/26/25Team MemberRelationshipSpecialtyStart DateEnd Date Pete Thapa, DO [address] [place] [address] PCP - GeneralFamily Medicine02/14/23Team MemberRelationshipSpecialtyStart DateEnd Date Pete Thapa, DO [address] [place] [address] PCP - GeneralFamily Medicine02/14/23Team MemberRelationshipSpecialtyStart DateEnd Date Pete Thapa, DO [address] [place] [address] PCP - GeneralFamily Medicine02/14/23Team MemberRelationshipSpecialtyStart DateEnd Date Pete Thapa, DO [address] [place] [address] PCP - GeneralFamily Medicine02/14/23Team MemberRelationshipSpecialtyStart DateEnd Date Pete Thapa, DO [address] [place] [address] PCP - GeneralFamily Medicine02/14/23Team MemberRelationshipSpecialtyStart DateEnd Date Pete Thapa, DO [address] [place] [address] PCP - Generalmily Medicine02/14/23Team MemberRelationshipSpecialtyStart DateEnd Date Pete Thapa, DO [address] [place] [address] PCP - Generalmily Medicine02/14/23Team MemberRelationshipSpecialtyStart DateEnd Date Pete Thapa, DO [address] [place] [address] PCP - GeneralCherokee Regional Medical Centerly Medicine02/14/23Team MemberRelationshipSpecialtyStart DateEnd Date Pete Thapa, DO [address] [place] [address] PCP - Generalmily Medicine02/14/23Team MemberRelationshipSpecialtyStart DateEnd Date Pete Thapa, DO [address] [place] [address] PCP - Generalmily Medicine02/14/23 Goals (unrecognized section and content) Goals may be documented in a n alternate section Ordered Prescriptions (unrec ognized section and content) PrescriptionSigDispensedRefillsStart DateEnd Date ondansetron (ZOFRAN-ODT) 4 MG disintegrating tablet Take 1 tablet by mouth 3 times daily as needed for Nausea or Vomiting 21 tablet 11/16/2024PrescriptionSigDispense QuantityRefillsLast FilledStart DateEnd Date meclizine (ANTIVERT) 25 MG tablet Take 1 tablet by mouth 3 times daily as needed for Dizziness 30 tablet / Scheduled Active and Recently Administ ered Medications (unrecognized section and content) Medication Order/07/ droPERidol (INAPSINE) injection 1.25 mg (COMPLETED) 1.25 mg, IntraVENous, ONCE, 1 dose, On 11/16/24 at 0215 * 0205 (Given - Provider: Aggie Gonzalez, JESSIE) ketorolac (TORADOL) injection 15 mg (COMPLETED) 15 [...] (Stopped - Provider: Aggie Gonzalez RN) Medication Order/ iopamidol (ISOVUE-370) 76 % injection 75 mL (COMPLETED) 75 mL, IntraVENous, IMG ONCE PRN, 1 dose, Starting on 11/16/24 at 0134, Until 11/16/24 at 0153,Other * 0153 (Given - Provider: Francheska Grimm) Medication Order//02/2025 meclizine (ANTIVERT) tablet 25 mg (COMPLETED) 25 [...] BE BASED ON THE PRIMARY CLINICAL RECORDS. [facility] [employer] [facility]. provides no warranty or guarantee of the accuracy or completeness of information in this document.
--- OUTSIDE RECORDS SUMMARY | 2025-09-02 06:32 | XMS_ITS | Encounter Summary ---
Author Organization [facility] Address [address] [place] [address] Care Team Providers Care Saddle Mechanic Name Role Phone Pete Thapa DO Primary Care Provider [phone] Encounter Details DateTypeDepartmentCare Team (Latest Contact Info)Nparfbbixld75/19/2025Patient Outreach [facility] [address] [place] [id number] Nirali Ferrari LPN [address] [place] [address] Social History Tobacco UseTypesPacks/DayYears UsedDateSmoking Tobacco: NeverSmokeless Tobacco: NeverAlcohol UseStandard Drinks/WeekCommentsNot Currently0 (1 standard drink = 0.6 oz pure alcohol)caffeine: lyjxbxdloepdZ0725 Health LiteracyAnswerDate RecordedHow often do you need to have someone help you when you read instructions, pamphlets, or other written material from your doctor or pharmacy? Patient declines to iweqpca1806/11/2025Humiliation, Afraid, Rape, and Kick questionnaireAnswerDate RecordedWithin the [...] times a week06/11/2025How often do you attend zoroastrianism or restorationism services?1 to 4 times per year06/11/2025Do you belong to any clubs or organizations such as zoroastrianism groups, unions, fraNubisio or athletic groups, or school groups?No06/11/2025How often do you attend meetings of the clubs or organizations you belong to?Never06/11/2025re you , , , , never , or living with a partner?Patient epgcsqon55/03/2025 AUDIT-CAnswerDate RecordedQ1: How often do you have a drink containing alcohol? Monthly or less06/11/2025Q2: How many drinks containing alcohol do you have on a typical day when you are drinking?Patient does not drink06/11/2025Q3: How often do you have six or more drinks on one occasion?Less than qoqiexj6806/11/2025 Overall Financial Resource Strain (CARDIA)AnswerDate RecordedHow hard is it for you to pay for the very basics like food, housing, medical care, and heating? Somewhat hard06/11/2025PHQ-2AnswerDate RecordedPatient Health Questionnaire-2 Wseyo26510/27/2024[place] [facility] [employer] - Occupational Stress QuestionnaireAnswerDate RecordedDo you feel stress - tense, restless, nervous, or anxious, or unable to sleep at night because yourmind is troubled all the time - these days?Only a lrfzji8906/11/2025Exercise Vital SignAnswerDate Recorded On average, how many [...] needed for daily living?No06/11/2025Edinburgh Depression ScaleAnswerDate Recorded Saxe Depression Scale Avzdc46810/10/2022The thought of harming myself has occurred to me.Never08/10/2023Housing Stability Vital SignAnswerDate RecordedIn the last 12 months, was there a time when you were not able to pay the mortgage or rent on time?No06/11/2025Number of Times Moved in the Last Year Not on file06/11/2025t any time in the past 12 months, were you homeless or living in a fci (including now)?No06/11/2025Estimated Date of UcdwairxTmgrsafxQbf51/30/2026ased on last menstrual period of 05/31/2025Sex and Gender InformationValueDate RecordedSex Assigned at BirthNot on fileLegal Sex Xmrjsh4112/21/2022 7:12 PM EDTGender JrmhgbwlBbsmnp03/15/2023 7:12 PM EDTSexual OrientationNot on fileOccupationIndustryJob Start DateJob End DateCountry side Not on fileNot on fileNot on filedocumented as of this encounter Progress Notes * Nirali Ferrari LPN - 08/27/2025 9:57 AM EST Monthly Outreach. Call to pt CAMMY Batista documented in this encounter Plan of Treatment DateTypeDepartmentCare Team (Latest Contact Info)Ztvxbsdtlxu85/08/2025 12:30 PM ESTRoutine [facility] [address] [place] [address] Jona Henley MD [address] [place] [address] documented as of this encounter Goals GoalPatient Goal TypeAssociated ProblemsRecent ProgressPatient-Stated?Author Reminders Care PlanOB RemindersNoLaure Dumont RNdocumented as of this encounter Visit Diagnoses Not on filedocumented in this encounter Additional Health Concerns Active ProblemsNoted DateDiagnosed DateOB Csblmhntn12/10/2025 documented as of this encounter Care Teams Team MemberRelationshipSpecialtyStart DateEnd Date Pete Thapa DO [address] [place] [address] PCP - GeneralFamily Medicine02/14/23documented as of this encounter
--- OUTSIDE RECORDS SUMMARY | 2025-09-02 06:32 | XMS_ITS | Encounter Summary ---
Author Organization [facility] Address [address], [address] [place] [address] Care Team Providers Care Tank House Operator Helper Name Role Phone Pete Thapa Primary Care Provider [phone] Encounter Details DateTypeDepartmentCare Team (Latest Contact Info)Lyyfmcmsndc74/20/2025Travel Social History Tobacco UseTypesPacks/DayYears UsedDateSmoking Tobacco: NeverSmokeless [...] Safety Domain Source: IP Abuse ScreeningAnswerDate RecordedPhysical sxopuPwhcvs50/22/2025 Verbal ieeiiEummoh20/22/2025Emotional iyxapOixutu42/22/2025Financial abuseDenies 11/30/2024Sexual akwljDrvazj10/22/2025Estimated Date of DeliveryComments Yes03/07/2026Sex and Gender InformationValueDate RecordedSex Assigned at Not on fileLegal JqhBpynmj96/24/2019 9:23 AM EDTGender IdentityNot on fileSexual OrientationNot on filedocumented as of this encounter Functional Status documented as of this encounter Plan of Treatment Not on file documented as of this encounter Visit Diagnoses Not on filedocumented in this encounter Care Teams Team MemberRelationshipSpecialtyStart DateEnd Date Pete Thapa DO [address] [facility] [address] [place] [address] PCP - GeneralFamily Vacwnkcl37/24/23documented as of this encounter
--- OUTSIDE RECORDS SUMMARY | 2025-09-02 06:32 | XMS_ITS | Clinical Summary ---
Author Organization [facility] Address [facility] [place] [address] Care Team Providers Care Pastry Supervisor Name Role Phone CrtKerry Palencia RD Unavailable Jona Henley MD Unavailable [phone] Allergies Active AllergyReactionsCriticalityNoted DateCommentsDoxycyclineOther: See Qherjlep10/21/2022 dizziness Penicillin G GafozkXvov53/21/2022yproheptadineDiarrhea,Other: See CommentsHigh 08/02/2013 Passing out, turning white. Seasonal Eylfnzvfn25/18/2010 Medications * This document contains information received [...] pain08/19/2015Generalized abdominal pain08/04/2015Hearing loss due to cerumen /05/2015Retained myringotomy tube in left ear07/13/2015ttention deficit hyperactivity disorder (ADHD), combined type07/13/2015 Overview (07/31/2015): 2-3 years ago was seeing counselor. Impulsive behavior as a kid: would run away. Was on Concerta 2-3 yrs ago. Was losing weight on this. Did help a lot per parents with cooperation, grades, focus. Pzvkyjw3508/09/2013 Overview (07/31/2015): Was on meds in past ? Name. Did seem to help. Rxed by psychiatrist. Resolved Problems ProblemNoted DateDiagnosed DateResolved DateConductive hearing loss in left ear Constipationbdominal pain07/22/2015 07/24/20158027Clihkaqmkkv22Child victim of psychological bullying HeadacheImpacted pnhjskw5802/08/2011 08/09/2013Eustachian tube hhhnmyxbxvw96Otitis media with enatizbm71 Encounters DateTypeDepartmentCare RweuIeyfxcfogyx87/03/2025 Patient Msg Referring Physician [address] [place] [address] Provider, [facility] Vhltpegv60/26/2025Refill Dermatology [address] [place] [address] Mary Ann Ma MD Refill Requestfrom [...] PF (AFLURIA, FLUARIX, FLULAVAL, FLUZONE)07/08/2015influenza vaccine, unspecified ppmvhgtnoxx55/22/2013,07/28/2011,08/24/2010,07/22/2009measles mumps rubella (MMR) vaccine (M-M-R II, PRIORIX)01/30/2008,04/21/2004meningococcal (MenACWY-D) vaccine, quadrivalent (MENACTRA)07/31/2015pneumococcal conjugate (PCV) vaccine, unspecified lnbxxoiqddk45/14/2004,09/09/2003,04/21/2003,2002poliovirus (IPV) vaccine, inactivated (IPOL)01/30/2008,09/09/2003,02/17/2003,2002 varicella (HUSSAIN) vaccine (VARIVAX)11/08/2004 Family History Medical HistoryRelationCommentsdegenerati disc disease [Other]Fatherlactose intolerant [Other]FatherKidney DiseaseMaternal Auntkidney stonesovarian cysts [Other]Maternal AuntGERD [Other]Motherlactose intolerance [Other]Motherovarian cysts [Other]MotherRelationStatusCommentsFatherMaternal AuntMother Social History Tobacco UseTypesPacks/DayYears UsedDateSmoking Tobacco: NeverSmokeless Tobacco: Never Tobacco Cessation:Counseling Given: Not Answered Comments:no one in household smokes Alcohol UseStandard Drinks/WeekCommentsNo0 (1 standard drink = 0.6 oz pure alcohol)PHQ-2AnswerDate RecordedPHQ-2 vibka140/15/2024Area Deprivation Index AnswerDate RecordedNational Score (1-100), lower number is lower risk82 08/16/2023State Score (1-10), lower number is lower gpjf5323Data from: https://www.neighborhoodatlas.medicine.[facility]/. Last address used for xlzxqjfcesm[address]CommentsNoSex and Gender InformationValueDate RecordedSex Assigned at BirthNot on fileLegal SexFemale 09/09/2012 8:28 AM ESTGender IdentityNot on fileSexual OrientationNot on file Last Filed Vital Signs Vital SignReadingTime TakenCommentsBlood Cllwaelp905/6702 11:32 AM EST Bbpnk379911/14/2022 11:32 AM MSKZhfwgnqptxw15.3 ??C (97.3 ??F)03/03/2017 2:17 PM EDTRespiratory Ispl8109 3:59 PM ESTOxygen Dwywqdacee919%11/14/2022 11:32 AM ESTInhaled Oxygen Concentration--Fsijwn69.8 kg (195 lb 12.8 oz)06/01/2023 9:06 AM SDNJvowsb472.6 cm (5' 6 )06/01/2023 9:06 AM EDTBody Mass Index31.6 06/01/2023 9:06 AM EDT Plan of Treatment Health MaintenanceDue DateLast DoneCommentsPeds To Adult Transition Initial Vvhtvlqzvw28/10/2015Peds To Adult Transition Annual Cgqkrdvfrs00/10/2017 Meningococcal B Vaccine (1 of 2 - Standard)2018Chlamydia Screening (18-24) 2020epression Bryvqqayx97/10/2021GC (Gonorrhea) Screening (18-24) 2020HIV Wixbgmlrs81/10/2021Hepatitis C Ngaanvkdf39/10/2021ervical Cancer Qsavtfsgi94/10/2024ovid-19 Vaccine (3 - 2024- season)506/10/2022, 12/22/2022Influenza Vaccine (#1)2024, 06/23/2023, 08/03/2022, Additional history existsDTaP,Tdap,Td Vaccine (7 - Td or Tdap)06/25/2025 06/25/2015, 01/30/2008, 11/08/2004, Additional history existsHepatitis B Vaccine Qaxzxlbln83/14/2003, 2002, 2002HPV WixtatxFneqsrrsb97/05/2017, 12/15/2016 Medical Devices ImplantedTypeAreaManufacturerDevice IdentifierShelf Expiration DateModel / Serial / LotTube Vent 4.8mm 1.32mm Rchrd - [id number] Implant[facility]ImplantBilateral: Ear - Tympanic MembraneGYRUS GRP ENT08/08/[id number] / / [id number] [place] Vent [id number] - [id number] Implanted:Qty: 2 on 02/17/2010 at [facility] TubesBilateral: Ear - Tympanic Eehbnxoa77/01/[id number] / / [id number] Insurance Care Teams Team MemberRelationshipSpecialtyStart DateEnd Date Crtalic-Kerry Coates RD [facility] [address] 04/04/23 Jona Henley MD [address] [place] [id number] ReferringOb/Gyn06/11/25
--- OUTSIDE RECORDS SUMMARY | 2025-09-02 06:33 | XMS_ITS | Clinical Summary ---
Author Organization [facility] Address [address] [place] [address] Care Team Providers Care Laboratory Animal Caretaker Name Role Phone ePte Thapa DO Primary Care Provider [phone] Allergies Active AllergyReactionsCriticalityNoted ZnayUxjhdshzLkhilaukqonh42/09/2023 Other Reaction(s): Unknown Reaction GpvvbnezslgwenFfndqzykHzqo44/25/2013 Other Reaction(s): Other: See Comments Other reaction(s): Other: See Comments Passing out, turning white. Passing out, turning white. HgejzmjipuqLxfpfuvxlAkm34/21/2022 Other Reaction(s): Dizzy/Vertigo, Other: See Comments Other reaction(s): Other: See Comments Other reaction(s): dizziness dizziness dizziness Other Reaction(s): Unknown Reaction, rash Levonorgestrel-Ethinyl Wtcirp2012/24/2009 Other Reaction(s): Other (See Comments) Patient not sure DidjmkhqiIwqpezedefduZrc25/09/2023Penicillin G SinlpsUwvlOnd20/21/2022 Other reaction(s): rash Ldohdanfmpl68/31/2024 Other Reaction(s): Unknown Reaction, rash Medications MedicationSigDispense [...] tablet Indications: confirmed by positive blood test ([facility])Take 1 tablet by mouth Daily 30 tablet 6Active triamcinolone (Kenalog) 0.1 % cream Indications:Acute vulvitisApply topically in the morning and before bedtime. 30 g 5Active ondansetron (Zofran) 4 MG tablet Indications:NauseaTake 1 tablet (4 mg) by mouth every 6 (six) hours if needed for nausea or vomiting 30 tablet 5Active ondansetron (Zofran) 4 MG tablet Indications:NauseaTake 1 tablet (4 mg) by mouth 2 (two) times a day as needed for nausea or vomiting 20 tablet Discontinued(Reorder) clindamycin (Cleocin) 300 MG capsule Indications:Urinary tract infection without hematuria, site unspecifiedTake 1 capsule (300 mg) by mouth in the morning and 1 capsule (300 mg) at noon and 1 capsule (300 mg) in the evening and 1 capsule (300 mg) before bedtime. Do all this for 10 days. 40 capsule Expired vancomycin (Vancocin) 250 MG capsule Indications:Urinary tract infection without hematuria, site unspecifiedTake 1 capsule (250 mg) by mouth in the morning and 1 capsule (250 mg) at noon and 1 capsule (250 mg) in the evening and 1 capsule (250 mg) before bedtime. Do all this for 10 days. 40 capsule Expired terconazole (Terazol 7) 0.4 % vaginal cream Indications:Vulvovaginal CandidiasisInsert 1 applicator into the vagina at bedtime for 7 days 45 g 5110/12/2024Expired terconazole (Terazol 7) 0.4 % vaginal cream Indications:Vaginitis and vulvovaginitisInsert 1 applicator into the vagina at bedtime for 7 days 45 g Expired Active Problems ProblemNoted DateDiagnosed DateMiscarriage ([facility])02/26/2025Depression 06/29/20238690Sonnrugttf05/21/2023Menorrhagia with irregular cycle06/29/2023 Ulkigygoes03/29/2023bnormal thyroid function test12/14/2022cne vulgaris 12/14/2022 Assessment & Plan (06/13/2025 10:58 AM EDT): Problem is stable, will continue with current treatment plan. Call or return to clinic if any changes occur Orders: clindamycin (Cleocin T) 1 % external solution; Apply topically in the morning and before bedtime. APPLY TO AFFECTED AREAS ON FACE ONCE A DAY. Paedzwsfqioagwbd52/08/2023Obesity (BMI 30.0-34.9)12/14/2022Weight gain12/14/2022 Gross cktitegnu15/15/2023 Overview (06/29/2023): Added automatically from request for surgery [id number] Right lower quadrant abdominal pain11/23/2022 Overview (06/29/2023): Added automatically from request for surgery [id number] Tinnitus, right ear09/15/2022Nausea and iiodoasc68/07/2022erumen debris on tympanic membrane of right ear02/08/2021hronic [...] or split. Hearing loss due to cerumen pyiojvvqq05/05/2015Retained myringotomy tube in left ear07/13/20151415Kdzmgrh52/01/2013 Overview (06/29/2023): Was on meds in past ? Name. Did seem to help. Rxed by psychiatrist. Estimated Date of MryhyhciYnmncpwwTcv21/30/2026ased on last menstrual period of 05/31/2025 Resolved Problems ProblemNoted DateDiagnosed DateResolved DateChiari Overview (06/29/2023): Added automatically from request for surgery [id number] Encounters DateTypeDepartmentCare KakuEbanjemgshx73/21/2025Patient Outreach [facility] [address] [place] [address] Nirali Ferrari LPN 08/27/2025Patient Outreach [facility] [address] [place] [address] Nirali Ferrari LPN 08/27/2025Patient Outreach [facility] [address] [place] [address] Nirali Ferrari LPN 08/22/2025 10:00 AM ESTAncillary Procedure [facility] [place] [facility] [address] [place] [address] History of miscarriage, currently , first trimester ([facility])08/22/2025 Twpera2608/18/2025 12:45 PM ESTInitial [facility] [address] [place] [phone] Jona Henley MD GA: [id number] flowsheet [facility] [address] [place] [address] Jona Henley MD 08/18/20256131Lpckys38/28/2025Telephone [facility] [address] [place] [phone] Jona Henley MD 08/05/2025Orders Only [facility] [address] [place] [phone] Jona Henley MD Acute vaginitis (Primary Dx); Acute xojhcvvm57/24/2025bstract [facility] [address] [place] [address] Nirali Ferrari LPN 07/31/2025 2:45 PM EDTAncillary Procedure [facility] [place] [facility] [address] [place] [phone] Bleeding in early ([facility]); Prior miscarriage with in first trimester, antepartum ([facility]) 07/31/2025 10:30 AM EDTOffice Visit [facility] [place] [facility] [address] [place] [address] Jona Henley MD 9 weeks gestation of ([facility]) (Primary Dx); Vaginal burning; Vaginal irritation; Vaginal itching; Nonintractable headache, unspecified chronicity pattern, unspecified headache type; Vaginitis and vulvovaginitis; Cervicitis and endocervicitis; Jcsayjwc55/23/2025linisync Result Encounter [facility] Department Unsolicited Provider, Generic External Data 07/31/2025amboo flowsheet [facility] [place] [facility] [address] [place] [address] Jona Henley MD 07/31/20250262Cvpiip11/22/2025Orders Only [facility] [place] [facility] [address] [place] [phone] Jona Henley MD 07/30/2025Orders Only [facility] [address] [place] [address] Jona Henley MD Urinary tract infection without hematuria, site unspecified (Primary Dx) 07/25/2025Patient Outreach [facility] [address] [place] [address] Nirali Ferrari LPN 07/21/2025Telephone [facility] [address] [place] [phone] Gm Gomez LPN ER Follow-up07/18/2025 10:30 AM EDTInitial [facility] [place] [facility] [address] [place] [phone] GA: 6w6d1Results Follow-Up [facility] [place] [facility] [address] [place] [phone] Jona Henley MD Urine culture, Urine Culture Clean Catch Ywhptm7307/18/20252854Rarvqm68/09/2025 Clinisync Result Encounter [facility] External Department Unsolicited Jona Henley MD 07/15/2025Orders Only [facility] External Department Unsolicited Jona Henley MD 07/14/2025Orders Only [facility] [place] [facility] [address] [place] [phone] Jona Henley MD Nausea (Primary Dx); examination or test, tezvqbhawcg94/06/2025Telephone [facility] [place] [facility] [address] [place] [address] Jessy Barcenas LPN 5Clinisync Result Encounter [facility] External Department Unsolicited Provider, Generic External Data 07/03/2025linisync Result Encounter [facility] External Department Unsolicited Provider, Generic External Data 06/16/2025Results Follow-Up [facility] [place] [facility] [address] [place] [address] Jona Henley MD METHYLENETETRAHYDROFOLATE REDUCTASE (MTHFR) LAHAFDYEZXSL79/05/2025 10:40 AM EDT Office Visit [facility] [address] [place] [address] Pete Thapa DO Major depressive disorder, single episode, mild ; Acne vulgaris; Attention deficit hyperactivity disorder (ADHD), combined type06/13/2025amboo flowsheet [facility] [address] [place] [address] Pete Thapa DO 06/13/20257122Aohbjw47/03/2025Orders Only [facility] [place] [facility] [address] [place] [address] Jona Henley MD Urinary tract infection without hematuria, site unspecified (Primary Dx) 06/11/20251267Wnsisv78/03/2025Results Follow-Up [facility] [place] [facility] [address] [place] [address] Jona Henley MD Iron and TIBC, CBC and differential, Ferritin, Additional followed-up results: 4 06/10/2025 8:45 AM EDTOffice Visit [facility] [place] [facility] [address] [place] [address] Jona Henley MD Chiari malformation type I (HCC) (Primary Dx); Amenorrhea; Menorrhagia with irregular cycle; Excessive bleeding in premenopausal period; History of miscarriage; Vaginal burning; Vaginal itching; Vaginal iynuscwqen18/02/2025Orders Only [facility] External Department Unsolicited Jona Henley MD 06/10/20256262Wprvim81/29/2025 8:45 AM EDTAncillary Procedure [facility] [place] [facility] [address] [place] [address] Menorrhagia with regular cycle; Kixupaenlogz94/29/2025Travelfrom Last 3 Months Immunizations ImmunizationAdministration DatesNext KimSRfH7901/30/2008,11/08/2004,04/21/2003, 02/17/2003,2002HPV 9-Fppvui9807/13/2017,12/15/2016Hep A, Adult12/15/2016Hep A, ped/adol, 2 dose07/13/2017,12/15/2016Hep B, Adolescent or Sinrdvbcp31/14/2003 ,2002,2002HiB, dygiwbqhlwe82/14/2004,04/21/2003,02/17/2003, 2002Hib (HbOC)04/21/2004,04/21/2003,02/17/2003,2002IPV01/30/2008, 09/09/2003,02/17/2003,2002Influenza, Injectable, MDCK, preservative free 06/13/2024Influenza, Huolanhytwh87/22/2013,07/28/2011,08/24/2010,07/22/2009 Influenza, injectable, MDCK, preservative free, wpsboggszjiw57/15/2023, 08/03/2022,07/10/2019Influenza, injectable, MDCK, bfwpgpnzvuqm24/24/2020 Influenza, injectable, quadrivalent, preservative free06/04/2021,07/06/2018, 07/13/2017,07/08/2015,07/30/2013Influenza, live, vrojcqqvcg58/14/2009Influenza, seasonal, /30/2015,07/28/2011,08/31/2004,10/15/2003,09/12/2003 Influenza, seasonal, injectable, preservative free08/24/2010,08/31/2004MMR 01/30/2008,04/21/2004Meningococcal PPV7Q10Meningococcal RHQ8W9107/31/2015 Pneumococcal Conjugate PCV 7004/21/2004,09/09/2003,04/21/2003,2002 Pneumococcal Conjugate, Nqryhrawstb90/14/2004,09/09/2003,04/21/2003,2002 SARS-COV-2 (COVID-19) vaccine, mRNA, spike protein, LNP, bivalent, preservative free, 30 mcg/0.3 mLdose, merly-sucrose qmgemvfxbhm89/01/6165Qdcd48/17/2015 Yyakdlhsb73/31/2005 Family History Medical HistoryRelationNameCommentsNo Known ProblemsFatherNo Known Problems Maternal GrandfatherNo Known ProblemsMaternal GrandmotherAsthmaMotherLeukemia Paternal GrandfatherBreast cancerPaternal GrandmotherLung cancerPaternal GrandmotherThyroid diseasePaternal GrandmotherRelationNameStatusCommentsFather Maternal GrandfatherMaternal GrandmotherMotherPaternal GrandfatherPaternal Grandmother Social History Tobacco UseTypesPacks/DayYears UsedDateSmoking Tobacco: NeverSmokeless Tobacco: Never Tobacco Cessation:Counseling Given: Yes Alcohol UseStandard Drinks/WeekCommentsNot Currently0 (1 standard drink = 0.6 oz pure alcohol)caffeine: cousicdvgraxH1574 Health LiteracyAnswerDate RecordedHow often do you need to have someone help you when you read instructions, pamphlets, or other written material from your doctor or pharmacy?Patient declines to vdmfumf1506/11/2025Humiliation, Afraid, Rape, and Kick questionnaire AnswerDate RecordedWithin [...] times a week06/11/2025How often do you attend hoahaoism or gnosticist services?1 to 4 times per year06/11/2025Do you belong to any clubs or organizations such as hoahaoism groups, unions, fraEarth Sky or athletic groups, or school groups?No06/11/2025How often do you attend meetings of the clubs or organizations you belong to?Never06/11/2025re you , , , , never , or living with a partner?Patient authrvus44/03/2025 AUDIT-CAnswerDate RecordedQ1: How often do you have a drink containing alcohol? Monthly or less06/11/2025Q2: How many drinks containing alcohol do you have on a typical day when you are drinking?Patient does not drink06/11/2025Q3: How often do you have six or more drinks on one occasion?Less than lsfqcne7606/11/2025 Overall Financial Resource Strain (CARDIA)AnswerDate RecordedHow hard is it for you to pay for the very basics like food, housing, medical care, and heating? Somewhat hard06/11/2025PHQ-2AnswerDate RecordedPatient Health Questionnaire-2 Kmzlx66510/29/2024[facility] [place] [facility] Occup[facility] - Occupational Stress QuestionnaireAnswerDate RecordedDo you feel stress - tense, restless, nervous, or anxious, or unable to sleep at night because yourmind is troubled all the time - these days?Only a mvjvlt9206/11/2025Exercise Vital SignAnswerDate Recorded On average, how many [...] needed for daily living?No06/11/2025Edinburgh Depression ScaleAnswerDate Recorded [place] Depression Scale Ovqnh61610/10/2022The thought of harming myself has occurred to me.Never08/10/2023Housing Stability Vital SignAnswerDate RecordedIn the last 12 months, was there a time when you were not able to pay the mortgage or rent on time?No06/11/2025Number of Times Moved in the Last Year Not on file06/11/2025t any time in the past 12 months, were you homeless or living in a detention (including now)?No06/11/2025Estimated Date of XlxywdvmYztteonpJlo21/30/2026ased on last menstrual period of 05/31/2025Sex and Gender InformationValueDate RecordedSex Assigned at BirthNot on fileLegal Sex Ezidpq3512/21/2022 7:12 PM EDTGender VioxldjoYmicui92/15/2023 7:12 PM EDTSexual OrientationNot on fileOccupationIndustryJob Start DateJob End DateCountry side Not on fileNot on fileNot on file Last Filed Vital Signs Vital SignReadingTime TakenCommentsBlood Upkdltbi950/6211/07/2025 12:47 PM EST Uxrob1645/05/2025 10:39 AM AIDSkjaxdufewk33.6 ??C (97.8 ??F)06/13/2025 10:39 AM EDTRespiratory Rate--Oxygen Vjylnuxohq06%06/13/2025 10:39 AM EDTInhaled Oxygen Concentration--Jfzarj24.2 kg (179 lb)08/18/2025 12:47 PM YMWMggldf349.7 cm (5' 8 )06/13/2025 10:39 AM EDTBody Mass Index27.22006/13/2025 10:39 AM EDT Plan of Treatment DateTypeDepartmentCare Team (Latest Contact Info)Bdpwqmtwdtd17/08/2025 12:30 PM ESTRoutine [facility] [place] [facility] [address] [place] [phone] Jona Henley MD [address] [place] [address] Health MaintenanceDue DateLast DoneCommentsCOVID-19 Vaccine ( season) neumococcal Vaccine: Pediatrics (0 to 5 Years) and At-Risk Patients (6 to 64 Years)Aged Out04/21/2004, 04/21/2004, 09/09/2003, Additional history existsNo longer eligible based on patient's age to complete this topic Influenza RvlnuwyWcduoycnv44/27/2025, 06/13/2024, 06/23/2023, Additional history exists Goals GoalPatient Goal TypeAssociated ProblemsRecent ProgressPatient-Stated?Author Reminders Care PlanOB RemindersLaure Carter RN Procedures Procedure NamePriorityDate/TimeAssociated DiagnosisCommentsUS OB LIMITED 1+ IVMGIRJXpnqklu16/14/2025 10:21 AM EST History of miscarriage, currently , first trimester ([facility]) POCT URINALYSIS MQQQHANKRtjpgxr27/10/2025 12:46 PM EST First trimester ([facility]) 11 weeks gestation of ([facility]) IGP, APT HPV,RFX 16/18,96Rvqobvd85/10/2025 12:00 AM EST Encounter for gynecological examination without abnormal finding Encounter for screening for cervical cancer US OB AZATRLLYBUWNVxygalp00/23/2025 3:09 PM EDT Bleeding in early ([facility]) Prior miscarriage with in first trimester, antepartum ([facility]) TBH PREG QUANT RKXBxmoyrm21/23/2025 9:50 AM EDT NUSWAB VAGINITIS PLUS (VG+)Rcratua1207/31/2025 12:00 AM EDT Vaginitis and vulvovaginitis Cervicitis and endocervicitis TBH PREG QUANT DTLRjvktyv15/09/2025 4:30 PM EDT URINE CULTURE CLEAN CATCH NLFROIMtyuwal97/07/2025 12:00 AM EDT CULTURE, URINE, TOJPTYQFhscwgt36/07/2025 12:00 AM EDT TBH PREG QUANT AXMZslynnk95/27/2025 10:14 AM EDT TBH PREG QUANT HKUXuuzfku79/25/2025 9:51 AM EDT METHYLENETETRAHYDROFOLATE REDUCTASE (MTHFR) ZEDZUMFEHBZKUpbqlqz99/02/2025 10:17 AM EDT YVWRHKKSIvcpooa61/02/2025 10:16 AM EDT Amenorrhea Menorrhagia with irregular cycle Excessive bleeding in premenopausal period CBC (INCLUDES DIFF/PLT)Opmohgd9806/10/2025 10:16 AM EDT Amenorrhea Menorrhagia with irregular cycle Excessive bleeding in premenopausal period IRON AND TOTAL IRON BINDING CEUXFQVPDqtyzii30/02/2025 10:16 AM EDT Amenorrhea Menorrhagia with irregular cycle Excessive bleeding in premenopausal period HCG, TOTAL, GQTttagip32/02/2025 10:14 AM EDT Amenorrhea LUPUS CDPNTDGDOKFLGQjabdju13/02/2025 10:14 AM EDT History of miscarriage URINE CULTURE CLEAN CATCH PKSBXRFznpmxi65/02/2025 12:00 AM EDT CULTURE, URINE, MPXRMNQOjzwwks27/02/2025 12:00 AM EDT Vaginal burning Vaginal itching Vaginal irritation US PELVIS RFDOVHMWYMWTFfoucnn72/29/2025 9:06 AM EDT Menorrhagia with regular cycle Dysmenorrhea from Last 3 Months Results * US OB limited 1+ fetuses (08/22/2025 10:21 AM EST)Anatomical RegionLaterality ModalityBodyUltrasoundStudy GAStudy DateStudy EDDWorking CHERYL (Source) (Last Menstrual Period)Fetus A MeasurementsValueGA (days) CRLSac [...] included. ?? Obstetrics & Gynecology ? [address] ? [address] ? [address] ?[address], [facility] [address] ? [place] [address] ?[place] [address] ? - - - - - - [...] - - ?Early Assessment Patient name: Charis [place] : 2000 (24 [...] - - Ordering/Reading Provider: Jona Henley M.D. ??Fixture Builder: Maico Ross RDMS Authorizing ProviderResult TypeResult StatusJona Henley [facility] US PROCEDURESFinal Result * POCT urinalysis dipstick manually resulted (08/18/2025 12:46 PM EST)Component ValueRef RangeTest MethodAnalysis TimePerformed AtPathologist SignatureColor, UAYellowClarity, UAClearGlucose, UANegativeNegative - 2000(110) ++++ mg/dL Bilirubin, UANegativeNegative - 4(70) +++ mg/dLKetones, UANegativeNegative - 160(16) ++++ mg/dLSpec Grav, UA1.0201 - 1.03Blood, UANegativeNegative - 50 Darrius/mcLpH, UA6.55 - 9Protein, UANegativeNegative - 2000(20) ++++ mg/dL Urobilinogen, UA1.00.2 - 12 mg/dLLeukocytes, UANegativeNegative - 500+++ Keiko/mcLNitrite, UANegativeNegative - PositiveSpecimen (Source)Anatomical Location / LateralityCollection Method / VolumeCollection TimeReceived Time Urine08/18/2025 12:46 PM EST Narrative Authorizing ProviderResult TypeResult StatusJona Henley [facility]ARE TEST ENTER/EDIT ORDERABLESFinal Result * (ABNORMAL) IGP, APT HPV,RFX 16/18,45 (08/18/2025 12:00 AM EST)ComponentValue Ref RangeTest MethodAnalysis TimePerformed AtPathologist SignatureDiagnosis: Comment(A)[facility]ABCORPComment: EPITHELIAL CELL ABNORMALITY. LOW GRADE SQUAMOUS INTRAEPITHELIAL LESION (LSIL). Specimen Adequacy:CommentLABCORPComment: Satisfactory for evaluation. ??Endocervical and/or squamous metaplastic cells (endocervical component) are present. Clinician Provided ICD10:CommentLABCORPComment: Z01.419 Z12.4 Performed By:CommentLABCORPComment:Ponce Ahn, Director Specialty ([facility]) Electronically Signed By:CommentLABCORPComment:Olga Cervantes MD, Pathologist Cyto Comments.LABCORPPathologist Provided ICD10:CommentLABCORPComment:R87.612 Note:CommentLABCORPComment: The Pap smear is a screening test designed to aid in the detection of premalignant and malignant conditions of the uterine cervix. ??It is not a diagnostic procedure and should not be used as the sole means of detecting cervical cancer. ??Both false-positive and false-negative reports do occur. Test Methodology:CommentLABCORPComment: This liquid based ThinPrep(R) pap test was interpreted using the [employer](R) Genius(TM) Cervical Algorithm whole slide imaging system. HPV AptimaNegativeNegativeLABCORPComment: This nucleic acid amplification test detects fourteen high-risk HPV types (16,18,31,33,35,39,45,51,52,56,58,59,66,68) without differentiation. Specimen (Source)Anatomical Location / LateralityCollection Method / Volume Collection TimeReceived TimeVaginal Fluid Narrative [facility] - 08/21/2025 4:08 PM EST Performed at: 01 - [facility] [place] [address] [facility] [address], [place], [place] [id number] Retail Business Analyst: Mignon Lugo MD, Phone: ??[phone] Performed at: ??02 - [facility] ??[id number] Retail Business Analyst: Barbie Mota MD, Phone: ??[phone] Performed at: ??03 - [facility] [address] ??[id number] Retail Business Analyst: Barbie Mota MD, Phone: ??[phone] Specimen Comment: No. of containers..01 ThinPrep Vial Authorizing ProviderResult TypeResult StatusJona Henley MDLAB BLOOD ORDERABLESFinal ResultPerforming OrganizationAddressCity/State/ZIP CodePhone Number [facility] * OB transvaginal (07/31/2025 3:09 PM EDT)Anatomical RegionLateralityModality BodyUltrasoundStudy GAStudy DateStudy EDDWorking CHERYL (Source)07/31/2025 03/07/2026 (Last Menstrual Period)Fetus A MeasurementsValueGA (days)CRLSac DiameterBiparietal DiameterHead CircumferenceAbdominal CircumferenceFemur LengthFetal Ulna LengthFetal Humerus LengthFetal Tibia LengthHeart RateYOLK SAC MEASUREMENTCERVICAL W/FUNDAL PRESSURECERVICAL W/ VALSALVASpecimen (Source) Anatomical Location / LateralityCollection Method / VolumeCollection Time Received Time Narrative 08/05/2025 6:50 PM EDT Table formatting from the original result was not included. Images from the original result were not included. ?? Obstetrics & Gynecology ? [address] ? [address] ? [address] ?[address], [facility] [address] ? [place] [address] ?[place] [address] ? - - - - - - [...] - - ?Early Assessment Patient name: Charis [place] : 2000 (24 y.o.) Date of exam: 07/31/25 - - - - - - - - - - - - - - - - - - - - - - - - - - - - - - - Indication: first trimester screening, spotting, history of MAB Surgical History: none Method: Transvaginal ultrasound examination View: Adequate - - - - - - - - - - - - - - - - - - - - - - - - - - - - - - - Type of gestation: Villarreal Number of embryos: 1 - - - - - - - - - - - - - - - - - - - - - - - - - - - - - - - Dating: Method of dating: Date: Details: Gest Age: CHERYL: Assigned dating: LMP 05/31/25 ??8 w 5 d 03/07/26 [x] Ultrasound 07/31/25 CRL ??8 w 3 d 03/09/26 [] - - - - - - - - - - - - - - - - - - - - - - - - - - - - - - - Fetus: Gestational sac: visualized Location: Intrauterine Yolk sac: visualized (2.6 mm) Amniotic sac: visualized Embryo: visualized Cardiac activity: present FHR: 170 bpm - - - - - - - - - - - - - - - - - - - - - - - - - - - - - - - Maternal Structures: Uterus: Visualized Size: 10.0 x 7.4 x 7.7 cm ??Volume: 295.7 cm?? Appearance: normal in size and contour, retroverted Right ovary: Visualized Size: 2.7 x 1.5 x 1.2 cm ??Volume: 2.6 cm?? Appearance: no cysts visualized No adnexal mass visualized Left ovary: Visualized Size: 4.0 x 3.2 x 3.5 cm ??Volume: 23.2 cm?? Appearance: The left ovary contains the corpus luteal cyst: thick-walled, sonolucent (3.6 x 2.8 x 3.0 cm) No adnexal mass visualized - - - - - - - [...] - Impression: There is a single intrauterine having normal cardiac activity. Today's ultrasound size is equal to the LMP dates. *Please note that a normal ultrasound does [...] - - Ordering/Reading Provider: Jona Henley M.D. ??Fixture Builder: Maico Ross RDMS Authorizing ProviderResult TypeResult StatusJona [facility] US PROCEDURESFinal Result * TBH PREG QUANT HCG (07/31/2025 9:50 AM EDT) Only the most recent of4 resultswithin the time period is included. ComponentValueRef RangeTest MethodAnalysis TimePerformed AtPathologist Signature HCG GADRXKAUXMIA324,050mIU/mLTBHComment: 5-50 ? 0.2-1 WEEK 50-500 ? 1-2 WEEKS 100-5,000 ?2-3 WEEKS 500-10,000 ? 3-4 WEEKS 1,000-50,000 ?? 4-5 WEEKS 10,000-100,000 5-6 WEEKS 15,000-200,000 6-8 WEEKS 10,000-100,000 2-3 MONTHS Specimen (Source)Anatomical Location / LateralityCollection Method / Volume Collection TimeReceived Time07/31/2025 9:50 AM EDT1 9:55 AM EDT Narrative [facility] - 07/31/2025 10:56 AM EDT Authorizing ProviderResult TypeResult StatusGeneric External Data Provider CLINISYNCFinal ResultPerforming OrganizationAddressCity/State/ZIP CodePhone Number [facility] * (ABNORMAL) NuSwab Vaginitis Plus (VG+) (07/31/2025 12:00 AM EDT)ComponentValue Ref RangeTest MethodAnalysis TimePerformed AtPathologist SignatureAtopobium VaginaeLow - 0ScoreLABCORPBVAB 2Low - 0ScoreLABCORPMegasphaera 1Low - 0Score LABCORPComment: Calculate total score by adding the 3 individual bacterial vaginosis (BV) marker scores together. ??Total score is interpreted as follows: Total score 0-1: Indicates the absence of BV. Total score ?? 2: Indeterminate for BV. Additional clinical ? data should be evaluated to establish a ? diagnosis. Total score 3-6: Indicates the presence of BV. Gin Albicans, NAAPositive(A)NegativeLABCORPCandida Glabrata, NAANegative NegativeLABCORPTrich Vag By NAANegativeNegativeLABCORPChlamydia Trachomatis, JANET NegativeNegativeLABCORPNeisseria Gonorrhoeae, NAANegativeNegativeLABCORPSpecimen (Source)Anatomical Location / LateralityCollection Method / VolumeCollection TimeReceived TimeSwabVaginal structure / Isriqai29omment: Vagina Narrative [facility] - 08/02/2025 11:07 AM EDT Test(s) 719566- Atopobium vaginae; 059689- BVAB 2; 703831- ?Megasphaera 1 was developed and its performance characteristics determined by [facility]. It has not been cleared or approved by the Food and Drug Administration. Test(s) 586234-Gaphrsw albicans, JANET; 503113-Laqqivr glabrata, JANET was developed and its performance characteristics determined by [facility]. It has not been cleared or approved by the Food and Drug Administration. Performed at: ??01 - [facility] ??[id number] Retail Business Analyst: Barbie Mota MD, Phone: ??[phone] Authorizing ProviderResult TypeResult StatusJona Henley MDNORTHEAST KANSAS C[facility] MICROBIOLOGY - GENERAL ORDERABLESFinal ResultPerforming OrganizationAddressCity/State/ZIP Code Phone Number [facility] * (ABNORMAL) Urine Culture Clean Catch Reflex (07/15/2025 12:00 AM EDT) Only the most recent of2 resultswithin the time period is included. ComponentValueRef RangeTest MethodAnalysis TimePerformed AtPathologist Signature Ur Cult 1Enterococcus faecalis(A)LABCORPComment: Enterococci susceptible to penicillin are predictably susceptible to ampicillin, amoxicillin, ampicillin-sulbactam, amoxicillin-clavulanate, and piperacillin-tazobactam for eok-vgik-ufzawhhpy producing enterococci. (CLSI 2018) For Enterococcus species, aminoglycosides (except for high-level resistance screening), cephalosporins, clindamycin, and trimethoprim-sulfamethoxazole are not effective clinically. (CLSI, A533-I90, 2016) Note: this isolate is vancomycin-susceptible. This [...] - 07/18/2025 5:07 PM EDT Performed at: [address] ??[id number] Retail Business Analyst: Roland Martinez PhD, Phone: ??[phone] Authorizing ProviderResult TypeResult StatusJona RAYA URINE ORDERABLESFinal ResultPerforming OrganizationAddressCity/State/[facility] CodePhone Number [facility] * (ABNORMAL) Urine culture (07/15/2025 12:00 AM EDT) Only the most recent of2 resultswithin the time period is included. ComponentValueRef RangeTest MethodAnalysis TimePerformed AtPathologist Signature Urine Cult Rt StatusFinal report(A)[facility]ABC[facility]PSpecimen (Source)Anatomical Location / LateralityCollection Method / VolumeCollection TimeReceived Time07/15/2025 07/15/2025omment:URINE Narrative [facility] - 07/18/2025 5:07 PM EDT Performed at: 01 - [facility] [address] ??[id number] Retail Business Analyst: Roland Martinez PhD, Phone: ??[phone] Authorizing ProviderResult TypeResult StatusJona RAYA MICROBIOLOGY - GENERAL ORDERABLESFinal ResultPerforming OrganizationAddressCity/State/ZIP Code Phone Number [facility] * METHYLENETETRAHYDROFOLATE REDUCTASE (MTHFR) THERMOLABILS (06/10/2025 10:17 AM EDT)ComponentValueRef RangeTest MethodAnalysis TimePerformed AtPathologist SignatureMTHFR, DNA ANALYSISCommentLABCORPComment: Result: c.665C>T (p. Pum245Jks), legacy name: C677T - Not Detected c.1286A>C (p. Wax264Rha), legacy name: [id number] - Not Detected Interpretation: This result is [...] that can decrease enzyme activity; c.665C>T (p. Iyl139Okl), legacy name C677T, and c.1286A>C (p. Xbz560Nsj), legacy name [id number]. These variants do not independently increase risk [...] to limited evidence of clinical utility (PMID: 98750585). Comments: Genetic Coordinators are available for health care providers to discuss results at [phone] Test Details: Variants Analyzed: c.665C>T (p. Fzz558Uzc), legacy name: C677T and c.1286A>C (p. Iqp257Qsc), legacy name: [id number] Methods/Limitations: DNA analysis of the MTHFR gene [...] developed and its performance characteristics determined by [facility]. It has not been cleared or approved by the Food and Drug Administration. References: Mila SE, Homer CJ, Kelsey HV. ACMG Practice Guideline: lack of evidence for MTHFR polymorphism testing. Jennyfer Med. 2013 Nov;15(2):153-6. doi: 10.1038/gim.2012.165. Epub 2012Oct 11. PMID: 65154343. [place] [employer]' Committee on Practice Bulletins-Obstetrics. ACOG Practice Bulletin No. 197: Inherited Thrombophilias in . Obstet Gynecol. 2018 Apr;132(1):e18-e34. doi: 10.1097/AOG.0957575159991967. Erratum in: Obstet Gynecol. 2018 Jul;132(4):1069. PMID: 68699452. REVIEWED BY:CommentLABCORPComment: Technical Component performed at [facility] RT Professional Component performed by: Rohit Caballero, PhD, [facility] [id number], [facility], [address] [facility] [id number] Specimen (Source)Anatomical Location / LateralityCollection Method / Volume Collection TimeReceived Time06/10/2025 10:17 AM EDT06/10/2025 Narrative [facility] - 06/16/2025 10:07 AM EDT Performed at: - [facility] [address] [facility] [place] ??[id number] Retail Business Analyst: Madyson Gillette [facility], Phone: ??[phone] Authorizing ProviderResult TypeResult StatusJona RAYA BLOOD ORDERABLESFinal ResultPerforming OrganizationAddressCity/State/ZIP CodePhone Number [facility] * Iron and TIBC (06/10/2025 10:16 AM EDT)ComponentValueRef RangeTest Method Analysis TimePerformed AtPathologist SignatureIron Bind.Cap.(TIBC)381087 - 450 ug/eMCHPHOQHRBHG434466 - 425 ug/gDZAPBNTOYeoi41882 - 159 ug/dLLABCORPIron Dbgigdqvbc4598 - 55 %[facility]PSpecimen (Source)Anatomical Location / Laterality Collection Method / VolumeCollection TimeReceived TimeBloodVenous blood specimen / Mameagb6206/10/2025 10:16 AM EDT06/10/2025 Narrative [facility] - 06/11/2025 6:07 AM EDT Performed at: 02 - [address], [place], [place] ??[id number] Retail Business Analyst: Roland Martinez PhD, Phone: ??[phone] Authorizing ProviderResult TypeResult StatusJona Henley MDLAB BLOOD ORDERABLESFinal ResultPerforming OrganizationAddressCity/State/[facility] CodePhone Number [facility] * CBC and differential (06/10/2025 10:16 AM EDT)ComponentValueRef RangeTest MethodAnalysis TimePerformed AtPathologist SignatureWBC4.73.4 - 10.8 x10E3/uL LABCORPRBC4.693.77 - 5.28 x10E6/wCKZAJIIPYpg30.611.1 - 15.9 g/jTHXCALRQTtu35.6 34.0 - 46.6 %GDCQRUTFLU7479 - 97 kCIVNRQRTJKS19.126.6 - 33.0 lyNXCIKCBPTFD68.5 31.5 - 35.7 g/wFIOREGSUOEF44.211.7 - 15.4 %NISYBTNJkchsjwfk818359 - 450 x10E3/oDTZCECETRnowkmiudtw74Cua Estab. %MDCANBEYdagsj31Qvz Estab. %[facility] Plwvegmrm7Xcx Estab. %ZEOXIGDEnb8Kts Estab. %UWZELYCJmiog0Ylu Estab. %[facility] Neutrophils Abs3.11.4 - 7.0 x10E3/uLLABCORPLymphs Abs1.30.7 - 3.1 x10E3/uL L[facility]PMonocytesAbs0.30.1 - 0.9 x10E3/uLLABCORPEos Abs0.00.0 - 0.4 x10E3/uL [facility]PBaso Abs0.00.0 - 0.2 x10E3/uLLABCORPImmature Icdictlvmdzj2Eto Estab. % LABCORPImmature Grans Abs0.00.0 - 0.1 x10E3/uLLABCORPSpecimen (Source) Anatomical Location / LateralityCollection Method / VolumeCollection Time Received TimeBloodVenous blood specimen / Ocidrkp9206/10/2025 10:16 AM EDT 06/10/2025 Narrative [facility] - 06/11/2025 6:07 AM EDT Performed at: [address], [address], [place] ??[id number] Retail Business Analyst: Shaw Raygoza MD, Phone: ??[phone] Authorizing ProviderResult TypeResult StatusJona Henley MDLAB BLOOD ORDERABLESFinal ResultPerforming OrganizationAddressCity/State/[facility] CodePhone Number [facility] * Ferritin (06/10/2025 10:16 AM EDT)ComponentValueRef RangeTest MethodAnalysis TimePerformed AtPathologist SxpufzsyzTzdugioy6477 - 150 ng/mLLABCORPSpecimen (Source)Anatomical Location / LateralityCollection Method / VolumeCollection TimeReceived TimeBloodVenous blood specimen / Jxgynpw7006/10/2025 10:16 AM EDT 06/10/2025 Narrative [facility] - 06/11/2025 6:07 AM EDT Performed at: [address] ??[id number] Retail Business Analyst: Roland Martinez PhD, Phone: ??[phone] Authorizing ProviderResult TypeResult StatusJona Henley MDLAB BLOOD ORDERABLESFinal ResultPerforming OrganizationAddressty/State/[facility] CodePhone Number [facility] * Lupus anticoagulant (06/10/2025 10:14 AM EDT)ComponentValueRef RangeTest MethodAnalysis TimePerformed AtPathologist SignaturePTT-LA HEJTPX67.00.0 - 43.5 secLABCORPDRVVT UMLSJX87.00.0 - 47.0 secLABCORPLUPUS ANTICOAGULANT Comment:[facility]ABCORPComment:No lupus anticoagulant was detected.Specimen (Source) Anatomical Location / LateralityCollection Method / VolumeCollection Time Received TimeBloodVenous blood specimen / Mjvdmcp1906/10/2025 10:14 AM EDT 06/10/2025 Narrative [facility] - 06/11/2025 3:07 PM EDT Performed at: 01 - [address] ??[id number] Retail Business Analyst: Arnold Garcia MD, Phone: ??[phone] Authorizing ProviderResult TypeResult StatusJona Henley MDLAB BLOOD ORDERABLESFinal ResultPerforming OrganizationAddressCity/State/ZIP CodePhone Number [facility] * hCG, quantitative (06/10/2025 10:14 AM EDT)ComponentValueRef RangeTest Method Analysis TimePerformed AtPathologist SignaturehCG Beta Subunit Qn<1mIU/mL LABCORPComment: ? Female (Non-) ?0 - ? 5 ?(Postmenopausal) ??0 - ? 8 ? Female () ? Weeks of Gestation ? 3 ?6 - ?71 ? 4 ? 10 - ?? 750 ? 5 ?217 - ??4838 ? 6 ?158 - 65427 ? 7 ? 3697 -276169 ? 8 ?78393 -363821 ? 9 ?60722 -620978 ?10 ?13565 -077293 ?12 ?26187 -866335 ?14 ?30311 - 66387 ?15 ?79741 - 05998 ?16 ? 9040 - 43111 ?17 ? 8175 - 46476 ?18 ? 8099 - 54094 [facility] ECLIA methodology Specimen (Source)Anatomical Location / LateralityCollection Method / Volume Collection TimeReceived TimeBloodVenous blood specimen / Ooaxanv8906/10/2025 10:14 AM EDT06/10/2025 Narrative [facility] - 06/11/2025 3:07 PM EDT Performed at: - [facility] [address], [address], [place], [place] ??[id number] Retail Business Analyst: Shaw Raygoza MD, Phone: ??[phone] Authorizing ProviderResult TypeResult StatusJona Henley MDLAB BLOOD ORDERABLESFinal ResultPerforming OrganizationAddressCity/State/ZIP CodePhone Number [facility] * US pelvis transvaginal (06/06/2025 9:06 AM EDT)Anatomical RegionLaterality ModalityPelvisUltrasoundStudy GAStudy DateStudy EDDWorking CHERYL (Source) 06/06/2025Specimen (Source)Anatomical Location / LateralityCollection Method / VolumeCollection TimeReceived Time Narrative 06/16/2025 9:51 AM EDT Images from the original result were not included. ?? Obstetrics & Gynecology ? [address] ? [address] ? [address] ?[address], [facility] [address] ? [place] [address] [place] [address] ? - - - - - - [...] - - Pelvic Ultrasound Patient name: Charis Clarklizzy : 2000 (24 y.o.) Date of exam: [...] - - Ordering/Reading Provider: Jona Henley M.D. ??Fixture Builder: LETI Authorizing ProviderResult TypeResult StatusJona Henley MDIMG US PROCEDURES Final Result from Last 3 Months Additional Health Concerns Active ProblemsNoted DateDiagnosed DateOB Rutyztwmq51/10/2025 Insurance Care Teams Team MemberRelationshipSpecialtyStart DateEnd Date Pete Thapa DO [address] [place] [address] PCP - GeneralFamily Medicine02/14/23
--- OUTSIDE RECORDS SUMMARY | 2025-09-02 06:33 | XMS_ITS | Encounter Summary ---
Author Organization [employer] tem Address [id number] [place] [address] Care Team Providers Care Ruby Software Developer Name Role Phone Alanis Sky DO, George R Primary Care Provider + Encounter Details DateTypeDepartmentCare Team (Latest Contact Info)Srzzowtnlzn66/20/2025Travel Social History Tobacco UseTypesPacks/DayYears UsedDateSmoking Tobacco: NeverSmokeless Tobacco: NeverAlcohol UseStandard Drinks/WeekCommentsYes0 (1 standard drink = 0.6 oz pure alcohol)q 1x per monthAH UtilitiesAnswerDate RecordedIn the past 12 months has the electric, gas, oil, or water company threatened to shut off services in your home?No02/27/2025PHQ-2AnswerDate RecordedTotal Ymbxs5303PRAPARE - TransportationAnswerDate RecordedIn the past 12 months, [...] a part of a household?No5ChildcareAnswerDate RecordedChildcareUnknown 03/14/2019EmploymentAnswerDate TbcjjlhaTmqnfozdnrThijuxu64/06/2019Hunger ScreeningAnswerDate RecordedWithin the past 12 months we worried whether our food would run out before we got money to buy more.Never True08/28/2025Within the past 12 months the food we bought just didn't last and we didn't have money to get more.Never True08/28/2025Purpose - LifeAnswerDate RecordedPurpose and direction in yznrVpmefrc04/11/2021CommentsYesSex and Gender Information ValueDate RecordedSex Assigned at JgpwbLdjksq41/07/2022 3:03 PM ESTLegal Sex Cavffk5303/03/2017 7:57 AM EDTGender TfupixfeEpgnha71/07/2022 3:03 PM ESTSexual OrientationNot on filedocumented as of this encounter Plan of Treatment DateTypeDepartmentCare Team (Latest Contact Info)Uavggcapuqq14/22/2025 4:00 PM ESTTelemedicine [facility] Department of [facility] [address] [facility] [address] [place] [address] Bari Caro MD [address] [facility] [address] [facility] [address] [place] [address] 11/06/2025 3:15 PM ESTOffice Visit [facility] [address] [facility] [address] [place] [address] Saida Rai, PA-C [address] [facility] [address] [place] [address] documented as of this encounter [...] Thapa Jr., DO [address] [facility] [address] [place] [id number] PCP - GeneralFamily Rcfctznk42/18/25documented as of this encounter
[2025-09-02 07:04] LABS: Glucose Urine UA NEGATIVE (NEGATIVE)
[2025-09-02 07:17] LABS: Cast Seen? NONE SEEN #/LPF (NONE SEEN); Crystals Seen? Seen #/HPF (None Seen); Urine Culture Indicated NO
[2025-09-02] MEDS: ACETAMINOPHEN 160 MG/5 ML ORAL.SUSP 650 MG PO (07:19)
[2025-09-02] MEDS: DEXTROSE 5%-LACTATED RINGERS 1,000 ML 150 ML IV (07:22)
--- NOTE | 2025-09-02 08:38 | ED_ITS ---
HPI HPI - General Adult General Chief complaint: Nausea/Vomiting/Diarrhea Stated complaint: 13 WKS ; VOMITING, ABDOMINAL PAIN Time Seen by Provider: 09/02/25 05:31 Source: patient Mode of arrival: Wheelchair History of Present Illness HPI narrative: 24-year-old female initially seen by Dr. Leon and signed out to me after discussing the case with her thoroughly. Please see her full history and physical exam. Related Data Home Medications ?Medication ?Instructions ?Recorded ?Confirmed 09/02/25 ondansetron HCl 4 mg tablet 4 mg PO Q8H 09/02/2509/02 Previous Rx's ?Medication ?Instructions ?Recorded ondansetron 4 mg disintegrating 4 mg PO Q6H PRN nausea and 09/02/25 tablet vomiting #20 tabs Allergies Allergy/AdvReac Type Severity Reaction Status Date / Time doxycycline Allergy Unknown Verified 09/02/25 05:34 Penicillins Allergy Unknown Verified 09/02/25 05:34 Opioid HPI Opioid Management Most Recent Opioid Data: Last Pain Scale 10 Today, 07:19 Last MAR Pain Assessment Today, 07:19 PFSH PFSH Social History Little interest or pleasure in doing things: not at all Feeling down, depressed, or hopeless: not at all Exam Constitutional Vital Signs, click to edit/add: Last Vital Signs Temp 97.8 F 09/02/25 05:36 Pulse 72 09/02/25 05:36 Resp 18 09/02/25 05:36 BP 119/73 09/02/25 05:36 Pulse Ox 99 09/02/25 05:36 O2 Del Method Room Air 09/02/25 05:36 Course Vital Signs Vital signs: Vital Signs Temperature 97.8 F 09/02/25 05:36 Pulse Rate 72 09/02/25 05:36 Respiratory Rate 18 09/02/25 05:36 Blood Pressure 119/73 09/02/25 05:36 Pulse Oximetry 99 09/02/25 05:36 Oxygen Delivery Method Room Air 09/02/25 05:36 Temperature 97.8 F 09/02/25 05:36 Pulse Rate 72 09/02/25 05:36 Respiratory Rate 18 09/02/25 05:36 Blood Pressure 119/73 09/02/25 05:36 Pulse Oximetry 99 09/02/25 05:36 Oxygen Delivery Method Room Air 09/02/25 05:36 Medical Decision Making MDM Narrative Medical decision making narrative: Blood work and urinalysis are unremarkable. She is feeling improved with IV fluids and is discharged home with a prescription for Zofran. Treatment magaly gnosis and follow-up were discussed with the patient. Differential Diagnosis Differential Diagnosis: Gastroenteritis, dehydration, nausea and vomiting Lab Data Lab results reviewed: Yes I reviewed the patient's lab results Labs: Lab Results 09/02/25 09/02/25 Range/Units 05:45 06:40 WBC 11.3 H (4.0-11.0) 10^3/uL RBC 4.29 (4.20-5.40) 10^6/uL Hgb 13.3 (12.0-16.0) g/dL Hct 38.8 (36.0-48.0) % MCV 90.4 (81.0-99.0) fL MCH 31.0 (26.7-34.0) pg MCHC 34.3 (29.9-35.2) g/dL RDW 12.6 (11.0-15.0) % Plt Count 210 (150-450) 10^3/uL MPV 9.7 (9.5-13.5) fL Neut % (Auto) 84.3 H (43.0-75.0) % Lymph % (Auto) 10.7 L (20.5-60.0) % [place] % (Auto) 4.2 (1.7-12.0) % Eos % (Auto) 0.2 L (0.9-7.0) % Baso % (Auto) 0.2 (0.2-2.0) % Neut # (Auto) 9.5 H (1.4-6.5) 10^3/uL Lymph # (Auto) 1.2 (1.2-3.8) 10^3/uL [place] # (Auto) 0.5 (0.3-0.8) 10^3/uL Eos # (Auto) 0.0 (0.0-0.7) 10^3/uL Baso # (Auto) 0.0 (0.0-0.1) 10^3/uL Abs Immat Gran (auto) 0.05 H (0.00-0.03) 10^3/uL Imm/Tot Granulo (auto) 0.4 (0.0-0.5) % Sodium 139 (136-145) mmol/L Potassium 3.7 (3.5-5.1) mmol/L Chloride 103 (98-107) mmol/L Carbon Dioxide 25.7 (21.0-32.0) mmol/L Anion Gap 14.0 BUN 12.0 (7.0-18.0) mg/dL Creatinine 0.65 (0.55-1.02) mg/dL Est GFR ( Amer) >60 (>=60 mL/min/1.73m^2) Est GFR (Non-Af Amer) >60 (>=60 mL/min/1.73m^2) BUN/Creatinine Ratio 18.5 Glucose 102 (74-106) mg/dL Calcium 8.6 (8.5-10.1) mg/dL Total Bilirubin 0.9 (0.2-1.0) mg/dL AST 20 (15-37) U/L ALT 32 (14-59) U/L Alkaline Phosphatase 62 (46-116) U/L Total Protein 6.8 (6.4-8.2) g/dL Albumin 3.4 (3.4-5.0) g/dL Globulin 3.4 g/dL Albumin/Globulin Ratio 1.0 Urine Color Yellow (YELLOW) Urine Clarity Clear (CLEAR) Urine pH 7.0 (5.0-9.0) Ur Specific [place] 1.020 (1.005-1.025) Urine Protein Negative (NEG/TRACE) mg/dL Urine Glucose (UA) Negative (NEGATIVE) mg/dL Urine Ketones Negative (NEGATIVE) mg/dL Urine Occult Blood Negative (NEGATIVE) Urine Nitrite Negative (NEGATIVE) Urine Bilirubin Negative (NEGATIVE) Urine Urobilinogen 0.2 (0.2-1.0) EU/dL Ur Leukocyte Esterase Negative (NEGATIVE) Urine RBC None seen (0-2) #/HPF Urine WBC None seen (NONE SEEN) #/HPF Ur Squamous Epith Cells Few A (NONE/RARE) #/LPF Urine Crystals Seen A (None Seen) #/HPF Amorphous Sediment Rare Urine Bacteria Trace A (NONE SEEN) #/HPF Urine Casts None seen (NONE SEEN) #/LPF Urine Mucus None seen (NONE SEEN) Ur Culture Indicated? No Discharge Plan Discharge Chief Complaint: Nausea/Vomiting/Diarrhea Clinical Impression: Gastroenteritis Patient Disposition: Home, Self-Care Time of Disposition Decision: 08:37 Mode of Transportation: Private Vehicle Prescriptions / Home Meds: New ondansetron 4 mg tablet,disintegrating 4 mg PO Q6H PRN (Reason: nausea and vomiting) Qty: 20 0RF No Action ondansetron HCl 4 mg tablet 4 mg PO Q8H tablet Print Language: Indonesian Instructions: Gastroenteritis (ED), Acute Nausea and Vomiting (ED) Referrals: Diane ROJAS [Primary Care Provider, Family Practice] - 1 week
== END 2025-09-02 09:20 | disposition home or self-care (01) ==
PROVIDERS: Emergency Medicine; Emergency Provider Emergency Medicine; PCP Family Medicine
DX: O99.611 Diseases of the digestive system complicating pregnancy, first trimester (principal); K52.9 Noninfective gastroenteritis and colitis, unspecified; Z3A.13 13 weeks gestation of pregnancy
CPT/HCPCS: 36415; 80053; 81001; 85025; 96361; 96374; 96375; 96376; 99284; J2405; J3490